=== PATIENT | male | born 1960 | race Caucasian/White ===

== ENCOUNTER 2017-10-01 12:05 | Day surgery (SDC) | payer OTHER, SELFPAY ==
--- NOTE | 2017-10-01 | HEM_PTH ---
PATIENT: SALBADOR [place]AR[place]WORTH [place] [facility] [id number] AGE/SX: 56/M ROOM: RE10/01/[address]: Dr. Bruno Parra MD : 1960 BED: DIS: 10/01/2017 SPEC #: [id number] RECD: 10/01/17 11:13 STATUS: KITTY ZULMA #: [id number] [place]: 10/01/17 00:[address]: Bruno Parra DEPT: SURGICAL PATHOLOGY RECD BY: Jose العلي ENTERED: 10/07/17 11:13 SP TYPE: HEMORRHOID OTHR DR: Dr. Kenroy Larry MD Tissues: HEMORRHOIDS Procedures: Surgery Specimen Level III HEADER OPERATION: EUA, hemorrhoidectomy PRE-OP DIAGNOSIS: Left lateral anorectal pain, rectal bleeding TISSUE SUBMITTED: Left posterior hemorrhoid MICROSCOPIC DIAGNOSIS Left posterior hemorrhoid, hemorrhoidectomy: Submucosal vascular ectasia and thrombosis consistent with hemorrhoid. AM:isiah 10/09/17 MICROSCOPIC DESCRIPTION Slides are reviewed. GROSS DESCRIPTION Received in fixative is one container labeled with the patient's name and designated hemorrhoid. The specimen consists of a piece of vazquez mucosal tissue measuring 3 x 2 x 1.5 cm. Sections reveal congested and hemorrhagic cut surfaces. Pipe And Test Supervisor sections are submitted in one cassette. / SJ:isiah 10/04/17 TC:5 CPT: 01324
[2017-10-01 12:42] VITALS: BP 135/70; PULSE 66; RESP 16; TEMP 36.7; O2SAT 99; BMI 21.9
[2017-10-01] MEDS: Dibucaine 30 GM Tube 1 APPLIC (16:44)
[2017-10-01] MEDS: Bupivacaine Mpf 0.5% 30 ML VIAL (17:35)
[2017-10-01 17:50] VITALS: BP 135/70; BP 152/80; PULSE 70; RESP 16; TEMP 36.8; O2SAT 94
--- NOTE | 2017-10-01 17:59 | PCM.OPRPT ---
Report of Operation Date of Procedure: 10/01/17 Pre-Operative Diagnosis: anal pain, rectal bleeding Post-Operative Diagnosis: left posterior mixed hemorrhoid Surgery/Procedure Performed:: examination under anesthesia, left posterior hemorrhoidectomy research hydrologist: None Type of Anesthesia:: General Anesthesiologist: Matheus Granados - ASA2 Specimen's removed: left post hemorrhoid Estimated Blood Loss (mL): 100 Fluids Replaced: 1000 Description of Procedure: The patient was brought to the operating suite. Sign in was performed verifying patient, site, procedure, position, and DVT prophylaxis with SCDs. Patient received 2.0gm of Cefotetan for antibiotic prophylaxis. Following induction of general anesthetic. The patient was transferred to supine position to the prone jackknife position with care being taken to avoid pressure points. The patients perineal area was then prepped and draped in the usual fashion. Timeout was performed verifying patient site procedure position. External examination demonstrated prolapsing hemorrhoidal tissue with an ulcerated hemorrhoidal complex is likely drained a thrombosed hemorrhoid in the left posterior position. Bi-digital exam demonstrated significant hemorrhoid with prolapsing mucosa in this left posterior quadrant and no other palpable abnormalities - specifically, no other hemorrhoidal thromboses, no inflammation or masses consistent with an undrained abscess Local anesthetic was injected around the planned excision site. The limit of the resection was marked on the lateral anoderm with a hemostat, the hemorrhoidal main complex was grasped with a Ibarra clamp and the apex grasped with a small hemostat. A scalpel was used to start the dissection on the lateral anoderm and dissection carried to the dentate line. At this point, the sphincter complex was dissected off the hemorrhoid to avoid sphincter injury bluntly. Electrocautery was then used to dissect the hemorrhoid proximal to the dentate line. A 2-0 chromic aascso-sk-uhokm suture was placed above the apex of the proximal resection. The hemorrhoidal complex transected. . The defect was then closed with a running locking suture. The dentate line transition to a simple suture. With good hemostasis, half percent Marcaine was injected in the perianal skin and dibucaine impregnated Gelfoam was placed in the anal canal. A dressing was applied and mesh pants were used to hold the dressing in place. The patient was returned to the supine position and extubated and brought to recovery room in stable condition.
[2017-10-01 18:00] VITALS: BP 135/70; BP 135/73; PULSE 70; RESP 16; O2SAT 93
--- NOTE | 2017-10-01 18:03 | DCINST_ITS ---
Discharge Diet: No Restrictions Discharge Activity: Return to Normal Activity, May Not Drive - while taking narcotic pain medications. Additional Activity Instructions:: Do not drive or work with heavy equipment or sign legal documents for 24 hours. Be aware that pain medications may cause nausea. You should typically eat light foods as you take your pain medications. Pain medications may also cause constipation, if you have difficulty with this please discuss with your doctor. Additional Dressing/Incision Instructions:: Leave the operative bandage on for 2 days. If a local anesthetic plug was placed in the anal area, try not to expel for 24-[address] dibucaine ointment on the perianal area as needed. Sitz baths twice daily and after bowel movements. Allergies/Adverse Reactions: Allergies No Known Allergies Allergy (Verified 10/01/17 08:41) Medications to take at Discharge Atorvastatin Calcium [Lipitor] 20 mg PO QHS 09/17/15 Nifedipine [Nifedipine ER] 30 mg PO DAILY 09/17/15 Hydrocodone Bitart/Apap 5-325 [[place] 5/325] 1 - 2 tab PO Q6H PRN PRN 7 Days #20 tab 10/01/17 Lorazepam [Ativan] 1 mg PO QHS 10/01/17 Omeprazole 10 mg PO PRN PRN 10/01/17 The following prescriptions were given: Hydrocodone Bitart/Apap 5-325 [[place] 5/325] 1 - 2 tab PO Q6H PRN PRN 7 Days #20 tab PRN Reason: Mild-Moderate Pain (1-5/10) Primary Care Physician: Kenroy Larry MD [Primary Care Provider] - Please Follow Up With: Bruno Parra MD - [phone] When: Plan to have a follow up approximately 7 days after surgery.
[2017-10-01 18:15] VITALS: BP 135/70; BP 177/87; PULSE 69; RESP 16; O2SAT 99
[2017-10-01 18:31] VITALS: BP 135/70; BP 165/86; PULSE 75; RESP 16; TEMP 36.7; O2SAT 96
[2017-10-01] MEDS: HYDROcodone Bitartrate/Apap 5/325 Tablet PO (18:31)
[2017-10-01] MEDS: Ketorolac 30 MG/ML Syringe IV (19:03)
[2017-10-01 19:54] VITALS: BP 135/70; BP 142/72; PULSE 73; RESP 16; TEMP 37.2; O2SAT 94
== END 2017-10-01 20:04 | disposition home or self-care (01) ==
LOC: SDC 12:06 → AC 12:07
PROVIDERS: Family Provider Family Medicine; PCP Family Medicine; Visit Provider Surgery
PROC: (CPT 46250; principal; 2017-10-01 15:15)
DX: K64.8 Other hemorrhoids (principal); E78.00 Pure hypercholesterolemia, unspecified; Z79.899 Other long term (current) drug therapy; K21.9 Gastro-esophageal reflux disease without esophagitis; G43.909 Migraine, unspecified, not intractable, without status migrainosus; L40.9 Psoriasis, unspecified; F17.210 Nicotine dependence, cigarettes, uncomplicated
CPT/HCPCS: 00902; 46250; 88304; J7120; J2405

== ENCOUNTER → 2019-02-20 10:37 | Outpatient (CLI) | payer OTHER, SELFPAY ==
--- NOTE | 2019-02-20 10:40 | RAD_ITS ---
STUDY: X-RAY - LUMBAR SPINE REASON FOR EXAM: Male, 58 years old. Low back pain TECHNIQUE: 2 view(s) of the lumbar spine were obtained. COMPARISON: None FINDINGS: Normal lumbar lordosis. There is no substantial scoliosis. There is a normal alignment of the vertebrae. Normal vertebral bodies and endplates. Mild to moderate narrowing of the disc at L5-S1 otherwise normal disc space heights. There is no demonstrated fracture. The soft tissue structures are unremarkable. RAD/Lumbar Spine 2 or 3 Views IMPRESSION: Limited 2 view study of the lumbar spine shows no acute abnormalities. Mild to moderate narrowing of the disc at L5-S1. Electronically Signed: Leroy Mcgill MD at 22:55 EDT , Service support ,
== END ==
LOC: RAD 10:39
PROVIDERS: Family Provider Family Medicine; PCP Family Medicine; Referring Provider Anesthesiology Pain Medicine; Visit Provider Anesthesiology Pain Medicine
DX: M54.9 Dorsalgia, unspecified (principal)
CPT/HCPCS: 72100

== ENCOUNTER 2019-11-22 16:30 | Outpatient (RCR) | payer OTHER, SELFPAY ==
--- NOTE | 2019-11-08 12:55 | HP.PTEVAL_ITS ---
Patient's Visit Information SALBADOR FARNSWORTH is a 58 year old M referred to Physical Therapy by ARCELIA MCKEON with a diagnosis of vertigo with migranines. Date of Evaluation: 11/08/19 Physical Therapist: LALY Finnegan - Visit Plan Frequency: 2x /Week Duration: 3 Weeks Plan: 2X/ week for 2-3 weeks for c-spine MT to mid trap, levator and subocip, trial of c-spine traction with possible US with HEPwith postural exercises. See if the MT helps with the decrease in eleanor of dizzy spells and migranes - Subjective Pt has been getting migranine PASTOR that he has had for years but now getting dizzy spells. His vision started messing with him and he started to get blury vision and in a sweat. He went to get out of the car and he was moving all over the place. He has been getting PASTOR between his eyes. Everytime afer the dizzy spells he gets a migrane and he gets tired after.... He can be walking down the hallways and he feels like he is spinning. He has been getting mild cases almost everyday. They last a couple of minutes but he gets anxious about. He is not on migrane meds.... He has seen a neurologist and they put him on the meds for one day and he got a rash from it and he is to stay off of it for 1 week and then they will put him on something else. Dr Larry thinks this is coming from the migraines. He will go on a different med in about a week from now. He is still itching from the rash. On the way here he was driving he could feel something from between his eyes and feel like his neck was tightening up. He is wondering if he is starting to have an anxiety issue. R sided neck pain from time to time and up into the occiput... not sure if it is stress or what. - Pain PASTOR Pain Intensity (Out of 10): 2 - Objective R handed: R 95# and L 75#. Smooth pursuit horizontal... increase head pressure after 30 sec.. possible slight fatigue at the end. Smooth pursuit vertical... goood tracking.... he could feel a pressure at the top of his head after 30 seconds. Vor X 1 horizontal: no dizziness. VOR X1 vertical: No dizziness. Neck AROM: flex 100%, Ext 25%, SB B 50%, Rot R 100% and Rot L 75%. UE AROM: Full B shoulder AROM. UE MMT: Shld flx, abd, ER and IR 4/5 B. Palpation: Tender over the R occiput.... Very tight mid trap and levator B. FGA 28/30. CATSIB 120/120 - Balance Scores Functional Gait Assessment Score: 28 % Disability: 6.6700 CATSIB Score (Max score 120 seconds): 120 - Goals Goal 1:: I HEP Goal Time Frame: 4-6 Weeks Goal 2:: Increase c-spine AROM by 25% where avaiaable (at time of eval: Neck AROM: flex 100%, Ext 25%, SB B 50%, Rot R 100% and Rot L 75%) Goal Time Frame: 4-6 Weeks Goal 3:: Decrease freq of dizziness spells from daily to 2 X/ week Goal Time Frame: 4-6 Weeks Goal 4:: Decrease neck tightess thomas the R by 50% per subjective Goal Time Frame: 4-6 Weeks - Rehabilitation Potential Rehabilitation Potential: Good - Anticipated Interventions Patient/Client Instruction: Educate patient on: Condition, Plan of Care For the Purpose of:: To decrease pain, To increase ROM, To improve nutrient delivery to tissue, To improve muscle performance and motor function, To improve ability to perform ADL's, To increase tolerance to activity/condition/position, To decrease soft tissue restriction, To increase flexibility/ROM Therapeutic Exercise to Include: Strength training, Postural training, Flexibilty training, Passive ROM, Active ROM, Scapular Strength/Stabilization For the Purpose of:: To decrease pain, To increase ROM, To improve nutrient delivery to tissue, To improve muscle performance and motor function, To improve ability to perform ADL's, To increase tolerance to activity/condition/position, To improve performance and independence with ADL's, To improve health of tissue, To increase flexibility/ROM Manual Therapy Techniques to Include: Passive ROM, Soft tissue mobilization For the Purpose of:: To decrease pain, To decrease swelling/inflammation, To increase ROM, To improve nutrient delivery to tissue, To decrease soft tissue restriction, To increase flexibility/ROM Ultrasound (thermal/non thermal): Yes Intermittent cervical traction: Yes For the Purpose of:: To decrease pain, To decrease swelling/inflammation, To increase ROM, To improve nutrient delivery to tissue, To improve health of tissue, To increase flexibility/ROM Thank you for the opportunity to evaluate your patient. For Medicare and Medicare HMO plans, please review the plan of care and approve it. It will need to be FAXED BACK to us at [phone] for Medicare purposes. For Medicare only, by signing this I certify the plan of care. Please let me know if there are questions or concerns regarding this plan of care. Physician Signature: _Date:
--- NOTE | 2020-01-31 11:41 | HP.PT.NRP ---
SALBADOR FARNSWORTH was seen in my office for initial evaluation on 11/08/19. The following Plan of Care was established for this patient: Initial Frequency: 2x /Week Initial Duration: 3 Weeks Patient/Client Instruction: Educate patient on: Condition, Plan of Care For the Purpose of:: To decrease pain, To increase ROM, To improve nutrient delivery to tissue, To improve muscle performance and motor function, To improve ability to perform ADL's, To increase tolerance to activity/condition/position, To decrease soft tissue restriction, To increase flexibility/ROM Therapeutic Exercise to Include: Strength training, Postural training, Flexibilty training, Passive ROM, Active ROM, Scapular Strength/Stabilization For the Purpose of:: To decrease pain, To increase ROM, To improve nutrient delivery to tissue, To improve muscle performance and motor function, To improve ability to perform ADL's, To increase tolerance to activity/condition/position, To improve performance and independence with ADL's, To improve health of tissue, To increase flexibility/ROM Manual Therapy Techniques to Include: Passive ROM, Soft tissue mobilization For the Purpose of:: To decrease pain, To decrease swelling/inflammation, To increase ROM, To improve nutrient delivery to tissue, To decrease soft tissue restriction, To increase flexibility/ROM Ultrasound (thermal/non thermal): Yes Intermittent cervical traction: Yes For the Purpose of:: To decrease pain, To decrease swelling/inflammation, To increase ROM, To improve nutrient delivery to tissue, To improve health of tissue, To increase flexibility/ROM This patient was last seen in our office 11/22/19. Pertinent comments regarding their Physical therapy will appear below: DC PT... Pt no showed for his last appointment At this point I will be discontinuing this patient from physical therapy. I would be happy to see this patient again in the future if found appropriate by the physician. Thank you! Radha Jiménez, MPT
== END 2019-11-22 19:00 | disposition home or self-care (01) ==
LOC: PT 16:30
PROVIDERS: PCP Family Medicine
DX: G43.719 Chronic migraine without aura, intractable, without status migrainosus (principal); R42 Dizziness and giddiness
CPT/HCPCS: 97035; 97140; 97161

== ENCOUNTER 2020-07-09 23:20 | Outpatient (RCR) | payer OTHER, SELFPAY ==
[2020-07-09] MEDS: COVID-19 VACC, MRNA(PFIZER)/PF 30 MCG/0.3 ML SYRINGE IM (18:57)
[2020-07-30] MEDS: COVID-19 VACC, MRNA(PFIZER)/PF 30 MCG/0.3 ML SYRINGE IM (18:31)
== END 2020-10-08 23:59 ==
LOC: IMMUN 23:20
PROVIDERS: PCP Family Medicine; Visit Provider Family Medicine
DX: Z23 Encounter for immunization (principal)
CPT/HCPCS: 0001A; 0002A; 91300

== ENCOUNTER 2020-09-20 15:42 | Emergency (ER) | payer OTHER, SELFPAY ==
[2020-09-20 15:43] VITALS: BP 124/73; PULSE 88; RESP 16; TEMP 37.2; O2SAT 98; BMI 22.6
--- NOTE | 2020-09-20 16:04 | CT_ITS ---
STUDY: CT ABDOMEN AND PELVIS WITH CONTRAST REASON FOR EXAM: Male, 59 years old. Abdominal pain -- IV PO Contrast RADIATION DOSAGE (If Supplied By Facility): CTDIvol = ( 12.14 ) mGy, DLP = ( 738.26 ) mGycm TECHNIQUE: Transaxial images were obtained from the dome of the diaphragm to the symphysis pubis with oral contrast. Oral and amp; IV Gastrografin and amp; 100mL Isovue-300 was administered. Sagittal and coronal images were reconstructed. Individualized dose optimization techniques were used for this CT. COMPARISON: None. FINDINGS: The visualized lung bases are unremarkable. The visualized portions of the heart are within normal limits. Normal liver. Normal gallbladder and extrahepatic biliary system. Normal spleen. Normal pancreas. Normal bilateral adrenal glands. Normal right kidney. Normal left kidney with incidental 1.2 cm mid renal cyst. Normal visualized stomach. Normal small intestine. There is acute diverticulitis of the sigmoid colon with perisigmoid stranding and possibly tiny microperforations. No gross abscess. There is probable secondary inflammation of the horizontal portion of the duodenum which is adjacent to the sigmoid diverticulitis. The appendix is visualized and appears normal. Normal abdominal aorta. Normal inferior vena cava. Normal retroperitoneum. Normal urinary bladder. There is enlargement of the prostate gland. Normal abdominal wall. Normal osseous structures. CT/Abdomen/Pelvis WITH Contrast IMPRESSION: Acute mid sigmoid diverticulitis possibly with localized perforations. No evidence for abscess. Electronically Signed: Leroy Mcgill MD at 18:07 EDT , Service support ,
--- NOTE | 2020-09-20 16:05 | EDS_ITS ---
HPI History of Present Illness Chief Complaint: Abd Pain Informant: patient Onset/Context/Timing Onset: Yesterday Context: Gradual Onset Current Severity: Mild Maximum Severity: Moderate Narrative Narrative: Patient presents to urgent care secondary to lower abdominal pain. Pain started yesterday. He states his urine stream is weaker than normal. He also has some chronic back pain but is unable to relate if the pain wraps around into his abdomen. Patient did have a urinalysis done at urgent care that did not show any blood in the urine. He was sent here for further evaluation and possible CT scan. [facility] Medical History Arthritis GERD (gastroesophageal reflux disease) Heart murmur Hypertension Polycythemia Psoriasis Home Medications atorvastatin 20 mg PO QHS 09/17/15 [History Last Taken Unknown] nifedipine 30 mg PO DAILY 09/17/15 [History Last Taken Unknown] lorazepam 1 mg PO QHS 10/01/17 [History Last Taken Unknown] omeprazole 10 mg PO PRN PRN 10/01/17 [History Last Taken Unknown] aspirin 81 mg PO DAILY 09/20/20 [History Last Taken Unknown] diltiazem HCl 120 mg PO DAILY 09/20/20 [History Last Taken Unknown] fluoxetine 20 mg PO DAILY 09/20/20 [History Last Taken Unknown] hydroxyzine HCl 25 mg PO QHS 09/20/20 [History Last Taken Unknown] ixekizumab [Taltz Autoinjector] 80 mg SUBCUT QMONTH 09/20/20 [History Last Taken Unknown] meloxicam 15 mg PO DAILY 09/20/20 [History Last Taken Unknown] metronidazole [Flagyl] 500 mg PO Q12H #20 tab 09/20/20 [Rx Last Taken Unknown] oxycodone-acetaminophen [Percocet] 1 tab PO Q6H PRN 3 Days #10 tab 09/20/20 [Rx Last Taken Unknown] rizatriptan 10 mg PO PRN PRN 09/20/20 [History Last Taken Unknown] sulfamethoxazole-trimethoprim [Bactrim DS] 1 tab PO BID #20 tab 09/20/20 [Rx Last Taken Unknown] Allergy/AdvReac Type Severity Reaction Status Date / Time No Known Allergies Allergy Verified 10/01/17 08:41 Social History Smoking Status: Current every day smoker ROS ROS ED Constitutional Constitutional ED: Denies chills or fever(s) Eyes Eyes: Denies change in vision ENT ENT ED: Denies sore throat Cardiovascular Cardiovascular: Denies chest pain Respiratory/Chest Respiratory/Chest: Denies cough or dyspnea Gastrointestinal Gastrointestinal: Reports abdominal pain; Denies diarrhea, nausea or vomiting Genitourinary Genitourinary ED: Denies dysuria Musculoskeletal Musculoskeletal: Reports back pain Integumentary Denies rash Neurologic Neurologic: Denies headache(s) or weakness Psychiatric Psychiatric: Denies anxiety or depression Endocrine Endocrinology: Denies polydipsia or polyuria Allergic/Immunologic Allergic/Immunologic ED: Denies urticaria EXAM Physical Exam Const Vital Signs: 09/20/20 15:43 Temperature 99 F Temperature Source Temporal Pulse Rate 88 Respiratory Rate 16 Blood Pressure 124/73 H Blood Pressure Mean 90 Pulse Ox 98 Oxygen Delivery Method Room Air Positive well nourished and well developed General Appearance ED: well developed HEENT Reports normocephalic and head/scalp atraumatic Eyes PERRL and EOMs intact bilaterally Neck supple Chest Wall inspection of chest normal and palpation of chest normal Resp normal respiratory effort and clear to auscultation bilaterally Cardio regular rate and regular rhythm GI normal to inspection, nondistended, normoactive bowel sounds Palpation: soft and tender LLQ Back/Spine no CVA tenderness Extremity normal to inspection Neuro oriented x3 and no sensory deficits noted Sensorium / Orientation: alert Motor Exam: strength 5/5 throughout Psych mental status grossly normal Skin no rashes or lesions noted MDM MDM MDM Narrative Medical decision making narrative: Patient was given morphine and Zofran for pain and nausea. Blood work is obtained. White count is mildly elevated. CT scan with contrast reveals sigmoid diverticulitis with possibly small microperforations. Lab Data Attestation: I reviewed the patient's lab results. Labs: Laboratory Results - last 24 hr 09/20/20 09/20/20 16:15 16:15 WBC 11.5 H RBC 6.36 H Hgb 15.3 Hct 51.3 MCV 80.7 MCH 24.1 L MCHC 29.8 L RDW Std Deviation 56.9 H RDW Coeff of Eze 21.2 H Plt Count 317 MPV 9.3 Immature Gran % (Auto) 0.500 Neut % (Auto) 84.6 H Lymph % (Auto) 8.6 L Dupage % (Auto) 5.1 Eos % (Auto) 0.6 Baso % (Auto) 0.6 Absolute Neuts (auto) 9.7 H Absolute Lymphs (auto) 0.99 Nucleated RBC % 0 Differential Comment SCANNED Sodium 137 Potassium 3.8 Chloride 105 Carbon Dioxide 28.0 Anion Gap 4 L BUN 14 Creatinine 1.10 Estim Creat Clear Calc 82.65 Est GFR (MDRD) Af Amer 88 Est GFR (MDRD) Non-Af 73 BUN/Creatinine Ratio 12.7 Glucose 99 Calcium 8.9 Radiography Diagnostic Testing: Radiology Impression Abdomen/Pelvis CT 09/20/20 16:04 IMPRESSION: Acute mid sigmoid diverticulitis possibly with localized perforations. No evidence for abscess. Electronically Signed: Leroy Mcgill MD at 18:07 EDT , Service support , Treatment and Re-Evaluation Comments:: Test results are discussed with Dr. Sanford. She reviewed the CT images. She states that if the patient's pain is controllable he could be treated at home after dose of IV Levaquin. He will be treated with Bactrim and Flagyl at home and given strict instructions to follow clear liquid diet. She will see him in the office at 830 on Wednesday morning. If his pain is poorly controlled or if he has any complications over the weekend he is to return for admission. Patient is in agreement with this plan. Discharge Plan Triage Chief Complaint: Abd Pain ED Provider: Ambreen Xavier Dx/Rx/DC Orders Clinical Impression: Diverticulitis Instructions: ED Diverticulitis Prescriptions: New sulfamethoxazole-trimethoprim [Bactrim DS] 800-160 mg tablet 1 tab PO BID Qty: 20 RF: 0 metronidazole [Flagyl] 500 mg tablet 500 mg PO Q12H Qty: 20 RF: 0 oxycodone-acetaminophen [Percocet] 5-325 mg tablet 1 tab PO Q6H PRN (Reason: pain) 3 Days Qty: 10 RF: 0 Discontinued hydrocodone-acetaminophen 1 TABLET tablet 1 - 2 tab PO Q6H PRN PRN (Reason: Mild-Moderate Pain (1-5/10)) 7 Days Qty: 20 RF: 0 No Action atorvastatin 20 MG tablet 20 mg PO QHS RF: 0 nifedipine 30 MG tablet extended release 30 mg PO DAILY RF: 0 omeprazole 10 MG capsule,delayed release(DR/EC) 10 mg PO PRN PRN (Reason: gerd) RF: 0 lorazepam 1 MG tablet 1 mg PO QHS RF: 0 meloxicam 15 mg tablet 15 mg PO DAILY RF: 0 aspirin 81 mg tablet,delayed release (DR/EC) 81 mg PO DAILY RF: 0 diltiazem HCl 120 mg capsule,extended release 24hr 120 mg PO DAILY RF: 0 hydroxyzine HCl 25 mg tablet 25 mg PO QHS RF: 0 Taltz Autoinjector 80 mg/mL auto-injector 80 mg SUBCUT QMONTH RF: 0 rizatriptan 10 mg tablet,disintegrating 10 mg PO PRN PRN (Reason: Migraine Headache) RF: 0 fluoxetine 20 mg capsule 20 mg PO DAILY RF: 0 Primary Care Provider: Kenroy Larry Referrals: Bhargavi Sanford MD [STAFF PHYSICIAN] - 09/23/20 8:30 am Kenroy Larry MD [Primary Care Provider] - Disposition Disposition: Home, self care
[2020-09-20] MEDS: Ondansetron 4 MG/2 ML Vial IV (16:14)
[2020-09-20] MEDS: 0.9% Normal Saline 1,000 ML 150 ML IV (16:14)
[2020-09-20] MEDS: Morphine 4 MG/ML Syringe IV ×2 (16:14→20:40)
[2020-09-20 16:25] LABS: Absolute Lymphocyte Count 0.99 X10^3/uL (0.83-4.51); Absolute Neutrophil Count 9.7 X10^3/uL (2.0-7.7); Basophil# 0.07 X10^3/uL; Basophil% 0.6 % (0-1); Eosinophil# 0.07 X10^3/uL; Eosinophils% 0.6 % (0-5); Hematocrit 51.3 % (40-54); Hemoglobin 15.3 g/dL (13.0-16.5); Lymphocyte # 0.99 X10^3/ul (0.83-4.51); Lymphocyte % 8.6 % (19-41); Mean Corp Hgb Conc 29.8 g/dL (32-36); Mean Corpuscular Hgb 24.1 pg (27.0-32.0); Mean Corpuscular Volume 80.7 fL (80-94); Mean Platelet Vol. 9.3 fl (6.2-12.0); Monocyte# 0.59 X10^3/uL; Monocyte% 5.1 % (0-10); NRBC Flagged by Analyzer 0 % (0-5); Neutrophil % 84.6 % (47-70); POSITIVE MORPHOLOGY YES; Platelet Count 317 K/mm3 (150-450); RBC Distribution Width CV 21.2 % (11.6-14.6); RBC Distribution Width SD 56.9 fl (35.1-43.9); Red Blood Count 6.36 M/mm3 (4.6-6.2); White Blood Count 11.5 K/mm3 (4.4-11.0)
[2020-09-20 16:26] LABS: Differential Indicated SCAN CRITERIA MET
[2020-09-20 16:37] LABS: BUN 14 mg/dL (7-18); Glucose 99 mg/dL (74-106)
[2020-09-20 16:38] LABS: Anion Gap 4 (5-15); BUN/Creat Ratio 12.7 RATIO (10-20); Calcium,Total 8.9 mg/dL (8.5-10.1); Chloride 105 mmol/L (98-107); EST Glomerular Filtration Rate 73 mL/min (>60); Est Glom Filt Rate - Afr Amer 88 mL/min (>60); Estimated Creatinine Clearance 82.65 ml/min; Potassium 3.8 mmol/L (3.5-5.1); Sodium Level 137 mmol/L (136-145)
[2020-09-20 16:45] LABS: Differential Comment SCANNED
[2020-09-20 17:43] VITALS: RESP 16
[2020-09-20] MEDS: oxyCODONE 5 MG Tablet PO (18:45)
[2020-09-20] MEDS: levoFLOXacin IV 750 MG/150 ML BAG 100 MG IV (18:45)
[2020-09-20 19:20] VITALS: BP 136/68; PULSE 78; RESP 16; O2SAT 95
[2020-09-20 20:45] VITALS: PULSE 74; RESP 16; TEMP 37.4; O2SAT 98
== END 2020-09-20 21:11 | disposition home or self-care (01) ==
PROVIDERS: Emergency Provider Emergency Medicine; PCP Family Medicine
DX: K57.32 Diverticulitis of large intestine without perforation or abscess without bleeding (principal); I10 Essential (primary) hypertension; L40.9 Psoriasis, unspecified; K21.9 Gastro-esophageal reflux disease without esophagitis; M19.90 Unspecified osteoarthritis, unspecified site; G89.29 Other chronic pain; Z86.2 Personal history of diseases of the blood and blood-forming organs and certain disorders involving the immune mechanism; Z79.82 Long term (current) use of aspirin; Z79.899 Other long term (current) drug therapy; F17.200 Nicotine dependence, unspecified, uncomplicated
CPT/HCPCS: 74177; 80048; 85025; 96361; 96365; 96366; 96374; 96375; 96376; 99284; J7030; Q9967; A4216; J2405

== ENCOUNTER 2020-11-11 09:59 | Emergency (ER) | payer MEDICAID, SELFPAY ==
[2020-11-11 09:59] VITALS: BP 164/78; PULSE 65; RESP 18; TEMP 36.3; O2SAT 98; BMI 22.1
--- NOTE | 2020-11-11 10:23 | ED.VIS.BACK ---
HPI History of Present Illness Chief Complaint: Back Informant: patient Onset/Context/Timing Onset: Days Timing: Continuous Quality: Sharp and Aching Current Severity: Moderate Maximum Severity: Moderate Associated Symptoms Associated Symptoms: Radiation to Right Leg; Negative for Numbness, Tingling, Radiation to Left Leg, Fever, Abdominal Pain, Dysuria, Unable to Ambulate, Unable to Transfer and Urinary Retention Narrative Narrative: 51-year-old male no severe past medical history. Patient states the last 2 weeks has had low back pain now radiating to his right leg. He was seen by a PA at the [facility] up with him on Flexeril as a muscle relaxant and prednisone. He said he had no relief. In the past he has seen pain management. He denies any prior back surgery. He denies any significant trauma. No weakness. No bowel or bladder incontinence. No fever. Prior similar symptoms: No Recent Illness/Hospitalization: No [facility] Medical History Arthritis GERD (gastroesophageal reflux disease) Heart murmur Hypertension Polycythemia Psoriasis Home Medications atorvastatin 20 mg PO QHS 09/17/15 [History Last Taken Unknown] nifedipine 30 mg PO DAILY 09/17/15 [History Last Taken Unknown] lorazepam 1 mg PO QHS 10/01/17 [History Last Taken Unknown] omeprazole 10 mg PO PRN PRN 10/01/17 [History Last Taken Unknown] aspirin 81 mg PO DAILY 09/20/20 [History Last Taken Unknown] diltiazem HCl 120 mg PO DAILY 09/20/20 [History Last Taken Unknown] fluoxetine 20 mg PO DAILY 09/20/20 [History Last Taken Unknown] hydroxyzine HCl 25 mg PO QHS 09/20/20 [History Last Taken Unknown] ixekizumab [Taltz Autoinjector] 80 mg SUBCUT QMONTH 09/20/20 [History Last Taken Unknown] meloxicam 15 mg PO DAILY 09/20/20 [History Last Taken Unknown] metronidazole [Flagyl] 500 mg PO Q12H #20 tab 09/20/20 [Rx Last Taken Unknown] oxycodone-acetaminophen [Percocet] 1 tab PO Q6H PRN 3 Days #10 tab 09/20/20 [Rx Last Taken Unknown] rizatriptan 10 mg PO PRN PRN 09/20/20 [History Last Taken Unknown] sulfamethoxazole-trimethoprim [Bactrim DS] 1 tab PO BID #20 tab 09/20/20 [Rx Last Taken Unknown] hydrocodone-acetaminophen 1 tab PO Q4H PRN 5 Days #14 tab 11/11/20 [Rx Last Taken Unknown] Allergy/AdvReac Type Severity Reaction Status Date / Time verapamil Allergy Rash Verified 11/11/20 10:02 Social History Smoking Status: Current every day smoker tobacco type: cigarettes ROS ROS ED ROS Narrative Denies. Review of Systems ROS Unobtainable: Denies due to encephalopathy Constitutional Constitutional ED: Denies chills or fever(s) Eyes Eyes: Denies change in vision ENT ENT ED: Denies ear pain or sore throat Cardiovascular Cardiovascular: Denies chest pain or palpitations Respiratory/Chest Respiratory/Chest: Denies dyspnea or sputum Gastrointestinal Gastrointestinal: Denies abdominal pain, constipation, diarrhea, nausea or vomiting Genitourinary Genitourinary ED: Denies dysuria or hematuria Musculoskeletal Musculoskeletal: Reports back pain; Denies arthralgias or myalgias Integumentary Denies abscess or rash Neurologic Neurologic: Denies headache(s) Psychiatric Psychiatric: Denies depression Endocrine Endocrinology: Denies polyuria Hematologic/Lymphatic Hematologic/Lymphatic: Denies easy bruising Allergic/Immunologic Allergic/Immunologic ED: Denies urticaria EXAM Physical Exam Narrative Exam Narrative: Middle-age male complaining of right lower back and right lateral leg pain. Vital signs stable afebrile. Back exam there is no spine tenderness. There is minimal if any right SI joint tenderness. Left is unremarkable. He has worsening pain when he lifts his right leg. He is got normal motor strength to both lower extremities. Full range of motion of both hips knees and ankles. 5 out of 5 dorsi plantar flexion. No cauda equina. Normal medial thigh and lower leg sensation. The pain radiates to the lateral side of his right leg not down his hamstring. There are no signs of muscle spasm. Rest of exam is normal. Abdomen soft and nontender. Const Vital Signs: 11/11/20 09:59 Temperature 97.4 F L Temperature Source Temporal Pulse Rate 65 Respiratory Rate 18 Blood Pressure 164/78 H Blood Pressure Mean 106 Pulse Ox 98 Oxygen Delivery Method Room Air Positive well nourished and well developed General Appearance ED: well developed HEENT Reports moist mucous membranes Negative for trauma or tenderness Eyes PERRL and EOMs intact bilaterally Neck no lymphadenopathy, supple and no JVD General: Negative for tenderness Resp normal respiratory effort and clear to auscultation bilaterally Effort and Inspection: Negative for pain with movement Cardio regular rate, regular rhythm and no murmurs Cardio Narrative: 4-6 systolic murmur. GI normal to inspection, nondistended, normoactive bowel sounds, soft to palpation, non-tender, non-distended and no masses Inspection: Negative for abdominal distention Auscultation: Negative for hyperactive bowel sounds Palpation: Negative for tender, guarding or rebound tenderness present Back/Spine normal to inspection and no thoracic nor lumbar tenderness General Back: Negative for CVA tenderness or scar(s) Cervical Spine: Negative for cervical spine tenderness and Negative for paracervical muscle tenderness Thoracic Spine / Upper Back: Negative for paraspinal muscle tenderness Lumbar Spine / Lower Back: Negative for straight leg raise negative bilaterally Extremity normal to inspection; Negative for no clubbing, cyanosis or edema General Extremety ED: Negative for edema or tenderness General Extremity: Negative for edema Neuro oriented x3 and no sensory deficits noted Sensorium / Orientation: alert; Negative for confused, lethargic or stuporous Motor Exam: strength 5/5 throughout; Negative for strength abnormal Psych mental status grossly normal Skin no rashes or lesions noted and no wounds MDM MDM MDM Narrative Medical decision making narrative: Patient has right lateral back and leg pain. This i will be given an IM injection of Dilaudid and Toradol. Discharged with limited Lenorah and follow-up with pain management. S not specific for sciatica. He has no reproducible soft tissue tenderness this does not appear to be muscle spasms. I do not think imaging is necessary at this time he has had no trauma. Discharge Plan Triage Chief Complaint: Back ED Provider: Cody Hayden Dx/Rx/DC Orders Instructions: ED Back Pain (Acute or Chronic) Prescriptions: New hydrocodone-acetaminophen 5-325 mg tablet 1 tab PO Q4H PRN (Reason: pain) 5 Days Qty: 14 RF: 0 No Action atorvastatin 20 MG tablet 20 mg PO QHS RF: 0 nifedipine 30 MG tablet extended release 30 mg PO DAILY RF: 0 omeprazole 10 MG capsule,delayed release(DR/EC) 10 mg PO PRN PRN (Reason: gerd) RF: 0 lorazepam 1 MG tablet 1 mg PO QHS RF: 0 meloxicam 15 mg tablet 15 mg PO DAILY RF: 0 aspirin 81 mg tablet,delayed release (DR/EC) 81 mg PO DAILY RF: 0 diltiazem HCl 120 mg capsule,extended release 24hr 120 mg PO DAILY RF: 0 hydroxyzine HCl 25 mg tablet 25 mg PO QHS RF: 0 Taltz Autoinjector 80 mg/mL auto-injector 80 mg SUBCUT QMONTH RF: 0 rizatriptan 10 mg tablet,disintegrating 10 mg PO PRN PRN (Reason: Migraine Headache) RF: 0 fluoxetine 20 mg capsule 20 mg PO DAILY RF: 0 sulfamethoxazole-trimethoprim [Bactrim DS] 800-160 mg tablet 1 tab PO BID Qty: 20 RF: 0 metronidazole [Flagyl] 500 mg tablet 500 mg PO Q12H Qty: 20 RF: 0 oxycodone-acetaminophen [Percocet] 5-325 mg tablet 1 tab PO Q6H PRN (Reason: pain) 3 Days Qty: 10 RF: 0 Primary Care Provider: Kenroy Larry Referrals: Malinda Calvert MD [STAFF PHYSICIAN] - As soon as possible Kenroy Larry MD [Primary Care Provider] - 1 Week if not improving Activity Restrictions/Additional Instructions: Follow-up with Dr. Calvert for pain management. You can stop using the mop muscle relaxant will not help you. You can continue using the prednisone or stop it and use Motrin or Advil. I wrote you a limited prescription of Lenorah. You can use those for more severe pain. If that is not improving you need further evaluation. Imaging and lab work today are not necessary. Disposition Disposition: Home, Self Care
[2020-11-11] MEDS: HYDROmorphone 1 MG/ML Syringe IM (10:43)
[2020-11-11] MEDS: Ketorolac 60 MG/2 ML Vial IM (10:43)
== END 2020-11-11 10:52 | disposition home or self-care (01) ==
LOC: ED 10:42
PROVIDERS: Emergency Provider Emergency Medicine; PCP Family Medicine
DX: M54.5 Low back pain (principal); M79.604 Pain in right leg; I10 Essential (primary) hypertension; K21.9 Gastro-esophageal reflux disease without esophagitis; M19.90 Unspecified osteoarthritis, unspecified site; Z79.82 Long term (current) use of aspirin; Z79.899 Other long term (current) drug therapy; F17.210 Nicotine dependence, cigarettes, uncomplicated
CPT/HCPCS: 96372; 99282

== ENCOUNTER → 2020-12-02 16:06 | Outpatient (CLI) | payer MEDICAID, SELFPAY ==
[2020-11-11 09:59] VITALS: BMI 22.1
--- NOTE | 2020-12-02 16:10 | RAD_ITS ---
EXAM: XR LUMBOSACRAL SPINE, 2 OR 3 VIEWS : 1960 CLINICAL INDICATION: BACK PAIN TECHNIQUE: Frontal and lateral views of the lumbar spine and sacrum. This report was created using [employer] report [employer] technology. COMPARISON: None. FINDINGS: VERTEBRAE: Unremarkable. Preserved vertebral body height. No fracture. No spondylolisthesis. Preservation of the normal lumbar lordosis. No significant facet arthropathy. DISC SPACES: No acute findings. Disc spaces are maintained. GASTROINTESTINAL TRACT: Unremarkable as visualized. Included bowel gas pattern is non-obstructive. RAD/Lumbar Spine 2 or 3 Views IMPRESSION: No evidence of lumbar spinal fracture or spondylolisthesis. at 1808 Reported and signed by: Manfred Vance MD Electronically Signed: Manfred Vance MD at 18:07 EDT Tel , Service support ,
== END ==
PROVIDERS: PCP Family Medicine; Referring Provider Anesthesiology Pain Medicine; Visit Provider Anesthesiology Pain Medicine
DX: M54.5 Low back pain (principal)
CPT/HCPCS: 72100

== ENCOUNTER → 2021-01-27 13:35 | Outpatient (CLI) | payer MEDICAID, SELFPAY ==
--- NOTE | 2021-01-27 13:37 | RAD_ITS ---
STUDY: X-RAY - RIGHT KNEE REASON FOR EXAM: Right knee pain. TECHNIQUE: 4 view(s) of the knee. COMPARISON: None. FINDINGS: Normal visualized distal femur. Normal visualized proximal tibia and fibula. Normal proximal tibiofibular articulation. There is mild joint space narrowing of the medial femorotibial compartment. There is mild joint space narrowing of the lateral femorotibial compartment. Normal patellofemoral articulation. There is an enthesophyte at the superior pole of the patella. RAD/Knee 4 or More Views IMPRESSION: Mild arthrosis of the medial and lateral femorotibial compartments. Electronically Signed: Aníbal Anderson MD at 14:30 EDT Tel , Service support ,
== END ==
PROVIDERS: PCP Family Medicine; Referring Provider Anesthesiology Pain Medicine; Visit Provider Anesthesiology Pain Medicine
DX: M25.561 Pain in right knee (principal)
CPT/HCPCS: 73564

== ENCOUNTER → 2021-02-19 06:33 | Outpatient (CLI) | payer MEDICAID, SELFPAY ==
--- NOTE | 2021-02-19 06:42 | MRI_ITS ---
STUDY: MRI LUMBAR SPINE WITHOUT CONTRAST REASON FOR EXAM: Male, 60 years old. BACK PAIN, LEG PAIN R and gt;L TECHNIQUE: Standardized fat and water weighted pulse sequences were obtained in the sagittal and axial planes. COMPARISON: X-ray 12/02/2020 FINDINGS: T12-L1: Normal endplates. Normal disc height, hydration and morphology. Normal bilateral facet joints. Normal central canal and bilateral lateral recesses. Normal bilateral intervertebral neural foramina. Normal lumbar lordosis. There is no substantial scoliosis. Normal conus medullaris that terminates at the L1. L1-2: Normal endplates. Normal disc height, hydration and morphology. Normal bilateral facet joints. Normal central canal and bilateral lateral recesses. Normal bilateral intervertebral neural foramina. L2-3: Normal endplates. Normal disc height, hydration and morphology. Normal bilateral facet joints. Normal central canal and bilateral lateral recesses. Normal bilateral intervertebral neural foramina. L3-4: Normal endplates. Normal disc height, hydration and morphology. Normal bilateral facet joints. Normal central canal and bilateral lateral recesses. Normal bilateral intervertebral neural foramina. L4-5: Mild bilateral facet hypertrophy with fluid in the facet joints consistent with instability and moderate ligament hypertrophy. 2 mm retrolisthesis of L4 on L5 with a mild broad disc protrusion produces moderate spinal stenosis with moderate lateral recess stenosis with abutment of the L5 nerve roots bilaterally and moderate bilateral neural foraminal stenosis. L5-S1: Mild broad disc protrusion produces mild spinal stenosis with mild bilateral lateral recess stenosis and moderate bilateral neural foraminal stenosis with abutment of the exiting L5 nerve roots laterally. Normal visualized sacral ala. Normal visualized paraspinous soft tissue structures. MRI/Spine Lumbar (Routine) IMPRESSION: Multilevel degenerative changes, as described above. Electronically Signed: Bruno Salcedo MD at 9:54 EDT Tel , Service support ,
== END ==
PROVIDERS: PCP Family Medicine; Referring Provider Anesthesiology Pain Medicine; Visit Provider Anesthesiology Pain Medicine
DX: M54.9 Dorsalgia, unspecified (principal); M79.606 Pain in leg, unspecified
CPT/HCPCS: 72148

== ENCOUNTER 2021-03-09 12:07 | Emergency (ER) | payer MEDICAID, SELFPAY ==
[2021-03-09 12:08] VITALS: BP 132/80; PULSE 96; RESP 16; TEMP 36.6; O2SAT 98; BMI 21.8
--- NOTE | 2021-03-09 12:40 | CT_ITS ---
STUDY: CT ABDOMEN AND PELVIS WITH CONTRAST REASON FOR EXAM: Male, 60 years old. Abdominal pain diverticulitis evaluation RADIATION DOSAGE (If Supplied By Facility): CTDIvol = ( 13.43 ) mGy, DLP = ( 722.10 ) mGycm TECHNIQUE: CT images were obtained from the dome of the diaphragm to the symphysis pubis without oral contrast. IV 100mL Isovue-[id number] was administered. Sagittal and coronal images were reconstructed. Individualized dose optimization techniques were used for this CT. COMPARISON: 20 Sep 2020 FINDINGS: There are ill-defined groundglass opacities in the lower bases, incompletely evaluate, possibly infectious versus atelectasis. Normal liver. Normal gallbladder and extrahepatic biliary system. Normal spleen. Normal pancreas. Normal bilateral adrenal glands. Normal right kidney. Normal left kidney. There is no intestinal obstruction. There is moderately extensive diverticulitis of the sigmoid without abscess. Appendix is normal. Normal abdominal aorta. Normal inferior vena cava. Normal retroperitoneum. Normal urinary bladder. Normal abdominal wall. Normal osseous structures. CT/Abdomen/Pelvis W IV Cont ONLY IMPRESSION: Moderately extensive sigmoid diverticulitis, no abscess. Ill-defined lung opacities, probably atelectasis/scarring. Consider virological testing. Electronically Signed: Murphy Prince MD at 15:28 EST Tel , Service support ,
--- NOTE | 2021-03-09 12:42 | EX.ED.DYSGE1 ---
HPI History of Present Illness Chief Complaint: Abd Pain Informant: patient Narrative Narrative: 60-year-old male presents emergency department with left lower quadrant abdominal pain. He noted some mild discomfort yesterday but states this morning it was significantly more worse. Notes history of diverticulitis and believes this feels similar. He denies any blood in the stool. No urinary symptoms. No fevers. [facility] Medical History Arthritis GERD (gastroesophageal reflux disease) Heart murmur Hypertension Polycythemia Psoriasis Home Medications atorvastatin 20 mg PO QHS 09/17/15 [History Last Taken Unknown] nifedipine 30 mg PO DAILY 09/17/15 [History Last Taken Unknown] lorazepam 1 mg PO QHS 10/01/17 [History Last Taken Unknown] omeprazole 10 mg PO PRN PRN 10/01/17 [History Last Taken Unknown] aspirin 81 mg PO DAILY 09/20/20 [History Last Taken Unknown] diltiazem HCl 120 mg PO DAILY 09/20/20 [History Last Taken Unknown] fluoxetine 20 mg PO DAILY 09/20/20 [History Last Taken Unknown] hydroxyzine HCl 25 mg PO QHS 09/20/20 [History Last Taken Unknown] ixekizumab [Taltz Autoinjector] 80 mg SUBCUT QMONTH 09/20/20 [History Last Taken Unknown] meloxicam 15 mg PO DAILY 09/20/20 [History Last Taken Unknown] metronidazole [Flagyl] 500 mg PO Q12H #20 tab 09/20/20 [Rx Last Taken Unknown] oxycodone-acetaminophen [Percocet] 1 tab PO Q6H PRN 3 Days #10 tab 09/20/20 [Rx Last Taken Unknown] rizatriptan 10 mg PO PRN PRN 09/20/20 [History Last Taken Unknown] sulfamethoxazole-trimethoprim [Bactrim DS] 1 tab PO BID #20 tab 09/20/20 [Rx Last Taken Unknown] hydrocodone-acetaminophen 1 tab PO Q4H PRN 5 Days #14 tab 11/11/20 [Rx Last Taken Unknown] ciprofloxacin HCl 500 mg PO BID #20 tablet 03/09/21 [Rx Last Taken Unknown] hydrocodone-acetaminophen 1 tab PO Q6H PRN PRN 3 Days #12 tablet 03/09/21 [Rx Last Taken Unknown] metronidazole 500 mg PO Q8H #30 tab 03/09/21 [Rx Last Taken Unknown] ondansetron 4 mg PO Q8H PRN PRN #10 tab 03/09/21 [Rx Last Taken Unknown] Allergy/AdvReac Type Severity Reaction Status Date / Time verapamil Allergy Rash Verified 03/09/21 12:10 Social History (Updated 03/09/21 @ 12:[address] Nba Norris, DO) Smoking Status: Current every day smoker tobacco type: cigarettes substance use type: does not use ROS ROS ED Constitutional Constitutional ED: Denies chills, fever(s) or weight loss Eyes Eyes: Denies change in vision or diplopia ENT ENT ED: Denies ear pain, rhinorrhea or sore throat Cardiovascular Cardiovascular: Denies chest pain, orthopnea, palpitations or racing heartbeat Respiratory/Chest Respiratory/Chest: Denies cough, dyspnea or orthopnea Gastrointestinal Gastrointestinal: Reports abdominal pain and nausea; Denies diarrhea or vomiting Genitourinary Genitourinary ED: Denies dysuria, hematuria or urinary frequency Musculoskeletal Musculoskeletal: Denies arthralgias or myalgias Integumentary Denies abscess or rash Neurologic Neurologic: Denies headache(s) or weakness Psychiatric Psychiatric: Denies anxiety, depression, suicidal ideation or suicidal thoughts Endocrine Endocrinology: Denies polydipsia, polyphagia or polyuria Allergic/Immunologic Allergic/Immunologic ED: Denies mouth swelling, tongue swelling or urticaria EXAM Physical Exam Const Vital Signs: 03/09/21 12:08 Temperature 97.9 F Temperature Source Temporal Pulse Rate 96 Respiratory Rate 16 Blood Pressure 132/80 H Blood Pressure Mean 97 Pulse Ox 98 Oxygen Delivery Method Room Air Positive well nourished and well developed General Appearance ED: well developed HEENT Reports normocephalic, head/scalp atraumatic, TM's clear and moist mucous membranes Negative for trauma Tympanic Membrane ED: Yes TM's clear Eyes PERRL and EOMs intact bilaterally Neck no lymphadenopathy, supple and no JVD Resp normal respiratory effort and clear to auscultation bilaterally Cardio regular rate, regular rhythm and no murmurs GI Auscultation: normoactive bowel sounds Palpation: soft and tender LLQ Back/Spine no CVA tenderness and normal ROM Extremity normal to inspection General Extremety ED: Negative for edema General Extremity: Negative for edema Neuro oriented x3 and CN's II-XII intact bilaterally Sensorium / Orientation: alert Motor Exam: strength 5/5 throughout Psych mental status grossly normal Mood & Affect: Negative for depressed or tearful Skin no rashes or lesions noted and no wounds MDM MDM MDM Narrative Medical decision making narrative: Patient's white count returns elevated and his CT is consistent with sigmoid diverticulitis. Pain is improved we will be treating with Cipro and Flagyl as Percocet for pain return if worsening or concerns Lab Data Attestation: I reviewed the patient's lab results. Radiography Diagnostic Testing: Clinical Impression(s) from Imaging Studies Abdomen/Pelvis CT 03/09/21 12:40 IMPRESSION: Moderately extensive sigmoid diverticulitis, no abscess. Ill-defined lung opacities, probably atelectasis/scarring. Consider virological testing. Electronically Signed: Murphy Prince MD at 15:28 EST Tel , Service support , Discharge Plan Triage Chief Complaint: Abd Pain ED Provider: Nba Norris Dx/Rx/DC Orders Clinical Impression: Diverticulitis, Abdominal pain, acute Instructions: ED Diverticulitis Prescriptions: New hydrocodone-acetaminophen [hydrocodone-acetaminophen] 1 TABLET tablet 1 tab PO Q6H PRN PRN (Reason: Pain) 3 Days Qty: 12 RF: 0 ciprofloxacin HCl [ciprofloxacin HCl] 500 MG tablet 500 mg PO BID Qty: 20 RF: 0 metronidazole [metronidazole] 500 MG tablet 500 mg PO Q8H Qty: 30 RF: 0 ondansetron [ondansetron] 4 MG tablet 4 mg PO Q8H PRN PRN (Reason: Nausea) Qty: 10 RF: 0 No Action atorvastatin 20 MG tablet 20 mg PO QHS RF: 0 nifedipine 30 MG tablet extended release 30 mg PO DAILY RF: 0 omeprazole 10 MG capsule,delayed release(DR/EC) 10 mg PO PRN PRN (Reason: gerd) RF: 0 lorazepam 1 MG tablet 1 mg PO QHS RF: 0 meloxicam 15 mg tablet 15 mg PO DAILY RF: 0 aspirin 81 mg tablet,delayed release (DR/EC) 81 mg PO DAILY RF: 0 diltiazem HCl 120 mg capsule,extended release 24hr 120 mg PO DAILY RF: 0 hydroxyzine HCl 25 mg tablet 25 mg PO QHS RF: 0 Taltz Autoinjector 80 mg/mL auto-injector 80 mg SUBCUT QMONTH RF: 0 rizatriptan 10 mg tablet,disintegrating 10 mg PO PRN PRN (Reason: Migraine Headache) RF: 0 fluoxetine 20 mg capsule 20 mg PO DAILY RF: 0 sulfamethoxazole-trimethoprim [Bactrim DS] 800-160 mg tablet 1 tab PO BID Qty: 20 RF: 0 metronidazole [Flagyl] 500 mg tablet 500 mg PO Q12H Qty: 20 RF: 0 oxycodone-acetaminophen [Percocet] 5-325 mg tablet 1 tab PO Q6H PRN (Reason: pain) 3 Days Qty: 10 RF: 0 hydrocodone-acetaminophen 5-325 mg tablet 1 tab PO Q4H PRN (Reason: pain) 5 Days Qty: 14 RF: 0 Primary Care Provider: Kenroy Larry Referrals: Kenroy Larry MD [Primary Care Provider] - 1 Week Disposition Disposition: Home, Self Care Discharge Date/Time: 03/09/21 15:37
[2021-03-09] MEDS: Morphine 4 MG/ML Syringe IV (12:47)
[2021-03-09] MEDS: Ondansetron 4 MG/2 ML Vial IV (12:47)
[2021-03-09] MEDS: 0.9% Normal Saline 1,000 ML 1000 ML IV (12:47)
[2021-03-09 13:03] LABS: Red Blood Cells-Urine 0 SEEN /hpf (0-5)
[2021-03-09 13:08] LABS: Absolute Lymphocyte Count 2.67 X10^3/uL (0.83-4.51); Absolute Neutrophil Count 16.3 X10^3/uL (2.0-7.7); Basophil% 0.5 % (0-1); Eosinophil# 0.06 X10^3/uL; Eosinophils% 0.3 % (0-5); Hematocrit 51.4 % (40-54); Hemoglobin 16.3 g/dL (13.0-16.5); Lymphocyte # 2.67 X10^3/ul (0.83-4.51); Lymphocyte % 13.2 % (19-41); Mean Corp Hgb Conc 31.7 g/dL (32-36); Mean Corpuscular Hgb 26.7 pg (27.0-32.0); Mean Corpuscular Volume 84.1 fL (80-94); Mean Platelet Vol. 9.5 fl (6.2-12.0); Monocyte# 0.93 X10^3/uL; Monocyte% 4.6 % (0-10); NRBC Flagged by Analyzer 0 % (0-5); Neutrophil # 16.34 X10^3/uL (2.7-7.7); Neutrophil % 81.1 % (47-70); Platelet Count 389 K/mm3 (150-450); RBC Distribution Width CV 17.4 % (11.6-14.6); RBC Distribution Width SD 49.6 fl (35.1-43.9); Red Blood Count 6.11 M/mm3 (4.6-6.2); White Blood Count 20.2 K/mm3 (4.4-11.0)
[2021-03-09 13:17] LABS: Color, Urine Yellow (Yellow); Glucose, Dipstick Normal (Normal); Ketone-Dipstick 5 mg/dl (Negative); Leukocyte Esterase-Dipstick 25 /ul (Negative); Nitrite-Dipstick Negative (Negative); Occult Blood-Urine 10 /ul (Negative); Protein-Dipstick 15 mg/dl (Negative); Urine Bilirubin Dipstick 1 mg/dL (Negative); Urine Clarity Sl. Cloudy (Clear); Urine Urobilinogen 1 mg/dl (Normal)
[2021-03-09 13:24] LABS: Bacteria RARE /hpf (None Seen); Mucous, Urine 1+ /hpf (<or=2+); Squamous Epithelial Cells - UA 0-5 SEEN /hpf (0-5); White Blood Cells 0-5 SEEN /hpf (0-5)
[2021-03-09 13:57] LABS: ALB/GLOB Ratio 0.8 RATIO (0.9-2.4); AST(SGOT) 12 U/L (15-37); Alanine Aminotransfer ALT/SGPT 23 U/L (16-61); Albumin, Serum 3.3 g/dL (3.2-5.0); Alkaline Phosphatase 108 U/L (45-117); Anion Gap 2 (5-15); BUN 10 mg/dL (7-18); BUN/Creat Ratio 12.9 RATIO (10-20); Calcium,Total 8.4 mg/dL (8.5-10.1); Chloride 109 mmol/L (98-107); Creatinine, Serum 0.78 mg/dL (0.70-1.30); EST Glomerular Filtration Rate 109 mL/min (>60); Est Glom Filt Rate - Afr Amer 131 mL/min (>60); Estimated Creatinine Clearance 111.35 ml/min; Glucose 102 mg/dL (74-106); Potassium 4.8 mmol/L (3.5-5.1); Protein, Total 7.3 g/dL (6.4-8.2); Sodium Level 138 mmol/L (136-145)
[2021-03-09 14:17] VITALS: RESP 16
[2021-03-09 15:37] VITALS: BP 125/82; PULSE 71; RESP 18; O2SAT 98
== END 2021-03-09 15:37 | disposition home or self-care (01) ==
PROVIDERS: Emergency Provider Emergency Medicine; PCP Family Medicine
DX: K57.92 Diverticulitis of intestine, part unspecified, without perforation or abscess without bleeding (principal); I10 Essential (primary) hypertension; L40.9 Psoriasis, unspecified; K21.9 Gastro-esophageal reflux disease without esophagitis; M19.90 Unspecified osteoarthritis, unspecified site; Z87.19 Personal history of other diseases of the digestive system; Z79.82 Long term (current) use of aspirin; Z79.899 Other long term (current) drug therapy; F17.210 Nicotine dependence, cigarettes, uncomplicated
CPT/HCPCS: 74177; 80053; 81001; 85025; 96361; 96374; 96375; 99284; J7030; Q9967; A4216; J2405

== ENCOUNTER 2021-04-04 14:10 | Emergency (ER) | payer MEDICAID, SELFPAY ==
[2021-04-04 14:11] VITALS: BP 132/73; PULSE 77; RESP 18; TEMP 35.8; O2SAT 99; BMI 21.8
--- NOTE | 2021-04-04 15:55 | EDS_ITS ---
HPI History of Present Illness HPI Narrative: Patient presents with his because of injury to his right forearm. He states that he was taking the dog down the stairs last evening, when they saw someone, and the dog ran behind the patient, then ran down the stairs, causing him to fall and scraped his right forearm against the ballisters. He denies hitting his head or loss of consciousness or other injury. He tried to place Neosporin on his skin tear on his right forearm and adherent dressing, and now was unable to pull it off without pain. He is unsure of his last tetanus immunization, it may have been greater than 5 years. He denies other injury but has pain in his right forearm. He presents for evaluation of his wound. Chief Complaint: Wound PFSH [facility] Medical History Arthritis GERD (gastroesophageal reflux disease) Heart murmur Hypertension Polycythemia Psoriasis Home Medications atorvastatin 20 mg PO QHS 09/17/15 [History Last Taken Unknown] nifedipine 30 mg PO DAILY 09/17/15 [History Last Taken Unknown] omeprazole 10 mg PO PRN PRN 10/01/17 [History Last Taken Unknown] aspirin 81 mg PO DAILY 09/20/20 [History Last Taken Unknown] fluoxetine 20 mg PO DAILY 09/20/20 [History Last Taken Unknown] ixekizumab [Taltz Autoinjector] 80 mg SUBCUT QMONTH 09/20/20 [History Last Taken Unknown] rizatriptan 10 mg PO PRN PRN 09/20/20 [History Last Taken Unknown] naproxen [Naprosyn] 500 mg PO BID PRN #20 tab 04/04/21 [Rx Last Taken Unknown] Allergy/AdvReac Type Severity Reaction Status Date / Time verapamil Allergy Rash Verified 04/04/21 15:10 Social History Smoking Status: Current every day smoker tobacco type: cigarettes substance use type: does not use ROS ROS ED ROS Narrative Constitutional: No fever, no chills. HEENT: No sore throat. No neck pain. No loss of vision. No rhinorrhea. Cardiovascular: No chest pain. No palpitations. No pedal edema. Respiratory: No cough, no shortness of breath. Abdominal: No abdominal pain. No nausea. No vomiting. Genitourinary: No dysuria. No hematuria. Musculoskeletal: No myalgias. No arthralgias. Mild right forearm pain. Neurologic: No headaches. No dizziness. No lightheadedness. Skin: No rash. No change in color. Large skin tear right forearm. Psychiatric: No depression. No anxiety. EXAM Physical Exam Narrative Exam Narrative: Afebrile. Vital signs noted. HEENT: Normocephalic. Atraumatic. PERRL, EOMI. Neck soft and supple. No point tenderness or step off. Cardiovascular: Regular rate and rhythm. No murmurs, rubs, or gallops appreciated. Respiratory: No tachypnea. Lungs clear to auscultation bilaterally. Gastrointestinal: Abdomen soft, nontender, with normoactive bowel sounds. No rebound or guarding. Neurological: Awake. Alert. Nonfocal, nonlateralizing. Skin: No rash. Normal color. No pallor. Musculoskeletal: No pedal edema. Full range of motion extremities. Large skin tear with gauze stuck to right forearm. Neurovascular intact distally. Mild midshaft radius pain, no crepitance. No active bleeding. Palpable radial pulse. Const Vital Signs: 04/04/21 14:11 Temperature 96.5 F L Temperature Source Temporal Pulse Rate 77 Respiratory Rate 18 Blood Pressure 132/73 H Blood Pressure Mean 92 Pulse Ox 99 Oxygen Delivery Method Room Air MDM MDM MDM Narrative Medical decision making narrative: RN will soak the bandage and remove the gauze. His tetanus immunization was updated. X-rays were obtained of the right forearm. There was a delay and technical error with the reading of his x-rays. However, they have returned negative. In order to remove the bandage, he required 1 dose of Vicodin. His wound was cleansed and dressed by the RN with nonadherent dressing, and wrapped. He was told that with a skin avulsion of this type and size that it will take weeks for it to heal well. He is to have a wound recheck by his primary care physician in the next 3 to 4 days. I feel he can be discharged safely home with follow-up. I do not feel narcotic pain medication is indicated for his forearm skin tear and contusion. He was given a prescription for naproxen. Disposition is discharged home in stable condition. Discharge Plan Triage Chief Complaint: Wound ED Provider: Herbie Coleman Dx/Rx/DC Orders Clinical Impression: Skin tear of forearm without complication Instructions: ED Skin Avulsion Prescriptions: New naproxen [Naprosyn] 500 mg tablet 500 mg PO BID PRN (Reason: pain) Qty: 20 RF: 0 No Action atorvastatin 20 MG tablet 20 mg PO QHS RF: 0 nifedipine 30 MG tablet extended release 30 mg PO DAILY RF: 0 omeprazole 10 MG capsule,delayed release(DR/EC) 10 mg PO PRN PRN (Reason: gerd) RF: 0 aspirin 81 mg tablet,delayed release (DR/EC) 81 mg PO DAILY RF: 0 Taltz Autoinjector 80 mg/mL auto-injector 80 mg SUBCUT QMONTH RF: 0 rizatriptan 10 mg tablet,disintegrating 10 mg PO PRN PRN (Reason: Migraine Headache) RF: 0 fluoxetine 20 mg capsule 20 mg PO DAILY RF: 0 Primary Care Provider: Kenroy Larry Referrals: Kenroy Larry MD [Primary Care Provider] - 04/07/21
[2021-04-04] MEDS: Diphth,Pertuss(Acell),Tet Vac 0.5 ML Vial IM (16:34)
[2021-04-04] MEDS: HYDROcodone Bitartrate/Apap 5/325 Tablet PO (16:34)
--- NOTE | 2021-04-04 16:43 | RAD_ITS ---
STUDY: X-RAY - RIGHT RADIUS AND ULNA REASON FOR EXAM: Male, 60 years old. states dog tore open skin on right posterior forearm, right forearm pain TECHNIQUE: 2 view(s) of the forearm. COMPARISON: None. FINDINGS: Mild soft tissue swelling is present over the dorsum of the forearm. Soft tissue irregularity and lucency of the forearm is likely due to the reported laceration injury and a tiny amount of subcutaneous air. Normal visualized radius. Normal visualized ulna. There is no demonstrated acute fracture. RAD/Forearm 2 Views IMPRESSION: 1. Mild soft tissue swelling is present over the dorsum of the forearm. Soft tissue irregularity and lucency of the forearm is likely due to the reported laceration injury and a tiny amount of subcutaneous air Electronically Signed: Lee Gordon MD at 21:49 EST , Service support ,
[2021-04-04 18:57] VITALS: PULSE 66; O2SAT 98
[2021-04-04 19:47] VITALS: RESP 18
== END 2021-04-04 20:01 | disposition home or self-care (01) ==
PROVIDERS: Emergency Provider Emergency Medicine; PCP Family Medicine
DX: S51.811A Laceration without foreign body of right forearm, initial encounter (principal); W10.9XXA Fall (on) (from) unspecified stairs and steps, initial encounter; Y93.9 Activity, unspecified; Y92.9 Unspecified place or not applicable; I10 Essential (primary) hypertension; D75.1 Secondary polycythemia; L40.9 Psoriasis, unspecified; K21.9 Gastro-esophageal reflux disease without esophagitis; M19.90 Unspecified osteoarthritis, unspecified site; Z79.82 Long term (current) use of aspirin; Z79.899 Other long term (current) drug therapy; F17.210 Nicotine dependence, cigarettes, uncomplicated
CPT/HCPCS: 73090; 90471; 90715; 99283

== ENCOUNTER 2021-04-18 08:30 | Outpatient (RCR) | payer MEDICAID, SELFPAY ==
--- NOTE | 2020-11-28 15:40 | HP.PTEVAL_ITS ---
Patient's Visit Information SALBADOR FARNSWORTH is a 59 year old M referred to Physical Therapy by Dr. Malinda Calvert MD with a diagnosis of LB radiculopathy. Date of Evaluation: 11/28/20 Physical Therapist: Emile López, DPT, OCS, CSCS - Visit Plan Frequency: 3x /Week Duration: 4-6 Weeks Plan: 3x/week for 2-4 weeks for aquatic based therapy for LB ROM focussing extension, quad and HS stretching and core strength. back to doctor in a couple weeks if no improvement for MRI. - Subjective Radha present. My back is killing me, R LB and into R leg down to ankle. It is constant ache and sharp pain with leg tightness. Is a [facility] patient and had nerve block 9 days ago. This has been going on for 3.5 weeks and started insidiously. Slipped on rock in [place] but did not notice pain right away. These are worse than his normal just LBP. Had injections in the past but this is new. MRI ordered. Avoids sitting on L cheek b/c R hurts. Sleep is very interrupted. Can't get ocmfortable. Not employed currently. Spends day playing [employer]. Basic ADLs including dress, shower, bath are I. Worse at end of day, Worse in one position. Denies numbness or tingling but maybe weak in ankle on steps. Using cane due to poor ocnfidence in R LE. - Pain R LBP Pain Intensity (Out of 10): 0 Pain Intensity Range: 4, 9 Comment: into R leg - Objective Walks with cane in R ue slow and labored and hunched FW. Sits on L cheek I in sitting. Trasnitions slow and painful but I. Has TENS unit at home for that he can use but has not tried yet. LB AROM ext max limited and pain R. B SB mod imited and slow. flexion min limited without pain. slight + SLR and slump, max + femoral nerve test. reflexes 2/3 patella and achilles. Sensation WNL to gross light touch in LE. strength is 4-/5 B fearful of sudden pain but no myotomal deficits. PA pressure painful in mid Lumbar spine. - Balance/Special Test Scores Oswestry Low Back Score: 29 - Goals Goal 1:: stand up tall and walk confidently without cane Goal Time Frame: 4-6 Weeks Goal 2:: funcitonal L/s ROM without pain Goal Time Frame: 4-6 Weeks Goal 3:: I approp posture, strength and ROM ex to limit future problems. Goal Time Frame: 4-6 Weeks Goal 4:: Pt feel 90% back to normal activitiy including sleep Goal Time Frame: 4-6 Weeks Goal 5:: <9 score on oswestry Goal Time Frame: 4-6 Weeks - Rehabilitation Potential Physical Therapy Diagnosis: LBradic likely discal in nature. Rehabilitation Potential: Questionable - Anticipated Interventions Patient/Client Instruction: Educate patient on: Condition, Plan of Care For the Purpose of:: To decrease pain, To increase ROM, To improve muscle performance and motor function Therapeutic Exercise to Include: Strength training, Postural training, Flexibilty training, Gait and locomotor training, In an aquatic setting, Passive ROM, Active ROM, Dynamic Lumbar Stabilization For the Purpose of:: To decrease pain, To increase ROM, To improve muscle performance and motor function, To improve ability of physical actions for home/community/work/leisure, To improve gait and locomotor functions Thank you for the opportunity to evaluate your patient. For Medicare and Medicare HMO plans, please review the plan of care and approve it. It will need to be FAXED BACK to us at [phone] for Medicare purposes. For Medicare only, by signing this I certify the plan of care. Please let me know if there are questions or concerns regarding this plan of care. Physician Signature: Date:
--- NOTE | 2021-02-11 15:56 | HP.PTREVAL ---
Dr. Malinda Calvert MD, It has been my pleasure to treat SALBADOR FARNSWORTH over the last 11 visits for LB radiculopathy. Please see the progress note below for an update on the physical therapy plan of care! Subjective: Pool treating OK. Helps somewhat. Nighttime it still tenses up back big time adn less frequently during the day. Trying to sleep on side but waking up 2x/night with pain. Saw [facility] and renewded gabapentin and tramdol. Also ordered MRI for 02/19/21. Sitting still causes pain down R leg. Feels better when up and moving. Objective/Function: L/S AROM ext max limited, SB and flexion are OK, just hesitant. Walks slow but steady. Overall much better Ext ROM after PPU and ext mobs. Plan Plan: 2x/week for 3 weeks for .. 1. PA ext mobs L/S. ppu with op. core strength and postureal strength. TENS with ice if needed. Balance/Gait/Functional tests - Balance/Special Test Scores Oswestry Low Back Score: 25 Goals Goal 1:: stand up tall and walk confidently without cane Goal Time Frame: 4-6 Weeks Goal Progress: still hunched, approp Goal 2:: funcitonal L/s ROM without pain Goal Time Frame: 4-6 Weeks Goal Progress: Goal Met Goal 3:: I approp posture, strength and ROM ex to limit future problems. Goal Time Frame: 4-6 Weeks Goal Progress: Progressing Goal 4:: Pt feel 90% back to normal activitiy including sleep Goal Time Frame: 4-6 Weeks Goal Progress: 30% Goal 5:: <9 score on oswestry Goal Time Frame: 4-6 Weeks Anticipated Interventions Patient/Client Instruction: Educate patient on: Condition, Plan of Care For the Purpose of:: To decrease pain, To increase ROM, To improve muscle performance and motor function Therapeutic Exercise to Include: Strength training, Postural training, Flexibilty training, Gait and locomotor training, In an aquatic setting, Passive ROM, Active ROM, Dynamic Lumbar Stabilization For the Purpose of:: To decrease pain, To increase ROM, To improve muscle performance and motor function, To improve ability of physical actions for home/community/work/leisure, To improve gait and locomotor functions Please do not hesitate to contact me at [phone] by phone or if you have questions or concerns regarding this new plan of care! Sincerely, Emile López, DPT, OCS, CSCS
--- NOTE | 2021-03-06 14:00 | HP.PTREVAL_ITS ---
Dr. Malinda Calvert MD, It has been my pleasure to treat SALBADOR FARNSWORTH over the last 14 visits for LB radiculopathy. Please see the progress note below for an update on the physical therapy plan of care! Subjective: Saw doctor regarding 3 pinched nerves. Can try another injection or contact surgeon. Pt would rather have injections than surgery and is waiting on approval. tried to mow yard yesterday and got pain in R leg above knee. Pain yesterday in LB and knee to 5/10 with yard work and intermittent. Sleep is still interrupted a little bit to alot. Doing HEP of stretches but not sure that they are helping. Mostly ROM at home. Therapy 3exercises feel good to do but sore afterward. Objective/Function: Slow trasnfers but not painful just hesitant. Walks up tall I but turns slowly. L/S ext min imited and some central pain, SB full but sloiw and painfree. Flexion full and painfree. 4/5 LE strength without myotom al abnormalities. Reflexes 2/3 patella and achilles. Overall moving much better but still hesitant and gets painful intermittently. Appropriate to cotninue PT to progress to strenghtening per POC after injection if approved. Fair prognosis for new goal. Plan Plan: 2x/week for 2-4 weeks for... 1. mat bassed core strength to HEP. 2. gym based general strength to I. Balance/Gait/Functional tests - Balance/Special Test Scores Oswestry Low Back Score: 18 Goals Goal 1:: stand up tall and walk confidently without cane Goal Time Frame: 4-6 Weeks Goal Progress: Goal Met, but slow Goal 2:: funcitonal L/s ROM without pain Goal Time Frame: 4-6 Weeks Goal Progress: Goal Met Goal 3:: I approp posture, strength and ROM ex to limit future problems. Goal Time Frame: 4-6 Weeks Goal Progress: Progressing, needs streng Goal 4:: Pt feel 90% back to normal activitiy including sleep Goal Time Frame: 4-6 Weeks Goal Progress: 65%, approp Goal 5:: <9 score on oswestry Goal Time Frame: 4-6 Weeks Goal Progress: 18 is improving Goal 6:: I gym core strength ex to limit future problems Goal Time Frame: 2-4 Weeks Goal Progress: NEW GOAL Anticipated Interventions Patient/Client Instruction: Educate patient on: Condition, Plan of Care For the Purpose of:: To decrease pain, To increase ROM, To improve muscle performance and motor function Therapeutic Exercise to Include: Strength training, Postural training, Flexibilty training, Gait and locomotor training, In an aquatic setting, Passive ROM, Active ROM, Dynamic Lumbar Stabilization For the Purpose of:: To decrease pain, To increase ROM, To improve muscle performance and motor function, To improve ability of physical actions for home/community/work/leisure, To improve gait and locomotor functions Please do not hesitate to contact me at [phone] by phone or if you have questions or concerns regarding this new plan of care! Sincerely, Emile López, NALLELYT, OCS, CSCS
--- NOTE | 2021-04-18 08:56 | HP.PTDCSUM ---
It has been my pleasure to treat SALBADOR FARNSWORTH referred by Dr. Malinda Calvert MD, with the diagnosis of LB radiculopathy for a total of 20 visit(s). Discharge Date: 04/18/21 Please see the following information for a summary of their discharge status. Subjective: Been doing pretty good lately. Injections were a while ago. Slowly getting better. Still tenses up at night at times. Tosses and tunrs and keeps up minimally. Getting 5 hours sleep out of 6 normal. Activities are normal at home for this time of year. HEP going well. R LBP Pain Intensity (Out of 10): 2 RLE Pain Intensity (Out of 10): 0 % Improvement: 80 Objective/Function: Stands up form chair and ambulates up tall really well today from waiting room and I. Lumbar ROM is full and painfree today. Steps are normal and reciprocal without rail or pain. Overall much better and ready to continue HEP. Goal 1:: stand up tall and walk confidently without cane Goal Progress: Goal Met Goal 2:: funcitonal L/s ROM without pain Goal Progress: Goal Met Goal 3:: I approp posture, strength and ROM ex to limit future problems. Goal Progress: Goal Met Goal 4:: Pt feel 90% back to normal activitiy including sleep Goal Progress: 80% Goal 5:: <9 score on oswestry Goal Progress: Goal Met Goal 6:: I gym core strength ex to limit future problems Goal Progress: Goal Met Plan: d/c Discharge Comments: Pt to f/u with Basali as needed adn continue home adn gym ex I. If there are questions or concerns regarding this patient's physical therapy, please feel free to call me at [phone]. Thank you for the referral of this patient. Sincerely, Emile López, DPT, OCS, CSCS Balance/Gait/Functional tests - Balance/Special Test Scores Oswestry Low Back Score: 5
== END 2021-04-18 19:00 | disposition home or self-care (01) ==
LOC: PT 08:30
PROVIDERS: PCP Family Medicine; Referring Provider Anesthesiology Pain Medicine; Visit Provider Anesthesiology Pain Medicine
DX: M54.16 Radiculopathy, lumbar region (principal); M54.50 Low back pain, unspecified
CPT/HCPCS: 97110; 97113; 97162; 97164; 97530

== ENCOUNTER 2021-09-16 13:37 | Emergency (ER) | payer MEDICAID, SELFPAY ==
[2021-09-16 13:37] VITALS: BP 147/90; PULSE 77; RESP 18; TEMP 36.4; O2SAT 97; BMI 22.9
--- NOTE | 2021-09-16 15:19 | EDS_ITS ---
HPI History of Present Illness Chief Complaint: Dizziness Informant: patient Onset/Context/Timing Onset: Today Context: Sudden Onset Timing: Continuous Quality: Off balance, lightheaded Location: Generalized Worsened by: Wearing glasses and drinking coffee Relieved by: Nothing Narrative Narrative: Patient presents with dizziness that began today. Patient states she was walking outside to go smoke a cigarette when he started feeling dizzy. Patient describes it as being off balance and lightheaded. Patient states it gets worse when he tries to wear his glasses for when he drinks hot coffee. Patient denies any nausea or vomiting. Patient does admit to some palpitations. Patient also admits to having some chills when this happened today. Patient denies any fevers. Patient denies any tinnitus or hearing changes. Patient states he has a history of vertigo and this feels somewhat similar to that but not exactly the same. [facility] Medical History (Updated 09/16/21 @ 19:[address] Emile Reed DO) Arthritis GERD (gastroesophageal reflux disease) Heart murmur Hypertension Polycythemia Psoriasis Vertigo Home Medications atorvastatin 20 mg PO QHS 09/17/15 [History Last Taken Unknown] nifedipine 30 mg PO DAILY 09/17/15 [History Last Taken Unknown] omeprazole 10 mg PO PRN PRN 10/01/17 [History Last Taken Unknown] aspirin 81 mg PO DAILY 09/20/20 [History Last Taken Unknown] fluoxetine 20 mg PO DAILY 09/20/20 [History Last Taken Unknown] ixekizumab [Taltz Autoinjector] 80 mg SUBCUT QMONTH 09/20/20 [History Last Taken Unknown] rizatriptan 10 mg PO PRN PRN 09/20/20 [History Last Taken Unknown] naproxen [Naprosyn] 500 mg PO BID PRN #20 tab 04/04/21 [Rx Last Taken Unknown] diazepam [Valium] 2 mg PO TID PRN #20 tab 09/16/21 [Rx Last Taken Unknown] Allergy/AdvReac Type Severity Reaction Status Date / Time verapamil Allergy Rash Verified 09/16/21 13:39 Surgical History (Updated 09/16/21 @ 15:[address] Emile Reed DO) Hx of cardiac catheterization Social History Smoking Status: Current every day smoker tobacco type: cigarettes substance use type: does not use ROS ROS ED Constitutional Constitutional ED: Reports chills; Denies fever(s) Eyes Eyes: Denies blurry vision or change in vision ENT ENT ED: Denies rhinorrhea or sore throat Cardiovascular Cardiovascular: Reports palpitations; Denies chest pain Respiratory/Chest Respiratory/Chest: Reports dyspnea; Denies cough Gastrointestinal Gastrointestinal: Denies nausea or vomiting Genitourinary Genitourinary ED: Denies dysuria or hematuria Musculoskeletal Musculoskeletal: Reports back pain and neck pain Integumentary Reports rash; Denies abscess Neurologic Neurologic: Reports weakness; Denies headache(s) Allergic/Immunologic Allergic/Immunologic ED: Denies mouth swelling or urticaria EXAM Physical Exam Const Vital Signs: 09/16/21 13:37 09/16/21 15:00 09/16/21 15:52 Temperature 97.5 F L Temperature Source Temporal Pulse Rate 77 Pulse Rate [Lying] 61 Pulse Rate [Sitting (for 1 minute prior to obtaining)] 66 Pulse Rate [Standing (for 1 minute prior to obtaining)] 76 Respiratory Rate 18 Respiratory Effort Normal Non-Labored Respiratory Pattern Normal Blood Pressure 147/90 H Blood Pressure [Lying] 156/71 H Blood Pressure [Sitting (for 1 minute prior to obtaining)] 158/74 H Blood Pressure [Standing (for 1 minute prior to obtaining)] 139/79 H Blood Pressure Mean 109 Blood Pressure Mean [Lying] 99 Blood Pressure Mean [Sitting (for 1 minute prior to obtaining)] 102 Blood Pressure Mean [Standing (for 1 minute prior to obtaining)] 99 Pulse Ox 97 Oxygen Delivery Method Room Air 09/16/21 17:32 09/16/21 19:12 Temperature Temperature Source Pulse Rate 62 61 Pulse Rate [Lying] Pulse Rate [Sitting (for 1 minute prior to obtaining)] Pulse Rate [Standing (for 1 minute prior to obtaining)] Respiratory Rate 17 16 Respiratory Effort Respiratory Pattern Blood Pressure 157/79 H 140/75 H Blood Pressure [Lying] Blood Pressure [Sitting (for 1 minute prior to obtaining)] Blood Pressure [Standing (for 1 minute prior to obtaining)] Blood Pressure Mean 105 96 Blood Pressure Mean [Lying] Blood Pressure Mean [Sitting (for 1 minute prior to obtaining)] Blood Pressure Mean [Standing (for 1 minute prior to obtaining)] Pulse Ox 98 97 Oxygen Delivery Method Room Air Room Air Positive well nourished and well developed General Appearance ED: well developed HEENT Reports moist mucous membranes Eyes PERRL and EOMs intact bilaterally Eyes Narrative: There is some nystagmus with left lateral gaze. Neck supple and no JVD Resp normal respiratory effort and clear to auscultation bilaterally Cardio regular rate and regular rhythm Rate: other Other Details: There is a grade 2/6 systolic murmur at the left upper sternal border. GI normal to inspection, nondistended, normoactive bowel sounds and non-tender Palpation: soft Extremity normal to inspection General Extremety ED: Negative for edema or tenderness General Extremity: Negative for edema Neuro oriented x3, CN's II-XII intact bilaterally and no sensory deficits noted Sensorium / Orientation: alert Motor Exam: strength 5/5 throughout Psych mental status grossly normal Skin no rashes or lesions noted MDM MDM MDM Narrative Medical decision making narrative: Patient was given IV fluids and a dose of meclizine. CBC was within normal limits. Comprehensive metabolic profile was within normal limits. High-sensitivity troponin was less than 3. Urinalysis does not show any evidence of urinary tract infection. CT scan of the brain was obtained. There is no acute intracranial abnormality. This was interpreted by the radiologist and reviewed by myself. On reevaluation, patient was still feeling dizzy. Patient was given a dose of Valium. Patient was feeling better after this. Patient was given a prescription for Valium. Patient was instructed to follow-up with his primary care physician in 3 to 5 days. Patient understood and was agreeable with the plan. All questions were answered. Lab Data Labs: Laboratory Results - last 24 hr 09/16/21 09/16/21 09/16/21 15:30 15:30 16:28 WBC 10.6 RBC 6.92 H Hgb 16.0 Hct 53.3 MCV 77.0 L MCH 23.1 L MCHC 30.0 L RDW Std Deviation 55.3 H RDW Coeff of Eze 21.7 H Plt Count 352 MPV 9.5 Immature Gran % (Auto) 0.400 Neut % (Auto) 67.2 Lymph % (Auto) 25.2 Mineral % (Auto) 5.5 Eos % (Auto) 1.0 Baso % (Auto) 0.7 Absolute Neuts (auto) 7.2 Absolute Lymphs (auto) 2.68 Nucleated RBC % 0 Differential Comment SCANNED Sodium 135 L Potassium 4.4 Chloride 102 Carbon Dioxide 27.0 Anion Gap 6 BUN 12 Creatinine 0.84 Estim Creat Clear Calc 105.70 Est GFR (MDRD) Af Amer 120 Est GFR (MDRD) Non-Af 99 BUN/Creatinine Ratio 14.2 Glucose 103 Calcium 9.2 Total Bilirubin 0.60 AST 22 ALT 30 Alkaline Phosphatase 102 Troponin I High Sens < 3 L Total Protein 8.2 Albumin 3.8 Globulin 4.4 H Albumin/Globulin Ratio 0.9 Urine Color Yellow Urine Clarity Clear Urine pH 6.5 Ur Specific [place] 1.010 Urine Protein Negative Urine Glucose (UA) Normal Urine Ketones Negative Urine Occult Blood Negative Urine Nitrite Negative Urine Bilirubin Negative Urine Urobilinogen Normal Ur Leukocyte Esterase Negative Urine RBC 0 SEEN Urine WBC 0 SEEN Ur Squamous Epith Cells 0 SEEN Urine Bacteria RARE Urine Mucus 0 SEEN Radiography Diagnostic Testing: Clinical Impression(s) from Imaging Studies Brain CT 09/16/21 15:43 IMPRESSION: Normal unenhanced CT scan of the brain. Electronically Signed: Bruno Salcedo MD at 16:06 EDT , Discharge Plan Triage Chief Complaint: Dizziness ED Provider: Emile Reed Dx/Rx/DC Orders Clinical Impression: Vertigo Instructions: ED Vertigo, Unspecified Prescriptions: New diazepam [Valium] 2 mg tablet 2 mg PO TID PRN (Reason: vertigo) Qty: 20 RF: 0 No Action atorvastatin 20 MG tablet 20 mg PO QHS RF: 0 nifedipine 30 MG tablet extended release 30 mg PO DAILY RF: 0 omeprazole 10 MG capsule,delayed release(DR/EC) 10 mg PO PRN PRN (Reason: gerd) RF: 0 aspirin 81 mg tablet,delayed release (DR/EC) 81 mg PO DAILY RF: 0 Taltz Autoinjector 80 mg/mL auto-injector 80 mg SUBCUT QMONTH RF: 0 rizatriptan 10 mg tablet,disintegrating 10 mg PO PRN PRN (Reason: Migraine Headache) RF: 0 fluoxetine 20 mg capsule 20 mg PO DAILY RF: 0 naproxen [Naprosyn] 500 mg tablet 500 mg PO BID PRN (Reason: pain) Qty: 20 RF: 0 Primary Care Provider: Kenroy Larry Referrals: Kenroy Larry MD [Primary Care Provider] - 3-5 Days Disposition Disposition: Home, Self Care
[2021-09-16 15:43] LABS: Absolute Lymphocyte Count 2.68 X10^3/uL (0.83-4.51); Absolute Neutrophil Count 7.2 X10^3/uL (2.0-7.7); Basophil# 0.07 X10^3/uL; Basophil% 0.7 % (0-1); Eosinophil# 0.11 X10^3/uL; Hematocrit 53.3 % (40-54); Lymphocyte # 2.68 X10^3/ul (0.83-4.51); Lymphocyte % 25.2 % (19-41); Mean Corpuscular Hgb 23.1 pg (27.0-32.0); Mean Platelet Vol. 9.5 fl (6.2-12.0); Monocyte# 0.59 X10^3/uL; Monocyte% 5.5 % (0-10); NRBC Flagged by Analyzer 0 % (0-5); Neutrophil # 7.15 X10^3/uL (2.7-7.7); Neutrophil % 67.2 % (47-70); POSITIVE MORPHOLOGY YES; Platelet Count 352 K/mm3 (150-450); RBC Distribution Width CV 21.7 % (11.6-14.6); RBC Distribution Width SD 55.3 fl (35.1-43.9); Red Blood Count 6.92 M/mm3 (4.6-6.2); White Blood Count 10.6 K/mm3 (4.4-11.0)
--- NOTE | 2021-09-16 15:43 | CT_ITS ---
STUDY: CT BRAIN WITHOUT CONTRAST REASON FOR EXAM: Male, 60 years old. Dizziness RADIATION DOSAGE (If Supplied By Facility): CTDIvol = ( 44.99 ) mGy, DLP = ( 829.85 ) mGycm TECHNIQUE: Transaxial CT imaging of the brain was performed without administration of intravenous contrast material. Individualized dose optimization techniques were used for this CT. COMPARISON: No relevant priors. FINDINGS: Normal soft tissue structures. Normal calvarium. Normal size ventricles and extra-axial spaces for the patient''s age. Normal white matter tracts of the cerebral hemispheres. Normal basal ganglia and thalami. Normal brainstem. Normal cerebellum. There is no intracranial hemorrhage. There are no findings of an acute ischemic infarction. Normal visualized paranasal sinuses. CT/Brain/Head without Contrast IMPRESSION: Normal unenhanced CT scan of the brain. Electronically Signed: Bruno Salcedo MD at 16:06 EDT ,
[2021-09-16] MEDS: Meclizine HCl 25 MG Tablet PO (15:51)
[2021-09-16 15:52] VITALS: BP 139/79; BP 156/71; BP 158/74; PULSE 61; PULSE 66; PULSE 76
[2021-09-16 16:06] LABS: ALB/GLOB Ratio 0.9 RATIO (0.9-2.4); AST(SGOT) 22 U/L (15-37); Alanine Aminotransfer ALT/SGPT 30 U/L (16-61); Albumin, Serum 3.8 g/dL (3.2-5.0); Alkaline Phosphatase 102 U/L (45-117); Anion Gap 6 (5-15); BUN 12 mg/dL (7-18); BUN/Creat Ratio 14.2 RATIO (10-20); Calcium,Total 9.2 mg/dL (8.5-10.1); Chloride 102 mmol/L (98-107); Creatinine, Serum 0.84 mg/dL (0.70-1.30); EST Glomerular Filtration Rate 99 mL/min (>60); Est Glom Filt Rate - Afr Amer 120 mL/min (>60); Globulin 4.4 g/dL (2.2-4.2); Glucose 103 mg/dL (74-106); Potassium 4.4 mmol/L (3.5-5.1); Protein, Total 8.2 g/dL (6.4-8.2); Sodium Level 135 mmol/L (136-145); Troponin-I HS < 3 pg/mL (3.0-78.0)
[2021-09-16] MEDS: 0.9% Normal Saline 1,000 ML 1000 ML IV (16:26)
[2021-09-16 16:37] LABS: Mucous, Urine 0 SEEN /hpf (<or=2+); Red Blood Cells-Urine 0 SEEN /hpf (0-5); Squamous Epithelial Cells - UA 0 SEEN /hpf (0-5); White Blood Cells 0 SEEN /hpf (0-5)
[2021-09-16 16:57] LABS: Color, Urine Yellow (Yellow); Glucose, Dipstick Normal (Normal); Ketone-Dipstick Negative (Negative); Leukocyte Esterase-Dipstick Negative /ul (Negative); Nitrite-Dipstick Negative (Negative); Occult Blood-Urine Negative /ul (Negative); Protein-Dipstick Negative (Negative); Urine Bilirubin Dipstick Negative (Negative); Urine Clarity Clear (Clear); Urine Urobilinogen Normal (Normal); Urine pH 6.5 (5.0 - 8.0)
[2021-09-16 17:15] LABS: Bacteria RARE /hpf (None Seen)
[2021-09-16 17:32] VITALS: BP 157/79; PULSE 62; RESP 17; O2SAT 98
[2021-09-16 17:39] LABS: Differential Comment SCANNED
[2021-09-16 17:40] LABS: Differential Indicated SCAN CRITERIA MET
[2021-09-16] MEDS: diazePAM 5 MG Tablet 2.5 MG PO (18:22)
[2021-09-16 19:12] VITALS: BP 140/75; PULSE 61; RESP 16; O2SAT 97
== END 2021-09-16 19:49 | disposition home or self-care (01) ==
PROVIDERS: Emergency Provider Emergency Medicine; PCP Family Medicine; Visit Provider Emergency Medicine
DX: R42 Dizziness and giddiness (principal); F17.210 Nicotine dependence, cigarettes, uncomplicated; I10 Essential (primary) hypertension; L40.9 Psoriasis, unspecified; K21.9 Gastro-esophageal reflux disease without esophagitis; D75.1 Secondary polycythemia; M19.90 Unspecified osteoarthritis, unspecified site; Z79.82 Long term (current) use of aspirin; Z79.899 Other long term (current) drug therapy; R01.1 Cardiac murmur, unspecified
CPT/HCPCS: 70450; 80053; 81001; 84484; 85025; 96360; 99285; J7030; A4216

== ENCOUNTER → 2021-11-13 | Outpatient (CLI) | payer MEDICAID, SELFPAY ==
--- NOTE | 2021-11-13 13:31 | RAD_ITS ---
STUDY: X-RAY - CERVICAL SPINE REASON FOR EXAM: Male, 60 years old. NECK PAIN TECHNIQUE: 3 view(s) of the cervical spine were obtained. COMPARISON: None FINDINGS: Vertebral bodies are normal in height. No definite fracture demonstrated. No subluxation. Disc space narrowing with osteophytes C5-C7. Facet arthropathy at multiple levels. Prevertebral soft tissues are unremarkable. RAD/Cerv Spine 2 or 3 Views IMPRESSION: Degenerative changes. No evidence of fracture or subluxation. Electronically Signed: Jennifer Cisneros MD at 7:56 EDT ,
== END | disposition home or self-care (01) ==
LOC: RAD 13:29
PROVIDERS: PCP Family Medicine; Referring Provider Anesthesiology Pain Medicine; Visit Provider Anesthesiology Pain Medicine
DX: M50.30 Other cervical disc degeneration, unspecified cervical region (principal)
CPT/HCPCS: 72040

== ENCOUNTER → 2021-12-04 | Outpatient (CLI) | payer MEDICAID, SELFPAY ==
[2021-12-04 16:01] LABS: Hepatitis B Surface Antibody Non-Reactive; Hepatitis B Surface Antigen Non-Reactive (Nonreactive); Hepatitis C Antibody Non-Reactive (Nonreactive)
[2021-12-06 21:07] LABS: QNTFERON TB Mitogen Value > 10.00 IU/mL (.); QNTFERON TB Nil Value 0 IU/mL (.); QNTFERON TB1+ Ag Value 0.02 IU/mL (.); QNTFERON TB2+ Ag Value 0.02 IU/mL (.)
[2021-12-07 09:13] LABS: Hepatitis B Core Ab Total Negative (Negative); QNTIFERON TB Positive Criteria Negative (Negative)
== END | disposition home or self-care (01) ==
LOC: MTLAB 11:22
PROVIDERS: PCP Family Medicine; Referring Provider Physician Assistant; Visit Provider Physician Assistant
DX: L40.0 Psoriasis vulgaris (principal); Z79.899 Other long term (current) drug therapy
CPT/HCPCS: 36415; 86480; 86704; 86706; 86803; 87340

== ENCOUNTER 2022-01-17 19:56 | Emergency (ER) | payer MEDICAID, SELFPAY ==
[2022-01-17 19:57] VITALS: BP 160/75; PULSE 80; RESP 19; TEMP 36.4; O2SAT 80; BMI 22.8
--- NOTE | 2022-01-17 20:19 | CT_ITS ---
STUDY: CT Abdomen And Pelvis W/ Contrast Injection 01/17/2022 9:44 PM REASON FOR EXAM: Male, 61 years old. ABDOMINAL PAIN LLQ and suprapubic pain TECHNIQUE: Transaxial images were obtained without oral contrast, and with IV 100mL Isovue-370 intravenous contrast. Individualized dose optimization techniques were used for this CT. COMPARISON: 09.20.20Mar 09 2021 2:39pm FINDINGS: The visualized lung bases are unremarkable. The visualized portions of the heart are within normal limits. Stable hypodensities of the liver. Unremarkable gallbladder and extrahepatic biliary system. Unremarkable spleen. Unremarkable pancreas.There is hepatomegaly with diffuse hepatic enlargement. Unremarkable bilateral adrenal glands. No acute findings of the right kidney. No acute findings of the left kidney. Unremarkable visualized stomach. Unremarkable small intestine. There is diverticulosis, with thickening of the colon wall, and pericolonic inflammation changes consistent with acute diverticulitis. There is non-visualization of the appendix. There are calcifications of the abdominal aorta. This is consistent for atherosclerotic disease. There is no abdominal aortic aneurysm. Unremarkable inferior vena cava. Subcentimeter mesenteric lymph nodes. Unremarkable urinary bladder. Trace free fluid in the pelvis. There is an umbilical hernia containing fat. There are diffuse degenerative changes of the visualized lumbar spine. Vacuum disc phenomenon. CT/Abdomen/Pelvis W IV Cont ONLY IMPRESSION: (NOT LISTED IN ORDER OF SIGNIFICANCE) There is sigmoid diverticulitis. There is no evidence to suggest abscess formation. Enlarged liver. Other findings as above. Electronically Signed: Giovani Fung MD at 21:48 EDT ,
--- NOTE | 2022-01-17 20:20 | EDS_ITS ---
HPI HPI - GI History of Present Illness Chief Complaint: Abd Pain Informant: patient Narrative Narrative: Patient presents with 2 or 3 days of suprapubic and left lower quadrant pain. It started slowly and slightly increased. He started drinking a lot of clear liquids because he has had diverticulitis before. He was originally treated for an episode of diverticulitis a year or so ago. He was given antibiotics. It got better and he did not finish the antibiotics. Next time he had symptoms he started some antibiotics until it got better. He took 2 of the antibiotics today also. This 1 course of antibiotics have crossed 3 episodes. He is not sure what they were. He has had no nausea vomiting and is able to eat and drink. But he has some diarrhea without blood now. No urinary symptoms. No fevers or chills. Is just slowly worsening. He wanted to come in to make sure it was diverticulitis and not something else. [facility] Medical History Arthritis Diverticulitis GERD (gastroesophageal reflux disease) Heart murmur Hypertension Polycythemia Psoriasis Vertigo Home Medications atorvastatin 20 mg tablet 20 mg PO QHS 09/17/15 [History Last Taken Unknown] nifedipine 30 mg tablet,extended release 30 mg PO DAILY raynauds syndrome [History Last Taken Unknown] omeprazole 10 mg capsule,delayed release 10 mg PO PRN PRN gerd 10/01/17 [History Last Taken Unknown] aspirin 81 mg tablet,delayed release 81 mg PO DAILY 09/20/20 [History Last Taken Unknown] fluoxetine 20 mg capsule 20 mg PO DAILY 09/20/20 [History Last Taken Unknown] ixekizumab 80 mg/mL subcutaneous auto-injector (Taltz Autoinjector) 80 mg subcut QMONTH 09/20/20 [History Last Taken Unknown] rizatriptan 10 mg disintegrating tablet 10 mg PO PRN PRN Migraine Headache 09/20/20 [History Last Taken Unknown] amitriptyline 50 mg tablet mg 01/17/22 [History Last Taken Unknown] amoxicillin 875 mg-potassium clavulanate 125 mg tablet 1 tab PO BID #20 tabs 01/17/22 [Rx Last Taken Unknown] losartan 25 mg tablet mg 01/17/22 [History Last Taken Unknown] ondansetron 4 mg disintegrating tablet 4 mg PO Q8H PRN nausea and vomiting #10 tabs 01/17/22 [Rx Last Taken Unknown] oxycodone-acetaminophen 5 mg-325 mg tablet (Percocet) 1 tab PO Q6H PRN pain 3 days #10 tabs 01/17/22 [Rx Last Taken Unknown] Allergy/AdvReac Type Severity Reaction Status Date / Time verapamil Allergy Rash Verified 01/17/22 19:59 Surgical History Hx of cardiac catheterization Social History Smoking Status: Current every day smoker tobacco type: cigarettes substance use type: does not use ROS ROS ED Constitutional Constitutional ED: Denies chills or fever(s) ENT ENT ED: Denies rhinorrhea Cardiovascular Cardiovascular: Denies palpitations Respiratory/Chest Respiratory/Chest: Denies cough or dyspnea Gastrointestinal Gastrointestinal: Reports abdominal pain and diarrhea; Denies constipation, melena, nausea or vomiting Genitourinary Genitourinary ED: Denies dysuria, hematuria or urinary frequency Musculoskeletal Musculoskeletal: Reports back pain and other Details: Patient has chronic back pain but no different. He has had injections in the past. He has no radicular symptoms Integumentary Denies rash Neurologic Neurologic: Denies paresthesias or weakness Endocrine Endocrinology: Denies polydipsia or polyuria Hematologic/Lymphatic Hematologic/Lymphatic: Denies easy bleeding or easy bruising Allergic/Immunologic Allergic/Immunologic ED: Denies urticaria EXAM Physical Exam Const Vital Signs: 01/17/22 19:57 Temperature 97.6 F L Temperature Source Temporal Pulse Rate 80 Respiratory Rate 19 H Blood Pressure 160/75 H Blood Pressure Mean 103 Pulse Ox 80 Oxygen Delivery Method Room Air Positive well nourished and well developed General Appearance ED: well developed and NAD; Negative for pallor HEENT Reports moist mucous membranes Eyes General Eye ED: Negative for scleral icterus Resp normal respiratory effort and clear to auscultation bilaterally Auscultation: Negative for rales Cardio regular rate and regular rhythm GI GI Narrative: Patient does have some mild tenderness left lower quadrant and suprapubic area. No rebound guarding or mass. No bruit. No CVA tenderness. Back/Spine no CVA tenderness Extremity General Extremety ED: Negative for edema or tenderness General Extremity: Negative for edema Neuro Sensorium / Orientation: alert Psych mental status grossly normal Skin no wounds General Skin Exam: Negative for jaundice or pallor Lesions: no lesions MDM MDM MDM Narrative Medical decision making narrative: Blood work does show an elevated white count. Hemoglobin platelets are normal. Electrolytes are overall normal. Urine is. CT scan does show diverticulitis but no sign of perforation. I will treat him with single antibiotic therapy Augmentin. We will give him meds for pain and nausea. He is encouraged to also do a bland/liquid diet as this is very beneficial. We discussed reasons to return. Lab Data Attestation: I reviewed the patient's lab results. Labs: Laboratory Results - last 24 hr 01/17/22 01/17/22 01/17/22 20:18 20:18 20:18 WBC 14.0 H RBC 6.11 Hgb 15.7 Hct 51.5 MCV 84.3 MCH 25.7 L MCHC 30.5 L RDW Std Deviation 66.1 H RDW Coeff of Eze 22.6 H Plt Count 296 MPV 8.9 Immature Gran % (Auto) 0.300 Neut % (Auto) 75.0 H Lymph % (Auto) 18.8 L [place] % (Auto) 4.5 Eos % (Auto) 1.0 Baso % (Auto) 0.4 Absolute Neuts (auto) 10.5 H Absolute Lymphs (auto) 2.63 Nucleated RBC % 0 Differential Comment SCANNED Anisocytosis 1+ Sodium 141 Potassium 3.7 Chloride 106 Carbon Dioxide 27.0 Anion Gap 8 BUN 10 Creatinine 0.83 Estim Creat Clear Calc 105.05 Est GFR (MDRD) Af Amer 122 Est GFR (MDRD) Non-Af 101 BUN/Creatinine Ratio 12.1 Glucose 96 Calcium 8.7 Urine Color Yellow Urine Clarity Clear Urine pH 6.0 Ur Specific [place] 1.015 Urine Protein Negative Urine Glucose (UA) Normal Urine Ketones Negative Urine Occult Blood 10 H Urine Nitrite Negative Urine Bilirubin Negative Urine Urobilinogen Normal Ur Leukocyte Esterase 25 H Urine RBC 0 SEEN Urine WBC 0-5 SEEN Ur Squamous Epith Cells 0 SEEN Urine Bacteria 0 SEEN Urine Mucus 0 SEEN Radiography Diagnostic Testing: Clinical Impression(s) from Imaging Studies Abdomen/Pelvis CT 01/17/22 20:19 IMPRESSION: (NOT LISTED IN ORDER OF SIGNIFICANCE) There is sigmoid diverticulitis. There is no evidence to suggest abscess formation. Enlarged liver. Other findings as above. Electronically Signed: Giovani Fung MD at 21:48 EDT , Discharge Plan Triage Chief Complaint: Abd Pain ED Provider: David Bustamante Dx/Rx/DC Orders Clinical Impression: Diverticulitis Instructions: ED Diverticulitis Prescriptions: New oxycodone-acetaminophen [Percocet] 5-325 mg tablet 1 tab PO Q6H PRN (Reason: pain) 3 Days Qty: 10 0RF ondansetron 4 mg tablet,disintegrating 4 mg PO Q8H PRN (Reason: nausea and vomiting) Qty: 10 0RF amoxicillin-pot clavulanate 875-125 mg tablet 1 tab PO BID Qty: 20 0RF No Action atorvastatin 20 MG tablet 20 mg PO QHS nifedipine 30 MG tablet extended release 30 mg PO DAILY omeprazole 10 MG capsule,delayed release(DR/EC) 10 mg PO PRN PRN (Reason: gerd) aspirin 81 mg tablet,delayed release (DR/EC) 81 mg PO DAILY Label Comments: TAKE 1 TABLET BY MOUTH EVERY DAY Taltz Autoinjector 80 mg/mL auto-injector 80 mg SUBCUT QMONTH rizatriptan 10 mg tablet,disintegrating 10 mg PO PRN PRN (Reason: Migraine Headache) Label Comments: TAKE 1 TABLET BY MOUTH NEEDED for migraine, may repeat in 2 (TWO) hours if needed fluoxetine 20 mg capsule 20 mg PO DAILY Label Comments: TAKE 1 CAPSULE BY MOUTH EVERY DAY amitriptyline 50 mg tablet Label Comments: TAKE 1 TABLET BY MOUTH DAILY AT BEDTIME losartan 25 mg tablet Label Comments: TAKE 1 TABLET BY MOUTH ONCE DAILY Primary Care Provider: Kenroy Larry Referrals: Kenroy Larry MD [Primary Care Provider] - 3-5 Days if not improving Disposition Disposition: Home, Self Care
[2022-01-17 20:27] LABS: Bacteria 0 SEEN /hpf (None Seen); Mucous, Urine 0 SEEN /hpf (<or=2+); Red Blood Cells-Urine 0 SEEN /hpf (0-5); Squamous Epithelial Cells - UA 0 SEEN /hpf (0-5)
[2022-01-17 20:28] LABS: Absolute Lymphocyte Count 2.63 X10^3/uL (0.83-4.51); Absolute Neutrophil Count 10.5 X10^3/uL (2.0-7.7); Basophil# 0.06 X10^3/uL; Basophil% 0.4 % (0-1); Eosinophil# 0.14 X10^3/uL; Hematocrit 51.5 % (40-54); Hemoglobin 15.7 g/dL (13.0-16.5); Lymphocyte # 2.63 X10^3/ul (0.83-4.51); Lymphocyte % 18.8 % (19-41); Mean Corp Hgb Conc 30.5 g/dL (32-36); Mean Corpuscular Hgb 25.7 pg (27.0-32.0); Mean Corpuscular Volume 84.3 fL (80-94); Mean Platelet Vol. 8.9 fl (6.2-12.0); Monocyte# 0.63 X10^3/uL; Monocyte% 4.5 % (0-10); NRBC Flagged by Analyzer 0 % (0-5); Neutrophil # 10.49 X10^3/uL (2.7-7.7); POSITIVE MORPHOLOGY YES; Platelet Count 296 K/mm3 (150-450); RBC Distribution Width CV 22.6 % (11.6-14.6); RBC Distribution Width SD 66.1 fl (35.1-43.9); Red Blood Count 6.11 M/mm3 (4.6-6.2)
[2022-01-17 20:38] LABS: Color, Urine Yellow (Yellow); Glucose, Dipstick Normal (Normal); Ketone-Dipstick Negative (Negative); Leukocyte Esterase-Dipstick 25 /ul (Negative); Nitrite-Dipstick Negative (Negative); Occult Blood-Urine 10 /ul (Negative); Protein-Dipstick Negative (Negative); Specific Gravity, Urine 1.015 (1.002-1.030); Urine Bilirubin Dipstick Negative (Negative); Urine Clarity Clear (Clear); Urine Urobilinogen Normal (Normal)
[2022-01-17 20:40] LABS: Differential Indicated SCAN CRITERIA MET
[2022-01-17 20:51] LABS: White Blood Cells 0-5 SEEN /hpf (0-5)
[2022-01-17 21:00] LABS: Anisocytosis 1+; Differential Comment SCANNED
[2022-01-17 21:08] LABS: Anion Gap 8 (5-15); BUN 10 mg/dL (7-18); BUN/Creat Ratio 12.1 RATIO (10-20); Calcium,Total 8.7 mg/dL (8.5-10.1); Chloride 106 mmol/L (98-107); Creatinine, Serum 0.83 mg/dL (0.70-1.30); EST Glomerular Filtration Rate 101 mL/min (>60); Est Glom Filt Rate - Afr Amer 122 mL/min (>60); Estimated Creatinine Clearance 105.05 ml/min; Glucose 96 mg/dL (74-106); Potassium 3.7 mmol/L (3.5-5.1); Sodium Level 141 mmol/L (136-145)
[2022-01-17 22:00] VITALS: BP 160/80; PULSE 75; RESP 16; O2SAT 97
[2022-01-17] MEDS: Amox/Clavulanate 875 MG Tablet PO (22:17)
[2022-01-17] MEDS: Morphine 2 MG/ML Syringe IV (22:18)
[2022-01-17] MEDS: Ondansetron 4 MG/2 ML Vial IV (22:18)
[2022-01-17 22:32] VITALS: BP 160/80; PULSE 64; RESP 16; O2SAT 98
== END 2022-01-17 22:37 | disposition home or self-care (01) ==
PROVIDERS: Emergency Provider Emergency Medicine; PCP Family Medicine; Visit Provider Emergency Medicine
DX: K57.32 Diverticulitis of large intestine without perforation or abscess without bleeding (principal); I10 Essential (primary) hypertension; F17.210 Nicotine dependence, cigarettes, uncomplicated; K21.9 Gastro-esophageal reflux disease without esophagitis; Z87.19 Personal history of other diseases of the digestive system; L40.9 Psoriasis, unspecified; Z79.82 Long term (current) use of aspirin; Z79.899 Other long term (current) drug therapy
CPT/HCPCS: 74177; 80048; 81001; 85025; 96361; 96374; 96375; 99283; J7040; Q9967; A4216; J2405

== ENCOUNTER → 2022-03-12 | Outpatient (CLI) | payer MEDICAID, SELFPAY ==
--- NOTE | 2022-03-12 09:54 | RAD_ITS ---
STUDY: X-RAY - LEFT KNEE REASON FOR EXAM: Male, 61 years old. Left knee pain. TECHNIQUE: 2 view(s) of the knee. COMPARISON: None. FINDINGS: Osteopenia. Superior patellar spur. Mild arthrosis of the medial femorotibial compartment. Mild arthrosis of the lateral femorotibial compartment. Mild arthrosis of the patellofemoral compartment. Small suprapatellar joint effusion. RAD/Knee 1 or 2 Views IMPRESSION: Osteopenia, superior patellar spur, mild tricompartmental arthrosis and small joint effusion. No acute abnormality, chondrocalcinosis or erosive changes. Electronically Signed: Fernando Haji, at 10:32 EST ,
== END | disposition home or self-care (01) ==
LOC: RAD 09:49
PROVIDERS: PCP Family Medicine; Visit Provider Anesthesiology Pain Medicine
DX: M25.562 Pain in left knee (principal)
CPT/HCPCS: 73560

== ENCOUNTER 2022-08-17 13:00 | Outpatient (RCR) | payer MEDICAID, SELFPAY ==
--- NOTE | 2022-07-22 08:51 | HP.OTEVAL ---
Patient's Visit Information SALBADOR FARNSWORTH is a 61 year old M, referred to Occupational Therapy by MALATHI DENNIS, with a diagnosis of Right Dupuytren's contracture. Date of Evaluation: 07/20/22 Occupational Therapist: Karolyn Woods, OTR/Adeline, CHT - Subjective This 61 year old male was seen for OT eval with dx of right Dupuytren's contracture. Pt state he struggles with the contracture for some time- even had xiaflex injection with fair success for awhile. Pt states contracture did return and involved his MF, RF and LF. Pt states he is feeling better since sx but still has opened wound, a few stitches left and feeling of stiffness and limited ROM. DOS :Sx was on 06/25/22 order for therapy was received on 07/09/22. pt arrives in our facility at 3 weeks and 4 days s/p open Dupuytren's release. pt arrives states his dog ate his splint. States he only had it about two weeks. pt currently unemployed - Pain right hand 5 Pain Intensity Range: 4, 5 - Objective open wound 1 1/4 x 1/4 - ROM MP: right IF -30/80 MF -35/75 RF -10/ 75 LF -10/80 PIP: right IF 0/90 MF -15/75 RF -30/85 LF -35/ 95 DIP: right IF 0/55 MF +15/60 RF +20/45 LF +20/60 ROM Comments: pt demo with limited ROM - Strength Regional Environmental Manager: right NT left 85* Lateral Pinch: right NT left 16# Tripod Pinch: right NT left 20# Strength Comments: will test later date - Sensation Sensation Comments: denies tingling/. inching - Quick DASH-Disab of Arm,Shoulder& Hand Quick DASH Score: 45.4525 - Goals Goal:Daily scar massage when approriate: Yes Goal:ROM equal to unaffected hand: Yes Goal:Regional Environmental Manager/Pinch strength at least 75% of unaffected hand: Yes Goal:No pain with affected hand use: Yes Goal:Full use of affected hand in daily activities including: Yes Goal:Decrease scar hypersensitivity: Yes - Rehabilitation General Assessment: pt arrives 3 weeks and 4 days s/p from open release of right MF, RF and SM. Pt demo with open wound and stitches still present in MF and RF. pt unable to use right hand with ADLs and IADLs at this time due to healing structures. Pt demo need for skilled OT services 1-2 x week for 6 weeks to return pt to PLOF, francisco javier. new custom orthosis and ed. pt on scar mtg, and returning to use of right hand with ADLs. Pt demo understanding and agrees to POC. Rehabilitation Potential: Good - Anticipated Interventions A/AAROM/PROM, Strengthening, Scar Care, Triggerpoint Release, Modalities, Orthoses, Ergonomic Education, Fine Motor Coord/Blaze, ADL Training, Education re assistive Equipment, Education re Diagnosis, Home Program - Visit Plan TEXT: Thank you for the opportunity to evaluate your patient. For Medicare and Medicare HMO plans, please review the plan of care and approve it. It will need to be FAXED BACK to us at [phone] for Medicare purposes. Please let me know if there are questions or concerns regarding this plan of care. Physician Signature: Date:
--- NOTE | 2022-12-04 10:07 | HP.OT.NRP ---
Patient Information Patient Information: SALBADOR FARNSWORTH was seen in my office for initial evaluation on 07/20/22. The following Plan of Care was established for this patient: Anticipated Interventions Anticipated Interventions: A/AAROM/PROM, Strengthening, Scar Care, Triggerpoint Release, Modalities, Orthoses, Ergonomic Education, Fine Motor Coord/Blaze, ADL Training, Education re assistive Equipment, Education re Diagnosis and Home Program Last Seen Last Seen: This patient was last seen in our office 08/17/22. Pertinent comments regarding their Occupational therapy will appear below: pt was seen 3 OT session. At this time no further apts have been scheduled and due to time lapse in services pt d/c. At this point I will be discontinuing this patient from occupational therapy. I would be happy to see this patient again in the future if found appropriate by the physician. Thank you! Karolyn Woods, OTR/L, CHT
== END 2022-08-17 19:00 | disposition home or self-care (01) ==
LOC: OT 13:00
PROVIDERS: PCP Family Medicine
DX: M72.0 Palmar fascial fibromatosis [Dupuytren] (principal)
CPT/HCPCS: 97166; 97530

== ENCOUNTER → 2023-03-10 | Outpatient (CLI) | payer MEDICAID, SELFPAY ==
[2023-03-12 17:07] LABS: Hepatitis B Core Ab Total Negative (Negative); QNTFERON TB Mitogen Value > 10.00 IU/mL (.); QNTFERON TB Nil Value 0 IU/mL (.); QNTFERON TB1+ Ag Value 0 IU/mL (.); QNTFERON TB2+ Ag Value 0 IU/mL (.); QNTIFERON TB Positive Criteria Negative (Negative)
== END | disposition home or self-care (01) ==
LOC: MTLAB 13:57
PROVIDERS: PCP Family Medicine; Referring Provider Physician Assistant Medical; Visit Provider Physician Assistant Medical
DX: L40.0 Psoriasis vulgaris (principal); Z79.899 Other long term (current) drug therapy; F17.200 Nicotine dependence, unspecified, uncomplicated
CPT/HCPCS: 36415; 86480; 86704

== ENCOUNTER → 2023-03-18 | Outpatient (CLI) | payer MEDICAID, SELFPAY ==
[2023-03-18 16:18] LABS: Amphetamine Urine VISTA NEGATIVE (<1000 ng/mL); Barbiturate Urine VISTA NEGATIVE (< 200 ng/mL); Benzodiazepine Urine VISTA NEGATIVE (< 200 ng/mL); Cocaine Urine VISTA NEGATIVE (< 300 ng/mL); Ecstacy Urine VISTA NEGATIVE (< 500 ng/mL); Methadone Urine VISTA NEGATIVE (< 300 ng/mL); PCP Urine VISTA NEGATIVE (< 25 ng/mL); THC Urine VISTA NEGATIVE (< 50 ng/mL); Vista UDS pH Range 6
== END | disposition home or self-care (01) ==
LOC: LAB 15:48
PROVIDERS: PCP Family Medicine; Visit Provider Anesthesiology Pain Medicine
DX: F11.20 Opioid dependence, uncomplicated (principal)
CPT/HCPCS: 80307

== ENCOUNTER 2023-06-07 13:26 | Inpatient (IN) | payer MEDICAID, SELFPAY ==
[2023-06-07] VITALS (13 sets, daily range): BP systolic 107–156; BP diastolic 56–88; PULSE 72–98; RESP 16–24; TEMP 35.9–37.1; O2SAT 87–100; BMI 26.4; BMI 25.9
[2023-06-07 14:09] LABS: Absolute Neutrophil Count 9.5 X10^3/uL (2.0-7.7); Basophil# 0.08 X10^3/uL; Basophil% 0.6 % (0-1); Eosinophils% 1.6 % (0-5); Lymphocyte % 18.2 % (19-41); Mean Corpuscular Volume 86.5 fL (80-94); Mean Platelet Vol. 8.7 fl (6.2-12.0); Monocyte# 0.53 X10^3/uL; Monocyte% 4.2 % (0-10); NRBC Flagged by Analyzer 0.2 % (0-5); Neutrophil # 9.45 X10^3/uL (2.7-7.7); Neutrophil % 74.8 % (47-70); POSITIVE COUNT YES; Platelet Count 588 K/mm3 (150-450); RBC Distribution Width CV 15.3 % (11.6-14.6); RBC Distribution Width SD 48.1 fl (35.1-43.9); Red Blood Count 2.08 M/mm3 (4.6-6.2); White Blood Count 12.6 K/mm3 (4.4-11.0)
[2023-06-07 14:12] LABS: Hemoglobin 5.4 g/dL (13.0-16.5)
[2023-06-07 14:26] LABS: Anion Gap 10 (5-15); BUN 15 mg/dL (7-18); BUN/Creat Ratio 13.9 RATIO (10-20); Calcium,Total 9.1 mg/dL (8.5-10.1); Chloride 107 mmol/L (98-107); Creatinine, Serum 1.08 mg/dL (0.70-1.30); EST Glomerular Filtration Rate 74 mL/min (>60); Est Glom Filt Rate - Afr Amer 89 mL/min (>60); Glucose 114 mg/dL (74-106); Potassium 3.9 mmol/L (3.5-5.1); Sodium Level 139 mmol/L (136-145); Troponin-I HS 7 pg/mL (3.0-78.0)
--- NOTE | 2023-06-07 14:33 | CT_ITS ---
STUDY: CT ABDOMEN AND PELVIS WITH CONTRAST REASON FOR EXAM: Male, 62 years old. Abdominal pain RADIATION DOSAGE (If Supplied By Facility): CTDIvol = ( 13.42 ) mGy, DLP = ( 869.52 ) mGycm TECHNIQUE: IV 100mL Isovue-370 was administered. Transaxial images were obtained from the dome of the diaphragm to the symphysis pubis. Multiplanar coronal and sagittal images were reformatted. Individualized Dose Optimization Techniques Were Used For This CT. COMPARISON: Prior study dated: 01/17/2022 FINDINGS: The visualized lung bases demonstrate mild atelectasis or scarring in the lingula. The visualized portions of the heart are within normal limits. Hepatic steatosis. Normal gallbladder and extrahepatic biliary system. Normal spleen. Normal pancreas. Normal bilateral adrenal glands. Normal visualized stomach. Lumen caliber small bowel loops. Left-sided colostomy. The appendix is visualized and appears normal. Normal abdominal aorta. No retroperitoneal adenopathy. Normal right kidney. 1 cm hypodense lesion in the left kidney likely representing cyst. No evidence of hydronephrosis. Normal urinary bladder. Diastases of the anterior rectus muscles and tiny umbilical hernia containing fat. Degenerative changes of the lower lumbar spine. CT/Abdomen/Pelvis W IV Cont ONLY IMPRESSION: 1. No focal acute inflammatory process. 2. Left sided colostomy. 3. Hepatic steatosis. Electronically Signed: Triston العلي MD at 15:45 EST ,
[2023-06-07] MEDS: fentaNYL 100 MCG/2 ML Ampul 50 MCG IV (14:41)
[2023-06-07] MEDS: Pantoprazole Sodium 80 MG in 0.9% Normal Saline (50mL Bag) 15 ML 420 MG IV BOLUS (15:02)
[2023-06-07] MEDS: 0.9% Normal Saline (1000mL) 1,000 ML 1000 ML IV (15:02)
[2023-06-07 15:17] LABS: AST(SGOT) 10 U/L (15-37); Alanine Aminotransfer ALT/SGPT 23 U/L (16-61); Albumin, Serum 3.4 g/dL (3.2-5.0); Alkaline Phosphatase 91 U/L (45-117); Globulin 4.4 g/dL (2.2-4.2); Lipase 30 U/L (13-75); Protein, Total 7.8 g/dL (6.4-8.2)
--- NOTE | 2023-06-07 15:25 | RAD_ITS ---
INDICATION: chest pain EXAMINATION/TECHNIQUE: X-RAY - XR Chest 1 View COMPARISON: No relevant prior comparison study available FINDINGS: LINES/DEVICES: None. LUNGS: No consolidation, edema or effusion. No pneumothorax. MEDIASTINUM AND CARDIOVASCULAR STRUCTURES: Cardiac silhouette not enlarged. Central airways and mediastinal contour are unremarkable. BONES AND SOFT TISSUES: Unremarkable. RAD/Chest 1 View (Portable) IMPRESSION: No radiographic evidence of acute cardiopulmonary disease. Electronically Signed: Triston العلي MD at 15:38 EST ,
--- NOTE | 2023-06-07 16:07 | NURSING ---
DR ORO FOR DR OLIVA
[2023-06-07] MEDS: Pantoprazole Sodium 80 MG in 0.9% Normal Saline (100mL Bag) 80 ML 10 MG CONT INF (16:22)
--- NOTE | 2023-06-07 16:23 | NURSING ---
MED SURG GI BLEED ORO
--- NOTE | 2023-06-07 16:27 | PCM.HP.STD ---
HPI - General General Date of Admission: 06/07/23 Date of Service: 06/07/23 Chief Complaint: Dizziness and weakness HPI Narrative SALBADOR FARNSWORTH, is a 62-year-old male history of arthritis, hypertension, GERD, psoriasis, Raynaud's, anxiety, migraines presented to [facility] ED 06/07/2023 due to presyncope in the shower, weakness, and black stool in colostomy bag. Last August patient went to [place] and had perfect diverticulitis and had to have colostomy, has not been able to have it reversed with Dr. Parra yet as patient was still smoking though now he has been tobacco free. Also went to [place] about a month and a half ago and had a blue leg and required a femoral bypass emergently and is on Xarelto. Has been having jet black stool in his colostomy for about a month and has begun to develop some generalized weakness and lightheadedness. In the ED he was found to have a hemoglobin of 5.4 and FOBT positive. GI contacted who recommended admission and that he would be seen in consult. Patient given 2 units packed red blood cells in ED and started on Protonix drip, hospitalist contacted for admission. Patient evaluated at bedside with present, they report history as above and that he had his emergent bypass in October in [place] and then had some sort of revision/repair May 14 that is not in our system. He is continue to have some problems with swelling and pain in that leg and reports that sometimes he will get spasms there and spasms in his abdomen but they occur at random and does not have any other abdominal pain, has been having intermittent black stools for about a month and they will be black and then somewhat clear up and then will be black again, over the past 2 to 3 days he has been short of breath, lightheaded, weak and had an episode of presyncope earlier today prompting him to come to the ED. Denies any cough or chest pain. [facility] Medical History (Updated 06/07/23 @ 16:[address] Amber Gonzalez MD) Arthritis Diverticulitis GERD (gastroesophageal reflux disease) Heart murmur Hypertension Polycythemia Psoriasis Vertigo Home Medications atorvastatin 20 mg tablet 20 mg PO QHS 09/17/15 [History Last Taken Unknown] nifedipine 30 mg tablet,extended release 30 mg PO DAILY raynauds syndrome 09/17/15 [History Last Taken Unknown] omeprazole 10 mg capsule,delayed release 10 mg PO PRN PRN gerd 10/01/17 [History Last Taken Unknown] aspirin 81 mg tablet,delayed release 81 mg PO DAILY 09/20/20 [History Last Taken Unknown] fluoxetine 20 mg capsule 20 mg PO DAILY 09/20/20 [History Last Taken Unknown] ixekizumab 80 mg/mL subcutaneous auto-injector (Taltz Autoinjector) 80 mg subcut QMONTH 09/20/20 [History Last Taken Unknown] rizatriptan 10 mg disintegrating tablet 10 mg PO PRN PRN Migraine Headache 09/20/20 [History Last Taken Unknown] amitriptyline 50 mg tablet 50 mg PO QHS 01/17/22 [History Last Taken Unknown] losartan 25 mg tablet 25 mg PO DAILY 01/17/22 [History Last Taken Unknown] ondansetron 4 mg disintegrating tablet 4 mg PO Q8H PRN nausea and vomiting #10 tabs 01/17/22 [Rx Last Taken Unknown] oxycodone-acetaminophen 5 mg-325 mg tablet (Percocet) 1 tab PO Q6H PRN pain 3 days #10 tabs 01/17/22 [Rx Last Taken Unknown] Allergy/AdvReac Type Severity Reaction Status Date / Time verapamil Allergy Rash Verified 01/17/22 19:59 Surgical History Hx of cardiac catheterization Social History Smoking Status: Former smoker substance use type: does not use ROS ROS Narrative General: very cold today HENT: Denies headache, denies stuffy nose, denies sore throat EYES: Denies changes in vision Resp: Denies cough, has been short of breath over the past couple of days Cardiac: Denies chest pain GI: Every now and then gets abdominal spasms that do not seem to be associated with anything else, intermittent black stools in ostomy over the past 1 month, denies nausea/vomiting : Denies changes in urination Extremity: Still gets some swelling and pain in his right lower extremity MSK: Generalized weakness Neuro: Denies any numbness/tingling, presyncopal episode earlier Heme: Denies any bleeding or bruising Skin: Denies rashes Psychiatric: No complaints voiced Vital Signs Vital Signs Vital Signs: 06/07/23 13:27 06/07/23 14:32 06/07/23 14:35 Temperature 97.1 F L Temperature Source Temporal Pulse Rate 98 Respiratory Rate 22 H Respiratory Effort Short of Breath Respiratory Pattern Tachypnea Blood Pressure 125/63 H Blood Pressure Mean 83 Pulse Ox 87 Oxygen Delivery Method Room Air Room Air 06/07/23 15:26 06/07/23 15:59 06/07/23 16:14 Temperature 98.0 F 96.7 F L Temperature Source Oral Temporal Pulse Rate 86 77 85 Respiratory Rate 24 H 24 H 24 H Respiratory Effort Respiratory Pattern Blood Pressure 131/62 H 123/59 H 132/56 H Blood Pressure Mean 85 80 81 Pulse Ox 96 100 98 Oxygen Delivery Method Room Air Room Air Room Air Weight Weight: 90.7 kg Body Mass Index (BMI) 26.4 Physical Exam Narrative General: Alert, oriented HEENT: Atraumatic, normocephalic Eyes: Anicteric, normal conjunctiva, extraocular movements grossly intact Neck: Supple Respiratory: Clear to auscultation bilaterally, normal respiratory effort Cardiovascular: Regular rate and rhythm GI: Soft, nontender, nondistended, black stool present in ostomy Extremities: Right lower extremity warm, slightly swollen compared to left, has healing incision present on inside of right calf/knee Musculoskeletal: Moving all extremities Neuro: No overt focal neurological deficits Skin: No rashes appreciated Psych: Cooperative Results Lab / Micro Data 06/07/23 13:53 06/07/23 13:55 Labs: Laboratory Results - last 24 hr 06/07/23 13:53: WBC 12.6 H, RBC 2.08 L, Hgb 5.4 L*, Hct 18.0 L, MCV 86.5, MCH 26.0 L, MCHC 30.0 L, RDW Std Deviation 48.1 H, RDW Coeff of Eze 15.3 H, Plt Count 588 H, MPV 8.7, Immature Gran % (Auto) 0.600, Neut % (Auto) 74.8 H, Lymph % (Auto) 18.2 L, Story % (Auto) 4.2, Eos % (Auto) 1.6, Baso % (Auto) 0.6, Absolute Neuts (auto) 9.5 H, Absolute Lymphs (auto) 2.30, Nucleated RBC % 0.2, Diff Path Review August, Blood Type O POSITIVE, Antibody Screen NEGATIVE, Crossmatch See Detail 06/07/23 13:55: Sodium 139, Potassium 3.9, Chloride 107, Carbon Dioxide 22.0, Anion Gap 10, BUN 15, Creatinine 1.08, Est GFR (MDRD) Af Amer 89, Est GFR (MDRD) Non-Af 74, BUN/Creatinine Ratio 13.9, Glucose 114 H, Calcium 9.1, Total Bilirubin 0.40, Direct Bilirubin 0.10, AST 10 L, ALT 23, Alkaline Phosphatase 91, Troponin I High Sens 7, Total Protein 7.8, Albumin 3.4, Globulin 4.4 H, Lipase 30 Micro: Microbiology 06/07/23 14:30 Stool Stool Occult Blood (VENKATA) - Final Occult Blood Positive Imaging Radiology Impression Abdomen/Pelvis CT 06/07/23 14:33 IMPRESSION: 1. No focal acute inflammatory process. 2. Left sided colostomy. 3. Hepatic steatosis. Electronically Signed: Triston لاعلي MD at 15:45 EST Reading Location ID and State: [address] [place] [address] Tel , Service support , Chest X-Ray 06/07/23 15:25 IMPRESSION: No radiographic evidence of acute cardiopulmonary disease. Electronically Signed: Triston العلي MD at 15:38 EST Reading Location ID and State: [facility] / [place] Tel , Service support , Assessment & Plan Assessment/Plan (1) GI bleed: (2) Popliteal artery injury: (3) Psoriasis: (4) Raynaud disease: PLAN: Plan #GI bleed and near syncope -Hemoglobin 5.4 in ED, last value here was in 2021 and was 15.7 and appears hemoglobin prior to that actually runs high -Fecal occult positive -Type and cross with plan to transfuse 2 units -Trend H&H -PPI IV -GI consult -NPO at midnight -AC as below #Recent vascular surgery on R leg -Vascular surgery in October in [place] with a revision/repair May 14 at outlying facility -Unclear exactly what patient had done -Discussed with vascular surgeon, will hold Xarelto in favor of a low-dose fixed rate heparin drip that can be turned off if further drops in hemoglobin after transfusions -It was advised to continue aspirin at this time -Will request records -Also advised to get a CT abdomen with aorta runoff bilaterally -Will place vascular surgery consult, appreciate recommendations #Thrombocytosis -Possibly secondary to inflammation versus iron deficiency -Trend #GERD -PPI #Hx psoriasis -Uses ixekizumab on outpt basis # Raynaud's's -Supportive care, hold nifedipine d/t presyncopal episode #Anxiety -Continue prozac Time spent in the patient's overall evaluation,decision-making process, review of diagnostic data, adjustment of management, discussion with other providers, nursing nursing and ancillary staff involved in patient's care documentation, 61 minutes Charges/Coding Visit Charges Inpatient E&M: 33284 Init Hosp L2
--- NOTE | 2023-06-07 16:41 | ED.VIS.GI ---
HPI HPI - GI History of Present Illness Chief Complaint: Weakness Narrative Narrative: 62-year-old male presenting with lightheadedness, weakness, black stools colostomy bag. Patient states that in August last year he was on a trip to [place] when he had emergency surgery for diverticulitis and is up to have the colostomy bag. He states he follows with Dr. Parra here in the area and was going to be scheduled for colostomy reversal however Dr. Parra was waiting for the patient to quit smoking which she has done for now greater than 40 days. Patient states recently in the last month and a half went to [place] where he ended up having a cold right lower extremity and had to get emergency femoropopliteal surgery and is on Xarelto at this point. He notes that prior to the surgery he did have some black stool in his colostomy which had resolved. He also notes that after his femoropopliteal surgery he had to get a unit of blood transfusion which was presumably due to blood loss to the femoropopliteal surgery. [facility] Medical History Arthritis Diverticulitis GERD (gastroesophageal reflux disease) Heart murmur Hypertension Polycythemia Psoriasis Vertigo Home Medications atorvastatin 20 mg tablet 20 mg PO QHS 09/17/15 [History Last Taken Unknown] nifedipine 30 mg tablet,extended release 30 mg PO DAILY raynauds syndrome 09/17/15 [History Last Taken Unknown] omeprazole 10 mg capsule,delayed release 10 mg PO PRN PRN gerd 10/01/17 [History Last Taken Unknown] aspirin 81 mg tablet,delayed release 81 mg PO DAILY 09/20/20 [History Last Taken Unknown] fluoxetine 20 mg capsule 20 mg PO DAILY 09/20/20 [History Last Taken Unknown] ixekizumab 80 mg/mL subcutaneous auto-injector (Taltz Autoinjector) 80 mg subcut QMONTH 09/20/20 [History Last Taken Unknown] rizatriptan 10 mg disintegrating tablet 10 mg PO PRN PRN Migraine Headache 09/20/20 [History Last Taken Unknown] amitriptyline 50 mg tablet 50 mg PO QHS 01/17/22 [History Last Taken Unknown] losartan 25 mg tablet 25 mg PO DAILY 01/17/22 [History Last Taken Unknown] ondansetron 4 mg disintegrating tablet 4 mg PO Q8H PRN nausea and vomiting #10 tabs 01/17/22 [Rx Last Taken Unknown] oxycodone-acetaminophen 5 mg-325 mg tablet (Percocet) 1 tab PO Q6H PRN pain 3 days #10 tabs 01/17/22 [Rx Last Taken Unknown] Allergy/AdvReac Type Severity Reaction Status Date / Time verapamil Allergy Rash Verified 01/17/22 19:59 Surgical History Hx of cardiac catheterization Social History Smoking Status: Former smoker substance use type: does not use ROS ROS ED Constitutional Constitutional ED: Denies chills, fever(s) or sweats Eyes Eyes: Denies blurry vision or change in vision ENT ENT ED: Denies ear pain or sore throat Cardiovascular Cardiovascular: Denies chest pain, palpitations or racing heartbeat Respiratory/Chest Respiratory/Chest: Denies cough, dyspnea or sputum Gastrointestinal Gastrointestinal: Reports abdominal pain and melena; Denies constipation, diarrhea, nausea or vomiting Genitourinary Genitourinary ED: Denies dysuria, hematuria or urinary frequency Musculoskeletal Musculoskeletal: Denies arthralgias, myalgias or neck pain Integumentary Denies abscess, Abrasions or rash Neurologic Neurologic: Denies headache(s), paresthesias or weakness Psychiatric Psychiatric: Denies anxiety, depression, suicidal ideation or suicidal thoughts Endocrine Endocrinology: Denies polydipsia or polyuria EXAM Physical Exam Const Vital Signs: 06/07/23 13:27 06/07/23 14:32 06/07/23 14:35 Temperature 97.1 F L Temperature Source Temporal Pulse Rate 98 Respiratory Rate 22 H Respiratory Effort Short of Breath Respiratory Pattern Tachypnea Blood Pressure 125/63 H Blood Pressure Mean 83 Pulse Ox 87 Oxygen Delivery Method Room Air Room Air 06/07/23 15:26 06/07/23 15:59 06/07/23 16:14 Temperature 98.0 F 96.7 F L Temperature Source Oral Temporal Pulse Rate 86 77 85 Respiratory Rate 24 H 24 H 24 H Respiratory Effort Respiratory Pattern Blood Pressure 131/62 H 123/59 H 132/56 H Blood Pressure Mean 85 80 81 Pulse Ox 96 100 98 Oxygen Delivery Method Room Air Room Air Room Air 06/07/23 16:29 Temperature 96.7 F L Temperature Source Pulse Rate 78 Respiratory Rate 22 H Respiratory Effort Respiratory Pattern Blood Pressure 132/56 H Blood Pressure Mean 81 Pulse Ox 99 Oxygen Delivery Method Positive well nourished General Appearance ED: NAD; Negative for pallor HEENT Reports moist mucous membranes normocephalic Eyes PERRL General Eye ED: Negative for pale conjunctiva or scleral icterus Resp normal respiratory effort and clear to auscultation bilaterally Auscultation: Negative for rales or rhonchi Cardio regular rate and regular rhythm GI GI Narrative: Generalized abdominal tenderness. Colostomy bag with black stool. Neuro CN's II-XII intact bilaterally Sensorium / Orientation: alert Motor Exam: strength 5/5 throughout Psych mental status grossly normal Skin General Skin Exam: Negative for jaundice or pallor MDM MDM MDM Narrative Medical decision making narrative: Patient presenting with weakness, lightheadedness, concern for black stool in his colostomy bag. It does sound like he has had chronically a GI bleed that slow with some black stools prior to his surgery and requiring blood transfusion at that time in [place]. His conjunctiva are not pale and his skin is pink and warm. I suspect this is chronic and not acute although he has become symptomatic with a hemoglobin of 5.4. Patient given IV fluids. Is given a Protonix drip. Patient medicated with fentanyl as his initial blood pressure was a little soft. CBC was obtained and shows leukocytosis 12.6. Hemoglobin 5.4. Platelets 588 therefore elevated. Renal function and electrolytes within normal limits. Liver enzymes are normal. High-sensitivity troponin 7. Patient was typed and screened for 2 units and states he had blood transfusions in the past and understood the risk and benefits. CT of the abdomen pelvis with IV contrast was obtained and is negative for acute findings. The case was discussed with Dr. Reyes as the patient is a GIB on Xarelto. We will hold this for now. Patient will likely need endoscopy. Dr. Herrera did come see the patient in the emergency room. Discussed with the hospitalist for admission. Impression: 1. Upper GI bleed 2. Blood loss anemia Lab Data Labs: Laboratory Results - last 24 hr 06/07/23 06/07/23 13:53 13:55 WBC 12.6 H RBC 2.08 L Hgb 5.4 L* Hct 18.0 L MCV 86.5 MCH 26.0 L MCHC 30.0 L RDW Std Deviation 48.1 H RDW Coeff of Eze 15.3 H Plt Count 588 H MPV 8.7 Immature Gran % (Auto) 0.600 Neut % (Auto) 74.8 H Lymph % (Auto) 18.2 L O'Brien % (Auto) 4.2 Eos % (Auto) 1.6 Baso % (Auto) 0.6 Absolute Neuts (auto) 9.5 H Absolute Lymphs (auto) 2.30 Nucleated RBC % 0.2 Diff Path Review August foll Sodium 139 Potassium 3.9 Chloride 107 Carbon Dioxide 22.0 Anion Gap 10 BUN 15 Creatinine 1.08 Est GFR (MDRD) Af Amer 89 Est GFR (MDRD) Non-Af 74 BUN/Creatinine Ratio 13.9 Glucose 114 H Calcium 9.1 Total Bilirubin 0.40 Direct Bilirubin 0.10 AST 10 L ALT 23 Alkaline Phosphatase 91 Troponin I High Sens 7 Total Protein 7.8 Albumin 3.4 Globulin 4.4 H Lipase 30 Blood Type O POSITIVE Antibody Screen NEGATIVE Crossmatch See Detail Radiography Diagnostic Testing: Clinical Impression(s) from Imaging Studies Abdomen/Pelvis CT 06/07/23 14:33 IMPRESSION: 1. No focal acute inflammatory process. 2. Left sided colostomy. 3. Hepatic steatosis. Electronically Signed: Triston العلي MD at 15:45 EST Reading Location ID and State: [address] [place] [address] Tel , Service support , Chest X-Ray 06/07/23 15:25 IMPRESSION: No radiographic evidence of acute cardiopulmonary disease. Electronically Signed: Triston العلي MD at 15:38 EST , Discharge Plan Triage Chief Complaint: Weakness ED Provider: Reid Ponce Dx/Rx/DC Orders Prescriptions: No Action atorvastatin 20 MG tablet 20 mg PO QHS nifedipine 30 MG tablet extended release 30 mg PO DAILY omeprazole 10 MG capsule,delayed release(DR/EC) 10 mg PO PRN PRN (Reason: gerd) aspirin 81 mg tablet,delayed release (DR/EC) 81 mg PO DAILY Patient Comments: TAKE 1 TABLET BY MOUTH EVERY DAY Taltz Autoinjector 80 mg/mL auto-injector 80 mg SUBCUT QMONTH rizatriptan 10 mg tablet,disintegrating 10 mg PO PRN PRN (Reason: Migraine Headache) Patient Comments: TAKE 1 TABLET BY MOUTH NEEDED for migraine, may repeat in 2 (TWO) hours if needed fluoxetine 20 mg capsule 20 mg PO DAILY Patient Comments: TAKE 1 CAPSULE BY MOUTH EVERY DAY amitriptyline 50 mg tablet 50 mg PO QHS Patient Comments: TAKE 1 TABLET BY MOUTH DAILY AT BEDTIME losartan 25 mg tablet 25 mg PO DAILY Patient Comments: TAKE 1 TABLET BY MOUTH ONCE DAILY oxycodone-acetaminophen [Percocet] 5-325 mg tablet 1 tab PO Q6H PRN (Reason: pain) 3 Days Qty: 10 0RF ondansetron 4 mg tablet,disintegrating 4 mg PO Q8H PRN (Reason: nausea and vomiting) Qty: 10 0RF Primary Care Provider: Kenroy Larry Referrals: Kenroy Larry MD [Primary Care Provider] -
[2023-06-07] MEDS: fentaNYL 100 MCG/2 ML Ampul 25 MCG IV (16:46)
--- NOTE | 2023-06-07 16:49 | CT_ITS ---
STUDY: CTA OF THE ABDOMINAL AORTA AND BILATERAL LOWER EXTREMITIES REASON FOR EXAM: Male, 62 years old. CTA abd aorta runoff bilat -- recent RLE vascular intervention RADIATION DOSAGE (If Supplied By Facility): CTDIvol = ( 7.38 ) mGy, DLP = ( 1214.10 ) mGycm TECHNIQUE: Axial CT angiography multi-detector data acquisition was obtained from the to the following intravenous administration of IV 100mL Isovue-370. Axial images and MIP images were reconstructed from the axial data set. Post-processing of the angiographic images was performed, with multiplanar reformation and 3D reconstruction. Individualized dose optimization techniques were used for this CT. TECHNICAL QUALITY: Good COMPARISON: None. Descriptors of Narrowing: None (0%) Mild (< 50%) Moderate (50-70%) Severe (70-90%) Subtotal/Total Occlusion (90-100%) Non-Evaluable (technically non-diagnostic FINDINGS: Abdominal aorta: Descending thoracic aorta measures 3.0 x 2.6 cm. It is mildly tortuous. At the level of the celiac and measures 2.1 x 2.2 cm. At the level of the bifurcation is minimally calcified measuring 1.3 x 1.4 cm. Celiac and superior mesenteric arteries: No demonstrated narrowing. Inferior mesenteric artery: There is a suggestion of mild to moderate narrowing of the inferior mesenteric artery at its take off allowing for the small caliber of the vessel. Right renal artery(arteries): No demonstrated narrowing. Left renal artery(arteries): No demonstrated narrowing. Right common iliac artery: There is mild diffuse narrowing. Right external iliac artery: No demonstrated narrowing. Right internal iliac artery: No demonstrated narrowing. Left common iliac artery: There is proximal mild narrowing with plaque formation.. Left external iliac artery: No demonstrated narrowing. Left internal iliac artery: There is mild diffuse narrowing. RIGHT LOWER EXTREMITY Right common femoral artery: Mild narrowing minimal plaque formation. Right superficial femoral artery: There is mild diffuse narrowing to the distal right superficial femoral artery where there is a visualized occluded appearance with the distal occluded graft. Proximal to the occlusion, Within the distal vessel there is a visualized bypass from the level of the distal right femoral to extend to the popliteal. There is a visualized abandoned or occluded graft at the level of the distal superficial femoral to the popliteal. Right profundus femoris: No demonstrated narrowing. Right popliteal artery: There is a reconstituted appearance of the right-sided popliteal by a bypass from the femoral to the popliteal. The anastomosis is narrowed but there is good contrast enhancement. Right tibioperoneal trunk: There is mild diffuse narrowing. Right anterior tibial artery: There is moderate diffuse narrowing, with visualization of the vessel to the distal calf. Right posterior tibial artery: There is mild diffuse narrowing, with visualization of the vessel to the distal calf. Right peroneal artery: No demonstrated narrowing. Adjacent to the location of the femoral bypass there is a visualized focal fluid collection at the level of the postoperative site adjacent to the medial aspect of the femur that measures approximately 11 x 2 x 2 cm tracking along the medial border of the bypass. This remains fairly subcutaneous with Hounsfield units in the range of mildly complex. This visualized right lower extremity edema. The toes are incompletely visualized on this study. LEFT LOWER EXTREMITY Left common femoral artery: The left common femoral artery there is visualized focal plaque and minimal thrombus formation with 50% narrowing which opens up at the level of the trifurcation. Left profundus femoris: No demonstrated narrowing. Left superficial femoral: There is visualized mild narrowing in the visualized focus of what appears to be peripheral plaque formation or soft thrombus. This is seen image #144 series 2. The vessel findings a and is patent throughout. Left popliteal artery: No demonstrated narrowing. Left tibioperoneal trunk: No demonstrated narrowing. Left anterior tibial artery: No demonstrated narrowing. Left posterior tibial artery: No demonstrated narrowing. Left peroneal artery: No demonstrated narrowing. There is minimal scarring in the visualized lingula. There is borderline cardiac enlargement. The visualized liver gallbladder spleen pancreas adrenal glands appear normal. Both kidneys enhance appropriately. There is a minimal hiatal hernia. There is a subcentimeter lymph node adjacent to the hiatus. There is mild to moderate stool within the colon. There has been a partial colectomy. The visualized sigmoid stump. There is a left lower colostomy which appears to be patent. There is no visualized significant retroperitoneal or mesenteric lymphadenopathy. The bladder is partially distended with contrast. The prostate is mildly enlarged. There is mild degenerative change in the SI joints. There is visualized degenerative change in the lumbar spine. The bone windows are limited on this study. CT/CTA Abd w/Runoff W/WO Contrast IMPRESSION: Patent bypass. Adjacent to the patent femoral to popliteal bypass is a focal superficial soft tissue adjacent fluid collection measuring 11 x 2 x 2 cm with mildly complex Hounsfield units which may represent evolving hematoma or potentially a small seroma potentially infection. There is no visualized associated gas formation. In the soft tissues there is an occluded graft and a occluded appearance of the distal superficial femoral artery which is bypassed. The popliteal is narrowed by patent. Findings are as detailed above. There is no visualized large soft tissue hematoma or active appearing extravasation. Consider follow-up right lower extremity ultrasound at the level of the fluid collection and the femoral popliteal bypass. Focal 50% narrowing of the left common femoral artery. Mild narrowing of the left-sided superficial femoral artery without occlusion. Electronically Signed: Afshan Mercado MD at 2:29 EST Reading Location ID and State: [facility] / [place] Tel , Service support ,
--- NOTE | 2023-06-07 16:52 | CON.PCM.GI_ITS ---
HPI Consult Data Date of Consult: 06/07/23 HPI Narrative Reason for Consultation: Gi Bleed HPI Narrative: SALBADOR FARNSWORTH, is a 62 M who presents with abdominal pain, weakness and multiple episodes of black stools in his colostomy bag. He has a past medical history of arthritis, hypertension, GERD, psoriasis, Raynaud's, anxiety, migraines presented to [facility] ED 06/07/2023 due to presyncope in the shower, weakness, and black stool in colostomy bag. Last August patient went to [place] and had perfect diverticulitis and had to have colostomy, has not been able to have it reversed with Dr. Parra yet as patient was still smoking though now he has been tobacco free. Also went to [place] about a month and a half ago and had a blue leg and required a femoral bypass emergently and is on Xarelto. He has been having jet black stool in his colostomy for about a month and has begun to develop some generalized weakness and lightheadedness. In the ED he was found to have a hemoglobin of 5.4 and FOBT positive. His previous hemoglobin was 15. He was given 2 units packed red blood cells in ED and started on Protonix drip, hospitalist contacted for admission. Patient evaluated at bedside with present, they report history as above and that he had his emergent bypass in October in [place] and then had some sort of revision/repair May 14 that is not in our system. He is continue to have some problems with swelling and pain in that leg and reports that sometimes he will get spasms there and spasms in his abdomen but they occur at random and does not have any other abdominal pain, has been having intermittent black stools for about a month and they will be black and then somewhat clear up and then will be black again, over the past 2 to 3 days he has been short of breath, lightheaded, weak and had an episode of presyncope earlier today prompting him to come to the ED. Denies any cough or chest pain. He had a CT scan abdomen pelvis in the ED did not show any acute abnormality. [facility] Medical History Arthritis Diverticulitis GERD (gastroesophageal reflux disease) Heart murmur Hypertension Polycythemia Psoriasis Vertigo Home Medications atorvastatin 20 mg tablet 20 mg PO QHS 09/17/15 [History Last Taken Unknown] nifedipine 30 mg tablet,extended release 30 mg PO DAILY raynauds syndrome 09/17/15 [History Last Taken Unknown] omeprazole 10 mg capsule,delayed release 10 mg PO PRN PRN gerd 10/01/17 [History Last Taken Unknown] aspirin 81 mg tablet,delayed release 81 mg PO DAILY 09/20/20 [History Last Taken Unknown] fluoxetine 20 mg capsule 20 mg PO DAILY 09/20/20 [History Last Taken Unknown] ixekizumab 80 mg/mL subcutaneous auto-injector (Taltz Autoinjector) 80 mg subcut QMONTH 09/20/20 [History Last Taken Unknown] rizatriptan 10 mg disintegrating tablet 10 mg PO PRN PRN Migraine Headache 09/20/20 [History Last Taken Unknown] amitriptyline 50 mg tablet 50 mg PO QHS 01/17/22 [History Last Taken Unknown] losartan 25 mg tablet 25 mg PO DAILY 01/17/22 [History Last Taken Unknown] ondansetron 4 mg disintegrating tablet 4 mg PO Q8H PRN nausea and vomiting #10 tabs 01/17/22 [Rx Last Taken Unknown] hydrocodone-acetaminophen 5-325mg 5mg-325mg 1 tab PO Q6H PRN pain 06/07/23 [History Last Taken Unknown] Allergy/AdvReac Type Severity Reaction Status Date / Time verapamil Allergy Rash Verified 01/17/22 19:59 Surgical History Hx of cardiac catheterization Social History Smoking Status: Former smoker substance use type: does not use ROS ROS Narrative General: very cold today HENT: Denies headache, denies stuffy nose, denies sore throat EYES: Denies changes in vision Resp: Denies cough, has been short of breath over the past couple of days Cardiac: Denies chest pain GI: Every now and then gets abdominal spasms that do not seem to be associated with anything else, intermittent black stools in ostomy over the past 1 month, denies nausea/vomiting : Denies changes in urination Extremity: Still gets some swelling and pain in his right lower extremity MSK: Generalized weakness Neuro: Denies any numbness/tingling, presyncopal episode earlier Heme: Denies any bleeding or bruising Skin: Denies rashes Psychiatric: No complaints voiced Physical Exam Narrative General: Alert, oriented HEENT: Atraumatic, normocephalic Eyes: Anicteric, normal conjunctiva, extraocular movements grossly intact Neck: Supple Respiratory: Clear to auscultation bilaterally, normal respiratory effort Cardiovascular: Regular rate and rhythm GI: Soft, nontender, nondistended, black stool present in ostomy Extremities: Right lower extremity warm, slightly swollen compared to left, has healing incision present on inside of right calf/knee Musculoskeletal: Moving all extremities Neuro: No overt focal neurological deficits Skin: No rashes appreciated Psych: Cooperative Lab / Micro Data 06/07/23 13:53 06/07/23 13:55 Labs: Laboratory Results - last 24 hr 06/07/23 13:53: WBC 12.6 H, RBC 2.08 L, Hgb 5.4 L*, Hct 18.0 L, MCV 86.5, MCH 26.0 L, MCHC 30.0 L, RDW Std Deviation 48.1 H, RDW Coeff of Eze 15.3 H, Plt Count 588 H, MPV 8.7, Immature Gran % (Auto) 0.600, Neut % (Auto) 74.8 H, Lymph % (Auto) 18.2 L, [place] % (Auto) 4.2, Eos % (Auto) 1.6, Baso % (Auto) 0.6, Absolute Neuts (auto) 9.5 H, Absolute Lymphs (auto) 2.30, Nucleated RBC % 0.2, Diff Path Review August, Blood Type O POSITIVE, Antibody Screen NEGATIVE, Crossmatch See Detail 06/07/23 13:55: Sodium 139, Potassium 3.9, Chloride 107, Carbon Dioxide 22.0, Anion Gap 10, BUN 15, Creatinine 1.08, Est GFR (MDRD) Af Amer 89, Est GFR (MDRD) Non-Af 74, BUN/Creatinine Ratio 13.9, Glucose 114 H, Calcium 9.1, Total Bilirubin 0.40, Direct Bilirubin 0.10, AST 10 L, ALT 23, Alkaline Phosphatase 91, Troponin I High Sens 7, Total Protein 7.8, Albumin 3.4, Globulin 4.4 H, Lipase 30 Micro: Microbiology 06/07/23 14:30 Stool Stool Occult Blood (VENKATA) - Final Occult Blood Positive Imaging Radiology Impression Abdomen/Pelvis CT 06/07/23 14:33 IMPRESSION: 1. No focal acute inflammatory process. 2. Left sided colostomy. 3. Hepatic steatosis. Electronically Signed: Triston العلي MD at 15:45 EST Reading Location ID and State: [facility] / [place] Tel , Service support , Chest X-Ray 06/07/23 15:25 IMPRESSION: No radiographic evidence of acute cardiopulmonary disease. Electronically Signed: Triston العلي MD at 15:38 EST , Assessment & Plan Assessment/Plan (1) GI bleed: (2) Popliteal artery injury: (3) Psoriasis: (4) Raynaud disease: PLAN: Plan 62 old gentleman with past medical history negative addiction, possible COPD, acute perforated diverticulitis status post colostomy placement with Malone's procedure GI bleed and near syncope on aspirin and Xarelto and Taltz -Hemoglobin 5.4 in ED, last value here was in 2021 and was 15.7 and appears hemoglobin prior to that actually runs high at 15 -Fecal occult positive -Type and cross with plan to transfuse 2 units -Trend H&H -PPI IV -EGD in a.m. Charges/Coding Visit Charges Inpatient E&M: 01224 Init Hosp L3
[2023-06-07] MEDS: HEPARIN/D5w 25,000 UNITS 25,000 UNITS/250 ML IV.SOLN. 5 UNITS IV (17:35)
--- NOTE | 2023-06-07 17:38 | ED.RN ---
prior to initiating heparin, this nurse called lab and lab has a blue top, order entered for PT INR, then sent to lab, heparin infusing at this time.
[2023-06-07 17:45] LABS: International Normalized Ratio 1.3; Prothrombin Time (Protime)PT. 16.2 SECONDS (11.7-14.9)
[2023-06-07 17:46] LABS: Partial Thromboplast Time 42.6 Seconds (24.1-36.2)
[2023-06-07] MEDS: oxyCODONE 5 MG Tablet PO (21:03)
[2023-06-07] MEDS: Gabapentin 300 MG Capsule PO (22:25)
[2023-06-07] MEDS: Atorvastatin Calcium 20 MG Tablet PO (22:25)
[2023-06-07 23:38] LABS: Partial Thromboplast Time 43.1 Seconds (24.1-36.2)
[2023-06-07] MEDS: 0.9% Saline Lock 10 ML Syringe IV (23:41)
[2023-06-08] VITALS (15 sets, daily range): BP systolic 98–150; BP diastolic 54–90; PULSE 65–76; RESP 12–18; TEMP 36.2–36.7; O2SAT 95–100; BMI 25.9
[2023-06-08] MEDS: Acetaminophen 325 MG Tablet 650 MG PO ×2 (01:09→16:03)
[2023-06-08] MEDS: Pantoprazole Sodium 80 MG in 0.9% Normal Saline (100mL Bag) 80 ML 10 MG CONT INF ×3 (01:10→22:55)
[2023-06-08] MEDS: oxyCODONE 5 MG Tablet PO ×3 (01:10→16:03)
[2023-06-08] MEDS: 0.9% Normal Saline (1000mL) 1,000 ML 75 ML IV (01:16)
[2023-06-08 02:28] LABS: Hematocrit 20.7 % (40-54); Hemoglobin 6.7 g/dL (13.0-16.5); Mean Corp Hgb Conc 32.4 g/dL (32-36); Mean Corpuscular Hgb 27.6 pg (27.0-32.0); Mean Corpuscular Volume 85.2 fL (80-94); Mean Platelet Vol. 8.6 fl (6.2-12.0); Platelet Count 477 K/mm3 (150-450); RBC Distribution Width CV 14.6 % (11.6-14.6); RBC Distribution Width SD 45.3 fl (35.1-43.9); Red Blood Count 2.43 M/mm3 (4.6-6.2)
[2023-06-08] MEDS: Morphine 2 MG/ML Syringe IV ×2 (05:48→16:02)
[2023-06-08 06:56] LABS: Absolute Lymphocyte Count 3.08 X10^3/uL (0.83-4.51); Absolute Neutrophil Count 6.3 X10^3/uL (2.0-7.7); Basophil# 0.09 X10^3/uL; Basophil% 0.9 % (0-1); Eosinophil# 0.28 X10^3/uL; Eosinophils% 2.7 % (0-5); Hematocrit 20.9 % (40-54); Hemoglobin 6.5 g/dL (13.0-16.5); Lymphocyte # 3.08 X10^3/ul (0.83-4.51); Lymphocyte % 29.7 % (19-41); Mean Corp Hgb Conc 31.1 g/dL (32-36); Mean Corpuscular Hgb 26.9 pg (27.0-32.0); Mean Corpuscular Volume 86.4 fL (80-94); Mean Platelet Vol. 9.2 fl (6.2-12.0); Monocyte# 0.63 X10^3/uL; Monocyte% 6.1 % (0-10); NRBC Flagged by Analyzer 0 % (0-5); Neutrophil # 6.25 X10^3/uL (2.7-7.7); Neutrophil % 60.2 % (47-70); Platelet Count 538 K/mm3 (150-450); RBC Distribution Width CV 14.8 % (11.6-14.6); RBC Distribution Width SD 46.9 fl (35.1-43.9); Red Blood Count 2.42 M/mm3 (4.6-6.2); White Blood Count 10.4 K/mm3 (4.4-11.0)
--- NOTE | 2023-06-08 07:40 | ADUL_ITS ---
Reason For Study: R fem-pop bypass Right Velocities Right mid-dist SFA inflow 206.6 cm/s. Right prox anast 305.9 cm/s. Right prox graft 389.6 cm/s. Right mid graft 384.4 cm/s. Right distal graft 140.8 cm/s. Right dist anast 262.5 cm/s. Right outflow 180.1 cm/s. Previous failed graft is noted in the distal thigh and popliteal space. VL/US Art Duplex Unilat Lower Ext Interpretation Summary Right SFA-PT bypass patent with elevated velocities throughout. No velocity ramonita ft to suggest focal stenosis Ordering Physician: Azalia Freedman Performed By: Seb Mejias RVT
--- NOTE | 2023-06-08 07:40 | ART_ITS ---
Reason For Study: S/P Right fem-pop bypass Procedure A bilateral lower extremity continuous wave Doppler with analog waveform analysis and ankle brachial indexes. Left Segmental Pressures Left brachial= 136mmHg. Left posterior tibial artery = 167mmHg. Left dorsalis pedis artery = 140mmHg. The left dorsalis pedis waveforms are triphasic. The left posterior tibial artery waveforms are triphasic. Right Segmental Pressures Right posterior tibial artery = 132mmHg. Right dorsalis pedis artery = 137mmHg. The right dorsalis pedis waveforms are monophasic. The right posterior tibial artery waveforms are biphasic. Indices The right ankle brachial index by the dorsalis pedis is 1.01. The right ankle brachial index by the posterior tibial artery is 0.97. The left ankle brachial index by the dorsalis pedis is 1.03. The left ankle brachial index by the posterior tibial artery is 1.23. VL/Ankle Brachial Index Interpretation Summary Right SAVANNA 1.01, normal. Doppler/PVR waveforms of the right ankle mildly diminis hed at rest. Left SAVANNA 1.23, normal. Doppler/PVR waveforms of the left leg normal at rest. Ordering Physician: Azalia Freedman Referring Physician: Kenroy Larry Performed By: Isabel Levine RVT
[2023-06-08 07:55] LABS: Anion Gap 8 (5-15); BUN 18 mg/dL (7-18); BUN/Creat Ratio 16.1 RATIO (10-20); Calcium,Total 8.5 mg/dL (8.5-10.1); Chloride 112 mmol/L (98-107); Creatinine, Serum 1.12 mg/dL (0.70-1.30); EST Glomerular Filtration Rate 71 mL/min (>60); Est Glom Filt Rate - Afr Amer 86 mL/min (>60); Estimated Creatinine Clearance 76.02 ml/min; Glucose 106 mg/dL (74-106); Potassium 3.6 mmol/L (3.5-5.1); Sodium Level 140 mmol/L (136-145); Thyroid Stim Hormone (TSH) 6.58 uIU/mL (0.358-3.74)
[2023-06-08 08:08] LABS: Partial Thromboplast Time 36.8 Seconds (24.1-36.2)
[2023-06-08 08:17] LABS: International Normalized Ratio 1.2; Prothrombin Time (Protime)PT. 15.2 SECONDS (11.7-14.9)
[2023-06-08] MEDS: Gabapentin 300 MG Capsule PO ×3 (08:22→17:46)
--- NOTE | 2023-06-08 09:55 | CASEMGMT ---
SHIRLEY UMANA Assessment Face to Face with patient for initial transition planning/care coordination assessment. SHIRLEY UMANA introduced self and role at [facility], pt voices understanding. Pt is A&Ox4 and is resting comfortably in bed and is calm. Care providers, pharmacy, and demographics verified. Admitting dx: GI Bleed LACE Strata: 1 PCP: [facility] Specialists: Celeste (Vascular), Tee (Cardio [facility]), Katia (Hematology [facility]), Dr. Marcy Gonzalez (Ortho) Preferred Pharmacy: [facility] Insurance: [employer]/ [employer] Prescription Benefit: Yes LNOK: Radha Maldonado (W) Living Arrangements: Pt lives with his in a 3 story home with a basement with handrails and 4 steps to enter with handrails. ADLs/IADLs: I with ADLs. Pt assists with IADLs. manages pt medications Transportation: Pr denies driving now. Pt drives DME: Pt uses a cane at home. Has a walker but does not use. Walk in shower has a seat with no grab bars. Pt states his has home O2 and that she uses [facility]. Pt states if he needs O2 at home he would prefer going through [facility]. HHC/SNF: Denies history. Pt states a history at [facility] for outpt PT. Smoking history: Pt states that he recently quit smoking 44 days ago. Pt?s goal: DC home with his Plan: Pt 6-Click is 21. No PT/OT ordered at this time. Pt states that he currently has a prescription at home for outpt therapy if he feels the need for it. Pt denies HHC or SNF at this time. Pt denies needing an Rx for outpt therapy at this time. Will follow for further needs. Marcy Santana RN, CM
--- NOTE | 2023-06-08 10:41 | PCM.PN.HOSP ---
Reason for Visit Reason for Visit: Diagnoses Raynaud's syndrome without gangrene (06/07/23) Gastrointestinal hemorrhage, unspecified (06/07/23) Psoriasis, unspecified (06/07/23) Unspecified injury of popliteal artery, unspecified leg, initial encounter (06/07/23) Subjective Subjective Patient is a 62-year-old gentleman with recent vascular surgery on systemic anticoagulation with Xarelto who presented with near syncope while taking a shower and dark stools in his colostomy bag. Presented to the emergency department hemoglobin was found to be 5.4. Admitted to monitored bed for subsequent evaluation Objective Data Objective Data Vital Signs: Vital Signs Temp Pulse Resp BP Pulse Ox O2 Del Method O2 Flow Rate 97.5 F L 75 16 133/67 H 95 Room Air 2 06/08/23 10:21 06/08/23 10:21 06/08/23 10:21 06/08/23 10:21 06/08/23 10:21 06/08/23 10:21 06/07/23 22:19 Oxygen Flow Rate (L/min) 2 Oxygen Delivery Method Room Air Weight: 86.771 kg Body Mass Index (BMI) 25.9 Intake & Output: Intake and Output for Last 24 Hours 06/06/23 06/07/23 06/08/23 23:59 23:59 23:59 Intake Total 1066.58 / 1366.58 1068.83 / 1068.83 Output Total 550 / 550 Balance 1066.58 / 1116.58 518.83 / 518.83 Lab / Micro Data 06/08/23 12:35 06/08/23 05:23 Labs: Laboratory Results - last 24 hr 06/07/23 13:53: WBC 12.6 H, RBC 2.08 L, Hgb 5.4 L*, Hct 18.0 L, MCV 86.5, MCH 26.0 L, MCHC 30.0 L, RDW Std Deviation 48.1 H, RDW Coeff of Eze 15.3 H, Plt Count 588 H, MPV 8.7, Immature Gran % (Auto) 0.600, Neut % (Auto) 74.8 H, Lymph % (Auto) 18.2 L, [place] % (Auto) 4.2, Eos % (Auto) 1.6, Baso % (Auto) 0.6, Absolute Neuts (auto) 9.5 H, Absolute Lymphs (auto) 2.30, Nucleated RBC % 0.2, Diff Path Review August, Blood Type O POSITIVE, Antibody Screen NEGATIVE, Crossmatch See Detail 06/07/23 13:55: Sodium 139, Potassium 3.9, Chloride 107, Carbon Dioxide 22.0, Anion Gap 10, BUN 15, Creatinine 1.08, Est GFR (MDRD) Af Amer 89, Est GFR (MDRD) Non-Af 74, BUN/Creatinine Ratio 13.9, Glucose 114 H, Calcium 9.1, Total Bilirubin 0.40, Direct Bilirubin 0.10, AST 10 L, ALT 23, Alkaline Phosphatase 91, Troponin I High Sens 7, Total Protein 7.8, Albumin 3.4, Globulin 4.4 H, Lipase 30 06/07/23 13:59: PT 16.2 H, INR 1.3, APTT 42.6 H 06/07/23 23:16: APTT 43.1 H 06/08/23 02:19: WBC 11.0, RBC 2.43 L, Hgb 6.7 L, Hct 20.7 L, MCV 85.2, MCH 27.6, MCHC 32.4 D, RDW Std Deviation 45.3 H, RDW Coeff of Eze 14.6, Plt Count 477 H, MPV 8.6 06/08/23 05:23: WBC 10.4, RBC 2.42 L, Hgb 6.5 L, Hct 20.9 L, MCV 86.4, MCH 26.9 L, MCHC 31.1 L, RDW Std Deviation 46.9 H, RDW Coeff of Eze 14.8 H, Plt Count 538 H, MPV 9.2, Immature Gran % (Auto) 0.400, Neut % (Auto) 60.2, Lymph % (Auto) 29.7, [place] % (Auto) 6.1, Eos % (Auto) 2.7, Baso % (Auto) 0.9, Absolute Neuts (auto) 6.3, Absolute Lymphs (auto) 3.08, Nucleated RBC % 0, PT 15.2 H, INR 1.2, APTT 36.8 H, Sodium 140, Potassium 3.6, Chloride 112 H, Carbon Dioxide 20.0 L, Anion Gap 8, BUN 18, Creatinine 1.12, Estim Creat Clear Calc 76.02, Est GFR (MDRD) Af Amer 86, Est GFR (MDRD) Non-Af 71, BUN/Creatinine Ratio 16.1, Glucose 106, Calcium 8.5, TSH 6.58 H 06/08/23 05:55: Crossmatch See Detail Micro: Microbiology 06/07/23 14:30 Stool Stool Occult Blood (VENKATA) - Final Occult Blood Positive Radiography Diagnostic Testing: Radiology Impression Abdomen/Pelvis CT 06/07/23 14:33 IMPRESSION: 1. No focal acute inflammatory process. 2. Left sided colostomy. 3. Hepatic steatosis. Electronically Signed: Triston العلي MD at 15:45 EST , Chest X-Ray 06/07/23 15:25 IMPRESSION: No radiographic evidence of acute cardiopulmonary disease. Electronically Signed: Triston العلي MD at 15:38 EST , Abdomen/Pelvis CTA 06/07/23 16:49 IMPRESSION: Patent bypass. Adjacent to the patent femoral to popliteal bypass is a focal superficial soft tissue adjacent fluid collection measuring 11 x 2 x 2 cm with mildly complex Hounsfield units which may represent evolving hematoma or potentially a small seroma potentially infection. There is no visualized associated gas formation. In the soft tissues there is an occluded graft and a occluded appearance of the distal superficial femoral artery which is bypassed. The popliteal is narrowed by patent. Findings are as detailed above. There is no visualized large soft tissue hematoma or active appearing extravasation. Consider follow-up right lower extremity ultrasound at the level of the fluid collection and the femoral popliteal bypass. Focal 50% narrowing of the left common femoral artery. Mild narrowing of the left-sided superficial femoral artery without occlusion. Electronically Signed: Afshan Mercado MD at 2:29 EST , Physical Exam Narrative GENERAL: cooperative HEENT: Atraumatic; normocephalic EYES; Anicteric, Normal Conjunctiva NECK; supple, normal thyroid, RESPIRATORY: Diminished to auscultation CARDIOVASCULAR: Regular S1 S2, GI: Soft, nontender, nondistended, black stool present in ostomy : No Renal angle tenderness; EXTREMITIES: Right lower extremity has healing incision present on inside of right calf/knee MUSCULOSKELETAL: no muscle wasting NEURO: Awake; no lateralizing signs. SKIN: No Rash PSYCH; Flat affect Assessment & Plan Assessment/Plan (1) GI bleed: PLAN: Plan Patient is a 62-year-old gentleman with recent vascular surgery on systemic anticoagulation with Xarelto who presented with near syncope while taking a shower and dark stools in his colostomy bag. Presented to the emergency department hemoglobin was found to be 5.4. Admitted to monitored bed for subsequent evaluation 1. Acute GI bleed ? Suspected to secondary to upper GI bleed, hemoglobin on admission was 5.4. Patient was typed and crossmatched transfused with 2 unit PRBC started on Protonix drip admitted to monitored bed with consultation placed to GI. Patient is on antiplatelet therapy with aspirin as well as systemic anticoagulation with Xarelto but held 2. Anemia -secondary to acute blood loss anemia from GI bleed management as discussed above 3. Peripheral arterial disease ? Patient underwent redo of right above-knee popliteal to posterior tibial bypass with reversed right saphenous vein and ligation of prior femoropopliteal trunk bypass on 05/14/2023 at [facility]. Patient discharged on antiplatelet therapy as well as systemic anticoagulation with Xarelto both of which are currently being held given patient presentation 4. Thrombocytosis ? Reactive following patient severe anemia 5. GERD ? On PPI 6. Psoriasis -Uses ixekizumab on outpt basis 7. Raynaud's's -Supportive care, hold nifedipine d/t presyncopal episode 8. Depression with anxiety ? Patient is on Prozac 9. DVT prophylaxis ? Systemic anticoagulation contraindicated given patient presentation Time spent in the patient's overall evaluation,decision-making process, review of diagnostic data, adjustment of management, discussion with other providers, nursing nursing and ancillary staff involved in patient's care documentation, 50 minutes Charges/Coding Visit Charges Inpatient E&M: 91945 Subs Hosp L3
[2023-06-08 12:50] LABS: Hematocrit 23.4 % (40-54); Hemoglobin 7.3 g/dL (13.0-16.5); Mean Corp Hgb Conc 31.2 g/dL (32-36); Mean Corpuscular Hgb 27.5 pg (27.0-32.0); Mean Corpuscular Volume 88.3 fL (80-94); Mean Platelet Vol. 8.9 fl (6.2-12.0); Platelet Count 504 K/mm3 (150-450); RBC Distribution Width CV 15.2 % (11.6-14.6); RBC Distribution Width SD 48.2 fl (35.1-43.9); Red Blood Count 2.65 M/mm3 (4.6-6.2); White Blood Count 9.5 K/mm3 (4.4-11.0)
[2023-06-08 12:55] LABS: Pathologist Review Reviewed
--- NOTE | 2023-06-08 12:58 | EX.PCM.CON.S ---
Assessment & Plan Assessment/Plan (1) Peripheral vascular disease: (2) S/P femoral-popliteal bypass surgery: PLAN: Plan Imaging confirms patent bypass with no evidence of occlusion/stenosis. Okay to discontinue anticoagulation with heparin/Xarelto as needed to manage GI bleed/anemia. Would continue antiplatelet with Aspirin 81mg daily. Will continue to follow. HPI Consult Data Date of Consult: 06/08/23 HPI Narrative HPI Narrative: SALBADOR FARNSWORTH, is a 62 M who presented to the [facility] ER on 06/07/22 with presyncope, weakness, and black stools noted in his colostomy bag. In October 2022, he had a femoral bypass with PTFE graft which subsequently failed and in May he had fem-pop bypass with [place] vein at [facility]. He reports he has been following with Dr. Alonso as an outpatient for this. He has intermittent cramps in his leg which are unrelated to activity. Otherwise, no rest pain/claudication. He does not some increased edema in the right leg, but this has been slowly improving. The incisions are overall well-healing, with a small area of superficial dehiscence on the calf. He has been on Xarelto and ASA as an outpatient. Since admission, Xarelto has been held and he has been on low-dose heparin drip. CTA revealed patent bypass. Arterial duplex confirmed patency with high velocities throughout but no evidence of stenosis/occlusion. He is to have EGD today to assess for source of GI bleeding. [facility] Medical History Arthritis Diverticulitis GERD (gastroesophageal reflux disease) Heart murmur Hypertension Polycythemia Psoriasis Vertigo Home Medications atorvastatin 20 mg tablet 20 mg PO QHS 09/17/15 [History Last Taken Unknown] nifedipine 30 mg tablet,extended release 30 mg PO DAILY raynauds syndrome 09/17/15 [History Last Taken Unknown] omeprazole 10 mg capsule,delayed release 10 mg PO PRN PRN gerd 10/01/17 [History Last Taken Unknown] aspirin 81 mg tablet,delayed release 81 mg PO DAILY 09/20/20 [History Last Taken Unknown] fluoxetine 20 mg capsule 20 mg PO DAILY 09/20/20 [History Last Taken Unknown] ixekizumab 80 mg/mL subcutaneous auto-injector (Taltz Autoinjector) 80 mg subcut QMONTH 09/20/20 [History Last Taken Unknown] rizatriptan 10 mg disintegrating tablet 10 mg PO PRN PRN Migraine Headache 09/20/20 [History Last Taken Unknown] amitriptyline 50 mg tablet 50 mg PO QHS 01/17/22 [History Last Taken Unknown] losartan 25 mg tablet 25 mg PO DAILY 01/17/22 [History Last Taken Unknown] ondansetron 4 mg disintegrating tablet 4 mg PO Q8H PRN nausea and vomiting #10 tabs 01/17/22 [Rx Last Taken Unknown] cephalexin 500 mg capsule 500 mg PO DAILY antibiotic needs 06/07/23 [History Last Taken Unknown] cyclobenzaprine 10 mg tablet 10 mg PO TID PRN muscle spasms 06/07/23 [History Last Taken Unknown] gabapentin 100 mg capsule 100 mg PO DAILY PRN nerve pain 06/07/23 [History Last Taken Unknown] gabapentin 300 mg capsule 300 mg PO Q12H neuropathy/nerve pain 06/07/23 [History Last Taken Unknown] hydrocodone-acetaminophen 5-325mg 5mg-325mg 1 tab PO Q6H PRN pain 06/07/23 [History Last Taken Unknown] oxycodone 5 mg tablet 5 mg PO Q6H PRN pain (scale score 4-6) 06/07/23 [History Last Taken Unknown] pantoprazole 40 mg tablet,delayed release 40 mg PO DAILY heart burn 06/07/23 [History Last Taken Unknown] rivaroxaban 20 mg tablet (Xarelto) 20 mg PO QPM blood thinner 06/07/23 [History Last Taken Unknown] Allergy/AdvReac Type Severity Reaction Status Date / Time verapamil Allergy Rash Verified 01/17/22 19:59 Surgical History Hx of cardiac catheterization Social History Smoking Status: Former smoker substance use type: does not use Lab / Micro Data 06/08/23 12:35 06/08/23 05:23 Labs: Laboratory Results - last 24 hr 06/07/23 13:53: WBC 12.6 H, RBC 2.08 L, Hgb 5.4 L*, Hct 18.0 L, MCV 86.5, MCH 26.0 L, MCHC 30.0 L, RDW Std Deviation 48.1 H, RDW Coeff of Eze 15.3 H, Plt Count 588 H, MPV 8.7, Immature Gran % (Auto) 0.600, Neut % (Auto) 74.8 H, Lymph % (Auto) 18.2 L, [place] % (Auto) 4.2, Eos % (Auto) 1.6, Baso % (Auto) 0.6, Absolute Neuts (auto) 9.5 H, Absolute Lymphs (auto) 2.30, Nucleated RBC % 0.2, Diff Path Review Reviewed, Blood Type O POSITIVE, Antibody Screen NEGATIVE, Crossmatch See Detail 06/07/23 13:55: Sodium 139, Potassium 3.9, Chloride 107, Carbon Dioxide 22.0, Anion Gap 10, BUN 15, Creatinine 1.08, Est GFR (MDRD) Af Amer 89, Est GFR (MDRD) Non-Af 74, BUN/Creatinine Ratio 13.9, Glucose 114 H, Calcium 9.1, Total Bilirubin 0.40, Direct Bilirubin 0.10, AST 10 L, ALT 23, Alkaline Phosphatase 91, Troponin I High Sens 7, Total Protein 7.8, Albumin 3.4, Globulin 4.4 H, Lipase 30 06/07/23 13:59: PT 16.2 H, INR 1.3, APTT 42.6 H 06/07/23 23:16: APTT 43.1 H 06/08/23 02:19: WBC 11.0, RBC 2.43 L, Hgb 6.7 L, Hct 20.7 L, MCV 85.2, MCH 27.6, MCHC 32.4 D, RDW Std Deviation 45.3 H, RDW Coeff of Eze 14.6, Plt Count 477 H, MPV 8.6 06/08/23 05:23: WBC 10.4, RBC 2.42 L, Hgb 6.5 L, Hct 20.9 L, MCV 86.4, MCH 26.9 L, MCHC 31.1 L, RDW Std Deviation 46.9 H, RDW Coeff of Eze 14.8 H, Plt Count 538 H, MPV 9.2, Immature Gran % (Auto) 0.400, Neut % (Auto) 60.2, Lymph % (Auto) 29.7, [place] % (Auto) 6.1, Eos % (Auto) 2.7, Baso % (Auto) 0.9, Absolute Neuts (auto) 6.3, Absolute Lymphs (auto) 3.08, Nucleated RBC % 0, PT 15.2 H, INR 1.2, APTT 36.8 H, Sodium 140, Potassium 3.6, Chloride 112 H, Carbon Dioxide 20.0 L, Anion Gap 8, BUN 18, Creatinine 1.12, Estim Creat Clear Calc 76.02, Est GFR (MDRD) Af Amer 86, Est GFR (MDRD) Non-Af 71, BUN/Creatinine Ratio 16.1, Glucose 106, Calcium 8.5, TSH 6.58 H 06/08/23 05:55: Crossmatch See Detail 06/08/23 12:35: WBC 9.5, RBC 2.65 L, Hgb 7.3 L, Hct 23.4 L, MCV 88.3, MCH 27.5, MCHC 31.2 L, RDW Std Deviation 48.2 H, RDW Coeff of Eze 15.2 H, Plt Count 504 H, MPV 8.9 Micro: Microbiology 06/07/23 14:30 Stool Stool Occult Blood (VENKATA) - Final Occult Blood Positive Imaging Radiology Impression Abdomen/Pelvis CT 06/07/23 14:33 IMPRESSION: 1. No focal acute inflammatory process. 2. Left sided colostomy. 3. Hepatic steatosis. Electronically Signed: Triston العلي MD at 15:45 EST Reading Location ID and State: [facility] / [place] Tel , Service support , Chest X-Ray 06/07/23 15:25 IMPRESSION: No radiographic evidence of acute cardiopulmonary disease. Electronically Signed: Triston العلي MD at 15:38 EST , Abdomen/Pelvis CTA 06/07/23 16:49 IMPRESSION: Patent bypass. Adjacent to the patent femoral to popliteal bypass is a focal superficial soft tissue adjacent fluid collection measuring 11 x 2 x 2 cm with mildly complex Hounsfield units which may represent evolving hematoma or potentially a small seroma potentially infection. There is no visualized associated gas formation. In the soft tissues there is an occluded graft and a occluded appearance of the distal superficial femoral artery which is bypassed. The popliteal is narrowed by patent. Findings are as detailed above. There is no visualized large soft tissue hematoma or active appearing extravasation. Consider follow-up right lower extremity ultrasound at the level of the fluid collection and the femoral popliteal bypass. Focal 50% narrowing of the left common femoral artery. Mild narrowing of the left-sided superficial femoral artery without occlusion. Electronically Signed: Afshan Mercado MD at 2:29 EST ,
[2023-06-08] MEDS: Lactated Ringers 1,000 ML 15 ML IV (13:40)
--- NOTE | 2023-06-08 14:49 | OP.CCLET_ITS ---
06/08/2023 Kenroy Larry Re : Upper GI endoscopy procedure for Choco Maldonado Dear Laron This procedure was performed on Thursday, June 08, 2023. My impressions and recommendations are as follows: Impressions : - Normal esophagus. - Small hiatal hernia. - No gross lesions in the third portion of the duodenum. - No specimens collected. Recommendations : - [facility]. - Clear liquid diet. - Continue present medications. My findings are described in the full procedure note, which is enclosed. If I can be of further assistance, please feel free to contact me at . Sincerely, John Reyes, 06/08/2023 2:48:47 PM This report has been signed electronically.
--- NOTE | 2023-06-08 14:49 | OP.EGD_ITS ---
Patient Name: Choco Maldonado Procedure Date: 06/08/2023 2:30 PM Date of : 1960 Age: 62 Procedure: Upper GI endoscopy Indications: Iron deficiency anemia, Hematochezia, Melena Providers: John Reyes DO Medicines: Monitored Anesthesia Care Patient Profile: This is a 62 year old male. Refer to note in patient chart for documentation of history and physical. Patient has symptoms. He is status post subtotal colectomy within the past six months. Complications: No immediate complications. Procedure: Pre-Anesthesia Assessment: - Prior to the procedure, a History and Physical was performed, and patient medications and allergies were reviewed. The patient is competent. The risks and benefits of the procedure and the sedation options and risks were discussed with the patient. All questions were answered and informed consent was obtained. Patient identification and proposed procedure were verified by the physician in the pre-procedure area. Mental Status Examination: normal. Airway Examination: normal oropharyngeal airway and neck mobility. Respiratory Examination: clear to auscultation. CV Examination: normal. Prophylactic Antibiotics: The patient does not require prophylactic antibiotics. Prior Anticoagulants: The patient has taken no anticoagulant or antiplatelet agents. After reviewing the risks and benefits, the patient was deemed in satisfactory condition to undergo the procedure. The anesthesia plan was to use monitored anesthesia care (MAC). Immediately prior to administration of medications, the patient was re-assessed for adequacy to receive sedatives. The heart rate, respiratory rate, oxygen saturations, blood pressure, adequacy of pulmonary ventilation, and response to care were monitored throughout the procedure. The physical status of the patient was re-assessed after the procedure. After obtaining informed consent, the endoscope was passed under direct vision. Throughout the procedure, the patient's blood pressure, pulse, and oxygen saturations were monitored continuously. The Endoscope was introduced through the mouth, and advanced to the second part of duodenum. The upper GI endoscopy was accomplished without difficulty. The patient tolerated the procedure well. Scope In: 2:41:55 PM Scope Out: 2:43:46 PM Total Procedure Duration Time 0 hours 1 minute 51 seconds Findings: The examined esophagus was normal. A small hiatal hernia was present. No other significant abnormalities were identified in a careful examination of the stomach. No gross lesions were noted in the third portion of the duodenum. Impression: - Normal esophagus. - Small hiatal hernia. - No gross lesions in the third portion of the duodenum. - No specimens collected. Recommendation: - [facility]. - Clear liquid diet. - Continue present medications. Procedure Code(s): --- Professional --- 51534, Esophagogastroduodenoscopy, flexible, transoral; diagnostic, including collection of specimen(s) by brushing or washing, when performed (separate procedure) CPT copyright 2021 [employer]. All rights reserved. The codes documented in this report are preliminary and upon director of business development review may be revised to meet current compliance requirements. John Reyes DO 06/08/2023 2:48:47 PM This report has been signed electronically. Number of Addenda: 0 Note Initiated On: 06/08/2023 2:30 PM
--- NOTE | 2023-06-08 14:49 | EX.PCM.PN.GI ---
Subjective Subjective Patient underwent upper endoscopy today. Indication was acute GI blood loss. There was no signs of GI bleeding in his upper GI tract to the third portion of the duodenum. Objective Data Objective Data Vital Signs: Vital Signs Temp Pulse Resp BP Pulse Ox O2 Del Method O2 Flow Rate 97.7 F L 72 12 142/76 H 97 Room Air 2 06/08/23 11:15 06/08/23 11:15 06/08/23 11:15 06/08/23 11:15 06/08/23 11:15 06/08/23 11:15 06/07/23 22:19 Oxygen Flow Rate (L/min) 2 Oxygen Delivery Method Room Air Weight: 191 lb 4.757 oz Body Mass Index (BMI) 25.9 Intake & Output: Intake and Output for Last 24 Hours 06/06/23 06/07/23 06/08/23 23:59 23:59 23:59 Intake Total 1066.58 / 1366.58 1168.83 / 1168.83 Output Total 550 / 550 Balance 1066.58 / 1116.58 618.83 / 618.83 Lab / Micro Data 06/08/23 12:35 06/08/23 05:23 Labs: Laboratory Results - last 24 hr 06/07/23 13:53: Diff Path Review Reviewed, Blood Type O POSITIVE, Antibody Screen NEGATIVE, Crossmatch See Detail 06/07/23 13:55: Total Bilirubin 0.40, Direct Bilirubin 0.10, AST 10 L, ALT 23, Alkaline Phosphatase 91, Total Protein 7.8, Albumin 3.4, Globulin 4.4 H, Lipase 30 06/07/23 13:59: PT 16.2 H, INR 1.3, APTT 42.6 H 06/07/23 23:16: APTT 43.1 H 06/08/23 02:19: WBC 11.0, RBC 2.43 L, Hgb 6.7 L, Hct 20.7 L, MCV 85.2, MCH 27.6, MCHC 32.4 D, RDW Std Deviation 45.3 H, RDW Coeff of Eze 14.6, Plt Count 477 H, MPV 8.6 06/08/23 05:23: WBC 10.4, RBC 2.42 L, Hgb 6.5 L, Hct 20.9 L, MCV 86.4, MCH 26.9 L, MCHC 31.1 L, RDW Std Deviation 46.9 H, RDW Coeff of Eze 14.8 H, Plt Count 538 H, MPV 9.2, Immature Gran % (Auto) 0.400, Neut % (Auto) 60.2, Lymph % (Auto) 29.7, [place] % (Auto) 6.1, Eos % (Auto) 2.7, Baso % (Auto) 0.9, Absolute Neuts (auto) 6.3, Absolute Lymphs (auto) 3.08, Nucleated RBC % 0, PT 15.2 H, INR 1.2, APTT 36.8 H, Sodium 140, Potassium 3.6, Chloride 112 H, Carbon Dioxide 20.0 L, Anion Gap 8, BUN 18, Creatinine 1.12, Estim Creat Clear Calc 76.02, Est GFR (MDRD) Af Amer 86, Est GFR (MDRD) Non-Af 71, BUN/Creatinine Ratio 16.1, Glucose 106, Calcium 8.5, TSH 6.58 H 06/08/23 05:55: Crossmatch See Detail 06/08/23 12:35: WBC 9.5, RBC 2.65 L, Hgb 7.3 L, Hct 23.4 L, MCV 88.3, MCH 27.5, MCHC 31.2 L, RDW Std Deviation 48.2 H, RDW Coeff of Eze 15.2 H, Plt Count 504 H, MPV 8.9 Micro: Microbiology 06/07/23 14:30 Stool Stool Occult Blood (VENKATA) - Final Occult Blood Positive Radiography Diagnostic Testing: Radiology Impression Abdomen/Pelvis CT 06/07/23 14:33 IMPRESSION: 1. No focal acute inflammatory process. 2. Left sided colostomy. 3. Hepatic steatosis. Electronically Signed: Triston العلي MD at 15:45 EST , Chest X-Ray 06/07/23 15:25 IMPRESSION: No radiographic evidence of acute cardiopulmonary disease. Electronically Signed: Triston العلي MD at 15:38 EST , Abdomen/Pelvis CTA 06/07/23 16:49 IMPRESSION: Patent bypass. Adjacent to the patent femoral to popliteal bypass is a focal superficial soft tissue adjacent fluid collection measuring 11 x 2 x 2 cm with mildly complex Hounsfield units which may represent evolving hematoma or potentially a small seroma potentially infection. There is no visualized associated gas formation. In the soft tissues there is an occluded graft and a occluded appearance of the distal superficial femoral artery which is bypassed. The popliteal is narrowed by patent. Findings are as detailed above. There is no visualized large soft tissue hematoma or active appearing extravasation. Consider follow-up right lower extremity ultrasound at the level of the fluid collection and the femoral popliteal bypass. Focal 50% narrowing of the left common femoral artery. Mild narrowing of the left-sided superficial femoral artery without occlusion. Electronically Signed: Afshan Mercado MD at 2:29 EST , Physical Exam Narrative GENERAL: cooperative HEENT: Atraumatic; normocephalic EYES; Anicteric, Normal Conjunctiva NECK; supple, normal thyroid, RESPIRATORY: Diminished to auscultation CARDIOVASCULAR: Regular S1 S2, GI: Soft, nontender, nondistended, black stool present in ostomy : No Renal angle tenderness; EXTREMITIES: Right lower extremity has healing incision present on inside of right calf/knee MUSCULOSKELETAL: no muscle wasting NEURO: Awake; no lateralizing signs. SKIN: No Rash PSYCH; Flat affect Assessment & Plan Assessment/Plan (1) GI bleed: PLAN: Plan is for colonoscopy tomorrow. He can be restarted on his heparin drip at previous dose and to stop heparin at 6 AM. Charges/Coding Visit Charges Inpatient E&M: 22531 Subs Hosp L2
[2023-06-08] MEDS: Bisacodyl 5 MG Tablet 20 MG PO (16:02)
[2023-06-08] MEDS: Polyethylene Glycol 3350 BOWEL PREP PO (17:46)
[2023-06-08] MEDS: Atorvastatin Calcium 20 MG Tablet PO (21:51)
[2023-06-09] VITALS (13 sets, daily range): BP systolic 113–159; BP diastolic 60–82; PULSE 63–72; RESP 16–18; TEMP 36.3–36.9; O2SAT 95–100
[2023-06-09] MEDS: Morphine 2 MG/ML Syringe IV ×2 (05:45→14:44)
[2023-06-09 07:27] LABS: Absolute Lymphocyte Count 2.01 X10^3/uL (0.83-4.51); Basophil# 0.09 X10^3/uL; Eosinophil# 0.49 X10^3/uL; Eosinophils% 5.4 % (0-5); Hematocrit 23.3 % (40-54); Hemoglobin 7.3 g/dL (13.0-16.5); Lymphocyte # 2.01 X10^3/ul (0.83-4.51); Lymphocyte % 22.2 % (19-41); Mean Corp Hgb Conc 31.3 g/dL (32-36); Mean Corpuscular Hgb 27.4 pg (27.0-32.0); Mean Corpuscular Volume 87.6 fL (80-94); Mean Platelet Vol. 8.6 fl (6.2-12.0); Monocyte# 0.48 X10^3/uL; Monocyte% 5.3 % (0-10); NRBC Flagged by Analyzer 0 % (0-5); Neutrophil # 5.96 X10^3/uL (2.7-7.7); Neutrophil % 65.8 % (47-70); Platelet Count 490 K/mm3 (150-450); RBC Distribution Width CV 15.3 % (11.6-14.6); Red Blood Count 2.66 M/mm3 (4.6-6.2); White Blood Count 9.1 K/mm3 (4.4-11.0)
[2023-06-09 08:11] LABS: Anion Gap 3 (5-15); BUN 12 mg/dL (7-18); BUN/Creat Ratio 11.7 RATIO (10-20); Calcium,Total 8.6 mg/dL (8.5-10.1); Chloride 108 mmol/L (98-107); Creatinine, Serum 1.03 mg/dL (0.70-1.30); EST Glomerular Filtration Rate 78 mL/min (>60); Est Glom Filt Rate - Afr Amer 94 mL/min (>60); Estimated Creatinine Clearance 82.66 ml/min; Glucose 95 mg/dL (74-106); Potassium 3.5 mmol/L (3.5-5.1); Sodium Level 136 mmol/L (136-145)
[2023-06-09 08:14] LABS: International Normalized Ratio 1.1; Prothrombin Time (Protime)PT. 14.4 SECONDS (11.7-14.9)
[2023-06-09 08:15] LABS: Partial Thromboplast Time 39.2 Seconds (24.1-36.2)
[2023-06-09] MEDS: Gabapentin 300 MG Capsule PO ×2 (08:40→17:51)
[2023-06-09] MEDS: FLUoxetine 20 MG Capsule PO (08:40)
[2023-06-09] MEDS: Pantoprazole Sodium 80 MG in 0.9% Normal Saline (100mL Bag) 80 ML 10 MG CONT INF ×2 (08:44→17:50)
[2023-06-09] MEDS: Acetaminophen 325 MG Tablet 650 MG PO ×2 (10:00→19:41)
[2023-06-09] MEDS: oxyCODONE 5 MG Tablet PO ×2 (10:01→19:40)
--- NOTE | 2023-06-09 10:23 | PCM.PN.HOSP ---
Reason for Visit Reason for Visit: Diagnoses Raynaud's syndrome without gangrene (06/07/23) Gastrointestinal hemorrhage, unspecified (06/07/23) Psoriasis, unspecified (06/07/23) Unspecified injury of popliteal artery, unspecified leg, initial encounter (06/07/23) Subjective Subjective Patient underwent EGD on 06/08/2023 findings as below - Normal esophagus. - Small hiatal hernia. - No gross lesions in the third portion of the duodenum. - No specimens collected. Plan is for patient to repeat endoscopic evaluation with colonoscopy Objective Data Objective Data Vital Signs: Vital Signs Temp Pulse Resp BP Pulse Ox O2 Del Method O2 Flow Rate 97.7 F L 71 18 139/78 H 98 Room Air 2 06/09/23 07:35 06/09/23 07:35 06/09/23 07:35 06/09/23 07:35 06/09/23 07:35 06/09/23 09:06 06/07/23 22:19 Oxygen Flow Rate (L/min) 2 Oxygen Delivery Method Room Air Weight: 86.771 kg Body Mass Index (BMI) 25.9 Intake & Output: Intake and Output for Last 24 Hours 06/07/23 06/08/23 06/09/23 23:59 23:59 23:59 Intake Total 1066.58 / 1366.58 1312.08 / 1312.08 98.17 / 98.17 Output Total 550 / 550 300 / 300 Balance 1066.58 / 1116.58 762.08 / 762.08 -201.83 / -201.83 Lab / Micro Data 06/09/23 07:05 06/09/23 07:05 Labs: Laboratory Results - last 24 hr 06/07/23 13:53: Diff Path Review Reviewed 06/08/23 05:55: Crossmatch See Detail 06/08/23 12:35: WBC 9.5, RBC 2.65 L, Hgb 7.3 L, Hct 23.4 L, MCV 88.3, MCH 27.5, MCHC 31.2 L, RDW Std Deviation 48.2 H, RDW Coeff of Eze 15.2 H, Plt Count 504 H, MPV 8.9 06/09/23 07:05: WBC 9.1, RBC 2.66 L, Hgb 7.3 L, Hct 23.3 L, MCV 87.6, MCH 27.4, MCHC 31.3 L, RDW Std Deviation 49.0 H, RDW Coeff of Eze 15.3 H, Plt Count 490 H, MPV 8.6, Immature Gran % (Auto) 0.300, Neut % (Auto) 65.8, Lymph % (Auto) 22.2, [place] % (Auto) 5.3, Eos % (Auto) 5.4 H, Baso % (Auto) 1.0, Absolute Neuts (auto) 6.0, Absolute Lymphs (auto) 2.01, Nucleated RBC % 0, PT 14.4, INR 1.1, APTT 39.2 H, Sodium 136, Potassium 3.5, Chloride 108 H, Carbon Dioxide 25.0, Anion Gap 3 L, BUN 12, Creatinine 1.03, Estim Creat Clear Calc 82.66, Est GFR (MDRD) Af Amer 94, Est GFR (MDRD) Non-Af 78, BUN/Creatinine Ratio 11.7, Glucose 95, Calcium 8.6 Micro: Microbiology 06/07/23 14:30 Stool Stool Occult Blood (VENKATA) - Final Occult Blood Positive Physical Exam Narrative GENERAL: cooperative HEENT: Atraumatic; normocephalic EYES; Anicteric, Normal Conjunctiva NECK; supple, normal thyroid, RESPIRATORY: Diminished to auscultation CARDIOVASCULAR: Regular S1 S2, GI: Soft, nontender, nondistended, black stool present in ostomy : No Renal angle tenderness; EXTREMITIES: Right lower extremity has healing incision present on inside of right calf/knee MUSCULOSKELETAL: no muscle wasting NEURO: Awake; no lateralizing signs. SKIN: No Rash PSYCH; Flat affect Assessment & Plan Assessment/Plan (1) GI bleed: PLAN: Plan Patient is a 62-year-old gentleman with recent vascular surgery on systemic anticoagulation with Xarelto who presented with near syncope while taking a shower and dark stools in his colostomy bag. Presented to the emergency department hemoglobin was found to be 5.4. Admitted to monitored bed for subsequent evaluation 1. Acute GI bleed ? Suspected to secondary to upper GI bleed, hemoglobin on admission was 5.4. Patient was typed and crossmatched transfused with 2 unit PRBC started on Protonix drip admitted to monitored bed with consultation placed to GI. Patient is on antiplatelet therapy with aspirin as well as systemic anticoagulation with Xarelto but held -06/09/2023: Patient underwent EGD on 06/08/2023 findings as below - Normal esophagus. - Small hiatal hernia. - No gross lesions in the third portion of the duodenum. - No specimens collected. Plan is for patient to repeat endoscopic evaluation with colonoscopy 2. Anemia -secondary to acute blood loss anemia from GI bleed management as discussed above 3. Peripheral arterial disease ? Patient underwent redo of right above-knee popliteal to posterior tibial bypass with reversed right saphenous vein and ligation of prior femoropopliteal trunk bypass on 05/14/2023 at [facility]. Patient discharged on antiplatelet therapy as well as systemic anticoagulation with Xarelto both of which are currently being held given patient presentation 4. Thrombocytosis ? Reactive following patient severe anemia 5. GERD ? On PPI 6. Psoriasis -Uses ixekizumab on outpt basis 7. Raynaud's's -Supportive care, hold nifedipine d/t presyncopal episode 8. Depression with anxiety ? Patient is on Prozac 9. DVT prophylaxis ? Systemic anticoagulation contraindicated given patient presentation Time spent in the patient's overall evaluation,decision-making process, review of diagnostic data, adjustment of management, discussion with other providers, nursing nursing and ancillary staff involved in patient's care documentation, 50 minutes Charges/Coding Visit Charges Inpatient E&M: 233[address] [facility] L3
[2023-06-09] MEDS: Lactated Ringers 1,000 ML 15 ML IV (11:15)
--- NOTE | 2023-06-09 12:39 | OP.COLON_ITS ---
Patient Name: Choco Maldonado Procedure Date: 06/09/2023 12:10 PM Date of : 1960 Age: 62 Procedure: Colonoscopy Indications: Ileostomy bleed Providers: John Reyes DO Medicines: Monitored Anesthesia Care Patient Profile: This is a 62 year old male. Refer to note in patient chart for documentation of history and physical. Last Colonoscopy: date unknown. Unable to locate last colonoscopy report. Complications: No immediate complications. Procedure: Pre-Anesthesia Assessment: - Prior to the procedure, a History and Physical was performed, and patient medications and allergies were reviewed. The patient is competent. The risks and benefits of the procedure and the sedation options and risks were discussed with the patient. All questions were answered and informed consent was obtained. Patient identification and proposed procedure were verified by the physician in the pre-procedure area. Mental Status Examination: alert and oriented. Airway Examination: normal oropharyngeal airway and neck mobility. Respiratory Examination: clear to auscultation. CV Examination: normal. Prophylactic Antibiotics: The patient does not require prophylactic antibiotics. Prior Anticoagulants: The patient has taken no anticoagulant or antiplatelet agents. ASA Grade Assessment: II - A patient with mild systemic disease. After reviewing the risks and benefits, the patient was deemed in satisfactory condition to undergo the procedure. The anesthesia plan was to use monitored anesthesia care (MAC). Immediately prior to administration of medications, the patient was re-assessed for adequacy to receive sedatives. The heart rate, respiratory rate, oxygen saturations, blood pressure, adequacy of pulmonary ventilation, and response to care were monitored throughout the procedure. The physical status of the patient was re-assessed after the procedure. After I obtained informed consent, the scope was passed under direct vision. Throughout the procedure, the patient's blood pressure, pulse, and oxygen saturations were monitored continuously. The Colonoscope was introduced through the anus and advanced to the terminal ileum. The colonoscopy was performed without difficulty. The patient tolerated the procedure well. The quality of the bowel preparation was poor. The terminal ileum, ileocecal valve, appendiceal orifice, and rectum were photographed. Scope In: 12:22:35 PM Scope Withdrawal Time 0 hours 5 minutes 49 seconds Scope Out: 12:31:24 PM Total Procedure Duration Time 0 hours 8 minutes 49 seconds Findings: There was evidence of a patent end colostomy in the sigmoid colon. This was characterized by healthy appearing mucosa. Stool was found in the descending colon, at the splenic flexure, in the transverse colon, in the ascending colon and in the cecum. Lavage of the area was performed, resulting in incomplete clearance with fair visualization. An 8 mm polyp was found in the ascending colon. The polyp was sessile. Impression: - Preparation of the colon was poor. - Patent end colostomy with healthy appearing mucosa in the sigmoid colon. - Stool in the descending colon, at the splenic flexure, in the transverse colon, in the ascending colon and in the cecum. - No specimens collected. Recommendation: - Discharge patient to home. - Resume previous diet. - Continue present medications. - Repeat colonoscopy because the bowel preparation was suboptimal. Procedure Code(s): --- Professional --- 61310, Colonoscopy, flexible; diagnostic, including collection of specimen(s) by brushing or washing, when performed (separate procedure) CPT copyright 2021 [employer]. All rights reserved. The codes documented in this report are preliminary and upon environmental aid review may be revised to meet current compliance requirements. John Reyes DO 06/09/2023 12:38:25 PM This report has been signed electronically. Number of Addenda: 0 Note Initiated On: 06/09/2023 12:10 PM
--- NOTE | 2023-06-09 12:39 | OP.CCLET_ITS ---
06/09/2023 Kenroy Larry Re : Colonoscopy procedure for hCoco Maldonado Dear Laron This procedure was performed on Friday, June 09, 2023. My impressions and recommendations are as follows: Impressions : - Preparation of the colon was poor. - Patent end colostomy with healthy appearing mucosa in the sigmoid colon. - Stool in the descending colon, at the splenic flexure, in the transverse colon, in the ascending colon and in the cecum. - No specimens collected. Recommendations : - Discharge patient to home. - Resume previous diet. - Continue present medications. - Repeat colonoscopy because the bowel preparation was suboptimal. My findings are described in the full procedure note, which is enclosed. If I can be of further assistance, please feel free to contact me at . Sincerely, John Reyes, 06/09/2023 12:38:25 PM This report has been signed electronically.
--- NOTE | 2023-06-09 13:01 | SUR.PHASEI ---
patient awaiting transport to [facility]
--- NOTE | 2023-06-09 17:29 | PN.SURG_ITS ---
Subjective Subjective Patient is seen resting comfortably in bed today. He had his colonoscopy earlier today, there was noted to be poor prep and there are plans to repeat. He does report that during his prep for the colonoscopy he noted a lot of blood in his ostomy bag. His Hgb is 7.3 today which is stable from yesterday afternoon. He reports continued swelling in his RLE but no pain. Objective Data Objective Data Vital Signs: Vital Signs Temp Pulse Resp BP Pulse Ox O2 Del Method O2 Flow Rate 97.8 F 69 16 116/62 97 Room Air 2 06/09/23 12:50 06/09/23 12:50 06/09/23 12:50 06/09/23 12:50 06/09/23 12:50 06/09/23 12:50 06/07/23 22:19 Oxygen Flow Rate (L/min) 2 Oxygen Delivery Method Room Air Weight: 191 lb 4.757 oz Body Mass Index (BMI) 25.9 Intake & Output: Intake and Output for Last 24 Hours 06/07/23 06/08/23 06/09/23 23:59 23:59 23:59 Intake Total 1066.58 / 1366.58 1312.08 / 1312.08 98.17 / 98.17 Output Total 550 / 550 300 / 300 Balance 1066.58 / 1116.58 762.08 / 762.08 -201.83 / -201.83 Lab / Micro Data 06/09/23 07:05 06/09/23 07:05 Labs: Laboratory Results - last 24 hr 06/09/23 07:05: WBC 9.1, RBC 2.66 L, Hgb 7.3 L, Hct 23.3 L, MCV 87.6, MCH 27.4, MCHC 31.3 L, RDW Std Deviation 49.0 H, RDW Coeff of Eze 15.3 H, Plt Count 490 H, MPV 8.6, Immature Gran % (Auto) 0.300, Neut % (Auto) 65.8, Lymph % (Auto) 22.2, [place] % (Auto) 5.3, Eos % (Auto) 5.4 H, Baso % (Auto) 1.0, Absolute Neuts (auto) 6.0, Absolute Lymphs (auto) 2.01, Nucleated RBC % 0, PT 14.4, INR 1.1, APTT 39.2 H, Sodium 136, Potassium 3.5, Chloride 108 H, Carbon Dioxide 25.0, Anion Gap 3 L , BUN 12, Creatinine 1.03, Estim Creat Clear Calc 82.66, Est GFR (MDRD) Af Amer 94, Est GFR (MDRD) Non-Af 78, BUN/Creatinine Ratio 11.7, Glucose 95, Calcium 8.6 Micro: Microbiology 06/07/23 14:30 Stool Stool Occult Blood (VENKATA) - Final Occult Blood Positive Radiography Diagnostic Testing: Radiology Impression Ankle Brachial Index 06/08/23 07:40 Interpretation Summary Right SAVANNA 1.01, normal. Doppler/PVR waveforms of the right ankle mildly diminished at rest. Left SAVANNA 1.23, normal. Doppler/PVR waveforms of the left leg normal at rest. Ordering Physician: Azalia Freedman Referring Physician: Kenroy Larry Performed By: Isabel Levine, RVT Duplex Scan Lower Extremity Artery 06/08/23 07:40 Interpretation Summary Right SFA-PT bypass patent with elevated velocities throughout. No velocity shift to suggest focal stenosis Ordering Physician: Azalia Freedman Performed By: Seb Mejias, RVT Physical Exam Const alert, oriented x3 and no apparent distress General Appearance: cooperative and comfortable HEENT normocephalic, hearing grossly normal bilaterally, external ears normal and external nose normal Eyes EOMs intact bilaterally General Eye: normal appearance of both eyes Neck General: normal visual inspection and trachea midline Resp normal respiratory effort and no use of accessory muscles Effort and Inspection: able to speak in complete sentences; Negative for labored, grunting, stridor or audible wheezes Cardio regular rate and regular rhythm Extremity Extremity Narrative: Mild RLE edema Neuro oriented x3, CN's II-XII intact bilaterally, moves all extremities and no focal motor deficits Speech: speech normal Psych mental status grossly normal Appearance: grossly normal Attitude: calm and engaged Activity / Motor Behavior: appropriate eye contact Speech: normal speech Mood & Affect: euthymic mood Judgement: judgement good Assessment & Plan Assessment/Plan (1) Peripheral vascular disease: (2) S/P femoral-popliteal bypass surgery: PLAN: Plan Okay to continue to hold anticoagulation with Xarelto/heparin with continued anemia. Continue ASA 81mg daily. He has established outpatient care with [facility] where his bypass surgery was performed. Will ensure vascular imaging from this admission is sent to their office for continuity of care. He is encouraged to reschedule and keep any follow-up with them. Charges/Coding Visit Charges Inpatient E&M: 74661 Subs Hosp L2
[2023-06-09] MEDS: Atorvastatin Calcium 20 MG Tablet PO (19:40)
[2023-06-09] MEDS: MELATONIN 3 MG TABLET PO (23:28)
[2023-06-10 00:22] VITALS: PULSE 75
[2023-06-10] MEDS: oxyCODONE 5 MG Tablet PO ×2 (02:42→10:24)
[2023-06-10] MEDS: Acetaminophen 325 MG Tablet 650 MG PO (02:42)
[2023-06-10 02:48] VITALS: BP 146/67; PULSE 81; RESP 16; TEMP 36.4; O2SAT 98
[2023-06-10 04:14] VITALS: PULSE 82
[2023-06-10] MEDS: Pantoprazole Sodium 80 MG in 0.9% Normal Saline (100mL Bag) 80 ML 10 MG CONT INF (04:19)
[2023-06-10] MEDS: 0.9% Saline Lock 10 ML Syringe IV (04:22)
[2023-06-10] MEDS: Morphine 2 MG/ML Syringe IV (04:22)
--- NOTE | 2023-06-10 07:00 | PN.GI_ITS ---
Subjective Subjective The patient is doing well. He underwent colonoscopy through his stoma pouch. There was not any signs of active GI bleeding seen. There was a lot of stool during his colonoscopy therefore very small lesions cannot be seen. There was no gross lesions seen. Objective Data Objective Data Vital Signs: Vital Signs Temp Pulse Resp BP Pulse Ox O2 Del Method O2 Flow Rate 97.5 F L 65 16 146/78 H 98 Room Air 2 06/10/23 12:10 06/10/23 12:10 06/10/23 12:10 06/10/23 12:10 06/10/23 12:10 06/10/23 12:10 06/07/23 22:19 Oxygen Flow Rate (L/min) 2 Oxygen Delivery Method Room Air Weight: 191 lb 4.757 oz Body Mass Index (BMI) 25.9 Intake & Output: Intake and Output for Last 24 Hours 06/08/23 06/09/23 06/10/23 23:59 23:59 23:59 Intake Total 1312.08 / 1312.08 1099.17 / 1099.17 763.08 / 763.08 Output Total 550 / 550 300 / 300 Balance 762.08 / 762.08 799.17 / 799.17 763.08 / 763.08 Lab / Micro Data 06/09/23 07:05 06/09/23 07:05 Labs: Laboratory Results - last 24 hr 06/08/23 05:55: Crossmatch See Detail Micro: Microbiology 06/07/23 14:30 Stool Stool Occult Blood (VENKATA) - Final Occult Blood Positive Radiography Diagnostic Testing: Radiology Impression Ankle Brachial Index 06/08/23 07:40 Interpretation Summary Right SAVANNA 1.01, normal. Doppler/PVR waveforms of the right ankle mildly diminished at rest. Left SAVANNA 1.23, normal. Doppler/PVR waveforms of the left leg normal at rest. Ordering Physician: Azalia Freedman Referring Physician: Kenroy Larry Performed By: Isabel Levine RVT Duplex Scan Lower Extremity Artery 06/08/23 07:40 Interpretation Summary Right SFA-PT bypass patent with elevated velocities throughout. No velocity shift to suggest focal stenosis Ordering Physician: Azalia Freedman Performed By: Seb Mejias RVT Physical Exam Narrative GENERAL: cooperative HEENT: Atraumatic; normocephalic EYES; Anicteric, Normal Conjunctiva NECK; supple, normal thyroid, RESPIRATORY: Diminished to auscultation CARDIOVASCULAR: Regular S1 S2, GI: Soft, nontender, nondistended, black stool present in ostomy : No Renal angle tenderness; EXTREMITIES: Right lower extremity has healing incision present on inside of r ight calf/knee MUSCULOSKELETAL: no muscle wasting NEURO: Awake; no lateralizing signs. SKIN: No Rash PSYCH; Flat affect Assessment & Plan Assessment/Plan (1) GI bleed: PLAN: Plan Patient is a 62-year-old gentleman with recent vascular surgery on systemic anticoagulation with Xarelto who presented with near syncope while taking a shower and dark stools in his colostomy bag. Presented to the emergency department hemoglobin was found to be 5.4. Admitted to monitored bed for subsequent evaluation Acute GI bleed ? Suspected to secondary to upper GI bleed, hemoglobin on admission was 5.4. Patient was typed and crossmatched transfused with 2 unit PRBC started on Protonix drip admitted to monitored bed with consultation placed to GI. Patient is on antiplatelet therapy with aspirin as well as systemic anticoagulation with Xarelto but held -06/09/2023: Patient underwent EGD on 06/08/2023 findings as below - Normal esophagus. - Small hiatal hernia. - No gross lesions in the third portion of the duodenum. - No specimens collected. Plan is for patient to repeat endoscopic evaluation with colonoscopy ?06/10/2023;Patient seen currently reports no more bleeding. Underwent colonoscopy 06/10/2023 findings and recommendations as below Preparation of the colon was poor. - Patent end colostomy with healthy appearing mucosa in the sigmoid colon. - Stool in the descending colon, at the splenic flexure, in the transverse colon, in the ascending colon and in the cecum. - No specimens collected. Recommendations : - Discharge patient to home. - Resume previous diet. - Continue present medications. - Repeat colonoscopy because the bowel preparation was suboptimal. Recommend outpatient capsule endoscopy to complete his workup Charges/Coding Visit Charges Inpatient E&M: 22436 [facility] Hosp L3
--- NOTE | 2023-06-10 07:57 | PCM.PN.HOSP ---
Reason for Visit Reason for Visit: Diagnoses Raynaud's syndrome without gangrene (06/07/23) Peripheral vascular disease, unspecified (06/07/23) Gastrointestinal hemorrhage, unspecified (06/07/23) Psoriasis, unspecified (06/07/23) Unspecified injury of popliteal artery, unspecified leg, initial encounter (06/07/23) Presence of other vascular implants and grafts (06/07/23) Subjective Subjective Patient seen currently reports no more bleeding. Underwent colonoscopy 06/10/2023 findings and recommendations as below Preparation of the colon was poor. - Patent end colostomy with healthy appearing mucosa in the sigmoid colon. - Stool in the descending colon, at the splenic flexure, in the transverse colon, in the ascending colon and in the cecum. - No specimens collected. Recommendations : - Discharge patient to home. - Resume previous diet. - Continue present medications. - Repeat colonoscopy because the bowel preparation was suboptimal. Objective Data Objective Data Vital Signs: Vital Signs Temp Pulse Resp BP Pulse Ox O2 Del Method O2 Flow Rate 97.6 F L 82 16 146/67 H 98 Room Air 2 06/10/23 02:48 06/10/23 04:14 06/10/23 02:48 06/10/23 02:48 06/10/23 02:48 06/10/23 02:48 06/07/23 22:19 Oxygen Flow Rate (L/min) 2 Oxygen Delivery Method Room Air Weight: 86.771 kg Body Mass Index (BMI) 25.9 Intake & Output: Intake and Output for Last 24 Hours 06/08/23 06/09/23 06/10/23 23:59 23:59 23:59 Intake Total 1312.08 / 1312.08 1099.17 / 1099.17 684.75 / 684.75 Output Total 550 / 550 300 / 300 Balance 762.08 / 762.08 799.17 / 799.17 684.75 / 684.75 Lab / Micro Data 06/09/23 07:05 06/09/23 07:05 Labs: Laboratory Results - last 24 hr 06/09/23 07:05: PT 14.4, INR 1.1, APTT 39.2 H, Sodium 136, Potassium 3.5, Chloride 108 H, Carbon Dioxide 25.0, Anion Gap 3 L, BUN 12, Creatinine 1.03, Estim Creat Clear Calc 82.66, Est GFR (MDRD) Af Amer 94, Est GFR (MDRD) Non-Af 78, BUN/Creatinine Ratio 11.7, Glucose 95, Calcium 8.6 Micro: Microbiology 06/07/23 14:30 Stool Stool Occult Blood (VENKATA) - Final Occult Blood Positive Radiography Diagnostic Testing: Radiology Impression Ankle Brachial Index 06/08/23 07:40 Interpretation Summary Right SAVANNA 1.01, normal. Doppler/PVR waveforms of the right ankle mildly diminished at rest. Left SAVANNA 1.23, normal. Doppler/PVR waveforms of the left leg normal at rest. Ordering Physician: Azalia Freedman Referring Physician: Kenroy Larry Performed By: Isabel Levine RVT Duplex Scan Lower Extremity Artery 06/08/23 07:40 Interpretation Summary Right SFA-PT bypass patent with elevated velocities throughout. No velocity shift to suggest focal stenosis Ordering Physician: Azalia Freedman Performed By: Seb Mejias RVT Physical Exam Narrative GENERAL: cooperative HEENT: Atraumatic; normocephalic EYES; Anicteric, Normal Conjunctiva NECK; supple, normal thyroid, RESPIRATORY: Diminished to auscultation CARDIOVASCULAR: Regular S1 S2, GI: Soft, nontender, nondistended, black stool present in ostomy : No Renal angle tenderness; EXTREMITIES: Right lower extremity has healing incision present on inside of right calf/knee MUSCULOSKELETAL: no muscle wasting NEURO: Awake; no lateralizing signs. SKIN: No Rash PSYCH; Flat affect Assessment & Plan Assessment/Plan (1) GI bleed: PLAN: Plan Patient is a 62-year-old gentleman with recent vascular surgery on systemic anticoagulation with Xarelto who presented with near syncope while taking a shower and dark stools in his colostomy bag. Presented to the emergency department hemoglobin was found to be 5.4. Admitted to monitored bed for subsequent evaluation 1. Acute GI bleed ? Suspected to secondary to upper GI bleed, hemoglobin on admission was 5.4. Patient was typed and crossmatched transfused with 2 unit PRBC started on Protonix drip admitted to monitored bed with consultation placed to GI. Patient is on antiplatelet therapy with aspirin as well as systemic anticoagulation with Xarelto but held -06/09/2023: Patient underwent EGD on 06/08/2023 findings as below - Normal esophagus. - Small hiatal hernia. - No gross lesions in the third portion of the duodenum. - No specimens collected. Plan is for patient to repeat endoscopic evaluation with colonoscopy ?06/10/2023;Patient seen currently reports no more bleeding. Underwent colonoscopy 06/10/2023 findings and recommendations as below Preparation of the colon was poor. - Patent end colostomy with healthy appearing mucosa in the sigmoid colon. - Stool in the descending colon, at the splenic flexure, in the transverse colon, in the ascending colon and in the cecum. - No specimens collected. Recommendations : - Discharge patient to home. - Resume previous diet. - Continue present medications. - Repeat colonoscopy because the bowel preparation was suboptimal. Case subsequently discussed with Dr. Reyes with GI plans for patient to be discharged home to follow-up with Dr. Reyes for outpatient capsule endoscopy to complete his workup 2. Anemia -secondary to acute blood loss anemia from GI bleed management as discussed above 3. Peripheral arterial disease ? Patient underwent redo of right above-knee popliteal to posterior tibial bypass with reversed right saphenous vein and ligation of prior femoropopliteal trunk bypass on 05/14/2023 at [facility]. Patient discharged on antiplatelet therapy as well as systemic anticoagulation with Xarelto both of which are currently being held given patient presentation 4. Thrombocytosis ? Reactive following patient severe anemia 5. GERD ? On PPI 6. Psoriasis -Uses ixekizumab on outpt basis 7. Raynaud's's -Supportive care, hold nifedipine d/t presyncopal episode 8. Depression with anxiety ? Patient is on Prozac 9. DVT prophylaxis ? Systemic anticoagulation contraindicated given patient presentation Time spent in the patient's overall evaluation,decision-making process, review of diagnostic data, adjustment of management, discussion with other providers, nursing nursing and ancillary staff involved in patient's care documentation, 35 minutes
[2023-06-10 08:00] VITALS: BP 146/78; PULSE 65; RESP 16; TEMP 36.4; O2SAT 98
[2023-06-10] MEDS: FLUoxetine 20 MG Capsule PO (08:10)
[2023-06-10] MEDS: Aspirin E.C. 81 MG Tablet PO (08:10)
[2023-06-10] MEDS: Gabapentin 300 MG Capsule PO ×2 (08:10→11:47)
--- NOTE | 2023-06-10 11:32 | DS.PCM_ITS ---
Providers Date of Admission: 06/07/23 Date of Discharge: 06/10/23 Primary Care Physician: Dr. Kenroy Larry MD Consultations 06/07/23 18:49 Consult: Gastroenterology Routine Consulting Provider: [facility] Reason for Consult: GIB EMERGENT Consult: No Notified: Yes Date Notified: 06/07/23 Time Notified: 16:44 Method of Notification: ED Physician Initiated Consult: Vascular Surgery Routine Consulting Provider: Emile Hernandez Reason for Consult: Recent R leg vascular intervention on xeralto and asa EMERGENT Consult: No Notified: Yes Date Notified: 06/07/23 Time Notified: 16:45 Method of Notification: Verbal Reason For Visit: GI BLEED Diagnosis Discharge Diagnosis (1) GI bleed: Status: Acute Code(s): K92.2 - Gastrointestinal hemorrhage, unspecified Plan Patient is a 62-year-old gentleman with recent vascular surgery on systemic anticoagulation with Xarelto who presented with near syncope while taking a shower and dark stools in his colostomy bag. Presented to the emergency department hemoglobin was found to be 5.4. Admitted to monitored bed for subsequent evaluation 1. Acute GI bleed ? Suspected to secondary to upper GI bleed, hemoglobin on admission was 5.4. Patient was typed and crossmatched transfused with 2 unit PRBC started on Protonix drip admitted to monitored bed with consultation placed to GI. Patient is on antiplatelet therapy with aspirin as well as systemic anticoagulation with Xarelto but held -06/09/2023: Patient underwent EGD on 06/08/2023 findings as below - Normal esophagus. - Small hiatal hernia. - No gross lesions in the third portion of the duodenum. - No specimens collected. Plan is for patient to repeat endoscopic evaluation with colonoscopy ?06/10/2023;Patient seen currently reports no more bleeding. Underwent colonoscopy 06/10/2023 findings and recommendations as below Preparation of the colon was poor. - Patent end colostomy with healthy appearing mucosa in the sigmoid colon. - Stool in the descending colon, at the splenic flexure, in the transverse colon, in the ascending colon and in the cecum. - No specimens collected. Recommendations : - Discharge patient to home. - Resume previous diet. - Continue present medications. - Repeat colonoscopy because the bowel preparation was suboptimal. Case subsequently discussed with Dr. Reyes with GI plans for patient to be disc harged home to follow-up with Dr. Reyes for outpatient capsule endoscopy to complete his workup 2. Anemia -secondary to acute blood loss anemia from GI bleed management as discussed above 3. Peripheral arterial disease ? Patient underwent redo of right above-knee popliteal to posterior tibial bypass with reversed right saphenous vein and ligation of prior femoropopliteal trunk bypass on 05/14/2023 at [facility]. Patient discharged on antiplatelet therapy as well as systemic anticoagulation with Xarelto both of which are currently being held given patient presentation ? Patient Xarelto was held on discharge instructed to follow-up with GI as well as his vascular surgeon during prior to resumption 4. Thrombocytosis ? Reactive following patient severe anemia 5. GERD ? On PPI 6. Psoriasis -Uses ixekizumab on outpt basis 7. Raynaud's's -Supportive care, hold nifedipine d/t presyncopal episode 8. Depression with anxiety ? Patient is on Prozac 9. DVT prophylaxis ? Systemic anticoagulation contraindicated given patient presentation Time spent in the patient's overall evaluation,decision-making process, review of diagnostic data, adjustment of management, discussion with other providers, nursing nursing and ancillary staff involved in patient's care documentation, 35 minutes Medications at Discharge Home Medications atorvastatin 20 mg tablet 20 mg PO QHS 09/17/15 nifedipine 30 mg tablet,extended release 30 mg PO DAILY raynauds syndrome 09/17/15 aspirin 81 mg tablet,delayed release 81 mg PO DAILY 09/20/20 fluoxetine 20 mg capsule 20 mg PO DAILY 09/20/20 ixekizumab 80 mg/mL subcutaneous auto-injector (Taltz Autoinjector) 80 mg subcut QMONTH 09/20/20 rizatriptan 10 mg disintegrating tablet 10 mg PO PRN PRN Migraine Headache 09/20/20 amitriptyline 50 mg tablet 50 mg PO QHS 01/17/22 losartan 25 mg tablet 25 mg PO DAILY 01/17/22 ondansetron 4 mg disintegrating tablet 4 mg PO Q8H PRN nausea and vomiting #10 tabs 01/17/22 cyclobenzaprine 10 mg tablet 10 mg PO TID PRN muscle spasms 06/07/23 gabapentin 100 mg capsule 100 mg PO DAILY PRN nerve pain 06/07/23 gabapentin 300 mg capsule 300 mg PO Q12H neuropathy/nerve pain 06/07/23 oxycodone 5 mg tablet 5 mg PO Q6H PRN pain (scale score 4-6) 06/07/23 pantoprazole 40 mg tablet,delayed release 40 mg PO DAILY heart burn 06/07/23 rivaroxaban 20 mg tablet (Xarelto) 20 mg PO QPM blood thinner 06/07/23 iron 150 mg-vit C 60 mg-folate 1 [id number] tablet (Niferex (Sumalate-Quatrefolic)) 1 tab PO DAILY #60 tabs 06/10/23 Hospital Course Summary of Care Provided Minutes Spent on Discharge: 35 Physical Exam Narrative GENERAL: cooperative HEENT: Atraumatic; normocephalic EYES; Anicteric, Normal Conjunctiva NECK; supple, normal thyroid, RESPIRATORY: Diminished to auscultation CARDIOVASCULAR: Regular S1 S2, GI: Soft, nontender, nondistended, black stool present in ostomy : No Renal angle tenderness; EXTREMITIES: Right lower extremity has healing incision present on inside of right calf/knee MUSCULOSKELETAL: no muscle wasting NEURO: Awake; no lateralizing signs. SKIN: No Rash PSYCH; Flat affect Weight / BMI Weight Weight: 86.771 kg Body Mass Index (BMI) 25.9 ABG / Lab / Microbiology Data 06/09/23 07:05 06/09/23 07:05 Microbiology: Microbiology 06/07/23 14:30 Stool Stool Occult Blood (VENKATA) - Final Occult Blood Positive Radiography Diagnostic Testing: Radiology Impression Ankle Brachial Index 06/08/23 07:40 Interpretation Summary Right SAVANNA 1.01, normal. Doppler/PVR waveforms of the right ankle mildly diminished at rest. Left SAVANNA 1.23, normal. Doppler/PVR waveforms of the left leg normal at rest. Ordering Physician: Azalia Freedman Referring Physician: Kenroy Larry Performed By: Isabel Levine RVT Duplex Scan Lower Extremity Artery 06/08/23 07:40 Interpretation Summary Right SFA-PT bypass patent with elevated velocities throughout. No velocity shift to suggest focal stenosis Ordering Physician: Azalia Freedman Performed By: Seb Mejias RVT D/C Instructions Discharge Diet: No restrictions Discharge Activity: Return to Normal Activity Call your doctor if you observe: Fever of 101 or Higher, Shortness of breath, Fainting spells and Chest pain Meaningful Use Info Meaningful Use Diagnoses (Choose all that apply): None applicable Discharge Plan Admission Admit Date/Time: 06/07/23 16:34 Attending Provider: Ermias Ramirez Primary Care Provider: Kenroy Larry Consulting Providers: Emile Hernandez; Amber Gonzalez Discharge Orders/Prescriptions Prescriptions: New Niferex (Sumalate-Quatrefolic) 150 mg iron- 60 mg-1 mg tablet 1 tab PO DAILY Qty: 60 0RF Continued atorvastatin 20 MG tablet 20 mg PO QHS nifedipine 30 MG tablet extended release 30 mg PO DAILY aspirin 81 mg tablet,delayed release (DR/EC) 81 mg PO DAILY Patient Comments: TAKE 1 TABLET BY MOUTH EVERY DAY Taltz Autoinjector 80 mg/mL auto-injector 80 mg SUBCUT QMONTH rizatriptan 10 mg tablet,disintegrating 10 mg PO PRN PRN (Reason: Migraine Headache) Patient Comments: TAKE 1 TABLET BY MOUTH NEEDED for migraine, may repeat in 2 (TWO) hours if needed fluoxetine 20 mg capsule 20 mg PO DAILY Patient Comments: TAKE 1 CAPSULE BY MOUTH EVERY DAY amitriptyline 50 mg tablet 50 mg PO QHS Patient Comments: TAKE 1 TABLET BY MOUTH DAILY AT BEDTIME losartan 25 mg tablet 25 mg PO DAILY Patient Comments: TAKE 1 TABLET BY MOUTH ONCE DAILY ondansetron 4 mg tablet,disintegrating 4 mg PO Q8H PRN (Reason: nausea and vomiting) Qty: 10 0RF cyclobenzaprine 10 mg tablet 10 mg PO TID PRN Patient Comments: Take 1 tablet by mouth three times a day as needed for muscle spasm for up to 7 days. oxycodone 5 mg tablet 5 mg PO Q6H PRN (Reason: pain (scale score 4-6)) Patient Comments: Take 1 tablet by mouth every 6 hours as needed for pain for up to 7 days. gabapentin 300 mg capsule 300 mg PO Q12H Patient Comments: Take 1 capsule oral Twice a day for 28 Days gabapentin 100 mg capsule 100 mg PO DAILY PRN pantoprazole 40 mg tablet,delayed release (DR/EC) 40 mg PO DAILY Patient Comments: TAKE 1 TABLET BY MOUTH DAILY before BREAKFAST. take on empty stomach 30 MINUTES before meal Held Xarelto 20 mg tablet 20 mg PO QPM Hold Instructions: Resume on 07/09/23. Discontinued omeprazole 10 MG capsule,delayed release(DR/EC) 10 mg PO PRN PRN (Reason: gerd) hydrocodone-acetaminophen 5-325 mg tablet 1 tab PO Q6H PRN (Reason: pain) Patient Comments: TAKE 1 TABLET BY MOUTH TWICE DAILY for 28 days. cephalexin 500 mg capsule 500 mg PO DAILY Patient Comments: Take 1 capsule by mouth four times daily for 7 days. Referrals / Follow Up: John Reyes DO [Med Staff - Active Staff] - Within 2 Weeks (For capsule endoscopy) Kenroy Larry MD [Primary Care Provider] - Within 2 Weeks Disposition Disposition (needs filled in before D/C Order can be placed): Home, Self Care Charges/Coding Visit Charges Inpatient E&M: 92586 Disch Hosp >30min
[2023-06-10 12:10] VITALS: BP 146/78; PULSE 65; RESP 16; TEMP 36.4; O2SAT 98
--- NOTE | 2023-06-10 12:34 | CASEMGMT ---
SHIRLEY UMANA F/U: This RN CM met with pt face to face in pt's room. Pt sitting up in chair, alert and appropriate. Pt denies any discharge needs at this time and states his and son will be able to assist him as needed. Pt states he has many f/u appointments planned with [facility] specialists including vascular. Pt states he does plan to attend outpt tx once he takes care of his other appointments. Rashard Cosby RN [facility]
== END 2023-06-10 13:04 | disposition home or self-care (01) | DRG 253 ==
LOC: ED 14:07 → PCU 17:06
PROVIDERS: Anesthesiology; Internal Medicine Gastroenterology; Admitting Provider Internal Medicine; Emergency Provider Student in an Organized Health Care Education/Training Program; PCP Family Medicine; Visit Provider Internal Medicine
PROC: 0DJ08ZZ Inspection of Upper Intestinal Tract, Via Natural or Artificial Opening Endoscopic (ICD-10-PCS; CPT 43235; principal; 2023-06-08 14:10)
PROC: 0DJD8ZZ Inspection of Lower Intestinal Tract, Via Natural or Artificial Opening Endoscopic (ICD-10-PCS; CPT 45378; principal; 2023-06-09 09:10)
DX: K92.2 Gastrointestinal hemorrhage, unspecified (principal); D75.839 Thrombocytosis, unspecified; I10 Essential (primary) hypertension; Z93.3 Colostomy status; L40.9 Psoriasis, unspecified; I73.00 Raynaud's syndrome without gangrene; K21.9 Gastro-esophageal reflux disease without esophagitis; K44.9 Diaphragmatic hernia without obstruction or gangrene; D62 Acute posthemorrhagic anemia; F41.8 Other specified anxiety disorders; G43.909 Migraine, unspecified, not intractable, without status migrainosus; K63.5 Polyp of colon; Z87.891 Personal history of nicotine dependence; Z79.02 Long term (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 of antithrombotics/antiplatelets; Z79.01 Long term (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 of anticoagulants; Z79.82 Long term (current) use of aspirin; Z79.899 Other long term (current) drug therapy
CPT/HCPCS: 36415; 71045; 74177; 75635; 80048; 80076; 82274; 83690; 84443; 84484; 85025; 85027; 85610; 85730; 86644; 86850; 86900; 86901; 86920; 86921; 86922; 93005; 93922; 93926; 99285; 99406; J7030; J7040; J7120; P9016; Q9967; A4216; J2405; J3490

== ENCOUNTER 2023-06-19 11:58 | Inpatient (IN) | payer MEDICAID, SELFPAY ==
[2023-06-19] VITALS (11 sets, daily range): BP systolic 115–156; BP diastolic 48–82; PULSE 73–87; RESP 16–20; TEMP 35.7–37.2; O2SAT 96–100; BMI 26.5; BMI 26.2
--- NOTE | 2023-06-19 12:20 | EKG12_ITS ---
Test Reason : Blood Pressure : / mmHG Vent. Rate : 074 BPM Atrial Rate : 074 BPM P-R Int : 158 ms QRS Dur : 088 ms QT Int : 400 ms P-R-T Axes : 017 023 052 degrees QTc Int : 444 ms Normal sinus rhythm Normal ECG Confirmed by MARY ALICE CARMONA, EKATERINA ([id number]), scientific publications editor KERVIN OLIVAS ([id number]) on 06/21/2023 10:07:26 AM Referred By: Confirmed By:EKATERINA WHEAT MD
--- NOTE | 2023-06-19 12:29 | EDS_ITS ---
HPI HPI - GI History of Present Illness Chief Complaint: GI Bleed Detail of Chief Complaint: Low hemoglobin and black stool from ostomy Informant: patient and spouse/S.O. Abdominal Pain/Flank Pain Onset: Yesterday Context: Gradual Onset Timing: Intermittent Quality: Burning Location: Epigastric Current Severity: Moderate Maximum Severity: Moderate Worsened by: Nothing Relieved by: Nothing Nausea/Vomiting/Emesis GI Symptom: Positive for Nausea; Negative for Vomiting Diarrhea/Melena/Hematochezia GI Symptom: Positive for Melena Associated Symptoms Associated Symptoms: Negative for Dysuria, Frequency, Hematuria or Urgency Narrative Narrative: Patient is a 62-year-old male with history of GI bleed. He was admitted earlier this month. He had an upper and lower GI which were unremarkable. He was seen by Dr. Reyes. states hemoglobin yesterday was 7.3. He now has black stool. He has symptomatic anemia with dyspnea and dyspnea on exertion. He denies chest discomfort with exertion or activity. He is on Eliquis because he had a recent vascularization of his right lower extremity at [facility]. Patient denies headache, visual, ocular auditory symptoms. Patient denies fever, chills or night sweats. He denies weight gain or weight loss. Patient denies dysuria, frequency, urgency or hematuria. Patient does endorse bruising easily. Prior similar symptoms: Yes Recent Illness/Hospitalization: Yes [facility] Medical History Arthritis Diverticulitis GERD (gastroesophageal reflux disease) Heart murmur Hypertension Polycythemia Psoriasis Vertigo Home Medications atorvastatin 20 mg tablet 20 mg PO QHS 09/17/15 [History Last Taken 06/18/23] nifedipine 30 mg tablet,extended release 30 mg PO DAILY PRN raynauds syndrome 09/17/15 [History Last Taken Unknown] aspirin 81 mg tablet,delayed release 81 mg PO DAILY 09/20/20 [History Last Taken 06/18/23] fluoxetine 20 mg capsule 20 mg PO DAILY 09/20/20 [History Last Taken 06/18/23] ixekizumab 80 mg/mL subcutaneous auto-injector (Taltz Autoinjector) 80 mg subcut QMONTH 09/20/20 [History Last Taken 05/24/23] rizatriptan 10 mg disintegrating tablet 10 mg PO PRN PRN Migraine Headache 09/20/20 [History Last Taken Unknown] amitriptyline 50 mg tablet 50 mg PO QHS 01/17/22 [History Last Taken 06/18/23] losartan 25 mg tablet 25 mg PO DAILY 01/17/22 [History Last Taken 06/18/23] ondansetron 4 mg disintegrating tablet 4 mg PO Q8H PRN nausea and vomiting #10 tabs 01/17/22 [Rx Last Taken Unknown] cyclobenzaprine 10 mg tablet 10 mg PO TID PRN muscle spasms 06/07/23 [History Last Taken Unknown] gabapentin 300 mg capsule 300 mg PO Q12H neuropathy/nerve pain 06/07/23 [History Last Taken 06/18/23] oxycodone 5 mg tablet 5 mg PO Q6H PRN pain (scale score 4-6) 06/07/23 [History Last Taken Unknown] pantoprazole 40 mg tablet,delayed release 40 mg PO DAILY heart burn 06/07/23 [History Last Taken 06/18/23] rivaroxaban 20 mg tablet (Xarelto) 20 mg PO QPM blood thinner 06/07/23 [History Last Taken Unknown] iron 150 mg-vit C 60 mg-folate 1 [id number]-[id number] tablet (Niferex (Sumalate-Quatrefolic)) 1 tab PO DAILY #60 tabs 06/10/23 [Rx Last Taken 06/18/23] oxycodone-acetaminophen 5 mg-325 mg tablet 1 tab PO BID PRN pain 06/19/23 [History Last Taken 06/19/23] Allergy/AdvReac Type Severity Reaction Status Date / Time verapamil Allergy Rash Verified 06/19/23 11:58 Surgical History Hx of cardiac catheterization Social History Smoking Status: Former smoker substance use type: does not use ROS ROS ED Constitutional Constitutional ED: Denies chills, fever(s), subjective, sweats or weight loss ENT ENT ED: Denies ear pain, rhinorrhea or sore throat Cardiovascular Cardiovascular: Denies chest pain, orthopnea, palpitations, paroxysmal nocturnal dyspnea or racing heartbeat Respiratory/Chest Respiratory/Chest: Reports dyspnea and dyspnea on exertion; Denies cough, orthopnea or paroxysmal nocturnal dyspnea Gastrointestinal Gastrointestinal: Reports abdominal pain, melena and nausea; Denies constipation, diarrhea or vomiting Genitourinary Genitourinary ED: Denies dysuria, hematuria or urinary frequency Musculoskeletal Musculoskeletal: Denies arthralgias, back pain, myalgias or neck pain Integumentary Denies abscess, Abrasions or rash Neurologic Neurologic: Reports weakness; Denies headache(s) or paresthesias Endocrine Endocrinology: Denies polydipsia, polyphagia or polyuria Hematologic/Lymphatic Hematologic/Lymphatic: Denies easy bleeding, easy bruising or lymphadenopathy Allergic/Immunologic Allergic/Immunologic ED: Denies mouth swelling, tongue swelling or urticaria EXAM Physical Exam Const Vital Signs: 06/19/23 11:59 Temperature 96.3 F L Temperature Source Temporal Pulse Rate 87 Respiratory Rate 16 Blood Pressure 132/61 H Blood Pressure Mean 84 Pulse Ox 98 Oxygen Delivery Method Room Air Positive well nourished and well developed Constitutional Narrative: Patient appears ill and pale. General Appearance ED: well developed and pallor HEENT Reports TM's clear and moist mucous membranes normocephalic and atraumatic Tympanic Membrane ED: Yes TM's clear Eyes PERRL and EOMs intact bilaterally General Eye ED: Yes pale conjunctiva; Negative for scleral icterus Neck no lymphadenopathy, supple and no JVD Resp normal respiratory effort and clear to auscultation bilaterally Cardio regular rate, regular rhythm, S1 normal heart sound, S2 normal heart sound and no murmurs GI non-distended and no masses; Negative for non-tender GI Narrative: Patient has black tarry stool from ostomy. Auscultation: hyperactive bowel sounds Palpation: soft and tender epigastric Back/Spine no CVA tenderness Thoracic Spine / Upper Back: Negative for thoracic spinal tenderness Lumbar Spine / Lower Back: Negative for lumbar spinal tenderness Extremity full ROM Extremity Narrative: Recent revascularization of right lower extremity General Extremety ED: Yes edema General Extremity: edema Neuro CN's II-XII intact bilaterally, moves all extremities and no sensory deficits noted Sensorium / Orientation: alert Psych Mood & Affect: depressed Skin Skin Narrative: There is erythema in the creases of the palm. General Skin Exam: pallor; Negative for jaundice MDM MDM MDM Narrative Medical decision making narrative: Patient GI bleed with signs and symptoms of anemia. Patient was typed and crossed 2 units of blood and 1 unit will be administered in the emergency department. Appropriate blood work was obtained. Coags were not obtained since he is on Eliquis and value is of no meaning. Dr. Reyes was contacted. He is aware of patient he will see him in consultation. History & Record Review Additional record(s) reviewed:: Prior outpatient record (Recent admission for GI bleed. Discharge summary and Dr. Reyes's note were reviewed.), Prior ED visit and Prior labs Lab Data Attestation: I reviewed the patient's lab results. Lab results narrative: BUN is 21 with a creatinine of 0.92 with a BUN to creatinine ratio 23:1. Lactate is normal. Hemoglobin is 5.7 which is approximately 1.5 to 2 g drop from prior. Patient was typed and crossed for 2 units of blood. Received 1 unit in the emergency department. Labs: Laboratory Results - last 24 hr 06/19/23 12:35 WBC 9.6 RBC 2.24 L Hgb 5.7 L* Hct 19.8 L MCV 88.4 MCH 25.4 L MCHC 28.8 L RDW Std Deviation 52.2 H RDW Coeff of Eze 16.3 H Plt Count 566 H MPV 9.1 Immature Gran % (Auto) 0.700 Neut % (Auto) 61.4 Lymph % (Auto) 28.7 Kings % (Auto) 4.6 Eos % (Auto) 3.8 Baso % (Auto) 0.8 Absolute Neuts (auto) 5.9 Absolute Lymphs (auto) 2.74 Nucleated RBC % 0 Diff Path Review May foll Sodium 137 Potassium 3.7 Chloride 107 Carbon Dioxide 25.0 Anion Gap 5 BUN 21 H Creatinine 0.92 Estim Creat Clear Calc 95.29 Est GFR (MDRD) Af Amer 107 Est GFR (MDRD) Non-Af 88 BUN/Creatinine Ratio 22.7 H Glucose 111 H Lactic Acid 1.1 Calcium 8.3 L Blood Type O POSITIVE Antibody Screen NEGATIVE Crossmatch See Detail Management Discussion w/another healthcare provider: Hospitalist (Hospitalist was paged for admission.) and Credit Counselor (Dr. Reyes regarding GI bleed) Discharge Plan Dx/Rx/DC Orders Clinical Impression: Acute gastrointestinal bleeding, Raynaud disease, S/P femoral-popliteal bypass surgery, Symptomatic anemia, Signs and symptoms of anemia, Transfusion of blood during current hospitalization, Anticoagulant long-term use Disposition Disposition: Acute Care Hospital [facility]
[2023-06-19 12:49] LABS: Absolute Lymphocyte Count 2.74 X10^3/uL (0.83-4.51); Absolute Neutrophil Count 5.9 X10^3/uL (2.0-7.7); Basophil# 0.08 X10^3/uL; Basophil% 0.8 % (0-1); Eosinophil# 0.36 X10^3/uL; Eosinophils% 3.8 % (0-5); Hematocrit 19.8 % (40-54); Lymphocyte # 2.74 X10^3/ul (0.83-4.51); Lymphocyte % 28.7 % (19-41); Mean Corp Hgb Conc 28.8 g/dL (32-36); Mean Corpuscular Hgb 25.4 pg (27.0-32.0); Mean Corpuscular Volume 88.4 fL (80-94); Mean Platelet Vol. 9.1 fl (6.2-12.0); Monocyte# 0.44 X10^3/uL; Monocyte% 4.6 % (0-10); NRBC Flagged by Analyzer 0 % (0-5); Neutrophil # 5.86 X10^3/uL (2.7-7.7); Neutrophil % 61.4 % (47-70); POSITIVE COUNT YES; Platelet Count 566 K/mm3 (150-450); RBC Distribution Width CV 16.3 % (11.6-14.6); RBC Distribution Width SD 52.2 fl (35.1-43.9); Red Blood Count 2.24 M/mm3 (4.6-6.2); White Blood Count 9.6 K/mm3 (4.4-11.0)
[2023-06-19 12:56] LABS: Hemoglobin 5.7 g/dL (13.0-16.5)
[2023-06-19 13:01] LABS: Anion Gap 5 (5-15); BUN 21 mg/dL (7-18); BUN/Creat Ratio 22.7 RATIO (10-20); Calcium,Total 8.3 mg/dL (8.5-10.1); Chloride 107 mmol/L (98-107); Creatinine, Serum 0.92 mg/dL (0.70-1.30); EST Glomerular Filtration Rate 88 mL/min (>60); Est Glom Filt Rate - Afr Amer 107 mL/min (>60); Estimated Creatinine Clearance 95.29 ml/min; Glucose 111 mg/dL (74-106); Potassium 3.7 mmol/L (3.5-5.1); Sodium Level 137 mmol/L (136-145)
[2023-06-19 13:08] LABS: Lactic Acid 1.1 mmol/L (0.4-1.9)
[2023-06-19] MEDS: Morphine 4 MG/ML Syringe IV (13:39)
--- NOTE | 2023-06-19 13:42 | PCM.HP.STD ---
HPI - General General Date of Admission: 06/19/23 Date of Service: 06/19/23 Chief Complaint: Acute on chronic anemia secondary to blood loss HPI Narrative SALBADOR FARNSWORTH, is a 62 M with history of severe diverticulitis complicated by perforation s/p sigmoidectomy and colostomy in place, Raynaud's syndrome without gangrene, peripheral vascular disease, psoriasis, redo of right above-knee popliteal to posterior tibial bypass with reversed right saphenous vein and ligation of prior femoropopliteal trunk bypass on 05/14/2023 at [facility] on xarelto and aspirin. He was recently admitted for concerns regarding acute on chronic anemia and GI bleed. He underwent Upper endoscopy on 06/08/2023 showed normal esophagus, small hiatal hernia no gross lesions in the third portion of duodenum. There was a end colostomy, there was stool in the descending colon at the splenic flexure in the transverse and descending and ascending. No blood was noted. Plan was to repeat bowel prep and colonoscopy. Today, Presents with dark black stools in her colostomy bag with progressive worsening of his leg pain and fatigue. There is some associated dizziness and lightheadedness. No falls. On evaluation in the ED he was found to have hemoglobin of 5.8 gm/dL. [facility] Medical History Arthritis Diverticulitis GERD (gastroesophageal reflux disease) Heart murmur Hypertension Polycythemia Psoriasis Vertigo Home Medications atorvastatin 20 mg tablet 20 mg PO QHS 09/17/15 [History Last Taken 06/18/23] nifedipine 30 mg tablet,extended release 30 mg PO DAILY PRN raynauds syndrome 09/17/15 [History Last Taken Unknown] aspirin 81 mg tablet,delayed release 81 mg PO DAILY 09/20/20 [History Last Taken 06/18/23] fluoxetine 20 mg capsule 20 mg PO DAILY 09/20/20 [History Last Taken 06/18/23] ixekizumab 80 mg/mL subcutaneous auto-injector (Taltz Autoinjector) 80 mg subcut QMONTH 09/20/20 [History Last Taken 05/24/23] rizatriptan 10 mg disintegrating tablet 10 mg PO PRN PRN Migraine Headache 09/20/20 [History Last Taken Unknown] amitriptyline 50 mg tablet 50 mg PO QHS 01/17/22 [History Last Taken 06/18/23] losartan 25 mg tablet 25 mg PO DAILY 01/17/22 [History Last Taken 06/18/23] ondansetron 4 mg disintegrating tablet 4 mg PO Q8H PRN nausea and vomiting #10 tabs 01/17/22 [Rx Last Taken Unknown] cyclobenzaprine 10 mg tablet 10 mg PO TID PRN muscle spasms 06/07/23 [History Last Taken Unknown] gabapentin 300 mg capsule 300 mg PO Q12H neuropathy/nerve pain 06/07/23 [History Last Taken 06/18/23] oxycodone 5 mg tablet 5 mg PO Q6H PRN pain (scale score 4-6) 06/07/23 [History Last Taken Unknown] pantoprazole 40 mg tablet,delayed release 40 mg PO DAILY heart burn 06/07/23 [History Last Taken 06/18/23] rivaroxaban 20 mg tablet (Xarelto) 20 mg PO QPM blood thinner 06/07/23 [History Last Taken Unknown] iron 150 mg-vit C 60 mg-folate 1 [id number] tablet (Niferex (Sumalate-Quatrefolic)) 1 tab PO DAILY #60 tabs 06/10/23 [Rx Last Taken 06/18/23] oxycodone-acetaminophen 5 mg-325 mg tablet 1 tab PO BID PRN pain 06/19/23 [History Last Taken 06/19/23] Allergy/AdvReac Type Severity Reaction Status Date / Time verapamil Allergy Rash Verified 06/19/23 11:58 Surgical History Hx of cardiac catheterization Social History Smoking Status: Former smoker substance use type: does not use ROS Review of Systems ROS Unobtainable: Denies due to encephalopathy, due to endotracheal tube, due to mental condition, due to mental status or other Constitutional Constitutional: Reports fatigue, malaise and weakness Eyes Eyes: Denies blurry vision, change in eye color, change in vision, discharge from eye(s), double vision, erythema, eye pain, loss of vision or other ENT HEENT: Denies abnormal hearing, dysphagia, ear pain, epistaxis, headache(s), hearing loss, nasal congestion, nasal discharge, post nasal drip, sinus pressure, sore throat or other Cardiovascular Cardiovascular: Reports claudication and edema Respiratory/Chest Respiratory/Chest: Denies cough, dyspnea, excessive phlegm production, hemoptysis, productive cough, shortness of breath at rest, shortness of breath with exertion, wheezing or other Gastrointestinal Gastrointestinal: Reports melena Musculoskeletal Musculoskeletal: Reports arthralgias and back pain Vital Signs Vital Signs Vital Signs: 06/19/23 11:59 Temperature 96.3 F L Temperature Source Temporal Pulse Rate 87 Respiratory Rate 16 Blood Pressure 132/61 H Blood Pressure Mean 84 Pulse Ox 98 Oxygen Delivery Method Room Air Weight Weight: 201 lb Body Mass Index (BMI) 26.5 Physical Exam Const alert and oriented x3 HEENT normocephalic Eyes PERRL Neck supple Cardio no gallops and no clicks Cardio Narrative: Systolic ejection murmur GI soft to palpation GI Narrative: Melena present in the colostomy bag Extremity Extremity Narrative: Tenderness, edema over the right lower extremity, surgical scars are healing well Neuro Sensorium / Orientation: awake and alert Results Medical Records Data Attestation: I reviewed the patient's medical records Lab / Micro Data Attestation: I reviewed the patient's lab results. Lab results narrative: Hemoglobin of 5.7, MCV 88.4 lactic acid 1.1 creatinine 0.9 platelet count 566. 06/19/23 12:35 06/19/23 12:35 Labs: Laboratory Results - last 24 hr 06/19/23 12:35: WBC 9.6, RBC 2.24 L, Hgb 5.7 L*, Hct 19.8 L, MCV 88.4, MCH 25.4 L, MCHC 28.8 L, RDW Std Deviation 52.2 H, RDW Coeff of Eze 16.3 H, Plt Count 566 H, MPV 9.1, Immature Gran % (Auto) 0.700, Neut % (Auto) 61.4, Lymph % (Auto) 28.7, [place] % (Auto) 4.6, Eos % (Auto) 3.8, Baso % (Auto) 0.8, Absolute Neuts (auto) 5.9, Absolute Lymphs (auto) 2.74, Nucleated RBC % 0, Diff Path Review May , Sodium 137, Potassium 3.7, Chloride 107, Carbon Dioxide 25.0, Anion Gap 5, BUN 21 H, Creatinine 0.92, Estim Creat Clear Calc 95.29, Est GFR (MDRD) Af Amer 107, Est GFR (MDRD) Non-Af 88, BUN/Creatinine Ratio 22.7 H, Glucose 111 H, Lactic Acid 1.1, Calcium 8.3 L, Blood Type O POSITIVE, Antibody Screen NEGATIVE, Crossmatch See Detail Micro: Microbiology 06/19/23 12:42 Stool Stool Occult Blood (VENKATA) - Final Occult Blood Positive Assessment & Plan Assessment/Plan (1) Symptomatic anemia: PLAN: Plan Mr Farnsworth, 62-year-old male presents to the ED with concerns regarding worsening fatigue and black tarry bowel movements. He is on chronic anticoagulation for peripheral vascular disease with recent bypass done at [facility] and was also recently discharged from [facility] for similar episodes of concern bleeding. 1. Suspected GI bleeding: The likely source of bleeding remains to be upper given the melena, could be a small bowel bleeding also. His last upper endoscopy was normal. The differentials for his bleeding includes arteriovenous malformation related bleeding as there is a slow but steady ooze with anticoagulation, ulcer related bleeding, neoplasm. Gastroenterology consult was placed and Dr. Reyes was updated through the ED regarding the admission. Appreciate his input -2 large-bore IV cannulas -IV Protonix 40 mg twice daily -CBC twice daily monitoring -Gastroenterology consult placed -Hold Eliquis for now given the recent bleeding -Blood transfusion to maintain hemoglobin greater than 7 -Believe the plan for video capsule endoscopy for further evaluation if the repeat evaluation is negative per gastroenterology -Continue iron supplementation 2. Severe peripheral vascular disease: -He underwent redo of right above-knee popliteal to posterior tibial bypass with reversed right saphenous vein and ligation of prior femoropopliteal trunk bypass on 05/14/2023 - Will repeat arterial Doppler given the worsening pain at this time, likely reason for the pain is the anemia and anticipate improvement with blood transfusion 3. Chronic pain: Chronic back pain and PVD related plain. Follows up with pain clinic here at [facility]. Will continue outpatient opioid regimen 4. Hypertension: Continue losartan, nifedipine 5. GERD: Continue Protonix IV twice daily 6. Psoriasis: Uses ixekizumab on outpt basis 7. Depression with anxiety: Continue Prozac 8. DVT prophylaxis: Systemic anticoagulation contraindicated due to suspected acute GI bleeding. Charges/Coding Visit Charges Inpatient E&M: 57021 Init Hosp L2
--- NOTE | 2023-06-19 13:43 | NURSING ---
PCU [facility] ACUTE GI BLEED, SYMPTOMATIC ANEMIA
[2023-06-19] MEDS: Losartan Potassium 25 MG Tablet PO (17:26)
[2023-06-19] MEDS: FLUoxetine 20 MG Capsule PO (17:26)
[2023-06-19] MEDS: cycloBENZAPRine HCl 10 MG Tablet PO ×2 (17:26→22:16)
[2023-06-19] MEDS: Gabapentin 300 MG Capsule PO (19:39)
[2023-06-19] MEDS: Amitriptyline 25 MG Tablet 50 MG PO (19:40)
[2023-06-19] MEDS: Atorvastatin Calcium 20 MG Tablet PO (19:40)
[2023-06-19] MEDS: 0.9% Normal Saline (250mL Bag) 250 ML 15 ML IV (20:01)
[2023-06-19] MEDS: Pantoprazole Sodium 40 MG in 0.9% Normal Saline (100mL MB+) 100 ML 330 MG IV (20:01)
[2023-06-19] MEDS: 0.9% Saline Lock 10 ML Syringe IV (20:01)
[2023-06-19] MEDS: Oxycodone/Apap 5/325 Tablet PO (21:10)
[2023-06-20] VITALS: BP 134/62; PULSE 80; RESP 18; TEMP 36.7; O2SAT 97
[2023-06-20] MEDS: oxyCODONE 5 MG Tablet PO (00:19)
[2023-06-20] MEDS: 0.9% Saline Lock 10 ML Syringe IV ×2 (00:19→20:37)
[2023-06-20 01:30] LABS: Absolute Lymphocyte Count 2.97 X10^3/uL (0.83-4.51); Absolute Neutrophil Count 8.9 X10^3/uL (2.0-7.7); Basophil# 0.14 X10^3/uL; Basophil% 1.1 % (0-1); Eosinophil# 0.38 X10^3/uL; Eosinophils% 2.9 % (0-5); Hematocrit 24.6 % (40-54); Hemoglobin 7.5 g/dL (13.0-16.5); Lymphocyte # 2.97 X10^3/ul (0.83-4.51); Lymphocyte % 22.6 % (19-41); Mean Corp Hgb Conc 30.5 g/dL (32-36); Mean Corpuscular Hgb 26.6 pg (27.0-32.0); Mean Corpuscular Volume 87.2 fL (80-94); Monocyte# 0.71 X10^3/uL; Monocyte% 5.4 % (0-10); NRBC Flagged by Analyzer 0 % (0-5); Neutrophil % 67.5 % (47-70); Platelet Count 514 K/mm3 (150-450); RBC Distribution Width CV 15.9 % (11.6-14.6); RBC Distribution Width SD 50.5 fl (35.1-43.9); Red Blood Count 2.82 M/mm3 (4.6-6.2); White Blood Count 13.2 K/mm3 (4.4-11.0)
[2023-06-20] MEDS: cycloBENZAPRine HCl 10 MG Tablet PO ×2 (03:11→20:35)
[2023-06-20 04:30] VITALS: BP 130/63; PULSE 82; RESP 18; TEMP 36.6; O2SAT 95
[2023-06-20] MEDS: Oxycodone/Apap 5/325 Tablet PO ×3 (05:56→23:00)
[2023-06-20 06:35] LABS: International Normalized Ratio 1.1; Prothrombin Time (Protime)PT. 13.8 SECONDS (11.7-14.9)
[2023-06-20 06:42] LABS: AST(SGOT) 21 U/L (15-37); Alanine Aminotransfer ALT/SGPT 19 U/L (16-61); Albumin, Serum 3.5 g/dL (3.2-5.0); Alkaline Phosphatase 93 U/L (45-117); Anion Gap 5 (5-15); BUN 17 mg/dL (7-18); Bilirubin, Direct 0.17 mg/dL (0.00-0.30); Calcium,Total 8.7 mg/dL (8.5-10.1); Chloride 109 mmol/L (98-107); Creatinine, Serum 0.94 mg/dL (0.70-1.30); EST Glomerular Filtration Rate 86 mL/min (>60); Est Glom Filt Rate - Afr Amer 104 mL/min (>60); Estimated Creatinine Clearance 93.26 ml/min; Globulin 3.6 g/dL (2.2-4.2); Glucose 103 mg/dL (74-106); Magnesium 2.2 mg/dL (1.6-2.6); Phosphorus 4.5 mg/dL (2.5-4.9); Potassium 3.7 mmol/L (3.5-5.1); Protein, Total 7.1 g/dL (6.4-8.2); Sodium Level 138 mmol/L (136-145)
[2023-06-20] MEDS: Aspirin E.C. 81 MG Tablet PO (07:52)
[2023-06-20 09:16] VITALS: BP 150/66; PULSE 74; RESP 18; TEMP 36.6; O2SAT 97
[2023-06-20] MEDS: Losartan Potassium 25 MG Tablet PO (09:28)
[2023-06-20] MEDS: Gabapentin 300 MG Capsule PO ×2 (09:28→20:35)
[2023-06-20] MEDS: FLUoxetine 20 MG Capsule PO (09:28)
[2023-06-20] MEDS: Iron Polysaccharide Complex 150 MG CAPSULE PO (09:28)
[2023-06-20] MEDS: Pantoprazole Sodium 40 MG in 0.9% Normal Saline (100mL MB+) 100 ML 330 MG IV ×2 (09:29→20:38)
--- NOTE | 2023-06-20 10:06 | VDLE_ITS ---
Reason For Study: swelling RIGHT LEFT GSV is normal. CFV is compressible, spontaneous, phasic, CFV is compressible, spontaneous, phasic, competent, and demonstrates normal competent and demonstrates normal augmentation. augmentation. FV is compressible, spontaneous, phasic, competent and demonstrates normal augmentation. POP V is compressible, spontaneous, phasic, competent and demonstrates normal augmentation. T/P Trunk is compressible. PTV is compressible. RT PerV is compressible. GSV is partially harvested. Procedure This is a venous duplex using B-mode, color flow and spectral Doppler. Exam performed portable in patient room. The exam was diagnostic. A preliminary report was called and/or faxed to Dr. Bergeron. VL/Venous Duplex US, Unilateral Interpretation Summary Deep veins of the right lower extremity are patent and compressible segmentally . There is no evidence of right lower extremity deep vein thrombosis. The right great sapheno us vein appears patent and compressible segmentally. Ordering Physician: Milton Bergeron Performed By: Seb Mejias RVT
[2023-06-20 10:12] LABS: Absolute Lymphocyte Count 2.34 X10^3/uL (0.83-4.51); Absolute Neutrophil Count 7.1 X10^3/uL (2.0-7.7); Basophil# 0.11 X10^3/uL; Basophil% 1.1 % (0-1); Eosinophil# 0.36 X10^3/uL; Eosinophils% 3.4 % (0-5); Hematocrit 24.9 % (40-54); Hemoglobin 7.6 g/dL (13.0-16.5); Lymphocyte # 2.34 X10^3/ul (0.83-4.51); Lymphocyte % 22.4 % (19-41); Mean Corp Hgb Conc 30.5 g/dL (32-36); Mean Corpuscular Hgb 26.9 pg (27.0-32.0); Mean Platelet Vol. 8.9 fl (6.2-12.0); Monocyte% 4.8 % (0-10); NRBC Flagged by Analyzer 0 % (0-5); Neutrophil # 7.08 X10^3/uL (2.7-7.7); Neutrophil % 67.8 % (47-70); Platelet Count 535 K/mm3 (150-450); RBC Distribution Width CV 16.1 % (11.6-14.6); RBC Distribution Width SD 51.5 fl (35.1-43.9); Red Blood Count 2.83 M/mm3 (4.6-6.2); White Blood Count 10.4 K/mm3 (4.4-11.0)
[2023-06-20 15:00] VITALS: BP 134/78; PULSE 69; RESP 16; TEMP 36.4; O2SAT 99
--- NOTE | 2023-06-20 16:10 | PCM.PN.HOSP ---
Reason for Visit Reason for Visit: Diagnoses Anemia, unspecified (06/19/23) Subjective Subjective Patient was seen and examined today, he was admitted yesterday due to a low hemoglobin and possible upper GI bleed. Patient has significant edema in his right leg, he has had arterial vascular surgery in the recent past twice, I ordered a duplex of his right leg today which was negative for VTE. Patient's hemoglobin today was 7.6. He has been given 2 units of packed red blood cells, hemoglobin on admission was 5.7. Objective Data Objective Data Vital Signs: Vital Signs Temp Pulse Resp BP Pulse Ox O2 Del Method 97.6 F L 69 16 134/78 H 99 Room Air 06/20/23 15:00 06/20/23 15:00 06/20/23 15:00 06/20/23 15:00 06/20/23 15:00 06/20/23 15:00 Oxygen Delivery Method Room Air Weight: 90.1 kg Body Mass Index (BMI) 26.2 Intake & Output: Intake and Output for Last 24 Hours 06/18/23 06/19/23 06/20/23 23:59 23:59 23:59 Intake Total 100.75 / 101.75 111 / 111 Balance 100.75 / 101.75 111 / 111 Lab / Micro Data 06/20/23 10:06 06/20/23 05:19 Labs: Laboratory Results - last 24 hr 06/19/23 12:35: Blood Type O POSITIVE, Antibody Screen NEGATIVE, Crossmatch See Detail 06/20/23 01:10: WBC 13.2 H, RBC 2.82 L, Hgb 7.5 L, Hct 24.6 L, MCV 87.2, MCH 26.6 L, MCHC 30.5 L D, RDW Std Deviation 50.5 H, RDW Coeff of Eze 15.9 H, Plt Count 514 H, MPV 9.0, Immature Gran % (Auto) 0.500, Neut % (Auto) 67.5, Lymph % (Auto) 22.6, [place] % (Auto) 5.4, Eos % (Auto) 2.9, Baso % (Auto) 1.1 H, Absolute Neuts (auto) 8.9 H, Absolute Lymphs (auto) 2.97, Nucleated RBC % 0 06/20/23 05:19: PT 13.8, INR 1.1, Sodium 138, Potassium 3.7, Chloride 109 H, Carbon Dioxide 24.0, Anion Gap 5, BUN 17, Creatinine 0.94, Estim Creat Clear Calc 93.26, Est GFR (MDRD) Af Amer 104, Est GFR (MDRD) Non-Af 86, BUN/Creatinine Ratio 18.0, Glucose 103, Calcium 8.7, Phosphorus 4.5, Magnesium 2.2, Total Bilirubin 0.60, Direct Bilirubin 0.17, AST 21, ALT 19, Alkaline Phosphatase 93, Total Protein 7.1, Albumin 3.5, Globulin 3.6, Albumin/Globulin Ratio 1.0 06/20/23 10:06: WBC 10.4, RBC 2.83 L, Hgb 7.6 L, Hct 24.9 L, MCV 88.0, MCH 26.9 L, MCHC 30.5 L, RDW Std Deviation 51.5 H, RDW Coeff of Eze 16.1 H, Plt Count 535 H, MPV 8.9, Immature Gran % (Auto) 0.500, Neut % (Auto) 67.8, Lymph % (Auto) 22.4, [place] % (Auto) 4.8, Eos % (Auto) 3.4, Baso % (Auto) 1.1 H, Absolute Neuts (auto) 7.1, Absolute Lymphs (auto) 2.34, Nucleated RBC % 0 Micro: Microbiology 06/19/23 12:42 Stool Stool Occult Blood (VENKATA) - Final Occult Blood Positive Physical Exam Const alert, oriented x3, no apparent distress and average body habitus General Appearance: cooperative, well kempt and well developed Orientation / Consciousness: awake, oriented to person, oriented to place and oriented to time HEENT normocephalic, head/scalp atraumatic and moist oral mucous membranes Eyes PERRL, EOMs intact bilaterally and conjunctivae normal Neck supple, no JVD, thyroid normal and no carotid bruits General: trachea midline Resp normal respiratory effort, no retractions, no use of accessory muscles and clear to auscultation bilaterally Auscultation: Negative for rales, rhonchi or wheezes Cardio regular rate, regular rhythm, S1 normal heart sound, S2 normal heart sound, no murmurs, no rub and no gallops GI normal to inspection, nondistended, normoactive bowel sounds, soft to palpation, non-tender and non-distended GI Narrative: Patient has a colostomy over the left mid/lateral quadrant Extremity Extremity Narrative: Patient has marked edema in the right leg including edema of the right dorsum of the foot, there is a long surgical scar extending down the inner aspect of the leg from the upper thigh area down below the knee. There is an open area over the left lateral calf area that is covered with a bandage at this time. Skin no rashes or lesions noted General Skin Exam: no breakdown Neuro oriented x3, CN's II-XII intact bilaterally, no focal motor deficits and no sensory deficits noted Sensorium / Orientation: awake and alert Speech: speech normal Psych affect normal Assessment & Plan Assessment/Plan (1) Acute gastrointestinal bleeding: PLAN: Plan 1. Acute gastrointestinal bleeding-etiology unclear at this point, patient will remain on Protonix, he will undergo endoscopy tomorrow. #2 acute blood loss anemia requiring blood transfusion-patient's hemoglobin will be monitored #3 status post femoral-popliteal bypass x 2 #4 chronic right leg edema-no evidence of VTE at this time #5 chronic depression-patient remains on Prozac #6 hyperlipidemia-patient is on atorvastatin #7 essential hypertension-patient will remain on his losartan, patient takes. Nifedipine for Raynaud's syndrome Total clinical time spent by myself addressing the patient's medical issues, reviewing all of his data, and collaborating with the patient's care team: 35 minutes Charges/Coding Visit Charges Inpatient E&M: 22032 Subs Hosp L2
[2023-06-20 17:25] LABS: Hemoglobin 7.8 g/dL (13.0-16.5)
[2023-06-20 20:20] VITALS: BP 125/63; PULSE 67; RESP 18; TEMP 36.3; O2SAT 98
[2023-06-20] MEDS: Atorvastatin Calcium 20 MG Tablet PO (20:36)
[2023-06-20] MEDS: Amitriptyline 25 MG Tablet 50 MG PO (20:36)
[2023-06-20 20:41] VITALS: BMI 26.2
[2023-06-20 23:02] VITALS: BP 123/65; PULSE 78; RESP 18; TEMP 36.2; O2SAT 97
[2023-06-21] MEDS: cycloBENZAPRine HCl 10 MG Tablet PO ×2 (04:39→22:53)
[2023-06-21 04:42] VITALS: BP 140/73; PULSE 81; RESP 18; TEMP 36.2; O2SAT 96
[2023-06-21 05:57] LABS: Absolute Lymphocyte Count 2.58 X10^3/uL (0.83-4.51); Absolute Neutrophil Count 6.9 X10^3/uL (2.0-7.7); Basophil% 0.9 % (0-1); Eosinophil# 0.38 X10^3/uL; Eosinophils% 3.6 % (0-5); Hemoglobin 7.5 g/dL (13.0-16.5); Lymphocyte # 2.58 X10^3/ul (0.83-4.51); Lymphocyte % 24.3 % (19-41); Mean Corpuscular Hgb 26.5 pg (27.0-32.0); Mean Corpuscular Volume 88.3 fL (80-94); Mean Platelet Vol. 9.3 fl (6.2-12.0); Monocyte# 0.61 X10^3/uL; Monocyte% 5.8 % (0-10); NRBC Flagged by Analyzer 0 % (0-5); Neutrophil # 6.89 X10^3/uL (2.7-7.7); Platelet Count 557 K/mm3 (150-450); RBC Distribution Width CV 16.3 % (11.6-14.6); RBC Distribution Width SD 52.1 fl (35.1-43.9); Red Blood Count 2.83 M/mm3 (4.6-6.2); White Blood Count 10.6 K/mm3 (4.4-11.0)
[2023-06-21 06:21] LABS: Partial Thromboplast Time 40.1 Seconds (24.1-36.2)
[2023-06-21 06:28] LABS: Anion Gap 5 (5-15); BUN 13 mg/dL (7-18); BUN/Creat Ratio 12.9 RATIO (10-20); Calcium,Total 8.7 mg/dL (8.5-10.1); Chloride 109 mmol/L (98-107); Creatinine, Serum 1.01 mg/dL (0.70-1.30); EST Glomerular Filtration Rate 80 mL/min (>60); Est Glom Filt Rate - Afr Amer 96 mL/min (>60); Glucose 91 mg/dL (74-106); Potassium 3.6 mmol/L (3.5-5.1); Sodium Level 139 mmol/L (136-145)
[2023-06-21 09:02] VITALS: BP 114/53; PULSE 79; RESP 16; TEMP 36.6; O2SAT 97
[2023-06-21] MEDS: FLUoxetine 20 MG Capsule PO (09:08)
[2023-06-21] MEDS: Losartan Potassium 25 MG Tablet PO (09:08)
[2023-06-21] MEDS: Aspirin E.C. 81 MG Tablet PO (09:08)
[2023-06-21] MEDS: Iron Polysaccharide Complex 150 MG CAPSULE PO (09:09)
[2023-06-21] MEDS: Oxycodone/Apap 5/325 Tablet PO ×3 (09:16→22:54)
[2023-06-21] MEDS: Gabapentin 300 MG Capsule PO ×2 (09:16→21:05)
[2023-06-21] MEDS: Pantoprazole Sodium 40 MG in 0.9% Normal Saline (100mL MB+) 100 ML 330 MG IV ×2 (09:31→21:05)
[2023-06-21 09:45] VITALS: BMI 26.2
--- NOTE | 2023-06-21 12:50 | CON.PCM.GI_ITS ---
HPI Consult Data Date of Consult: 06/21/23 HPI Narrative Reason for Consultation: GI bleed HPI Narrative: SALBADOR FARNSWORTH, is a 62 M with history of severe diverticulitis complicated by perforation s/p sigmoidectomy and colostomy in place, Raynaud's syndrome without gangrene, peripheral vascular disease, psoriasis, redo of right above-knee popliteal to posterior tibial bypass with reversed right saphenous vein and ligation of prior femoropopliteal trunk bypass on 05/14/2023 at [facility] on xarelto and aspirin. He was recently admitted for concerns regarding acute on chronic anemia and GI bleed. He underwent Upper endoscopy on 06/08/2023 showed normal esophagus, small hiatal hernia no gross lesions in the third portion of duodenum. There was a end colostomy, there was stool in the descending colon at the splenic flexure in the transverse and descending and ascending. No blood was noted. He presented with dark black stools in her colostomy bag with progressive worsening of his leg pain and fatigue. There is some associated dizziness and lightheadedness. No falls. On evaluation in the ED he was found to have hem oglobin of 5.8 gm/dL. [facility] Medical History Arthritis Diverticulitis GERD (gastroesophageal reflux disease) Heart murmur Hypertension Polycythemia Psoriasis Vertigo Home Medications atorvastatin 20 mg tablet 20 mg PO QHS 09/17/15 [History Last Taken 06/18/23] nifedipine 30 mg tablet,extended release 30 mg PO DAILY PRN raynauds syndrome 09/17/15 [History Last Taken Unknown] aspirin 81 mg tablet,delayed release 81 mg PO DAILY 09/20/20 [History Last Taken 06/18/23] fluoxetine 20 mg capsule 20 mg PO DAILY 09/20/20 [History Last Taken 06/18/23] ixekizumab 80 mg/mL subcutaneous auto-injector (Taltz Autoinjector) 80 mg subcut QMONTH 09/20/20 [History Last Taken 05/24/23] rizatriptan 10 mg disintegrating tablet 10 mg PO PRN PRN Migraine Headache 09/20/20 [History Last Taken Unknown] amitriptyline 50 mg tablet 50 mg PO QHS 01/17/22 [History Last Taken 06/18/23] losartan 25 mg tablet 25 mg PO DAILY 01/17/22 [History Last Taken 06/18/23] ondansetron 4 mg disintegrating tablet 4 mg PO Q8H PRN nausea and vomiting #10 tabs 01/17/22 [Rx Last Taken Unknown] cyclobenzaprine 10 mg tablet 10 mg PO TID PRN muscle spasms 06/07/23 [History Last Taken Unknown] gabapentin 300 mg capsule 300 mg PO Q12H neuropathy/nerve pain 06/07/23 [History Last Taken 06/18/23] oxycodone 5 mg tablet 5 mg PO Q6H PRN pain (scale score 4-6) 06/07/23 [History Last Taken 06/19/23 07:30] pantoprazole 40 mg tablet,delayed release 40 mg PO DAILY heart burn 06/07/23 [History Last Taken 06/18/23] rivaroxaban 20 mg tablet (Xarelto) 20 mg PO QPM blood thinner 06/07/23 [History Last Taken 06/18/23 22:00] iron 150 mg-vit C 60 mg-folate 1 [id number] tablet (Niferex (Sumalate-Quatrefolic)) 1 tab PO DAILY #60 tabs 06/10/23 [Rx Last Taken 06/18/23] oxycodone-acetaminophen 5 mg-325 mg tablet 1 tab PO BID PRN pain 06/19/23 [History Last Taken 06/19/23] Allergy/AdvReac Type Severity Reaction Status Date / Time verapamil Allergy Rash Verified 06/19/23 11:58 Surgical History Hx of cardiac catheterization Social History Smoking Status: Former smoker substance use type: does not use ROS Review of Systems ROS Unobtainable: Denies due to encephalopathy, due to endotracheal tube, due to mental condition, due to mental status or other Constitutional Constitutional: Reports fatigue, malaise and weakness Eyes Eyes: Denies blurry vision, change in eye color, change in vision, discharge from eye(s), double vision, erythema, eye pain, loss of vision or other ENT HEENT: Denies abnormal hearing, dysphagia, ear pain, epistaxis, headache(s), hearing loss, nasal congestion, nasal discharge, post nasal drip, sinus pressure, sore throat or other Cardiovascular Cardiovascular: Reports claudication and edema Respiratory/Chest Respiratory/Chest: Denies cough, dyspnea, excessive phlegm production, hemoptysis, productive cough, shortness of breath at rest, shortness of breath with exertion, wheezing or other Gastrointestinal Gastrointestinal: Reports melena Musculoskeletal Musculoskeletal: Reports arthralgias and back pain Physical Exam Const alert, oriented x3, no apparent distress and average body habitus General Appearance: cooperative, well kempt and well developed Orientation / Consciousness: awake, oriented to person, oriented to place and oriented to time HEENT normocephalic, head/scalp atraumatic and moist oral mucous membranes Eyes PERRL, EOMs intact bilaterally and conjunctivae normal Neck no lymphadenopathy, supple, no JVD, thyroid normal and no carotid bruits General: trachea midline Lymph Lymphatic: no lymphadenopathy noted and no lymphedema noted Resp normal respiratory effort, normal air movement, no retractions, no use of accessory muscles and clear to auscultation bilaterally Auscultation: Negative for rales, rhonchi or wheezes Cardio regular rate, regular rhythm, S1 normal heart sound, S2 normal heart sound, no murmurs, no rub, no gallops and no clicks Cardio Narrative: Systolic ejection murmur GI normal to inspection, nondistended, normoactive bowel sounds, soft to palpation, non-tender and non-distended GI Narrative: Has colostomy bag which contains dark stools. Extremity Extremity Narrative: Has 2+ edema of the right foot. Has a well-healed incision on the inner aspect of the right thigh which is from peripheral bypass. Has mild purulent discharge from incision site Skin no rashes or lesions noted Skin Narrative: As under extremities. General Skin Exam: no breakdown Neuro oriented x3, CN's II-XII intact bilaterally, no focal motor deficits, no sensory deficits noted and deep tendon reflexes 2+ bilaterally Sensorium / Orientation: awake and alert Speech: speech normal Motor Exam: strength 5/5 throughout and general weakness Psych thought process normal, cooperative and affect normal Appearance: appropriate Lab / Micro Data 06/22/23 06:25 06/22/23 06:25 Labs: Laboratory Results - last 24 hr 06/19/23 12:35: Diff Path Review Reviewed 06/22/23 06:25: WBC 11.0, RBC 2.82 L, Hgb 7.8 L, Hct 25.0 L, MCV 88.7, MCH 27.7, MCHC 31.2 L, RDW Std Deviation 53.1 H, RDW Coeff of Eze 16.4 H, Plt Count 583 H, MPV 9.1, Immature Gran % (Auto) 0.400, Neut % (Auto) 72.4 H, Lymph % (Auto) 17.5 L, [place] % (Auto) 5.8, Eos % (Auto) 3.2, Baso % (Auto) 0.7, Absolute Neuts (auto) 7.9 H, Absolute Lymphs (auto) 1.92, Nucleated RBC % 0, PT 14.8, INR 1.2, APTT 44.1 H, Sodium 140, Potassium 3.7, Chloride 109 H, Carbon Dioxide 25.0, Anion Gap 6, BUN 10, Creatinine 0.98, Estim Creat Clear Calc 89.46, Est GFR (MDRD) Af Amer 100, Est GFR (MDRD) Non-Af 83, BUN/Creatinine Ratio 10.2, Glucose 111 H, Calcium 8.9 Assessment & Plan Assessment/Plan (1) Acute gastrointestinal bleeding: PLAN: Plan 1. Acute gastrointestinal bleeding-etiology unclear at this point, patient will remain on Protonix, he will undergo endoscopy. #2 acute blood loss anemia requiring blood transfusion-patient's hemoglobin will be monitored #3 status post femoral-popliteal bypass x 2 #4 chronic right leg edema-no evidence of VTE at this time #5 chronic depression-patient remains on Prozac #6 hyperlipidemia-patient is on atorvastatin #7 essential hypertension-patient will remain on his losartan, patient takes. Nifedipine for Raynaud's syndrome Total clinical time spent by myself addressing the patient's medical issues, reviewing all of his data, and collaborating with the patient's care team: 35 minutes
--- NOTE | 2023-06-21 13:46 | PN_ITS ---
Subjective Subjective Patient seen and examined. He complained of pain and swelling in his right lower extremity. He did have a duplex of the right lower extremity yesterday which was negative for any evidence of DVT. He is still having melena stools and is awaiting EGD. Hemoglobin today 7.5. Objective Data Objective Data Vital Signs: Vital Signs Temp Pulse Resp BP Pulse Ox O2 Del Method 97.9 F 79 16 114/53 L 97 Room Air 06/21/23 09:02 06/21/23 09:02 06/21/23 09:02 06/21/23 09:02 06/21/23 09:02 06/21/23 09:49 Oxygen Delivery Method Room Air Weight: 198 lb 10.184 oz Body Mass Index (BMI) 26.2 Intake & Output: Intake and Output for Last 24 Hours 06/19/23 06/20/23 06/21/23 23:59 23:59 23:59 Intake Total 100.75 / 101.75 221 / 221 110 / 110 Balance 100.75 / 101.75 221 / 221 110 / 110 Lab / Micro Data 06/21/23 05:00 06/21/23 05:00 Labs: Laboratory Results - last 24 hr 06/20/23 17:18: Hgb 7.8 L, Hct 26.0 L 06/21/23 05:00: WBC 10.6, RBC 2.83 L, Hgb 7.5 L, Hct 25.0 L, MCV 88.3, MCH 26.5 L, MCHC 30.0 L, RDW Std Deviation 52.1 H, RDW Coeff of Eze 16.3 H, Plt Count 557 H, MPV 9.3, Immature Gran % (Auto) 0.400, Neut % (Auto) 65.0, Lymph % (Auto) 24.3, [place] % (Auto) 5.8, Eos % (Auto) 3.6, Baso % (Auto) 0.9, Absolute Neuts (auto) 6.9, Absolute Lymphs (auto) 2.58, Nucleated RBC % 0, APTT 40.1 H, Sodium 139, Potassium 3.6, Chloride 109 H, Carbon Dioxide 25.0, Anion Gap 5, BUN 13, Creatinine 1.01, Estim Creat Clear Calc 86.80, Est GFR (MDRD) Af Amer 96, Est GF R (MDRD) Non-Af 80, BUN/Creatinine Ratio 12.9, Glucose 91, Calcium 8.7 Micro: Microbiology 06/19/23 12:42 Stool Stool Occult Blood (VENKATA) - Final Occult Blood Positive Radiography Diagnostic Testing: Radiology Impression Venous Doppler Study 06/20/23 10:06 Interpretation Summary Deep veins of the right lower extremity are patent and compressible segmentally. There is no evidence of right lower extremity deep vein thrombosis. The right great saphenous vein appears patent and compressible segmentally. Ordering Physician: Milton Bergeron Performed By: Seb Mejias RVT Physical Exam Const alert, oriented x3 and no apparent distress General Appearance: cooperative and well developed HEENT normocephalic, head/scalp atraumatic and moist oral mucous membranes Eyes PERRL and EOMs intact bilaterally Neck no lymphadenopathy and supple Lymph Lymphatic: no lymphadenopathy noted and no lymphedema noted Resp normal respiratory effort, normal air movement and clear to auscultation bilaterally Cardio regular rate, regular rhythm, S1 normal heart sound, S2 normal heart sound and no murmurs GI normal to inspection, nondistended, normoactive bowel sounds, soft to palpation and non-tender GI Narrative: Has colostomy bag which contains dark stools. Extremity Extremity Narrative: Has 2+ edema of the right foot. Has a well-healed incision on the inner aspect of the right thigh which is from peripheral bypass. Has mild purulent discharge from incision site Skin Skin Narrative: As under extremities. Neuro CN's II-XII intact bilaterally, no focal motor deficits, no sensory deficits no helene and deep tendon reflexes 2+ bilaterally Motor Exam: strength 5/5 throughout and general weakness Psych thought process normal and cooperative Appearance: appropriate Assessment & Plan Assessment/Plan (1) Symptomatic anemia: PLAN: Plan #Acute on hronic anemia due to acute GI bleed * Still having melena stools. Hemoglobin today is 7.5. * On IV pantoprazole. For EGD tomorrow. * Gastroenterology on board. * Of note he is also on iron which could be giving him the black in stools. * #Peripheral artery disease s/p femoropopliteal bypass in the right lower extremity x 2 * Patient complaining of erythema and mild purulent discharge over the incision sites. Right foot has 1+ pedal edema. * Apply Bactroban cream. Duplex of the lower extremity was negative for any evidence of DVT. * on aspirin * #Depression: On Prozac #Hyperlipidemia: On statin #Benign essential hypertension: On losartan. #Raynaud's disease: Monitored DVT prophylaxis: SCDs. Charges/Coding Visit Charges Inpatient E&M: 00414 Subs Hosp L2
--- NOTE | 2023-06-21 15:10 | CASEMGMT ---
SHIRLEY UMANA chart review: Patient was admitted 06/07-06/10/23 for GI bleed. See assessment from 06/08/23. Patient was discharged to home with and follow-up plans in place. Patient returned to [facility] ED 06/19/23 for GI Bleed. SHIRLEY UMANA in to discuss needs at discharge and readmission. Patient states he attended follow-up appt with PCP. Patient has GI follow-up in October. Patient states he was taking all his medications as prescribed. Patient denies needs or help at discharge. Plans to follow-up as appropriate. Patient to discharge home with family support and follow-up plans in place.
[2023-06-21 15:53] VITALS: BP 139/60; PULSE 70; RESP 16; TEMP 36.7; O2SAT 99
--- NOTE | 2023-06-21 17:15 | CHAPLAIN ---
Type of Pastoral Visit _x__ Initial Visit ___ Follow-up Visit ___ On-call Visit ___ General Patient Visit ___ Spiritual Assessment ___ Family Conference ___ Bereavement ___ Rapid Response ___ Code Blue ___ Other (describe below) Pastoral Care Referral From _x__ Patient ___ Family ___ Nurse ___ Physician ___ Assistant Service Manager ___ Unemployment Insurance Hearing Officer ___ Other (describe below) Sacrament/Intervention _x__ Active listening ___ Anointing ___ Rastafari ___ Bereavement ___ Communion ___ [place] exploration ___ ___ Life review _x__ Prayer ___ Reconciliation ___ Sacrament of Sick ___ Supportive presence ___ Wedding ___ Other (describe below) Pastoral Comments patient describes his situation, some frustration over length of time for answers and improvement, and how he just pushes through it all; pt denied any specific needs but was welcoming of a prayer for healing;
[2023-06-21 21:00] VITALS: BP 128/63; PULSE 72; RESP 16; TEMP 36.6; O2SAT 98
[2023-06-21] MEDS: 0.9% Saline Lock 10 ML Syringe IV (21:05)
[2023-06-21] MEDS: Mupirocin Ointment 22gm Tube 1 APPLIC TOPICAL (21:06)
[2023-06-21] MEDS: Atorvastatin Calcium 20 MG Tablet PO (21:07)
[2023-06-21] MEDS: Amitriptyline 25 MG Tablet 50 MG PO (21:07)
[2023-06-21 22:45] VITALS: BP 143/80; PULSE 83; RESP 18; TEMP 36.4; O2SAT 100
[2023-06-22] VITALS (11 sets, daily range): BP systolic 97–153; BP diastolic 62–73; PULSE 70–88; RESP 14–18; TEMP 36.1–36.6; O2SAT 94–99
[2023-06-22] MEDS: diazePAM 2 MG Tablet PO (01:12)
--- NOTE | 2023-06-22 05:55 | EKG12_ITS ---
Test Reason : AM EKG Blood Pressure : / mmHG Vent. Rate : 083 BPM Atrial Rate : 083 BPM P-R Int : 160 ms QRS Dur : 086 ms QT Int : 390 ms P-R-T Axes : 039 033 053 degrees QTc Int : 458 ms Normal sinus rhythm Normal ECG When compared with ECG of 19-JUN-2023 12:26, No significant change was found Confirmed by MARY ALICE CARMONA, EKATERINA ([id number]), news editor KERVIN OLIVAS ([id number]) on 06/22/2023 9:46:56 AM Referred By: LAZARO Confirmed By:EKATERINA WHEAT MD
[2023-06-22] MEDS: cycloBENZAPRine HCl 10 MG Tablet PO ×2 (06:50→13:06)
[2023-06-22] MEDS: Oxycodone/Apap 5/325 Tablet PO ×3 (06:51→21:57)
[2023-06-22 07:13] LABS: Absolute Lymphocyte Count 1.92 X10^3/uL (0.83-4.51); Absolute Neutrophil Count 7.9 X10^3/uL (2.0-7.7); Basophil# 0.08 X10^3/uL; Basophil% 0.7 % (0-1); Eosinophil# 0.35 X10^3/uL; Eosinophils% 3.2 % (0-5); Hemoglobin 7.8 g/dL (13.0-16.5); Lymphocyte # 1.92 X10^3/ul (0.83-4.51); Lymphocyte % 17.5 % (19-41); Mean Corp Hgb Conc 31.2 g/dL (32-36); Mean Corpuscular Hgb 27.7 pg (27.0-32.0); Mean Corpuscular Volume 88.7 fL (80-94); Mean Platelet Vol. 9.1 fl (6.2-12.0); Monocyte# 0.64 X10^3/uL; Monocyte% 5.8 % (0-10); NRBC Flagged by Analyzer 0 % (0-5); Neutrophil # 7.94 X10^3/uL (2.7-7.7); Neutrophil % 72.4 % (47-70); Platelet Count 583 K/mm3 (150-450); RBC Distribution Width CV 16.4 % (11.6-14.6); RBC Distribution Width SD 53.1 fl (35.1-43.9); Red Blood Count 2.82 M/mm3 (4.6-6.2)
[2023-06-22 07:17] LABS: International Normalized Ratio 1.2; Prothrombin Time (Protime)PT. 14.8 SECONDS (11.7-14.9)
[2023-06-22 07:18] LABS: Partial Thromboplast Time 44.1 Seconds (24.1-36.2)
[2023-06-22 07:29] LABS: Anion Gap 6 (5-15); BUN 10 mg/dL (7-18); BUN/Creat Ratio 10.2 RATIO (10-20); Calcium,Total 8.9 mg/dL (8.5-10.1); Chloride 109 mmol/L (98-107); Creatinine, Serum 0.98 mg/dL (0.70-1.30); EST Glomerular Filtration Rate 83 mL/min (>60); Est Glom Filt Rate - Afr Amer 100 mL/min (>60); Estimated Creatinine Clearance 89.46 ml/min; Glucose 111 mg/dL (74-106); Potassium 3.7 mmol/L (3.5-5.1); Sodium Level 140 mmol/L (136-145)
[2023-06-22] MEDS: 0.9% Saline Lock 10 ML Syringe IV (09:38)
[2023-06-22] MEDS: Pantoprazole Sodium 40 MG in 0.9% Normal Saline (100mL MB+) 100 ML 330 MG IV ×2 (09:38→22:00)
--- NOTE | 2023-06-22 10:03 | PCM.PROGNOTE ---
Subjective Subjective Patient seen and examined. He had no active complaints today. He is due for EGD today. Review of systems is otherwise negative. Objective Data Objective Data Vital Signs: Vital Signs Temp Pulse Resp BP Pulse Ox O2 Del Method 97.9 F 77 14 142/72 H 97 Room Air 06/22/23 09:36 06/22/23 09:36 06/22/23 09:36 06/22/23 09:36 06/22/23 09:36 06/22/23 09:36 Oxygen Delivery Method Room Air Weight: 198 lb 10.184 oz Body Mass Index (BMI) 26.2 Intake & Output: Intake and Output for Last 24 Hours 06/20/23 06/21/23 06/22/23 23:59 23:59 23:59 Intake Total 221 / 221 1660 / 1660 0 / 0 Balance 221 / 221 1660 / 1660 0 / 0 Lab / Micro Data 06/22/23 06:25 06/22/23 06:25 Labs: Laboratory Results - last 24 hr 06/22/23 06:25: WBC 11.0, RBC 2.82 L, Hgb 7.8 L, Hct 25.0 L, MCV 88.7, MCH 27.7, MCHC 31.2 L, RDW Std Deviation 53.1 H, RDW Coeff of Eze 16.4 H, Plt Count 583 H, MPV 9.1, Immature Gran % (Auto) 0.400, Neut % (Auto) 72.4 H, Lymph % (Auto) 17.5 L, [place] % (Auto) 5.8, Eos % (Auto) 3.2, Baso % (Auto) 0.7, Absolute Neuts (auto) 7.9 H, Absolute Lymphs (auto) 1.92, Nucleated RBC % 0, PT 14.8, INR 1.2, APTT 44.1 H, Sodium 140, Potassium 3.7, Chloride 109 H, Carbon Dioxide 25.0, Anion Gap 6, BUN 10, Creatinine 0.98, Estim Creat Clear Calc 89.46, Est GFR (MDRD) Af Amer 100, Est GFR (MDRD) Non-Af 83, BUN/Creatinine Ratio 10.2, Glucose 111 H, Calcium 8.9 Micro: Microbiology 06/19/23 12:42 Stool Stool Occult Blood (VENKATA) - Final Occult Blood Positive Radiography Diagnostic Testing: Radiology Impression Venous Doppler Study 06/20/23 10:06 Interpretation Summary Deep veins of the right lower extremity are patent and compressible segmentally. There is no evidence of right lower extremity deep vein thrombosis. The right great saphenous vein appears patent and compressible segmentally. Ordering Physician: Milton Bergeron Performed By: Seb Mejias RVT Physical Exam Const alert, oriented x3, no apparent distress and average body habitus General Appearance: cooperative, well kempt and well developed Orientation / Consciousness: awake, oriented to person, oriented to place and oriented to time HEENT normocephalic, head/scalp atraumatic and moist oral mucous membranes Eyes PERRL, EOMs intact bilaterally and conjunctivae normal Neck no lymphadenopathy, supple, no JVD, thyroid normal and no carotid bruits General: trachea midline Lymph Lymphatic: no lymphadenopathy noted and no lymphedema noted Resp normal respiratory effort, normal air movement, no retractions, no use of accessory muscles and clear to auscultation bilaterally Auscultation: Negative for rales, rhonchi or wheezes Cardio regular rate, regular rhythm, S1 normal heart sound, S2 normal heart sound, no murmurs, no rub, no gallops and no clicks Cardio Narrative: Systolic ejection murmur GI normal to inspection, nondistended, normoactive bowel sounds, soft to palpation, non-tender and non-distended GI Narrative: Has colostomy bag which contains dark stools. Extremity Extremity Narrative: Has 2+ edema of the right foot. Has a well-healed incision on the inner aspect of the right thigh which is from peripheral bypass. Has mild purulent discharge from incision site Skin no rashes or lesions noted Skin Narrative: As under extremities. General Skin Exam: no breakdown Neuro oriented x3, CN's II-XII intact bilaterally, no focal motor deficits, no sensory deficits noted and deep tendon reflexes 2+ bilaterally Sensorium / Orientation: awake and alert Speech: speech normal Motor Exam: strength 5/5 throughout and general weakness Psych thought process normal, cooperative and affect normal Appearance: appropriate Assessment & Plan Assessment/Plan (1) Symptomatic anemia: PLAN: Plan #Acute on hronic anemia due to acute GI bleed Still having melena stools. Hemoglobin today is 7.8. On IV pantoprazole. For EGD today. Gastroenterology on board. Of note he is also on iron which could be giving him the blackened stools. #Peripheral artery disease s/p femoropopliteal bypass in the right lower extremity x 2 Patient complaining of erythema and mild purulent discharge over the incision sites. Right foot has 1+ pedal edema. Apply Bactroban cream. Duplex of the lower extremity was negative for any evidence of DVT. on aspirin #Depression: On Prozac #Hyperlipidemia: On statin #Benign essential hypertension: On losartan. #Raynaud's disease: Monitored DVT prophylaxis: SCDs. Charges/Coding Visit Charges Inpatient E&M: 65254 Subs Hosp L2
[2023-06-22 10:22] LABS: Pathologist Review Reviewed
[2023-06-22] MEDS: 0.9% Normal Saline (1000mL) 1,000 ML 15 ML IV (10:32)
--- NOTE | 2023-06-22 11:56 | OP.CCLET_ITS ---
06/22/2023 Kenroy Larry Re : Upper GI endoscopy procedure for Choco Maldonado Dear Laron This procedure was performed on Thursday, June 22, 2023. My impressions and recommendations are as follows: Impressions : - Normal esophagus. - Normal stomach. - Normal second portion of the duodenum. - No specimens collected. Recommendations : - [facility]. - Advance diet as tolerated. - Continue present medications. My findings are described in the full procedure note, which is enclosed. If I can be of further assistance, please feel free to contact me at . Sincerely, John Reyes, 06/22/2023 11:56:18 AM This report has been signed electronically.
--- NOTE | 2023-06-22 11:56 | OP.EGD_ITS ---
Patient Name: Choco Maldonado Procedure Date: 06/22/2023 11:30 AM Date of : 1960 Age: 62 Procedure: Upper GI endoscopy Indications: Hematochezia Providers: John Reyes DO Medicines: Monitored Anesthesia Care Patient Profile: This is a 62 year old male. Refer to note in patient chart for documentation of history and physical. Patient has symptoms of acute dyspepsia. Complications: No immediate complications. Estimated blood loss: None. Procedure: Pre-Anesthesia Assessment: - Prior to the procedure, a History and Physical was performed, and patient medications and allergies were reviewed. The patient is competent. The risks and benefits of the procedure and the sedation options and risks were discussed with the patient. All questions were answered and informed consent was obtained. Patient identification and proposed procedure were verified by the physician in the pre-procedure area. Mental Status Examination: alert and oriented. Airway Examination: normal oropharyngeal airway and neck mobility. Respiratory Examination: clear to auscultation. CV Examination: normal. Prophylactic Antibiotics: The patient does not require prophylactic antibiotics. Prior Anticoagulants: The patient has taken no anticoagulant or antiplatelet agents. ASA Grade Assessment: III - A patient with severe systemic disease. After reviewing the risks and benefits, the patient was deemed in satisfactory condition to undergo the procedure. The anesthesia plan was to use monitored anesthesia care (MAC). Immediately prior to administration of medications, the patient was re-assessed for adequacy to receive sedatives. The heart rate, respiratory rate, oxygen saturations, blood pressure, adequacy of pulmonary ventilation, and response to care were monitored throughout the procedure. The physical status of the patient was re-assessed after the procedure. After obtaining informed consent, the endoscope was passed under direct vision. Throughout the procedure, the patient's blood pressure, pulse, and oxygen saturations were monitored continuously. The Endoscope was introduced through the mouth, and advanced to the second part of duodenum. The upper GI endoscopy was accomplished without difficulty. The patient tolerated the procedure well. Scope In: 11:44:55 AM Scope Out: 11:46:18 AM Total Procedure Duration Time 0 hours 1 minute 23 seconds Findings: The examined esophagus was normal. The entire examined stomach was normal. The second portion of the duodenum was normal. Impression: - Normal esophagus. - Normal stomach. - Normal second portion of the duodenum. - No specimens collected. Recommendation: - [facility]. - Advance diet as tolerated. - Continue present medications. Procedure Code(s): --- Professional --- 92194, Esophagogastroduodenoscopy, flexible, transoral; diagnostic, including collection of specimen(s) by brushing or washing, when performed (separate procedure) CPT copyright 2021 [employer]. All rights reserved. The codes documented in this report are preliminary and upon restaurant kitchen and service manager review may be revised to meet current compliance requirements. John Reyes DO 06/22/2023 11:56:18 AM This report has been signed electronically. Number of Addenda: 0 Note Initiated On: 06/22/2023 11:30 AM
[2023-06-22] MEDS: Gabapentin 300 MG Capsule PO ×2 (13:06→21:57)
[2023-06-22] MEDS: Amitriptyline 25 MG Tablet 50 MG PO (21:59)
[2023-06-22] MEDS: Mupirocin Ointment 22gm Tube 1 APPLIC TOPICAL (21:59)
[2023-06-22] MEDS: Atorvastatin Calcium 20 MG Tablet PO (21:59)
[2023-06-23] VITALS (8 sets, daily range): BP systolic 115–148; BP diastolic 60–79; PULSE 68–84; RESP 14–18; TEMP 36.2–36.5; O2SAT 94–100
[2023-06-23] MEDS: cycloBENZAPRine HCl 10 MG Tablet PO ×3 (02:28→20:41)
[2023-06-23 06:45] LABS: Absolute Lymphocyte Count 1.94 X10^3/uL (0.83-4.51); Absolute Neutrophil Count 6.6 X10^3/uL (2.0-7.7); Basophil# 0.09 X10^3/uL; Basophil% 0.9 % (0-1); Eosinophil# 0.36 X10^3/uL; Eosinophils% 3.8 % (0-5); Hematocrit 25.6 % (40-54); Hemoglobin 7.7 g/dL (13.0-16.5); Lymphocyte # 1.94 X10^3/ul (0.83-4.51); Lymphocyte % 20.3 % (19-41); Mean Corp Hgb Conc 30.1 g/dL (32-36); Mean Corpuscular Hgb 26.8 pg (27.0-32.0); Mean Corpuscular Volume 89.2 fL (80-94); Monocyte# 0.56 X10^3/uL; Monocyte% 5.8 % (0-10); NRBC Flagged by Analyzer 0 % (0-5); Neutrophil # 6.59 X10^3/uL (2.7-7.7); Neutrophil % 68.8 % (47-70); Platelet Count 596 K/mm3 (150-450); RBC Distribution Width CV 16.2 % (11.6-14.6); RBC Distribution Width SD 52.9 fl (35.1-43.9); Red Blood Count 2.87 M/mm3 (4.6-6.2); White Blood Count 9.6 K/mm3 (4.4-11.0)
[2023-06-23 07:03] LABS: Anion Gap 5 (5-15); BUN 10 mg/dL (7-18); BUN/Creat Ratio 9.4 RATIO (10-20); Chloride 106 mmol/L (98-107); Creatinine, Serum 1.06 mg/dL (0.70-1.30); EST Glomerular Filtration Rate 75 mL/min (>60); Est Glom Filt Rate - Afr Amer 91 mL/min (>60); Estimated Creatinine Clearance 82.71 ml/min; Glucose 122 mg/dL (74-106); Potassium 3.9 mmol/L (3.5-5.1); Sodium Level 138 mmol/L (136-145)
[2023-06-23] MEDS: Pantoprazole Sodium 40 MG in 0.9% Normal Saline (100mL MB+) 100 ML 330 MG IV ×2 (09:41→20:42)
[2023-06-23] MEDS: Gabapentin 300 MG Capsule PO ×2 (09:41→20:41)
[2023-06-23] MEDS: Losartan Potassium 25 MG Tablet PO (09:42)
[2023-06-23] MEDS: Iron Polysaccharide Complex 150 MG CAPSULE PO (09:42)
[2023-06-23] MEDS: Aspirin E.C. 81 MG Tablet PO (09:42)
[2023-06-23] MEDS: FLUoxetine 20 MG Capsule PO (09:42)
--- NOTE | 2023-06-23 11:10 | NURSING ---
of patient came to the nurses station stating that he had fallen back on the bed in a seated position and his eyes rolled into the back of his head and he appeared asleep. When I arrived to the room the patient's eyes were closed, but opened to the sound of my voice, was able to answer orientation questions appropriately. Vitals temp. 97.2, HR 81, SPO2 97%, BP 128/63, Resp. 18, finger stick bs 97. Physician notified of events.
[2023-06-23 11:55] LABS: Bedside Glucose 97 mg/dL (74-106)
[2023-06-23] MEDS: Doxycycline 100 MG CAPSULE PO ×2 (12:57→20:42)
--- NOTE | 2023-06-23 12:57 | PN_ITS ---
Subjective Subjective Patient jono and examined. HE complained of swelling in his right foot which is chronic. He denied any dizziness, lightheadedness, nausea, vomiting or any other symptoms. Review of systems is otherwise negative. Objective Data Objective Data Vital Signs: Vital Signs Temp Pulse Resp BP Pulse Ox O2 Del Method 97.2 F L 81 18 127/66 H 97 Room Air 06/23/23 09:00 06/23/23 11:53 06/23/23 09:00 06/23/23 11:53 06/23/23 09:00 06/23/23 09:00 Oxygen Delivery Method Room Air Weight: 198 lb 10.184 oz Body Mass Index (BMI) 26.2 Intake & Output: Intake and Output for Last 24 Hours 06/21/23 06/22/23 06/23/23 23:59 23:59 23:59 Intake Total 1660 / 1660 374.5 / 374.5 110 / 110 Balance 1660 / 1660 374.5 / 374.5 110 / 110 Lab / Micro Data 06/23/23 06:20 06/23/23 06:20 Labs: Laboratory Results - last 24 hr 06/23/23 06:20: WBC 9.6, RBC 2.87 L, Hgb 7.7 L, Hct 25.6 L, MCV 89.2, MCH 26.8 L , MCHC 30.1 L, RDW Std Deviation 52.9 H, RDW Coeff of Eze 16.2 H, Plt Count 596 H, MPV 9.0, Immature Gran % (Auto) 0.400, Neut % (Auto) 68.8, Lymph % (Auto) 20.3, [place] % (Auto) 5.8, Eos % (Auto) 3.8, Baso % (Auto) 0.9, Absolute Neuts (auto) 6.6, Absolute Lymphs (auto) 1.94, Nucleated RBC % 0, Sodium 138, Potassium 3.9, Chloride 106, Carbon Dioxide 27.0, Anion Gap 5, BUN 10, Creatinine 1.06, Estim Creat Clear Calc 82.71, Est GFR (MDRD) Af Amer 91, Est GFR (MDRD) Non-Af 75, BUN/Creatinine Ratio 9.4 L, Glucose 122 H, Calcium 9.0 06/23/23 11:15: POC Glucose 97 Micro: Microbiology 06/19/23 12:42 Stool Stool Occult Blood (VENKATA) - Final Occult Blood Positive Physical Exam Const alert, oriented x3, no apparent distress and average body habitus General Appearance: cooperative, well kempt and well developed Orientation / Consciousness: awake, oriented to person, oriented to place and oriented to time HEENT normocephalic, head/scalp atraumatic and moist oral mucous membranes Eyes PERRL, EOMs intact bilaterally and conjunctivae normal Neck no lymphadenopathy, supple, no JVD, thyroid normal and no carotid bruits General: trachea midline Lymph Lymphatic: no lymphadenopathy noted and no lymphedema noted Resp normal respiratory effort, normal air movement, no retractions, no use of accessory muscles and clear to auscultation bilaterally Auscultation: Negative for rales, rhonchi or wheezes Cardio regular rate, regular rhythm, S1 normal heart sound, S2 normal heart sound, no murmurs, no rub, no gallops and no clicks Cardio Narrative: Systolic ejection murmur GI normal to inspection, nondistended, normoactive bowel sounds, soft to palpation, non-tender and non-distended GI Narrative: Has colostomy bag which contains dark stools. Extremity Extremity Narrative: Has 2+ edema of the right foot. Has a well-healed incision on the inner aspect of the right thigh which is from peripheral bypass. Has mild purulent discharge from incision site Skin no rashes or lesions noted Skin Narrative: As under extremities. General Skin Exam: no breakdown Neuro oriented x3, CN's II-XII intact bilaterally, no focal motor deficits, no sensory deficits noted and deep tendon reflexes 2+ bilaterally Sensorium / Orientation: awake and alert Speech: speech normal Motor Exam: strength 5/5 throughout and general weakness Psych thought process normal, cooperative and affect normal Appearance: appropriate Assessment & Plan Assessment/Plan (1) Symptomatic anemia: PLAN: Plan #Acute on hronic anemia due to acute GI bleed * Still having melena stools. Hemoglobin today is 7.7. * On IV pantoprazole. Had EGD yesterday which was negative for any acute patholgy. * Gastroenterology on board. * Of note he is also on iron which could be giving him the blackened stools. * #Peripheral artery disease s/p femoropopliteal bypass in the right lower extremity x 2 * Patient complaining of erythema and mild purulent discharge over the incision sites. Right foot has 1+ pedal edema. * Apply Bactroban cream. Duplex of the lower extremity was negative for any evidence of DVT. * on aspirin * start on PO doxycycline 100mg bid x 5 days. * #orthostatic hypotension * plan was for discharge today, but he felt dizzy and lightheaded, so orthostatics were checked which were positive * plan is to hydrate with IVF and recheck * #Depression: On Prozac #Hyperlipidemia: On statin #Benign essential hypertension: On losartan. #Raynaud's disease: stable DVT prophylaxis: SCDs. Disposition: for likely dc tomorrow. Charges/Coding Visit Charges Inpatient E&M: 27966 Subs Hosp L2
[2023-06-23] MEDS: Oxycodone/Apap 5/325 Tablet PO (12:59)
[2023-06-23] MEDS: 0.9% Normal Saline (1000mL) 1,000 ML 125 ML IV (13:18)
[2023-06-23] MEDS: Mupirocin Ointment 22gm Tube 1 APPLIC TOPICAL ×2 (13:18→20:40)
--- NOTE | 2023-06-23 16:59 | EX.PCM.PN.GI ---
Subjective Subjective Patient is doing well. He underwent an upper endoscopy yesterday. There were no signs or symptoms of acute or chronic GI bleeding seen in his esophagus stomach or proximal small bowel. Objective Data Objective Data Vital Signs: Vital Signs Temp Pulse Resp BP Pulse Ox O2 Del Method 97.2 F L 81 16 127/66 H 97 Room Air 06/23/23 11:45 06/23/23 11:53 06/23/23 11:45 06/23/23 11:53 06/23/23 11:45 06/23/23 15:02 Oxygen Delivery Method Room Air Weight: 198 lb 10.184 oz Body Mass Index (BMI) 26.2 Intake & Output: Intake and Output for Last 24 Hours 06/21/23 06/22/23 06/23/23 23:59 23:59 23:59 Intake Total 1660 / 1660 374.5 / 374.5 230 / 230 Balance 1660 / 1660 374.5 / 374.5 230 / 230 Lab / Micro Data 06/23/23 06:20 06/23/23 06:20 Labs: Laboratory Results - last 24 hr 06/23/23 06:20: WBC 9.6, RBC 2.87 L, Hgb 7.7 L, Hct 25.6 L, MCV 89.2, MCH 26.8 L, MCHC 30.1 L, RDW Std Deviation 52.9 H, RDW Coeff of Eze 16.2 H, Plt Count 596 H, MPV 9.0, Immature Gran % (Auto) 0.400, Neut % (Auto) 68.8, Lymph % (Auto) 20.3, Scott % (Auto) 5.8, Eos % (Auto) 3.8, Baso % (Auto) 0.9, Absolute Neuts (auto) 6.6, Absolute Lymphs (auto) 1.94, Nucleated RBC % 0, Sodium 138, Potassium 3.9, Chloride 106, Carbon Dioxide 27.0, Anion Gap 5, BUN 10, Creatinine 1.06, Estim Creat Clear Calc 82.71, Est GFR (MDRD) Af Amer 91, Est GFR (MDRD) Non-Af 75, BUN/Creatinine Ratio 9.4 L, Glucose 122 H, Calcium 9.0 06/23/23 11:15: POC Glucose 97 Micro: Microbiology 06/19/23 12:42 Stool Stool Occult Blood (VENKATA) - Final Occult Blood Positive Physical Exam Const alert, oriented x3, no apparent distress and average body habitus General Appearance: cooperative, well kempt and well developed Orientation / Consciousness: awake, oriented to person, oriented to place and oriented to time HEENT normocephalic, head/scalp atraumatic and moist oral mucous membranes Eyes PERRL, EOMs intact bilaterally and conjunctivae normal Neck no lymphadenopathy, supple, no JVD, thyroid normal and no carotid bruits General: trachea midline Lymph Lymphatic: no lymphadenopathy noted and no lymphedema noted Resp normal respiratory effort, normal air movement, no retractions, no use of accessory muscles and clear to auscultation bilaterally Auscultation: Negative for rales, rhonchi or wheezes Cardio regular rate, regular rhythm, S1 normal heart sound, S2 normal heart sound, no murmurs, no rub, no gallops and no clicks Cardio Narrative: Systolic ejection murmur GI normal to inspection, nondistended, normoactive bowel sounds, soft to palpation, non-tender and non-distended GI Narrative: Has colostomy bag which contains dark stools. Extremity Extremity Narrative: Has 2+ edema of the right foot. Has a well-healed incision on the inner aspect of the right thigh which is from peripheral bypass. Has mild purulent discharge from incision site Skin no rashes or lesions noted Skin Narrative: As under extremities. General Skin Exam: no breakdown Neuro oriented x3, CN's II-XII intact bilaterally, no focal motor deficits, no sensory deficits noted and deep tendon reflexes 2+ bilaterally Sensorium / Orientation: awake and alert Speech: speech normal Motor Exam: strength 5/5 throughout and general weakness Psych thought process normal, cooperative and affect normal Appearance: appropriate Assessment & Plan Assessment/Plan (1) GI bleed: PLAN: Plan Patient is a 62-year-old gentleman with recent vascular surgery on systemic anticoagulation with Xarelto who presented with near syncope while taking a shower and dark stools in his colostomy bag. Presented to the emergency department hemoglobin was found to be 5.4. Admitted to monitored bed for subsequent evaluation Acute GI bleed ? Suspected to secondary to upper GI bleed, hemoglobin on admission was 5.8 and currently it is 7.7. Patient was typed and crossmatched transfused with 2 unit PRBC started on Protonix drip admitted to monitored bed with consultation placed to GI. Patient is on antiplatelet therapy with aspirin as well as systemic anticoagulation with Xarelto but held - Patient underwent EGD on 06/08/2023 findings as below - Normal esophagus. - Small hiatal hernia. - No gross lesions in the third portion of the duodenum. - No specimens collected. Plan is for patient to repeat endoscopic evaluation with colonoscopy. His colonoscopy previously done had a very poor prep. Hemoglobin seems to be stable. ?06/10/2023 Underwent colonoscopy 06/10/2023 findings and recommendations as below Preparation of the colon was poor. - Patent end colostomy with healthy appearing mucosa in the sigmoid colon. - Stool in the descending colon, at the splenic flexure, in the transverse colon, in the ascending colon and in the cecum. - No specimens collected. Recommendations : - Discharge patient to home. - Resume previous diet. - Continue present medications. - Repeat colonoscopy because the bowel preparation was suboptimal. Recommend outpatient capsule endoscopy to complete his workup Charges/Coding Visit Charges Inpatient E&M: 70996 Subs Hosp L3
[2023-06-23] MEDS: Amitriptyline 25 MG Tablet 50 MG PO (20:41)
[2023-06-23] MEDS: Atorvastatin Calcium 20 MG Tablet PO (20:42)
[2023-06-24] VITALS (13 sets, daily range): BP systolic 105–147; BP diastolic 56–84; PULSE 77–87; RESP 12–18; TEMP 36.1–36.9; O2SAT 92–100
[2023-06-24] MEDS: Oxycodone/Apap 5/325 Tablet PO ×2 (03:20→10:24)
[2023-06-24 07:40] LABS: Absolute Lymphocyte Count 2.22 X10^3/uL (0.83-4.51); Absolute Neutrophil Count 6.8 X10^3/uL (2.0-7.7); Basophil# 0.09 X10^3/uL; Basophil% 0.9 % (0-1); Eosinophil# 0.38 X10^3/uL; Eosinophils% 3.7 % (0-5); Hematocrit 23.8 % (40-54); Lymphocyte # 2.22 X10^3/ul (0.83-4.51); Lymphocyte % 21.9 % (19-41); Mean Corp Hgb Conc 29.4 g/dL (32-36); Mean Corpuscular Hgb 26.3 pg (27.0-32.0); Mean Corpuscular Volume 89.5 fL (80-94); Mean Platelet Vol. 9.2 fl (6.2-12.0); Monocyte# 0.62 X10^3/uL; Monocyte% 6.1 % (0-10); NRBC Flagged by Analyzer 0 % (0-5); Platelet Count 564 K/mm3 (150-450); RBC Distribution Width CV 15.9 % (11.6-14.6); RBC Distribution Width SD 52.9 fl (35.1-43.9); Red Blood Count 2.66 M/mm3 (4.6-6.2); White Blood Count 10.2 K/mm3 (4.4-11.0)
--- NOTE | 2023-06-24 08:00 | NURSING ---
Pt presents to the nurses station in plain clothes asking about leaving hospital. Asked pt to go back to room in order for this RN to come and speak privately about the matter and present documents to sign self out. Upon entering the room, pt was on the phone with his , Radha, asking her to pick him up which she was very concerned and angry about, verbalizing that he has been becoming increasingly confused over the past several days. Upon further conversation w/ the pt, it was apparent that he was demonstrating hallucinations, unable to state the correct month or year initially and stated that [facility]. Pt is able to recognize that he is confused at times. Pt reoriented to time, situation, hospital events and current treatment plan. Dr. Soto also present towards end of assessment as well as the pt's . Pt is to undergo colonoscopy prep this morning in hopes of having colonoscopy this afternoon/evening w/ Dr. Reyes. Pt still remains reluctant to proceed with the plan, stating he wants to go home and get rest in his own bed. Pt is back in hospital gown with monitor on and ambulating around the room. Pt's remains present.
[2023-06-24 08:02] LABS: Anion Gap 2 (5-15); BUN 10 mg/dL (7-18); BUN/Creat Ratio 10.3 RATIO (10-20); Calcium,Total 8.7 mg/dL (8.5-10.1); Chloride 111 mmol/L (98-107); Creatinine, Serum 0.97 mg/dL (0.70-1.30); EST Glomerular Filtration Rate 84 mL/min (>60); Est Glom Filt Rate - Afr Amer 101 mL/min (>60); Estimated Creatinine Clearance 90.38 ml/min; Glucose 100 mg/dL (74-106); Potassium 3.7 mmol/L (3.5-5.1); Sodium Level 140 mmol/L (136-145)
[2023-06-24] MEDS: Electrolyte Solution/Peg's 4000 ML PO (08:57)
[2023-06-24 09:18] LABS: Hematocrit 26.1 % (40-54); Hemoglobin 7.7 g/dL (13.0-16.5)
[2023-06-24] MEDS: Pantoprazole Sodium 40 MG in 0.9% Normal Saline (100mL MB+) 100 ML 330 MG IV ×2 (10:16→20:44)
[2023-06-24] MEDS: 0.9% Normal Saline (1000mL) 1,000 ML 15 ML IV ×2 (10:16→15:06)
[2023-06-24] MEDS: Mupirocin Ointment 22gm Tube 1 APPLIC TOPICAL ×2 (10:17→20:39)
--- NOTE | 2023-06-24 12:22 | PN_ITS ---
Subjective Subjective Paient seen and examiend. was by his bedside. He complained of the swelling in his right leg. He is sill having dark stools. His hb this morning was 7; repeat H&H was however 7.7. Per GI, to be given colonoscopy prep for colonoscopy later today. Objective Data Objective Data Vital Signs: Vital Signs Temp Pulse Resp BP Pulse Ox O2 Del Method 96.9 F L 79 16 144/61 H 97 Room Air 06/24/23 08:30 06/24/23 08:30 06/24/23 08:30 06/24/23 08:30 06/24/23 08:30 06/24/23 08:30 Oxygen Delivery Method Room Air Weight: 198 lb 10.184 oz Body Mass Index (BMI) 26.2 Intake & Output: Intake and Output for Last 24 Hours 06/22/23 06/23/23 06/24/23 23:59 23:59 23:59 Intake Total 374.5 / 374.5 1460 / 1460 110 / 110 Balance 374.5 / 374.5 1460 / 1460 110 / 110 Lab / Micro Data 06/24/23 08:56 06/24/23 07:00 Labs: Laboratory Results - last 24 hr 06/24/23 07:00: WBC 10.2, RBC 2.66 L, Hgb 7.0 L, Hct 23.8 L, MCV 89.5, MCH 26.3 L, MCHC 29.4 L, RDW Std Deviation 52.9 H, RDW Coeff of Eze 15.9 H, Plt Count 564 H, MPV 9.2, Immature Gran % (Auto) 0.400, Neut % (Auto) 67.0, Lymph % (Auto) 21.9, [place] % (Auto) 6.1, Eos % (Auto) 3.7, Baso % (Auto) 0.9, Absolute Neuts (auto) 6.8, Absolute Lymphs (auto) 2.22, Nucleated RBC % 0, Sodium 140, Potassium 3.7, Chloride 111 H, Carbon Dioxide 27.0, Anion Gap 2 L, BUN 10, Creatinine 0.97, Estim Creat Clear Calc 90.38, Est GFR (MDRD) Af Amer 101, Est GFR (MDRD) Non-Af 84, BUN/Creatinine Ratio 10.3, Glucose 100, Calcium 8.7 06/24/23 08:56: Hgb 7.7 L, Hct 26.1 L Micro: Microbiology 06/19/23 12:42 Stool Stool Occult Blood (VENKATA) - Final Occult Blood Positive Physical Exam Const alert, oriented x3, no apparent distress and average body habitus General Appearance: cooperative, well kempt and well developed Orientation / Consciousness: awake, oriented to person, oriented to place and oriented to time HEENT normocephalic, head/scalp atraumatic and moist oral mucous membranes Eyes PERRL, EOMs intact bilaterally and conjunctivae normal Neck no lymphadenopathy, supple, no JVD, thyroid normal and no carotid bruits General: trachea midline Lymph Lymphatic: no lymphadenopathy noted and no lymphedema noted Resp normal respiratory effort, normal air movement, no retractions, no use of accessory muscles and clear to auscultation bilaterally Auscultation: Negative for rales, rhonchi or wheezes Cardio regular rate, regular rhythm, S1 normal heart sound, S2 normal heart sound, no murmurs, no rub, no gallops and no clicks GI normal to inspection, nondistended, normoactive bowel sounds, soft to palpation, non-tender and non-distended GI Narrative: Has colostomy bag which contains dark stools. Extremity Extremity Narrative: Has 2+ edema of the right foot. Has a well-healed incision on the inner aspect of the right thigh which is from peripheral bypass. mild discharge has resolved. Skin no rashes or lesions noted Skin Narrative: As under extremities. General Skin Exam: no breakdown Neuro oriented x3, CN's II-XII intact bilaterally, no focal motor deficits, no sensory deficits noted and deep tendon reflexes 2+ bilaterally Sensorium / Orientation: awake and alert Speech: speech normal Motor Exam: strength 5/5 throughout and general weakness Psych thought process normal, cooperative and affect normal Appearance: appropriate Assessment & Plan Assessment/Plan (1) Symptomatic anemia: PLAN: Plan #Acute on hronic anemia due to acute GI bleed * Still having melena stools. Hemoglobin today was initially 7, on repeat was 7.7 * On IV pantoprazole. Had EGD which was negative for any acute pathology. * Gastroenterology on board. * Of note he is also on iron which could be giving him the blackened stools. * for colonoscopy today * #Peripheral artery disease s/p femoropopliteal bypass in the right lower extremity x 2 * P. Right foot has 1+ pedal edema. * Apply Bactroban cream. Duplex of the lower extremity was negative for any evidence of DVT. * on aspirin * on PO doxycycline 100mg bid x 5 days * #orthostatic hypotension * resolved with hydration. * * #Depression: On Prozac #Hyperlipidemia: On statin #Benign essential hypertension: On losartan. #Raynaud's disease: stable DVT prophylaxis: SCDs. Disposition: for likely dc over the next 24-48 hours depending on the results of the colonoscopy Charges/Coding Visit Charges Inpatient E&M: 85837 Subs Hosp L2
[2023-06-24] MEDS: LORazepam 1 MG Tablet 2 MG PO (13:17)
--- NOTE | 2023-06-24 14:30 | COLBX_PTH ---
PATIENT: SALBADOR FARNSWORTH LOC: [facility] U#:[id number] AGE/SX: 62/M ROOM: [facility] RE06/19/[address]: Dr. Pascale Soto MD : 1960 BED: 1 DIS: 06/25/2023 SPEC #: [id number] RECD: 06/25/23 10:10 STATUS: KITTY FUENTESOrtiz #: [id number] [place]: 06/24/23 14:[address]: John Reyes DEPT: SURGICAL PATHOLOGY RECD BY: Marnie Pro ENTERED: 06/25/23 10:10 SP TYPE: COLON BX OTHR DR: MD Dr. Milton Jones DO Dr. Nana Yaa Koram, MD Dr. William Lago, MD Tissues: Ascending colon Procedures: Surgery Specimen Level IV Comments: @ Ordering doctor for SUIV edited from to @ by KIMBERLY at 06/25/23 1415 @ Submitting doctor edited from to @ by RGOOD at 06/25/23 1415 HEADER OPERATION: Colonoscopy through colostomy, polypectomy PRE-OP DIAGNOSIS: GI bleed TISSUE SUBMITTED: Ascending colon polyp MICROSCOPIC DIAGNOSIS Ascending colon polyp, biopsy: Tubular adenoma. AM:isiah 06/28/2023 MICROSCOPIC DESCRIPTION Slides are reviewed. GROSS DESCRIPTION Received in fixative is one container labeled with the patient's name and designated ascending colon polyp. The specimen consists of one irregular fragment of light vazquez soft tissue that measures 0.3 x 0.2 x 0.1 cm. The specimen is totally submitted in one cassette. / SJ:isiah 06/25/2023 TC:5 [facility]: [id number]
--- NOTE | 2023-06-24 14:44 | NURSING ---
to endoscopy per bed
--- NOTE | 2023-06-24 16:19 | OP.CCLET_ITS ---
06/24/2023 Kenroy Larry Re : Colonoscopy procedure for Choco Maldonado Dear Laron This procedure was performed on June. My impressions and recommendations are as follows: Impressions : - Widely patent end colostomy with healthy appearing mucosa in the sigmoid colon. - One 8 mm polyp in the ascending colon, removed with a hot snare. Resected and retrieved. - The examined portion of the ileum was normal. Recommendations : - [facility]. - Resume regular diet. - Continue present medications. - Await pathology results. - Repeat colonoscopy in 5 years for surveillance based on pathology results. My findings are described in the full procedure note, which is enclosed. If I can be of further assistance, please feel free to contact me at . Sincerely, John Reyes, 06/24/2023 4:19:18 PM This report has been signed electronically.
--- NOTE | 2023-06-24 16:19 | OP.COLON_ITS ---
Patient Name: Choco Maldonado Procedure Date: 06/24/2023 3:05 PM Date of : 1960 Age: 62 Procedure: Colonoscopy Indications: Iron deficiency anemia Providers: John Reyes DO Medicines: Monitored Anesthesia Care Patient Profile: This is a 62 year old male. Refer to note in patient chart for documentation of history and physical. Last Colonoscopy: within the past 3 months. Complications: No immediate complications. Procedure: Pre-Anesthesia Assessment: - Prior to the procedure, a History and Physical was performed, and patient medications and allergies were reviewed. The patient is competent. The risks and benefits of the procedure and the sedation options and risks were discussed with the patient. All questions were answered and informed consent was obtained. Patient identification and proposed procedure were verified by the physician in the pre-procedure area. Mental Status Examination: alert and oriented. Airway Examination: normal oropharyngeal airway and neck mobility. Respiratory Examination: clear to auscultation. CV Examination: normal. Prophylactic Antibiotics: The patient does not require prophylactic antibiotics. Prior Anticoagulants: The patient has taken no anticoagulant or antiplatelet agents. ASA Grade Assessment: II - A patient with mild systemic disease. After reviewing the risks and benefits, the patient was deemed in satisfactory condition to undergo the procedure. The anesthesia plan was to use monitored anesthesia care (MAC). Immediately prior to administration of medications, the patient was re-assessed for adequacy to receive sedatives. The heart rate, respiratory rate, oxygen saturations, blood pressure, adequacy of pulmonary ventilation, and response to care were monitored throughout the procedure. The physical status of the patient was re-assessed after the procedure. After I obtained informed consent, the scope was passed under direct vision. Throughout the procedure, the patient's blood pressure, pulse, and oxygen saturations were monitored continuously. The Colonoscope was introduced through the anus and advanced to 10 cm into the ileum. The colonoscopy was performed without difficulty. The patient tolerated the procedure well. The quality of the bowel preparation was adequate. The terminal ileum, ileocecal valve, appendiceal orifice, and rectum were photographed. Scope In: 3:27:01 PM Scope Withdrawal Time 0 hours 13 minutes 23 seconds Scope Out: 3:43:19 PM Total Procedure Duration Time 0 hours 16 minutes 18 seconds Findings: There was evidence of a widely patent end colostomy in the sigmoid colon. This was characterized by healthy appearing mucosa. An 8 mm polyp was found in the ascending colon. The polyp was sessile. The polyp was removed with a hot snare. Resection and retrieval were complete. Verification of patient identification for the specimen was done. Estimated blood loss was minimal. The terminal ileum appeared normal. Impression: - Widely patent end colostomy with healthy appearing mucosa in the sigmoid colon. - One 8 mm polyp in the ascending colon, removed with a hot snare. Resected and retrieved. - The examined portion of the ileum was normal. Recommendation: - [facility]. - Resume regular diet. - Continue present medications. - Await pathology results. - Repeat colonoscopy in 5 years for surveillance based on pathology results. Procedure Code(s): --- Professional --- 81914, Colonoscopy, flexible; with removal of tumor(s), polyp(s), or other lesion(s) by snare technique CPT copyright 2021 [employer]. All rights reserved. The codes documented in this report are preliminary and upon timber harvester operator review may be revised to meet current compliance requirements. John Reyes DO 06/24/2023 4:19:18 PM This report has been signed electronically. Number of Addenda: 0 Note Initiated On: 06/24/2023 3:05 PM
[2023-06-24] MEDS: Amitriptyline 25 MG Tablet 50 MG PO (20:40)
[2023-06-24] MEDS: Atorvastatin Calcium 20 MG Tablet PO (20:40)
[2023-06-24] MEDS: Doxycycline 100 MG CAPSULE PO (20:40)
[2023-06-24] MEDS: Gabapentin 300 MG Capsule PO (20:43)
[2023-06-25] MEDS: cycloBENZAPRine HCl 10 MG Tablet PO ×2 (01:29→09:45)
[2023-06-25] MEDS: Oxycodone/Apap 5/325 Tablet PO (01:29)
[2023-06-25 05:05] VITALS: BP 130/60; PULSE 88; RESP 18; TEMP 36.4; O2SAT 94
[2023-06-25 05:48] LABS: Absolute Lymphocyte Count 2.25 X10^3/uL (0.83-4.51); Absolute Neutrophil Count 4.2 X10^3/uL (2.0-7.7); Basophil# 0.09 X10^3/uL; Basophil% 1.2 % (0-1); Eosinophil# 0.31 X10^3/uL; Eosinophils% 4.2 % (0-5); Hematocrit 25.2 % (40-54); Hemoglobin 7.5 g/dL (13.0-16.5); Lymphocyte # 2.25 X10^3/ul (0.83-4.51); Lymphocyte % 30.8 % (19-41); Mean Corp Hgb Conc 29.8 g/dL (32-36); Mean Corpuscular Hgb 27.2 pg (27.0-32.0); Mean Corpuscular Volume 91.3 fL (80-94); Mean Platelet Vol. 9.1 fl (6.2-12.0); Monocyte# 0.42 X10^3/uL; Monocyte% 5.8 % (0-10); NRBC Flagged by Analyzer 0 % (0-5); Neutrophil # 4.21 X10^3/uL (2.7-7.7); Neutrophil % 57.7 % (47-70); Platelet Count 570 K/mm3 (150-450); RBC Distribution Width CV 16.2 % (11.6-14.6); RBC Distribution Width SD 54.7 fl (35.1-43.9); Red Blood Count 2.76 M/mm3 (4.6-6.2); White Blood Count 7.3 K/mm3 (4.4-11.0)
[2023-06-25 06:16] LABS: Anion Gap 5 (5-15); BUN 7 mg/dL (7-18); BUN/Creat Ratio 6.9 RATIO (10-20); Calcium,Total 8.5 mg/dL (8.5-10.1); Chloride 109 mmol/L (98-107); Creatinine, Serum 1.02 mg/dL (0.70-1.30); EST Glomerular Filtration Rate 79 mL/min (>60); Est Glom Filt Rate - Afr Amer 95 mL/min (>60); Estimated Creatinine Clearance 85.95 ml/min; Glucose 122 mg/dL (74-106); Potassium 3.7 mmol/L (3.5-5.1); Sodium Level 141 mmol/L (136-145)
[2023-06-25 09:45] VITALS: BP 129/72; PULSE 77; RESP 18; TEMP 36.6; O2SAT 95
[2023-06-25] MEDS: Pantoprazole Sodium 40 MG in 0.9% Normal Saline (100mL MB+) 100 ML 330 MG IV (09:45)
[2023-06-25] MEDS: Gabapentin 300 MG Capsule PO (09:45)
[2023-06-25] MEDS: Mupirocin Ointment 22gm Tube 1 APPLIC TOPICAL (09:47)
[2023-06-25] MEDS: FLUoxetine 20 MG Capsule PO (09:48)
[2023-06-25] MEDS: Losartan Potassium 25 MG Tablet PO (09:48)
[2023-06-25] MEDS: Aspirin E.C. 81 MG Tablet PO (09:48)
[2023-06-25] MEDS: Doxycycline 100 MG CAPSULE PO (09:48)
[2023-06-25] MEDS: Iron Polysaccharide Complex 150 MG CAPSULE PO (09:48)
--- NOTE | 2023-06-25 11:36 | CASEMGMT ---
Social Work As per initial shanker out, pt does not have LW/POA and declined additional information. JENNY Fischer
--- NOTE | 2023-06-25 12:15 | EX.PCM.PN.GI ---
Subjective Subjective Patient underwent a colonoscopy through his ostomy yesterday. He has not seen any signs of bleeding since the procedure. He is tolerating a normal diet. He denies any abdominal pain, cramping, nausea or dyspeptic symptoms. His hemoglobin is 7.5 today. Objective Data Objective Data Vital Signs: Vital Signs Temp Pulse Resp BP Pulse Ox O2 Del Method 97.9 F 77 18 129/72 H 95 Room Air 06/25/23 09:45 06/25/23 09:45 06/25/23 09:45 06/25/23 09:45 06/25/23 09:45 06/25/23 09:45 Oxygen Delivery Method Room Air Weight: 198 lb 10.184 oz Body Mass Index (BMI) 26.2 Intake & Output: Intake and Output for Last 24 Hours 06/23/23 06/24/23 06/25/23 23:59 23:59 23:59 Intake Total 1460 / 1460 1558.75 / 1558.75 470 / 470 Output Total 250 / 250 Balance 1460 / 1460 1308.75 / 1308.75 470 / 470 Lab / Micro Data 06/25/23 05:10 06/25/23 05:10 Labs: Laboratory Results - last 24 hr 06/25/23 05:10: WBC 7.3, RBC 2.76 L, Hgb 7.5 L, Hct 25.2 L, MCV 91.3, MCH 27.2, MCHC 29.8 L, RDW Std Deviation 54.7 H, RDW Coeff of Eze 16.2 H, Plt Count 570 H, MPV 9.1, Immature Gran % (Auto) 0.300, Neut % (Auto) 57.7, Lymph % (Auto) 30.8, [place] % (Auto) 5.8, Eos % (Auto) 4.2, Baso % (Auto) 1.2 H, Absolute Neuts (auto) 4.2, Absolute Lymphs (auto) 2.25, Nucleated RBC % 0, Sodium 141, Potassium 3.7, Chloride 109 H, Carbon Dioxide 27.0, Anion Gap 5, BUN 7, Creatinine 1.02, Estim Creat Clear Calc 85.95, Est GFR (MDRD) Af Amer 95, Est GFR (MDRD) Non-Af 79, BUN/Creatinine Ratio 6.9 L, Glucose 122 H, Calcium 8.5 Micro: Microbiology 06/19/23 12:42 Stool Stool Occult Blood (VENKATA) - Final Occult Blood Positive Physical Exam Const alert, oriented x3, no apparent distress and average body habitus General Appearance: cooperative, well kempt and well developed Orientation / Consciousness: awake, oriented to person, oriented to place and oriented to time HEENT normocephalic, head/scalp atraumatic and moist oral mucous membranes Eyes PERRL, EOMs intact bilaterally and conjunctivae normal Neck no lymphadenopathy, supple, no JVD, thyroid normal and no carotid bruits General: trachea midline Lymph Lymphatic: no lymphadenopathy noted and no lymphedema noted Resp normal respiratory effort, normal air movement, no retractions, no use of accessory muscles and clear to auscultation bilaterally Auscultation: Negative for rales, rhonchi or wheezes Cardio regular rate, regular rhythm, S1 normal heart sound, S2 normal heart sound, no murmurs, no rub, no gallops and no clicks GI normal to inspection, nondistended, normoactive bowel sounds, soft to palpation, non-tender and non-distended GI Narrative: Has colostomy bag which contains dark stools. Extremity Extremity Narrative: Has 2+ edema of the right foot. Has a well-healed incision on the inner aspect of the right thigh which is from peripheral bypass. mild discharge has resolved. Skin no rashes or lesions noted Skin Narrative: As under extremities. General Skin Exam: no breakdown Neuro oriented x3, CN's II-XII intact bilaterally, no focal motor deficits, no sensory deficits noted and deep tendon reflexes 2+ bilaterally Sensorium / Orientation: awake and alert Speech: speech normal Motor Exam: strength 5/5 throughout and general weakness Psych thought process normal, cooperative and affect normal Appearance: appropriate Assessment & Plan Assessment/Plan (1) GI bleed: PLAN: Plan Patient is a 62-year-old gentleman with recent vascular surgery on systemic anticoagulation with Xarelto who presented with near syncope while taking a shower and dark stools in his colostomy bag. Presented to the emergency department hemoglobin was found to be 5.4. Admitted to monitored bed for subsequent evaluation Acute GI bleed ? Suspected to secondary to upper GI bleed, hemoglobin on admission was 5.8 and currently it is 7.7. Patient was typed and crossmatched transfused with 2 unit PRBC started on Protonix drip admitted to monitored bed with consultation placed to GI. Patient is on antiplatelet therapy with aspirin as well as systemic anticoagulation with Xarelto but held - Patient underwent EGD on 06/08/2023 findings as below - Normal esophagus. - Small hiatal hernia. - No gross lesions in the third portion of the duodenum. - No specimens collected. Plan is for patient to repeat endoscopic evaluation with colonoscopy. His colonoscopy previously done had a very poor prep. Hemoglobin seems to be stable. ?06/10/2023 Underwent colonoscopy 06/10/2023 findings and recommendations as below Preparation of the colon was poor. - Patent end colostomy with healthy appearing mucosa in the sigmoid colon. - Stool in the descending colon, at the splenic flexure, in the transverse colon, in the ascending colon and in the cecum. - No specimens collected. Recommendations : - Discharge patient to home. - Resume previous diet. - Continue present medications. - Repeat colonoscopy because the bowel preparation was suboptimal. -06/25/23-patient is not having any melanotic stools at this time. He underwent colonoscopy yesterday through the ostomy. Findings: There was evidence of a widely patent end colostomy in the sigmoid colon. This was characterized by healthy appearing mucosa. An 8 mm polyp was found in the ascending colon. The polyp was sessile. The polyp was removed with a hot snare. Resection and retrieval were complete. Verification of patient identification for the specimen was done. Estimated blood loss was minimal. The terminal ileum appeared normal. Impression: - Widely patent end colostomy with healthy appearing mucosa in the sigmoid colon. - One 8 mm polyp in the ascending colon, removed with a hot snare. Resected and retrieved. - The examined portion of the ileum was normal. Recommendation: - [facility]. - Resume regular diet. - Continue present medications. - Await pathology results. - Repeat colonoscopy in 5 years for surveillance based on pathology results I will check iron studies and give him an iron transfusion. Charges/Coding Visit Charges Inpatient E&M: 07046 [facility] L3
[2023-06-25 12:37] LABS: Platelet Count 592 K/mm3 (150-450)
[2023-06-25] MEDS: 0.9% Saline Lock 10 ML Syringe IV (12:44)
[2023-06-25] MEDS: Sodium Ferric Gluconat/Sucrose 250 MG in 0.9% Normal Saline (250mL Bag) 250 ML 135 MG IV (12:44)
--- NOTE | 2023-06-25 12:50 | DCINST_ITS ---
Discharge Instructions Diet Discharge Diet: Low fat / Low cholesterol Activity Discharge Activity: Return to Normal Activity Weight Bearing Status: Weight bearing as tolerated Dressing / Incision Call your doctor if you observe: Fever of 101 or Higher, Shortness of breath, Dizziness, Swelling in the ankles, Chest pain and - (persistent dark stools) Follow Up Care Test Results: Test results from this visit will be discussed in further detail at your follow- up appointment, if applicable. Discharge Plan Admission Admit Date/Time: 06/19/23 14:21 Primary Reason for Your Visit: acute on chronic anemia Attending Provider: Pascale Soto Primary Care Provider: Kenroy Larry Consulting Providers: Devon Cutler; Milton Bergeron Instructions Patient Instructions: Anemia Discharge Orders/Prescriptions Prescriptions: Continued atorvastatin 20 MG tablet 20 mg PO QHS nifedipine 30 MG tablet extended release 30 mg PO DAILY PRN (Reason: raynauds syndrome) Rasheed Autoinjector 80 mg/mL auto-injector 80 mg SUBCUT QMONTH rizatriptan 10 mg tablet,disintegrating 10 mg PO PRN PRN (Reason: Migraine Headache) Patient Comments: TAKE 1 TABLET BY MOUTH NEEDED for migraine, may repeat in 2 (TWO) hours if needed fluoxetine 20 mg capsule 20 mg PO DAILY amitriptyline 50 mg tablet 50 mg PO QHS losartan 25 mg tablet 25 mg PO DAILY ondansetron 4 mg tablet,disintegrating 4 mg PO Q8H PRN (Reason: nausea and vomiting) Qty: 10 0RF cyclobenzaprine 10 mg tablet 10 mg PO TID PRN Patient Comments: Take 1 tablet by mouth three times a day as needed for muscle spasm for up to 7 days. oxycodone 5 mg tablet 5 mg PO Q6H PRN (Reason: pain (scale score 4-6)) Patient Comments: Take 1 tablet by mouth every 6 hours as needed for pain for up to 7 days. Xarelto 20 mg tablet 20 mg PO QPM Hold Instructions: Resume on 07/09/23. gabapentin 300 mg capsule 300 mg PO Q12H pantoprazole 40 mg tablet,delayed release (DR/EC) 40 mg PO DAILY Patient Comments: TAKE 1 TABLET BY MOUTH DAILY before BREAKFAST. take on empty stomach 30 MINUTES before meal Niferex (Sumalate-Quatrefolic) 150 mg iron- 60 mg-1 mg tablet 1 tab PO DAILY Qty: 60 0RF oxycodone-acetaminophen 5-325 mg tablet 1 tab PO BID PRN (Reason: pain) Discontinued aspirin 81 mg tablet,delayed release (DR/EC) 81 mg PO DAILY Referrals / Follow Up: John Reyes DO [Med Staff - Active Staff] - Within 2 Weeks Kenroy Larry MD [Primary Care Provider] - 06/30/23 10:10 am (Appointment is with Susana Walton N.P.) Disposition Disposition (needs filled in before D/C Order can be placed): Home, Self Care
--- NOTE | 2023-06-25 12:53 | DS.PCM_ITS ---
Providers Date of Admission: 06/19/23 Date of Discharge: 06/25/23 Primary Care Physician: Dr. Kenroy Larry MD Consultations 06/19/23 19:30 Consult: Gastroenterology Routine Consulting Provider: [facility] Reason for Consult: GI bleeding EMERGENT Consult: No MD Notified: Yes Date Notified: 06/19/23 Time Notified: 19:30 Method of Notification: ED Physician Initiated Reason For Visit: GI BLEEDING Diagnosis Discharge Diagnosis (1) GI bleed: Status: Resolved Code(s): K92.2 - Gastrointestinal hemorrhage, unspecified Plan #Acute on hronic anemia due to acute GI bleed * Still having melena stools. Hemoglobin today was initially 7, on repeat was 7.7 * On IV pantoprazole. Had EGD which was negative for any acute pathology. * Gastroenterology on board. * Of note he is also on iron which could be giving him the blackened stools. * for colonoscopy today * #Peripheral artery disease s/p femoropopliteal bypass in the right lower extrem ity x 2 * P. Right foot has 1+ pedal edema. * Apply Bactroban cream. Duplex of the lower extremity was negative for any evidence of DVT. * on aspirin * on PO doxycycline 100mg bid x 5 days * #orthostatic hypotension * resolved with hydration. * * #Depression: On Prozac #Hyperlipidemia: On statin #Benign essential hypertension: On losartan. #Raynaud's disease: stable DVT prophylaxis: SCDs. Disposition: for likely dc over the next 24-48 hours depending on the results of the colonoscopy Medications at Discharge Home Medications atorvastatin 20 mg tablet 20 mg PO QHS cholesterol 09/17/15 nifedipine 30 mg tablet,extended release 30 mg PO DAILY PRN raynauds syndrome 09/17/15 fluoxetine 20 mg capsule 20 mg PO DAILY mental health 09/20/20 ixekizumab 80 mg/mL subcutaneous auto-injector (Taltz Autoinjector) 80 mg subcut QMONTH skin health 09/20/20 rizatriptan 10 mg disintegrating tablet 10 mg PO PRN PRN Migraine Headache 0 09/20/20 amitriptyline 50 mg tablet 50 mg PO QHS mental health 01/17/22 losartan 25 mg tablet 25 mg PO DAILY blood pressure 01/17/22 ondansetron 4 mg disintegrating tablet 4 mg PO Q8H PRN nausea and vomiting #10 tabs 01/17/22 cyclobenzaprine 10 mg tablet 10 mg PO TID PRN muscle spasms 06/07/23 gabapentin 300 mg capsule 300 mg PO Q12H neuropathy/nerve pain 06/07/23 oxycodone 5 mg tablet 5 mg PO Q6H PRN pain (scale score 4-6) 06/07/23 pantoprazole 40 mg tablet,delayed release 40 mg PO DAILY heart burn 06/07/23 rivaroxaban 20 mg tablet (Xarelto) 20 mg PO QPM blood thinner 06/07/23 iron 150 mg-vit C 60 mg-folate 1 [id number] tablet (Niferex (Sumalate-Quatrefolic)) 1 tab PO DAILY supplement #60 tabs 06/10/23 oxycodone-acetaminophen 5 mg-325 mg tablet 1 tab PO BID PRN pain 06/19/23 Hospital Course Operations None Procedures Colonoscopy and EGD Summary of Care Provided Minutes Spent on Discharge: 55 Hospital Course: Patient is a 62 y/o male with a PMH of severe diverticulitis complicated by perforation s/p sigmoidectomy and 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 He was admitted through the ED on 06/19/2023 with a complaint of acute on chronic anemia. Patient had noted that he was having dark stools in his colostomy bag. He had recently been admitted for similar complaints and there was concern for GI bleed. He had an upper endoscopy on 06/08/2023 which showed normal esophagus with small hiatal hernia. He also had a colonoscopy which showed poor prep so poor visualization. Plan was for him to have repeat colonoscopy. He was then discharged home. However his symptoms worsened with a persistent dark stool so he came into the ED. He had associated dizziness and lightheadedness. On admission hemoglobin was 5.8. He was transfused with 2 units of packed red blood cells and admitted to be managed for acute on chronic anemia due to acute blood loss. Gastroenterology was consulted. He had EGD which showed no evidence of bleeding. He subsequently had colonoscopy which showed widely pa tent and colostomy with healthy appearing mucosa in the sigmoid colon and one 8 mm polyp in the ascending colon which was removed with a hot snare. Patient remained stable and plan was for him to have capsule endoscopy on outpatient basis by gastroenterology. Of note, patient had had recent vascular surgery in May 2023 at [facility] and had been on Xarelto and aspirin. The incision site had mild purulent discharge on admission so he was placed on p.o. doxycycline. Discharge subsequently stopped. Patient remained stable and was discharged home on 06/25/2023. Per gastroenterology, aspirin was stopped and was continued on the Xarelto. He is to follow-up with his primary care doctor within 1 to 2 weeks. He is also to follow-up with gastroenterology Within 1 to 2 weeks. Patient seen and examined prior to discharge. He had no complaints and had an uneventful night. Review of systems otherwise negative. Labs and vitals reviewed. Home medication reviewed and reconciled. Patient's was by his bedside and agreed to discharge also. Physical Exam Const alert, oriented x3, no apparent distress and average body habitus General Appearance: cooperative, comfortable, well kempt and well developed Orientation / Consciousness: awake, oriented to person, oriented to place and oriented to time HEENT normocephalic, head/scalp atraumatic, hearing grossly normal bilaterally and moist oral mucous membranes Mouth: oral and palatal mucosa normal Eyes PERRL, EOMs intact bilaterally and conjunctivae normal Neck no lymphadenopathy, supple, no JVD, thyroid normal and no carotid bruits General: trachea midline Lymph Lymphatic: no lymphadenopathy noted and no lymphedema noted Resp normal respiratory effort, normal air movement, no retractions, no use of accessory muscles and clear to auscultation bilaterally Auscultation: Negative for rales, rhonchi or wheezes Cardio regular rate, regular rhythm, S1 normal heart sound, S2 normal heart sound, no rub, no gallops and no clicks Cardio Narrative: Systolic ejection murmur GI normal to inspection, nondistended, normoactive bowel sounds, soft to palpation, non-tender and non-distended GI Narrative: Has colostomy bag which contains dark stools. Extremity Extremity Narrative: Has 2+ edema of the right foot. Has a well-healed incision on the inner aspect of the right thigh which is from peripheral bypass. mild discharge has resolved. Skin no rashes or lesions noted Skin Narrative: As under extremities. General Skin Exam: no breakdown Neuro oriented x3, CN's II-XII intact bilaterally, moves all extremities, no focal motor deficits, no sensory deficits noted and deep tendon reflexes 2+ bilaterally Sensorium / Orientation: awake and alert Speech: speech normal Motor Exam: strength 5/5 throughout and general weakness Psych thought process normal, cooperative and affect normal Appearance: appropriate Weight / BMI Weight Weight: 198 lb 10.184 oz Body Mass Index (BMI) 26.2 ABG / Lab / Microbiology Data 06/25/23 05:10 06/25/23 05:10 Laboratory: Laboratory Results - last 24 hr 06/25/23 05:10: WBC 7.3, RBC 2.76 L, Hgb 7.5 L, Hct 25.2 L, MCV 91.3, MCH 27.2, MCHC 29.8 L, RDW Std Deviation 54.7 H, RDW Coeff of Eze 16.2 H, Plt Count 570 H, MPV 9.1, Immature Gran % (Auto) 0.300, Neut % (Auto) 57.7, Lymph % (Auto) 30.8, [place] % (Auto) 5.8, Eos % (Auto) 4.2, Baso % (Auto) 1.2 H, Absolute Neuts (auto) 4.2, Absolute Lymphs (auto) 2.25, Nucleated RBC % 0, Retic Count 2.99 H, Immature Retic Fraction 21.90 H, Retic Hgb Equivalent 20.8 L, Sodium 141, Potassium 3.7, Chloride 109 H, Carbon Dioxide 27.0, Anion Gap 5, BUN 7, Creatinine 1.02, Estim Creat Clear Calc 85.95, Est GFR (MDRD) Af Amer 95, Est GFR (MDRD) Non-Af 79, BUN/Creatinine Ratio 6.9 L, Glucose 122 H, Calcium 8.5 Microbiology: Microbiology 06/19/23 12:42 Stool Stool Occult Blood (VENKATA) - Final Occult Blood Positive D/C Instructions Discharge Diet: Low fat / Low cholesterol Discharge Activity: Return to Normal Activity Weight Bearing Status: Weight bearing as tolerated Call your doctor if you observe: Fever of 101 or Higher, Shortness of breath, Dizziness, Swelling in the ankles, Chest pain and - (persistent dark stools) Meaningful Use Info Meaningful Use Diagnoses (Choose all that apply): None applicable Discharge Plan Admission Admit Date/Time: 06/19/23 14:21 Primary Reason for Your Visit: acute on chronic anemia Attending Provider: Pascale Soto Primary Care Provider: Kenroy Larry Consulting Providers: CutlerJennifer Mark Instructions Patient Instructions: Anemia Discharge Orders/Prescriptions Prescriptions: Continued atorvastatin 20 MG tablet 20 mg PO QHS nifedipine 30 MG tablet extended release 30 mg PO DAILY PRN (Reason: raynauds syndrome) Rasheed Autoinjector 80 mg/mL auto-injector 80 mg SUBCUT QMONTH rizatriptan 10 mg tablet,disintegrating 10 mg PO PRN PRN (Reason: Migraine Headache) Patient Comments: TAKE 1 TABLET BY MOUTH NEEDED for migraine, may repeat in 2 (TWO) hours if needed fluoxetine 20 mg capsule 20 mg PO DAILY amitriptyline 50 mg tablet 50 mg PO QHS losartan 25 mg tablet 25 mg PO DAILY ondansetron 4 mg tablet,disintegrating 4 mg PO Q8H PRN (Reason: nausea and vomiting) Qty: 10 0RF cyclobenzaprine 10 mg tablet 10 mg PO TID PRN Patient Comments: Take 1 tablet by mouth three times a day as needed for muscle spasm for up to 7 days. oxycodone 5 mg tablet 5 mg PO Q6H PRN (Reason: pain (scale score 4-6)) Patient Comments: Take 1 tablet by mouth every 6 hours as needed for pain for up to 7 days. Xarelto 20 mg tablet 20 mg PO QPM Hold Instructions: Resume on 07/09/23. gabapentin 300 mg capsule 300 mg PO Q12H pantoprazole 40 mg tablet,delayed release (DR/EC) 40 mg PO DAILY Patient Comments: TAKE 1 TABLET BY MOUTH DAILY before BREAKFAST. take on empty stomach 30 MINUTES before meal Niferex (Sumalate-Quatrefolic) 150 mg iron- 60 mg-1 mg tablet 1 tab PO DAILY Qty: 60 0RF oxycodone-acetaminophen 5-325 mg tablet 1 tab PO BID PRN (Reason: pain) Discontinued aspirin 81 mg tablet,delayed release (DR/EC) 81 mg PO DAILY Referrals / Follow Up: John Reyes DO [Med Staff - Active Staff] - Within 2 Weeks Kenroy Larry MD [Primary Care Provider] - 06/30/23 10:10 am (Appointment is with Susana Walton N.P.) Disposition Disposition (needs filled in before D/C Order can be placed): Home, Self Care Charges/Coding Visit Charges Inpatient E&M: 39365 Disch Hosp >30min
[2023-06-25 12:54] LABS: Ferritin 23 ng/mL (26-388); Iron 14 ug/dL (65-175); Iron Binding Capacity,Total 350 ug/dL (250-450)
[2023-06-25 13:04] LABS: RET-HE 21.9 pg (30-35); Reticulocyte Count 4.79 % (0.5-1.5)
--- NOTE | 2023-06-25 13:08 | PHA.DC.MR.R ---
Pharmacy [place] Med Reconciliation Pharmacy Service has performed discharge medication reconciliation for this patient. The patient's discharge medication list was reviewed for discrepancies and discrepancies were resolved. Medications at Discharge Home Medications atorvastatin 20 mg tablet 20 mg PO QHS cholesterol 09/17/15 nifedipine 30 mg tablet,extended release 30 mg PO DAILY PRN raynauds syndrome 09/17/15 fluoxetine 20 mg capsule 20 mg PO DAILY mental health 09/20/20 ixekizumab 80 mg/mL subcutaneous auto-injector (Taltz Autoinjector) 80 mg subcut QMONTH skin health 09/20/20 rizatriptan 10 mg disintegrating tablet 10 mg PO PRN PRN Migraine Headache 09/20/20 amitriptyline 50 mg tablet 50 mg PO QHS mental health 01/17/22 losartan 25 mg tablet 25 mg PO DAILY blood pressure 01/17/22 ondansetron 4 mg disintegrating tablet 4 mg PO Q8H PRN nausea and vomiting #10 tabs 01/17/22 cyclobenzaprine 10 mg tablet 10 mg PO TID PRN muscle spasms 06/07/23 gabapentin 300 mg capsule 300 mg PO Q12H neuropathy/nerve pain 06/07/23 oxycodone 5 mg tablet 5 mg PO Q6H PRN pain (scale score 4-6) 06/07/23 pantoprazole 40 mg tablet,delayed release 40 mg PO DAILY heart burn 06/07/23 rivaroxaban 20 mg tablet (Xarelto) 20 mg PO QPM blood thinner 06/07/23 iron 150 mg-vit C 60 mg-folate 1 [id number] tablet (Niferex (Sumalate-Quatrefolic)) 1 tab PO DAILY supplement #60 tabs 06/10/23 oxycodone-acetaminophen 5 mg-325 mg tablet 1 tab PO BID PRN pain 06/19/23
--- NOTE | 2023-06-25 13:29 | CASEMGMT ---
Patient has order for discharge. RN CM in to discuss needs at discharge. Patient denies needs or help at discharge. Patient had no further questions or concerns at this time.
[2023-06-25 14:37] VITALS: BP 136/69; PULSE 72; RESP 18; TEMP 36.6; O2SAT 96
== END 2023-06-25 15:08 | disposition home or self-care (01) | DRG 253 ==
LOC: ED 12:44 → PCU 16:33
PROVIDERS: Anesthesiology; Internal Medicine; Internal Medicine Gastroenterology; Admitting Provider Internal Medicine; Emergency Provider Emergency Medicine; PCP Family Medicine; Visit Provider Student in an Organized Health Care Education/Training Program
PROC: 0DJ08ZZ Inspection of Upper Intestinal Tract, Via Natural or Artificial Opening Endoscopic (ICD-10-PCS; CPT 43235; principal; 2023-06-22 11:25)
PROC: 0DJD8ZZ Inspection of Lower Intestinal Tract, Via Natural or Artificial Opening Endoscopic (ICD-10-PCS; CPT 45378; principal; 2023-06-24 14:25)
DX: K92.2 Gastrointestinal hemorrhage, unspecified (principal); S85.00 Unspecified injury of popliteal artery; I73.9 Peripheral vascular disease, unspecified; Z93.3 Colostomy status; I10 Essential (primary) hypertension; E78.5 Hyperlipidemia, unspecified; K21.9 Gastro-esophageal reflux disease without esophagitis; F41.8 Other specified anxiety disorders; D62 Acute posthemorrhagic anemia; I95.1 Orthostatic hypotension; K63.5 Polyp of colon; L40.9 Psoriasis, unspecified; I73.00 Raynaud's syndrome without gangrene; K44.9 Diaphragmatic hernia without obstruction or gangrene; G43.909 Migraine, unspecified, not intractable, without status migrainosus; D75.839 Thrombocytosis, unspecified; Z79.01 Long term (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 of anticoagulants; Z87.891 Personal history of nicotine dependence; Z79.82 Long term (current) use of aspirin; Z95.828 Presence of other vascular implants and grafts; Z79.899 Other long term (current) drug therapy; R60.0 Localized edema; Z79.02 Long term (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 of antithrombotics/antiplatelets
CPT/HCPCS: 36415; 71045; 74177; 75635; 80048; 80053; 80076; 82274; 82728; 82962; 83540; 83550; 83605; 83690; 83735; 84100; 84443; 84484; 85014; 85018; 85025; 85027; 85045; 85610; 85730; 86644; 86850; 86900; 86901; 86920; 86921; 86922; 88305; 93005; 93922; 93926; 93971; 97802; 99285; 99406; J7030; J7040; J7050; J7120; P9016; Q9967; A4216; J2405; J2916; J3490

== ENCOUNTER 2023-08-17 15:31 | Inpatient (IN) | payer MEDICAID, SELFPAY ==
[2023-08-17] VITALS (21 sets, daily range): BP systolic 109–152; BP diastolic 57–98; PULSE 64–87; RESP 14–26; TEMP 36.1–37.2; O2SAT 98–100; BMI 26.5
[2023-08-17] MEDS: 0.9% Normal Saline (1000mL) 1,000 ML 1000 ML IV (15:59)
[2023-08-17 16:01] LABS: Absolute Lymphocyte Count 1.74 X10^3/uL (0.83-4.51); Absolute Neutrophil Count 5.9 X10^3/uL (2.0-7.7); Basophil# 0.05 X10^3/uL; Basophil% 0.6 % (0-1); Eosinophil# 0.11 X10^3/uL; Eosinophils% 1.4 % (0-5); Hematocrit 16.6 % (40-54); Lymphocyte # 1.74 X10^3/ul (0.83-4.51); Lymphocyte % 21.5 % (19-41); Mean Corp Hgb Conc 28.3 g/dL (32-36); Mean Corpuscular Hgb 23.2 pg (27.0-32.0); Mean Corpuscular Volume 81.8 fL (80-94); Mean Platelet Vol. 8.7 fl (6.2-12.0); Monocyte# 0.32 X10^3/uL; Monocyte% 3.9 % (0-10); NRBC Flagged by Analyzer 0.4 % (0-5); Neutrophil # 5.85 X10^3/uL (2.7-7.7); Neutrophil % 72.1 % (47-70); POSITIVE COUNT YES; Platelet Count 430 K/mm3 (150-450); RBC Distribution Width SD 50.7 fl (35.1-43.9); Red Blood Count 2.03 M/mm3 (4.6-6.2); White Blood Count 8.1 K/mm3 (4.4-11.0)
[2023-08-17 16:05] LABS: Differential Indicated SCAN CRITERIA MET; Hemoglobin 4.7 g/dL (13.0-16.5)
--- NOTE | 2023-08-17 16:07 | ED.RN ---
HEMOGLOBIN 4.7. DR OLIVA [place]
[2023-08-17 16:18] LABS: AST(SGOT) 14 U/L (15-37); Alanine Aminotransfer ALT/SGPT 19 U/L (16-61); Albumin, Serum 3.6 g/dL (3.2-5.0); Alkaline Phosphatase 79 U/L (45-117); Anion Gap 7 (5-15); BUN 19 mg/dL (7-18); BUN/Creat Ratio 17.3 RATIO (10-20); Bilirubin, Direct 0.11 mg/dL (0.00-0.30); Calcium,Total 8.5 mg/dL (8.5-10.1); Chloride 106 mmol/L (98-107); EST Glomerular Filtration Rate 72 mL/min (>60); Est Glom Filt Rate - Afr Amer 87 mL/min (>60); Globulin 3.5 g/dL (2.2-4.2); Glucose 127 mg/dL (74-106); Potassium 3.8 mmol/L (3.5-5.1); Protein, Total 7.1 g/dL (6.4-8.2); Sodium Level 139 mmol/L (136-145)
--- NOTE | 2023-08-17 16:24 | EDS_ITS ---
HPI History of Present Illness Chief Complaint: Abn Labs Narrative Narrative: 62-year-old male presenting with anemia. He has a history of this. The patient is on Xarelto currently. Has been back on it for about a month. The patient states that he was seen by Dr. Reyes previously. Had upper and lower endoscopy and a pill study which were all negative for bleeding. He had a CTA which showed a possible hematoma developing around his previous femoropopliteal bypass and there was concern that this could be the source of his anemia. He was sent to [facility] for evaluation of this. He states that they did not determine that this was a source of bleeding. 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 He states that he still has the previous bypass in his leg but also they used a [place] vessel to bypass the leg and he still has some edema and pain in the right leg which has not worsened or improved. Patient states he has some numbness after the surgery which has not changed either. He is on gabapentin for this. Patient's hemoglobin came back at 5 today. He has dark stools in his colostomy bag. He does not admit to any abdominal pain. He is not had any fevers. He is not vomiting blood or had any coffee-ground emesis. He feels generally a little bit weak and short of breath and lightheaded with ambulation secondary to his anemia. [facility] Medical History Acute gastrointestinal bleeding Anticoagulant long-term use Arthritis Diverticulitis GERD (gastroesophageal reflux disease) Heart murmur Hypertension Polycythemia Psoriasis Signs and symptoms of anemia Symptomatic anemia Transfusion of blood during current hospitalization Vertigo Home Medications atorvastatin 20 mg tablet 20 mg PO QHS cholesterol 09/17/15 [History Last Taken 06/18/23] nifedipine 30 mg tablet,extended release 30 mg PO DAILY PRN raynauds syndrome 09/17/15 [History Last Taken Unknown] fluoxetine 20 mg capsule 20 mg PO DAILY mental health 09/20/20 [History Last Taken 06/18/23] ixekizumab 80 mg/mL subcutaneous auto-injector (Taltz Autoinjector) 80 mg subcut QMONTH skin health 09/20/20 [History Last Taken 05/24/23] rizatriptan 10 mg disintegrating tablet 10 mg PO PRN PRN Migraine Headache 09/20/20 [History Last Taken Unknown] amitriptyline 50 mg tablet 50 mg PO QHS mental health 01/17/22 [History Last Taken 06/18/23] losartan 25 mg tablet 25 mg PO DAILY blood pressure 01/17/22 [History Last Taken 06/18/23] ondansetron 4 mg disintegrating tablet 4 mg PO Q8H PRN nausea and vomiting #10 tabs 01/17/22 [Rx Last Taken Unknown] cyclobenzaprine 10 mg tablet 10 mg PO TID PRN muscle spasms 06/07/23 [History Last Taken Unknown] gabapentin 300 mg capsule 300 mg PO Q12H neuropathy/nerve pain 06/07/23 [History Last Taken 06/18/23] oxycodone 5 mg tablet 5 mg PO Q6H PRN pain (scale score 4-6) 06/07/23 [History Last Taken 06/19/23 07:30] pantoprazole 40 mg tablet,delayed release 40 mg PO DAILY heart burn 06/07/23 [History Last Taken 06/18/23] rivaroxaban 20 mg tablet (Xarelto) 20 mg PO QPM blood thinner 06/07/23 [History Last Taken 06/18/23 22:00] iron 150 mg-vit C 60 mg-folate 1 [id number] tablet (Niferex (Sumalate-Quatrefolic)) 1 tab PO DAILY supplement #60 tabs 06/10/23 [Rx Last Taken 06/18/23] oxycodone-acetaminophen 5 mg-325 mg tablet 1 tab PO BID PRN pain 06/19/23 [History Last Taken 06/19/23] Allergy/AdvReac Type Severity Reaction Status Date / Time verapamil Allergy Rash Verified 08/17/23 15:32 Surgical History Hx of cardiac catheterization Social History Smoking Status: Former smoker substance use type: does not use ROS ROS ED Constitutional Constitutional ED: Denies chills, fever(s) or sweats Eyes Eyes: Denies blurry vision or change in vision ENT ENT ED: Denies ear pain or sore throat Cardiovascular Cardiovascular: Denies chest pain, palpitations or racing heartbeat Respiratory/Chest Respiratory/Chest: Denies cough, dyspnea or sputum Gastrointestinal Gastrointestinal: Denies abdominal pain, constipation, diarrhea, nausea or vomiting Genitourinary Genitourinary ED: Denies dysuria, hematuria or urinary frequency Musculoskeletal Musculoskeletal: Denies arthralgias, myalgias or neck pain Integumentary Denies abscess, Abrasions or rash Neurologic Neurologic: Denies headache(s), paresthesias or weakness Psychiatric Psychiatric: Denies anxiety, depression, suicidal ideation or suicidal thoughts Endocrine Endocrinology: Denies polydipsia or polyuria EXAM Physical Exam Const Vital Signs: 08/17/23 15:32 08/17/23 15:38 08/17/23 15:38 Temperature 96.9 F L Temperature Source Temporal Pulse Rate 85 77 Respiratory Rate 18 19 H Respiratory Effort Normal Non-Labored Respiratory Depth Respiratory Pattern Normal Blood Pressure 130/58 H 124/64 H Blood Pressure Mean 82 84 Blood Pressure Source Blood Pressure Position Blood Pressure Location Pulse Ox 100 100 Oxygen Delivery Method Room Air Room Air 08/17/23 15:38 08/17/23 16:05 08/17/23 16:30 Temperature Temperature Source Pulse Rate 87 84 Respiratory Rate 25 H 17 Respiratory Effort Normal Non-Labored Respiratory Depth Normal Respiratory Pattern Normal Blood Pressure 140/58 H Blood Pressure Mean 82 Blood Pressure Source Blood Pressure Position Blood Pressure Location Pulse Ox 100 Oxygen Delivery Method Room Air 08/17/23 17:00 08/17/23 17:17 08/17/23 17:32 Temperature 97.7 F L 98.9 F Temperature Source Oral Oral Pulse Rate 82 73 81 Respiratory Rate 15 19 H 17 Respiratory Effort Respiratory Depth Respiratory Pattern Blood Pressure 139/65 H 109/84 H 132/68 H Blood Pressure Mean 85 92 89 Blood Pressure Source Monitor Monitor Blood Pressure Position Supine Sitting Blood Pressure Location Left Forearm Pulse Ox 100 98 100 Oxygen Delivery Method Room Air Room Air 08/17/23 17:30 08/17/23 18:00 08/17/23 18:15 Temperature Temperature Source Pulse Rate 81 86 Respiratory Rate 19 H 18 Respiratory Effort Respiratory Depth Respiratory Pattern Blood Pressure 132/68 H 128/63 H 152/98 H Blood Pressure Mean 84 85 109 Blood Pressure Source Blood Pressure Position Blood Pressure Location Pulse Ox 100 Oxygen Delivery Method 08/17/23 18:17 08/17/23 18:30 08/17/23 19:00 Temperature Temperature Source Pulse Rate 76 82 79 Respiratory Rate 26 H 24 H 24 H Respiratory Effort Respiratory Depth Respiratory Pattern Blood Pressure 129/57 H 123/63 H Blood Pressure Mean 79 78 Blood Pressure Source Blood Pressure Position Blood Pressure Location Pulse Ox 100 99 100 Oxygen Delivery Method 08/17/23 18:32 08/17/23 19:30 08/17/23 19:20 Temperature 98.7 F 97.9 F Temperature Source Temporal Oral Pulse Rate 78 68 71 Respiratory Rate 15 20 H 18 Respiratory Effort Respiratory Depth Respiratory Pattern Blood Pressure 117/68 117/66 138/70 H Blood Pressure Mean 84 83 92 Blood Pressure Source Monitor Monitor Blood Pressure Position Semi-Fowlers Sitting Blood Pressure Location Right Arm Right Arm Pulse Ox 100 100 100 Oxygen Delivery Method Room Air Room Air Room Air 08/17/23 19:55 08/17/23 20:10 08/17/23 21:00 Temperature 98.1 F 97.8 F 97.8 F Temperature Source Oral Oral Oral Pulse Rate 71 64 64 Respiratory Rate 18 16 18 Respiratory Effort Respiratory Depth Respiratory Pattern Blood Pressure 131/72 H 130/65 H 130/65 H Blood Pressure Mean 91 86 86 Blood Pressure Source Monitor Monitor Blood Pressure Position Sitting Semi-Fowlers Blood Pressure Location Right Arm Right Arm Pulse Ox 98 100 100 Oxygen Delivery Method Room Air Room Air Room Air 08/17/23 22:07 08/17/23 22:08 Temperature 98.1 F Temperature Source Oral Pulse Rate 74 72 Respiratory Rate 14 16 Respiratory Effort Respiratory Depth Respiratory Pattern Blood Pressure 140/62 H 130/65 H Blood Pressure Mean 88 86 Blood Pressure Source Monitor Blood Pressure Position Semi-Fowlers Blood Pressure Location Right Arm Pulse Ox 100 100 Oxygen Delivery Method Room Air Room Air Positive well nourished General Appearance ED: NAD HEENT Reports moist mucous membranes Eyes PERRL and EOMs intact bilaterally General Eye ED: Yes pale conjunctiva Chest Wall inspection of chest normal Resp normal respiratory effort Cardio regular rate and regular rhythm GI normal to inspection, nondistended, normoactive bowel sounds GI Narrative: Colostomy bag with black stool. Extremity Extremity Narrative: Surgical site on right lower extremity appears clean, dry, intact. Well-healing surgical scar on the medial aspect of the left leg. Neuro oriented x3 Sensorium / Orientation: alert Motor Exam: strength 5/5 throughout Psych mental status grossly normal MDM MDM MDM Narrative Medical decision making narrative: 62-year-old male presenting with anemia. His vital signs are stable he is afebrile. CBC today showed a white blood cell count 8.1. Hemoglobin 417. Patient was typed, screened, crossmatch for 2 units. Renal function and electrolytes appear to be normal. LFTs are unremarkable. Patient was given IV fluids and treated with fentanyl for his pain. He states he does not have his gabapentin nor does he have his oxycodone which he normally takes. At this point him and keeping him a oh. I spoke with Dr. Aceves regarding the patient as his Hemoccult came back positive from his colostomy bag. He recommended a CTA which was negative. After I spoke with Dr. Reyes again about this he stated that he was concerned that is there is something in the small bowel which she could not get to the recommended transfer. It looks like he was at [facility] which is a [facility] facility. I spoke with the hospitalist at [facility] regarding the patient and she was unsure whether they would have anything to further evaluate his GI bleed. The transfer line was going to get the GI doctor on the phone to talk to me however it has been a few hours now and have not heard back. I will reinitiate the transfer and talk to them again. Patient is received a couple doses of fentanyl here for pain. He been hemodynamically stable and his blood's been started. Patient has been accepted to [facility] although it is unclear when the bed assignment will be mad e. Patient will be monitored until transfer can be obtained. Impression: 1. GI bleed 2. Acute blood loss anemia Lab Data Attestation: I reviewed the patient's lab results. Labs: Laboratory Results - last 24 hr 08/17/23 15:55 WBC 8.1 RBC 2.03 L Hgb 4.7 L* Hct 16.6 L MCV 81.8 MCH 23.2 L MCHC 28.3 L RDW Std Deviation 50.7 H RDW Coeff of Eze 17.0 H Plt Count 430 MPV 8.7 Immature Gran % (Auto) 0.500 Neut % (Auto) 72.1 H Lymph % (Auto) 21.5 [place] % (Auto) 3.9 Eos % (Auto) 1.4 Baso % (Auto) 0.6 Absolute Neuts (auto) 5.9 Absolute Lymphs (auto) 1.74 Nucleated RBC % 0.4 Differential Comment SCANNED Diff Path Review May foll Polychromasia 1+ Hypochromasia 2+ Anisocytosis 1+ Target Cells RARE Sodium 139 Potassium 3.8 Chloride 106 Carbon Dioxide 26.0 Anion Gap 7 BUN 19 H Creatinine 1.10 Estim Creat Clear Calc 79.70 Est GFR (MDRD) Af Amer 87 Est GFR (MDRD) Non-Af 72 BUN/Creatinine Ratio 17.3 Glucose 127 H Calcium 8.5 Total Bilirubin 0.40 Direct Bilirubin 0.11 AST 14 L ALT 19 Alkaline Phosphatase 79 Total Protein 7.1 Albumin 3.6 Globulin 3.5 Albumin/Globulin Ratio 1.0 Blood Type O POSITIVE Antibody Screen NEGATIVE Crossmatch See Detail Radiography Diagnostic Testing: Clinical Impression(s) from Imaging Studies Chest/Abdomen/Pelvis CTA 08/17/23 17:07 IMPRESSION: Minor bibasilar interstitial thickening or subsegmental atelectasis. No acute cardiopulmonary pathology Atherosclerotic changes of the thoracic and abdominal aorta without evidence for aneurysm periaortic leak or dissection Postop change status post resection of the rectosigmoid with diverting colostomy in the left lower quadrant . No evidence for small bowel obstruction or other acute abnormality. There is no contrast extravasation within the bowel to suggest site of acute GI hemorrhage at this time However radionuclide tagged red blood cells study would be helpful for further evaluation in this regard if indicated Electronically Signed: Choco Gordon MD at 18:44 EDT , Discharge Plan Triage Chief Complaint: Abn Labs Other Complaint: Shortness of Breath ED Provider: Reid Ponce Dx/Rx/DC Orders Prescriptions: No Action atorvastatin 20 MG tablet 20 mg PO QHS nifedipine 30 MG tablet extended release 30 mg PO DAILY PRN (Reason: raynauds syndrome) Taltz Autoinjector 80 mg/mL auto-injector 80 mg SUBCUT QMONTH rizatriptan 10 mg tablet,disintegrating 10 mg PO PRN PRN (Reason: Migraine Headache) Patient Comments: TAKE 1 TABLET BY MOUTH NEEDED for migraine, may repeat in 2 (TWO) hours if needed fluoxetine 20 mg capsule 20 mg PO DAILY amitriptyline 50 mg tablet 50 mg PO QHS losartan 25 mg tablet 25 mg PO DAILY ondansetron 4 mg tablet,disintegrating 4 mg PO Q8H PRN (Reason: nausea and vomiting) Qty: 10 0RF cyclobenzaprine 10 mg tablet 10 mg PO TID PRN Patient Comments: Take 1 tablet by mouth three times a day as needed for muscle spasm for up to 7 days. oxycodone 5 mg tablet 5 mg PO Q6H PRN (Reason: pain (scale score 4-6)) Patient Comments: Take 1 tablet by mouth every 6 hours as needed for pain for up to 7 days. Xarelto 20 mg tablet 20 mg PO QPM Hold Instructions: Resume on 07/09/23. gabapentin 300 mg capsule 300 mg PO Q12H pantoprazole 40 mg tablet,delayed release (DR/EC) 40 mg PO DAILY Patient Comments: TAKE 1 TABLET BY MOUTH DAILY before BREAKFAST. take on empty stomach 30 MINUTES before meal Niferex (Sumalate-Quatrefolic) 150 mg iron- 60 mg-1 mg tablet 1 tab PO DAILY Qty: 60 0RF oxycodone-acetaminophen 5-325 mg tablet 1 tab PO BID PRN (Reason: pain) Primary Care Provider: Kenroy Larry Referrals: Kenroy Larry MD [Primary Care Provider] -
[2023-08-17 16:27] LABS: Differential Comment SCANNED; Hypochromasia 2+; Polychromasia 1+
[2023-08-17 16:28] LABS: Anisocytosis 1+; Target Cells RARE
--- NOTE | 2023-08-17 17:07 | CT_ITS ---
INDICATION: gi bleed EXAMINATION: CTA CHEST, ABDOMEN AND PELVIS WITH CONTRAST - TECHNIQUE: A CTA of the chest, abdomen, and pelvis is obtained with sagittal and coronal reconstructed MIP views. Three-dimensional surface rendered sequence of the thoracic and abdominal aorta was obtained. A radiation dose optimization technique was used for this scan. mL of Isovue-370. Oral contrast: None. COMPARISON: June 07, 2023 FINDINGS: CT CHEST: THORACIC AORTA: Atherosclerotic changes of the aorta without evidence for aneurysm periaortic leak or dissection. ABDOMINAL AORTA: No aneurysm or dissection. No significant atheromatous disease. The iliac arteries are unremarkable. LUNGS: Minimal subsegmental atelectasis or scarring at the lung bases.. No effusions or pneumothorax. MEDIASTINUM: The thyroid gland is normal. No mediastinal or hilar adenopathy. HEART: Heart is normal size. No pericardial effusion. No CAD. CT ABDOMEN AND PELVIS: LIVER: Nonspecific fatty infiltrated liver. No masses identified. Bile ducts are nondilated GALLBLADDER: The CBD is normal. Normal gallbladder. SPLEEN: Normal. PANCREAS: No masses or inflammation. ADRENAL GLANDS: Normal. KIDNEYS AND URETERS: The kidneys both enhance appropriately. There are normal size and shape. No hydronephrosis or nephrolithiasis. No renal masses or cysts. STOMACH: Normal. SMALL BOWEL: No abnormal distention of the small bowel. MESENTERY: No mesenteric inflammation. No ascites. COLON: No significant diverticulosis, masses or inflammation. Postsurgical changes status post resection of the sigmoid colon with diverting colostomy in the left lower quadrant. APPENDIX: No evidence for acute appendicitis. IVC: Normal. RETROPERITONEUM: No retroperitoneal lymphadenopathy. PELVIC STRUCTURES: Normal bladder. Mild nonspecific prostate enlargement SOFT TISSUE CHEST: The extrathoracic soft tissues are normal. BONES: There are mild degenerative changes of the thoracic and lumbar spines.. CT/CTA Chst, Abd, Pel W and/or WO IMPRESSION: Minor bibasilar interstitial thickening or subsegmental atelectasis. No acute cardiopulmonary pathology Atherosclerotic changes of the thoracic and abdominal aorta without evidence for aneurysm periaortic leak or dissection Postop change status post resection of the rectosigmoid with diverting colostomy in the left lower quadrant . No evidence for small bowel obstruction or other acute abnormality. There is no contrast extravasation within the bowel to suggest site of acute GI hemorrhage at this time However radionuclide tagged red blood cells study would be helpful for further evaluation in this regard if indicated Electronically Signed: Choco Gordon MD at 18:44 EDT ,
[2023-08-17] MEDS: fentaNYL 100 MCG/2 ML Ampul 25 MCG IV ×3 (18:01→22:39)
[2023-08-18] VITALS (21 sets, daily range): BP systolic 89–166; BP diastolic 58–99; PULSE 58–78; RESP 13–20; TEMP 36.4–36.6; O2SAT 95–100; BMI 26.4
[2023-08-18] MEDS: Morphine 4 MG/ML Syringe IV (02:09)
[2023-08-18 05:11] LABS: Absolute Lymphocyte Count 2.19 X10^3/uL (0.83-4.51); Absolute Neutrophil Count 5.9 X10^3/uL (2.0-7.7); Basophil# 0.06 X10^3/uL; Basophil% 0.7 % (0-1); Eosinophil# 0.12 X10^3/uL; Eosinophils% 1.4 % (0-5); Hematocrit 19.8 % (40-54); Hemoglobin 6.2 g/dL (13.0-16.5); Lymphocyte # 2.19 X10^3/ul (0.83-4.51); Lymphocyte % 25.1 % (19-41); Mean Corp Hgb Conc 31.3 g/dL (32-36); Mean Corpuscular Hgb 25.7 pg (27.0-32.0); Mean Corpuscular Volume 82.2 fL (80-94); Mean Platelet Vol. 8.9 fl (6.2-12.0); Monocyte# 0.45 X10^3/uL; Monocyte% 5.1 % (0-10); NRBC Flagged by Analyzer 0.2 % (0-5); Neutrophil # 5.89 X10^3/uL (2.7-7.7); Neutrophil % 67.4 % (47-70); Platelet Count 420 K/mm3 (150-450); RBC Distribution Width CV 16.4 % (11.6-14.6); RBC Distribution Width SD 48.7 fl (35.1-43.9); Red Blood Count 2.41 M/mm3 (4.6-6.2); White Blood Count 8.7 K/mm3 (4.4-11.0)
[2023-08-18 05:38] LABS: Anion Gap 5 (5-15); BUN 18 mg/dL (7-18); BUN/Creat Ratio 19.2 RATIO (10-20); Calcium,Total 8.5 mg/dL (8.5-10.1); Chloride 109 mmol/L (98-107); Creatinine, Serum 0.94 mg/dL (0.70-1.30); EST Glomerular Filtration Rate 87 mL/min (>60); Est Glom Filt Rate - Afr Amer 105 mL/min (>60); Estimated Creatinine Clearance 93.26 ml/min; Glucose 102 mg/dL (74-106); Potassium 3.8 mmol/L (3.5-5.1); Sodium Level 140 mmol/L (136-145)
--- NOTE | 2023-08-18 07:07 | ED.RN ---
CALLED [facility] TRANSFER LINE FOR AN UPDATE REGARDING PT BED STATUS. THE TRANSFER NURSE STATED THERE ARE ONLY A FEW E.R. HOLD AT [place] RIGHT NOW, SO SHE EXPECTS THE PT TO GET A BED LATER IN THE DAY.
[2023-08-18] MEDS: Gabapentin 300 MG Capsule PO ×3 (08:16→23:25)
[2023-08-18] MEDS: HYDROcodone Bitartrate/Apap 5/325 Tablet PO (08:44)
--- NOTE | 2023-08-18 10:17 | ED.RN ---
called in talking to supervisor testing bisi about pt still that cant eat or drink anything. hanane rock aware and working with on updates
[2023-08-18 10:37] LABS: Pathologist Review Reviewed
[2023-08-18 11:07] LABS: Hematocrit 19.6 % (40-54); Hemoglobin 6.1 g/dL (13.0-16.5)
[2023-08-18] MEDS: tiZANidine HCl 2 MG Tablet 4 MG PO (12:06)
--- NOTE | 2023-08-18 12:16 | ED.RN ---
This RN in room to administer medications. asking about when hospital advocate would be stopping in. This RN informed that advocate was in a meeting but would be stopping in as soon as possible. asked if advocate could call her instead. (Radha Maldonado) would like a phone call at [phone].
--- NOTE | 2023-08-18 13:52 | HP.PCM.HOS_ITS ---
HPI - General General Date of Admission: 08/18/23 Date of Service: 08/18/23 Chief Complaint: Dyspnea, fatigue, dark output from ostomy. HPI Narrative The patient is a 62 y/o M w/ PMHx: EtOH abuse, Former tobacco use, Chronic neuropathy, Anxiety and Depression, HTN, HLD, Chronic migraines, GERD, PAD s/p femoral-popliteal bypass with limb ischemia w/ right above-knee popliteal to posterior tibial bypass with reversed right saphenous vein and ligation of prior femoropopliteal trunk bypass on 05/14/2023 at [facility] ith still intact previous bypass in the leg with chronic swelling associated as well as chronic numbness/paresthesias which is unchanged, Psoriasis, Hx perforated diverticulitis requiring colostomy, Hx GI bleed w/ upper and lower as well as capsule endoscopies unremarkable per Dr. Reyes with reportedly being back on his NOAC for approximately 1 month with onset of dark black stools in his colostomy bag with no specific abdominal pain, no coffee-ground emesis or hematemesis nor any fevers or chills with weakness, mild dyspnea and lightheadedness with activity attempts prompting ED evaluation. Workup in the ED included initial presentation 08/17/2023 with T96.9, heart rate 85, BP 130/58, respiratory rate 18, 100% on room air with most recent repeat vital signs heart rate 73, BP 139/99, respiratory rate 16, 99% on room air, initial presentation ED CBC with WBC 8.1, hemoglobin 4.7, MCV 81.8, platelet 430 without marked shift, BMP with glucose 127, hepatic profile unremarkable administered 2 unit PRBC administration with follow-up 08/18/2019 4 repeat labs notable for WBC 8.7, hemoglobin 6.2 with confirmation 6.1, MCV 82.2, platelet 420 without marked shift, BMP with chloride 109 otherwise unremarkable, CTA chest, abdomen and pelvis with minor basilar interstitial thickening or subsegmental atelectasis, no acute cardiopulmonary findings, atherosclerotic changes of the thoracic and abdominal aorta without evidence of aneurysmal periaortic leak or dissection, postop changes status postresection rectosigmoid with diverting colostomy in the left lower quadrant, no evidence of bowel obstruction, no contrast extravasation within the bowel in the ED patient administered tizanidine 4 mg p.o. x 1, morph ine 4 mg IV x 1, [place] 2 tab p.o., fentanyl 25 mcg IV x 3 doses, 1 L normal saline as well as continued patient home 300 mg p.o. 3 times daily gabapentin. ED discussed case with gastroenterology who recommended transfer given his recent evaluation and inability to see anything with potential need for more aggressive evaluation of the small bowel. Patient was accepted at [facility] but is still awaiting a bed. COUNT INCLUDES [facility] Medical History (Updated 08/18/23 @ 14:[address] Staci Harris MD) Alcohol abuse Anticoagulant long-term use Arthritis Chronic anemia Diverticulitis of colon with perforation Former tobacco use GERD (gastroesophageal reflux disease) Heart murmur History of GI bleed HLD (hyperlipidemia) Hypertension PAD (peripheral artery disease) Polycythemia Psoriasis Vertigo Home Medications atorvastatin 20 mg tablet 40 mg PO QHS cholesterol 09/17/15 [History Last Taken 06/18/23] nifedipine 30 mg tablet,extended release 30 mg PO DAILY PRN raynauds syndrome 09/17/15 [History Last Taken Unknown] fluoxetine 20 mg capsule 20 mg PO DAILY mental health 09/20/20 [History Last Taken 06/18/23] ixekizumab 80 mg/mL subcutaneous auto-injector (Taltz Autoinjector) 80 mg subcut QMONTH skin health 09/20/20 [History Last Taken 05/24/23] rizatriptan 10 mg disintegrating tablet 10 mg PO PRN PRN Migraine Headache 09/20/20 [History Last Taken Unknown] amitriptyline 50 mg tablet 25 mg PO BID mental health 01/17/22 [History Last Taken 06/18/23] losartan 25 mg tablet 25 mg PO DAILY blood pressure 01/17/22 [History Last Taken 06/18/23] ondansetron 4 mg disintegrating tablet 4 mg PO Q8H PRN nausea and vomiting #10 tabs 01/17/22 [Rx Last Taken Unknown] cyclobenzaprine 10 mg tablet 10 mg PO TID PRN muscle spasms 06/07/23 [History Last Taken Unknown] gabapentin 300 mg capsule 300 mg PO Q8H neuropathy/nerve pain 06/07/23 [History Last Taken 06/18/23] pantoprazole 40 mg tablet,delayed release 40 mg PO DAILY heart burn 06/07/23 [History Last Taken 06/18/23] rivaroxaban 20 mg tablet (Xarelto) 20 mg PO QPM blood thinner 06/07/23 [History Last Taken 06/18/23 22:00] iron 150 mg-vit C 60 mg-folate 1 [id number] tablet (Niferex (Sumalate-Quatrefolic)) 1 tab PO DAILY supplement #60 tabs 06/10/23 [Rx Last Taken 06/18/23] oxycodone-acetaminophen 5 mg-325 mg tablet 1 tab PO BID PRN pain 06/19/23 [History Last Taken 06/19/23] aspirin 81 mg chewable tablet 1 tab PO QPM 08/18/23 [History Last Taken Unknown] hydrocodone-acetaminophen 5-325mg 5mg-325mg 1 tab PO BID 08/18/23 [History Last Taken Unknown] Allergy/AdvReac Type Severity Reaction Status Date / Time verapamil Allergy Rash Verified 08/17/23 15:32 Family History (Updated 08/18/23 @ 14:[address] Staci Harris MD) Mother Heart disease Hypertension Father Diabetes Surgical History (Updated 08/18/23 @ 14:[address] Staci Harris MD) History of creation of ostomy History of vascular surgery Hx of cardiac catheterization S/P partial colectomy Social History (Updated 08/18/23 @ 14:[address] Staci Harris MD) household members: spouse Smoking Status: Former smoker how long ago did patient quit smoking: Quit 04/2023. alcohol intake: current alcohol intake frequency: 3 or more drinks per day Alcohol type: beer and hard liquor details: At least 3 beers (12 oz)/night, occasionally also Paul/Coke. substance use type: does not use ROS ROS Narrative Admission Review of Systems: CONSTITUTIONAL: No weight loss, fever, chills, + weakness or fatigue. HEENT: + Lightheadedness, dizziness. Eyes: No visual loss, blurred vision, double vision or yellow sclerae. Ears, Nose, Throat: No hearing loss, sneezing, congestion, runny nose or sore throat. SKIN: No rash or itching, lesions, wounds except + staged ecchymoses, occasional abrasion, venous stasis skin changes. CARDIOVASCULAR: + Chronic edema. No chest pain, chest pressure or chest discomfort, palpitations, orthopnea, syncopal events. RESPIRATORY: + Dyspnea, worse with exertion. No cough or sputum, wheezing, hemoptysis. GASTROINTESTINAL: + Black stool from ostomy. No anorexia, nausea, vomiting, BRBPR. GENITOURINARY: No dysuria, frequency, urgency or retention. NEUROLOGICAL: + Chronic migraine headaches, Recent lightheadedness/dizziness.No syncope, paralysis, ataxia, numbness or tingling in the extremities, focal weakness, change in bowel or bladder control, seizure. MUSCULOSKELETAL: + muscle, back pain, joint pain or stiffness. HEMATOLOGIC: + Acute on chronic anemia, active bleeding is noted. Easy bruising. LYMPHATICS: No enlarged nodes. No history of splenectomy. PSYCHIATRIC: + History of anxiety and depression. ENDOCRINOLOGIC: No reports of sweating, cold or heat intolerance. No polyuria or polydipsia. ALLERGIES: No history of asthma, hives, eczema or rhinitis. Vital Signs Vital Signs Vital Signs: 08/17/23 15:32 08/17/23 15:38 08/17/23 15:38 Temperature 96.9 F L Temperature Source Temporal Pulse Rate 85 77 Respiratory Rate 18 19 H Respiratory Effort Normal Non-Labored Respiratory Depth Respiratory Pattern Normal Blood Pressure 130/58 H 124/64 H Blood Pressure Mean 82 84 Blood Pressure Source Blood Pressure Position Blood Pressure Location Pulse Ox 100 100 Oxygen Delivery Method Room Air Room Air 08/17/23 15:38 08/17/23 16:05 08/17/23 16:30 Temperature Temperature Source Pulse Rate 87 84 Respiratory Rate 25 H 17 Respiratory Effort Normal Non-Labored Respiratory Depth Normal Respiratory Pattern Normal Blood Pressure 140/58 H Blood Pressure Mean 82 Blood Pressure Source Blood Pressure Position Blood Pressure Location Pulse Ox 100 Oxygen Delivery Method Room Air 08/17/23 17:00 08/17/23 17:17 08/17/23 17:32 Temperature 97.7 F L 98.9 F Temperature Source Oral Oral Pulse Rate 82 73 81 Respiratory Rate 15 19 H 17 Respiratory Effort Respiratory Depth Respiratory Pattern Blood Pressure 139/65 H 109/84 H 132/68 H Blood Pressure Mean 85 92 89 Blood Pressure Source Monitor Monitor Blood Pressure Position Supine Sitting Blood Pressure Location Left Forearm Pulse Ox 100 98 100 Oxygen Delivery Method Room Air Room Air 08/17/23 17:30 08/17/23 18:00 08/17/23 18:15 Temperature Temperature Source Pulse Rate 81 86 Respiratory Rate 19 H 18 Respiratory Effort Respiratory Depth Respiratory Pattern Blood Pressure 132/68 H 128/63 H 152/98 H Blood Pressure Mean 84 85 109 Blood Pressure Source Blood Pressure Position Blood Pressure Location Pulse Ox 100 Oxygen Delivery Method 08/17/23 18:17 08/17/23 18:30 08/17/23 19:00 Temperature Temperature Source Pulse Rate 76 82 79 Respiratory Rate 26 H 24 H 24 H Respiratory Effort Respiratory Depth Respiratory Pattern Blood Pressure 129/57 H 123/63 H Blood Pressure Mean 79 78 Blood Pressure Source Blood Pressure Position Blood Pressure Location Pulse Ox 100 99 100 Oxygen Delivery Method 08/17/23 18:32 08/17/23 19:30 08/17/23 19:20 Temperature 98.7 F 97.9 F Temperature Source Temporal Oral Pulse Rate 78 68 71 Respiratory Rate 15 20 H 18 Respiratory Effort Respiratory Depth Respiratory Pattern Blood Pressure 117/68 117/66 138/70 H Blood Pressure Mean 84 83 92 Blood Pressure Source Monitor Monitor Blood Pressure Position Semi-Fowlers Sitting Blood Pressure Location Right Arm Right Arm Pulse Ox 100 100 100 Oxygen Delivery Method Room Air Room Air Room Air 08/17/23 19:55 08/17/23 20:10 08/17/23 21:00 Temperature 98.1 F 97.8 F 97.8 F Temperature Source Oral Oral Oral Pulse Rate 71 64 64 Respiratory Rate 18 16 18 Respiratory Effort Respiratory Depth Respiratory Pattern Blood Pressure 131/72 H 130/65 H 130/65 H Blood Pressure Mean 91 86 86 Blood Pressure Source Monitor Monitor Blood Pressure Position Sitting Semi-Fowlers Blood Pressure Location Right Arm Right Arm Pulse Ox 98 100 100 Oxygen Delivery Method Room Air Room Air Room Air 08/17/23 22:07 08/17/23 22:08 08/18/23 00:00 Temperature 98.1 F 97.7 F L Temperature Source Oral Temporal Pulse Rate 74 72 66 Respiratory Rate 14 16 19 H Respiratory Effort Respiratory Depth Respiratory Pattern Blood Pressure 140/62 H 130/65 H 137/72 H Blood Pressure Mean 88 86 93 Blood Pressure Source Monitor Blood Pressure Position Semi-Fowlers Blood Pressure Location Right Arm Pulse Ox 100 100 100 Oxygen Delivery Method Room Air Room Air Room Air 08/18/23 01:00 08/18/23 02:00 08/18/23 03:00 Temperature Temperature Source Pulse Rate 68 78 74 Respiratory Rate 15 16 13 Respiratory Effort Respiratory Depth Respiratory Pattern Blood Pressure 133/60 H 128/69 H 166/71 H Blood Pressure Mean 84 88 102 Blood Pressure Source Blood Pressure Position Blood Pressure Location Pulse Ox 100 100 98 Oxygen Delivery Method Room Air Room Air Room Air 08/18/23 04:00 08/18/23 05:00 08/18/23 05:52 Temperature Temperature Source Pulse Rate 73 66 73 Respiratory Rate 17 16 20 H Respiratory Effort Respiratory Depth Respiratory Pattern Blood Pressure 134/70 H 146/70 H 146/70 H Blood Pressure Mean 91 95 95 Blood Pressure Source Blood Pressure Position Blood Pressure Location Pulse Ox 96 95 97 Oxygen Delivery Method Room Air Room Air Room Air 08/18/23 06:59 08/18/23 08:18 08/18/23 10:00 Temperature Temperature Source Pulse Rate 69 72 78 Respiratory Rate 19 H 16 17 Respiratory Effort Respiratory Depth Respiratory Pattern Blood Pressure 140/69 H 132/65 H 140/79 H Blood Pressure Mean 92 87 99 Blood Pressure Source Blood Pressure Position Blood Pressure Location Pulse Ox 97 96 95 Oxygen Delivery Method Room Air Room Air Room Air 08/18/23 11:00 08/18/23 12:00 08/18/23 13:25 Temperature Temperature Source Pulse Rate 78 73 71 Respiratory Rate 17 16 16 Respiratory Effort Respiratory Depth Respiratory Pattern Blood Pressure 146/68 H 139/99 H 98/58 L Blood Pressure Mean 94 112 71 Blood Pressure Source Blood Pressure Position Blood Pressure Location Pulse Ox 97 99 98 Oxygen Delivery Method Room Air Room Air Weight Weight: 201 lb Body Mass Index (BMI) 26.5 Physical Exam Narrative Physical Examination: General: Awake, alert, oriented x 3 and cooperative, seated upright in the ED bed, fatigued. Skin: Mildly pale color, normal turgor, no icterus, no cyanosis with noted bilateral lower extremity venous stasis skin changes, occasional staged ecchymo ses, abrasion HEENT: AT/NC, EOMI, PERRLA, moderately dry MM, no carotid bruits or JVD noted. Lungs: Mildly diminished, greater bases, proper effort, no rales, ronchi or wheezing. Heart: Regular rate and rhythm; no gallop, rub audible. Abdomen: Soft, NTTP, ostomy intact with no output in the bag but he notes he just changed it and described it as black in appearance and toothpaste texture stool, no marked distention discerned, mildly hyperactive BS, no appreciated HSM. Extremities: No cyanosis, no clubbing, chronic lower extremity pedal to knee edema, stasis skin changes noted, status post right lower extremity revision femoropopliteal history as noted. Neurological: Patient awake, alert, oriented as noted, cognitive function intact; pupils equally reactive to light and accommodation, cranial nerves grossly normal, moving all 4 extremities, strength moderately to severely global decrease secondary to acute presentation. Psychiatric: Affect appears mildly flat, fatigued, no acute evidence of depressive or anxiety feelings but does have underlying history. Results Lab / Micro Data 08/18/23 10:55 08/18/23 05:00 Labs: Laboratory Results - last 24 hr 08/17/23 15:55: WBC 8.1, RBC 2.03 L, Hgb 4.7 L*, Hct 16.6 L, MCV 81.8, MCH 23.2 L, MCHC 28.3 L, RDW Std Deviation 50.7 H, RDW Coeff of Eze 17.0 H, Plt Count 430, MPV 8.7, Immature Gran % (Auto) 0.500, Neut % (Auto) 72.1 H, Lymph % (Auto) 21.5, [place] % (Auto) 3.9, Eos % (Auto) 1.4, Baso % (Auto) 0.6, Absolute Neuts (auto) 5.9, Absolute Lymphs (auto) 1.74, Nucleated RBC % 0.4, Differential Comment SCANNED, Diff Path Review Reviewed, Polychromasia 1+, Hypochromasia 2+, Anisocytosis 1+, Target Cells RARE, Sodium 139, Potassium 3.8, Chloride 106, Carbon Dioxide 26.0, Anion Gap 7, BUN 19 H, Creatinine 1.10, Estim Creat Clear Calc 79.70, Est GFR (MDRD) Af Amer 87, Est GFR (MDRD) Non-Af 72, BUN/Creatinine Ratio 17.3, Glucose 127 H, Calcium 8.5, Total Bilirubin 0.40, Direct Bilirubin 0.11, AST 14 L, ALT 19, Alkaline Phosphatase 79, Total Protein 7.1, Albumin 3.6, Globulin 3.5, Albumin/Globulin Ratio 1.0, Blood Type O POSITIVE, Antibody Screen NEGATIVE, Crossmatch See Detail 08/18/23 05:00: WBC 8.7, RBC 2.41 L, Hgb 6.2 L, Hct 19.8 L, MCV 82.2, MCH 25.7 L , MCHC 31.3 L D, RDW Std Deviation 48.7 H, RDW Coeff of Eze 16.4 H, Plt Count 420, MPV 8.9, Immature Gran % (Auto) 0.300, Neut % (Auto) 67.4, Lymph % (Auto) 25.1, [place] % (Auto) 5.1, Eos % (Auto) 1.4, Baso % (Auto) 0.7, Absolute Neuts (auto) 5.9, Absolute Lymphs (auto) 2.19, Nucleated RBC % 0.2, Sodium 140, Potassium 3.8, Chloride 109 H, Carbon Dioxide 26.0, Anion Gap 5, BUN 18, Creatinine 0.94, Estim Creat Clear Calc 93.26, Est GFR (MDRD) Af Amer 105, Est GFR (MDRD) Non-Af 87, BUN/Creatinine Ratio 19.2, Glucose 102, Calcium 8.5 08/18/23 10:55: Hgb 6.1 L, Hct 19.6 L Micro: Microbiology 08/17/23 16:05 Stool Stool Occult Blood (VENKATA) - Final Occult Blood Positive Imaging Radiology Impression Chest/Abdomen/Pelvis CTA 08/17/23 17:07 IMPRESSION: Minor bibasilar interstitial thickening or subsegmental atelectasis. No acute cardiopulmonary pathology Atherosclerotic changes of the thoracic and abdominal aorta without evidence for aneurysm periaortic leak or dissection Postop change status post resection of the rectosigmoid with diverting colostomy in the left lower quadrant . No evidence for small bowel obstruction or other acute abnormality. There is no contrast extravasation within the bowel to suggest site of acute GI hemorrhage at this time However radionuclide tagged red blood cells study would be helpful for further evaluation in this regard if indicated Electronically Signed: Choco Gordon MD at 18:44 EDT , Assessment & Plan Assessment/Plan (1) GI bleed: PLAN: Plan The patient is a 62 y/o M w/ PMHx: EtOH abuse, Former tobacco use, Chronic neuropathy, Anxiety and Depression, HTN, HLD, Chronic migraines, GERD, PAD s/p femoral-popliteal bypass with limb ischemia w/ right above-knee popliteal to posterior tibial bypass with reversed right saphenous vein and ligation of prior femoropopliteal trunk bypass on 05/14/2023 at [facility] ith still intact previous bypass in the leg with chronic swelling associated as well as chronic numbness/paresthesias which is unchanged, Psoriasis, Hx perforated diverticulitis requiring colostomy, Hx GI bleed w/ upper and lower as well as capsule endoscopies unremarkable per Dr. Reyes with reportedly being back on his NOAC for approximately 1 month with onset of dark black stools in his colostomy bag with no specific abdominal pain, no coffee-ground emesis or hematemesis nor any fevers or chills with weakness, mild dyspnea and lightheadedness with activity attempts prompting ED evaluation. #1. Acute GI Bleed w/ resultant Acute Blood Loss Anemia: Initial ED hemoglobin 4.7 with PRBC administration with repeat 6.2 and confirmation 6.1, and additiona l 2 unit PRBC ordered per ED physician, given still awaiting tertiary bed for more aggressive evaluation of the small bowel per gastroenterology recommendation will in the interim temporarily admit to medical surgical floor given stable vital signs, will maintain on judicious fluids pending additional PRBC administration, will continue to obtain serial H&H's, will allow clears with n.p.o. status at midnight per patient and family strong preference, will maintain on IV PPI, given EtOH abuse to be cautious will maintain on IV rocephin although no marked cirrhotic appearance on imaging prior but continue pending GI evaluation. Will request GI consultation while at [facility] un til transfer has been completed. #2. PAD: PAD s/p femoral-popliteal bypass with limb ischemia w/ right above- knee popliteal to posterior tibial bypass with reversed right saphenous vein and ligation of prior femoropopliteal trunk bypass on 05/14/2023 at [facility] ith still intact previous bypass in the leg with chronic swelling associated as well as chronic numbness/paresthesias which is unchanged, had as noted recently restarted Xarelto over the last month, given recent intervention and revision we will continue to hold Xarelto but will continue ASA 81 mg daily which was discussed with Dr. Hernandez. Additionally, will request RLE arterial duplex and RLE SAVANNA studies. #3. Hypertension: Given presentation with normal range BPs with significant acute blood loss anemia we will hold patient hypertensive regimen and resume once clinically appropriate. #4. Hyperlipidemia: Will continue statin therapy. #5. Anxiety and depression: We will continue patient home amitriptyline and f luoxetine home regimen. #6. Psoriasis: Patient with monthly ixekizuman injections, encourage continued outpatient follow-up as previously arranged. #7. Chronic migraines: Outpatient patient uses rizatriptan regimen as needed, will hold unless necessary. #8. Former tobacco use: Encourage continued tobacco cessation. #9. Chronic neuropathy: Will continue patient home gabapentin regimen. #10. GERD: As noted will maintain on IV PPI. #11. EtOH Abuse: Patient notes routine consumption of at least 3, 12 ounce beers and occasionally Paul and Coke per day. Discussed alcoholism and strongly encouraged decreased alcohol intake/sobriety especially given GI bleed history. Will maintain on CIWA protocol, MVI, thiamine and folic acid. Case management consulted. #12. DVT prophylaxis: Holding patient home Xarelto per discussion with Dr. Hernandez. Will maintain on asa only cautiously. #13. CODE status: Patient HCPOA and LW are no in place but patient notes his would be his decision maker if necessary. Discussed CODE status at length including difference between FULL code, DNR-CCA and DNR-CC status. Following discussions about the differences in these status, requested Full Code status. Advanced Care Planning Face to Face Time: 16 minutes. Charges/Coding Visit Charges Inpatient E&M: 90561 Init Hosp L3 Procedures Hospitalists Procedures: 90664 Advncd Care Plan 30 Min
--- NOTE | 2023-08-18 16:10 | ART_ITS ---
Reason For Study: S/P Rt Fem-Pop Bypass Procedure A bilateral lower extremity continuous wave Doppler with analog waveform analysis and ankle brachial indexes. Left Segmental Pressures Left posterior tibial artery = 161mmHg. Left dorsalis pedis artery = 132mmHg. The left posterior tibial artery waveforms are biphasic. The left dorsalis pedis waveforms are biphasic. Right Segmental Pressures Right brachial= 141mmHg. Right posterior tibial artery = 141mmHg. Right dorsalis pedis artery = 136mmHg. The right posterior tibial artery waveforms are biphasic. The right dorsalis pedis waveforms are biphasic. Indices The right ankle brachial index by the posterior tibial artery is 1.00. The right ankle brachial index by the dorsalis pedis is 0.96. The left ankle brachial index by the posterior tibial artery is 1.14. The left ankle brachial index by the dorsalis pedis is 0.94. VL/Ankle Brachial Index Interpretation Summary Right SAVANNA 1.0, normal. Doppler/PVR waveforms of the right ankle mildly diminish ed at rest. Left SAVANNA 1.14, normal. Doppler/PVR waveforms of the left ankle mildly diminishe d at rest. Ordering Physician: Staci Harris Referring Physician: Kenroy Larry Performed By: Velasquez Chamberlain RVT
--- NOTE | 2023-08-18 16:10 | ADUL_ITS ---
Reason For Study: S/P Rt Fem-Pop Bypass Right Velocities Ext. Iliac Artery, dist = 146.7 cm./sec. Common Femoral Artery, mid = 164.5 cm./sec. Supf Femoral Artery, prox = 222.7 cm./sec. Profunda Femoral Artery = 233.9 cm./sec. SFA mid, Prox to bypass, 187.2 cm/sec. Prox anastomosis, 510 cm/sec. Prox bypass, 173.3 cm/sec. Prox bypass, 412.9 cm/sec. Mid bypass, 124.2 cm/sec. Distal bypass, 128.6 cm/sec. Distal anastomosis, 144 cm/sec. CYCLE LIAISON prox, Dist to bypass, 135.2 cm/sec. Post. Tibial Artery, mid = 130.8 cm./sec. Post. Tibial Artery, dist = 155 cm./sec. Peroneal artery, No flow throughout. Ant. Tibial Artery, prox = 34.6 cm./sec. Ant. Tibial Artery, mid = 23.5 cm./sec. Ant. Tibial Artery, dist = 12.9 cm./sec. /US Art Duplex Unilat Lower Ext Interpretation Summary Patent right SFA-PT bypass with stenosis of proximal anastomosis, preserved fredo ocities throughout graft. Ordering Physician: Staci Harris Referring Physician: logan Larry Performed By: Isabel Levine RVT
[2023-08-18] MEDS: Ceftriaxone 1 GM/50 ML BAG IV (17:30)
[2023-08-18] MEDS: Aspirin 81 MG TAB.CHEW PO (17:54)
[2023-08-18] MEDS: Morphine 2 MG/ML Syringe IV (17:54)
[2023-08-18] MEDS: Pantoprazole Sodium 80 MG in 0.9% Normal Saline (50mL Bag) 15 ML 420 MG IV BOLUS (18:05)
[2023-08-18] MEDS: Pantoprazole Sodium 80 MG in 0.9% Normal Saline (100mL Bag) 80 ML 10 MG CONT INF (18:42)
[2023-08-18] MEDS: oxyCODONE 5 MG Tablet PO (18:43)
[2023-08-18] MEDS: Acetaminophen 325 MG Tablet 650 MG PO (18:43)
[2023-08-18] MEDS: Atorvastatin Calcium 40 MG Tablet PO (23:08)
[2023-08-18] MEDS: Amitriptyline 25 MG Tablet PO (23:08)
[2023-08-19] VITALS (9 sets, daily range): BP systolic 110–158; BP diastolic 59–72; PULSE 54–68; RESP 14–20; TEMP 35.9–36.6; O2SAT 94–100; BMI 26.4
[2023-08-19] MEDS: Acetaminophen 325 MG Tablet 650 MG PO ×2 (00:53→21:23)
[2023-08-19] MEDS: oxyCODONE 5 MG Tablet PO ×2 (00:53→21:22)
[2023-08-19] MEDS: 0.9% Normal Saline (1000mL) 1,000 ML 75 ML IV ×2 (01:32→14:07)
[2023-08-19 03:05] LABS: Hematocrit 25.1 % (40-54); Hemoglobin 7.8 g/dL (13.0-16.5)
[2023-08-19] MEDS: Pantoprazole Sodium 80 MG in 0.9% Normal Saline (100mL Bag) 80 ML 10 MG CONT INF ×2 (05:02→16:06)
[2023-08-19] MEDS: Gabapentin 300 MG Capsule PO ×3 (06:45→21:23)
--- NOTE | 2023-08-19 07:58 | PN.HOSP_ITS ---
Reason for Visit Reason for Visit: Diagnoses Gastrointestinal hemorrhage, unspecified (08/18/23) Subjective Subjective Feeling well. No blood in stools or dark tarry stools at this time. Objective Data Objective Data Vital Signs: Vital Signs Temp Pulse Resp BP Pulse Ox O2 Del Method 36.3 C L 62 20 H 158/68 H 97 Room Air 08/19/23 06:42 08/19/23 06:42 08/19/23 06:42 08/19/23 06:42 08/19/23 06:42 08/19/23 06:42 Oxygen Delivery Method Room Air Weight: 90.7 kg Body Mass Index (BMI) 26.4 Intake & Output: Intake and Output for Last 24 Hours 08/17/23 08/18/23 08/19/23 23:59 23:59 23:59 Intake Total 1001 / 1001 85 / 85 101 / 101 Output Total 1075 / 1075 Balance 1001 / 1001 85 / -315 -974 / -974 Lab / Micro Data 08/19/23 14:16 08/19/23 06:55 Labs: Laboratory Results - last 24 hr 08/17/23 15:55: Diff Path Review Reviewed, Crossmatch See Detail 08/18/23 10:55: Hgb 6.1 L, Hct 19.6 L 08/19/23 02:50: Hgb 7.8 L, Hct 25.1 L Micro: Microbiology 08/17/23 16:05 Stool Stool Occult Blood (VENKATA) - Final Occult Blood Positive Physical Exam Const alert and no apparent distress HEENT head/scalp atraumatic and moist oral mucous membranes Resp normal respiratory effort, no retractions, no use of accessory muscles and clear to auscultation bilaterally Cardio regular rate, regular rhythm, S1 normal heart sound and S2 normal heart sound GI normal to inspection, nondistended, normoactive bowel sounds GI Narrative: Colostomy left lower quadrant without any stool. Neuro Sensorium / Orientation: awake and alert Assessment & Plan Assessment/Plan (1) GI bleed: PLAN: Plan Acute GI Bleed * blood in colostomy * concern for area in small bowel by GI * GI recommending TF to tertiary facility. * Pt accepted by [facility]. * on pantoprazole gtt ABLA * 2/2 GIB * admission hg 4.7, improved after 3 units. * Monitor Chronic conditions: * PAD: PAD s/p femoral-popliteal bypass with limb ischemia w/ right above-knee popliteal to posterior tibial bypass with reversed right saphenous vein and li gation of prior femoropopliteal trunk bypass on 05/14/2023 at [facility] ith still intact previous bypass in the leg with chronic swelling associated as well as chronic numbness/paresthesias which is unchanged, had as noted recently restarted Xarelto over the last month, given recent intervention and revision we will continue to hold Xarelto but will continue ASA 81 mg daily which was discussed with Dr. Hernandez. Additionally, will request RLE arterial duplex and RLE SAVANNA studies. * Hypertension: Given presentation with normal range BPs with significant acute blood loss anemia we will hold patient hypertensive regimen and resume once clinically appropriate. * Hyperlipidemia: Will continue statin therapy. * Anxiety and depression: We will continue patient home amitriptyline and fluoxetine home regimen. * Psoriasis: Patient with monthly ixekizuman injections, encourage continued outpatient follow-up as previously arranged. * Chronic migraines: Outpatient patient uses rizatriptan regimen as needed, will hold unless necessary. * Former tobacco use: Encourage continued tobacco cessation. * Chronic neuropathy: Will continue patient home gabapentin regimen. * GERD: As noted will maintain on IV PPI. * EtOH Abuse: Patient notes routine consumption of at least 3, 12 ounce beers and occasionally Paul and Coke per day. Discussed alcoholism and strongly encouraged decreased alcohol intake/sobriety especially given GI bleed history. Will maintain on CIWA protocol, MVI, thiamine and folic acid. Case management consulted. DVT prophylaxis: Holding patient home Xarelto per discussion with Dr. Hernandez. Will maintain on asa only cautiously. CODE status: Full Charges/Coding Visit Charges Inpatient E&M: 96834 Subs Hosp L2
[2023-08-19 08:22] LABS: Absolute Lymphocyte Count 2.09 X10^3/uL (0.83-4.51); Absolute Neutrophil Count 4.8 X10^3/uL (2.0-7.7); Basophil# 0.06 X10^3/uL; Basophil% 0.8 % (0-1); Eosinophil# 0.22 X10^3/uL; Eosinophils% 2.9 % (0-5); Hematocrit 22.3 % (40-54); Lymphocyte # 2.09 X10^3/ul (0.83-4.51); Lymphocyte % 27.7 % (19-41); Mean Corp Hgb Conc 31.4 g/dL (32-36); Mean Corpuscular Hgb 26.2 pg (27.0-32.0); Mean Corpuscular Volume 83.5 fL (80-94); Mean Platelet Vol. 9.2 fl (6.2-12.0); Monocyte# 0.38 X10^3/uL; NRBC Flagged by Analyzer 0 % (0-5); Neutrophil # 4.76 X10^3/uL (2.7-7.7); Neutrophil % 63.2 % (47-70); Platelet Count 392 K/mm3 (150-450); RBC Distribution Width CV 16.6 % (11.6-14.6); RBC Distribution Width SD 50.9 fl (35.1-43.9); Red Blood Count 2.67 M/mm3 (4.6-6.2); White Blood Count 7.5 K/mm3 (4.4-11.0)
--- NOTE | 2023-08-19 08:27 | NURSING ---
I spoke wit [facility] transfer line and they stated pt is on the wait list for [facility] however they do not have a bed at this time they are hoping to have one this afternoon.
[2023-08-19] MEDS: Folic Acid 1 MG Tablet PO (08:45)
[2023-08-19] MEDS: Thiamine Hydrochloride 100 MG Tablet PO (08:45)
[2023-08-19] MEDS: Amitriptyline 25 MG Tablet PO ×2 (08:45→21:23)
[2023-08-19] MEDS: Multivitamins,Ther W-Minerals Tablet 1 TABLET PO (08:45)
[2023-08-19] MEDS: FLUoxetine 20 MG Capsule PO (08:45)
[2023-08-19] MEDS: Ceftriaxone 1 GM/50 ML BAG IV (08:49)
[2023-08-19 09:41] LABS: AST(SGOT) 20 U/L (15-37); Alanine Aminotransfer ALT/SGPT 21 U/L (16-61); Albumin, Serum 3.1 g/dL (3.2-5.0); Alkaline Phosphatase 71 U/L (45-117); Anion Gap 6 (5-15); BUN 15 mg/dL (7-18); BUN/Creat Ratio 15.8 RATIO (10-20); Calcium,Total 8.5 mg/dL (8.5-10.1); Chloride 110 mmol/L (98-107); Creatinine, Serum 0.95 mg/dL (0.70-1.30); EST Glomerular Filtration Rate 86 mL/min (>60); Est Glom Filt Rate - Afr Amer 104 mL/min (>60); Estimated Creatinine Clearance 92.28 ml/min; Globulin 3.2 g/dL (2.2-4.2); Glucose 92 mg/dL (74-106); Potassium 3.6 mmol/L (3.5-5.1); Protein, Total 6.3 g/dL (6.4-8.2); Sodium Level 139 mmol/L (136-145)
[2023-08-19 10:33] LABS: Hematocrit 23.7 % (40-54); Hemoglobin 7.6 g/dL (13.0-16.5)
[2023-08-19] MEDS: 0.9% Saline Lock 10 ML Syringe IV (11:14)
[2023-08-19] MEDS: Morphine 2 MG/ML Syringe IV (11:14)
[2023-08-19 14:24] LABS: Hemoglobin 7.7 g/dL (13.0-16.5)
[2023-08-19] MEDS: Aspirin 81 MG TAB.CHEW PO (16:07)
--- NOTE | 2023-08-19 16:47 | CON.PCM.SX_ITS ---
Assessment & Plan Assessment/Plan (1) GI bleed: (2) S/P femoral-popliteal bypass surgery: (3) Peripheral vascular disease: PLAN: Plan The arterial duplex did show proximal stenosis in the bypass; however, [place] are adequate through the rest of the bypass and he has normal flow through the rest of the leg with normal SAVANNA. This stenosis may need addressed at some point in the future, but continued anemia is of greater risk to the bypass than holding anticoagulation at this time. Okay to continue to hold Xarelto. Would recommend continuing ASA 81mg if possible. Plan is for transfer to [facility] once a bed is available. Will continue to follow while he is here. HPI Consult Data Date of Consult: 08/19/23 HPI Narrative HPI Narrative: SALBADOR FARNSWORTH, is a 62 M who presented to the [facility] ER on 08/18/23 with dark stools in his colostomy bag and was found to have a Hgb of 4. This has improved to 7.7 today after [address] Reyes had seen the patient in prior admissions and as an outpatient and recommend transfer to a tertiary care [facility]. He has been accepted by [facility] but is still waiting on a bed. In October 2022, he had a R fem-pop bypass with PTFE in [place] which subsequently failed prompting R above-knee popliteal to PT bypass with [place] vein at [facility] by Dr. Damian Gunn in May. He did have a similar episode of GI bleeding in June during which his anticoagulants were held but he did end up restarting this recently. He reports that 3 weeks ago he had an angiogram with bypass angioplasty. He has been on Xarelto 20mg daily and ASA 81mg daily as an outpatient. We are consulted regarding the anticoagulant regimen in the setting of his GI bleed. He had arterial studies today which showed a patent right SFA-PT bypass with stenosis of the proximal anastomosis but preserved velocities throughout. R SAVANNA 1.0 and L SAVANNA 1.14. [facility] Medical History (Updated 08/18/23 @ 14:[address] Staci Harris MD) Alcohol abuse Anticoagulant long-term use Arthritis Chronic anemia Diverticulitis of colon with perforation Former tobacco use GERD (gastroesophageal reflux disease) Heart murmur History of GI bleed HLD (hyperlipidemia) Hypertension PAD (peripheral artery disease) Polycythemia Psoriasis Vertigo Home Medications atorvastatin 20 mg tablet 40 mg PO QHS cholesterol 09/17/15 [History Last Taken 06/18/23] nifedipine 30 mg tablet,extended release 30 mg PO DAILY PRN raynauds syndrome 09/17/15 [History Last Taken Unknown] fluoxetine 20 mg capsule 20 mg PO DAILY mental health 09/20/20 [History Last Taken 06/18/23] ixekizumab 80 mg/mL subcutaneous auto-injector (Taltz Autoinjector) 80 mg subcut QMONTH skin health 09/20/20 [History Last Taken 05/24/23] rizatriptan 10 mg disintegrating tablet 10 mg PO PRN PRN Migraine Headache 09/20/20 [History Last Taken Unknown] amitriptyline 50 mg tablet 25 mg PO QHS headache 01/17/22 [History Last Taken 06/18/23] ondansetron 4 mg disintegrating tablet 4 mg PO Q8H PRN nausea and vomiting #10 tabs 01/17/22 [Rx Last Taken Unknown] gabapentin 300 mg capsule 300 mg PO Q8H neuropathy/nerve pain 06/07/23 [History Last Taken 06/18/23] pantoprazole 40 mg tablet,delayed release 40 mg PO DAILY heart burn 06/07/23 [History Last Taken 06/18/23] rivaroxaban 20 mg tablet (Xarelto) 20 mg PO QPM blood thinner 06/07/23 [History Last Taken 06/18/23 22:00] iron 150 mg-vit C 60 mg-folate 1 [id number] tablet (Niferex (Sumalate-Quatrefolic)) 1 tab PO DAILY supplement #60 tabs 06/10/23 [Rx Last Taken 06/18/23] oxycodone-acetaminophen 5 mg-325 mg tablet 1 tab PO BID PRN pain 06/19/23 [History Last Taken 06/19/23] aspirin 81 mg chewable tablet 1 tab PO QPM 08/18/23 [History Last Taken Unknown] fremanezumab-vfrm 225 mg/1.5 mL subcutaneous auto-injector (Ajovy) mg subcut headaches 08/18/23 [History Last Taken Unknown] hydrocodone-acetaminophen 5-325mg 5mg-325mg 1 tab PO BID 08/18/23 [History Last Taken Unknown] polysaccharide iron complex 150 mg iron capsule 150 mg PO DAILY anemia 08/18/23 [History Last Taken Unknown] tizanidine 4 mg tablet 4 mg PO QHS PRN muscle spasm 08/18/23 [History Last Taken Unknown] Allergy/AdvReac Type Severity Reaction Status Date / Time verapamil Allergy Rash Verified 08/17/23 15:32 Family History (Updated 08/18/23 @ 14:[address] Staci Harris MD) Mother Heart disease Hypertension Father Diabetes Surgical History (Updated 08/18/23 @ 14:[address] Staci Harris MD) History of creation of ostomy History of vascular surgery Hx of cardiac catheterization S/P partial colectomy Social History (Updated 08/18/23 @ 14:[address] Staci Harris MD) household members: spouse Smoking Status: Former smoker how long ago did patient quit smoking: Quit 04/2023. alcohol intake: current alcohol intake frequency: 3 or more drinks per day Alcohol type: beer and hard liquor details: At least 3 beers (12 oz)/night, occasionally also Paul/Coke. substance use type: does not use Lab / Micro Data 08/19/23 14:16 08/19/23 06:55 Labs: Laboratory Results - last 24 hr 08/17/23 15:55: Crossmatch See Detail 08/19/23 02:50: Hgb 7.8 L, Hct 25.1 L 08/19/23 06:55: WBC 7.5, RBC 2.67 L, Hgb 7.0 L, Hct 22.3 L, MCV 83.5, MCH 26.2 L , MCHC 31.4 L, RDW Std Deviation 50.9 H, RDW Coeff of Eze 16.6 H, Plt Count 392, MPV 9.2, Immature Gran % (Auto) 0.400, Neut % (Auto) 63.2, Lymph % (Auto) 27.7, [place] % (Auto) 5.0, Eos % (Auto) 2.9, Baso % (Auto) 0.8, Absolute Neuts (auto) 4.8, Absolute Lymphs (auto) 2.09, Nucleated RBC % 0, Sodium 139, Potassium 3.6, Chloride 110 H, Carbon Dioxide 23.0, Anion Gap 6, BUN 15, Creatinine 0.95, Estim Creat Clear Calc 92.28, Est GFR (MDRD) Af Amer 104, Est GFR (MDRD) Non-Af 86, BUN/Creatinine Ratio 15.8, Glucose 92, Calcium 8.5, Total Bilirubin 0.70, AST 20, ALT 21, Alkaline Phosphatase 71, Total Protein 6.3 L, Albumin 3.1 L, Globulin 3.2, Albumin/Globulin Ratio 1.0 08/19/23 10:20: Hgb 7.6 L, Hct 23.7 L 08/19/23 14:16: Hgb 7.7 L, Hct 25.0 L
[2023-08-19] MEDS: Atorvastatin Calcium 40 MG Tablet PO (21:23)
[2023-08-20] MEDS: cycloBENZAPRine HCl 10 MG Tablet PO ×2 (01:28→10:10)
[2023-08-20] MEDS: Morphine 2 MG/ML Syringe IV ×3 (01:29→17:25)
[2023-08-20 02:44] VITALS: BP 151/76; PULSE 59; RESP 16; TEMP 36.6; O2SAT 97
[2023-08-20 04:36] VITALS: BMI 26.2
[2023-08-20] MEDS: oxyCODONE 5 MG Tablet PO ×2 (05:48→14:17)
[2023-08-20] MEDS: Acetaminophen 325 MG Tablet 650 MG PO ×2 (05:49→14:17)
[2023-08-20] MEDS: Gabapentin 300 MG Capsule PO ×3 (05:51→21:26)
[2023-08-20 06:39] LABS: Absolute Lymphocyte Count 2.02 X10^3/uL (0.83-4.51); Absolute Neutrophil Count 4.2 X10^3/uL (2.0-7.7); Basophil# 0.07 X10^3/uL; Eosinophil# 0.23 X10^3/uL; Eosinophils% 3.4 % (0-5); Hematocrit 24.4 % (40-54); Hemoglobin 7.6 g/dL (13.0-16.5); Lymphocyte # 2.02 X10^3/ul (0.83-4.51); Lymphocyte % 29.5 % (19-41); Mean Corp Hgb Conc 31.1 g/dL (32-36); Mean Corpuscular Hgb 26.2 pg (27.0-32.0); Mean Corpuscular Volume 84.1 fL (80-94); Monocyte# 0.34 X10^3/uL; NRBC Flagged by Analyzer 0 % (0-5); Neutrophil # 4.18 X10^3/uL (2.7-7.7); Platelet Count 425 K/mm3 (150-450); RBC Distribution Width CV 16.9 % (11.6-14.6); RBC Distribution Width SD 52.1 fl (35.1-43.9); White Blood Count 6.9 K/mm3 (4.4-11.0)
[2023-08-20 07:01] LABS: Anion Gap 8 (5-15); BUN 11 mg/dL (7-18); BUN/Creat Ratio 11.1 RATIO (10-20); Calcium,Total 8.5 mg/dL (8.5-10.1); Chloride 108 mmol/L (98-107); Creatinine, Serum 0.99 mg/dL (0.70-1.30); EST Glomerular Filtration Rate 81 mL/min (>60); Est Glom Filt Rate - Afr Amer 99 mL/min (>60); Estimated Creatinine Clearance 88.55 ml/min; Glucose 101 mg/dL (74-106); Potassium 3.7 mmol/L (3.5-5.1); Sodium Level 141 mmol/L (136-145)
[2023-08-20 07:45] VITALS: O2SAT 96
--- NOTE | 2023-08-20 08:05 | PN.HOSP_ITS ---
Reason for Visit Reason for Visit: Diagnoses Peripheral vascular disease, unspecified (08/18/23) Gastrointestinal hemorrhage, unspecified (08/18/23) Presence of other vascular implants and grafts (08/18/23) Subjective Subjective Having cramps and increased swelling in the right lower extremity. No further bleeding Objective Data Objective Data Vital Signs: Vital Signs Temp Pulse Resp BP Pulse Ox O2 Del Method 36.6 C 59 L 16 151/76 H 97 Room Air 08/20/23 02:44 08/20/23 02:44 08/20/23 02:44 08/20/23 02:44 08/20/23 02:44 08/20/23 02:44 Oxygen Delivery Method Room Air Weight: 90.4 kg Body Mass Index (BMI) 26.2 Intake & Output: Intake and Output for Last 24 Hours 08/18/23 08/19/23 08/20/23 23:59 23:59 23:59 Intake Total 85 / 85 1834.75 / 1834.75 1300 / 1300 Output Total 1885 / 2660 1575 / 1575 Balance 85 / -315 -50.25 / -825.25 -275 / -275 Lab / Micro Data 08/20/23 06:17 08/20/23 06:17 Labs: Laboratory Results - last 24 hr 08/19/23 06:55: WBC 7.5, RBC 2.67 L, Hgb 7.0 L, Hct 22.3 L, MCV 83.5, MCH 26.2 L , MCHC 31.4 L, RDW Std Deviation 50.9 H, RDW Coeff of Eze 16.6 H, Plt Count 392, MPV 9.2, Immature Gran % (Auto) 0.400, Neut % (Auto) 63.2, Lymph % (Auto) 27.7, [place] % (Auto) 5.0, Eos % (Auto) 2.9, Baso % (Auto) 0.8, Absolute Neuts (auto) 4.8, Absolute Lymphs (auto) 2.09, Nucleated RBC % 0, Sodium 139, Potassium 3.6, Chloride 110 H, Carbon Dioxide 23.0, Anion Gap 6, BUN 15, Creatinine 0.95, Estim Creat Clear Calc 92.28, Est GFR (MDRD) Af Amer 104, Est GFR (MDRD) Non-Af 86, BUN/Creatinine Ratio 15.8, Glucose 92, Calcium 8.5, Total Bilirubin 0.70, AST 20, ALT 21, Alkaline Phosphatase 71, Total Protein 6.3 L, Albumin 3.1 L, Globulin 3.2, Albumin/Globulin Ratio 1.0 08/19/23 10:20: Hgb 7.6 L, Hct 23.7 L 08/19/23 14:16: Hgb 7.7 L, Hct 25.0 L 08/20/23 06:17: WBC 6.9, RBC 2.90 L, Hgb 7.6 L, Hct 24.4 L, MCV 84.1, MCH 26.2 L , MCHC 31.1 L, RDW Std Deviation 52.1 H, RDW Coeff of Eze 16.9 H, Plt Count 425, MPV 9.0, Immature Gran % (Auto) 0.100, Neut % (Auto) 61.0, Lymph % (Auto) 29.5, [place] % (Auto) 5.0, Eos % (Auto) 3.4, Baso % (Auto) 1.0, Absolute Neuts (auto) 4.2, Absolute Lymphs (auto) 2.02, Nucleated RBC % 0, Sodium 141, Potassium 3.7, Chloride 108 H, Carbon Dioxide 25.0, Anion Gap 8, BUN 11, Creatinine 0.99, Estim Creat Clear Calc 88.55, Est GFR (MDRD) Af Amer 99, Est GFR (MDRD) Non-Af 81, BUN/Creatinine Ratio 11.1, Glucose 101, Calcium 8.5 Micro: Microbiology 08/17/23 16:05 Stool Stool Occult Blood (VENKATA) - Final Occult Blood Positive Radiography Diagnostic Testing: Radiology Impression Ankle Brachial Index 08/18/23 16:10 Interpretation Summary Right SAVANNA 1.0, normal. Doppler/PVR waveforms of the right ankle mildly diminished at rest. Left SAVANNA 1.14, normal. Doppler/PVR waveforms of the left ankle mildly diminished at rest. Ordering Physician: Staci Harris Referring Physician: Logan Larry Performed By: Velasquez Chamberlain, RVT Duplex Scan Lower Extremity Artery 08/18/23 16:10 Interpretation Summary Patent right SFA-PT bypass with stenosis of proximal anastomosis, preserved velocities throughout graft. Ordering Physician: Staci Harris Referring Physician: logan Larry Performed By: Isabel Levine RVT Physical Exam Const alert and no apparent distress HEENT head/scalp atraumatic and moist oral mucous membranes Resp normal respiratory effort, no retractions, no use of accessory muscles and clear to auscultation bilaterally Cardio regular rate, regular rhythm, S1 normal heart sound and S2 normal heart sound GI normal to inspection, nondistended, normoactive bowel sounds Extremity Extremity Narrative: Increased edema right lower extremity. Neuro Sensorium / Orientation: awake and alert Assessment & Plan Assessment/Plan (1) GI bleed: PLAN: Plan Acute GI Bleed * Noted melena in colostomy. None since admission. * concern for area in small bowel by GI * GI recommending TF to tertiary facility given his previous negative GI workup but also the fact that he needs to continue to be on anticoagulation due to his history of PAD. * Pt accepted by [facility]. * on pantoprazole gtt ABLA * 2/2 GIB * admission hg 4.7, improved after 3 units. * Monitor Right lower extremity edema * ABIs performed on were negative * Venous duplex ordered. Chronic conditions: * PAD: PAD s/p femoral-popliteal bypass with limb ischemia w/ right above-knee popliteal to posterior tibial bypass with reversed right saphenous vein and ligation of prior femoropopliteal trunk bypass on 05/14/2023 at [facility] ith still intact previous bypass in the leg with chronic swelling associated as well as chronic numbness/paresthesias which is unchanged, had as noted recently restarted Xarelto over the last month, given recent intervention and revision we will continue to hold Xarelto but will continue ASA 81 mg daily which was discussed with Dr. Hernandez. Additionally, will request RLE arterial duplex and RLE SAVANNA studies. * Hypertension: Given presentation with normal range BPs with significant acute blood loss anemia we will hold patient hypertensive regimen and resume once clinically appropriate. * Hyperlipidemia: Will continue statin therapy. * Anxiety and depression: We will continue patient home amitriptyline and fluoxetine home regimen. * Psoriasis: Patient with monthly ixekizuman injections, encourage continued outpatient follow-up as previously arranged. * Chronic migraines: Outpatient patient uses rizatriptan regimen as needed, will hold unless necessary. * Former tobacco use: Encourage continued tobacco cessation. * Chronic neuropathy: Will continue patient home gabapentin regimen. * GERD: As noted will maintain on IV PPI. * EtOH Abuse: Patient notes routine consumption of at least 3, 12 ounce beers and occasionally Paul and Coke per day. Discussed alcoholism and strongly encouraged decreased alcohol intake/sobriety especially given GI bleed history. Will maintain on CIWA protocol, MVI, thiamine and folic acid. Case management consulted. DVT prophylaxis: Holding patient home Xarelto per discussion with Dr. Hernandez. Will maintain on asa only cautiously. CODE status: Full Charges/Coding Visit Charges Inpatient E&M: 71626 Subs Hosp L2
[2023-08-20 09:32] VITALS: BP 153/82; PULSE 69; RESP 16; TEMP 36.4; O2SAT 98
[2023-08-20] MEDS: FLUoxetine 20 MG Capsule PO (09:38)
[2023-08-20] MEDS: Thiamine Hydrochloride 100 MG Tablet PO (09:38)
[2023-08-20] MEDS: Multivitamins,Ther W-Minerals Tablet 1 TABLET PO (09:38)
[2023-08-20] MEDS: Folic Acid 1 MG Tablet PO (09:38)
[2023-08-20] MEDS: Amitriptyline 25 MG Tablet PO ×2 (09:38→21:21)
[2023-08-20] MEDS: Pantoprazole Sodium 80 MG in 0.9% Normal Saline (100mL Bag) 80 ML 10 MG CONT INF (09:54)
[2023-08-20] MEDS: Ceftriaxone 1 GM/50 ML BAG IV (10:00)
--- NOTE | 2023-08-20 10:39 | VDLE_ITS ---
Reason For Study: RLE Swelling RIGHT GSV is normal. CFV is compressible, spontaneous, phasic, competent and demonstrates normal augmentation. FV is compressible, spontaneous, phasic, competent and demonstrates normal augmentation. POP V is compressible, spontaneous, phasic, competent and demonstrates normal augmentation. T/P Trunk is compressible. PTV is compressible. RT PerV is compressible. Procedure This is a venous duplex using B-mode, color flow and spectral Doppler. Exam performed portable in patient room. The exam was diagnostic. A preliminary report was called and/or faxed to Tata HAYWARD RN. VL/Venous Duplex US, Unilateral Interpretation Summary Deep veins of the right lower extremity are patent and compressible segmentally . There is no evidence of right lower extremity deep vein thrombosis. The right [place] vein appears patent and compressible segmentally. Ordering Physician: Emile Dumont Referring Physician: Kenroy Larry Performed By: Velasquez Chamberlain RVT
[2023-08-20 14:10] VITALS: BP 126/73; PULSE 64; RESP 16; TEMP 36.6; O2SAT 95
[2023-08-20 17:05] VITALS: BP 134/68; PULSE 72; RESP 16; TEMP 36.7; O2SAT 97
[2023-08-20] MEDS: Aspirin 81 MG TAB.CHEW PO (17:08)
[2023-08-20] MEDS: Lidocaine 5% Patch 1 PATCH TOPICAL (17:25)
[2023-08-20] MEDS: Atorvastatin Calcium 40 MG Tablet PO (21:21)
[2023-08-20] MEDS: Pantoprazole Sodium 40 MG in 0.9% Normal Saline (100mL MB+) 100 ML 330 MG IV (21:26)
[2023-08-20 21:27] VITALS: BP 150/71; PULSE 63; RESP 18; TEMP 36.5; O2SAT 100
[2023-08-21 03:21] VITALS: BP 145/71; PULSE 75; RESP 18; TEMP 36.2; O2SAT 92
[2023-08-21 03:25] VITALS: BMI 26.9
[2023-08-21] MEDS: Gabapentin 300 MG Capsule PO ×3 (06:28→21:03)
[2023-08-21 07:52] VITALS: BP 134/62; PULSE 72; RESP 16; TEMP 36.4; O2SAT 97
[2023-08-21] MEDS: Thiamine Hydrochloride 100 MG Tablet PO (07:56)
[2023-08-21] MEDS: Folic Acid 1 MG Tablet PO (07:56)
[2023-08-21] MEDS: Multivitamins,Ther W-Minerals Tablet 1 TABLET PO (07:56)
[2023-08-21] MEDS: FLUoxetine 20 MG Capsule PO (07:57)
[2023-08-21] MEDS: Amitriptyline 25 MG Tablet PO ×2 (07:57→21:03)
[2023-08-21] MEDS: Lidocaine 5% Patch 1 PATCH TOPICAL (07:57)
[2023-08-21 08:29] LABS: Absolute Lymphocyte Count 1.76 X10^3/uL (0.83-4.51); Absolute Neutrophil Count 5.4 X10^3/uL (2.0-7.7); Basophil# 0.04 X10^3/uL; Basophil% 0.5 % (0-1); Eosinophils% 2.6 % (0-5); Hematocrit 25.1 % (40-54); Hemoglobin 7.8 g/dL (13.0-16.5); Lymphocyte # 1.76 X10^3/ul (0.83-4.51); Lymphocyte % 22.6 % (19-41); Mean Corp Hgb Conc 31.1 g/dL (32-36); Mean Corpuscular Hgb 26.1 pg (27.0-32.0); Mean Corpuscular Volume 83.9 fL (80-94); Monocyte# 0.37 X10^3/uL; Monocyte% 4.8 % (0-10); NRBC Flagged by Analyzer 0 % (0-5); Neutrophil # 5.39 X10^3/uL (2.7-7.7); Neutrophil % 69.2 % (47-70); Platelet Count 428 K/mm3 (150-450); RBC Distribution Width CV 17.2 % (11.6-14.6); RBC Distribution Width SD 52.8 fl (35.1-43.9); Red Blood Count 2.99 M/mm3 (4.6-6.2); White Blood Count 7.8 K/mm3 (4.4-11.0)
[2023-08-21 08:47] LABS: AST(SGOT) 16 U/L (15-37); Alanine Aminotransfer ALT/SGPT 22 U/L (16-61); Albumin, Serum 3.4 g/dL (3.2-5.0); Alkaline Phosphatase 83 U/L (45-117); Anion Gap 7 (5-15); BUN 9 mg/dL (7-18); BUN/Creat Ratio 8.3 RATIO (10-20); Calcium,Total 8.6 mg/dL (8.5-10.1); Chloride 108 mmol/L (98-107); Creatinine, Serum 1.09 mg/dL (0.70-1.30); EST Glomerular Filtration Rate 73 mL/min (>60); Est Glom Filt Rate - Afr Amer 88 mL/min (>60); Estimated Creatinine Clearance 80.43 ml/min; Globulin 3.5 g/dL (2.2-4.2); Glucose 122 mg/dL (74-106); Potassium 3.7 mmol/L (3.5-5.1); Protein, Total 6.9 g/dL (6.4-8.2); Sodium Level 138 mmol/L (136-145)
[2023-08-21] MEDS: 0.9% Saline Lock 10 ML Syringe IV (09:47)
[2023-08-21] MEDS: Pantoprazole Sodium 40 MG in 0.9% Normal Saline (100mL MB+) 100 ML 330 MG IV ×2 (09:48→21:10)
[2023-08-21] MEDS: Ceftriaxone 1 GM/50 ML BAG IV (09:48)
[2023-08-21 09:50] VITALS: BP 132/78; PULSE 60; RESP 18; TEMP 36.4; O2SAT 95
[2023-08-21] MEDS: Acetaminophen 325 MG Tablet 650 MG PO ×3 (12:59→21:03)
[2023-08-21] MEDS: oxyCODONE 5 MG Tablet PO ×3 (13:00→21:03)
[2023-08-21 15:49] VITALS: BP 136/67; PULSE 61; RESP 18; TEMP 36.4; O2SAT 96
[2023-08-21] MEDS: cycloBENZAPRine HCl 10 MG Tablet PO ×2 (15:52→21:02)
[2023-08-21] MEDS: Aspirin 81 MG TAB.CHEW PO (16:55)
--- NOTE | 2023-08-21 18:00 | PCM.PN.HOSP ---
Reason for Visit Reason for Visit: Diagnoses Peripheral vascular disease, unspecified (08/18/23) Gastrointestinal hemorrhage, unspecified (08/18/23) Presence of other vascular implants and grafts (08/18/23) Subjective Subjective Patient was seen and examined today, I took him off telemetry-I do not feel there is a need for this at the present time. Patient's hemoglobin this morning was 7.8, we are still awaiting transfer to [facility]. Objective Data Objective Data Vital Signs: Vital Signs Temp Pulse Resp BP Pulse Ox O2 Del Method 97.6 F L 61 18 136/67 H 96 Room Air 08/21/23 15:49 08/21/23 15:49 08/21/23 15:49 08/21/23 15:49 08/21/23 15:49 08/21/23 15:49 Oxygen Delivery Method Room Air Weight: 92.5 kg Body Mass Index (BMI) 26.9 Intake & Output: Intake and Output for Last 24 Hours 08/19/23 08/20/23 08/21/23 23:59 23:59 23:59 Intake Total 1834.75 / 1834.75 2986 / 3486 1430 / 1430 Output Total 1885 / 2660 2575 / 2575 500 / 500 Balance -50.25 / -825.25 411 / 911 930 / 930 Lab / Micro Data 08/21/23 08:01 08/21/23 08:01 Labs: Laboratory Results - last 24 hr 08/21/23 08:01: WBC 7.8, RBC 2.99 L, Hgb 7.8 L, Hct 25.1 L, MCV 83.9, MCH 26.1 L, MCHC 31.1 L, RDW Std Deviation 52.8 H, RDW Coeff of Eze 17.2 H, Plt Count 428, MPV 9.0, Immature Gran % (Auto) 0.300, Neut % (Auto) 69.2, Lymph % (Auto) 22.6, [place] % (Auto) 4.8, Eos % (Auto) 2.6, Baso % (Auto) 0.5, Absolute Neuts (auto) 5.4, Absolute Lymphs (auto) 1.76, Nucleated RBC % 0, Sodium 138, Potassium 3.7, Chloride 108 H, Carbon Dioxide 23.0, Anion Gap 7, BUN 9, Creatinine 1.09, Estim Creat Clear Calc 80.43, Est GFR (MDRD) Af Amer 88, Est GFR (MDRD) Non-Af 73, BUN/Creatinine Ratio 8.3 L, Glucose 122 H, Calcium 8.6, Total Bilirubin 0.50, AST 16, ALT 22, Alkaline Phosphatase 83, Total Protein 6.9, Albumin 3.4, Globulin 3.5, Albumin/Globulin Ratio 1.0 Micro: Microbiology 08/17/23 16:05 Stool Stool Occult Blood (VENKATA) - Final Occult Blood Positive Physical Exam Const alert, oriented x3, no apparent distress, average body habitus and healthy appearing General Appearance: cooperative, well kempt and well developed Orientation / Consciousness: awake, oriented to person, oriented to place and oriented to time HEENT normocephalic, head/scalp atraumatic and moist oral mucous membranes Eyes PERRL, EOMs intact bilaterally and conjunctivae normal Neck supple, no JVD, thyroid normal and no carotid bruits General: trachea midline Resp normal respiratory effort and clear to auscultation bilaterally Auscultation: Negative for rales, rhonchi or wheezes Cardio regular rate, regular rhythm, S1 normal heart sound, S2 normal heart sound, no murmurs, no rub and no gallops GI normal to inspection, nondistended, normoactive bowel sounds, soft to palpation, non-tender and non-distended GI Narrative: Patient has a colostomy Extremity no clubbing, cyanosis or edema Skin no rashes or lesions noted General Skin Exam: no breakdown Neuro oriented x3, CN's II-XII intact bilaterally, moves all extremities, no focal motor deficits and no sensory deficits noted Sensorium / Orientation: awake and alert Speech: speech normal Psych affect normal Assessment & Plan Assessment/Plan (1) GI bleed: PLAN: Plan 1. Acute GI bleed-etiology unclear, hemoglobin remained stable at this time, again gastroenterology is recommending transfer to a tertiary facility, we are awaiting word from [facility], patient remains on a Protonix drip #2 acute blood loss anemia from GI tract requiring transfusion-hemoglobin remained stable at this time, H&H will be repeated tomorrow #3 hyperlipidemia-patient is on a statin #4 peripheral arterial disease-complicates care, management, recovery, and prognosis Total clinical time spent by myself addressing the patient's medical issues, reviewing his data, and collaborating with patient's care team: 25 minutes Charges/Coding Visit Charges Inpatient E&M: 59200 Subs Hosp L1
[2023-08-21 21:00] VITALS: BP 144/62; PULSE 67; RESP 18; TEMP 36.3; O2SAT 100
[2023-08-21] MEDS: MELATONIN 3 MG TABLET PO (21:02)
[2023-08-21] MEDS: Atorvastatin Calcium 40 MG Tablet PO (21:03)
[2023-08-21 22:00] VITALS: O2SAT 100
[2023-08-21] MEDS: Morphine 2 MG/ML Syringe IV (22:57)
[2023-08-22] MEDS: oxyCODONE 5 MG Tablet PO (02:24)
[2023-08-22 02:30] VITALS: BP 161/66; PULSE 66; RESP 18; TEMP 36.6; O2SAT 96
--- NOTE | 2023-08-22 03:15 | NURSING ---
pt out of unit w/ physician transport.
--- NOTE | 2023-08-22 08:52 | PCM.DC.SUM ---
Providers Date of Admission: 08/18/23 Date of Discharge: 08/22/23 Primary Care Physician: Dr. Kenroy Larry MD Consultations 08/18/23 16:10 Consult: Gastroenterology Routine Consulting Provider: [facility] Reason for Consult: GI bleed, ABLA, awaiting transfer bed EMERGENT Consult: No Notified: Yes Date Notified: 08/18/23 Time Notified: 13:54 Method of Notification: Text Consult: Vascular Surgery Routine Consulting Provider: Emile Hernandez Reason for Consult: recent fem-pop, PAD EMERGENT Consult: No Notified: Yes Date Notified: 08/18/23 Time Notified: 13:53 Method of Notification: Verbal Reason For Visit: GI BLEED, ABLA Diagnosis Discharge Diagnosis (1) GI bleed: Status: Acute Code(s): K92.2 - Gastrointestinal hemorrhage, unspecified Plan 1. Acute GI bleed-etiology unclear, hemoglobin remained stable at this time, again gastroenterology is recommending transfer to a tertiary facility, we are awaiting word from [facility], patient remains on a Protonix drip #2 acute blood loss anemia from GI tract requiring transfusion-hemoglobin remained stable at this time, H&H will be repeated tomorrow #3 hyperlipidemia-patient is on a statin #4 peripheral arterial disease-complicates care, management, recovery, and prognosis Total clinical time spent by myself addressing the patient's medical issues, reviewing his data, and collaborating with patient's care team: 25 minutes Medications at Discharge Home Medications atorvastatin 20 mg tablet 40 mg PO QHS cholesterol 09/17/15 nifedipine 30 mg tablet,extended release 30 mg PO DAILY PRN raynauds syndrome 09/17/15 fluoxetine 20 mg capsule 20 mg PO DAILY mental health 09/20/20 ixekizumab 80 mg/mL subcutaneous auto-injector (Taltz Autoinjector) 80 mg subcut QMONTH skin health 09/20/20 rizatriptan 10 mg disintegrating tablet 10 mg PO PRN PRN Migraine Headache 09/20/20 amitriptyline 50 mg tablet 25 mg PO QHS headache 01/17/22 ondansetron 4 mg disintegrating tablet 4 mg PO Q8H PRN nausea and vomiting #10 tabs 01/17/22 gabapentin 300 mg capsule 300 mg PO Q8H neuropathy/nerve pain 06/07/23 pantoprazole 40 mg tablet,delayed release 40 mg PO DAILY heart burn 06/07/23 rivaroxaban 20 mg tablet (Xarelto) 20 mg PO QPM blood thinner 06/07/23 iron 150 mg-vit C 60 mg-folate 1 [id number] tablet (Niferex (Sumalate-Quatrefolic)) 1 tab PO DAILY supplement #60 tabs 06/10/23 oxycodone-acetaminophen 5 mg-325 mg tablet 1 tab PO BID PRN pain 06/19/23 aspirin 81 mg chewable tablet 1 tab PO QPM 08/18/23 fremanezumab-vfrm 225 mg/1.5 mL subcutaneous auto-injector (Ajovy) mg subcut headaches 08/18/23 hydrocodone-acetaminophen 5-325mg 5mg-325mg 1 tab PO BID 08/18/23 polysaccharide iron complex 150 mg iron capsule 150 mg PO DAILY anemia 08/18/23 tizanidine 4 mg tablet 4 mg PO QHS PRN muscle spasm 08/18/23 Hospital Course Operations None Procedures Blood transfusion Summary of Care Provided Minutes Spent on Discharge: 30 Hospital Course: This 62-year-old white female was seen in the emergency room at [facility] after you sent for evaluation of abnormal outpatient labs indicating anemia. Patient is taking Xarelto chronically, he had seen gastroenterology here in the past (Dr. Reyes), patient had a workup for gastrointestinal bleeding which included an upper and lower endoscopy and a pill study all of which were negative for etiology of bleeding. Patient had been sent to [facility] recently and he had a CTA which showed a possible hematoma developing around his previous femoral-popliteal bypass, there was a concern that this could be the source of his anemia. Workup at [facility] was completed and they did not feel this was the source of his anemia. Labs obtained in the emergency room showed his hemoglobin to be 4.7, chest/abdominal/pelvic CTA was performed, there was no evidence for small bowel obstruction or acute abnormality, there was no contrast extravasation within the bowel to suggest a site of acute GI hemorrhage. [facility] was contacted after gastroenterology here advised transferring the patient to another hospital for further workup, patient waited in the emergency room several hours and then patient was admitted to PCU for further care pending his transfer, he was given several units of blood, after his transfusion, his hemoglobin remained stable. On 08/22/2023, patient was transferred to [facility] in stable condition, he was not seen on that day by myself for examination. Weight / BMI Weight Weight: 92.5 kg Body Mass Index (BMI) 26.9 ABG / Lab / Microbiology Data 08/21/23 08:01 08/21/23 08:01 Microbiology: Microbiology 08/17/23 16:05 Stool Stool Occult Blood (VENKATA) - Final Occult Blood Positive Meaningful Use Info Meaningful Use Meaningful Use Diagnoses (Choose all that apply): None applicable Ischemic Stroke Statin Dosing Therapy Reference: STATIN DOSE THERAPY REFERENCE: * Patients > 75 years receive moderate or high dose statin therapy. * Patients 75 years or YOUNGER should receive HIGH intensity statin dose unless contraindicated. You will be required to document reason for non-treatment if statin daily dose does not meet guidelines. HIGH DOSE STATIN THERAPY DAILY Atorvastatin > than or = to 40 mg Rosuvastatin > than or = to 20 mg Amlodipine + Atorvastatin > than or = to 2.5/40 mg Ezetimibe + Simvastatin 10/80 mg Simvastatin 80mg Discharge Plan Admission Admit Date/Time: 08/18/23 13:53 Attending Provider: Milton Bergeron Primary Care Provider: Kenroy Larry Consulting Providers: Emile Hernandez; Milton Bergeron; Emile Dumont Discharge Orders/Prescriptions Prescriptions: No Action atorvastatin 20 MG tablet 40 mg PO QHS nifedipine 30 MG tablet extended release 30 mg PO DAILY PRN (Reason: raynauds syndrome) Taltz Autoinjector 80 mg/mL auto-injector 80 mg SUBCUT QMONTH Hold Instructions: changed to diff med rizatriptan 10 mg tablet,disintegrating 10 mg PO PRN PRN (Reason: Migraine Headache) Patient Comments: TAKE 1 TABLET BY MOUTH NEEDED for migraine, may repeat in 2 (TWO) hours if needed fluoxetine 20 mg capsule 20 mg PO DAILY amitriptyline 50 mg tablet 25 mg PO QHS Patient Comments: 25mg ondansetron 4 mg tablet,disintegrating 4 mg PO Q8H PRN (Reason: nausea and vomiting) Qty: 10 0RF Xarelto 20 mg tablet 20 mg PO QPM Hold Instructions: Resume on 07/09/23. gabapentin 300 mg capsule 300 mg PO Q8H pantoprazole 40 mg tablet,delayed release (DR/EC) 40 mg PO DAILY Patient Comments: TAKE 1 TABLET BY MOUTH DAILY before BREAKFAST. take on empty stomach 30 MINUTES before meal Niferex (Sumalate-Quatrefolic) 150 mg iron- 60 mg-1 mg tablet 1 tab PO DAILY Qty: 60 0RF oxycodone-acetaminophen 5-325 mg tablet 1 tab PO BID PRN (Reason: pain) aspirin 81 mg tablet,chewable 1 tab PO QPM hydrocodone-acetaminophen 5-325 mg tablet 1 tab PO BID Ajovy Autoinjector 225 mg/1.5 mL auto-injector subcut polysaccharide iron complex 150 mg iron capsule 150 mg PO DAILY tizanidine 4 mg tablet 4 mg PO QHS PRN (Reason: muscle spasm) Referrals / Follow Up: Kenroy Larry MD [Primary Care Provider] - Disposition Disposition (needs filled in before D/C Order can be placed): [facility]
== END 2023-08-22 03:10 | disposition short-term general hospital (02) | DRG 253 ==
LOC: ED 16:11 → PCU 08-18 15:14
PROVIDERS: Emergency Medicine; Admitting Provider Family Medicine; Emergency Provider Student in an Organized Health Care Education/Training Program; PCP Family Medicine; Visit Provider Internal Medicine
DX: K92.2 Gastrointestinal hemorrhage, unspecified (principal); E78.5 Hyperlipidemia, unspecified; Z93.3 Colostomy status; I10 Essential (primary) hypertension; F10.10 Alcohol abuse, uncomplicated; F32.A Depression, unspecified; I73.9 Peripheral vascular disease, unspecified; K21.9 Gastro-esophageal reflux disease without esophagitis; G43.709 Chronic migraine without aura, not intractable, without status migrainosus; L40.9 Psoriasis, unspecified; D62 Acute posthemorrhagic anemia; F41.9 Anxiety disorder, unspecified; G62.9 Polyneuropathy, unspecified; Z95.828 Presence of other vascular implants and grafts; Z87.891 Personal history of nicotine dependence; Z79.01 Long term (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 of anticoagulants; Z79.82 Long term (current) use of aspirin; Z79.899 Other long term (current) drug therapy
CPT/HCPCS: 36415; 71275; 74174; 80048; 80053; 80076; 82248; 82274; 85014; 85018; 85025; 86850; 86900; 86901; 86920; 86922; 93922; 93926; 93971; 94668; 99284; J7030; J7040; P9016; Q9967; A4216; J3490

== ENCOUNTER → 2024-01-21 | Outpatient (CLI) | payer MEDICARE, SELFPAY ==
[2024-01-25 17:08] LABS: Hepatitis B Core Ab Total Negative (Negative); QNTFERON TB Mitogen Value > 10.00 IU/mL (.); QNTFERON TB Nil Value 0 IU/mL (.); QNTFERON TB1+ Ag Value 0 IU/mL (.); QNTFERON TB2+ Ag Value 0 IU/mL (.); QNTIFERON TB Positive Criteria Negative (Negative)
== END | disposition home or self-care (01) ==
LOC: MTLAB 16:45
PROVIDERS: PCP Family Medicine; Referring Provider Physician Assistant; Visit Provider Physician Assistant
DX: L40.0 Psoriasis vulgaris (principal); Z79.899 Other long term (current) drug therapy; F17.200 Nicotine dependence, unspecified, uncomplicated
CPT/HCPCS: 36415; 86480; 86704

== ENCOUNTER → 2024-02-22 | Outpatient (CLI) | payer MEDICARE, SELFPAY ==
[2024-02-22 18:26] LABS: Amphetamine Urine VISTA NEGATIVE (<1000 ng/mL); Barbiturate Urine VISTA NEGATIVE (< 200 ng/mL); Benzodiazepine Urine VISTA NEGATIVE (< 200 ng/mL); Cocaine Urine VISTA NEGATIVE (< 300 ng/mL); Ecstacy Urine VISTA NEGATIVE (< 500 ng/mL); Methadone Urine VISTA NEGATIVE (< 300 ng/mL); PCP Urine VISTA NEGATIVE (< 25 ng/mL); THC Urine VISTA NEGATIVE (< 50 ng/mL); Vista UDS pH Range 4
== END | disposition home or self-care (01) ==
LOC: LAB 15:52
PROVIDERS: PCP Family Medicine; Referring Provider Anesthesiology Pain Medicine; Visit Provider Anesthesiology Pain Medicine
DX: F11.20 Opioid dependence, uncomplicated (principal)
CPT/HCPCS: 80307

== ENCOUNTER → 2024-09-06 | Outpatient (CLI) | payer MEDICARE, SELFPAY ==
[2024-09-06 19:25] LABS: Amphetamine Urine NEGATIVE (<1000 ng/mL); Barbiturate Urine NEGATIVE (< 200 ng/mL); Benzodiazepine Urine NEGATIVE (< 200 ng/mL); Buprenorphine Urine NEGATIVE (< 200 ng/mL); Cocaine Urine NEGATIVE (< 300 ng/mL); Fentanyl, Urine NEGATIVE; Methadone Urine NEGATIVE (< 300 ng/mL); Opiates Urine NEGATIVE (< 300 ng/mL); Oxycodone, Urine PRESUMPTIVE POSITIVE (< 100 ng/mL); PCP Urine NEGATIVE (< 25 ng/mL); THC Urine NEGATIVE (< 50 ng/mL)
== END | disposition home or self-care (01) ==
LOC: LAB 15:50
PROVIDERS: PCP Family Medicine; Referring Provider Anesthesiology Pain Medicine; Visit Provider Anesthesiology Pain Medicine
DX: F11.20 Opioid dependence, uncomplicated (principal)
CPT/HCPCS: 80307

== ENCOUNTER 2024-10-13 06:15 | Emergency (ER) | payer MEDICARE, SELFPAY ==
[2024-10-13 06:16] VITALS: BP 199/73; PULSE 57; RESP 16; TEMP 36.6; O2SAT 97; BMI 26.6
--- NOTE | 2024-10-13 07:06 | EX.ED.DYSGE1 ---
HPI History of Present Illness Chief Complaint: Ear Problem Detail of Chief Complaint: Traumatic injury to right external auditory canal with bleeding Informant: patient Onset/Context/Timing Onset: Today and Hours Context: Sudden Onset Timing: Continuous Quality: Bleeding from right external auditory canal after blunt trauma Location: Right external auditory canal Current Severity: Mild Maximum Severity: Moderate Worsened by: Patient is on Plavix Relieved by: Nothing Associated Symptoms Associated Symptoms: None Narrative Narrative: Patient is a 63-year-old male. He has history of peripheral vascular disease and reason he is on Plavix. Status post [place] popliteal bypass surgery. He has history of Raynaud's disease and history of diverticulitis. He presents after sticking his finger in his ear and using a Q-tip because of bleeding. He states he bled all night. He does bruise easily. Prior similar symptoms: No Recent Illness/Hospitalization: No [facility] Medical History Alcohol abuse Former tobacco use Diverticulitis of colon with perforation HLD (hyperlipidemia) PAD (peripheral artery disease) Chronic anemia History of GI bleed Anticoagulant long-term use Vertigo Polycythemia Arthritis GERD (gastroesophageal reflux disease) Hypertension Heart murmur Psoriasis Home Medications ?Medication ?Instructions ?Recorded ?Last Taken ?Type atorvastatin 20 mg tablet 40 mg PO QHS cholesterol 09/17/15 06/18/23 History nifedipine 30 mg tablet,extended 30 mg PO DAILY PRN raynauds 09/17/15 Unknown History release syndrome fluoxetine 20 mg capsule 20 mg PO DAILY mental health 09/20/20 06/18/23 History rizatriptan 10 mg disintegrating 10 mg PO PRN PRN Migraine Headache 09/20/20 Unknown History tablet amitriptyline 50 mg tablet 25 mg PO QHS headache 01/17/22 06/18/23 History ondansetron 4 mg disintegrating 4 mg PO Q8H PRN nausea and 01/17/22 Unknown Rx tablet vomiting #10 tabs gabapentin 300 mg capsule 300 mg PO Q8H neuropathy/nerve pain 06/07/23 06/18/23 History pantoprazole 40 mg tablet,delayed 40 mg PO DAILY heart burn 06/07/23 06/18/23 History release rivaroxaban 20 mg tablet (Xarelto) 20 mg PO QPM blood thinner 06/07/23 06/18/23 22:00 History iron 150 mg-vit C 60 mg-folate 1 1 tab PO DAILY supplement #60 tabs 06/10/23 06/18/23 Rx [id number] tablet (Niferex (Sumalate-Quatrefolic)) oxycodone-acetaminophen 5 mg-325 1 tab PO BID PRN pain 06/19/23 06/19/23 History mg tablet aspirin 81 mg chewable tablet 1 tab PO QPM 08/18/23 Unknown History hydrocodone-acetaminophen 5-325mg 1 tab PO BID 08/18/23 Unknown History 5mg-325mg polysaccharide iron complex 150 mg 150 mg PO DAILY anemia 08/18/23 Unknown History iron capsule tizanidine 4 mg tablet 4 mg PO QHS PRN muscle spasm 08/18/23 Unknown History Allergy/AdvReac Type Severity Reaction Status Date / Time verapamil Allergy Rash Verified 10/13/24 06:20 Family History Mother Heart disease Hypertension Father Diabetes Surgical History History of creation of ostomy S/P partial colectomy History of vascular surgery Hx of cardiac catheterization Social History household members: spouse Smoking Status: Former smoker how long ago did patient quit smoking: Quit 04/2023. alcohol intake: current alcohol intake frequency: 3 or more drinks per day Alcohol type: beer and hard liquor details: At least 3 beers (12 oz)/night, occasionally also Paul/Coke. substance use type: does not use ROS ROS ED Constitutional Constitutional ED: Denies chills, fever(s) or subjective Eyes Eyes: Denies blurry vision, change in vision or diplopia ENT ENT ED: Reports other Details: Bleeding from right external auditory canal ; Denies ear pain, rhinorrhea or sore throat Neurologic Neurologic: Denies headache(s) Hematologic/Lymphatic Hematologic/Lymphatic: Reports easy bruising; Denies easy bleeding EXAM Physical Exam Const Vital Signs: 10/13/24 06:16 10/13/24 07:18 Temperature 97.9 F Temperature Source Oral Pulse Rate 57 L 61 Respiratory Rate 16 16 Blood Pressure 199/73 H 174/74 H Blood Pressure Mean 115 107 Pulse Ox 97 99 Oxygen Delivery Method Room Air Positive well nourished and well developed Constitutional Narrative: Blood pressure is elevated 199/73. Heart rate is 57. General Appearance ED: well developed and NAD HEENT Reports moist mucous membranes HEENT Narrative: Ear on the right side has blood noted. There is blood that essentially fills up the external auditory canal on the right. I am able to see approximately 25 to 33% of the right TM. Using a Q-tip blood was removed gently. Able to see more of the TM. Unable to determine if he may have perforated his TM when he used a Q-tip. Will have nurse gently irrigate. Will reexamine. The left ear, external auditory canal and TM are all normal. Eyes PERRL and EOMs intact bilaterally General Eye ED: Negative for pale conjunctiva or scleral icterus Neck no lymphadenopathy and supple Resp normal respiratory effort Cardio regular rate and regular rhythm Skin no rashes or lesions noted and No no wounds MDM MDM MDM Narrative Medical decision making narrative: Will have nurse irrigate ear and then reexamine. The bleeding is either due to a ruptured tympanic membrane or due to blunt trauma to the external auditory canal. Treatment and Re-Evaluation :: Patient was reassessed. Nurse states after first irrigation there was blood. After the 2nd and 3rd irrigation there is no bleeding noted. I am in see the TM. There is no obvious perforation. There is a clot formed on the floor of the right external auditory canal. Patient was told he should not use Q-tips. His blood pressure did improve. Suspect this is due to the fact that he is been up all night and anxious. Discharge Plan Triage Chief Complaint: Ear Problem ED Provider: Murray Sanchez Dx/Rx/DC Orders Clinical Impression: Bleeding from right ear, Peripheral vascular disease, S/P femoral-popliteal bypass surgery, Antiplatelet or antithrombotic long-term use Instructions: ED Abrasion Prescriptions: No Action atorvastatin 20 MG tablet 40 mg PO QHS nifedipine 30 MG tablet extended release 30 mg PO DAILY PRN (Reason: raynauds syndrome) rizatriptan 10 mg tablet,disintegrating 10 mg PO PRN PRN (Reason: Migraine Headache) Patient Comments: TAKE 1 TABLET BY MOUTH NEEDED for migraine, may repeat in 2 (TWO) hours if needed fluoxetine 20 mg capsule 20 mg PO DAILY amitriptyline 50 mg tablet 25 mg PO QHS Patient Comments: 25mg ondansetron 4 mg tablet,disintegrating 4 mg PO Q8H PRN (Reason: nausea and vomiting) Qty: 10 0RF Xarelto 20 mg tablet 20 mg PO QPM gabapentin 300 mg capsule 300 mg PO Q8H pantoprazole 40 mg tablet,delayed release (DR/EC) 40 mg PO DAILY Patient Comments: TAKE 1 TABLET BY MOUTH DAILY before BREAKFAST. take on empty stomach 30 MINUTES before meal Niferex (Sumalate-Quatrefolic) 150 mg iron- 60 mg-1 mg tablet 1 tab PO DAILY Qty: 60 0RF oxycodone-acetaminophen 5-325 mg tablet 1 tab PO BID PRN (Reason: pain) aspirin 81 mg tablet,chewable 1 tab PO QPM hydrocodone-acetaminophen 5-325 mg tablet 1 tab PO BID polysaccharide iron complex 150 mg iron capsule 150 mg PO DAILY tizanidine 4 mg tablet 4 mg PO QHS PRN (Reason: muscle spasm) Primary Care Provider: Kenroy Larry Referrals: Kenroy Larry MD [Primary Care Provider] - As Needed Activity Restrictions/Additional Instructions: You should not use Q-tips. Print Language: [place] Timorese Disposition Disposition: Home, Self Care
[2024-10-13 07:18] VITALS: BP 174/74; PULSE 61; RESP 16; O2SAT 99
--- OUTSIDE RECORDS SUMMARY | 2024-10-13 07:26 | XMS RPT_ITS | CCD ---
Author Organization [facility] Care Team Providers Care Podiatry Doctor Name Role Phone Linda Parish MD Primary Care Provider LINDA PARISH MD Primary Care Physician [phone] Linda Parish MD Primary Care Provider Linda Parish MD Primary Care Provider RANDALL SHAH Attending Unavailable RANDALL SHAH Admitting Unavailable LINDA PARISH Primary Care Unavailable Radha Ruiz MD Unavailable Radha Ruiz MD Unavailable Radha Ruiz MD Unavailable Meir Montalvo MD Unavailable Dr. Linda Pairsh Primary Care Provider Dr. Reid Ponce Emergency Provider [phone] Dr. Amber Gonzalez Attending Provider Amy, Dr. Lopez Attending Provider Dr. Emile Hernandez Attending Provider Dr. Amber Gonzalez Admit Provider Dr. Amber Gonzalez Other Provider Dr. Emile Hernandez Other Provider Dr. Ermias Ramirez Attending Provider Unavailable Dr. Ermias Ramirez Other Provider Unavailable PHUC Freedman Attending Provider Dr. Ermias Ramirez Referring Provider Unavailable PHUC Freedman Referring Provider Dr. Fish Mantilla Attending Provider Dr. Fish Mantilla Referring Provider Dr. Murray Sanchez Emergency Provider Dr. Devon Cutler Admit Provider Unavailable Dr. Devon Cutler Attending Provider Unavailab Dr. Devon Wisdom Other Provider Unavailable Dr. Milton Bergeron Attending Provider Dr. Milton Bergeron Other Provider Koram, Dr. Pascale Cross Other Provider Koram, Dr. Pascale Cross Attending Provider Dr. Adalberto Mari Attending Provider Dr. Devon Cutler Referring Provider Unavailab Dr. Linda Zimmer Primary Care Provider Dr. Reid Ponce Emergency Provider Dr. Amber Gonzalez Attending Provider Amy, Dr. Lopez Attending Provider Dr. Ermias Ramirez Referring Provider Unavailable Dr. Emile Hernandez Attending Provider PHUC Freedman Referring Provider Dr. Amber Gonzalez Admit Provider Dr. Amber Gonzalez Other Provider Dr. Emile Hernandez Other Provider Dr. Ermias Ramirez Attending Provider Unavailable Dr. Ermias Ramirez Other Provider Unavailable PHUC Freedman Attending Provider Dr. Fish Mantilla Attending Provider [phone] Dr. Fish Mantilla Referring Provider [phone] Dr. Murray Sanchez Emergency Provider Dr. Devon Cutler Admit Provider Unavailable Dr. Devon Cutler Attending Provider Unavailab Dr. Devon Wisdom Other Provider Unavailable Dr. Milton Bergeron Referring Provider TerDr. Milton king Attending Provider Dr. Milton Bergeron Other Provider Koram, Dr. Pascale Cross Referring Provider Koram, Dr. Pascale America Other Provider Brittany, Dr. Pascale Cross Attending Provider Dr. Adalberto Mari Attending Provider Dr. Devon Cutler Referring Provider Unavailab hany Parish, Dr. Jasmine Referring Provider Dr. Staci Harris Attending Provider Dr. Staci Harris Admit Provider Dr. Staci Harris Other Provider Dr. Emile Dumont Attending Provider Dr. Emile Dumont Other Provider Linda Parish MD Primary Care Provider Nakita [facility] [place] Unavailable [phone] Ju Edwards DO Unavailable Christiana Arrington MD Unavailable LINDA PARISH Primary Care Unavailable JU EDWARDS Attending Unavailab le МАРИНА, LINDA Maynard Primary Care Unavailable ILIA POLLOCK Attending Unavailable Lawrence Maria MD Unavailable [phone] MAX BATEMAN Referring Unavailable МАРИНА, LINDA Maynard Primary Care Unavailable FAIZAN DERAS Attending Unavailable JEN DIAMOND Referring Unavailable МАРИНА, LINDA Maynard Primary Care Unavailable NURY, CHRISTIANA Admitting Unavailable MILARABELLA, CHRISTIANA Attending Unavailable WALE MCCARTHY Referring Unavailable МАРИНА, LINDA Maynard Primary Care Unavailable MILER, CHRISTIANA Admitting Unavailable MILER, CHRISTIANA Attending Unavailable MAX BATEMAN Referring Unavailable МАРИНА, LINDA Maynard Primary Care Unavailable MILER, CHRISTIANA Admitting Unavailable MILER, CHRISTIANA Attending Unavailable МАРИНА, LINDA Maynard Primary Care Unavailable MILER, CHRISTIANA Admitting Unavailable MILARABELLA, CHRISTIANA Attending Unavailable МАРИНА, LINDA Maynard Primary Care Unavailable МАРИНА, LINDA Maynard Primary Care Unavailable MARIA INES RAMSAY Admitting Unavailable RICHARD WALLS Attending Unavailabl e CHRISTIANA ARRINGTON Consulting Unavailable Rajiagen APARTMENT MAINTENANCE WORKER.SIGNAL SUPERVISOR, Susana Unavailable Suppan APARTMENT MAINTENANCE WORKER.SIGNAL SUPERVISOR, Camille A Unavailable Suppan APARTMENT MAINTENANCE WORKER.SIGNAL SUPERVISOR, Camille A Unavailable МАРИНА, LINDA J Primary Care Unavailable MILER, CHRISTIANA Referring Unavailable МАРИНА, LINDA J Primary Care Unavailable MILER, CHRISTIANA Referring Unavailable LAWRENCE MARIA Attending Unavailabl e PAULETTE OTT Referring Unavailable МАРИНА, LINDA J Primary Care Unavailable PAULETTE OTT Attending Unavailable МАРИНА, LINDA J Primary Care Unavailable PAULETTE OTT Attending Unavailable МАРИНА, LINDA J Referring Unavailable МАРИНА, LINDA J Primary Care Unavailable CHOCO STEVENS Attending Unavailable МАРИНА, LINDA J Primary Care Unavailable Graceton , Dr. Jasmine Primary Care Provider [phone] Enrike CARMONA, Dr. Petty Attending Provider Enrike CARMONA, Dr. Petty Referring Provider [phone] Audrey Clark Attending Unavailable Audrey Clark Referring Unavailable Марина, Linda Primary Care Unavailable Malinda Calvert Attending Unavailable Malinda Calvert Referring Unavailable Graceton, Linda Primary Care Unavailable BasalMalinda field Attending Unavailable BasalMalinda field Referring Unavailable Марина, Linda Primary Care Unavailable MILER, CHRISTIANA Referring Unavailable МАРИНА, LINDA J Primary Care Unavailable МАРИНА, LINDA J Primary Care Unavailable MILER, CHRISTIANA Referring Unavailable МАРИНА, LINDA J Primary Care Unavailable SELF Referring Unavailable VALER, CHRISTIANA Attending Unavailable МАРИНА, LINDA J Primary Care Unavailable MILER, CHRISTIANA Referring Unavailable МАРИНА, LINDA J Primary Care Unavailable MILER, CHRISTIANA Referring Unavailable МАРИНА, LINDA J Primary Care Unavailable МАРИНА, LINDA J Attending Unavailable МАРИНА, LINDA J Primary Care Unavailable MEIR MONTALVO Referring Unavailable МАРИНА, LINDA J Primary Care Unavailable MILER, CHRISTIANA Referring Unavailable МАРИНА, LINDA J Primary Care Unavailable MEIR MONTALVO Referring Unavailable МАРИНА, LINDA J Primary Care Unavailable MILER, CHRISTIANA Referring Unavailable МАРИНА, LINDA J Primary Care Unavailable МАРИНА, LINDA J Attending Unavailable МАРИНА, LINDA J Primary Care Unavailable МАРИНА, LINDA J Primary Care Unavailable MILER, CHRISTIANA Referring Unavailable МАРИНА, LINDA J Primary Care Unavailable SELF Referring Unavailable HUYEN GREEN Attending Unavailable МАРИНА, LINDA J Primary Care Unavailable AMBREEN MAN Attending Unavailable МАРИНА, LINDA J Primary Care Unavailable LINDA PARISH Referring Unavailable LINDA PARISH Primary Care Unavailable CHIOMA BASSETT Referring Unavailable LINDA PARISH Primary Care Unavailable LESLIE IBRAHIM Referring Unavailable LINDA PARISH Primary Care Unavailable CHRISTIANA ARRINGTON Attending Unavailable LINDA PARISH Primary Care Unavailable CHIOMA BASSETT Referring Unavailable МАРИНА, LINDA Maynard Primary Care Unavailable MEIR MONTALVO Referring Unavailable МАРИНА, LINDA Maynard Primary Care Unavailable CHIOMA BASSETT Referring Unavailable МАРИНА, LINDA Maynard Primary Care Unavailable CHRISTIANA ARRINGTON Attending Unavailable МАРИНА, LINDA Maynard Primary Care Unavailable FREDI NUNN Attending Unavailable МАРИНА, LINDA Maynard Primary Care Unavailable LESLIE IBRAHIM Referring Unavailable LESLIE IBRAHIM Attending Unavailable МАРИНА, LINDA Maynard Primary Care Unavailable MEIR MONTALVO Referring Unavailable МАРИНА, LINDA Maynard Primary Care Unavailable MEIR MONTALVO Referring Unavailable МАРИНА, LINDA Maynard Primary Care Unavailable LINDA PARISH Attending Unavailable LINDA PARISH Primary Care Unavailable LINDA PARISH Referring Unavailable LINDA PARISH Primary Care Unavailable CHRISTIANA ARRINGTON Referring Unavailable МАРИНА, LINDA Maynard Primary Care Unavailable CHRISTIANA ARRINGTON Referring Unavailable CHRISITANA ARRINGTON Attending Unavailable Allergies Allergy Classification Reported Allergen(s) Allergy Type Date of Onset Reaction(s) Facility Calcium Channel Blockers (1 source) Verapamil Drug Allergy 11-07-2019 [facility] (20 sources) Verapamil; Translations: [VERAPAMIL] Drug Allergy 11-07-2019 [facility] Work Phone: (1 source) Verapamil Drug Allergy 08-17-2023 [facility] Repository Medications Current Medications Medication Drug Class(es) Dates Sig (Normalized) Sig (Original) acetaminophen 325 mg oral tablet (20 sources) take 2 tablets by mouth every six hours as needed acetaminophen (TYLENOL) 325 mg tablet Indications: Migraine with aura and without status migrainosus, not intractable Take 650 mg by mouth every 6 hours as needed. Active Comment on above: Take 650 mg by mouth every 6 hours as needed. acetaminophen 325 mg / HYDROcodone bitartrate 5 mg oral tablet (20 sources) Opioid Agonist Start: 08-18-2023 End: 01-05-2024 Hydrocodone-Acetami nophen 5-325 mg tablet Active 1 {tbl} PO TWICE A DAY August 18, 2023 12:00am Start: 08-18-2023 take 1 tablet by trina th twice daily Hydrocodone-Acetaminophen Active 1 TABLE T PO TWICE A DAY August 18, 2023 12:00am Start: 06-07-2023 End: 06-10-2023 Hydrocodone-Acetaminophen 5- 325 mg tablet Discontinued 1 {tbl} PO EVERY 6 HOURS as needed for pain June 07, 2023 1:00am June 10, 2023 12:29pm Start: 06-07-2023 End: 06-10-2023 take 1 tablet by mouth every six hours Hydrocodone-Acetaminophen Discontinued 1 TABLET PO EVERY 6 HOURS June 07, 2023 1:00am June 10, 2023 12:29pm Start: 01-27-2023 End: 02-03-2023 take 1-2 tablets by mouth every six hours as needed for pain HYDROcodone-acetaminophen (NORCO) 5-325 mg per tablet Indications: Peripheral arterial disease (HCC) , Acute post-operative pain Take 1-2 tablets by mouth every 6 hours as needed for pain for up to 7 days. 56 tablet 0 01/27/2023 02/03/2023 Active Start: 01-13-2023 End: 01-20-2023 take 1-2 tablets by mouth every eight hours as needed for pain HYDROcodone-acetaminophen (NORCO) 5-325 mg per tablet Indications: Peripheral arterial disease (HCC) , Acute post-operative pain Take 1-2 tablets by mouth every 8 hours as needed for pain for up to 7 days. 42 tablet 0 01/13/2023 01/20/2023 Active Start: 03-09-2021 End: 09-24-2021 take 1 tablet by mouth every six hours as needed HYDROcodone-acetaminophen (NORCO) 5-325 mg per tablet Take 1 tablet by mouth every 6 hours as needed. 03/09/2021 09/24/2021 Discontinued Start: 10-01-2017 End: 09-20-2020 Hydrocodone-Acetaminophen 1 TABLET tablet Discontinued 1 - 2 {tbl} PO EVERY 6 HOURS NEEDED as needed for Mild-Moderate Pain (1-5/10) 19 11October 01, 2017 12:00am September 20, 2020 6:36pm Start: 10-01-2017 End: 09-20-2020 take 1 tablet by mouth every six hours as needed Hydrocodone-Acetaminophen Discontinued 1 - 2 TABLET PO EVERY 6 HOURS NEEDED 20 October 01, 2017 12:00am September 20, 2020 6:36pm Comment on above: Take 1 tablet by trina th every 6 hours as needed. Take 1-2 tablets by mouth every 8 hours as needed for pain for up to 7 days. Take 1-2 tablets by mouth every 6 hours as needed for pain for up to 7 days. acetaminophen 300 mg / oxyCODONE hydrochloride 2.5 mg oral tablet (20 sources) Opioid Agonist Start: 01-04-2024 take 2 tablets by mouth once daily NALOCET 2.5-300 mg per tablet Take 2 tablets by mouth once daily. 01/04/2024 Active Start: 06-19-2023 Oxycodone-Acet aminophen 5-325 mg tablet Active 1 {tbl} PO TWICE A DAY as needed for pain June 19, 2023 1:00am Start: 06-19-2023 take 1 tablet by trina th twice daily Oxycodone-Acetaminophen Active 1 TABLET PO TWICE A DAY June 19, 2023 1:00am Start: 01-17-2022 End: 06-07-2023 Oxycodone-Acetaminophen (Per cocet) 5-325 mg tablet Discontinued 1 {tbl} PO EVERY 6 HOURS as needed for pain 10 January 17, 2022 June 07, 2023 5:52pm oxyCODONE-acetam inophen (PERCOCET) 5-325 mg tablet Take by mouth every 8 hours as needed for pain. Active amitriptyline hydrochloride 25 mg oral tablet (20 sources) Tricyclic Antidepressant Start: 09-07-2023 End: 03-05-2024 take 1 tablet by mouth once daily at bedtime amitriptyline (ELAVIL) 25 mg tablet Indications: Migraine without aura, intractable, without status migrainosus Take 1 tablet by mouth daily at bedtime. 30 tablet 5 09/07/2023 Active Start: 07-01-2023 End: 12-28-2023 take 2 tablets by mouth once daily at bedtime amitriptyline (ELAVIL) 25 mg tablet Indications: Migraine without aura, intractable, without status migrainosus Take 2 tablets by mouth daily at bedtime. 60 tablet 5 07/01/2023 09/07/2023 Discontinued Start: 01-17-2022 End: 06-08-2022 Amitriptyline 50 mg tablet A ctive 25 mg PO AT BEDTIME January 17, 2022 12:00am Start: 01-17-2022 take 25 mg by mouth at bedtime Amitriptyline Active 25 MG PO AT BEDTIME January 17, 2022 12:00am Start: 01-17-2022 take 50 mg by mouth at bedtime Amitriptyline Active 50 MG PO AT BEDTIME January 16, 2022 11:00pm Start: 01-17-2022 Amitriptyline Active MG January 16, 2022 11:00pm Start: 10-28-2021 End: 06-08-2022 amitriptyline (ELAVIL) 10 mg tablet Take 10 mg by mouth daily at bedtime. For 2 weeks then to 25mg per neuro 0 10/28/2021 06/08/2022 Discontinued (Other) End: 07-01-2023 take 1 tablet by mouth once daily at bedtime amitriptyline (ELAVIL) 25 mg tablet Take 1 tablet by mouth daily at bedtime. 07/01/2023 Discontinued Comment on above: Take 10 mg by mouth daily at bedtime. For 2 weeks then to 25mg per neuro q 24 HR. Take 1 tablet by trina th daily at bedtime. 25 mg q 24 HR. Take 2 tablets by mo ut daily at bedtime. amoxicillin 875 mg / clavulanate 125 mg oral tablet (14 sources) Penicillin-class Antibacterial Start: 01-17-2022 End: 06-07-2023 take 1 tablet by mouth twice daily amoxicillin-cla vulanic acid (AUGMENTIN) 875-125 mg per tablet Take 1 tablet by mouth twice daily for 10 days. 20 tablet 0 07/24/2022 08/03/2022 Active Start: 01-17-2022 End: 06-07-2023 take 1 tablet by mouth twice daily Amoxicillin-Pot Clavulanate Discontinued 1 TABLET PO TWICE A DAY January 17, 2022 12:00am June 07, 2023 5:36pm Comment on above: Take 1 tablet by trina th twice daily for 10 days. aspirin 81 mg chewable tablet (20 sources) Platelet Aggregation Inhibitor, Nonsteroidal Anti-inflammatory Drug Start: 08-18-2023 Aspirin 81 mg tablet,chewable Active 1 {tbl} PO EVERY EVENING August 18, 2023 12:00am Start: 07-01-2023 End: 06-30-2024 take 1 tablet by mouth once daily aspirin 81 mg chewable tablet Indications: Peripheral artery disease Take 1 tablet by mouth once daily. 30 tablet 11 07/01/2023 Active Start: 06-10-2020 End: 06-25-2023 take 1 tablet by mouth once daily Aspirin 81 mg tablet,delayed release (DR/EC) Discontinued 81 mg PO DAILY September 20, 2020 12:00am June 25, 2023 1:48pm Comment on above: Take 1 tablet by trina th once daily. Take 81 mg by mouth once daily. atorvastatin 80 mg oral tablet (20 sources) HMG-CoA Reductase Inhibitor Start: End: take 1 tablet by mouth once daily at bedtime atorvastatin (LIPITOR) 80 mg tablet Indications: Mixed hyperlipidemia Take 1 tablet by mouth daily at bedtime. 90 tablet 3 03/16/2024 03/16/2025 Active Start: 12-29-2022 End: 03-16-2024 take 1 tablet by mouth once daily at bedtime atorvastatin (LIPITOR) 40 mg tablet Take 1 tablet by mouth daily at bedtime. 90 tablet 1 09/14/2023 03/16/2024 Discontinued Start: 09-17-2015 take 2 tablets by mo uth at bedtime Atorvastatin 20 MG tablet Active 40 mg PO AT BEDTIME September 17, 2015 12:00am Start: 09-17-2015 take 40 mg by mouth at bedtime Atorvastatin Active 40 MG PO AT BEDTIME September 17, 2015 12:00am Start: 09-17-2015 take 20 mg by mouth at bedtime Atorvastatin Active 20 MG PO AT BEDTIME September 16, 2015 11:00pm Comment on above: Take 40 mg by mouth daily at bedtime. Take 1 tablet by trina th daily at bedtime. cefdinir 300 mg oral capsule (2 sources) Cephalosporin Antibacterial Start: 01-29-20 End: 02-05-20 take 1 capsule by mouth twice daily cefdinir (OMNICEF) 300 mg capsule Indications: Diverticulitis Take 1 capsule by mouth twice daily for 7 days. 14 capsule 0 01/28/2022 02/04/2022 Active Comment on above: Take 1 capsule by mo [facility] twice daily for 7 days. clopidogrel 75 mg oral tablet (20 sources) [id number] Platelet Inhibitor Start: 09-07-19 End: 02-22-20 take 1 tablet by mouth once daily clopidogrel (PLAVIX) 75 mg tablet Take 1 tablet by mouth once daily. 90 tablet 3 02/22/2024 Active Start: 08-25-2023 take 1 tablet by trina once daily clopidogrel (PLAVIX) 75 mg tablet Take 1 tablet by mouth once daily. 90 tablet 2 08/25/2023 Suspended Start: 01-11-2023 End: 02-10-2023 take 1 tablet by mouth once daily clopidogrel (PLAVIX) 75 mg tablet Take 1 tablet by mouth once daily. Until xarelto is started. 30 tablet 0 01/11/2023 01/13/2023 Discontinued (Changing Therapy/Dosage Form) Comment on above: Take 1 tablet by trina once daily. Until xarelto is started. Take 75 mg by mouth once daily. diazePAM 2 mg oral tablet (2 sources) Benzodiazepine Start: 09-17-19 take 1 tablet by mouth three times daily Diazepam (Valium) 2 mg tablet Active 2 MG PO THREE TIMES A DAY September 16, 2021 12:00am dicyclomine hydrochloride 20 mg oral tablet (20 sources) Anticholinergic Start: 01-07-20 take 1 tablet by mouth twice daily as needed for pain dicyclomine (BENTYL) 20 mg tablet Indications: LLQ abdominal pain Take 1 tablet by mouth two times a day as needed (abdominal pain). 60 tablet 1 01/07/2024 Active 24 hr dilTIAZem hydrochloride 120 mg extended release oral capsule (20 sources) Calcium Channel Jasmina Start: 10-28-19 take 1 capsule by mouth once daily dilTIAZem CR (TIAZAC, TAZTIA XT) 120 mg 24 hr capsule Take 1 capsule by mouth once daily. 30 capsule 11 10/28/2023 Active doxycycline hyclate 100 mg oral capsule (3 sources) Tetracycline-class Drug Start: 06-29-19 End: 07-09-19 take 1 capsule by mouth twice daily doxycycline hyclate (VIBRAMYCIN) 100 mg capsule Take 1 capsule by mouth two times a day for 10 days. 20 capsule 0 06/29/2023 07/09/2023 Active Comment on above: Take 1 capsule by mo [facility] two times a day for 10 days. FLUoxetine 40 mg oral capsule (20 sources) Serotonin Reuptake Inhibitor Start: 09-23-19 End: 09-23-19 take 1 capsule by mouth once daily FLUoxetine (PROZAC) 40 mg capsule Indications: Raynaud's phenomenon without gangrene , Anxiety with depression Take 1 capsule by mouth once daily. 90 capsule 3 09/22/2024 09/22/2025 Active Start: 08-31-2023 End: 08-30-2024 take 1 capsule by mouth once daily FLUoxetine (PROZAC) 40 mg capsule Indications: Raynaud's phenomenon without gangrene , Anxiety with depression Take 1 capsule by mouth once daily. 30 capsule 11 08/31/2023 Active Start: 11-05-2021 End: 05-04-2022 take 1 capsule by mouth once daily FLUoxetine (PROZAC) 40 mg capsule Indications: Raynaud's phenomenon without gangrene Take 1 capsule by mouth once daily. 30 capsule 5 11/05/2021 Active Start: 09-20-2020 End: 02-24-2024 take 1 capsule by mouth once daily Fluoxetine 20 mg capsule Active 20 mg PO DAILY September 20, 2020 12:00am Comment on above: Take 1 capsule by [facility] once daily. 1.5 ml fremanezumab-vfrm 150 mg/ml auto-injector (20 sources) Start: 08-18-2023 Fremanezumab-Vfrm (Fremanezumab-Vfrm 225 Mg/1.5 Ml Subcutaneous Auto-Injector) 225 mg/1.5 mL auto-injector Active mg SC August 18, 2023 12:00am Start: 08-18-2023 Fremanezumab-V frm (Fremanezumab-Vfrm 225 Mg/1.5 Ml Subcutaneous Auto-Injector) 225 mg/1.5 mL auto-injector Active MG SC August 18, 2023 12:00am End: 08-09-2024 inject 1.5 mL by subcutaneous injection every month fremanezumab-vfrm (AJOVY AUTOINJECTOR) 225 mg/1.5 mL auto-injector Ajovy 225 mg/1.5 mL subcutaneous auto-injector Inject 1.5 mL subcutaneously once a month 08/09/2024 Discontinued Comment on above: Ajovy 225 mg/1.5 mL subcutaneous auto-injector Inject 1.5 mL subcutaneously once a month gabapentin 300 mg oral capsule (20 sources) Anti-epileptic Agent Start: take 1 capsule by mouth every eight hours Gabapentin 300 mg capsule Active 300 mg PO Q8H June 07, 2023 1:00am Start: 06-07-2023 End: 06-19-2023 take 1 capsule by mouth once daily as needed Gabapentin 100 mg capsule Discontinued 100 mg PO DAILY NEEDED June 07, 2023 1:00am June 19, 2023 2:34pm Start: 02-18-2023 take 1 capsule by mo ut every twelve hours gabapentin (NEURONTIN) 300 mg capsule Take 1 capsule by mouth every 12 hours. 02/18/2023 Active take 1 capsule by mo uth three times daily gabapentin (NEURONTIN) 100 mg capsule TAKE 1 CAPSULE BY MOUTH THREE TIMES DAILY FOR 28 DAYS 0 Active Comment on above: TAKE 1 CAPSULE BY MO UT THREE TIMES DAILY FOR 28 DAYS Take 1 capsule by mo [facility] every 12 hours. 1 ml guselkumab 100 mg/ml auto-injector (20 sources) Interleukin-23 Antagonist Start: 08-31-2022 TREMFYA 100 mg/mL AutoInjector Inject 100 mg subcutaneously every 8 weeks. 08/31/2022 Active Start: 08-31-2022 TREMFYA 100 mg /mL AutoInjector every 3 months. 0 08/31/2022 Suspended Comment on above: every 3 months. Iron Ag,[id number] Sa-Sto (Niferex (Sumalate-Quatrefol ic)) 150 mg iron- 60 mg-1 mg tablet (6 sources) Start: 06-10-2023 take 1 tablet by mouth once daily Iron Ag,[id number] a-Sto (Niferex (Sumalate-Quatrefoli c)) 150 mg iron- 60 mg-1 mg tablet Active 1 {tbl} PO DAILY 60 June 10, 2023 1:00am Start: 06-10-2023 take 1 tablet by trina once daily Iron Ag,[id number] (Niferex (Sumalate-Quatrefolic)) 150 mg iron- 60 mg-1 mg tablet Active 1 TABLET PO DAILY June 10, 2023 1:00am Start: 06-10-2023 take 1 tablet by trina th once daily Iron Ag,[id number] (Niferex (Sumalate-Quatrefolic)) 150 mg iron- 60 mg-1 mg tablet Active 1 TABLET PO DAILY June 10, 2023 12:00am iv contrast (will be provided with radiology test) (2 sources) Start: 09-05-2024 End: 09-06-2024 inject 1 dose intravenously once iv contrast (will be provided with radiology test) CTA ABD/PEL LE - No IV access, insert saline lock prior to the sedation, infusion, injection for imaging exam. Discontinue saline lock post exam. If Pt. has a central line or IVAD, may access for administration according to line specific nursing protocol. Once exam is complete flush line and de-access according to line specific nursing protocol in the CT contrast administration guidelines link. 1 each 09/05/2024 09/06/2024 Active Start: 10-27-2022 End: 10-28-2022 iv contrast (will be provide d with radiology test) CT ABD/PEL -Inject, intravenously, once for 1 dose.No IV access, insert saline lock prior to the beginning of sedation, infusion, injection of imaging exam. Discontinue saline lock post exam. If Pt. has a central line or IVAD, may access for administration according to line specific nursing protocol. Once exam is complete flush line and de-access according to line specific nursing protocol in the CT contrast administration guidelines link. 1 Each 0 10/27/2022 10/28/2022 Comment on above: CT ABD/PEL -Inject, intravenously, once for 1 dose.No IV access, insert saline lock prior to the beginning of sedation, infusion, injection of imaging exam. Discontinue saline lock post exam. If Pt. has a central line or IVAD, may access for administration according to line specific nursing protocol. Once exam is complete flush line and de-access according to line specific nursing protocol in the CT contrast administration guidelines link. 1 ml ixekizumab 80 mg/ml auto-injector (20 sources) Interleukin-17A Antagonist Start: 09-20-2020 Ixekizumab (Taltz Autoinjector) 80 mg/mL auto-injector Active 80 mg SC EVERY MONTH September 20, 2020 12:00am On Hold: changed to diff med End: 09-01-2022 inject 80 mg by subcutaneous injection every month ixekizumab (TALTZ) 80 mg/mL syringe Inject 80 mg subcutaneously once every month. 09/01/2022 Discontinued Comment on above: Inject 80 mg subcuta neously once every month. naproxen 500 mg oral tablet (2 sources) Nonsteroidal Anti-inflammatory Drug Start: 021 take 1 tablet by mouth twice daily Naproxen (Naprosyn) 500 mg tablet Active 500 MG PO TWICE A DAY April 04, 2021 1:00am 24 hr NIFEdipine 30 mg extended release oral tablet (14 sources) Dihydropyridine Calcium Channel Jasmina Start: 016 take 1 tablet by mouth once daily as needed Nifedipine 30 MG tablet extended release Active 30 mg PO DAILY as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 ng/mL Ql (U) Negative < 200 ng/mL [facility] No Panel InformationOrdered By: Malinda Calvert on 09-06-2024 Urine Buprenorphine Qualitative Negative < 200 ng/mL [facility] Urine Oxycodone Screen Positive < 100 ng/mL [facility] Comment on above: If confirmation test ing is needed, a separate order will be required to send out testing to the reference laboratory. Quantitative urine opiates m easurementOrdered By: Malinda Calvert on 09-06-2024 Opiates Ql (U) Negative < 300 ng/mL [facility] Screening urine fentanyl elian surementOrdered By: Malinda Calvert on 09-06-2024 fentaNYL Screen Ql (U) Negative [facility] Urine Drug Screen (VISTA)on 09-06-2024 AMPHETAMINES Negative Normal <1000 ng/mL [facility] Comment on above: Order Comment: UNK Performed By: #### L 505.5000, L3410.9992 #### [facility] [address] [place], [place], [id number] BARBITIURATES Negative Normal < 200 ng/mL [facility] Comment on above: Order Comment: UNK Performed By: #### L 505.5000, L3410.9992 #### [facility] [address] [place], [place], [address] BENZODIAZIPINE Negative Normal < 200 ng/mL [facility] Comment on above: Order Comment: UNK Performed By: #### L 505.5000, L3410.9992 #### [facility] [address] [place], [address] BUP Ur Drug Scr Negative Normal < 200 ng/mL [facility] Comment on above: Order Comment: UNK Performed By: #### L 505.5000, L3410.9992 #### [facility] [address] [place], [address] COCAINE Negative Normal < 300 ng/mL [facility] Comment on above: Order Comment: UNK Performed By: #### L 505.5000, L3410.9992 #### [facility] [address] [place], [address] Fentanyl Negative Normal [facility] Comment on above: Order Comment: UNK Performed By: #### L 505.5000, L3410.9992 #### [facility] [address] [place], [address] METHADONE Negative Normal < 300 ng/mL [facility] Comment on above: Order Comment: UNK Performed By: #### L 505.5000, L3410.9992 #### [facility] [address] [place], [address] OPIATES Negative Normal < 300 ng/mL [facility] Comment on above: Order Comment: UNK Performed By: #### L 505.5000, L3410.9992 #### [facility] [address] [place], [address] OXYCODONE Positive Normal < 100 ng/mL [facility] Comment on above: Order Comment: UNK Result Comment: If c onfirmation testing is needed, a separate order will be required to send out testing to the reference laboratory. Performed By: #### L 505.5000, L3410.9992 #### [facility] [address] [place], [address] PCP Negative Normal < 25 ng/mL [facility] Comment on above: Order Comment: UNK Performed By: #### L 505.5000, L3410.9992 #### [facility] [address] [place], [place], [id number] THC Negative Normal < 50 ng/mL [facility] Comment on above: Order Comment: UNK Performed By: #### L 505.5000, L3410.9992 #### [facility] [address] [place], [place], [id number] Urine benzodiazepine levelOr dered By: Malinda Calvert on 09-06-2024 Benzodiazepines Ql (U) Negative < 200 ng/mL [facility] Urine cocaine levelOrdered B y: Malinda Basali on 09-06-2024 Cocaine Ql (U) Negative < 300 ng/mL [facility] Urine lbzxp-2-hqqmtbytjxymkk abinol (THC) measurementOrdered By: Malinda Calvert on 09-06-2024 Cannabinoids Screen Ql (U) Negative < 50 ng/mL [facility] Urine phencyclidine (PCP) de tectionOrdered By: Malinda Calvert on 09-06-2024 Phencyclidine Ql (U) Negative < 25 ng/mL [facility] CNOVon 09-05-2024 CNOV Office Visit (ZAYNABSAV ) CHOCO MALDONADO ([id number]) 1960 M Date Time Provider Department 09/05/24 9:30 AM CHRISTIANA ARRINGTON During your visit today, we recorded the following information about you: Blood pressure Weight Height 162/70 93 kg 1.88 m Christiana Arrington MD 09/05/2024 9:17 AM Signed [facility] [place] DEPARTMENT OF VASCULAR SURGERY OUTPATIENT VISIT DATE September 05, 2024 OUTPATIENT VISIT TYPE ESTABLISHED SERVICE DATE: 09/05/2024 SERVICE TIME: 9:04 AM PRIMARY CARE PHYSICIAN: Linda Parish MD HISTORY OF PRESENT ILLNESS: Mr. Maldonado is a 63 year old male who presents today for a vascular surgery follow-up visit Surgery/Procedure Date: 02/14/2024 Surgeon(s)/Proceduralist(s) and Mash Filter Cloth Changer(s): * Christiana Arrington MD - Primary INTERVENTIONAL PROCEDURE: Ultrasound-guided left common femoral access right lower extremity angiogram Balloon angioplasty of proximal anastamosis and mid bypass stenosis with 4mm drug-coated balloon. Surgery/Procedure Date: 07/29/2023 Surgeon(s)/Proceduralist(s) and Mash Filter Cloth Changer(s): * Christiana Arrington MD - Primary INTERVENTIONAL PROCEDURE: Ultrasound-guided left common femoral access right lower extremity angiogram Balloon angioplasty of proximal anastamosis with 4mm drug-coated balloon. Surgery/Procedure Date: 05/14/2023 Surgeon(s)/Proceduralist(s) and Mash Filter Cloth Changer(s): * Christiana Arrington MD - Primary Procedure(s): Redo right above knee popliteal to posterior tibial bypass with reversed right saphenous vein Ligation of prior fem-tp trunk bypass right saphenous vein harvest Completion angiogram Surgery/Procedure Date: 04/29/2023 Surgeon(s)/Proceduralist(s) and Mash Filter Cloth Changer(s): * Cecille Sarabia MD - Primary Procedure Performed: 1) Diagnostic angiogram of the RIGHT lower extremity 2) Penumbra suction thrombectomy with CAT 7 3) 4mm DCB of the distal PTFE-TP trunk anastomosis 4) 3mm POBA of the distal TPT into the PT 4) Completion angiogram 5) Placement of a Proglide percutaneous closure device in the LEFT groin. Prior bypass w tapered 4-7mm ptfe fem-bk pop, occluded within months of insertion prompting lysis, now s/p fem-pt bypass w vein Stopped ac due to gi bleed, hosptilaized 06/19/23-06/25/23, 08/[address] Aranda, then went to [facility] and seen by Dr Grey. PAST MEDICAL HISTORY Diagnosis Date Acute diverticulitis Aortic insufficiency Arthritis Ascending aorta dilatation 10/28/2023 Bursitis of elbow left Coronary artery disease mild nonobstructive Diverticulitis History of transfusion Hypertension Migraines PAD (peripheral artery disease) Palpitations Pinched nerve 11/04/2020 low back Psoriasis Raynaud disease SVT (supraventricular tachycardia) (HCC) Tobacco abuse PAST SURGICAL HISTORY Procedure Laterality Date COLON SURGERY HX COLONOSCOPY FLX DX W/COLLJ SPEC WHEN PFRMD 05/23/2014 Colonoscopy COLONOSCOPY FLX DX W/COLLJ SPEC WHEN PFRMD 09/24/2017 Colonoscopy COLONOSCOPY FLX DX W/COLLJ SPEC WHEN PFRMD 04/16/2021 ESOPHAGOGASTRODUODENOSCOPY TRANSORAL DIAGNOSTIC 05/23/2014 EGD ESOPHAGOGASTRODUODENOSCOPY TRANSORAL DIAGNOSTIC 08/15/2014 EGD HEMORRHOIDECTOMY INT AND XTRNL 2/> COLUMN/FAHEEM 10/01/2017 left posterior PAST SURGICAL HISTORY OF 2008 Pain injections lumbar PAST SURGICAL HISTORY OF 08/03/2022 colostomy PAST SURGICAL HISTORY OF Right 12/2022 right popliteal to tibioperoneal trunk bypass - REVISION 05/14/2023 RT/LT [facility]S 08/09/2020 [facility] SOCIAL HISTORY Social History Tobacco Use Smoking status: Former Current packs/day: 0.00 Average packs/day: 1 pack/day for 40.0 years (40.0 ttl pk-yrs) Types: Cigarettes Start date: 1983 Quit date: 04/24/2023 Years since quittin.3 Passive exposure: Past Smokeless tobacco: Never Vaping Use Vaping status: Never Used Substance Use Topics Alcohol use: Yes Alcohol/week: 3.0 standard drinks of alcohol Types: 3 Cans of beer per week Comment: 3-4 drinks per day 5 days per week; Drug use: No MEDICATIONS: risankizumab-rzaa (SKYRIZI) 150 mg/mL injection Inject 150 mg subcutaneously once every month. atorvastatin (LIPITOR) 80 mg tablet Take 1 tablet by mouth daily at bedtime. clopidogrel (PLAVIX) 75 mg tablet Take 1 tablet by mouth once daily. oxyCODONE-acetaminophen (PERCOCET) 5-325 mg tablet Take by mouth every 8 hours as needed for pain. dicyclomine (BENTYL) 20 mg tablet Take 1 tablet by mouth two times a day as needed (abdominal pain). dilTIAZem CR (TIAZAC, TAZTIA XT) 120 mg 24 hr capsule Take 1 capsule by mouth once daily. amitriptyline (ELAVIL) 25 mg tablet Take 1 tablet by mouth daily at bedtime. iron polysaccharide complex (FERREX-150) 150 mg iron capsule Take 150 mg by mouth once daily. ondansetron orally disintegrating (ZOFRAN ODT) 4 mg disintegrating tablet tiZANidine (ZANAFLEX) 4 mg tablet Take (more content not included)... Normal [facility] Creatinine + eGFR Pnl SerPlB ldon 09-05-2024 Creatinine and Glomerular filtration rate.predicted panel (S/P/Bld) 93 mL/min/1.73m??? Normal >=60 [facility] Comment on above: Order Comment: Speci michael Type: BLOOD SPECIMENOrdering Facility: [facility] Address: [address] [place] [address] Result Comment: Chirag mated Glomerular Filtration Rate (eGFR) is calculated using the 2020 CKD-EPI creatinine equation. This equation utilizes serum creatinine, sex, and age as parameters. The creatinine assay has traceable calibration to isotope dilution-mass spectrometry. Refer to KDIGO guidelines for clinical interpretation. In patients with unstable renal function, e.g. those with acute kidney injury, the eGFR may not accurately reflect actual GFR. Performed By: #### 4 5066-8 ####[facility] [id number] [place] [address] [place] Creatinine and Glomerular fi ltration rate.predicted panel (S/P/Bld)on 09-05-2024 Creatinine [Mass/Vol] 0.93 mg/dL Normal 0.73-1.22 [facility] Comment on above: Order Comment: Ariana rodriguez Type: BLOOD SPECIMENOrdering Facility: [facility] Address: [address] [place] [address] Performed By: #### 4 5066-8 ####[facility] [id number] [place] [address] [place] PVR ANK PRESS KATIE VAS LABon 09-05-2024 PVR ANK PRESS KATIE VAS LAB Non-Invasive Vascular Laboratory Formerly [facility] Lower Extremity Arterial Physiology Study Bilateral/Complete Date of service/time: 09/05/2024 8:05:18 AM Name: MR. CHOCO MALDONADO Date of : 1960 Age: 63 years Gender: M Clinical Indication Follow up:. Post operative repair surveillance 05/14/2023 -- Redo right above knee popliteal to posterior tibial bypass with reversed right saphenous vein; Ligation of prior fem-tp trunk bypass 07/29/2023 -- Balloon angioplasty of proximal anastamosis with 4mm drug-coated balloon. 02/14/2024 -- Balloon angioplasty of proximal anastamosis and mid bypass stenosis with 4mm drug-coated balloon. TECHNIQUE -------- An arterial physiological examination was performed, including measurement of blood pressures using continuous wave Doppler and recording of plethysmographic with or without Doppler waveforms at the below-mentioned limb segments. FINDINGS -------- RIGHT SIDE AT REST Right Doppler Waveforms Dorsalis pedis: Monophasic. Post tibial: Monophasic. Right Pressures Brachial: 177 mmHg Ankle dorsalis pedis: 125 mmHg SAVANNA: 0.71 Ankle posterior tibial: 127 mmHg SAVANNA: 0.72 Right PVR Waveforms Ankle: Mildly dampened. LEFT SIDE AT REST Left Doppler Waveforms Dorsalis pedis: Multiphasic. Post tibial: Multiphasic. Left Pressures Brachial: 168 mmHg Ankle dorsalis pedis: 190 mmHg SAVANNA: 1.07 Ankle posterior tibial: 200 mmHg SAVANNA: 1.13 Left PVR Waveforms Ankle: Normal. IMPRESSION Compared to prior study of 05/30/2024, (done at [facility]) decrease in resting right ankle brachial index from 1.04 to 0.72 on today's exam. No significant change in left. RIGHT SIDE Resting right ankle brachial index: 0.72 Abnormal ankle brachial index at rest diagnostic of peripheral artery disease. Right ankle: Mild disease at rest. LEFT SIDE Resting left ankle brachial index: 1.13 Normal ankle brachial index at rest in the left leg. Left ankle: Normal at rest. Technologist: Terrie Mantilla RVT Ordering physician: CHRISTIANA ARRINGTON Interpreting physician: ELIZA Chairez MD Final CC [facility] : [id number] icsSISUID See Link below for Image Normal [facility] LEG ARTERIAL PERIPH UNL V LABon 09-05-2024 LEG ARTERIAL PERIPH UNL VAS LAB Non-Invasive Vascular Laboratory Formerly [facility] Lower Extremity Arterial Duplex Unilateral - Right Date of service/time: 09/05/2024 8:10:22 AM Name: MR. CHOCO MALDONADO Date of : 1960 Age: 63 years Gender: M Clinical Indication Follow up:. Post operative repair surveillance 05/14/2023 -- Redo right above knee popliteal to posterior tibial bypass with reversed right saphenous vein; Ligation of prior fem-tp trunk bypass 07/29/2023 -- Balloon angioplasty of proximal anastamosis with 4mm drug-coated balloon. 02/14/2024 -- Balloon angioplasty of proximal anastamosis and mid bypass stenosis with 4mm drug-coated balloon. TECHNIQUE -------- An arterial duplex ultrasound examination was performed, including grayscale imaging and color Doppler and spectral Doppler examination of the below mentioned arteries. FINDINGS -------- RIGHT ARTERIES External iliac distal: PSV: 144 cm/s. EDV: 0 cm/s. Multiphasic waveform. Common femoral mid: PSV: 112 cm/s. EDV: 0 cm/s. Multiphasic waveform. Profunda femoral proximal: PSV: 160 cm/s. EDV: 0 cm/s. Multiphasic waveform. Superficial femoral origin: PSV: 119 cm/s. EDV: 5 cm/s. Multiphasic waveform. Superficial femoral proximal: PSV: 92 cm/s. EDV: 5 cm/s. Multiphasic waveform. VESSEL/GRAFT Superficial femoral artery proximal: PSV: 70 cm/s. EDV: 0 cm/s. Multiphasic waveform. Superficial femoral artery proximal: PSV: 146 cm/s. EDV: 13 cm/s. Multiphasic waveform. Superficial femoral artery mid: PSV: 93 cm/s. EDV: 9 cm/s. Monophasic, high resistive waveform. Superficial femoral artery mid: PSV: 120 cm/s. EDV: 10 cm/s. Monophasic, high resistive waveform. Femoral-posterior tibial graft proximal anastomosis: PSV: 645 cm/s. EDV: 96 cm/s. Monophasic, intermediate resistive waveform. Femoral-posterior tibial graft proximal: PSV: 380 cm/s. EDV: 54 cm/s. Abnormal flow. Femoral-posterior tibial graft distal thigh: PSV: 95 cm/s. EDV: 17 cm/s. Monophasic, intermediate resistive waveform. Femoral-posterior tibial graft knee crease: PSV: 53 cm/s. EDV: 12 cm/s. Monophasic, low resistive waveform. Femoral-posterior tibial graft proximal calf: PSV: 38 cm/s. EDV: 8 cm/s. Monophasic, intermediate resistive waveform. Femoral-posterior tibial graft distal: PSV: 36 cm/s. EDV: 9 cm/s. Monophasic, intermediate resistive waveform. Femoral-posterior tibial graft distal anastomosis: PSV: 36 cm/s. EDV: 8 cm/s. Monophasic, intermediate resistive waveform. Posterior tibial artery proximal: PSV: 57 cm/s. EDV: 15 cm/s. Monophasic, intermediate resistive waveform. Posterior tibial artery mid: PSV: 66 cm/s. EDV: 16 cm/s. Monophasic, intermediate resistive waveform. Posterior tibial artery distal: PSV: 53 cm/s. EDV: 10 cm/s. Monophasic, intermediate resistive waveform. IMPRESSION Compared to prior study of 05/30/2024, (done at [facility]) new finding of 50-99% stenosis at proximal right superficial femoral artery, otherwise no other change. RIGHT SIDE External iliac artery distal: plaque noted without evidence of hemodynamically significant stenosis . Common femoral artery : plaque noted without evidence of hemodynamically significant stenosis . Profunda femoral artery proximal: patent . Superficial femoral artery proximal: 50-99% stenosis . Femoral-posterior tibial graft proximal anastomosis: 50-99% stenosis . Posterior tibial artery throughout: patent . Technologist: Terrie Mantilla T Ordering physician: CHRISTIANA ARRINGTON Interpreting physician: Christiana Arrington MD, ELIZA Final CC [facility] : [id number] See Link below for Image Normal [facility] CBC W Auto Differential pane l (Bld)on 08-26-2024 Basophils (Bld) [#/Vol] 0.09 10*3/uL Normal <0.11 [facility] Comment on above: Order Comment: Speci men Type: BLOOD SPECIMENOrdering Facility: [facility] Address: [address] [place] [address] Performed By: #### 5 7021-8 ####[facility] LABCLIA [id number] [place] [address] [place] Basophils/100 WBC (Bld) 1.2 % Normal [facility] Comment on above: Order Comment: Speci men Type: BLOOD SPECIMENOrdering Facility: [facility] Address: [address] [place] [address] Performed By: #### 5 7021-8 ####[facility] LABCLIA [id number] [place] [address] [place] Differential cell count method Nom (Bld) Auto Normal [facility] Comment on above: Order Comment: Speci men Type: BLOOD SPECIMENOrdering Facility: [facility] Address: [address] [place] [address] Performed By: #### 5 7021-8 ####[facility] LABCLIA [id number] [place] [address] [place] Eosinophils (Bld) [#/Vol] 0.18 10*3/uL Normal <0.46 [facility] Comment on above: Order Comment: Speci men Type: BLOOD SPECIMENOrdering Facility: [facility] Address: [address] [place] [address] Performed By: #### 5 7021-8 ####[facility] LABCLIA [id number] [address], [place] [address] [place] Eosinophils/100 WBC (Bld) 2.4 % Normal [facility] Comment on above: Order Comment: Speci men Type: BLOOD SPECIMENOrdering Facility: [facility] Address: [address] [place] [address] Performed By: #### 5 7021-8 ####[facility] LABCLIA [id number] [address], [place] [address] [place] Erythrocyte distribution width (RBC) [Ratio] 15.7 % High 11.5-15.0 [facility] Comment on above: Order Comment: Speci men Type: BLOOD SPECIMENOrdering Facility: [facility] Address: [address] [place] [address] Performed By: #### 5 7021-8 ####[facility] LABIA [id number] [address], [place] [address] [place] Hematocrit (Bld) [Volume fraction] 42.7 % Normal 39.0-51.0 [facility] Comment on above: Order Comment: Speci men Type: BLOOD SPECIMENOrdering Facility: [facility] Address: [address] [place] [address] Performed By: #### 5 7021-8 ####[facility] LABCLIA [id number] [address], [facility] [place] Hemoglobin (Bld) [Mass/Vol] 12.8 g/dL Low 13.0-17.0 [facility] Comment on above: Order Comment: Speci men Type: BLOOD SPECIMENOrdering Facility: [facility] Address: [address] [place] [address] Performed By: #### 5 7021-8 ####[facility] LABCLIA [id number] [address], [facility] [place] Immature granulocytes (Bld) [#/Vol] 10*3/uL Normal <0.10 [facility] Comment on above: Order Comment: Speci men Type: BLOOD SPECIMENOrdering Facility: [facility] Address: [address] [place] [address] Performed By: #### 5 7021-8 ####[facility] LABCLIA [id number] [place] [address] [place] Immature granulocytes/100 WBC (Bld) 0.3 % Normal [facility] Comment on above: Order Comment: Speci men Type: BLOOD SPECIMENOrdering Facility: [facility] Address: [address] [place] [address] Performed By: #### 5 7021-8 ####[facility] LABCLIA [id number] [place] [address] [place] Lymphocytes (Bld) [#/Vol] 2.10 10*3/uL Normal 1.00-4.00 [facility] Comment on above: Order Comment: Speci men Type: BLOOD SPECIMENOrdering Facility: [facility] Address: [address] [place] [address] Performed By: #### 5 7021-8 ####[facility] LABCLIA [id number] [place] [address] [place] Lymphocytes/100 WBC (Bld) 28.2 % Normal [facility] Comment on above: Order Comment: Speci men Type: BLOOD SPECIMENOrdering Facility: [facility] Address: [address] [place] [address] Performed By: #### 5 7021-8 ####[facility] LABCLIA [id number] [place] [address] [place] MCH (RBC) [Entitic mass] 25.3 pg Low 26.0-34.0 [facility] Comment on above: Order Comment: Speci men Type: BLOOD SPECIMENOrdering Facility: [facility] Address: [address] [place] [address] Performed By: #### 5 7021-8 ####[facility] LABIA [id number] [place] [address] [place] MCHC (RBC) [Mass/Vol] 30.0 g/dL Low 30.5-36.0 [facility] Comment on above: Order Comment: Speci men Type: BLOOD SPECIMENOrdering Facility: [facility] Address: [address] [place] [address] Performed By: #### 5 7021-8 ####[facility] LABIA [id number] [place] [address] [place] MCV (RBC) [Entitic vol] 84.4 fL Normal 80.0-100.0 [facility] Comment on above: Order Comment: Speci men Type: BLOOD SPECIMENOrdering Facility: [facility] Address: [address] [place] [address] Performed By: #### 5 7021-8 ####[facility] LABIA [id number] [place] [address] [place] Monocytes (Bld) [#/Vol] 0.48 10*3/uL Normal <0.87 [facility] Comment on above: Order Comment: Speci men Type: BLOOD SPECIMENOrdering Facility: [facility] Address: [address] [place] [address] Performed By: #### 5 7021-8 ####[facility] LABCLIA [id number] [place] [address] [place] Monocytes/100 WBC (Bld) 6.4 % Normal [facility] Comment on above: Order Comment: Speci men Type: BLOOD SPECIMENOrdering Facility: [facility] Address: [address] [place] [address] Performed By: #### 5 7021-8 ####[facility] LABIA [id number] [place] [address] [place] Neutrophils (Bld) [#/Vol] 4.58 10*3/uL Normal 1.45-7.50 [facility] Comment on above: Order Comment: Speci men Type: BLOOD SPECIMENOrdering Facility: [facility] Address: [address] [place] [address] Performed By: #### 5 7021-8 ####[facility] LABCLIA [id number] [place] [address] [place] Neutrophils/100 WBC (Bld) 61.5 % Normal [facility] Comment on above: Order Comment: Speci men Type: BLOOD SPECIMENOrdering Facility: [facility] Address: [address] [place] [address] Performed By: #### 5 7021-8 ####[facility] LABCLIA [id number] [place] [address] [place] Nucleated RBC (Bld) [#/Vol] 10*3/uL Normal <0.01 [facility] Comment on above: Order Comment: Speci men Type: BLOOD SPECIMENOrdering Facility: [facility] Address: [address] [place] [address] Performed By: #### 5 7021-8 ####[facility] LABCLIA [id number] [place] [address] [place] Nucleated RBC/100 WBC (Bld) [Ratio] 0.0 /[address] [facility] Comment on above: Order Comment: Speci men Type: BLOOD SPECIMENOrdering Facility: [facility] Address: [address] [place] [address] Performed By: #### 5 7021-8 ####[facility] LABCLIA [id number] [place] [address] [place] Platelet mean volume (Bld) [Entitic vol] 9.6 fL Normal 9.0-12.7 [facility] Comment on above: Order Comment: Speci men Type: BLOOD SPECIMENOrdering Facility: [facility] Address: [address] [place] [address] Performed By: #### 5 7021-8 ####[facility] LABIA [id number] [place] [address] [place] Platelets (Bld) [#/Vol] 416 10*3/uL High 150-400 [facility] Comment on above: Order Comment: Speci men Type: BLOOD SPECIMENOrdering Facility: [facility] Address: [address] [place] [address] Performed By: #### 5 7021-8 ####[facility] [id number] [place] [address] [place] RBC (Bld) [#/Vol] 5.06 10*6/uL Normal 4.20-6.00 [facility] Comment on above: Order Comment: Speci men Type: BLOOD SPECIMENOrdering Facility: [facility] Address: [address] [place] [address] Performed By: #### 5 7021-8 ####[facility] [id number] [place] [address] [place] WBC (Bld) [#/Vol] 7.45 10*3/uL Normal 3.70-11.00 [facility] Comment on above: Order Comment: Speci men Type: BLOOD SPECIMENOrdering Facility: [facility] Address: [address] [place] [address] Performed By: #### 5 7021-8 ####[facility] [id number] [address] [place] 08-25-2024 CORI Telephone (VIMALQ) CHOCO MALDONADO ([id number]) 1960 M Date Time Provider Department 08/25/24 RENETTA RIOS During your visit today, we recorded the following information about you: Renetta Rios, Research Coordinator 08/25/2024 9:25 AM Signed Called patient regarding mychart message- let patient know he is up to date on colonoscopy procedure and he does not need another one at this time, just had one in 2023 after positive cologuard Allergies As of Date: 08/25/2024 Noted Allergy Reaction VERAPAMIL 11/07/2019 2 - Rash Date Reviewed: 08/09/2024 Reviewed by: Eli Tyson MA - Fully Assessed Prescriptions as of 08/25/2024 - risankizumab-rzaa (SKYRIZI) 150 mg/mL injection Inject 150 mg subcutaneously once every month. - atorvastatin (LIPITOR) 80 mg tablet Take 1 tablet by mouth daily at bedtime. - clopidogrel (PLAVIX) 75 mg tablet Take 1 tablet by mouth once daily. - oxyCODONE-acetaminophen (PERCOCET) 5-325 mg tablet Take by mouth every 8 hours as needed for pain. - dicyclomine (BENTYL) 20 mg tablet Take 1 tablet by mouth two times a day as needed (abdominal pain). - dilTIAZem CR (TIAZAC, TAZTIA XT) 120 mg 24 hr capsule Take 1 capsule by mouth once daily. - amitriptyline (ELAVIL) 25 mg tablet Take 1 tablet by mouth daily at bedtime. - iron polysaccharide complex (FERREX-150) 150 mg iron capsule Take 150 mg by mouth once daily. - ondansetron orally disintegrating (ZOFRAN ODT) 4 mg disintegrating tablet - tiZANidine (ZANAFLEX) 4 mg tablet Take 4 mg by mouth daily at bedtime. - FLUoxetine (PROZAC) 40 mg capsule Take 1 capsule by mouth once daily. - pantoprazole DR (PROTONIX) 40 mg tablet Take 1 tablet by mouth daily before breakfast. Take on empty stomach, 1/2 hr before meal. - therapeutic multivitamin-minerals (THERA-M PLUS) 9 mg iron-400 mcg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 [S23.429A] 04/17/2008 08/17/2023 Sprain of neck [S13.9XXA] 04/21/2008 02/24/2023 Polycythemia, secondary [D75.1] 10/26/2012 Raynaud phenomenon [I73.00] 04/12/2014 Aortic valve regurgitation [I35.1] 04/19/2014 Hemorrhage of gastrointestinal tract, unspecifi*05/23/2014 05/23/2014 Abdominal pain, unspecified site [R10.9] 05/23/2014 05/23/2014 Thrombosed hemorrhoids [K64.5] 08/01/2014 01/28/2022 Psoriasis [L40.9] 08/07/2014 Tobacco use [Z72.0] 08/07/2014 01/05/2024 GERD (gastroesophageal reflux disease) [K21.9] 08/07/2014 Esophageal reflux [K21.9] 08/15/2014 08/15/2014 Palpitations [R00.2] 05/02/2015 Mixed hyperlipidemia [E78.2] 11/06/2015 Hyperviscosity [D75.9] 02/16/2018 Angina pectoris (HCC) [I20.9] 08/05/2020 01/05/2024 SVT (supraventricular tachycardia) (HCC) [I47.1*09/02/2020 Bilateral carotid artery stenosis [I65.23] 03/31/2021 08/17/2023 Benign paroxysmal positional vertigo of right e*10/07/2021 Migraine with aura, not intractable, without st*12/03/2021 Dizziness [R42] 10/28/2021 Hypnic jerks [F51.8] 01/28/2022 Primary hypertension [I10] 05/27/2022 Dupuytren's disease of palm of right hand [M72.*06/30/2022 Pain of right hand [M79.641] 06/30/2022 05/22/2023 Alcohol dependence, daily use (HCC) [F10.20] 07/24/2022 PVD (peripheral vascular disease) (HCC) [I73.9] 01/11/2023 Peripheral arterial disease (HCC) [I73.9] 10 (more content not included)... Normal [facility] CBC W Auto Differential pane l (Bld)on 06-14-2024 Basophils (Bld) [#/Vol] 0.04 10*3/uL Normal <0.11 [facility] Comment on above: Order Comment: Speci men Type: BLOOD SPECIMENOrdering Facility: [facility] Address: [address] [place] [address] Performed By: #### 5 7021-8 ####[facility] CENTERLIA [id number] [place] [address] [place] Basophils/100 WBC (Bld) 0.3 % Normal [facility] Comment on above: Order Comment: Speci men Type: BLOOD SPECIMENOrdering Facility: [facility] Address: [address] [place] [address] Performed By: #### 5 7021-8 ####[facility] [id number] [place] [address] [place] Differential cell count method Nom (Bld) Auto Normal [facility] Comment on above: Order Comment: Speci men Type: BLOOD SPECIMENOrdering Facility: [facility] Address: [address] [place] [address] Performed By: #### 5 7021-8 ####[facility]ITAL[facility] [id number] [place] [address] [place] Eosinophils (Bld) [#/Vol] 0.10 10*3/uL Normal <0.46 [facility] Comment on above: Order Comment: Speci men Type: BLOOD SPECIMENOrdering Facility: [facility] Address: [address] [place] [address] Performed By: #### 5 7021-8 ####[facility] [id number] [place] [address] [place] Eosinophils/100 WBC (Bld) 0.7 % Normal [facility] Comment on above: Order Comment: Speci men Type: BLOOD SPECIMENOrdering Facility: [facility] Address: [address] [place] [address] Performed By: #### 5 7021-8 ####[facility]ENTERNCLIA [id number] [place] [address] [place] Erythrocyte distribution width (RBC) [Ratio] 15.4 % High 11.5-15.0 [facility] Comment on above: Order Comment: Speci men Type: BLOOD SPECIMENOrdering Facility: [facility] Address: [address] [place] [address] Performed By: #### 5 7021-8 ####[facility] [id number] [place] [address] [place] Hematocrit (Bld) [Volume fraction] 41.3 % Normal 39.0-51.0 [facility] Comment on above: Order Comment: Speci men Type: BLOOD SPECIMENOrdering Facility: [facility] Address: [address] [place] [address] Performed By: #### 5 7021-8 ####[facility]ENTERLI [id number] [place] [address] [place] Hemoglobin (Bld) [Mass/Vol] 13.3 g/dL Normal 13.0-17.0 [facility] Comment on above: Order Comment: Speci men Type: BLOOD SPECIMENOrdering Facility: [facility] Address: [address] [place] [address] Performed By: #### 5 7021-8 ####[facility]ENTERLI [id number] [place] [address] [place] Immature granulocytes (Bld) [#/Vol] 0.07 10*3/uL Normal <0.10 [facility] Comment on above: Order Comment: Speci men Type: BLOOD SPECIMENOrdering Facility: [facility] Address: [address] [place] [address] Performed By: #### 5 7021-8 ####[facility] [id number] [place] [address] [place] Immature granulocytes/100 WBC (Bld) 0.5 % Normal [facility] Comment on above: Order Comment: Speci men Type: BLOOD SPECIMENOrdering Facility: [facility] Address: [address] [place] [address] Performed By: #### 5 7021-8 ####[facility] [id number] [place] [address] [place] Lymphocytes (Bld) [#/Vol] 2.37 10*3/uL Normal 1.00-4.00 [facility] Comment on above: Order Comment: Speci men Type: BLOOD SPECIMENOrdering Facility: [facility] Address: [address] [place] [address] Performed By: #### 5 7021-8 ####[facility]ENTERNC[facility] [id number] [place] [address] [place] Lymphocytes/100 WBC (Bld) 16.5 % Normal [facility] Comment on above: Order Comment: Speci men Type: BLOOD SPECIMENOrdering Facility: [facility] Address: [address] [place] [address] Performed By: #### 5 7021-8 ####[facility]ENTERNCLI [id number] [place] [address] [place] MCH (RBC) [Entitic mass] 27.1 pg Normal 26.0-34.0 [facility] Comment on above: Order Comment: Speci men Type: BLOOD SPECIMENOrdering Facility: [facility] Address: [address] [place] [address] Performed By: #### 5 7021-8 ####[facility]ENTERNCLI [id number] [place] [address] [place] MCHC (RBC) [Mass/Vol] 32.2 g/dL Normal 30.5-36.0 [facility] Comment on above: Order Comment: Speci men Type: BLOOD SPECIMENOrdering Facility: [facility] Address: [address] [place] [address] Performed By: #### 5 7021-8 ####[facility] PAULINOWNCLIA [id number] [place] [address] [place] MCV (RBC) [Entitic vol] 84.3 fL Normal 80.0-100.0 [facility] Comment on above: Order Comment: Speci men Type: BLOOD SPECIMENOrdering Facility: [facility] Address: [address] [place] [address] Performed By: #### 5 7021-8 ####[facility]ENTERNCLIA [id number] [place] [address] [place] Monocytes (Bld) [#/Vol] 0.58 10*3/uL Normal <0.87 [facility] Comment on above: Order Comment: Speci men Type: BLOOD SPECIMENOrdering Facility: [facility] Address: [address] [place] [address] Performed By: #### 5 7021-8 ####[facility]ENTERNCLIA [id number] [place] [address] [place] Monocytes/100 WBC (Bld) 4.0 % Normal [facility] Comment on above: Order Comment: Speci men Type: BLOOD SPECIMENOrdering Facility: [facility] Address: [address] [place] [address] Performed By: #### 5 7021-8 ####[facility]ENTERNCLIA [id number] [place] [address] [place] Neutrophils (Bld) [#/Vol] 11.23 10*3/uL High 1.45-7.50 [facility] Comment on above: Order Comment: Speci men Type: BLOOD SPECIMENOrdering Facility: [facility] Address: [address] [place] [address] Performed By: #### 5 7021-8 ####[facility] PAULINOWNCLIA [id number] [place] [address] [place] Neutrophils/100 WBC (Bld) 78.0 % Normal [facility] Comment on above: Order Comment: Speci men Type: BLOOD SPECIMENOrdering Facility: [facility] Address: [address] [place] [address] Performed By: #### 5 7021-8 ####[facility] CENTERLIA [id number] [place] [address] [place] Nucleated RBC (Bld) [#/Vol] 10*3/uL Normal <0.01 [facility] Comment on above: Order Comment: Speci men Type: BLOOD SPECIMENOrdering Facility: [facility] Address: [address] [place] [address] Performed By: #### 5 7021-8 ####[facility] CENTERLIA [id number] [place] [address] [place] Nucleated RBC/100 WBC (Bld) [Ratio] 0.0 /[address] [facility] Comment on above: Order Comment: Speci men Type: BLOOD SPECIMENOrdering Facility: [facility] Address: [address] [place] [address] Performed By: #### 5 7021-8 ####[facility] CENTERLIA [id number] [place] [address] [place] Platelet mean volume (Bld) [Entitic vol] 9.4 fL Normal 9.0-12.7 [facility] Comment on above: Order Comment: Speci men Type: BLOOD SPECIMENOrdering Facility: [facility] Address: [address] [place] [address] Performed By: #### 5 7021-8 ####[facility]ENTERLIA [id number] [place] [address] [place] Platelets (Bld) [#/Vol] 384 10*3/uL Normal 150-400 [facility] Comment on above: Order Comment: Speci men Type: BLOOD SPECIMENOrdering Facility: [facility] Address: [address] [place] [address] Performed By: #### 5 7021-8 ####[facility]ENTERARCENIOA [id number] [place] [address] [place] RBC (Bld) [#/Vol] 4.90 10*6/uL Normal 4.20-6.00 [facility] Comment on above: Order Comment: Speci men Type: BLOOD SPECIMENOrdering Facility: [facility] Address: [address] [place] [address] Performed By: #### 5 7021-8 ####[facility]OSPITALSaud [id number] [place] [address] [place] WBC (Bld) [#/Vol] 14.39 10*3/uL High 3.70-11.00 [facility] Comment on above: Order Comment: Speci men Type: BLOOD SPECIMENOrdering Facility: [facility] Address: [address] [place] [address] Performed By: #### 5 7021-8 ####[facility] CENTERRAEA [id number] [place] [address] [place] Ferritin SerPl-mCncon 2024 Ferritin [Mass/Vol] 43.7 ng/mL Normal 30.3-565.7 [facility] Comment on above: Order Comment: Speci men Type: BLOOD SPECIMENOrdering Facility: [facility] Address: [address] [place] [address] Performed By: #### 2 132-9, 89856-3, 2276-4 ####[facility] LABCLIA [id number] [place] [address] [place] Iron and Iron binding capaci ty panelon 06-14-2024 Iron [Mass/Vol] 57 ug/dL Normal 41-186 [facility] Comment on above: Order Comment: Speci men Type: BLOOD SPECIMENOrdering Facility: [facility] Address: [address] [place] [address] Performed By: #### 2 132-9, 10880-8, 2276-4 ####[facility] LABCLIA [id number] [place] [address] [place] Iron binding capacity [Mass/Vol] 410 ug/dL High 232-386 [facility] Comment on above: Order Comment: Speci men Type: BLOOD SPECIMENOrdering Facility: [facility] Address: [address] [place] [address] Performed By: #### 2 132-9, 73666-4, 6-4 ####[facility] LABCLIA [id number] [place] [address] [place] Iron/TIBC [Molar ratio] 13.9 % Low 15.0-57.0 [facility] Comment on above: Order Comment: Speci men Type: BLOOD SPECIMENOrdering Facility: [facility] Address: [address] [place] [address] Performed By: #### 2 132-9, 37624-3, 6-4 ####[facility] LABCLIA [id number] [place] [address] [place] Vit B12 SerPl-mCncon 025 Cobalamin (Vitamin B12) [Mass/Vol] 392 pg/mL Normal 232-1245 [facility] Comment on above: Order Comment: Speci men Type: BLOOD SPECIMENOrdering Facility: [facility] Address: [address] [place] [address] Performed By: #### 2 132-9, 90207-6, 2276-4 ####[facility] LABCLIA [id number] [place] [address], [place] [address] [place] CBC W Auto Differential pane l (Bld)on 06-09-2024 Basophils (Bld) [#/Vol] 10*3/uL Normal <0.11 [facility] Comment on above: Order Comment: Speci men Type: BLOOD SPECIMENOrdering Facility: [facility] Address: [address] [place] [address] Performed By: #### 5 7021-8 ####[facility] CENTERLIA [id number] [place] [address] [place] Basophils/100 WBC (Bld) 0.1 % Normal [facility] Comment on above: Order Comment: Speci men Type: BLOOD SPECIMENOrdering Facility: [facility] Address: [address] [place] [address] Performed By: #### 5 7021-8 ####[facility] [id number] [place] [address] [place] Differential cell count method Nom (Bld) Auto Normal [facility] Comment on above: Order Comment: Speci men Type: BLOOD SPECIMENOrdering Facility: [facility] Address: [address] [place] [address] Performed By: #### 5 7021-8 ####[facility] [id number] [place] [address] [place] Eosinophils (Bld) [#/Vol] 10*3/uL Normal <0.46 [facility] Comment on above: Order Comment: Speci men Type: BLOOD SPECIMENOrdering Facility: [facility] Address: [address] [place] [address] Performed By: #### 5 7021-8 ####[facility] CENTERLIA [id number] [place] [address] [place] Eosinophils/100 WBC (Bld) 0.1 % Normal [facility] Comment on above: Order Comment: Speci men Type: BLOOD SPECIMENOrdering Facility: [facility] Address: [address] [place] [address] Performed By: #### 5 7021-8 ####[facility] [id number] [place] [address] [place] Erythrocyte distribution width (RBC) [Ratio] 15.8 % High 11.5-15.0 [facility] Comment on above: Order Comment: Speci men Type: BLOOD SPECIMENOrdering Facility: [facility] Address: [address] [place] [address] Performed By: #### 5 7021-8 ####[facility] PAULINOWILMINGTONKEVYN [id number] [place] [address] [place] Hematocrit (Bld) [Volume fraction] 40.6 % Normal 39.0-51.0 [facility] Comment on above: Order Comment: Speci men Type: BLOOD SPECIMENOrdering Facility: [facility] Address: [address] [place] [address] Performed By: #### 5 7021-8 ####[facility] PAULINOWILMINGTONNCRAEA [id number] [place] [address] [place] Hemoglobin (Bld) [Mass/Vol] 12.7 g/dL Low 13.0-17.0 [facility] Comment on above: Order Comment: Speci men Type: BLOOD SPECIMENOrdering Facility: [facility] Address: [address] [place] [address] Performed By: #### 5 7021-8 ####[facility]ENTERNCLIA [id number] [place] [address] [place] Immature granulocytes (Bld) [#/Vol] 0.08 10*3/uL Normal <0.10 [facility] Comment on above: Order Comment: Speci men Type: BLOOD SPECIMENOrdering Facility: [facility] Address: [address] [place] [address] Performed By: #### 5 7021-8 ####[facility] MILLWNCLIA [id number] [place] [address] [place] Immature granulocytes/100 WBC (Bld) 0.6 % Normal [facility] Comment on above: Order Comment: Speci men Type: BLOOD SPECIMENOrdering Facility: [facility] Address: [address] [place] [address] Performed By: #### 5 7021-8 ####[facility]ENTERNCLIA [id number] [place] [address] [place] Lymphocytes (Bld) [#/Vol] 2.02 10*3/uL Normal 1.00-4.00 [facility] Comment on above: Order Comment: Speci men Type: BLOOD SPECIMENOrdering Facility: [facility] Address: [address] [place] [address] Performed By: #### 5 7021-8 ####[facility]ENTERNCLIA [id number] [place] [address] [place] Lymphocytes/100 WBC (Bld) 14.6 % Normal [facility] Comment on above: Order Comment: Speci men Type: BLOOD SPECIMENOrdering Facility: [facility] Address: [address] [place] [address] Performed By: #### 5 7021-8 ####[facility] CENTERDERICKLIA [id number] [place] [address] [place] MCH (RBC) [Entitic mass] 26.7 pg Normal 26.0-34.0 [facility] Comment on above: Order Comment: Speci men Type: BLOOD SPECIMENOrdering Facility: [facility] Address: [address] [place] [address] Performed By: #### 5 7021-8 ####[facility] CENTERNCLIA [id number] [place] [address] [place] MCHC (RBC) [Mass/Vol] 31.3 g/dL Normal 30.5-36.0 [facility] Comment on above: Order Comment: Speci men Type: BLOOD SPECIMENOrdering Facility: [facility] Address: [address] [place] [address] Performed By: #### 5 7021-8 ####[facility] [id number] [place] [address] [place] MCV (RBC) [Entitic vol] 85.5 fL Normal 80.0-100.0 [facility] Comment on above: Order Comment: Speci men Type: BLOOD SPECIMENOrdering Facility: [facility] Address: [address] [place] [address] Performed By: #### 5 7021-8 ####[facility] [id number] [place] [address] [place] Monocytes (Bld) [#/Vol] 0.50 10*3/uL Normal <0.87 [facility] Comment on above: Order Comment: Speci men Type: BLOOD SPECIMENOrdering Facility: [facility] Address: [address] [place] [address] Performed By: #### 5 7021-8 ####[facility] [id number] [place] [address] [place] Monocytes/100 WBC (Bld) 3.6 % Normal [facility] Comment on above: Order Comment: Speci men Type: BLOOD SPECIMENOrdering Facility: [facility] Address: [address] [place] [address] Performed By: #### 5 7021-8 ####[facility] [id number] [place] [address] [place] Neutrophils (Bld) [#/Vol] 11.24 10*3/uL High 1.45-7.50 [facility] Comment on above: Order Comment: Speci men Type: BLOOD SPECIMENOrdering Facility: [facility] Address: [address] [place] [address] Performed By: #### 5 7021-8 ####[facility] PAULINOWILMINGTONKEVYN [id number] [place] [address] [place] Neutrophils/100 WBC (Bld) 81.0 % Normal [facility] Comment on above: Order Comment: Speci men Type: BLOOD SPECIMENOrdering Facility: [facility] Address: [address] [place] [address] Performed By: #### 5 7021-8 ####[facility] [id number] [place] [address] [place] Nucleated RBC (Bld) [#/Vol] 10*3/uL Normal <0.01 [facility] Comment on above: Order Comment: Speci men Type: BLOOD SPECIMENOrdering Facility: [facility] Address: [address] [place] [address] Performed By: #### 5 7021-8 ####[facility] [id number] [place] [address] [place] Nucleated RBC/100 WBC (Bld) [Ratio] 0.0 /[address] [facility] Comment on above: Order Comment: Speci men Type: BLOOD SPECIMENOrdering Facility: [facility] Address: [address] [place] [address] Performed By: #### 5 7021-8 ####[facility] [id number] [place] [address] [place] Platelet mean volume (Bld) [Entitic vol] 10.0 fL Normal 9.0-12.7 [facility] Comment on above: Order Comment: Speci men Type: BLOOD SPECIMENOrdering Facility: [facility] Address: [address] [place] [address] Performed By: #### 5 7021-8 ####[facility] [id number] [place] [address] [place] Platelets (Bld) [#/Vol] 423 10*3/uL High 150-400 [facility] Comment on above: Order Comment: Speci men Type: BLOOD SPECIMENOrdering Facility: [facility] Address: [address] [place] [address] Performed By: #### 5 7021-8 ####[facility] [id number] [place] [address] [place] RBC (Bld) [#/Vol] 4.75 10*6/uL Normal 4.20-6.00 [facility] Comment on above: Order Comment: Speci men Type: BLOOD SPECIMENOrdering Facility: [facility] Address: [address] [place] [address] Performed By: #### 5 7021-8 ####[facility] [id number] [place] [address] [place] WBC (Bld) [#/Vol] 13.87 10*3/uL High 3.70-11.00 [facility] Comment on above: Order Comment: Speci men Type: BLOOD SPECIMENOrdering Facility: [facility] Address: [address] [place] [address] Performed By: #### 5 7021-8 ####[facility] [id number] [place] [address] [place] CNOVon 05-30-2024 CNOV Office Visit (JENNIFER ) CHOCO MALDONADO ([id number]) 1960 M Date Time Provider Department 05/30/24 9:30 AM CHRISTIANA ARRINGTON During your visit today, we recorded the following information about you: Blood pressure Weight Height 172/88 94.3 kg 1.88 m Christiana Arrington MD 05/30/2024 9:45 AM [facility] Heart , Vascular and Thoracic [place] DEPARTMENT OF VASCULAR SURGERY OUTPATIENT VISIT DATE May 30, 2024 OUTPATIENT VISIT TYPE ESTABLISHED SERVICE DATE: 05/30/2024 SERVICE TIME: 9:35 AM PRIMARY CARE PHYSICIAN: Linda Parish MD HISTORY OF PRESENT ILLNESS: Mr. Maldonado is a 63 year old male who presents today for a vascular surgery follow-up visit Surgery/Procedure Date: 02/14/2024 Surgeon(s)/Proceduralist(s) and Mash Filter Cloth Changer(s): * Christiana Arrington MD - Primary INTERVENTIONAL PROCEDURE: Ultrasound-guided left common femoral access right lower extremity angiogram Balloon angioplasty of proximal anastamosis and mid bypass stenosis with 4mm drug-coated balloon. Surgery/Procedure Date: 07/29/2023 Surgeon(s)/Proceduralist(s) and Mash Filter Cloth Changer(s): * Christiana Arrington MD - Primary INTERVENTIONAL PROCEDURE: Ultrasound-guided left common femoral access right lower extremity angiogram Balloon angioplasty of proximal anastamosis with 4mm drug-coated balloon. Surgery/Procedure Date: 05/14/2023 Surgeon(s)/Proceduralist(s) and Mash Filter Cloth Changer(s): * Christiana Arrington MD - Primary Procedure(s): Redo right above knee popliteal to posterior tibial bypass with reversed right saphenous vein Ligation of prior fem-tp trunk bypass right saphenous vein harvest Completion angiogram Surgery/Procedure Date: 04/29/2023 Surgeon(s)/Proceduralist(s) and Mash Filter Cloth Changer(s): * Cecille Sarabia MD - Primary Procedure Performed: 1) Diagnostic angiogram of the RIGHT lower extremity 2) Penumbra suction thrombectomy with CAT 7 3) 4mm DCB of the distal PTFE-TP trunk anastomosis 4) 3mm POBA of the distal TPT into the PT 4) Completion angiogram 5) Placement of a Proglide percutaneous closure device in the LEFT groin. Prior bypass w tapered 4-7mm ptfe fem-bk pop, occluded within months of insertion prompting lysis, now s/p fem-pt bypass w vein Stopped ac due to gi bleed, hosptilaized 06/19/23-06/25/23, 08/[address] Aranda, then went to [facility] and seen by Dr Grey PAST MEDICAL HISTORY Diagnosis Date Acute diverticulitis Aortic insufficiency Arthritis Ascending aorta dilatation (HCC) 10/28/2023 Bursitis of elbow left Coronary artery disease mild nonobstructive Diverticulitis History of transfusion Hypertension Migraines PAD (peripheral artery disease) ([facility]) Palpitations Pinched nerve 11/04/2020 low back Psoriasis Raynaud disease SVT (supraventricular tachycardia) ([facility]) Tobacco abuse PAST SURGICAL HISTORY Procedure Laterality Date COLON SURGERY HX COLONOSCOPY FLX DX W/COLLJ SPEC WHEN PFRMD 05/23/2014 Colonoscopy COLONOSCOPY FLX DX W/COLLJ SPEC WHEN PFRMD 09/24/2017 Colonoscopy COLONOSCOPY FLX DX W/COLLJ SPEC WHEN PFRMD 04/16/2021 ESOPHAGOGASTRODUODENOSCOPY TRANSORAL DIAGNOSTIC 05/23/2014 EGD ESOPHAGOGASTRODUODENOSCOPY TRANSORAL DIAGNOSTIC 08/15/2014 EGD HEMORRHOIDECTOMY INT AND XTRNL 2/> COLUMN/FAHEEM 10/01/2017 left posterior PAST SURGICAL HISTORY OF 2008 Pain injections lumbar PAST SURGICAL HISTORY OF 08/03/2022 colostomy PAST SURGICAL HISTORY OF Right 12/2022 right popliteal to tibioperoneal trunk bypass - REVISION 05/14/2023 RT/LT HEART [facility]HETERS 08/09/2020 [facility] SOCIAL HISTORY Social History Tobacco Use Smoking status: Former Current packs/day: 0.00 Average packs/day: 1 pack/day for 40.0 years (40.0 ttl pk-yrs) Types: Cigarettes Start date: 1983 Quit date: 04/24/2023 Years since quittin.1 Passive exposure: Past Smokeless tobacco: Never Vaping Use Vaping status: Never Used Substance Use Topics Alcohol use: Yes Alcohol/week: 3.0 standard drinks of alcohol Types: 3 Cans of beer per week Comment: 3-4 drinks per day 5 days per week; Drug use: No MEDICATIONS: risankizumab-rzaa (SKYRIZI) 150 mg/mL injection Inject 150 mg subcutaneously once every month. atorvastatin (LIPITOR) 80 mg tablet Take 1 tablet by mouth daily at bedtime. clopidogrel (PLAVIX) 75 mg tablet Take 1 tablet by mouth once daily. oxyCODONE-acetaminophen (PERCOCET) 5-325 mg tablet Take by mouth every 8 hours as needed for pain. dicyclomine (BENTYL) 20 mg tablet Take 1 tablet by mouth two times a day as needed (abdominal pain). dilTIAZem CR (TIAZAC, TAZTIA XT) 120 mg 24 hr capsule Take 1 capsule by mouth once daily. iron polysaccharide complex (FERREX-150) 150 mg iron capsule Take 150 mg by mouth once daily. ondansetron orally disintegrating (ZOFRAN ODT) 4 mg disintegrating tablet tiZANidine (ZANAFLEX) 4 mg tablet Take 4 mg by mouth daily at bedtime. FLUoxetine (PROZAC) 40 m (more content not included)... Normal [facility] PVR ANK PRESS KATIE VAS LABon 05-30-2024 PVR ANK PRESS KATIE VAS LAB Non-Invasive Vascular Laboratory [facility] Lower Extremity Arterial Physiology Study Bilateral/Complete Date of service/time: 05/30/2024 7:21:54 AM Name: MR. COHCO MALDONADO Date of : 1960 Age: 63 years Gender: M Clinical Indication S/p right ballon angioplasty bypass graft 02/14/24. TECHNIQUE -------- An arterial physiological examination was performed, including measurement of blood pressures using continuous wave Doppler and recording of plethysmographic with or without Doppler waveforms at the below-mentioned limb segments. FINDINGS -------- RIGHT SIDE AT REST Right Pressures Brachial: 166 mmHg Ankle dorsalis pedis: 152 mmHg SAVANNA: 0.92 Ankle posterior tibial: 172 mmHg SAVANNA: 1.04 Right PVR Waveforms Ankle: Normal. Transmetatarsal: Normal. Digit: Normal. LEFT SIDE AT REST Left Pressures Ankle dorsalis pedis: 178 mmHg SAVANNA: 1.07 Ankle posterior tibial: 184 mmHg SAVANNA: 1.11 Left PVR Waveforms Ankle: Normal. Transmetatarsal: Normal. Digit: Normal. IMPRESSION Compared to prior study of 01/19/2024, right savanna increased from 0.54 to 1.0 on todays exam. No change left leg. RIGHT SIDE Resting right ankle brachial index: 1.04 Normal ankle brachial index at rest in the right leg. Right ankle: Normal at rest. LEFT SIDE Resting left ankle brachial index: 1.11 Normal ankle brachial index at rest in the left leg. Left ankle: Normal at rest. Technologist: Kwesi Chi [facility] Ordering physician: CHRISTIANA ARRINGTON Referring physician: CHRISTIANA ARRINGTON MD Interpreting physician: Christiana Arrington MD, ELIZA Final CC [employer] Image : [id number] [id number] See Link below for Image Normal [facility] LEG ARTERIAL PERIPH UNL V LABon 05-30-2024 LEG ARTERIAL PERIPH UNL VAS LAB Non-Invasive Vascular Laboratory [facility] Lower Extremity Arterial Duplex Unilateral - Right Date of service/time: 05/30/2024 7:21:04 AM Name: MR. CHOCO MALDONADO Date of : 1960 Age: 63 years Gender: M Clinical Indication Post-procedure evaluation of balloon angioplasty and/or stent. TECHNIQUE -------- An arterial duplex ultrasound examination was performed, including grayscale imaging and color Doppler and spectral Doppler examination of the below mentioned arteries. FINDINGS -------- RIGHT ARTERIES External iliac distal: PSV: 226 cm/s. EDV: 0 cm/s. Monophasic, high resistive waveform. Common femoral proximal: PSV: 155 cm/s. EDV: 0 cm/s. Monophasic, high resistive waveform. Common femoral mid: PSV: 123 cm/s. EDV: 0 cm/s. Monophasic, high resistive waveform. Common femoral distal: PSV: 101 cm/s. EDV: 0 cm/s. Monophasic, high resistive waveform. Profunda femoral proximal: PSV: 179 cm/s. EDV: 0 cm/s. Monophasic, high resistive waveform. Superficial femoral origin: PSV: 135 cm/s. EDV: 0 cm/s. Monophasic, high resistive waveform. Superficial femoral proximal: PSV: 142 cm/s. EDV: 0 cm/s. Monophasic, high resistive waveform. Superficial femoral mid: PSV: 100 cm/s. EDV: 0 cm/s. Monophasic, high resistive waveform. Posterior tibial mid: PSV: 83 cm/s. EDV: 0 cm/s. Monophasic, high resistive waveform. Posterior tibial distal: PSV: 68 cm/s. EDV: 0 cm/s. Monophasic, high resistive waveform. VESSEL/GRAFT Femoral-posterior tibial graft proximal anastomosis: PSV: 494 cm/s. EDV: 0 cm/s. Monophasic, high resistive waveform. Femoral-posterior tibial graft mid thigh: PSV: 194 cm/s. EDV: 0 cm/s. Monophasic, high resistive waveform. Popliteal-posterior tibial graft distal thigh: PSV: 117 cm/s. EDV: 0 cm/s. Monophasic, high resistive waveform. Femoral-posterior tibial graft knee crease: PSV: 106 cm/s. EDV: 0 cm/s. Monophasic, high resistive waveform. Femoral-posterior tibial graft proximal calf: PSV: 61 cm/s. EDV: 0 cm/s. Monophasic, high resistive waveform. Femoral-posterior tibial graft distal: PSV: 80 cm/s. EDV: 0 cm/s. Monophasic, high resistive waveform. Femoral-posterior tibial graft distal anastomosis: PSV: 63 cm/s. EDV: 0 cm/s. Monophasic, high resistive waveform. IMPRESSION Compared to prior study of 01/19/2024, right proximal anastomosis decresed from 604 cm/s to 494 cm/s following angioplasty on 02-14-24. RIGHT SIDE External iliac artery, Common femoral artery and Profunda femoral artery : patent . Superficial femoral artery proximal thigh: patent . Superficial femoral artery mid thigh: patent . Femoral-posterior tibial graft proximal anastomosis: 50-99% stenosis . No significant plaque noted. Femoral-posterior tibial graft throughout: patent . Technologist: Kwesi Chi [facility] Ordering physician: CHRISTIANA ARRINGTON Referring physician: CHRISTIANA ARRINGTON MD Interpreting physician: Christiana Arrington MD, ELIZA Final CC [employer] Image : [id number] See Link below for Image Normal [facility] US Lower extremity arteryon 05-30-2024 Non-Invasive Vascular Laboratory [facility] Lower Extremity Arterial Duplex Unilateral - Right Date of service/time: 05/30/2024 7:21:04 AM Name: MR. CHOCO MALDONADO Date of : 1960 Age: 63 years Gender: M Clinical Indication Post-procedure evaluation of balloon angioplasty and/or stent. TECHNIQUE -------- An arterial duplex ultrasound examination was performed, including grayscale imaging and color Doppler and spectral Doppler examination of the below mentioned arteries. FINDINGS -------- RIGHT ARTERIES External iliac distal: PSV: 226 cm/s. EDV: 0 cm/s. Monophasic, high resistive waveform. Common femoral proximal: PSV: 155 cm/s. EDV: 0 cm/s. Monophasic, high resistive waveform. Common femoral mid: PSV: 123 cm/s. EDV: 0 cm/s. Monophasic, high resistive waveform. Common femoral distal: PSV: 101 cm/s. EDV: 0 cm/s. Monophasic, high resistive waveform. Profunda femoral proximal: PSV: 179 cm/s. EDV: 0 cm/s. Monophasic, high resistive waveform. Superficial femoral origin: PSV: 135 cm/s. EDV: 0 cm/s. Monophasic, high resistive waveform. Superficial femoral proximal: PSV: 142 cm/s. EDV: 0 cm/s. Monophasic, high resistive waveform. Superficial femoral mid: PSV: 100 cm/s. EDV: 0 cm/s. Monophasic, high resistive waveform. Posterior tibial mid: PSV: 83 cm/s. EDV: 0 cm/s. Monophasic, high resistive waveform. Posterior tibial distal: PSV: 68 cm/s. EDV: 0 cm/s. Monophasic, high resistive waveform. VESSEL/GRAFT Femoral-posterior tibial graft proximal anastomosis: PSV: 494 cm/s. EDV: 0 cm/s. Monophasic, high resistive waveform. Femoral-posterior tibial graft mid thigh: PSV: 194 cm/s. EDV: 0 cm/s. Monophasic, high resistive waveform. Popliteal-posterior tibial graft distal thigh: PSV: 117 cm/s. EDV: 0 cm/s. Monophasic, high resistive waveform. Femoral-posterior tibial graft knee crease: PSV: 106 cm/s. EDV: 0 cm/s. Monophasic, high resistive waveform. Femoral-posterior tibial graft proximal calf: PSV: 61 cm/s. EDV: 0 cm/s. Monophasic, high resistive waveform. Femoral-posterior tibial graft distal: PSV: 80 cm/s. EDV: 0 cm/s. Monophasic, high resistive waveform. Femoral-posterior tibial graft distal anastomosis: PSV: 63 cm/s. EDV: 0 cm/s. Monophasic, high resistive waveform. IMPRESSION Compared to prior study of 01/19/2024, right proximal anastomosis decresed from 604 cm/s to 494 cm/s following angioplasty on 02-14-24. RIGHT SIDE External iliac artery, Common femoral artery and Profunda femoral artery : patent . Superficial femoral artery proximal thigh: patent . Superficial femoral artery mid thigh: patent . Femoral-posterior tibial graft proximal anastomosis: 50-99% stenosis . No significant plaque noted. Femoral-posterior tibial graft throughout: patent . Technologist: Kwesi JARA Ordering physician: CHRISTIANA ARRINGTON Referring physician: CHRISTIANA ARRINGTON MD Interpreting physician: ELIZA Chairez MD Final See Link below for Image [facility].doppler Extremity arterie s - bilateral for physiologic artery studyon 05-30-2024 Non-Invasive Vascular Laboratory [facility] Lower Extremity Arterial Physiology Study Bilateral/Complete Date of service/time: 05/30/2024 7:21:54 AM Name: MR. CHOCO MALDONADO Date of : 1960 Age: 63 years Gender: M Clinical Indication S/p right ballon angioplasty bypass graft 02/14/24. TECHNIQUE -------- An arterial physiological examination was performed, including measurement of blood pressures using continuous wave Doppler and recording of plethysmographic with or without Doppler waveforms at the below-mentioned limb segments. FINDINGS -------- RIGHT SIDE AT REST Right Pressures Brachial: 166 mmHg Ankle dorsalis pedis: 152 mmHg SAVANNA: 0.92 Ankle posterior tibial: 172 mmHg SAVANNA: 1.04 Right PVR Waveforms Ankle: Normal. Transmetatarsal: Normal. Digit: Normal. LEFT SIDE AT REST Left Pressures Ankle dorsalis pedis: 178 mmHg SAVANNA: 1.07 Ankle posterior tibial: 184 mmHg SAVANNA: 1.11 Left PVR Waveforms Ankle: Normal. Transmetatarsal: Normal. Digit: Normal. IMPRESSION Compared to prior study of 01/19/2024, right savanna increased from 0.54 to 1.0 on todays exam. No change left leg. RIGHT SIDE Resting right ankle brachial index: 1.04 Normal ankle brachial index at rest in the right leg. Right ankle: Normal at rest. LEFT SIDE Resting left ankle brachial index: 1.11 Normal ankle brachial index at rest in the left leg. Left ankle: Normal at rest. Technologist: Kwesi Chi Samuel Ordering physician: CHRISTIANA ARRINGTON Referring physician: CHRISTIANA ARRINGTON MD Interpreting physician: Christiana Arrington MD, RPJESSICA Final See Link below for Image [facility] CNCOon 05-26-2024 CNCO Letter Text Letter Text Normal [facility] CNOVon 05-09-2024 CNOV Office Visit (FAMPWS ) CHOCO MALDONADO ([id number]) 1960 M Date Time Provider Department 05/09/24 2:20 PM LINDA PARISH During your visit today, we recorded the following information about you: Pulse Blood pressure Weight Height 67/minute 130/58 94.3 kg 1.88 m Linda Parish MD 05/09/2024 2:36 PM Signed Patient presents with: Follow Up HPI: Patient presents today for office visit for follow up. Following with Pulmonary, Gastro, vascular, cardiology, Hem/Onc and Neurology. Still sees pain mgt. Dr. Calvert. Saw Pulm on 04/17/24 CT shows previously seen new nodule has decreased in size and there are no new nodules. Repeat one year. HLD: No myalgias Raynaud's is stable. Emotionally is doing well. Seeing Vascular next month. Still with pains in both his legs. Is about the same. No ulcers or sores on his legs. Saw Derm [facility] in April. Recently had COVID. Doing well now. Has resolved. Latest Ref Rng 05/01/2024 WBC 3.70 - 11.00 k/uL 8.70 RBC 4.20 - 6.00 m/uL 4.65 Hemoglobin 13.0 - 17.0 g/dL 12.7 (L) Hematocrit 39.0 - 51.0 % 40.7 MCV 80.0 - 100.0 fL 87.5 MCH 26.0 - 34.0 pg 27.3 MCHC 30.5 - 36.0 g/dL 31.2 RDW-CV 11.5 - 15.0 % 17.5 (H) Platelet Count 150 - 400 k/uL 483 (H) MPV 9.0 - 12.7 fL 9.6 Absolute nRBC <0.01 k/uL <0.01 Cholesterol, Total <200 mg/dL 177 Triglyceride <150 mg/dL 385 (H) HDL Cholesterol >39 mg/dL 34 (L) Non HDL Cholesterol <130 mg/dL 143 (H) Fasting Time hrs 13 VLDL Cholesterol <30 mg/dL 77 (H) TC:HDL Ratio <5.10 5.21 (H) LDL Cholesterol <100 mg/dL 66 LDL:HDL Ratio <2.54 1.94 Albumin 3.9 - 4.9 g/dL 4.3 Bilirubin, Total 0.2 - 1.3 mg/dL 0.4 Bilirubin, Direct <0.2 mg/dL <0.2 Alkaline Phosphatase 38 - 113 U/L 118 (H) AST 14 - 40 U/L 22 ALT 10 - 54 U/L 22 Protein, Total 6.3 - 8.0 g/dL 7.9 MEDICATIONS: Current Outpatient Medications Medication Sig risankizumab-rzaa (SKYRIZI) 150 mg/mL injection Inject 150 mg subcutaneously once every month. atorvastatin (LIPITOR) 80 mg tablet Take 1 tablet by mouth daily at bedtime. clopidogrel (PLAVIX) 75 mg tablet Take 1 tablet by mouth once daily. oxyCODONE-acetaminophen (PERCOCET) 5-325 mg tablet Take by mouth every 8 hours as needed for pain. dicyclomine (BENTYL) 20 mg tablet Take 1 tablet by mouth two times a day as needed (abdominal pain). dilTIAZem CR (TIAZAC, TAZTIA XT) 120 mg 24 hr capsule Take 1 capsule by mouth once daily. amitriptyline (ELAVIL) 25 mg tablet Take 1 tablet by mouth daily at bedtime. iron polysaccharide complex (FERREX-150) 150 mg iron capsule Take 150 mg by mouth once daily. ondansetron orally disintegrating (ZOFRAN ODT) 4 mg disintegrating tablet tiZANidine (ZANAFLEX) 4 mg tablet Take 4 mg by mouth daily at bedtime. FLUoxetine (PROZAC) 40 mg capsule Take 1 capsule by mouth once daily. pantoprazole DR (PROTONIX) 40 mg tablet Take 1 tablet by mouth daily before breakfast. Take on empty stomach, 1/2 hr before meal. therapeutic multivitamin-minerals (THERA-M PLUS) 9 mg iron-400 mcg tablet Take 1 tablet by mouth once daily. thiamine (VITAMIN B1) 100 mg tablet Take 1 tablet by mouth once daily. aspirin 81 mg chewable tablet Take 1 tablet by mouth once daily. gabapentin (NEURONTIN) 300 mg capsule Take 1 capsule by mouth every 12 hours. TREMFYA 100 mg/mL AutoInjector Inject 100 mg subcutaneously every 8 weeks. rimegepant (NURTEC ODT) 75 mg disintegrating tablet Nurtec ODT 75 mg disintegrating tablet Take 1 tab under tongue at onset of migraine. Max 1 in 24 hours. acetaminophen (TYLENOL) 325 mg tablet Take 650 mg by mouth every 6 hours as needed. fremanezumab-vfrm (AJOVY AUTOINJECTOR) 225 mg/1.5 mL auto-injector Ajovy 225 mg/1.5 mL subcutaneous auto-injector Inject 1.5 mL subcutaneously once a month (Patient not taking: Reported on 05/09/2024) No current facility-administered medications for this visit. ALLERGIES: ALLERGIES Allergen Reactions Verapamil Rash PAST MEDICAL HISTORY Diagnosis Date Acute diverticulitis Aortic insufficiency Arthritis Ascending aorta dilatation (HCC) 10/28/2023 Bursitis of elbow left Coronary artery disease mild nonobstructive Diverticulitis History of transfusion Hypertension Migraines PAD (peripheral artery disease) ([facility]) Palpitations Pinched nerve 11/04/2020 low back Psoriasis Raynaud disease SVT (supraventricular tachycardia) ([facility]) Tobacco abuse PAST SURGICAL HISTORY Procedure Laterality Date COLON SURGERY HX COLONOSCOPY FLX DX W/COLLJ SPEC WHEN PFRMD 05/23/2014 Colonoscopy COLONOSCOPY FLX DX W/COLLJ SPEC WHEN PFRMD 09/24/2017 Colonoscopy COLONOSCOPY FLX DX W/COLLJ SPEC WHEN PFRMD 04/16/2021 ESOPHAGOGASTRODUODENOSCOPY TRANSORAL DIAGNOSTIC 05/23/2014 EGD ESOPHAGOGASTRODUODENOSCOPY TRANSORAL DIAGNOSTIC 08/15/2014 EGD HEMORRHOIDECTOMY INT AND XTRNL 2/> COLUMN/FAHEEM 0 (more content not included)... Normal [facility] CBC panel Auto (Bld)on 05-01 Erythrocyte distribution width (RBC) [Ratio] 17.5 % High 11.5-15.0 [facility] Comment on above: Order Comment: Speci men Type: BLOOD SPECIMENOrdering Facility: [facility] Address: [address] [place] [address] Performed By: #### 5 8410-2 ####[facility] LABCLIA [id number] [place] [address] [place] Hematocrit (Bld) [Volume fraction] 40.7 % Normal 39.0-51.0 [facility] Comment on above: Order Comment: Speci men Type: BLOOD SPECIMENOrdering Facility: [facility] Address: [address] [place] [address] Performed By: #### 5 8410-2 ####[facility] LABIA [id number] [place] [address] [place] Hemoglobin (Bld) [Mass/Vol] 12.7 g/dL Low 13.0-17.0 [facility] Comment on above: Order Comment: Speci men Type: BLOOD SPECIMENOrdering Facility: [facility] Address: [address] [place] [address] Performed By: #### 5 8410-2 ####[facility] LABIA [id number] [place] [address] [place] MCH (RBC) [Entitic mass] 27.3 pg Normal 26.0-34.0 [facility] Comment on above: Order Comment: Speci men Type: BLOOD SPECIMENOrdering Facility: [facility] Address: [address] [place] [address] Performed By: #### 5 8410-2 ####[facility] LABIA [id number] [place] [address] [place] MCHC (RBC) [Mass/Vol] 31.2 g/dL Normal 30.5-36.0 [facility] Comment on above: Order Comment: Speci men Type: BLOOD SPECIMENOrdering Facility: [facility] Address: [address] [place] [address] Performed By: #### 5 8410-2 ####[facility] LABIA [id number] [place] [address] [place] MCV (RBC) [Entitic vol] 87.5 fL Normal 80.0-100.0 [facility] Comment on above: Order Comment: Speci men Type: BLOOD SPECIMENOrdering Facility: [facility] Address: [address] [place] [address] Performed By: #### 5 8410-2 ####[facility] LABCLIA [id number] [place] [address] [place] Nucleated RBC (Bld) [#/Vol] 10*3/uL Normal <0.01 [facility] Comment on above: Order Comment: Speci men Type: BLOOD SPECIMENOrdering Facility: [facility] Address: [address] [place] [address] Performed By: #### 5 8410-2 ####[facility] LABIA [id number] [place] [address] [place] Platelet mean volume (Bld) [Entitic vol] 9.6 fL Normal 9.0-12.7 [facility] Comment on above: Order Comment: Speci men Type: BLOOD SPECIMENOrdering Facility: [facility] Address: [address] [place] [address] Performed By: #### 5 8410-2 ####[facility] LABCLIA [id number] [place] [address] [place] Platelets (Bld) [#/Vol] 483 10*3/uL High 150-400 [facility] Comment on above: Order Comment: Speci men Type: BLOOD SPECIMENOrdering Facility: [facility] Address: [address] [place] [address] Performed By: #### 5 8410-2 ####[facility] LABCLIA [id number] [place] [address] [place] RBC (Bld) [#/Vol] 4.65 10*6/uL Normal 4.20-6.00 [facility] Comment on above: Order Comment: Speci men Type: BLOOD SPECIMENOrdering Facility: [facility] Address: [address] [place] [address] Performed By: #### 5 8410-2 ####[facility] LABCLIA [id number] [place] [address] [place] WBC (Bld) [#/Vol] 8.70 10*3/uL Normal 3.70-11.00 [facility] Comment on above: Order Comment: Speci men Type: BLOOD SPECIMENOrdering Facility: [facility] Address: [address] [place] [address] Performed By: #### 5 8410-2 ####[facility] LABCLIA [id number] [place] [address] [place] Hepatic function 2000 panelo n 05-01-2024 Albumin [Mass/Vol] 4.3 g/dL Normal 3.9-4.9 [facility] Comment on above: Order Comment: Speci men Type: BLOOD SPECIMENOrdering Facility: [facility] Address: [address] [place] [address] Performed By: #### 2 4325-3, 24160-6 ####[facility] LABCLIA [id number] [place] [address] [place] ALP [Catalytic activity/Vol] 118 U/L High 38-113 [facility] Comment on above: Order Comment: Speci men Type: BLOOD SPECIMENOrdering Facility: [facility] Address: [address] [place] [address] Performed By: #### 2 4325-3, 08545-9 ####[facility] LABCLIA [id number] [place] [address] [place] ALT [Catalytic activity/Vol] 22 U/L Normal 10-54 [facility] Comment on above: Order Comment: Speci men Type: BLOOD SPECIMENOrdering Facility: [facility] Address: [address] [place] [address] Performed By: #### 2 4325-3, 88562-4 ####[facility] LABCLIA [id number] [place] [address] [place] AST [Catalytic activity/Vol] 22 U/L Normal 14-40 [facility] Comment on above: Order Comment: Speci men Type: BLOOD SPECIMENOrdering Facility: [facility] Address: [address] [place] [address] Performed By: #### 2 4325-3, 84959-8 ####[facility] LABCLIA [id number] [place] [address] [place] Bilirubin [Mass/Vol] 0.4 mg/dL Normal 0.2-1.3 [facility] Comment on above: Order Comment: Speci men Type: BLOOD SPECIMENOrdering Facility: [facility] Address: [address] [place] [address] Performed By: #### 2 4325-3, 07887-0 ####[facility] LABCLIA [id number] [place] [address] [place] Bilirubin.conjugated [Mass/Vol] mg/dL Normal <0.2 [facility] Comment on above: Order Comment: Speci men Type: BLOOD SPECIMENOrdering Facility: [facility] Address: [address] [place] [address] Performed By: #### 2 4325-3, 26774-1 ####[facility] LABCLIA [id number] [place] [address] [place] Protein [Mass/Vol] 7.9 g/dL Normal 6.3-8.0 [facility] Comment on above: Order Comment: Speci men Type: BLOOD SPECIMENOrdering Facility: [facility] Address: [address] [place] [address] Performed By: #### 2 4325-3, 28326-2 ####[facility] LABCLIA [id number] [place] [address] [place] Lipid 1996 panelon 4 Cholesterol [Mass/Vol] 177 mg/dL Normal <200 [facility] Comment on above: Order Comment: Speci men Type: BLOOD SPECIMENOrdering Facility: [facility] Address: [address] [place] [address] Result Comment: <200 mg/dL, Desirable 200-239 mg/dL, Borderline high >239 mg/dL, High Performed By: #### 2 4325-3, 00229-1 ####[facility] LABCLIA [id number] [place] [address] [place] Cholesterol in HDL [Mass/Vol] 34 mg/dL Low >39 [facility] Comment on above: Order Comment: Speci men Type: BLOOD SPECIMENOrdering Facility: [facility] Address: [address] [place] [address] Result Comment: 40-5 9 mg/dL, Acceptable >59 mg/dL, High: Negative risk factor for coronary heart disease <40 mg/dL, Low: Positive risk factor for coronary heart disease Performed By: #### 2 4325-3, 98088-5 ####[facility] LABCLIA [id number] [place] [address] [place] Cholesterol in LDL [Mass/Vol] 66 mg/dL Normal <100 [facility] Comment on above: Order Comment: Speci men Type: BLOOD SPECIMENOrdering Facility: [facility] Address: [address] [place] [address] Result Comment: <100 mg/dL, Optimal 100-129 mg/dL, Near optimal/above optimal 130-159 mg/dL, Borderline high 160-189 mg/dL, High >189 mg/dL, Very high Secondary prevention optimal LDL Cholesterol levels are recommended to be < 70 mg/dL Performed By: #### 2 4325-3, 36982-6 ####[facility] LABCLIA [id number] [place] [address] [place] Cholesterol in LDL/Cholesterol in HDL [Mass ratio] 1.94 {ratio} Normal <2.54 [facility] Comment on above: Order Comment: Speci men Type: BLOOD SPECIMENOrdering Facility: [facility] Address: [address] [place] [address] Result Comment: Refe rence: 1. National Cholesterol Education Program ATP III Guideline At-A-Glance Quick Desk Reference: National Heart, Lung, and Blood [place]. National Institutes of Health. 2001: NIH Publication No. 01-3305. 2. An International Atherosclerosis Society position paper: global recommendations for the management of dyslipidemia: executive summary, Atherosclerosis. 2014: 232(2):410-413. Performed By: #### 2 4325-3, 40101-8 ####[facility] LABCLIA [id number] [place] [address] [place] Cholesterol in VLDL [Mass/Vol] 77 mg/dL High <30 [facility] Comment on above: Order Comment: Speci men Type: BLOOD SPECIMENOrdering Facility: [facility] Address: [address] [place] [address] Performed By: #### 2 4325-3, 27979-5 ####[facility] LABCLIA [id number] [place] [address] [place] Cholesterol non HDL [Mass/Vol] 143 mg/dL High <130 [facility] Comment on above: Order Comment: Bebai men Type: BLOOD SPECIMENOrdering Facility: [facility] Address: [address] [place] [address] Result Comment: <130 mg/dL, Optimal 130-159 mg/dL, Near optimal/above optimal 160-189 mg/dL, Borderline high 190-219 mg/dL, High >219 mg/dL, Very high Secondary prevention optimal non HDL Cholesterol levels are recommended to be <100 mg/dL Performed By: #### 2 4325-3, 23203-2 ####[facility] LABIA [id number] [place] [address] [place] Cholesterol.total/Ch olesterol in HDL [Mass ratio] 5.21 {ratio} High <5.10 [facility] Comment on above: Order Comment: Speci men Type: BLOOD SPECIMENOrdering Facility: [facility] Address: [address] [place] [address] Performed By: #### 2 4325-3, 11408-1 ####[facility] LABCLIA [id number] [place] [address] [place] FASTING TIME [address] [facility] Comment on above: Order Comment: Speci men Type: BLOOD SPECIMENOrdering Facility: [facility] Address: [address] [place] [address] Performed By: #### 2 4325-3, 90573-5 ####[facility] LABCLIA [id number] [place] [address] [place] Triglyceride [Mass/Vol] 385 mg/dL High <150 [facility] Comment on above: Order Comment: Speci men Type: BLOOD SPECIMENOrdering Facility: [facility] Address: [address] [place] [address] Result Comment: <150 mg/dL, Normal 150-199 mg/dL, Borderline high 200-499 mg/dL, High >499 mg/dL, Very high Performed By: #### 2 4325-3, 97773-9 ####[facility] LABCLIA [id number] [place] [address] [place] CNOVon 04-17-2024 CNOV Office Visit (PULMST ) CHOCO MALDONADO ([id number]) 1960 M Date Time Provider Department 04/17/24 10:30 AM LESLIE IBRAHIM PULMST During your visit today, we recorded the following information about you: Pulse Blood pressure Weight 56/minute 142/80 94.4 kg Leslie Ibrahim, APARTMENT MAINTENANCE WORKER.SIGNAL SUPERVISOR 04/17/2024 1:00 PM Signed Lung Cancer Screening Pulmonary Nodule Follow-Up Current or Ex-smoker? [Ex] Exam Type: follow-up LDCT Number of Pack Years: 40 Current smoker (=0) or Number of Years since Quit: 1 The patient's smoking history is similar to prior year shared decision visit. Chief Complaint: Lung nodule History of Present Illness: Choco Maldonado is a 63 year old male who is presenting today for a 6 month follow-up from LDCT scan dated 10/11/23 for LUNG RADS Category 4B finding of a RUL 13mm part solid lung nodule. This nodule was reported as new, though had been present on prior scan but showed increase in density compared to a scan in August 2023 Respiratory symptoms include: SOB: Yes with multiple flight of stairs Chest tightness: No Coughing: No Hemoptysis: No Wheezing: No Night Sweats: No Recent Respiratory Infection: No Unintentional weight loss: No Current respiratory medication: none Activity: Any limitations to patient's activity are due to chronic leg pain from his PVD and back pain. ECOG PERFORMANCE STATUS: 1- Restricted in physically strenuous activity. Carries out light duty. Modified Medical Research [place] Dyspnea Scale (MMRC) I only get breathless with strenous exercise 0 Past Medical History: PAST MEDICAL HISTORY Diagnosis Date Acute diverticulitis Aortic insufficiency Arthritis Ascending aorta dilatation (HCC) 10/28/2023 Bursitis of elbow left Coronary artery disease mild nonobstructive Diverticulitis History of transfusion Hypertension Migraines PAD (peripheral artery disease) ([facility]) Palpitations Pinched nerve 11/04/2020 low back Psoriasis Raynaud disease SVT (supraventricular tachycardia) ([facility]) Tobacco abuse Surgical Hx: PAST SURGICAL HISTORY Procedure Laterality Date COLON SURGERY HX COLONOSCOPY FLX DX W/COLLJ SPEC WHEN PFRMD 05/23/2014 Colonoscopy COLONOSCOPY FLX DX W/COLLJ SPEC WHEN PFRMD 09/24/2017 Colonoscopy COLONOSCOPY FLX DX W/COLLJ SPEC WHEN PFRMD 04/16/2021 ESOPHAGOGASTRODUODENOSCOPY TRANSORAL DIAGNOSTIC 05/23/2014 EGD ESOPHAGOGASTRODUODENOSCOPY TRANSORAL DIAGNOSTIC 08/15/2014 EGD HEMORRHOIDECTOMY INT AND XTRNL 2/> COLUMN/FAHEEM 10/01/2017 left posterior PAST SURGICAL HISTORY OF 2008 Pain injections lumbar PAST SURGICAL HISTORY OF 08/03/2022 colostomy PAST SURGICAL HISTORY OF Right 12/2022 right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 site [S23.429A] 04/17/2008 08/17/2023 Sprain of neck [S13.9XXA] 04/21/2008 02/24/2023 Polycythemia, secondary [D75.1] 10/26/2012 Raynaud phenomenon [I73.00] 04/12/2014 Aortic valve regurgitation [I35.1] 04/19/2014 Hemorrhage of gastrointestinal tract, unspecifi*05/23/2014 05/23/2014 Abdominal pain, unspecified site [R10.9] 05/23/2014 05/23/2014 Thrombosed hemorrhoids [K64.5] 08/01/2014 01/28/2022 Psoriasis [L40.9] 08/07/2014 Tobacco use [Z72.0] 08/07/2014 01/05/2024 GERD (gastroesophageal reflux disease) [K21.9] 08/07/2014 Esophageal reflux [K21.9] 08/15/2014 08/15/2014 Palpitations [R00.2] 05/02/2015 Mixed hyperlipidemia [E78.2] 11/06/2015 Hyperviscosity [D75.9] 02/16/2018 Angina pectoris (HCC) [I20.9] 08/05/2020 01/05/2024 SVT (supraventricular tachycardia) ([facility]) [I47.1*09/02/2020 Bilateral carotid artery stenosis [I65.23] 03/31/2021 08/17/2023 Benign paroxysmal positional vertigo of right e*10/07/2021 Migraine with aura, not intractable, without st*12/03/2021 Dizziness [R42] 10/28/2021 Hypnic jerks [F51.8] 01/28/2022 Primary hypertension [I10] 05/27/2022 Dupuytren's disease of palm of right hand [M72.*06/30/2022 Pain of right hand [M79.641] 06/30/2022 05/22/2023 Alcohol dependence, daily use (HCC) [F10.20] 07/24/2022 PVD (peripheral vascular disease) (HCC) [I73.9] 01/11/2023 Peripheral arterial disease (HCC) [I73.9] 02/24/2023 05/22/2023 Critical limb ischemia of right lower extremity*04/28/2023 04/30/2023 Nicotine use disorder, F17.2 [F17.200] 04/29/2023 01/05/2024 PAD (peripheral artery disease) ([facility]) (more content not included)... Normal [facility] CBC W Auto Differential pane l (Bld)on 03-31-2024 Basophils (Bld) [#/Vol] 0.07 10*3/uL Normal <0.11 [facility] Comment on above: Order Comment: Speci men Type: BLOOD SPECIMENOrdering Facility: [facility] Address: [address] [place] [address] Performed By: #### 5 7021-8 ####[facility] LABCLIA [id number] [place] [address] [place] Basophils/100 WBC (Bld) 0.8 % Normal [facility] Comment on above: Order Comment: Speci men Type: BLOOD SPECIMENOrdering Facility: [facility] Address: [address] [place] [address] Performed By: #### 5 7021-8 ####[facility] LABCLIA [id number] [place] [address] [place] Differential cell count method Nom (Bld) Auto Normal [facility] Comment on above: Order Comment: Speci men Type: BLOOD SPECIMENOrdering Facility: [facility] Address: [address] [place] [address] Performed By: #### 5 7021-8 ####[facility] LABCLIA [id number] [place] [address] [place] Eosinophils (Bld) [#/Vol] 0.14 10*3/uL Normal <0.46 [facility] Comment on above: Order Comment: Speci men Type: BLOOD SPECIMENOrdering Facility: [facility] Address: [address] [place] [address] Performed By: #### 5 7021-8 ####[facility] LABCLIA [id number] [place] [address] [place] Eosinophils/100 WBC (Bld) 1.6 % Normal [facility] Comment on above: Order Comment: Speci men Type: BLOOD SPECIMENOrdering Facility: [facility] Address: [address] [place] [address] Performed By: #### 5 7021-8 ####[facility] LABCLIA [id number] [place] [address] [place] Erythrocyte distribution width (RBC) [Ratio] 17.3 % High 11.5-15.0 [facility] Comment on above: Order Comment: Speci men Type: BLOOD SPECIMENOrdering Facility: [facility] Address: [address] [place] [address] Performed By: #### 5 7021-8 ####[facility] LABIA [id number] [place] [address] [place] Hematocrit (Bld) [Volume fraction] 41.1 % Normal 39.0-51.0 [facility] Comment on above: Order Comment: Speci men Type: BLOOD SPECIMENOrdering Facility: [facility] Address: [address] [place] [address] Performed By: #### 5 7021-8 ####[facility] LABIA [id number] [place] [address] [place] Hemoglobin (Bld) [Mass/Vol] 12.7 g/dL Low 13.0-17.0 [facility] Comment on above: Order Comment: Speci men Type: BLOOD SPECIMENOrdering Facility: [facility] Address: [address] [place] [address] Performed By: #### 5 7021-8 ####[facility] LABIA [id number] [place] [address] [place] Immature granulocytes (Bld) [#/Vol] 0.04 10*3/uL Normal <0.10 [facility] Comment on above: Order Comment: Speci men Type: BLOOD SPECIMENOrdering Facility: [facility] Address: [address] [place] [address] Performed By: #### 5 7021-8 ####[facility] LABCLIA [id number] [place] [address] [place] Immature granulocytes/100 WBC (Bld) 0.4 % Normal [facility] Comment on above: Order Comment: Speci men Type: BLOOD SPECIMENOrdering Facility: [facility] Address: [address] [place] [address] Performed By: #### 5 7021-8 ####[facility] LABCLIA [id number] [place] [address] [place] Lymphocytes (Bld) [#/Vol] 2.62 10*3/uL Normal 1.00-4.00 [facility] Comment on above: Order Comment: Speci men Type: BLOOD SPECIMENOrdering Facility: [facility] Address: [address] [place] [address] Performed By: #### 5 7021-8 ####[facility] LABCLIA [id number] [place] [address] [place] Lymphocytes/100 WBC (Bld) 29.3 % Normal [facility] Comment on above: Order Comment: Speci men Type: BLOOD SPECIMENOrdering Facility: [facility] Address: [address] [place] [address] Performed By: #### 5 7021-8 ####[facility] LABCLIA [id number] [place] [address] [place] MCH (RBC) [Entitic mass] 26.3 pg Normal 26.0-34.0 [facility] Comment on above: Order Comment: Speci men Type: BLOOD SPECIMENOrdering Facility: [facility] Address: [address] [place] [address] Performed By: #### 5 7021-8 ####[facility] LABIA [id number] [place] [address] [place] MCHC (RBC) [Mass/Vol] 30.9 g/dL Normal 30.5-36.0 [facility] Comment on above: Order Comment: Speci men Type: BLOOD SPECIMENOrdering Facility: [facility] Address: [address] [place] [address] Performed By: #### 5 7021-8 ####[facility] LABCLIA [id number] [place] [address] [place] MCV (RBC) [Entitic vol] 85.1 fL Normal 80.0-100.0 [facility] Comment on above: Order Comment: Speci men Type: BLOOD SPECIMENOrdering Facility: [facility] Address: [address] [place] [address] Performed By: #### 5 7021-8 ####[facility] LABCLIA [id number] [place] [address] [place] Monocytes (Bld) [#/Vol] 0.40 10*3/uL Normal <0.87 [facility] Comment on above: Order Comment: Speci men Type: BLOOD SPECIMENOrdering Facility: [facility] Address: [address] [place] [address] Performed By: #### 5 7021-8 ####[facility] LABCLIA [id number] [place] [address] [place] Monocytes/100 WBC (Bld) 4.5 % Normal [facility] Comment on above: Order Comment: Speci men Type: BLOOD SPECIMENOrdering Facility: [facility] Address: [address] [place] [address] Performed By: #### 5 7021-8 ####[facility] LABIA [id number] [place] [address] [place] Neutrophils (Bld) [#/Vol] 5.67 10*3/uL Normal 1.45-7.50 [facility] Comment on above: Order Comment: Speci men Type: BLOOD SPECIMENOrdering Facility: [facility] Address: [address] [place] [address] Performed By: #### 5 7021-8 ####[facility] LABCLIA [id number] [place] [address] [place] Neutrophils/100 WBC (Bld) 63.4 % Normal [facility] Comment on above: Order Comment: Speci men Type: BLOOD SPECIMENOrdering Facility: [facility] Address: [address] [place] [address] Performed By: #### 5 7021-8 ####[facility] LABCLIA [id number] [place] [address] [place] Nucleated RBC (Bld) [#/Vol] 10*3/uL Normal <0.01 [facility] Comment on above: Order Comment: Speci men Type: BLOOD SPECIMENOrdering Facility: [facility] Address: [address] [place] [address] Performed By: #### 5 7021-8 ####[facility] LABIA [id number] [place] [address] [place] Nucleated RBC/100 WBC (Bld) [Ratio] 0.0 /[address] [facility] Comment on above: Order Comment: Speci men Type: BLOOD SPECIMENOrdering Facility: [facility] Address: [address] [place] [address] Performed By: #### 5 7021-8 ####[facility] LABIA [id number] [place] [address] [place] Platelet mean volume (Bld) [Entitic vol] 9.5 fL Normal 9.0-12.7 [facility] Comment on above: Order Comment: Speci men Type: BLOOD SPECIMENOrdering Facility: [facility] Address: [address] [place] [address] Performed By: #### 5 7021-8 ####[facility] LABIA [id number] [place] [address] [place] Platelets (Bld) [#/Vol] 383 10*3/uL Normal 150-400 [facility] Comment on above: Order Comment: Speci men Type: BLOOD SPECIMENOrdering Facility: [facility] Address: [address] [place] [address] Performed By: #### 5 7021-8 ####[facility] [facility] LABCLIA [id number] [place] [id number] [place] RBC (Bld) [#/Vol] 4.83 10*6/uL Normal 4.20-6.00 [facility] Comment on above: Order Comment: Speci men Type: BLOOD SPECIMENOrdering Facility: [facility] Address: [address] [place] [address] Performed By: #### 5 7021-8 ####[facility] LABIA [id number] [place] [address] [place] WBC (Bld) [#/Vol] 8.94 10*3/uL Normal 3.70-11.00 [facility] Comment on above: Order Comment: Speci men Type: BLOOD SPECIMENOrdering Facility: [facility] Address: [address] [place] [address] Performed By: #### 5 7021-8 ####[facility] [id number] [place] [address] [place] Ferritin SerPl-mCncon 2023 Ferritin [Mass/Vol] 65.4 ng/mL Normal 30.3-565.7 [facility] Comment on above: Order Comment: Speci men Type: BLOOD SPECIMENOrdering Facility: [facility] Address: [address] [place] [address] Performed By: #### 2 4325-3, 87459-5, 49936-7, 2276-4 ####[facility] LABIA [id number] [place] [address] [place] Hepatic function 2000 panelo n 03-31-2024 Albumin [Mass/Vol] 4.3 g/dL Normal 3.9-4.9 [facility] Comment on above: Order Comment: Speci men Type: BLOOD SPECIMENOrdering Facility: [facility] Address: [address] [place] [address] Performed By: #### 2 4325-3, 46174-9, 63787-8, 6-4 ####[facility] LABIA [id number] [place] [address] [place] ALP [Catalytic activity/Vol] 130 U/L High 38-113 [facility] Comment on above: Order Comment: Speci men Type: BLOOD SPECIMENOrdering Facility: [facility] Address: [address] [place] [address] Performed By: #### 2 4325-3, 65590-0, 79173-4, 6-4 ####[facility] LABIA [id number] [place] [address] [place] ALT [Catalytic activity/Vol] 17 U/L Normal 10-54 [facility] Comment on above: Order Comment: Speci men Type: BLOOD SPECIMENOrdering Facility: [facility] Address: [address] [place] [address] Performed By: #### 2 4325-3, 58403-5, 17758-5, 6-4 ####[facility] LABIA [id number] [place] [address] [place] AST [Catalytic activity/Vol] 17 U/L Normal 14-40 [facility] Comment on above: Order Comment: Speci men Type: BLOOD SPECIMENOrdering Facility: [facility] Address: [address] [place] [address] Performed By: #### 2 4325-3, 38068-7, 34916-3, 2275-4 ####[facility] LABIA [id number] [place] [address] [place] Bilirubin [Mass/Vol] 0.5 mg/dL Normal 0.2-1.3 [facility] Comment on above: Order Comment: Speci men Type: BLOOD SPECIMENOrdering Facility: [facility] Address: [address] [place] [address] Performed By: #### 2 4325-3, 99648-1, 37959-8, 6-4 ####[facility] LABCLIA [id number] [place] [id number] [place] Bilirubin.conjugated [Mass/Vol] mg/dL Normal <0.2 [facility] Comment on above: Order Comment: Speci men Type: BLOOD SPECIMENOrdering Facility: [facility] Address: [address] [place] [address] Performed By: #### 2 4325-3, 12808-8, 87567-2, 6-4 ####[facility] LABIA [id number] [place] [address] [place] Protein [Mass/Vol] 7.8 g/dL Normal 6.3-8.0 [facility] Comment on above: Order Comment: Speci men Type: BLOOD SPECIMENOrdering Facility: [facility] Address: [address] [place] [address] Performed By: #### 2 4325-3, 54615-0, 11645-9, 6-4 ####[facility] LABIA [id number] [place] [address] [place] Iron and Iron binding capaci ty panelon 03-31-2024 Iron [Mass/Vol] 67 ug/dL Normal 41-186 [facility] Comment on above: Order Comment: Speci men Type: BLOOD SPECIMENOrdering Facility: [facility] Address: [address] [place] [address] Performed By: #### 2 4325-3, 01721-8, 50227-5, 6-4 ####[facility] LABIA [id number] [place] [address] [place] Iron binding capacity [Mass/Vol] 357 ug/dL Normal 232-386 [facility] Comment on above: Order Comment: Speci men Type: BLOOD SPECIMENOrdering Facility: [facility] Address: [address] [place], [place] [address] Performed By: #### 2 4325-3, 64049-5, 79031-7, 2275-4 ####[facility] LABCLIA [id number] [place] [address] [place] Iron/TIBC [Molar ratio] 18.8 % Normal 15.0-57.0 [facility] Comment on above: Order Comment: Speci men Type: BLOOD SPECIMENOrdering Facility: [facility] Address: [address] [place] [address] Performed By: #### 2 4325-3, 77639-1, 79935-2, 2275- ####[facility] LABCLIA [id number] [place] [address] [place] Lipid 1996 panelon 4 Cholesterol [Mass/Vol] 214 mg/dL High <200 [facility] Comment on above: Order Comment: Speci men Type: BLOOD SPECIMENOrdering Facility: [facility] Address: [address] [place] [address] Result Comment: <200 mg/dL, Desirable 200-239 mg/dL, Borderline high >239 mg/dL, High Performed By: #### 2 4325-3, 70493-0, 61178-5, 2275-08 ####[facility] LABCLIA [id number] [place] [address] [place] Cholesterol in HDL [Mass/Vol] 39 mg/dL Low >39 [facility] Comment on above: Order Comment: Speci men Type: BLOOD SPECIMENOrdering Facility: [facility] Address: [address] [place] [address] Result Comment: 40-5 9 mg/dL, Acceptable >59 mg/dL, High: Negative risk factor for coronary heart disease <40 mg/dL, Low: Positive risk factor for coronary heart disease Performed By: #### 2 4325-3, 93685-0, 60223-5, 2275-4 ####[facility] LABCLIA [id number] [place] [address] [place] Cholesterol in LDL [Mass/Vol] 117 mg/dL High <100 [facility] Comment on above: Order Comment: Bebai men Type: BLOOD SPECIMENOrdering Facility: [facility] Address: [address] [place] [address] Result Comment: <100 mg/dL, Optimal 100-129 mg/dL, Near optimal/above optimal 130-159 mg/dL, Borderline high 160-189 mg/dL, High >189 mg/dL, Very high Secondary prevention optimal LDL Cholesterol levels are recommended to be < 70 mg/dL Performed By: #### 2 4325-3, 89778-6, 06253-7, 2275-4 ####[facility] LABCLIA [id number] [place] [address] [place] Cholesterol in LDL/Cholesterol in HDL [Mass ratio] 3.00 {ratio} High <2.54 [facility] Comment on above: Order Comment: Ariana men Type: BLOOD SPECIMENOrdering Facility: [facility] Address: [address] [place] [address] Result Comment: Refe rence: 1. National Cholesterol Education Program ATP III Guideline At-A-Glance Quick Desk Reference: National Heart, Lung, and Blood [place]. National Institutes of Health. 2001: NIH Publication No. 01-3305. 2. An International Atherosclerosis Society position paper: global recommendations for the management of dyslipidemia: executive summary, Atherosclerosis. 2014: 232(2):410-413. Performed By: #### 2 4325-3, 10237-1, 21748-2, 2275-4 ####[facility] LABCLIA [id number] [place] [address] [place] Cholesterol in VLDL [Mass/Vol] 58 mg/dL High <30 [facility] Comment on above: Order Comment: Ariana men Type: BLOOD SPECIMENOrdering Facility: [facility] Address: [address] [place] [address] Performed By: #### 2 4325-3, 60499-6, 94890-3, 2276-4 ####[facility] LABCLIA [id number] [address] [address] [place] Cholesterol non HDL [Mass/Vol] 175 mg/dL High <130 [facility] Comment on above: Order Comment: Speci men Type: BLOOD SPECIMENOrdering Facility: [facility] Address: [address] [place] [address] Result Comment: <130 mg/dL, Optimal 130-159 mg/dL, Near optimal/above optimal 160-189 mg/dL, Borderline high 190-219 mg/dL, High >219 mg/dL, Very high Secondary prevention optimal non HDL Cholesterol levels are recommended to be <100 mg/dL Performed By: #### 2 4325-3, 53578-9, 18315-0, 2275-08 ####[facility] LABCLIA [id number] [place] [address] [place] Cholesterol.total/Ch olesterol in HDL [Mass ratio] 5.49 {ratio} High <5.10 [facility] Comment on above: Order Comment: Speci men Type: BLOOD SPECIMENOrdering Facility: [facility] Address: [address] [place] [address] Performed By: #### 2 4325-3, 22088-4, 34996-9, 2275-08 ####[facility] LABCLIA [id number] [place] [address] [place] FASTING TIME [address] [facility] Comment on above: Order Comment: Speci men Type: BLOOD SPECIMENOrdering Facility: [facility] Address: [address] [place] [address] Performed By: #### 2 4325-3, 18507-0, 76480-6, 2275-08 ####[facility] LABCLIA [id number] [place] [address] [place] Triglyceride [Mass/Vol] 292 mg/dL High <150 [facility] Comment on above: Order Comment: Speci men Type: BLOOD SPECIMENOrdering Facility: [facility] Address: [address] [place] [address] Result Comment: <150 mg/dL, Normal 150-199 mg/dL, Borderline high 200-499 mg/dL, High >499 mg/dL, Very high Performed By: #### 2 4325-3, 46719-2, 99790-9, 2276-4 ####[facility] LABCLIA [id number] [id number] [id number] [facility] CNOVon 03-22-2024 CNOV Office Visit (AGGAST ACC) CHOCO MALDONADO ([id number]) 1960 M Date Time Provider Department 03/22/24 11:15 AM CHOCO STEVENS AGGASTACC During your visit today, we recorded the following information about you: Pulse Blood pressure Weight Height 70/minute 167/74 93.7 kg 1.88 m Choco Stevens MD 03/22/2024 11:42 AM Signed HPI: Choco W Joel is a 63 year old male who presents for follow up of Consult. Pt is on Iron once per day. Still had black stool but on Iron vs some ds it's brown. Iron sat still lw but better, ferritin 61, and Hgb now 13.5. In January , had PCI and balloon angioplasty for PVD in RLE on DAPT. Current Outpatient Medications Medication Sig atorvastatin (LIPITOR) 80 mg tablet Take 1 tablet by mouth daily at bedtime. clopidogrel (PLAVIX) 75 mg tablet Take 1 tablet by mouth once daily. oxyCODONE-acetaminophen (PERCOCET) 5-325 mg tablet Take by mouth every 8 hours as needed for pain. dicyclomine (BENTYL) 20 mg tablet Take 1 tablet by mouth two times a day as needed (abdominal pain). dilTIAZem CR (TIAZAC, TAZTIA XT) 120 mg 24 hr capsule Take 1 capsule by mouth once daily. iron polysaccharide complex (FERREX-150) 150 mg iron capsule Take 150 mg by mouth once daily. ondansetron orally disintegrating (ZOFRAN ODT) 4 mg disintegrating tablet tiZANidine (ZANAFLEX) 4 mg tablet Take 4 mg by mouth daily at bedtime. FLUoxetine (PROZAC) 40 mg capsule Take 1 capsule by mouth once daily. pantoprazole DR (PROTONIX) 40 mg tablet Take 1 tablet by mouth daily before breakfast. Take on empty stomach, 1/2 hr before meal. therapeutic multivitamin-minerals (THERA-M PLUS) 9 mg iron-400 mcg tablet Take 1 tablet by mouth once daily. thiamine (VITAMIN B1) 100 mg tablet Take 1 tablet by mouth once daily. aspirin 81 mg chewable tablet Take 1 tablet by mouth once daily. gabapentin (NEURONTIN) 300 mg capsule Take 1 capsule by mouth every 12 hours. TREMFYA 100 mg/mL AutoInjector Inject 100 mg subcutaneously every 8 weeks. fremanezumab-vfrm (AJOVY AUTOINJECTOR) 225 mg/1.5 mL auto-injector Ajovy 225 mg/1.5 mL subcutaneous auto-injector Inject 1.5 mL subcutaneously once a month rimegepant (NURTEC ODT) 75 mg disintegrating tablet Nurtec ODT 75 mg disintegrating tablet Take 1 tab under tongue at onset of migraine. Max 1 in 24 hours. acetaminophen (TYLENOL) 325 mg tablet Take 650 mg by mouth every 6 hours as needed. amitriptyline (ELAVIL) 25 mg tablet Take 1 tablet by mouth daily at bedtime. No current facility-administered medications for this visit. ALLERGIES Allergen Reactions Verapamil Rash REVIEW OF SYSTEMS: GENERAL: No weight loss, malaise or fevers. HEENT: Negative for frequent or significant headaches, No changes in hearing or vision, no nose bleeds or other nasal problems. NECK: Negative for lumps, goiter, pain and significant neck swelling. RESPIRATORY: Negative for cough, hemoptysis, wheezing or shortness of breath CARDIOVASCULAR: Negative for chest pain, leg swelling or palpitations GI: See HPI : No history of dysuria, frequency or incontinence MUSCULOSKELETAL: Negative for joint pain or swelling, back pain or muscle pain. SKIN: Negative for lesions, rash, and itching PSYCH: Negative for sleep disturbance, mood disorder and recent psychosocial stressors NEURO: No history of headaches, syncope, paralysis, seizures or tremors PHYSICAL EXAMINATION: BP 167/74 Pulse 70 Ht 6' 2 (1.88m) Wt 206 lb 8 oz (93.7kg) BMI 26.50 kg/(m2). GENERAL APPEARANCE: Well appearing, alert, in no acute distress, well-hydrated, well nourished. EYES: No icterus ABDOMEN: Normal, soft, non-tender, no masses or organomegaly. ASSESSMENT AND PLAN: ASSESSMENT/PLAN: 1. History of creation of ostomy (HCC) - ICD9: V44.9, ICD10: Z93.9 (primary diagnosis) - hx of diverticulitis w perf and Indu's procedure - Brandstetter following 2. Iron deficiency anemia due to chronic blood loss - ICD9: 280.0, ICD10: D50.0 - stable at this point, Hgb 13.5 last week - If rebleeds may need DB or SB antegrade enteroscopy at Choco Stevens MD Allergies As of Date: 03/22/2024 Noted Allergy Reaction VERAPAMIL 11/07/2019 2 - Rash Date Reviewed: 03/22/2024 Reviewed by: Marti Day MA - Fully Assessed Reason for Visit: Consult [502] Primary Visit Diagnosis:History of creation of ostomy (HCC) [Z93.9] Other Visit Diagnosis:Iron deficiency anemia due to chronic blood loss [D50.0] Prescriptions as of 03/22/2024 - atorvastatin (LIPITOR) 80 mg tablet Take 1 tablet by mouth daily at bedtime. - clopidogrel (PLAVIX) 75 mg tablet Take 1 tablet by mouth once daily. - oxyCODONE-acetaminophen (PERCOCET) 5-325 mg tablet Take by mouth every 8 hours as needed for pain. - dicyclomine (BENTYL) 20 mg tablet Take 1 tablet by mouth two times a day as needed (abdominal pain). - dilTIAZem (more content not included)... Normal [facility] [place] 03-16-2024 CORI Telephone (AGGASTACC ) JOLECHOCO ([id number]) 1960 M Date Time Provider Department 03/16/24 CHIOMA BASSETT During your visit today, we recorded the following information about you: Chioma Bassett PA-C 03/16/2024 4:29 PM Signed Please let pt know blood work is getting better. Would like to have it repeated in 2 weeks. It is ordered. NANNETTE Valadez Briley, MA 03/17/2024 12:04 PM Signed Called and informed patient of his bloodwork results and to repeat labs in 2 weeks. Patient voiced understanding. No further questions. March 17, 2024 12:04 PM Marti Day MA Allergies As of Date: 03/16/2024 Noted Allergy Reaction VERAPAMIL 11/07/2019 2 - Rash Date Reviewed: 02/14/2024 Reviewed by: Isabel Patel RN - Fully Assessed Reason for Visit: Orders [681] Primary Visit Diagnosis:Gastrointestinal hemorrhage, unspecified gastrointestinal hemorrhage type [K92.2] Other Visit Diagnosis:Iron deficiency anemia, unspecified iron deficiency anemia type [D50.9] Order(s):FERRITIN [SQFERR] Order #: [id number] FUTURE IRON AND TIBC [SQIRON] Order #: [id number] FUTURE COMPLETE BLOOD COUNT [SQCBC] Order #: [id number] FUTURE Prescriptions as of 03/17/2024 - atorvastatin (LIPITOR) 80 mg tablet Take 1 tablet by mouth daily at bedtime. - clopidogrel (PLAVIX) 75 mg tablet Take 1 tablet by mouth once daily. - oxyCODONE-acetaminophen (PERCOCET) 5-325 mg tablet Take by mouth every 8 hours as needed for pain. - dicyclomine (BENTYL) 20 mg tablet Take 1 tablet by mouth two times a day as needed (abdominal pain). - dilTIAZem CR (TIAZAC, TAZTIA XT) 120 mg 24 hr capsule Take 1 capsule by mouth once daily. - amitriptyline (ELAVIL) 25 mg tablet Take 1 tablet by mouth daily at bedtime. - iron polysaccharide complex (FERREX-150) 150 mg iron capsule Take 150 mg by mouth once daily. - ondansetron orally disintegrating (ZOFRAN ODT) 4 mg disintegrating tablet - tiZANidine (ZANAFLEX) 4 mg tablet Take 4 mg by mouth daily at bedtime. - FLUoxetine (PROZAC) 40 mg capsule Take 1 capsule by mouth once daily. - pantoprazole DR (PROTONIX) 40 mg tablet Take 1 tablet by mouth daily before breakfast. Take on empty stomach, 1/2 hr before meal. - therapeutic multivitamin-minerals (THERA-M PLUS) 9 mg iron-400 mcg tablet Take 1 tablet by mouth once daily. - thiamine (VITAMIN B1) 100 mg tablet Take 1 tablet by mouth once daily. - aspirin 81 mg chewable tablet Take 1 tablet by mouth once daily. - gabapentin (NEURONTIN) 300 mg capsule Take 1 capsule by mouth every 12 hours. - TREMFYA 100 mg/mL AutoInjector Inject 100 mg subcutaneously every 8 weeks. - fremanezumab-vfrm (AJOVY AUTOINJECTOR) 225 mg/1.5 mL auto-injector Ajovy 225 mg/1.5 mL subcutaneous auto-injector Inject 1.5 mL subcutaneously once a month - rimegepant (NURTEC ODT) 75 mg disintegrating tablet Nurtec ODT 75 mg disintegrating tablet Take 1 tab under tongue at onset of migraine. Max 1 in 24 hours. - acetaminophen (TYLENOL) 325 mg tablet Take 650 mg by mouth every 6 hours as needed. Meds Comments as of 08/26/2023: 08/26/23 The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 MALDONADO Date of : 1960 Age: 63 years Gender: M Clinical Indication Pain at rest in leg and S/P angioplasty of the right superficial femoral to posterior tibial artery bypass graft done on 07/29/2023. TECHNIQUE -------- An arterial physiological examination was performed, including measurement of blood pressures using continuous wave Doppler and recording of plethysmographic with or without Doppler waveforms at the below-mentioned limb segments. FINDINGS -------- RIGHT SIDE AT REST Right Doppler Waveforms Dorsalis pedis: Monophasic. Post tibial: Monophasic. Right Pressures Brachial: 157 mmHg Calf: 89 mmHg Ankle dorsalis pedis: 84 mmHg SAVANNA: 0.54 Right PVR Waveforms Ankle: Moderately dampened. LEFT SIDE AT REST Left Doppler Waveforms Dorsalis pedis: Multiphasic. Post tibial: Multiphasic. Left Pressures Brachial: 150 mmHg Ankle dorsalis pedis: 165 mmHg SAVANNA: 1.05 Ankle posterior tibial: 177 mmHg SAVANNA: 1.13 Left PVR Waveforms Ankle: Normal. IMPRESSION Compared to prior study of 08/31/2023, right ankle brachial index decreased from 0.91 and essentially no change to the left side. RIGHT SIDE Resting right ankle brachial index: 0.54 Abnormal ankle brachial index at rest diagnostic of peripheral artery disease. Right ankle: Moderate disease at rest. LEFT SIDE Resting left ankle brachial index: 1.13 Normal ankle brachial index at rest in the left leg. Left ankle: Normal at rest. Technologist: Caitlin Leblanc RVT Ordering physician: CHRISTIANA ARRINGTON Interpreting physician: Narciso Robles MD, RPJESSICA Final CC [employer] [facility] Image : [id number] [employer] See Link below for Image Normal [facility] LEG ARTERIAL PERIPH UNL V LABon 01-19-2024 LEG ARTERIAL PERIPH UNL VAS LAB Non-Invasive Vascular Laboratory [facility] Lower Extremity Arterial Duplex Unilateral - Right Date of service/time: 01/19/2024 12:59:23 PM Name: MR. CHOCO MALDONADO Date of : 1960 Age: 63 years Gender: M Clinical Indication Pain at rest in leg and S/P angioplasty of the right superficial femoral to posterior tibial artery bypass graft done on 07/29/2023. TECHNIQUE -------- An arterial duplex ultrasound examination was performed, including grayscale imaging and color Doppler and spectral Doppler examination of the below mentioned arteries. FINDINGS -------- RIGHT ARTERIES External iliac distal: PSV: 144 cm/s. EDV: 0 cm/s. Multiphasic waveform. Common femoral mid: Plaque present. PSV: 143 cm/s. EDV: 0 cm/s. Multiphasic waveform. Profunda femoral proximal: Plaque present. PSV: 193 cm/s. EDV: 0 cm/s. Multiphasic waveform. Superficial femoral origin: Plaque present. PSV: 120 cm/s. EDV: 0 cm/s. Multiphasic waveform. Superficial femoral proximal: Plaque present. PSV: 80 cm/s. EDV: 0 cm/s. Multiphasic waveform. Superficial femoral mid: Plaque present. PSV: 88 cm/s. EDV: 0 cm/s. Monophasic, high resistive waveform. Superficial femoral distal: Plaque present. PSV: 118 cm/s. EDV: 9 cm/s. Monophasic, intermediate resistive waveform. VESSEL/GRAFT Superficial femoral to posterior tibial bypass graft proximal anastomosis: Plaque present. PSV: 604 cm/s. EDV: 107 cm/s. Monophasic, high resistive waveform. post stenosis: PSV: 201 cm/s. EDV: 33 cm/s. Monophasic, intermediate resistive waveform. proximal: PSV: 37 cm/s. EDV: 8 cm/s. Monophasic, low resistive waveform. pre stenotic area: PSV: 20 cm/s. EDV: 5 cm/s. Monophasic, low resistive waveform. distal thigh: Plaque present. PSV: 56 cm/s. EDV: 10 cm/s. Monophasic, intermediate resistive waveform. post stenosis: PSV: 34 cm/s. EDV: 7 cm/s. Monophasic, low resistive waveform. distal anastomosis: PSV: 11 cm/s. EDV: 4 cm/s. Monophasic, low resistive waveform. Posterior tibial artery proximal: PSV: 39 cm/s. EDV: 11 cm/s. Monophasic, low resistive waveform. IMPRESSION Dr. Arrington was notified with results at 2:00pm. Compared to prior study of 08/31/2023, essentially no change. RIGHT SIDE External iliac artery distal: plaque noted without evidence of hemodynamically significant stenosis . Common femoral artery, Profunda femoral artery and Superficial femoral artery throughout: plaque noted without evidence of hemodynamically significant stenosis . Superficial femoral to posterior tibial artery bypass graft proximal anastomosis: 50-99% stenosis . Hyperplasia noted. distal thigh: 50-99% stenosis . Hyperplasia noted. Velocities distal to stenosis are low throughout the remainder of the graft indicative of graft failure. Velocity shift noted in the posterior tibial artery distal to graft appears overestimated due to vessel diameter mismatch. Technologist: Caitlin Leblanc RVT Ordering physician: CHRISTIANA ARRINGTON Interpreting physician: Narciso Robles MD, [facility] Final CC [employer] [facility] Image : [id number] [employer] See Link below for Image Normal [facility] CNOVon 01-05-2024 CNOV Office Visit (FAMPWS ) CHOCO MALDONADO ([id number]) 1960 M Date Time Provider Department 01/05/24 2:40 PM LINDA PARISH FAMPWS During your visit today, we recorded the following information about you: Pulse Blood pressure Weight Height 67/minute 138/68 93.9 kg 1.829 m Linda Parish MD 01/05/2024 3:10 PM Signed Patient presents with: Follow Up HPI: Patient presents today for office visit for follow up. Having PVR/US done with vascular on 01/19/24 Follow up not until March. Still with tingling and numbness in right leg. Occasional swelling to inside of right calf. No redness. Incisions are all healed. Scheduled with Gastro this Wednesday01/07/24. Following with Pain mgt. Dr. Calvert. Switched from [place] to Nalocet. Has seen pulmonary, hematology and cardiology. Anemia is improving. No bloody stools. Ostomy is working well. They are hoping to close it at some point. No chest pain. No new shortness of breath. Emotionally is doing well. No issues with meds. Raynaud's is stable. Not smoking since Apr!!! Needs to follow with derm. Latest Ref Rng 01/04/2024 WBC 3.70 - 11.00 k/uL 7.80 RBC 4.20 - 6.00 m/uL 4.93 Hemoglobin 13.0 - 17.0 g/dL 12.5 (L) Hematocrit 39.0 - 51.0 % 39.7 MCV 80.0 - 100.0 fL 80.5 MCH 26.0 - 34.0 pg 25.4 (L) MCHC 30.5 - 36.0 g/dL 31.5 RDW-CV 11.5 - 15.0 % 19.7 (H) Platelet Count 150 - 400 k/uL 381 MPV 9.0 - 12.7 fL 9.3 Neut% % 66.3 Abs Neut (ANC) 1.45 - 7.50 k/uL 5.17 Lymph% % 26.0 Abs Lymph 1.00 - 4.00 k/uL 2.03 Lenoir% % 4.6 Abs Lenoir <0.87 k/uL 0.36 Eosin% % 1.8 Abs Eosin <0.46 k/uL 0.14 Baso% % 0.9 Abs Baso <0.11 k/uL 0.07 Immature Gran % % 0.4 IMMATURE GRANS (ABS) <0.10 k/uL 0.03 NRBC /100 WBC 0.0 Absolute nRBC <0.01 k/uL <0.01 DTYPE Auto Protein, Total 6.3 - 8.0 g/dL 7.7 Albumin 3.9 - 4.9 g/dL 4.5 Calcium 8.5 - 10.2 mg/dL 9.5 Bilirubin, Total 0.2 - 1.3 mg/dL 0.3 Alkaline Phosphatase 38 - 113 U/L 117 (H) AST 14 - 40 U/L 26 ALT 10 - 54 U/L 31 Glucose 74 - 99 mg/dL 98 BUN 9 - 24 mg/dL 16 Creatinine 0.73 - 1.22 mg/dL 1.02 Sodium 136 - 144 mmol/L 139 Potassium 3.7 - 5.1 mmol/L 3.9 Chloride 98 - 107 mmol/L 103 CO2 22 - 30 mmol/L 23 Anion Gap 8 - 15 mmol/L 13 eGFR >=60 mL/min/1.73m? 83 Ferritin 30.3 - 565.7 ng/mL 25.3 (L) Legend: (L) Low (H) High MEDICATIONS: Current Outpatient Medications Medication Sig NALOCET 2.5-300 mg per tablet Take 2 tablets by mouth once daily. dilTIAZem CR (TIAZAC, TAZTIA XT) 120 mg 24 hr capsule Take 1 capsule by mouth once daily. atorvastatin (LIPITOR) 40 mg tablet Take 1 tablet by mouth daily at bedtime. amitriptyline (ELAVIL) 25 mg tablet Take 1 tablet by mouth daily at bedtime. clopidogrel (PLAVIX) 75 mg tablet Take 1 tablet by mouth once daily. iron polysaccharide complex (FERREX-150) 150 mg iron capsule Take 150 mg by mouth once daily. ondansetron orally disintegrating (ZOFRAN ODT) 4 mg disintegrating tablet tiZANidine (ZANAFLEX) 4 mg tablet Take 4 mg by mouth daily at bedtime. FLUoxetine (PROZAC) 40 mg capsule Take 1 capsule by mouth once daily. pantoprazole DR (PROTONIX) 40 mg tablet Take 1 tablet by mouth daily before breakfast. Take on empty stomach, 1/2 hr before meal. therapeutic multivitamin-minerals (THERA-M PLUS) 9 mg iron-400 mcg tablet Take 1 tablet by mouth once daily. thiamine (VITAMIN B1) 100 mg tablet Take 1 tablet by mouth once daily. aspirin 81 mg chewable tablet Take 1 tablet by mouth once daily. gabapentin (NEURONTIN) 300 mg capsule Take 1 capsule by mouth every 12 hours. TREMFYA 100 mg/mL AutoInjector Inject 100 mg subcutaneously every 8 weeks. fremanezumab-vfrm (AJOVY AUTOINJECTOR) 225 mg/1.5 mL auto-injector Ajovy 225 mg/1.5 mL subcutaneous auto-injector Inject 1.5 mL subcutaneously once a month rimegepant (NURTEC ODT) 75 mg disintegrating tablet Nurtec ODT 75 mg disintegrating tablet Take 1 tab under tongue at onset of migraine. Max 1 in 24 hours. acetaminophen (TYLENOL) 325 mg tablet Take 650 mg by mouth every 6 hours as needed. No current facility-administered medications for this visit. ALLERGIES: ALLERGIES Allergen Reactions Verapamil Rash PAST MEDICAL HISTORY No date: Acute diverticulitis No date: Aortic insufficiency 10/28/2023: Ascending aorta dilatation ([facility]) No date: Bursitis of elbow Comment: left No date: Coronary artery disease Comment: mild nonobstructive No date: Diverticulitis No date: Migraines No date: PAD (peripheral artery disease) ([facility]) No date: Palpitations 11/04/2020: Pinched nerve Comment: low back No date: Psoriasis No date: Raynaud disease No date: SVT (supraventricular tachycardia) ([facility]) No date: Tobacco abuse PAST SURGICAL HISTORY No date: COLON SURGERY HX 05/23/2014: COLONOSCOPY FLX DX W/COLLJ SPEC WHEN PFRMD Comment: Colonoscopy 09/24/2017: COLONOSCOPY FLX DX W/COLLJ SPE (more content not included)... Normal [facility] CBC W Auto Differential pane l (Bld)on 01-04-2024 Basophils (Bld) [#/Vol] 0.07 10*3/uL Normal <0.11 [facility] Comment on above: Order Comment: Speci men Type: BLOOD SPECIMENOrdering Facility: [facility] Address: [address] [place] [address] Performed By: #### 5 7021-8 ####[facility] LABCLIA [id number] [place] [address] [place] Basophils/100 WBC (Bld) 0.9 % Normal [facility] Comment on above: Order Comment: Speci men Type: BLOOD SPECIMENOrdering Facility: [facility] Address: [address] [place] [address] Performed By: #### 5 7021-8 ####[facility] LABCLIA [id number] [place] [address] [place] Differential cell count method Nom (Bld) Auto Normal [facility] Comment on above: Order Comment: Speci men Type: BLOOD SPECIMENOrdering Facility: [facility] Address: [address] [place] [address] Performed By: #### 5 7021-8 ####[facility] LABIA [id number] [place] [address] [place] Eosinophils (Bld) [#/Vol] 0.14 10*3/uL Normal <0.46 [facility] Comment on above: Order Comment: Speci men Type: BLOOD SPECIMENOrdering Facility: [facility] Address: [address] [place] [address] Performed By: #### 5 7021-8 ####[facility] LABIA [id number] [place] [address] [place] Eosinophils/100 WBC (Bld) 1.8 % Normal [facility] Comment on above: Order Comment: Speci men Type: BLOOD SPECIMENOrdering Facility: [facility] Address: [address] [place] [address] Performed By: #### 5 7021-8 ####[facility] LABIA [id number] [place] [address] [place] Erythrocyte distribution width (RBC) [Ratio] 19.7 % High 11.5-15.0 [facility] Comment on above: Order Comment: Speci men Type: BLOOD SPECIMENOrdering Facility: [facility] Address: [address] [place] [address] Performed By: #### 5 7021-8 ####[facility] LABIA [id number] [place] [address] [place] Hematocrit (Bld) [Volume fraction] 39.7 % Normal 39.0-51.0 [facility] Comment on above: Order Comment: Speci men Type: BLOOD SPECIMENOrdering Facility: [facility] Address: [address] [place] [address] Performed By: #### 5 7021-8 ####[facility] LABCLIA [id number] [place] [address] [place] Hemoglobin (Bld) [Mass/Vol] 12.5 g/dL Low 13.0-17.0 [facility] Comment on above: Order Comment: Speci men Type: BLOOD SPECIMENOrdering Facility: [facility] Address: [address] [place] [address] Performed By: #### 5 7021-8 ####[facility] LABCLIA [id number] [place] [address] [place] Immature granulocytes (Bld) [#/Vol] 0.03 10*3/uL Normal <0.10 [facility] Comment on above: Order Comment: Speci men Type: BLOOD SPECIMENOrdering Facility: [facility] Address: [address] [place] [address] Performed By: #### 5 7021-8 ####[facility] LABIA [id number] [place] [address] [place] Immature granulocytes/100 WBC (Bld) 0.4 % Normal [facility] Comment on above: Order Comment: Speci men Type: BLOOD SPECIMENOrdering Facility: [facility] Address: [address] [place] [address] Performed By: #### 5 7021-8 ####[facility] LABIA [id number] [place] [address] [place] Lymphocytes (Bld) [#/Vol] 2.03 10*3/uL Normal 1.00-4.00 [facility] Comment on above: Order Comment: Speci men Type: BLOOD SPECIMENOrdering Facility: [facility] Address: [address] [place] [address] Performed By: #### 5 7021-8 ####[facility] LABIA [id number] [id number] [address] [place] Lymphocytes/100 WBC (Bld) 26.0 % Normal [facility] Comment on above: Order Comment: Speci men Type: BLOOD SPECIMENOrdering Facility: [facility] Address: [address] [place] [address] Performed By: #### 5 7021-8 ####[facility] LABIA [id number] [place] [address] [place] MCH (RBC) [Entitic mass] 25.4 pg Low 26.0-34.0 [facility] Comment on above: Order Comment: Speci men Type: BLOOD SPECIMENOrdering Facility: [facility] Address: [address] [place] [address] Performed By: #### 5 7021-8 ####[facility] [id number] [place] [address] [place] MCHC (RBC) [Mass/Vol] 31.5 g/dL Normal 30.5-36.0 [facility] Comment on above: Order Comment: Speci men Type: BLOOD SPECIMENOrdering Facility: [facility] Address: [address] [place] [address] Performed By: #### 5 7021-8 ####[facility] LABIA [id number] [place] [address] [place] MCV (RBC) [Entitic vol] 80.5 fL Normal 80.0-100.0 [facility] Comment on above: Order Comment: Speci men Type: BLOOD SPECIMENOrdering Facility: [facility] Address: [address] [place] [address] Performed By: #### 5 7021-8 ####[facility] LABIA [id number] [place] [address] [place] Monocytes (Bld) [#/Vol] 0.36 10*3/uL Normal <0.87 [facility] Comment on above: Order Comment: Speci men Type: BLOOD SPECIMENOrdering Facility: [facility] Address: [address] [place] [address] Performed By: #### 5 7021-8 ####[facility] LABCLIA [id number] [place] [address] [place] Monocytes/100 WBC (Bld) 4.6 % Normal [facility] Comment on above: Order Comment: Speci men Type: BLOOD SPECIMENOrdering Facility: [facility] Address: [address] [place] [address] Performed By: #### 5 7021-8 ####[facility] LABCLIA [id number] [place] [address] [place] Neutrophils (Bld) [#/Vol] 5.17 10*3/uL Normal 1.45-7.50 [facility] Comment on above: Order Comment: Speci men Type: BLOOD SPECIMENOrdering Facility: [facility] Address: [address] [place] [address] Performed By: #### 5 7021-8 ####[facility] LABCLIA [id number] [place] [address] [place] Neutrophils/100 WBC (Bld) 66.3 % Normal [facility] Comment on above: Order Comment: Speci men Type: BLOOD SPECIMENOrdering Facility: [facility] Address: [address] [place] [address] Performed By: #### 5 7021-8 ####[facility] LABCLIA [id number] [place] [address] [place] Nucleated RBC (Bld) [#/Vol] 10*3/uL Normal <0.01 [facility] Comment on above: Order Comment: Speci men Type: BLOOD SPECIMENOrdering Facility: [facility] Address: [address] [place] [address] Performed By: #### 5 7021-8 ####[facility] LABCLIA [id number] [place] [address] [place] Nucleated RBC/100 WBC (Bld) [Ratio] 0.0 /[address] [facility] Comment on above: Order Comment: Speci men Type: BLOOD SPECIMENOrdering Facility: [facility] Address: [address] [place] [address] Performed By: #### 5 7021-8 ####[facility] LABCLIA [id number] [place] [address] [place] Platelet mean volume (Bld) [Entitic vol] 9.3 fL Normal 9.0-12.7 [facility] Comment on above: Order Comment: Speci men Type: BLOOD SPECIMENOrdering Facility: [facility] Address: [address] [place] [address] Performed By: #### 5 7021-8 ####[facility] LABCLIA [id number] [place] [address] [place] Platelets (Bld) [#/Vol] 381 10*3/uL Normal 150-400 [facility] Comment on above: Order Comment: Speci men Type: BLOOD SPECIMENOrdering Facility: [facility] Address: [address] [place] [address] Performed By: #### 5 7021-8 ####[facility] LABCLIA [id number] [place] [address] [place] RBC (Bld) [#/Vol] 4.93 10*6/uL Normal 4.20-6.00 [facility] Comment on above: Order Comment: Speci men Type: BLOOD SPECIMENOrdering Facility: [facility] Address: [address] [place] [address] Performed By: #### 5 7021-8 ####[facility] LABCLIA [id number] [place] [address] [place] WBC (Bld) [#/Vol] 7.80 10*3/uL Normal 3.70-11.00 [facility] Comment on above: Order Comment: Speci men Type: BLOOD SPECIMENOrdering Facility: [facility] Address: [address] [place] [address] Performed By: #### 5 7021-8 ####[facility] LABCLIA [id number] [place] [address] [place] Comprehensive metabolic 2000 panelon 01-04-2024 Albumin [Mass/Vol] 4.5 g/dL Normal 3.9-4.9 [facility] Comment on above: Order Comment: Speci men Type: BLOOD SPECIMENOrdering Facility: [facility] Address: [address] [place] [address] Performed By: #### 2 4323-8 ####[facility] LABCLIA [id number] [place] [address] [place] ALP [Catalytic activity/Vol] 117 U/L High 38-113 [facility] Comment on above: Order Comment: Speci men Type: BLOOD SPECIMENOrdering Facility: [facility] Address: [address] [place] [address] Performed By: #### 2 4323-8 ####[facility] LABCLIA [id number] [place] [address] [place] ALT [Catalytic activity/Vol] 31 U/L Normal 10-54 [facility] Comment on above: Order Comment: Speci men Type: BLOOD SPECIMENOrdering Facility: [facility] Address: [address] [place] [address] Performed By: #### 2 4323-8 ####[facility] LABCLIA [id number] [place] [id number] [place] Anion gap [Moles/Vol] 13 mmol/L Normal 8-15 [facility] Comment on above: Order Comment: Speci men Type: BLOOD SPECIMENOrdering Facility: [facility] Address: [address] [place] [address] Performed By: #### 2 4323-8 ####[facility] LABCLIA [id number] [place] [address] [place] AST [Catalytic activity/Vol] 26 U/L Normal 14-40 [facility] Comment on above: Order Comment: Speci men Type: BLOOD SPECIMENOrdering Facility: [facility] Address: [address] [place] [address] Performed By: #### 2 4323-8 ####[facility] LABCLIA [id number] [place] [address] [place] Bilirubin [Mass/Vol] 0.3 mg/dL Normal 0.2-1.3 [facility] Comment on above: Order Comment: Speci men Type: BLOOD SPECIMENOrdering Facility: [facility] Address: [address] [place] [address] Performed By: #### 2 4323-8 ####[facility] LABCLIA [id number] [place] [address] [place] Calcium [Mass/Vol] 9.5 mg/dL Normal 8.5-10.2 [facility] Comment on above: Order Comment: Speci men Type: BLOOD SPECIMENOrdering Facility: [facility] Address: [address] [place] [address] Performed By: #### 2 4323-8 ####[facility] LABCLIA [id number] [place] [address] [place] Chloride [Moles/Vol] 103 mmol/L Normal 98-107 [facility] Comment on above: Order Comment: Speci men Type: BLOOD SPECIMENOrdering Facility: [facility] Address: [address] [place] [address] Performed By: #### 2 4323-8 ####[facility] LABCLIA [id number] [place] [address] [place] CO2 [Moles/Vol] 23 mmol/L Normal 22-30 [facility] Comment on above: Order Comment: Speci men Type: BLOOD SPECIMENOrdering Facility: [facility] Address: [address] [place] [address] Performed By: #### 2 4323-8 ####[facility] LABIA [id number] [address] [place] Creatinine [Mass/Vol] 1.02 mg/dL Normal 0.73-1.22 [facility] Comment on above: Order Comment: Speci men Type: BLOOD SPECIMENOrdering Facility: [facility] Address: [address] [place] [address] Performed By: #### 2 4323-8 ####[facility] LABIA [id number] [place] [address] [place] Creatinine and Glomerular filtration rate.predicted panel (S/P/Bld) 83 mL/min/1.73m??? Normal >=60 [facility] Comment on above: Order Comment: Bebai men Type: BLOOD SPECIMENOrdering Facility: [facility] Address: [address] [place] [address] Result Comment: Chirag mated Glomerular Filtration Rate (eGFR) is calculated using the 2020 CKD-EPI creatinine equation. This equation utilizes serum creatinine, sex, and age as parameters. The creatinine assay has traceable calibration to isotope dilution-mass spectrometry. Refer to KDIGO guidelines for clinical interpretation. In patients with unstable renal function, e.g. those with acute kidney injury, the eGFR may not accurately reflect actual GFR. Performed By: #### 2 4323-8 ####[facility] LABIA [id number] [place] [address] [place] Glucose [Mass/Vol] 98 mg/dL Normal 74-99 [facility] Comment on above: Order Comment: Speci men Type: BLOOD SPECIMENOrdering Facility: [facility] Address: [address] [place] [address] Result Comment: The [place] [employer] Association (ADA) provides guidance for cutoff values for fasting glucose and random glucose. The ADA defines fasting as no caloric intake for at least 8 hours. Fasting plasma glucose results between 100 to 125 mg/dL indicate increased risk for diabetes (prediabetes). Fasting plasma glucose results greater than or equal to 126 mg/dL meet the criteria for diagnosis of diabetes. In the absence of unequivocal hyperglycemia, results should be confirmed by repeat testing. In a patient with classic symptoms of hyperglycemia or hyperglycemic crisis, random plasma glucose results greater than or equal to 200 mg/dL meet the criteria for diagnosis of diabetes. Reference: Standards of Medical Care in Diabetes 2016, [place] [employer]. Diabetes Care. 2016.39(Suppl 1). Performed By: #### 2 4323-8 ####[facility] LABCLIA [id number] [place] [address] [place] Potassium [Moles/Vol] 3.9 mmol/L Normal 3.7-5.1 [facility] Comment on above: Order Comment: Ariana rodriguez Type: BLOOD SPECIMENOrdering Facility: [facility] Address: [address] [place] [address] Performed By: #### 2 4323-8 ####[facility] LABIA [id number] [place] [address] [place] Protein [Mass/Vol] 7.7 g/dL Normal 6.3-8.0 [facility] Comment on above: Order Comment: Ariana rodriguez Type: BLOOD SPECIMENOrdering Facility: [facility] Address: [address] [place] [address] Performed By: #### 2 4323-8 ####[facility] LABCLIA [id number] [place] [address] [place] Sodium [Moles/Vol] 139 mmol/L Normal 136-144 [facility] Comment on above: Order Comment: Bebai men Type: BLOOD SPECIMENOrdering Facility: [facility] Address: [address] [place] [address] Performed By: #### 2 4323-8 ####[facility] LABCLIA [id number] [place] [address] [place] Urea nitrogen [Mass/Vol] 16 mg/dL Normal 9-24 [facility] Comment on above: Order Comment: Speci men Type: BLOOD SPECIMENOrdering Facility: [facility] Address: [address] [place] [address] Performed By: #### 2 4323-8 ####[facility] LABCLIA [id number] [place] [address] [place] Ferritin SerPl-mCncon 2023 Ferritin [Mass/Vol] 25.3 ng/mL Low 30.3-565.7 [facility] Comment on above: Order Comment: Speci men Type: BLOOD SPECIMENOrdering Facility: [facility] Address: [address] [place] [address] Performed By: #### 2 276-4 ####[facility] LABCLIA [id number] [place] [address] [place] CBC W Auto Differential pane l (Bld)on 12-13-2023 Basophils (Bld) [#/Vol] 0.06 10*3/uL Normal <0.11 [facility] Comment on above: Order Comment: Speci men Type: BLOOD SPECIMENOrdering Facility: [facility] Address: [address] [place] [address] Performed By: #### 5 7021-8 ####[facility] [id number] [place] [address] [place] Basophils/100 WBC (Bld) 0.8 % Normal [facility] Comment on above: Order Comment: Speci men Type: BLOOD SPECIMENOrdering Facility: [facility] Address: [address] [place] [address] Performed By: #### 5 7021-8 ####[facility]ENTERLIA [id number] [place] [address] [place] Differential cell count method Nom (Bld) Auto Normal [facility] Comment on above: Order Comment: Speci men Type: BLOOD SPECIMENOrdering Facility: [facility] Address: [address] [place] [address] Performed By: #### 5 7021-8 ####[facility] [id number] [place] [address] [place] Eosinophils (Bld) [#/Vol] 0.19 10*3/uL Normal <0.46 [facility] Comment on above: Order Comment: Speci men Type: BLOOD SPECIMENOrdering Facility: [facility] Address: [address] [place] [address] Performed By: #### 5 7021-8 ####[facility] [id number] [place] [address] [place] Eosinophils/100 WBC (Bld) 2.4 %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 Lung Disease: Asymptomatic (no signs or symptoms of lung disease) * Number of Pack Years: 39 * Current smoker (=0) or Number of Years since Quit: 0 * Ordering provider and NPI: BRIANA BOB [id number] * Interpreting radiologist and NPI: Vladislav [id number] Exam acquisition parameters: * Exam Date: 10/11/2023 11:24 AM * Site: [facility] * * CT System Physicist Astrophysics: LeanKit * CT System Model: [employer] * Tube Current-Time (mA-sec): 32.5 * Peak Voltage (kV): 120V * Scan Time (sec): 5.29 * Scan Volume (z-length, cm): 32.40 * Pitch: 0.984 * Slice Thickness (mm): 1.25 * CT Dose-Length Product: 114 mGy*cm * CT Dose Index: 2.88mGy * CT Dose Reduction Method: Iterative recon and mAs-kVp adjusted using patient size-age COMPARISON: Prior lung screen dated 03/09/2023 RESULT: Are nodules present? Yes, 1-5 nodules Lung nodule comments: 3 mm right upper lobe nodule (84) unchanged. 13 mm part solid nodular opacity posterior right upper lobe (102) new from prior. Other findings: Aortic root calcifications. Mild coronary calcifications. Mild degenerative changes of the thoracic spine. Bronchial thickening and mild upper lobe predominant emphysema. Right middle lobe and lingular peribronchial opacity likely atelectasis. DIVISION OF RADIOLOGY Provider, [facility] - 10/11/2023 * * *Final Report* * * DATE OF EXAM: Oct 11 2023 11:24AM [facility]62 - CT LUNG SCREEN WO IVCON / PROCEDURE REASON: multiple diagnoses * * * * Physician Interpretation * * * * EXAMINATION: CHEST CT WITHOUT CONTRAST (LOW-DOSE CT LUNG CANCER SCREENING PROTOCOL) CLINICAL HISTORY: Lung cancer LDCT screening ? absence of signs or symptoms of lung cancer. Nicotine dependence (cigarettes). Subsequent (annual) Technique: Spiral CT acquisition of the chest from the thoracic inlet to the upper abdomen without contrast. MQ: CTLCS_6 Patient characteristics: * Icxm-qk-Eeqty: 1960; Age at exam: 62 years * Gender: Male * Lung Disease: Asymptomatic (no signs or symptoms of lung disease) * Number of Pack Years: 39 * Current smoker (=0) or Number of Years since Quit: 0 * Ordering provider and NPI: BRIANA BOB [id number] * Interpreting radiologist and NPI: Vladislav [id number] Exam acquisition parameters: * Exam Date: 10/11/2023 11:24 AM * Site: [facility] * * CT System Physicist Astrophysics: LeanKit * CT System Model: [employer]oo * Tube Current-Time (mA-sec): 32.5 * Peak Voltage (kV): 120V * Scan Time (sec): 5.29 * Scan Volume (z-length, cm): 32.40 * Pitch: 0.984 * Slice Thickness (mm): 1.25 * CT Dose-Length Product: 114 mGy*cm * CT Dose Index: 2.88mGy * CT Dose Reduction Method: Iterative recon and mAs-kVp adjusted using patient size-age COMPARISON: Prior lung screen dated 03/09/2023 RESULT: Are nodules present? Yes, 1-5 nodules Lung nodule comments: 3 mm right upper lobe nodule (84) unchanged. 13 mm part solid nodular opacity posterior right upper lobe (102) new from prior. Other findings: Aortic root calcifications. Mild coronary calcifications. Mild degenerative changes of the thoracic spine. Bronchial thickening and mild upper lobe predominant emphysema. Right middle lobe and lingular peribronchial opacity likely atelectasis. IMPRESSION IMPRESSION: LungRADS category: 4B LungRADS modifier: None LungRADS 0 reason: n/a Recommendations: Chest CT with or without contrast, PET/CT and/or tissue sampling depending on the probability of malignancy and comorbidities. PET/CT may be used when there is a >= 8 mm solid component. Reference: [place] [employer]. Lung CT Screening Reporting and Data System (Lung-RADS). Available at: http://www.acr.org/Quality- Safety/Resources/LungRADS Bartacker: ANNALISE Transcribe Date/Time: Oct 11 2023 2:58P Dictated by : HÉCTOR DUGGAN MD This examination was interpreted and the report reviewed and electronically signed by: HÉCTOR DUGGAN MD on Oct 11 2023 3:05PM EST [facility] Radiology Study observation (narrative) [facility] CT Chest for screening WO co ntrastOrdered By: Ccf Provider on 10-11-2023 [facility] Basic metabolic 2000 panelOr dered By: Gila Sesay on 08-31-2023 Anion gap [Moles/Vol] 7 mmol/L Low 9 - 18 mmol/L [facility] Calcium [Mass/Vol] 9.4 mg/dL 8.5 - 10. 2 mg/dL [facility] Chloride [Moles/Vol] 101 mmol/L 97 - 10 5 mmol/L [facility] CO2 [Moles/Vol] 26 mmol/L 22 - 30 mmol/L [facility] Creatinine [Mass/Vol] 0.89 mg/dL 0.73 - 1.22 mg/dL [facility] GFR/1.73 sq M.predicted among non-blacks MDRD (S/P/Bld) [Vol rate/Area] 97 mL/min/{1.73_m2} - PINF [facility] Comment on above: Estimated Glomerular Filtration Rate (eGFR) is calculated using the 2020 CKD-EPI creatinine equation. This equation utilizes serum creatinine, sex, and age as parameters. The creatinine assay has traceable calibration to isotope dilution-mass spectrometry. Refer to KDIGO guidelines for clinical interpretation. In patients with unstable renal function, e.g. those with acute kidney injury, the eGFR may not accurately reflect actual GFR. Glucose [Mass/Vol] 113 mg/dL High 74 - 99 mg/dL [facility] Comment on above: The [place] [employer] (ADA) provides guidance for cutoff values for fasting glucose and random glucose. The ADA defines fasting as no caloric intake for at least 8 hours. Fasting plasma glucose results between 100 to 125 mg/dL indicate increased risk for diabetes (prediabetes). Fasting plasma glucose results greater than or equal to 126 mg/dL meet the criteria for diagnosis of diabetes. In the absence of unequivocal hyperglycemia, results should be confirmed by repeat testing. In a patient with classic symptoms of hyperglycemia or hyperglycemic crisis, random plasma glucose results greater than or equal to 200 mg/dL meet the criteria for diagnosis of diabetes. Reference: Standards of Medical Care in Diabetes 2016, [place] [employer]. Diabetes Care. 2016.39(Suppl 1). Interpretation and review of laboratory results Abnormal [facility] Potassium [Moles/Vol] 4.3 mmol/L 3.7 - 5.1 mmol/L [facility] Sodium [Moles/Vol] 134 mmol/L Low 136 - 144 mmol/L [facility] Urea nitrogen [Mass/Vol] 23 mg/dL 9 - 24 mg/dL [facility] CBC W Auto Differential pane l (Bld)on 08-31-2023 Basophils (Bld) [#/Vol] 0.12 10*3/uL High [facility] Basophils/100 WBC (Bld) 1.3 % [facility] Differential cell count method Nom (Bld) Auto [facility] Eosinophils (Bld) [#/Vol] 0.22 10*3/uL [facility] Eosinophils/100 WBC (Bld) 2.3 % [facility] Erythrocyte distribution width (RBC) [Ratio] 18.0 % High 11.5 - 15.0 % [facility] Hematocrit (Bld) [Volume fraction] 23.2 % Low 39.0 - 51.0 % [facility] Hemoglobin (Bld) [Mass/Vol] 7.0 g/dL Low 13.0 - 17.0 g/dL [facility] Immature granulocytes (Bld) [#/Vol] 0.05 10*3/uL [facility] Immature granulocytes/100 WBC (Bld) 0.5 % [facility] Interpretation and review of laboratory results Abnormal [facility] Lymphocytes (Bld) [#/Vol] 2.69 10*3/uL [facility] Lymphocytes/100 WBC (Bld) 28.4 % [facility] MCH (RBC) [Entitic mass] 25.2 pg Low 26.0 - 34.0 pg [facility] MCHC (RBC) [Mass/Vol] 30.2 g/dL Low 30.5 - 36.0 g/dL [facility] MCV (RBC) [Entitic vol] 83.5 fL 80.0 - 100.0 fL [facility] Monocytes (Bld) [#/Vol] 0.48 10*3/uL [facility] Monocytes/100 WBC (Bld) 5.1 % [facility] Neutrophils (Bld) [#/Vol] 5.92 10*3/uL [facility] Neutrophils/100 WBC (Bld) 62.4 % [facility] Nucleated RBC (Bld) [#/Vol] [facility] Nucleated RBC/100 WBC (Bld) [Ratio] 0.0 % /100 WBC [facility] Platelet mean volume (Bld) [Entitic vol] 9.0 fL 9.0 - 12.7 fL [facility] Platelets (Bld) [#/Vol] 551 10*3/uL High [facility] RBC (Bld) [#/Vol] 2.78 10*6/uL Low 4.20 - 6.0 0 m/uL [facility] WBC (Bld) [#/Vol] 9.48 10*3/uL [facility] CBC panel Auto (Bld)on 08-24 Erythrocyte distribution width (RBC) [Ratio] 17.7 % High 11.5-15.0 [facility] Comment on above: Order Comment: Speci men Type: BLOOD SPECIMENOrdering Facility: [facility] Address: [address] [place] [address] Performed By: #### 5 8410-2 ####[facility] LABORATORYCLIA [id number] [address] Hematocrit (Bld) [Volume fraction] 25.2 % Low 39.0-51.0 [facility] Comment on above: Order Comment: Speci men Type: BLOOD SPECIMENOrdering Facility: [facility] Address: [address] [place] [address] Performed By: #### 5 8410-2 ####[facility] LABORATORYCLIA [id number] [address] [place] Hemoglobin (Bld) [Mass/Vol] 7.7 g/dL Low 13.0-17.0 [facility] Comment on above: Order Comment: Speci men Type: BLOOD SPECIMENOrdering Facility: [facility] Address: [address] [place] [address] Performed By: #### 5 8410-2 ####[facility] LABORATORYCLIA [id number] [address] [place] MCH (RBC) [Entitic mass] 25.8 pg Low 26.0-34.0 [facility] Comment on above: Order Comment: Speci men Type: BLOOD SPECIMENOrdering Facility: [facility] Address: [address] [place] [address] Performed By: #### 5 8410-2 ####[facility] LABORATORYCLIA [id number] [place] [address] [place] MCHC (RBC) [Mass/Vol] 30.6 g/dL Normal 30.5-36.0 [facility] Comment on above: Order Comment: Speci men Type: BLOOD SPECIMENOrdering Facility: [facility] Address: [address] [place] [address] Performed By: #### 5 8410-2 ####[facility] LABORATORYCLIA [id number] [place] [address] [place] MCV (RBC) [Entitic vol] 84.6 fL Normal 80.0-100.0 [facility] Comment on above: Order Comment: Speci men Type: BLOOD SPECIMENOrdering Facility: [facility] Address: [address] [place] [address] Performed By: #### 5 8410-2 ####[facility] LABORATORYCLIA [id number] [place] [address] [place] Nucleated RBC (Bld) [#/Vol] 10*3/uL Normal <0.01 [facility] Comment on above: Order Comment: Speci men Type: BLOOD SPECIMENOrdering Facility: [facility] Address: [address] [place] [address] Performed By: #### 5 8410-2 ####[facility] LABORATORYCLIA [id number] [place] [address] [place] Platelet mean volume (Bld) [Entitic vol] 9.5 fL Normal 9.0-12.7 [facility] Comment on above: Order Comment: Speci men Type: BLOOD SPECIMENOrdering Facility: [facility] Address: [address] [place] [address] Performed By: #### 5 8410-2 ####[facility] LABORATORYCLIA [id number] [place] [id number] [place] Platelets (Bld) [#/Vol] 480 10*3/uL High 150-400 [facility] Comment on above: Order Comment: Speci men Type: BLOOD SPECIMENOrdering Facility: [facility] Address: [address] [place] [address] Performed By: #### 5 8410-2 ####[facility] LABORATORYCLIA [id number] [place] [id number] [place] RBC (Bld) [#/Vol] 2.98 10*6/uL Low 4.20-6.00 [facility] Comment on above: Order Comment: Speci men Type: BLOOD SPECIMENOrdering Facility: [facility] Address: [address] [place] [address] Performed By: #### 5 8410-2 ####[facility] LABORATORYCLIA [id number] [place] [id number] [place] WBC (Bld) [#/Vol] 7.26 10*3/uL Normal 3.70-11.00 [facility] Comment on above: Order Comment: Speci men Type: BLOOD SPECIMENOrdering Facility: [facility] Address: [address] [place] [address] Performed By: #### 5 8410-2 ####LAPINE LABORATORYCLIA [id number] [place] [id number] [place] CNDSon 08-25-2023 CNDS Normal [facility] Comprehensive metabolic 2000 panelon 08-25-2023 Albumin [Mass/Vol] 4.0 g/dL Normal 3.9-4.9 [facility] Comment on above: Order Comment: Speci men Type: BLOOD SPECIMENOrdering Facility: [facility] Address: [address] [place] [address] Performed By: #### 2 4323-8 ####LAPINE LABORATORYCLIA [id number] [place] [id number] [place] ALP [Catalytic activity/Vol] 91 U/L Normal 38-113 [facility] Comment on above: Order Comment: Speci men Type: BLOOD SPECIMENOrdering Facility: [facility] Address: [address] [place] [address] Performed By: #### 2 4323-8 ####LAPINE LABORATORYCLIA [id number] [place] [id number] [place] ALT [Catalytic activity/Vol] 11 U/L Normal 10-54 [facility] Comment on above: Order Comment: Speci men Type: BLOOD SPECIMENOrdering Facility: [facility] Address: [address] [place] [address] Performed By: #### 2 4323-8 ####[facility] LABORATORYCLIA [id number] [place] [id number] [place] Anion gap [Moles/Vol] 13 mmol/L Normal 9-18 [facility] Comment on above: Order Comment: Speci men Type: BLOOD SPECIMENOrdering Facility: [facility] Address: [address] [place] [address] Performed By: #### 2 4323-8 ####[facility] LABORATORYCLIA [id number] [place] [id number] [place] AST [Catalytic activity/Vol] 22 U/L Normal 14-40 [facility] Comment on above: Order Comment: Speci men Type: BLOOD SPECIMENOrdering Facility: [facility] Address: [address] [place] [address] Performed By: #### 2 4323-8 ####[facility] LABORATORYCLIA [id number] [place] [address] [place] Bilirubin [Mass/Vol] 0.2 mg/dL Normal 0.2-1.3 [facility] Comment on above: Order Comment: Speci men Type: BLOOD SPECIMENOrdering Facility: [facility] Address: [address] [place] [address] Performed By: #### 2 4323-8 ####[facility] LABORATORYCLIA [id number] [place] [id number] [place] Calcium [Mass/Vol] 9.1 mg/dL Normal 8.5-10.2 [facility] Comment on above: Order Comment: Speci men Type: BLOOD SPECIMENOrdering Facility: [facility] Address: [address] [place] [address] Performed By: #### 2 4323-8 ####[facility] LABORATORYCLIA [id number] [place] [id number] [place] Chloride [Moles/Vol] 106 mmol/L High 97-105 [facility] Comment on above: Order Comment: Speci men Type: BLOOD SPECIMENOrdering Facility: [facility] Address: [address] [place] [address] Performed By: #### 2 4323-8 ####LAPINE LABORATORYCLIA [id number] [place] [id number] [place] CO2 [Moles/Vol] 22 mmol/L Normal 22-30 [facility] Comment on above: Order Comment: Speci men Type: BLOOD SPECIMENOrdering Facility: [facility] Address: [address] [place] [address] Performed By: #### 2 4323-8 ####LAPINE LABORATORYCLIA [id number] [place] [id number] [place] Creatinine [Mass/Vol] 1.03 mg/dL Normal 0.73-1.22 [facility] Comment on above: Order Comment: Speci men Type: BLOOD SPECIMENOrdering Facility: [facility] Address: [address] [place] [address] Performed By: #### 2 4323-8 ####LAPINE LABORATORYCLIA [id number] [place] [address] [place] Creatinine and Glomerular filtration rate.predicted panel (S/P/Bld) 83 mL/min/1.73m??? Normal >=60 [facility] Comment on above: Order Comment: Speci men Type: BLOOD SPECIMENOrdering Facility: [facility] Address: [address] [place] [address] Result Comment: Chirag mated Glomerular Filtration Rate (eGFR) is calculated using the 2020 CKD-EPI creatinine equation. This equation utilizes serum creatinine, sex, and age as parameters. The creatinine assay has traceable calibration to isotope dilution-mass spectrometry. Refer to KDIGO guidelines for clinical interpretation. In patients with unstable renal function, e.g. those with acute kidney injury, the eGFR may not accurately reflect actual GFR. Performed By: #### 2 4323-8 ####LAPINE LABORATORYCLIA [id number] [place] [id number] [place] Glucose [Mass/Vol] 93 mg/dL Normal 74-99 [facility] Comment on above: Order Comment: Speci men Type: BLOOD SPECIMENOrdering Facility: [facility] Address: [address] [place] [address] Result Comment: The [place] [employer] (ADA) provides guidance for cutoff values for fasting glucose and random glucose. The ADA defines fasting as no caloric intake for at least 8 hours. Fasting plasma glucose results between 100 to 125 mg/dL indicate increased risk for diabetes (prediabetes).Fasting plasma glucose results greater than or equal to 126 mg/dL meet the criteria for diagnosis of diabetes. In the absence of unequivocal hyperglycemia, results should be confirmed by repeat testing. In a patient with classic symptoms of hyperglycemia or hyperglycemic crisis, random plasma glucose results greater than or equal to 200 mg/dL meet the criteria for diagnosis of diabetes.Reference: Standards of Medical Care in Diabetes 2016, [place] [employer]. Diabetes Care. 2016.39(Suppl 1). Performed By: #### 2 4323-8 ####[facility] LABORATORYCLIA [id number] [place] [address] [place] Potassium [Moles/Vol] 4.3 mmol/L Normal 3.7-5.1 [facility] Comment on above: Order Comment: Speci men Type: BLOOD SPECIMENOrdering Facility: [facility] Address: [address] [place] [address] Performed By: #### 2 4323-8 ####LAPINE LABORATORYCLIA [id number] [place] [id number] [place] Protein [Mass/Vol] 6.8 g/dL Normal 6.3-8.0 [facility] Comment on above: Order Comment: Speci men Type: BLOOD SPECIMENOrdering Facility: [facility] Address: [address] [place] [address] Performed By: #### 2 4323-8 ####LAPINE LABORATORYCLIA [id number] [place] [id number] [place] Sodium [Moles/Vol] 141 mmol/L Normal 136-144 [facility] Comment on above: Order Comment: Speci men Type: BLOOD SPECIMENOrdering Facility: [facility] Address: [address] [place] [address] Performed By: #### 2 4323-8 ####LAPINE LABORATORYCLIA [id number] [place] [address] [place] Urea nitrogen [Mass/Vol] 12 mg/dL Normal 01-24 [facility] Comment on above: Order Comment: Speci men Type: BLOOD SPECIMENOrdering Facility: [facility] Address: [address] [place] [address] Performed By: #### 2 4323-8 ####JAKE LABORATORYCLIA [id number] [place] [address] [place] PVR ANK PRESS KATIE VAS LABon 08-25-2023 PVR ANK PRESS KATIE VAS LAB Normal [facility] US LEG ARTERIAL PERIPH UNL V LABon 08-25-2023 US LEG ARTERIAL PERIPH UNL VAS LAB Normal [facility] CASE MANAGEMon 08-24-2023 CASE MANAGEM Normal [facility] CBC W Auto Differential pane l (Bld)on 08-24-2023 Basophils (Bld) [#/Vol] 0.06 10*3/uL Normal <0.11 [facility] Comment on above: Order Comment: Speci men Type: BLOOD SPECIMENOrdering Facility: [facility] Address: [address] [place] [address] Performed By: #### 5 7021-8 ####JAKE LABORATORYCLIA [id number] [place] [address] [place] Basophils/100 WBC (Bld) 0.9 % Normal [facility] Comment on above: Order Comment: Speci men Type: BLOOD SPECIMENOrdering Facility: [facility] Address: [address] [place] [address] Performed By: #### 5 7021-8 ####JAKE LABORATORYCLIA [id number] [place] [address] [place] Differential cell count method Nom (Bld) Auto Normal [facility] Comment on above: Order Comment: Speci men Type: BLOOD SPECIMENOrdering Facility: [facility] Address: [address] [place] [address] Performed By: #### 5 7021-8 ####JAKE LABORATORYCLIA [id number] [place] [address] [place] Eosinophils (Bld) [#/Vol] 0.25 10*3/uL Normal <0.46 [facility] Comment on above: Order Comment: Speci men Type: BLOOD SPECIMENOrdering Facility: [facility] Address: [address] [place] [address] Performed By: #### 5 7021-8 ####JAKE LABORATORYCLIA [id number] [place] [id number] [facility] Eosinophils/100 WBC (Bld) 3.6 % Normal [facility] Comment on above: Order Comment: Speci men Type: BLOOD SPECIMENOrdering Facility: [facility] Address: [address] [place] [address] Performed By: #### 5 7021-8 ####[facility] LABORATORYCLIA [id number] [address] [place] Erythrocyte distribution width (RBC) [Ratio] 17.5 % High 11.5-15.0 [facility] Comment on above: Order Comment: Speci men Type: BLOOD SPECIMENOrdering Facility: [facility] Address: [address] [place] [address] Performed By: #### 5 7021-8 ####JAKE LABORATORYCLIA [id number] [address] [place] Hematocrit (Bld) [Volume fraction] 26.5 % Low 39.0-51.0 [facility] Comment on above: Order Comment: Speci men Type: BLOOD SPECIMENOrdering Facility: [facility] Address: [address] [place] [address] Performed By: #### 5 7021-8 ####[facility] LABORATORYCLIA [id number] [place] [id number] [place] Hemoglobin (Bld) [Mass/Vol] 8.1 g/dL Low 13.0-17.0 [facility] Comment on above: Order Comment: Speci men Type: BLOOD SPECIMENOrdering Facility: [facility] Address: [address] [place] [address] Performed By: #### 5 7021-8 ####JAKE LABORATORYCLIA [id number] [place] [address] [place] Immature granulocytes (Bld) [#/Vol] 0.03 10*3/uL Normal <0.10 [facility] Comment on above: Order Comment: Speci men Type: BLOOD SPECIMENOrdering Facility: [facility] Address: [address] [place] [address] Performed By: #### 5 7021-8 ####[facility] LABORATORYCLIA [id number] [place] [address] [place] Immature granulocytes/100 WBC (Bld) 0.4 % Normal [facility] Comment on above: Order Comment: Speci men Type: BLOOD SPECIMENOrdering Facility: [facility] Address: [address] [place] [address] Performed By: #### 5 7021-8 ####[facility] LABORATORYCLIA [id number] [place] [address] [place] Lymphocytes (Bld) [#/Vol] 2.19 10*3/uL Normal 1.00-4.00 [facility] Comment on above: Order Comment: Speci men Type: BLOOD SPECIMENOrdering Facility: [facility] Address: [address] [place] [address] Performed By: #### 5 7021-8 ####[facility] LABORATORYCLIA [id number] [address] Lymphocytes/100 WBC (Bld) 31.5 % Normal [facility] Comment on above: Order Comment: Speci men Type: BLOOD SPECIMENOrdering Facility: [facility] Address: [address] [place] [address] Performed By: #### 5 7021-8 ####[facility] LABORATORYCLIA [id number] [place] [id number] [place] MCH (RBC) [Entitic mass] 25.9 pg Low 26.0-34.0 [facility] Comment on above: Order Comment: Speci men Type: BLOOD SPECIMENOrdering Facility: [facility] Address: [address] [place] [address] Performed By: #### 5 7021-8 ####[facility] LABORATORYCLIA [id number] [place] [id number] [place] MCHC (RBC) [Mass/Vol] 30.6 g/dL Normal 30.5-36.0 [facility] Comment on above: Order Comment: Speci men Type: BLOOD SPECIMENOrdering Facility: [facility] Address: [address] [place] [address] Performed By: #### 5 7021-8 ####[facility] LABORATORYCLIA [id number] [place] [id number] [place] MCV (RBC) [Entitic vol] 84.7 fL Normal 80.0-100.0 [facility] Comment on above: Order Comment: Speci men Type: BLOOD SPECIMENOrdering Facility: [facility] Address: [address] [place] [address] Performed By: #### 5 7021-8 ####[facility] LABORATORYCLIA [id number] [place] [address] [place] Monocytes (Bld) [#/Vol] 0.39 10*3/uL Normal <0.87 [facility] Comment on above: Order Comment: Speci men Type: BLOOD SPECIMENOrdering Facility: [facility] Address: [address] [place] [address] Performed By: #### 5 7021-8 ####[facility] LABORATORYCLIA [id number] [place] [id number] [place] Monocytes/100 WBC (Bld) 5.6 % Normal [facility] Comment on above: Order Comment: Speci men Type: BLOOD SPECIMENOrdering Facility: [facility] Address: [address] [place] [address] Performed By: #### 5 7021-8 ####[facility] LABORATORYCLIA [id number] [place] [address] [place] Neutrophils (Bld) [#/Vol] 4.03 10*3/uL Normal 1.45-7.50 [facility] Comment on above: Order Comment: Speci men Type: BLOOD SPECIMENOrdering Facility: [facility] Address: [address] [place] [address] Performed By: #### 5 7021-8 ####[facility] LABORATORYCLIA [id number] [place] [id number] [place] Neutrophils/100 WBC (Bld) 58.0 % Normal [facility] Comment on above: Order Comment: Speci men Type: BLOOD SPECIMENOrdering Facility: [facility] Address: [address] [place] [address] Performed By: #### 5 7021-8 ####[facility] LABORATORYCLIA [id number] [place] [address] [place] Nucleated RBC (Bld) [#/Vol] 10*3/uL Normal <0.01 [facility] Comment on above: Order Comment: Speci men Type: BLOOD SPECIMENOrdering Facility: [facility] Address: [address] [place] [address] Performed By: #### 5 7021-8 ####[facility] LABORATORYCLIA [id number] [place] [address] [place] Nucleated RBC/100 WBC (Bld) [Ratio] 0.0 /100 WBC Normal [facility] Comment on above: Order Comment: Speci men Type: BLOOD SPECIMENOrdering Facility: [facility] Address: [address] [place] [address] Performed By: #### 5 7021-8 ####[facility] LABORATORYCLIA [id number] [place] [id number] [place] Platelet mean volume (Bld) [Entitic vol] 9.1 fL Normal 9.0-12.7 [facility] Comment on above: Order Comment: Speci men Type: BLOOD SPECIMENOrdering Facility: [facility] Address: [address] [place] [address] Performed By: #### 5 7021-8 ####[facility] LABORATORYCLIA [id number] [place] [id number] [place] Platelets (Bld) [#/Vol] 440 10*3/uL High 150-400 [facility] Comment on above: Order Comment: Speci men Type: BLOOD SPECIMENOrdering Facility: [facility] Address: [address] [place] [address] Performed By: #### 5 7021-8 ####JAKE LABORATORYCLIA [id number] [place] [id number] [place] [facility] RBC (Bld) [#/Vol] 3.13 10*6/uL Low 4.20-6.00 [facility] Comment on above: Order Comment: Speci men Type: BLOOD SPECIMENOrdering Facility: [facility] Address: [address] [place] [address] Performed By: #### 5 7021-8 ####JAKE LABORATORYCLIA [id number] [place] [id number] [place] WBC (Bld) [#/Vol] 6.95 10*3/uL Normal 3.70-11.00 [facility] Comment on above: Order Comment: Speci men Type: BLOOD SPECIMENOrdering Facility: [facility] Address: [address] [place] [address] Performed By: #### 5 7021-8 ####JAKE LABORATORYCLIA [id number] [address] [place] CBC panel Auto (Bld)on 08-23 Erythrocyte distribution width (RBC) [Ratio] 17.5 % High 11.5-15.0 [facility] Comment on above: Order Comment: Speci men Type: BLOOD SPECIMENOrdering Facility: [facility] Address: [address] [place] [address] Performed By: #### 5 8410-2 ####JAKE LABORATORYCLIA [id number] [place] [id number] [facility] Hematocrit (Bld) [Volume fraction] 26.0 % Low 39.0-51.0 [facility] Comment on above: Order Comment: Speci men Type: BLOOD SPECIMENOrdering Facility: [facility] Address: [address] [place] [address] Performed By: #### 5 8410-2 ####JAKE LABORATORYCLIA [id number] [address] [place] Hemoglobin (Bld) [Mass/Vol] 7.8 g/dL Low 13.0-17.0 [facility] Comment on above: Order Comment: Speci men Type: BLOOD SPECIMENOrdering Facility: [facility] Address: [address] [place] [address] Performed By: #### 5 8410-2 ####[facility] LABORATORYCLIA [id number] [place] [address] [place] MCH (RBC) [Entitic mass] 25.4 pg Low 26.0-34.0 [facility] Comment on above: Order Comment: Speci men Type: BLOOD SPECIMENOrdering Facility: [facility] Address: [address] [place] [address] Performed By: #### 5 8410-2 ####[facility] LABORATORYCLIA [id number] [address] [place] MCHC (RBC) [Mass/Vol] 30.0 g/dL Low 30.5-36.0 [facility] Comment on above: Order Comment: Speci men Type: BLOOD SPECIMENOrdering Facility: [facility] Address: [address] [place] [address] Performed By: #### 5 8410-2 ####[facility] LABORATORYCLIA [id number] [address] [place] MCV (RBC) [Entitic vol] 84.7 fL Normal 80.0-100.0 [facility] Comment on above: Order Comment: Speci men Type: BLOOD SPECIMENOrdering Facility: [facility] Address: [address] [place] [address] Performed By: #### 5 8410-2 ####[facility] LABORATORYCLIA [id number] [address] [place] Nucleated RBC (Bld) [#/Vol] 10*3/uL Normal <0.01 [facility] Comment on above: Order Comment: Speci men Type: BLOOD SPECIMENOrdering Facility: [facility] Address: [address] [place] [address] Performed By: #### 5 8410-2 ####LAPINE LABORATORYCLIA [id number] [place] [id number] [place] Platelet mean volume (Bld) [Entitic vol] 9.4 fL Normal 9.0-12.7 [facility] Comment on above: Order Comment: Speci men Type: BLOOD SPECIMENOrdering Facility: [facility] Address: [address] [place] [address] Performed By: #### 5 8410-2 ####LAPINE LABORATORYCLIA [id number] [place] [id number] [place] Platelets (Bld) [#/Vol] 465 10*3/uL High 150-400 [facility] Comment on above: Order Comment: Speci men Type: BLOOD SPECIMENOrdering Facility: [facility] Address: [address] [place] [address] Performed By: #### 5 8410-2 ####LAPINE LABORATORYCLIA [id number] [place] [id number] [place] RBC (Bld) [#/Vol] 3.07 10*6/uL Low 4.20-6.00 [facility] Comment on above: Order Comment: Speci men Type: BLOOD SPECIMENOrdering Facility: [facility] Address: [address] [place] [address] Performed By: #### 5 8410-2 ####LAPINE LABORATORYCLIA [id number] [place] [id number] [place] WBC (Bld) [#/Vol] 7.24 10*3/uL Normal 3.70-11.00 [facility] Comment on above: Order Comment: Speci men Type: BLOOD SPECIMENOrdering Facility: [facility] Address: [address] [place] [address] Performed By: #### 5 8410-2 ####LAPINE LABORATORYCLIA [id number] [place] [id number] [facility] [place] CONSULT PROGon 08-24-2023 CONSULT PROG Normal [facility] CONSULT PROG Normal [facility] Comprehensive metabolic 2000 panelon 08-24-2023 Albumin [Mass/Vol] 4.1 g/dL Normal 3.9-4.9 [facility] Comment on above: Order Comment: Speci men Type: BLOOD SPECIMENOrdering Facility: [facility] Address: [address] [place] [address] Performed By: #### 2 4323-8 ####LAPINE LABORATORYCLIA [id number] [place] [id number] [place] ALP [Catalytic activity/Vol] 98 U/L Normal 38-113 [facility] Comment on above: Order Comment: Speci men Type: BLOOD SPECIMENOrdering Facility: [facility] Address: [address] [place] [address] Performed By: #### 2 4323-8 ####LAPINE LABORATORYCLIA [id number] [place] [address] [place] ALT [Catalytic activity/Vol] 12 U/L Normal 10-54 [facility] Comment on above: Order Comment: Speci men Type: BLOOD SPECIMENOrdering Facility: [facility] Address: [address] [place] [address] Performed By: #### 2 4323-8 ####LAPINE LABORATORYCLIA [id number] [place] [address] [place] Anion gap [Moles/Vol] 11 mmol/L Normal 9-18 [facility] Comment on above: Order Comment: Speci men Type: BLOOD SPECIMENOrdering Facility: [facility] Address: [address] [place] [address] Performed By: #### 2 4323-8 ####LAPINE LABORATORYCLIA [id number] [place] [id number] [place] AST [Catalytic activity/Vol] 14 U/L Normal 14-40 [facility] Comment on above: Order Comment: Speci men Type: BLOOD SPECIMENOrdering Facility: [facility] Address: [address] [place] [address] Performed By: #### 2 4323-8 ####LAPINE LABORATORYCLIA [id number] [place] [id number] [place] Bilirubin [Mass/Vol] 0.4 mg/dL Normal 0.2-1.3 [facility] Comment on above: Order Comment: Speci men Type: BLOOD SPECIMENOrdering Facility: [facility] Address: [address] [place] [address] Performed By: #### 2 4323-8 ####LAPINE LABORATORYCLIA [id number] [place] [id number] [place] Calcium [Mass/Vol] 9.0 mg/dL Normal 8.5-10.2 [facility] Comment on above: Order Comment: Speci men Type: BLOOD SPECIMENOrdering Facility: [facility] Address: [address] [place] [address] Performed By: #### 2 4323-8 ####LAPINE LABORATORYCLIA [id number] [place] [address] [place] Chloride [Moles/Vol] 102 mmol/L Normal 97-105 [facility] Comment on above: Order Comment: Speci men Type: BLOOD SPECIMENOrdering Facility: [facility] Address: [address] [place] [address] Performed By: #### 2 4323-8 ####LAP[facility] LABORATORYCLIA [id number] [place] [address] [place] CO2 [Moles/Vol] 24 mmol/L Normal 22-30 [facility] Comment on above: Order Comment: Speci men Type: BLOOD SPECIMENOrdering Facility: [facility] Address: [address] [place] [address] Performed By: #### 2 4323-8 ####LAPINE LABORATORYCLIA [id number] [place] [id number] [place] Creatinine [Mass/Vol] 1.01 mg/dL Normal 0.73-1.22 [facility] Comment on above: Order Comment: Speci men Type: BLOOD SPECIMENOrdering Facility: [facility] Address: [address] [place] [address] Performed By: #### 2 4323-8 ####LAP[facility] LABORATORYCLIA [id number] [place] [id number] [place] Creatinine and Glomerular filtration rate.predicted panel (S/P/Bld) 85 mL/min/1.73m??? Normal >=60 [facility] Comment on above: Order Comment: Ariana rodriguez Type: BLOOD SPECIMENOrdering Facility: [facility] Address: [address] [place] [address] Result Comment: Chirag mated Glomerular Filtration Rate (eGFR) is calculated using the 2020 CKD-EPI creatinine equation. This equation utilizes serum creatinine, sex, and age as parameters. The creatinine assay has traceable calibration to isotope dilution-mass spectrometry. Refer to KDIGO guidelines for clinical interpretation. In patients with unstable renal function, e.g. those with acute kidney injury, the eGFR may not accurately reflect actual GFR. Performed By: #### 2 4323-8 ####[facility] LABORATORYCLIA [id number] [place] [address] [place] Glucose [Mass/Vol] 141 mg/dL High 74-99 [facility] Comment on above: Order Comment: Ariana rodriguez Type: BLOOD SPECIMENOrdering Facility: [facility] Address: [address] [place] [address] Result Comment: The [place] [employer] (ADA) provides guidance for cutoff values for fasting glucose and random glucose. The ADA defines fasting as no caloric intake for at least 8 hours. Fasting plasma glucose results between 100 to 125 mg/dL indicate increased risk for diabetes (prediabetes).Fasting plasma glucose results greater than or equal to 126 mg/dL meet the criteria for diagnosis of diabetes. In the absence of unequivocal hyperglycemia, results should be confirmed by repeat testing. In a patient with classic symptoms of hyperglycemia or hyperglycemic crisis, random plasma glucose results greater than or equal to 200 mg/dL meet the criteria for diagnosis of diabetes.Reference: Standards of Medical Care in Diabetes 2016, [place] [employer]. Diabetes Care. 2016.39(Suppl 1). Performed By: #### 2 4323-8 ####[facility] LABORATORYCLIA [id number] [place] [id number] [place] Potassium [Moles/Vol] 4.0 mmol/L Normal 3.7-5.1 [facility] Comment on above: Order Comment: Ariana rodriguez Type: BLOOD SPECIMENOrdering Facility: [facility] Address: [address] [place] [address] Performed By: #### 2 4323-8 ####[facility] LABORATORYCLIA [id number] [place] [id number] [place] Protein [Mass/Vol] 6.9 g/dL Normal 6.3-8.0 [facility] Comment on above: Order Comment: Speci men Type: BLOOD SPECIMENOrdering Facility: [facility] Address: [address] [place] [address] Performed By: #### 2 4323-8 ####[facility] LABORATORYCLIA [id number] [place] [id number] [place] Sodium [Moles/Vol] 137 mmol/L Normal 136-144 [facility] Comment on above: Order Comment: Speci men Type: BLOOD SPECIMENOrdering Facility: [facility] Address: [address] [place] [address] Performed By: #### 2 4323-8 ####[facility] LABORATORYCLIA [id number] [place] [id number] [place] Urea nitrogen [Mass/Vol] 12 mg/dL Normal 9-24 [facility] Comment on above: Order Comment: Speci men Type: BLOOD SPECIMENOrdering Facility: [facility] Address: [address] [place] [address] Performed By: #### 2 4323-8 ####[facility] LABORATORYCLIA [id number] [place] [id number] [place] OCCULT BLD EXAM-DIAGon 08-23 OCCULT BLD EXAM-DIAG Positive Abnormal [facility] Comment on above: Performed By: #### O BDX ####[facility] LABORATORYCLIA [id number] [place] [id number] [place] ANES POSTPROC EVALon 024 ANES POSTPROC EVAL Normal [facility] ANES PRE-OPon 08-23-2023 ANES PRE-OP Normal [facility] CASE MGT INIT ASSESon 2023 CASE MGT INIT ASSES Normal [facility] CBC W Ordered Manual Differe ntial panel (Bld)on 08-23-2023 Basophils (Bld) [#/Vol] 0.05 10*3/uL Normal <0.11 [facility] Comment on above: Order Comment: Speci men Type: BLOOD SPECIMENOrdering Facility: [facility] Address: [address] [place] [address] Performed By: #### 5 7782-5 ####L[facility] LABORATORYCLIA [id number] [place] [address] [place]#### STFREV ####[facility] LABCLIA [id number] [place] [address] [place] Basophils/100 WBC (Bld) 0.6 % Normal [facility] Comment on above: Order Comment: Speci men Type: BLOOD SPECIMENOrdering Facility: [facility] Address: [address] [place] [address] Performed By: #### 5 7782-5 ####[facility] LABORATORYCLIA [id number] [place] [address] [place]#### STFREV ####[facility] LABCLIA [id number] [place] [address] [place] Differential cell count method Nom (Bld) Auto Normal [facility] Comment on above: Order Comment: Speci men Type: BLOOD SPECIMENOrdering Facility: [facility] Address: [address] [place] [address] Performed By: #### 5 7782-5 ####[facility] LABORATORYCLIA [id number] [place] [address] [place]#### STFREV ####[facility] LABCLIA [id number] [place] [address] [place] Eosinophils (Bld) [#/Vol] 0.18 10*3/uL Normal <0.46 [facility] Comment on above: Order Comment: Speci men Type: BLOOD SPECIMENOrdering Facility: [facility] Address: [address] [place] [address] Performed By: #### 5 7782-5 ####[facility] LABORATORYCLIA [id number] [place] [address] [place]#### STFREV ####[facility] LABCLIA [id number] [place] [address] [place] Eosinophils/100 WBC (Bld) 2.2 % Normal [facility] Comment on above: Order Comment: Speci men Type: BLOOD SPECIMENOrdering Facility: [facility] Address: [address] [place] [address] Performed By: #### 5 7782-5 ####L[facility] LABORATORYCLIA [id number] [place] [address] [place]#### STFREV ####[facility] LABCLIA [id number] [place] [address] [place] Erythrocyte distribution width (RBC) [Ratio] 17.4 % High 11.5-15.0 [facility] Comment on above: Order Comment: Speci men Type: BLOOD SPECIMENOrdering Facility: [facility] Address: [address] [place] [address] Performed By: #### 5 7782-5 ####[facility] LABORATORYCLIA [id number] [place] [address] [place]#### STFREV ####[facility] LABCLIA [id number] [place] [address] [place] Hematocrit (Bld) [Volume fraction] 28.4 % Low 39.0-51.0 [facility] Comment on above: Order Comment: Speci men Type: BLOOD SPECIMENOrdering Facility: [facility] Address: [address] [place] [address] Performed By: #### 5 7782-5 ####[facility] LABORATORYCLIA [id number] [place] [address] [place]#### STFREV ####[facility] LABCLIA [id number] [place] [address] [place] Hemoglobin (Bld) [Mass/Vol] 8.7 g/dL Low 13.0-17.0 [facility] Comment on above: Order Comment: Speci men Type: BLOOD SPECIMENOrdering Facility: [facility] Address: [address] [place] [address] Performed By: #### 5 7782-5 ####[facility] LABORATORYCLIA [id number] [place] [address] [place]#### STFREV ####[facility] LABCLIA [id number] [place] [address] [place] Immature granulocytes (Bld) [#/Vol] 0.03 10*3/uL Normal <0.10 [facility] Comment on above: Order Comment: Speci men Type: BLOOD SPECIMENOrdering Facility: [facility] Address: [address] [place] [address] Performed By: #### 5 7782-5 ####[facility] LABORATORYCLIA [id number] [place] [address] [place]#### STFREV ####[facility] LABCLIA [id number] [address] [place] Immature granulocytes/100 WBC (Bld) 0.4 % Normal [facility] Comment on above: Order Comment: Speci men Type: BLOOD SPECIMENOrdering Facility: [facility] Address: [address] [place] [address] Performed By: #### 5 7782-5 ####[facility] LABORATORYCLIA [id number] [place] [address] [place]#### STFREV ####[facility] LABCLIA [id number] [place] [address] [place] Lymphocytes (Bld) [#/Vol] 2.19 10*3/uL Normal 1.00-4.00 [facility] Comment on above: Order Comment: Speci men Type: BLOOD SPECIMENOrdering Facility: [facility] Address: [address] [place] [address] Performed By: #### 5 7782-5 ####[facility] LABORATORYCLIA [id number] [place] [address] [place]#### STFREV ####[facility] LABCLIA [id number] [address] [place] Lymphocytes/100 WBC (Bld) 26.4 % Normal [facility] Comment on above: Order Comment: Speci men Type: BLOOD SPECIMENOrdering Facility: [facility] Address: [address] [place] [address] Performed By: #### 5 7782-5 ####[facility] LABORATORYCLIA [id number] [place] [address] [place]#### STFREV ####[facility] LABCLIA [id number] [address] [place] MCH (RBC) [Entitic mass] 26.0 pg Normal 26.0-34.0 [facility] Comment on above: Order Comment: Speci men Type: BLOOD SPECIMENOrdering Facility: [facility] Address: [address] [place] [address] Performed By: #### 5 7782-5 ####[facility] LABORATORYCLIA [id number] [address] [place]#### STFREV ####[facility] LABCLIA [id number] [address] [place] MCHC (RBC) [Mass/Vol] 30.6 g/dL Normal 30.5-36.0 [facility] Comment on above: Order Comment: Speci men Type: BLOOD SPECIMENOrdering Facility: [facility] Address: [address] [place] [address] Performed By: #### 5 7782-5 ####[facility] LABORATORYCLIA [id number] [place] [address] [place]#### STFREV ####[facility] LABCLIA [id number] [place] [address] [place] MCV (RBC) [Entitic vol] 85.0 fL Normal 80.0-100.0 [facility] Comment on above: Order Comment: Speci men Type: BLOOD SPECIMENOrdering Facility: [facility] Address: [address] [place] [address] Performed By: #### 5 7782-5 ####[facility] LABORATORYCLIA [id number] [place] [address] [place]#### STFREV ####[facility] LABCLIA [id number] [place] [address] [place] Monocytes (Bld) [#/Vol] 0.47 10*3/uL Normal <0.87 [facility] Comment on above: Order Comment: Speci men Type: BLOOD SPECIMENOrdering Facility: [facility] Address: [address] [place] [address] Performed By: #### 5 7782-5 ####[facility] LABORATORYCLIA [id number] [place] [address] [place]#### STFREV ####[facility] LABCLIA [id number] [place] [address] [place] Monocytes/100 WBC (Bld) 5.7 % Normal [facility] Comment on above: Order Comment: Speci men Type: BLOOD SPECIMENOrdering Facility: [facility] Address: [facility] [place] [address] Performed By: #### 5 7782-5 ####[facility] LABORATORYCLIA [id number] [place] [address] [place]#### STFREV ####[facility] LABCLIA [id number] [place] [address] [place] Neutrophils (Bld) [#/Vol] 5.38 10*3/uL Normal 1.45-7.50 [facility] Comment on above: Order Comment: Speci men Type: BLOOD SPECIMENOrdering Facility: [facility] Address: [address] [place] [address] Performed By: #### 5 7782-5 ####[facility] LABORATORYCLIA [id number] [place] [address] [place]#### STFREV ####[facility] LABCLIA [id number] [place] [address] [place] Neutrophils/100 WBC (Bld) 64.7 % Normal [facility] Comment on above: Order Comment: Speci men Type: BLOOD SPECIMENOrdering Facility: [facility] Address: [address] [place] [address] Result Comment: Diff erential confirmed by visual scan of peripheral blood smear slide. Performed By: #### 5 7782-5 ####[facility] LABORATORYCLIA [id number] [place] [address] [place]#### STFREV ####[facility] LABCLIA [id number] [place] [address] [place] Nucleated RBC (Bld) [#/Vol] 10*3/uL Normal <0.01 [facility] Comment on above: Order Comment: Speci men Type: BLOOD SPECIMENOrdering Facility: [facility] Address: [address] [place] [address] Performed By: #### 5 7782-5 ####[facility] LABORATORYCLIA [id number] [place] [address] [place]#### STFREV ####[facility] LABCLIA [id number] [place] [address] [place] Nucleated RBC/100 WBC (Bld) [Ratio] 0.0 /100 WBC Normal [facility] Comment on above: Order Comment: Speci men Type: BLOOD SPECIMENOrdering Facility: [facility] Address: [address] [place] [address] Performed By: #### 5 7782-5 ####[facility] LABORATORYCLIA [id number] [place] [address] [place]#### STFREV ####[facility] LABCLIA [id number] [place] [address] [place] Platelet mean volume (Bld) [Entitic vol] 9.1 fL Normal 9.0-12.7 [facility] Comment on above: Order Comment: Speci men Type: BLOOD SPECIMENOrdering Facility: [facility] Address: [address] [place] [address] Performed By: #### 5 7782-5 ####[facility] LABORATORYCLIA [id number] [place] [address] [place]#### STFREV ####[facility] LABCLIA [id number] [place] [address] [place] Platelets (Bld) [#/Vol] 481 10*3/uL High 150-400 [facility] Comment on above: Order Comment: Speci men Type: BLOOD SPECIMENOrdering Facility: [facility] Address: [address] [place] [address] Performed By: #### 5 7782-5 ####[facility] LABORATORYCLIA [id number] [place] [address] [place]#### STFREV ####[facility] LABCLIA [id number] [place] [id number] [place] RBC (Bld) [#/Vol] 3.34 10*6/uL Low 4.20-6.00 [facility] Comment on above: Order Comment: Speci men Type: BLOOD SPECIMENOrdering Facility: [facility] Address: [address] [place] [address] Performed By: #### 5 7782-5 ####[facility] LABORATORYCLIA [id number] [place] [address] [place]#### STFREV ####[facility] LABCLIA [id number] [place] [address] [place] WBC (Bld) [#/Vol] 8.30 10*3/uL Normal 3.70-11.00 [facility] Comment on above: Order Comment: Speci men Type: BLOOD SPECIMENOrdering Facility: [facility] Address: [address] [place] [address] Performed By: #### 5 7782-5 ####[facility] LABORATORYCLIA [id number] [address] [place]#### STFREV ####[facility] LABCLIA [id number] [address] [place] CBC panel Auto (Bld)on 08-22 Erythrocyte distribution width (RBC) [Ratio] 17.3 % High 11.5-15.0 [facility] Comment on above: Order Comment: Speci men Type: BLOOD SPECIMENOrdering Facility: [facility] Address: [address] [place] [address] Performed By: #### 5 8410-2 ####[facility] LABORATORYCLIA [id number] [address] [place] Hematocrit (Bld) [Volume fraction] 25.1 % Low 39.0-51.0 [facility] Comment on above: Order Comment: Speci men Type: BLOOD SPECIMENOrdering Facility: [facility] Address: [address] [place] [address] Performed By: #### 5 8410-2 ####[facility] LABORATORYCLIA [id number] [address] [place] Hemoglobin (Bld) [Mass/Vol] 7.8 g/dL Low 13.0-17.0 [facility] Comment on above: Order Comment: Speci men Type: BLOOD SPECIMENOrdering Facility: [facility] Address: [address] [place] [address] Performed By: #### 5 8410-2 ####[facility] LABORATORYCLIA [id number] [address] STATES [facility] MCH (RBC) [Entitic mass] 26.5 pg Normal 26.0-34.0 [facility] Comment on above: Order Comment: Speci men Type: BLOOD SPECIMENOrdering Facility: [facility] Address: [address] [place] [address] Performed By: #### 5 8410-2 ####[facility] LABORATORYCLIA [id number] [address] [place] MCHC (RBC) [Mass/Vol] 31.1 g/dL Normal 30.5-36.0 [facility] Comment on above: Order Comment: Speci men Type: BLOOD SPECIMENOrdering Facility: [facility] Address: [address] [place] [address] Performed By: #### 5 8410-2 ####[facility] LABORATORYCLIA [id number] [address] [place] MCV (RBC) [Entitic vol] 85.4 fL Normal 80.0-100.0 [facility] Comment on above: Order Comment: Speci men Type: BLOOD SPECIMENOrdering Facility: [facility] Address: [address] [place] [address] Performed By: #### 5 8410-2 ####[facility] LABORATORYCLIA [id number] [address] [place] Nucleated RBC (Bld) [#/Vol] 10*3/uL Normal <0.01 [facility] Comment on above: Order Comment: Speci men Type: BLOOD SPECIMENOrdering Facility: [facility] Address: [address] [place] [address] Performed By: #### 5 8410-2 ####[facility] LABORATORYCLIA [id number] [address] [place] Platelet mean volume (Bld) [Entitic vol] 9.3 fL Normal 9.0-12.7 [facility] Comment on above: Order Comment: Speci men Type: BLOOD SPECIMENOrdering Facility: [facility] Address: [address] [place] [address] Performed By: #### 5 8410-2 ####[facility] LABORATORYCLIA [id number] [place] [id number] [place] Platelets (Bld) [#/Vol] 430 10*3/uL High 150-400 [facility] Comment on above: Order Comment: Speci men Type: BLOOD SPECIMENOrdering Facility: [facility] Address: [address] [place] [address] Performed By: #### 5 8410-2 ####[facility] LABORATORYCLIA [id number] [place] [address] [place] RBC (Bld) [#/Vol] 2.94 10*6/uL Low 4.20-6.00 [facility] Comment on above: Order Comment: Speci men Type: BLOOD SPECIMENOrdering Facility: [facility] Address: [address] [place] [address] Performed By: #### 5 8410-2 ####[facility] LABORATORYCLIA [id number] [place] [id number] [place] WBC (Bld) [#/Vol] 6.99 10*3/uL Normal 3.70-11.00 [facility] Comment on above: Order Comment: Speci men Type: BLOOD SPECIMENOrdering Facility: [facility] Address: [address] [place] [address] Performed By: #### 5 8410-2 ####[facility] LABORATORYCLIA [id number] [place] [id number] [place] CNPNon 08-23-2023 CNPN Normal [facility] CONSULTon 08-23-2023 CONSULT Normal [facility] CONSULT PROGon 08-23-2023 CONSULT PROG [facility] CONSULT PROG Normal [facility] COPPER BLOODon 08-23-2023 Copper [Mass/Vol] 111 ug/dL Normal 70-140 [facility] Comment on above: Order Comment: Speci men Type: BLOOD SPECIMENOrdering Facility: [facility] Address: [address] [place] [address] Result Comment: This test was developed and its performance characteristics determined by [facility]'s Damon [facility] [place] ([facility]). It has not been cleared or approved by the FDA. [facility] is regulated under CLIA as qualified to perform high-complexity testing. This test is used for clinical purposes. It should not be regarded as investigational or for research. Performed By: #### C OPPER ####[facility] LABCLIA [id number] [place] [address] [place] Comprehensive metabolic 2000 panelon 08-23-2023 Albumin [Mass/Vol] 3.9 g/dL Normal 3.9-4.9 [facility] Comment on above: Order Comment: Speci men Type: BLOOD SPECIMENOrdering Facility: [facility] Address: [address] [place] [address] Performed By: #### 2 4323-8, 39949-2, 2275-4 ####[facility] LABORATORYCLIA [id number] [place] [id number] [place] ALP [Catalytic activity/Vol] 92 U/L Normal 38-113 [facility] Comment on above: Order Comment: Speci men Type: BLOOD SPECIMENOrdering Facility: [facility] Address: [address] [place] [address] Performed By: #### 2 4323-8, 06979-5, 2275-4 ####[facility] LABORATORYCLIA [id number] [place] [id number] [place] ALT [Catalytic activity/Vol] 13 U/L Normal 10-54 [facility] Comment on above: Order Comment: Speci men Type: BLOOD SPECIMENOrdering Facility: [facility] Address: [address] [place] [address] Performed By: #### 2 4323-8, 25043-7, 2275-4 ####[facility] LABORATORYCLIA [id number] [place] [id number] [place] Anion gap [Moles/Vol] 14 mmol/L Normal 9-18 [facility] Comment on above: Order Comment: Speci men Type: BLOOD SPECIMENOrdering Facility: [facility] Address: [address] [place] [id number] Performed By: #### 2 4323-8, 20288-5, 2275-4 ####[facility] LABORATORYCLIA [id number] [place] [address] [place] AST [Catalytic activity/Vol] 16 U/L Normal 14-40 [facility] Comment on above: Order Comment: Speci men Type: BLOOD SPECIMENOrdering Facility: [facility] Address: [address] [place] [address] Performed By: #### 2 4323-8, 70744-2, 2275-08 ####[facility] LABORATORYCLIA [id number] [place] [address] [place] Bilirubin [Mass/Vol] 0.3 mg/dL Normal 0.2-1.3 [facility] Comment on above: Order Comment: Speci men Type: BLOOD SPECIMENOrdering Facility: [facility] Address: [address] [place] [id number] Performed By: #### 2 4323-8, 08022-2, 2275- ####[facility] LABORATORYCLIA [id number] [place] [id number] [place] Calcium [Mass/Vol] 9.1 mg/dL Normal 8.5-10.2 [facility] Comment on above: Order Comment: Speci men Type: BLOOD SPECIMENOrdering Facility: [facility] Address: [address] [place] [id number] Performed By: #### 2 4323-8, 13953-5, 2275-4 ####[facility] LABORATORYCLIA [id number] [place] [id number] [place] Chloride [Moles/Vol] 103 mmol/L Normal 97-105 [facility] Comment on above: Order Comment: Speci men Type: BLOOD SPECIMENOrdering Facility: [facility] Address: [address] [place] [address] Performed By: #### 2 4323-8, 52924-4, 6-4 ####[facility]ORATORYCLIA [id number] [place] [address] [place] CO2 [Moles/Vol] 24 mmol/L Normal 22-30 [facility] Comment on above: Order Comment: Speci men Type: BLOOD SPECIMENOrdering Facility: [facility] Address: [address] [place] [address] Performed By: #### 2 4323-8, 85864-7, 2275-4 ####[facility] LABORATORYCLIA [id number] [place] [id number] [place] Creatinine [Mass/Vol] 1.24 mg/dL High 0.73-1.22 [facility] Comment on above: Order Comment: Speci men Type: BLOOD SPECIMENOrdering Facility: [facility] Address: [address] [place] [address] Performed By: #### 2 4323-8, 19067-8, 2275-4 ####[facility] LABORATORYCLIA [id number] [address] STATES OF [facility] Creatinine and Glomerular filtration rate.predicted panel (S/P/Bld) 66 mL/min/1.73m??? Normal >=60 [facility] Comment on above: Order Comment: Speci men Type: BLOOD SPECIMENOrdering Facility: [facility] Address: [address] [place] [address] Result Comment: Chirag mated Glomerular Filtration Rate (eGFR) is calculated using the 2020 CKD-EPI creatinine equation. This equation utilizes serum creatinine, sex, and age as parameters. The creatinine assay has traceable calibration to isotope dilution-mass spectrometry. Refer to KDIGO guidelines for clinical interpretation. In patients with unstable renal function, e.g. those with acute kidney injury, the eGFR may not accurately reflect actual GFR. Performed By: #### 2 4323-8, 51002-0, 2275-4 ####LAP[facility] LABORATORYCLIA [id number] [place] [address] [place] Glucose [Mass/Vol] 92 mg/dL Normal 74-99 [facility] Comment on above: Order Comment: Speci men Type: BLOOD SPECIMENOrdering Facility: [facility] Address: [address] [place], [place] [address] Result Comment: The [place] Diabetes Association (ADA) provides guidance for cutoff values for fasting glucose and random glucose. The ADA defines fasting as no caloric intake for at least 8 hours. Fasting plasma glucose results between 100 to 125 mg/dL indicate increased risk for diabetes (prediabetes).Fasting plasma glucose results greater than or equal to 126 mg/dL meet the criteria for diagnosis of diabetes. In the absence of unequivocal hyperglycemia, results should be confirmed by repeat testing. In a patient with classic symptoms of hyperglycemia or hyperglycemic crisis, random plasma glucose results greater than or equal to 200 mg/dL meet the criteria for diagnosis of diabetes.Reference: Standards of Medical Care in Diabetes 2016, [place] [employer]. Diabetes Care. 2016.39(Suppl 1). Performed By: #### 2 4323-8, 48812-0, 2275-4 ####[facility] LABORATORYCLIA [id number] [place] [address] [place] Potassium [Moles/Vol] 4.3 mmol/L Normal 3.7-5.1 [facility] Comment on above: Order Comment: Speci men Type: BLOOD SPECIMENOrdering Facility: [facility] Address: [address] [place] [address] Performed By: #### 2 4323-8, 51029-3, 2275-4 ####LAPINE LABORATORYCLIA [id number] [place] [id number] [place] Protein [Mass/Vol] 6.7 g/dL Normal 6.3-8.0 [facility] Comment on above: Order Comment: Speci men Type: BLOOD SPECIMENOrdering Facility: [facility] Address: [address] [place] [address] Performed By: #### 2 4323-8, 96386-9, 4 ####LAPINE LABORATORYCLIA [id number] [place] [id number] [place] Sodium [Moles/Vol] 141 mmol/L Normal 136-144 [facility] Comment on above: Order Comment: Speci men Type: BLOOD SPECIMENOrdering Facility: [facility] Address: [address] [place] [address] Performed By: #### 2 4323-8, 41892-3, 2276-4 ####[facility] LABORATORYCLIA [id number] [place] [id number] [place] Urea nitrogen [Mass/Vol] 14 mg/dL Normal 9-24 [facility] Comment on above: Order Comment: Speci men Type: BLOOD SPECIMENOrdering Facility: [facility] Address: [address] [place] [address] Performed By: #### 2 4323-8, 42008-9, 6-4 ####[facility] LABORATORYCLIA [id number] [place] [id number] [place] Ferritin SerPl-mCncon 2023 Ferritin [Mass/Vol] 21.7 ng/mL Low 30.3-565.7 [facility] Comment on above: Order Comment: Speci men Type: BLOOD SPECIMENOrdering Facility: [facility] Address: [address] [place] [address] Performed By: #### 2 4323-8, 78750-7, 6-4 ####LAPINE LABORATORYCLIA [id number] [place] [id number] [place] Folate SerPl-mCncon 08-23-19 24 Folate [Mass/Vol] ng/mL Normal >4.7 [facility] Comment on above: Order Comment: Speci men Type: BLOOD SPECIMENOrdering Facility: [facility] Address: [address] [place] [address] Result Comment: A re sult of > 20 ng/mL is not necessarily indicative of a pathologic or treatable condition: it reflects a limitation of the test methodology.Assay reference range: 4.8 to 24.2 ng/mL. Suitable for detection of folate deficiency.Reference:Folate III (Folate III) [package insert V 1.0 Sin[place]a]. [facility], [place], [place]: March 2015. Performed By: #### 2 132-9, 2284-8 ####JAKE LABORATORYCLIA [id number] [place] [address] [place] HISTORY PHYSICALon HISTORY PHYSICAL Normal [facility] Haptoglob SerPl-mCncon 08-22 Haptoglobin [Mass/Vol] 220 mg/dL Normal 31-238 [facility] Comment on above: Order Comment: Speci men Type: BLOOD SPECIMENOrdering Facility: [facility] Address: [address] [place] [address] Performed By: #### 4 542-7 ####[facility] LABCLIA [id number] [place] [address] [place] Hepatic function 2000 panelo n 08-23-2023 Albumin [Mass/Vol] 4.4 g/dL Normal 3.9-4.9 [facility] Comment on above: Order Comment: Speci men Type: BLOOD SPECIMENOrdering Facility: [facility] Address: [address] [place] [address] Performed By: #### 2 4325-3 ####L[facility] LABORATORYCLIA [id number] [place] [id number] [place] ALP [Catalytic activity/Vol] 112 U/L Normal 38-113 [facility] Comment on above: Order Comment: Speci men Type: BLOOD SPECIMENOrdering Facility: [facility] Address: [address] [place] [address] Performed By: #### 2 4325-3 ####L[facility] LABORATORYCLIA [id number] [place] [id number] [place] ALT [Catalytic activity/Vol] 16 U/L Normal 10-54 [facility] Comment on above: Order Comment: Speci men Type: BLOOD SPECIMENOrdering Facility: [facility] Address: [address] [place] [address] Performed By: #### 2 4325-3 ####L[facility] LABORATORYCLIA [id number] [place] [id number] [place] AST [Catalytic activity/Vol] 18 U/L Normal 14-40 [facility] Comment on above: Order Comment: Speci men Type: BLOOD SPECIMENOrdering Facility: [facility] Address: [address] [place] [address] Performed By: #### 2 4325-3 ####[facility] LABORATORYCLIA [id number] [place] [id number] [place] Bilirubin [Mass/Vol] 0.4 mg/dL Normal 0.2-1.3 [facility] Comment on above: Order Comment: Speci men Type: BLOOD SPECIMENOrdering Facility: [facility] Address: [address] [place] [address] Performed By: #### 2 4325-3 ####[facility] LABORATORYCLIA [id number] [place] [address] [place] Bilirubin.conjugated [Mass/Vol] mg/dL Normal <0.2 [facility] Comment on above: Order Comment: Speci men Type: BLOOD SPECIMENOrdering Facility: [facility] Address: [address] [place] [address] Performed By: #### 2 4325-3 ####[facility] LABORATORYCLIA [id number] [place] [address] [place] Protein [Mass/Vol] 7.2 g/dL Normal 6.3-8.0 [facility] Comment on above: Order Comment: Speci men Type: BLOOD SPECIMENOrdering Facility: [facility] Address: [address] [place] [address] Performed By: #### 2 4325-3 ####[facility] LABORATORYCLIA [id number] [place] [id number] [place] Iron and Iron binding capaci ty panelon 08-23-2023 Iron [Mass/Vol] 13 ug/dL Low 41-186 [facility] Comment on above: Order Comment: Speci men Type: BLOOD SPECIMENOrdering Facility: [facility] Address: [address] [place] [address] Performed By: #### 2 4323-8, 65417-5, 2276-4 ####[facility] LABORATORYCLIA [id number] [place] [id number] [place] Iron binding capacity [Mass/Vol] 370 ug/dL Normal 232-386 [facility] Comment on above: Order Comment: Speci men Type: BLOOD SPECIMENOrdering Facility: [facility] Address: [address] [place] [address] Performed By: #### 2 4323-8, 38477-7, 2276-4 ####L[facility] LABORATORYCLIA [id number] [place] [id number] [place] Iron/TIBC [Molar ratio] 3.5 % Low 20.0-55.0 [facility] Comment on above: Order Comment: Speci men Type: BLOOD SPECIMENOrdering Facility: [facility] Address: [address] [place] [address] Performed By: #### 2 4323-8, 27806-7, 2276-4 ####LAP[facility] LABORATORYCLIA [id number] [place] [address] [place] LDH SerPl-cCncon 08-23-2023 LDH [Catalytic activity/Vol] 141 U/L Normal 100-220 [facility] Comment on above: Order Comment: Speci men Type: BLOOD SPECIMENOrdering Facility: [facility] Address: [address] [place] [address] Performed By: #### 2 532-0 ####L[facility] LABORATORYCLIA [id number] [place] [address] [place] NURSING PROGon 08-23-2023 NURSING PROG Normal [facility] NURSING PROG Normal [facility] PATHOLOGIST INTERPRETATION C BC/DIFFon 08-23-2023 Plate Glass Grinder review Oliver (Unsp spec) [Interp] No review performed. Normal [facility] Comment on above: Order Comment: Speci men Type: BLOOD SPECIMENOrdering Facility: [facility] Address: [address] [place] [address] Performed By: #### 5 7782-5 ####L[facility] LABORATORYCLIA [id number] [place] [address] [place]#### STFREV ####[facility] LABCLIA [id number] [place] [address] [place] STAFF REVIEW, CBCDIF Normal [facility] Comment on above: Order Comment: Speci men Type: BLOOD SPECIMENOrdering Facility: [facility] Address: [address] [place] [address] Result Comment: The Pathologist Interpretation on this sample was cancelled because the hematology analyzer did not flag any parameters as requiring manual review. If there is a specific clinical concern for which you would like a pathologist to review the blood smear, please call Lab Client Services within 28 days.Account Credited Performed By: #### 5 7782-5 ####L[facility] LABORATORYCLIA [id number] [place] [address] [place]#### STFREV ####[facility] LABCLIA [id number] [place] [address] [place] RBC MORPHOLOGYon 08-23-2023 Dacrocytes LM Ql (Bld) Few [facility] Comment on above: Order Comment: Speci men Type: BLOOD SPECIMENOrdering Facility: [facility] Address: [address] [place] [address] Performed By: #### 1 4196-0, [id number] ####[facility] LABCLIA [id number] [place] [address] [place] Ovalocytes LM Ql (Bld) Few [facility] Comment on above: Order Comment: Speci men Type: BLOOD SPECIMENOrdering Facility: [facility] Address: [address] [place] [address] Performed By: #### 1 4196-0, [id number] ####[facility] LABCLIA [id number] [place] [id number] [place] Platelets Estimate (Bld) [#/Vol] Adequate Normal [facility] Comment on above: Order Comment: Speci men Type: BLOOD SPECIMENOrdering Facility: [facility] Address: [address] [place] [address] Performed By: #### 1 4196-0, [id number] ####[facility] LABCLIA [id number] [place] [address] [place] Polychromasia LM Ql (Bld) Slight Normal [facility] Comment on above: Order Comment: Speci men Type: BLOOD SPECIMENOrdering Facility: [facility] Address: [address] [place] [address] Performed By: #### 1 4196-0, [id number] ####[facility] LABCLIA [id number] [place] [address] [place] RBC FRAGMENTS Few Abnormal None Seen [facility] Comment on above: Order Comment: Speci men Type: BLOOD SPECIMENOrdering Facility: [facility] Address: [address] [place] [address] Performed By: #### 1 4196-0, [id number] ####[facility] LABCLIA [id number] [address] [place] RBC morphology finding Nom (Bld) Reviewed: see results of individual morphologies Normal [facility] Comment on above: Order Comment: Speci men Type: BLOOD SPECIMENOrdering Facility: [facility] Address: [address] [place] [address] Performed By: #### 1 4196-0, [id number] ####[facility] LABCLIA [id number] [place] [address] [place] Retics #on 08-23-2023 Reticulocytes (Bld) [#/Vol] 0.89540 10*3/uL Normal 0.018-0.100 [facility] Comment on above: Order Comment: Speci men Type: BLOOD SPECIMENOrdering Facility: [facility] Address: [address] [place] [address] Result Comment: Resu lts verified by dilution Performed By: #### 1 4196-0, [id number] ####[facility] LABCLIA [id number] [place] [address] [place] Reticulocytes (Bld) [#/Vol]o n 08-23-2023 Hemoglobin Auto (Reticulocytes) [Entitic mass] 18.5 pg Low 28.0-36.0 [facility] Comment on above: Order Comment: Speci men Type: BLOOD SPECIMENOrdering Facility: [facility] Address: [address] [place] [address] Result Comment: No c lot detected. Performed By: #### 1 4196-0, [id number] ####[facility] LABCLIA [id number] [place] [address] [place] Immature reticulocytes/Total reticulocytes (Bld) 21.1 % High 2.0-13.5 [facility] Comment on above: Order Comment: Speci men Type: BLOOD SPECIMENOrdering Facility: [facility] Address: [address] [place] [address] Performed By: #### 1 4196-0, [id number] ####[facility] LABCLIA [id number] [place] [address] [place] Reticulocytes/100 RBC (Bld) 2.8 % High 0.4-2.0 [facility] Comment on above: Order Comment: Speci men Type: BLOOD SPECIMENOrdering Facility: [facility] Address: [address] [place] [address] Result Comment: Resu lts verified by dilution Performed By: #### 1 4196-0, [id number] ####[facility] LABCLIA [id number] [place] [address] [place] Small bowel enteroscopyon Small bowel enteroscopy Normal [facility] VITAMIN B1 PLASMAon 08-23-19 24 VITAMIN B1, PLASMA 49 nmol/L High 4-15 [facility] Comment on above: Order Comment: Speci men Type: BLOOD SPECIMENOrdering Facility: [facility] Address: [address] [place] [address] Result Comment: INTE RPRETIVE DATA: Vitamin B1, PlasmaThiamine (vitamin B1) is reported. However, thiamine diphosphate(TDP), the biologically active form of thiamine, is not found inmeasurable concentrations in plasma, and is best determined inwhole blood specimens. Plasma thiamine concentration reflectsrecent intake rather than body stores.This test was developed and its performance characteristicsdetermined by [facility]. It has not been cleared orapproved by the [place] Food and Drug Administration. This test wasperformed in a CLIA certified laboratory and is intended forclinical purposes.Performed By: RUST [address] [place] [address]Godxzowiop Director: Kendall Vanegas MD, PhDCLIA Number: [id number] Performed By: #### P VITB1 ####[facility]OSPITALIA [id number] [place] [address] VITAMIN B6/PYRIDOXINon 08-22 VITAMIN B6 91.8 nmol/L Normal 20.0-125.0 [facility] Comment on above: Order Comment: Speci men Type: BLOOD SPECIMENOrdering Facility: [facility] Address: [address] [place] [address] Result Comment: INTE RPRETIVE INFORMATION: Vitamin B6 (Pyridoxal 5-Phosphate)Pyridoxal 5'-phosphate measured in a specimen collected followingan 8-hour or overnight fast accurately indicates vitamin P7vltwzryustp status. Non-fasting specimen concentration reflectsrecent vitamin intake.This test was developed and its performance characteristicsdetermined by [facility]. It has not been cleared orapproved by the [place] Food and Drug Administration. This test wasperformed in a CLIA certified laboratory and is intended forclinical purposes.Performed By: RUST [address] [place] [address]Hyjfxpzcpf Director: Kendall Vanegas MD, PhDCLIA Number: [id number] Performed By: #### V ITB6 ####[facility]PITALIA [id number] [place] [address] Vit B12 SerPl-mCncon 024 Cobalamin (Vitamin B12) [Mass/Vol] 859 pg/mL Normal 232-1245 [facility] Comment on above: Order Comment: Speci men Type: BLOOD SPECIMENOrdering Facility: [facility] Address: [address] [place] [address] Performed By: #### 2 132-9, 2284-8 ####[facility] [id number] [place] [address] [place] ZINC, WHOLE BLOODon 08-23-19 24 ZINC, WHOLE BLOOD 496.9 ug/dL Normal 440.0-860.0 [facility] Comment on above: Order Comment: Speci men Type: BLOOD SPECIMENOrdering Facility: [facility] Address: [address] [place] [address] Result Comment: INTE RPRETIVE DATA: Zinc Quantitative, Whole BloodElevated results may be due to skin or collection-relatedcontamination, including the use of a noncertified metal-freecollection/transport tube. If contamination concerns exist due toelevated levels of blood zinc, confirmation with a second specimencollected in a certified metal-free tube is recommended.Zinc concentration in blood has not been shown to changesignificantly in deficiency or with supplementation.This test was developed and its performance characteristicsdetermined by [facility]. It has not been cleared orapproved by the [place] Food and Drug Administration. This test wasperformed in a CLIA certified laboratory and is intended forclinical purposes.Performed By: [facility] [place], [place] [address]Luvvrowxrb Director: Kendall Vanegas MD, PhDCLIA Number: [id number] Performed By: #### Z INCWB ####[facility]PITALIA [id number] [place] [address] CBC panel Auto (Bld)on 08-21 Erythrocyte distribution width (RBC) [Ratio] 17.1 % High 11.5-15.0 [facility] Comment on above: Order Comment: Speci men Type: BLOOD SPECIMENOrdering Facility: [facility] Address: [address] [place] [address] Performed By: #### 5 8410-2 ####[facility] LABORATORYCLIA [id number] [place] [id number] [place] Hematocrit (Bld) [Volume fraction] 25.2 % Low 39.0-51.0 [facility] Comment on above: Order Comment: Speci men Type: BLOOD SPECIMENOrdering Facility: [facility] Address: [address] [place] [address] Performed By: #### 5 8410-2 ####L[facility] LABORATORYCLIA [id number] [place] [id number] [place] [facility] Hemoglobin (Bld) [Mass/Vol] 7.7 g/dL Low 13.0-17.0 [facility] Comment on above: Order Comment: Speci men Type: BLOOD SPECIMENOrdering Facility: [facility] Address: [address] [place] [address] Performed By: #### 5 8410-2 ####[facility] LABORATORYCLIA [id number] [address] [place] [facility] MCH (RBC) [Entitic mass] 25.8 pg Low 26.0-34.0 [facility] Comment on above: Order Comment: Speci men Type: BLOOD SPECIMENOrdering Facility: [facility] Address: [address] [place] [address] Performed By: #### 5 8410-2 ####[facility] LABORATORYCLIA [id number] [address] MCHC (RBC) [Mass/Vol] 30.6 g/dL Normal 30.5-36.0 [facility] Comment on above: Order Comment: Speci men Type: BLOOD SPECIMENOrdering Facility: [facility] Address: [address] [place] [address] Performed By: #### 5 8410-2 ####[facility] LABORATORYCLIA [id number] [address] [place] MCV (RBC) [Entitic vol] 84.6 fL Normal 80.0-100.0 [facility] Comment on above: Order Comment: Speci men Type: BLOOD SPECIMENOrdering Facility: [facility] Address: [address] [place] [address] Performed By: #### 5 8410-2 ####[facility] LABORATORYCLIA [id number] [address] Nucleated RBC (Bld) [#/Vol] 10*3/uL Normal <0.01 [facility] Comment on above: Order Comment: Speci men Type: BLOOD SPECIMENOrdering Facility: [facility] Address: [address] [place] [address] Performed By: #### 5 8410-2 ####[facility] LABORATORYCLIA [id number] [place] [id number] [place] Platelet mean volume (Bld) [Entitic vol] 9.1 fL Normal 9.0-12.7 [facility] Comment on above: Order Comment: Speci men Type: BLOOD SPECIMENOrdering Facility: [facility] Address: [address] [place] [address] Performed By: #### 5 8410-2 ####[facility] LABORATORYCLIA [id number] [place] [id number] [place] Platelets (Bld) [#/Vol] 438 10*3/uL High 150-400 [facility] Comment on above: Order Comment: Speci men Type: BLOOD SPECIMENOrdering Facility: [facility] Address: [address] [place] [address] Performed By: #### 5 8410-2 ####[facility] LABORATORYCLIA [id number] [place] [id number] [place] RBC (Bld) [#/Vol] 2.98 10*6/uL Low 4.20-6.00 [facility] Comment on above: Order Comment: Speci men Type: BLOOD SPECIMENOrdering Facility: [facility] Address: [address] [place] [address] Performed By: #### 5 8410-2 ####[facility] LABORATORYCLIA [id number] [place] [id number] [place] WBC (Bld) [#/Vol] 5.82 10*3/uL Normal 3.70-11.00 [facility] Comment on above: Order Comment: Speci men Type: BLOOD SPECIMENOrdering Facility: [facility] Address: [address] [place] [address] Performed By: #### 5 8410-2 ####[facility] LABORATORYCLIA [id number] [place] [id number] [place] Erythrocyte distribution width (RBC) [Ratio] 17.2 % High 11.5-15.0 [facility] Comment on above: Order Comment: Speci men Type: BLOOD SPECIMENOrdering Facility: [facility] Address: [address] [place] [address] Performed By: #### 5 8410-2 ####[facility] LABORATORYCLIA [id number] [address] [place] Hematocrit (Bld) [Volume fraction] 24.3 % Low 39.0-51.0 [facility] Comment on above: Order Comment: Speci men Type: BLOOD SPECIMENOrdering Facility: [facility] Address: [address] [place] [address] Performed By: #### 5 8410-2 ####[facility] LABORATORYCLIA [id number] [address] [place] Hemoglobin (Bld) [Mass/Vol] 7.4 g/dL Low 13.0-17.0 [facility] Comment on above: Order Comment: Speci men Type: BLOOD SPECIMENOrdering Facility: [facility] Address: [address] [place] [address] Performed By: #### 5 8410-2 ####[facility] LABORATORYCLIA [id number] [address] [place] [facility] MCH (RBC) [Entitic mass] 26.1 pg Normal 26.0-34.0 [facility] Comment on above: Order Comment: Speci men Type: BLOOD SPECIMENOrdering Facility: [facility] Address: [address] [place] [address] Performed By: #### 5 8410-2 ####JAKE LABORATORYCLIA [id number] [place] [id number] [place] MCHC (RBC) [Mass/Vol] 30.5 g/dL Normal 30.5-36.0 [facility] Comment on above: Order Comment: Speci men Type: BLOOD SPECIMENOrdering Facility: [facility] Address: [address] [place] [address] Performed By: #### 5 8410-2 ####JAKE LABORATORYCLIA [id number] [place] [id number] [place] MCV (RBC) [Entitic vol] 85.6 fL Normal 80.0-100.0 [facility] Comment on above: Order Comment: Speci men Type: BLOOD SPECIMENOrdering Facility: [facility] Address: [address] [place] [address] Performed By: #### 5 8410-2 ####LAPINE LABORATORYCLIA [id number] [place] [address] [place] Nucleated RBC (Bld) [#/Vol] 10*3/uL Normal <0.01 [facility] Comment on above: Order Comment: Speci men Type: BLOOD SPECIMENOrdering Facility: [facility] Address: [address] [place] [address] Performed By: #### 5 8410-2 ####LAPINE LABORATORYCLIA [id number] [address] [place] Platelet mean volume (Bld) [Entitic vol] 9.2 fL Normal 9.0-12.7 [facility] Comment on above: Order Comment: Speci men Type: BLOOD SPECIMENOrdering Facility: [facility] Address: [address] [place] [address] Performed By: #### 5 8410-2 ####LAPINE LABORATORYCLIA [id number] [address] [place] Platelets (Bld) [#/Vol] 432 10*3/uL High 150-400 [facility] Comment on above: Order Comment: Speci men Type: BLOOD SPECIMENOrdering Facility: [facility] Address: [address] [place] [address] Performed By: #### 5 8410-2 ####LAPINE LABORATORYCLIA [id number] [place] [address] [place] RBC (Bld) [#/Vol] 2.84 10*6/uL Low 4.20-6.00 [facility] Comment on above: Order Comment: Speci men Type: BLOOD SPECIMENOrdering Facility: [facility] Address: [address] [place] [address] Performed By: #### 5 8410-2 ####LAPINE LABORATORYCLIA [id number] [place] [id number] [place] WBC (Bld) [#/Vol] 6.88 10*3/uL Normal 3.70-11.00 [facility] Comment on above: Order Comment: Speci men Type: BLOOD SPECIMENOrdering Facility: [facility] Address: [address] [place] [address] Performed By: #### 5 8410-2 ####LAPINE LABORATORYCLIA [id number] [place] [id number] [place] CONSULTon 08-22-2023 CONSULT Normal [facility] CONSULT Normal [facility] Comprehensive metabolic 2000 panelon 08-22-2023 Albumin [Mass/Vol] 3.9 g/dL Normal 3.9-4.9 [facility] Comment on above: Order Comment: Speci men Type: BLOOD SPECIMENOrdering Facility: [facility] Address: [address] [place] [address] Performed By: #### 2 4323-8 ####LAPINE LABORATORYCLIA [id number] [place] [id number] [place] ALP [Catalytic activity/Vol] 87 U/L Normal 38-113 [facility] Comment on above: Order Comment: Speci men Type: BLOOD SPECIMENOrdering Facility: [facility] Address: [address] [place] [address] Performed By: #### 2 4323-8 ####LAPINE LABORATORYCLIA [id number] [place] [id number] [place] ALT [Catalytic activity/Vol] 13 U/L Normal 10-54 [facility] Comment on above: Order Comment: Speci men Type: BLOOD SPECIMENOrdering Facility: [facility] Address: [address] [place] [address] Performed By: #### 2 4323-8 ####LAPINE LABORATORYCLIA [id number] [place] [id number] [place] Anion gap [Moles/Vol] 9 mmol/L Normal 9-18 [facility] Comment on above: Order Comment: Speci men Type: BLOOD SPECIMENOrdering Facility: [facility] Address: [address] [place] [address] Performed By: #### 2 4323-8 ####LAPINE LABORATORYCLIA [id number] [place] [id number] [place] AST [Catalytic activity/Vol] 15 U/L Normal 14-40 [facility] Comment on above: Order Comment: Speci men Type: BLOOD SPECIMENOrdering Facility: [facility] Address: [address] [place] [address] Performed By: #### 2 4323-8 ####LAPINE LABORATORYCLIA [id number] [place] [address] [place] Bilirubin [Mass/Vol] 0.2 mg/dL Normal 0.2-1.3 [facility] Comment on above: Order Comment: Speci men Type: BLOOD SPECIMENOrdering Facility: [facility] Address: [address] [place] [address] Performed By: #### 2 4323-8 ####LAPINE LABORATORYCLIA [id number] [place] [address] [place] Calcium [Mass/Vol] 9.0 mg/dL Normal 8.5-10.2 [facility] Comment on above: Order Comment: Speci men Type: BLOOD SPECIMENOrdering Facility: [facility] Address: [address] [place] [address] Performed By: #### 2 4323-8 ####LAPINE LABORATORYCLIA [id number] [place] [address] [place] Chloride [Moles/Vol] 106 mmol/L High 97-105 [facility] Comment on above: Order Comment: Speci men Type: BLOOD SPECIMENOrdering Facility: [facility] Address: [address] [place] [address] Performed By: #### 2 4323-8 ####LAPINE LABORATORYCLIA [id number] [place] [address] [place] CO2 [Moles/Vol] 26 mmol/L Normal 22-30 [facility] Comment on above: Order Comment: Speci men Type: BLOOD SPECIMENOrdering Facility: [facility] Address: [address] [place] [address] Performed By: #### 2 4323-8 ####LAPINE LABORATORYCLIA [id number] [place] [id number] [place] Creatinine [Mass/Vol] 1.08 mg/dL Normal 0.73-1.22 [facility] Comment on above: Order Comment: Speci men Type: BLOOD SPECIMENOrdering Facility: [facility] Address: [address] [place] [address] Performed By: #### 2 4323-8 ####LAPINE LABORATORYCLIA [id number] [address] Creatinine and Glomerular filtration rate.predicted panel (S/P/Bld) 78 mL/min/1.73m??? Normal >=60 [facility] Comment on above: Order Comment: Speci men Type: BLOOD SPECIMENOrdering Facility: [facility] Address: [address] [place] [address] Result Comment: Chirag mated Glomerular Filtration Rate (eGFR) is calculated using the 2020 CKD-EPI creatinine equation. This equation utilizes serum creatinine, sex, and age as parameters. The creatinine assay has traceable calibration to isotope dilution-mass spectrometry. Refer to KDIGO guidelines for clinical interpretation. In patients with unstable renal function, e.g. those with acute kidney injury, the eGFR may not accurately reflect actual GFR. Performed By: #### 2 4323-8 ####LAPINE LABORATORYCLIA [id number] [place] [id number] [place] Glucose [Mass/Vol] 108 mg/dL High 74-99 [facility] Comment on above: Order Comment: Ariana rodriguez Type: BLOOD SPECIMENOrdering Facility: [facility] Address: [address] [place] [address] Result Comment: The [place] [employer] (ADA) provides guidance for cutoff values for fasting glucose and random glucose. The ADA defines fasting as no caloric intake for at least 8 hours. Fasting plasma glucose results between 100 to 125 mg/dL indicate increased risk for diabetes (prediabetes).Fasting plasma glucose results greater than or equal to 126 mg/dL meet the criteria for diagnosis of diabetes. In the absence of unequivocal hyperglycemia, results should be confirmed by repeat testing. In a patient with classic symptoms of hyperglycemia or hyperglycemic crisis, random plasma glucose results greater than or equal to 200 mg/dL meet the criteria for diagnosis of diabetes.Reference: Standards of Medical Care in Diabetes 2016, [place] [employer]. Diabetes Care. 2016.39(Suppl 1). Performed By: #### 2 4323-8 ####LAPINE LABORATORYCLIA [id number] [place] [address] [place] Potassium [Moles/Vol] 4.5 mmol/L Normal 3.7-5.1 [facility] Comment on above: Order Comment: Ariana rodriguez Type: BLOOD SPECIMENOrdering Facility: [facility] Address: [address] [place] [address] Performed By: #### 2 4323-8 ####LAPINE LABORATORYCLIA [id number] [place] [id number] [place] Protein [Mass/Vol] 6.6 g/dL Normal 6.3-8.0 [facility] Comment on above: Order Comment: Bebai men Type: BLOOD SPECIMENOrdering Facility: [facility] Address: [address] [place] [address] Performed By: #### 2 4323-8 ####LAPINE LABORATORYCLIA [id number] [place] [id number] [place] Sodium [Moles/Vol] 141 mmol/L Normal 136-144 [facility] Comment on above: Order Comment: Speci men Type: BLOOD SPECIMENOrdering Facility: [facility] Address: [address] [place] [address] Performed By: #### 2 4323-8 ####LAPINE LABORATORYCLIA [id number] [place] [id number] [place] Urea nitrogen [Mass/Vol] 7 mg/dL Low 9-24 [facility] Comment on above: Order Comment: Speci men Type: BLOOD SPECIMENOrdering Facility: [facility] Address: [address] [place] [address] Performed By: #### 2 4323-8 ####LAPINE LABORATORYCLIA [id number] [place] [address] [place] Ethanol SerPl-mCncon 024 Ethanol [Mass/Vol] mg/dL Normal <11 [facility] Comment on above: Order Comment: Speci men Type: BLOOD SPECIMENOrdering Facility: [facility] Address: [facility] [place] [address] Performed By: #### 5 643-2 ####LAPINE LABORATORYCLIA [id number] [place] [address] [place] HISTORY PHYSICALon HISTORY PHYSICAL Normal [facility] Absolute lymphocyte countOrd ered By: Staci White on 08-21-2023 Lymphocytes Auto (Unsp spec) [#/Vol] 1.76 10*3/uL 0.83-4.51 [facility] Automated lymphocyte count a s percentage of total leukocytesOrdered By: Staci White on 08-21-2023 Lymphocytes/100 WBC Auto (Unsp spec) 22.6 % 19-41 [facility] Basophil percentageOrdered B y: White on 08-21-2023 Basophils/100 WBC (Bld) 0.5 % 0-1 [facility] Bilirubin [Mass/Vol] 0.50 mg/dL 0.20-1.00 [facility] Comment on above: For patients on eltr ombopag therapy, use of [place] TBIL is not recommended. Chloride [Moles/Vol] 108 mmol/L 98-107 [facility] Eosinophils/100 WBC (Bld) 2.6 % 0-5 [facility] Glucose [Mass/Vol] 122 mg/dL 74-106 [facility] Comment on above: Fasting Glucose resu lt from 100 to 125 mg/dL suggests IMPAIRED HOMEOSTASIS per A.D.A. criteria. Hemoglobin (Bld) [Mass/Vol] 7.8 g/dL 13.0-16.5 [facility] Monocytes/100 WBC (Bld) 4.8 % 0-10 [facility] Neutrophils (Bld) [#/Vol] 5.4 10*3/uL 2.0-7.7 [facility] Neutrophils/100 WBC (Bld) 69.2 % 47-70 [facility] Potassium [Moles/Vol] 3.7 mmol/L 3.5-5.1 [facility] Protein [Mass/Vol] 6.9 g/dL 6.4-8.2 [facility] Sodium [Moles/Vol] 138 mmol/L 136-145 [facility] WBC (Bld) [#/Vol] 7.8 10*3/uL 4.4-11.0 [facility] Determination of erythrocyte mean corpuscular volume (MCV)Ordered By: [facility] Kimberly on 08-21-2023 MCV (RBC) [Entitic vol] 83.9 fL 80-94 [facility] Erythrocyte distribution wid th ratioOrdered By: [facility] Kimberly on 08-21-2023 Erythrocyte distribution width (RBC) [Ratio] 17.2 % 11.6-14.6 [facility] Erythrocyte distribution wid th standard deviationOrdered By: [facility] on 08-21-2023 Erythrocyte distribution width (RBC) [Entitic vol] 52.8 fL 35.1-43.9 [facility] Hematocrit Auto (Bld) [Volum e fraction]Ordered By: [facility] Kimberly on 08-21-2023 Hematocrit (Bld) [Volume fraction] 25.1 % 40-54 [facility] Immature granulocytes/100 WB C Auto (Bld)Ordered By: [facility] Kimberly on 08-21-2023 Immature granulocytes/100 WBC (Bld) 0.300 % 0.0-0.9 [facility] Comment on above: IG% - Immature Granu locytes (promyelocytes, myelocytes and metamyelocytes) > 1% indicates that a LEFT SHIFT is Present. Laboratory - Chemistry and C hemistry - challengeOrdered By: [facility] on 08-21-2023 Albumin/Globulin [Mass ratio] 1.0 {ratio} 0.9-2.4 [facility] ALP [Catalytic activity/Vol] 83 U/L 45-117 [facility] ALT [Catalytic activity/Vol] 22 U/L 16-61 [facility] CO2 [Moles/Vol] 23.0 mmol/L 21.0-32.0 [facility] Globulin (S) [Mass/Vol] 3.5 g/dL 2.2-4.2 [facility] Urea nitrogen/Creatinine [Mass ratio] 8.3 mg/mg 10-20 [facility] Laboratory - Hematology and Cell countsOrdered By: Staci Harris on 08-21-2023 MCH (RBC) [Entitic mass] 26.1 pg 27.0-32.0 [facility] MCHC (RBC) [Mass/Vol] 31.1 g/dL 32-36 [facility] Nucleated RBC/100 WBC (Bld) [Ratio] 0 % 0-5 [facility] Platelet mean volume (Bld) [Entitic vol] 9.0 fL 6.2-12.0 [facility] Platelets (Bld) [#/Vol] 428 10*3/uL 150-450 [facility] No Panel InformationOrdered By: Staci Harris on 08-21-2023 Estimated Creatinine Clearance Calc 80.43 ml/min [facility] Estimated GFR (MDRD) Amer 88 mL/min >60 [facility] Comment on above: GFR Calc Estimated GFR (MDRD) Non-Af Amer 73 mL/min >60 [facility] Comment on above: Non- GFR Calc RBC Auto (Bld) [#/Vol]Ordere d By: Staci Harris on 08-21-2023 RBC (Bld) [#/Vol] 2.99 10*6/uL 4.6-6.2 [facility] Serum or plasma calcium stella urement (mass/volume)Ordered By: Staci Harris on 08-21-2023 Calcium [Mass/Vol] 8.6 mg/dL 8.5-10.1 [facility] Serum or plasma creatinine m easurement (mass/volume)Ordered By: Staci Harris on 08-21-2023 Creatinine [Mass/Vol] 1.09 mg/dL 0.70-1.30 [facility] Comment on above: The validity of the calculated GFR & GFRAA in patients over 70 years has not been determined. Clinical correlation is essential. Serum or plasma urea nitroge n measurement (mass/volume)Ordered By: Staci Harris on 08-21-2023 Urea nitrogen [Mass/Vol] 9 mg/dL 7-18 [facility] Thin prep Papanicolaou smear with manual screeningOrdered By: Staci Harris on 08-21-2023 Thin prep Papanicolaou smear with manual screening 3.4 g/dL 3.2-5.0 [facility] Thin prep Papanicolaou smear with manual screening 16 U/L 15-37 [facility] Thin prep Papanicolaou smear with manual screening 7 5-15 [facility] Absolute lymphocyte countOrd ered By: Reid Ponce on 08-18-2023 Lymphocytes Auto (Unsp spec) [#/Vol] 2.19 10*3/uL 0.83-4.51 [facility] Automated lymphocyte count a s percentage of total leukocytesOrdered By: Reid Ponce on 08-18-2023 Lymphocytes/100 WBC Auto (Unsp spec) 25.1 % 19-41 [facility] Basophil percentageOrdered B y: Herbie Coleman on 08-18-2023 Hemoglobin (Bld) [Mass/Vol] 6.1 g/dL 13.0-16.5 [facility] Basophil percentageOrdered B y: Reid Ponce on 08-18-2023 Basophils/100 WBC (Bld) 0.7 % 0-1 [facility] Chloride [Moles/Vol] 109 mmol/L 98-107 [facility] Eosinophils/100 WBC (Bld) 1.4 % 0-5 [facility] Glucose [Mass/Vol] 102 mg/dL 74-106 [facility] Comment on above: Fasting Glucose resu lt from 100 to 125 mg/dL suggests IMPAIRED HOMEOSTASIS per A.D.A. criteria. Monocytes/100 WBC (Bld) 5.1 % 0-10 [facility] Neutrophils (Bld) [#/Vol] 5.9 10*3/uL 2.0-7.7 [facility] Neutrophils/100 WBC (Bld) 67.4 % 47-70 [facility] Potassium [Moles/Vol] 3.8 mmol/L 3.5-5.1 [facility] Sodium [Moles/Vol] 140 mmol/L 136-145 [facility] WBC (Bld) [#/Vol] 8.7 10*3/uL 4.4-11.0 [facility] Determination of erythrocyte mean corpuscular volume (MCV)Ordered By: Reid Ponce on 08-18-2023 MCV (RBC) [Entitic vol] 82.2 fL 80-94 [facility] Erythrocyte distribution wid th ratioOrdered By: Reid Ponce on 08-18-2023 Erythrocyte distribution width (RBC) [Ratio] 16.4 % 11.6-14.6 [facility] Erythrocyte distribution wid th standard deviationOrdered By: Reid Ponce on 08-18-2023 Erythrocyte distribution width (RBC) [Entitic vol] 48.7 fL 35.1-43.9 [facility] Hematocrit Auto (Bld) [Volum e fraction]Ordered By: Herbie Coleman on 08-18-2023 Hematocrit (Bld) [Volume fraction] 19.6 % 40-54 [facility] Immature granulocytes/100 WB C Auto (Bld)Ordered By: Reid Ponce on 08-18-2023 Immature granulocytes/100 WBC (Bld) 0.300 % 0.0-0.9 [facility] Comment on above: IG% - Immature Granu locytes (promyelocytes, myelocytes and metamyelocytes) > 1% indicates that a LEFT SHIFT is Present. Laboratory - Chemistry and C hemistry - challengeOrdered By: Reid Ponce on 08-18-2023 CO2 [Moles/Vol] 26.0 mmol/L 21.0-32.0 [facility] Urea nitrogen/Creatinine [Mass ratio] 19.2 mg/mg 10-20 [facility] Laboratory - Hematology and Cell countsOrdered By: Reid Ponce on 08-18-2023 MCH (RBC) [Entitic mass] 25.7 pg 27.0-32.0 [facility] MCHC (RBC) [Mass/Vol] 31.3 g/dL 32-36 [facility] Comment on above: Delta: 28.3 on 08/16-1555 Nucleated RBC/100 WBC (Bld) [Ratio] 0.2 % 0-5 [facility] Platelet mean volume (Bld) [Entitic vol] 8.9 fL 6.2-12.0 [facility] Platelets (Bld) [#/Vol] 420 10*3/uL 150-450 [facility] No Panel InformationOrdered By: Reid Ponce on 08-18-2023 Estimated Creatinine Clearance Calc 93.26 ml/min [facility] Estimated GFR (MDRD) Amer 105 mL/min >60 [facility] Comment on above: GFR Calc Estimated GFR (MDRD) Non-Af Amer 87 mL/min >60 [facility] Comment on above: Non- GFR Calc RBC Auto (Bld) [#/Vol]Ordere d By: Reid Ponce on 08-18-2023 RBC (Bld) [#/Vol] 2.41 10*6/uL 4.6-6.2 [facility] Serum or plasma calcium stella urement (mass/volume)Ordered By: Reid Ponce on 08-18-2023 Calcium [Mass/Vol] 8.5 mg/dL 8.5-10.1 [facility] Serum or plasma creatinine m easurement (mass/volume)Ordered By: Reid Ponce on 08-18-2023 Creatinine [Mass/Vol] 0.94 mg/dL 0.70-1.30 [facility] Comment on above: The validity of the calculated GFR & GFRAA in patients over 70 years has not been determined. Clinical correlation is essential. Serum or plasma urea nitroge n measurement (mass/volume)Ordered By: Reid Ponce on 08-18-2023 Urea nitrogen [Mass/Vol] 18 mg/dL 7-18 [facility] Thin prep Papanicolaou smear with manual screeningOrdered By: Reid Ponce on 08-18-2023 Thin prep Papanicolaou smear with manual screening 5 5-15 [facility] Basophil percentageOrdered B y: Reid Ponce on 08-17-2023 Bilirubin [Mass/Vol] 0.40 mg/dL 0.20-1.00 [facility] Comment on above: For patients on eltr ombopag therapy, use of [place] TBIL is not recommended. Protein [Mass/Vol] 7.1 g/dL 6.4-8.2 [facility] Blood manual differential co mment interpretation (narrative result)Ordered By: Reid Ponce on 08-17-2023 Manual differential comment Oliver (Bld) [Interp] SCANNED [facility] Comment on above: ANEMIA NOTED Blood polychromasia detectio n by light microscopyOrdered By: Reid Ponce on 08-17-2023 Polychromasia LM Ql (Bld) 1+ [facility] CBC W Auto Differential pane l (Bld)on 08-17-2023 Basophils (Bld) [#/Vol] 0.05 10*3/uL <0.11 k/uL [facility] Basophils/100 WBC (Bld) 0.6 % [facility] Differential cell count method Nom (Bld) Auto [facility] Eosinophils (Bld) [#/Vol] 0.15 10*3/uL <0.46 k/uL [facility] Eosinophils/100 WBC (Bld) 1.7 % [facility] Erythrocyte distribution width (RBC) [Ratio] 17.0 % High 11.5 - 15.0 % [facility] Hematocrit (Bld) [Volume fraction] 17.1 % Low 39.0 - 51.0 % [facility] Hemoglobin (Bld) [Mass/Vol] 5.0 g/dL Critically low 13.0 - 17.0 g/dL [facility] Immature granulocytes (Bld) [#/Vol] 0.04 10*3/uL <0.10 k/uL [facility] Immature granulocytes/100 WBC (Bld) 0.4 % [facility] Lymphocytes (Bld) [#/Vol] 2.34 10*3/uL 1.00 - 4.00 k/uL [facility] Lymphocytes/100 WBC (Bld) 25.9 % [facility] MCH (RBC) [Entitic mass] 23.6 pg Low 26.0 - 34.0 pg [facility] MCHC (RBC) [Mass/Vol] 29.2 g/dL Low 30.5 - 36.0 g/dL [facility] MCV (RBC) [Entitic vol] 80.7 fL 80.0 - 100.0 fL [facility] Monocytes (Bld) [#/Vol] 0.50 10*3/uL <0.87 k/uL [facility] Monocytes/100 WBC (Bld) 5.5 % [facility] Neutrophils (Bld) [#/Vol] 5.97 10*3/uL 1.45 - 7.50 k/uL [facility] Neutrophils/100 WBC (Bld) 65.9 % [facility] Nucleated RBC (Bld) [#/Vol] 0.03 10*3/uL High <0.01 k/uL [facility] Nucleated RBC/100 WBC (Bld) [Ratio] 0.3 /100 WBC [facility] Platelet mean volume (Bld) [Entitic vol] 9.3 fL 9.0 - 12.7 fL [facility] Platelets (Bld) [#/Vol] 479 10*3/uL High 150 - 400 k/uL [facility] RBC (Bld) [#/Vol] 2.12 10*6/uL Low 4.20 - 6.0 0 m/uL [facility] WBC (Bld) [#/Vol] 9.05 10*3/uL 3.70 - 11. 00 k/uL [facility] CNPNon 08-17-2023 CNPN Normal [facility] Comprehensive metabolic 2000 panelon 08-17-2023 Albumin [Mass/Vol] 4.4 g/dL 3.9 - 4.9 g/dL [facility] ALP [Catalytic activity/Vol] 90 U/L 38 - 113 U/L [facility] ALT [Catalytic activity/Vol] 13 U/L 10 - 54 U/L [facility] Anion gap [Moles/Vol] 8 mmol/L Low 9 - 18 mmol/L [facility] AST [Catalytic activity/Vol] 14 U/L 14 - 40 U/L [facility] Bilirubin [Mass/Vol] 0.2 mg/dL 0.2 - 1 .3 mg/dL [facility] Calcium [Mass/Vol] 9.5 mg/dL 8.5 - 10. 2 mg/dL [facility] Chloride [Moles/Vol] 101 mmol/L 97 - 10 5 mmol/L [facility] CO2 [Moles/Vol] 25 mmol/L 22 - 30 mmol/L [facility] Creatinine [Mass/Vol] 0.83 mg/dL 0.73 - 1.22 mg/dL [facility] Estimated Glomerular Filtration Rate 100 mL/min/1.73m >=60 mL/min/1.73m [facility] Glucose [Mass/Vol] 122 mg/dL High 74 - 99 mg/dL [facility] Potassium [Moles/Vol] 4.7 mmol/L 3.7 - 5.1 mmol/L [facility] Protein [Mass/Vol] 7.2 g/dL 6.3 - 8.0 g/dL [facility] Sodium [Moles/Vol] 134 mmol/L Low 136 - 144 mmol/L [facility] Urea nitrogen [Mass/Vol] 20 mg/dL 9 - 24 mg/dL [facility] Direct bilirubinOrdered By: Reid Ponce on 08-17-2023 Bilirubin.direct [Mass/Vol] 0.11 mg/dL 0.00-0.30 [facility] Hypochromatic red blood cell detectionOrdered By: Reid Ponce on 08-17-2023 Hypochromia Ql (Bld) 2+ [facility] Laboratory - Chemistry and C hemistry - challengeOrdered By: Reid Ponce on 08-17-2023 Albumin/Globulin [Mass ratio] 1.0 {ratio} 0.9-2.4 [facility] ALP [Catalytic activity/Vol] 79 U/L 45-117 [facility] ALT [Catalytic activity/Vol] 19 U/L 16-61 [facility] Globulin (S) [Mass/Vol] 3.5 g/dL 2.2-4.2 [facility] Laboratory - Hematology and Cell countsOrdered By: Reid Ponce on 08-17-2023 Anisocytosis Ql (Bld) 1+ [facility] Lower GI hemoglobin IA Ql (S tl)Ordered By: Reid Ponce on 08-17-2023 Stool Occult Blood (VENKATA) Positive [facility] NT PRO BNPon 08-17-2023 Natriuretic peptide.B prohormone N-Terminal [Mass/Vol] 176 pg/mL High <125 pg/mL [facility] Review by pathologistOrdered By: Reid Ponce on 08-17-2023 Pathologist review Oliver (Unsp spec) [Interp] Reviewed [facility] Comment on above: Previous reported re sult: Micaela limon Edited by: CORAL on 08/18/23:[id number] Normocytic anemia.Clinical correlation necessary.Dani Call M.D. 08/18/23 AMENDED REPORT 08/18/23 1037 PATH REV previously reported as: Micaela limon THYROID STIMULATING HORMONEo n 08-17-2023 TSH Qn 3.220 m[IU]/L 0.270 - 4.200 mIU/L [facility] Target cell detectionOrdered By: Reid Ponce on 08-17-2023 Target cells LM Ql (Bld) RARE [facility] Thin prep Papanicolaou smear with manual screeningOrdered By: Reid Ponce on 04-16-2024 Thin prep Papanicolaou smear with manual screening 3.6 g/dL 3.2-5.0 [facility] Thin prep Papanicolaou smear with manual screening 14 U/L 15-37 [facility] Urinalysis complete panel (U )on 08-17-2023 Bacteria LM.HPF (Urine sed) [#/Area] Negative Negative /HPF [facility] Bilirubin Ql (U) Negative Negative [facility] Clarity (Unsp spec) Clear Clear [facility] Color (U) Yellow Yellow [facility] Epithelial cells LM.HPF (Urine sed) [#/Area] None Seen [facility] Glucose Test strip (U) [Mass/Vol] Negative Negative [facility] Hemoglobin Ql (U) Negative Negative [facility] Hyaline casts (Urine sed) [#/Area] 0 /[LPF] 0 /LPF [facility] Ketones Ql (U) Negative Negative [facility] Leukocyte esterase Test strip Ql (U) Trace Abnormal Negative [facility] Nitrite Ql (U) Negative Negative [facility] pH (U) 7.0 [pH] <8.5 [facility] Protein (U) [Mass/Vol] Negative Negative [facility] RBC LM.HPF (Urine sed) [#/Area] 0-2 /HPF 0-2 /HPF [facility] Specific gravity (U) [Rel density] 1.021 1.005 - 1.030 [facility] Urobilinogen Ql (U) 0.2 EU/dL 0.2-1.0 EU/dL [facility] WBC LM.HPF (Urine sed) [#/Area] 0-5 /HPF 0-5 /HPF [facility] XR Chest PA and Lateralon IMPRESSION: No acute radiographic abnormality. Bartacker[facility] Transcribe Date/Time: Aug 17 2023 3:01P Dictated by : MICHELL REEDER MD This examination was interpreted and the report reviewed and electronically signed by: MICHELL REEDER MD on Aug 17 2023 3:01PM [facility] DIVISION OF RADIOLOGY * * *Final Report* * * DATE OF EXAM: Aug 17 2023 2:10PM WOX 5291 - XR CHEST 2V FRONTAL/LAT / PROCEDURE REASON: SOB (shortness of breath) * * * * Physician Interpretation * * * * EXAMINATION: CHEST RADIOGRAPH (2 VIEW FRONTAL & LATERAL) CLINICAL HISTORY: SOB (shortness of breath) MQ: XC2_6 EXAM DATE/TIME: 08/17/2023 2:10 PM COMPARISON: Chest x-ray dated July 22, 2021 RESULT: Lines, tubes, and devices: None. Lungs and pleura: No consolidation. No lung mass. No pleural effusion. No pneumothorax. Cardiomediastinal silhouette: Normal cardiomediastinal silhouette. Bones and soft tissues: Minimal degenerative changes. DIVISION OF RADIOLOGY Provider, [facility] - 08/17/2023 * * *Final Report* * * DATE OF EXAM: Aug 17 2023 2:10PM WOX 5291 - XR CHEST 2V FRONTAL/LAT / PROCEDURE REASON: SOB (shortness of breath) * * * * Physician Interpretation * * * * EXAMINATION: CHEST RADIOGRAPH (2 VIEW FRONTAL & LATERAL) CLINICAL HISTORY: SOB (shortness of breath) MQ: XC2_6 EXAM DATE/TIME: 08/17/2023 2:10 PM COMPARISON: Chest x-ray dated July 22, 2021 RESULT: Lines, tubes, and devices: None. Lungs and pleura: No consolidation. No lung mass. No pleural effusion. No pneumothorax. Cardiomediastinal silhouette: Normal cardiomediastinal silhouette. Bones and soft tissues: Minimal degenerative changes. IMPRESSION IMPRESSION: No acute radiographic abnormality. Bartacker: ANNALISE Transcribe Date/Time: Aug 17 2023 3:01P Dictated by : MICHELL REEDER MD This examination was interpreted and the report reviewed and electronically signed by: MICHELL REEDER MD on Aug 17 2023 3:01PM EST [facility] Radiology Study observation (narrative) [facility] XR Chest PA and LateralOrder ed By: [facility] Provider on 08-17-2023 [facility] [id number] 07-29-2023 [id number] Normal [facility] CBC W Auto Differential pane l (Bld)on 07-29-2023 Basophils (Bld) [#/Vol] 0.09 10*3/uL Normal <0.11 [facility] Comment on above: Order Comment: Speci men Type: BLOOD SPECIMENOrdering Facility: [facility] Address: [address] [place] [address] Performed By: #### 5 7021-8 ####[facility] LABORATORYCLIA [id number] [place] [address] [place] Basophils/100 WBC (Bld) 1.0 % Normal [facility] Comment on above: Order Comment: Speci men Type: BLOOD SPECIMENOrdering Facility: [facility] Address: [address] [place] [address] Performed By: #### 5 7021-8 ####[facility] LABORATORYCLIA [id number] [place] [address] [place] Differential cell count method Nom (Bld) Auto Normal [facility] Comment on above: Order Comment: Speci men Type: BLOOD SPECIMENOrdering Facility: [facility] Address: [address] [place] [address] Performed By: #### 5 7021-8 ####[facility] LABORATORYCLIA [id number] [place] [address] [place] Eosinophils (Bld) [#/Vol] 0.22 10*3/uL Normal <0.46 [facility] Comment on above: Order Comment: Speci men Type: BLOOD SPECIMENOrdering Facility: [facility] Address: [address] [place] [address] Performed By: #### 5 7021-8 ####[facility] LABORATORYCLIA [id number] [address] [place] Eosinophils/100 WBC (Bld) 2.4 % Normal [facility] Comment on above: Order Comment: Speci men Type: BLOOD SPECIMENOrdering Facility: [facility] Address: [address] [place] [address] Performed By: #### 5 7021-8 ####[facility] LABORATORYCLIA [id number] [place] [address] [place] Erythrocyte distribution width (RBC) [Ratio] 16.6 % High 11.5-15.0 [facility] Comment on above: Order Comment: Speci men Type: BLOOD SPECIMENOrdering Facility: [facility] Address: [address] [place] [address] Performed By: #### 5 7021-8 ####[facility] LABORATORYCLIA [id number] [place] [id number] [place] Hematocrit (Bld) [Volume fraction] 35.8 % Low 39.0-51.0 [facility] Comment on above: Order Comment: Speci men Type: BLOOD SPECIMENOrdering Facility: [facility] Address: [address] [place] [address] Performed By: #### 5 7021-8 ####[facility] LABORATORYCLIA [id number] [place] [address] [place] Hemoglobin (Bld) [Mass/Vol] 10.8 g/dL Low 13.0-17.0 [facility] Comment on above: Order Comment: Speci men Type: BLOOD SPECIMENOrdering Facility: [facility] Address: [address] [place] [address] Performed By: #### 5 7021-8 ####[facility] LABORATORYCLIA [id number] [place] [address] [place] Immature granulocytes (Bld) [#/Vol] 0.04 10*3/uL Normal <0.10 [facility] Comment on above: Order Comment: Speci men Type: BLOOD SPECIMENOrdering Facility: [facility] Address: [address] [place] [address] Performed By: #### 5 7021-8 ####[facility] LABORATORYCLIA [id number] [place] [id number] [place] Immature granulocytes/100 WBC (Bld) 0.4 % Normal [facility] Comment on above: Order Comment: Speci men Type: BLOOD SPECIMENOrdering Facility: [facility] Address: [address] [place] [address] Performed By: #### 5 7021-8 ####[facility] LABORATORYCLIA [id number] [place] [id number] [place] Lymphocytes (Bld) [#/Vol] 2.40 10*3/uL Normal 1.00-4.00 [facility] Comment on above: Order Comment: Speci men Type: BLOOD SPECIMENOrdering Facility: [facility] Address: [address] [place] [address] Performed By: #### 5 7021-8 ####[facility] LABORATORYCLIA [id number] [address] [place] Lymphocytes/100 WBC (Bld) 26.5 % Normal [facility] Comment on above: Order Comment: Speci men Type: BLOOD SPECIMENOrdering Facility: [facility] Address: [address] [place] [address] Performed By: #### 5 7021-8 ####[facility] LABORATORYCLIA [id number] [address] MCH (RBC) [Entitic mass] 25.9 pg Low 26.0-34.0 [facility] Comment on above: Order Comment: Speci men Type: BLOOD SPECIMENOrdering Facility: [facility] Address: [address] [place] [address] Performed By: #### 5 7021-8 ####[facility] LABORATORYCLIA [id number] [address] [place] MCHC (RBC) [Mass/Vol] 30.2 g/dL Low 30.5-36.0 [facility] Comment on above: Order Comment: Speci men Type: BLOOD SPECIMENOrdering Facility: [facility] Address: [address] [place] [address] Performed By: #### 5 7021-8 ####[facility] LABORATORYCLIA [id number] [address] [place] [facility] MCV (RBC) [Entitic vol] 85.9 fL Normal 80.0-100.0 [facility] Comment on above: Order Comment: Speci men Type: BLOOD SPECIMENOrdering Facility: [facility] Address: [address] [place] [address] Performed By: #### 5 7021-8 ####[facility] LABORATORYCLIA [id number] [address] [place] Monocytes (Bld) [#/Vol] 0.53 10*3/uL Normal <0.87 [facility] Comment on above: Order Comment: Speci men Type: BLOOD SPECIMENOrdering Facility: [facility] Address: [address] [place] [address] Performed By: #### 5 7021-8 ####[facility] LABORATORYCLIA [id number] [place] [id number] [place] Monocytes/100 WBC (Bld) 5.9 % Normal [facility] Comment on above: Order Comment: Speci men Type: BLOOD SPECIMENOrdering Facility: [facility] Address: [address] [place] [address] Performed By: #### 5 7021-8 ####[facility] LABORATORYCLIA [id number] [place] [id number] [place] Neutrophils (Bld) [#/Vol] 5.77 10*3/uL Normal 1.45-7.50 [facility] Comment on above: Order Comment: Speci men Type: BLOOD SPECIMENOrdering Facility: [facility] Address: [address] [place] [address] Performed By: #### 5 7021-8 ####[facility] LABORATORYCLIA [id number] [place] [id number] [place] Neutrophils/100 WBC (Bld) 63.8 % Normal [facility] Comment on above: Order Comment: Speci men Type: BLOOD SPECIMENOrdering Facility: [facility] Address: [address] [place] [address] Performed By: #### 5 7021-8 ####[facility] LABORATORYCLIA [id number] [place] [id number] [place] Nucleated RBC (Bld) [#/Vol] 10*3/uL Normal <0.01 [facility] Comment on above: Order Comment: Speci men Type: BLOOD SPECIMENOrdering Facility: [facility] Address: [address] [place] [address] Performed By: #### 5 7021-8 ####[facility] LABORATORYCLIA [id number] [place] [id number] [place] Nucleated RBC/100 WBC (Bld) [Ratio] 0.0 /100 WBC Normal [facility] Comment on above: Order Comment: Speci men Type: BLOOD SPECIMENOrdering Facility: [facility] Address: [address] [place] [address] Performed By: #### 5 7021-8 ####[facility] LABORATORYCLIA [id number] [place] [id number] [place] Platelet mean volume (Bld) [Entitic vol] 9.0 fL Normal 9.0-12.7 [facility] Comment on above: Order Comment: Speci men Type: BLOOD SPECIMENOrdering Facility: [facility] Address: [address] [place] [address] Performed By: #### 5 7021-8 ####[facility] LABORATORYCLIA [id number] [place] [address] [place] Platelets (Bld) [#/Vol] 471 10*3/uL High 150-400 [facility] Comment on above: Order Comment: Speci men Type: BLOOD SPECIMENOrdering Facility: [facility] Address: [address] [place] [address] Performed By: #### 5 7021-8 ####[facility] LABORATORYCLIA [id number] [place] [address] [place] RBC (Bld) [#/Vol] 4.17 10*6/uL Low 4.20-6.00 [facility] Comment on above: Order Comment: Speci men Type: BLOOD SPECIMENOrdering Facility: [facility] Address: [address] [place] [address] Performed By: #### 5 7021-8 ####[facility] LABORATORYCLIA [id number] [place] [id number] [place] WBC (Bld) [#/Vol] 9.05 10*3/uL Normal 3.70-11.00 [facility] Comment on above: Order Comment: Speci men Type: BLOOD SPECIMENOrdering Facility: [facility] Address: [address] [place] [address] Performed By: #### 5 7021-8 ####[facility] LABORATORYCLIA [id number] [place] [id number] [place] ECG COMPLETEon 07-29-2023 ECG COMPLETE Normal [facility] HISTORY PHYSICALon HISTORY PHYSICAL Normal [facility] NURSING PROGon 07-29-2023 NURSING PROG Normal [facility] NURSING PROG Normal [facility] OPERATIVE NOon 07-29-2023 OPERATIVE NO Normal [facility] PT panel Coag (PPP)on 2023 INR Coag (PPP) [Relative time] 0.9 {INR} Normal 0.9-1.3 [facility] Comment on above: Order Comment: Speci men Type: BLOOD SPECIMENOrdering Facility: [facility] Address: [address] [place] [address] Result Comment: Isa min K Antagonist (VKA) Therapeutic Range: INR 2 to 3 (Target INR of 2.5)Note: For patients treated with VKA drugs, such as warfarin, the [place] [employer] 2012 Guideline recommends a therapeutic INR range of 2 to 3 (target INR of 2.5). This recommendation includes high-risk patients with antiphospholipid syndrome with previous arterial or venous thromboembolism, current-generation mechanical or bioprosthetic aortic heart valve replacement.Note: Patients with mechanical aortic valve replacement and additional risk factors for thromboembolic events (atrial fibrillation, previous thromboembolism, LV dysfunction, hypercoagulable conditions) or an older generation mechanical AVR (i.e., ball in-Cage) or any mechanical MVR should have a INR therapeutic range of 2.5 to 3.5 (target INR of 3).Saskia GH, et al. Chest 2012, 141:7S-47SNishimura RA, et al. [facility] 2017, 70: 252-289 Performed By: #### 3 4528-0, 43997-7 ####[facility] LABORATORYCLIA [id number] [place] [id number] [place] PT Coag (PPP) [Time] 10.5 s Normal 9.7-13.0 [facility] Comment on above: Order Comment: Speci men Type: BLOOD SPECIMENOrdering Facility: [facility] Address: [address] [place] [address] Performed By: #### 3 4528-0, 99806-8 ####[facility] LABORATORYCLIA [id number] [place] [id number] [place] [facility] aPTT PPPon 07-29-2023 aPTT Coag (PPP) [Time] 33.4 s High 23.0-32.4 [facility] Comment on above: Order Comment: Speci men Type: BLOOD SPECIMENOrdering Facility: [facility] Address: [facility] [place] [address] Performed By: #### 3 4528-0, 33776-0 ####[facility] LABORATORYCLIA [id number] [place] [id number] [place] [facility] CBC W Auto Differential pane l (Bld)on 07-16-2023 Basophils (Bld) [#/Vol] 0.10 10*3/uL <0.11 k/uL [facility] Basophils/100 WBC (Bld) 0.9 % [facility] Differential cell count method Nom (Bld) Auto [facility] Eosinophils (Bld) [#/Vol] 0.28 10*3/uL <0.46 k/uL [facility] Eosinophils/100 WBC (Bld) 2.5 % [facility] Erythrocyte distribution width (RBC) [Ratio] 16.2 % High 11.5 - 15.0 % [facility] Hematocrit (Bld) [Volume fraction] 33.0 % Low 39.0 - 51.0 % [facility] Hemoglobin (Bld) [Mass/Vol] 10.1 g/dL Low 13.0 - 17.0 [facility] Immature granulocytes (Bld) [#/Vol] 0.09 10*3/uL <0.10 k/uL [facility] Immature granulocytes/100 WBC (Bld) 0.8 % [facility] Lymphocytes (Bld) [#/Vol] 3.20 10*3/uL 1.00 - 4.00 k/uL [facility] Lymphocytes/100 WBC (Bld) 29.0 % [facility] MCH (RBC) [Entitic mass] 25.9 pg Low 26.0 - 34.0 pg [facility] MCHC (RBC) [Mass/Vol] 30.6 g/dL 30.5 - 36.0 g/dL [facility] MCV (RBC) [Entitic vol] 84.6 fL 80.0 - 100.0 fL [facility] Monocytes (Bld) [#/Vol] 0.48 10*3/uL <0.87 k/uL [facility] Monocytes/100 WBC (Bld) 4.4 % [facility] Neutrophils (Bld) [#/Vol] 6.87 10*3/uL 1.45 - 7.50 k/uL [facility] Neutrophils/100 WBC (Bld) 62.4 % [facility] Nucleated RBC (Bld) [#/Vol] <0.01 k/uL [facility] Nucleated RBC/100 WBC (Bld) [Ratio] 0.0 /100 WBC [facility] Platelet mean volume (Bld) [Entitic vol] 8.9 fL Low 9.0 - 12.7 fL [facility] Platelets (Bld) [#/Vol] 466 10*3/uL High 150 - 400 k/uL [facility] RBC (Bld) [#/Vol] 3.90 10*6/uL Low 4.20 - 6.0 0 m/uL [facility] WBC (Bld) [#/Vol] 11.02 10*3/uL High 3.70 - 11 .00 k/uL [facility] FERRITIN BLDon 07-16-2023 Ferritin [Mass/Vol] 37.2 ng/mL 30.3 - 5 65.7 ng/mL [facility] Iron and Iron binding capaci ty panelon 07-16-2023 Iron [Mass/Vol] 32 ug/dL Low 41 - 186 ug/dL [facility] Iron binding capacity [Mass/Vol] 401 ug/dL High 232 - 386 ug/dL [facility] Iron/TIBC [Molar ratio] 8.0 % Low 15.0 - 57.0 % [facility] Comprehensive metabolic 2000 panelon 07-01-2023 Albumin [Mass/Vol] 4.4 g/dL 3.9 - 4.9 g/dL [facility] ALP [Catalytic activity/Vol] 113 U/L 38 - 113 U/L [facility] ALT [Catalytic activity/Vol] 11 U/L 10 - 54 U/L [facility] Anion gap [Moles/Vol] 13 mmol/L 9 - 18 mmol/L [facility] AST [Catalytic activity/Vol] 16 U/L 14 - 40 U/L [facility] Bilirubin [Mass/Vol] 0.2 mg/dL 0.2 - 1 .3 mg/dL [facility] Calcium [Mass/Vol] 9.8 mg/dL 8.5 - 10. 2 mg/dL [facility] Chloride [Moles/Vol] 101 mmol/L 97 - 10 5 mmol/L [facility] CO2 [Moles/Vol] 24 mmol/L 22 - 30 mmol/L [facility] Creatinine [Mass/Vol] 0.94 mg/dL 0.73 - 1.22 mg/dL [facility] Estimated Glomerular Filtration Rate 92 mL/min/1.73m >=60 mL/min/1.73m [facility] Glucose [Mass/Vol] 96 mg/dL 74 - 99 mg/dL [facility] Potassium [Moles/Vol] 4.3 mmol/L 3.7 - 5.1 mmol/L [facility] Protein [Mass/Vol] 7.9 g/dL 6.3 - 8.0 g/dL [facility] Sodium [Moles/Vol] 138 mmol/L 136 - 144 mmol/L [facility] Urea nitrogen [Mass/Vol] 14 mg/dL 9 - 24 mg/dL [facility] FERRITIN BLDon 07-01-2023 Ferritin [Mass/Vol] 105.0 ng/mL 30.3 - 5 65.7 ng/mL [facility] Iron and Iron binding capaci ty panelon 07-01-2023 Iron [Mass/Vol] 28 ug/dL Low 41 - 186 ug/dL [facility] Iron binding capacity [Mass/Vol] 400 ug/dL High 232 - 386 ug/dL [facility] Iron/TIBC [Molar ratio] 7.0 % Low 15.0 - 57.0 % [facility] MAGNESIUM BLDon 07-01-2023 Magnesium [Mass/Vol] 2.4 mg/dL High 1.7 - 2 .3 mg/dL [facility] VITAMIN B12 BLOODon 07-01-19 Cobalamin (Vitamin B12) [Mass/Vol] 542 pg/mL 232 - 1,245 pg/mL [facility] Absolute lymphocyte countOrd ered By: Pascale Soto on 06-25-2023 Lymphocytes Auto (Unsp spec) [#/Vol] 2.25 10*3/uL 0.83-4.51 [facility] Automated lymphocyte count a s percentage of total leukocytesOrdered By: Pascale Montalvonae on 06-25-2023 Lymphocytes/100 WBC Auto (Unsp spec) 30.8 % 19-41 [facility] Basophil percentageOrdered B y: Pascale Montalvonae on 06-25-2023 Basophils/100 WBC (Bld) 1.2 % 0-1 [facility] Chloride [Moles/Vol] 109 mmol/L 98-107 [facility] Eosinophils/100 WBC (Bld) 4.2 % 0-5 [facility] Glucose [Mass/Vol] 122 mg/dL 74-106 [facility] Comment on above: Fasting Glucose resu lt from 100 to 125 mg/dL suggests IMPAIRED HOMEOSTASIS per A.D.A. criteria. Hemoglobin (Bld) [Mass/Vol] 7.5 g/dL 13.0-16.5 [facility] Monocytes/100 WBC (Bld) 5.8 % 0-10 [facility] Neutrophils (Bld) [#/Vol] 4.2 10*3/uL 2.0-7.7 [facility] Neutrophils/100 WBC (Bld) 57.7 % 47-70 [facility] Potassium [Moles/Vol] 3.7 mmol/L 3.5-5.1 [facility] Sodium [Moles/Vol] 141 mmol/L 136-145 [facility] WBC (Bld) [#/Vol] 7.3 10*3/uL 4.4-11.0 [facility] Determination of erythrocyte mean corpuscular volume (MCV)Ordered By: Pascale Soto on 06-25-2023 MCV (RBC) [Entitic vol] 91.3 fL 80-94 [facility] Erythrocyte distribution wid th ratioOrdered By: [facility] on 06-25-2023 Erythrocyte distribution width (RBC) [Ratio] 16.2 % 11.6-14.6 [facility] Erythrocyte distribution wid th standard deviationOrdered By: Pascalesaud Soto on 06-25-2023 Erythrocyte distribution width (RBC) [Entitic vol] 54.7 fL 35.1-43.9 [facility] Hematocrit Auto (Bld) [Volum e fraction]Ordered By: Pascale Soto on 06-25-2023 Hematocrit (Bld) [Volume fraction] 25.2 % 40-54 [facility] Hemoglobin in reticulocytes (mass per reticulocyte)Ordered By: John Reyes on 06-25-2023 Hemoglobin (Reticulocytes) [Entitic mass] 21.9 pg 30-35 [facility] Comment on above: Previous reported re sult: 20.8 pgEdited by: TPHDISHA on 06/25/23:1304 AMENDED REPORT 06/25/23 1304 RET-HE previously reported as: 20.8 L pg Immature granulocytes/100 WB C Auto (Bld)Ordered By: Pascale Soto on 06-25-2023 Immature granulocytes/100 WBC (Bld) 0.300 % 0.0-0.9 [facility] Comment on above: IG% - Immature Granu locytes (promyelocytes, myelocytes and metamyelocytes) > 1% indicates that a LEFT SHIFT is Present. Iron measurement (mass/mass) Ordered By: John Reyes on 06-25-2023 Iron (Unsp spec) [Mass/Mass] 14 ug/dL 65-175 [facility] Laboratory - Chemistry and C hemistry - challengeOrdered By: Pascale Soto on 06-25-2023 CO2 [Moles/Vol] 27.0 mmol/L 21.0-32.0 [facility] Urea nitrogen/Creatinine [Mass ratio] 6.9 mg/mg 10-20 [facility] Laboratory - Chemistry and C hemistry - challengeOrdered By: John Reyes on 06-25-2023 Ferritin [Mass/Vol] 23 ng/mL 26-388 [facility] - Hematology and Cell countsOrdered By: Pascale Soto on 06-25-2023 MCH (RBC) [Entitic mass] 27.2 pg 27.0-32.0 [facility] MCHC (RBC) [Mass/Vol] 29.8 g/dL 32-36 [facility] Nucleated RBC/100 WBC (Bld) [Ratio] 0 % 0-5 [facility] Platelet mean volume (Bld) [Entitic vol] 9.1 fL 6.2-12.0 [facility] Platelets (Bld) [#/Vol] 570 10*3/uL 150-450 [facility] No Panel InformationOrdered By: Pascale Soto on 06-25-2023 Estimated Creatinine Clearance Calc 85.95 ml/min [facility] Estimated GFR (MDRD) Amer 95 mL/min >60 [facility] Comment on above: GFR Calc Estimated GFR (MDRD) Non-Af Amer 79 mL/min >60 [facility] Comment on above: Non- GFR Calc No Panel InformationOrdered By: John Reyes on 06-25-2023 Immature Reticulocyte Fraction 10.50 % 3.00-15.90 [facility] Comment on above: Previous reported re sult: 21.90 %Edited by: Vital MetrixDISHA on 06/25/23:1304 AMENDED REPORT 06/25/23 1304 IM RET FRACTION previously reported as: 21.90 H % Total Iron Binding Capacity 350 ug/dL 250-450 [facility] RBC Auto (Bld) [#/Vol]Ordere d By: Pascale Soto on 06-25-2023 RBC (Bld) [#/Vol] 2.76 10*6/uL 4.6-6.2 [facility] Reticulocytes Auto (Bld) [#/ Vol]Ordered By: John Reyes on 06-25-2023 Reticulocytes/100 RBC (Bld) 4.79 % 0.5-1.5 [facility] Comment on above: Previous reported re sult: 2.99 %Edited by: Vital MetrixDISHA on 06/25/23:1304 AMENDED REPORT 06/25/23 1304 RETIC previously reported as: 2.99 H % Serum or plasma calcium stella urement (mass/volume)Ordered By: Pascale Soto on 06-25-2023 Calcium [Mass/Vol] 8.5 mg/dL 8.5-10.1 [facility] Serum or plasma creatinine m easurement (mass/volume)Ordered By: Pascale Soto on 06-25-2023 Creatinine [Mass/Vol] 1.02 mg/dL 0.70-1.30 [facility] Comment on above: The validity of the calculated GFR & GFRAA in patients over 70 years has not been determined. Clinical correlation is essential. Serum or plasma iron saturat ion measurement (mass fraction)Ordered By: John Reyes on 06-25-2023 Iron saturation [Mass fraction] 4.0 % 15.0-55.0 [facility] Serum or plasma urea nitroge n measurement (mass/volume)Ordered By: Pascale Soto on 06-25-2023 Urea nitrogen [Mass/Vol] 7 mg/dL 7-18 [facility] Thin prep Papanicolaou smear with manual screeningOrdered By: Pascale Soto on 06-25-2023 Thin prep Papanicolaou smear with manual screening 5 5-15 [facility] Thin prep Papanicolaou smear with manual screeningOrdered By: Pascale Soto on 06-23-2023 Thin prep Papanicolaou smear with manual screening 97 mg/dL 74-106 [facility] Comment on above: MANAGEMENT OF PATIEN T CARE PER NURSING PROTOCOL Activated partial thrombopla stin time (aPTT) in platelet poor plasma by coagulation aOrdered By: John Reyes on 06-22-2023 aPTT Coag (PPP) [Time] 44.1 s 24.1-36.2 [facility] Laboratory - CoagulationOrde red By: John Reyes on 06-22-2023 INR Coag (Bld) [Relative time] 1.2 {INR} [facility] PT Coag (PPP) [Time] 14.8 s 11.7-14.9 [facility] Basophil percentageOrdered B y: Devon Cutler on 06-20-2023 Basophil percentage 4.5 mg/dL 2.5-4.9 [facility] Bilirubin [Mass/Vol] 0.60 mg/dL 0.20-1.00 [facility] Comment on above: For patients on eltr ombopag therapy, use of Dimension [place] TBIL is not recommended. Protein [Mass/Vol] 7.1 g/dL 6.4-8.2 [facility] Direct bilirubinOrdered By: Devon Cutler on 06-20-2023 Bilirubin.direct [Mass/Vol] 0.17 mg/dL 0.00-0.30 [facility] Laboratory - Chemistry and C hemistry - challengeOrdered By: Devon Cutler on 06-20-2023 Albumin/Globulin [Mass ratio] 1.0 {ratio} 0.9-2.4 [facility] ALP [Catalytic activity/Vol] 93 U/L 45-117 [facility] ALT [Catalytic activity/Vol] 19 U/L 16-61 [facility] Globulin (S) [Mass/Vol] 3.6 g/dL 2.2-4.2 [facility] Magnesium [Mass/Vol] 2.2 mg/dL 1.6-2.6 [facility] Thin prep Papanicolaou smear with manual screeningOrdered By: Devon Cutler on 06-20-2023 Thin prep Papanicolaou smear with manual screening 3.5 g/dL 3.2-5.0 [facility] Thin prep Papanicolaou smear with manual screening 21 U/L 15-37 [facility] Absolute lymphocyte countOrd ered By: Murrayferoz Sanchez on 06-19-2023 Lymphocytes Auto (Unsp spec) [#/Vol] 2.74 10*3/uL 0.83-4.51 [facility] Automated lymphocyte count a s percentage of total leukocytesOrdered By: Murray Sanchez on 06-19-2023 Lymphocytes/100 WBC Auto (Unsp spec) 28.7 % 19-41 [facility] Basophil percentageOrdered B y: Murray Sanchez on 06-19-2023 Basophils/100 WBC (Bld) 0.8 % 0-1 [facility] Chloride [Moles/Vol] 107 mmol/L 98-107 [facility] Eosinophils/100 WBC (Bld) 3.8 % 0-5 [facility] Glucose [Mass/Vol] 111 mg/dL 74-106 [facility] Comment on above: Fasting Glucose resu lt from 100 to 125 mg/dL suggests IMPAIRED HOMEOSTASIS per A.D.A. criteria. Hemoglobin (Bld) [Mass/Vol] 5.7 g/dL 13.0-16.5 [facility] Comment on above: CRITICAL VALUE VERIF IED. CALLED TO Ne Schmitt06/19/23 1254 [facility].RESULTS READ BACK BY SAME. Lactate [Moles/Vol] 1.1 mmol/L 0.4-2.0 [facility] Monocytes/100 WBC (Bld) 4.6 % 0-10 [facility] Neutrophils (Bld) [#/Vol] 5.9 10*3/uL 2.0-7.7 [facility] Neutrophils/100 WBC (Bld) 61.4 % 47-70 [facility] Potassium [Moles/Vol] 3.7 mmol/L 3.5-5.1 [facility] Sodium [Moles/Vol] 137 mmol/L 136-145 [facility] WBC (Bld) [#/Vol] 9.6 10*3/uL 4.4-11.0 [facility] Determination of erythrocyte mean corpuscular volume (MCV)Ordered By: Murray Sanchez on 06-19-2023 MCV (RBC) [Entitic vol] 88.4 fL 80-94 [facility] Erythrocyte distribution wid th ratioOrdered By: Murrayferoz Sanchez on 06-19-2023 Erythrocyte distribution width (RBC) [Ratio] 16.3 % 11.6-14.6 [facility] Erythrocyte distribution wid th standard deviationOrdered By: Murrayferoz Sanchez on 06-19-2023 Erythrocyte distribution width (RBC) [Entitic vol] 52.2 fL 35.1-43.9 [facility] Hematocrit Auto (Bld) [Volum e fraction]Ordered By: Murrayferoz Sanchez on 06-19-2023 Hematocrit (Bld) [Volume fraction] 19.8 % 40-54 [facility] Immature granulocytes/100 WB C Auto (Bld)Ordered By: Murrayferoz Sanchez on 06-19-2023 Immature granulocytes/100 WBC (Bld) 0.700 % 0.0-0.9 [facility] Comment on above: IG% - Immature Granu locytes (promyelocytes, myelocytes and metamyelocytes) > 1% indicates that a LEFT SHIFT is Present. Laboratory - Chemistry and C hemistry - challengeOrdered By: Murrayferoz Sanchez on 06-19-2023 CO2 [Moles/Vol] 25.0 mmol/L 21.0-32.0 [facility] Urea nitrogen/Creatinine [Mass ratio] 22.7 mg/mg 10-20 [facility] Laboratory - Hematology and Cell countsOrdered By: Murrayferoz Sanchez on 06-19-2023 MCH (RBC) [Entitic mass] 25.4 pg 27.0-32.0 [facility] MCHC (RBC) [Mass/Vol] 28.8 g/dL 32-36 [facility] Nucleated RBC/100 WBC (Bld) [Ratio] 0 % 0-5 [facility] Platelet mean volume (Bld) [Entitic vol] 9.1 fL 6.2-12.0 [facility] Platelets (Bld) [#/Vol] 566 10*3/uL 150-450 [facility] Lower GI hemoglobin IA Ql (S tl)Ordered By: Murray Sanchez on 06-19-2023 Stool Occult Blood (VENKATA) Positive [facility] Stool Occult Blood (VENKATA) Positive [facility] No Panel InformationOrdered By: Murray Sanchez on 06-19-2023 Estimated Creatinine Clearance Calc 95.29 ml/min [facility] Estimated GFR (MDRD) Amer 107 mL/min >60 [facility] Comment on above: GFR Calc Estimated GFR (MDRD) Non-Af Amer 88 mL/min >60 [facility] Comment on above: Non- GFR Calc RBC Auto (Bld) [#/Vol]Ordere d By: Murray Sanchez on 06-19-2023 RBC (Bld) [#/Vol] 2.24 10*6/uL 4.6-6.2 [facility] Review by pathologistOrdered By: Murray Sanchez on 06-19-2023 Pathologist review Oliver (Unsp spec) [Interp] Micaela limon [facility] Pathologist review Oliver (Unsp spec) [Interp] Reviewed [facility] Comment on above: Previous reported re sult: Micaela limon Edited by: RGOOD on 06/22/23:1021Severe Normocytic anemia.Thrombocytosis.Clinical correlation necessary.Dani Call M.D. 06/22/23 AMENDED REPORT 06/22/23 1021 PATH REV previously reported as: Micaela limon Serum or plasma calcium stella urement (mass/volume)Ordered By: Murray Sanchez on 06-19-2023 Calcium [Mass/Vol] 8.3 mg/dL 8.5-10.1 [facility] Serum or plasma creatinine m easurement (mass/volume)Ordered By: Murray Sanchez on 06-19-2023 Creatinine [Mass/Vol] 0.92 mg/dL 0.70-1.30 [facility] Comment on above: The validity of the calculated GFR & GFRAA in patients over 70 years has not been determined. Clinical correlation is essential. Serum or plasma urea nitroge n measurement (mass/volume)Ordered By: Murray Sanchez on 06-19-2023 Urea nitrogen [Mass/Vol] 21 mg/dL 7-18 [facility] Thin prep Papanicolaou smear with manual screeningOrdered By: Murray Sanchez on 06-19-2023 Thin prep Papanicolaou smear with manual screening 5 5-15 [facility] Absolute lymphocyte countOrd ered By: Matheus Granados on 06-09-2023 Lymphocytes Auto (Unsp spec) [#/Vol] 2.01 10*3/uL 0.83-4.51 [facility] Activated partial thrombopla stin time (aPTT) in platelet poor plasma by coagulation aOrdered By: Matheus Granados on 06-09-2023 aPTT Coag (PPP) [Time] 39.2 s 24.1-36.2 [facility] Automated lymphocyte count a s percentage of total leukocytesOrdered By: Matheus Granados on 06-09-2023 Lymphocytes/100 WBC Auto (Unsp spec) 22.2 % 19-41 [facility] Basophil percentageOrdered B y: Matheus Granados on 06-09-2023 Basophils/100 WBC (Bld) 1.0 % 0-1 [facility] Chloride [Moles/Vol] 108 mmol/L 98-107 [facility] Eosinophils/100 WBC (Bld) 5.4 % 0-5 [facility] Glucose [Mass/Vol] 95 mg/dL 74-106 [facility] Hemoglobin (Bld) [Mass/Vol] 7.3 g/dL 13.0-16.5 [facility] Monocytes/100 WBC (Bld) 5.3 % 0-10 [facility] Neutrophils (Bld) [#/Vol] 6.0 10*3/uL 2.0-7.7 [facility] Neutrophils/100 WBC (Bld) 65.8 % 47-70 [facility] Potassium [Moles/Vol] 3.5 mmol/L 3.5-5.1 [facility] Sodium [Moles/Vol] 136 mmol/L 136-145 [facility] WBC (Bld) [#/Vol] 9.1 10*3/uL 4.4-11.0 [facility] Determination of erythrocyte mean corpuscular volume (MCV)Ordered By: Matheus Granados on 06-09-2023 MCV (RBC) [Entitic vol] 87.6 fL 80-94 [facility] Erythrocyte distribution wid th ratioOrdered By: Matheus Granados on 06-09-2023 Erythrocyte distribution width (RBC) [Ratio] 15.3 % 11.6-14.6 [facility] Erythrocyte distribution wid th standard deviationOrdered By: Matheus Granados on 06-09-2023 Erythrocyte distribution width (RBC) [Entitic vol] 49.0 fL 35.1-43.9 [facility] Hematocrit Auto (Bld) [Volum e fraction]Ordered By: Matheus Granados on 06-09-2023 Hematocrit (Bld) [Volume fraction] 23.3 % 40-54 [facility] Immature granulocytes/100 WB C Auto (Bld)Ordered By: Matheus Granados on 06-09-2023 Immature granulocytes/100 WBC (Bld) 0.300 % 0.0-0.9 [facility] Comment on above: IG% - Immature Granu locytes (promyelocytes, myelocytes and metamyelocytes) > 1% indicates that a LEFT SHIFT is Present. Laboratory - Chemistry and C hemistry - challengeOrdered By: Matheus Granados on 06-09-2023 CO2 [Moles/Vol] 25.0 mmol/L 21.0-32.0 [facility] Urea nitrogen/Creatinine [Mass ratio] 11.7 mg/mg 10-20 [facility] Laboratory - CoagulationOrde red By: Matheus Granados on 06-09-2023 INR Coag (Bld) [Relative time] 1.1 {INR} [facility] PT Coag (PPP) [Time] 14.4 s 11.7-14.9 [facility] Laboratory - Hematology and Cell countsOrdered By: Matheus Granados on 06-09-2023 MCH (RBC) [Entitic mass] 27.4 pg 27.0-32.0 [facility] MCHC (RBC) [Mass/Vol] 31.3 g/dL 32-36 [facility] Nucleated RBC/100 WBC (Bld) [Ratio] 0 % 0-5 [facility] Platelet mean volume (Bld) [Entitic vol] 8.6 fL 6.2-12.0 [facility] Platelets (Bld) [#/Vol] 490 10*3/uL 150-450 [facility] No Panel InformationOrdered By: Matheus Granados on 06-09-2023 Estimated Creatinine Clearance Calc 82.66 ml/min [facility] Estimated GFR (MDRD) Amer 94 mL/min >60 [facility] Comment on above: GFR Calc Estimated GFR (MDRD) Non-Af Amer 78 mL/min >60 [facility] Comment on above: Non- GFR Calc RBC Auto (Bld) [#/Vol]Ordere d By: Matheus Granados on 06-09-2023 RBC (Bld) [#/Vol] 2.66 10*6/uL 4.6-6.2 [facility] Serum or plasma calcium stella urement (mass/volume)Ordered By: Matheus Granados on 06-09-2023 Calcium [Mass/Vol] 8.6 mg/dL 8.5-10.1 [facility] Serum or plasma creatinine m easurement (mass/volume)Ordered By: Matheus Granados on 06-09-2023 Creatinine [Mass/Vol] 1.03 mg/dL 0.70-1.30 [facility] Comment on above: The validity of the calculated GFR & GFRAA in patients over 70 years has not been determined. Clinical correlation is essential. Serum or plasma urea nitroge n measurement (mass/volume)Ordered By: Matheus Granados on 06-09-2023 Urea nitrogen [Mass/Vol] 12 mg/dL 7-18 [facility] Thin prep Papanicolaou smear with manual screeningOrdered By: Matheus Granados on 06-09-2023 Thin prep Papanicolaou smear with manual screening 3 5-15 [facility] Serum or plasma thyroid stim ulating hormone (TSH) measurement (units/volume)Ordered By: Amber Gonzalez on 06-08-2023 TSH Qn 6.58 uIU/mL 0.358-3.74 [facility] Absolute lymphocyte countOrd ered By: Reid Kris on 06-07-2023 Lymphocytes Auto (Unsp spec) [#/Vol] 2.30 10*3/uL 0.83-4.51 [facility] Activated partial thrombopla stin time (aPTT) in platelet poor plasma by coagulation aOrdered By: Reid Ponce on 06-07-2023 aPTT Coag (PPP) [Time] 42.6 s 24.1-36.2 [facility] Automated lymphocyte count a s percentage of total leukocytesOrdered By: Reid Ponce on 06-07-2023 Lymphocytes/100 WBC Auto (Unsp spec) 18.2 % 19-41 [facility] Basophil percentageOrdered B y: Reid Ponce on 06-07-2023 Bilirubin [Mass/Vol] 0.40 mg/dL 0.20-1.00 [facility] Comment on above: For patients on eltr ombopag therapy, use of Dimension [place] TBIL is not recommended. Chloride [Moles/Vol] 107 mmol/L 98-107 [facility] Glucose [Mass/Vol] 114 mg/dL 74-106 [facility] Comment on above: Fasting Glucose resu lt from 100 to 125 mg/dL suggests IMPAIRED HOMEOSTASIS per A.D.A. criteria. Potassium [Moles/Vol] 3.9 mmol/L 3.5-5.1 [facility] Protein [Mass/Vol] 7.8 g/dL 6.4-8.2 [facility] Sodium [Moles/Vol] 139 mmol/L 136-145 [facility] Basophils/100 WBC (Bld) 0.6 % 0-1 [facility] Eosinophils/100 WBC (Bld) 1.6 % 0-5 [facility] Hemoglobin (Bld) [Mass/Vol] 5.4 g/dL 13.0-16.5 [facility] Comment on above: CRITICAL VALUE VERIF IED. CALLED TO ALONSO BLANCO06/07/23 1410 Niya Torres.RESULTS READ BACK BY SAME . Monocytes/100 WBC (Bld) 4.2 % 0-10 [facility] Neutrophils (Bld) [#/Vol] 9.5 10*3/uL 2.0-7.7 [facility] Neutrophils/100 WBC (Bld) 74.8 % 47-70 [facility] WBC (Bld) [#/Vol] 12.6 10*3/uL 4.4-11.0 [facility] Determination of erythrocyte mean corpuscular volume (MCV)Ordered By: Reid Ponce on 06-07-2023 MCV (RBC) [Entitic vol] 86.5 fL 80-94 [facility] Direct bilirubinOrdered By: Reid Ponce on 06-07-2023 Bilirubin.direct [Mass/Vol] 0.10 mg/dL 0.00-0.30 [facility] Erythrocyte distribution wid th ratioOrdered By: Reid Ponce on 06-07-2023 Erythrocyte distribution width (RBC) [Ratio] 15.3 % 11.6-14.6 [facility] Erythrocyte distribution wid th standard deviationOrdered By: Reid Ponce on 06-07-2023 Erythrocyte distribution width (RBC) [Entitic vol] 48.1 fL 35.1-43.9 [facility] Hematocrit Auto (Bld) [Volum e fraction]Ordered By: Reid Ponce on 06-07-2023 Hematocrit (Bld) [Volume fraction] 18.0 % 40-54 [facility] Immature granulocytes/100 WB C Auto (Bld)Ordered By: Reid Ponce on 06-07-2023 Immature granulocytes/100 WBC (Bld) 0.600 % 0.0-0.9 [facility] Comment on above: IG% - Immature Granu locytes (promyelocytes, myelocytes and metamyelocytes) > 1% indicates that a LEFT SHIFT is Present. International normalized rat io (INR) calculationOrdered By: Reid Ponce on 06-07-2023 INR Coag (PPP) [Relative time] 1.3 {INR} [facility] Laboratory - Chemistry and C hemistry - challengeOrdered By: Reid Ponce on 06-07-2023 ALP [Catalytic activity/Vol] 91 U/L 45-117 [facility] ALT [Catalytic activity/Vol] 23 U/L 16-61 [facility] CO2 [Moles/Vol] 22.0 mmol/L 21.0-32.0 [facility] Globulin (S) [Mass/Vol] 4.4 g/dL 2.2-4.2 [facility] Lipase [Catalytic activity/Vol] 30 U/L 13-75 [facility] Comment on above: Please note:LIPASE r evised reference range effective 22. New Lipase methodology. Expected to produce lower values than the previous assay method. NEW Reference Range: 13 - 75 U/L Urea nitrogen/Creatinine [Mass ratio] 13.9 mg/mg 10-20 [facility] Laboratory - CoagulationOrde red By: Reid Ponce on 06-07-2023 PT Coag (PPP) [Time] 16.2 s 11.7-14.9 [facility] Laboratory - Hematology and Cell countsOrdered By: Reid Ponce on 06-07-2023 MCH (RBC) [Entitic mass] 26.0 pg 27.0-32.0 [facility] MCHC (RBC) [Mass/Vol] 30.0 g/dL 32-36 [facility] Nucleated RBC/100 WBC (Bld) [Ratio] 0.2 % 0-5 [facility] Platelets (Bld) [#/Vol] 588 10*3/uL 150-450 [facility] Lower GI hemoglobin IA Ql (S tl)Ordered By: Reid Ponce on 06-07-2023 Stool Occult Blood (VENKATA) Positive [facility] Stool Occult Blood (VENKATA) Positive [facility] No Panel InformationOrdered By: Reid Ponce on 06-07-2023 Estimated GFR (MDRD) Amer 89 mL/min >60 [facility] Comment on above: GFR Calc Estimated GFR (MDRD) Non-Af Amer 74 mL/min >60 [facility] Comment on above: Non- GFR Calc Troponin I High Sensitivity 7 pg/mL 3.0-78.0 [facility] Comment on above: Please Note: New Vicki t Units and Gender Specific Reference Ranges. For more information see Policy Stat Procedure [place] High Sensitivity Troponin (TNIH) and attachments. Platelet mean volume Santosh-Ec ker (Bld) [Entitic vol]Ordered By: Reid Ponce on 06-07-2023 Platelet mean volume (Bld) [Entitic vol] 8.7 fL 6.2-12.0 [facility] RBC Auto (Bld) [#/Vol]Ordere d By: Reid Ponce on 06-07-2023 RBC (Bld) [#/Vol] 2.08 10*6/uL 4.6-6.2 [facility] Review by pathologistOrdered By: Reid Ponce on 06-07-2023 Pathologist review Oliver (Unsp spec) [Interp] August braxton [facility] Pathologist review Oliver (Unsp spec) [Interp] Reviewed [facility] Comment on above: Previous reported re sult: August braxton Edited by: RGOSUKUMAR on 06/08/23:1255Neutrophilic leukocytosis.Severe Normocytic anemia.Clinical correlation necessary.Dani Call M.D. 06/08/23 AMENDED REPORT 06/08/23 1255 PATH REV previously reported as: August braxton Serum or plasma calcium stella urement (mass/volume)Ordered By: Reid Ponce on 06-07-2023 Calcium [Mass/Vol] 9.1 mg/dL 8.5-10.1 [facility] Serum or plasma creatinine m easurement (mass/volume)Ordered By: Reid Ponce on 06-07-2023 Creatinine [Mass/Vol] 1.08 mg/dL 0.70-1.30 [facility] Comment on above: The validity of the calculated GFR & GFRAA in patients over 70 years has not been determined. Clinical correlation is essential. Serum or plasma urea nitroge n measurement (mass/volume)Ordered By: Reid Ponce on 06-07-2023 Urea nitrogen [Mass/Vol] 15 mg/dL 7-18 [facility] Thin prep Papanicolaou smear with manual screeningOrdered By: Reid Ponce on 06-07-2023 Thin prep Papanicolaou smear with manual screening 3.4 g/dL 3.2-5.0 [facility] Thin prep Papanicolaou smear with manual screening 10 U/L 15-37 [facility] Thin prep Papanicolaou smear with manual screening 10 5-15 [facility] Bacteria identified Anaer cx Nom (Unsp spec)on 06-02-2023 Microorganism identified Cx Nom (Unsp spec) Few Mixed anaerobic rex Abnormal [facility] ABSCESS AND WOUND CULTURE WI TH GRAM STAINon 05-30-2023 Bacteria identified Cx Nom (Wound) Many Staphylococcus aureus Abnormal [facility] Bacteria identified Cx Nom ( Wound)on 05-30-2023 Microscopic observation Smear Nom (Unsp spec) Positive Abnormal [facility] Microscopic observation Smear Nom (Unsp spec) Rare Polymorphonuclear leukocytes Abnormal [facility] ABSCESS AND WOUND CULTURE WI TH GRAM STAINon 05-27-2023 Bacteria identified Cx Nom (Wound) Invalid Interpretation Code [facility] CASE MANAGEMon 05-19-2023 CASE MANAGEM Normal [facility] CBC panel Auto (Bld)on 05-19 Erythrocyte distribution width (RBC) [Ratio] 13.9 % Normal 11.5-15.0 [facility] Comment on above: Order Comment: Speci men Type: BLOOD SPECIMENOrdering Facility: [facility] Address: [address] [place] [address] Performed By: #### 5 8410-2 ####[facility] LABORATORYCLIA [id number] [place] [address] [place] Hematocrit (Bld) [Volume fraction] 23.6 % Low 39.0-51.0 [facility] Comment on above: Order Comment: Speci men Type: BLOOD SPECIMENOrdering Facility: [facility] Address: [address] [place] [address] Performed By: #### 5 8410-2 ####[facility] LABORATORYCLIA [id number] [place] [address] [place] Hemoglobin (Bld) [Mass/Vol] 7.7 g/dL Low 13.0-17.0 [facility] Comment on above: Order Comment: Speci men Type: BLOOD SPECIMENOrdering Facility: [facility] Address: [address] [place] [address] Performed By: #### 5 8410-2 ####[facility] LABORATORYCLIA [id number] [place] [id number] [place] MCH (RBC) [Entitic mass] 30.1 pg Normal 26.0-34.0 [facility] Comment on above: Order Comment: Speci men Type: BLOOD SPECIMENOrdering Facility: [facility] Address: [address] [place] [address] Performed By: #### 5 8410-2 ####[facility] LABORATORYCLIA [id number] [place] [address] [place] MCHC (RBC) [Mass/Vol] 32.6 g/dL Normal 30.5-36.0 [facility] Comment on above: Order Comment: Speci men Type: BLOOD SPECIMENOrdering Facility: [facility] Address: [address] [place] [address] Performed By: #### 5 8410-2 ####[facility] LABORATORYCLIA [id number] [place] [id number] [place] MCV (RBC) [Entitic vol] 92.2 fL Normal 80.0-100.0 [facility] Comment on above: Order Comment: Speci men Type: BLOOD SPECIMENOrdering Facility: [facility] Address: [address] [place] [address] Performed By: #### 5 8410-2 ####[facility] LABORATORYCLIA [id number] [place] [address] [place] Nucleated RBC (Bld) [#/Vol] 10*3/uL Normal <0.01 [facility] Comment on above: Order Comment: Speci men Type: BLOOD SPECIMENOrdering Facility: [facility] Address: [address] [place] [address] Performed By: #### 5 8410-2 ####[facility] LABORATORYCLIA [id number] [place] [address] [place] Platelet mean volume (Bld) [Entitic vol] 9.6 fL Normal 9.0-12.7 [facility] Comment on above: Order Comment: Speci men Type: BLOOD SPECIMENOrdering Facility: [facility] Address: [address] [place] [address] Performed By: #### 5 8410-2 ####[facility]ORATORYCLIA [id number] [place] [id number] [place] Platelets (Bld) [#/Vol] 398 10*3/uL Normal 150-400 [facility] Comment on above: Order Comment: Speci men Type: BLOOD SPECIMENOrdering Facility: [facility] Address: [address] [place] [address] Performed By: #### 5 8410-2 ####[facility] LABORATORYCLIA [id number] [place] [id number] [place] RBC (Bld) [#/Vol] 2.56 10*6/uL Low 4.20-6.00 [facility] Comment on above: Order Comment: Speci men Type: BLOOD SPECIMENOrdering Facility: [facility] Address: [address] [place] [address] Performed By: #### 5 8410-2 ####[facility] LABORATORYCLIA [id number] [place] [id number] [facility] [place] WBC (Bld) [#/Vol] 10.43 10*3/uL Normal 3.70-11.00 [facility] Comment on above: Order Comment: Speci men Type: BLOOD SPECIMENOrdering Facility: [facility] Address: [address] [place] [address] Performed By: #### 5 8410-2 ####[facility] LABORATORYCLIA [id number] [place] [id number] [place] CNDSon 05-19-2023 CNDS Normal [facility] PT EDon 05-19-2023 PT ED Normal [facility] PTT, ANTICOAGULANT THERAPYon 05-19-2023 aPTT Coag (PPP) [Time] 66.9 s High 23.0-32.4 [facility] Comment on above: Order Comment: Speci men Type: BLOOD SPECIMENOrdering Facility: [facility] Address: [address] [place] [address] Performed By: #### P TTAC ####LAPINE LABORATORYCLIA [id number] [place] [id number] [facility] [place] THERAPY NTon 05-19-2023 THERAPY NT Normal [facility] THERAPY NT Normal [facility] CBC panel Auto (Bld)on 05-18 Erythrocyte distribution width (RBC) [Ratio] 14.0 % Normal 11.5-15.0 [facility] Comment on above: Order Comment: Speci men Type: BLOOD SPECIMENOrdering Facility: [facility] Address: [address] [place] [address] Performed By: #### 5 8410-2 ####JAKE LABORATORYCLIA [id number] [address] [place] Hematocrit (Bld) [Volume fraction] 24.1 % Low 39.0-51.0 [facility] Comment on above: Order Comment: Speci men Type: BLOOD SPECIMENOrdering Facility: [facility] Address: [address] [place] [address] Performed By: #### 5 8410-2 ####[facility] LABORATORYCLIA [id number] [place] [address] [place] Hemoglobin (Bld) [Mass/Vol] 7.7 g/dL Low 13.0-17.0 [facility] Comment on above: Order Comment: Speci men Type: BLOOD SPECIMENOrdering Facility: [facility] Address: [address] [place] [address] Performed By: #### 5 8410-2 ####JAKE LABORATORYCLIA [id number] [address] [place] [facility] MCH (RBC) [Entitic mass] 29.7 pg Normal 26.0-34.0 [facility] Comment on above: Order Comment: Speci men Type: BLOOD SPECIMENOrdering Facility: [facility] Address: [address] [place] [address] Performed By: #### 5 8410-2 ####JAKE LABORATORYCLIA [id number] [address] [place] MCHC (RBC) [Mass/Vol] 32.0 g/dL Normal 30.5-36.0 [facility] Comment on above: Order Comment: Speci men Type: BLOOD SPECIMENOrdering Facility: [facility] Address: [address] [place] [address] Performed By: #### 5 8410-2 ####[facility] LABORATORYCLIA [id number] [address] MCV (RBC) [Entitic vol] 93.1 fL Normal 80.0-100.0 [facility] Comment on above: Order Comment: Speci men Type: BLOOD SPECIMENOrdering Facility: [facility] Address: [address] [place] [address] Performed By: #### 5 8410-2 ####LAPINE LABORATORYCLIA [id number] [place] [id number] [place] Nucleated RBC (Bld) [#/Vol] 10*3/uL Normal <0.01 [facility] Comment on above: Order Comment: Speci men Type: BLOOD SPECIMENOrdering Facility: [facility] Address: [address] [place] [address] Performed By: #### 5 8410-2 ####LAPINE LABORATORYCLIA [id number] [place] [id number] [place] Platelet mean volume (Bld) [Entitic vol] 10.0 fL Normal 9.0-12.7 [facility] Comment on above: Order Comment: Speci men Type: BLOOD SPECIMENOrdering Facility: [facility] Address: [address] [place] [address] Performed By: #### 5 8410-2 ####LAPINE LABORATORYCLIA [id number] [place] [address] [place] Platelets (Bld) [#/Vol] 417 10*3/uL High 150-400 [facility] Comment on above: Order Comment: Speci men Type: BLOOD SPECIMENOrdering Facility: [facility] Address: [address] [place] [address] Performed By: #### 5 8410-2 ####LAPINE LABORATORYCLIA [id number] [place] [id number] [place] RBC (Bld) [#/Vol] 2.59 10*6/uL Low 4.20-6.00 [facility] Comment on above: Order Comment: Speci men Type: BLOOD SPECIMENOrdering Facility: [facility] Address: [address] [place] [address] Performed By: #### 5 8410-2 ####LAPINE LABORATORYCLIA [id number] [place] [id number] [place] WBC (Bld) [#/Vol] 10.72 10*3/uL Normal 3.70-11.00 [facility] Comment on above: Order Comment: Speci men Type: BLOOD SPECIMENOrdering Facility: [facility] Address: [address] [place] [address] Performed By: #### 5 8410-2 ####LAPINE LABORATORYCLIA [id number] [address] [place] [facility] Erythrocyte distribution width (RBC) [Ratio] 13.8 % Normal 11.5-15.0 [facility] Comment on above: Order Comment: Speci men Type: BLOOD SPECIMENOrdering Facility: [facility] Address: [address] [place] [address] Performed By: #### 5 8410-2 ####LAPINE LABORATORYCLIA [id number] [address] Hematocrit (Bld) [Volume fraction] 23.2 % Low 39.0-51.0 [facility] Comment on above: Order Comment: Speci men Type: BLOOD SPECIMENOrdering Facility: [facility] Address: [address] [place] [address] Performed By: #### 5 8410-2 ####LAPINE LABORATORYCLIA [id number] [address] [place] Hemoglobin (Bld) [Mass/Vol] 7.4 g/dL Low 13.0-17.0 [facility] Comment on above: Order Comment: Speci men Type: BLOOD SPECIMENOrdering Facility: [facility] Address: [address] [place] [address] Performed By: #### 5 8410-2 ####LAPINE LABORATORYCLIA [id number] [address] [place] MCH (RBC) [Entitic mass] 29.6 pg Normal 26.0-34.0 [facility] Comment on above: Order Comment: Speci men Type: BLOOD SPECIMENOrdering Facility: [facility] Address: [address] [place] [address] Performed By: #### 5 8410-2 ####LAPINE LABORATORYCLIA [id number] [address] [place] MCHC (RBC) [Mass/Vol] 31.9 g/dL Normal 30.5-36.0 [facility] Comment on above: Order Comment: Speci men Type: BLOOD SPECIMENOrdering Facility: [facility] Address: [address] [place] [address] Performed By: #### 5 8410-2 ####[facility] LABORATORYCLIA [id number] [place] [address] [place] MCV (RBC) [Entitic vol] 92.8 fL Normal 80.0-100.0 [facility] Comment on above: Order Comment: Speci men Type: BLOOD SPECIMENOrdering Facility: [facility] Address: [address] [place] [address] Performed By: #### 5 8410-2 ####[facility] LABORATORYCLIA [id number] [address] [place] Nucleated RBC (Bld) [#/Vol] 10*3/uL Normal <0.01 [facility] Comment on above: Order Comment: Speci men Type: BLOOD SPECIMENOrdering Facility: [facility] Address: [address] [place] [address] Performed By: #### 5 8410-2 ####[facility] LABORATORYCLIA [id number] [place] [address] [place] Platelet mean volume (Bld) [Entitic vol] 10.1 fL Normal 9.0-12.7 [facility] Comment on above: Order Comment: Speci men Type: BLOOD SPECIMENOrdering Facility: [facility] Address: [address] [place] [address] Performed By: #### 5 8410-2 ####[facility] LABORATORYCLIA [id number] [place] [address] [place] Platelets (Bld) [#/Vol] 359 10*3/uL Normal 150-400 [facility] Comment on above: Order Comment: Speci men Type: BLOOD SPECIMENOrdering Facility: [facility] Address: [address] [place] [address] Performed By: #### 5 8410-2 ####LAPINE LABORATORYCLIA [id number] [place] [id number] [place] RBC (Bld) [#/Vol] 2.50 10*6/uL Low 4.20-6.00 [facility] Comment on above: Order Comment: Ariana rodriguez Type: BLOOD SPECIMENOrdering Facility: [facility] Address: [address] [place] [address] Performed By: #### 5 8410-2 ####LAPINE LABORATORYCLIA [id number] [place] [id number] [place] WBC (Bld) [#/Vol] 10.55 10*3/uL Normal 3.70-11.00 [facility] Comment on above: Order Comment: Ariana rodriguez Type: BLOOD SPECIMENOrdering Facility: [facility] Address: [address] [place] [address] Performed By: #### 5 8410-2 ####LAPINE LABORATORYCLIA [id number] [place] [id number] [facility] PT panel Coag (PPP)on 2023 INR Coag (PPP) [Relative time] {INR} Low 0.9-1.3 [facility] Comment on above: Order Comment: Ariana rodriguez Type: BLOOD SPECIMENOrdering Facility: [facility] Address: [address] [place] [address] Result Comment: Isa min K Antagonist (VKA) Therapeutic Range: INR 2 to 3 (Target INR of 2.5)Note: For patients treated with VKA drugs, such as warfarin, the [place] [employer] 2012 Guideline recommends a therapeutic INR range of 2 to 3 (target INR of 2.5). This recommendation includes high-risk patients with antiphospholipid syndrome with previous arterial or venous thromboembolism, current-generation mechanical or bioprosthetic aortic heart valve replacement.Note: Patients with mechanical aortic valve replacement and additional risk factors for thromboembolic events (atrial fibrillation, previous thromboembolism, LV dysfunction, hypercoagulable conditions) or an older generation mechanical AVR (i.e., ball in-Cage) or any mechanical MVR should have a INR therapeutic range of 2.5 to 3.5 (target INR of 3).[place] PARKER, et al. Chest 2012, 141:7S-47SNishimanselmo RA, et al. [facility] 2017, 70: 252-289 Performed By: #### P TTAC, 42613-5 ####JAKE LABORATORYCLIA [id number] [place] [id number] [place] [facility] PT Coag (PPP) [Time] 10.4 s Normal 9.7-13.0 [facility] Comment on above: Order Comment: Speci men Type: BLOOD SPECIMENOrdering Facility: [facility] Address: [address] [place] [address] Performed By: #### P TTAC, 12387-7 ####JAKE LABORATORYCLIA [id number] [place] [id number] [facility] [place] PTT, ANTICOAGULANT THERAPYon 05-18-2023 aPTT Coag (PPP) [Time] 57.9 s High 23.0-32.4 [facility] Comment on above: Order Comment: Speci men Type: BLOOD SPECIMENOrdering Facility: [facility] Address: [address] [place] [address] Performed By: #### P TTAC ####JAKE LABORATORYCLIA [id number] [address] aPTT Coag (PPP) [Time] 31.9 s Normal 23.0-32.4 [facility] Comment on above: Order Comment: Speci men Type: BLOOD SPECIMENOrdering Facility: [facility] Address: [address] [place] [address] Performed By: #### P TTAC ####JAKE LABORATORYCLIA [id number] [address] aPTT Coag (PPP) [Time] 33.7 s High 23.0-32.4 [facility] Comment on above: Order Comment: Speci men Type: BLOOD SPECIMENOrdering Facility: [facility] Address: [address] [place] [address] Performed By: #### P TTAC, 98051-9 ####ELIAS[facility] LABORATORYCLIA [id number] [place] [id number] [facility] Basic metabolic 2000 panelon 05-17-2023 Anion gap [Moles/Vol] 13 mmol/L Normal 9-18 [facility] Comment on above: Order Comment: Speci men Type: BLOOD SPECIMENOrdering Facility: [facility] Address: [address] [place] [address] Performed By: #### 2 2, ####JAKE LABORATORYCLIA [id number] [place] [address] [place] Calcium [Mass/Vol] 8.7 mg/dL Normal 8.5-10.2 [facility] Comment on above: Order Comment: Speci men Type: BLOOD SPECIMENOrdering Facility: [facility] Address: [address] [place] [address] Performed By: #### 2 2, ####JAKE LABORATORYCLIA [id number] [place] [id number] [place] Chloride [Moles/Vol] 102 mmol/L Normal 97-105 [facility] Comment on above: Order Comment: Speci men Type: BLOOD SPECIMENOrdering Facility: [facility] Address: [address] [place] [address] Performed By: #### 2 4320-06, ####JAKE LABORATORYCLIA [id number] [place] [id number] [place] CO2 [Moles/Vol] 25 mmol/L Normal 22-30 [facility] Comment on above: Order Comment: Speci men Type: BLOOD SPECIMENOrdering Facility: [facility] Address: [address] [place] [address] Performed By: #### 2 2, ####JAKE LABORATORYCLIA [id number] [place] [id number] [place] Creatinine [Mass/Vol] 0.97 mg/dL Normal 0.73-1.22 [facility] Comment on above: Order Comment: Speci men Type: BLOOD SPECIMENOrdering Facility: [facility] Address: [address] [place] [address] Performed By: #### 2 2, ####JAKE LABORATORYCLIA [id number] [place] [id number] [place] Creatinine and Glomerular filtration rate.predicted panel (S/P/Bld) 89 mL/min/1.73m??? Normal >=60 [facility] Comment on above: Order Comment: Ariana rodriguez Type: BLOOD SPECIMENOrdering Facility: [facility] Address: [address] [place] [address] Result Comment: Chirag mated Glomerular Filtration Rate (eGFR) is calculated using the 2020 CKD-EPI creatinine equation. This equation utilizes serum creatinine, sex, and age as parameters. The creatinine assay has traceable calibration to isotope dilution-mass spectrometry. Refer to KDIGO guidelines for clinical interpretation. In patients with unstable renal function, e.g. those with acute kidney injury, the eGFR may not accurately reflect actual GFR. Performed By: #### 2 4321-2, ####LAPINE LABORATORYCLIA [id number] [place] [id number] [place] Glucose [Mass/Vol] 103 mg/dL High 74-99 [facility] Comment on above: Order Comment: Ariana rodriguez Type: BLOOD SPECIMENOrdering Facility: [facility] Address: [address] [place] [address] Result Comment: The [place] [employer] (ADA) provides guidance for cutoff values for fasting glucose and random glucose. The ADA defines fasting as no caloric intake for at least 8 hours. Fasting plasma glucose results between 100 to 125 mg/dL indicate increased risk for diabetes (prediabetes).Fasting plasma glucose results greater than or equal to 126 mg/dL meet the criteria for diagnosis of diabetes. In the absence of unequivocal hyperglycemia, results should be confirmed by repeat testing. In a patient with classic symptoms of hyperglycemia or hyperglycemic crisis, random plasma glucose results greater than or equal to 200 mg/dL meet the criteria for diagnosis of diabetes.Reference: Standards of Medical Care in Diabetes 2016, [place] [employer]. Diabetes Care. 2016.39(Suppl 1). Performed By: #### 2 4321-2, ####LAPINE LABORATORYCLIA [id number] [place] [id number] [place] Potassium [Moles/Vol] 3.9 mmol/L Normal 3.7-5.1 [facility] Comment on above: Order Comment: Speci men Type: BLOOD SPECIMENOrdering Facility: [facility] Address: [address] [place] [address] Performed By: #### 2 4321-2, ####[facility] LABORATORYCLIA [id number] [place] [id number] [place] Sodium [Moles/Vol] 140 mmol/L Normal 136-144 [facility] Comment on above: Order Comment: Speci men Type: BLOOD SPECIMENOrdering Facility: [facility] Address: [address] [place] [address] Performed By: #### 2 4321-2, ####[facility] LABORATORYCLIA [id number] [place] [address] [place] Urea nitrogen [Mass/Vol] 12 mg/dL Normal 9-24 [facility] Comment on above: Order Comment: Speci men Type: BLOOD SPECIMENOrdering Facility: [facility] Address: [address] [place] [address] Performed By: #### 2 432-2, ####[facility] LABORATORYCLIA [id number] [place] [id number] [place] CASE MGT INIT ASSESon 2023 CASE MGT INIT ASSES Normal [facility] CBC W Auto Differential pane l (Bld)on 05-17-2023 Basophils (Bld) [#/Vol] 0.08 10*3/uL Normal <0.11 [facility] Comment on above: Order Comment: Speci men Type: BLOOD SPECIMENOrdering Facility: [facility] Address: [address] [place] [address] Performed By: #### 5 7021-8 ####[facility] LABORATORYCLIA [id number] [place] [id number] [place] Basophils/100 WBC (Bld) 0.8 % Normal [facility] Comment on above: Order Comment: Speci men Type: BLOOD SPECIMENOrdering Facility: [facility] Address: [address] [place] [address] Performed By: #### 5 7021-8 ####[facility] LABORATORYCLIA [id number] [place] [id number] [place] Differential cell count method Nom (Bld) Auto Normal [facility] Comment on above: Order Comment: Speci men Type: BLOOD SPECIMENOrdering Facility: [facility] Address: [address] [place] [address] Performed By: #### 5 7021-8 ####[facility] LABORATORYCLIA [id number] [place] [address] [place] Eosinophils (Bld) [#/Vol] 0.24 10*3/uL Normal <0.46 [facility] Comment on above: Order Comment: Speci men Type: BLOOD SPECIMENOrdering Facility: [facility] Address: [address] [place] [address] Performed By: #### 5 7021-8 ####JAKE LABORATORYCLIA [id number] [place] [address] [place] Eosinophils/100 WBC (Bld) 2.3 % Normal [facility] Comment on above: Order Comment: Speci men Type: BLOOD SPECIMENOrdering Facility: [facility] Address: [address] [place] [address] Performed By: #### 5 7021-8 ####JAKE LABORATORYCLIA [id number] [address] [place] Erythrocyte distribution width (RBC) [Ratio] 14.0 % Normal 11.5-15.0 [facility] Comment on above: Order Comment: Speci men Type: BLOOD SPECIMENOrdering Facility: [facility] Address: [address] [place] [address] Performed By: #### 5 7021-8 ####[facility] LABORATORYCLIA [id number] [address] [place] Hematocrit (Bld) [Volume fraction] 23.2 % Low 39.0-51.0 [facility] Comment on above: Order Comment: Speci men Type: BLOOD SPECIMENOrdering Facility: [facility] Address: [address] [place] [address] Performed By: #### 5 7021-8 ####[facility] LABORATORYCLIA [id number] [place] [id number] [place] Hemoglobin (Bld) [Mass/Vol] 7.4 g/dL Low 13.0-17.0 [facility] Comment on above: Order Comment: Speci men Type: BLOOD SPECIMENOrdering Facility: [facility] Address: [address] [place] [address] Performed By: #### 5 7021-8 ####[facility] LABORATORYCLIA [id number] [place] [address] [place] Immature granulocytes (Bld) [#/Vol] 0.04 10*3/uL Normal <0.10 [facility] Comment on above: Order Comment: Speci men Type: BLOOD SPECIMENOrdering Facility: [facility] Address: [address] [place] [address] Performed By: #### 5 7021-8 ####[facility] LABORATORYCLIA [id number] [place] [address] [place] Immature granulocytes/100 WBC (Bld) 0.4 % Normal [facility] Comment on above: Order Comment: Speci men Type: BLOOD SPECIMENOrdering Facility: [facility] Address: [address] [place] [address] Performed By: #### 5 7021-8 ####[facility] LABORATORYCLIA [id number] [place] [address] [place] Lymphocytes (Bld) [#/Vol] 3.43 10*3/uL Normal 1.00-4.00 [facility] Comment on above: Order Comment: Speci men Type: BLOOD SPECIMENOrdering Facility: [facility] Address: [address] [place] [address] Performed By: #### 5 7021-8 ####[facility] LABORATORYCLIA [id number] [place] [address] [place] Lymphocytes/100 WBC (Bld) 32.6 % Normal [facility] Comment on above: Order Comment: Speci men Type: BLOOD SPECIMENOrdering Facility: [facility] Address: [address] [place] [address] Performed By: #### 5 7021-8 ####LAPINE LABORATORYCLIA [id number] [address] [place] [facility] MCH (RBC) [Entitic mass] 29.4 pg Normal 26.0-34.0 [facility] Comment on above: Order Comment: Speci men Type: BLOOD SPECIMENOrdering Facility: [facility] Address: [address] [place] [address] Performed By: #### 5 7021-8 ####[facility] LABORATORYCLIA [id number] [place] [address] [place] MCHC (RBC) [Mass/Vol] 31.9 g/dL Normal 30.5-36.0 [facility] Comment on above: Order Comment: Speci men Type: BLOOD SPECIMENOrdering Facility: [facility] Address: [address] [place] [address] Performed By: #### 5 7021-8 ####[facility] LABORATORYCLIA [id number] [address] [place] MCV (RBC) [Entitic vol] 92.1 fL Normal 80.0-100.0 [facility] Comment on above: Order Comment: Speci men Type: BLOOD SPECIMENOrdering Facility: [facility] Address: [address] [place] [address] Performed By: #### 5 7021-8 ####[facility] LABORATORYCLIA [id number] [address] [place] Monocytes (Bld) [#/Vol] 0.57 10*3/uL Normal <0.87 [facility] Comment on above: Order Comment: Speci men Type: BLOOD SPECIMENOrdering Facility: [facility] Address: [address] [place] [address] Performed By: #### 5 7021-8 ####[facility] LABORATORYCLIA [id number] [address] [place] Monocytes/100 WBC (Bld) 5.4 % Normal [facility] Comment on above: Order Comment: Speci men Type: BLOOD SPECIMENOrdering Facility: [facility] Address: [address] [place] [address] Performed By: #### 5 7021-8 ####JAKE LABORATORYCLIA [id number] [place] [address] [place] Neutrophils (Bld) [#/Vol] 6.16 10*3/uL Normal 1.45-7.50 [facility] Comment on above: Order Comment: Speci men Type: BLOOD SPECIMENOrdering Facility: [facility] Address: [address] [place] [address] Performed By: #### 5 7021-8 ####JAKE LABORATORYCLIA [id number] [place] [address] [place] Neutrophils/100 WBC (Bld) 58.5 % Normal [facility] Comment on above: Order Comment: Speci men Type: BLOOD SPECIMENOrdering Facility: [facility] Address: [address] [place] [address] Performed By: #### 5 7021-8 ####JAKE LABORATORYCLIA [id number] [place] [address] [place] Nucleated RBC (Bld) [#/Vol] 10*3/uL Normal <0.01 [facility] Comment on above: Order Comment: Speci men Type: BLOOD SPECIMENOrdering Facility: [facility] Address: [address] [place] [address] Performed By: #### 5 7021-8 ####JAKE LABORATORYCLIA [id number] [place] [address] [place] Nucleated RBC/100 WBC (Bld) [Ratio] 0.0 /100 WBC Normal [facility] Comment on above: Order Comment: Speci men Type: BLOOD SPECIMENOrdering Facility: [facility] Address: [address] [place] [address] Performed By: #### 5 7021-8 ####[facility] LABORATORYCLIA [id number] [place] [address] [place] Platelet mean volume (Bld) [Entitic vol] 9.9 fL Normal 9.0-12.7 [facility] Comment on above: Order Comment: Speci men Type: BLOOD SPECIMENOrdering Facility: [facility] Address: [address] [place] [address] Performed By: #### 5 7021-8 ####[facility] LABORATORYCLIA [id number] [place] [id number] [place] Platelets (Bld) [#/Vol] 331 10*3/uL Normal 150-400 [facility] Comment on above: Order Comment: Speci men Type: BLOOD SPECIMENOrdering Facility: [facility] Address: [address] [place] [address] Performed By: #### 5 7021-8 ####[facility] LABORATORYCLIA [id number] [place] [id number] [place] RBC (Bld) [#/Vol] 2.52 10*6/uL Low 4.20-6.00 [facility] Comment on above: Order Comment: Speci men Type: BLOOD SPECIMENOrdering Facility: [facility] Address: [address] [place] [address] Performed By: #### 5 7021-8 ####[facility] LABORATORYCLIA [id number] [place] [id number] [place] WBC (Bld) [#/Vol] 10.52 10*3/uL Normal 3.70-11.00 [facility] Comment on above: Order Comment: Speci men Type: BLOOD SPECIMENOrdering Facility: [facility] Address: [address] [place] [address] Performed By: #### 5 7021-8 ####[facility] LABORATORYCLIA [id number] [place] [id number] [place] Magnesium SerPl-mCncon 05-17 Magnesium [Mass/Vol] 2.0 mg/dL Normal 1.7-2.3 [facility] Comment on above: Order Comment: Speci men Type: BLOOD SPECIMENOrdering Facility: [facility] Address: [address] [place] [address] Performed By: #### 2 4321-2, 92492-1 ####[facility] LABORATORYCLIA [id number] [place] [id number] [place] NURSING PROGon 05-17-2023 NURSING PROG Normal [facility] PTT, ANTICOAGULANT THERAPYon 05-17-2023 aPTT Coag (PPP) [Time] 30.4 s Normal 23.0-32.4 [facility] Comment on above: Order Comment: Speci men Type: BLOOD SPECIMENOrdering Facility: [facility] Address: [address] [place] [address] Performed By: #### P TTAC ####LAPINE LABORATORYCLIA [id number] [place] [id number] [facility] [place] THERAPY NTon 05-17-2023 THERAPY NT Normal [facility] ANES POSTPROC EVALon 024 ANES POSTPROC EVAL Normal [facility] Basic metabolic 2000 panelon 05-16-2023 Anion gap [Moles/Vol] 10 mmol/L Normal 9-18 [facility] Comment on above: Order Comment: Speci men Type: BLOOD SPECIMENOrdering Facility: [facility] Address: [address] [place] [address] Performed By: #### 2 4322, ####[facility] LABORATORYCLIA [id number] [place] [id number] [place] Calcium [Mass/Vol] 8.6 mg/dL Normal 8.5-10.2 [facility] Comment on above: Order Comment: Speci men Type: BLOOD SPECIMENOrdering Facility: [facility] Address: [address] [place] [address] Performed By: #### 2 432-2, ####[facility] LABORATORYCLIA [id number] [place] [id number] [place] Chloride [Moles/Vol] 104 mmol/L Normal 97-105 [facility] Comment on above: Order Comment: Speci men Type: BLOOD SPECIMENOrdering Facility: [facility] Address: [address] [place] [address] Performed By: #### 2 432-2, ####JAKE LABORATORYCLIA [id number] [place] [address] [place] CO2 [Moles/Vol] 27 mmol/L Normal 22-30 [facility] Comment on above: Order Comment: Speci men Type: BLOOD SPECIMENOrdering Facility: [facility] Address: [address] [place] [address] Performed By: #### 2 4321-2, ####LAPINE LABORATORYCLIA [id number] [place] [id number] [place] Creatinine [Mass/Vol] 1.01 mg/dL Normal 0.73-1.22 [facility] Comment on above: Order Comment: Speci men Type: BLOOD SPECIMENOrdering Facility: [facility] Address: [address] [place] [address] Performed By: #### 2 432-2, ####LAPINE LABORATORYCLIA [id number] [address] STATES OF [facility] Creatinine and Glomerular filtration rate.predicted panel (S/P/Bld) 85 mL/min/1.73m??? Normal >=60 [facility] Comment on above: Order Comment: Speci men Type: BLOOD SPECIMENOrdering Facility: [facility] Address: [address] [place] [address] Result Comment: Chirag mated Glomerular Filtration Rate (eGFR) is calculated using the 2020 CKD-EPI creatinine equation. This equation utilizes serum creatinine, sex, and age as parameters. The creatinine assay has traceable calibration to isotope dilution-mass spectrometry. Refer to KDIGO guidelines for clinical interpretation. In patients with unstable renal function, e.g. those with acute kidney injury, the eGFR may not accurately reflect actual GFR. Performed By: #### 2 4321-2, ####LAPINE LABORATORYCLIA [id number] [place] [id number] [place] Glucose [Mass/Vol] 99 mg/dL Normal 74-99 [facility] Comment on above: Order Comment: Speci men Type: BLOOD SPECIMENOrdering Facility: [facility] Address: [address] [place] [address] Result Comment: The [place] [employer] (ADA) provides guidance for cutoff values for fasting glucose and random glucose. The ADA defines fasting as no caloric intake for at least 8 hours. Fasting plasma glucose results between 100 to 125 mg/dL indicate increased risk for diabetes (prediabetes).Fasting plasma glucose results greater than or equal to 126 mg/dL meet the criteria for diagnosis of diabetes. In the absence of unequivocal hyperglycemia, results should be confirmed by repeat testing. In a patient with classic symptoms of hyperglycemia or hyperglycemic crisis, random plasma glucose results greater than or equal to 200 mg/dL meet the criteria for diagnosis of diabetes.Reference: Standards of Medical Care in Diabetes 2016, [place] [employer]. Diabetes Care. 2016.39(Suppl 1). Performed By: #### 2 4320-06, ####LAPINE LABORATORYCLIA [id number] [place] [address] [place] Potassium [Moles/Vol] 4.1 mmol/L Normal 3.7-5.1 [facility] Comment on above: Order Comment: Speci michael Type: BLOOD SPECIMENOrdering Facility: [facility] Address: [address] [place] [address] Performed By: #### 2 4320-06, ####LAPINE LABORATORYCLIA [id number] [place] [address] [place] Sodium [Moles/Vol] 141 mmol/L Normal 136-144 [facility] Comment on above: Order Comment: Ariana rodriguez Type: BLOOD SPECIMENOrdering Facility: [facility] Address: [address] [place] [address] Performed By: #### 2 4320-06, ####LAPINE LABORATORYCLIA [id number] [place] [id number] [place] Urea nitrogen [Mass/Vol] 14 mg/dL Normal 9-24 [facility] Comment on above: Order Comment: Bebai men Type: BLOOD SPECIMENOrdering Facility: [facility] Address: [address] [place] [address] Performed By: #### 2 4320-06, ####LAPINE LABORATORYCLIA [id number] [place] [id number] [place] CBC W Auto Differential pane l (Bld)on 05-16-2023 Basophils (Bld) [#/Vol] 0.09 10*3/uL Normal <0.11 [facility] Comment on above: Order Comment: Speci men Type: BLOOD SPECIMENOrdering Facility: [facility] Address: [address] [place] [address] Performed By: #### 5 7021-8 ####JAKE LABORATORYCLIA [id number] [place] [id number] [place] Basophils/100 WBC (Bld) 0.8 % Normal [facility] Comment on above: Order Comment: Speci men Type: BLOOD SPECIMENOrdering Facility: [facility] Address: [address] [place] [address] Performed By: #### 5 7021-8 ####JAKE LABORATORYCLIA [id number] [place] [address] [place] Differential cell count method Nom (Bld) Auto Normal [facility] Comment on above: Order Comment: Speci men Type: BLOOD SPECIMENOrdering Facility: [facility] Address: [address] [place] [address] Performed By: #### 5 7021-8 ####JAKE LABORATORYCLIA [id number] [place] [address] [place] Eosinophils (Bld) [#/Vol] 0.21 10*3/uL Normal <0.46 [facility] Comment on above: Order Comment: Speci men Type: BLOOD SPECIMENOrdering Facility: [facility] Address: [address] [place] [address] Performed By: #### 5 7021-8 ####[facility] LABORATORYCLIA [id number] [place] [id number] [place] Eosinophils/100 WBC (Bld) 1.8 % Normal [facility] Comment on above: Order Comment: Speci men Type: BLOOD SPECIMENOrdering Facility: [facility] Address: [address] [place] [address] Performed By: #### 5 7021-8 ####JAKE LABORATORYCLIA [id number] [address] [place] Erythrocyte distribution width (RBC) [Ratio] 14.0 % Normal 11.5-15.0 [facility] Comment on above: Order Comment: Speci men Type: BLOOD SPECIMENOrdering Facility: [facility] Address: [address] [place] [address] Performed By: #### 5 7021-8 ####JAKE LABORATORYCLIA [id number] [place] [id number] [place] Hematocrit (Bld) [Volume fraction] 23.6 % Low 39.0-51.0 [facility] Comment on above: Order Comment: Speci men Type: BLOOD SPECIMENOrdering Facility: [facility] Address: [address] [place] [address] Performed By: #### 5 7021-8 ####JAKE LABORATORYCLIA [id number] [place] [address] [place] Hemoglobin (Bld) [Mass/Vol] 7.6 g/dL Low 13.0-17.0 [facility] Comment on above: Order Comment: Speci men Type: BLOOD SPECIMENOrdering Facility: [facility] Address: [address] [place] [address] Performed By: #### 5 7021-8 ####JAKE LABORATORYCLIA [id number] [place] [address] [place] Immature granulocytes (Bld) [#/Vol] 0.05 10*3/uL Normal <0.10 [facility] Comment on above: Order Comment: Speci men Type: BLOOD SPECIMENOrdering Facility: [facility] Address: [address] [place] [address] Performed By: #### 5 7021-8 ####JAKE LABORATORYCLIA [id number] [address] [place] Immature granulocytes/100 WBC (Bld) 0.4 % Normal [facility] Comment on above: Order Comment: Speci men Type: BLOOD SPECIMENOrdering Facility: [facility] Address: [address] [place] [address] Performed By: #### 5 7021-8 ####JAKE LABORATORYCLIA [id number] [place] [address] [place] Lymphocytes (Bld) [#/Vol] 3.47 10*3/uL Normal 1.00-4.00 [facility] Comment on above: Order Comment: Speci men Type: BLOOD SPECIMENOrdering Facility: [facility] Address: [address] [place] [address] Performed By: #### 5 7021-8 ####JAKE LABORATORYCLIA [id number] [address] STATES [facility] Lymphocytes/100 WBC (Bld) 29.9 % Normal [facility] Comment on above: Order Comment: Speci men Type: BLOOD SPECIMENOrdering Facility: [facility] Address: [address] [place] [address] Performed By: #### 5 7021-8 ####JAKE LABORATORYCLIA [id number] [place] [address] [place] MCH (RBC) [Entitic mass] 29.9 pg Normal 26.0-34.0 [facility] Comment on above: Order Comment: Speci men Type: BLOOD SPECIMENOrdering Facility: [facility] Address: [address] [place] [address] Performed By: #### 5 7021-8 ####JAKE LABORATORYCLIA [id number] [place] [address] [place] MCHC (RBC) [Mass/Vol] 32.2 g/dL Normal 30.5-36.0 [facility] Comment on above: Order Comment: Speci men Type: BLOOD SPECIMENOrdering Facility: [facility] Address: [address] [place] [address] Performed By: #### 5 7021-8 ####[facility] LABORATORYCLIA [id number] [address] [place] MCV (RBC) [Entitic vol] 92.9 fL Normal 80.0-100.0 [facility] Comment on above: Order Comment: Speci men Type: BLOOD SPECIMENOrdering Facility: [facility] Address: [address] [place] [address] Performed By: #### 5 7021-8 ####JAKE LABORATORYCLIA [id number] [place] [id number] [place] Monocytes (Bld) [#/Vol] 0.63 10*3/uL Normal <0.87 [facility] Comment on above: Order Comment: Speci men Type: BLOOD SPECIMENOrdering Facility: [facility] Address: [address] [place] [address] Performed By: #### 5 7021-8 ####JAKE LABORATORYCLIA [id number] [place] [id number] [place] Monocytes/100 WBC (Bld) 5.4 % Normal [facility] Comment on above: Order Comment: Speci men Type: BLOOD SPECIMENOrdering Facility: [facility] Address: [address] [place] [address] Performed By: #### 5 7021-8 ####JAKE LABORATORYCLIA [id number] [place] [id number] [place] Neutrophils (Bld) [#/Vol] 7.15 10*3/uL Normal 1.45-7.50 [facility] Comment on above: Order Comment: Speci men Type: BLOOD SPECIMENOrdering Facility: [facility] Address: [address] [place] [address] Performed By: #### 5 7021-8 ####JAKE LABORATORYCLIA [id number] [place] [id number] [place] Neutrophils/100 WBC (Bld) 61.7 % Normal [facility] Comment on above: Order Comment: Speci men Type: BLOOD SPECIMENOrdering Facility: [facility] Address: [address] [place] [address] Performed By: #### 5 7021-8 ####JAKE LABORATORYCLIA [id number] [place] [id number] [place] Nucleated RBC (Bld) [#/Vol] 10*3/uL Normal <0.01 [facility] Comment on above: Order Comment: Speci men Type: BLOOD SPECIMENOrdering Facility: [facility] Address: [address] [place] [address] Performed By: #### 5 7021-8 ####LAPINE LABORATORYCLIA [id number] [place] [id number] [place] Nucleated RBC/100 WBC (Bld) [Ratio] 0.0 /100 WBC Normal [facility] Comment on above: Order Comment: Speci men Type: BLOOD SPECIMENOrdering Facility: [facility] Address: [address] [place] [address] Performed By: #### 5 7021-8 ####LAPINE LABORATORYCLIA [id number] [place] [id number] [place] Platelet mean volume (Bld) [Entitic vol] 10.3 fL Normal 9.0-12.7 [facility] Comment on above: Order Comment: Speci men Type: BLOOD SPECIMENOrdering Facility: [facility] Address: [address] [place] [address] Performed By: #### 5 7021-8 ####LAPINE LABORATORYCLIA [id number] [place] [address] [place] Platelets (Bld) [#/Vol] 351 10*3/uL Normal 150-400 [facility] Comment on above: Order Comment: Speci men Type: BLOOD SPECIMENOrdering Facility: [facility] Address: [address] [place] [address] Performed By: #### 5 7021-8 ####LAPINE LABORATORYCLIA [id number] [place] [id number] [place] RBC (Bld) [#/Vol] 2.54 10*6/uL Low 4.20-6.00 [facility] Comment on above: Order Comment: Speci men Type: BLOOD SPECIMENOrdering Facility: [facility] Address: [address] [place] [address] Performed By: #### 5 7021-8 ####LAPINE LABORATORYCLIA [id number] [place] [id number] [place] WBC (Bld) [#/Vol] 11.60 10*3/uL High 3.70-11.00 [facility] Comment on above: Order Comment: Speci men Type: BLOOD SPECIMENOrdering Facility: [facility] Address: [address] [place] [address] Performed By: #### 5 7021-8 ####JAKE LABORATORYCLIA [id number] [address] CBC panel Auto (Bld)on 05-16 Erythrocyte distribution width (RBC) [Ratio] 14.0 % Normal 11.5-15.0 [facility] Comment on above: Order Comment: Speci men Type: BLOOD SPECIMENOrdering Facility: [facility] Address: [address] [place] [address] Performed By: #### 5 8410-2 ####JAKE LABORATORYCLIA [id number] [address] Hematocrit (Bld) [Volume fraction] 23.3 % Low 39.0-51.0 [facility] Comment on above: Order Comment: Speci men Type: BLOOD SPECIMENOrdering Facility: [facility] Address: [address] [place] [address] Performed By: #### 5 8410-2 ####JAKE LABORATORYCLIA [id number] [address] Hemoglobin (Bld) [Mass/Vol] 7.7 g/dL Low 13.0-17.0 [facility] Comment on above: Order Comment: Speci men Type: BLOOD SPECIMENOrdering Facility: [facility] Address: [address] [place] [address] Performed By: #### 5 8410-2 ####JAKE LABORATORYCLIA [id number] [address] MCH (RBC) [Entitic mass] 30.6 pg Normal 26.0-34.0 [facility] Comment on above: Order Comment: Speci men Type: BLOOD SPECIMENOrdering Facility: [facility] Address: [address] [place] [address] Performed By: #### 5 8410-2 ####JAKE LABORATORYCLIA [id number] [place] [address] [place] MCHC (RBC) [Mass/Vol] 33.0 g/dL Normal 30.5-36.0 [facility] Comment on above: Order Comment: Speci men Type: BLOOD SPECIMENOrdering Facility: [facility] Address: [address] [place] [address] Performed By: #### 5 8410-2 ####JAKE LABORATORYCLIA [id number] [place] [id number] [place] MCV (RBC) [Entitic vol] 92.5 fL Normal 80.0-100.0 [facility] Comment on above: Order Comment: Speci men Type: BLOOD SPECIMENOrdering Facility: [facility] Address: [address] [place] [address] Performed By: #### 5 8410-2 ####[facility] LABORATORYCLIA [id number] [place] [address] [place] Nucleated RBC (Bld) [#/Vol] 10*3/uL Normal <0.01 [facility] Comment on above: Order Comment: Speci men Type: BLOOD SPECIMENOrdering Facility: [facility] Address: [address] [place] [address] Performed By: #### 5 8410-2 ####[facility] LABORATORYCLIA [id number] [place] [address] [place] Platelet mean volume (Bld) [Entitic vol] 9.4 fL Normal 9.0-12.7 [facility] Comment on above: Order Comment: Speci men Type: BLOOD SPECIMENOrdering Facility: [facility] Address: [address] [place] [address] Performed By: #### 5 8410-2 ####[facility] LABORATORYCLIA [id number] [place] [id number] [place] Platelets (Bld) [#/Vol] 310 10*3/uL Normal 150-400 [facility] Comment on above: Order Comment: Speci men Type: BLOOD SPECIMENOrdering Facility: [facility] Address: [address] [place] [address] Performed By: #### 5 8410-2 ####[facility] LABORATORYCLIA [id number] [place] [address] [place] RBC (Bld) [#/Vol] 2.52 10*6/uL Low 4.20-6.00 [facility] Comment on above: Order Comment: Speci men Type: BLOOD SPECIMENOrdering Facility: [facility] Address: [address] [place] [address] Performed By: #### 5 8410-2 ####LAPINE LABORATORYCLIA [id number] [place] [id number] [place] WBC (Bld) [#/Vol] 10.81 10*3/uL Normal 3.70-11.00 [facility] Comment on above: Order Comment: Speci men Type: BLOOD SPECIMENOrdering Facility: [facility] Address: [address] [place] [address] Performed By: #### 5 8410-2 ####LAPINE LABORATORYCLIA [id number] [place] [id number] [place] Magnesium SerPl-mCncon 05-16 Magnesium [Mass/Vol] 2.1 mg/dL Normal 1.7-2.3 [facility] Comment on above: Order Comment: Speci men Type: BLOOD SPECIMENOrdering Facility: [facility] Address: [address] [place] [address] Performed By: #### 2 4321-2, ####LAPINE LABORATORYCLIA [id number] [place] [id number] [facility] [place] THERAPY NTon 05-16-2023 THERAPY NT Normal [facility] Basic metabolic 2000 panelon 05-15-2023 Anion gap [Moles/Vol] 14 mmol/L Normal 9-18 [facility] Comment on above: Order Comment: Speci men Type: BLOOD SPECIMENOrdering Facility: [facility] Address: [address] [place] [address] Performed By: #### 2 4321-2, ####LAPINE LABORATORYCLIA [id number] [place] [id number] [place] Calcium [Mass/Vol] 8.5 mg/dL Normal 8.5-10.2 [facility] Comment on above: Order Comment: Speci men Type: BLOOD SPECIMENOrdering Facility: [facility] Address: [address] [place] [address] Performed By: #### 2 4321-2, ####[facility] LABORATORYCLIA [id number] [place] [address] [place] Chloride [Moles/Vol] 102 mmol/L Normal 97-105 [facility] Comment on above: Order Comment: Speci men Type: BLOOD SPECIMENOrdering Facility: [facility] Address: [address] [place] [address] Performed By: #### 2 4321-2, ####LAPINE LABORATORYCLIA [id number] [place] [id number] [place] CO2 [Moles/Vol] 22 mmol/L Normal 22-30 [facility] Comment on above: Order Comment: Speci men Type: BLOOD SPECIMENOrdering Facility: [facility] Address: [address] [place] [address] Performed By: #### 2 4321-2, ####LAPINE LABORATORYCLIA [id number] [place] [id number] [place] Creatinine [Mass/Vol] 0.91 mg/dL Normal 0.73-1.22 [facility] Comment on above: Order Comment: Speci men Type: BLOOD SPECIMENOrdering Facility: [facility] Address: [address] [place] [address] Performed By: #### 2 432-2, ####[facility] LABORATORYCLIA [id number] [place] [address] [place] Creatinine and Glomerular filtration rate.predicted panel (S/P/Bld) 96 mL/min/1.73m??? Normal >=60 [facility] Comment on above: Order Comment: Speci men Type: BLOOD SPECIMENOrdering Facility: [facility] Address: [address] [place] [address] Result Comment: Chirag mated Glomerular Filtration Rate (eGFR) is calculated using the 2020 CKD-EPI creatinine equation. This equation utilizes serum creatinine, sex, and age as parameters. The creatinine assay has traceable calibration to isotope dilution-mass spectrometry. Refer to KDIGO guidelines for clinical interpretation. In patients with unstable renal function, e.g. those with acute kidney injury, the eGFR may not accurately reflect actual GFR. Performed By: #### 2 432-, ####JAKE LABORATORYCLIA [id number] [place] [id number] [place] Glucose [Mass/Vol] 130 mg/dL High 74-99 [facility] Comment on above: Order Comment: Speci men Type: BLOOD SPECIMENOrdering Facility: [facility] Address: [address] [place] [address] Result Comment: The [place] [employer] (ADA) provides guidance for cutoff values for fasting glucose and random glucose. The ADA defines fasting as no caloric intake for at least 8 hours. Fasting plasma glucose results between 100 to 125 mg/dL indicate increased risk for diabetes (prediabetes).Fasting plasma glucose results greater than or equal to 126 mg/dL meet the criteria for diagnosis of diabetes. In the absence of unequivocal hyperglycemia, results should be confirmed by repeat testing. In a patient with classic symptoms of hyperglycemia or hyperglycemic crisis, random plasma glucose results greater than or equal to 200 mg/dL meet the criteria for diagnosis of diabetes.Reference: Standards of Medical Care in Diabetes 2016, [place] [employer]. Diabetes Care. 2016.39(Suppl 1). Performed By: #### 2 4320-06, ####JAKE LABORATORYCLIA [id number] [place] [id number] [place] Potassium [Moles/Vol] 4.7 mmol/L Normal 3.7-5.1 [facility] Comment on above: Order Comment: Speci men Type: BLOOD SPECIMENOrdering Facility: [facility] Address: [address] [place] [id number] Performed By: #### 2 4320-06, ####[facility] LABORATORYCLIA [id number] [place] [address] [place] Sodium [Moles/Vol] 138 mmol/L Normal 136-144 [facility] Comment on above: Order Comment: Speci men Type: BLOOD SPECIMENOrdering Facility: [facility] Address: [address] [place] [address] Performed By: #### 2 4321-2, ####JAKE LABORATORYCLIA [id number] [place] [id number] [place] Urea nitrogen [Mass/Vol] 17 mg/dL Normal 9-24 [facility] Comment on above: Order Comment: Speci men Type: BLOOD SPECIMENOrdering Facility: [facility] Address: [address] [place] [address] Performed By: #### 2 4321-2, ####JAKE LABORATORYCLIA [id number] [place] [id number] [place] CBC W Auto Differential pane l (Bld)on 05-15-2023 Basophils (Bld) [#/Vol] 0.05 10*3/uL Normal <0.11 [facility] Comment on above: Order Comment: Speci men Type: BLOOD SPECIMENOrdering Facility: [facility] Address: [address] [place] [address] Performed By: #### 5 7021-8 ####JAKE LABORATORYCLIA [id number] [place] [address] [place] Basophils/100 WBC (Bld) 0.3 % Normal [facility] Comment on above: Order Comment: Speci men Type: BLOOD SPECIMENOrdering Facility: [facility] Address: [address] [place] [address] Performed By: #### 5 7021-8 ####JAKE LABORATORYCLIA [id number] [place] [address] [place] Differential cell count method Nom (Bld) Auto Normal [facility] Comment on above: Order Comment: Speci men Type: BLOOD SPECIMENOrdering Facility: [facility] Address: [address] [place] [address] Performed By: #### 5 7021-8 ####JAKE LABORATORYCLIA [id number] [place] [address] [place] Eosinophils (Bld) [#/Vol] 10*3/uL Normal <0.46 [facility] Comment on above: Order Comment: Speci men Type: BLOOD SPECIMENOrdering Facility: [facility] Address: [address] [place] [address] Performed By: #### 5 7021-8 ####JAKE LABORATORYCLIA [id number] [place] [address] [place] Eosinophils/100 WBC (Bld) 0.0 % Normal [facility] Comment on above: Order Comment: Speci men Type: BLOOD SPECIMENOrdering Facility: [facility] Address: [address] [place] [address] Performed By: #### 5 7021-8 ####JAKE LABORATORYCLIA [id number] [address] [place] Erythrocyte distribution width (RBC) [Ratio] 13.9 % Normal 11.5-15.0 [facility] Comment on above: Order Comment: Speci men Type: BLOOD SPECIMENOrdering Facility: [facility] Address: [address] [place] [address] Performed By: #### 5 7021-8 ####[facility] LABORATORYCLIA [id number] [place] [address] [place] Hematocrit (Bld) [Volume fraction] 27.3 % Low 39.0-51.0 [facility] Comment on above: Order Comment: Speci men Type: BLOOD SPECIMENOrdering Facility: [facility] Address: [address] [place] [address] Performed By: #### 5 7021-8 ####[facility] LABORATORYCLIA [id number] [place] [address] [place] Hemoglobin (Bld) [Mass/Vol] 8.9 g/dL Low 13.0-17.0 [facility] Comment on above: Order Comment: Speci men Type: BLOOD SPECIMENOrdering Facility: [facility] Address: [address] [place] [address] Performed By: #### 5 7021-8 ####[facility] LABORATORYCLIA [id number] [place] [address] [place] Immature granulocytes (Bld) [#/Vol] 0.11 10*3/uL High <0.10 [facility] Comment on above: Order Comment: Speci men Type: BLOOD SPECIMENOrdering Facility: [facility] Address: [address] [place] [address] Performed By: #### 5 7021-8 ####[facility] LABORATORYCLIA [id number] [place] [id number] [place] Immature granulocytes/100 WBC (Bld) 0.6 % Normal [facility] Comment on above: Order Comment: Speci men Type: BLOOD SPECIMENOrdering Facility: [facility] Address: [address] [place] [address] Performed By: #### 5 7021-8 ####[facility] LABORATORYCLIA [id number] [address] [place] [facility] Lymphocytes (Bld) [#/Vol] 1.91 10*3/uL Normal 1.00-4.00 [facility] Comment on above: Order Comment: Speci men Type: BLOOD SPECIMENOrdering Facility: [facility] Address: [address] [place] [address] Performed By: #### 5 7021-8 ####[facility] LABORATORYCLIA [id number] [address] Lymphocytes/100 WBC (Bld) 10.2 % Normal [facility] Comment on above: Order Comment: Speci men Type: BLOOD SPECIMENOrdering Facility: [facility] Address: [address] [place] [address] Performed By: #### 5 7021-8 ####[facility] LABORATORYCLIA [id number] [place] [address] [place] MCH (RBC) [Entitic mass] 29.8 pg Normal 26.0-34.0 [facility] Comment on above: Order Comment: Speci men Type: BLOOD SPECIMENOrdering Facility: [facility] Address: [address] [place] [address] Performed By: #### 5 7021-8 ####[facility] LABORATORYCLIA [id number] [place] [address] [place] MCHC (RBC) [Mass/Vol] 32.6 g/dL Normal 30.5-36.0 [facility] Comment on above: Order Comment: Speci men Type: BLOOD SPECIMENOrdering Facility: [facility] Address: [address] [place] [address] Performed By: #### 5 7021-8 ####JA[facility] LABORATORYCLIA [id number] [place] [id number] [place] MCV (RBC) [Entitic vol] 91.3 fL Normal 80.0-100.0 [facility] Comment on above: Order Comment: Speci men Type: BLOOD SPECIMENOrdering Facility: [facility] Address: [address] [place] [address] Performed By: #### 5 7021-8 ####JA[facility] LABORATORYCLIA [id number] [place] [address] [place] Monocytes (Bld) [#/Vol] 0.66 10*3/uL Normal <0.87 [facility] Comment on above: Order Comment: Speci men Type: BLOOD SPECIMENOrdering Facility: [facility] Address: [address] [place] [address] Performed By: #### 5 7021-8 ####[facility] LABORATORYCLIA [id number] [address] [place] Monocytes/100 WBC (Bld) 3.5 % Normal [facility] Comment on above: Order Comment: Speci men Type: BLOOD SPECIMENOrdering Facility: [facility] Address: [address] [place] [address] Performed By: #### 5 7021-8 ####[facility] LABORATORYCLIA [id number] [place] [id number] [place] Neutrophils (Bld) [#/Vol] 15.91 10*3/uL High 1.45-7.50 [facility] Comment on above: Order Comment: Speci men Type: BLOOD SPECIMENOrdering Facility: [facility] Address: [address] [place] [address] Performed By: #### 5 7021-8 ####[facility] LABORATORYCLIA [id number] [place] [id number] [place] Neutrophils/100 WBC (Bld) 85.4 % Normal [facility] Comment on above: Order Comment: Speci men Type: BLOOD SPECIMENOrdering Facility: [facility] Address: [address] [place] [address] Performed By: #### 5 7021-8 ####[facility] LABORATORYCLIA [id number] [place] [id number] [place] Nucleated RBC (Bld) [#/Vol] 10*3/uL Normal <0.01 [facility] Comment on above: Order Comment: Speci men Type: BLOOD SPECIMENOrdering Facility: [facility] Address: [address] [place] [address] Performed By: #### 5 7021-8 ####[facility] LABORATORYCLIA [id number] [place] [address] [place] Nucleated RBC/100 WBC (Bld) [Ratio] 0.0 /100 WBC Normal [facility] Comment on above: Order Comment: Speci men Type: BLOOD SPECIMENOrdering Facility: [facility] Address: [address] [place] [address] Performed By: #### 5 7021-8 ####[facility] LABORATORYCLIA [id number] [place] [id number] [place] Platelet mean volume (Bld) [Entitic vol] 9.5 fL Normal 9.0-12.7 [facility] Comment on above: Order Comment: Speci men Type: BLOOD SPECIMENOrdering Facility: [facility] Address: [address] [place] [address] Performed By: #### 5 7021-8 ####[facility] LABORATORYCLIA [id number] [place] [id number] [place] Platelets (Bld) [#/Vol] 358 10*3/uL Normal 150-400 [facility] Comment on above: Order Comment: Speci men Type: BLOOD SPECIMENOrdering Facility: [facility] Address: [address] [place] [address] Performed By: #### 5 7021-8 ####[facility] LABORATORYCLIA [id number] [place] [id number] [place] RBC (Bld) [#/Vol] 2.99 10*6/uL Low 4.20-6.00 [facility] Comment on above: Order Comment: Speci men Type: BLOOD SPECIMENOrdering Facility: [facility] Address: [address] [place] [address] Performed By: #### 5 7021-8 ####[facility] LABORATORYCLIA [id number] [place] [address] [place] WBC (Bld) [#/Vol] 18.64 10*3/uL High 3.70-11.00 [facility] Comment on above: Order Comment: Speci men Type: BLOOD SPECIMENOrdering Facility: [facility] Address: [address] [place] [address] Performed By: #### 5 7021-8 ####[facility] LABORATORYCLIA [id number] [address] CBC panel Auto (Bld)on 05-15 Erythrocyte distribution width (RBC) [Ratio] 13.7 % Normal 11.5-15.0 [facility] Comment on above: Order Comment: Speci men Type: BLOOD SPECIMENOrdering Facility: [facility] Address: [address] [place] [address] Performed By: #### 5 8410-2 ####[facility] LABORATORYCLIA [id number] [address] [place] Hematocrit (Bld) [Volume fraction] 28.8 % Low 39.0-51.0 [facility] Comment on above: Order Comment: Speci men Type: BLOOD SPECIMENOrdering Facility: [facility] Address: [address] [place] [address] Performed By: #### 5 8410-2 ####[facility] LABORATORYCLIA [id number] [address] [place] Hemoglobin (Bld) [Mass/Vol] 9.5 g/dL Low 13.0-17.0 [facility] Comment on above: Order Comment: Speci men Type: BLOOD SPECIMENOrdering Facility: [facility] Address: [address] [place] [address] Performed By: #### 5 8410-2 ####[facility] LABORATORYCLIA [id number] [address] MCH (RBC) [Entitic mass] 29.8 pg Normal 26.0-34.0 [facility] Comment on above: Order Comment: Speci men Type: BLOOD SPECIMENOrdering Facility: [facility] Address: [address] [place] [address] Performed By: #### 5 8410-2 ####[facility] LABORATORYCLIA [id number] [address] MCHC (RBC) [Mass/Vol] 33.0 g/dL Normal 30.5-36.0 [facility] Comment on above: Order Comment: Speci men Type: BLOOD SPECIMENOrdering Facility: [facility] Address: [address] [place] [address] Performed By: #### 5 8410-2 ####[facility] LABORATORYCLIA [id number] [address] [place] [facility] MCV (RBC) [Entitic vol] 90.3 fL Normal 80.0-100.0 [facility] Comment on above: Order Comment: Speci men Type: BLOOD SPECIMENOrdering Facility: [facility] Address: [address] [place] [address] Performed By: #### 5 8410-2 ####[facility] LABORATORYCLIA [id number] [address] Nucleated RBC (Bld) [#/Vol] 10*3/uL Normal <0.01 [facility] Comment on above: Order Comment: Speci men Type: BLOOD SPECIMENOrdering Facility: [facility] Address: [address] [place] [address] Performed By: #### 5 8410-2 ####[facility] LABORATORYCLIA [id number] [address] [place] Platelet mean volume (Bld) [Entitic vol] 9.2 fL Normal 9.0-12.7 [facility] Comment on above: Order Comment: Speci men Type: BLOOD SPECIMENOrdering Facility: [facility] Address: [address] [place] [address] Performed By: #### 5 8410-2 ####[facility] LABORATORYCLIA [id number] [place] [id number] [place] Platelets (Bld) [#/Vol] 379 10*3/uL Normal 150-400 [facility] Comment on above: Order Comment: Speci men Type: BLOOD SPECIMENOrdering Facility: [facility] Address: [address] [place] [address] Performed By: #### 5 8410-2 ####[facility] LABORATORYCLIA [id number] [place] [id number] [place] RBC (Bld) [#/Vol] 3.19 10*6/uL Low 4.20-6.00 [facility] Comment on above: Order Comment: Speci men Type: BLOOD SPECIMENOrdering Facility: [facility] Address: [address] [place] [address] Performed By: #### 5 8410-2 ####[facility] LABORATORYCLIA [id number] [place] [id number] [place] WBC (Bld) [#/Vol] 22.87 10*3/uL High 3.70-11.00 [facility] Comment on above: Order Comment: Speci men Type: BLOOD SPECIMENOrdering Facility: [facility] Address: [address] [place] [address] Performed By: #### 5 8410-2 ####[facility] LABORATORYCLIA [id number] [place] [id number] [place] Lactate (Bld) [Moles/Vol]on 05-15-2023 Lactate [Moles/Vol] 3.7 mmol/L High 0.5-2.2 [facility] Comment on above: Order Comment: Speci men Type: BLOOD SPECIMENOrdering Facility: [facility] Address: [address] [place] [address] Performed By: #### 3 2693-4 ####[facility] LABORATORYCLIA [id number] [place] [address] [place] Lactate [Moles/Vol] 2.9 mmol/L High 0.5-2.2 [facility] Comment on above: Order Comment: Speci men Type: BLOOD SPECIMENOrdering Facility: [facility] Address: [address] [place] [address] Performed By: #### 3 2693-4 ####[facility] LABORATORYCLIA [id number] [place] [id number] [place] Magnesium SerPl-mCncon 05-15 Magnesium [Mass/Vol] 2.2 mg/dL Normal 1.7-2.3 [facility] Comment on above: Order Comment: Speci men Type: BLOOD SPECIMENOrdering Facility: [facility] Address: [address] [place] [id number] Performed By: #### 2 432-2, ####[facility] LABORATORYCLIA [id number] [place] [id number] [place] ANES PRE-OPon 05-14-2023 ANES PRE-OP Normal [facility] BRIEF OP NOTon 05-14-2023 BRIEF OP NOT Normal [facility] Basic metabolic 2000 panelon 05-14-2023 Anion gap [Moles/Vol] 12 mmol/L Normal 9-18 [facility] Comment on above: Order Comment: Speci men Type: BLOOD SPECIMENOrdering Facility: [facility] Address: [address] [place] [address] Performed By: #### 2 4321-2, ####[facility] LABORATORYCLIA [id number] [place] [address] [place] Calcium [Mass/Vol] 8.2 mg/dL Low 8.5-10.2 [facility] Comment on above: Order Comment: Speci men Type: BLOOD SPECIMENOrdering Facility: [facility] Address: [address] [place] [address] Performed By: #### 2 4321-2, ####[facility] LABORATORYCLIA [id number] [place] [id number] [place] Chloride [Moles/Vol] 102 mmol/L Normal 97-105 [facility] Comment on above: Order Comment: Speci men Type: BLOOD SPECIMENOrdering Facility: [facility] Address: [address] [place] [address] Performed By: #### 2 4321-2, ####JA[facility] LABORATORYCLIA [id number] [place] [id number] [place] CO2 [Moles/Vol] 21 mmol/L Low 22-30 [facility] Comment on above: Order Comment: Speci men Type: BLOOD SPECIMENOrdering Facility: [facility] Address: [address] [place] [address] Performed By: #### 2 4321-2, ####[facility] LABORATORYCLIA [id number] [place] [id number] [place] Creatinine [Mass/Vol] 0.89 mg/dL Normal 0.73-1.22 [facility] Comment on above: Order Comment: Speci men Type: BLOOD SPECIMENOrdering Facility: [facility] Address: [address] [place] [address] Performed By: #### 2 4321-2, ####[facility] LABORATORYCLIA [id number] [address] Creatinine and Glomerular filtration rate.predicted panel (S/P/Bld) 97 mL/min/1.73m??? Normal >=60 [facility] Comment on above: Order Comment: Speci men Type: BLOOD SPECIMENOrdering Facility: [facility] Address: [address] [place] [address] Result Comment: Chirag mated Glomerular Filtration Rate (eGFR) is calculated using the 2020 CKD-EPI creatinine equation. This equation utilizes serum creatinine, sex, and age as parameters. The creatinine assay has traceable calibration to isotope dilution-mass spectrometry. Refer to KDIGO guidelines for clinical interpretation. In patients with unstable renal function, e.g. those with acute kidney injury, the eGFR may not accurately reflect actual GFR. Performed By: #### 2 4320-06, ####[facility] LABORATORYCLIA [id number] [place] [address] [place] Glucose [Mass/Vol] 139 mg/dL High 74-99 [facility] Comment on above: Order Comment: Speci men Type: BLOOD SPECIMENOrdering Facility: [facility] Address: [address] [place] [address] Result Comment: The [place] [employer] (ADA) provides guidance for cutoff values for fasting glucose and random glucose. The ADA defines fasting as no caloric intake for at least 8 hours. Fasting plasma glucose results between 100 to 125 mg/dL indicate increased risk for diabetes (prediabetes).Fasting plasma glucose results greater than or equal to 126 mg/dL meet the criteria for diagnosis of diabetes. In the absence of unequivocal hyperglycemia, results should be confirmed by repeat testing. In a patient with classic symptoms of hyperglycemia or hyperglycemic crisis, random plasma glucose results greater than or equal to 200 mg/dL meet the criteria for diagnosis of diabetes.Reference: Standards of Medical Care in Diabetes 2016, [place] [employer]. Diabetes Care. 2016.39(Suppl 1). Performed By: #### 2 4320-06, ####[facility] LABORATORYCLIA [id number] [place] [id number] [place] Potassium [Moles/Vol] 4.7 mmol/L Normal 3.7-5.1 [facility] Comment on above: Order Comment: Speci men Type: BLOOD SPECIMENOrdering Facility: [facility] Address: [address] [place] [address] Performed By: #### 2 4320-06, ####[facility] LABORATORYCLIA [id number] [place] [id number] [place] Sodium [Moles/Vol] 135 mmol/L Low 136-144 [facility] Comment on above: Order Comment: Speci men Type: BLOOD SPECIMENOrdering Facility: [facility] Address: [address] [place] [address] Performed By: #### 2 4320-06, ####[facility] LABORATORYCLIA [id number] [place] [id number] [place] Urea nitrogen [Mass/Vol] 18 mg/dL Normal 9-24 [facility] Comment on above: Order Comment: Speci men Type: BLOOD SPECIMENOrdering Facility: [facility] Address: [address] [place] [address] Performed By: #### 2 4321-2, 09698-1 ####JA[facility] LABORATORYCLIA [id number] [place] [address] [place] CBC W Auto Differential pane l (Bld)on 05-14-2023 Basophils (Bld) [#/Vol] 0.10 10*3/uL Normal <0.11 [facility] Comment on above: Order Comment: Speci men Type: BLOOD SPECIMENOrdering Facility: [facility] Address: [address] [place] [address] Performed By: #### 5 7021-8 ####JA[facility] LABORATORYCLIA [id number] [place] [address] [place] Basophils/100 WBC (Bld) 0.5 % Normal [facility] Comment on above: Order Comment: Speci men Type: BLOOD SPECIMENOrdering Facility: [facility] Address: [address] [place] [address] Performed By: #### 5 7021-8 ####[facility] LABORATORYCLIA [id number] [place] [address] [place] Differential cell count method Nom (Bld) Auto Normal [facility] Comment on above: Order Comment: Speci men Type: BLOOD SPECIMENOrdering Facility: [facility] Address: [address] [place] [address] Performed By: #### 5 7021-8 ####JA[facility] LABORATORYCLIA [id number] [place] [id number] [place] Eosinophils (Bld) [#/Vol] 10*3/uL Normal <0.46 [facility] Comment on above: Order Comment: Speci men Type: BLOOD SPECIMENOrdering Facility: [facility] Address: [address] [place] [address] Performed By: #### 5 7021-8 ####JA[facility] LABORATORYCLIA [id number] [place] [address] [place] Eosinophils/100 WBC (Bld) 0.0 % Normal [facility] Comment on above: Order Comment: Speci men Type: BLOOD SPECIMENOrdering Facility: [facility] Address: [address] [place] [address] Performed By: #### 5 7021-8 ####JA[facility] LABORATORYCLIA [id number] [place] [address] [place] Erythrocyte distribution width (RBC) [Ratio] 13.8 % Normal 11.5-15.0 [facility] Comment on above: Order Comment: Speci men Type: BLOOD SPECIMENOrdering Facility: [facility] Address: [address] [place] [address] Performed By: #### 5 7021-8 ####JA[facility] LABORATORYCLIA [id number] [place] [address] [place] Hematocrit (Bld) [Volume fraction] 25.8 % Low 39.0-51.0 [facility] Comment on above: Order Comment: Speci men Type: BLOOD SPECIMENOrdering Facility: [facility] Address: [address] [place] [address] Performed By: #### 5 7021-8 ####JA[facility] LABORATORYCLIA [id number] [place] [address] [place] Hemoglobin (Bld) [Mass/Vol] 8.3 g/dL Low 13.0-17.0 [facility] Comment on above: Order Comment: Speci men Type: BLOOD SPECIMENOrdering Facility: [facility] Address: [address] [place] [address] Performed By: #### 5 7021-8 ####[facility] LABORATORYCLIA [id number] [place] [address] [place] Immature granulocytes (Bld) [#/Vol] 0.17 10*3/uL High <0.10 [facility] Comment on above: Order Comment: Speci men Type: BLOOD SPECIMENOrdering Facility: [facility] Address: [address] [place] [address] Performed By: #### 5 7021-8 ####[facility] LABORATORYCLIA [id number] [place] [id number] [place] Immature granulocytes/100 WBC (Bld) 0.8 % Normal [facility] Comment on above: Order Comment: Speci men Type: BLOOD SPECIMENOrdering Facility: [facility] Address: [address] [place] [address] Performed By: #### 5 7021-8 ####[facility] LABORATORYCLIA [id number] [place] [address] [place] Lymphocytes (Bld) [#/Vol] 2.10 10*3/uL Normal 1.00-4.00 [facility] Comment on above: Order Comment: Speci men Type: BLOOD SPECIMENOrdering Facility: [facility] Address: [address] [place] [address] Performed By: #### 5 7021-8 ####[facility] LABORATORYCLIA [id number] [place] [address] [place] Lymphocytes/100 WBC (Bld) 10.2 % Normal [facility] Comment on above: Order Comment: Speci men Type: BLOOD SPECIMENOrdering Facility: [facility] Address: [address] [place] [address] Performed By: #### 5 7021-8 ####[facility] LABORATORYCLIA [id number] [place] [address] [place] MCH (RBC) [Entitic mass] 29.2 pg Normal 26.0-34.0 [facility] Comment on above: Order Comment: Speci men Type: BLOOD SPECIMENOrdering Facility: [facility] Address: [address] [place] [address] Performed By: #### 5 7021-8 ####[facility] LABORATORYCLIA [id number] [address] [place] MCHC (RBC) [Mass/Vol] 32.2 g/dL Normal 30.5-36.0 [facility] Comment on above: Order Comment: Speci men Type: BLOOD SPECIMENOrdering Facility: [facility] Address: [address] [place] [address] Performed By: #### 5 7021-8 ####[facility] LABORATORYCLIA [id number] [place] [id number] [place] MCV (RBC) [Entitic vol] 90.8 fL Normal 80.0-100.0 [facility] Comment on above: Order Comment: Speci men Type: BLOOD SPECIMENOrdering Facility: [facility] Address: [address] [place] [address] Performed By: #### 5 7021-8 ####[facility] LABORATORYCLIA [id number] [place] [id number] [place] Monocytes (Bld) [#/Vol] 0.47 10*3/uL Normal <0.87 [facility] Comment on above: Order Comment: Speci men Type: BLOOD SPECIMENOrdering Facility: [facility] Address: [address] [place] [address] Performed By: #### 5 7021-8 ####[facility] LABORATORYCLIA [id number] [place] [address] [place] Monocytes/100 WBC (Bld) 2.3 % Normal [facility] Comment on above: Order Comment: Speci men Type: BLOOD SPECIMENOrdering Facility: [facility] Address: [address] [place] [address] Performed By: #### 5 7021-8 ####[facility] LABORATORYCLIA [id number] [place] [id number] [place] Neutrophils (Bld) [#/Vol] 17.83 10*3/uL High 1.45-7.50 [facility] Comment on above: Order Comment: Speci men Type: BLOOD SPECIMENOrdering Facility: [facility] Address: [address] [place] [address] Performed By: #### 5 7021-8 ####[facility] LABORATORYCLIA [id number] [address] [place] Neutrophils/100 WBC (Bld) 86.2 % Normal [facility] Comment on above: Order Comment: Speci men Type: BLOOD SPECIMENOrdering Facility: [facility] Address: [address] [place] [address] Performed By: #### 5 7021-8 ####[facility] LABORATORYCLIA [id number] [place] [id number] [place] Nucleated RBC (Bld) [#/Vol] 10*3/uL Normal <0.01 [facility] Comment on above: Order Comment: Speci men Type: BLOOD SPECIMENOrdering Facility: [facility] Address: [address] [place] [address] Performed By: #### 5 7021-8 ####[facility] LABORATORYCLIA [id number] [place] [address] [place] Nucleated RBC/100 WBC (Bld) [Ratio] 0.0 /100 WBC Normal [facility] Comment on above: Order Comment: Speci men Type: BLOOD SPECIMENOrdering Facility: [facility] Address: [address] [place] [address] Performed By: #### 5 7021-8 ####LAPINE LABORATORYCLIA [id number] [place] [address] [place] Platelet mean volume (Bld) [Entitic vol] 9.5 fL Normal 9.0-12.7 [facility] Comment on above: Order Comment: Speci men Type: BLOOD SPECIMENOrdering Facility: [facility] Address: [address] [place] [address] Performed By: #### 5 7021-8 ####LAPINE LABORATORYCLIA [id number] [place] [id number] [place] Platelets (Bld) [#/Vol] 386 10*3/uL Normal 150-400 [facility] Comment on above: Order Comment: Speci men Type: BLOOD SPECIMENOrdering Facility: [facility] Address: [address] [place] [address] Performed By: #### 5 7021-8 ####LAPINE LABORATORYCLIA [id number] [place] [id number] [place] RBC (Bld) [#/Vol] 2.84 10*6/uL Low 4.20-6.00 [facility] Comment on above: Order Comment: Speci men Type: BLOOD SPECIMENOrdering Facility: [facility] Address: [address] [place] [address] Performed By: #### 5 7021-8 ####JAKE LABORATORYCLIA [id number] [place] [id number] [facility] WBC (Bld) [#/Vol] 20.67 10*3/uL High 3.70-11.00 [facility] Comment on above: Order Comment: Speci men Type: BLOOD SPECIMENOrdering Facility: [facility] Address: [address] [place] [address] Performed By: #### 5 7021-8 ####JAKE LABORATORYCLIA [id number] [place] [id number] [facility] CBC panel Auto (Bld)on 05-14 Erythrocyte distribution width (RBC) [Ratio] 13.8 % Normal 11.5-15.0 [facility] Comment on above: Order Comment: Speci men Type: BLOOD SPECIMENOrdering Facility: [facility] Address: [address] [place] [address] Performed By: #### 5 8410-2 ####LAPINE LABORATORYCLIA [id number] [address] Hematocrit (Bld) [Volume fraction] 30.5 % Low 39.0-51.0 [facility] Comment on above: Order Comment: Speci men Type: BLOOD SPECIMENOrdering Facility: [facility] Address: [address] [place] [address] Performed By: #### 5 8410-2 ####[facility] LABORATORYCLIA [id number] [address] Hemoglobin (Bld) [Mass/Vol] 9.8 g/dL Low 13.0-17.0 [facility] Comment on above: Order Comment: Speci men Type: BLOOD SPECIMENOrdering Facility: [facility] Address: [address] [place] [address] Performed By: #### 5 8410-2 ####[facility] LABORATORYCLIA [id number] [address] MCH (RBC) [Entitic mass] 29.3 pg Normal 26.0-34.0 [facility] Comment on above: Order Comment: Speci men Type: BLOOD SPECIMENOrdering Facility: [facility] Address: [address] [place] [address] Performed By: #### 5 8410-2 ####JAKE LABORATORYCLIA [id number] [address] [place] [facility] MCHC (RBC) [Mass/Vol] 32.1 g/dL Normal 30.5-36.0 [facility] Comment on above: Order Comment: Speci men Type: BLOOD SPECIMENOrdering Facility: [facility] Address: [address] [place] [address] Performed By: #### 5 8410-2 ####[facility] LABORATORYCLIA [id number] [address] [place] [facility] MCV (RBC) [Entitic vol] 91.3 fL Normal 80.0-100.0 [facility] Comment on above: Order Comment: Speci men Type: BLOOD SPECIMENOrdering Facility: [facility] Address: [address] [place] [address] Performed By: #### 5 8410-2 ####JAKE LABORATORYCLIA [id number] [address] Nucleated RBC (Bld) [#/Vol] 10*3/uL Normal <0.01 [facility] Comment on above: Order Comment: Speci men Type: BLOOD SPECIMENOrdering Facility: [facility] Address: [address] [place] [address] Performed By: #### 5 8410-2 ####[facility] LABORATORYCLIA [id number] [address] [place] Platelet mean volume (Bld) [Entitic vol] 9.5 fL Normal 9.0-12.7 [facility] Comment on above: Order Comment: Speci men Type: BLOOD SPECIMENOrdering Facility: [facility] Address: [address] [place] [address] Performed By: #### 5 8410-2 ####LAPINE LABORATORYCLIA [id number] [place] [id number] [place] Platelets (Bld) [#/Vol] 451 10*3/uL High 150-400 [facility] Comment on above: Order Comment: Speci men Type: BLOOD SPECIMENOrdering Facility: [facility] Address: [address] [place] [address] Performed By: #### 5 8410-2 ####LAPINE LABORATORYCLIA [id number] [place] [id number] [place] RBC (Bld) [#/Vol] 3.34 10*6/uL Low 4.20-6.00 [facility] Comment on above: Order Comment: Speci men Type: BLOOD SPECIMENOrdering Facility: [facility] Address: [address] [place] [address] Performed By: #### 5 8410-2 ####LAPINE LABORATORYCLIA [id number] [place] [id number] [place] WBC (Bld) [#/Vol] 18.73 10*3/uL High 3.70-11.00 [facility] Comment on above: Order Comment: Speci men Type: BLOOD SPECIMENOrdering Facility: [facility] Address: [address] [place] [address] Performed By: #### 5 8410-2 ####LAPINE LABORATORYCLIA [id number] [place] [id number] [facility] [place] ECG COMPLETEon 05-14-2023 ECG COMPLETE Normal [facility] Fibrinogen PPP-mCncon 2023 Fibrinogen Coag (PPP) [Mass/Vol] 177 mg/dL Low 200-400 [facility] Comment on above: Order Comment: Speci men Type: BLOOD SPECIMENOrdering Facility: [facility] Address: [address] [place] [address] Performed By: #### 3 255-7, 04026-3, 98549-7 ####LAPINE LABORATORYCLIA [id number] [place] [id number] [place] Lactate (Bld) [Moles/Vol]on 05-14-2023 Lactate [Moles/Vol] 3.4 mmol/L High 0.5-2.2 [facility] Comment on above: Order Comment: Ariana rodriguez Type: BLOOD SPECIMENOrdering Facility: [facility] Address: [address] [place] [address] Performed By: #### 3 2693-4 ####LAPINE LABORATORYCLIA [id number] [place] [id number] [place] Magnesium SerPl-mCncon 05-14 Magnesium [Mass/Vol] 1.7 mg/dL Normal 1.7-2.3 [facility] Comment on above: Order Comment: Ariana rodriguez Type: BLOOD SPECIMENOrdering Facility: [facility] Address: [address] [place] [address] Performed By: #### 2 4321-2, 18853-7 ####LAPINE LABORATORYCLIA [id number] [place] [id number] [place] NURSING PROGon 05-14-2023 NURSING PROG Normal [facility] OPERATIVE NOon 05-14-2023 OPERATIVE NO Normal [facility] PT panel Coag (PPP)on 2023 INR Coag (PPP) [Relative time] 1.0 {INR} Normal 0.9-1.3 [facility] Comment on above: Order Comment: Ariana rodriguez Type: BLOOD SPECIMENOrdering Facility: [facility] Address: [address] [place] [address] Result Comment: Isa min K Antagonist (VKA) Therapeutic Range: INR 2 to 3 (Target INR of 2.5)Note: For patients treated with VKA drugs, such as warfarin, the [place] [employer] 2012 Guideline recommends a therapeutic INR range of 2 to 3 (target INR of 2.5). This recommendation includes high-risk patients with antiphospholipid syndrome with previous arterial or venous thromboembolism, current-generation mechanical or bioprosthetic aortic heart valve replacement.Note: Patients with mechanical aortic valve replacement and additional risk factors for thromboembolic events (atrial fibrillation, previous thromboembolism, LV dysfunction, hypercoagulable conditions) or an older generation mechanical AVR (i.e., ball in-Cage) or any mechanical MVR should have a INR therapeutic range of 2.5 to 3.5 (target INR of 3).[place] PARKER, et al. Chest 2012, 141:7S-47SNishimanselmo RA, et al. JAC 2017, 70: 252-289 Performed By: #### 3 255-7, 05034-7, 22533-8 ####LAPINE LABORATORYCLIA [id number] [place] [id number] [place] PT Coag (PPP) [Time] 11.6 s Normal 9.7-13.0 [facility] Comment on above: Order Comment: Speci men Type: BLOOD SPECIMENOrdering Facility: [facility] Address: [address] [place] [address] Performed By: #### 3 255-7, 45287-0, 67112-3 ####LAPINE LABORATORYCLIA [id number] [place] [id number] [facility] TYPE + SCREENon 05-14-2023 ABO O Normal [facility] Comment on above: Order Comment: Speci men Type: BLOOD SPECIMENOrdering Facility: [facility] Address: [address] [place] [address] Performed By: #### T SCR ####LAPINE BLOOD BANKCLIA [id number] [address] HISTORICAL AB SCR STATUS Negative [facility] Comment on above: Order Comment: Speci men Type: BLOOD SPECIMENOrdering Facility: [facility] Address: [address] [place] [address] Performed By: #### T SCR ####LAPINE BLOOD BANKCLIA [id number] [place] [id number] [facility] [place] Rh Nom (Bld) Positive Normal [facility] Comment on above: Order Comment: Speci men Type: BLOOD SPECIMENOrdering Facility: [facility] Address: [address] [place] [address] Performed By: #### T SCR ####LAPINE BLOOD BANKCLIA [id number] [address] OF [facility] TYPE AND SCREEN EXPIRATION 05/17/2023 23:59 Normal [facility] Comment on above: Order Comment: Speci men Type: BLOOD SPECIMENOrdering Facility: [facility] Address: [place] [address] Performed By: #### T SCR ####LAPINE BLOOD BANKCLIA [id number] [place] [id number] [place] aPTT PPPon 05-14-2023 aPTT Coag (PPP) [Time] 26.8 s Normal 23.0-32.4 [facility] Comment on above: Order Comment: Speci men Type: BLOOD SPECIMENOrdering Facility: [facility] Address: [place] [address] Performed By: #### 3 255-7, 06242-0, 72729-5 ####LAPINE LABORATORYCLIA [id number] [place] [address] [place] NURSING PROGon 05-06-2023 NURSING PROG Normal [facility] ALLIED HEALTHon 04-30-2023 ALLIED HEALTH Normal [facility] Basic metabolic 2000 panelon 04-30-2023 Anion gap [Moles/Vol] 14 mmol/L Normal 9-18 [facility] Comment on above: Order Comment: Speci men Type: BLOOD SPECIMENOrdering Facility: [facility] Address: [place] [address] Performed By: #### 2 4321-2, , 2776-05 ####LAPINE LABORATORYCLIA [id number] [place] [id number] [place] Calcium [Mass/Vol] 9.0 mg/dL Normal 8.5-10.2 [facility] Comment on above: Order Comment: Speci men Type: BLOOD SPECIMENOrdering Facility: [facility] Address: [place] [address] Performed By: #### 2 4321-2, , 2776-05 ####LAPINE LABORATORYCLIA [id number] [place] [id number] [place] Chloride [Moles/Vol] 100 mmol/L Normal 97-105 [facility] Comment on above: Order Comment: Speci men Type: BLOOD SPECIMENOrdering Facility: [facility] Address: [place] [address] Performed By: #### 2 4321-2, , 2776-05 ####JAKE LABORATORYCLIA [id number] [place] [id number] [place] CO2 [Moles/Vol] 23 mmol/L Normal 22-30 [facility] Comment on above: Order Comment: Speci men Type: BLOOD SPECIMENOrdering Facility: [facility] Address: [address] [place] [address] Performed By: #### 2 432-2, , 2776-05 ####[facility] LABORATORYCLIA [id number] [place] [id number] [place] Creatinine [Mass/Vol] 1.02 mg/dL Normal 0.73-1.22 [facility] Comment on above: Order Comment: Speci men Type: BLOOD SPECIMENOrdering Facility: [facility] Address: [address] [place] [address] Performed By: #### 2 432-2, , 2776-05 ####JAKE LABORATORYCLIA [id number] [place] [id number] [place] Creatinine and Glomerular filtration rate.predicted panel (S/P/Bld) 84 mL/min/1.73m??? Normal >=60 [facility] Comment on above: Order Comment: Speci men Type: BLOOD SPECIMENOrdering Facility: [facility] Address: [address] [place] [address] Result Comment: Chirag mated Glomerular Filtration Rate (eGFR) is calculated using the 2020 CKD-EPI creatinine equation. This equation utilizes serum creatinine, sex, and age as parameters. The creatinine assay has traceable calibration to isotope dilution-mass spectrometry. Refer to KDIGO guidelines for clinical interpretation. In patients with unstable renal function, e.g. those with acute kidney injury, the eGFR may not accurately reflect actual GFR. Performed By: #### 2 4321-2, , 2776-05 ####JAKE LABORATORYCLIA [id number] [place] [id number] [place] Glucose [Mass/Vol] 75 mg/dL Normal 74-99 [facility] Comment on above: Order Comment: Speci men Type: BLOOD SPECIMENOrdering Facility: [facility] Address: [place] [address] Result Comment: The [place] [employer] (ADA) provides guidance for cutoff values for fasting glucose and random glucose. The ADA defines fasting as no caloric intake for at least 8 hours. Fasting plasma glucose results between 100 to 125 mg/dL indicate increased risk for diabetes (prediabetes).Fasting plasma glucose results greater than or equal to 126 mg/dL meet the criteria for diagnosis of diabetes. In the absence of unequivocal hyperglycemia, results should be confirmed by repeat testing. In a patient with classic symptoms of hyperglycemia or hyperglycemic crisis, random plasma glucose results greater than or equal to 200 mg/dL meet the criteria for diagnosis of diabetes.Reference: Standards of Medical Care in Diabetes 2016, [place] [employer]. Diabetes Care. 2016.39(Suppl 1). Performed By: #### 2 4321-2, , 2776-05 ####LAPINE LABORATORYCLIA [id number] [place] [address] [place] Potassium [Moles/Vol] 4.1 mmol/L Normal 3.7-5.1 [facility] Comment on above: Order Comment: Ariana michael Type: BLOOD SPECIMENOrdering Facility: [facility] Address: [place] [address] Performed By: #### 2 4321-2, , 2776-05 ####LAPINE LABORATORYCLIA [id number] [place] [id number] [place] Sodium [Moles/Vol] 137 mmol/L Normal 136-144 [facility] Comment on above: Order Comment: Bebai men Type: BLOOD SPECIMENOrdering Facility: [facility] Address: [place] [address] Performed By: #### 2 4321-2, , 2776-05 ####LAPINE LABORATORYCLIA [id number] [place] [id number] [place] Urea nitrogen [Mass/Vol] 10 mg/dL Normal 9-24 [facility] Comment on above: Order Comment: Speci men Type: BLOOD SPECIMENOrdering Facility: [facility] Address: [address] [place] [address] Performed By: #### 2 4321-2, 95317-5, 2777-1 ####[facility] LABORATORYCLIA [id number] [place] [id number] [place] CASE MANAGEMon 04-30-2023 CASE MANAGEM Normal [facility] CBC panel Auto (Bld)on 04-30 Erythrocyte distribution width (RBC) [Ratio] 14.6 % Normal 11.5-15.0 [facility] Comment on above: Order Comment: Speci men Type: BLOOD SPECIMENOrdering Facility: [facility] Address: [address] [place] [address] Performed By: #### 5 8410-2 ####JAKE LABORATORYCLIA [id number] [address] [place] Hematocrit (Bld) [Volume fraction] 37.3 % Low 39.0-51.0 [facility] Comment on above: Order Comment: Speci men Type: BLOOD SPECIMENOrdering Facility: [facility] Address: [address] [place] [address] Performed By: #### 5 8410-2 ####JAKE LABORATORYCLIA [id number] [place] [address] [place] Hemoglobin (Bld) [Mass/Vol] 11.9 g/dL Low 13.0-17.0 [facility] Comment on above: Order Comment: Speci men Type: BLOOD SPECIMENOrdering Facility: [facility] Address: [address] [place] [address] Performed By: #### 5 8410-2 ####JAKE LABORATORYCLIA [id number] [place] [address] [place] MCH (RBC) [Entitic mass] 29.9 pg Normal 26.0-34.0 [facility] Comment on above: Order Comment: Speci men Type: BLOOD SPECIMENOrdering Facility: [facility] Address: [address] [place] [address] Performed By: #### 5 8410-2 ####JAKE LABORATORYCLIA [id number] [address] [place] MCHC (RBC) [Mass/Vol] 31.9 g/dL Normal 30.5-36.0 [facility] Comment on above: Order Comment: Speci men Type: BLOOD SPECIMENOrdering Facility: [facility] Address: [address] [place] [address] Performed By: #### 5 8410-2 ####JAKE LABORATORYCLIA [id number] [address] [place] MCV (RBC) [Entitic vol] 93.7 fL Normal 80.0-100.0 [facility] Comment on above: Order Comment: Speci men Type: BLOOD SPECIMENOrdering Facility: [facility] Address: [address] [place] [address] Performed By: #### 5 8410-2 ####JAKE LABORATORYCLIA [id number] [address] [place] Nucleated RBC (Bld) [#/Vol] 10*3/uL Normal <0.01 [facility] Comment on above: Order Comment: Speci men Type: BLOOD SPECIMENOrdering Facility: [facility] Address: [address] [place] [address] Performed By: #### 5 8410-2 ####JAKE LABORATORYCLIA [id number] [place] [address] [place] Platelet mean volume (Bld) [Entitic vol] 9.6 fL Normal 9.0-12.7 [facility] Comment on above: Order Comment: Speci men Type: BLOOD SPECIMENOrdering Facility: [facility] Address: [address] [place] [address] Performed By: #### 5 8410-2 ####[facility] LABORATORYCLIA [id number] [place] [address] [place] Platelets (Bld) [#/Vol] 290 10*3/uL Normal 150-400 [facility] Comment on above: Order Comment: Speci men Type: BLOOD SPECIMENOrdering Facility: [facility] Address: [address] [place] [address] Performed By: #### 5 8410-2 ####LAPINE LABORATORYCLIA [id number] [place] [address] [place] RBC (Bld) [#/Vol] 3.98 10*6/uL Low 4.20-6.00 [facility] Comment on above: Order Comment: Speci men Type: BLOOD SPECIMENOrdering Facility: [facility] Address: [address] [place] [address] Performed By: #### 5 8410-2 ####LAPINE LABORATORYCLIA [id number] [place] [id number] [place] WBC (Bld) [#/Vol] 13.30 10*3/uL High 3.70-11.00 [facility] Comment on above: Order Comment: Speci men Type: BLOOD SPECIMENOrdering Facility: [facility] Address: [address] [place] [address] Performed By: #### 5 8410-2 ####LAPINE LABORATORYCLIA [id number] [place] [id number] [place] CNDSon 04-30-2023 CNDS Normal [facility] ECHO LIMITEDon 04-30-2023 ECHO LIMITED Normal [facility] Magnesium SerPl-mCncon 04-30 Magnesium [Mass/Vol] 2.2 mg/dL Normal 1.7-2.3 [facility] Comment on above: Order Comment: Speci men Type: BLOOD SPECIMENOrdering Facility: [facility] Address: [address] [place] [address] Performed By: #### 2 4321-2, 37407-8, 2777-1 ####LAPINE LABORATORYCLIA [id number] [place] [id number] [place] PTT, ANTICOAGULANT THERAPYon 04-30-2023 aPTT Coag (PPP) [Time] 72.7 s High 23.0-32.4 [facility] Comment on above: Order Comment: Speci men Type: BLOOD SPECIMENOrdering Facility: [facility] Address: [address] [place] [address] Performed By: #### P TTAC ####LAPINE LABORATORYCLIA [id number] [place] [id number] [place] Phosphate SerPl-mCncon 04-30 Phosphate [Mass/Vol] 4.1 mg/dL Normal 2.7-4.8 [facility] Comment on above: Order Comment: Speci men Type: BLOOD SPECIMENOrdering Facility: [facility] Address: [place] [address] Performed By: #### 2 4321-2, 89304-5, 2777-1 ####LAPINE LABORATORYCLIA [id number] [place] [address] [place] US LEG VEIN MAP KATIE VAS LABo n 04-30-2023 US LEG VEIN MAP KATIE VAS LAB Normal [facility] aPTT PPPon 04-30-2023 aPTT Coag (PPP) [Time] 39.7 s High 23.0-32.4 [facility] Comment on above: Order Comment: Speci men Type: BLOOD SPECIMENOrdering Facility: [facility] Address: [place] [address] Performed By: #### 1 4979-9 ####LAPINE LABORATORYCLIA [id number] [address] [place] aPTT Coag (PPP) [Time] 79.4 s High 23.0-32.4 [facility] Comment on above: Order Comment: Speci men Type: BLOOD SPECIMENOrdering Facility: [facility] Address: [place] [address] Performed By: #### 1 4979-9 ####LAPINE LABORATORYCLIA [id number] [place] [id number] [place] BRIEF OP NOTon 04-29-2023 BRIEF OP NOT Normal [facility] Basic metabolic 2000 panelon 04-29-2023 Anion gap [Moles/Vol] 10 mmol/L Normal -18 [facility] Comment on above: Order Comment: Speci men Type: BLOOD SPECIMENOrdering Facility: [facility] Address: [place] [address] Performed By: #### 2 4321-2, , 2776-05 ####LAPINE LABORATORYCLIA [id number] [place] [address] [place] Calcium [Mass/Vol] 8.5 mg/dL Normal 8.5-10.2 [facility] Comment on above: Order Comment: Speci men Type: BLOOD SPECIMENOrdering Facility: [facility] Address: [address] [place] [address] Performed By: #### 2 4321-2, , 2776-05 ####LAPINE LABORATORYCLIA [id number] [place] [id number] [place] Chloride [Moles/Vol] 103 mmol/L Normal 97-105 [facility] Comment on above: Order Comment: Speci men Type: BLOOD SPECIMENOrdering Facility: [facility] Address: [address] [place] [address] Performed By: #### 2 4321-2, , 2776-05 ####LAPINE LABORATORYCLIA [id number] [place] [id number] [place] CO2 [Moles/Vol] 25 mmol/L Normal 22-30 [facility] Comment on above: Order Comment: Speci men Type: BLOOD SPECIMENOrdering Facility: [facility] Address: [address] [place] [address] Performed By: #### 2 4321-2, , 2776-05 ####LAPINE LABORATORYCLIA [id number] [place] [id number] [place] Creatinine [Mass/Vol] 0.87 mg/dL Normal 0.73-1.22 [facility] Comment on above: Order Comment: Speci men Type: BLOOD SPECIMENOrdering Facility: [facility] Address: [address] [place] [address] Performed By: #### 2 4321-2, , 2776-05 ####LAPINE LABORATORYCLIA [id number] [place] [address] [place] Creatinine and Glomerular filtration rate.predicted panel (S/P/Bld) 98 mL/min/1.73m??? Normal >=60 [facility] Comment on above: Order Comment: Ariana rodriguez Type: BLOOD SPECIMENOrdering Facility: [facility] Address: [address] [place] [address] Result Comment: Chirag mated Glomerular Filtration Rate (eGFR) is calculated using the 2020 CKD-EPI creatinine equation. This equation utilizes serum creatinine, sex, and age as parameters. The creatinine assay has traceable calibration to isotope dilution-mass spectrometry. Refer to KDIGO guidelines for clinical interpretation. In patients with unstable renal function, e.g. those with acute kidney injury, the eGFR may not accurately reflect actual GFR. Performed By: #### 2 4321-2, , 2776-05 ####LAPINE LABORATORYCLIA [id number] [place] [id number] [place] Glucose [Mass/Vol] 100 mg/dL High 74-99 [facility] Comment on above: Order Comment: Ariana rodriguez Type: BLOOD SPECIMENOrdering Facility: [facility] Address: [address] [place] [address] Result Comment: The [place] [employer] (ADA) provides guidance for cutoff values for fasting glucose and random glucose. The ADA defines fasting as no caloric intake for at least 8 hours. Fasting plasma glucose results between 100 to 125 mg/dL indicate increased risk for diabetes (prediabetes).Fasting plasma glucose results greater than or equal to 126 mg/dL meet the criteria for diagnosis of diabetes. In the absence of unequivocal hyperglycemia, results should be confirmed by repeat testing. In a patient with classic symptoms of hyperglycemia or hyperglycemic crisis, random plasma glucose results greater than or equal to 200 mg/dL meet the criteria for diagnosis of diabetes.Reference: Standards of Medical Care in Diabetes 2016, [place] [employer]. Diabetes Care. 2016.39(Suppl 1). Performed By: #### 2 4321-2, , 2776-05 ####LAPINE LABORATORYCLIA [id number] [place] [id number] [place] Potassium [Moles/Vol] 3.9 mmol/L Normal 3.7-5.1 [facility] Comment on above: Order Comment: Ariana rodriguez Type: BLOOD SPECIMENOrdering Facility: [facility] Address: [address] [place] [address] Performed By: #### 2 4321-2, , 2776-05 ####LAPINE LABORATORYCLIA [id number] [place] [id number] [place] Sodium [Moles/Vol] 138 mmol/L Normal 136-144 [facility] Comment on above: Order Comment: Speci men Type: BLOOD SPECIMENOrdering Facility: [facility] Address: [address] [place] [address] Performed By: #### 2 4321-2, , 2776-05 ####LAPINE LABORATORYCLIA [id number] [place] [id number] [place] Urea nitrogen [Mass/Vol] 9 mg/dL Normal 9-24 [facility] Comment on above: Order Comment: Speci men Type: BLOOD SPECIMENOrdering Facility: [facility] Address: [address] [place] [address] Performed By: #### 2 4321-2, , 2776-05 ####LAPINE LABORATORYCLIA [id number] [place] [id number] [place] CASE MGT INIT ASSESon 2022 CASE MGT INIT ASSES Normal [facility] CBC panel Auto (Bld)on 04-29 Erythrocyte distribution width (RBC) [Ratio] 14.6 % Normal 11.5-15.0 [facility] Comment on above: Order Comment: Speci men Type: BLOOD SPECIMENOrdering Facility: [facility] Address: [address] [place] [address] Performed By: #### 5 8410-2 ####LAPINE LABORATORYCLIA [id number] [place] [id number] [place] Hematocrit (Bld) [Volume fraction] 34.9 % Low 39.0-51.0 [facility] Comment on above: Order Comment: Speci men Type: BLOOD SPECIMENOrdering Facility: [facility] Address: [address] [place] [address] Performed By: #### 5 8410-2 ####LAPINE LABORATORYCLIA [id number] [address] STATES OF [facility] Hemoglobin (Bld) [Mass/Vol] 11.3 g/dL Low 13.0-17.0 [facility] Comment on above: Order Comment: Speci men Type: BLOOD SPECIMENOrdering Facility: [facility] Address: [address] [place] [address] Performed By: #### 5 8410-2 ####[facility] LABORATORYCLIA [id number] [address] STATES [facility] MCH (RBC) [Entitic mass] 29.7 pg Normal 26.0-34.0 [facility] Comment on above: Order Comment: Speci men Type: BLOOD SPECIMENOrdering Facility: [facility] Address: [address] [place] [address] Performed By: #### 5 8410-2 ####[facility] LABORATORYCLIA [id number] [address] MCHC (RBC) [Mass/Vol] 32.4 g/dL Normal 30.5-36.0 [facility] Comment on above: Order Comment: Speci men Type: BLOOD SPECIMENOrdering Facility: [facility] Address: [address] [place] [address] Performed By: #### 5 8410-2 ####[facility] LABORATORYCLIA [id number] [address] MCV (RBC) [Entitic vol] 91.8 fL Normal 80.0-100.0 [facility] Comment on above: Order Comment: Speci men Type: BLOOD SPECIMENOrdering Facility: [facility] Address: [address] [place] [address] Performed By: #### 5 8410-2 ####LAPINE LABORATORYCLIA [id number] [address] Nucleated RBC (Bld) [#/Vol] 10*3/uL Normal <0.01 [facility] Comment on above: Order Comment: Speci men Type: BLOOD SPECIMENOrdering Facility: [facility] Address: [address] [place] [address] Performed By: #### 5 8410-2 ####LAPINE LABORATORYCLIA [id number] [place] [id number] [place] Platelet mean volume (Bld) [Entitic vol] 9.4 fL Normal 9.0-12.7 [facility] Comment on above: Order Comment: Speci men Type: BLOOD SPECIMENOrdering Facility: [facility] Address: [address] [place] [address] Performed By: #### 5 8410-2 ####LAPINE LABORATORYCLIA [id number] [place] [id number] [place] Platelets (Bld) [#/Vol] 252 10*3/uL Normal 150-400 [facility] Comment on above: Order Comment: Speci men Type: BLOOD SPECIMENOrdering Facility: [facility] Address: [address] [place] [address] Performed By: #### 5 8410-2 ####LAPINE LABORATORYCLIA [id number] [place] [id number] [place] RBC (Bld) [#/Vol] 3.80 10*6/uL Low 4.20-6.00 [facility] Comment on above: Order Comment: Speci men Type: BLOOD SPECIMENOrdering Facility: [facility] Address: [address] [place] [address] Performed By: #### 5 8410-2 ####LAPINE LABORATORYCLIA [id number] [place] [id number] [place] WBC (Bld) [#/Vol] 12.19 10*3/uL High 3.70-11.00 [facility] Comment on above: Order Comment: Speci men Type: BLOOD SPECIMENOrdering Facility: [facility] Address: [address] [place] [address] Performed By: #### 5 8410-2 ####LAPINE LABORATORYCLIA [id number] [place] [id number] [place] Erythrocyte distribution width (RBC) [Ratio] 14.6 % Normal 11.5-15.0 [facility] Comment on above: Order Comment: Speci men Type: BLOOD SPECIMENOrdering Facility: [facility] Address: [address] [place] [address] Performed By: #### 5 8410-2 ####JAKE LABORATORYCLIA [id number] [address] Hematocrit (Bld) [Volume fraction] 36.1 % Low 39.0-51.0 [facility] Comment on above: Order Comment: Speci men Type: BLOOD SPECIMENOrdering Facility: [facility] Address: [address] [place] [address] Performed By: #### 5 8410-2 ####[facility] LABORATORYCLIA [id number] [address] Hemoglobin (Bld) [Mass/Vol] 11.7 g/dL Low 13.0-17.0 [facility] Comment on above: Order Comment: Speci men Type: BLOOD SPECIMENOrdering Facility: [facility] Address: [address] [place] [address] Performed By: #### 5 8410-2 ####JAKE LABORATORYCLIA [id number] [address] STATES [facility] MCH (RBC) [Entitic mass] 29.8 pg Normal 26.0-34.0 [facility] Comment on above: Order Comment: Speci men Type: BLOOD SPECIMENOrdering Facility: [facility] Address: [address] [place] [address] Performed By: #### 5 8410-2 ####JAKE LABORATORYCLIA [id number] [address] STATES [facility] MCHC (RBC) [Mass/Vol] 32.4 g/dL Normal 30.5-36.0 [facility] Comment on above: Order Comment: Speci men Type: BLOOD SPECIMENOrdering Facility: [facility] Address: [address] [place] [address] Performed By: #### 5 8410-2 ####[facility] LABORATORYCLIA [id number] [address] [place] MCV (RBC) [Entitic vol] 91.9 fL Normal 80.0-100.0 [facility] Comment on above: Order Comment: Speci men Type: BLOOD SPECIMENOrdering Facility: [facility] Address: [address] [place] [address] Performed By: #### 5 8410-2 ####[facility] LABORATORYCLIA [id number] [place] [id number] [place] Nucleated RBC (Bld) [#/Vol] 10*3/uL Normal <0.01 [facility] Comment on above: Order Comment: Speci men Type: BLOOD SPECIMENOrdering Facility: [facility] Address: [address] [place] [address] Performed By: #### 5 8410-2 ####[facility] LABORATORYCLIA [id number] [place] [address] [place] Platelet mean volume (Bld) [Entitic vol] 9.4 fL Normal 9.0-12.7 [facility] Comment on above: Order Comment: Speci men Type: BLOOD SPECIMENOrdering Facility: [facility] Address: [address] [place] [address] Performed By: #### 5 8410-2 ####LAPINE LABORATORYCLIA [id number] [place] [address] [place] Platelets (Bld) [#/Vol] 276 10*3/uL Normal 150-400 [facility] Comment on above: Order Comment: Speci men Type: BLOOD SPECIMENOrdering Facility: [facility] Address: [address] [place] [address] Performed By: #### 5 8410-2 ####LAPINE LABORATORYCLIA [id number] [place] [address] [place] RBC (Bld) [#/Vol] 3.93 10*6/uL Low 4.20-6.00 [facility] Comment on above: Order Comment: Speci men Type: BLOOD SPECIMENOrdering Facility: [facility] Address: [address] [place] [address] Performed By: #### 5 8410-2 ####[facility] LABORATORYCLIA [id number] [place] [address] [place] WBC (Bld) [#/Vol] 9.92 10*3/uL Normal 3.70-11.00 [facility] Comment on above: Order Comment: Speci men Type: BLOOD SPECIMENOrdering Facility: [facility] Address: [address] [place] [address] Performed By: #### 5 8410-2 ####[facility] LABORATORYCLIA [id number] [place] [address] [place] Erythrocyte distribution width (RBC) [Ratio] 14.6 % Normal 11.5-15.0 [facility] Comment on above: Order Comment: Speci men Type: BLOOD SPECIMENOrdering Facility: [facility] Address: [address] [place] [address] Performed By: #### 5 8410-2 ####[facility] LABORATORYCLIA [id number] [address] [place] Hematocrit (Bld) [Volume fraction] 35.4 % Low 39.0-51.0 [facility] Comment on above: Order Comment: Speci men Type: BLOOD SPECIMENOrdering Facility: [facility] Address: [address] [place] [address] Performed By: #### 5 8410-2 ####[facility] LABORATORYCLIA [id number] [place] [address] [place] Hemoglobin (Bld) [Mass/Vol] 11.3 g/dL Low 13.0-17.0 [facility] Comment on above: Order Comment: Speci men Type: BLOOD SPECIMENOrdering Facility: [facility] Address: [address] [place] [address] Performed By: #### 5 8410-2 ####[facility] LABORATORYCLIA [id number] [address] [place] MCH (RBC) [Entitic mass] 29.3 pg Normal 26.0-34.0 [facility] Comment on above: Order Comment: Speci men Type: BLOOD SPECIMENOrdering Facility: [facility] Address: [address] [place] [address] Performed By: #### 5 8410-2 ####[facility] LABORATORYCLIA [id number] [place] [id number] [place] MCHC (RBC) [Mass/Vol] 31.9 g/dL Normal 30.5-36.0 [facility] Comment on above: Order Comment: Speci men Type: BLOOD SPECIMENOrdering Facility: [facility] Address: [address] [place] [address] Performed By: #### 5 8410-2 ####[facility] LABORATORYCLIA [id number] [place] [id number] [place] MCV (RBC) [Entitic vol] 91.7 fL Normal 80.0-100.0 [facility] Comment on above: Order Comment: Speci men Type: BLOOD SPECIMENOrdering Facility: [facility] Address: [address] [place] [address] Performed By: #### 5 8410-2 ####[facility] LABORATORYCLIA [id number] [place] [address] [place] Nucleated RBC (Bld) [#/Vol] 10*3/uL Normal <0.01 [facility] Comment on above: Order Comment: Speci men Type: BLOOD SPECIMENOrdering Facility: [facility] Address: [address] [place] [address] Performed By: #### 5 8410-2 ####[facility] LABORATORYCLIA [id number] [place] [address] [place] Platelet mean volume (Bld) [Entitic vol] 9.2 fL Normal 9.0-12.7 [facility] Comment on above: Order Comment: Speci men Type: BLOOD SPECIMENOrdering Facility: [facility] Address: [address] [place] [address] Performed By: #### 5 8410-2 ####LAPINE LABORATORYCLIA [id number] [place] [address] [place] Platelets (Bld) [#/Vol] 270 10*3/uL Normal 150-400 [facility] Comment on above: Order Comment: Speci men Type: BLOOD SPECIMENOrdering Facility: [facility] Address: [address] [place] [address] Performed By: #### 5 8410-2 ####LAPINE LABORATORYCLIA [id number] [place] [id number] [place] RBC (Bld) [#/Vol] 3.86 10*6/uL Low 4.20-6.00 [facility] Comment on above: Order Comment: Speci men Type: BLOOD SPECIMENOrdering Facility: [facility] Address: [address] [place] [address] Performed By: #### 5 8410-2 ####LAPINE LABORATORYCLIA [id number] [place] [address] [place] WBC (Bld) [#/Vol] 10.68 10*3/uL Normal 3.70-11.00 [facility] Comment on above: Order Comment: Speci men Type: BLOOD SPECIMENOrdering Facility: [facility] Address: [address] [place] [address] Performed By: #### 5 8410-2 ####LAPINE LABORATORYCLIA [id number] [address] [place] Erythrocyte distribution width (RBC) [Ratio] 14.7 % Normal 11.5-15.0 [facility] Comment on above: Order Comment: Speci men Type: BLOOD SPECIMENOrdering Facility: [facility] Address: [address] [place] [address] Performed By: #### 5 8410-2 ####LAPINE LABORATORYCLIA [id number] [address] Hematocrit (Bld) [Volume fraction] 37.5 % Low 39.0-51.0 [facility] Comment on above: Order Comment: Speci men Type: BLOOD SPECIMENOrdering Facility: [facility] Address: [address] [place] [address] Performed By: #### 5 8410-2 ####LAPINE LABORATORYCLIA [id number] [place] [address] [place] Hemoglobin (Bld) [Mass/Vol] 12.1 g/dL Low 13.0-17.0 [facility] Comment on above: Order Comment: Speci men Type: BLOOD SPECIMENOrdering Facility: [facility] Address: [address] [place] [address] Performed By: #### 5 8410-2 ####[facility] LABORATORYCLIA [id number] [address] MCH (RBC) [Entitic mass] 29.6 pg Normal 26.0-34.0 [facility] Comment on above: Order Comment: Speci men Type: BLOOD SPECIMENOrdering Facility: [facility] Address: [address] [place] [address] Performed By: #### 5 8410-2 ####[facility] LABORATORYCLIA [id number] [address] MCHC (RBC) [Mass/Vol] 32.3 g/dL Normal 30.5-36.0 [facility] Comment on above: Order Comment: Speci men Type: BLOOD SPECIMENOrdering Facility: [facility] Address: [address] [place] [address] Performed By: #### 5 8410-2 ####LAPINE LABORATORYCLIA [id number] [address] [place] MCV (RBC) [Entitic vol] 91.7 fL Normal 80.0-100.0 [facility] Comment on above: Order Comment: Speci men Type: BLOOD SPECIMENOrdering Facility: [facility] Address: [address] [place] [address] Performed By: #### 5 8410-2 ####[facility] LABORATORYCLIA [id number] [address] Nucleated RBC (Bld) [#/Vol] 10*3/uL Normal <0.01 [facility] Comment on above: Order Comment: Speci men Type: BLOOD SPECIMENOrdering Facility: [facility] Address: [address] [place] [address] Performed By: #### 5 8410-2 ####[facility] LABORATORYCLIA [id number] [place] [address] [place] Platelet mean volume (Bld) [Entitic vol] 9.4 fL Normal 9.0-12.7 [facility] Comment on above: Order Comment: Speci men Type: BLOOD SPECIMENOrdering Facility: [facility] Address: [place] [address] Performed By: #### 5 8410-2 ####LAPINE LABORATORYCLIA [id number] [place] [id number] [place] Platelets (Bld) [#/Vol] 284 10*3/uL Normal 150-400 [facility] Comment on above: Order Comment: Speci men Type: BLOOD SPECIMENOrdering Facility: [facility] Address: [address] [place] [address] Performed By: #### 5 8410-2 ####LAPINE LABORATORYCLIA [id number] [place] [address] [place] RBC (Bld) [#/Vol] 4.09 10*6/uL Low 4.20-6.00 [facility] Comment on above: Order Comment: Speci men Type: BLOOD SPECIMENOrdering Facility: [facility] Address: [address] [place] [address] Performed By: #### 5 8410-2 ####LAPINE LABORATORYCLIA [id number] [place] [id number] [place] WBC (Bld) [#/Vol] 12.16 10*3/uL High 3.70-11.00 [facility] Comment on above: Order Comment: Speci men Type: BLOOD SPECIMENOrdering Facility: [facility] Address: [address] [place] [address] Performed By: #### 5 8410-2 ####LAPINE LABORATORYCLIA [id number] [place] [id number] [place] Fibrinogen PPP-mCncon 2022 Fibrinogen Coag (PPP) [Mass/Vol] 265 mg/dL Normal 200-400 [facility] Comment on above: Order Comment: Speci men Type: BLOOD SPECIMENOrdering Facility: [facility] Address: [address] [place] [address] Performed By: #### 3 255-7, 30669-2, 48882-2 ####LAPINE LABORATORYCLIA [id number] [place] [id number] [place] [facility] Fibrinogen Coag (PPP) [Mass/Vol] 248 mg/dL Normal 200-400 [facility] Comment on above: Order Comment: Speci men Type: BLOOD SPECIMENOrdering Facility: [facility] Address: [address] [place] [address] Performed By: #### 3 255-7, 59778-2 ####LAPINE LABORATORYCLIA [id number] [address] STATES [facility] Fibrinogen Coag (PPP) [Mass/Vol] 257 mg/dL Normal 200-400 [facility] Comment on above: Order Comment: Speci men Type: BLOOD SPECIMENOrdering Facility: [facility] Address: [address] [place] [address] Performed By: #### 3 255-7, 69816-8 ####LAPINE LABORATORYCLIA [id number] [place] [id number] [place] HISTORY PHYSICALon HISTORY PHYSICAL Normal [facility] Magnesium SerPl-mCncon 04-29 Magnesium [Mass/Vol] 2.1 mg/dL Normal 1.7-2.3 [facility] Comment on above: Order Comment: Speci men Type: BLOOD SPECIMENOrdering Facility: [facility] Address: [address] [place] [address] Performed By: #### 2 4321-2, 36601-5, 2777-1 ####LAPINE LABORATORYCLIA [id number] [place] [id number] [facility] [place] OPERATIVE NOon 04-29-2023 OPERATIVE NO Normal [facility] PT panel Coag (PPP)on 2022 INR Coag (PPP) [Relative time] 1.0 {INR} Normal 0.9-1.3 [facility] Comment on above: Order Comment: Speci men Type: BLOOD SPECIMENOrdering Facility: [facility] Address: [address] [place] [address] Result Comment: Isa min K Antagonist (VKA) Therapeutic Range: INR 2 to 3 (Target INR of 2.5)Note: For patients treated with VKA drugs, such as warfarin, the [place] [employer] 2012 Guideline recommends a therapeutic INR range of 2 to 3 (target INR of 2.5). This recommendation includes high-risk patients with antiphospholipid syndrome with previous arterial or venous thromboembolism, current-generation mechanical or bioprosthetic aortic heart valve replacement.Note: Patients with mechanical aortic valve replacement and additional risk factors for thromboembolic events (atrial fibrillation, previous thromboembolism, LV dysfunction, hypercoagulable conditions) or an older generation mechanical AVR (i.e., ball in-Cage) or any mechanical MVR should have a INR therapeutic range of 2.5 to 3.5 (target INR of 3).Saskia GH, et al. Chest 2012, 141:7S-47SNishimanselmo RA, et al. [facility] 2017, 70: 252-289 Performed By: #### 3 4528-0, PTTAC ####LAPINE LABORATORYCLIA [id number] [place] [address] [place] PT Coag (PPP) [Time] 11.4 s Normal 9.7-13.0 [facility] Comment on above: Order Comment: Speci men Type: BLOOD SPECIMENOrdering Facility: [facility] Address: [address] [place] [address] Performed By: #### 3 4528-0, PTTAC ####LAPINE LABORATORYCLIA [id number] [address] STATES OF [facility] INR Coag (PPP) [Relative time] 1.0 {INR} Normal 0.9-1.3 [facility] Comment on above: Order Comment: Speci men Type: BLOOD SPECIMENOrdering Facility: [facility] Address: [address] [place] [address] Result Comment: Isa min K Antagonist (VKA) Therapeutic Range: INR 2 to 3 (Target INR of 2.5)Note: For patients treated with VKA drugs, such as warfarin, the [place] [employer] 2012 Guideline recommends a therapeutic INR range of 2 to 3 (target INR of 2.5). This recommendation includes high-risk patients with antiphospholipid syndrome with previous arterial or venous thromboembolism, current-generation mechanical or bioprosthetic aortic heart valve replacement.Note: Patients with mechanical aortic valve replacement and additional risk factors for thromboembolic events (atrial fibrillation, previous thromboembolism, LV dysfunction, hypercoagulable conditions) or an older generation mechanical AVR (i.e., ball in-Cage) or any mechanical MVR should have a INR therapeutic range of 2.5 to 3.5 (target INR of 3).Saskia GH, et al. Chest 2012, 141:7S-47SAcosta RA, et al. [facility] 2017, 70: 252-289 Performed By: #### 3 255-7, 70565-1, 09793-7 ####LAPINE LABORATORYCLIA [id number] [place] [id number] [place] PT Coag (PPP) [Time] 11.5 s Normal 9.7-13.0 [facility] Comment on above: Order Comment: Specrashida rodriguez Type: BLOOD SPECIMENOrdering Facility: [facility] Address: [address] [place] [address] Performed By: #### 3 255-7, 20343-7, 03059-9 ####LAPINE LABORATORYCLIA [id number] [place] [id number] [place] INR Coag (PPP) [Relative time] 1.1 {INR} Normal 0.9-1.3 [facility] Comment on above: Order Comment: Ariana rodriguez Type: BLOOD SPECIMENOrdering Facility: [facility] Address: [address] [place] [address] Result Comment: Isa min K Antagonist (VKA) Therapeutic Range: INR 2 to 3 (Target INR of 2.5)Note: For patients treated with VKA drugs, such as warfarin, the [place] [employer] 2012 Guideline recommends a therapeutic INR range of 2 to 3 (target INR of 2.5). This recommendation includes high-risk patients with antiphospholipid syndrome with previous arterial or venous thromboembolism, current-generation mechanical or bioprosthetic aortic heart valve replacement.Note: Patients with mechanical aortic valve replacement and additional risk factors for thromboembolic events (atrial fibrillation, previous thromboembolism, LV dysfunction, hypercoagulable conditions) or an older generation mechanical AVR (i.e., ball in-Cage) or any mechanical MVR should have a INR therapeutic range of 2.5 to 3.5 (target INR of 3).Saskia PARKER, et kendrick. Chest 2012, 141:7S-47SAcosta ANGUIANO, et al. [facility] 2017, 70: 252-289 Performed By: #### 3 255-7, 91867-2 ####[facility] LABORATORYCLIA [id number] [address] PT Coag (PPP) [Time] 11.7 s Normal 9.7-13.0 [facility] Comment on above: Order Comment: Speci michael Type: BLOOD SPECIMENOrdering Facility: [facility] Address: [address] [place] [address] Performed By: #### 3 255-7, 69974-5 ####[facility] LABORATORYCLIA [id number] [address] INR Coag (PPP) [Relative time] 1.0 {INR} Normal 0.9-1.3 [facility] Comment on above: Order Comment: Speci men Type: BLOOD SPECIMENOrdering Facility: [facility] Address: [address] [place] [address] Result Comment: Isa min K Antagonist (VKA) Therapeutic Range: INR 2 to 3 (Target INR of 2.5)Note: For patients treated with VKA drugs, such as warfarin, the [place] [employer] 2012 Guideline recommends a therapeutic INR range of 2 to 3 (target INR of 2.5). This recommendation includes high-risk patients with antiphospholipid syndrome with previous arterial or venous thromboembolism, current-generation mechanical or bioprosthetic aortic heart valve replacement.Note: Patients with mechanical aortic valve replacement and additional risk factors for thromboembolic events (atrial fibrillation, previous thromboembolism, LV dysfunction, hypercoagulable conditions) or an older generation mechanical AVR (i.e., ball in-Cage) or any mechanical MVR should have a INR therapeutic range of 2.5 to 3.5 (target INR of 3).reyna Lui. Chest 2012, 141:7S-47SAcosta ANGUIANO, et al. J[facility] 2017, 70: 252-289 Performed By: #### 3 255-7, 24699-0 ####JAKE LABORATORYCLIA [id number] [place] [address] [place] PT Coag (PPP) [Time] 11.6 s Normal 9.7-13.0 [facility] Comment on above: Order Comment: Speci men Type: BLOOD SPECIMENOrdering Facility: [facility] Address: [address] [place] [address] Performed By: #### 3 255-7, 12245-4 ####[facility] LABORATORYCLIA [id number] [place] [address] [place] PTT, ANTICOAGULANT THERAPYon 04-29-2023 aPTT Coag (PPP) [Time] 38.5 s High 23.0-32.4 [facility] Comment on above: Order Comment: Speci men Type: BLOOD SPECIMENOrdering Facility: [facility] Address: [address] [place] [address] Performed By: #### 3 4528-0, PTTAC ####[facility] LABORATORYCLIA [id number] [place] [id number] [place] Phosphate SerPl-mCncon 04-29 Phosphate [Mass/Vol] 4.7 mg/dL Normal 2.7-4.8 [facility] Comment on above: Order Comment: Speci men Type: BLOOD SPECIMENOrdering Facility: [facility] Address: [address] [place] [address] Performed By: #### 2 4321-2, 35141-9, 2777-1 ####[facility] LABORATORYCLIA [id number] [place] [id number] [place] aPTT PPPon 04-29-2023 aPTT Coag (PPP) [Time] 61.3 s High 23.0-32.4 [facility] Comment on above: Order Comment: Speci men Type: BLOOD SPECIMENOrdering Facility: [facility] Address: [address] [place] [address] Performed By: #### 1 4979-9 ####JAKE LABORATORYCLIA [id number] [place] [id number] [place] aPTT Coag (PPP) [Time] 42.7 s High 23.0-32.4 [facility] Comment on above: Order Comment: Speci men Type: BLOOD SPECIMENOrdering Facility: [facility] Address: [address] [place] [address] Performed By: #### 3 255-7, 75444-3, 05031-4 ####[facility] LABORATORYCLIA [id number] [place] [id number] [place] BRIEF OP NOTon 04-28-2023 BRIEF OP NOT Normal [facility] Basic metabolic 2000 panelon 04-28-2023 Anion gap [Moles/Vol] 10 mmol/L Normal 9-18 [facility] Comment on above: Order Comment: Speci men Type: BLOOD SPECIMENOrdering Facility: [facility] Address: [address] [place] [address] Performed By: #### 1 9123-9, 2777-1, 27879-7 ####L[facility]INE LABORATORYCLIA [id number] [place] [id number] [place] Calcium [Mass/Vol] 8.6 mg/dL Normal 8.5-10.2 [facility] Comment on above: Order Comment: Speci men Type: BLOOD SPECIMENOrdering Facility: [facility] Address: [address] [place] [address] Performed By: #### 1 9123-9, 2777-1, 94003-1 ####L[facility]INE LABORATORYCLIA [id number] [place] [id number] [place] Chloride [Moles/Vol] 102 mmol/L Normal 97-105 [facility] Comment on above: Order Comment: Speci men Type: BLOOD SPECIMENOrdering Facility: [facility] Address: [address] [place] [address] Performed By: #### 1 9123-9, 2777-1, 05894-9 ####L[facility] LABORATORYCLIA [id number] [place] [id number] [place] CO2 [Moles/Vol] 23 mmol/L Normal 22-30 [facility] Comment on above: Order Comment: Speci men Type: BLOOD SPECIMENOrdering Facility: [facility] Address: [address] [place] [address] Performed By: #### 1 9123-9, 2777-1, 60708-7 ####L[facility]INE LABORATORYCLIA [id number] [place] [id number] [place] Creatinine [Mass/Vol] 0.84 mg/dL Normal 0.73-1.22 [facility] Comment on above: Order Comment: Speci men Type: BLOOD SPECIMENOrdering Facility: [facility] Address: [address] [place] [address] Performed By: #### 1 9123-9, 2777-1, 54573-0 ####L[facility] LABORATORYCLIA [id number] [place] [id number] [place] Creatinine and Glomerular filtration rate.predicted panel (S/P/Bld) 99 mL/min/1.73m??? Normal >=60 [facility] Comment on above: Order Comment: Ariana men Type: BLOOD SPECIMENOrdering Facility: [facility] Address: [address] [place] [address] Result Comment: Chirag mated Glomerular Filtration Rate (eGFR) is calculated using the 2020 CKD-EPI creatinine equation. This equation utilizes serum creatinine, sex, and age as parameters. The creatinine assay has traceable calibration to isotope dilution-mass spectrometry. Refer to KDIGO guidelines for clinical interpretation. In patients with unstable renal function, e.g. those with acute kidney injury, the eGFR may not accurately reflect actual GFR. Performed By: #### 1 9123-9, 2777-1, 83015-6 ####[facility] LABORATORYCLIA [id number] [place] [id number] [place] Glucose [Mass/Vol] 95 mg/dL Normal 74-99 [facility] Comment on above: Order Comment: Ariana men Type: BLOOD SPECIMENOrdering Facility: [facility] Address: [address] [place] [address] Result Comment: The [place] [employer] (ADA) provides guidance for cutoff values for fasting glucose and random glucose. The ADA defines fasting as no caloric intake for at least 8 hours. Fasting plasma glucose results between 100 to 125 mg/dL indicate increased risk for diabetes (prediabetes).Fasting plasma glucose results greater than or equal to 126 mg/dL meet the criteria for diagnosis of diabetes. In the absence of unequivocal hyperglycemia, results should be confirmed by repeat testing. In a patient with classic symptoms of hyperglycemia or hyperglycemic crisis, random plasma glucose results greater than or equal to 200 mg/dL meet the criteria for diagnosis of diabetes.Reference: Standards of Medical Care in Diabetes 2016, [place] [employer]. Diabetes Care. 2016.39(Suppl 1). Performed By: #### 1 9123-9, 2777-, 72373-9 ####L[facility] LABORATORYCLIA [id number] [place] [id number] [place] Potassium [Moles/Vol] 3.9 mmol/L Normal 3.7-5.1 [facility] Comment on above: Order Comment: Ariana rodriguez Type: BLOOD SPECIMENOrdering Facility: [facility] Address: [address] [place] [address] Performed By: #### 1 9123-9, 2777, 10132-7 ####L[facility] LABORATORYCLIA [id number] [place] [address] [place] Sodium [Moles/Vol] 135 mmol/L Low 136-144 [facility] Comment on above: Order Comment: Ariana rodriguez Type: BLOOD SPECIMENOrdering Facility: [facility] Address: [address] [place] [address] Performed By: #### 1 9123-9, 2777, 64777-6 ####[facility] LABORATORYCLIA [id number] [place] [id number] [place] Urea nitrogen [Mass/Vol] 12 mg/dL Normal 9-24 [facility] Comment on above: Order Comment: Ariana rodriguez Type: BLOOD SPECIMENOrdering Facility: [facility] Address: [address] [place] [address] Performed By: #### 1 9123-9, 2777, 73998-1 ####L[facility] LABORATORYCLIA [id number] [place] [id number] [place] Anion gap [Moles/Vol] 12 mmol/L Normal 9-18 [facility] Comment on above: Order Comment: Speci men Type: BLOOD SPECIMENOrdering Facility: [facility] Address: [address] [place] [address] Performed By: #### 2 4321-2, , 2776-05 ####JAKE LABORATORYCLIA [id number] [place] [address] [place] Calcium [Mass/Vol] 8.8 mg/dL Normal 8.5-10.2 [facility] Comment on above: Order Comment: Speci men Type: BLOOD SPECIMENOrdering Facility: [facility] Address: [address] [place] [id number] Performed By: #### 2 4321-2, , 2776-05 ####JAKE LABORATORYCLIA [id number] [place] [id number] [place] Chloride [Moles/Vol] 101 mmol/L Normal 97-105 [facility] Comment on above: Order Comment: Speci men Type: BLOOD SPECIMENOrdering Facility: [facility] Address: [address] [place] [id number] Performed By: #### 2 4321-2, , 2776-05 ####JAKE LABORATORYCLIA [id number] [place] [id number] [place] CO2 [Moles/Vol] 23 mmol/L Normal 22-30 [facility] Comment on above: Order Comment: Speci men Type: BLOOD SPECIMENOrdering Facility: [facility] Address: [address] [place] [address] Performed By: #### 2 4321-2, , 2776-05 ####[facility] LABORATORYCLIA [id number] [place] [address] [place] Creatinine [Mass/Vol] 0.81 mg/dL Normal 0.73-1.22 [facility] Comment on above: Order Comment: Speci men Type: BLOOD SPECIMENOrdering Facility: [facility] Address: [address] [place] [address] Performed By: #### 2 4321-2, , 2776-05 ####[facility] LABORATORYCLIA [id number] [place] [id number] [place] Creatinine and Glomerular filtration rate.predicted panel (S/P/Bld) 100 mL/min/1.73m??? Normal >=60 [facility] Comment on above: Order Comment: Ariana michael Type: BLOOD SPECIMENOrdering Facility: [facility] Address: [address] [place] [address] Result Comment: Chirag mated Glomerular Filtration Rate (eGFR) is calculated using the 2020 CKD-EPI creatinine equation. This equation utilizes serum creatinine, sex, and age as parameters. The creatinine assay has traceable calibration to isotope dilution-mass spectrometry. Refer to KDIGO guidelines for clinical interpretation. In patients with unstable renal function, e.g. those with acute kidney injury, the eGFR may not accurately reflect actual GFR. Performed By: #### 2 4321-2, , 2776-05 ####L[facility] LABORATORYCLIA [id number] [place] [id number] [place] Glucose [Mass/Vol] 86 mg/dL Normal 74-99 [facility] Comment on above: Order Comment: Ariana rodriguez Type: BLOOD SPECIMENOrdering Facility: [facility] Address: [address] [place] [address] Result Comment: The [place] [employer] (ADA) provides guidance for cutoff values for fasting glucose and random glucose. The ADA defines fasting as no caloric intake for at least 8 hours. Fasting plasma glucose results between 100 to 125 mg/dL indicate increased risk for diabetes (prediabetes).Fasting plasma glucose results greater than or equal to 126 mg/dL meet the criteria for diagnosis of diabetes. In the absence of unequivocal hyperglycemia, results should be confirmed by repeat testing. In a patient with classic symptoms of hyperglycemia or hyperglycemic crisis, random plasma glucose results greater than or equal to 200 mg/dL meet the criteria for diagnosis of diabetes.Reference: Standards of Medical Care in Diabetes 2016, [place] [employer]. Diabetes Care. 2016.39(Suppl 1). Performed By: #### 2 4321-2, 75775-4, 2776-05 ####[facility] LABORATORYCLIA [id number] [place] [id number] [place] Potassium [Moles/Vol] 4.1 mmol/L Normal 3.7-5.1 [facility] Comment on above: Order Comment: Speci men Type: BLOOD SPECIMENOrdering Facility: [facility] Address: [address] [place] [address] Performed By: #### 2 4321-2, , 2776-05 ####[facility] LABORATORYCLIA [id number] [place] [id number] [place] Sodium [Moles/Vol] 136 mmol/L Normal 136-144 [facility] Comment on above: Order Comment: Speci men Type: BLOOD SPECIMENOrdering Facility: [facility] Address: [address] [place] [address] Performed By: #### 2 4321-2, , 2776-05 ####[facility] LABORATORYCLIA [id number] [place] [address] [place] Urea nitrogen [Mass/Vol] 12 mg/dL Normal 9-24 [facility] Comment on above: Order Comment: Speci men Type: BLOOD SPECIMENOrdering Facility: [facility] Address: [address] [place] [address] Performed By: #### 2 4321-2, , 2776-05 ####[facility] LABORATORYCLIA [id number] [place] [id number] [place] CBC panel Auto (Bld)on 04-28 Erythrocyte distribution width (RBC) [Ratio] 14.7 % Normal 11.5-15.0 [facility] Comment on above: Order Comment: Speci men Type: BLOOD SPECIMENOrdering Facility: [facility] Address: [address] [place] [address] Performed By: #### 5 8410-2 ####[facility] LABORATORYCLIA [id number] [place] [id number] [place] Hematocrit (Bld) [Volume fraction] 39.6 % Normal 39.0-51.0 [facility] Comment on above: Order Comment: Speci men Type: BLOOD SPECIMENOrdering Facility: [facility] Address: [address] [place], [place] [address] Performed By: #### 5 8410-2 ####[facility] LABORATORYCLIA [id number] [place] [address] [place] Hemoglobin (Bld) [Mass/Vol] 12.6 g/dL Low 13.0-17.0 [facility] Comment on above: Order Comment: Speci men Type: BLOOD SPECIMENOrdering Facility: [facility] Address: [address] [place] [address] Performed By: #### 5 8410-2 ####[facility] LABORATORYCLIA [id number] [place] [address] [place] MCH (RBC) [Entitic mass] 29.2 pg Normal 26.0-34.0 [facility] Comment on above: Order Comment: Speci men Type: BLOOD SPECIMENOrdering Facility: [facility] Address: [address] [place] [address] Performed By: #### 5 8410-2 ####[facility] LABORATORYCLIA [id number] [place] [address] [place] MCHC (RBC) [Mass/Vol] 31.8 g/dL Normal 30.5-36.0 [facility] Comment on above: Order Comment: Speci men Type: BLOOD SPECIMENOrdering Facility: [facility] Address: [address] [place] [address] Performed By: #### 5 8410-2 ####[facility] LABORATORYCLIA [id number] [address] [place] MCV (RBC) [Entitic vol] 91.9 fL Normal 80.0-100.0 [facility] Comment on above: Order Comment: Speci men Type: BLOOD SPECIMENOrdering Facility: [facility] Address: [address] [place] [address] Performed By: #### 5 8410-2 ####[facility] LABORATORYCLIA [id number] [address] [place] Nucleated RBC (Bld) [#/Vol] 10*3/uL Normal <0.01 [facility] Comment on above: Order Comment: Speci men Type: BLOOD SPECIMENOrdering Facility: [facility] Address: [address] [place] [address] Performed By: #### 5 8410-2 ####[facility] LABORATORYCLIA [id number] [place] [id number] [place] Platelet mean volume (Bld) [Entitic vol] 9.6 fL Normal 9.0-12.7 [facility] Comment on above: Order Comment: Speci men Type: BLOOD SPECIMENOrdering Facility: [facility] Address: [address] [place] [address] Performed By: #### 5 8410-2 ####[facility] LABORATORYCLIA [id number] [place] [id number] [place] Platelets (Bld) [#/Vol] 312 10*3/uL Normal 150-400 [facility] Comment on above: Order Comment: Speci men Type: BLOOD SPECIMENOrdering Facility: [facility] Address: [address] [place] [address] Performed By: #### 5 8410-2 ####[facility] LABORATORYCLIA [id number] [place] [id number] [place] RBC (Bld) [#/Vol] 4.31 10*6/uL Normal 4.20-6.00 [facility] Comment on above: Order Comment: Speci men Type: BLOOD SPECIMENOrdering Facility: [facility] Address: [address] [place] [address] Performed By: #### 5 8410-2 ####[facility] LABORATORYCLIA [id number] [place] [id number] [place] WBC (Bld) [#/Vol] 14.04 10*3/uL High 3.70-11.00 [facility] Comment on above: Order Comment: Speci men Type: BLOOD SPECIMENOrdering Facility: [facility] Address: [address] [place] [address] Performed By: #### 5 8410-2 ####[facility] LABORATORYCLIA [id number] [place] [id number] [place] Erythrocyte distribution width (RBC) [Ratio] 14.9 % Normal 11.5-15.0 [facility] Comment on above: Order Comment: Speci men Type: BLOOD SPECIMENOrdering Facility: [facility] Address: [address] [place] [address] Performed By: #### 5 8410-2 ####JAKE LABORATORYCLIA [id number] [place] [address] [place] Hematocrit (Bld) [Volume fraction] 35.9 % Low 39.0-51.0 [facility] Comment on above: Order Comment: Speci men Type: BLOOD SPECIMENOrdering Facility: [facility] Address: [address] [place] [address] Performed By: #### 5 8410-2 ####JAKE LABORATORYCLIA [id number] [place] [address] [place] Hemoglobin (Bld) [Mass/Vol] 11.6 g/dL Low 13.0-17.0 [facility] Comment on above: Order Comment: Speci men Type: BLOOD SPECIMENOrdering Facility: [facility] Address: [address] [place] [address] Performed By: #### 5 8410-2 ####JAKE LABORATORYCLIA [id number] [place] [address] [place] MCH (RBC) [Entitic mass] 29.7 pg Normal 26.0-34.0 [facility] Comment on above: Order Comment: Speci men Type: BLOOD SPECIMENOrdering Facility: [facility] Address: [address] [place] [address] Performed By: #### 5 8410-2 ####JAKE LABORATORYCLIA [id number] [place] [address] [place] MCHC (RBC) [Mass/Vol] 32.3 g/dL Normal 30.5-36.0 [facility] Comment on above: Order Comment: Speci men Type: BLOOD SPECIMENOrdering Facility: [facility] Address: [address] [place] [address] Performed By: #### 5 8410-2 ####JAKE LABORATORYCLIA [id number] [place] [address] [place] MCV (RBC) [Entitic vol] 92.1 fL Normal 80.0-100.0 [facility] Comment on above: Order Comment: Speci men Type: BLOOD SPECIMENOrdering Facility: [facility] Address: [address] [place] [address] Performed By: #### 5 8410-2 ####L[facility] LABORATORYCLIA [id number] [place] [id number] [place] Nucleated RBC (Bld) [#/Vol] 10*3/uL Normal <0.01 [facility] Comment on above: Order Comment: Speci men Type: BLOOD SPECIMENOrdering Facility: [facility] Address: [address] [place] [address] Performed By: #### 5 8410-2 ####L[facility] LABORATORYCLIA [id number] [place] [address] [place] Platelet mean volume (Bld) [Entitic vol] 9.4 fL Normal 9.0-12.7 [facility] Comment on above: Order Comment: Speci men Type: BLOOD SPECIMENOrdering Facility: [facility] Address: [address] [place] [address] Performed By: #### 5 8410-2 ####L[facility] LABORATORYCLIA [id number] [place] [address] [place] Platelets (Bld) [#/Vol] 332 10*3/uL Normal 150-400 [facility] Comment on above: Order Comment: Speci men Type: BLOOD SPECIMENOrdering Facility: [facility] Address: [address] [place] [address] Performed By: #### 5 8410-2 ####L[facility] LABORATORYCLIA [id number] [place] [id number] [place] RBC (Bld) [#/Vol] 3.90 10*6/uL Low 4.20-6.00 [facility] Comment on above: Order Comment: Speci men Type: BLOOD SPECIMENOrdering Facility: [facility] Address: [address] [place] [address] Performed By: #### 5 8410-2 ####L[facility] LABORATORYCLIA [id number] [place] [id number] [place] WBC (Bld) [#/Vol] 10.42 10*3/uL Normal 3.70-11.00 [facility] Comment on above: Order Comment: Speci men Type: BLOOD SPECIMENOrdering Facility: [facility] Address: [address] [place] [address] Performed By: #### 5 8410-2 ####LAPINE LABORATORYCLIA [id number] [address] [place] Erythrocyte distribution width (RBC) [Ratio] 14.8 % Normal 11.5-15.0 [facility] Comment on above: Order Comment: Speci men Type: BLOOD SPECIMENOrdering Facility: [facility] Address: [address] [place] [address] Performed By: #### 5 8410-2 ####L[facility] LABORATORYCLIA [id number] [address] Hematocrit (Bld) [Volume fraction] 40.5 % Normal 39.0-51.0 [facility] Comment on above: Order Comment: Speci men Type: BLOOD SPECIMENOrdering Facility: [facility] Address: [address] [place] [address] Performed By: #### 5 8410-2 ####L[facility] LABORATORYCLIA [id number] [address] [place] Hemoglobin (Bld) [Mass/Vol] 12.7 g/dL Low 13.0-17.0 [facility] Comment on above: Order Comment: Speci men Type: BLOOD SPECIMENOrdering Facility: [facility] Address: [address] [place] [address] Performed By: #### 5 8410-2 ####L[facility] LABORATORYCLIA [id number] [address] MCH (RBC) [Entitic mass] 29.3 pg Normal 26.0-34.0 [facility] Comment on above: Order Comment: Speci men Type: BLOOD SPECIMENOrdering Facility: [facility] Address: [address] [place] [address] Performed By: #### 5 8410-2 ####[facility] LABORATORYCLIA [id number] [place] [address] [place] [facility] MCHC (RBC) [Mass/Vol] 31.4 g/dL Normal 30.5-36.0 [facility] Comment on above: Order Comment: Speci men Type: BLOOD SPECIMENOrdering Facility: [facility] Address: [address] [place] [address] Performed By: #### 5 8410-2 ####[facility] LABORATORYCLIA [id number] [address] [place] MCV (RBC) [Entitic vol] 93.3 fL Normal 80.0-100.0 [facility] Comment on above: Order Comment: Speci men Type: BLOOD SPECIMENOrdering Facility: [facility] Address: [address] [place] [address] Performed By: #### 5 8410-2 ####[facility] LABORATORYCLIA [id number] [place] [address] [place] Nucleated RBC (Bld) [#/Vol] 10*3/uL Normal <0.01 [facility] Comment on above: Order Comment: Speci men Type: BLOOD SPECIMENOrdering Facility: [facility] Address: [address] [place] [address] Performed By: #### 5 8410-2 ####[facility] LABORATORYCLIA [id number] [place] [address] [place] Platelet mean volume (Bld) [Entitic vol] 9.7 fL Normal 9.0-12.7 [facility] Comment on above: Order Comment: Speci men Type: BLOOD SPECIMENOrdering Facility: [facility] Address: [address] [place] [address] Performed By: #### 5 8410-2 ####[facility] LABORATORYCLIA [id number] [place] [address] [place] Platelets (Bld) [#/Vol] 357 10*3/uL Normal 150-400 [facility] Comment on above: Order Comment: Speci men Type: BLOOD SPECIMENOrdering Facility: [facility] Address: [address] [place] [address] Performed By: #### 5 8410-2 ####L[facility] LABORATORYCLIA [id number] [place] [id number] [place] RBC (Bld) [#/Vol] 4.34 10*6/uL Normal 4.20-6.00 [facility] Comment on above: Order Comment: Speci men Type: BLOOD SPECIMENOrdering Facility: [facility] Address: [address] [place] [address] Performed By: #### 5 8410-2 ####L[facility] LABORATORYCLIA [id number] [address] [place] WBC (Bld) [#/Vol] 11.08 10*3/uL High 3.70-11.00 [facility] Comment on above: Order Comment: Speci men Type: BLOOD SPECIMENOrdering Facility: [facility] Address: [address] [place] [address] Performed By: #### 5 8410-2 ####[facility] LABORATORYCLIA [id number] [address] [place] CNDSon 04-28-2023 CNDS [facility] ECG COMPLETEon 04-28-2023 ECG COMPLETE [facility] ED NOTEon 04-28-2023 ED NOTE HNO ID: [id number] Author: Dez Rizvi RN Service: ? Author Type: Registered Nurse Type: ED Notes Filed: 04/28/2023 12:21 AM Note Text: Report to Son RN at [facility] ED NOTE HNO ID: [id number] Author: Dez Rizvi RN Service: ? Author Type: Registered Nurse Type: ED Notes Filed: 04/28/2023 12:17 AM Note Text: Report to transfer team [facility] Fibrinogen PPP-mCncon 2022 Fibrinogen Coag (PPP) [Mass/Vol] 338 mg/dL Normal 200-400 [facility] Comment on above: Order Comment: Speci men Type: BLOOD SPECIMENOrdering Facility: [facility] Address: [address] [place] [address] Performed By: #### 3 255-7, 90649-7 ####JAKE LABORATORYCLIA [id number] [place] [id number] [place] Fibrinogen Coag (PPP) [Mass/Vol] 321 mg/dL Normal 200-400 [facility] Comment on above: Order Comment: Speci men Type: BLOOD SPECIMENOrdering Facility: [facility] Address: [address] [place] [address] Performed By: #### 3 255-7, 56891-5, 17585-4 ####JAKE LABORATORYCLIA [id number] [place] [id number] [place] HISTORY PHYSICALon HISTORY PHYSICAL Normal [facility] HISTORY PHYSICAL Normal [facility] Magnesium SerPl-mCncon 04-28 Magnesium [Mass/Vol] 2.1 mg/dL Normal 1.7-2.3 [facility] Comment on above: Order Comment: Speci men Type: BLOOD SPECIMENOrdering Facility: [facility] Address: [address] [place] [address] Performed By: #### 1 9123-9, 2777-1, 78994-6 ####JAKE LABORATORYCLIA [id number] [place] [id number] [place] [facility] Magnesium [Mass/Vol] 2.2 mg/dL Normal 1.7-2.3 [facility] Comment on above: Order Comment: Speci men Type: BLOOD SPECIMENOrdering Facility: [facility] Address: [address] [place] [address] Performed By: #### 2 4321-2, 41501-2, 2777-1 ####[facility] LABORATORYCLIA [id number] [place] [id number] [place] N[facility] PROGon 04-28-2023 NURSING PROG Normal [facility] OPERATIVE NOon 04-28-2023 OPERATIVE NO Normal [facility] PT panel Coag (PPP)on 2022 INR Coag (PPP) [Relative time] 1.0 {INR} Normal 0.9-1.3 [facility] Comment on above: Order Comment: Ariana rodriguez Type: BLOOD SPECIMENOrdering Facility: [facility] Address: [address] [place] [address] Result Comment: Isa min K Antagonist (VKA) Therapeutic Range: INR 2 to 3 (Target INR of 2.5)Note: For patients treated with VKA drugs, such as warfarin, the [place] [employer] 2012 Guideline recommends a therapeutic INR range of 2 to 3 (target INR of 2.5). This recommendation includes high-risk patients with antiphospholipid syndrome with previous arterial or venous thromboembolism, current-generation mechanical or bioprosthetic aortic heart valve replacement.Note: Patients with mechanical aortic valve replacement and additional risk factors for thromboembolic events (atrial fibrillation, previous thromboembolism, LV dysfunction, hypercoagulable conditions) or an older generation mechanical AVR (i.e., ball in-Cage) or any mechanical MVR should have a INR therapeutic range of 2.5 to 3.5 (target INR of 3).Saskia GH, et al. Chest 2012, 141:7S-47SNishimura RA, et al. [facility] 2017, 70: 252-289 Performed By: #### 3 255-7, 35576-5 ####[facility] LABORATORYCLIA [id number] [place] [address] [place] PT Coag (PPP) [Time] 11.1 s Normal 9.7-13.0 [facility] Comment on above: Order Comment: Ariana rodriguez Type: BLOOD SPECIMENOrdering Facility: [facility] Address: [address] [place] [address] Performed By: #### 3 255-7, 72372-7 ####[facility] LABORATORYCLIA [id number] [place] [id number] [place] INR Coag (PPP) [Relative time] 1.1 {INR} Normal 0.9-1.3 [facility] Comment on above: Order Comment: Ariana rodriguez Type: BLOOD SPECIMENOrdering Facility: [facility] Address: [address] [place] [address] Result Comment: Isa min K Antagonist (VKA) Therapeutic Range: INR 2 to 3 (Target INR of 2.5)Note: For patients treated with VKA drugs, such as warfarin, the [place] [employer] 2012 Guideline recommends a therapeutic INR range of 2 to 3 (target INR of 2.5). This recommendation includes high-risk patients with antiphospholipid syndrome with previous arterial or venous thromboembolism, current-generation mechanical or bioprosthetic aortic heart valve replacement.Note: Patients with mechanical aortic valve replacement and additional risk factors for thromboembolic events (atrial fibrillation, previous thromboembolism, LV dysfunction, hypercoagulable conditions) or an older generation mechanical AVR (i.e., ball in-Cage) or any mechanical MVR should have a INR therapeutic range of 2.5 to 3.5 (target INR of 3).Saskia GH, et al. Chest 2012, 141:7S-47SNishjania RA, et al. [facility] 2017, 70: 252-289 Performed By: #### 3 255-7, 51609-9, 49773-8 ####[facility] LABORATORYCLIA [id number] [place] [address] [place] PT Coag (PPP) [Time] 11.8 s Normal 9.7-13.0 [facility] Comment on above: Order Comment: Specrashida rodriguez Type: BLOOD SPECIMENOrdering Facility: [facility] Address: [address] [place] [address] Performed By: #### 3 255-7, 66025-8, 91625-7 ####[facility] LABORATORYCLIA [id number] [address] OF [facility] INR Coag (PPP) [Relative time] 1.0 {INR} Normal 0.9-1.3 [facility] Comment on above: Order Comment: Ariana rodriguez Type: BLOOD SPECIMENOrdering Facility: [facility] Address: [address] [place] [address] Result Comment: Isa min K Antagonist (VKA) Therapeutic Range: INR 2 to 3 (Target INR of 2.5)Note: For patients treated with VKA drugs, such as warfarin, the [place] [employer] 2012 Guideline recommends a therapeutic INR range of 2 to 3 (target INR of 2.5). This recommendation includes high-risk patients with antiphospholipid syndrome with previous arterial or venous thromboembolism, current-generation mechanical or bioprosthetic aortic heart valve replacement.Note: Patients with mechanical aortic valve replacement and additional risk factors for thromboembolic events (atrial fibrillation, previous thromboembolism, LV dysfunction, hypercoagulable conditions) or an older generation mechanical AVR (i.e., ball in-Cage) or any mechanical MVR should have a INR therapeutic range of 2.5 to 3.5 (target INR of 3).Saskia GH, et al. Chest 2012, 141:7S-47SNishjania RA, et al. [facility] 2017, 70: 252-289 Performed By: #### 3 4528-0, PTTAC ####[facility] LABORATORYCLIA [id number] [place] [address] [place] PT Coag (PPP) [Time] 11.3 s Normal 9.7-13.0 [facility] Comment on above: Order Comment: Ariana rodriguez Type: BLOOD SPECIMENOrdering Facility: [facility] Address: [address] [place] [address] Performed By: #### 3 4528-0, PTTAC ####[facility] LABORATORYCLIA [id number] [place] [address] [place] PTT, ANTICOAGULANT THERAPYon 04-28-2023 aPTT Coag (PPP) [Time] 127.8 s High 23.0-32.4 [facility] Comment on above: Order Comment: Ariana rodriguez Type: BLOOD SPECIMENOrdering Facility: [facility] Address: [address] [place] [address] Result Comment: Mike le checked for clot. Performed By: #### P TTAC ####[facility] LABORATORYCLIA [id number] [address] [place] aPTT Coag (PPP) [Time] 72.9 s High 23.0-32.4 [facility] Comment on above: Order Comment: Ariana rodriguez Type: BLOOD SPECIMENOrdering Facility: [facility] Address: [address] [place] [address] Performed By: #### 3 4528-0, PTTAC ####[facility] LABORATORYCLIA [id number] [address] Phosphate SerPl-mCncon 04-28 Phosphate [Mass/Vol] 3.8 mg/dL Normal 2.7-4.8 [facility] Comment on above: Order Comment: Speci men Type: BLOOD SPECIMENOrdering Facility: [facility] Address: [address] [place] [address] Performed By: #### 1 9123-9, 2777-1, 00046-1 ####[facility] LABORATORYCLIA [id number] [address] Phosphate [Mass/Vol] 3.7 mg/dL Normal 2.7-4.8 [facility] Comment on above: Order Comment: Speci men Type: BLOOD SPECIMENOrdering Facility: [facility] Address: [address] [place] [address] Performed By: #### 2 4321-2, 85585-5, 2777-1 ####[facility] LABORATORYCLIA [id number] [address] TYPE + SCREENon 04-28-2023 ABO O Normal [facility] Comment on above: Order Comment: Speci men Type: BLOOD SPECIMENOrdering Facility: [facility] Address: [address] [place] [address] Performed By: #### T SCR ####[facility] BLOOD BANKCLIA [id number] [address] OF [place] HISTORICAL AB SCR STATUS Negative Normal [facility] Comment on above: Order Comment: Speci men Type: BLOOD SPECIMENOrdering Facility: [facility] Address: [address] [place] [address] Performed By: #### T SCR ####[facility] BLOOD BANKCLIA [id number] [address] OF [place] Rh Nom (Bld) Positive Normal [facility] Comment on above: Order Comment: Speci men Type: BLOOD SPECIMENOrdering Facility: [facility] Address: [address] [place] [address] Performed By: #### T SCR ####[facility] BLOOD BANKCLIA [id number] [address] TYPE AND SCREEN EXPIRATION 05/01/2023 23:59 Normal [facility] Comment on above: Order Comment: Speci men Type: BLOOD SPECIMENOrdering Facility: [facility] Address: [place] [address] Performed By: #### T SCR ####[facility] BLOOD BANKCLIA [id number] [place] [id number] [facility] aPTT PPPon 04-28-2023 aPTT Coag (PPP) [Time] EXTREMELY ABNORMAL RESULT. No clot detected at 320 seconds. Refer to anticoagulation nomogram for further actions. Critically abnormal (none) [facility] Comment on above: Order Comment: Speci men Type: BLOOD SPECIMENOrdering Facility: [facility] Address: [place] [address] Performed By: #### 3 255-7, 63960-0, 72721-9 ####[facility] LABORATORYCLIA [id number] [address] ALLIED HEALTHon 04-27-2023 ALLIED HEALTH HNO ID: [id number] Author: Dayo Lowe, CT Service: Radiology Author Type: Technologist Type: Allied Health Filed: 04/27/2023 6:33 PM Note Text: Radiology Service Progress Note DATE OF SERVICE: April 27, 2023 TIME: 6:32 PM PATIENT IDENTITY VERIFICATION COMPLETED USING TWO (2) STANDARD IDENTIFIERS: Name and Date of confirmed by patient verbally and Name and Date of confirmed by identification band. FALL SCREENING: Has the patient had 2 falls in the last year or 1 fall with injury or currently using an Ambulatory Assistive Device (Walker, Cane, Wheelchair, Crutches, etc.)? Emergency Room Patient: Screened in ED PATIENT GENDER DATA: Male PATIENT RELEVANT IMPLANT DATA REVIEWED: Not Applicable ALLERGIES: Reviewed and unchanged CONTRAST ALLERGY: NO. EXAM: CT -CONTRAST INDUCED NEPHROPATHY RISK FACTORS: Patient age > 60 years CREATININE: Creatinine Date Value Ref Range Status 04/27/2023 0.86 0.73 - 1.22 mg/dL Final 02/25/2023 0.89 0.73 - 1.22 mg/dL Final 11/05/2022 0.91 0.73 - 1.22 mg/dL Final Estimated Glomerular Filtration Rate Date Value Ref Range Status 04/27/2023 99 >=60 mL/min/1.73m? Final Comment: Estimated Glomerular Filtration Rate (eGFR) is calculated using the 2020 CKD-EPI creatinine equation. This equation utilizes serum creatinine, sex, and age as parameters. The creatinine assay has traceable calibration to isotope dilution-mass spectrometry. Refer to KDIGO guidelines for clinical interpretation. In patients with unstable renal function, e.g. those with acute kidney injury, the eGFR may not accurately reflect actual GFR. eGFR- Date Value Ref Range Status 03/21/2021 >60 Final Comment: Note: On 06/28/2021, the eGFR calculation will be updated to the NKF-ASN Task Force recommended 2020 CKD-EPI creatinine equation which does not include a race variable. For more information or to access a 2020 CKD-EPI calculator, visit the National Kid[employer] website at kidney.org/professionals/kd oqi/gfr_calculator. P.O.C.T. RESULTS: POC done: Yes, See Lab Tab April 27, 2023 TREATMENT: N/A PERIPHERAL IV DATA: Inpatient - refer to LDA documentation RADIOLOGY DEPARTMENT: CT; Exam(s) Completed: CTA Aorta/leg runoff SIGNATURE: CATERINA Menendez PATIENT NAME: Choco Maldonado DATE: April 27, 2023 TIME: 6:32 PM Normal [facility] CBC W Auto Differential pane l (Bld)on 04-27-2023 Basophils (Bld) [#/Vol] 0.10 10*3/uL Normal <0.11 [facility] Comment on above: Order Comment: Speci men Type: BLOOD SPECIMEN [facility] Address: [address] [place] [address] Performed By: #### 5 7021-8 #### [facility] CLIA [id number] [address] [place] [address] [place] Basophils/100 WBC (Bld) 1.0 % Normal [facility] Comment on above: Order Comment: Speci men Type: BLOOD SPECIMEN [facility] Address: [address] [place] [address] Performed By: #### 5 7021-8 #### [place] [facility] CLIA [id number] [address] OF [place] Differential cell count method Nom (Bld) Auto Normal [facility] Comment on above: Order Comment: Speci men Type: BLOOD SPECIMEN [facility] Address: [address] [place] [address] Performed By: #### 5 7021-8 #### [facility] CLIA [id number] [address] [place] [address] [place] Eosinophils (Bld) [#/Vol] 0.28 10*3/uL Normal <0.46 [facility] Comment on above: Order Comment: Speci men Type: BLOOD SPECIMEN [facility] Address: [address] [place] [address] Performed By: #### 5 7021-8 #### [facility] [facility] CLIA [id number] [address] [place] Eosinophils/100 WBC (Bld) 2.7 % Normal [facility] Comment on above: Order Comment: Speci men Type: BLOOD SPECIMEN [facility] Address: [address] [place] [address] Performed By: #### 5 7021-8 #### [place] [facility] CLIA [id number] [address] STATES [place] Erythrocyte distribution width (RBC) [Ratio] 14.7 % Normal 11.5-15.0 [facility] Comment on above: Order Comment: Speci men Type: BLOOD SPECIMEN [facility] Address: [address] [place] [address] Performed By: #### 5 7021-8 #### [facility] [facility] CLIA [id number] [address] OF [place] Hematocrit (Bld) [Volume fraction] 39.4 % Normal 39.0-51.0 [facility] Comment on above: Order Comment: Speci men Type: BLOOD SPECIMEN [facility] Address: [address] [place] [address] Performed By: #### 5 7021-8 #### [facility] [facility] CLIA [id number] [address] Immature granulocytes (Bld) [#/Vol] 0.05 10*3/uL Normal <0.10 [facility] Comment on above: Order Comment: Speci men Type: BLOOD SPECIMEN [facility] Address: [address] [place] [address] Performed By: #### 5 7021-8 #### [facility] [facility] CLIA [id number] [address] Immature granulocytes/100 WBC (Bld) 0.5 % Normal [facility] Comment on above: Order Comment: Speci men Type: BLOOD SPECIMEN [facility] Address: [address] [place] [address] Performed By: #### 5 7021-8 #### [facility] [facility] CLIA [id number] [address] Lymphocytes (Bld) [#/Vol] 2.93 10*3/uL Normal 1.00-4.00 [facility] Comment on above: Order Comment: Speci men Type: BLOOD SPECIMEN [facility] Address: [address] [place] [address] Performed By: #### 5 7021-8 #### [facility] [facility] CLIA [id number] [address] Lymphocytes/100 WBC (Bld) 28.5 % Normal [facility] Comment on above: Order Comment: Speci men Type: BLOOD SPECIMEN [facility] Address: [address] [place] [address] Performed By: #### 5 7021-8 #### [facility] [facility] CLIA [id number] [address] MCH (RBC) [Entitic mass] 30.1 pg Normal 26.0-34.0 [facility] Comment on above: Order Comment: Speci men Type: BLOOD SPECIMEN [facility] Address: [address] [place] [address] Performed By: #### 5 7021-8 #### [facility] [facility] CLIA [id number] [address] [place] [address] [place] MCHC (RBC) [Mass/Vol] 33.0 g/dL Normal 30.5-36.0 [facility] Comment on above: Order Comment: Speci men Type: BLOOD SPECIMEN [facility] Address: [address] [place] [address] Performed By: #### 5 7021-8 #### [facility] CLIA [id number] [address] [place] MCV (RBC) [Entitic vol] 91.2 fL Normal 80.0-100.0 [facility] Comment on above: Order Comment: Speci men Type: BLOOD SPECIMEN [facility] Address: [address] [place] [address] Performed By: #### 5 7021-8 #### [facility] CLIA [id number] [address] [place] Monocytes (Bld) [#/Vol] 0.57 10*3/uL Normal <0.87 [facility] Comment on above: Order Comment: Speci men Type: BLOOD SPECIMEN [facility] Address: [address] [place] [address] Performed By: #### 5 7021-8 #### [facility] CLIA [id number] [address] Monocytes/100 WBC (Bld) 5.5 % Normal [facility] Comment on above: Order Comment: Speci men Type: BLOOD SPECIMEN [facility] Address: [address] [place] [address] Performed By: #### 5 7021-8 #### [facility] [facility] CLIA [id number] [address] [place] [address] [place] Neutrophils (Bld) [#/Vol] 6.35 10*3/uL Normal 1.45-7.50 [facility] Comment on above: Order Comment: Speci men Type: BLOOD SPECIMEN [facility] Address: [address] [place] [address] Performed By: #### 5 7021-8 #### [facility] [facility] CLIA [id number] [address] [place] [address] [facility] [place] Neutrophils/100 WBC (Bld) 61.8 % Normal [facility] Comment on above: Order Comment: Speci men Type: BLOOD SPECIMEN [facility] Address: [address] [place] [address] Performed By: #### 5 7021-8 #### [facility] [facility] CLIA [id number] [address] OF [place] Nucleated RBC (Bld) [#/Vol] 10*3/uL Normal <0.01 [facility] Comment on above: Order Comment: Speci men Type: BLOOD SPECIMEN [facility] Address: [address] [place] [address] Performed By: #### 5 7021-8 #### [facility] CLIA [id number] [address] Nucleated RBC/100 WBC (Bld) [Ratio] 0.0 /100 WBC Normal [facility] Comment on above: Order Comment: Speci men Type: BLOOD SPECIMEN [facility] Address: [address] [place] [address] Performed By: #### 5 7021-8 #### [facility] CLIA [id number] [address] OF [place] Platelet mean volume (Bld) [Entitic vol] 9.3 fL Normal 9.0-12.7 [facility] Comment on above: Order Comment: Speci men Type: BLOOD SPECIMEN [facility] Address: [address] [place] [address] Performed By: #### 5 7021-8 #### [facility] CLIA [id number] [address] [place] [address] [place] Platelets (Bld) [#/Vol] 391 10*3/uL Normal 150-400 [facility] Comment on above: Order Comment: Speci men Type: BLOOD SPECIMEN [facility] Address: [address] [place] [address] Performed By: #### 5 7021-8 #### [facility] CLIA [id number] [address] [place] [address] [place] RBC (Bld) [#/Vol] 4.32 10*6/uL Normal 4.20-6.00 [facility] Comment on above: Order Comment: Speci men Type: BLOOD SPECIMEN [facility] Address: [address] [place] [address] Performed By: #### 5 7021-8 #### [facility] CLIA [id number] [address] STATES OF [facility] WBC (Bld) [#/Vol] 10.28 10*3/uL Normal 3.70-11.00 [facility] Comment on above: Order Comment: Speci men Type: BLOOD SPECIMEN [facility] Address: [address] [place] [address] Performed By: #### 5 7021-8 #### [facility] CLIA [id number] [address] [place] CK SerPl-cCncon 04-27-2023 CK [Catalytic activity/Vol] 49 U/L Low 51-298 [facility] Comment on above: Order Comment: Speci men Type: BLOOD SPECIMEN [facility] Address: [address] [place] [address] Performed By: #### 2 157-6, 79888-0 #### [facility] CLIA [id number] [address] CTA ABD/PEL/LOWER EXT W IVCO Non 04-27-2023 CTA ABD/PEL/LOWER EXT W IVCON * * *Final Report* * * DATE OF EXAM: Apr 27 2023 6:45PM [facility] [place] ABD/PEL/LOWER EXT W IVCON / PROCEDURE REASON: Arterial embolism, lower extremity * * * * Physician Interpretation * * * * CT ANGIOGRAM OF THE ABDOMEN, PELVIS, AND BILATERAL LOWER EXTREMITIES HISTORY: 62 year old?male?h/o right femoral popliteal bypass in [place] for acute limb ischemia, in ED with Right lower leg and foot purple color and cooler than left concerning for arterial ischemia. ? TECHNIQUE: High-resolution contrast-enhanced helical CT of the abdomen, pelvis and both lower extremities was performed, timed to the arterial phase. 3-D processing was performed by the physician on an independent work station, with MIP and volume-rendering techniques. Total of 100 ml of Omnipaque 350 was injected IV during the examination. The study was performed without oral contrast. The patient tolerated the injection without complications. Dose-Length Product (DLP): 677 mGy*cm. CT Dose Reduction Employed: Automated exposure control(AEC) and iterative recon RESULT: COMPARISON: CT abdomen and pelvis with contrast 11/06/2022; CT lung cancer screening 03/09/2023. LIMITATIONS: None ABDOMEN: Firefighter (topogram) images: No additional findings. Images of the aorta demonstrate atherosclerotic change without significant focal stenosis or aneurysm. Celiac artery demonstrates no significant focal stenosis. Superior mesenteric artery demonstrates no significant focal stenosis. Inferior mesenteric artery, suspect ostial stenosis but then widely patent with no significant focal stenosis. There is a single right renal artery. Right renal artery demonstrates no significant focal stenosis. There is a single renal vein which is patent. There is a single left renal artery. Left renal artery demonstrates no significant focal stenosis. There is a single renal vein which is patent. RIGHT LEG: Right common iliac artery demonstrates mild atherosclerotic change without significant focal stenosis. Right external iliac artery is patent with no significant stenosis. Right internal iliac artery demonstrates atherosclerotic change and patent. Right common femoral artery is patent with no significant stenosis. Right profunda femoris artery is patent with no significant stenosis. Right superficial femoral artery is patent with no significant stenosis to the level of adductor canal. Right popliteal artery and the distal SFA to popliteal bypass graft both are occluded. Right anterior tibial artery is questionably is reconstituted in the proximal calf. Right tibioperoneal trunk is reconstituted with faint opacification. Right posterior tibial artery is patent with no significant stenosis. Posterior tibial artery is opacified and seen to the foot. Right peroneal artery is patent into distal calf. LEFT LEG: Left common iliac artery demonstrates mild atherosclerotic change without significant focal stenosis. Left external iliac artery is patent with no significant stenosis. Left internal iliac artery demonstrates atherosclerotic change and patent. Left common femoral artery is patent with no significant stenosis. Left profunda femoris artery is patent with no significant stenosis. Left superficial femoral artery is patent with no significant stenosis. Left popliteal artery is patent with no significant stenosis. Left anterior tibial artery is patent with no significant stenosis. Dorsalis pedis is patent. Left tibioperoneal trunk is patent with no significant stenosis. Left posterior tibial artery is patent with no significant stenosis. Posterior tibial artery is patent into foot. Left peroneal artery is patent with no significant stenosis. NONVASCULAR FINDINGS: Lower thorax: A nodular opacity in the lingula is unchanged and is likely related to atelectasis/scarring. Liver: No mass. Biliary: No bile duct dilation. Gallbladder is partially contracted. Spleen: - No splenomegaly. Pancreas: No mass or duct dilation. Adrenals: No mass. Kidneys: Symmetric enhancement without hydronephrosis and no enhancing mass within the limitations of cortical medullary phase. Retroperitoneum: Unremarkable GI tract: Surgical changes of partial left colon resection with Indu pouch formation and left lower quadrant end colostomy. The unopacified bowel loops demonstrate unremarkable appearance. Lymph nodes: No abdominal or pelvic lymphadenopathy per CT criteria. Mesentery/Peritoneum: No ascites or mass. Pelvis: No mass, ascites or fluid collection. Bones/Soft Tissues: Degenerative changes in both hip joints in the lower lumbar spine. IMPRESSION: RIGHT LOWER EXTREMITY: No significant inflow lesion. Occluded popliteal artery and distal SFA popliteal artery bypass graft. 2 vessels leg runoff via reconstituted peroneal tibial trunk. Anterior tibial artery probably reconstituted/patent in the proximal calf. (more content not included)... Invalid Interpretation Code [facility] Comprehensive metabolic 2000 panelon 04-27-2023 Albumin [Mass/Vol] 4.3 g/dL Normal 3.9-4.9 [facility] Comment on above: Order Comment: Specrashida men Type: BLOOD SPECIMEN [facility] [facility] Address: [address] [place] [address] Performed By: #### 2 157-6, 94366-8 #### [facility] CLIA [id number] [address] STATES OF [facility] ALP [Catalytic activity/Vol] 120 U/L High 38-113 [facility] Comment on above: Order Comment: Speci [facility] Type: BLOOD SPECIMEN Ordering Facility: [facility] Address: [address] [place] [address] Performed By: #### 2 157-6, 08285-2 #### [facility] CLIA [id number] [address] [place] ALT [Catalytic activity/Vol] 17 U/L Normal 10-54 [facility] Comment on above: Order Comment: Speci men Type: BLOOD SPECIMEN Ordering Facility: [facility] Address: [place] [address] Performed By: #### 2 157-6, 35303-6 #### [facility] CLIA [id number] [address] [place] Anion gap [Moles/Vol] 8 mmol/L Low 9-18 [facility] Comment on above: Order Comment: Speci men Type: BLOOD SPECIMEN Ordering Facility: [facility] Address: [address] [place] [address] Performed By: #### 2 157-6, 40257-5 #### [facility] CLIA [id number] [address] [place] AST [Catalytic activity/Vol] 18 U/L Normal 14-40 [facility] Comment on above: Order Comment: Speci men Type: BLOOD SPECIMEN Ordering Facility: [facility] Address: [address] [place] [address] Performed By: #### 2 157-6, 13106-8 #### [facility] CLIA [id number] [address] [place] [address] [place] Bilirubin [Mass/Vol] 0.2 mg/dL Normal 0.2-1.3 [facility] Comment on above: Order Comment: Speci men Type: BLOOD SPECIMEN Ordering Facility: [facility] Address: [address] [place] [address] Performed By: #### 2 157-6, 75053-3 #### [facility] CLIA [id number] [address] STATES OF [facility] Calcium [Mass/Vol] 9.4 mg/dL Normal 8.5-10.2 [facility] Comment on above: Order Comment: Speci men Type: BLOOD SPECIMEN Ordering Facility: [facility] Address: [address] [place] [address] Performed By: #### 2 157-6, 62158-5 #### [facility] CLIA [id number] [address] [place] Chloride [Moles/Vol] 101 mmol/L Normal 97-105 [facility] Comment on above: Order Comment: Speci men Type: BLOOD SPECIMEN Ordering Facility: [facility] Address: [address] [place] [address] Performed By: #### 2 157-6, 00176-2 #### [facility] CLIA [id number] [address] [place] CO2 [Moles/Vol] 27 mmol/L Normal 22-30 [facility] Comment on above: Order Comment: Speci men Type: BLOOD SPECIMEN Ordering Facility: [facility] Address: [address] [place] [address] Performed By: #### 2 157-6, 67121-2 #### [facility] CLIA [id number] [address] STATES OF [facility] Creatinine [Mass/Vol] 0.86 mg/dL Normal 0.73-1.22 [facility] Comment on above: Order Comment: Speci men Type: BLOOD SPECIMEN Ordering Facility: [facility] Address: [address] [place] [address] Performed By: #### 2 157-6, 17263-6 #### [facility] CLIA [id number] [address] Creatinine and Glomerular filtration rate.predicted panel (S/P/Bld) 99 mL/min/1.73m??? Normal >=60 [facility] Comment on above: Order Comment: Speci men Type: BLOOD SPECIMEN Ordering Facility: [facility] Address: [address] [place] [address] Result Comment: Chirag mated Glomerular Filtration Rate (eGFR) is calculated using the 2020 CKD-EPI creatinine equation. This equation utilizes serum creatinine, sex, and age as parameters. The creatinine assay has traceable calibration to isotope dilution-mass spectrometry. Refer to KDIGO guidelines for clinical interpretation. In patients with unstable renal function, e.g. those with acute kidney injury, the eGFR may not accurately reflect actual GFR. Performed By: #### 2 157-6, 88694-0 #### [facility] CLIA [id number] [address] [place] Glucose [Mass/Vol] 95 mg/dL Normal 74-99 [facility] Comment on above: Order Comment: Speci men Type: BLOOD SPECIMEN Ordering Facility: [facility] Address: [address] [place] [address] Result Comment: The [place] [employer] (ADA) provides guidance for cutoff values for fasting glucose and random glucose. The ADA defines fasting as no caloric intake for at least 8 hours. Fasting plasma glucose results between 100 to 125 mg/dL indicate increased risk for diabetes (prediabetes). Fasting plasma glucose results greater than or equal to 126 mg/dL meet the criteria for diagnosis of diabetes. In the absence of unequivocal hyperglycemia, results should be confirmed by repeat testing. In a patient with classic symptoms of hyperglycemia or hyperglycemic crisis, random plasma glucose results greater than or equal to 200 mg/dL meet the criteria for diagnosis of diabetes. Reference: Standards of Medical Care in Diabetes 2016, [place] [employer]. Diabetes Care. 2016.39(Suppl 1). Performed By: #### 2 157-6, 48272-2 #### [facility] CLIA [id number] [address] [place] [address] [place] Potassium [Moles/Vol] 4.4 mmol/L Normal 3.7-5.1 [facility] Comment on above: Order Comment: Ariana rodriguez Type: BLOOD SPECIMEN Ordering Facility: [facility] Address: [address] [place] [address] Performed By: #### 2 157-6, #### [facility] CLIA [id number] [address] [place] [address] [place] Protein [Mass/Vol] 7.7 g/dL Normal 6.3-8.0 [facility] Comment on above: Order Comment: Ariana rodriguez Type: BLOOD SPECIMEN Ordering Facility: [facility] Address: [address] [place] [address] Performed By: #### 2 157-6, 40049-4 #### [facility] CLIA [id number] [address] [place] [address] [place] Sodium [Moles/Vol] 136 mmol/L Normal 136-144 [facility] Comment on above: Order Comment: Ariana rodriguez Type: BLOOD SPECIMEN Ordering Facility: [facility] Address: [address] [place] [address] Performed By: #### 2 157-6, 67752-0 #### [facility] CLIA [id number] [address] [place], [place] [id number] [place] [address] Urea nitrogen [Mass/Vol] 14 mg/dL Normal 01-24 [facility] Comment on above: Order Comment: Speci men Type: BLOOD SPECIMEN Ordering Facility: [facility] Address: [place] [address] Performed By: #### 2 157-6, 84873-3 #### [facility] CLIA [id number] [address] [place] [id number] [facility] ED NOTEon 04-27-2023 ED NOTE HNO ID: [id number] Author: Dez Rizvi, SHIRLEY Service: ? Author Type: Registered Nurse Type: ED Notes Filed: 04/27/2023 10:03 PM Note Text: Pt will be transferred to [address] [phone] for report Normal [facility] ED NOTE HNO ID: [id number] Author: Dez Rizvi, SHIRLEY Service: ? Author Type: Registered Nurse Type: ED Notes Filed: 04/27/2023 9:45 PM Note Text: Pt right foot light purple in color. Delayed cap refill. Sensation intact but decreased. Pt c/o pain in knee. [facility] ED NOTE HNO ID: [id number] Author: Yolis King RN Service: Nursing Author Type: Registered Nurse Type: ED Notes Filed: 04/27/2023 5:21 PM Note Text: Right lower leg and foot purple color and cooler than left. December he had artery worked on. This pain and numbness feels similar before the procedure. Cap refill in right foot/toes 6 seconds. He has noticed this worsening since Wednesday [facility] ED PROV NOTEon 04-27-2023 ED PROV NOTE HNO ID: [id number] Author: Wale Mccarthy PA-C Service: Emergency Medicine Author Type: Physician M[employer] Cl[employer] Changer Type: ED Provider Notes Filed: 04/27/2023 8:45 PM Note Text: Attestation signed by Rosa, Ilia Monson MD at 04/28/2023 9:07 AM Y ED Provider Note Patient Name: Choco Maldonado : 1960 SERVICE DATE: 04/27/23 History Patient presents with: Numbness: A little numb in my right leg and foot Patient is a 62 male with history of PAD, he was traveling in [place] and develop limb ischemia with leg pain. He went to ER and CT demonstrated right distal SFA and popliteal occlusion. He underwent right popliteal to tibioperoneal trunk bypass 4x7mm ringed Goretex on 12/28/22. He was started on xarelto 2.5mg recently upon returning to [place]. Who presents to the emergency department for 3 days of right lower extremity pain, pallor, coolness, and paresthesias. Patient states it feels very similar to when he had acute limb ischemia previously in [place]. He talked to his vascular surgeon Dr. Alonso who recommended patient come to the emergency department for evaluation. Patient has been taking his Xarelto daily has not missed a dose. Patient states he still been able to ambulate and has good range of motion of his lower extremities, paresthesias and pain are intermittent. He denies any chest pain, palpitation, shortness of breath, fevers, rashes. Denies injury to the area. PAST MEDICAL HISTORY Diagnosis Date - Acute diverticulitis - Aortic insufficiency - Bursitis of elbow left - Coronary artery disease mild nonobstructive - Diverticulitis - Migraines - PAD (peripheral artery disease) ([facility]) - Palpitations - Pinched nerve 11/04/2020 low back - Psoriasis - Raynaud disease - SVT (supraventricular tachycardia) - Tobacco abuse PAST SURGICAL HISTORY Procedure Laterality Date - COLONOSCOPY FLX DX W/COLLJ SPEC WHEN PFRMD 05/23/2014 Colonoscopy - COLONOSCOPY FLX DX W/COLLJ SPEC WHEN PFRMD 09/24/2017 Colonoscopy - COLONOSCOPY FLX DX W/COLLJ SPEC WHEN PFRMD 04/16/2021 - ESOPHAGOGASTRODUODENOSCOPY TRANSORAL DIAGNOSTIC 05/23/2014 EGD - ESOPHAGOGASTRODUODENOSCOPY TRANSORAL DIAGNOSTIC 08/15/2014 EGD - HEMORRHOIDECTOMY INT AND XTRNL 2/> COLUMN/FAHEEM 10/01/2017 left posterior - PAST SURGICAL HISTORY OF 2008 Pain injections lumbar - PAST SURGICAL HISTORY OF 08/03/2022 colostomy - PAST SURGICAL HISTORY OF Right 12/2022 right popliteal to tibioperoneal trunk bypass - RT/LT [facility] 08/09/2020 [facility] FAMILY HISTORY Problem Relation Age of Onset - Breast Cancer Mother - Diabetes Father - Heart Father - other (Raynauds) Daughter - other (Raynauds) Son - Diabetes Maternal Grandfather Social History Tobacco Use - Smoking status: Every Day Packs/day: 1.00 Years: 39.00 Additional pack years: 0.00 Total pack years: 39.00 Types: Cigarettes Start date: 02/11/1981 - Smokeless tobacco: Never Vaping Use - Vaping Use: Never used Substance and Sexual Activity - Alcohol use: Yes Comment: 3-4 drinks per day 5 days per week - Drug use: No - Sexual activity: Not on file ALLERGIES Allergen Reactions - Verapamil Rash Review of Systems Constitutional: Negative for activity change, appetite change, fatigue and fever. Respiratory: Negative for cough and shortness of breath. Cardiovascular: Negative for chest pain and palpitations. Gastrointestinal: Negative for abdominal pain, blood in stool, diarrhea, nausea and vomiting. Musculoskeletal: Right leg pain Skin: Positive for color change. Neurological: Negative for dizziness, speech difficulty, weakness, light-headedness, numbness and headaches. Paresthesias of right lower extremity All other systems reviewed and are negative. Physical Exam Vitals [04/27/23 1718] BP Pulse Temp Temp src Resp SpO2 Weight Height 140/77 70 36.4 ?C (97.5 ?F) Temporal 16 97 % 81.6 kg (180 lb) -- Physical Exam Vitals and nursing note reviewed. Constitutional: General: He is not in acute distress. Appearance: Normal appearance. He is normal weight. He is not ill-appearing or toxic-appearing. Cardiovascular: Rate and Rhythm: Normal rate and regular rhythm. Heart sounds: Normal heart sounds. No murmur heard. No friction rub. No gallop. Pulmonary: Effort: Pulmonary effort is normal. Breath sounds: Normal breath sounds. Abdominal: General: Abdomen is flat. Bowel sounds are normal. Palpations: Abdomen is soft. Musculoskeletal: Comments: Right foot discoloration, purple in color especially in the big toe with 5+ cap refill, sensation intact of the right foot, plantar, dorsi flexion intact, able to straight leg raise and bend at knee without significant difficulty/weakness, posterior (more content not included)... Normal [facility] Gas + CO Pnl BldVon 04-27-20 Hemoglobin (Bld) [Mass/Vol] 13.0 g/dL Normal 13.0-17.0 [facility] Comment on above: Order Comment: Ariana rodriguez Type: VENOUS BLOOD SPECIMEN Ordering Facility: [facility] Address: [address] [place] [address] Performed By: #### 2 4344-4 #### [facility] CLIA [id number] [facility] [address] [place] [address] Order Comment: Ariana rodriguez Type: BLOOD SPECIMEN Ordering Facility: [facility] Address: [address] [place] [address] Performed By: #### 5 7021-8 #### [facility] CLIA [id number] [address] OF [facility] Gas and Carbon monoxide pane l (BldV)on 04-27-2023 Base excess Calc (BldV) [Moles/Vol] 1 mmol/L Normal 0-2 [facility] Comment on above: Order Comment: Ariana rodriguez Type: VENOUS BLOOD SPECIMEN Ordering Facility: [facility] Address: [address] [place] [address] Performed By: #### 2 4344-4 #### [facility] CLIA [id number] [facility] [address] [place] [address] Carboxyhemoglobin (BldV) [Mass fraction] 5.1 % High 0.0-2.0 [facility] Comment on above: Order Comment: Speci men Type: VENOUS BLOOD SPECIMEN Ordering Facility: [facility] Address: [address] [place] [address] Result Comment: Carb oxyhemoglobin Reference Range for Smokers: 2.0-8.0% Performed By: #### 2 4344-4 #### [facility] CLIA [id number] [facility] [address] [address] CO2 (BldV) [Partial pressure] 49 mm[Hg] Normal 42-55 [facility] Comment on above: Order Comment: Speci men Type: VENOUS BLOOD SPECIMEN Ordering Facility: [facility] Address: [address] [place] [address] Performed By: #### 2 4344-4 #### [facility] CLIA [id number] [facility] [address] [address] CO2 adjusted to patient's actual temperature (BldV) [Partial pressure] Normal [facility] Comment on above: Order Comment: Speci men Type: VENOUS BLOOD SPECIMEN Ordering Facility: [facility] Address: [address] [place] [address] Performed By: #### 2 4344-4 #### [facility] CLIA [id number] [facility] [address] [address] HCO3 (Bld) [Moles/Vol] 27 mmol/L Normal 24-28 [facility] Comment on above: Order Comment: Speci men Type: VENOUS BLOOD SPECIMEN Ordering Facility[facility] Address: [address] [place] [address] Performed By: #### 2 4344-4 #### [facility] CLIA [id number] [facility] [address] [address] Lactate [Moles/Vol] 1.5 mmol/L Normal 0.5-2.2 [facility] Comment on above: Order Comment: Speci men Type: VENOUS BLOOD SPECIMEN Ordering Facility[facility] Address: [address] [place] [address] Performed By: #### 2 4344-4 #### [facility] CLIA [id number] [facility] [address] [address] Methemoglobin (Bld) [Mass fraction] % Normal 0.0-1.5 [facility] Comment on above: Order Comment: Speci men Type: VENOUS BLOOD SPECIMEN Ordering Facility: [facility] Address: [address] [place] [address] Performed By: #### 2 4344-4 #### [facility] CLIA [id number] [facility] [address] [address] O2 THERAPY RA=Room Air Normal [facility] Comment on above: Order Comment: Speci men Type: VENOUS BLOOD SPECIMEN Ordering Facility[facility] Address: [address] [place] [address] Performed By: #### 2 4344-4 #### [facility] CLIA [id number] [facility] [address] [address] Oxygen (BldV) [Partial pressure] mm[Hg] Low 35-45 [facility] Comment on above: Order Comment: Speci men Type: VENOUS BLOOD SPECIMEN Ordering Facility: [facility] Address: [address] [place] [address] Performed By: #### 2 4344-4 #### [facility] CLIA [id number] [facility] [address] [address] Oxygen adjusted to patient's actual temperature (BldV) [Partial pressure] Normal [facility] Comment on above: Order Comment: Speci men Type: VENOUS BLOOD SPECIMEN Ordering Facility[facility] Address: [address] [place] [address] Performed By: #### 2 4344-4 #### [facility] CLIA [id number] [facility] [address] [address] Oxyhemoglobin (BldV) [Mass fraction] 34 % Low 60-85 [facility] Comment on above: Order Comment: Speci men Type: VENOUS BLOOD SPECIMEN Ordering Facility[facility] Address: [address] [place] [address] Performed By: #### 2 4344-4 #### [facility] CLIA [id number] [facility] [address] [address] pH (BldV) 7.35 [pH] Normal 7.32-7.42 [facility] Comment on above: Order Comment: Speci men Type: VENOUS BLOOD SPECIMEN Ordering Facility[facility] Address: [address] [place] [address] Performed By: #### 2 4344-4 #### [facility] CLIA [id number] [facility] [address] [address] pH adjusted to patient's actual temperature (BldV) Normal [facility] Comment on above: Order Comment: Ariana rodriguez Type: VENOUS BLOOD SPECIMEN Ordering Facility: [facility] Address: [address] [place] [address] Performed By: #### 2 4344-4 #### [facility] CLIA [id number] [facility] [address] [address] Potassium [Moles/Vol] 4.0 mmol/L Normal 3.5-5.0 [facility] Comment on above: Order Comment: Speci men Type: VENOUS BLOOD SPECIMEN Ordering Facility[facility] Address: [address] [place] [address] Performed By: #### 2 4344-4 #### [facility] CLIA [id number] [facility] [address] [address] PT panel Coag (PPP)on 2022 INR Coag (PPP) [Relative time] 1.0 {INR} Normal 0.9-1.3 [facility] Comment on above: Order Comment: Speci men Type: BLOOD SPECIMEN Ordering [facility] Address: [address] [place] [address] Result Comment: Isa min K Antagonist (VKA) Therapeutic Range: INR 2 to 3 (Target INR of 2.5) Note: For patients treated with VKA drugs, such as warfarin, the [place] [employer] 2012 Guideline recommends a therapeutic INR range of 2 to 3 (target INR of 2.5). This recommendation includes high-risk patients with antiphospholipid syndrome with previous arterial or venous thromboembolism, current-generation mechanical or bioprosthetic aortic heart valve replacement. Note: Patients with mechanical aortic valve replacement and additional risk factors for thromboembolic events (atrial fibrillation, previous thromboembolism, LV dysfunction, hypercoagulable conditions) or an older generation mechanical AVR (i.e., ball in-Cage) or any mechanical MVR should have a INR therapeutic range of 2.5 to 3.5 (target INR of 3). Saskia PARKER, et al. Chest 2012, 141:7S-47S Acosta RA, et al. [facility] 2017, 70: 252-289 Performed By: #### 1 4979-9, 46650-5 #### [facility] CLIA [id number] [address] [place] [address] [place] PT Coag (PPP) [Time] 10.9 s Normal 9.7-13.0 [facility] Comment on above: Order Comment: Ariana rodriguez Type: BLOOD SPECIMEN Ordering [facility] Address: [address] [place] [address] Performed By: #### 1 4979-9, 91634-3 #### [facility] CLIA [id number] [address] [place] aPTT PPPon 04-27-2023 aPTT Coag (PPP) [Time] 39.9 s High 23.0-32.4 [facility] Comment on above: Order Comment: Ariana rodriguez Type: BLOOD SPECIMEN Ordering Facility[facility] Address: [address] [place] [address] Performed By: #### 1 4979-9, 81177-7 #### [facility] CLIA [id number] [address] Laboratory - Drug toxicology Ordered By: Malinda Calvert on 03-18-2023 Amphetamines Ql (U) Negative <1000 ng/mL [facility] Benzodiazepines Ql (U) Negative < 200 ng/mL [facility] Cannabinoids Screen Ql (U) Negative < 50 ng/mL [facility] Cocaine Ql (U) Negative < 300 ng/mL [facility] Opiates Ql (U) Negative < 300 ng/mL [facility] No Panel InformationOrdered By: Malinda Silvarashida on 03-18-2023 MDMA (Ecstasy) Screen Negative < 500 ng/mL [facility] Miscellaneous Test See comment [facility] Comment on above: [id number] 6+OXYCODONE-B UND (ng/mL) DRUG RESULT SCREEN CUTOFF____ Amphetamines,Urine Negative ng/mL 1000 Amphetamine test includes Amphetamine and Methamphetamine.Barbiturates Negative ng/mL 200Benzodiazepines Negative ng/mL 200Cannabinoid Negative ng/mL 20Cocaine (Metab) Negative ng/mL 300Opiates Negative ng/mL 300 Opiates test includes Codeine, Morphine, Hydromorphone, Hydrocodone. Oxycodone/Oxymorphone,Urine Negative ng/mL 300 Test includes Oxycodone and Oxymorphone. ____ TESTING PERFORMED AT [facility]. ORIGINAL REPORT ON FILE IN LAB CONTAINS ADDITIONAL TEST SITE INFORMATION. ____ Urine Barbiturates Screen Negative < 200 ng/mL [facility] Urine Drug Screen Comment [facility] Comment on above: CONFIRMATORY TESTING FOR ALL POSITIVE URINE DRUG SCREENRESULTS WILL ONLY BE SENT OUT UPON PHYSICIAN ORDER. VISTA Urine Drug Screen methods provide only preliminaryanalytical test results. A more specific alternate chemicalmethod must be used in order to obtain a confirmedanalytical result. Gas chromatography/mass spectrometery(GC/MS) is the preferred confirmatory method. Clinicalconsideration and professional judgement should be appliedto any drug of abuse test result, particularly whenpreliminary positive results are used. URINE TCA TESTING MUST BE ORDERED SEPARATELY. USE TESTMNEMONIC: [facility] Urine Methadone Screen Negative < 300 ng/mL [facility] Urine phencyclidine (PCP) de tectionOrdered By: Malinda Calvert on 03-18-2023 Phencyclidine Ql (U) Negative < 25 ng/mL [facility] Qualitative QuantiFERON-TB g old in tube testOrdered By: Berry Mejía on 03-10-2023 M. tuberculosis tuberculin stim IFN-g Ql (Bld) 0 IU/mL . [facility] Serum hepatitis B virus core antibody detectionOrdered By: Berry Mejía on 03-10-2023 HBV core Ab Ql (S) Negative Negative [facility] Comment on above: Performed at: [place] [id number] Director: Lopez John PhD, Phone: [phone] Thin prep Papanicolaou smear with manual screeningOrdered By: Berry Mejía on 03-10-2023 Thin prep Papanicolaou smear with manual screening Comment . [facility] Comment on above: QuantiFERON-TB Gold Plus is a qualitative indirect test forM tuberculosis infection (including disease) and isintended for use in conjunction with risk assessment,radiography, and other medical and diagnostic evaluations.The QuantiFERON-TB Gold Plus result is determined bysubtracting the Nil value from either TB antigen (Ag)value. The Mitogen tube serves as a control for the test. Thin prep Papanicolaou smear with manual screening 0 IU/mL . [facility] Thin prep Papanicolaou smear with manual screening > 10.00 IU/mL . [facility] Thin prep Papanicolaou smear with manual screening Negative Negative [facility] Comment on above: No response to M tub erculosis antigens detected.Infection with M tuberculosis is unlikely, but high riskindividuals should be considered for additional testing(ATS/IDSA/CDC Clinical Practice Guidelines, 2017). Thereference range is an Antigen minus Nil result of <0.35IU/mL.The specimen received for QuantiFERON testing was incubatedby the ordering institution. Specific procedures outlinedin our Directory of Services and in the package insert forthe QuantiFERON Gold (In Tube) test must be followed toenable for proper stimulation of cells for the productionof interferon gamma. Chemiluminescence immunoassaymethodology CBC W Auto Differential pane l (Bld)on 01-11-2023 Basophils (Bld) [#/Vol] 0.10 10*3/uL <0.11 k/uL [facility] Basophils/100 WBC (Bld) 0.7 % [facility] Differential cell count method Nom (Bld) Auto [facility] Eosinophils (Bld) [#/Vol] 0.19 10*3/uL <0.46 k/uL [facility] Eosinophils/100 WBC (Bld) 1.3 % [facility] Erythrocyte distribution width (RBC) [Ratio] 16.0 % High 11.5 - 15.0 % [facility] Hematocrit (Bld) [Volume fraction] 44.2 % 39.0 - 51.0 % [facility] Hemoglobin (Bld) [Mass/Vol] 14.4 g/dL 13.0 - 17.0 g/dL [facility] Immature granulocytes (Bld) [#/Vol] 0.05 10*3/uL <0.10 k/uL [facility] Immature granulocytes/100 WBC (Bld) 0.3 % [facility] Lymphocytes (Bld) [#/Vol] 2.95 10*3/uL 1.00 - 4.00 k/uL [facility] Lymphocytes/100 WBC (Bld) 20.0 % [facility] MCH (RBC) [Entitic mass] 28.6 pg 26.0 - 34.0 pg [facility] MCHC (RBC) [Mass/Vol] 32.6 g/dL 30.5 - 36.0 g/dL [facility] MCV (RBC) [Entitic vol] 87.7 fL 80.0 - 100.0 fL [facility] Monocytes (Bld) [#/Vol] 0.47 10*3/uL <0.87 k/uL [facility] Monocytes/100 WBC (Bld) 3.2 % [facility] Neutrophils (Bld) [#/Vol] 11.00 10*3/uL High 1.45 - 7.50 k/uL [facility] Neutrophils/100 WBC (Bld) 74.5 % [facility] Nucleated RBC (Bld) [#/Vol] <0.01 k/uL [facility] Nucleated RBC/100 WBC (Bld) [Ratio] 0.0 /100 WBC [facility] Platelet mean volume (Bld) [Entitic vol] 9.9 fL 9.0 - 12.7 fL [facility] Platelets (Bld) [#/Vol] 453 10*3/uL High 150 - 400 k/uL [facility] RBC (Bld) [#/Vol] 5.04 10*6/uL 4.20 - 6.0 0 m/uL [facility] WBC (Bld) [#/Vol] 14.76 10*3/uL High 3.70 - 11 .00 k/uL [facility] CREATININE BLDon 11-05-2022 Creatinine [Mass/Vol] 0.91 mg/dL 0.73 - 1.22 mg/dL [facility] Estimated Glomerular Filtration Rate 96 mL/min/1.73m >=60 mL/min/1.73m [facility] CT Chest for screening WO co ntraston 09-08-2022 IMPRESSION: LungRADS category: 3 LungRADS modifier: None LungRADS 0 reason: n/a Recommendations: Followup LDCT in 6 months Reference: [employer]. Lung CT Screening Reporting and Data System (Lung-RADS). Available at: http://www.acr.org/Quality- Safety/Resources/LungRADS Bartacker: ANNALISE Transcribe Date/Time: Sep 08 2022 1:40P Dictated by : HÉCTOR DUGGAN MD This examination was interpreted and the report reviewed and electronically signed by: HÉCTOR DUGGAN MD on Sep 08 2022 1:50PM [facility] DIVISION OF RADIOLOGY * * *Final Report* * * DATE OF EXAM: Sep 07 2022 3:13PM [facility] 0562 - CT LUNG SCREEN WO IVCON / PROCEDURE REASON: Tobacco use * * * * Physician Interpretation * * * * EXAMINATION: CHEST CT WITHOUT CONTRAST (LOW-DOSE CT LUNG CANCER SCREENING PROTOCOL) CLINICAL HISTORY: Lung cancer LDCT screening ? absence of signs or symptoms of lung cancer. Nicotine dependence (cigarettes). Subsequent (annual) Technique: Spiral CT acquisition of the chest from the thoracic inlet to the upper abdomen without contrast. MQ: CTLCS_6 Patient characteristics: * Stol-mn-Namoy: 1960; Age at exam: 61 years * Gender: Male * Lung Disease: Asymptomatic (no signs or symptoms of lung disease) * Number of Pack Years: 39 * Current smoker (=0) or Number of Years since Quit: 0 * Ordering provider and NPI: NANCI INGRAM [id number] * Interpreting radiologist and NPI: Vladislav [id number] Exam acquisition parameters: * Exam Date: 09/07/2022 3:13 PM * Site: [facility] * * CT System Physicist Astrophysics: LeanKit * CT System Model: ZapMe * Tube Current-Time (mA-sec): 32.5 * Peak Voltage (kV): 120V * Scan Time (sec): 4.69 * Scan Volume (z-length, cm): 30.20 * Pitch: 0.984 * Slice Thickness (mm): 1.25 * CT Dose-Length Product: 123.11 mGy*cm * CT Dose Index: 2.88mGy * CT Dose Reduction Method: Iterative recon and mAs-kVp adjusted using patient size-age COMPARISON: Prior lung screen dated 06/24/2021 RESULT: Are nodules present? Yes, 1-5 nodules Lung nodule comments: 13 mm semisolid right upper lobe nodule with solid component approximately 4 mm (110) new from prior, probably focus of atelectasis or inflammation. 3 mm right upper lobe nodule (102) unchanged. 3 mm right upper lobe nodule (145) unchanged. Other findings: Mild coronary calcifications. Aortic root calcifications. Mild degenerative changes of the thoracic spine. Bronchial thickening and mild upper lobe predominant paraseptal and centrilobular emphysema. DIVISION OF RADIOLOGY Provider, [facility] - 09/08/2022 * * *Final Report* * * DATE OF EXAM: Sep 07 2022 3:13PM [facility] 0562 - CT LUNG SCREEN WO IVCON / PROCEDURE REASON: Tobacco use * * * * Physician Interpretation * * * * EXAMINATION: CHEST CT WITHOUT CONTRAST (LOW-DOSE CT LUNG CANCER SCREENING PROTOCOL) CLINICAL HISTORY: Lung cancer LDCT screening ? absence of signs or symptoms of lung cancer. Nicotine dependence (cigarettes). Subsequent (annual) Technique: Spiral CT acquisition of the chest from the thoracic inlet to the upper abdomen without contrast. MQ: CTLCS_6 Patient characteristics: * Htpj-nn-Nhunh: 1960; Age at exam: 61 years * Gender: Male * Lung Disease: Asymptomatic (no signs or symptoms of lung disease) * Number of Pack Years: 39 * Current smoker (=0) or Number of Years since Quit: 0 * Ordering provider and NPI: NANCI INGRAM [id number] * Interpreting radiologist and NPI: Vladislav [id number] Exam acquisition parameters: * Exam Date: 09/07/2022 3:13 PM * Site: [facility] * * CT System Physicist Astrophysics: LeanKit * CT System Model: ZapMe * Tube Current-Time (mA-sec): 32.5 * Peak Voltage (kV): 120V * Scan Time (sec): 4.69 * Scan Volume (z-length, cm): 30.20 * Pitch: 0.984 * Slice Thickness (mm): 1.25 * CT Dose-Length Product: 123.11 mGy*cm * CT Dose Index: 2.88mGy * CT Dose Reduction Method: Iterative recon and mAs-kVp adjusted using patient size-age COMPARISON: Prior lung screen dated 06/24/2021 RESULT: Are nodules present? Yes, 1-5 nodules Lung nodule comments: 13 mm semisolid right upper lobe nodule with solid component approximately 4 mm (110) new from prior, probably focus of atelectasis or inflammation. 3 mm right upper lobe nodule (102) unchanged. 3 mm right upper lobe nodule (145) unchanged. Other findings: Mild coronary calcifications. Aortic root calcifications. Mild degenerative changes of the thoracic spine. Bronchial thickening and mild upper lobe predominant paraseptal and centrilobular emphysema. IMPRESSION IMPRESSION: LungRADS category: 3 LungRADS modifier: None LungRADS 0 reason: n/a Recommendations: Followup LDCT in 6 months Reference: [employer]. Lung CT Screening Reporting and Data System (Lung-RADS). Available at: http://www.acr.org/Quality- Safety/Resources/LungRADS Bartacker: ANNALISE Transcribe Date/Time: Sep 08 2022 1:40P Dictated by : HÉCTOR DUGGAN MD This examination was interpreted and the report reviewed and electronically signed by: HÉCTOR DUGGAN MD on Sep 08 2022 1:50PM EST [facility] CT Chest for screening WO co ntrastOrdered By: [facility] Provider on 09-08-[address] [facility] [address] Chest for screening WO co ntraston 09-07-2022 Radiology Study observation (narrative) [facility] CBC W Auto Differential pane l (Bld)on 09-02-2022 Basophils (Bld) [#/Vol] 0.07 10*3/uL <0.11 k/uL [facility] Basophils/100 WBC (Bld) 0.7 % [facility] Differential cell count method Nom (Bld) Auto [facility] Eosinophils (Bld) [#/Vol] 0.31 10*3/uL <0.46 k/uL [facility] Eosinophils/100 WBC (Bld) 3.0 % [facility] Erythrocyte distribution width (RBC) [Ratio] 19.9 % High 11.5 - 15.0 % [facility] Hematocrit (Bld) [Volume fraction] 48.1 % 39.0 - 51.0 % [facility] Hemoglobin (Bld) [Mass/Vol] 15.2 g/dL 13.0 - 17.0 g/dL [facility] Immature granulocytes (Bld) [#/Vol] 0.03 10*3/uL <0.10 k/uL [facility] Immature granulocytes/100 WBC (Bld) 0.3 % [facility] Lymphocytes (Bld) [#/Vol] 3.66 10*3/uL 1.00 - 4.00 k/uL [facility] Lymphocytes/100 WBC (Bld) 35.6 % [facility] MCH (RBC) [Entitic mass] 26.0 pg 26.0 - 34.0 pg [facility] MCHC (RBC) [Mass/Vol] 31.6 g/dL 30.5 - 36.0 g/dL [facility] MCV (RBC) [Entitic vol] 82.4 fL 80.0 - 100.0 fL [facility] Monocytes (Bld) [#/Vol] 0.67 10*3/uL <0.87 k/uL [facility] Monocytes/100 WBC (Bld) 6.5 % [facility] Neutrophils (Bld) [#/Vol] 5.53 10*3/uL 1.45 - 7.50 k/uL [facility] Neutrophils/100 WBC (Bld) 53.9 % [facility] Nucleated RBC (Bld) [#/Vol] <0.01 k/uL [facility] Nucleated RBC/100 WBC (Bld) [Ratio] 0.0 /100 WBC [facility] Platelet mean volume (Bld) [Entitic vol] 9.9 fL 9.0 - 12.7 fL [facility] Platelets (Bld) [#/Vol] 350 10*3/uL 150 - 400 k/uL [facility] RBC (Bld) [#/Vol] 5.84 10*6/uL 4.20 - 6.0 0 m/uL [facility] WBC (Bld) [#/Vol] 10.27 10*3/uL 3.70 - 11 .00 k/uL [facility] ESR Westergren method (Bld) [Velocity]on 09-02-2022 ESR (Bld) [Velocity] 8 mm/h 0 - 15 mm/hr [facility] ANES POSTPROC EVALon 023 ANES POSTPROC EVAL HNO ID: [id number] Author: Coby Hamilton MD Service: Anesthesiology Author Type: Anesthesiologist Type: Anesthesia Postprocedure Evaluation Filed: 06/25/2022 1:05 PM Note Text: POST ANESTHESIA EVALUATION NOTE : 1960 Procedure Summary Date: 06/25/22 Room / Location: OR / OR Anesthesia Start: 1048 Anesthesia Stop: 1242 Procedure: FASCIECTOMY, PALM ONLY, W/ OR W/O Z-PLASTY, OTHER LOCAL TISSUE REARRANGEMENT, OR SKIN GRAFTING (Right: Hand) Diagnosis: Dupuytren's disease of palm (Dupuytren's disease of palm [M72.0]) Surgeons: Randall Shah MD, PhD Responsible Provider: Coby Hamilton MD Anesthesia Type: MAC ASA Status: 3 Anesthesia Type: MAC Last Vitals Vitals Value Taken Time BP 140/81 06/25/22 1300 Temp 36.1 ?C (97 ?F) 06/25/22 1242 HR SpO2 67 06/25/22 1242 Resp 16 06/25/22 1300 SpO2 97 % 06/25/22 1302 Vitals shown include unvalidated device data. Post Anesthesia Patient Status Patient Evaluation: PACU. PACU/ICU Patient Condition: stable. Anticipated Disposition: phase 2 then home. Neurological Status: aware and responsive. Pulmonary Status: breathing comfortably on room air Airway Control: returned to baseline unsupported. Cardiovascular Status: stable. Pain Management: clinically adequate Postoperative Hydration: acceptable. Intraoperative Events: no significant anesthesia events Post Operative Nausea/Vomiting Status: no significant post operative nausea or vomiting Recommendation: continue current plan of care. Anesthesia Observations No Documentation SIGNATURE: Coby Hamilton MD PATIENT NAME: Choco Maldonado DATE: June 25, 2022 TIME: 1:05 PM CSN: [id number] [facility] ANES PRE-OPon 06-25-2022 ANES PRE-OP HNO ID: [id number] Author: Coby Hamilton MD Service: Anesthesiology Author Type: Anesthesiologist Type: Anesthesia Preprocedure Evaluation Filed: 06/25/2022 9:28 AM Note Text: ANESTHESIOLOGY DAY OF SURGERY NOTE : 1960 Procedure Information Date/Time: 06/25/22 1006 Procedure: FASCIECTOMY, PALM ONLY, W/ OR W/O Z-PLASTY, OTHER LOCAL TISSUE REARRANGEMENT, OR SKIN GRAFTING (Right: Hand) - RIGHT Hand Dupuytren's contracture release specifically of the long, ring, and small fingers Location: OJ OR06 / OJ OR Surgeons: Randall Shah MD, PhD Estimated body mass index is 22.73 kg/m? as calculated from the following: Height as of 06/08/22: 188 cm (6' 2). Weight as of 06/08/22: 80.3 kg (177 lb). Most recent hematocrit and potassium results: Hematocrit 53.3 05/01/2022 Potassium 5.1 05/13/2022 Relevant Problems CARDIO (+) Angina pectoris (HCC) (+) Aortic valve regurgitation (+) Bilateral carotid artery stenosis (+) Migraine with aura, not intractable, without status migrainosus (+) Primary hypertension (+) SVT (supraventricular tachycardia) (HCC) GI (+) GERD (gastroesophageal reflux disease) NEURO-PSYCH (+) Migraine with aura, not intractable, without status migrainosus I - PHYSICAL EVALUATION AIRWAY Patient intubated: No. Tracheostomy tube not present Mallampati: III. TM distance: >3 FB. Neck ROM: full ROM without neurological symptoms. Mouth opening: adequate. Short neck: no. Thick neck: no Durand present: no DENTAL Dental findings: missing tooth/teeth. II - ANESTHESIA PLAN ASA Score: 3 Anesthetic Plan: MAC NPO Status: adequate Beta Jasmina Monitoring Plan Monitoring plan: standard ASA. Post Procedure Analgesic Plan Postoperative analgesic plan: parenteral or oral opioids, multimodal analgesia and peripheral nerve block. Informed Consent Anesthetic risks, benefits, alternatives, personnel and consent discussed: yes. Patient / Responsible Democrat agrees to proceed: yes Patient / Surrogate agrees to blood products: blood products not planned Significant changes in the patient condition since the History and Physical, not otherwise documented in primary service progress note: no. Vitals Value Taken Time BP 154/71 06/25/22 08 Pulse 76 06/25/22825 Resp 18 06/25/22825 Temp 36.7 ?C (98.1 ?F) 06/25/22 08 SpO2 96 % 06/25/22 08 Facility-Administered Medications as of 06/25/2022 Medication Dose Route Frequency - lidocaine (PF) 10 mg/mL (1 %) 1-2 mg injection (XYLOCAINE) 0.1-0.2 mL INTRADERMAL PRN - lactated ringers iv infusion 5-30 mL/hr INTRAVENOUS CONTINUOUS - NaCl 0.9% iv flush bag 20 mL INTRAVENOUS PRN - ceFAZolin iv piggyback 2 g in D5W (iso-osmotic) 100 mL (ANCEF) 2 g INTRAVENOUS Pre-Op Once Outpatient Medications as of 06/25/2022 Medication Sig - fremanezumab-vfrm (AJOVY AUTOINJECTOR) 225 mg/1.5 mL auto-injector Ajovy 225 mg/1.5 mL subcutaneous auto-injector Inject 1.5 mL subcutaneously once a month - rimegepant (NURTEC ODT) 75 mg disintegrating tablet Nurtec ODT 75 mg disintegrating tablet Take 1 tab under tongue at onset of migraine. Max 1 in 24 hours. - FLUoxetine (PROZAC) 40 mg capsule Take 1 capsule by mouth once daily. - ixekizumab (TALTZ) 80 mg/mL syringe Inject 80 mg subcutaneously once every month. - acetaminophen (TYLENOL) 325 mg tablet Take 650 mg by mouth every 6 hours as needed. - tiZANidine (ZANAFLEX) 4 mg tablet Take 4 mg by mouth at bedtime as needed. (Patient not taking: Reported on 06/25/2022) - topiramate (TOPAMAX) 50 mg tablet Take 50 mg by mouth as needed. (Patient not taking: Reported on 06/25/2022) - SUMAtriptan (IMITREX) 50 mg tablet (Patient not taking: Reported on 06/25/2022) - omeprazole (PRILOSEC) 20 mg capsule Take 1 capsule by mouth twice daily before meals. 1/2 hr before meal. (Patient not taking: Reported on 06/25/2022) - aspirin, enteric coated (ASPIRIN, ENTERIC COATED) 81 mg EC tablet Take 1 tablet by mouth once daily. (Patient not taking: Reported on 06/25/2022) I have interviewed and examined the patient. I have reviewed the medical record and/or the pre-anesthesia evaluation, pertinent labs, and test results. This contains updated information obtained within 48 hours of Surgery/Procedure. SIGNATURE: Coby Hamilton MD PATIENT NAME: Choco Maldonado DATE: June 25, 2022 TIME: 9:27 AM CSN: [id number] [facility] HISTORY PHYSICALon 3 HISTORY PHYSICAL HNO ID: [id number] Author: Randall Shah MD, PhD Service: Orthopaedic Surgery Author Type: Physician Type: HANDP Filed: 06/25/2022 9:26 AM Note Text: UPDATED HISTORY AND PHYSICAL EXAMINATION SERVICE DATE: 06/25/2022 SERVICE TIME: 8:14 AM PHYSICAL EXAM MUST BE COMPLETED ON ADMISSION The History and Physical (completed in the past 30 days) has been reviewed and the patient has been examined. The contents accurately reflect the patient's condition with the following additions or revisions since the HANDP was completed. Examination indicates no changes. This HANDP can be found in the Electronic Medical Record dated 06/08/2022. Heart: Audible S1 and S2 no gross murmurs Lungs: Equal breathing sounds bilaterally SIGNATURE: Melanie Elias MD PATIENT NAME: Choco Maldonado DATE: June 25, 2022 TIME: 8:14 AM ATTENDING NOTE: I personally performed a history and physical examination on Choco Maldonado to verify the one performed by Melanie Elias MD. I reviewed their findings, plan and note, and have made changes above as needed so that I agree with the documentation. I discussed the plan with the patient. Robert Shah MD, PhD Hand AND Upper Extremity Orthopaedic Staff Surgeon [facility] NURSING PROGon 06-25-2022 NURSING PROG HNO ID: [id number] Author: Shanon Lorenzo RN Service: ? Author Type: Registered Nurse Type: Nursing Progress Note Filed: 06/25/2022 12:42 PM Note Text: Discharge Status: Patient is Drowsy, and is no airway issues. Skin condition was WNL. Transported to recovery room via cart with siderails up. Accompanied by electrical maintenance worker and NANNETTE/. Body temperature maintained by maintaining OR room temperature between 68-72 degrees F, providing patient with warm bath blankets, limiting areas of exposure, and providing warm irrigation fluid. [facility] NURSING PROG HNO ID: [id number] Author: Shanon Lorenzo RN Service: ? Author Type: Registered Nurse Type: Nursing Progress Note Filed: 06/25/2022 10:52 AM Note Text: Patient transported to the OR via cart, accompanied by Luis Armando Subramanian/ Luis Armando Lorenzo. Level of consciousness: Alert and Oriented x 3 Emotional Status:Calm Sensory Impairments: Yes, upper extremity block Language Barrier: No Mobility Impairments: Yes, upper extremity block Addressed any patient concerns regarding consents, OR environment, and anesthetics. Body temperature maintained by maintaining OR room temperature between 68-72 degrees F, providing patient with warm bath blankets, limiting areas of exposure, and providing warm irrigation fluid. [facility] OPERATIVE NOon 06-25-2022 OPERATIVE NO HNO ID: [id number] Author: Randall Shah MD, PhD Service: Orthopaedic Surgery Author Type: Physician Type: Operative Report Filed: 07/13/2022 8:08 AM Note Text: ORTHOPAEDIC SURGERY OPERATIVE REPORT Patient Name: Choco Maldonado Log ID: [id number] Surgery Date: 06/25/2022 Start Time: 11:11 AM Stop Time: 12:21 PM Pre-Op Diagnosis: RIGHT hand Dupuytren's contracture of the Long finger RIGHT hand Dupuytren's contracture of the Ring finger RIGHT hand Dupuytren's contracture of the Small finger RIGHT Carpal tunnel syndrome Post-Op Diagnosis: RIGHT hand Dupuytren's contracture of the Long finger RIGHT hand Dupuytren's contracture of the Ring finger RIGHT hand Dupuytren's contracture of the Small finger RIGHT Carpal tunnel syndrome Operation: RIGHT hand partial palmar fasciectomy of a Dupuytren's contracture of the Long finger RIGHT hand partial palmar fasciectomy of a Dupuytren's contracture of the Ring finger RIGHT hand partial palmar fasciectomy of a Dupuytren's contracture of the Small finger RIGHT Carpal tunnel release Anesthesia: Monitored Anesthesia Care Surgeon: Randall Shah MD PhD Assistants: Rebecca Santana PA-C Estimated Blood Loss: 10 mL Tourniquet Time: 38 minutes Fluids: See anesthesia records UOP: Not monitored Implants: None Drain: None Specimen: 1) RIGHT hand palmar cord 2) RIGHT Ring finger cord 3) RIGHT Long finger cord Final Pathology: 1. Soft tissue, right palm, excision: - Superficial/palmar fibromatosis. 2. Soft tissue, right ring finger, excision: - Superficial/palmar fibromatosis. 3. Soft tissue, right long finger, excision: - Superficial/palmar fibromatosis Operative Indications: The patient is an 61 year old male with a history of Dupuytren's contractures affecting his right long, ring, and small fingers as well as numbness in his hand consistent with carpal tunnel syndrome. After the risks, benefits, and alternatives were discussed, he opted for surgical release of his Dupuytren's contracture and carpal tunnel. Risks, Benefits, and Alternatives The patient was counseled extensively regarding the options for treatment including operative and non-operative forms of treatment and after thorough counseling has elected to proceed with surgical treatment. The patient was counseled that with surgical treatment there is the possibility that their condition might not improve or may even worsen. No guarantees or warranties were provided regarding the outcome. Specific surgical risks discussed include recurrence, infection, bleeding, post-operative pain, damage to nerves and blood vessels, wound dehiscence and wound healing problems, incomplete relief of pain, the need for physical/occupational therapy, inability to return to their desired level of function, complex regional pain syndrome, as well as medical complications such as anesthetic complications, cardiopulmonary complications and . The patient expressed understanding of all the issues described above and has elected to proceed with the aforementioned procedure. Operative Procedure: In the preoperative holding area, the appropriate surgical site was marked with the patient cognizant. An axillary block was performed by the anesthesiologist in the preop holding area. The patient was identified by the surgical team and a sign-in was performed with all of the pertinent surgical staff including myself, anesthesia and nursing. The patient was then brought to the operating room by the anesthesia team. The patient subsequently was transferred from their bed to the operating table and underwent MAC anesthesia. The patient was then positioned in the supine position and the arm table was attached to the operating room table. All bony prominences were well padded. The operative arm was appropriately identified and prepped. Once the hibiclens prep was completed, the operative extremity was draped in sterile fashion. A surgical time-out was performed. Preoperative antibiotics were verified to have been given within one hour of incision time, prior to incision. The arm was exsanguinated using an Esmarch and the tourniquet was then inflated to 250mmHg. A 5cm transverse incision was made in the skin in the distal palmar crease. The skin was elevated to expose cords going to the long, ring and small fingers. These pretendinous cords were excised while protecting the tendons and neurovascular bundles deep. These were sent to pathology for evaluation. We then performed a Evelyn incision on the ring finger. The spiral cord was carefully dissected while taking care to ensure both the radial and ulnar digital neurovascular bundles were protected. The cord was successfully excised and sent to pathology. The finger was gently manipulated and was able to achieve a neutral position. Next we did a Evelyn incision on the long finger. (more content not included)... [facility] SURGICAL PATHOLOGYon 023 CASE REPORT [facility] Comment on above: Order Comment: Speci men Type: TISSUE SPECIMEN Ordering Facility: [facility] Address: [address] [place] [address] Result Comment: Surg ical Pathology Report Case: [id number] Authorizing Provider: Randall Shah MD, PhD Collected: 06/25/2022 11:20 AM Ordering Location: [facility] Received: 06/25/2022 01:39 PM Operating Room Pathologist: Kenan Turcios Specimens: A) - SOFT TISSUE MASS RESECTION, Right palm mass B) - SOFT TISSUE MASS RESECTION, Right ring finger cord C) - SOFT TISSUE MASS RESECTION, right long finger cord Performed By: #### S #### [facility] [facility] CLIA [id number] [address] [place] [address] CLINICAL HISTORY Normal [facility] Comment on above: Order Comment: Speci men Type: TISSUE SPECIMEN Ordering Facility: [facility] Address: [address] [place] [address] Result Comment: Pre- op diagnosis: Dupuytren's disease of palm [M72.0] Performed By: #### S #### [facility] CLIA [id number] [address] [place] [address] FINAL DIAGNOSIS [facility] Comment on above: Order Comment: Speci men Type: TISSUE SPECIMEN Ordering Facility: [facility] Address: [address] [place] [address] Result Comment: A. S oft tissue, right palm, excision: - Superficial/palmar fibromatosis. B. Soft tissue, right ring finger, excision: - Superficial/palmar fibromatosis. C. Soft tissue, right long finger, excision: - Superficial/palmar fibromatosis. Performed By: #### S #### [facility] CLIA [id number] [address] FINAL PERFORMING LAB [facility] Comment on above: Order Comment: Speci men Type: TISSUE SPECIMEN Ordering Facility: [facility] Address: [address] [id number] Result Comment: Diag nostic interpretation performed at [facility], [address] [place] [address] CLIA# [id number] Rn Document Improvement Specialist: Gaurav Hall M.D. Performed By: #### S #### [facility] CLIA [id number] [address] [place] [address] [place] GROSS DESCRIPTION Normal [facility] Comment on above: Order Comment: Speci men Type: TISSUE SPECIMEN Ordering Facility: [facility] Address: [address] [address] Result Comment: A. S OFT TISSUE MASS RESECTION Received in formalin labeled with soft tissue mass resection, right palm mass is a single fragment of vazquez-pink, rubbery fibrous tissue measuring 2.3 x 1.2 x 0.6 cm. The specimen is sectioned to reveal diffusely fibrous, unremarkable cut surfaces. There are no areas of induration or nodularity present. The specimen is trisected and totally submitted in cassette A1. B. SOFT TISSUE MASS RESECTION Received in formalin labeled with soft tissue mass resection, right ring finger cord is a single fragment of vazquez-yellow rubbery soft tissue measuring 1.6 x 1.3 x 0.8 cm. Serial sectioning reveals solid, fibrous cut surfaces with no areas of induration or nodularity present. The specimen is totally submitted in cassette B1. C. SOFT TISSUE MASS RESECTION Received in formalin labeled with soft tissue mass resection, right long finger cord is a single fragment of vazquez-yellow rubbery soft tissue measuring 1.6 x 0.8 x 0.4 cm. The specimen is bisected to reveal solid, fibrous cut surfaces with no areas of induration or nodularity present. The specimen is totally submitted in cassette C1. TLA June 25, 2022 5:39 PM Gross examination performed at [facility], [address] [place] [address] Performed By: #### S #### [facility] CLIA [id number] [address] [place] [address] [place] URINE CULTUREon 05-02-2022 Bacteria identified Cx Nom (U) No growth (<1,000 CFU/ml) [facility] CBC W Auto Differential pane l (Bld)on 05-01-2022 Basophils (Bld) [#/Vol] 0.08 10*3/uL <0.11 k/uL [facility] Basophils/100 WBC (Bld) 0.7 % [facility] Differential cell count method Nom (Bld) Auto [facility] Eosinophils (Bld) [#/Vol] 0.18 10*3/uL <0.46 k/uL [facility] Eosinophils/100 WBC (Bld) 1.6 % [facility] Erythrocyte distribution width (RBC) [Ratio] 19.4 % High 11.5 - 15.0 % [facility] Hematocrit (Bld) [Volume fraction] 53.3 % High 39.0 - 51.0 % [facility] Hemoglobin (Bld) [Mass/Vol] 16.5 g/dL 13.0 - 17.0 g/dL [facility] Immature granulocytes (Bld) [#/Vol] 0.03 10*3/uL <0.10 k/uL [facility] Immature granulocytes/100 WBC (Bld) 0.3 % [facility] Lymphocytes (Bld) [#/Vol] 3.00 10*3/uL 1.00 - 4.00 k/uL [facility] Lymphocytes/100 WBC (Bld) 26.3 % [facility] MCH (RBC) [Entitic mass] 27.7 pg 26.0 - 34.0 pg [facility] MCHC (RBC) [Mass/Vol] 31.0 g/dL 30.5 - 36.0 g/dL [facility] MCV (RBC) [Entitic vol] 89.4 fL 80.0 - 100.0 fL [facility] Monocytes (Bld) [#/Vol] 0.51 10*3/uL <0.87 k/uL [facility] Monocytes/100 WBC (Bld) 4.5 % [facility] Neutrophils (Bld) [#/Vol] 7.62 10*3/uL High 1.45 - 7.50 k/uL [facility] Neutrophils/100 WBC (Bld) 66.6 % [facility] Nucleated RBC (Bld) [#/Vol] <0.01 k/uL [facility] Nucleated RBC/100 WBC (Bld) [Ratio] 0.0 /100 WBC [facility] Platelet mean volume (Bld) [Entitic vol] 9.5 fL 9.0 - 12.7 fL [facility] Platelets (Bld) [#/Vol] 349 10*3/uL 150 - 400 k/uL [facility] RBC (Bld) [#/Vol] 5.96 10*6/uL 4.20 - 6.0 0 m/uL [facility] WBC (Bld) [#/Vol] 11.42 10*3/uL High 3.70 - 11 .00 k/uL [facility] Urinalysis complete panel (U )on 05-01-2022 Bilirubin Ql (U) Negative Negative [facility] Clarity (Unsp spec) Clear Clear [facility] Color (U) Yellow Yellow [facility] Glucose Test strip (U) [Mass/Vol] Negative Trace, Negative [facility] Hemoglobin Ql (U) Negative Negative, Trace [facility] Ketones Ql (U) Negative Trace, Negative [facility] Leukocyte esterase Test strip Ql (U) Negative Negative, 25 Kedar/mL [facility] Nitrite Ql (U) Negative Negative [facility] pH (U) 6.0 [pH] 5.0 - 8.0 [facility] Protein (U) [Mass/Vol] 1+ Abnormal Trace, Negative [facility] RBC LM.HPF (Urine sed) [#/Area] 0-3 /HPF 0-3 /HPF [facility] Specific gravity (U) [Rel density] 1.033 High 1.005 - 1.030 [facility] Urobilinogen Ql (U) 1+ Abnormal Negative [facility] WBC LM.HPF (Urine sed) [#/Area] 0-5 /HPF 0-5 /HPF [facility] Absolute lymphocyte counton 01-17-2022 Lymphocytes Auto (Unsp spec) [#/Vol] 2.63 10*3/uL 0.83-4.51 [facility] Work Phone: Basophil percentageon 2021 Basophil percentage 0-5 SEEN /hpf 0-5 [facility] Work Phone: Basophils/100 WBC (Bld) 0.4 % 0-1 [facility] Work Phone: Chloride [Moles/Vol] 106 mmol/L 98-107 [facility] Work Phone: Eosinophils/100 WBC (Bld) 1.0 % 0-5 [facility] Work Phone: Glucose [Mass/Vol] 96 mg/dL 74-106 [facility] Work Phone: Neutrophils (Bld) [#/Vol] 10.5 10*3/uL 2.0-7.7 [facility] Work Phone: Neutrophils/100 WBC (Bld) 75.0 % 47-70 [facility] Work Phone: Potassium [Moles/Vol] 3.7 mmol/L 3.5-5.1 [facility] Work Phone: Sodium [Moles/Vol] 141 mmol/L 136-145 [facility] Work Phone: WBC (Bld) [#/Vol] 14.0 10*3/uL 4.4-11.0 [facility] Work Phone: Bilirubin Test strip Ql (U)o n 01-17-2022 Bilirubin Ql (U) Negative Negative [facility] Work Phone: Blood erythrocytes count (nu mber/volume)on 01-17-2022 RBC (Bld) [#/Vol] 6.11 10*6/uL 4.6-6.2 [facility] Work Phone: Blood hemoglobin measurement (mass/volume)on 01-17-2022 Hemoglobin (Bld) [Mass/Vol] 15.7 g/dL 13.0-16.5 [facility] Work Phone: [phone] Blood lymphocytes/100 leukoc yteson 01-17-2022 Lymphocytes/100 WBC (Bld) 18.8 % 19-41 [facility] Work Phone: Blood manual differential co mment interpretation (narrative result)on 01-17-2022 Manual differential comment Oliver (Bld) [Interp] SCANNED [facility] Work Phone: Blood monocytes/100 leukocyt eson 01-17-2022 Monocytes/100 WBC (Bld) 4.5 % 0-10 [facility] Work Phone: Blood platelet mean volumeon 01-17-2022 Platelet mean volume (Bld) [Entitic vol] 8.9 fL 6.2-12.0 [facility] Work Phone: Determination of erythrocyte mean corpuscular volume (MCV)on 01-17-2022 MCV (RBC) [Entitic vol] 84.3 fL 80-94 [facility] Work Phone: Hematocrit Auto (Bld) [Volum e fraction]on 01-17-2022 Hematocrit (Bld) [Volume fraction] 51.5 % 40-54 [facility] Work Phone: Ketones Test strip Ql (U)on 01-17-2022 Ketones Ql (U) Negative Negative [facility] Work Phone: Laboratory - Chemistry and C hemistry - challengeon 01-17-2022 CO2 [Moles/Vol] 27.0 mmol/L 21.0-32.0 [facility] Work Phone: Urea nitrogen/Creatinine [Mass ratio] 12.1 mg/mg 10-20 [facility] Work Phone: Laboratory - Hematology and Cell countson 01-17-2022 Anisocytosis Ql (Bld) 1+ [facility] Work Phone: Erythrocyte distribution width (RBC) [Entitic vol] 66.1 fL 35.1-43.9 [facility] Work Phone: Erythrocyte distribution width (RBC) [Ratio] 22.6 % 11.6-14.6 [facility] Work Phone: Immature granulocytes/100 WBC (Bld) 0.300 % 0.0-0.9 [facility] Work Phone: Comment on above: IG% - Immature Granu locytes (promyelocytes, myelocytes and metamyelocytes) > 1% indicates that a LEFT SHIFT is Present. MCH (RBC) [Entitic mass] 25.7 pg 27.0-32.0 [facility] Work Phone: Nucleated RBC/100 WBC (Bld) [Ratio] 0 % 0-5 [facility] Work Phone: MCHC Auto (RBC) [Mass/Vol]on 01-17-2022 MCHC (RBC) [Mass/Vol] 30.5 g/dL 32-36 [facility] Work Phone: Mucus LM Ql (Urine sed)on Mucus Ql (Urine sed) 0 SEEN /hpf [facility] Work Phone: Nitrite Test strip Ql (U)on 01-17-2022 Nitrite Ql (U) Negative Negative [facility] Work Phone: No Panel Informationon 01-17 Estimated Creatinine Clearance Calc 105.05 ml/min [facility] Work Phone: Estimated GFR (MDRD) Amer 122 mL/min >60 [facility] Work Phone: Comment on above: GFR Calc Estimated GFR (MDRD) Non-Af Amer 101 mL/min >60 [facility] Work Phone: Comment on above: Non- GFR Calc Platelets bldon 01-17-2022 Platelets (Bld) [#/Vol] 296 10*3/uL 150-450 [facility] Work Phone: Protein Test strip Ql (U)on 01-17-2022 Protein Ql (U) Negative Negative [facility] Work Phone: Serum or plasma calcium stella urement (mass/volume)on 01-17-2022 Calcium [Mass/Vol] 8.7 mg/dL 8.5-10.1 [facility] Work Phone: Serum or plasma creatinine m easurement (mass/volume)on 01-17-2022 Creatinine [Mass/Vol] 0.83 mg/dL 0.70-1.30 [facility] Work Phone: Comment on above: The validity of the calculated GFR & GFRAA in patients over 70 years has not been determined. Clinical correlation is essential. Serum or plasma urea nitroge n measurement (mass/volume)on 01-17-2022 Urea nitrogen [Mass/Vol] 10 mg/dL 7-18 [facility] Work Phone: Squamous epithelial cells de tection in urine sediment by light microscopyon 01-17-2022 Epithelial cells.squamous LM Ql (Urine sed) 0 SEEN /hpf 0-5 [facility] Work Phone: Thin prep Papanicolaou smear with manual screeningon 01-17-2022 Thin prep Papanicolaou smear with manual screening 8 5-15 [facility] Work Phone: Urine blood detectionon 01-01 RBC Ql (U) 10 /ul Negative [facility] Work Phone: RBC Ql (U) 0 SEEN /hpf 0-5 [facility] Work Phone: Urine clarityon 01-17-2022 Clarity (U) Clear Clear [facility] Work Phone: Urine color determinationon 01-17-2022 Color (U) Yellow Yellow [facility] Work Phone: Urine glucose detectionon Glucose Ql (U) Normal mg/dl Normal [facility] Work Phone: Urine leukocyte esterase det ection by dipstickon 01-17-2022 Leukocyte esterase Test strip Ql (U) 25 /ul Negative [facility] Work Phone: Urine pHon 01-17-2022 pH (U) 6.0 [pH] 5.0 - 8.0 [facility] Work Phone: Urine sediment bacteria coun t by microscopy (number/high power field)on 01-17-2022 Bacteria LM.HPF (Urine sed) [#/Area] 0 /[HPF] None Seen [facility] Work Phone: Urine specific gravity measu rementon 01-17-2022 Specific gravity (U) [Rel density] 1.015 1.002-1.030 [facility] Work Phone: Urobilinogen Auto test strip Ql (U)on 01-17-2022 Urobilinogen Ql (U) Normal mg/dl Normal [facility] Work Phone: No Panel Informationon 12-04 Hepatitis B Surface Antigen Non-Reactive Nonreactive [facility] Work Phone: Hepatitis C Antibody Non-Reactive Nonreactive [facility] Work Phone: Comment on above: Non Reactive: < 0.8 Equivocal: >/= 0.8 to < 1.0 Reactive: >/= 1.0The [facility] recommends that a reactive/equivocal HCV antibody result be followed up by the HCV Nucleic Acid Amplificationtest (513549) Qualitative QuantiFERON-TB g old in tube teston 12-04-2021 M. tuberculosis tuberculin stim IFN-g Ql (Bld) 0.02 IU/mL . [facility] Work Phone: Serum hepatitis B virus core antibody detectionon 12-04-2021 HBV core Ab Ql (S) Negative Negative [facility] Work Phone: Comment on above: Performed at: [place] [id number] Director: Lopez John PhD, Phone: [phone] Serum hepatitis B virus surf manuel antibody IgG detectionon 12-04-2021 HBV surface IgG Ql (S) Non-Reactive [facility] Work Phone: Comment on above: Non Reactive: Incons istent with immunity less than <10 mIU/mL Reactive: Consistent with immunity greater than or equal to 10 mIU/mL Thin prep Papanicolaou smear with manual screeningon 12-04-2021 Thin prep Papanicolaou smear with manual screening Comment . [facility] Work Phone: Comment on above: QuantiFERON-TB Gold Plus is a qualitative indirect test forM tuberculosis infection (including disease) and isintended for use in conjunction with risk assessment,radiography, and other medical and diagnostic evaluations.The QuantiFERON-TB Gold Plus result is determined bysubtracting the Nil value from either TB antigen (Ag)value. The Mitogen tube serves as a control for the test. Thin prep Papanicolaou smear with manual screening 0.02 IU/mL . [facility] Work Phone: Thin prep Papanicolaou smear with manual screening 0 IU/mL . [facility] Work Phone: Thin prep Papanicolaou smear with manual screening > 10.00 IU/mL . [facility] Work Phone: Thin prep Papanicolaou smear with manual screening Negative Negative [facility] Work Phone: Comment on above: No response to M tub erculosis antigens detected.Infection with M tuberculosis is unlikely, but high riskindividuals should be considered for additional testing(ATS/IDSA/CDC Clinical Practice Guidelines, 2017). Thereference range is an Antigen minus Nil result of <0.35IU/mL.The specimen received for QuantiFERON testing was incubatedby the ordering institution. Specific procedures outlinedin our Directory of Services and in the package insert forthe QuantiFERON Gold (In Tube) test must be followed toenable for proper stimulation of cells for the productionof interferon gamma. Chemiluminescence immunoassaymethodology MRI BRAIN W/ + W/O CONTRASTo n 11-07-2021 MRI BRAIN W/ + W/O CONTRAST ORIGINAL EXAMINATION: MRI OF THE BRAIN WITHOUT AND WITH CONTRAST 11/06/2021 3:32 pm TECHNIQUE: Multiplanar multisequence MRI of the head/brain was performed without and with the administration of intravenous contrast. COMPARISON: None. HISTORY: ORDERING SYSTEM PROVIDED HISTORY: Reason for Exam: DIZZINES FINDINGS: INTRACRANIAL STRUCTURES/VENTRICLES: There is no acute infarct. No mass effect or midline shift. No evidence of an acute intracranial hemorrhage. The ventricles and sulci are normal in size and configuration. The sellar/suprasellar regions appear unremarkable. The normal signal voids within the major intracranial vessels appear maintained. No abnormal focus of enhancement is seen within the brain. There is a focus of susceptibility artifact in the high right frontal lobe with a minimal rim of T1 hyperintensity and probable minimal rim of T2 hypointensity inferiorly suggestive of a cavernous malformation ORBITS: The visualized portion of the orbits demonstrate no acute abnormality. SINUSES: The visualized paranasal sinuses and mastoid air cells demonstrate no acute abnormality. BONES/SOFT TISSUES: The bone marrow signal intensity appears normal. The soft tissues demonstrate no acute abnormality. 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 Interpreted by: Inez Queen MD Preliminary Report By: Inez Queen MD Electronically signed By Inez Queen MD Dictated Date: 11/07/2021 8:59:12 AM Prelim Date: 11/07/2021 9:10:00 AM Sign Date: 11/07/2021 9:10:00 AM Ordering Provider: GERRY OLSON [facility] (MD) Absolute lymphocyte counton 09-16-2021 Lymphocytes Auto (Unsp spec) [#/Vol] 2.68 10*3/uL 0.83-4.51 [facility] Work Phone: Basophil percentageon 2021 Basophil percentage 0 SEEN /hpf 0-5 [facility] Work Phone: Basophils/100 WBC (Bld) 0.7 % 0-1 [facility] Work Phone: [phone] Bilirubin [Mass/Vol] 0.60 mg/dL 0.20-1.00 [facility] Work Phone: Comment on above: For patients on eltr ombopag therapy, use of Dimension [place] TBIL is not recommended. Chloride [Moles/Vol] 102 mmol/L 98-107 [facility] Work Phone: Eosinophils/100 WBC (Bld) 1.0 % 0-5 [facility] Work Phone: Glucose [Mass/Vol] 103 mg/dL 74-106 [facility] Work Phone: Comment on above: Fasting Glucose resu lt from 100 to 125 mg/dL suggests IMPAIRED HOMEOSTASIS per A.D.A. criteria. Neutrophils (Bld) [#/Vol] 7.2 10*3/uL 2.0-7.7 [facility] Work Phone: Neutrophils/100 WBC (Bld) 67.2 % 47-70 [facility] Work Phone: Potassium [Moles/Vol] 4.4 mmol/L 3.5-5.1 [facility] Work Phone: Comment on above: Slight Hemolysis, Re sult may be falsely increased. Protein [Mass/Vol] 8.2 g/dL 6.4-8.2 [facility] Work Phone: Sodium [Moles/Vol] 135 mmol/L 136-145 [facility] Work Phone: WBC (Bld) [#/Vol] 10.6 10*3/uL 4.4-11.0 [facility] Work Phone: Bilirubin Test strip Ql (U)o n 09-16-2021 Bilirubin Ql (U) Negative Negative [facility] Work Phone: Blood erythrocytes count (nu mber/volume)on 09-16-2021 RBC (Bld) [#/Vol] 6.92 10*6/uL 4.6-6.2 [facility] Work Phone: Blood hemoglobin measurement (mass/volume)on 09-16-2021 Hemoglobin (Bld) [Mass/Vol] 16.0 g/dL 13.0-16.5 [facility] Work Phone: Blood lymphocytes/100 leukoc yteson 09-16-2021 Lymphocytes/100 WBC (Bld) 25.2 % 19-41 [facility] Work Phone: Blood manual differential co mment interpretation (narrative result)on 09-16-2021 Manual differential comment Oliver (Bld) [Interp] SCANNED [facility] Work Phone: Blood monocytes/100 leukocyt eson 09-16-2021 Monocytes/100 WBC (Bld) 5.5 % 0-10 [facility] Work Phone: Blood platelet mean volumeon 09-16-2021 Platelet mean volume (Bld) [Entitic vol] 9.5 fL 6.2-12.0 [facility] Work Phone: Determination of erythrocyte mean corpuscular volume (MCV)on 09-16-2021 MCV (RBC) [Entitic vol] 77.0 fL 80-94 [facility] Work Phone: Hematocrit Auto (Bld) [Volum e fraction]on 09-16-2021 Hematocrit (Bld) [Volume fraction] 53.3 % 40-54 [facility] Work Phone: Ketones Test strip Ql (U)on 09-16-2021 Ketones Ql (U) Negative Negative [facility] Work Phone: Laboratory - Chemistry and C hemistry - challengeon 09-16-2021 ALP [Catalytic activity/Vol] 102 U/L 45-117 [facility] Work Phone: ALT [Catalytic activity/Vol] 30 U/L 16-61 [facility] Work Phone: CO2 [Moles/Vol] 27.0 mmol/L 21.0-32.0 [facility] Work Phone: Globulin (S) [Mass/Vol] 4.4 g/dL 2.2-4.2 [facility] Work Phone: Urea nitrogen/Creatinine [Mass ratio] 14.2 mg/mg 10-20 [facility] Work Phone: Laboratory - Hematology and Cell countson 09-16-2021 Erythrocyte distribution width (RBC) [Entitic vol] 55.3 fL 35.1-43.9 [facility] Work Phone: Erythrocyte distribution width (RBC) [Ratio] 21.7 % 11.6-14.6 [facility] Work Phone: Immature granulocytes/100 WBC (Bld) 0.400 % 0.0-0.9 [facility] Work Phone: Comment on above: IG% - Immature Granu locytes (promyelocytes, myelocytes and metamyelocytes) > 1% indicates that a LEFT SHIFT is Present. MCH (RBC) [Entitic mass] 23.1 pg 27.0-32.0 [facility] Work Phone: [phone] Nucleated RBC/100 WBC (Bld) [Ratio] 0 % 0-5 [facility] Work Phone: MCHC Auto (RBC) [Mass/Vol]on 09-16-2021 MCHC (RBC) [Mass/Vol] 30.0 g/dL 32-36 [facility] Work Phone: Mucus LM Ql (Urine sed)on Mucus Ql (Urine sed) 0 SEEN /hpf [facility] Work Phone: Nitrite Test strip Ql (U)on 09-16-2021 Nitrite Ql (U) Negative Negative [facility] Work Phone: No Panel Informationon 09-16 Estimated Creatinine Clearance Calc 105.70 ml/min [facility] Work Phone: Estimated GFR (MDRD) Amer 120 mL/min >60 [facility] Work Phone: Comment on above: GFR Calc Estimated GFR (MDRD) Non-Af Amer 99 mL/min >60 [facility] Work Phone: Comment on above: Non- GFR Calc Troponin I High Sensitivity < 3 pg/mL 3.0-78.0 [facility] Work Phone: Comment on above: Please Note: New Vicki t Units and Gender Specific Reference Ranges. For more information see Policy Stat Procedure [place] High Sensitivity Troponin (TNIH) and attachments. Platelets bldon 09-16-2021 Platelets (Bld) [#/Vol] 352 10*3/uL 150-450 [facility] Work Phone: Protein Test strip Ql (U)on 09-16-2021 Protein Ql (U) Negative Negative [facility] Work Phone: Serum or plasma albumin stella urement (mass/volume)on 09-16-2021 Albumin [Mass/Vol] 3.8 g/dL 3.2-5.0 [facility] Work Phone: Serum or plasma albumin/glob ulin mass ratioon 09-16-2021 Albumin/Globulin [Mass ratio] 0.9 {ratio} 0.9-2.4 [facility] Work Phone: Serum or plasma calcium stella urement (mass/volume)on 09-16-2021 Calcium [Mass/Vol] 9.2 mg/dL 8.5-10.1 [facility] Work Phone: Serum or plasma creatinine m easurement (mass/volume)on 09-16-2021 Creatinine [Mass/Vol] 0.84 mg/dL 0.70-1.30 [facility] Work Phone: Comment on above: The validity of the calculated GFR & GFRAA in patients over 70 years has not been determined. Clinical correlation is essential. Serum or plasma urea nitroge n measurement (mass/volume)on 09-16-2021 Urea nitrogen [Mass/Vol] 12 mg/dL 7-18 [facility] Work Phone: Squamous epithelial cells de tection in urine sediment by light microscopyon 09-16-2021 Epithelial cells.squamous LM Ql (Urine sed) 0 SEEN /hpf 0-5 [facility] Work Phone: Thin prep Papanicolaou smear with manual screeningon 09-16-2021 Thin prep Papanicolaou smear with manual screening 22 U/L 15-37 [facility] Work Phone: Comment on above: Slight Hemolysis, Re sult may be falsely increased. Thin prep Papanicolaou smear with manual screening 6 5-15 [facility] Work Phone: Urine blood detectionon 08-31 RBC Ql (U) Negative Negative [facility] Work Phone: RBC Ql (U) 0 SEEN /hpf 0-5 [facility] Work Phone: Urine clarityon 09-16-2021 Clarity (U) Clear Clear [facility] Work Phone: Urine color determinationon 09-16-2021 Color (U) Yellow Yellow [facility] Work Phone: Urine glucose detectionon Glucose Ql (U) Normal mg/dl Normal [facility] Work Phone: Urine leukocyte esterase det ection by dipstickon 09-16-2021 Leukocyte esterase Test strip Ql (U) Negative Negative [facility] Work Phone: Urine pHon 09-16-2021 pH (U) 6.5 [pH] 5.0 - 8.0 [facility] Work Phone: Urine sediment bacteria coun t by microscopy (number/high power field)on 09-16-2021 Bacteria LM.HPF (Urine sed) [#/Area] RARE /hpf None Seen [facility] Work Phone: Urine specific gravity measu rementon 09-16-2021 Specific gravity (U) [Rel density] 1.010 1.002-1.030 [facility] Work Phone: Urobilinogen Auto test strip Ql (U)on 09-16-2021 Urobilinogen Ql (U) Normal mg/dl Normal [facility] Work Phone: XR Ribs - left Views and Maric[address] st PAon 07-22-2021 IMPRESSION: No radiographic evidence of left displaced rib fracture. Bartacker: ANNALISE Transcribe Date/Time: Jul 22 2021 2:30P Dictated by : MICHELL REEDER MD This examination was interpreted and the report reviewed and electronically signed by: MICHELL REEDER MD on Jul 22 2021 2:31PM [facility] DIVISION OF RADIOLOGY * * *Final Report* * * DATE OF EXAM: Jul 22 2021 2:10PM WOX 5243 - XR RIB/CHST 3V AP RIB/OBL/CHST L / PROCEDURE REASON: Rib pain on left side * * * * Physician Interpretation * * * * CLINICAL INDICATION: Left rib pain TECHNIQUE: 3 view left-sided radiographic rib series with inclusion of a single frontal view of the chest for purposes of comparison/symmetry. COMPARISON: Correlation made to chest x-ray dated February 15, 2018 FINDINGS: No acute displaced left rib fracture identified. Stable cardiomediastinal silhouette. No focal consolidation. No discernible pleural effusion or pneumothorax. DIVISION OF RADIOLOGY Provider, [facility] - 07/22/2021 * * *Final Report* * * DATE OF EXAM: Jul 22 2021 2:10PM WOX 5243 - XR RIB/CHST 3V AP RIB/OBL/CHST L / PROCEDURE REASON: Rib pain on left side * * * * Physician Interpretation * * * * CLINICAL INDICATION: Left rib pain TECHNIQUE: 3 view left-sided radiographic rib series with inclusion of a single frontal view of the chest for purposes of comparison/symmetry. COMPARISON: Correlation made to chest x-ray dated February 15, 2018 FINDINGS: No acute displaced left rib fracture identified. Stable cardiomediastinal silhouette. No focal consolidation. No discernible pleural effusion or pneumothorax. IMPRESSION IMPRESSION: No radiographic evidence of left displaced rib fracture. Bartacker: ANNALISE Transcribe Date/Time: Jul 22 2021 2:30P Dictated by : MICHELL REEDER MD This examination was interpreted and the report reviewed and electronically signed by: MICHELL REEDER MD on Jul 22 2021 2:31PM EST [facility] Radiology Study observation (narrative) [facility] XR Ribs - left Views and Maricruz st PAOrdered By: Ccf Provider on 07-22-[address] [facility] [address] Chest for screening WO co ntraston 06-24-2021 IMPRESSION: LungRADS category: 2 LungRADS modifier: None LungRADS 0 reason: n/a Recommendations: Continue annual screening with LDCT in 12 months. Other actionable findings: None Reference: [employer]. Lung CT Screening Reporting and Data System (Lung-RADS). Available at: http://www.acr.org/Quality- Safety/Resources/LungRADS Bartacker: ANNALISE Transcribe Date/Time: Jun 24 2021 1:17P Dictated by : ANA REYES MD This examination was interpreted and the report reviewed and electronically signed by: ANA REYES MD on Jun 24 2021 1:41PM [facility] DIVISION OF RADIOLOGY * * *Final Report* * * DATE OF EXAM: Jun 24 2021 11:33AM [facility] 0562 - CT LUNG SCREEN WO IVCON / PROCEDURE REASON: Tobacco use * * * * Physician Interpretation * * * * EXAMINATION: CHEST CT WITHOUT CONTRAST (LOW-DOSE CT LUNG CANCER SCREENING PROTOCOL) CLINICAL HISTORY: Lung cancer LDCT screening ? absence of signs or symptoms of lung cancer. Nicotine dependence (cigarettes). Subsequent (annual) Technique: Spiral CT acquisition of the chest from the thoracic inlet to the upper abdomen without contrast. MQ: CTLCS_6 Patient characteristics: * Lkyg-pa-Zuinn: 1960; Age at exam: 60 years * Gender: Male * Lung Disease: Asymptomatic (no signs or symptoms of lung disease) * Number of Pack Years: 39 * Current smoker (=0) or Number of Years since Quit: 0 * Ordering provider and NPI: NANCI RED [id number] * Interpreting radiologist and NPI: Rene [id number] Exam acquisition parameters: * Exam Date: 06/24/2021 11:33 AM * Site: [facility] * * CT System Physicist Astrophysics: LeanKit * CT System Model: ZapMe * Tube Current-Time (mA-sec): 32.5 * Peak Voltage (kV): 120V * Scan Time (sec): 4.62 * Scan Volume (z-length, cm): 31.70 * Pitch: 0.984 * Slice Thickness (mm): 1.25 * CT Dose-Length Product: 101.44 mGy*cm * CT Dose Index: 2.88mGy * CT Dose Reduction Method: Iterative recon and mAs-kVp adjusted using patient size-age COMPARISON: CT lung screen dated 04/24/2020 RESULT: Are nodules present? Yes, 1-5 nodules If No, go to IMPRESSION. If yes, proceed with characterization of the FIVE largest nodules. Nodule 1: This Solid nodule is located in the Right Upper Lobe on slice number 87 with an average diameter of 2.6 mm. Stable compared to the exam dated 04/24/2020 Nodule 2: This Solid nodule is located in the Right Upper Lobe on slice number 135 with an average diameter of 2.4 mm. Stable compared to the exam dated 04/24/2020 Nodule 3: This Solid nodule is located in the Right Upper Lobe on slice number 85 with an average diameter of 2.1 mm. Stable compared to the exam dated 04/24/2020 If this is an ANNUAL LDCT for LCS, please ensure nodule number is the same as in the prior evaluation. Other lung nodule comments: None Other findings: The trachea and central airways appear patent and devoid of endobronchial lesion. There are mild, upper lobe predominant paraseptal emphysematous changes. No dominant bulla is identified. There is associated mild bilateral bronchial wall thickening, consistent with chronic airways inflammation. The lungs are clear of focal consolidation. No pleural effusion or pneumothorax is identified. Mild heterogeneous attenuation of both thyroid lobes is again noted. No supraclavicular lymphadenopathy is identified. No region of kilo intrathoracic lymphadenopathy has developed. Borderline enlarged and subcentimeter lymph nodes remain scattered in the mediastinum including the bilateral paratracheal and subcarinal regions and the AP window, stable since prior exam. The esophagus appears non-dilated. There is ectasia of the ascending thoracic aorta which measures 41 x 40 mm in maximum transverse diameter. There are atherosclerotic calcifications of the thoracic aorta. There is a common origin of the brachiocephalic and left common carotid arteries, a normal anatomic variant. The main and central pulmonary arteries are at the upper limits of normal in diameter. The main pulmonary measures 29 mm in maximum transverse diameter. The overall heart size is within normal limits. There is no pericardial effusion. Visualized portions of the upper abdomen disclose no acute process. The vertebral body heights appear symmetric and well-maintained. No lytic or destructive osseous lesion is identified. The soft tissues of the chest wall appear unremarkable. Emphysema: Mild (5-25%), Paraseptal, Upper lobe Coronary Artery Calcifications: Circumflex None; Left Anterior Descending Minimum; Right Coronary None Firefighter (topogram) images: No additional findings. DIVISION OF RADIOLOGY Provider, [facility] - 06/24/2021 * * *Final Report* * * DATE OF EXAM: Jun 24 2021 11:33AM [facility] 0562 - CT LUNG SCREEN WO IVCON / PROCEDURE REASON: Tobacco use * * * * Physician Interpretation * * * * EXAMINATION: CHEST CT WITHOUT CONTRAST (LOW-DOSE CT LUNG CANCER SCREENING PROTOCOL) CLINICAL HISTORY: Lung cancer LDCT screening ? absence of signs or symptoms of lung cancer. Nicotine dependence (cigarettes). Subsequent (annual) Technique: Spiral CT acquisition of the chest from the thoracic inlet to the upper abdomen without contrast. MQ: CTLCS_6 Patient characteristics: * Xhmh-bq-Bnily: 1960; Age at exam: 60 years * Gender: Male * Lung Disease: Asymptomatic (no signs or symptoms of lung disease) * Number of Pack Years: 39 * Current smoker (=0) or Number of Years since Quit: 0 * Ordering provider and NPI: NANCI RED [id number] * Interpreting radiologist and NPI: Rene [id number] Exam acquisition parameters: * Exam Date: 06/24/2021 11:33 AM * Site: [facility] * * CT System Physicist Astrophysics: LeanKit * CT System Model: ZapMe * Tube Current-Time (mA-sec): 32.5 * Peak Voltage (kV): 120V * Scan Time (sec): 4.62 * Scan Volume (z-length, cm): 31.70 * Pitch: 0.984 * Slice Thickness (mm): 1.25 * CT Dose-Length Product: 101.44 mGy*cm * CT Dose Index: 2.88mGy * CT Dose Reduction Method: Iterative recon and mAs-kVp adjusted using patient size-age COMPARISON: CT lung screen dated 04/24/2020 RESULT: Are nodules present? Yes, 1-5 nodules If No, go to IMPRESSION. If yes, proceed with characterization of the FIVE largest nodules. Nodule 1: This Solid nodule is located in the Right Upper Lobe on slice number 87 with an average diameter of 2.6 mm. Stable compared to the exam dated 04/24/2020 Nodule 2: This Solid nodule is located in the Right Upper Lobe on slice number 135 with an average diameter of 2.4 mm. Stable compared to the exam dated 04/24/2020 Nodule 3: This Solid nodule is located in the Right Upper Lobe on slice number 85 with an average diameter of 2.1 mm. Stable compared to the exam dated 04/24/2020 If this is an ANNUAL LDCT for LCS, please ensure nodule number is the same as in the prior evaluation. Other lung nodule comments: None Other findings: The trachea and central airways appear patent and devoid of endobronchial lesion. There are mild, upper lobe predominant paraseptal emphysematous changes. No dominant bulla is identified. There is associated mild bilateral bronchial wall thickening, consistent with chronic airways inflammation. The lungs are clear of focal consolidation. No pleural effusion or pneumothorax is identified. Mild heterogeneous attenuation of both thyroid lobes is again noted. No supraclavicular lymphadenopathy is identified. No region of kilo intrathoracic lymphadenopathy has developed. Borderline enlarged and subcentimeter lymph nodes remain scattered in the mediastinum including the bilateral paratracheal and subcarinal regions and the AP window, stable since prior exam. The esophagus appears non-dilated. There is ectasia of the ascending thoracic aorta which measures 41 x 40 mm in maximum transverse diameter. There are atherosclerotic calcifications of the thoracic aorta. There is a common origin of the brachiocephalic and left common carotid arteries, a normal anatomic variant. The main and central pulmonary arteries are at the upper limits of normal in diameter. The main pulmonary measures 29 mm in maximum transverse diameter. The overall heart size is within normal limits. There is no pericardial effusion. Visualized portions of the upper abdomen disclose no acute process. The vertebral body heights appear symmetric and well-maintained. No lytic or destructive osseous lesion is identified. The soft tissues of the chest wall appear unremarkable. Emphysema: Mild (5-25%), Paraseptal, Upper lobe Coronary Artery Calcifications: Circumflex None; Left Anterior Descending Minimum; Right Coronary None Firefighter (topogram) images: No additional findings. IMPRESSION IMPRESSION: LungRADS category: 2 LungRADS modifier: None LungRADS 0 reason: n/a Recommendations: Continue annual screening with LDCT in 12 months. Other actionable findings: None Reference: [employer]. Lung CT Screening Reporting and Data System (Lung-RADS). Available at: http://www.acr.org/Quality- Safety/Resources/LungRADS Bartacker: ANNALISE Transcribe Date/Time: Jun 24 2021 1:17P Dictated by : ANA REYES MD This examination was interpreted and the report reviewed and electronically signed by: ANA REYES MD on Jun 24 2021 1:41PM EST [facility] Radiology Study observation (narrative) [facility] CT Chest for screening WO co ntrastOrdered By: Ccf Provider on 06-24-2021 [facility] TB by QuantiFERONon 02-09-20 19 Interpretation TBNEG Normal [facility] Reference Lab Comment on above: Performed By: #### I NFTBP #### [facility] Immunology [address] [id number] Mitogen minus Nil 7.82 Normal [facility] Reference Lab Comment on above: Performed By: #### I NFTBP #### [facility] [address] [id number] TB NIL 0.05 IU/mL Normal [facility] Reference Lab Comment on above: Performed By: #### I NFTBP #### [facility] Immun[facility] [address] [id number] TB Result NEGAT Normal Negative [facility] Reference Lab Comment on above: Performed By: #### I NFTBP #### [facility] Immunology [address] [phone] TB1 Ag minus Nil 0.00 IU/mL Normal <0.35 [facility] Reference Lab Comment on above: Performed By: #### I NFTBP #### [facility] Immunology [address] [phone] TB2 Ag minus Nil 0.00 IU/mL Normal <0.35 [facility] Reference Lab Comment on above: Performed By: #### I NFTBP #### [facility] Immunology [address] [phone] Basic Metabolic Panlon 02-02 Anion gap [Moles/Vol] 16 mmol/L Normal 9-18 [facility] Reference Lab Comment on above: Performed By: #### C BCDIF, BMP, HFP, LDLDCT, LIPB, AHBCOT, HBSAG, AHBSAG, AHCV #### [facility] Routine Lab [address] [address] Calcium [Mass/Vol] 9.1 mg/dL Normal 8.5-10.2 [facility] Reference Lab Comment on above: Performed By: #### C BCDIF, BMP, HFP, LDLDCT, LIPB, AHBCOT, HBSAG, AHBSAG, AHCV #### [facility] Routine Lab [address] [place] [address] Chloride [Moles/Vol] 103 mmol/L Normal 97-105 [facility] Reference Lab Comment on above: Performed By: #### C BCDIF, BMP, HFP, LDLDCT, LIPB, AHBCOT, HBSAG, AHBSAG, AHCV #### [facility] Routine Lab [address] [place] [address] CO2 [Moles/Vol] 23 mmol/L Normal 22-30 [facility] Reference Lab Comment on above: Performed By: #### C BCDIF, BMP, HFP, LDLDCT, LIPB, AHBCOT, HBSAG, AHBSAG, AHCV #### [facility] Routine Lab [address] [place] [address] Creatinine [Mass/Vol] 0.92 mg/dL Normal 0.73-1.22 [facility] Reference Lab Comment on above: Performed By: #### C BCDIF, BMP, HFP, LDLDCT, LIPB, AHBCOT, HBSAG, AHBSAG, AHCV #### [facility] Routine Lab [address] [address] eGFR- Amer. >60 Normal [facility] Reference Lab Comment on above: Performed By: #### C BCDIF, BMP, HFP, LDLDCT, LIPB, AHBCOT, HBSAG, AHBSAG, AHCV #### [facility] Routine Lab [address] [place] [address] GFR/1.73 sq M predicted among non-blacks MDRD (S/P/Bld) [Vol rate/Area] mL/min/{1.73_m2} Normal [facility] Reference Lab Comment on above: Performed By: #### C BCDIF, BMP, HFP, LDLDCT, LIPB, AHBCOT, HBSAG, AHBSAG, AHCV #### [facility] Routine Lab [address] [place], [place] [address] Glucose [Mass/Vol] 89 mg/dL Normal 74-99 [facility] Reference Lab Comment on above: Performed By: #### C BCDIF, BMP, HFP, LDLDCT, LIPB, AHBCOT, HBSAG, AHBSAG, AHCV #### [facility] Routine Lab [address] [address] Potassium [Moles/Vol] 4.3 mmol/L Normal 3.7-5.1 [facility] Reference Lab Comment on above: Performed By: #### C BCDIF, BMP, HFP, LDLDCT, LIPB, AHBCOT, HBSAG, AHBSAG, AHCV #### [facility] Routine Lab [address] [address] Sodium [Moles/Vol] 142 mmol/L Normal 136-144 [facility] Reference Lab Comment on above: Performed By: #### C BCDIF, BMP, HFP, LDLDCT, LIPB, AHBCOT, HBSAG, AHBSAG, AHCV #### [facility] Routine Lab [address] [place] [address] Urea nitrogen [Mass/Vol] 10 mg/dL Normal 9-24 [facility] Reference Lab Comment on above: Performed By: #### C BCDIF, BMP, HFP, LDLDCT, LIPB, AHBCOT, HBSAG, AHBSAG, AHCV #### [facility] Routine Lab [address] [id number] CBC and Differentialon 02-02 Abs Baso 0.08 k/uL Normal <0.11 [facility] Reference Lab Comment on above: Performed By: #### C BCDIF, BMP, HFP, LDLDCT, LIPB, AHBCOT, HBSAG, AHBSAG, AHCV #### [facility] Routine Lab [address] [phone] Abs Lenoir 0.64 k/uL Normal <0.87 [facility] Reference Lab Comment on above: Performed By: #### C BCDIF, BMP, HFP, LDLDCT, LIPB, AHBCOT, HBSAG, AHBSAG, AHCV #### [facility] Routine Lab [address] [place] [phone] Abs Neut 7.96 k/uL High 1.45-7.50 [facility] Reference Lab Comment on above: Performed By: #### C BCDIF, BMP, HFP, LDLDCT, LIPB, AHBCOT, HBSAG, AHBSAG, AHCV #### [facility] Routine Lab [address] [place] [phone] Absolute nRBC <0.01 Normal <0.01 [facility] Reference Lab Comment on above: Performed By: #### C BCDIF, BMP, HFP, LDLDCT, LIPB, AHBCOT, HBSAG, AHBSAG, AHCV #### [facility] Routine Lab [address] [place] [phone] Basophils/100 WBC (Bld) 0.7 % Normal [facility] Reference Lab Comment on above: Performed By: #### C BCDIF, BMP, HFP, LDLDCT, LIPB, AHBCOT, HBSAG, AHBSAG, AHCV #### [facility] Routine Lab [address] [place] [phone] DTYPE ADIFF Normal [facility] Reference Lab Comment on above: Performed By: #### C BCDIF, BMP, HFP, LDLDCT, LIPB, AHBCOT, HBSAG, AHBSAG, AHCV #### [facility] Routine Lab [address] [place] [phone] Eosinophils (Bld) [#/Vol] 0.21 10*3/uL Normal <0.46 [facility] Reference Lab Comment on above: Performed By: #### C BCDIF, BMP, HFP, LDLDCT, LIPB, AHBCOT, HBSAG, AHBSAG, AHCV #### [facility] Routine Lab [address] [phone] Eosinophils/100 WBC (Bld) 1.7 % Normal [facility] Reference Lab Comment on above: Performed By: #### C BCDIF, BMP, HFP, LDLDCT, LIPB, AHBCOT, HBSAG, AHBSAG, AHCV #### [facility] Routine Lab [address] [place] [phone] Erythrocyte distribution width (RBC) [Ratio] 17.0 % High 11.5-15.0 [facility] Reference Lab Comment on above: Performed By: #### C BCDIF, BMP, HFP, LDLDCT, LIPB, AHBCOT, HBSAG, AHBSAG, AHCV #### [facility] Routine Lab [address] [place] [phone] Hematocrit (Bld) [Volume fraction] 53.0 % High 39.0-51.0 [facility] Reference Lab Comment on above: Performed By: #### C BCDIF, BMP, HFP, LDLDCT, LIPB, AHBCOT, HBSAG, AHBSAG, AHCV #### [facility] Routine Lab [address] [place] [phone] Hemoglobin (Bld) [Mass/Vol] 16.9 g/dL Normal 13.0-17.0 [facility] Reference Lab Comment on above: Performed By: #### C BCDIF, BMP, HFP, LDLDCT, LIPB, AHBCOT, HBSAG, AHBSAG, AHCV #### [facility] Routine Lab [address] [place] [phone] Lymphocytes (Bld) [#/Vol] 3.13 10*3/uL Normal 1.00-4.00 [facility] Reference Lab Comment on above: Performed By: #### C BCDIF, BMP, HFP, LDLDCT, LIPB, AHBCOT, HBSAG, AHBSAG, AHCV #### [facility] Routine Lab [address] [address] Lymphocytes/100 WBC (Bld) 26.0 % Normal [facility] Reference Lab Comment on above: Performed By: #### C BCDIF, BMP, HFP, LDLDCT, LIPB, AHBCOT, HBSAG, AHBSAG, AHCV #### [facility] Routine Lab [address] [address] MCH (RBC) [Entitic mass] 28.2 pG Normal 26.0-34.0 [facility] Reference Lab Comment on above: Performed By: #### C BCDIF, BMP, HFP, LDLDCT, LIPB, AHBCOT, HBSAG, AHBSAG, AHCV #### [facility] Routine Lab [address] [place] [address] MCHC (RBC) [Mass/Vol] 31.9 g/dL Normal 30.5-36.0 [facility] Reference Lab Comment on above: Performed By: #### C BCDIF, BMP, HFP, LDLDCT, LIPB, AHBCOT, HBSAG, AHBSAG, AHCV #### [facility] Routine Lab [address] [place] [address] MCV (RBC) [Entitic vol] 88.5 fL Normal 80.0-100.0 [facility] Reference Lab Comment on above: Performed By: #### C BCDIF, BMP, HFP, LDLDCT, LIPB, AHBCOT, HBSAG, AHBSAG, AHCV #### [facility] Routine Lab [address] [place] [address] Monocytes/100 WBC (Bld) 5.3 % Normal [facility] Reference Lab Comment on above: Performed By: #### C BCDIF, BMP, HFP, LDLDCT, LIPB, AHBCOT, HBSAG, AHBSAG, AHCV #### [facility] Routine Lab [address] [address] Neutrophils/100 WBC (Bld) 66.3 % Normal [facility] Reference Lab Comment on above: Performed By: #### C BCDIF, BMP, HFP, LDLDCT, LIPB, AHBCOT, HBSAG, AHBSAG, AHCV #### [facility] Routine Lab [address] [place] [place], [place] [address] NRBCs 0.0 /100 WBC Normal 0 [facility] Reference Lab Comment on above: Performed By: #### C BCDIF, BMP, HFP, LDLDCT, LIPB, AHBCOT, HBSAG, AHBSAG, AHCV #### [facility] Routine Lab [address] [address] Platelet mean volume (Bld) [Entitic vol] 10.4 fL Normal 9.0-12.7 [facility] Reference Lab Comment on above: Performed By: #### C BCDIF, BMP, HFP, LDLDCT, LIPB, AHBCOT, HBSAG, AHBSAG, AHCV #### [facility] Routine Lab [address] [address] Platelets (Bld) [#/Vol] 385 10*3/uL Normal 150-400 [facility] Reference Lab Comment on above: Performed By: #### C BCDIF, BMP, HFP, LDLDCT, LIPB, AHBCOT, HBSAG, AHBSAG, AHCV #### [facility] Routine Lab [address] [address] RBC (Bld) [#/Vol] 5.99 10*6/uL Normal 4.20-6.[address] [facility] Reference Lab Comment on above: Performed By: #### C BCDIF, BMP, HFP, LDLDCT, LIPB, AHBCOT, HBSAG, AHBSAG, AHCV #### [facility] Routine Lab [address] [place], [place] [address] WBC (Bld) [#/Vol] 12.02 10*3/uL High 3.70-11.00 [facility] Reference Lab Comment on above: Performed By: #### C BCDIF, BMP, HFP, LDLDCT, LIPB, AHBCOT, HBSAG, AHBSAG, AHCV #### [facility] Routine Lab [address] [place], [place] [address] Hep B Core Ab,Totalon 2018 Hep B Core Ab,Total NEGAT Normal Negative [facility] Reference Lab Comment on above: Performed By: #### C BCDIF, BMP, HFP, LDLDCT, LIPB, AHBCOT, HBSAG, AHBSAG, AHCV #### [facility] Routine Lab [address] [place] [address] HepB Surface Ab,Qualon 02-02 HepB Surface Ab,Qual Negative Normal Negative [facility] Reference Lab Comment on above: Performed By: #### C BCDIF, BMP, HFP, LDLDCT, LIPB, AHBCOT, HBSAG, AHBSAG, AHCV #### [facility] Routine Lab [address] [place] [address] Hepatic Functn Panelon 02-02 Albumin [Mass/Vol] 4.5 g/dL Normal 3.9-4.9 [facility] Reference Lab Comment on above: Performed By: #### C BCDIF, BMP, HFP, LDLDCT, LIPB, AHBCOT, HBSAG, AHBSAG, AHCV #### [facility] Routine Lab [address] [place] [address] ALP [Catalytic activity/Vol] 96 U/L Normal 38-113 [facility] Reference Lab Comment on above: Performed By: #### C BCDIF, BMP, HFP, LDLDCT, LIPB, AHBCOT, HBSAG, AHBSAG, AHCV #### [facility] Routine Lab [address] [place], [place] [address] ALT [Catalytic activity/Vol] 11 U/L Normal 10-54 [facility] Reference Lab Comment on above: Performed By: #### C BCDIF, BMP, HFP, LDLDCT, LIPB, AHBCOT, HBSAG, AHBSAG, AHCV #### [facility] Routine Lab [address] [place] [address] AST [Catalytic activity/Vol] 17 U/L Normal 14-40 [facility] Reference Lab Comment on above: Performed By: #### C BCDIF, BMP, HFP, LDLDCT, LIPB, AHBCOT, HBSAG, AHBSAG, AHCV #### [facility] Routine Lab [address] [place] [address] Bilirubin Ql (U) 0.6 mg/dL Normal 0.2-1.3 [facility] Reference Lab Comment on above: Performed By: #### C BCDIF, BMP, HFP, LDLDCT, LIPB, AHBCOT, HBSAG, AHBSAG, AHCV #### [facility] Routine Lab [address] [place] [address] Bilirubin,Conjugated <0.2 Normal <0.2 [facility] Reference Lab Comment on above: Performed By: #### C BCDIF, BMP, HFP, LDLDCT, LIPB, AHBCOT, HBSAG, AHBSAG, AHCV #### [facility] Routine Lab [address] [place] [address] Protein [Mass/Vol] 7.7 g/dL Normal 6.3-8.0 [facility] Reference Lab Comment on above: Performed By: #### C BCDIF, BMP, HFP, LDLDCT, LIPB, AHBCOT, HBSAG, AHBSAG, AHCV #### [facility] Routine Lab [address] [place] [address] Hepatitis B Surf. Agon 02-02 Hepatitis B Surf. Ag NEGAT Normal Negative [facility] Reference Lab Comment on above: Performed By: #### C BCDIF, BMP, HFP, LDLDCT, LIPB, AHBCOT, HBSAG, AHBSAG, AHCV #### [facility] Routine Lab [address], [place] [address] Hepatitis C Ab IAon 02-03-20 19 Hepatitis C Ab IA NEGAT Normal Negative [facility] Reference Lab Comment on above: Performed By: #### C BCDIF, BMP, HFP, LDLDCT, LIPB, AHBCOT, HBSAG, AHBSAG, AHCV #### [facility] Routine Lab [address], [place] [address] LDL-Chol, Directon 9 LDL-Chol, Direct 155 mg/dL High <100 [facility] Reference Lab Comment on above: Performed By: #### C BCDIF, BMP, HFP, LDLDCT, LIPB, AHBCOT, HBSAG, AHBSAG, AHCV #### [facility] Routine Lab [address], [place] [address] VLDL Cholesterol NOTI Normal <30 [facility] Reference Lab Comment on above: Performed By: #### C BCDIF, BMP, HFP, LDLDCT, LIPB, AHBCOT, HBSAG, AHBSAG, AHCV #### [facility] Routine Lab [address] [place] [id number] Lipid Panel, [place] 019 Cholesterol [Mass/Vol] 213 mg/dL High <200 [facility] Reference [facility] Comment on above: Performed By: #### C BCDIF, BMP, HFP, LDLDCT, LIPB, AHBCOT, HBSAG, AHBSAG, AHCV #### [facility] Routine Lab [address], [place] [address] Cholesterol in HDL [Mass/Vol] 32 mg/dL Low >39 [facility] Reference [facility] Comment on above: Performed By: #### C BCDIF, BMP, HFP, LDLDCT, LIPB, AHBCOT, HBSAG, AHBSAG, AHCV #### [facility] Routine Lab [address], [place] [address] Cholesterol in LDL [Mass/Vol] 145 mg/dL High <100 [facility] Reference [facility] Comment on above: Performed By: #### C BCDIF, BMP, HFP, LDLDCT, LIPB, AHBCOT, HBSAG, AHBSAG, AHCV #### [facility] Routine Lab [address] [id number] Cholesterol in VLDL [Mass/Vol] 36 mg/dL High <30 [facility] Reference Lab Comment on above: Performed By: #### C BCDIF, BMP, HFP, LDLDCT, LIPB, AHBCOT, HBSAG, AHBSAG, AHCV #### [facility] Routine Lab [address] [address] Cholesterol non HDL [Mass/Vol] 181 mg/dL High <130 [facility] Reference Lab Comment on above: Performed By: #### C BCDIF, BMP, HFP, LDLDCT, LIPB, AHBCOT, HBSAG, AHBSAG, AHCV #### [facility] Routine Lab [address] [address] Fasting Time UN Normal [facility] Reference Lab Comment on above: Performed By: #### C BCDIF, BMP, HFP, LDLDCT, LIPB, AHBCOT, HBSAG, AHBSAG, AHCV #### [facility] Routine Lab [address] [address] LDL:HDL Ratio 4.53 High <2.54 [facility] Reference Lab Comment on above: Performed By: #### C BCDIF, BMP, HFP, LDLDCT, LIPB, AHBCOT, HBSAG, AHBSAG, AHCV #### [facility] Routine Lab [address] [address] TC:HDL Ratio 6.66 High <5.10 [facility] Reference Lab Comment on above: Performed By: #### C BCDIF, BMP, HFP, LDLDCT, LIPB, AHBCOT, HBSAG, AHBSAG, AHCV #### [facility] Routine Lab [address] [address] Triglyceride [Mass/Vol] 182 mg/dL High <150 [facility] Reference Lab Comment on above: Performed By: #### C BCDIF, BMP, HFP, LDLDCT, LIPB, AHBCOT, HBSAG, AHBSAG, AHCV #### [facility] Routine Lab [address] [place], [place] [id number] ECG B/O W INTERP (MED OFFICE ) [facility] Vital Signs Date Time Vital Sign Value Performing Clinician Jeremiahi finn 09-05-2024 09:06-0400 Body height 188 cm Christiana Arrington MD Work Phone: [facility] 09-05-2024 09:06-0400 Body mass index (BMI) [Ratio] 26.32 kg/m2 Christiana Arrington MD Work Phone: [facility] 09-05-2024 09:06-0400 Body weight 92.99 kg Christiana Arrington MD Work Phone: [facility] 09-05-2024 09:06-0400 Diastolic blood pressure 70 mm[Hg] Christiana Arrington MD Work Phone: [facility] 09-05-2024 09:06-0400 Systolic blood pressure 162 mm[Hg] Christiana Arrington MD Work Phone: [facility] 08-09-2024 14:31-0400 Diastolic blood pressure 60 mm[Hg] Linda Parish MD Work Phone: [facility] 08-09-2024 14:31-0400 Systolic blood pressure 132 mm[Hg] Linda Parish MD Work Phone: [facility] 08-09-2024 14:12-0400 Body height 188 cm Linda Parish MD Work Phone: [facility] 08-09-2024 14:12-0400 Body mass index (BMI) [Ratio] 26.32 kg/m2 Linda Parish MD Work Phone: [facility] 08-09-2024 14:12-0400 Body weight 92.99 kg Linda Parish MD Work Phone: [facility] 08-09-2024 14:12-0400 Heart rate 64 /min Linda Parish MD Work Phone: [facility] 08-09-2024 14:12-0400 SaO2% (BldA) [Mass fraction] 98 % Linda Parish MD Work Phone: [facility] 05-30-2024 09:29-0500 Body height 188 cm Christiana Arrington MD Work Phone: [facility] 05-30-2024 09:29-0500 Body mass index (BMI) [Ratio] 26.71 kg/m2 Christiana Arrington MD Work Phone: [facility] 05-30-2024 09:29-0500 Body weight 94.35 kg Crhistiana Arrington MD Work Phone: [facility] 05-30-2024 09:29-0500 Diastolic blood pressure 88 mm[Hg] Christiana Arrington MD Work Phone: [facility] 05-30-2024 09:29-0500 Systolic blood pressure 172 mm[Hg] Christiana Arrington MD Work Phone: [facility] 05-09-2024 14:10-0500 Body height 188 cm Linda Parish MD Work Phone: [facility] 05-09-2024 14:10-0500 Body mass index (BMI) [Ratio] 26.71 kg/m2 Linda Parish MD Work Phone: [facility] 05-09-2024 14:10-0500 Body weight 94.35 kg Linda Parish MD Work Phone: [facility] 05-09-2024 14:10-0500 Diastolic blood pressure 58 mm[Hg] Linda Parish MD Work Phone: [facility] 05-09-2024 14:10-0500 Heart rate 67 /min Linda Parish MD Work Phone: [facility] 05-09-2024 14:10-0500 SaO2% (BldA) [Mass fraction] 98 % Linda Parish MD Work Phone: [facility] 05-09-2024 14:10-0500 Systolic blood pressure 130 mm[Hg] Linda Parish MD Work Phone: [facility] 04-17-2024 10:27-0500 Diastolic blood pressure 80 mm[Hg] Leslie Ibrahim APARTMENT MAINTENANCE WORKER.SIGNAL SUPERVISOR Work Phone: [facility] Comment on above: Repeat BP 04-17-2024 10:27-0500 Heart rate 56 /min Leslie Ibrahim APARTMENT MAINTENANCE WORKER.SIGNAL SUPERVISOR Work Phone: [facility] 04-17-2024 10:27-0500 Systolic blood pressure 142 mm[Hg] Leslie Ibrahim APARTMENT MAINTENANCE WORKER.SIGNAL SUPERVISOR Work Phone: [facility] Comment on above: Repeat BP 04-17-2024 10:22-0500 Body mass index (BMI) [Ratio] 26.72 kg/m2 Leslie Ibrahim APARTMENT MAINTENANCE WORKER.SIGNAL SUPERVISOR Work Phone: [facility] 04-17-2024 10:22-0500 Body weight 94.4 kg Leslie Ibrahim APARTMENT MAINTENANCE WORKER.SIGNAL SUPERVISOR Work Phone: [facility] 04-17-2024 10:22-0500 SaO2% (BldA) [Mass fraction] 99 % Leslie Ibrahim APARTMENT MAINTENANCE WORKER.SIGNAL SUPERVISOR Work Phone: [facility] 03-22-2024 11:14-0500 Body height 188 cm Choco Stevens MD Work Phone: [facility] 03-22-2024 11:14-0500 Body mass index (BMI) [Ratio] 26.51 kg/m2 Choco Stevens MD Work Phone: [facility] 03-22-2024 11:14-0500 Body weight 93.67 kg Choco Stevens MD Work Phone: [facility] 03-22-2024 11:14-0500 Diastolic blood pressure 74 mm[Hg] Choco Stevens MD Work Phone: [facility] 03-22-2024 11:14-0500 Heart rate 70 /min Choco Stevens MD Work Phone: [facility] 03-22-2024 11:14-0500 Systolic blood pressure 167 mm[Hg] Choco Stevens MD Work Phone: [facility] 01-28-2024 15:25-0400 Body height 188 cm Ambreen Man APRN.SIGNAL SUPERVISOR Work Phone: [facility] 01-28-2024 15:25-0400 Body mass index (BMI) [Ratio] 26.69 kg/m2 Ambreen Man APRN.SIGNAL SUPERVISOR Work Phone: [facility] 01-28-2024 15:25-0400 Body weight 94.3 kg Ambreen Man APRN.SIGNAL SUPERVISOR Work Phone: [facility] 01-28-2024 15:25-0400 Diastolic blood pressure 64 mm[Hg] Ambreen Man APRN.SIGNAL SUPERVISOR Work Phone: [facility] 01-28-2024 15:25-0400 Heart rate 62 /min Ambreen Man APRN.SIGNAL SUPERVISOR Work Phone: [facility] 01-28-2024 15:25-0400 SaO2% (BldA) [Mass fraction] 96 % Ambreen Man APRN.SIGNAL SUPERVISOR Work Phone: [facility] 01-28-2024 15:25-0400 Systolic blood pressure 144 mm[Hg] Ambreen Man APRN.SIGNAL SUPERVISOR Work Phone: [facility] 01-26-2024 14:25-0400 Body height 188 cm Lawrence Maria MD Work Phone: [facility] 01-26-2024 14:25-0400 Body mass index (BMI) [Ratio] 26.71 kg/m2 Lawrence Maria MD Work Phone: [facility] 01-26-2024 14:25-0400 Body weight 94.35 kg Lawrence Maria MD Work Phone: [facility] 01-26-2024 14:25-0400 Diastolic blood pressure 71 mm[Hg] Lawrence Maria MD Work Phone: [facility] 01-26-2024 14:25-0400 Heart rate 60 /min Lawrence Maria MD Work Phone: [facility] 01-26-2024 14:25-0400 Systolic blood pressure 143 mm[Hg] Lawrence Maria MD Work Phone: [facility] 01-05-2024 15:04-0400 Diastolic blood pressure 68 mm[Hg] Linda Parish MD Work Phone: [facility] 01-05-2024 15:04-0400 Systolic blood pressure 138 mm[Hg] Linda Parish MD Work Phone: [facility] 01-05-2024 14:45-0400 Body height 182.9 cm Linda Parish MD Work Phone: [facility] 01-05-2024 14:45-0400 Body mass index (BMI) [Ratio] 28.07 kg/m2 Linda Parish MD Work Phone: [facility] 01-05-2024 14:45-0400 Body weight 93.89 kg Linda Parish MD Work Phone: [facility] 01-05-2024 14:45-0400 Heart rate 67 /min Linda Parish MD Work Phone: [facility] 01-05-2024 14:45-0400 SaO2% (BldA) [Mass fraction] 97 % Linda Parish MD Work Phone: [facility] 10-28-2023 13:50-0400 Body height 182.9 cm Ju Edwards DO Work Phone: [facility] 10-28-2023 13:50-0400 Body mass index (BMI) [Ratio] 27.78 kg/m2 Ju Edwards DO Work Phone: [facility] 10-28-2023 13:50-0400 Body weight 92.9 kg Ju Edwards DO Work Phone: [facility] 10-28-2023 13:50-0400 Diastolic blood pressure 74 mm[Hg] Ju Edwards DO Work Phone: [facility] 10-28-2023 13:50-0400 Heart rate 74 /min Ju Edwards DO Work Phone: [facility] 10-28-2023 13:50-0400 SaO2% (BldA) [Mass fraction] 96 % Ju Edwards DO Work Phone: [facility] 10-28-2023 13:50-0400 Systolic blood pressure 144 mm[Hg] Ju Edwards DO Work Phone: [facility] 10-15-2023 10:51-0400 Body mass index (BMI) [Ratio] 27.67 kg/m2 Fredi Nunn APARTMENT MAINTENANCE WORKER.SIGNAL SUPERVISOR Work Phone: [facility] 10-15-2023 10:51-0400 Body temperature 97.5 [degF] Fredi Nunn APARTMENT MAINTENANCE WORKER.SIGNAL SUPERVISOR Work Phone: [facility] 10-15-2023 10:51-0400 Body weight 92.53 kg Fredi Nunn APARTMENT MAINTENANCE WORKER.SIGNAL SUPERVISOR Work Phone: [facility] 10-15-2023 10:51-0400 Diastolic blood pressure 77 mm[Hg] Fredi Nunn APARTMENT MAINTENANCE WORKER.SIGNAL SUPERVISOR Work Phone: [facility] 10-15-2023 10:51-0400 Heart rate 67 /min Fredi Nunn APARTMENT MAINTENANCE WORKER.SIGNAL SUPERVISOR Work Phone: [facility] 10-15-2023 10:51-0400 SaO2% (BldA) [Mass fraction] 97 % Fredi Nunn APARTMENT MAINTENANCE WORKER.SIGNAL SUPERVISOR Work Phone: [facility] 10-15-2023 10:51-0400 Systolic blood pressure 155 mm[Hg] Fredi Nunn APARTMENT MAINTENANCE WORKER.SIGNAL SUPERVISOR Work Phone: [facility] 10-11-2023 11:49-0400 Diastolic blood pressure 61 mm[Hg] Leslie Ibrahim APARTMENT MAINTENANCE WORKER.SIGNAL SUPERVISOR Work Phone: [facility] 10-11-2023 11:49-0400 Heart rate 53 /min Leslie Ibrahim APRN.SIGNAL SUPERVISOR Work Phone: [facility] 10-11-2023 11:49-0400 SaO2% (BldA) [Mass fraction] 99 % eLslie Ibrahim APRN.SIGNAL SUPERVISOR Work Phone: [facility] 10-11-2023 11:49-0400 Systolic blood pressure 146 mm[Hg] Leslie Ibrahim APRN.SIGNAL SUPERVISOR Work Phone: [facility] 10-11-2023 11:48-0400 Body mass index (BMI) [Ratio] 27.8 kg/m2 Leslie Ibrahim APRN.SIGNAL SUPERVISOR Work Phone: [facility] 10-11-2023 11:48-0400 Body weight 92.99 kg Leslie Ibrahim APRN.SIGNAL SUPERVISOR Work Phone: [facility] 10-06-2023 12:54-0400 Body height 182.9 cm Christiana Arrington MD Work Phone: [facility] 10-06-2023 12:54-0400 Body mass index (BMI) [Ratio] 27.12 kg/m2 Christiana Arrington MD Work Phone: [facility] 10-06-2023 12:54-0400 Body weight 90.72 kg Christiana Arrington MD Work Phone: [facility] 10-05-2023 14:10-0400 Body height 185.4 cm Linda Parish MD Work Phone: [facility] 10-05-2023 14:10-0400 Body mass index (BMI) [Ratio] 26.53 kg/m2 Linda Parish MD Work Phone: [facility] 10-05-2023 14:10-0400 Body weight 91.17 kg Linda Parish MD Work Phone: [facility] 10-05-2023 14:10-0400 Diastolic blood pressure 60 mm[Hg] Linda Parish MD Work Phone: [facility] 10-05-2023 14:10-0400 Heart rate 70 /min Linda Parish MD Work Phone: [facility] 10-05-2023 14:10-0400 SaO2% (BldA) [Mass fraction] 96 % Linda Parish MD Work Phone: [facility] 10-05-2023 14:10-0400 Systolic blood pressure 130 mm[Hg] Linda Parish MD Work Phone: [facility] 09-24-2023 14:20-0400 Body temperature 97.59 [degF] Treatment Wstr Work Phone: [facility] 09-24-2023 14:20-0400 Diastolic blood pressure 69 mm[Hg] Treatment Wstr Work Phone: [facility] 09-24-2023 14:20-0400 Heart rate 72 /min Treatment Wstr Work Phone: [facility] 09-24-2023 14:20-0400 Respiratory rate 16 /min Treatment Wstr Work Phone: [facility] 09-24-2023 14:20-0400 SaO2% (BldA) [Mass fraction] 99 % Treatment Wstr Work Phone: [facility] 09-24-2023 14:20-0400 Systolic blood pressure 143 mm[Hg] Treatment Wstr Work Phone: [facility] 08-31-2023 08:57-0400 Body height 185.4 cm Linda Parish MD Work Phone: [facility] 08-31-2023 08:57-0400 Body mass index (BMI) [Ratio] 26.12 kg/m2 Linda Parish MD Work Phone: [facility] 08-31-2023 08:57-0400 Body weight 89.81 kg Linda Parish MD Work Phone: [facility] 08-31-2023 08:57-0400 Diastolic blood pressure 62 mm[Hg] Linda Parish MD Work Phone: [facility] 08-31-2023 08:57-0400 Heart rate 70 /min Linda Parish MD Work Phone: [facility] 08-31-2023 08:57-0400 SaO2% (BldA) [Mass fraction] 99 % Linda Parish MD Work Phone: [facility] 08-31-2023 08:57-0400 Systolic blood pressure 130 mm[Hg] Linda Parish MD Work Phone: [facility] 08-27-2023 11:27-0400 Body mass index (BMI) [Ratio] 26.52 kg/m2 Meir Montalvo MD Work Phone: [facility] 08-27-2023 11:27-0400 Body temperature 97.59 [degF] Meir Montalvo MD Work Phone: [facility] 08-27-2023 11:27-0400 Body weight 91.17 kg Meir Montalvo MD Work Phone: [facility] 08-27-2023 11:27-0400 Diastolic blood pressure 71 mm[Hg] Meir Montalvo MD Work Phone: [facility] 08-27-2023 11:27-0400 Heart rate 68 /min Meir Montalvo MD Work Phone: [facility] 08-27-2023 11:27-0400 SaO2% (BldA) [Mass fraction] 98 % Meir Montalvo MD Work Phone: [facility] 08-27-2023 11:27-0400 Systolic blood pressure 139 mm[Hg] Meir Montalvo MD Work Phone: [facility] 08-22-2023 02:30-0400 Body temperature 97.8 [degF] Dr. Linda Parish Work Phone: [facility] 08-22-2023 02:30-0400 Diastolic blood pressure 66 mm[Hg] Dr. Linda Parish Work Phone: [facility] 08-22-2023 02:30-0400 Heart rate 66 /min Dr. Linda Parish Work Phone: 2(622)006-382476 [place] [address] 08-22-2023 02:30-0400 Respiratory rate 18 /min Dr. Linda Parish Work Phone: 0(785)368-994883 [place] [address] 08-22-2023 02:30-0400 SaO2% (BldA) [Mass fraction] 96 % Dr. Linda Parish Work Phone: 6(969)006-851183 [place] [address] 08-22-2023 02:30-0400 Systolic blood pressure 161 mm[Hg] Dr. Linda Parish Work Phone: 4(671)981-333983 [place] [address] 08-21-2023 03:25-0400 Body mass index (BMI) [Ratio] 26.9 kg/m2 Dr. Linda Parish Work Phone: 0(461)441-293283 [place] [address] 08-21-2023 03:25-0400 Body weight 92.[address] Linda Parish Work Phone: 9(866)731-560283 [place] [address] 08-20-2023 13:39-0400 Body height 185.[address] Linda Parish Work Phone: 3(429)415-506283 [place] [address] 08-18-2023 16:10-0400 Body height 185.[address] Linda Parish Work Phone: 6(286)957-122883 [place] [address] 08-18-2023 16:10-0400 Body mass index (BMI) [Ratio] 26.4 kg/m2 Dr. Linda Parish Work Phone: 2(294)087-282583 [place] [address] 08-18-2023 16:10-0400 Body weight 90.[address] Linda Parish Work Phone: 0(399)783-963283 [place] [address] 08-18-2023 15:00-0400 Body temperature 97.7 [degF] Dr. Linda Parish Work Phone: 1(874)096-900483 [place] [address] 08-18-2023 15:00-0400 Diastolic blood pressure 85 mm[Hg] Dr. Lnida Parish Work Phone: 0(979)783-373783 [place] [address] 08-18-2023 15:00-0400 Heart rate 69 /min Dr. Linda Parish Work Phone: 0(225)469-992583 [place] [address] 08-18-2023 15:00-0400 Respiratory rate 17 /min Dr. Linda Parish Work Phone: [facility] 08-18-2023 15:00-0400 SaO2% (BldA) [Mass fraction] 97 % Dr. Linda Parish Work Phone: [facility] 08-18-2023 15:00-0400 Systolic blood pressure 107 mm[Hg] Dr. Linda Parish Work Phone: [facility] 08-17-2023 12:50-0400 Body height 188 cm Linda Parish MD Work Phone: [facility] 08-17-2023 12:50-0400 Body weight 91.17 kg Linda Parish MD Work Phone: [facility] 08-17-2023 12:50-0400 Diastolic blood pressure 50 mm[Hg] Linda Parish MD Work Phone: [facility] 08-17-2023 12:50-0400 Heart rate 72 /min Linda Parish MD Work Phone: [facility] 08-17-2023 12:50-0400 SaO2% (BldA) [Mass fraction] 99 % Linda Parish MD Work Phone: [facility] 08-17-2023 12:50-0400 Systolic blood pressure 118 mm[Hg] Linda Parish MD Work Phone: [facility] 07-16-2023 09:34-0400 Body temperature 97.2 [degF] Max Bateman Work Phone: [facility] 07-16-2023 09:34-0400 Body weight 88.45 kg Max Bateman Work Phone: [facility] 07-16-2023 09:34-0400 Diastolic blood pressure 78 mm[Hg] Max Bateman Work Phone: [facility] 07-16-2023 09:34-0400 Heart rate 73 /min Max Bateman Work Phone: [facility] 07-16-2023 09:34-0400 SaO2% (BldA) [Mass fraction] 98 % Max Bateman Work Phone: [facility] 07-16-2023 09:34-0400 Systolic blood pressure 151 mm[Hg] Max Bateman Work Phone: [facility] 07-14-2023 09:54-0400 Body height 180.3 cm Christiana Arrington MD Work Phone: [facility] 07-14-2023 09:54-0400 Body weight 88 kg Christiana Arrington MD Work Phone: [facility] 07-01-2023 09:36-0500 Body weight 88 kg Camille Suppan APARTMENT MAINTENANCE WORKER.HEALTH SERVICE COORDINATOR Work Phone: [facility] 07-01-2023 09:36-0500 Diastolic blood pressure 64 mm[Hg] Camille Suppan APARTMENT MAINTENANCE WORKER.HEALTH SERVICE COORDINATOR Work Phone: [facility] 07-01-2023 09:36-0500 Heart rate 74 /min Camille Suppan APARTMENT MAINTENANCE WORKER.HEALTH SERVICE COORDINATOR Work Phone: [facility] 07-01-2023 09:36-0500 Respiratory rate 18 /min Camille Suppan APARTMENT MAINTENANCE WORKER.HEALTH SERVICE COORDINATOR Work Phone: [facility] 07-01-2023 09:36-0500 SaO2% (BldA) [Mass fraction] 95 % Camille Suppan APARTMENT MAINTENANCE WORKER.HEALTH SERVICE COORDINATOR Work Phone: [facility] 07-01-2023 09:36-0500 Systolic blood pressure 126 mm[Hg] Camille Suppan APARTMENT MAINTENANCE WORKER.HEALTH SERVICE COORDINATOR Work Phone: [facility] 06-29-2023 13:10-0500 Diastolic blood pressure 72 mm[Hg] Rosi Alonso DO Work Phone: [facility] 06-29-2023 13:10-0500 Heart rate 95 /min Rois Alonso DO Work Phone: [facility] 06-29-2023 13:10-0500 SaO2% (BldA) [Mass fraction] 99 % Rosi Alonso DO Work Phone: [facility] 06-29-2023 13:10-0500 Systolic blood pressure 123 mm[Hg] Rosi Alonso DO Work Phone: [facility] 06-25-2023 14:37-0500 Body temperature 97.9 [degF] Dr. Linda Parish Work Phone: [facility] 06-25-2023 14:37-0500 Diastolic blood pressure 69 mm[Hg] Dr. Linda Parish Work Phone: 4(934)510-947876 [place] [address] 06-25-2023 14:37-0500 Heart rate 72 /min Dr. Linda Parish Work Phone: 4(836)590-425776 [place] [address] 06-25-2023 14:37-0500 Respiratory rate 18 /min Dr. Linda Parish Work Phone: [facility] 06-25-2023 14:37-0500 SaO2% (BldA) [Mass fraction] 96 % Dr. Linda Parish Work Phone: 8(307)932-926676 [place] [address] 06-25-2023 14:37-0500 Systolic blood pressure 136 mm[Hg] Dr. Linda Parish Work Phone: 0(336)925-424383 [place] [address] 06-22-2023 12:58-0500 Body height 185.[address] Linda Parish Work Phone: 3(070)218-505583 [place] [address] 06-22-2023 12:58-0500 Body weight 90.[address] Linda Parish Work Phone: 6(341)553-725676 [place] [address] 06-21-2023 09:45-0500 Body mass index (BMI) [Ratio] 26.2 kg/m2 Dr. Linda Parish Work Phone: 7(474)918-742476 [place] [address] 06-19-2023 16:23-0500 Body temperature 97.9 [degF] Dr. Linda Parish Work Phone: 9(469)401-261676 [place] [address] 06-19-2023 16:23-0500 Diastolic blood pressure 71 mm[Hg] Dr. Linda Parish Work Phone: [facility] 06-19-2023 16:23-0500 Heart rate 81 /min Dr. Linda Parish Work Phone: [facility] 06-19-2023 16:23-0500 Respiratory rate 17 /min Dr. Linda Parish Work Phone: [facility] 06-19-2023 16:23-0500 SaO2% (BldA) [Mass fraction] 99 % Dr. Linda Parish Work Phone: [facility] 06-19-2023 16:23-0500 Systolic blood pressure 146 mm[Hg] Dr. Linda Parish Work Phone: [facility] 06-19-2023 11:59-0500 Body height 185.[address] Linda Parish Work Phone: [facility] 06-19-2023 11:59-0500 Body mass index (BMI) [Ratio] 26.5 kg/m2 Dr. Linda Parish Work Phone: [facility] 06-19-2023 11:59-0500 Body weight 91.[address] Linda Parish Work Phone: [facility] 06-19-2023 10:55-0500 Diastolic blood pressure 61 mm[Hg] Linda Parish MD Work Phone: [facility] 06-19-2023 10:55-0500 Systolic blood pressure 142 mm[Hg] Linda Parish MD Work Phone: [facility] 06-19-2023 10:52-0500 Body weight 90.72 kg Linda Parish MD Work Phone: [facility] 06-19-2023 10:52-0500 Heart rate 101 /min Linda Parish MD Work Phone: [facility] 06-19-2023 10:52-0500 Respiratory rate 18 /min Linda Parish MD Work Phone: [facility] 06-19-2023 10:52-0500 SaO2% (BldA) [Mass fraction] 97 % Linda Parish MD Work Phone: [facility] 06-17-2023 08:53-0500 Body temperature 97.5 [degF] Max Bateman Work Phone: [facility] 06-17-2023 08:53-0500 Body weight 89.36 kg Max Bateman Work Phone: [facility] 06-17-2023 08:53-0500 Diastolic blood pressure 66 mm[Hg] Max Bateman Work Phone: [facility] 06-17-2023 08:53-0500 Heart rate 86 /min Max Bateman Work Phone: [facility] 06-17-2023 08:53-0500 SaO2% (BldA) [Mass fraction] 99 % Max Bateman Work Phone: [facility] 06-17-2023 08:53-0500 Systolic blood pressure 139 mm[Hg] Max Bateman Work Phone: [facility] 06-10-2023 12:10-0500 Body temperature 97.5 [degF] Dr. Linda Parish Work Phone: [facility] 06-10-2023 12:10-0500 Diastolic blood pressure 78 mm[Hg] Dr. Linda Parish Work Phone: [facility] 06-10-2023 12:10-0500 Heart rate 65 /min Dr. Linda Parish Work Phone: [facility] 06-10-2023 12:10-0500 Respiratory rate 16 /min Dr. Linda Parish Work Phone: [facility] 06-10-2023 12:10-0500 SaO2% (BldA) [Mass fraction] 98 % Dr. Linda Parish Work Phone: [facility] 06-10-2023 12:10-0500 Systolic blood pressure 146 mm[Hg] Dr. Linda Parish Work Phone: [facility] 06-08-2023 16:06-0500 Body height 182.[address] Linda Parish Work Phone: 6(972)262-754083 [place] [address] 06-08-2023 16:06-0500 Body weight 86.[address] Linda Parish Work Phone: 7(668)825-111083 [place] [address] 06-08-2023 12:06-0500 Body mass index (BMI) [Ratio] 25.9 kg/m2 Dr. Linda Parish Work Phone: 9(441)265-851583 [place] [address] 06-07-2023 22:19-0500 Inhaled oxygen flow rate 2 L/min Dr. Linda Parish Work Phone: 0(072)488-729783 [place] [address] 06-07-2023 18:14-0500 Body temperature 97.8 [degF] Dr. Linda Parish Work Phone: 7(084)068-517383 [place] [address] 06-07-2023 18:14-0500 Diastolic blood pressure 57 mm[Hg] Dr. Linda Parish Work Phone: 1(901)018-341083 [place] [address] 06-07-2023 18:14-0500 Heart rate 81 /min Dr. Linda Parish Work Phone: 9(240)789-300283 [place] [address] 06-07-2023 18:14-0500 Respiratory rate 24 /min Dr. Linda Parish Work Phone: 6(968)887-421383 [place] [address] 06-07-2023 18:14-0500 SaO2% (BldA) [Mass fraction] 100 % Dr. Linda Parish Work Phone: 2(336)731-069983 [place] [address] 06-07-2023 18:14-0500 Systolic blood pressure 121 mm[Hg] Dr. Linda Parish Work Phone: 0(175)258-708883 [place] [address] 06-07-2023 14:34-0500 Body mass index (BMI) [Ratio] 26.4 kg/m2 Dr. Linda Parish Work Phone: 7(232)637-640983 [place] [address] 06-07-2023 14:34-0500 Body weight 90.[address] Linda Parish Work Phone: 0(913)511-124583 [place] [address] 06-07-2023 13:27-0500 Body height 185.[address] Linda Parish Work Phone: [facility] 05-27-2023 14:09-0500 Diastolic blood pressure 64 mm[Hg] Rosi Alonso DO Work Phone: [facility] 05-27-2023 14:09-0500 Heart rate 85 /min Rosi Alonso DO Work Phone: [facility] 05-27-2023 14:09-0500 SaO2% (BldA) [Mass fraction] 98 % Rosi Alonso DO Work Phone: [facility] 05-27-2023 14:09-0500 Systolic blood pressure 119 mm[Hg] Rosi Alonso DO Work Phone: [facility] 03-16-2023 12:25-0500 Diastolic blood pressure 71 mm[Hg] Rosi Alonso DO Work Phone: [facility] 03-16-2023 12:25-0500 Heart rate 67 /min Rosi Alonso DO Work Phone: [facility] 03-16-2023 12:25-0500 SaO2% (BldA) [Mass fraction] 100 % Rosi Alonso DO Work Phone: [facility] 03-16-2023 12:25-0500 Systolic blood pressure 143 mm[Hg] Rosi Alonso DO Work Phone: [facility] 02-24-2023 14:03-0400 Body weight 81.65 kg Linda Parish MD Work Phone: [facility] 02-24-2023 14:03-0400 Diastolic blood pressure 68 mm[Hg] Linda Parish MD Work Phone: [facility] 02-24-2023 14:03-0400 Heart rate 73 /min Linda Parish MD Work Phone: [facility] 02-24-2023 14:03-0400 SaO2% (BldA) [Mass fraction] 98 % Linda Parish MD Work Phone: [facility] 02-24-2023 14:03-0400 Systolic blood pressure 128 mm[Hg] Linda Parish MD Work Phone: [facility] 02-11-2023 14:50-0400 Body height 188 cm Bruno Parra MD Work Phone: [facility] 02-11-2023 14:50-0400 Body temperature 97.39 [degF] Bruno Parra MD Work Phone: [facility] 02-11-2023 14:50-0400 Body weight 82.74 kg Bruno Parra MD Work Phone: [facility] 02-11-2023 14:50-0400 Diastolic blood pressure 68 mm[Hg] Bruno Parra MD Work Phone: [facility] 02-11-2023 14:50-0400 Heart rate 76 /min Bruno Parra MD Work Phone: [facility] 02-11-2023 14:50-0400 SaO2% (BldA) [Mass fraction] 99 % Bruno Parra MD Work Phone: [facility] 02-11-2023 14:50-0400 Systolic blood pressure 130 mm[Hg] Bruno Parra MD Work Phone: [facility] 02-10-2023 12:29-0400 Diastolic blood pressure 71 mm[Hg] Rosi Alonso DO Work Phone: [facility] 02-10-2023 12:29-0400 Heart rate 66 /min Rosi Alonso DO Work Phone: [facility] 02-10-2023 12:29-0400 SaO2% (BldA) [Mass fraction] 99 % Rosi Alonso DO Work Phone: [facility] 02-10-2023 12:29-0400 Systolic blood pressure 129 mm[Hg] Rosi Alonso DO Work Phone: [facility] 01-13-2023 09:38-0400 Diastolic blood pressure 71 mm[Hg] Rosimars Alonso DO Work Phone: [facility] 01-13-2023 09:38-0400 Heart rate 74 /min Rosi Alonso DO Work Phone: [facility] 01-13-2023 09:38-0400 SaO2% (BldA) [Mass fraction] 98 % Rosi Alonso DO Work Phone: [facility] 01-13-2023 09:38-0400 Systolic blood pressure 136 mm[Hg] Rosi Alonso DO Work Phone: [facility] 01-11-2023 13:50-0400 Body temperature 99 [degF] Linda Parish MD Work Phone: [facility] 01-11-2023 13:50-0400 Body weight 79.38 kg Linda Parish MD Work Phone: [facility] 01-11-2023 13:50-0400 Diastolic blood pressure 62 mm[Hg] Linda Parish MD Work Phone: [facility] 01-11-2023 13:50-0400 Heart rate 80 /min Linda Parish MD Work Phone: [facility] 01-11-2023 13:50-0400 SaO2% (BldA) [Mass fraction] 100 % Linda Parish MD Work Phone: [facility] 01-11-2023 13:50-0400 Systolic blood pressure 116 mm[Hg] Linda Parish MD Work Phone: [facility] 10-27-2022 15:11-0400 Body temperature 97.59 [degF] Bruno Parra MD Work Phone: [facility] 10-27-2022 15:11-0400 Body weight 82.19 kg Bruno Parra MD Work Phone: [facility] 10-27-2022 15:11-0400 Diastolic blood pressure 82 mm[Hg] Bruno Parra MD Work Phone: [facility] 10-27-2022 15:11-0400 Heart rate 87 /min Bruno Parra MD Work Phone: [facility] 10-27-2022 15:11-0400 SaO2% (BldA) [Mass fraction] 99 % Bruno Parra MD Work Phone: [facility] 10-27-2022 15:11-0400 Systolic blood pressure 136 mm[Hg] Bruno Parra MD Work Phone: [facility] 09-10-2022 14:04-0400 Body temperature 97.59 [degF] Bruno Parra MD Work Phone: [facility] 09-10-2022 14:04-0400 Body weight 77.11 kg Bruno Parra MD Work Phone: [facility] 09-10-2022 14:04-0400 Diastolic blood pressure 60 mm[Hg] Bruno Parra MD Work Phone: [facility] 09-10-2022 14:04-0400 Heart rate 101 /min Bruno Parra MD Work Phone: [facility] 09-10-2022 14:04-0400 SaO2% (BldA) [Mass fraction] 96 % Bruno Parra MD Work Phone: [facility] 09-10-2022 14:04-0400 Systolic blood pressure 118 mm[Hg] Bruno Parra MD Work Phone: [facility] 09-07-2022 14:00-0400 Body height 188 cm Nanci Red-Uriah APARTMENT MAINTENANCE WORKER.SIGNAL SUPERVISOR Work Phone: [facility] 09-07-2022 14:00-0400 Body weight 78.02 kg Nanci Red-Uriah APARTMENT MAINTENANCE WORKER.SIGNAL SUPERVISOR Work Phone: [facility] 09-07-2022 14:00-0400 Heart rate 86 /min Nanci Red-Uriah APARTMENT MAINTENANCE WORKER.SIGNAL SUPERVISOR Work Phone: [facility] 09-07-2022 14:00-0400 SaO2% (BldA) [Mass fraction] 99 % Nanci Ingram APRN.SIGNAL SUPERVISOR Work Phone: [facility] 09-01-2022 15:07-0400 Body height 188 cm Linda Parish MD Work Phone: [facility] 09-01-2022 15:07-0400 Body weight 78.02 kg Linda Parish MD Work Phone: [facility] 09-01-2022 15:07-0400 Diastolic blood pressure 60 mm[Hg] Linda Parish MD Work Phone: [facility] 09-01-2022 15:07-0400 Heart rate 79 /min Linda Parish MD Work Phone: [facility] 09-01-2022 15:07-0400 SaO2% (BldA) [Mass fraction] 95 % Linda Parish MD Work Phone: [facility] 09-01-2022 15:07-0400 Systolic blood pressure 116 mm[Hg] Linda Parish MD Work Phone: [facility] 06-08-2022 13:39-0500 Body height 188 cm [facility] 06-08-2022 13:39-0500 Body weight 80.29 kg [facility] 05-27-2022 13:11-0500 Body height 188 cm Smiley Oliveira MD Work Phone: [facility] 05-27-2022 13:11-0500 Body weight 79.38 kg Smiley Oliveira MD Work Phone: [facility] 05-27-2022 13:11-0500 Diastolic blood pressure 72 mm[Hg] Smiley Oliveira MD Work Phone: [facility] 05-27-2022 13:11-0500 Heart rate 80 /min Simley Oliveira MD Work Phone: [facility] 05-27-2022 13:11-0500 SaO2% (BldA) [Mass fraction] 96 % Smiley Oliveira MD Work Phone: [facility] 05-27-2022 13:11-0500 Systolic blood pressure 149 mm[Hg] Smiley Oliveira MD Work Phone: [facility] 05-01-2022 13:35-0500 Body weight 79.83 kg Linda Parish MD Work Phone: [facility] 05-01-2022 13:35-0500 Diastolic blood pressure 72 mm[Hg] Linda Parish MD Work Phone: [facility] 05-01-2022 13:35-0500 Heart rate 77 /min Linda Parish MD Work Phone: [facility] 05-01-2022 13:35-0500 Respiratory rate 18 /min Linda Parish MD Work Phone: [facility] 05-01-2022 13:35-0500 SaO2% (BldA) [Mass fraction] 99 % Linda Parish MD Work Phone: [facility] 05-01-2022 13:35-0500 Systolic blood pressure 126 mm[Hg] Linda Parish MD Work Phone: [facility] 02-05-2022 13:40-0400 Body weight 76.66 kg Linda Parish MD Work Phone: [facility] 02-05-2022 13:40-0400 Diastolic blood pressure 58 mm[Hg] Linda Parish MD Work Phone: [facility] 02-05-2022 13:40-0400 Heart rate 71 /min Linda Parish MD Work Phone: [facility] 02-05-2022 13:40-0400 Respiratory rate 16 /min Linda Parish MD Work Phone: [facility] 02-05-2022 13:40-0400 SaO2% (BldA) [Mass fraction] 98 % Linda Parish MD Work Phone: [facility] 02-05-2022 13:40-0400 Systolic blood pressure 110 mm[Hg] Linda Parish MD Work Phone: [facility] 01-30-2022 16:37-0400 Body weight 77.11 kg Linda Parish MD Work Phone: [facility] 01-30-2022 16:37-0400 Diastolic blood pressure 68 mm[Hg] Linda Parish MD Work Phone: [facility] 01-30-2022 16:37-0400 Heart rate 76 /min Linda Parish MD Work Phone: [facility] 01-30-2022 16:37-0400 Systolic blood pressure 112 mm[Hg] Linda Parish MD Work Phone: [facility] 01-28-2022 15:00-0400 Body height 185.4 cm Linda Parish MD Work Phone: [facility] 01-28-2022 15:00-0400 Body temperature 98.49 [degF] Linda Parish MD Work Phone: [facility] 01-28-2022 15:00-0400 Body weight 77.56 kg Linda Parish MD Work Phone: [facility] 01-28-2022 15:00-0400 Diastolic blood pressure 72 mm[Hg] Linda Parish MD Work Phone: [facility] 01-28-2022 15:00-0400 Heart rate 85 /min Linda Parish MD Work Phone: [facility] 01-28-2022 15:00-0400 SaO2% (BldA) [Mass fraction] 99 % Linda Parish MD Work Phone: [facility] 01-28-2022 15:00-0400 Systolic blood pressure 130 mm[Hg] Linda Parish MD Work Phone: [facility] 01-17-2022 22:32-0400 Diastolic blood pressure 80 mm[Hg] [facility] Work Phone: 01-17-2022 22:32-0400 Heart rate 64 /min [facility] Work Phone: 01-17-2022 22:32-0400 Respiratory rate 16 /min [facility] Work Phone: 01-17-2022 22:32-0400 SaO2% (BldA) [Mass fraction] 98 % [facility] Work Phone: 01-17-2022 22:32-0400 Systolic blood pressure 160 mm[Hg] [facility] Work Phone: 01-17-2022 19:57-0400 Body height 185.[address] [facility] Work Phone: 01-17-2022 19:57-0400 Body mass index (BMI) [Ratio] 22.8 kg/m2 [facility] Work Phone: 01-17-2022 19:57-0400 Body temperature 97.6 [degF] [facility] Work Phone: 01-17-2022 19:57-0400 Body weight 78.[address] [facility] Work Phone: 12-03-2021 15:23-0400 Body weight 78.47 kg Linda Parish MD Work Phone: [facility] 12-03-2021 15:23-0400 Diastolic blood pressure 78 mm[Hg] Linda Parish MD Work Phone: [facility] 12-03-2021 15:23-0400 Heart rate 66 /min Linda Parish MD Work Phone: [facility] 12-03-2021 15:23-0400 Respiratory rate 16 /min Linda Parish MD Work Phone: [facility] 12-03-2021 15:23-0400 Systolic blood pressure 140 mm[Hg] Linda Parish MD Work Phone: [facility] 11-05-2021 11:08-0400 Body weight 78.93 kg Linda Parish MD Work Phone: [facility] 11-05-2021 11:08-0400 Diastolic blood pressure 68 mm[Hg] Linda Parish MD Work Phone: [facility] 11-05-2021 11:08-0400 Heart rate 72 /min Linda Parish MD Work Phone: [facility] 11-05-2021 11:08-0400 Systolic blood pressure 140 mm[Hg] Linda Parish MD Work Phone: [facility] 10-07-2021 10:00-0400 Diastolic blood pressure 66 mm[Hg] Alfredo Golias PT Work Phone: [facility] 10-07-2021 10:00-0400 Heart rate 66 /min Alfredo Golias PT Work Phone: [facility] 10-07-2021 10:00-0400 SaO2% (BldA) [Mass fraction] 98 % Alfredo Golias PT Work Phone: [facility] 10-07-2021 10:00-0400 Systolic blood pressure 134 mm[Hg] Alfredo Golias PT Work Phone: [facility] 09-16-2021 19:12-0400 Diastolic blood pressure 75 mm[Hg] [facility] Work Phone: 09-16-2021 19:12-0400 Heart rate 61 /min [facility] Work Phone: 09-16-2021 19:12-0400 Respiratory rate 16 /min [facility] Work Phone: 09-16-2021 19:12-0400 SaO2% (BldA) [Mass fraction] 97 % [facility] Work Phone: 09-16-2021 19:12-0400 Systolic blood pressure 140 mm[Hg] [facility] Work Phone: 09-16-2021 13:37-0400 Body mass index (BMI) [Ratio] 22.9 kg/m2 [facility] Work Phone: 09-16-2021 13:37-0400 Body temperature 97.5 [degF] [facility] Work Phone: 09-16-2021 13:37-0400 Body weight 78.[address] [facility] Work Phone: Encounters Encounter Date Encounter Type Care Provider Facility Start: 10-10-2024 End: 10-11-2024 Telephone encounter Nurse Warren [facility] Work Phone: Vascular Surgery Comment on above: Procedure (RLE bypas s revision) Start: 10-10-2024 End: 10-10-2024 ambulatory [facility] Facility:[facility] Start: 10-10-2024 End: 10-10-2024 Patient encounter procedure Christiana Arrington MD Work Phone: Vascular Surgery Comment on above: PAD (peripheral love ry disease) (Primary Dx) PVD (peripheral vasc ular disease) (Primary Dx) Start: 10-09-2024 ambulatory CHRISTIANA ARRINGTON Facility:1 [id number] Start: 10-09-2024 End: 10-09-2024 Subsequent hospital visit by physician Caterina [facility] Work Phone: Radiology CT Scan Comment on above: Peripheral vascular disease [I73.9] Start: 10-03-2024 End: 10-03-2024 ambulatory [facility] Facility:[facility] Start: 09-27-2024 End: 09-27-2024 ambulatory Linda Parish MD Work Phone: Pharm [facility] Comment on above: Allied Health Visit (Medication Adherence Outreach ) Start: 09-06-2024 End: 09-06-[address] Linda Parish MD Work Phone: [facility] Work Phone: Start: 09-06-2024 End: 09-06-[address] Malinda Calvert MD -Laboratory Work Phone: Start: 09-05-2024 End: 09-05-2024 Patient encounter procedure Christiana Arrington MD Work Phone: Vascular Surgery Comment on above: PAD (peripheral love ry disease) (Primary Dx) Peripheral vascular disease (Primary Dx) Start: 09-05-2024 End: 09-06-2024 ambulatory Malinda Calvert Facility:[facility] Start: 08-26-2024 End: 08-26-2024 ambulatory LINDA PARISH Facility:[facility] Start: 08-14-2024 End: 08-16-2024 Telephone encounter Choco Stevens MD Work Phone: [facility] Comment on above: Appointment Start: 08-09-2024 End: 08-09-2024 Subsequent hospital visit by physician Priya [facility] Work Phone: Radiology Comment on above: Rib pain [R07.81] Start: 08-09-2024 End: 08-09-2024 ambulatory [facility] Facility:[facility] Start: 08-09-2024 End: 08-09-2024 Patient encounter procedure Linda Parish MD Work Phone: [facility] [place] Comment on above: Rib pain (Primary Dx ) Start: 07-24-2024 End: 07-26-2024 Telephone encounter Linda Parish MD Work Phone: [facility] Comment on above: requesting note does not want to do jury duty Start: 06-14-2024 End: 06-14-2024 [facility] Facility:[facility] Start: 06-09-2024 End: 06-09-2024 [facility] Facility:[facility] Start: 05-30-2024 End: 05-30-2024 [facility] Facility:[facility] Start: 05-30-2024 End: 05-30-2024 Patient encounter procedure Christiana Arrington MD Work Phone: Vascular Surgery Comment on above: PAD (peripheral love ry disease) (HCC) (Primary Dx) Start: 05-30-2024 ambulatory [facility] Facility :[facility] Start: 05-30-2024 End: 05-30-2024 Subsequent hospital visit by physician Warren [facility] Comment on above: PAD (peripheral love ry disease) (HCC) [I73.9] PAD (peripheral love ry disease) (HCC) (Primary Dx) Start: 05-10-2024 End: 05-10-2024 Orders Only Christiana Arrington MD Work Phone: Vascular Surgery Comment on above: PAD (peripheral love ry disease) (HCC) (Primary Dx) Start: 05-09-2024 End: 05-09-2024 Patient encounter procedure Linda Parish MD Work Phone: [facility] [place] Comment on above: Mixed hyperlipidemia (Primary Dx); SVT (supraventricular tachycardia) (HCC); PVD (peripheral vascular disease) (HCC); PAD (peripheral artery disease) (HCC); Bypass graft stenosis, subsequent encounter; Ascending aorta dilatation (HCC); Gastroesophageal reflux disease, unspecified whether esophagitis present; History of GI bleed; Iron deficiency anemia, unspecified iron deficiency anemia type; Psoriasis; Depression with anxiety; Hyperviscosity Start: 05-09-2024 End: 05-09-2024 ambulatory [facility] Facility:[facility] Start: 05-01-2024 End: 05-01-2024 ambulatory [facility] Facility:[facility] Start: 04-24-2024 End: 04-24-2024 ambulatory Linda Parish MD Work Phone: [facility] [place] Comment on above: Feeling crust last 3 days Start: 04-17-2024 End: 04-17-2024 Office outpatient visit 25 minutes Leslie Ibrahim APRN.CNP Work Phone: Pulmonary Medicine Comment on above: Lung nodules (Primar y Dx) Start: 04-17-2024 End: 04-17-2024 ambulatory [facility] Facility:[facility] Start: 04-17-2024 End: 04-17-2024 Subsequent hospital visit by physician Caterina [facility] ([facility]) Work Phone: Radiology Comment on above: Lung nodules [R91.8] Start: 04-03-2024 End: 04-03-2024 Telephone encounter Chioma Bassett PA-C Work Phone: [facility] Comment on above: Orders Results Erroneous encounter- disregard Start: 03-31-2024 End: 03-31-2024 [facility] Facility:[facility] Start: 03-22-2024 End: 03-22-2024 Patient encounter procedure Choco Stevens MD Work Phone: [facility] Comment on above: History of creation of ostomy (HCC) (Primary Dx); Iron deficiency anemia due to chronic blood loss Start: 03-22-2024 End: 03-22-2024 ambulatory CHOCO GALLEGOS Facility:[facility] Start: 03-16-2024 End: 03-16-2024 Telephone encounter Linda Parish MD Work Phone: [facility] Comment on above: Results Orders Start: 03-15-2024 End: 03-15-2024 ambulatory LINDA PARISH Facility:[facility] Start: 03-15-2024 Physical examination LINDA PARISH [facility] Start: 03-08-2024 End: 03-08-2024 Telephone encounter Chioma Bassett PA-C Work Phone: [facility] Comment on above: Orders Start: 02-22-2024 End: 02-22-2024 Telephone encounter Linda Parish MD Work Phone: [facility] Comment on above: Medication Request Start: 02-22-2024 End: 02-22-2024 ambulatory Malinda [facility] Facility:[facility] Start: 02-14-2024 End: 02-14-2024 ambulatory CHRISTIANA ARRINGTON Facility:[facility] Start: 02-11-2024 End: 02-11-2024 Physical examination Christiana Arrington MD Work Phone: [facility] Start: 02-11-2024 End: 02-11-2024 Telephone encounter Christiana Arrington MD Work Phone: Vascular Surgery Comment on above: Procedure (RLE angio ) Preprocedural genera l physical examination (Primary Dx) Start: 01-28-2024 End: 01-28-2024 ambulatory LINDA PARISH Facility:[facility] Start: 01-28-2024 End: 01-28-2024 Patient encounter procedure Ambreen Man APRN.CNP Work Phone: Cardiology Comment on above: Nonrheumatic aortic valve insufficiency (Primary Dx); Mixed hyperlipidemia; SVT (supraventricular tachycardia) (HCC); Primary hypertension; Ascending aorta dilatation (HCC) Start: 01-26-2024 End: 01-26-2024 Patient encounter procedure Lawrence Maria MD Work Phone: [facility] Comment on above: Perforation of colon (HCC) (Primary Dx) Start: 01-26-2024 End: 01-26-2024 ambulatory LAWRENCE MARIA Facility:[facility] Start: 01-25-2024 End: 01-25-2024 Admission to same day surgery center Christiana Arrington MD Work Phone: Vascular Surgery Comment on above: PAD (peripheral love ry disease) (HCC) (Primary Dx) Start: 01-25-2024 End: 01-25-2024 Telemedicine consultation with patient Christiana Arrington MD Work Phone: Vascular Surgery Start: 01-25-2024 End: 01-25-2024 ambulatory LINDA PARISH Facility:[facility] Start: 01-21-2024 End: 01-21-2024 Orders Only Christiana Arrington MD Work Phone: Vascular Surgery Comment on above: PVD (peripheral vasc ular disease) (HCC) (Primary Dx) Schedule Surgery Start: 01-21-2024 End: 01-21-2024 ambulatory Audrey FRIEND Facility:[facility] Start: 01-19-2024 End: 01-19-2024 Office outpatient visit 25 minutes Huyen Green APRN.CNP Work Phone: Vascular Surgery Comment on above: Limb ischemia (Prima ry Dx); PAD (peripheral artery disease) (HCC) Start: 01-19-2024 End: 01-20-2024 Admission to same day surgery center Christiana Arrington MD Work Phone: Vascular Surgery Comment on above: Office visit Start: 01-19-2024 End: 01-20-2024 ambulatory Christiana Arrington MD Work Phone: Vascular Surgery Start: 01-07-2024 End: 01-07-2024 Patient encounter procedure Paulette Ott PA-C Work Phone: [facility] Comment on above: LLQ abdominal pain ( Primary Dx); Gastrointestinal hemorrhage, unspecified gastrointestinal hemorrhage type; History of creation of ostomy (HCC) Start: 01-07-2024 End: 01-07-2024 Telemedicine consultation with patient Paulette Ott PA-C Work Phone: [facility] Start: 01-07-2024 End: 01-07-2024 ambulatory PAULETTE OTT Facility:[facility] Start: 01-05-2024 End: 01-05-2024 Patient encounter procedure Linda Parish MD Work Phone: [facility] Comment on above: Migraine with aura, not intractable, without status migrainosus (Primary Dx); Raynaud's phenomenon without gangrene; Mixed hyperlipidemia; SVT (supraventricular tachycardia) (HCC); PVD (peripheral vascular disease) (HCC); Ascending aorta dilatation (HCC); Gastroesophageal reflux disease, unspecified whether esophagitis present; History of GI bleed; Iron deficiency anemia, unspecified iron deficiency anemia type; Polycythemia, secondary; Dizziness; Screening for prostate cancer Start: 01-05-2024 End: 01-05-2024 ambulatory LINDA PARISH Facility:[facility] Start: 01-04-2024 End: 01-04-2024 ambulatory LINDA Maynard МАРИНА [facility] [facility] Start: 12-13-2023 Telephone encounter Paulette anderson PA-C Work Phone: [facility] Start: 12-13-2023 End: 12-13-2023 ambulatory LINDA Maynard МАРИНА Facility:[facility] Start: 11-19-2023 Telephone encounter Lawrence crook MD Work Phone: [facility]PART[facility] Comment on above: Appointment Needs Re scheduled Start: 11-12-2023 Telephone encounter Paulette anderson PA-C Work Phone: [facility] Comment on above: Appointment Start: 11-12-2023 End: 11-12-2023 Patient encounter procedure Paulette Ott PA-C Work Phone: [facility] Comment on above: Gastrointestinal hem orrhage, unspecified gastrointestinal hemorrhage type (Primary Dx); History of creation of ostomy (HCC) Start: 11-12-2023 End: 11-12-2023 Telemedicine consultation with patient Paulette Ott PA-C Work Phone: [facility] Start: 11-12-2023 End: 11-12-2023 ambulatory PAULETTE TRU Facility:[facility] Start: 10-28-2023 End: 10-28-2023 Patient encounter procedure Ju Edwards DO Work Phone: Cardiology Comment on above: Coronary artery dise ase involving tanana coronary artery of tanana heart without angina pectoris (Primary Dx); SVT (supraventricular tachycardia) (HCC); Palpitations; Primary hypertension; Mixed hyperlipidemia; Nonrheumatic aortic valve insufficiency; Ascending aorta dilatation (HCC); PAD (peripheral artery disease) (HCC) Start: 10-28-2023 End: 10-28-2023 ambulatory LINDA [facility] Facility:[facility] Start: 10-15-2023 End: 10-15-2023 Patient encounter procedure Fredi Nunn APRN.CNP Work Phone: Hematology/Oncology Start: 10-15-2023 End: 10-15-2023 ambulatory Fredi Nunn APRN.CNP Work Phone: Hematology/Oncology Comment on above: Other iron deficienc y anemia (Primary Dx) Start: 10-13-2023 Telephone encounter Leslie Ibrahim APRN.CNP Work Phone: Pulmonology Comment on above: Results (LDCT ) Start: 10-11-2023 End: 10-11-2023 Office outpatient visit 25 minutes Leslie Ibrahim APRN.CNP Work Phone: Pulmonary Medicine Comment on above: Lung nodules (Primar y Dx); Encounter for screening for lung cancer; Former smoker Start: 10-11-2023 End: 10-11-2023 Subsequent hospital visit by physician Caterina [facility] (I-Stat) Work Phone: Radiology Comment on above: Encounter for screen ing for malignant neoplasm of lung in current smoker with 30 pack year history or greater [Z12.2, F17.200] Start: 10-06-2023 End: 10-06-2023 Patient encounter procedure Christiana Arrington MD Work Phone: Vascular Surgery Comment on above: PAD (peripheral love ry disease) (HCC); Bypass graft stenosis, subsequent encounter PAD (peripheral love ry disease) (HCC) (Primary Dx) Start: 10-05-2023 End: 10-05-2023 Patient encounter procedure Linda Parish MD Work Phone: Family [facility] [place] Comment on above: Gastrointestinal hem orrhage, unspecified gastrointestinal hemorrhage type (Primary Dx); PAD (peripheral artery disease) (HCC); Bypass graft stenosis, subsequent encounter; Anemia, unspecified type; Polycythemia, secondary; Hyperglycemia Start: 09-24-2023 End: 09-24-2023 ambulatory Treatment Rm 7 Sunny [facility] Work Phone: Hematology/Oncology Comment on above: Polycythemia, second janeth (Primary Dx); Hyperviscosity; Other iron deficiency anemia Start: 09-23-2023 ambulatory Linda Parish MD Work Phone: [facility] [place] Comment on above: Black stool Start: 09-20-2023 Orders Only Ilia Henson Work Phone: Hematology/Oncology Comment on above: Iron deficiency anem ia, unspecified iron deficiency anemia type (Primary Dx) Start: 09-14-2023 Get Medical Advice Linda Parish MD Work Phone: [facility] [place] Comment on above: Lipitor prescription refills Social Work Services Start: 09-10-2023 Telephone encounter Meir azar MD Work Phone: Hematology/Oncology Comment on above: Appointment Start: 09-09-2023 Telephone encounter Diana Oviedo RN He matology/Oncology Comment on above: Land Use Planner - O ther (Hospital Discharge ) Start: 09-03-2023 End: 09-03-2023 ambulatory Heather Mtz MD Work Phone: Gastroenterology Comment on above: Results Start: 09-03-2023 End: 09-03-2023 Patient encounter procedure Heather Mtz MD Work Phone: Gastroenterology Start: 09-02-2023 ambulatory Galina Smith RN Gastroe nterology Start: 09-02-2023 Patient encounter procedure Galina Smith RNfelt dyeing machine tender Start: 09-01-2023 Telephone encounter Financial Navigator Sunny Work Phone: Financial Services Comment on above: Benefits Investigati on Preparations For Pro cedures Start: 08-31-2023 Telephone encounter Linda Parish MD Work Phone: [facility] [place] Comment on above: Results; Need to go to ER (For low hgb) Start: 08-31-2023 End: 08-31-2023 Patient encounter procedure Linda Parish MD Work Phone: [facility] [place] Comment on above: Gastrointestinal hem orrhage, unspecified gastrointestinal hemorrhage type (Primary Dx); PAD (peripheral artery disease) (HCC); Bypass graft stenosis, subsequent encounter; Primary hypertension; Anemia, unspecified type; Anxiety; Raynaud's phenomenon without gangrene; Anxiety with depression Start: 08-30-2023 Telephone encounter Stephani art RN Work Phone: Hematology/Oncology Comment on above: Future Appointment Start: 08-27-2023 Telephone encounter Dominic Raymond [facility] Comment on above: PostOp Follow-up Follow Up Phone Call (In-Basket Call Back- All Clear, patient calling his Doctor now) Patient Update Start: 08-27-2023 End: 08-27-2023 ambulatory Meir Montalvo MD Work Phone: Hematology/Oncology Comment on above: Anemia, unspecified type (Primary Dx) Start: 08-27-2023 End: 08-27-2023 Patient encounter procedure Meir Montalvo MD Work Phone: Hematology/Oncology Start: 08-26-2023 Refill Linda Parish MD Work Phone: Pharmacy Comment on above: Refill Request Transition Of Care ( TCM Pharmacy-Hospital discharge 08/25/23) Appointment Medication Start: 08-23-2023 Telephone encounter Jaymie Robins cas, APRN.KEVIN Work Phone: [facility] Provider Adult Start: 08-23-2023 End: 08-23-2023 Evaluation and management of inpatient FAIZAN DERAS Facility:[facility] Start: 08-22-2023 End: 08-25-2023 Evaluation and management of inpatient LINDA PARISH Facility:[facility] Start: 08-21-2023 Non-patient / Non-visit Dr. Link Parish Work Phone: [facility] Work Phone: Start: 08-20-2023 Non-patient / Non-visit Dr. Link Parish Work Phone: [facility] Work Phone: Start: 08-19-2023 Non-patient / Non-visit Dr. Link Parish Work Phone: [facility] Start: 08-18-2023 End: 08-22-2023 Evaluation and management of inpatient Dr. Linda Parish Work Phone: [facility] Work Phone: Start: 08-18-2023 Non-patient / Non-visit Dr. Link Parish Work Phone: [facility] Work Phone: Start: 08-17-2023 End: 08-17-2023 Subsequent hospital visit by physician Xr [facility] Work Phone: Radiology Comment on above: SOB (shortness of br eat) [R06.02] Start: 08-17-2023 End: 08-17-2023 ambulatory Nurse Intm/Famp Triage [facility] Work Phone: Nurse Phone Triage Comment on above: Breathing Problem; F atigue Back in er Start: 08-17-2023 Telephone encounter Linda Parish MD Work Phone: [facility] Comment on above: Results (Needs to go to ER) Hospital [facility] Hospital Start: 08-17-2023 End: 08-17-2023 Patient encounter procedure Linda Parish MD Work Phone: [facility] Comment on above: Malaise (Primary Dx) ; Aortic valve insufficiency, etiology of cardiac valve disease unspecified; PVD (peripheral vascular disease) ([facility]); Primary hypertension; Gastroesophageal reflux disease, unspecified whether esophagitis present; Dizziness; Migraine with aura, not intractable, without status migrainosus; SVT (supraventricular tachycardia) ([facility]); Polycythemia, secondary; History of GI bleed; Fatigue, unspecified type; SOB (shortness of breath) Start: 07-29-2023 End: 07-29-2023 ambulatory MAXHO BATEMAN Facility:[facility] Start: 07-29-2023 Encounter for other preprocedural examination [facility] Start: 07-16-2023 End: 07-16-2023 ambulatory Max Bateman Work Phone: Hematology/Oncology Comment on above: Anemia, unspecified type (Primary Dx); Iron deficiency anemia, unspecified iron deficiency anemia type; PAD (peripheral artery disease) ([facility]) Start: 07-16-2023 End: 07-16-2023 Patient encounter procedure Maxho Bateman Work Phone[facility] Start: 07-14-2023 End: 07-14-2023 Patient encounter procedure Christiana Arrington MD Work Phone: Vascular Surgery Comment on above: PAD (peripheral love ry disease) ([facility]) (Primary Dx) Start: 07-13-2023 End: 07-13-[address] Linda Parish Work Phone: [facility] Gastroenterology Work Phone: Start: 07-13-2023 ambulatory Rosi Brower Work Phone: Vascular Surgery Comment on above: Intestinal camera Start: 07-02-2023 End: 07-02-[address] Linda Parish Work Phone: [facility] Gastroenterology Work Phone: Start: 07-01-2023 Telephone encounter Camille Conrad APRN.HEALTH SERVICE COORDINATOR Work Phone: [facility] Start: 07-01-2023 End: 07-01-2023 Office outpatient visit 25 minutes Camille Conrad APRN.HEALTH SERVICE COORDINATOR Work Phone: [facility] Comment on above: Peripheral artery di sease (HCC) (Primary Dx); Iron deficiency anemia due to chronic blood loss; Migraine without aura, intractable, without status migrainosus Start: 06-29-2023 End: 06-29-2023 Patient encounter procedure Rosi Alonso DO Work Phone: Vascular Surgery Comment on above: Peripheral arterial disease (HCC) (Primary Dx); S/P vascular surgery; Disruption or dehiscence of closure of skin, initial encounter; Neuropathic pain Start: 06-25-2023 Non-patient / Non-visit Dr. Link Parish Work Phone: [facility] Work Phone: Start: 06-24-2023 Non-patient / Non-visit Dr. Link Parish Work Phone: [facility] Start: 06-24-2023 Non-patient / Non-visit Dr. Link Parish Work Phone: [facility] Work Phone: Start: 06-23-2023 Non-patient / Non-visit Dr. Link Parish Work Phone: [facility] Start: 06-23-2023 Non-patient / Non-visit Dr. Link Parish Work Phone: [facility] Work Phone: Start: 06-22-2023 Non-patient / Non-visit Dr. Link Parish Work Phone: [facility] Start: 06-22-2023 Non-patient / Non-visit Dr. Link Parish Work Phone: [facility] Work Phone: Start: 06-22-2023 End: 06-22-2023 Non-patient / Non-visit Dr. Linda Parish Work Phone: [facility] Work Phone: Start: 06-21-2023 Telephone encounter Linda Parish MD Work Phone: [facility] Comment on above: Results Anemia, unspecified type (Primary Dx) Start: 06-21-2023 Non-patient / Non-visit Dr. Link Parish Work Phone: [facility] Work Phone: Start: 06-20-2023 Non-patient / Non-visit Dr. Link Parish Work Phone: [facility] Work Phone: Start: 06-20-2023 Non-patient / Non-visit Dr. Link Parish Work Phone: [facility] Start: 06-19-2023 End: 06-25-2023 Evaluation and management of inpatient [facility]. [facility] Work [facility]: Start: 06-19-2023 Non-patient / Non-visit Dr. Link Parish Work Phone: [facility] Work Phone: Start: 06-19-2023 End: 06-19-2023 Patient encounter procedure Linda Parish MD Work Phone: [facility] Comment on above: Melena (Primary Dx); Migraine with aura, not intractable, without status migrainosus; Raynaud's phenomenon without gangrene; PVD (peripheral vascular disease) (HCC); Primary hypertension; Bilateral carotid artery stenosis; Edema, unspecified type; Gastrointestinal hemorrhage, unspecified gastrointestinal hemorrhage type Start: 06-17-2023 End: 06-17-2023 ambulatory Max Bateman Work Phone: Hematology/Oncology Comment on above: Anemia, unspecified type (Primary Dx) Start: 06-17-2023 End: 06-17-2023 Patient encounter procedure Max Bateman Work Phone: [facility] Start: 06-10-2023 Telephone encounter Rosi Alonso DO Work Phone: Vascular Surgery Comment on above: Patient Update Start: 06-10-2023 Non-patient / Non-visit Dr. Link Parish Work Phone: [facility] Work Phone: Start: 06-09-2023 Non-patient / Non-visit Dr. Link Parish Work Phone: [facility] Start: 06-09-2023 Non-patient / Non-visit Dr. Link Parish Work Phone: [facility] Start: 06-09-2023 Non-patient / Non-visit Dr. Link Parish Work Phone: [facility] Work Phone: Start: 06-09-2023 End: 06-09-2023 Non-patient / Non-visit Dr. Linda Parish Work Phone: [facility] Work Phone: Start: 06-08-2023 Non-patient / Non-visit Dr. Link Parish Work Phone: [facility] Start: 06-08-2023 Non-patient / Non-visit Dr. Link Parish Work Phone: [facility] Start: 06-08-2023 Non-patient / Non-visit Dr. Link Parish Work Phone: [facility] Work Phone: Start: 06-08-2023 Non-patient / Non-visit Dr. Link Parish Work Phone: [facility] Start: 06-07-2023 End: 06-10-2023 Evaluation and management of inpatient Dr. Linda Parish Work Phone: [facility] Work Phone: Start: 06-07-2023 Non-patient / Non-visit Dr. Link Parish Work Phone: [facility] Start: 05-28-2023 Telephone encounter Meir azar MD Work Phone: Hematology/Oncology Comment on above: AVS 05/28/23 Start: 05-27-2023 End: 05-27-2023 Patient encounter procedure Rosi Alonso DO Work Phone: Vascular Surgery Comment on above: Disruption or dehisc ence of closure of skin, initial encounter (Primary Dx); S/P vascular surgery Start: 05-26-2023 ambulatory Rosi Brower Work Phone: Vascular Surgery Comment on above: Right leg swelling a nd drainage Start: 05-14-2023 End: 05-19-2023 [facility] Start: 04-28-2023 Evaluation and management of [facility] Start: 04-27-2023 End: 04-28-2023 Emergency department patient visit LINDA PARISH Facility:[facility] Start: 03-18-2023 End: 03-18-2023 ambulatory [facility] Work Phone: Start: 03-18-2023 End: 03-18-2023 Patient encounter procedure [facility] Work Phone: Start: 03-16-2023 End: 03-16-2023 ambulatory Giovani Triplett PT [facility] Physical Therapy Comment on above: Peripheral arterial disease (HCC) (Primary Dx) Start: 03-16-2023 End: 03-16-2023 Patient encounter procedure Rosi Alonso DO Work Phone: Vascular Surgery Comment on above: Peripheral arterial disease (HCC) (Primary Dx) Start: 03-10-2023 End: 03-10-2023 ambulatory [facility] Work Phone: Start: 03-10-2023 End: 03-10-2023 Patient encounter procedure [facility] [place] Work Phone: Start: 02-24-2023 End: 02-24-2023 Patient encounter procedure Linda Parish MD Work Phone: [facility] Comment on above: PVD (peripheral vasc ular disease) (HCC) (Primary Dx); Encounter for immunization; Migraine with aura, not intractable, without status migrainosus; Hypnic jerks; Primary hypertension; Mixed hyperlipidemia; Raynaud's phenomenon without gangrene; Palpitations; SVT (supraventricular tachycardia); Angina pectoris (HCC); Polycythemia, secondary; Alcohol dependence, daily use (HCC); Colostomy in place (HCC); Anxiety with depression; Tobacco use Start: 02-23-2023 End: 02-23-2023 ambulatory Giovani Triplett [facility] Physical [facility] Comment on above: Peripheral arterial disease (HCC) (Primary Dx) Start: 02-11-2023 End: 02-11-2023 Patient encounter procedure Bruno Parra MD Work Phone: General Surgery Comment on above: Perforation of intes jeremy (HCC) (Primary Dx); Diverticulitis; PVD (peripheral vascular disease) (HCC) Start: 02-10-2023 End: 02-10-2023 Patient encounter procedure Rosi Alonso DO Work Phone: Vascular Surgery Comment on above: Peripheral arterial disease (HCC) (Primary Dx) Start: 02-09-2023 Refill Linda Parish MD Work Phone: [facility] Comment on above: Refill Request Start: 02-01-2023 Telephone encounter Meir azar MD Work Phone: Hematology/Oncology Comment on above: Appointment Start: 01-29-2023 Orders Only Ilia Villavicencio Sanjeev Henson Work Phone: Hematology/Oncology Comment on above: Polycythemia, second janeth (Primary Dx) Start: 01-13-2023 End: 01-13-2023 Patient encounter procedure Rosi Alonso DO Work Phone: Vascular Surgery Comment on above: Peripheral arterial disease (HCC) (Primary Dx); Acute post-operative pain Start: 01-11-2023 End: 01-11-2023 Patient encounter procedure Linda Parish MD Work Phone: [facility] [place] Comment on above: Acute occlusion of s uperficial femoral artery due to thrombosis (HCC) (Primary Dx); PVD (peripheral vascular disease) (HCC); Aortic valve insufficiency, etiology of cardiac valve disease unspecified; Mixed hyperlipidemia; Primary hypertension; Polycythemia, secondary; Dark stools Start: 01-01-2023 Telephone encounter Damon Guzman DO Work Phone: Cardiology Comment on above: Appointment (New pt) Start: 12-29-2022 Admission to [facility] Bruno Parra MD Work Phone: General Surgery Comment on above: Vascular surgery Start: 12-29-2022 ambulatory Bruno pearson MD Work Phone: [facility] Start: 12-25-2022 Telephone encounter Linda Parish MD Work Phone: Family Medicine [place] Comment on above: Erroneous encounter- disregard Start: 11-06-2022 End: 11-06-2022 Subsequent hospital visit by physician Ct Prep [facility] Cat Scan Comment on above: Left lower quadrant pain [R10.32] Start: 11-05-2022 Telephone encounter Bruno Prara MD Work Phone: General Surgery Comment on above: Lab Orders Start: 10-27-2022 End: 10-27-2022 Patient encounter procedure Bruno Parra MD Work Phone: General Surgery Comment on above: Left lower quadrant abdominal pain (Primary Dx); Perforation of colon (HCC); Colostomy in place (HCC) Start: 10-07-2022 Admission to [facility] Linda Parish MD Work Phone: Family Medicine [place] Comment on above: Diverticulitis surge ry Start: 10-07-2022 ambulatory Linda Parish MD Work Phone: [facility] Start: 09-10-2022 End: 09-10-2022 Patient encounter procedure Bruno Parra MD Work Phone: General Surgery Comment on above: Perforation of colon (HCC) (Primary Dx); Colostomy in place (HCC); Diverticulitis Start: 09-09-2022 Telephone encounter Nanci Ingram APRN.SIGNAL SUPERVISOR Work Phone: Pulmonary Medicine Comment on above: Results (LDCT) Results Start: 09-07-2022 End: 09-07-2022 Patient encounter procedure Nanci Ingram APRN.SIGNAL SUPERVISOR Work Phone: Pulmonary Medicine Comment on above: Encounter for screen ing for lung cancer (Primary Dx); Cigarette smoker; Lung nodules Start: 09-07-2022 End: 09-07-2022 Subsequent hospital visit by physician Caterina [facility] ([facility]-Stat) Work Phone: Radiology Comment on above: Tobacco use [Z72.0] Start: 09-02-2022 End: 09-02-2022 Patient encounter procedure Rebecca Santana PA-C Work Phone: Orthopaedics Comment on above: Dupuytren's disease of palm (Primary Dx) Start: 09-01-2022 End: 09-01-2022 Patient encounter procedure Linda Parish MD Work Phone: [facility] [place] Comment on above: Pruritus (Primary Dx ); Psoriasis; Colostomy in place (HCC); Diverticulitis Start: 08-19-2022 Telephone encounter Linda Parish MD Work Phone: [facility] [place] Comment on above: Ostomy supply order Start: 08-17-2022 End: 08-17-2022 ambulatory Treatment Rm 12 Sunny [facility] Work Phone: Hematology/Oncology Comment on above: Polycythemia, second janeth (Primary Dx); Hyperviscosity Start: 08-17-2022 End: 08-17-2022 [facility] Work Phone: Start: 08-14-2022 Telephone encounter Linda Parish MD Work Phone: [facility] Comment on above: Forms Start: 08-11-2022 End: 08-11-2022 Patient encounter procedure Bruno Parra MD Work Phone: General Surgery Comment on above: Perforation of colon (HCC); Colostomy in place (HCC); Diverticulitis Start: 07-28-2022 Telephone encounter Joy RAMIREZC Work Phone: [facility] Comment on above: Patient Update Start: 07-27-2022 Refill Rebecca RAMIREZC Work Phone: [facility] Comment on above: Refill Request Start: 07-23-2022 ambulatory Linda Parish MD Work Phone: [facility] Comment on above: Diverticulitis Start: 07-18-2022 Refill Rebecca FRIEND-C Work Phone: [facility] Comment on above: Refill Request Start: 07-10-2022 Refill Rebecca FRIEND-C Work Phone: [facility] Comment on above: Refill Request Start: 07-08-2022 End: 07-08-2022 Patient encounter procedure Rebecca FRIEND-C Work Phone: Orthopaedics Comment on above: Dupuytren's disease of palm (Primary Dx) Start: 07-08-2022 End: 07-08-2022 ambulatory Geraldine Weston OT/L Work Phone: [facility] Occupational Therapy Comment on above: Pain of right hand ( Primary Dx); Dupuytren's disease of palm of right hand Start: 07-03-2022 Refill Rebecca Santana PA-C Work Phone: [facility] Comment on above: Refill Request Start: 06-30-2022 End: 06-30-2022 ambulatory Geraldine Weston OT/L Work Phone: [facility] Occupational Therapy Comment on above: Dupuytren's disease of palm; Dupuytren's disease of palm of right hand; Pain of right hand Start: 06-29-2022 Refill Rebecca Santana PA-C Work Phone: [facility] Comment on above: Refill Request Start: 06-25-2022 End: 06-25-2022 ambulatory [facility] Facility:[facility] Start: 06-08-2022 End: 06-08-2022 ambulatory Mis Johnson APRN.CNP Work Phone: Pre Anesthesia Comment on above: PACC Pre-op evaluation (P rimary Dx); Primary hypertension; SVT (supraventricular tachycardia) (HCC); Mixed hyperlipidemia; Gastroesophageal reflux disease, unspecified whether esophagitis present; Polycythemia, secondary; Aortic valve insufficiency, etiology of cardiac valve disease unspecified; Tobacco use Start: 06-08-2022 E-mail encounter fro m caregiver Mis Johnson APRN.CNP Work Phone: [facility] Start: 06-08-2022 End: 06-08-2022 Admission to [address] [facility] Start: 06-08-2022 End: 06-08-2022 Preprocedural examination done Pac 2 Pre Anesthesia Start: 05-27-2022 End: 05-27-2022 Patient encounter procedure Smiley Oliveira MD Work Phone: [facility] Comment on above: SVT (supraventricula r tachycardia) (HCC) (Primary Dx); Primary hypertension; Angina pectoris (HCC); Raynaud's phenomenon without gangrene Start: 05-18-2022 ambulatory Inocencio Gonzalez MD Work Phone: Orthopaedics Comment on above: Left knee pain Start: 05-11-2022 ambulatory Linda Parish MD Work Phone: [facility] Comment on above: Question regarding U RINALYSIS WITH MICROSCOPIC Start: 05-07-2022 ambulatory Randall Shah MD, PhD Work Phone: Orthopaedics Start: 05-01-2022 End: 05-01-2022 Patient encounter procedure Linda Parish MD Work Phone: [facility] Comment on above: Abdominal pain, unsp ecified abdominal location (Primary Dx) Start: 03-16-2022 End: 03-16-2022 Patient encounter procedure Randall Shah MD, PhD Work Phone: Orthopaedics Comment on above: Dupuytren's disease of palm (Primary Dx) Start: 03-12-2022 End: 03-12-2022 ambulatory [facility] Work Phone: Start: 03-12-2022 End: 03-12-2022 Patient encounter procedure [facility]-Radiology, [facility] Start: 02-26-2022 End: 02-26-2022 Patient encounter procedure Inocencio Gonzalez MD Work Phone: Orthopaedics Comment on above: Dupuytren's disease of palm (Primary Dx) Start: 02-05-2022 End: 02-05-2022 Patient encounter procedure Linda Parish MD Work Phone: [facility] Comment on above: Diverticulitis (Prim janeth Dx); Need for influenza vaccination; Encounter for immunization Start: 01-30-2022 End: 01-30-2022 Patient encounter procedure Linda Parish MD Work Phone: [facility] Comment on above: Diverticulitis (Prim janeth Dx); Leukocytosis, unspecified type Start: 01-28-2022 End: 01-28-2022 Patient encounter procedure Linda Parish MD Work Phone: [facility] Comment on above: Diverticulitis (Prim janeth Dx) Start: 01-17-2022 End: 01-17-2022 Emergency department patient visit [facility]-Emergency Department Start: 12-04-2021 End: 12-04-2021 Patient encounter procedure [facility] [place] Start: 12-03-2021 End: 12-03-2021 Patient encounter procedure Linda Parish MD Work Phone: [facility] Comment on above: Primary hypertension (Primary Dx); Polycythemia, secondary; Raynaud's phenomenon without gangrene; Gastroesophageal reflux disease, unspecified whether esophagitis present; Benign paroxysmal positional vertigo of right ear; Migraine with aura, not intractable, without status migrainosus Start: 11-13-2021 End: 11-13-2021 Patient encounter procedure [facility]-Radiology, [facility] Start: 11-06-2021 End: 11-06-2021 Patient encounter procedure GERRY OLSON MD [facility] Start: 11-05-2021 End: 11-05-2021 Patient encounter procedure Linda Parish MD Work Phone: [facility] Comment on above: Nonrheumatic aortic valve insufficiency (Primary Dx); Raynaud's phenomenon without gangrene; Mixed hyperlipidemia; SVT (supraventricular tachycardia) (HCC); Polycythemia, secondary; Hyperviscosity; Bilateral carotid artery stenosis Start: 10-07-2021 End: 10-07-2021 ambulatory Alfredo Golias PT Work Phone: [facility] Comment on above: Benign paroxysmal po sitional vertigo, unspecified laterality; Benign paroxysmal positional vertigo of right ear Start: 09-16-2021 End: 09-16-2021 Emergency department patient visit [facility]-Emergency Department Start: 09-05-2021 End: 09-05-2021 ambulatory Treatment Rm 3 [facility] Work Phone: Hematology/Oncology Comment on above: Polycythemia, second janeth (Primary Dx) Start: 07-22-2021 End: 07-22-2021 Subsequent hospital visit by physician X[facility] Work Phone: Radiology Comment on above: Rib pain on left ruiz e [R07.81] Start: 06-24-2021 End: 06-24-2021 Subsequent hospital visit by physician Ct [facility] (I-Stat) Work Phone: Radiology Comment on above: Tobacco use [Z72.0] Procedures Date Procedure Procedure Detail Performing Clinician Start: 09-06-2024 Methadone measurement, urine Dr. Linda Parish MD Work Phone: Start: 09-06-[address] Linda Parish MD Work Phone: Comment on above: Test Ordered: [id number] A68-Ymtgnn+S L8Avecpmsobpip Screen, Urine Negative ng/mL UI Reference Range: Wioyyp=937Xaxshwryzhi test includes Amphetamine and Methamphetamine.Barbiturates Negative ng/mL UI Reference Range: Kwzhts=081Rwcvpaglccommtu Negative ng/mL UI Reference Range: Liqgen=730Tpqulcj (Metab.), Urine Negative ng/mL UI Reference Range: Onglad=604Cebnpnh Note: ng/mL UI See Final Results Reference Range: Metkfd=697Jsrxgi test includes Codeine, Morphine, Hydromorphone, Hydrocodone.Opiates Negative UI Reference Range: Ufbqjh=793Dvfxrr test includes Codeine, Morphine, Hydromorphone, Hydrocodone.6-Acetylmorphine, Urine Negative ng/mL UI Reference Range: Cutoff=10Oxycodone/Oxymorphone, Urine Note: ng/mL UI See Final Results Reference Range: Tbeeha=320Neqt includes Oxycodone and OxymorphoneOxycodone/Oxymorph Positive [A ] UI Reference Range: Nzeato=915Tziy includes Oxycodone and OxymorphoneOxycodone Positive [A ] UI Reference Range: .Oxycodone Conf, MS, UR 937 ng/mL UI Reference Range: Tmyogg=359Tllsnfrpocc Positive [A ] UI Reference Range: .Oxymorphone Conf, MS, UR 220 ng/mL UI Reference Range: Pwdjis=698SFA, Urine Negative ng/mL UI Reference Range: Cutoff=25Methadone Screen, Urine Negative ng/mL UI Reference Range: Zhoysr=456Fkdclufmpspr, Urine Negative ng/mL UI Reference Range: Hbkbpi=872Plnmpvin, Urine Negative ng/mL UI Reference Range: Cutoff=2.0Test includes Fentanyl and NorfentanylThis test was developed and its performance characteristicsdetermined by [facility]. It has not been cleared orapproved by the Food and Drug Administration.Tramadol Negative ng/mL UI Reference Range: Wilrpx=842Vwtvhltertvpk, Urine Negative ng/mL UI Reference Range: Cutoff=10Creatinine, Urine 136.4 mg/dL UI Reference Range: 20.0-300.0pH, Urine 5.8 UI Reference Range: 4.5-8.9Performed at: - [facility] [id number] [place], [place] [id number] Director: Carolyne Boswell PhD, Phone: [phone] at: [address] [id number] Director: Lopez John PhD, Phone: [phone] Start: 05-30-2024 End: 05-30-2024 Non-invas physiologic std extremity art 2 level Christiana Arrington MD Work Phone: Start: 05-01-2024 Lipid 1996 panel - Serum or Plasma Ruben Parish MD Work Phone: Start: 04-17-2024 Ct thorax w/o contrast material Leslie Ibrahim 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 Linda Parish Work Phone: Start: 08-17-2023 Radiologic exam chest 2 views Linda Parish MD Work Phone: Start: 08-17-2023 Measurement of occult blood in stool specimen using immunoassay Dr. Linda Parish Work Phone: Start: 08-17-2023 Ecg routine ecg w/least 12 lds i&r only Linda Parish MD Work Phone: Start: 06-24-2023 End: 06-24-[address] Linda Parish Work Phone: Start: 06-22-[address] Linda prescott Work Phone: Start: 06-19-2023 Measurement of occult blood in stool specimen using immunoassay Dr. Linda Parish Work Phone: Start: 06-10-2023 Colonoscopy Linda Parish MD Work Phone: Start: 06-09-[address] Linda Parish Work Phone: Start: 06-08-[address] Linda prescott Work Phone: Start: 06-07-2023 CT of abdominal aorta with contrast Dr. Linda Parish Work Phone: Start: 06-07-2023 Plain chest X-ray Dr. Linda Parish Work Phone: Start: 06-07-2023 Computed tomography of abdomen and pelvis with intravenous contrast Dr. Linda Parish Work Phone: Start: 06-07-2023 Measurement of occult blood in stool specimen using immunoassay Dr. Linda Parish Work Phone: Start: 05-27-2023 Culture bacterial any source anaerobic iso&id Rosi Alonso DO Work Phone: Start: 05-14-2023 Antibody screen [facility] Comment on above: Order Comment: Specimen Type: BLOOD SPEC IMENOrdering Facility: [facility] Address: [address] [place] [address] Performed By: #### T HIRAL ####JAKE BLOOD BANKCLIA [id number] [address] [place] Start: 04-28-2023 Antibody screen [facility] Comment on above: Order Comment: Specimen Type: BLOOD SPEC IMENOrdering Facility: [facility] Address: [address] [place] [address] Performed By: #### T [facility] ####[facility]LOOD [facility]BR[facility] [id number] [place] [address] [place] Start: 02-24-2023 INFLUENZA VACCINE, AGE 6 MO - 64 YR, QUADRIVALENT (AFLURIA, FLULAVAL, FLUZONE) Linda Parish MD Work Phone: Start: 02-22-2023 Lipid 1996 panel - Serum or Plasma Giovani Triplett PT Start: 09-07-2022 CT LUNG SCREEN WO RYAN Ingram APARTMENT MAINTENANCE WORKER.SIGNAL SUPERVISOR Work Phone: Start: 05-27-2022 Ecg routine ecg w/least 12 lds w/i&r Smiley Oliveira MD Work Phone: Start: 03-12-2022 Radiologic examination of knee Start: 02-05-2022 [employer] COVID-19 BIVALENT BOOSTER VACCINE, AGE 12+ YR Linda Parish MD Work Phone: Start: 02-05-2022 INFLUENZA VACCINE QUADRIVALENT 6 MO - 64 YRS IM Linda Parish MD Work Phone: Start: 01-17-2022 Computed tomography of abdomen and pelvis with intravenous contrast Start: 11-13-2021 X-ray of cervical spine Start: 09-16-2021 CT of head without contrast Start: 09-03-2021 Adult depression screening assessment Treatment Wstr Work Phone: Start: 07-22-2021 Radex ribs uni w/posteroant ch minimum 3 views Shantelle Campbell APARTMENT MAINTENANCE WORKER.SIGNAL SUPERVISOR Work Phone: Start: 06-24-2021 CT LUNG SCREEN WO RYAN Ingram APARTMENT MAINTENANCE WORKER.SIGNAL SUPERVISOR Work Phone: Start: 04-16-2021 Colonoscopy Treatment Wstr Work Phone: Start: 04-09-2021 Lipid 1996 panel - Serum or Plasma Malorie Alonso DO Work Phone: H/O: surgery History of creation of ostomy (HCC) Paulette Ott PA-C Work Phone: H/O: surgery History of creation of ostomy (HCC) Paulette Ott PA-C Work Phone: H/O: surgery History of creation of ostomy (HCC) Choco Stevens MD Work Phone: Plan of Treatment Date Care Activity Detail Author Start: 2036 RSV Vaccine (1 - 1-dose 75+ series) RSV Vaccine (1 - 1-dose 75+ series) [facility] Start: 04-04-2031 Urine microalbumin profile [facility] Start: 05-01-2029 Lipid panel Lipid Screening [facility] Start: 03-31-2029 Lipid panel Lipid Screening [facility] Start: 03-15-2029 Lipid panel Lipid Screening [facility] Start: 03-15-2029 Prostate specific antigen measurement Prostate Cancer Screening Discussion [facility] Start: 06-24-2028 Screening for malignant neoplasm of colon [facility] Start: 06-10-2028 Screening for malignant neoplasm of colon [facility] Start: 02-23-2028 Lipid 1996 panel - Serum or Plasma Lipid Screening [facility] Start: 02-23-2028 Lipid panel Lipid Screening [facility] Start: 03-15-2027 Diabetes Screening Diabetes Screening [facility] Start: 02-13-2027 Diabetes Screening Diabetes Screening [facility] Start: 01-03-2027 Diabetes Screening Diabetes Screening [facility] Start: 2026 PNEUMOCOCCAL (3 - PPSV23 if available, else PCV20) PNEUMOCOCCAL (3 - PPSV23 if available, else PCV20) [facility] Start: 2026 PNEUMOCOCCAL (3 - PPSV23 or PCV20) PNEUMOCOCCAL (3 - PPSV23 or PCV20) [facility] Start: 2026 Pneumococcal vaccination Pneumococcal Vaccine (3 - PPSV23 or PCV20) [facility] Start: 12-12-2026 Diabetes Screening Diabetes Screening [facility] Start: 09-23-2026 Diabetes Screening Diabetes Screening [facility] Start: 09-03-2026 Diabetes Screening Diabetes Screening [facility] Start: 08-31-2026 Diabetes Screening Diabetes Screening [facility] Start: 08-30-2026 Diabetes Screening Diabetes Screening [facility] Start: 08-26-2026 Diabetes Screening Diabetes Screening [facility] Start: 08-24-2026 Diabetes Screening Diabetes Screening [facility] Start: 08-16-2026 Diabetes Screening Diabetes Screening [facility] Start: 06-30-2026 Diabetes Screening Diabetes Screening [facility] Start: 05-28-2026 Diabetes Screening Diabetes Screening [facility] Start: 04-16-2026 Colonoscopy COLONOSCOPY [facility] Start: 04-16-2026 COLORECTAL CANCER SCREENING COLORECTAL CANCER SCREENING [facility] Start: 04-16-2026 Screening for malignant neoplasm of colon [facility] Start: 04-09-2026 Lipid 1996 panel - Serum or Plasma Lipid Screening [facility] Start: 04-09-2026 LIPID SCREEN LIPID SCREEN [facility] Start: 02-25-2026 Diabetes Screening Diabetes Screening [facility] Start: 09-25-2025 PROSTATE CANCER SCREENING DISCUSSION PROSTATE CANCER SCREENING DISCUSSION [facility] Start: 09-25-2025 Prostate specific antigen measurement Prostate Cancer Screening Discussion [facility] Start: 09-01-2025 DIABETES SCREEN DIABETES SCREEN [facility] Start: 09-01-2025 Diabetes Screening Diabetes Screening [facility] Start: 08-10-2025 DIABETES SCREEN DIABETES SCREEN [facility] Start: 08-09-2025 Annual PCP Team Chronic Disease Visit Annual PCP Team Chronic Disease Visit [facility] Start: 07-24-2025 DIABETES SCREEN DIABETES SCREEN [facility] Start: 05-13-2025 DIABETES SCREEN DIABETES SCREEN [facility] Start: 05-09-2025 Annual PCP Team Chronic Disease Visit Annual PCP Team Chronic Disease Visit [facility] Start: 05-09-2025 RSV Vaccine (1 - Risk 60-74 years 1-dose series) RSV Vaccine (1 - Risk 60-74 years 1-dose series) [facility] Comment on above: Postponed from 2021 (Declined at t his time) Start: 05-09-2025 Shingrix Vaccine (1 of 2) Shingrix Vaccine (1 of 2) [facility] Comment on above: Postponed from 12/17/2011 (Declined at t his time) Start: 04-23-2025 End: 04-23-2025 Patient encounter procedure Radiology Comment on above: Lung nodules [R91.8] Start: 04-17-2025 Screening for malignant neoplasm of lung Lung Cancer Screening [facility] Start: 10-28-2025 Pneumococcal Vaccine: 50+ (3 of 3 - PCV20 or PCV21) Pneumococcal Vaccine: 50+ (3 of 3 - PCV20 or PCV21) [facility] Start: 01-28-2025 DIABETES SCREEN DIABETES SCREEN [facility] Start: 01-04-2025 Annual PCP Team Chronic Disease Visit Annual PCP Team Chronic Disease Visit [facility] Start: 01-04-2025 Covid-19 Vaccine ( season) Covid-19 Vaccine ( season) [facility] Comment on above: Postponed from 01/02/2024 (Declined at t his time) Start: 01-04-2025 Covid-19 Vaccine ( season) Covid-19 Vaccine ( season) [facility] Comment on above: Postponed from 01/02/2024 (Declined at t his time) Start: 01-01-2025 Influenza vaccination Influenza Vaccine (Season Ended) [facility] Start: 11-13-2024 End: 11-13-2024 Patient encounter procedure 11/13/2024 2:20 PM EDT Office Visit Family Medicine [facility] [address] [place] [address] Linda Parish MD [address] [place] [address] Medicare Wellness [facility] [place] Comment on above: Medicare Wellness Start: 11-09-2024 End: 11-09-2024 Admission to same day surgery center 11/09/2024 7:30 AM EDT - 11/09/2024 3:50 PM EDT Surgery [facility] Operating Room [address] [place] [address] [place] [address] [place] [address] REVISION BYPASS GRAFT FEMORAL POPLITEAL [facility] Operating Room Comment on above: REVISION BYPASS GRAFT FEMORAL POPLITEAL Start: 11-09-2024 End: 11-09-2024 Revj lxtr artl byp opn vein patch angiop REVISION BYPASS GRAFT FEMORAL POPLITEAL PVD (peripheral vascular disease) 11/09/2024 7:30 AM EDT [facility] OR Start: 11-09-2024 Subsequent hospital visit by physician 11/09/2024 7:30 AM EDT Hospital Encounter [facility] Operating Room [address] [place] [address] [place] [address] [place], [place] [id number] PVD (peripheral vascular disease) [I73.9] [facility] Operating [facility] Comment on above: PVD (peripheral vascular disease) [I73.9 ] Start: 11-05-2024 DIABETES SCREEN DIABETES SCREEN [facility] Start: 10-30-2024 Influenza vaccination Influenza Vaccine (#1) [facility] Comment on above: Postponed from 01/02/2024 (Declined at t his time) Start: 10-18-2024 End: 10-18-2024 Anesthesia consultation 10/18/2024 3:20 PM EDT PAT Pre Anesthesia [address] [place] [address] 1, Pacc [place] [address] [place] [address] [facility] 11/09/2024 Pre Anesthesia Comment on above: [facility] 11/09/2024 Start: 10-16-2024 End: 10-16-2024 Patient encounter procedure Radiology Comment on above: Lung nodules [R91.8] Start: 10-10-2024 Screening for malignant neoplasm of lung Lung Cancer Screening [facility] Start: 10-10-2024 End: 10-10-2024 Patient encounter procedure 10/10/2024 10:45 AM EDT Office Visit Vascular Surgery [address] [place] [address] [place] [address] [place], [place] [id number] follow up Vascular Surgery Comment on above: follow up Start: 10-09-2024 End: 10-09-2024 Patient encounter procedure 10/09/2024 4:15 PM EDT Appointment Radiology CT Scan [address] [place] [address] CTA ABD/PEL WITH RUNOFF Radiology CT Scan Comment on above: CTA ABD/PEL WITH RUNOFF Start: 10-04-2024 Annual PCP Team Chronic Disease Visit Annual PCP Team Chronic Disease Visit [facility] Start: 10-03-2024 End: 10-03-2024 Patient encounter procedure Vascular Surgery Comment on above: Peripheral vascular disease [I73.9] Start: 09-15-2024 End: 09-15-2024 Patient encounter procedure 09/15/2024 11:15 AM EDT Office Visit [facility] [address] [place] [address] Choco Stevens MD [address] [place] [address] 6 mth [facility] Comment on above: 6 mth Start: 09-06-2024 End: 09-06-2024 Patient encounter procedure 09/06/2024 11:15 AM EDT [facility] [address] [place] [address] Choco Stevens MD [address] [place] [address] 6 mth [facility] Comment on above: 6 mth Start: 09-05-2024 End: 09-05-2024 ambulatory 09/05/2024 3:30 PM EDT Results Only [facility] COUNTS INCLUDE [address] BEDS AT THE [facility] Draw Station [address] [facility] [place] [address] [facility] Station Start: 09-05-2024 End: 12-05-2024 Creatinine and Glomerular filtration rate.predicted panel - Serum, Plasma or Blood CREATININE BLD Lab Routine Peripheral vascular disease Expected: 09/05/2024, Expires: 12/05/2024 [facility] Comment on above: Expected: 09/05/2024, Expires: Start: 09-05-2024 DIABETES SCREEN DIABETES SCREEN [facility] Start: 09-05-2024 End: 09-05-2024 Patient encounter procedure Vascular Lab Comment on above: 3 month follow up Start: 08-30-2024 Annual PCP Team Chronic Disease Visit Annual PCP Team Chronic Disease Visit [facility] Start: 08-16-2024 Annual PCP Team Chronic Disease Visit Annual PCP Team Chronic Disease Visit [facility] Start: 08-16-2024 BP Controlled (<130/80) BP Controlled (<130/80) [facility] Start: 08-07-2024 End: 08-07-2024 Patient encounter procedure 08/07/2024 3:00 PM EDT Office Visit Cardiology [address] [address] Ju Edwards DO [address] [place] [address] 6 month follow up Cardiology Comment on above: 6 month follow up Start: 06-30-2024 BP Controlled (<130/80) BP Controlled (<130/80) [facility] Start: 06-29-2024 BP Controlled (<130/80) BP Controlled (<130/80) [facility] Start: 06-19-2024 Annual PCP Team Chronic Disease Visit Annual PCP Team Chronic Disease Visit [facility] Start: 06-09-2024 End: 06-09-2024 ambulatory 06/09/2024 9:00 AM EST Results Only [facility] Lepe COUNTS INCLUDE 234 BEDS AT THE [facility] Laboratory [address] [place] [address] CBC/IRON STUDIES Dontak[facility]igh [place]olewn COUNTS INCLUDE 234 BEDS AT THE [facility] Laboratory Comment on above: CBC/IRON STUDIES Start: 05-30-2024 End: 05-30-2024 Patient encounter procedure 05/30/2024 9:30 AM EST Office Visit Vascular Surgery [address] [facility] [place] [address] [place] [address] [place], [place] [id number] PVD FOLLOW UP Vascular Surgery Comment on above: PVD FOLLOW UP Start: 05-30-2024 End: 05-30-2024 Patient encounter procedure Vascular Testing Comment on above: PVD FOLLOW UP Start: 05-22-2024 Annual PCP Team Chronic Disease Visit Annual PCP Team Chronic Disease Visit [facility] Start: 05-09-2024 End: 05-09-2024 Patient encounter procedure 05/09/2024 2:20 PM EST Office Visit Family Medicine [facility] [address] [place] [address] Linda Parish MD [address] [place] [address] 4 month follow up Family [facility] Comment on above: 4 month follow up Start: 05-04-2024 End: 08-03-2024 Hepatic function 2000 panel - Serum or Plasma HEPATIC FUNCTION PNL Lab Routine Mixed hyperlipidemia Expected: 05/04/2024, Expires: 08/03/2024 [facility] Work Phone: Comment on above: Expected: 05/04/2024, Expires: Start: 05-04-2024 End: 08-03-2024 Lipid 1996 panel - Serum or Plasma LIPID PANEL BASIC Lab Routine Mixed hyperlipidemia Expected: 05/04/2024, Expires: 08/03/2024 [facility] Comment on above: Expected: 05/04/2024, Expires: Start: 05-03-2024 Medicare Advantage Annual Wellness Visit Medicare Advantage Annual Wellness Visit [facility] Start: 04-29-2024 End: 04-29-2024 ambulatory 04/29/2024 10:30 AM EST Results Only [place] COUNTS INCLUDE 234 BEDS AT THE [facility] Draw Station [address] [place] [address] [address] [place] COUNTS INCLUDE 234 BEDS AT THE [facility] Draw Station Start: 04-27-2024 End: 07-27-2024 Hepatic function 2000 panel - Serum or Plasma HEPATIC FUNCTION PNL Lab Routine Mixed hyperlipidemia Expected: 04/27/2024, Expires: 07/27/2024 [facility] Work Phone: Comment on above: Expected: 04/27/2024, Expires: Start: 04-27-2024 End: 07-27-2024 Lipid 1996 panel - Serum or Plasma LIPID PANEL BASIC Lab Routine Mixed hyperlipidemia Expected: 04/27/2024, Expires: 07/27/2024 [facility] Comment on above: Expected: 04/27/2024, Expires: Start: 04-27-2024 End: 04-27-2024 ambulatory 04/27/2024 9:30 AM EST Results Only [facility] Draw Station [address] [facility] [place] [address] [facility] Start: 04-24-2024 End: 07-24-2024 CBC panel - Blood by Automated count COMPLETE BLOOD COUNT Lab Routine Iron deficiency anemia due to chronic blood loss Expected: 04/24/2024, Expires: 07/24/2024 [facility] Work Phone: Comment on above: Expected: 04/24/2024, Expires: Start: 04-17-2024 End: 04-17-2024 Patient encounter procedure Radiology Comment on above: CT [facility] Start: 04-06-2024 End: 04-06-2024 ambulatory 04/06/2024 10:15 AM EST OT/PT/Speech Visit [facility] [address] [place] [address] Chioma Vanegas, PT Right leg numbness [facility] Comment on above: Right leg numbness Start: 03-31-2024 End: 03-31-2024 ambulatory 03/31/2024 10:00 AM EST Results Only [facility] Draw Station [address] [facility] [place] [address] [place] COUNTS INCLUDE 234 BEDS AT THE [facility] Draw Station Start: 03-30-2024 End: 06-29-2024 CBC panel - Blood by Automated count COMPLETE BLOOD COUNT Lab Routine Gastrointestinal hemorrhage, unspecified gastrointestinal hemorrhage type Iron deficiency anemia, unspecified iron deficiency anemia type Expected: 03/30/2024, Expires: 06/29/2024 [facility] Comment on above: Expected: 03/30/2024, Expires: Start: 03-30-2024 End: 06-29-2024 Ferritin [Mass/volume] in Serum or Plasma FERRITIN Lab Routine Gastrointestinal hemorrhage, unspecified gastrointestinal hemorrhage type Iron deficiency anemia, unspecified iron deficiency anemia type Expected: 03/30/2024, Expires: 06/29/2024 [facility] Work Phone: Comment on above: Expected: 03/30/2024, Expires: Start: 03-30-2024 End: 06-29-2024 Iron and Iron binding capacity panel - Serum or Plasma IRON AND TIBC Lab Routine Gastrointestinal hemorrhage, unspecified gastrointestinal hemorrhage type Iron deficiency anemia, unspecified iron deficiency anemia type Expected: 03/30/2024, Expires: 06/29/2024 [facility] Comment on above: Expected: 03/30/2024, Expires: Start: 03-22-2024 End: 03-22-2024 Patient encounter procedure 03/22/2024 11:15 AM EST Office Visit [facility]O [facility]PART[facility] 1 [place] [address] Choco Stevens MD [address] [phone] EST PT [facility] Comment on above: EST PT Start: 03-09-2024 Influenza vaccination Lung Cancer Screening [facility] Start: 03-09-2024 Screening for malignant neoplasm of lung Lung Cancer Screening [facility] Start: 03-08-2024 End: 06-07-2024 CBC panel - Blood by Automated count COMPLETE BLOOD COUNT Lab Routine Gastrointestinal hemorrhage, unspecified gastrointestinal hemorrhage type Iron deficiency anemia, unspecified iron deficiency anemia type Expected: 03/08/2024, Expires: 06/07/2024 [facility] Work Phone: Comment on above: Expected: 03/08/2024, Expires: Start: 03-08-2024 End: 06-07-2024 Ferritin [Mass/volume] in Serum or Plasma FERRITIN Lab Routine Gastrointestinal hemorrhage, unspecified gastrointestinal hemorrhage type Iron deficiency anemia, unspecified iron deficiency anemia type Expected: 03/08/2024, Expires: 06/07/2024 [facility] Comment on above: Expected: 03/08/2024, Expires: Start: 03-08-2024 End: 06-07-2024 Iron and Iron binding capacity panel - Serum or Plasma IRON AND TIBC Lab Routine Gastrointestinal hemorrhage, unspecified gastrointestinal hemorrhage type Iron deficiency anemia, unspecified iron deficiency anemia type Expected: 03/08/2024, Expires: 06/07/2024 [facility] Comment on above: Expected: 03/08/2024, Expires: Start: 02-25-2024 Annual PCP Team Chronic Disease Visit Annual PCP Team Chronic Disease Visit [facility] Start: 02-25-2024 BP Controlled (<130/80) BP Controlled (<130/80) [facility] Start: 02-25-2024 Covid-19 Vaccine ( season) Covid-19 Vaccine ( season) [facility] Comment on above: Postponed from 01/01/2023 (Declined at t his time) Start: 02-25-2024 RSV Vaccine (1 - 1-dose 60+ series) RSV Vaccine (1 - 1-dose 60+ series) [facility] Comment on above: Postponed from 2021 (Declined at t his time) Start: 02-25-2024 RSV Vaccine (1 - Risk 60-74 years 1-dose series) RSV Vaccine (1 - Risk 60-74 years 1-dose series) [facility] Comment on above: Postponed from 2021 (Declined at t his time) Start: 02-25-2024 Shingrix Vaccine (1 of 2) Shingrix Vaccine (1 of 2) [facility] Comment on above: Postponed from 12/17/2011 (Declined at t his time) Start: 02-14-2024 End: 02-14-2024 Admission to same day surgery center 02/14/2024 10:45 AM EDT - 02/14/2024 12:44 PM EDT Surgery [facility] [address] [place] [address] [place] [address] [place], [place] [id number] ANGIOGRAM EXTREMITY UNILATERAL RADIOLOGICAL [facility] Comment on above: ANGIOGRAM EXTREMITY UNILATERAL RADIOLOGI IAN Start: 02-14-2024 End: 02-14-2024 Angiography extremity unilateral rs&i ANGIOGRAM EXTREMITY UNILATERAL RADIOLOGICAL PVD (peripheral vascular disease) (HCC) 02/14/2024 10:45 AM EDT [facility] CATH Start: 02-14-2024 Subsequent hospital visit by physician 02/14/2024 10:45 AM EDT Hospital Encounter [facility] [address] [place] [address] [place] [address] [place], [place] [id number] PVD (peripheral vascular disease) (HCC) [I73.9] [facility] Comment on above: PVD (peripheral vascular disease) (HCC) [I73.9] Start: 02-14-2024 End: 02-14-2024 Admission to same day surgery center 02/14/2024 9:30 AM EDT - 02/14/2024 11:29 AM EDT Surgery [facility] [id number] [place] [address] [place] [address] [place], [place] [id number] ANGIOGRAM EXTREMITY UNILATERAL RADIOLOGICAL [facility] Comment on above: ANGIOGRAM EXTREMITY UNILATERAL RADIOLOGI IAN Start: 02-14-2024 End: 02-14-2024 Angiography extremity unilateral rs&i ANGIOGRAM EXTREMITY UNILATERAL RADIOLOGICAL PVD (peripheral vascular disease) (HCC) 02/14/2024 9:30 AM EDT [facility] CATH Start: 02-14-2024 Subsequent hospital visit by physician 02/14/2024 9:30 AM EDT Hospital Encounter [facility] [address] [place] [address] [place] [address] [place], [place] [phone] PVD (peripheral vascular disease) (HCC) [I73.9] [facility] Comment on above: PVD (peripheral vascular disease) (HCC) [I73.9] Start: 02-11-2024 End: 05-12-2024 aPTT in Platelet poor plasma by Coagulation assay ACTIVATED PARTIAL THROMBOPLASTIN TIME Lab Routine Preprocedural general physical examination Expected: 02/11/2024, Expires: 05/12/2024 [facility] Comment on above: Expected: 02/11/2024, Expires: Start: 02-11-2024 End: 05-12-2024 Basic metabolic 2000 panel - Serum or Plasma BASIC METABOLIC PANEL Lab Routine Preprocedural general physical examination Expected: 02/11/2024, Expires: 05/12/2024 [facility] Comment on above: Expected: 02/11/2024, Expires: Start: 02-11-2024 BP Controlled (<130/80) BP Controlled (<130/80) [facility] Start: 02-11-2024 End: 05-12-2024 CBC W Auto Differential panel - Blood COMPLETE BLOOD COUNT AND DIFFERENTIAL Lab Routine Preprocedural general physical examination Expected: 02/11/2024, Expires: 05/12/2024 [facility] Comment on above: Expected: 02/11/2024, Expires: Start: 02-11-2024 End: 05-12-2024 PT panel - Platelet poor plasma by Coagulation assay PROTHROMBIN TIME Lab Routine Preprocedural general physical examination Expected: 02/11/2024, Expires: 05/12/2024 [facility] Work Phone: Comment on above: Expected: 02/11/2024, Expires: Start: 01-28-2024 End: 01-28-2024 Patient encounter procedure 01/28/2024 3:30 PM EDT Office Visit Cardiology [address] [place] [address] Ambreen Man APRN.[address] [phone] 3 month follow up Cardiology Comment on above: 3 month follow up Start: 01-28-2024 BP Controlled (<130/80) BP Controlled (<130/80) [facility] Start: 01-26-2024 End: 01-26-2024 Patient encounter procedure 01/26/2024 2:00 PM EDT Office Visit [facility] GENERAL SURGERY DEPARTMENT 1 [facility] [address] [place] [address] Lawrence Maria MD 1 [facility] [address] [place], [place] [phone] Discuss surgery [facility] Comment on above: Discuss surgery Start: 01-25-2024 End: 01-25-2024 Admission to same day surgery center 01/25/2024 2:15 PM EDT [facility] [address] [facility] [place] [address] [place] [address] [place], [place] [phone] Discuss RLE angio Vascular Surgery Comment on above: Discuss RLE angio Start: 01-19-2024 End: 01-19-2024 Patient encounter procedure Vascular Surgery Comment on above: 3 MONTH FOLLOW UP Start: 01-19-2024 End: 01-19-2024 Patient encounter procedure Vascular Lab Comment on above: 3 MONTH FOLLOW UP Start: 01-13-2024 End: 11-11-2024 CT Lung parenchyma WO contrast CT LUNG FOLLOWUP WO IVCON Radiology Routine Lung nodules Expected: 01/13/2024, Expires: 11/11/2024 [facility] Work Phone: Comment on above: Expected: 01/13/2024, Expires: Start: 01-13-2024 Fecal Occult Blood Fecal Occult Blood [facility] Start: 01-13-2024 Screening for malignant neoplasm of colon Fecal Occult Blood [facility] Start: 01-12-2024 ANNUAL PCP TEAM CHRONIC DISEASE VISIT ANNUAL PCP TEAM CHRONIC DISEASE VISIT [facility] Start: 01-12-2024 BP CONTROLLED (<130/80) BP CONTROLLED (<130/80) [facility] Start: 01-12-2024 End: 01-12-2024 Patient encounter procedure 01/12/2024 1:30 PM EDT Office Visit [facility] GENERAL SURGERY DEPARTMENT [address] [address]rd [address] [place], [place] [phone] Lawrence Maria MD [address] [place] [address] Discuss surgery [facility] SUR[facility] Comment on above: Discuss surgery Start: 01-07-2024 End: 01-07-2024 Follow-up encounter 01/07/2024 2:00 PM EDT [facility] GENERAL GASTRO DEPARTMENT 1 [place] [address] Paulette Ott PA-C [address] [facility] [address] [place] [address] follow up [facility] Comment on above: follow up Start: 01-05-2024 End: 01-05-2024 Patient encounter procedure 01/05/2024 2:40 PM EDT Office Visit [facility] [place] [address] [place], [place] [phone] Linda Parish MD [address] [place], [place] [phone] 3 month follow up [facility] Comment on above: 3 month follow up Start: 01-05-2024 End: 04-05-2024 Lipid 1996 panel - Serum or Plasma LIPID PANEL BASIC Lab Routine Mixed hyperlipidemia Expected: 01/05/2024, Expires: 04/05/2024 [facility] Work Phone: Comment on above: Expected: 01/05/2024, Expires: 4 Start: 01-05-2024 End: 04-05-2024 PSA/PROSTATE SPECIFIC ANTIGEN SCREENING PSA/PROSTATE SPECIFIC ANTIGEN SCREENING Lab Routine Screening for prostate cancer Expected: 01/05/2024, Expires: 04/05/2024 [facility] Comment on above: Expected: 01/05/2024, Expires: 4 Start: 01-02-2024 Influenza [facility] Start: 11-29-2023 End: 11-29-2023 Patient encounter procedure 11/29/2023 3:30 PM EDT Office Visit [facility] GENER[facility] GASTRO DEPARTMENT [address] [facility] [address] [place] [address] Doc Cutler MD [address] [place], [place] [phone] Gastrointestinal hemorrhage, unspecified gastrointestinal hemorrhage type [K92.2] [facility] Comment on above: Gastrointestinal hemorrhage, unspecified gastrointestinal hemorrhage type [K92.2] Start: 11-02-2023 End: 11-02-2023 Patient encounter procedure 11/02/2023 7:30 AM EDT [facility] GA[facility]O DEPART[facility] [address] [facility] [address] [place] [address] Paulette Ott PA-C [address] [facility] [address] [place] [address] Gastrointestinal hemorrhage, unspecified gastrointestinal hemorrhage type [K92.2] [facility] Comment on above: Gastrointestinal hemorrhage, unspecified gastrointestinal hemorrhage type [K92.2] Start: 10-28-2023 End: 10-28-2023 Patient encounter procedure 10/28/2023 1:40 PM EDT Office Visit Cardiology [address] [place] [address] Ju Edwards, [address] [place] [address] [place]a[facility] [R53.81] Cardiology Comment on above: Malaise [R53.81] Start: 10-15-2023 End: 10-15-2023 ambulatory [facility] Laboratory Comment on above: CBC/ IRON STUIDES 3 MO OV/ LABS * Start: 10-11-2023 End: 10-11-2023 Patient encounter procedure Radiology Comment on above: ct follow up Start: 10-06-2023 End: 10-06-2023 Patient encounter procedure 10/06/2023 3:00 PM EDT Office Visit Vascular Surgery [address] [place] [id number] [place] [address] [place] [address] follow up per SANFORD Dobbs (peripheral artery disease) (HCC) [I73.9] Vascular Surgery Comment on above: follow up per SANFORD Dobbs (peripheral a rtery disease) (HCC) [I73.9] Start: 10-05-2023 End: 10-05-2023 Patient encounter procedure 10/05/2023 2:20 PM EDT Office Visit [facility] [place] [address] [place] [address] Linda Parish MD [address] [facility], [place] [id number] 3 month f/u [facility] [place] Comment on above: 3 month f/u Start: 09-24-2023 End: 09-24-2023 ambulatory Hematology/Oncology Comment on above: QWK IRON SUCROSE 300/#4/4/AUTH EXP * QWK IRON SUCROSE 300 /#2/4/AUTH EXP 11/25/23* Coming in at 2pm, ok per nurseQWK IRON SUCROSE 300/#2/4/AUTH EXP 11/25/23* Start: 09-21-2023 End: 12-21-2023 CBC W Auto Differential panel - Blood COMPLETE BLOOD COUNT AND DIFFERENTIAL Lab STAT Iron deficiency anemia, unspecified iron deficiency anemia type Expected: 09/21/2023, Expires: 12/21/2023 [facility] Work Phone: Comment on above: Expected: 09/21/2023, Expires: Start: 09-21-2023 End: 09-21-2023 ambulatory Hematology/Oncology Comment on above: HOSP DC CBC(?TX)* Start: 09-17-2023 End: 09-17-2023 ambulatory 09/17/2023 3:30 PM EDT Infusion Center Hematology/Oncology [address] [place] [address] QWK IRON SUCROSE 300/#3/4/AUTH EXP 11/25/23* Hematology/Oncology Comment on above: QWK IRON SUCROSE 300/#3/4/AUTH EXP * Start: 09-11-2023 BP CONTROLLED (<130/80) BP CONTROLLED (<130/80) [facility] Start: 09-10-2023 End: 09-10-2023 ambulatory 09/10/2023 3:00 PM EDT Infusion Center Hematology/Oncology [address] [place] [address] QWK IRON SUCROSE 300/#2/4/AUTH EXP 11/25/23* Hematology/Oncology Comment on above: QWK IRON SUCROSE 300/#2/4/AUTH EXP * Start: 09-09-2023 End: 09-09-2023 Patient encounter procedure 09/09/2023 11:30 AM EDT Appointment Gastroenterology [address] [place] [address] Iron deficiency anemia, unspecified iron deficiency anemia type [D50.9]; Gastrointestinal hemorrhage, unspecified gastrointestinal hemorrhage type [K92.2] Gastroenterology Comment on above: Iron deficiency anemia, unspecified iron deficiency anemia type [D50.9]; Gastrointestinal hemorrhage, unspecified gastrointestinal hemorrhage type [K92.2] Start: 09-08-2023 Influenza vaccination LUNG CANCER SCREENING [facility] Start: 09-06-2023 End: 08-22-2024 CAPSULE ENDOSCOPY SMALL BOWEL CAPSULE ENDOSCOPY SMALL BOWEL Endoscopy Routine Iron deficiency anemia, unspecified iron deficiency anemia type Gastrointestinal hemorrhage, unspecified gastrointestinal hemorrhage type Expected: 09/06/2023, Expires: 08/22/2024 [facility] Work Phone: Comment on above: Expected: 09/06/2023, Expires: Start: 09-03-2023 End: 09-03-2023 ambulatory Hematology/Oncology Comment on above: START IRON SUCROSE 300/AUTH EXP ?* START QWK IRON SUCRO SE 300/#1/4/AUTH EXP 11/25/23* Results Start: 09-02-2023 ANNUAL PCP TEAM CHRONIC DISEASE VISIT ANNUAL PCP TEAM CHRONIC DISEASE VISIT [facility] Start: 09-02-2023 BP CONTROLLED (<130/80) BP CONTROLLED (<130/80) [facility] Start: 09-01-2023 End: 09-01-2023 Patient encounter procedure 09/01/2023 12:15 PM EDT Office Visit Vascular Surgery [address] [place] [address] [place] [id number] [place] [address] 1 MONTH S/P RUE ANGIOGRAM Vascular Surgery Comment on above: 1 MONTH S/P RUE ANGIOGRAM Start: 08-31-2023 End: 08-31-2023 Patient encounter procedure [facility] [place] Comment on above: Hospital, [facility] and [facility] d/c 08/25/23 1 MONTH S/P RUE MARCY OGRAM Start: 08-27-2023 End: 08-27-2023 Follow-up encounter 08/27/2023 11:30 AM EDT Visit (SP) Office Hematology/Oncology [address] [place] [address] [place] [address] [place] [address] CBC/Iron Studies/OV/HOSPITAL FOLLOW UP* Hematology/Oncology Comment on above: CBC/Iron Studies/OV/HOSPITAL FOLLOW UP* Start: 08-27-2023 End: 08-27-2023 ambulatory 08/27/2023 11:00 AM EDT Results Only [place] [facility]wn COUNTS INCLUDE 234 BEDS AT THE [facility] Laboratory [address] [place] [address] CBC/Iron Studies* [facility] Laboratory Comment on above: CBC/Iron Studies* Start: 08-23-2023 [facility] Start: 08-22-2023 [facility] Start: 08-22-2023 Patient discharge [facility] Start: 08-21-2023 Care planning and problem solving actions [facility] Start: 08-20-2023 [facility] Start: 08-19-2023 Application of intermittent pneumatic compression device [facility] Start: 08-19-2023 End: 08-20-2023 [facility] Start: 08-18-2023 Administration of blood product [facility] Start: 08-18-2023 End: 08-18-2023 [facility] Start: 08-18-2023 Following clinical pathway protocol [facility] Start: 08-18-2023 Assessment of risk of venous thromboembolism [facility] Start: 08-18-2023 Fall prevention [facility] Start: 08-18-2023 Incentive spirometry [facility] Start: 08-18-2023 Inhalation therapy procedure [facility] Start: 08-18-2023 Insertion of catheter into peripheral vein [facility] Start: 08-18-2023 Introduction of urinary catheter [facility] Start: 08-18-2023 Measuring intake and output [facility] Start: 08-18-2023 Oxygen therapy [facility] Start: 08-18-2023 Providing care according to standard [facility] Start: 08-18-2023 Provision of activity privileges [facility] Start: 08-18-2023 Referral to gastroenterology service [facility] Start: 08-18-2023 Referral to service [facility] Start: 08-18-2023 Referral to vascular surgeon [facility] Start: 08-18-2023 Tobacco use cessation education [facility] Start: 08-18-2023 Verification routine [facility] Start: 08-18-2023 Admission procedure [facility] Start: 08-18-2023 End: 08-18-2023 Administration of blood product [facility] Start: 08-18-2023 Leukocyte reduced red blood cells [facility] Start: 08-17-2023 Administration of blood product [facility] Start: 08-17-2023 End: 11-16-2023 Bacteria identified in Urine by Culture [facility] Work Phone: Comment on above: Expected: 08/17/2023, Expires: 4 Start: 08-11-2023 ANNUAL PCP TEAM CHRONIC DISEASE VISIT ANNUAL PCP TEAM CHRONIC DISEASE VISIT [facility] Start: 07-25-2023 ANNUAL PCP TEAM CHRONIC DISEASE VISIT ANNUAL PCP TEAM CHRONIC DISEASE VISIT [facility] Start: 07-16-2023 End: 10-15-2023 Coagulation factor VIII activity actual/normal in Platelet poor plasma by Coagulation assay [facility] Work Phone: Comment on above: Expected: 07/16/2023, Expires: 4 Start: 06-25-2023 Patient discharge [facility] Start: 06-24-2023 [facility] Start: 06-22-2023 End: 09-21-2023 CBC W Auto Differential panel - Blood CBC + DIFF Lab STAT Anemia, unspecified type Expected: 06/22/2023, Expires: 09/21/2023 [facility] Work Phone: Comment on above: Expected: 06/22/2023, Expires: Start: 06-21-2023 Application of elastic bandage [facility] Start: 06-19-2023 Administration of blood product [facility] Start: 06-19-2023 Referral to gastroenterology service [facility] Start: 06-19-2023 Following clinical pathway protocol [facility] Start: 06-19-2023 Ambulation without limitation [facility] Start: 06-19-2023 Assessment of risk of venous thromboembolism [facility] Start: 06-19-2023 Documentation procedure [facility] Start: 06-19-2023 Insertion of catheter into peripheral vein [facility] Start: 06-19-2023 Measuring intake and output [facility] Start: 06-19-2023 Providing care according to standard [facility] Start: 06-19-2023 [facility] Start: 06-19-2023 Verification routine [facility] Start: 06-19-2023 End: 06-19-2023 Admission procedure [facility] Start: 06-19-2023 Leukocyte reduced red blood cells [facility] Start: 06-19-2023 [facility] Start: 06-19-2023 End: 06-19-2023 Administration of blood product [facility] Start: 06-19-2023 Patient referral to dietitian [facility] Start: 06-17-2023 End: 09-16-2023 CBC W Auto Differential panel - Blood CBC + DIFF Lab STAT Anemia, unspecified type Expected: 06/17/2023, Expires: 09/16/2023 [facility] Work Phone: Comment on above: Expected: 06/17/2023, Expires: Start: 06-17-2023 End: 09-16-2023 COPPER BLOOD COPPER BLOOD Lab Routine Anemia, unspecified type Expected: 06/17/2023, Expires: 09/16/2023 [facility] Work Phone: Comment on above: Expected: 06/17/2023, Expires: Start: 06-17-2023 End: 09-16-2023 Ferritin [Mass/volume] in Serum or Plasma FERRITIN BLD Lab Routine Anemia, unspecified type Expected: 06/17/2023, Expires: 09/16/2023 [facility] Work Phone: Comment on above: Expected: 06/17/2023, Expires: Start: 06-17-2023 End: 09-16-2023 Folate [Mass/volume] in Serum or Plasma FOLATE SERUM Lab Routine Anemia, unspecified type Expected: 06/17/2023, Expires: 09/16/2023 [facility] Work Phone: Comment on above: Expected: 06/17/2023, Expires: Start: 06-17-2023 End: 09-16-2023 Iron and Iron binding capacity panel - Serum or Plasma IRON + TIBC Lab Routine Anemia, unspecified type Expected: 06/17/2023, Expires: 09/16/2023 [facility] Work Phone: Comment on above: Expected: 06/17/2023, Expires: Start: 06-17-2023 End: 09-16-2023 Zinc [Mass/volume] in Serum or Plasma ZINC BLD Lab Routine Anemia, unspecified type Expected: 06/17/2023, Expires: 09/16/2023 [facility] Work Phone: Comment on above: Expected: 06/17/2023, Expires: Start: 06-10-2023 Patient discharge [facility] Start: 06-10-2023 [facility] Start: 06-08-2023 End: 06-08-2023 [facility] Start: 06-08-2023 Administration of blood product [facility] Start: 06-08-2023 End: 06-09-2023 [facility] Start: 06-08-2023 [facility] Start: 06-08-2023 Leukocyte reduced red blood cells [facility] Start: 06-08-2023 Administration of blood product [facility] Start: 06-08-2023 Complete blood count [facility] Start: 06-07-2023 Following clinical pathway protocol [facility] Start: 06-07-2023 Assessment of risk of venous thromboembolism [facility] Start: 06-07-2023 Chart related administrative procedure [facility] Start: 06-07-2023 Inhalation therapy procedure [facility] Start: 06-07-2023 Insertion of catheter into peripheral vein [facility] Start: 06-07-2023 Measuring intake and output [facility] Start: 06-07-2023 Providing care according to standard [facility] Start: 06-07-2023 Provision of activity privileges [facility] Start: 06-07-2023 Referral to gastroenterology service [facility] Start: 06-07-2023 Referral to vascular surgeon [facility] Start: 06-07-2023 [facility] Start: 06-07-2023 [facility] Start: 06-07-2023 CT of abdominal aorta with contrast CTA Abd w/Runoff W/WO Contrast [facility] Start: 06-07-2023 Verification routine [facility] Start: 06-07-2023 Admission procedure [facility] Start: 06-07-2023 Hospital admission, emergency, from emergency room, medical nature [facility] Start: 06-07-2023 Administration of blood product [facility] Start: 06-07-2023 Leukocyte reduced red blood cells [facility] Start: 06-07-2023 End: 06-08-2023 [facility] Start: 06-07-2023 Complete blood count [facility] Start: 05-03-2023 Behavioral Health Screening Behavioral Health Screening [facility] Start: 05-03-2023 Depression Assessment Depression Assessment [facility] Start: 05-01-2023 ANNUAL PCP TEAM CHRONIC DISEASE VISIT ANNUAL PCP TEAM CHRONIC DISEASE VISIT [facility] Start: 02-22-2023 End: 04-24-2023 Hepatic function 2000 panel - Serum or Plasma HEPATIC FUNCTION PNL Lab Routine Mixed hyperlipidemia Expected: 02/22/2023, Expires: 04/24/2023 [facility] Work Phone: Comment on above: Expected: 02/22/2023, Expires: 3 Start: 02-22-2023 End: 04-24-2023 Lipid 1996 panel - Serum or Plasma LIPID PANEL BASIC Lab Routine Mixed hyperlipidemia Expected: 02/22/2023, Expires: 04/24/2023 [facility] Work Phone: Comment on above: Expected: 02/22/2023, Expires: 3 Start: 02-01-2023 End: 04-03-2023 CBC W Auto Differential panel - Blood CBC + DIFF Lab STAT Polycythemia, secondary Expected: 02/01/2023, Expires: 04/03/2023 [facility] Work Phone: Comment on above: Expected: 02/01/2023, Expires: 3 Start: 01-13-2023 End: 03-15-2023 CBC W Auto Differential panel - Blood CBC + DIFF Lab Routine Black stool Blood in stool Expected: 01/13/2023, Expires: 03/15/2023 [facility] Work Phone: Comment on above: Expected: 01/13/2023, Expires: 3 Start: 01-01-2023 Covid-19 Vaccine ( season) Covid-19 Vaccine () [facility] Start: 01-01-2023 Influenza vaccination [facility] Start: 09-03-2022 Adult depression screening assessment DEPRESSION SCREENING [facility] Start: 09-01-2022 End: 11-01-2022 Comprehensive metabolic 2000 panel - Serum or Plasma [facility] Work Phone: Comment on above: Expected: 09/01/2022, Expires: 3 Start: 07-29-2022 End: 09-28-2022 CBC W Auto Differential panel - Blood CBC + DIFF Lab Routine LLQ abdominal pain Hx of diverticulitis of colon Expected: 07/29/2022, Expires: 09/28/2022 [facility] Work Phone: Comment on above: Expected: 07/29/2022, Expires: 3 Start: 06-24-2022 Influenza vaccination LUNG CANCER SCREENING [facility] Start: 05-03-2022 DEPRESSION ASSESSMENT DEPRESSION ASSESSMENT [facility] Start: 01-30-2022 End: 04-01-2022 CBC W Auto Differential panel - Blood CBC + DIFF Lab Routine Diverticulitis Leukocytosis, unspecified type Expected: 01/30/2022, Expires: 04/01/2022 [facility] Work Phone: Comment on above: Expected: 01/30/2022, Expires: 2 Start: 01-28-2022 End: 03-30-2022 Basic metabolic 2000 panel - Serum or Plasma [facility] Work Phone: Comment on above: Expected: 01/28/2022, Expires: 2 Start: 01-28-2022 End: 03-30-2022 CBC W Auto Differential panel - Blood [facility] Work Phone: Comment on above: Expected: 01/28/2022, Expires: 2 Start: 01-28-2022 End: 03-30-2022 Erythrocyte sedimentation rate [facility] Work Phone: Comment on above: Expected: 01/28/2022, Expires: 2 Start: 01-01-2022 Influenza vaccination INFLUENZA (#1) [facility] Start: 2021 RSV Vaccine (1 - Risk 60-74 years 1-dose series) RSV Vaccine (1 - Risk 60-74 years 1-dose series) [facility] Start: 12-04-2021 COVID-19 VACCINE (5 - Booster for Pfizer series) COVID-19 VACCINE (5 - Booster for Pfizer series) [facility] Start: 11-05-2021 End: 01-05-2022 Basic metabolic 2000 panel - Serum or Plasma [facility] Work Phone: Comment on above: Expected: 11/05/2021, Expires: 2 Start: 11-05-2021 End: 01-05-2022 CBC W Auto Differential panel - Blood [facility] Work Phone: Comment on above: Expected: 11/05/2021, Expires: 2 Start: 06-30-2021 COVID-19 VACCINE (4 - Booster for Pfizer series) COVID-19 VACCINE (4 - Booster for Pfizer series) [facility] Start: 05-03-2021 DEPRESSION ASSESSMENT DEPRESSION ASSESSMENT [facility] Start: 07-19-2019 TWO PNEUMOVAX 5 YEARS APART PRIOR TO AGE 65 (#2) TWO PNEUMOVAX 5 YEARS APART PRIOR TO AGE 65 (#2) [facility] Start: 04-13-2018 Urine microalbumin profile DTAP,TDAP,TD (2 - Td or Tdap) [facility] Start: 12-17-2011 SHINGRIX VACCINE (1 of 2) SHINGRIX VACCINE (1 of 2) [facility] Start: 2006 COLOGUARD (FIT-DNA) COLOGUARD (FIT-DNA) [facility] Start: [address] COLONOGRAPHY [facility] Start: 2006 FECAL OCCULT BLOOD FECAL OCCULT BLOOD [facility] Start: 2006 Screening for malignant neoplasm of colon [facility] Start: 2006 SIGMOIDOSCOPY SIGMOIDOSCOPY [facility] Start: 12-17-1979 BP CONTROLLED (<130/80) BP CONTROLLED (<130/80) [facility] Start: 12-17-1979 zzBP Controlled (<130/80) (Retired) zzBP Controlled (<130/80) (Retired) [facility] Alanine aminotransfe rase [Enzymatic activity/volume] in Serum or Plasma [facility] Alanine aminotransfe rase [Enzymatic activity/volume] in Serum or Plasma [facility] Albumin [Mass/volume ] in Serum or Plasma [facility] Albumin [Mass/volume ] in Serum or Plasma [facility] Alkaline phosphatase [Enzymatic activity/volume] in Serum or Plasma [facility] Alkaline phosphatase [Enzymatic activity/volume] in Serum or Plasma [facility] Anion gap measurement [facility] Anion gap measurement [facility] Aspartate aminotransferase [Enzymatic activity/volume] in Serum or Plasma [facility] Aspartate aminotransferase [Enzymatic activity/volume] in Serum or Plasma [facility] Bilirubin, total measurement [facility] Bilirubin, total measurement [facility] BUN/Creatinine ratio [facility] BUN/Creatinine ratio [facility] Calcium [Mass/volume ] in Serum or Plasma [facility] Calcium [Mass/volume ] in Serum or Plasma [facility] Carbon dioxide, tota l [Moles/volume] in Serum or Plasma [facility] Carbon dioxide, tota l [Moles/volume] in Serum or Plasma [facility] CBC W Auto Different ial panel - Blood CBC + DIFF Lab Routine Peripheral artery disease (HCC) Iron deficiency anemia due to chronic blood loss 07/01/2023 10:18 AM EST [facility] Work Phone: End: 08-26-2024 CBC W Auto Differential panel - Blood COMPLETE BLOOD COUNT AND DIFFERENTIAL Lab Routine Anemia, unspecified type Once per week for 6 Occurrences starting 08/27/2023 until 08/26/2024 [facility] Work Phone: Comment on above: Once per week for 6 Occurrences starting 08/27/2023 until 08/26/2024 End: 11-11-2024 CBC W Auto Differential panel - Blood COMPLETE BLOOD COUNT AND DIFFERENTIAL Lab Routine Gastrointestinal hemorrhage, unspecified gastrointestinal hemorrhage type Once per week for 1 Occurrences starting 11/12/2023 until 11/11/2024 [facility] Comment on above: Once per week for 1 Occurrences starting 11/12/2023 until 11/11/2024 Chloride [Moles/volu me] in Serum or Plasma [facility] Chloride [Moles/volu me] in Serum or Plasma [facility] Creatinine [Moles/volume] in Serum or Plasma [facility] Creatinine [Moles/volume] in Serum or Plasma [facility] End: 11-26-2023 Ct abdomen & pelvis w/contrast material CT ABD/PEL W IVCON Radiology Routine Left lower quadrant abdominal pain 1 Occurrences starting 10/27/2022 until 11/26/2023 [facility] Work Phone: Comment on above: 1 Occurrences starting 10/27/2022 until 11/26/2023 CT Chest for screeni ng WO contrast CT LUNG SCREEN WO IVCON Radiology Routine Lung nodules Encounter for screening for lung cancer Former smoker 1 Occurrences starting 10/11/2023 [facility] Work Phone: Comment on above: 1 Occurrences starting 10/11/2023 CT Chest for screeni ng WO contrast CT LUNG SCREEN WO IVCON Radiology Routine Lung nodules 1 Occurrences starting 04/17/2024 [facility] Work Phone: Comment on above: 1 Occurrences starting 04/17/2024 End: 10-07-2023 CT LUNG SCREEN WO IVCON CT LUNG SCREEN WO IVCON Radiology Routine Encounter for screening for lung cancer Cigarette smoker Lung nodules 1 Occurrences starting 09/07/2022 until 10/07/2023 [facility] Work Phone: Comment on above: 1 Occurrences starting 09/07/2022 until 10/07/2023 End: 10-09-2023 Ct thorax w/o contrast material CT LUNG FOLLOWUP WO IVCON Radiology Routine Lung nodules 1 Occurrences starting 09/09/2022 until 10/09/2023 [facility] Work Phone: Comment on above: 1 Occurrences starting 09/09/2022 until 10/09/2023 End: 10-05-2025 CTA Abdominal, Pelvis and Lower extremity vessels W contrast IV CTA ABD/PEL LOWER EXTREM WO/W IVCON Radiology Routine Peripheral vascular disease 1 Occurrences starting 09/05/2024 until 10/05/2025 [facility] Work Phone: Comment on above: 1 Occurrences starting 09/05/2024 until 10/05/2025 CTA Abdominal, Pelvi s and Lower extremity vessels W contrast IV CTA ABD/PEL LOWER EXTREM WO/W IVCON Radiology Routine Peripheral vascular disease 10/09/2024 4:24 PM EDT [facility] Work Phone: ECG COMPLETE ECG COMPLETE ECG Routine SOB (shortness of breath) 08/17/2023 12:27 PM EDT [facility] Work Phone: End: 11-05-2022 Echocardiography ECHO Cardiology Routine Nonrheumatic aortic valve insufficiency 1 Occurrences starting 11/05/2021 until 11/05/2022 [facility] Work Phone: Comment on above: 1 Occurrences starting 11/05/2021 until 11/05/2022 Erythrocyte mean corpuscular volume determination [facility] Erythrocyte mean corpuscular volume determination [facility] Erythrocyte mean corpuscular volume determination [facility] End: 11-11-2024 Ferritin [Mass/volume] in Serum or Plasma FERRITIN Lab Routine Gastrointestinal hemorrhage, unspecified gastrointestinal hemorrhage type Once per week for 1 Occurrences starting 11/12/2023 until 11/11/2024 [facility] Comment on above: Once per week for 1 Occurrences starting 11/12/2023 until 11/11/2024 Glucose [Mass/volume ] in Serum or Plasma [facility] Glucose [Mass/volume ] in Serum or Plasma [facility] Hematocrit [Volume Fraction] of Blood [facility] Hematocrit [Volume Fraction] of Blood [facility] Hematocrit [Volume Fraction] of Blood [facility] Hematocrit [Volume Fraction] of Blood [facility] Hemoglobin [Mass/vol ume] in Blood [facility] Hemoglobin [Mass/vol ume] in Blood [facility] Hemoglobin [Mass/vol ume] in Blood [facility] Hemoglobin [Mass/vol ume] in Blood [facility] Hemoglobin.gastroint chirag nal.lower [Presence] in Stool by Immunoassay FECAL OCCULT BLOOD TEST Lab Routine Dark stools Ordered: 01/11/2023 [facility] Work Phone: Comment on above: Ordered: 01/11/2023 End: 11-11-2024 Iron and Iron binding capacity panel - Serum or Plasma IRON AND TIBC Lab Routine Gastrointestinal hemorrhage, unspecified gastrointestinal hemorrhage type 1 Occurrences starting 11/12/2023 until 11/11/2024 [facility] Work Phone: Comment on above: 1 Occurrences starting 11/12/2023 until 11/11/2024 Leukocytes [#/volume ] in Blood [facility] Leukocytes [#/volume ] in Blood [facility] Leukocytes [#/volume ] in Blood [facility] Mean corpuscular hemoglobin concentration determination [facility] Mean corpuscular hemoglobin concentration determination [facility] Mean corpuscular hemoglobin concentration determination [facility] Mean corpuscular hemoglobin determination [facility] Mean corpuscular hemoglobin determination [facility] Mean corpuscular hemoglobin determination [facility] Measurement of renal function [facility] Measurement of renal function [facility] Neutrophil count [facility] Neutrophil count [facility] Neutrophil percent differential count [facility] Neutrophil percent differential count [facility] OT PLAN OF CARE CERTIFICATION OT PLAN OF CARE CERTIFICATION Procedures Routine Dupuytren's disease of palm Dupuytren's disease of palm of right hand Pain of right hand Ordered: 06/30/2022 [facility] Work Phone: Comment on above: Ordered: 06/30/2022 Patient Education [facility] Work Phone: Patient referral [facility] Work Phone: Platelets [#/volume] in Blood [facility] Platelets [#/volume] in Blood [facility] Platelets [#/volume] in Blood [facility] Potassium [Moles/vol ume] in Serum or Plasma [facility] Potassium [Moles/vol ume] in Serum or Plasma [facility] End: 01-14-2024 PVR ANK PRESS [facility] PVR ANK PRESS [facility] Vascular Lab Routine Peripheral arterial disease (HCC) 1 Occurrences starting 01/13/2023 until 01/14/2024 [facility] Work Phone: Comment on above: 1 Occurrences starting 01/13/2023 until 01/14/2024 End: 03-16-2024 PVR ANK PRESS [facility] PVR ANK PRESS [facility] Vascular Lab Routine Peripheral arterial disease (HCC) 1 Occurrences starting 03/16/2023 until 03/16/2024 [facility] Work Phone: Comment on above: 1 Occurrences starting 03/16/2023 until 03/16/2024 Red blood cell count [facility] Red blood cell count [facility] Red blood cell count [facility] Red cell distributio n width determination [facility] Red cell distributio n width determination [facility] Red cell distributio n width determination [facility] Revj lxtr artl byp o pn vein patch angiop REVISION BYPASS GRAFT FEMORAL POPLITEAL PVD (peripheral vascular disease) [facility] Sodium [Moles/volume ] in Serum or Plasma [facility] Sodium [Moles/volume ] in Serum or Plasma [facility] Total protein measurement [facility] Total protein measurement [facility] Urea nitrogen [Mass/volume] in Serum or Plasma [facility] Urea nitrogen [Mass/volume] in Serum or Plasma [facility] End: 01-14-2024 US LEG ARTERIAL PERIPH [facility]L [facility] US LEG ARTERIAL PERIPH [facility]L [facility] Vascular Lab Routine Peripheral arterial disease (HCC) 1 Occurrences starting 01/13/2023 until 01/14/2024 [facility] Work Phone: Comment on above: 1 Occurrences starting 01/13/2023 until 01/14/2024 End: 03-16-2024 US LEG ARTERIAL PERIPH UNL [facility] US LEG ARTERIAL PERIPH UNL [facility] Vascular Lab Routine Peripheral arterial disease (HCC) 1 Occurrences starting 03/16/2023 until 03/16/2024 [facility] Work Phone: Comment on above: 1 Occurrences starting 03/16/2023 until 03/16/2024 End: 09-05-2025 US LEG VEIN MAP [facility] US LEG VEIN MAP [facility] Vascular Lab Routine Peripheral vascular disease 1 Occurrences starting 09/05/2024 until 09/05/2025 [facility] Comment on above: 1 Occurrences starting 09/05/2024 until 09/05/2025 End: 10-05-2024 US Lower extremity artery US LEG ARTERIAL PERIPH [facility]L [facility] Vascular Lab Routine PAD (peripheral artery disease) (HCC) 1 Occurrences starting 10/06/2023 until 10/05/2024 [facility] Work Phone: Comment on above: 1 Occurrences starting 10/06/2023 until 10/05/2024 End: 05-10-2025 US Lower extremity artery US LEG ARTERIAL PERIPH UNL [facility] Vascular Lab Routine PAD (peripheral artery disease) (HCC) 1 Occurrences starting 05/10/2024 until 05/10/2025 [facility] Work Phone: Comment on above: 1 Occurrences starting 05/10/2024 until 05/10/2025 End: 05-30-2025 US Lower extremity artery US LEG ARTERIAL PERIPH [facility]L [facility] Vascular Lab Routine PAD (peripheral artery disease) (HCC) 1 Occurrences starting 05/30/2024 until 05/30/2025 [facility] Work Phone: Comment on above: 1 Occurrences starting 05/30/2024 until 05/30/2025 End: 10-05-2024 US.doppler Extremity arteries - bilateral for physiologic artery study PVR ANK PRESS [facility] Vascular Lab Routine PAD (peripheral artery disease) (HCC) 1 Occurrences starting 10/06/2023 until 10/05/2024 [facility] Comment on above: 1 Occurrences starting 10/06/2023 until 10/05/2024 End: 05-10-2025 US.doppler Extremity arteries - bilateral for physiologic artery study PVR ANK PRESS [facility] Vascular Lab Routine PAD (peripheral artery disease) ([facility]) 1 Occurrences starting 05/10/2024 until 05/10/2025 [facility] Comment on above: 1 Occurrences starting 05/10/2024 until 05/10/2025 End: 05-30-2025 US.doppler Extremity arteries - bilateral for physiologic artery study PVR ANK PRESS [facility] Vascular Lab Routine PAD (peripheral artery disease) ([facility]) 1 Occurrences starting 05/30/2024 until 05/30/2025 [facility] Comment on above: 1 Occurrences starting 05/30/2024 until 05/30/2025 End: 09-05-2025 US.doppler Upper extremity vein - bilateral US ARM VEIN MAP [facility] Vascular Lab Routine Peripheral vascular disease 1 Occurrences starting 09/05/2024 until 09/05/2025 [facility] Comment on above: 1 Occurrences starting 09/05/2024 until 09/05/2025 End: 09-08-2025 XR Ribs - right Views and Chest PA XR RIBS/CHEST 3V AP RIB/OBLS/CXR RIGHT Radiology Routine Rib pain 1 Occurrences starting 08/09/2024 until 09/08/2025 [facility] Work Phone: Comment on above: 1 Occurrences starting 08/09/2024 until 09/08/2025 XR Ribs - right View s and Chest PA XR RIBS/CHEST 3V AP RIB/OBLS/CXR RIGHT Radiology Routine Rib pain 08/09/2024 2:47 PM EDT [facility] c [facility] Immunizations Immunization Date Immunization Notes Care Provider [facility] 02-24-2023 influenza, injectabl e, quadrivalent, contains preservative Linda Parish MD Work Phone: [facility] 02-24-2023 influenza virus vacc ine, unspecified formulation Paulette Ott PA-C Work Phone: [facility] 02-05-2022 COVID-19 booster vaccine, age 12+ yr, bivalent ([employer]) Linda Parish MD Work Phone: [facility] 02-05-2022 influenza, injectabl e, quadrivalent, contains preservative Linda Parish MD Work Phone: [facility] 02-05-2022 influenza virus vacc ine, unspecified formulation Rosi Alonso DO Work Phone: [facility] 04-04-2021 tetanus toxoid, redu weston diphtheria toxoid, and acellular pertussis vaccine, adsorbed [facility] 03-31-2021 influenza, injectabl e, quadrivalent, contains preservative [facility] Work Phone: [facility] 07-30-2020 COVID-19 vaccine, ag e 12+ yr (PFIZER-BIONTECH - PURPLE TOP) [facility] Work Phone: [facility] Work Phone: 07-09-2020 COVID-19 vaccine, ag e 12+ yr (PFIZER-BIONTECH - PURPLE TOP) [facility] Work Phone: [facility] Work Phone: 02-28-2020 pneumococcal conjuga te vaccine, 13 valent [facility] Work Phone: [facility] 02-23-2020 influenza, injectabl e, quadrivalent, preservative free [facility] Work Phone: [facility] 02-13-2019 influenza, injectabl e, quadrivalent, contains preservative [facility] Work Phone: [facility] 02-15-2018 influenza, injectabl e, quadrivalent, contains preservative [facility] Work Phone: [facility] Work Phone: 07-18-2014 pneumococcal polysaccharide vaccine, 23 valent [facility] Work Phone: [facility] 04-13-2008 tetanus toxoid, redu weston diphtheria toxoid, and acellular pertussis vaccine, adsorbed [facility] Work Phone: [facility] Work Phone: Payers Date Payer Category Payer Medicare (Managed Care) [employer] [place] [employer] [id number] 2024 Medicare [id number] 2024 Self-pay [id number] 2023 Private Health Insurance [id number] 2023 Medicare [id number] 2022 Unknown [id number] 2022 Unknown [id number] 2020 Medicaid [employer] [facility] [place] [place] MEDICAID [id number] 2020-Present [phone] [address] [place] [address] Medicaid [id number] 2009 Medicaid [id number] 1999 Unknown [id number] Unknown [id number] Unknown [id number] Social History Date Type Detail Facility Start: 02-11-1981 End: 09-05-2021 Tobacco smoking status NHIS Smokes tobacco daily [facility] Start: 02-11-1981 End: 04-24-2023 History of tobacco use Cigarette Smoker [facility] Start: 09-05-2021 End: 08-09-2024 Alcohol intake Current drinker of alcohol (finding) [facility] Start: 09-05-2021 End: 09-02-2022 Alcohol intake [facility] Start: 02-23-2020 History SDOH Alcohol Frequency 5 [facility] Start: 02-23-2020 End: 04-28-2022 History SDOH Alcohol Std Drinks 2 [facility] Start: 02-23-2020 End: 04-28-2022 History SDOH Alcohol Binge 4 [facility] Start: 10-28-2020 History SDOH Alcohol Comment couple drinks per day [facility] Start: 02-13-2020 End: 04-28-2022 History SDOH Social Connections Hinduism 1 [facility] Start: 02-13-2020 End: 04-28-2022 History SDOH Social Connections Living 3 [facility] Start: 02-13-2020 History SDOH Physica l Activity DPW 0 [facility] Start: 02-13-2020 Education 15 [facility] Start: 09-05-2021 End: 01-30-2022 Tobacco Comment Pt has cut back to 1/2 pack daily. [facility] Start: 1960 Sex Assigned At Not on file [facility] Start: 05-24-2021 End: 03-16-2022 Exposure to SARS-CoV-2 (event) Not sure [facility] Tobacco smoking status No Smokin g Status Entered [facility] Start: 1960 Sex Assigned At Male A [facility] Start: 10-14-2021 End: 08-19-2023 Tobacco smoking status INIS Unknown if ever smoked [facility] Start: 10-14-2021 Cigarettes [facility] Start: 09-05-2021 End: 04-17-2024 Tobacco use and exposure Smokeless tobacco non-user [facility] Start: 04-28-2022 History SDOH Social Connections Get Together 98 [facility] Start: 06-08-2022 Alcohol intake Ex-drinker (finding) [facility] Start: 06-08-2022 Alcohol Comment 2-3 drinks per day 5 days per week [facility] Start: 07-24-2022 Alcohol Comment 3-4 drinks per day 5 days per week [facility] Start: 04-27-2022 End: 09-02-2022 Social connection and isolation panel [facility] How often do you get together with friends or relatives? Patient refused [facility] Do you belong to any clubs or organizations such as buddhist groups, unions, fraternal or athletic groups, or school groups? Yes [facility] Are you now , , , , never or living with a partner? [facility] How often to you hav e a drink containing alcohol? 2-3 time sa week [facility] How many standard dr inks containing alcohol do you have on a typical day? 3 or 4 [facility] How often do you hav e 6 or more drinks on 1 occasion? Weekly [facility] How hard is it for y ou to pay for the very basics like food, housing, medical care, and heating Not very hard [facility] Do you feel stress - tense, restless, nervous, or anxious, or unable to sleep at night because your mind is troubled all the time - these days [OSQ] To some extent [facility] (I/We) worried [place] (my/our) food would run out before (I/we) got money to buy more. Never true [facility] [facility] In the past 12 month s, was there a time when you were not able to pay the mortgage or rent on time? No [facility] Start: 05-22-2023 End: 04-17-2024 Tobacco smoking status NHIS Ex-smoker [facility] Work Phone: Start: 02-11-1981 End: 04-24-2023 History of tobacco use Current smoker [facility] Work Phone: How many standard dr inks containing alcohol do you have on a typical day? 1 or 2 [facility] How often do you hav e 6 or more drinks on 1 occasion? Monthly [facility] Do you feel stress - tense, restless, nervous, or anxious, or unable to sleep at night because your mind is troubled all the time - these days [OSQ] Only a little [facility] Start: 09-01-2023 Alcohol Comment 3-4 drinks per day 5 days per week; 2 drinks in August [facility] History of tobacco use Passive smoker [facility] Start: 01-26-2024 Alcohol Comment 3-4 drinks per day 5 days per week; [facility] How often to you hav e a drink containing alcohol? 4 or more times a week [facility] Goals Date Patient Goal Desired Activity /State Personal health goal Functional Status Date Assessment Result Facility 09-07-2023 Are you deaf, or do you have serious difficulty hearing No [facility] 09-07-2023 Are you blind, or do you have serious difficulty seeing, even when wearing glasses No [facility] 09-07-2023 Do you have serious difficulty walking or climbing stairs No [facility] 09-07-2023 Do you have difficul ty dressing or bathing No [facility] 09-07-2023 Because of a physica l, mental, or emotional condition, do you have difficulty doing errands alone such as visiting a physician's office or shopping No [facility] 08-22-2023 Functional status Ambulates [facility] Work Phone: 06-25-2023 Functional status Ambulates [facility] Work Phone: 06-10-2023 Functional status Up ad jeffery;Chair [facility] Work Phone: Mental Status Date Assessment Result Facility 09-07-2023 Because of a physica l, mental, or emotional condition, do you have serious difficulty concentrating, remembering, or making decisions No [facility] 08-21-2023 Cognitive function Voice/Name [facility] Work Phone: 08-17-2023 Cognitive function Level Of Cons ciousness Awake;Alert;Appropriate;Fol lows Commands [facility] Work Phone: 06-25-2023 Cognitive function Voice/Name [facility] Work Phone: 06-10-2023 Cognitive function Voice/Name [facility] Work Phone: 06-07-2023 Cognitive function Level Of Cons ciousness Awake;Alert;Appropriate;Fol lows Commands [facility] Work Phone: 09-16-2021 Cognitive function Voice/Name [facility] Work Phone: Clinical Notes 08-15-2014 to 10-11-2024 Telephone Encounter - Manda Craft 10/11/2024 9:54 AM EDTTelephone Encounter - Manda Craft - 10/11/2024 9:54 AM Christiana Kiser MD - 10/10/2024 11:00 AM EDTPatient Instructions Note Date & Type Note Facility 10-11-2024 Telephone encounter Note Scheduled 11/09/2024 [facility] Work Phone: 10-11-2024 Miscellaneous Notes Scheduled 11/09/2024 Being scheduled for RLE revision Dr. Arrington Not on AC Continue ASA Hold plavix 7 days prior CASE request sent Hybrid OR is Dr. Arrington preference Otherwise any open room with c arm Barbara Pandey RN documented in this encounter [facility] 10-10-2024 Telephone encounter Note Being scheduled for RLE revision Dr. Arrington Not on AC Continue ASA Hold plavix 7 days prior CASE request sent Hybrid OR is Dr. Arrington preference Otherwise any open room with c arm Barbara Pandey RN [facility] 10-10-2024 Note HNO ID: [id number] Author: CHRISTIANA ARRINGTON MD Service: ? Author Type: Physician Type: Progress Notes Filed: 10/10/2024 11:11 Note Text: [facility] [place] DEPARTMENT OF VASCULAR SURGERY OUTPATIENT VISIT DATE October 10, 2024 OUTPATIENT VISIT TYPE ESTABLISHED SERVICE DATE: 10/10/2024 SERVICE TIME: 11:00 AM PRIMARY CARE PHYSICIAN: Linda Parish MD HISTORY OF PRESENT ILLNESS: Mr. Mladonado is a 63 year old male who presents today for a vascular surgery follow-up visit Surgery/Procedure Date: 02/14/2024 Surgeon(s)/Proceduralist(s) and Mash Filter Cloth Changer(s): * Christiana Arrington MD - Primary INTERVENTIONAL PROCEDURE: Ultrasound-guided left common femoral access right lower extremity angiogram Balloon angioplasty of proximal anastamosis and mid bypass stenosis with 4mm drug-coated balloon. Surgery/Procedure Date: 07/29/2023 Surgeon(s)/Proceduralist(s) and Mash Filter Cloth Changer(s): * Christiana Arrington MD - Primary INTERVENTIONAL PROCEDURE: Ultrasound-guided left common femoral access right lower extremity angiogram Balloon angioplasty of proximal anastamosis with 4mm drug-coated balloon. Surgery/Procedure Date: 05/14/2023 Surgeon(s)/Proceduralist(s) and Mash Filter Cloth Changer(s): * Christiana Arrington MD - Primary Procedure(s): Redo right above knee popliteal to posterior tibial bypass with reversed right saphenous vein Ligation of prior fem-tp trunk bypass right saphenous vein harvest Completion angiogram Surgery/Procedure Date: 04/29/2023 Surgeon(s)/Proceduralist(s) and Mash Filter Cloth Changer(s): * Cecille Sarabia MD - Primary Procedure Performed: 1) Diagnostic angiogram of the RIGHT lower extremity 2) Penumbra suction thrombectomy with CAT 7 3) 4mm DCB of the distal PTFE-TP trunk anastomosis 4) 3mm POBA of the distal TPT into the PT 4) Completion angiogram 5) Placement of a Proglide percutaneous closure device in the LEFT groin. Prior bypass w tapered 4-7mm ptfe fem-bk pop, occluded within months of insertion prompting lysis, now s/p fem-pt bypass w vein Stopped ac due to gi bleed, hosptilaized 06/19/23-06/25/23, 08/[address] Aranda, then went to [facility] and seen by Dr Grey.. PAST MEDICAL HISTORY Diagnosis Date Acute diverticulitis Aortic insufficiency Arthritis Ascending aorta dilatation 10/28/2023 Bursitis of elbow left Coronary artery disease mild nonobstructive Diverticulitis History of transfusion Hypertension Migraines PAD (peripheral artery disease) Palpitations Pinched nerve 11/04/2020 low back Psoriasis Raynaud disease SVT (supraventricular tachycardia) (HCC) Tobacco abuse PAST SURGICAL HISTORY Procedure Laterality Date COLON SURGERY HX COLONOSCOPY FLX DX W/COLLJ SPEC WHEN PFRMD 05/23/2014 Colonoscopy COLONOSCOPY FLX DX W/COLLJ SPEC WHEN PFRMD 09/24/2017 Colonoscopy COLONOSCOPY FLX DX W/COLLJ SPEC WHEN PFRMD 04/16/2021 ESOPHAGOGASTRODUODENOSCOPY TRANSORAL DIAGNOSTIC 05/23/2014 EGD ESOPHAGOGASTRODUODENOSCOPY TRANSORAL DIAGNOSTIC 08/15/2014 EGD HEMORRHOIDECTOMY INT AND XTRNL 2/> COLUMN/FAHEEM 10/01/2017 left posterior PAST SURGICAL HISTORY OF 2008 Pain injections lumbar PAST SURGICAL HISTORY OF 08/03/2022 colostomy PAST SURGICAL HISTORY OF Right 12/2022 right popliteal to tibioperoneal trunk bypass - REVISION 05/14/2023 RT/LT HEART CATHETERS 08/09/2020 [facility] SOCIAL HISTORY Social History Tobacco Use Smoking status: Former Current packs/day: 0.00 Average packs/day: 1 pack/day for 40.0 years (40.0 ttl pk-yrs) Types: Cigarettes Start date: 1983 Quit date: 04/24/2023 Years since quittin.4 Passive exposure: Past Smokeless tobacco: Never Vaping Use Vaping status: Never Used Substance Use Topics Alcohol use: Yes Alcohol/week: 3.0 standard drinks of alcohol Types: 3 Cans of beer per week Comment: 3-4 drinks per day 5 days per week; Drug use: No MEDICATIONS: FLUoxetine (PROZAC) 40 mg capsule Take 1 capsule by mouth once daily. pantoprazole DR (PROTONIX) 40 mg tablet Take 1 tablet by mouth daily before breakfast. Take on empty stomach, 1/2 hr before meal. risankizumab-rzaa (SKYRIZI) 150 mg/mL injection Inject 150 mg subcutaneously once every month. atorvastatin (LIPITOR) 80 mg tablet Take 1 tablet by mouth daily at bedtime. clopidogrel (PLAVIX) 75 mg tablet Take 1 tablet by mouth once daily. oxyCODONE-acetaminophen (PERCOCET) 5-325 mg tablet Take by mouth every 8 hours as needed for pain. dicyclomine (BENTYL) 20 mg tablet Take 1 tablet by mouth two times a day as needed (abdominal pain). dilTIAZem CR (TIAZAC, TAZTIA XT) 120 mg 24 hr capsule Take 1 capsule by mouth once daily. amitriptyline (ELAVIL) 25 mg tablet Take 1 tablet by mouth daily at bedtime. iron polysaccharide complex (FERREX-150) 150 mg iron capsule Take 150 mg by mouth once daily. ondansetron orally disintegrating (ZOFRAN ODT) 4 mg disintegrating tablet tiZANidine (ZANAFLEX) 4 mg tablet Take 4 mg by mouth daily at bedtim (more content not included)... [facility] 10-10-2024 History of Present illness Narrative Images from the original note were not included. [facility] [place] DEPARTMENT OF VASCULAR SURGERY OUTPATIENT VISIT DATE October 10, 2024 OUTPATIENT VISIT TYPE ESTABLISHED SERVICE DATE: 10/10/2024 SERVICE TIME: 11:00 AM PRIMARY CARE PHYSICIAN: Linda Parish MD HISTORY OF PRESENT ILLNESS: Mr. Maldonado is a 63 year old male who presents today for a vascular surgery follow-up visit Surgery/Procedure Date: 02/14/2024 Surgeon(s)/Proceduralist(s) and Mash Filter Cloth Changer(s): * Christiana Arrington MD - Primary INTERVENTIONAL PROCEDURE: Ultrasound-guided left common femoral access right lower extremity angiogram Balloon angioplasty of proximal anastamosis and mid bypass stenosis with 4mm drug-coated balloon. Surgery/Procedure Date: 07/29/2023 Surgeon(s)/Proceduralist(s) and Mash Filter Cloth Changer(s): * Christiana Arrington MD - Primary INTERVENTIONAL PROCEDURE: Ultrasound-guided left common femoral access right lower extremity angiogram Balloon angioplasty of proximal anastamosis with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 disease) Palpitations Pinched nerve 11/04/2020 low back Psoriasis Raynaud disease SVT (supraventricular tachycardia) (HCC) Tobacco abuse PAST SURGICAL HISTORY Procedure Laterality Date COLON SURGERY HX COLONOSCOPY FLX DX W/COLLJ SPEC WHEN PFRMD 05/23/2014 Colonoscopy COLONOSCOPY FLX DX W/COLLJ SPEC WHEN PFRMD 09/24/2017 Colonoscopy COLONOSCOPY FLX DX W/COLLJ SPEC WHEN PFRMD 04/16/2021 ESOPHAGOGASTRODUODENOSCOPY TRANSORAL DIAGNOSTIC 05/23/2014 EGD ESOPHAGOGASTRODUODENOSCOPY TRANSORAL DIAGNOSTIC 08/15/2014 EGD HEMORRHOIDECTOMY INT & XTRNL 2/> COLUMN/FAHEEM 10/01/2017 left posterior PAST SURGICAL HISTORY OF 2008 Pain injections lumbar PAST SURGICAL HISTORY OF 08/03/2022 colostomy PAST SURGICAL HISTORY OF Right 12/2022 right popliteal to tibioperoneal trunk bypass - REVISION 05/14/2023 RT/LT HEART CATHETERS 08/09/2020 [facility] SOCIAL HISTORY Social History Tobacco Use Smoking status: Former Current packs/day: 0.00 Average packs/day: 1 pack/day for 40.0 years (40.0 ttl pk-yrs) Types: Cigarettes Start date: 1983 Quit date: 04/24/2023 Years since quittin.3 Passive exposure: Past Smokeless tobacco: Never Vaping Use Vaping status: Never Used Substance Use Topics Alcohol use: Yes Alcohol/week: 3.0 standard drinks of alcohol Types: 3 Cans of beer per week Comment: 3-4 drinks per day 5 days per week; Drug use: No MEDICATIONS: risankizumab-rzaa (SKYRIZI) 150 mg/mL injection Inject 150 mg subcutaneously once every month. atorvastatin (LIPITOR) 80 mg tablet Take 1 tablet by mouth daily at bedtime. clopidogrel (PLAVIX) 75 mg tablet Take 1 tablet by mouth once daily. oxyCODONE-acetaminophen (PERCOCET) 5-325 mg tablet Take by mouth every 8 hours as needed for pain. dicyclomine (BENTYL) 20 mg tablet Take 1 tablet by mouth two times a day as needed (abdominal pain). dilTIAZem CR (TIAZAC, TAZTIA XT) 120 mg 24 hr capsule Take 1 capsule by mouth once daily. amitriptyline (ELAVIL) 25 mg tablet Take 1 tablet by mouth daily at bedtime. iron polysaccharide complex (FERREX-150) 150 mg iron capsule Take 150 mg by mouth once daily. ondansetron orally disintegrating (ZOFRAN ODT) 4 mg disintegrating tablet tiZANidine (ZANAFLEX) 4 mg tablet Take 4 mg by mouth daily at bedtime. FLUoxetine (PROZAC) 40 mg capsule Take 1 capsule by mouth once daily. pantoprazole DR (PROTONIX) 40 mg tablet Take 1 tablet by mouth daily before breakfast. Take on empty stomach, 1/2 hr before meal. therapeutic multivitamin-minerals (THERA-M PLUS) 9 mg iron-400 mcg tablet Take 1 tablet by mouth once daily. thiamine (VITAMIN B1) 100 mg tablet Take 1 tablet by mouth once daily. aspirin 81 mg chewable tablet Take 1 tablet by mouth once daily. gabapentin (NEURONTIN) 300 mg capsule Take 1 capsule by mouth every 12 hours. TREMFYA 100 mg/mL AutoInjector Inject 100 mg subcutaneously every 8 weeks. rimegepant (NURTEC ODT) 75 mg disintegrating tablet Nurtec ODT 75 mg disintegrating tablet Take 1 tab under tongue at onset of migraine. Max 1 in 24 hours. acetaminophen (TYLENOL) 325 mg tablet Take 650 mg by mouth every 6 hours as needed. ALLERGIES: ALLERGIES Allergen Reactions Verapamil Rash PHYSICAL EXAM: There were no vitals taken for this visit. General: Alert and oriented Extremities: No deformity, no edema or tenderness, no joint swelling or clubbing. Vascular: palpable bypass in R medial knee Diagnostic tests reviewed for today's visit: Most recent labs Most recent imaging 09/05/24 duplex: RLE SFA 50-99%, proximal naastamosis 50-99%, psv 645, velocity <40 within graft 09/05/24 RABI 0.72, LABI 1.13 05/30/24 RABI 1.04, LABI 1.11 05/30/24 duplex: proximal anastamosis stenosis 50-99% 08/21/23 duplex: prox anastamosis 50-995, distal anastamosis 50-99% 08/21/23 RABI 0.91, LABI 1.26 07/07/23 RABI 0.46, LABI 1.12 07/07/23 duplex: proximal anastamosis 5-99% stenosis, but remains patent 06/09/23 osh study report: RABI 1.10, LABI 1.23, read by Emile Hernandez 06/09/23 osh study report: no stenosis in bypass, elevated velocities IMPRESSION: Mr. Maldonado is a 63 year old male s/p RLE fem-pt bypass w stenosis, but presrved SAVANNA. Will cont monitor for now PLAN and RECOMMENDATIONS: This bypass is failing. I anticipate he will need surgical revision and interposition We discussed doing that now vs yet another angiogram to buy more time. He prefers revision Will get cta abd/pel/LE runoff and arm/leg vein mapping Risks, benefits, alternatives and personnel discussed with patient who consents to proceed. SIGNATURE: Christiana Arrington MD PATIENT NAME: Choco Maldonado DATE: September 05, 2024 TIME: 9:04 AM documented in this encounter [facility] 08-16-2024 Telephone encounter Note The office got the patient reschedule for 09/15/2024 in Irais Phillip [place] August 16, 2024 9:47 AM [facility] 08-16-2024 Miscellaneous Notes The office got the patient reschedule for 09/15/2024 in Irais Phillip [place] August 16, 2024 9:47 AM Our office called the patient and lvm for them to call our office back to reschedule office appt on 09/06/24 w/ Dr. Stevens. Due to a schedule change the patient appt must be moved to 09/13/24 in [place]. Lenin Phillip MA August 14, 2024 9:55 AM documented in this encounter [facility] 08-14-2024 Telephone encounter Note Our office called the patient and lvm for them to call our office back to reschedule office appt on 09/06/24 w/ Dr. Stevens. Due to a schedule change the patient appt must be moved to 09/13/24 in [place]. Lenin Phillip MA August 14, 2024 9:55 AM [facility] 08-09-2024 History of Present illness Narrative Radiology Service Progress Note PATIENT NAME: Choco Maldonado DATE OF SERVICE: August 09, 2024 TIME: 2:39 PM PATIENT IDENTITY VERIFICATION COMPLETED USING TWO (2) IDENTIFIERS: Name and Date of confirmed by patient verbally. FALL SCREENING: Has the patient had 2 falls in the last year or 1 fall with injury or currently using an Ambulatory Assistive Device (Walker, Cane, Wheelchair, Crutches, etc.)? No PATIENT GENDER DATA: Assigned male at PATIENT RELEVANT IMPLANT DATA REVIEWED: Not Applicable PATIENT PRESENTS WITH AN IMPLANTABLE OR ATTACHED SPOT WASHER: No RADIOLOGY DEPARTMENT: General X-ray: Exam(s) Completed: Rib X-Ray: Right PERIPHERAL IV DATA: Not applicable SIGNED BY: RT Anayeli(Dian) August 09, 2024 2:39 PM documented in this encounter [facility] 08-09-2024 Note HNO ID: [id number] Author: DAYO GONZALES RT(R) Service: Radiology Author Type: Technologist Type: Progress Notes Filed: 08/09/2024 14:48 Note Text: Radiology Service Progress Note PATIENT NAME: Choco Maldonado DATE OF SERVICE: August 09, 2024 TIME: 2:39 PM PATIENT IDENTITY VERIFICATION COMPLETED USING TWO (2) IDENTIFIERS: Name and Date of confirmed by patient verbally. FALL SCREENING: Has the patient had 2 falls in the last year or 1 fall with injury or currently using an Ambulatory Assistive Device (Walker, Cane, Wheelchair, Crutches, etc.)? No PATIENT GENDER DATA: Assigned male at PATIENT RELEVANT IMPLANT DATA REVIEWED: Not Applicable PATIENT PRESENTS WITH AN IMPLANTABLE OR ATTACHED SPOT WASHER: No RADIOLOGY DEPARTMENT: General X-ray: Exam(s) Completed: Rib X-Ray: Right PERIPHERAL IV DATA: Not applicable SIGNED BY: RT Anayeli(Dian) August 09, 2024 2:[address] [facility] 08-09-2024 Note HNO ID: [id number] Author: LINDA PARISH MD Service: ? Author Type: Physician Type: Progress Notes Filed: 08/09/2024 14:33 Note Text: Patient presents with: Fall Back Pain HPI: Patient presents today for office visit for back pain after fall. Slipped and fell on his stairs at home Wednesday08/07/24. Was mechanical landed on his side walking up the steps Having pain in his upper right side/back. More over his ribs. Did not his head or LOC. No shortness of breath or cough. No urinary issues. Not bad when sitting still. More painful with movement. Cannot lay on his right side. No radicular symptoms. Did not go to ER. Does have some percocet at home he is using. Sees Dr Calvert MEDICATIONS: Current Outpatient Medications Medication Sig risankizumab-rzaa (SKYRIZI) 150 mg/mL injection Inject 150 mg subcutaneously once every month. atorvastatin (LIPITOR) 80 mg tablet Take 1 tablet by mouth daily at bedtime. clopidogrel (PLAVIX) 75 mg tablet Take 1 tablet by mouth once daily. oxyCODONE-acetaminophen (PERCOCET) 5-325 mg tablet Take by mouth every 8 hours as needed for pain. dicyclomine (BENTYL) 20 mg tablet Take 1 tablet by mouth two times a day as needed (abdominal pain). dilTIAZem CR (TIAZAC, TAZTIA XT) 120 mg 24 hr capsule Take 1 capsule by mouth once daily. amitriptyline (ELAVIL) 25 mg tablet Take 1 tablet by mouth daily at bedtime. iron polysaccharide complex (FERREX-150) 150 mg iron capsule Take 150 mg by mouth once daily. ondansetron orally disintegrating (ZOFRAN ODT) 4 mg disintegrating tablet tiZANidine (ZANAFLEX) 4 mg tablet Take 4 mg by mouth daily at bedtime. FLUoxetine (PROZAC) 40 mg capsule Take 1 capsule by mouth once daily. pantoprazole DR (PROTONIX) 40 mg tablet Take 1 tablet by mouth daily before breakfast. Take on empty stomach, 1/2 hr before meal. therapeutic multivitamin-minerals (THERA-M PLUS) 9 mg iron-400 mcg tablet Take 1 tablet by mouth once daily. thiamine (VITAMIN B1) 100 mg tablet Take 1 tablet by mouth once daily. aspirin 81 mg chewable tablet Take 1 tablet by mouth once daily. gabapentin (NEURONTIN) 300 mg capsule Take 1 capsule by mouth every 12 hours. TREMFYA 100 mg/mL AutoInjector Inject 100 mg subcutaneously every 8 weeks. rimegepant (NURTEC ODT) 75 mg disintegrating tablet Nurtec ODT 75 mg disintegrating tablet Take 1 tab under tongue at onset of migraine. Max 1 in 24 hours. acetaminophen (TYLENOL) 325 mg tablet Take 650 mg by mouth every 6 hours as needed. fremanezumab-vfrm (AJOVY AUTOINJECTOR) 225 mg/1.5 mL auto-injector Ajovy 225 mg/1.5 mL subcutaneous auto-injector Inject 1.5 mL subcutaneously once a month (Patient not taking: Reported on 05/09/2024) No current facility-administered medications for this visit. ALLERGIES: ALLERGIES Allergen Reactions Verapamil Rash PAST MEDICAL HISTORY Diagnosis Date Acute diverticulitis Aortic insufficiency Arthritis Ascending aorta dilatation 10/28/2023 Bursitis of elbow left Coronary artery disease mild nonobstructive Diverticulitis History of transfusion Hypertension Migraines PAD (peripheral artery disease) Palpitations Pinched nerve 11/04/2020 low back Psoriasis Raynaud disease SVT (supraventricular tachycardia) ([facility]) Tobacco abuse PAST SURGICAL HISTORY Procedure Laterality Date COLON SURGERY HX COLONOSCOPY FLX DX W/COLLJ SPEC WHEN PFRMD 05/23/2014 Colonoscopy COLONOSCOPY FLX DX W/COLLJ SPEC WHEN PFRMD 09/24/2017 Colonoscopy COLONOSCOPY FLX DX W/COLLJ SPEC WHEN PFRMD 04/16/2021 ESOPHAGOGASTRODUODENOSCOPY TRANSORAL DIAGNOSTIC 05/23/2014 EGD ESOPHAGOGASTRODUODENOSCOPY TRANSORAL DIAGNOSTIC 08/15/2014 EGD HEMORRHOIDECTOMY INT AND XTRNL 2/> COLUMN/FAHEEM 10/01/2017 left posterior PAST SURGICAL HISTORY OF 2008 Pain injections lumbar PAST SURGICAL HISTORY OF 08/03/2022 colostomy PAST SURGICAL HISTORY OF Right 12/2022 right popliteal to tibioperoneal trunk bypass - REVISION 05/14/2023 RT/LT HEART CATHETERS 08/09/2020 [facility] FAMILY HISTORY Problem Relation Age of Onset Breast Cancer Mother Diabetes Father Heart Father other (Raynauds) Daughter other (Raynauds) Son Diabetes Maternal Grandfather Social History Tobacco Use Smoking status: Former Current packs/day: 0.00 Average packs/day: 1 pack/day for 40.0 years (40.0 ttl pk-yrs) Types: Cigarettes Start date: 1983 Quit date: 04/24/2023 Years since quittin.2 Passive exposure: Past Smokeless tobacco: Never Vaping Use Vaping status: Never Used Substance Use Topics Alcohol use: Yes Alcohol/week: 3.0 standard drinks of alcohol Types: 3 Cans of beer per week Comment: 3-4 drinks per day 5 days per week; Drug use: No Reviewed current medications, allergies, past medical history, surgical history, family history and social history today. REVIEW OF SYSTEMS All other reviewed and negative other than HPI. HEALTH MAINTENANCE: Reviewed he (more content not included)... [facility] 08-09-2024 History of Present illness Narrative Patient presents with: Fall Back Pain HPI: Patient presents today for office visit for back pain after fall. Slipped and fell on his stairs at home Wednesday08/07/24. Was mechanical landed on his side walking up the steps Having pain in his upper right side/back. More over his ribs. Did not his head or LOC. No shortness of breath or cough. No urinary issues. Not bad when sitting still. More painful with movement. Cannot lay on his right side. No radicular symptoms. Did not go to ER. Does have some percocet at home he is using. Sees Dr Calvert MEDICATIONS: Current Outpatient Medications Medication Sig risankizumab-rzaa (SKYRIZI) 150 mg/mL injection Inject 150 mg subcutaneously once every month. atorvastatin (LIPITOR) 80 mg tablet Take 1 tablet by mouth daily at bedtime. clopidogrel (PLAVIX) 75 mg tablet Take 1 tablet by mouth once daily. oxyCODONE-acetaminophen (PERCOCET) 5-325 mg tablet Take by mouth every 8 hours as needed for pain. dicyclomine (BENTYL) 20 mg tablet Take 1 tablet by mouth two times a day as needed (abdominal pain). dilTIAZem CR (TIAZAC, TAZTIA XT) 120 mg 24 hr capsule Take 1 capsule by mouth once daily. amitriptyline (ELAVIL) 25 mg tablet Take 1 tablet by mouth daily at bedtime. iron polysaccharide complex (FERREX-150) 150 mg iron capsule Take 150 mg by mouth once daily. ondansetron orally disintegrating (ZOFRAN ODT) 4 mg disintegrating tablet tiZANidine (ZANAFLEX) 4 mg tablet Take 4 mg by mouth daily at bedtime. FLUoxetine (PROZAC) 40 mg capsule Take 1 capsule by mouth once daily. pantoprazole DR (PROTONIX) 40 mg tablet Take 1 tablet by mouth daily before breakfast. Take on empty stomach, 1/2 hr before meal. therapeutic multivitamin-minerals (THERA-M PLUS) 9 mg iron-400 mcg tablet Take 1 tablet by mouth once daily. thiamine (VITAMIN B1) 100 mg tablet Take 1 tablet by mouth once daily. aspirin 81 mg chewable tablet Take 1 tablet by mouth once daily. gabapentin (NEURONTIN) 300 mg capsule Take 1 capsule by mouth every 12 hours. TREMFYA 100 mg/mL AutoInjector Inject 100 mg subcutaneously every 8 weeks. rimegepant (NURTEC ODT) 75 mg disintegrating tablet Nurtec ODT 75 mg disintegrating tablet Take 1 tab under tongue at onset of migraine. Max 1 in 24 hours. acetaminophen (TYLENOL) 325 mg tablet Take 650 mg by mouth every 6 hours as needed. fremanezumab-vfrm (AJOVY AUTOINJECTOR) 225 mg/1.5 mL auto-injector Ajovy 225 mg/1.5 mL subcutaneous auto-injector Inject 1.5 mL subcutaneously once a month (Patient not taking: Reported on 05/09/2024) No current facility-administered medications for this visit. ALLERGIES: ALLERGIES Allergen Reactions Verapamil Rash PAST MEDICAL HISTORY Diagnosis Date Acute diverticulitis Aortic insufficiency Arthritis Ascending aorta dilatation 10/28/2023 Bursitis of elbow left Coronary artery disease mild nonobstructive Diverticulitis History of transfusion Hypertension Migraines PAD (peripheral artery disease) Palpitations Pinched nerve 11/04/2020 low back Psoriasis Raynaud disease SVT (supraventricular tachycardia) (HCC) Tobacco abuse PAST SURGICAL HISTORY Procedure Laterality Date COLON SURGERY HX COLONOSCOPY FLX DX W/COLLJ SPEC WHEN PFRMD 05/23/2014 Colonoscopy COLONOSCOPY FLX DX W/COLLJ SPEC WHEN PFRMD 09/24/2017 Colonoscopy COLONOSCOPY FLX DX W/COLLJ SPEC WHEN PFRMD 04/16/2021 ESOPHAGOGASTRODUODENOSCOPY TRANSORAL DIAGNOSTIC 05/23/2014 EGD ESOPHAGOGASTRODUODENOSCOPY TRANSORAL DIAGNOSTIC 08/15/2014 EGD HEMORRHOIDECTOMY INT & XTRNL 2/> COLUMN/FAHEEM 10/01/2017 left posterior PAST SURGICAL HISTORY OF 2008 Pain injections lumbar PAST SURGICAL HISTORY OF 08/03/2022 colostomy PAST SURGICAL HISTORY OF Right 12/2022 right popliteal to tibioperoneal trunk bypass - REVISION 05/14/2023 RT/LT HEART CATHETERS 08/09/2020 [facility] FAMILY HISTORY Problem Relation Age of Onset Breast Cancer Mother Diabetes Father Heart Father other (Raynauds) Daughter other (Raynauds) Son Diabetes Maternal Grandfather Social History Tobacco Use Smoking status: Former Current packs/day: 0.00 Average packs/day: 1 pack/day for 40.0 years (40.0 ttl pk-yrs) Types: Cigarettes Start date: 1983 Quit date: 04/24/2023 Years since quittin.2 Passive exposure: Past Smokeless tobacco: Never Vaping Use Vaping status: Never Used Substance Use Topics Alcohol use: Yes Alcohol/week: 3.0 standard drinks of alcohol Types: 3 Cans of beer per week Comment: 3-4 drinks per day 5 days per week; Drug use: No Reviewed current medications, allergies, past medical history, surgical history, family history and social history today. REVIEW OF SYSTEMS All other reviewed and negative other than HPI. HEALTH MAINTENANCE: Reviewed health maintenance issues today and recommended the following in detail. BP Controlled (<130/80) Never done VITALS: BP 132/60 Pulse 64 Ht 188 cm (6' 2) Wt 93 kg (205 lb) SpO2 98% BMI 26.32 kg/m Last 4 Encounter Wt Readings: Date: Wt: 05/30/2024 94.3 kg (208 lb) 05/09/2024 94.3 kg (208 lb) 04/17/2024 94.4 kg (208 lb 1.8 oz) 03/22/2024 93.7 kg (206 lb 8 oz) PHYSICAL EXAMINATION: General appearance: Well appearing, alert, in no acute distress, well-hydrated, well nourished. Skin: Skin color, texture, turgor normal, no suspicious rashes or lesions Head: Normocephalic, no masses, lesions, tenderness or abnormalities Chest wall. Tender over right lower rib cage near the anterior axillar line. No deformity or step off. No instability. No bruising. Lungs: Lungs clear to auscultation. No wheezing, rhonchi, rales Heart: RRR without murmur, gallop, or rubs. No ectopy Abdomen: Normal abdominal exam, Abdomen soft, non-tender. Bowel sounds normal. No masses, organomegaly ASSESSMENT/PLAN: 1. Rib pain - ICD9: 786.50, ICD10: R07.81 - ice and rest. Red flags for re-assessment reviewed with patient in detail. Call if symptoms worsen at all or if not better in one to two weeks - XR RIBS/CHEST 3V AP RIB/OBLS/CXR RIGHT Linda Parish MD documented in this encounter [facility] 07-26-2024 Telephone encounter Note Patient informed letter ready for pickup. Filed with medical records. Eli Tyson MA [facility] 07-26-2024 Miscellaneous Notes Patient informed letter ready for pickup. Filed with medical records. Eli Tyson MA Will placed on provider desk to sign. printed Patient calling he received letter today that he could be doing jury duty. Patient said he can not do jury duty, he has colostomy and circulatory issues with his leg. He has 5 days to get excuse returned with the letter. Patient would like to car pick up driver note when it is ready. Please advise documented in this encounter [facility] 07-24-2024 Telephone encounter Note Will placed on provider desk to sign. [facility] 07-24-2024 Telephone encounter Note printed [facility] 07-24-2024 Telephone encounter Note Patient calling he received letter today that he could be doing jury duty. Patient said he can not do jury duty, he has colostomy and circulatory issues with his leg. He has 5 days to get excuse returned with the letter. Patient would like to car pick up driver note when it is ready. Please advise [facility] 05-30-2024 Note HNO ID: [id number] Author: CHRISTIANA ARRINGTON MD Service: ? Author Type: Physician Type: Progress Notes Filed: 05/30/2024 09:45 Note Text: [facility] [place] DEPARTMENT OF VASCULAR SURGERY OUTPATIENT VISIT DATE May 30, 2024 OUTPATIENT VISIT TYPE ESTABLISHED SERVICE DATE: 05/30/2024 SERVICE TIME: 9:35 AM PRIMARY CARE PHYSICIAN: Linda Parish MD HISTORY OF PRESENT ILLNESS: Mr. Maldonado is a 63 year old male who presents today for a vascular surgery follow-up visit Surgery/Procedure Date: 02/14/2024 Surgeon(s)/Proceduralist(s) and Mash Filter Cloth Changer(s): * Christiana Arrington MD - Primary INTERVENTIONAL PROCEDURE: Ultrasound-guided left common femoral access right lower extremity angiogram Balloon angioplasty of proximal anastamosis and mid bypass stenosis with 4mm drug-coated balloon. Surgery/Procedure Date: 07/29/2023 Surgeon(s)/Proceduralist(s) and Mash Filter Cloth Changer(s): * Christiana Arrington MD - Primary INTERVENTIONAL PROCEDURE: Ultrasound-guided left common femoral access right lower extremity angiogram Balloon angioplasty of proximal anastamosis with 4mm drug-coated balloon. Surgery/Procedure Date: 05/14/2023 Surgeon(s)/Proceduralist(s) and Mash Filter Cloth Changer(s): * Christiana Arrington MD - Primary Procedure(s): Redo right above knee popliteal to posterior tibial bypass with reversed right saphenous vein Ligation of prior fem-tp trunk bypass right saphenous vein harvest Completion angiogram Surgery/Procedure Date: 04/29/2023 Surgeon(s)/Proceduralist(s) and Mash Filter Cloth Changer(s): * Cecille Sarabia MD - Primary Procedure Performed: 1) Diagnostic angiogram of the RIGHT lower extremity 2) Penumbra suction thrombectomy with CAT 7 3) 4mm DCB of the distal PTFE-TP trunk anastomosis 4) 3mm POBA of the distal TPT into the PT 4) Completion angiogram 5) Placement of a Proglide percutaneous closure device in the LEFT groin. Prior bypass w tapered 4-7mm ptfe fem-bk pop, occluded within months of insertion prompting lysis, now s/p fem-pt bypass w vein Stopped ac due to gi bleed, hosptilaized 06/19/23-06/25/23, 08/[address] Aranda, then went to [facility] and seen by Dr Grey PAST MEDICAL HISTORY Diagnosis Date Acute diverticulitis Aortic insufficiency Arthritis Ascending aorta dilatation (HCC) 10/28/2023 Bursitis of elbow left Coronary artery disease mild nonobstructive Diverticulitis History of transfusion Hypertension Migraines PAD (peripheral artery disease) ([facility]) Palpitations Pinched nerve 11/04/2020 low back Psoriasis Raynaud disease SVT (supraventricular tachycardia) ([facility]) Tobacco abuse PAST SURGICAL HISTORY Procedure Laterality Date COLON SURGERY HX COLONOSCOPY FLX DX W/COLLJ SPEC WHEN PFRMD 05/23/2014 Colonoscopy COLONOSCOPY FLX DX W/COLLJ SPEC WHEN PFRMD 09/24/2017 Colonoscopy COLONOSCOPY FLX DX W/COLLJ SPEC WHEN PFRMD 04/16/2021 ESOPHAGOGASTRODUODENOSCOPY TRANSORAL DIAGNOSTIC 05/23/2014 EGD ESOPHAGOGASTRODUODENOSCOPY TRANSORAL DIAGNOSTIC 08/15/2014 EGD HEMORRHOIDECTOMY INT AND XTRNL 2/> COLUMN/FAHEEM 10/01/2017 left posterior PAST SURGICAL HISTORY OF 2008 Pain injections lumbar PAST SURGICAL HISTORY OF 08/03/2022 colostomy PAST SURGICAL HISTORY OF Right 12/2022 right popliteal to tibioperoneal trunk bypass - REVISION 05/14/2023 RT/LT HEART CATHETERS 08/09/2020 [facility] SOCIAL HISTORY Social History Tobacco Use Smoking status: Former Current packs/day: 0.00 Average packs/day: 1 pack/day for 40.0 years (40.0 ttl pk-yrs) Types: Cigarettes Start date: 1983 Quit date: 04/24/2023 Years since quittin.1 Passive exposure: Past Smokeless tobacco: Never Vaping Use Vaping status: Never Used Substance Use Topics Alcohol use: Yes Alcohol/week: 3.0 standard drinks of alcohol Types: 3 Cans of beer per week Comment: 3-4 drinks per day 5 days per week; Drug use: No MEDICATIONS: risankizumab-rzaa (SKYRIZI) 150 mg/mL injection Inject 150 mg subcutaneously once every month. atorvastatin (LIPITOR) 80 mg tablet Take 1 tablet by mouth daily at bedtime. clopidogrel (PLAVIX) 75 mg tablet Take 1 tablet by mouth once daily. oxyCODONE-acetaminophen (PERCOCET) 5-325 mg tablet Take by mouth every 8 hours as needed for pain. dicyclomine (BENTYL) 20 mg tablet Take 1 tablet by mouth two times a day as needed (abdominal pain). dilTIAZem CR (TIAZAC, TAZTIA XT) 120 mg 24 hr capsule Take 1 capsule by mouth once daily. iron polysaccharide complex (FERREX-150) 150 mg iron capsule Take 150 mg by mouth once daily. ondansetron orally disintegrating (ZOFRAN ODT) 4 mg disintegrating tablet tiZANidine (ZANAFLEX) 4 mg tablet Take 4 mg by mouth daily at bedtime. FLUoxetine (PROZAC) 40 mg capsule Take 1 capsule by mouth once daily. pantoprazole DR (PROTONIX) 40 mg tablet Take 1 tablet by mouth daily before breakfast. Take on empty stomach, 1/2 hr before meal. therapeutic multivitamin-minerals (THERA-M PLUS) 9 mg iron-400 (more content not included)... [facility] 05-30-2024 History of Present illness Narrative Images from the original note were not included. Heart [facility] [place] DEPARTMENT OF VASCULAR SURGERY OUTPATIENT VISIT DATE May 30, 2024 OUTPATIENT VISIT TYPE ESTABLISHED SERVICE DATE: 05/30/2024 SERVICE TIME: 9:35 AM PRIMARY CARE PHYSICIAN: Linda Parish MD HISTORY OF PRESENT ILLNESS: Mr. Maldonado is a 63 year old male who presents today for a vascular surgery follow-up visit Surgery/Procedure Date: 02/14/2024 Surgeon(s)/Proceduralist(s) and Mash Filter Cloth Changer(s): * Christiana Arrington MD - Primary INTERVENTIONAL PROCEDURE: Ultrasound-guided left common femoral access right lower extremity angiogram Balloon angioplasty of proximal anastamosis and mid bypass stenosis with 4mm drug-coated balloon. Surgery/Procedure Date: 07/29/2023 Surgeon(s)/Proceduralist(s) and Mash Filter Cloth Changer(s): * Christiana Arrington MD - Primary INTERVENTIONAL PROCEDURE: Ultrasound-guided left common femoral access right lower extremity angiogram Balloon angioplasty of proximal anastamosis with 4mm drug-coated balloon. Surgery/Procedure Date: 05/14/2023 Surgeon(s)/Proceduralist(s) and Mash Filter Cloth Changer(s): * Christiana Arrington MD - Primary Procedure(s): Redo right above knee popliteal to posterior tibial bypass with reversed right saphenous vein Ligation of prior fem-tp trunk bypass right saphenous vein harvest Completion angiogram Surgery/Procedure Date: 04/29/2023 Surgeon(s)/Proceduralist(s) and Mash Filter Cloth Changer(s): * Cecille Sarabia MD - Primary Procedure Performed: 1) Diagnostic angiogram of the RIGHT lower extremity 2) Penumbra suction thrombectomy with CAT 7 3) 4mm DCB of the distal PTFE-TP trunk anastomosis 4) 3mm POBA of the distal TPT into the PT 4) Completion angiogram 5) Placement of a Proglide percutaneous closure device in the LEFT groin. Prior bypass w tapered 4-7mm ptfe fem-bk pop, occluded within months of insertion prompting lysis, now s/p fem-pt bypass w vein Stopped ac due to gi bleed, hosptilaized 06/19/23-06/25/23, 08/[address] Aranda, then went to [facility] and seen by Dr Grey PAST MEDICAL HISTORY Diagnosis Date Acute diverticulitis Aortic insufficiency Arthritis Ascending aorta dilatation (HCC) 10/28/2023 Bursitis of elbow left Coronary artery disease mild nonobstructive Diverticulitis History of transfusion Hypertension Migraines PAD (peripheral artery disease) ([facility]) Palpitations Pinched nerve 11/04/2020 low back Psoriasis Raynaud disease SVT (supraventricular tachycardia) ([facility]) Tobacco abuse PAST SURGICAL HISTORY Procedure Laterality Date COLON SURGERY HX COLONOSCOPY FLX DX W/COLLJ SPEC WHEN PFRMD 05/23/2014 Colonoscopy COLONOSCOPY FLX DX W/COLLJ SPEC WHEN PFRMD 09/24/2017 Colonoscopy COLONOSCOPY FLX DX W/COLLJ SPEC WHEN PFRMD 04/16/2021 ESOPHAGOGASTRODUODENOSCOPY TRANSORAL DIAGNOSTIC 05/23/2014 EGD ESOPHAGOGASTRODUODENOSCOPY TRANSORAL DIAGNOSTIC 08/15/2014 EGD HEMORRHOIDECTOMY INT & XTRNL 2/> COLUMN/FAHEEM 10/01/2017 left posterior PAST SURGICAL HISTORY OF 2008 Pain injections lumbar PAST SURGICAL HISTORY OF 08/03/2022 colostomy PAST SURGICAL HISTORY OF Right 12/2022 right popliteal to tibioperoneal trunk bypass - REVISION 05/14/2023 RT/LT HEART CATHETERS 08/09/2020 [facility] SOCIAL HISTORY Social History Tobacco Use Smoking status: Former Current packs/day: 0.00 Average packs/day: 1 pack/day for 40.0 years (40.0 ttl pk-yrs) Types: Cigarettes Start date: 1983 Quit date: 04/24/2023 Years since quittin.1 Passive exposure: Past Smokeless tobacco: Never Vaping Use Vaping status: Never Used Substance Use Topics Alcohol use: Yes Alcohol/week: 3.0 standard drinks of alcohol Types: 3 Cans of beer per week Comment: 3-4 drinks per day 5 days per week; Drug use: No MEDICATIONS: risankizumab-rzaa (SKYRIZI) 150 mg/mL injection Inject 150 mg subcutaneously once every month. atorvastatin (LIPITOR) 80 mg tablet Take 1 tablet by mouth daily at bedtime. clopidogrel (PLAVIX) 75 mg tablet Take 1 tablet by mouth once daily. oxyCODONE-acetaminophen (PERCOCET) 5-325 mg tablet Take by mouth every 8 hours as needed for pain. dicyclomine (BENTYL) 20 mg tablet Take 1 tablet by mouth two times a day as needed (abdominal pain). dilTIAZem CR (TIAZAC, TAZTIA XT) 120 mg 24 hr capsule Take 1 capsule by mouth once daily. iron polysaccharide complex (FERREX-150) 150 mg iron capsule Take 150 mg by mouth once daily. ondansetron orally disintegrating (ZOFRAN ODT) 4 mg disintegrating tablet tiZANidine (ZANAFLEX) 4 mg tablet Take 4 mg by mouth daily at bedtime. FLUoxetine (PROZAC) 40 mg capsule Take 1 capsule by mouth once daily. pantoprazole DR (PROTONIX) 40 mg tablet Take 1 tablet by mouth daily before breakfast. Take on empty stomach, 1/2 hr before meal. therapeutic multivitamin-minerals (THERA-M PLUS) 9 mg iron-400 mcg tablet Take 1 tablet by mouth once daily. thiamine (VITAMIN B1) 100 mg tablet Take 1 tablet by mouth once daily. aspirin 81 mg chewable tablet Take 1 tablet by mouth once daily. gabapentin (NEURONTIN) 300 mg capsule Take 1 capsule by mouth every 12 hours. rimegepant (NURTEC ODT) 75 mg disintegrating tablet Nurtec ODT 75 mg disintegrating tablet Take 1 tab under tongue at onset of migraine. Max 1 in 24 hours. acetaminophen (TYLENOL) 325 mg tablet Take 650 mg by mouth every 6 hours as needed. amitriptyline (ELAVIL) 25 mg tablet Take 1 tablet by mouth daily at bedtime. TREMFYA 100 mg/mL AutoInjector Inject 100 mg subcutaneously every 8 weeks. fremanezumab-vfrm (AJOVY AUTOINJECTOR) 225 mg/1.5 mL auto-injector Ajovy 225 mg/1.5 mL subcutaneous auto-injector Inject 1.5 mL subcutaneously once a month (Patient not taking: Reported on 05/09/2024) ALLERGIES: ALLERGIES Allergen Reactions Verapamil Rash PHYSICAL EXAM: BP 172/88 (BP Site: Left Arm, BP Position: Sitting, BP Cuff Size: Regular Adult) Ht 188 cm (6' 2) Wt 94.3 kg (208 lb) BMI 26.71 kg/m General: Alert and oriented Extremities: No deformity, no edema or tenderness, no joint swelling or clubbing. Vascular: palpable bypass in R medial knee Diagnostic tests reviewed for today's visit: Most recent labs Most recent imaging 05/30/24 RABI 1.04, LABI 1.11 05/30/24 duplex: proximal anastamosis stenosis 50-99% 08/21/23 duplex: prox anastamosis 50-995, distal anastamosis 50-99% 08/21/23 RABI 0.91, LABI 1.26 07/07/23 RABI 0.46, LABI 1.12 07/07/23 duplex: proximal anastamosis 5-99% stenosis, but remains patent 06/09/23 osh study report: RABI 1.10, LABI 1.23, read by Emile Hernandez 06/09/23 osh study report: no stenosis in bypass, elevated velocities IMPRESSION: Mr. Maldonado is a 63 year old male s/p RLE fem-pt bypass w stenosis, but presrved SAVANNA. Will cont monitor for now PLAN and RECOMMENDATIONS: Cont optimal medical mgmt Fu 3 months SAVANNA, RLE art duplex SIGNATURE: Christiana Arrington MD PATIENT NAME: Choco Maldonado DATE: May 30, 2024 TIME: 9:35 AM documented in this encounter [facility] 05-09-2024 History of Present illness Narrative Patient presents with: Follow Up HPI: Patient presents today for office visit for follow up. Following with Pulmonary, Gastro, vascular, cardiology, Hem/Onc and Neurology. Still sees pain mgt. Dr. Calvert. Saw Pulm on 04/17/24 CT shows previously seen new nodule has decreased in size and there are no new nodules. Repeat one year. HLD: No myalgias Raynaud's is stable. Emotionally is doing well. Seeing Vascular next month. Still with pains in both his legs. Is about the same. No ulcers or sores on his legs. Saw Derm at [facility] in April. Recently had COVID. Doing well now. Has resolved. Latest Ref Rng 05/01/2024 WBC 3.70 - 11.00 k/uL 8.70 RBC 4.20 - 6.00 m/uL 4.65 Hemoglobin 13.0 - 17.0 g/dL 12.7 (L) Hematocrit 39.0 - 51.0 % 40.7 MCV 80.0 - 100.0 fL 87.5 MCH 26.0 - 34.0 pg 27.3 MCHC 30.5 - 36.0 g/dL 31.2 RDW-CV 11.5 - 15.0 % 17.5 (H) Platelet Count 150 - 400 k/uL 483 (H) MPV 9.0 - 12.7 fL 9.6 Absolute nRBC <0.01 k/uL <0.01 Cholesterol, Total <200 mg/dL 177 Triglyceride <150 mg/dL 385 (H) HDL Cholesterol >39 mg/dL 34 (L) Non HDL Cholesterol <130 mg/dL 143 (H) Fasting Time hrs 13 VLDL Cholesterol <30 mg/dL 77 (H) TC:HDL Ratio <5.10 5.21 (H) LDL Cholesterol <100 mg/dL 66 LDL:HDL Ratio <2.54 1.94 Albumin 3.9 - 4.9 g/dL 4.3 Bilirubin, Total 0.2 - 1.3 mg/dL 0.4 Bilirubin, Direct <0.2 mg/dL <0.2 Alkaline Phosphatase 38 - 113 U/L 118 (H) AST 14 - 40 U/L 22 ALT 10 - 54 U/L 22 Protein, Total 6.3 - 8.0 g/dL 7.9 MEDICATIONS: Current Outpatient Medications Medication Sig risankizumab-rzaa (SKYRIZI) 150 mg/mL injection Inject 150 mg subcutaneously once every month. atorvastatin (LIPITOR) 80 mg tablet Take 1 tablet by mouth daily at bedtime. clopidogrel (PLAVIX) 75 mg tablet Take 1 tablet by mouth once daily. oxyCODONE-acetaminophen (PERCOCET) 5-325 mg tablet Take by mouth every 8 hours as needed for pain. dicyclomine (BENTYL) 20 mg tablet Take 1 tablet by mouth two times a day as needed (abdominal pain). dilTIAZem CR (TIAZAC, TAZTIA XT) 120 mg 24 hr capsule Take 1 capsule by mouth once daily. amitriptyline (ELAVIL) 25 mg tablet Take 1 tablet by mouth daily at bedtime. iron polysaccharide complex (FERREX-150) 150 mg iron capsule Take 150 mg by mouth once daily. ondansetron orally disintegrating (ZOFRAN ODT) 4 mg disintegrating tablet tiZANidine (ZANAFLEX) 4 mg tablet Take 4 mg by mouth daily at bedtime. FLUoxetine (PROZAC) 40 mg capsule Take 1 capsule by mouth once daily. pantoprazole DR (PROTONIX) 40 mg tablet Take 1 tablet by mouth daily before breakfast. Take on empty stomach, 1/2 hr before meal. therapeutic multivitamin-minerals (THERA-M PLUS) 9 mg iron-400 mcg tablet Take 1 tablet by mouth once daily. thiamine (VITAMIN B1) 100 mg tablet Take 1 tablet by mouth once daily. aspirin 81 mg chewable tablet Take 1 tablet by mouth once daily. gabapentin (NEURONTIN) 300 mg capsule Take 1 capsule by mouth every 12 hours. TREMFYA 100 mg/mL AutoInjector Inject 100 mg subcutaneously every 8 weeks. rimegepant (NURTEC ODT) 75 mg disintegrating tablet Nurtec ODT 75 mg disintegrating tablet Take 1 tab under tongue at onset of migraine. Max 1 in 24 hours. acetaminophen (TYLENOL) 325 mg tablet Take 650 mg by mouth every 6 hours as needed. fremanezumab-vfrm (AJOVY AUTOINJECTOR) 225 mg/1.5 mL auto-injector Ajovy 225 mg/1.5 mL subcutaneous auto-injector Inject 1.5 mL subcutaneously once a month (Patient not taking: Reported on 05/09/2024) No current facility-administered medications for this visit. ALLERGIES: ALLERGIES Allergen Reactions Verapamil Rash PAST MEDICAL HISTORY Diagnosis Date Acute diverticulitis Aortic insufficiency Arthritis Ascending aorta dilatation ([facility]) 10/28/2023 Bursitis of elbow left Coronary artery disease mild nonobstructive Diverticulitis History of transfusion Hypertension Migraines PAD (peripheral artery disease) ([facility]) Palpitations Pinched nerve 11/04/2020 low back Psoriasis Raynaud disease SVT (supraventricular tachycardia) ([facility]) Tobacco abuse PAST SURGICAL HISTORY Procedure Laterality Date COLON SURGERY HX COLONOSCOPY FLX DX W/COLLJ SPEC WHEN PFRMD 05/23/2014 Colonoscopy COLONOSCOPY FLX DX W/COLLJ SPEC WHEN PFRMD 09/24/2017 Colonoscopy COLONOSCOPY FLX DX W/COLLJ SPEC WHEN PFRMD 04/16/2021 ESOPHAGOGASTRODUODENOSCOPY TRANSORAL DIAGNOSTIC 05/23/2014 EGD ESOPHAGOGASTRODUODENOSCOPY TRANSORAL DIAGNOSTIC 08/15/2014 EGD HEMORRHOIDECTOMY INT & XTRNL 2/> COLUMN/FAHEEM 10/01/2017 left posterior PAST SURGICAL HISTORY OF 2008 Pain injections lumbar PAST SURGICAL HISTORY OF 08/03/2022 colostomy PAST SURGICAL HISTORY OF Right 12/2022 right popliteal to tibioperoneal trunk bypass - REVISION 05/14/2023 RT/LT HEART CATHETERS 08/09/2020 [facility] FAMILY HISTORY Problem Relation Age of Onset Breast Cancer Mother Diabetes Father Heart Father other (Raynauds) Daughter other (Raynauds) Son Diabetes Maternal Grandfather Social History Tobacco Use Smoking status: Former Current packs/day: 0.00 Average packs/day: 1 pack/day for 40.0 years (40.0 ttl pk-yrs) Types: Cigarettes Start date: 1983 Quit date: 04/24/2023 Years since quittin.0 Passive exposure: Past Smokeless tobacco: Never Vaping Use Vaping status: Never Used Substance Use Topics Alcohol use: Yes Alcohol/week: 3.0 standard drinks of alcohol Types: 3 Cans of beer per week Comment: 3-4 drinks per day 5 days per week; Drug use: No Reviewed current medications, allergies, past medical history, surgical history, family history and social history today. REVIEW OF SYSTEMS No falls. All other reviewed and negative other than HPI. HEALTH MAINTENANCE: Reviewed health maintenance issues today and recommended the following in detail. BP Controlled (<130/80) Never done Shingrix Vaccine(1 of 2) Never done RSV Vaccine(1 - Risk 60-74 years 1-dose series) Never done VITALS: BP 130/58 Pulse 67 Ht 188 cm (6' 2) Wt 94.3 kg (208 lb) SpO2 98% BMI 26.71 kg/m Last 4 Encounter Wt Readings: Date: Wt: 04/17/2024 94.4 kg (208 lb 1.8 oz) 03/22/2024 93.7 kg (206 lb 8 oz) 01/28/2024 94.3 kg (207 lb 14.3 oz) 01/26/2024 94.3 kg (208 lb) PHYSICAL EXAMINATION: General appearance: Well appearing, alert, in no acute distress, well-hydrated, well nourished. Skin: Skin color, texture, turgor normal, no suspicious rashes or lesions Lungs: Lungs clear to auscultation. No wheezing, rhonchi, rales Heart: RRR . Murmur which has bene noted in the past previously gallop, or rubs. No ectopy Abdomen: Normal abdominal exam, Abdomen soft, non-tender. Bowel sounds normal. No masses, organomegaly Extremities: No deformities, edema, skin discoloration, clubbing or cyanosis. Good capillary refill. Musculoskeletal: No joint swelling, deformity, or tenderness ASSESSMENT/PLAN: 1. Mixed hyperlipidemia - ICD9: 272.2, ICD10: E78.2 (primary diagnosis) - Controlled - Continue current medications 2. SVT (supraventricular tachycardia) (HCC) - ICD9: 427.89, ICD10: I47.10 - stable. 3. PVD (peripheral vascular disease) (HCC) - ICD9: 443.9, ICD10: I73.9 - per vascular. 4. PAD (peripheral artery disease) ([facility]) - ICD9: 443.9, ICD10: I73.9 - stable. Following with vascular. 5. Bypass graft stenosis, subsequent encounter - ICD9: V58.89, 996.72, ICD10: T82.858D - seeing vascular soon. 6. Ascending aorta dilatation (HCC) - ICD9: 447.71, ICD10: I77.810 - follows with cardiology. 7. Gastroesophageal reflux disease, unspecified whether esophagitis present - ICD9: 530.81, ICD10: K21.9 - stable. 8. History of GI bleed - ICD9: V12.79, ICD10: Z87.19 - no evidence of recurrent bleed 9. Iron deficiency anemia, unspecified iron deficiency anemia type - ICD9: 280.9, ICD10: D50.9 - stable. 10. Psoriasis - ICD9: 696.1, ICD10: L40.9 - per derm 11. Depression with anxiety - ICD9: 300.4, ICD10: F41.8 - Continue current medications. Notify us if any difficulties are noted. 12. Hyperviscosity - ICD9: 273.3, ICD10: D75.9 - reinforced follow up with hematology. Linda Parish MD documented in this encounter [facility] 05-09-2024 Note HNO ID: [id number] Author: LINDA PARISH MD Service: ? Author Type: Physician Type: Progress Notes Filed: 05/09/2024 14:36 Note Text: Patient presents with: Follow Up HPI: Patient presents today for office visit for follow up. Following with Pulmonary, Gastro, vascular, cardiology, Hem/Onc and Neurology. Still sees pain mgt. Dr. Calvert. Saw Pulm on 04/17/24 CT shows previously seen new nodule has decreased in size and there are no new nodules. Repeat one year. HLD: No myalgias Raynaud's is stable. Emotionally is doing well. Seeing Vascular next month. Still with pains in both his legs. Is about the same. No ulcers or sores on his legs. Saw Derm at [facility] in April. Recently had COVID. Doing well now. Has resolved. Latest Ref Rng 05/01/2024 WBC 3.70 - 11.00 k/uL 8.70 RBC 4.20 - 6.00 m/uL 4.65 Hemoglobin 13.0 - 17.0 g/dL 12.7 (L) Hematocrit 39.0 - 51.0 % 40.7 MCV 80.0 - 100.0 fL 87.5 MCH 26.0 - 34.0 pg 27.3 MCHC 30.5 - 36.0 g/dL 31.2 RDW-CV 11.5 - 15.0 % 17.5 (H) Platelet Count 150 - 400 k/uL 483 (H) MPV 9.0 - 12.7 fL 9.6 Absolute nRBC <0.01 k/uL <0.01 Cholesterol, Total <200 mg/dL 177 Triglyceride <150 mg/dL 385 (H) HDL Cholesterol >39 mg/dL 34 (L) Non HDL Cholesterol <130 mg/dL 143 (H) Fasting Time hrs 13 VLDL Cholesterol <30 mg/dL 77 (H) TC:HDL Ratio <5.10 5.21 (H) LDL Cholesterol <100 mg/dL 66 LDL:HDL Ratio <2.54 1.94 Albumin 3.9 - 4.9 g/dL 4.3 Bilirubin, Total 0.2 - 1.3 mg/dL 0.4 Bilirubin, Direct <0.2 mg/dL <0.2 Alkaline Phosphatase 38 - 113 U/L 118 (H) AST 14 - 40 U/L 22 ALT 10 - 54 U/L 22 Protein, Total 6.3 - 8.0 g/dL 7.9 MEDICATIONS: Current Outpatient Medications Medication Sig risankizumab-rzaa (SKYRIZI) 150 mg/mL injection Inject 150 mg subcutaneously once every month. atorvastatin (LIPITOR) 80 mg tablet Take 1 tablet by mouth daily at bedtime. clopidogrel (PLAVIX) 75 mg tablet Take 1 tablet by mouth once daily. oxyCODONE-acetaminophen (PERCOCET) 5-325 mg tablet Take by mouth every 8 hours as needed for pain. dicyclomine (BENTYL) 20 mg tablet Take 1 tablet by mouth two times a day as needed (abdominal pain). dilTIAZem CR (TIAZAC, TAZTIA XT) 120 mg 24 hr capsule Take 1 capsule by mouth once daily. amitriptyline (ELAVIL) 25 mg tablet Take 1 tablet by mouth daily at bedtime. iron polysaccharide complex (FERREX-150) 150 mg iron capsule Take 150 mg by mouth once daily. ondansetron orally disintegrating (ZOFRAN ODT) 4 mg disintegrating tablet tiZANidine (ZANAFLEX) 4 mg tablet Take 4 mg by mouth daily at bedtime. FLUoxetine (PROZAC) 40 mg capsule Take 1 capsule by mouth once daily. pantoprazole DR (PROTONIX) 40 mg tablet Take 1 tablet by mouth daily before breakfast. Take on empty stomach, 1/2 hr before meal. therapeutic multivitamin-minerals (THERA-M PLUS) 9 mg iron-400 mcg tablet Take 1 tablet by mouth once daily. thiamine (VITAMIN B1) 100 mg tablet Take 1 tablet by mouth once daily. aspirin 81 mg chewable tablet Take 1 tablet by mouth once daily. gabapentin (NEURONTIN) 300 mg capsule Take 1 capsule by mouth every 12 hours. TREMFYA 100 mg/mL AutoInjector Inject 100 mg subcutaneously every 8 weeks. rimegepant (NURTEC ODT) 75 mg disintegrating tablet Nurtec ODT 75 mg disintegrating tablet Take 1 tab under tongue at onset of migraine. Max 1 in 24 hours. acetaminophen (TYLENOL) 325 mg tablet Take 650 mg by mouth every 6 hours as needed. fremanezumab-vfrm (AJOVY AUTOINJECTOR) 225 mg/1.5 mL auto-injector Ajovy 225 mg/1.5 mL subcutaneous auto-injector Inject 1.5 mL subcutaneously once a month (Patient not taking: Reported on 05/09/2024) No current facility-administered medications for this visit. ALLERGIES: ALLERGIES Allergen Reactions Verapamil Rash PAST MEDICAL HISTORY Diagnosis Date Acute diverticulitis Aortic insufficiency Arthritis Ascending aorta dilatation (HCC) 10/28/2023 Bursitis of elbow left Coronary artery disease mild nonobstructive Diverticulitis History of transfusion Hypertension Migraines PAD (peripheral artery disease) ([facility]) Palpitations Pinched nerve 11/04/2020 low back Psoriasis Raynaud disease SVT (supraventricular tachycardia) ([facility]) Tobacco abuse PAST SURGICAL HISTORY Procedure Laterality Date COLON SURGERY HX COLONOSCOPY FLX DX W/COLLJ SPEC WHEN PFRMD 05/23/2014 Colonoscopy COLONOSCOPY FLX DX W/COLLJ SPEC WHEN PFRMD 09/24/2017 Colonoscopy COLONOSCOPY FLX DX W/COLLJ SPEC WHEN PFRMD 04/16/2021 ESOPHAGOGASTRODUODENOSCOPY TRANSORAL DIAGNOSTIC 05/23/2014 EGD ESOPHAGOGASTRODUODENOSCOPY TRANSORAL DIAGNOSTIC 08/15/2014 EGD HEMORRHOIDECTOMY INT AND XTRNL 2/> COLUMN/FAHEEM 10/01/2017 left posterior PAST SURGICAL HISTORY OF 2008 Pain injections lumbar PAST SURGICAL HISTORY OF 08/03/2022 colostomy PAST SURGICAL HISTORY OF Right 12/2022 right popliteal to tibioperoneal trunk bypass - REVISION 05/14/2023 RT/LT HEART CATHETE (more content not included)... [facility] 04-24-2024 Telephone encounter Note Advised he would need an appointment. Kiarra Avina MA [facility] 04-24-2024 Miscellaneous Notes Advised he would need an appointment. Kiarra Avina MA documented in this encounter [facility] 04-17-2024 Instructions Leslie Ibrahim APRN.KEVIN - 04/17/2024 10:48 AM EST Lung Nodules: Previously seen new nodule have decreased in size and there are no new nodules of concern. Please return in one year for the following 2 visits on the same day: 1) Annual low-dose CT chest 2)Lung cancer screening Provider visit. This recommendation is subject to change pending the final report from radiology. I will notify you of the final radiology report recommendations when available by [employer] message, letter, or phone call. We will also notify your referring provider/PCP of the results and recommendations. If you didn t schedule this before you left the office or need to reschedule, you can call in to schedule it anytime: [facility] [place] [phone] [facility] [phone] All other [facility] locations [phone] Feel free to reach out for any questions or concerns, Leslie Ibrahim APRN.CNP Lung Cancer Screening [phone] documented in this encounter [facility] 04-17-2024 History of Present illness Narrative Images from the original note were not included. Lung Cancer Screening Pulmonary Nodule Follow-Up Current or Ex-smoker? [Ex] Exam Type: follow-up LDCT Number of Pack Years: 40 Current smoker (=0) or Number of Years since Quit: 1 The patient's smoking history is similar to prior year shared decision visit. Chief Complaint: Lung nodule History of Present Illness: Choco Maldonado is a 63 year old male who is presenting today for a 6 month follow-up from LDCT scan dated 10/11/23 for LUNG RADS Category 4B finding of a RUL 13mm part solid lung nodule. This nodule was reported as new, though had been present on prior scan but showed increase in density compared to a scan in August 2023 Respiratory symptoms include: SOB: Yes with multiple flight of stairs Chest tightness: No Coughing: No Hemoptysis: No Wheezing: No Night Sweats: No Recent Respiratory Infection: No Unintentional weight loss: No Current respiratory medication: none Activity: Any limitations to patient's activity are due to chronic leg pain from his PVD and back pain. ECOG PERFORMANCE STATUS: 1- Restricted in physically strenuous activity. Carries out light duty. Modified Medical [employer] [place] Dyspnea Scale (MMRC) I only get breathless with strenous exercise 0 Past Medical History: PAST MEDICAL HISTORY Diagnosis Date Acute diverticulitis Aortic insufficiency Arthritis Ascending aorta dilatation (HCC) 10/28/2023 Bursitis of elbow left Coronary artery disease mild nonobstructive Diverticulitis History of transfusion Hypertension Migraines PAD (peripheral artery disease) (HCC) Palpitations Pinched nerve 11/04/2020 low back Psoriasis Raynaud disease SVT (supraventricular tachycardia) (HCC) Tobacco abuse Surgical Hx: PAST SURGICAL HISTORY Procedure Laterality Date COLON SURGERY HX COLONOSCOPY FLX DX W/COLLJ SPEC WHEN PFRMD 05/23/2014 Colonoscopy COLONOSCOPY FLX DX W/COLLJ SPEC WHEN PFRMD 09/24/2017 Colonoscopy COLONOSCOPY FLX DX W/COLLJ SPEC WHEN PFRMD 04/16/2021 ESOPHAGOGASTRODUODENOSCOPY TRANSORAL DIAGNOSTIC 05/23/2014 EGD ESOPHAGOGASTRODUODENOSCOPY TRANSORAL DIAGNOSTIC 08/15/2014 EGD HEMORRHOIDECTOMY INT & XTRNL 2/> COLUMN/FAHEEM 10/01/2017 left posterior PAST SURGICAL HISTORY OF 2008 Pain injections lumbar PAST SURGICAL HISTORY OF 08/03/2022 colostomy PAST SURGICAL HISTORY OF Right 12/2022 right popliteal to tibioperoneal trunk bypass - REVISION 05/14/2023 RT/LT HEART CATHETERS 08/09/2020 [facility] Family Hx: FAMILY HISTORY Problem Relation Age of Onset Breast Cancer Mother Diabetes Father Heart Father other (Raynauds) Daughter other (Raynauds) Son Diabetes Maternal Grandfather Allergies: ALLERGIES Allergen Reactions Verapamil Rash Social History Tobacco Use: Types: Cigarettes Review Of Systems: See HPI for ROS All of the remainder systems were reviewed and negative. PHYSICAL EXAMINATION: BP 142/80[Repeat BP[ Pulse 56 Wt 208 lb 1.8 oz (94.4kg) SpO2 99% General appearance: Alert, pleasant. Well-appearing, in no visible distress. Skin: Not pallorous. Not diaphoretic. No jaundice. No cyanosis HEENT: No palpable cervical or supraclavicular lymphadenopathy. No thyromegaly. Lungs: Clear to auscultation bilaterally. No wheeze. No crackles. No rhonchi. Respiratory effort normal. Heart: Regular rate and rhythm. No murmur. Extremities: Adequate capillary refill. No digital clubbing. No peripheral edema. Neuro: Alert and oriented. Speech intact. Muscle strength grossly intact bilaterally The remainder of the physical exam is otherwise negative. Diagnostic Data RUL (98)-area of waxing/waning opacity, decreased since 04/17/24 10/11/23 03/09/23 09/07/22 I have personally reviewed and confirmed the imaging findings. CT imaging done today was reviewed independently by practitioner and awaiting radiology review. CT was compared to prior CT chest. Last CT/CTA Chest/Lungs CT LUNG SCREEN WO IVCON Exam End: 10/11/2023 11:24 AM (Final result) Narrative: * * *Final Report* * * DATE OF EXAM: Oct 11 2023 11:24AM [facility] 0562 - CT LUNG SCREEN WO IVCON / PROCEDURE REASON: multiple diagnoses * * * * Physician Interpretation * * * * EXAMINATION: CHEST CT WITHOUT CONTRAST (LOW-DOSE CT LUNG CANCER SCREENING PROTOCOL) CLINICAL HISTORY: Lung cancer LDCT screening ? absence of signs or symptoms of lung cancer. Nicotine dependence (cigarettes). Subsequent (annual) Technique: Spiral CT acquisition of the chest from the thoracic inlet to the upper abdomen without contrast. MQ: CTLCS_6 Patient characteristics: * Hyge-fw-Gbzxi: 1960; Age at exam: 62 years * Gender: Male * Lung Disease: Asymptomatic (no signs or symptoms of lung disease) * Number of Pack Years: 39 * Current smoker (=0) or Number of Years since Quit: 0 * Ordering provider and NPI: BRIANA BOB [id number] * Interpreting radiologist and NPI: Vladislav [id number] Exam acquisition parameters: * Exam Date: 10/11/2023 11:24 AM * Site: [facility] * * CT System Physicist Astrophysics: LeanKit * CT System Model: ZapMe * Tube Current-Time (mA-sec): 32.5 * Peak Voltage (kV): 120V * Scan Time (sec): 5.29 * Scan Volume (z-length, cm): 32.40 * Pitch: 0.984 * Slice Thickness (mm): 1.25 * CT Dose-Length Product: 114 mGy*cm * CT Dose Index: 2.88mGy * CT Dose Reduction Method: Iterative recon and mAs-kVp adjusted using patient size-age COMPARISON: Prior lung screen dated 03/09/2023 RESULT: Are nodules present? Yes, 1-5 nodules Lung nodule comments: 3 mm right upper lobe nodule (84) unchanged. 13 mm part solid nodular opacity posterior right upper lobe (102) new from prior. Other findings: Aortic root calcifications. Mild coronary calcifications. Mild degenerative changes of the thoracic spine. Bronchial thickening and mild upper lobe predominant emphysema. Right middle lobe and lingular peribronchial opacity likely atelectasis. Impression: IMPRESSION: LungRADS category: 4B LungRADS modifier: None LungRADS 0 reason: n/a Recommendations: Chest CT with or without contrast, PET/CT and/or tissue sampling depending on the probability of malignancy and comorbidities. PET/CT may be used when there is a >= 8 mm solid component. Reference: [employer]. Lung CT Screening Reporting and Data System (Lung-RADS). Available at: http://www.acr.org/Quality-Safety/Reso urces/LungRADS Bartacker: ANNALISE Transcribe Date/Time: Oct 11 2023 2:58P Dictated by : HÉCTOR DUGGAN MD This examination was interpreted and the report reviewed and electronically signed by: HÉCTOR DUGGAN MD on Oct 11 2023 3:05PM EST Last CT Chest - Impression Only No resulted procedures found. Last XR Chest - Impression Only XR CHEST 2V FRONTAL/LAT Exam End: 08/17/2023 2:10 PM (Final result) Impression: IMPRESSION: No acute radiographic abnormality. ... Pulmonary Function Testing: No textual results found for the specified procedure(s). No data to display No data to display No data to display No data to display No data to display Assessment and Plan: 1. Pulmonary Nodule: Patient has a RUL 13mm part solid opacity that has been waxing and waning since it was first seen in August 2022. This opacity disappeared in March 2023, and reappeared on a CTA chest in August 2023 (done at outside facility). When compared to the prior scan in October 2023, the opacity appears decreased in size and likely represents area of atelectasis. All other previously seen nodules are stable (unchanged), and no new nodules of concern were seen on the exam. Recommended follow-up in one year. This recommendation is subject to change, pending final radiology report. Leslie Ibrahim APRN.CNP April 17, 2024 8:09 AM documented in this encounter [facility] 04-17-2024 Note HNO ID: [id number] Author: LESLIE IBRAHIM APRN.CNP Service: ? Author Type: Nurse Practitioner Type: Progress Notes Filed: 04/17/2024 13:00 Note Text: Lung Cancer Screening Pulmonary Nodule Follow-Up Current or Ex-smoker? [Ex] Exam Type: follow-up LDCT Number of Pack Years: 40 Current smoker (=0) or Number of Years since Quit: 1 The patient's smoking history is similar to prior year shared decision visit. Chief Complaint: Lung nodule History of Present Illness: Choco Maldonado is a 63 year old male who is presenting today for a 6 month follow-up from LDCT scan dated 10/11/23 for LUNG RADS Category 4B finding of a RUL 13mm part solid lung nodule. This nodule was reported as new, though had been present on prior scan but showed increase in density compared to a scan in August 2023 Respiratory symptoms include: SOB: Yes with multiple flight of stairs Chest tightness: No Coughing: No Hemoptysis: No Wheezing: No Night Sweats: No Recent Respiratory Infection: No Unintentional weight loss: No Current respiratory medication: none Activity: Any limitations to patient's activity are due to chronic leg pain from his PVD and back pain. ECOG PERFORMANCE STATUS: 1- Restricted in physically strenuous activity. Carries out light duty. Modified Medical Research [place] Dyspnea Scale (MMRC) I only get breathless with strenous exercise 0 Past Medical History: PAST MEDICAL HISTORY Diagnosis Date Acute diverticulitis Aortic insufficiency Arthritis Ascending aorta dilatation (HCC) 10/28/2023 Bursitis of elbow left Coronary artery disease mild nonobstructive Diverticulitis History of transfusion Hypertension Migraines PAD (peripheral artery disease) ([facility]) Palpitations Pinched nerve 11/04/2020 low back Psoriasis Raynaud disease SVT (supraventricular tachycardia) ([facility]) Tobacco abuse Surgical Hx: PAST SURGICAL HISTORY Procedure Laterality Date COLON SURGERY HX COLONOSCOPY FLX DX W/COLLJ SPEC WHEN PFRMD 05/23/2014 Colonoscopy COLONOSCOPY FLX DX W/COLLJ SPEC WHEN PFRMD 09/24/2017 Colonoscopy COLONOSCOPY FLX DX W/COLLJ SPEC WHEN PFRMD 04/16/2021 ESOPHAGOGASTRODUODENOSCOPY TRANSORAL DIAGNOSTIC 05/23/2014 EGD ESOPHAGOGASTRODUODENOSCOPY TRANSORAL DIAGNOSTIC 08/15/2014 EGD HEMORRHOIDECTOMY INT AND XTRNL 2/> COLUMN/FAHEEM 10/01/2017 left posterior PAST SURGICAL HISTORY OF 2008 Pain injections lumbar PAST SURGICAL HISTORY OF 08/03/2022 colostomy PAST SURGICAL HISTORY OF Right 12/2022 right popliteal to tibioperoneal trunk bypass - REVISION 05/14/2023 RT/LT HEART CATHETERS 08/09/2020 [facility] Family Hx: FAMILY HISTORY Problem Relation Age of Onset Breast Cancer Mother Diabetes Father Heart Father other (Raynauds) Daughter other (Raynauds) Son Diabetes Maternal Grandfather Allergies: ALLERGIES Allergen Reactions Verapamil Rash Social History Tobacco Use: Types: Cigarettes Review Of Systems: See HPI for ROS All of the remainder systems were reviewed and negative. PHYSICAL EXAMINATION: BP 142/80[Repeat BP[ Pulse 56 Wt 208 lb 1.8 oz (94.4kg) SpO2 99% General appearance: Alert, pleasant. Well-appearing, in no visible distress. Skin: Not pallorous. Not diaphoretic. No jaundice. No cyanosis HEENT: No palpable cervical or supraclavicular lymphadenopathy. No thyromegaly. Lungs: Clear to auscultation bilaterally. No wheeze. No crackles. No rhonchi. Respiratory effort normal. Heart: Regular rate and rhythm. No murmur. Extremities: Adequate capillary refill. No digital clubbing. No peripheral edema. Neuro: Alert and oriented. Speech intact. Muscle strength grossly intact bilaterally The remainder of the physical exam is otherwise negative. Diagnostic Data RUL (98)-area of waxing/waning opacity, decreased since 04/17/24 10/11/23 03/09/23 09/07/22 I have personally reviewed and confirmed the imaging findings. CT imaging done today was reviewed independently by practitioner and awaiting radiology review. CT was compared to prior CT chest. Last CT/CTA Chest/Lungs CT LUNG SCREEN WO IVCON Exam End: 10/11/2023 11:24 AM (Final result) Narrative: * * *Final Report* * * DATE OF EXAM: Oct 11 2023 11:24AM [facility] 0562 - CT LUNG SCREEN WO IVCON / PROCEDURE REASON: multiple diagnoses * * * * Physician Interpretation * * * * EXAMINATION: CHEST CT WITHOUT CONTRAST (LOW-DOSE CT LUNG CANCER SCREENING PROTOCOL) CLINICAL HISTORY: Lung cancer LDCT screening ? absence of signs or symptoms of lung cancer. Nicotine dependence (cigarettes). Subsequent (annual) Technique: Spiral CT acquisition of the chest from the thoracic inlet to the upper abdomen without contrast. MQ: CTLCS_6 Patient characteristics: * Yijm-rq-Mkslx: 1960; Age at exam: 62 years * Gender: Male * Lung Disease: Asymptomatic (no signs or symptoms of lung disease) * Number of Pack Years: 39 * Current smoke (more content not included)... [facility] 04-17-2024 History of Present illness Narrative Radiology Service Progress Note PATIENT NAME: Choco Maldonado DATE OF SERVICE: April 17, 2024 TIME: 9:58 AM PATIENT IDENTITY VERIFICATION COMPLETED USING TWO (2) IDENTIFIERS: Name and Date of confirmed by patient verbally. FALL SCREENING: Has the patient had 2 falls in the last year or 1 fall with injury or currently using an Ambulatory Assistive Device (Walker, Cane, Wheelchair, Crutches, etc.)? No PATIENT GENDER DATA: Male PATIENT RELEVANT IMPLANT DATA REVIEWED: Yes PATIENT PRESENTS WITH AN IMPLANTABLE OR ATTACHED SPOT WASHER: No RADIOLOGY DEPARTMENT: CT; Exam(s) Completed: Lung Screening PERIPHERAL IV DATA: Not applicable SIGNED BY: ERIKA Valverde) April 17, 2024 9:58 AM documented in this encounter [facility] 04-17-2024 Note HNO ID: [id number] Author: RADHA ORTIZ RT(R) Service: ? Author Type: [employer] Coord[employer] Type: Progress Notes Filed: 04/17/2024 09:58 Note Text: Radiology Service Progress Note PATIENT NAME: Choco Maldonado DATE OF SERVICE: April 17, 2024 TIME: 9:58 AM PATIENT IDENTITY VERIFICATION COMPLETED USING TWO (2) IDENTIFIERS: Name and Date of confirmed by patient verbally. FALL SCREENING: Has the patient had 2 falls in the last year or 1 fall with injury or currently using an Ambulatory Assistive Device (Walker, Cane, Wheelchair, Crutches, etc.)? No PATIENT GENDER DATA: Male PATIENT RELEVANT IMPLANT DATA REVIEWED: Yes PATIENT PRESENTS WITH AN IMPLANTABLE OR ATTACHED SPOT WASHER: No RADIOLOGY DEPARTMENT: CT; Exam(s) Completed: Lung Screening PERIPHERAL IV DATA: Not applicable SIGNED BY: ERIKA Valverde) April 17, 2024 9:[address] [facility] 04-03-2024 Telephone encounter Note Detailed message left informing patient draw was too soon and to recheck again in one month. Advised him to return call to let office know he received message. Eli Tyson MA [facility] 04-03-2024 Miscellaneous Notes Detailed message left informing patient draw was too soon and to recheck again in one month. Advised him to return call to let office know he received message. Eli Tyson MA Cholesterol is still up however, was not to have labs drawn for another month yet. Is too early. Recheck in one month documented in this encounter [facility] 04-03-2024 Telephone encounter Note Cholesterol is still up however, was not to have labs drawn for another month yet. Is too early. Recheck in one month [facility] 04-03-2024 Telephone encounter Note Please let pt know his blood iron levels have stabilized. Will order a CBC test to be completed in 3 weeks to make sure hemoglobin is not going lower. [facility] 04-03-2024 Miscellaneous Notes Please let pt know his blood iron levels have stabilized. Will order a CBC test to be completed in 3 weeks to make sure hemoglobin is not going lower. documented in this encounter [facility] 03-22-2024 Note HNO ID: [id number] Author: CHOCO STEVENS MD Service: ? Author Type: Physician Type: Progress Notes Filed: 03/22/2024 11:42 Note Text: HPI: Choco Maldonado is a 63 year old male who presents for follow up of Consult. Pt is on Iron once per day. Still had black stool but on Iron vs some ds it's brown. Iron sat still lw but better, ferritin 61, and Hgb now 13.5. In January , had PCI and balloon angioplasty for PVD in RLE on DAPT. Current Outpatient Medications Medication Sig atorvastatin (LIPITOR) 80 mg tablet Take 1 tablet by mouth daily at bedtime. clopidogrel (PLAVIX) 75 mg tablet Take 1 tablet by mouth once daily. oxyCODONE-acetaminophen (PERCOCET) 5-325 mg tablet Take by mouth every 8 hours as needed for pain. dicyclomine (BENTYL) 20 mg tablet Take 1 tablet by mouth two times a day as needed (abdominal pain). dilTIAZem CR (TIAZAC, TAZTIA XT) 120 mg 24 hr capsule Take 1 capsule by mouth once daily. iron polysaccharide complex (FERREX-150) 150 mg iron capsule Take 150 mg by mouth once daily. ondansetron orally disintegrating (ZOFRAN ODT) 4 mg disintegrating tablet tiZANidine (ZANAFLEX) 4 mg tablet Take 4 mg by mouth daily at bedtime. FLUoxetine (PROZAC) 40 mg capsule Take 1 capsule by mouth once daily. pantoprazole DR (PROTONIX) 40 mg tablet Take 1 tablet by mouth daily before breakfast. Take on empty stomach, 1/2 hr before meal. therapeutic multivitamin-minerals (THERA-M PLUS) 9 mg iron-400 mcg tablet Take 1 tablet by mouth once daily. thiamine (VITAMIN B1) 100 mg tablet Take 1 tablet by mouth once daily. aspirin 81 mg chewable tablet Take 1 tablet by mouth once daily. gabapentin (NEURONTIN) 300 mg capsule Take 1 capsule by mouth every 12 hours. TREMFYA 100 mg/mL AutoInjector Inject 100 mg subcutaneously every 8 weeks. fremanezumab-vfrm (AJOVY AUTOINJECTOR) 225 mg/1.5 mL auto-injector Ajovy 225 mg/1.5 mL subcutaneous auto-injector Inject 1.5 mL subcutaneously once a month rimegepant (NURTEC ODT) 75 mg disintegrating tablet Nurtec ODT 75 mg disintegrating tablet Take 1 tab under tongue at onset of migraine. Max 1 in 24 hours. acetaminophen (TYLENOL) 325 mg tablet Take 650 mg by mouth every 6 hours as needed. amitriptyline (ELAVIL) 25 mg tablet Take 1 tablet by mouth daily at bedtime. No current facility-administered medications for this visit. ALLERGIES Allergen Reactions Verapamil Rash REVIEW OF SYSTEMS: GENERAL: No weight loss, malaise or fevers. HEENT: Negative for frequent or significant headaches, No changes in hearing or vision, no nose bleeds or other nasal problems. NECK: Negative for lumps, goiter, pain and significant neck swelling. RESPIRATORY: Negative for cough, hemoptysis, wheezing or shortness of breath CARDIOVASCULAR: Negative for chest pain, leg swelling or palpitations GI: See HPI : No history of dysuria, frequency or incontinence MUSCULOSKELETAL: Negative for joint pain or swelling, back pain or muscle pain. SKIN: Negative for lesions, rash, and itching PSYCH: Negative for sleep disturbance, mood disorder and recent psychosocial stressors NEURO: No history of headaches, syncope, paralysis, seizures or tremors PHYSICAL EXAMINATION: BP 167/74 Pulse 70 Ht 6' 2 (1.88m) Wt 206 lb 8 oz (93.7kg) BMI 26.50 kg/(m2). GENERAL APPEARANCE: Well appearing, alert, in no acute distress, well-hydrated, well nourished. EYES: No icterus ABDOMEN: Normal, soft, non-tender, no masses or organomegaly. ASSESSMENT AND PLAN: ASSESSMENT/PLAN: 1. History of creation of ostomy (HCC) - ICD9: V44.9, ICD10: Z93.9 (primary diagnosis) - hx of diverticulitis w perf and Indu's procedure - Brandstetter following 2. Iron deficiency anemia due to chronic blood loss - ICD9: 280.0, ICD10: D50.0 - stable at this point, Hgb 13.5 last week - If rebleeds may need DB or SB antegrade enteroscopy at Choco Stevens MD [facility] 03-22-2024 History of Present illness Narrative HPI: Choco Maldonado is a 63 year old male who presents for follow up of Consult. Pt is on Iron once per day. Still had black stool but on Iron vs some ds it's brown. Iron sat still lw but better, ferritin 61, and Hgb now 13.5. In January , had PCI and balloon angioplasty for PVD in RLE on DAPT. Current Outpatient Medications Medication Sig atorvastatin (LIPITOR) 80 mg tablet Take 1 tablet by mouth daily at bedtime. clopidogrel (PLAVIX) 75 mg tablet Take 1 tablet by mouth once daily. oxyCODONE-acetaminophen (PERCOCET) 5-325 mg tablet Take by mouth every 8 hours as needed for pain. dicyclomine (BENTYL) 20 mg tablet Take 1 tablet by mouth two times a day as needed (abdominal pain). dilTIAZem CR (TIAZAC, TAZTIA XT) 120 mg 24 hr capsule Take 1 capsule by mouth once daily. iron polysaccharide complex (FERREX-150) 150 mg iron capsule Take 150 mg by mouth once daily. ondansetron orally disintegrating (ZOFRAN ODT) 4 mg disintegrating tablet tiZANidine (ZANAFLEX) 4 mg tablet Take 4 mg by mouth daily at bedtime. FLUoxetine (PROZAC) 40 mg capsule Take 1 capsule by mouth once daily. pantoprazole DR (PROTONIX) 40 mg tablet Take 1 tablet by mouth daily before breakfast. Take on empty stomach, 1/2 hr before meal. therapeutic multivitamin-minerals (THERA-M PLUS) 9 mg iron-400 mcg tablet Take 1 tablet by mouth once daily. thiamine (VITAMIN B1) 100 mg tablet Take 1 tablet by mouth once daily. aspirin 81 mg chewable tablet Take 1 tablet by mouth once daily. gabapentin (NEURONTIN) 300 mg capsule Take 1 capsule by mouth every 12 hours. TREMFYA 100 mg/mL AutoInjector Inject 100 mg subcutaneously every 8 weeks. fremanezumab-vfrm (AJOVY AUTOINJECTOR) 225 mg/1.5 mL auto-injector Ajovy 225 mg/1.5 mL subcutaneous auto-injector Inject 1.5 mL subcutaneously once a month rimegepant (NURTEC ODT) 75 mg disintegrating tablet Nurtec ODT 75 mg disintegrating tablet Take 1 tab under tongue at onset of migraine. Max 1 in 24 hours. acetaminophen (TYLENOL) 325 mg tablet Take 650 mg by mouth every 6 hours as needed. amitriptyline (ELAVIL) 25 mg tablet Take 1 tablet by mouth daily at bedtime. No current facility-administered medications for this visit. ALLERGIES Allergen Reactions Verapamil Rash REVIEW OF SYSTEMS: GENERAL: No weight loss, malaise or fevers. HEENT: Negative for frequent or significant headaches, No changes in hearing or vision, no nose bleeds or other nasal problems. NECK: Negative for lumps, goiter, pain and significant neck swelling. RESPIRATORY: Negative for cough, hemoptysis, wheezing or shortness of breath CARDIOVASCULAR: Negative for chest pain, leg swelling or palpitations GI: See HPI : No history of dysuria, frequency or incontinence MUSCULOSKELETAL: Negative for joint pain or swelling, back pain or muscle pain. SKIN: Negative for lesions, rash, and itching PSYCH: Negative for sleep disturbance, mood disorder and recent psychosocial stressors NEURO: No history of headaches, syncope, paralysis, seizures or tremors PHYSICAL EXAMINATION: BP 167/74 Pulse 70 Ht 6' 2 (1.88m) Wt 206 lb 8 oz (93.7kg) BMI 26.50 kg/(m^2). GENERAL APPEARANCE: Well appearing, alert, in no acute distress, well-hydrated, well nourished. EYES: No icterus ABDOMEN: Normal, soft, non-tender, no masses or organomegaly. ASSESSMENT AND PLAN: ASSESSMENT/PLAN: 1. History of creation of ostomy (HCC) - ICD9: V44.9, ICD10: Z93.9 (primary diagnosis) - hx of diverticulitis w perf and Indu's procedure - Miguer following 2. Iron deficiency anemia due to chronic blood loss - ICD9: 280.0, ICD10: D50.0 - stable at this point, Hgb 13.5 last week - If rebleeds may need DB or SB antegrade enteroscopy at Choco Stevens MD documented in this encounter [facility] 03-16-2024 Telephone encounter Note Please let pt know blood work is getting better. Would like to have it repeated in 2 weeks. It is ordered. Chioma Bassett PA-C [facility] 03-16-2024 Miscellaneous Notes Please let pt know blood work is getting better. Would like to have it repeated in 2 weeks. It is ordered. Chioma Bassett PA-C documented in this encounter [facility] 03-16-2024 Note Addended by: José Manuel PARISH on: 03/16/2024 09:24 AM Modules accepted: Orders [facility] 03-16-2024 Miscellaneous Notes Addended by: LINDA PARISH on: 03/16/2024 09:24 AM Modules accepted: Orders Addended by: NOLAN STEINER on: 03/16/2024 09:22 AM Modules accepted: Orders Patient calling back asking to have the Atorvastatin 80 mg rx sent to [facility]. Reset rx to file. Please advise Spoke with pt and information listed below given. Pt verbalizes understanding. Cuca Banks LPN Ldl cholesterol is still up. Would recommend he consider increasing his lipitor to 80 mg a day to help with his arteries Recheck labs in six weeks. documented in this encounter [facility] 03-16-2024 Note Addended by: NOLAN SCHMIDT on: 03/16/2024 09:22 AM Modules accepted: Orders [facility] 03-16-2024 Telephone encounter Note Patient calling back asking to have the Atorvastatin 80 mg rx sent to [facility]. Reset rx to file. Please advise [facility] 03-16-2024 Telephone encounter Note Spoke with pt and information listed below given. Pt verbalizes understanding. Cuca Banks LPN [facility] 03-16-2024 Telephone encounter Note Ldl cholesterol is still up. Would recommend he consider increasing his lipitor to 80 mg a day to help with his arteries Recheck labs in six weeks. [facility] 03-08-2024 Telephone encounter Note Can you please let the patient that I have ordered repeat blood work for Paulette's request? Thank you so [facility] 03-08-2024 Miscellaneous Notes Can you please let the patient that I have ordered repeat blood work for Paulette's request? Thank you so documented in this encounter [facility] 02-22-2024 Telephone encounter Note Patient was notified Talia Stoner MA [facility] 02-22-2024 Miscellaneous Notes Patient was notified Talia Stoner MA Rx sent Patient requesting refill of his Plavix. Pt asking if Dr. Parish would be agreeable to refilling this? If not, what specialty should this request be forwarded to? [facility]. Thank you. Kaleigh Vasquez RN documented in this encounter [facility] 02-22-2024 Telephone encounter Note Rx sent [facility] 02-22-2024 Telephone encounter Note Patient requesting refill of his Plavix. Pt asking if Dr. Parish would be agreeable to refilling this? If not, what specialty should this request be forwarded to? [facility]. Thank you. 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 May take Blood pressure and heart medications in the morning with small sip of water. 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 May take Blood pressure and heart medications in the morning with small sip of water. documented in this encounter [facility] 01-28-2024 Instructions Ambreen Man APRN.CNP - 01/28/2024 3:43 PM EDT PLAN AND RECOMMENDATIONS: Repeat echo prior to Dr Edwards visit Follow up Dr Edwards 6 months. No change in meds. CONTACT INFORMATION: Ambreen Man APRN.CNP Cardiology Nurse Practitioner Section of [facility] Cardiology [facility] Dept of Cardiovascular Medicine [facility] [place] [address] [address] Office Office documented in this encounter [facility] 01-28-2024 Note HNO ID: [id number] Author: AMBREEN MAN APRN.CNP Service: ? Author Type: Nurse Practitioner Type: Progress Notes Filed: 01/29/2024 14:18 Note Text: [facility] [place] izaiah Burton [facility] Department of Cardiovascular Medicine SECTION OF CLINICAL CARDIOLOGY OUTPATIENT VISIT DATE January 28, 2024 OUTPATIENT VISIT TYPE ESTABLISHED PRIMARY CARE PHYSICIAN: Linda Parish [address] [place] [address] REFERRING PHYSICIAN: No referring provider defined for this encounter. CHIEF COMPLAINT: No chief complaint on file. HISTORY OF PRESENT ILLNESS: Mr. Maldonado is a 63 year old male with PMH of polycythemia, Raynaud's phenomenon, aortic valve regurgitation, GERD, palpitations, hyperlipidemia, SVT, benign paroxysmal positional vertigo, hypertension, EtOH, PVD, PAD, iron deficiency anemia, ascending aorta dilatation, who presents today for a cardiovascular medicine follow-up visit after he saw Dr. Pizarro for the first time in October 2023. He was establishing care for SVT at that time. He had been off of his medications including diltiazem and Xarelto after he had a GI bleed. When he saw Dr. Pizarro he put him back on his diltiazem for the aorta dilatation, Raynaud's, and SVT though no good documentation supporting the SVT. States he seems to be doing okay back on the diltiazem. He gets MOORE seems to be the same, not worse Had colostomy bag from surgery when he was on vacation in [place]. Had a diverticulitis attack with perforation. Talk to his surgeon about having a reversal done but that surgeon did not give him much hope that it was possible. He will be seeking a second opinion. He denies chest pain, palpitations, dizziness, lightheadedness, lower extremity edema, PND, orthopnea, presyncope, syncope, or claudication symptoms Subjective PAST MEDICAL HISTORY Diagnosis Date Acute diverticulitis Aortic insufficiency Ascending aorta dilatation (HCC) 10/28/2023 Bursitis of elbow left Coronary artery disease mild nonobstructive Diverticulitis Migraines PAD (peripheral artery disease) ([facility]) Palpitations Pinched nerve 11/04/2020 low back Psoriasis Raynaud disease SVT (supraventricular tachycardia) ([facility]) Tobacco abuse PAST SURGICAL HISTORY Procedure Laterality Date COLON SURGERY HX COLONOSCOPY FLX DX W/COLLJ SPEC WHEN PFRMD 05/23/2014 Colonoscopy COLONOSCOPY FLX DX W/COLLJ SPEC WHEN PFRMD 09/24/2017 Colonoscopy COLONOSCOPY FLX DX W/COLLJ SPEC WHEN PFRMD 04/16/2021 ESOPHAGOGASTRODUODENOSCOPY TRANSORAL DIAGNOSTIC 05/23/2014 EGD ESOPHAGOGASTRODUODENOSCOPY TRANSORAL DIAGNOSTIC 08/15/2014 EGD HEMORRHOIDECTOMY INT AND XTRNL 2/> COLUMN/FAHEEM 10/01/2017 left posterior PAST SURGICAL HISTORY OF 2008 Pain injections lumbar PAST SURGICAL HISTORY OF 08/03/2022 colostomy PAST SURGICAL HISTORY OF Right 12/2022 right popliteal to tibioperoneal trunk bypass - REVISION 05/14/2023 RT/LT [facility]TERS 08/09/2020 [facility] Social History Tobacco Use Smoking status: Former Current packs/day: 0.00 Average packs/day: 1 pack/day for 42.2 years (42.2 ttl pk-yrs) Types: Cigarettes Start date: 02/11/1981 Quit date: 04/24/2023 Years since quittin.7 Passive exposure: Past Smokeless tobacco: Never Vaping Use Vaping status: Never Used Substance Use Topics Alcohol use: Yes Alcohol/week: 3.0 standard drinks of alcohol Types: 3 Cans of beer per week Comment: 3-4 drinks per day 5 days per week; Drug use: No FAMILY HISTORY Problem Relation Age of Onset Breast Cancer Mother Diabetes Father Heart Father other (Raynauds) Daughter other (Raynauds) Son Diabetes Maternal Grandfather ALLERGIES: ALLERGIES Allergen Reactions Verapamil Rash MEDICATIONS: dicyclomine (BENTYL) 20 mg tablet Take 1 tablet by mouth two times a day as needed (abdominal pain). NALOCET 2.5-300 mg per tablet Take 2 tablets by mouth once daily. dilTIAZem CR (TIAZAC, TAZTIA XT) 120 mg 24 hr capsule Take 1 capsule by mouth once daily. atorvastatin (LIPITOR) 40 mg tablet Take 1 tablet by mouth daily at bedtime. amitriptyline (ELAVIL) 25 mg tablet Take 1 tablet by mouth daily at bedtime. clopidogrel (PLAVIX) 75 mg tablet Take 1 tablet by mouth once daily. iron polysaccharide complex (FERREX-150) 150 mg iron capsule Take 150 mg by mouth once daily. ondansetron orally disintegrating (ZOFRAN ODT) 4 mg disintegrating tablet tiZANidine (ZANAFLEX) 4 mg tablet Take 4 mg by mouth daily at bedtime. FLUoxetine (PROZAC) 40 mg capsule Take 1 capsule by mouth once daily. pantoprazole DR (PROTONIX) 40 mg tablet Take 1 tablet by mouth daily before breakfast. Take on empty stomach, 1/2 hr before meal. therapeutic multivitamin-minerals (THERA-M PLUS) 9 mg iron-400 mcg tablet Take 1 tablet by mouth once daily. thiamine (VITAMIN B1) 100 mg tablet Take 1 tablet by mouth once daily. aspirin 81 mg chewabl (more content not included)... [facility] 01-28-2024 History of Present illness Narrative Images from the original note were not included. [facility] [place] [facility] Department of Cardiovascular Medicine SECTION OF CLINICAL CARDIOLOGY OUTPATIENT VISIT DATE January 28, 2024 OUTPATIENT VISIT TYPE ESTABLISHED PRIMARY CARE PHYSICIAN: Linda Parish [address] [place] [address] REFERRING PHYSICIAN: No referring provider defined for this encounter. CHIEF COMPLAINT: No chief complaint on file. HISTORY OF PRESENT ILLNESS: Mr. Joel is a 63 year old male with PMH of polycythemia, Raynaud's phenomenon, aortic valve regurgitation, GERD, palpitations, hyperlipidemia, SVT, benign paroxysmal positional vertigo, hypertension, EtOH, PVD, PAD, iron deficiency anemia, ascending aorta dilatation, who presents today for a cardiovascular medicine follow-up visit after he saw Dr. Pizarro for the first time in October 2023. He was establishing care for SVT at that time. He had been off of his medications including diltiazem and Xarelto after he had a GI bleed. When he saw Dr. Pizarro he put him back on his diltiazem for the aorta dilatation, Raynaud's, and SVT though no good documentation supporting the SVT. States he seems to be doing okay back on the diltiazem. He gets MOORE seems to be the same, not worse Had colostomy bag from surgery when he was on vacation in [place]. Had a diverticulitis attack with perforation. Talk to his surgeon about having a reversal done but that surgeon did not give him much hope that it was possible. He will be seeking a second opinion. He denies chest pain, palpitations, dizziness, lightheadedness, lower extremity edema, PND, orthopnea, presyncope, syncope, or claudication symptoms Subjective PAST MEDICAL HISTORY Diagnosis Date Acute diverticulitis Aortic insufficiency Ascending aorta dilatation (HCC) 10/28/2023 Bursitis of elbow left Coronary artery disease mild nonobstructive Diverticulitis Migraines PAD (peripheral artery disease) (HCC) Palpitations Pinched nerve 11/04/2020 low back Psoriasis Raynaud disease SVT (supraventricular tachycardia) (HCC) Tobacco abuse PAST SURGICAL HISTORY Procedure Laterality Date COLON SURGERY HX COLONOSCOPY FLX DX W/COLLJ SPEC WHEN PFRMD 05/23/2014 Colonoscopy COLONOSCOPY FLX DX W/COLLJ SPEC WHEN PFRMD 09/24/2017 Colonoscopy COLONOSCOPY FLX DX W/COLLJ SPEC WHEN PFRMD 04/16/2021 ESOPHAGOGASTRODUODENOSCOPY TRANSORAL DIAGNOSTIC 05/23/2014 EGD ESOPHAGOGASTRODUODENOSCOPY TRANSORAL DIAGNOSTIC 08/15/2014 EGD HEMORRHOIDECTOMY INT & XTRNL 2/> COLUMN/FAHEEM 10/01/2017 left posterior PAST SURGICAL HISTORY OF 2008 Pain injections lumbar PAST SURGICAL HISTORY OF 08/03/2022 colostomy PAST SURGICAL HISTORY OF Right 12/2022 right popliteal to tibioperoneal trunk bypass - REVISION 05/14/2023 RT/LT HEART CATHETERS 08/09/2020 [facility] Social History Tobacco Use Smoking status: Former Current packs/day: 0.00 Average packs/day: 1 pack/day for 42.2 years (42.2 ttl pk-yrs) Types: Cigarettes Start date: 02/11/1981 Quit date: 04/24/2023 Years since quittin.7 Passive exposure: Past Smokeless tobacco: Never Vaping Use Vaping status: Never Used Substance Use Topics Alcohol use: Yes Alcohol/week: 3.0 standard drinks of alcohol Types: 3 Cans of beer per week Comment: 3-4 drinks per day 5 days per week; Drug use: No FAMILY HISTORY Problem Relation Age of Onset Breast Cancer Mother Diabetes Father Heart Father other (Raynauds) Daughter other (Raynauds) Son Diabetes Maternal Grandfather ALLERGIES: ALLERGIES Allergen Reactions Verapamil Rash MEDICATIONS: dicyclomine (BENTYL) 20 mg tablet Take 1 tablet by mouth two times a day as needed (abdominal pain). NALOCET 2.5-300 mg per tablet Take 2 tablets by mouth once daily. dilTIAZem CR (TIAZAC, TAZTIA XT) 120 mg 24 hr capsule Take 1 capsule by mouth once daily. atorvastatin (LIPITOR) 40 mg tablet Take 1 tablet by mouth daily at bedtime. amitriptyline (ELAVIL) 25 mg tablet Take 1 tablet by mouth daily at bedtime. clopidogrel (PLAVIX) 75 mg tablet Take 1 tablet by mouth once daily. iron polysaccharide complex (FERREX-150) 150 mg iron capsule Take 150 mg by mouth once daily. ondansetron orally disintegrating (ZOFRAN ODT) 4 mg disintegrating tablet tiZANidine (ZANAFLEX) 4 mg tablet Take 4 mg by mouth daily at bedtime. FLUoxetine (PROZAC) 40 mg capsule Take 1 capsule by mouth once daily. pantoprazole DR (PROTONIX) 40 mg tablet Take 1 tablet by mouth daily before breakfast. Take on empty stomach, 1/2 hr before meal. therapeutic multivitamin-minerals (THERA-M PLUS) 9 mg iron-400 mcg tablet Take 1 tablet by mouth once daily. thiamine (VITAMIN B1) 100 mg tablet Take 1 tablet by mouth once daily. aspirin 81 mg chewable tablet Take 1 tablet by mouth once daily. gabapentin (NEURONTIN) 300 mg capsule Take 1 capsule by mouth every 12 hours. TREMFYA 100 mg/mL AutoInjector Inject 100 mg subcutaneously every 8 weeks. fremanezumab-vfrm (AJOVY AUTOINJECTOR) 225 mg/1.5 mL auto-injector Ajovy 225 mg/1.5 mL subcutaneous auto-injector Inject 1.5 mL subcutaneously once a month rimegepant (NURTEC ODT) 75 mg disintegrating tablet Nurtec ODT 75 mg disintegrating tablet Take 1 tab under tongue at onset of migraine. Max 1 in 24 hours. acetaminophen (TYLENOL) 325 mg tablet Take 650 mg by mouth every 6 hours as needed. REVIEW OF SYSTEMS: CARD: See HPI GENERAL: Negative for: Weight loss or gain, Fever and/or Chills HEENT: Negative for: Headache, Impaired Vision, Glasses, Hearing Impairment, Ringing in Ears, Nosebleeds, Bleeding Gums NECK: Negative for: Swelling, Pain, Stiffness RESPIRATORY: Negative for: Cough, Blood in Sputum, Shortness of breath, Wheezing, Apnea GASTROINTESTINAL: Negative for: Nausea, Vomiting, Diarrhea, Blood in stool, or Dark black stools MUSCULOSKELETAL: Negative for: Muscle or joint pain, Stiffness , Joint swelling NEUROLOGIC: Negative for: focal numbness/weakness, headaches, visual changes, ataxia, speech/language loss HEMATOLOGICAL/LYMPHATIC: Negative for: Easy bruising , Easy bleeding Objective PHYSICAL EXAMINATION: There were no vitals taken for this visit. General: Well appearing, in no acute distress. Skin: No clubbing, no cyanosis. Eyes: Extra ocular movements intact Neck: No jugular venous distention, no carotid bruits, carotids have a normal upstroke. Lungs: Clear to auscultation bilaterally, no wheezing or rhonchi. Heart: Regular rhythm, S1, S2 normal, no murmur. No peripheral edema . Grade 2/4 distal pulses bilaterally. Neuro: Oriented to person, place and time, alert, cooperative, gait coordinated. CARDIOVASCULAR MEDICINE TESTING: No Cardiovascular testing perfomed today. Last ECHO Result Conclusion ECHO LIMITED Collected: 04/30/2023 1:43 PM (Final result) Impression: CONCLUSIONS: - Exam indication: Peripheral embolic event - The left ventricle is normal in size. Left ventricular systolic function is normal. EF = 62 5% (2D biplane) - The right ventricle is normal in size. Right ventricular systolic function is normal. - The visualized aorta is borderline dilated with a maximal dimension of 3.9 cm. - There is moderate (2+) aortic valve regurgitation. - Exam was compared with the prior echocardiographic exam performed on 11/11/2021. Aortic regurgitation slighty progressed. * * * Final * * * Last EKG Result Conclusion ECG COMPLETE Collected: 08/31/2023 4:26 PM (Final result) Impression: NORMAL SINUS RHYTHM NORMAL ECG Confirmed by ALBIN CARMONA, IVANIA ([id number]), acquisitions editor ANGELITO GONZALEZ ([id number]) on 09/01/2023 10:00:43 AM There were no tests performed for review. I personally interviewed, confirmed and edited the above information if obtained by others. Conclusion: (I35.1) Nonrheumatic aortic valve insufficiency (primary encounter diagnosis) Comment: Appears stable at this point Plan: Repeat echo prior to next visit with Dr. Edwards. (E78.2) Mixed hyperlipidemia Comment: Last LDL mildly elevated Plan: Continue Lipitor for now may need to add a second agent at next blood level. He is trying lifestyle meant measures at this time (I10) Primary hypertension Comment: Stable Plan: No change in meds (I77.810) Ascending aorta dilatation (HCC) Comment: Last echo was a limited echo on April 2023 with an aorta of 3.8 cm Plan: Recheck echo prior to next visit with Dr. Edwards PLAN AND RECOMMENDATIONS: Repeat echo prior to Dr Edwards visit Follow up Dr Edwards 6 months. No change in meds. CONTACT INFORMATION: Ambreen Man APRN.CNP Cardiology Nurse Practitioner Section of [facility] Dept of Cardiovascular Medicine [facility] [place] [address] [place] [address] Office Office This note was partially generated using [employer] recognition system and may contain errors related to that system including grammar, punctuation, spelling, and words that may be inappropriate documented in this encounter [facility] 01-26-2024 Note HNO ID: [id number] Author: LAWRENCE MARIA MD Service: ? Author Type: Physician Type: Progress Notes Filed: 01/26/2024 15:32 Note Text: Lawrence Maria M.D. Colon AND Rectal Surgery [address] [facility], [address] [place] [address] SUBJECTIVE Choco Maldonado is a 63 year old White male with colostomy after Malone's procedure HPI The patient was referred by Paulette Ott [facility] [address] [place] [address] for my consultation regarding attention to colostomy. My final recommendations will be communicated back to the requesting physician by way of shared Medical record or letter to requesting physician via electronic or [place] mail. The patient is a pleasant 63-year-old male who underwent Malone's procedure several years ago for perforated diverticulitis while he was on a trip in [place]. He had a slow recovery after this but has been doing reasonably well recently. Notes good stoma function, occasionally has some bleeding from the mucocutaneous junction but otherwise does not have significant issues with leakage. He has a good appetite. He had a follow-up colonoscopy which did not show any notable findings. He is currently undergoing work at revascularization of his right lower extremity and notes that there is some concern about patency in his repair. He is a former smoker but did quit this as he was going through his vascular repairs and after the surgery. Review of Systems Constitutional: Negative for chills, fever and weight loss. HENT: Negative for congestion, ear pain, hearing loss, sinus pain and sore throat. Eyes: Negative for blurred vision, double vision and pain. Respiratory: Negative for cough, shortness of breath and wheezing. Cardiovascular: Negative for chest pain, palpitations and leg swelling. Gastrointestinal: Negative for abdominal pain, blood in stool, constipation, diarrhea, heartburn, nausea and vomiting. Genitourinary: Negative for dysuria, frequency and urgency. Musculoskeletal: Positive for back pain and joint pain. Negative for neck pain. Skin: Negative for itching and rash. Neurological: Negative for dizziness, weakness and headaches. Endo/Heme/Allergies: Negative for environmental allergies. Bruises/bleeds easily. Psychiatric/Behavioral: Negative for depression and memory loss. The patient is not nervous/anxious and does not have insomnia. PAST MEDICAL HISTORY Diagnosis Date Acute diverticulitis Aortic insufficiency Ascending aorta dilatation (HCC) 10/28/2023 Bursitis of elbow left Coronary artery disease mild nonobstructive Diverticulitis Migraines PAD (peripheral artery disease) ([facility]) Palpitations Pinched nerve 11/04/2020 low back Psoriasis Raynaud disease SVT (supraventricular tachycardia) ([facility]) Tobacco abuse PAST SURGICAL HISTORY Procedure Laterality Date COLON SURGERY HX COLONOSCOPY FLX DX W/COLLJ SPEC WHEN PFRMD 05/23/2014 Colonoscopy COLONOSCOPY FLX DX W/COLLJ SPEC WHEN PFRMD 09/24/2017 Colonoscopy COLONOSCOPY FLX DX W/COLLJ SPEC WHEN PFRMD 04/16/2021 ESOPHAGOGASTRODUODENOSCOPY TRANSORAL DIAGNOSTIC 05/23/2014 EGD ESOPHAGOGASTRODUODENOSCOPY TRANSORAL DIAGNOSTIC 08/15/2014 EGD HEMORRHOIDECTOMY INT AND XTRNL 2/> COLUMN/FAHEEM 10/01/2017 left posterior PAST SURGICAL HISTORY OF 2008 Pain injections lumbar PAST SURGICAL HISTORY OF 08/03/2022 colostomy PAST SURGICAL HISTORY OF Right 12/2022 right popliteal to tibioperoneal trunk bypass - REVISION 05/14/2023 RT/LT HEART CATHETERS 08/09/2020 [facility] Social History Tobacco Use Smoking status: Former Current packs/day: 0.00 Average packs/day: 1 pack/day for 42.2 years (42.2 ttl pk-yrs) Types: Cigarettes Start date: 02/11/1981 Quit date: 04/24/2023 Years since quittin.7 Passive exposure: Past Smokeless tobacco: Never Vaping Use Vaping status: Never Used Substance Use Topics Alcohol use: Yes Alcohol/week: 3.0 standard drinks of alcohol Types: 3 Cans of beer per week Comment: 3-4 drinks per day 5 days per week; Drug use: No FAMILY HISTORY Problem Relation Age of Onset Breast Cancer Mother Diabetes Father Heart Father other (Raynauds) Daughter other (Raynauds) Son Diabetes Maternal Grandfather The ROS, medical, surgical, family, and social history were reviewed by Lawrence Maria MD ALLERGIES Allergen Reactions Verapamil Rash Current Outpatient Medications Medication Sig dicyclomine (BENTYL) 20 mg tablet Take 1 tablet by mouth two times a day as needed (abdominal pain). NALOCET 2.5-300 mg per tablet Take 2 tablets by mouth once daily. dilTIAZem CR (TIAZAC, TAZTIA XT) 120 mg 24 hr capsule Take 1 capsule by mouth once daily. atorvastatin (LIPITOR) 40 mg tablet Take 1 tablet by mouth daily at bedtime. amitriptyline (ELAVIL) 25 mg tablet Take 1 tablet by mouth daily at bedtime. clopidogrel (PLAVIX) 75 mg tablet Take 1 tablet by mouth (more content not included)... [facility] 01-26-2024 History of Present illness Narrative Images from the original note were not included. Lawrence Maria M.D. Colon & Rectal Surgery 1 [facility], [address] [place] [address] STONE Maldonado is a 63 year old White male with colostomy after Malone's procedure HPI The patient was referred by Paulette Ott [address] [place] [address] for my consultation regarding attention to colostomy. My final recommendations will be communicated back to the requesting physician by way of shared Medical record or letter to requesting physician via electronic or [place] mail. The patient is a pleasant 63-year-old male who underwent Malone's procedure several years ago for perforated diverticulitis while he was on a trip in [place]. He had a slow recovery after this but has been doing reasonably well recently. Notes good stoma function, occasionally has some bleeding from the mucocutaneous junction but otherwise does not have significant issues with leakage. He has a good appetite. He had a follow-up colonoscopy which did not show any notable findings. He is currently undergoing work at revascularization of his right lower extremity and notes that there is some concern about patency in his repair. He is a former smoker but did quit this as he was going through his vascular repairs and after the surgery. Review of Systems Constitutional: Negative for chills, fever and weight loss. HENT: Negative for congestion, ear pain, hearing loss, sinus pain and sore throat. Eyes: Negative for blurred vision, double vision and pain. Respiratory: Negative for cough, shortness of breath and wheezing. Cardiovascular: Negative for chest pain, palpitations and leg swelling. Gastrointestinal: Negative for abdominal pain, blood in stool, constipation, diarrhea, heartburn, nausea and vomiting. Genitourinary: Negative for dysuria, frequency and urgency. Musculoskeletal: Positive for back pain and joint pain. Negative for neck pain. Skin: Negative for itching and rash. Neurological: Negative for dizziness, weakness and headaches. Endo/Heme/Allergies: Negative for environmental allergies. Bruises/bleeds easily. Psychiatric/Behavioral: Negative for depression and memory loss. The patient is not nervous/anxious and does not have insomnia. PAST MEDICAL HISTORY Diagnosis Date Acute diverticulitis Aortic insufficiency Ascending aorta dilatation ([facility]) 10/28/2023 Bursitis of elbow left Coronary artery disease mild nonobstructive Diverticulitis Migraines PAD (peripheral artery disease) ([facility]) Palpitations Pinched nerve 11/04/2020 low back Psoriasis Raynaud disease SVT (supraventricular tachycardia) ([facility]) Tobacco abuse PAST SURGICAL HISTORY Procedure Laterality Date COLON SURGERY HX COLONOSCOPY FLX DX W/COLLJ SPEC WHEN PFRMD 05/23/2014 Colonoscopy COLONOSCOPY FLX DX W/COLLJ SPEC WHEN PFRMD 09/24/2017 Colonoscopy COLONOSCOPY FLX DX W/COLLJ SPEC WHEN PFRMD 04/16/2021 ESOPHAGOGASTRODUODENOSCOPY TRANSORAL DIAGNOSTIC 05/23/2014 EGD ESOPHAGOGASTRODUODENOSCOPY TRANSORAL DIAGNOSTIC 08/15/2014 EGD HEMORRHOIDECTOMY INT & XTRNL 2/> COLUMN/FAHEEM 10/01/2017 left posterior PAST SURGICAL HISTORY OF 2008 Pain injections lumbar PAST SURGICAL HISTORY OF 08/03/2022 colostomy PAST SURGICAL HISTORY OF Right 12/2022 right popliteal to tibioperoneal trunk bypass - REVISION 05/14/2023 RT/LT HEART CATHETERS 08/09/2020 [facility] Social History Tobacco Use Smoking status: Former Current packs/day: 0.00 Average packs/day: 1 pack/day for 42.2 years (42.2 ttl pk-yrs) Types: Cigarettes Start date: 02/11/1981 Quit date: 04/24/2023 Years since quittin.7 Passive exposure: Past Smokeless tobacco: Never Vaping Use Vaping status: Never Used Substance Use Topics Alcohol use: Yes Alcohol/week: 3.0 standard drinks of alcohol Types: 3 Cans of beer per week Comment: 3-4 drinks per day 5 days per week; Drug use: No FAMILY HISTORY Problem Relation Age of Onset Breast Cancer Mother Diabetes Father Heart Father other (Raynauds) Daughter other (Raynauds) Son Diabetes Maternal Grandfather The ROS, medical, surgical, family, and social history were reviewed by Lawrence Maria MD ALLERGIES Allergen Reactions Verapamil Rash Current Outpatient Medications Medication Sig dicyclomine (BENTYL) 20 mg tablet Take 1 tablet by mouth two times a day as needed (abdominal pain). NALOCET 2.5-300 mg per tablet Take 2 tablets by mouth once daily. dilTIAZem CR (TIAZAC, TAZTIA XT) 120 mg 24 hr capsule Take 1 capsule by mouth once daily. atorvastatin (LIPITOR) 40 mg tablet Take 1 tablet by mouth daily at bedtime. amitriptyline (ELAVIL) 25 mg tablet Take 1 tablet by mouth daily at bedtime. clopidogrel (PLAVIX) 75 mg tablet Take 1 tablet by mouth once daily. iron polysaccharide complex (FERREX-150) 150 mg iron capsule Take 150 mg by mouth once daily. ondansetron orally disintegrating (ZOFRAN ODT) 4 mg disintegrating tablet tiZANidine (ZANAFLEX) 4 mg tablet Take 4 mg by mouth daily at bedtime. FLUoxetine (PROZAC) 40 mg capsule Take 1 capsule by mouth once daily. pantoprazole DR (PROTONIX) 40 mg tablet Take 1 tablet by mouth daily before breakfast. Take on empty stomach, 1/2 hr before meal. therapeutic multivitamin-minerals (THERA-M PLUS) 9 mg iron-400 mcg tablet Take 1 tablet by mouth once daily. thiamine (VITAMIN B1) 100 mg tablet Take 1 tablet by mouth once daily. aspirin 81 mg chewable tablet Take 1 tablet by mouth once daily. gabapentin (NEURONTIN) 300 mg capsule Take 1 capsule by mouth every 12 hours. TREMFYA 100 mg/mL AutoInjector Inject 100 mg subcutaneously every 8 weeks. fremanezumab-vfrm (AJOVY AUTOINJECTOR) 225 mg/1.5 mL auto-injector Ajovy 225 mg/1.5 mL subcutaneous auto-injector Inject 1.5 mL subcutaneously once a month rimegepant (NURTEC ODT) 75 mg disintegrating tablet Nurtec ODT 75 mg disintegrating tablet Take 1 tab under tongue at onset of migraine. Max 1 in 24 hours. acetaminophen (TYLENOL) 325 mg tablet Take 650 mg by mouth every 6 hours as needed. No current facility-administered medications for this visit. OBJECTIVE BP 143/71 (BP Site: Left Arm, BP Position: Sitting, BP Cuff Size: Regular Adult) Pulse 60 Ht 188 cm (6' 2) Wt 94.3 kg (208 lb) BMI 26.71 kg/m BMI 26.71 kg/(m^2) Physical Exam Constitutional: General: He is not in acute distress. Appearance: Normal appearance. He is not ill-appearing. Cardiovascular: Rate and Rhythm: Normal rate and regular rhythm. Heart sounds: No murmur heard. No friction rub. No gallop. Pulmonary: Effort: Pulmonary effort is normal. No respiratory distress. Breath sounds: Normal breath sounds. No wheezing or rales. Abdominal: General: There is no distension. Palpations: Abdomen is soft. There is no hepatomegaly. Tenderness: There is no abdominal tenderness. Comments: Stoma in the left lower quadrant is pink and healthy Musculoskeletal: General: No deformity. Normal range of motion. Skin: General: Skin is warm and dry. Findings: No rash. Neurological: Mental Status: He is alert and oriented to person, place, and time. Gait: Gait normal. Psychiatric: Mood and Affect: Mood normal. Judgment: Judgment normal. Hemoglobin (g/dL) Date Value 01/04/2024 12.5 05/26/2021 15.6 Hematocrit (%) Date Value 01/04/2024 39.7 05/26/2021 51.0 WBC (k/uL) Date Value 01/04/2024 7.80 03/21/2021 12.31 Platelet Count (k/uL) Date Value 01/04/2024 381 03/21/2021 423 Creatinine Date Value Ref Range Status 01/04/2024 1.02 0.73 - 1.22 mg/dL Final AST Date Value Ref Range Status 01/04/2024 26 14 - 40 U/L Final ALT Date Value Ref Range Status 01/04/2024 31 10 - 54 U/L Final Bilirubin, Total (mg/dL) Date Value 01/04/2024 0.3 Bilirubin, Direct (mg/dL) Date Value 08/23/2023 <0.2 Antibody Screen (no units) Date Value 09/07/2023 Negative WBC (k/uL) Date Value 01/04/2024 7.80 RBC (m/uL) Date Value 01/04/2024 4.93 %DIG,%DBS Plan ASSESSMENT/PLAN: 1. Perforation of colon (HCC) - ICD9: 569.83, ICD10: K63.1 We discussed the risks and benefits of colostomy reversal and I did stress that this is still a relatively risky surgery and is certainly a major surgery. He has gone through many of the steps especially smoking cessation to optimize for this procedure, but he does still have some ongoing issues with his lower extremity that should be settled as best we can before we would undertake something of this magnitude. He is going to think about this and continue working with his vascular surgeon if he decides that he would like to proceed after this is more settled we would go that direction. INFORMED CONSENT Choco Maldonado Medical Record: [id number] Date: 01/26/2024 Procedure: Colostomy reversal, laparoscopic possibly open The risks, benefits and anticipated outcomes of the procedure, the risks and benefits of the alternatives to the procedure and the roles and tasks of the personnel to be involved were discussed with the patient and the patient consents to the procedure and agrees to proceed. I verify that I personally obtained Choco Maldonado's consent. Lawrence Maria MD Dept of [facility] GENERAL SURGERY DEPARTMENT Follow up: Return for Surgery. Lawrence Maria M.D. Please Note: This office note has been created using leaselock, a speech recognition software program, and may contain errors including punctuation, grammar, spelling, gender, and inappropriate words or phrases that pertain to the sytem. documented in this encounter [facility] 01-25-2024 Note HNO ID: [id number] Author: CHRISTIANA ARRINGTON MD Service: ? Author Type: Physician Type: Progress Notes Filed: 01/25/2024 10:40 Note Text: TELEPHONE VISIT (audio only) PROGRESS NOTE This is a telephone encounter initiated for an established patient. The patient, parent or guardian is not originating from a related Evaluation AND Management service provided within the previous 7 days nor leading to an Evaluation AND Management service or procedure within the next 24 hours or soonest available appointment. I have communicated my name and active licensure. The patient's identity and physical location were verified at the time of this visit. Either the patient or their legal access services representative has been informed of the risks and benefits of -- and alternatives to -- treatment through a remote evaluation and consents to proceed with the evaluation remotely. Choco Maldonado has consented to this telephone encounter. Persons Present: patient Chief Complaint/Reason: recurrent stenosis HPI: Recurrent stenosis within bypass, valve/intimal hyperplasia Data Reviewed: Most recent labs and imaging results. Assessment: Restenotic bypass Plan: Surger yrecommended: redo primary assisted patency, cutting balloon angioplasty, IVUS Risks, benefits, alternatives and personnel discussed with patient who consents to proceed. Total Time Spent: 5-10 minutes Christiana Arrington MD [facility] 01-25-2024 History of Present illness Narrative TELEPHONE VISIT (audio only) PROGRESS NOTE This is a telephone encounter initiated for an established patient. The patient, parent or guardian is not originating from a related Evaluation & Management service provided within the previous 7 days nor leading to an Evaluation & Management service or procedure within the next 24 hours or soonest available appointment. I have communicated my name and active licensure. The patient's identity and physical location were verified at the time of this visit. Either the patient or their legal access services representative has been informed of the risks and benefits of -- and alternatives to -- treatment through a remote evaluation and consents to proceed with the evaluation remotely. Choco Maldonado has consented to this telephone encounter. Persons Present: patient Chief Complaint/Reason: recurrent stenosis HPI: Recurrent stenosis within bypass, valve/intimal hyperplasia Data Reviewed: Most recent labs and imaging results. Assessment: Restenotic bypass Plan: Surger yrecommended: redo primary assisted patency, cutting balloon angioplasty, IVUS Risks, benefits, alternatives and personnel discussed with patient who consents to proceed. Total Time Spent: 5-10 minutes Christiana Arrington MD documented in this encounter [facility] 01-21-2024 Telephone encounter Note Images from the original note were not included. Spoke to the patient and made him aware of the following information: Chritsiana Arrington MD You; Manda Craft; Barbara Carrasco RN4 minutes ago (2:46 PM) Ok to continue plavix. RM Patient verbalized understanding and surgical letter sent via [employer]. [facility] 01-21-2024 Miscellaneous Notes Images from the original note were not included. Spoke to the patient and made him aware of the following information: Christiana Arrington MD You; Manda Craft; Barbara Carrasco RN4 minutes ago (2:46 PM) Ok to continue plavix. RM Patient verbalized understanding and surgical letter sent via [employer]. Spoke to patient and scheduled surgery on 02/14/24 at . Patient aware of surgical instructions with verbal understanding. Patient is currently on Plavix and will need BT instructions and letter sent prior to surgery. Patient aware of the plan. Please advise. documented in this encounter [facility] 01-21-2024 Telephone encounter Note Spoke to patient and scheduled surgery on 02/14/24 at . Patient aware of surgical instructions with verbal understanding. Patient is currently on Plavix and will need BT instructions and letter sent prior to surgery. Patient aware of the plan. Please advise. [facility] 01-20-2024 Telephone encounter Note Spoke with pt Made aware of phone visit next week To discuss RLE angio. With Dr. Arrington Went over if symptoms worsen or new symptoms develop Ex: foot or leg coolness, rest pain, color change He should go to ER. He verbalizes understanding All questions answered Barbara [facility] 01-20-2024 Miscellaneous Notes Spoke with pt Made aware of phone visit next week To discuss RLE angio. With Dr. Arrington Went over if symptoms worsen or new symptoms develop Ex: foot or leg coolness, rest pain, color change He should go to ER. He verbalizes understanding All questions answered Barbara Patient called, he is concerned regarding is testing and asked if Dr. Arrington has reviewed it and if anything needs to be scheduled. Please advise. Patient can be reached at [phone]. documented in this encounter [facility] 01-20-2024 Telephone encounter Note Patient called, he is concerned regarding is testing and asked if Dr. Arrington has reviewed it and if anything needs to be scheduled. Please advise. Patient can be reached at [phone]. [facility] 01-19-2024 Note HNO ID: [id number] Author: HUYEN GREEN APRN.SIGNAL SUPERVISOR Service: ? Author Type: Nurse Practitioner Type: Progress Notes Filed: 01/19/2024 14:43 Note Text: [facility] [place] DEPARTMENT OF VASCULAR SURGERY OUTPATIENT VISIT DATE January 19, 2024 OUTPATIENT VISIT TYPE ESTABLISHED SERVICE DATE: 01/19/2024 SERVICE TIME: 1:57 PM PRIMARY CARE PHYSICIAN: Linda Parish MD HISTORY OF PRESENT ILLNESS: Mr. Maldonado is a 63 year old male with Pmhx of PAD, AI, CAD, Migraine, Palpitations. Raynaud's dx and ST, current smoker who presents today for a vascular surgery follow-up visit to review non-invasive testing. He reports Right leg rest pain with significant claudication. Endorses significant limited ambulation to about 100-150 ft before onset of symptoms. Denies non-healing ulcers, CP or SOB. PAST MEDICAL HISTORY Diagnosis Date Acute diverticulitis Aortic insufficiency Ascending aorta dilatation (HCC) 10/28/2023 Bursitis of elbow left Coronary artery disease mild nonobstructive Diverticulitis Migraines PAD (peripheral artery disease) ([facility]) Palpitations Pinched nerve 11/04/2020 low back Psoriasis Raynaud disease SVT (supraventricular tachycardia) ([facility]) Tobacco abuse PAST SURGICAL HISTORY Procedure Laterality Date COLON SURGERY HX COLONOSCOPY FLX DX W/COLLJ SPEC WHEN PFRMD 05/23/2014 Colonoscopy COLONOSCOPY FLX DX W/COLLJ SPEC WHEN PFRMD 09/24/2017 Colonoscopy COLONOSCOPY FLX DX W/COLLJ SPEC WHEN PFRMD 04/16/2021 ESOPHAGOGASTRODUODENOSCOPY TRANSORAL DIAGNOSTIC 05/23/2014 EGD ESOPHAGOGASTRODUODENOSCOPY TRANSORAL DIAGNOSTIC 08/15/2014 EGD HEMORRHOIDECTOMY INT AND XTRNL 2/> COLUMN/FAHEEM 10/01/2017 left posterior PAST SURGICAL HISTORY OF 2008 Pain injections lumbar PAST SURGICAL HISTORY OF 08/03/2022 colostomy PAST SURGICAL HISTORY OF Right 12/2022 right popliteal to tibioperoneal trunk bypass - REVISION 05/14/2023 RT/LT HEART CATHETERS 08/09/2020 [facility] SOCIAL HISTORY Social History Tobacco Use Smoking status: Former Current packs/day: 0.00 Average packs/day: 1 pack/day for 42.2 years (42.2 ttl pk-yrs) Types: Cigarettes Start date: 02/11/1981 Quit date: 04/24/2023 Years since quittin.7 Smokeless tobacco: Never Vaping Use Vaping status: Never Used Substance Use Topics Alcohol use: Yes Alcohol/week: 3.0 standard drinks of alcohol Types: 3 Cans of beer per week Comment: 3-4 drinks per day 5 days per week; 2 drinks in August Drug use: No MEDICATIONS: dicyclomine (BENTYL) 20 mg tablet Take 1 tablet by mouth two times a day as needed (abdominal pain). NALOCET 2.5-300 mg per tablet Take 2 tablets by mouth once daily. dilTIAZem CR (TIAZAC, TAZTIA XT) 120 mg 24 hr capsule Take 1 capsule by mouth once daily. atorvastatin (LIPITOR) 40 mg tablet Take 1 tablet by mouth daily at bedtime. amitriptyline (ELAVIL) 25 mg tablet Take 1 tablet by mouth daily at bedtime. clopidogrel (PLAVIX) 75 mg tablet Take 1 tablet by mouth once daily. iron polysaccharide complex (FERREX-150) 150 mg iron capsule Take 150 mg by mouth once daily. ondansetron orally disintegrating (ZOFRAN ODT) 4 mg disintegrating tablet tiZANidine (ZANAFLEX) 4 mg tablet Take 4 mg by mouth daily at bedtime. FLUoxetine (PROZAC) 40 mg capsule Take 1 capsule by mouth once daily. pantoprazole DR (PROTONIX) 40 mg tablet Take 1 tablet by mouth daily before breakfast. Take on empty stomach, 1/2 hr before meal. therapeutic multivitamin-minerals (THERA-M PLUS) 9 mg iron-400 mcg tablet Take 1 tablet by mouth once daily. thiamine (VITAMIN B1) 100 mg tablet Take 1 tablet by mouth once daily. aspirin 81 mg chewable tablet Take 1 tablet by mouth once daily. gabapentin (NEURONTIN) 300 mg capsule Take 1 capsule by mouth every 12 hours. TREMFYA 100 mg/mL AutoInjector Inject 100 mg subcutaneously every 8 weeks. fremanezumab-vfrm (AJOVY AUTOINJECTOR) 225 mg/1.5 mL auto-injector Ajovy 225 mg/1.5 mL subcutaneous auto-injector Inject 1.5 mL subcutaneously once a month rimegepant (NURTEC ODT) 75 mg disintegrating tablet Nurtec ODT 75 mg disintegrating tablet Take 1 tab under tongue at onset of migraine. Max 1 in 24 hours. acetaminophen (TYLENOL) 325 mg tablet Take 650 mg by mouth every 6 hours as needed. ALLERGIES: ALLERGIES Allergen Reactions Verapamil Rash REVIEW OF SYSTEMS PAIN ASSESSMENT: CURRENTLY HAVING PAIN; see HPI GENERAL: No weight loss, malaise or fevers HEENT: Negative for frequent or significant headaches, No changes in hearing or vision, no nose bleeds or other nasal problems NECK: Negative for lumps, goiter, pain and significant neck swelling RESPIRATORY: Negative for cough, hemoptysis, wheezing, COPD, dyspnea or shortness of breath CARDIOVASCULAR: Negative for chest pain, leg swelling, hypertension, CHF or palpitations MUSCULOSKELETAL: Negative for joint pain or swelling, back pain or muscle pain PHYSICAL EXAM: (more content not included)... [facility] 01-19-2024 History of Present illness Narrative Images from the original note were not included. [facility] [place] DEPARTMENT OF VASCULAR SURGERY OUTPATIENT VISIT DATE January 19, 2024 OUTPATIENT VISIT TYPE ESTABLISHED SERVICE DATE: 01/19/2024 SERVICE TIME: 1:57 PM PRIMARY CARE PHYSICIAN: Linda Parish MD HISTORY OF PRESENT ILLNESS: Mr. Maldonado is a 63 year old male with Pmhx of PAD, AI, CAD, Migraine, Palpitations. Raynaud's dx and ST, current smoker who presents today for a vascular surgery follow-up visit to review non-invasive testing. He reports Right leg rest pain with significant claudication. Endorses significant limited ambulation to about 100-150 ft before onset of symptoms. Denies non-healing ulcers, CP or SOB. PAST MEDICAL HISTORY Diagnosis Date Acute diverticulitis Aortic insufficiency Ascending aorta dilatation (HCC) 10/28/2023 Bursitis of elbow left Coronary artery disease mild nonobstructive Diverticulitis Migraines PAD (peripheral artery disease) ([facility]) Palpitations Pinched nerve 11/04/2020 low back Psoriasis Raynaud disease SVT (supraventricular tachycardia) ([facility]) Tobacco abuse PAST SURGICAL HISTORY Procedure Laterality Date COLON SURGERY HX COLONOSCOPY FLX DX W/COLLJ SPEC WHEN PFRMD 05/23/2014 Colonoscopy COLONOSCOPY FLX DX W/COLLJ SPEC WHEN PFRMD 09/24/2017 Colonoscopy COLONOSCOPY FLX DX W/COLLJ SPEC WHEN PFRMD 04/16/2021 ESOPHAGOGASTRODUODENOSCOPY TRANSORAL DIAGNOSTIC 05/23/2014 EGD ESOPHAGOGASTRODUODENOSCOPY TRANSORAL DIAGNOSTIC 08/15/2014 EGD HEMORRHOIDECTOMY INT & XTRNL 2/> COLUMN/FAHEEM 10/01/2017 left posterior PAST SURGICAL HISTORY OF 2008 Pain injections lumbar PAST SURGICAL HISTORY OF 08/03/2022 colostomy PAST SURGICAL HISTORY OF Right 12/2022 right popliteal to tibioperoneal trunk bypass - REVISION 05/14/2023 RT/LT HEART CATHETERS 08/09/2020 [facility] SOCIAL HISTORY Social History Tobacco Use Smoking status: Former Current packs/day: 0.00 Average packs/day: 1 pack/day for 42.2 years (42.2 ttl pk-yrs) Types: Cigarettes Start date: 02/11/1981 Quit date: 04/24/2023 Years since quittin.7 Smokeless tobacco: Never Vaping Use Vaping status: Never Used Substance Use Topics Alcohol use: Yes Alcohol/week: 3.0 standard drinks of alcohol Types: 3 Cans of beer per week Comment: 3-4 drinks per day 5 days per week; 2 drinks in August Drug use: No MEDICATIONS: dicyclomine (BENTYL) 20 mg tablet Take 1 tablet by mouth two times a day as needed (abdominal pain). NALOCET 2.5-300 mg per tablet Take 2 tablets by mouth once daily. dilTIAZem CR (TIAZAC, TAZTIA XT) 120 mg 24 hr capsule Take 1 capsule by mouth once daily. atorvastatin (LIPITOR) 40 mg tablet Take 1 tablet by mouth daily at bedtime. amitriptyline (ELAVIL) 25 mg tablet Take 1 tablet by mouth daily at bedtime. clopidogrel (PLAVIX) 75 mg tablet Take 1 tablet by mouth once daily. iron polysaccharide complex (FERREX-150) 150 mg iron capsule Take 150 mg by mouth once daily. ondansetron orally disintegrating (ZOFRAN ODT) 4 mg disintegrating tablet tiZANidine (ZANAFLEX) 4 mg tablet Take 4 mg by mouth daily at bedtime. FLUoxetine (PROZAC) 40 mg capsule Take 1 capsule by mouth once daily. pantoprazole DR (PROTONIX) 40 mg tablet Take 1 tablet by mouth daily before breakfast. Take on empty stomach, 1/2 hr before meal. therapeutic multivitamin-minerals (THERA-M PLUS) 9 mg iron-400 mcg tablet Take 1 tablet by mouth once daily. thiamine (VITAMIN B1) 100 mg tablet Take 1 tablet by mouth once daily. aspirin 81 mg chewable tablet Take 1 tablet by mouth once daily. gabapentin (NEURONTIN) 300 mg capsule Take 1 capsule by mouth every 12 hours. TREMFYA 100 mg/mL AutoInjector Inject 100 mg subcutaneously every 8 weeks. fremanezumab-vfrm (AJOVY AUTOINJECTOR) 225 mg/1.5 mL auto-injector Ajovy 225 mg/1.5 mL subcutaneous auto-injector Inject 1.5 mL subcutaneously once a month rimegepant (NURTEC ODT) 75 mg disintegrating tablet Nurtec ODT 75 mg disintegrating tablet Take 1 tab under tongue at onset of migraine. Max 1 in 24 hours. acetaminophen (TYLENOL) 325 mg tablet Take 650 mg by mouth every 6 hours as needed. ALLERGIES: ALLERGIES Allergen Reactions Verapamil Rash REVIEW OF SYSTEMS PAIN ASSESSMENT: CURRENTLY HAVING PAIN; see HPI GENERAL: No weight loss, malaise or fevers HEENT: Negative for frequent or significant headaches, No changes in hearing or vision, no nose bleeds or other nasal problems NECK: Negative for lumps, goiter, pain and significant neck swelling RESPIRATORY: Negative for cough, hemoptysis, wheezing, COPD, dyspnea or shortness of breath CARDIOVASCULAR: Negative for chest pain, leg swelling, hypertension, CHF or palpitations MUSCULOSKELETAL: Negative for joint pain or swelling, back pain or muscle pain PHYSICAL EXAM: There were no vitals taken for this visit. General: Alert and oriented x3 Integumentary: Normal color, no rash, no lesions. HEENT: EOM, pupils equal, round and reactive. Cardiovascular: Normal S1 & S2, no rubs, murmurs or gallops. No JVD., Pulse regular. Lungs: Normal breath sounds, no wheezes or crackles. Abdomen: Soft, non-tender, no rigidity. Extremities: No deformity, no edema or tenderness, no joint swelling or clubbing. Neurological: Normal cognition and motor skills. Vascular: Diagnostic tests reviewed for today's visit: 01/19/2024: SAVANNA: RABI: 0.54, LABI: 1.13 01/19/2024: Dr. Arrington was notified with results at 2:00pm. Compared to prior study of 08/31/2023, essentially no change. RIGHT SIDE External iliac artery distal: plaque noted without evidence of hemodynamically significant stenosis . Common femoral artery, Profunda femoral artery and Superficial femoral artery throughout: plaque noted without evidence of hemodynamically significant stenosis Superficial femoral to posterior tibial artery bypass graft proximal anastomosis: 50-99% stenosis . Hyperplasia noted. distal thigh: 50-99% stenosis . Hyperplasia noted. Velocities distal to stenosis are low throughout the remainder of the graft indicative of graft failure. Velocity shift noted in the posterior tibial artery distal to graft appears overestimated due to vessel diameter mismatch. IMPRESSION: Mr. Maldonado is a 63 year old male worsening PAD. PLAN and RECOMMENDATIONS: - Case reviewed with Dr. Arrington over the phone. - Plan for Right lower extremity angio with possible intervention - This will be arranged by the outpatient office - Continue with current medications - Follow up after procedure completed SIGNATURE: Huyen Green APRN.SIGNAL SUPERVISOR PATIENT NAME: Choco Maldonado DATE: January 19, 2024 TIME: 1:57 PM documented in this encounter [facility] 01-07-2024 Note HNO ID: [id number] Author: PAULETTE OTT PA-C Service: ? Author Type: Physician Mash Filter Cloth Changer Type: Progress Notes Filed: 01/07/2024 16:06 Note Text: GASTROENTEROLOGY PROGRESS NOTE VIRTUAL FOLLOW UP Patient consented to this visit being virtual and understands there are limitations inherent in this type of visit. I have communicated my name and active licensure. The patient's identity and physical location were verified at the time of this visit. Either the patient or their legal access services representative has been informed of the risks and benefits of -- and alternatives to -- treatment through a remote evaluation and consents to proceed with the evaluation remotely. This is a virtual visit using [employer] Z[employer] Video Visit. It required patient-provider interaction for the medical decision making as documented below. HPI: I saw Choco Georges Joel today for a follow up GI bleed. Notes black stool lately, liquidy stool. Pt is on oral iron . Pt had an iron infusion in August. He cleans out his stoma bag 2 to 3 times a day, this is his baseline. No bright red blood in the stool. Takng pantoprazole 40 mg qam. Reports abd pain 2 to 3 times since last visit. Descirbes as an ache. Sx are after eaitng. On the left side, same side as the stoma notes some blood around the opening of his stoma. No other episodes of bleeding. No N/V. No fevers. Weight gain. PAST MEDICAL HISTORY No date: Acute diverticulitis No date: Aortic insufficiency 10/28/2023: Ascending aorta dilatation ([facility]) No date: Bursitis of elbow Comment: left No date: Coronary artery disease Comment: mild nonobstructive No date: Diverticulitis No date: Migraines No date: PAD (peripheral artery disease) ([facility]) No date: Palpitations 11/04/2020: Pinched nerve Comment: low back No date: Psoriasis No date: Raynaud disease No date: SVT (supraventricular tachycardia) ([facility]) No date: Tobacco abuse PAST SURGICAL HISTORY No date: COLON SURGERY HX 05/23/2014: COLONOSCOPY FLX DX W/COLLJ SPEC WHEN PFRMD Comment: Colonoscopy 09/24/2017: COLONOSCOPY FLX DX W/COLLJ SPEC WHEN PFRMD Comment: Colonoscopy 04/16/2021: COLONOSCOPY FLX DX W/COLLJ SPEC WHEN PFRMD 05/23/2014: ESOPHAGOGASTRODUODENOSCOPY TRANSORAL DIAGNOSTIC Comment: EGD 08/15/2014: ESOPHAGOGASTRODUODENOSCOPY TRANSORAL DIAGNOSTIC Comment: EGD 10/01/2017: HEMORRHOIDECTOMY INT AND XTRNL 2/> COLUMN/FAHEEM Comment: left posterior 2007: PAST SURGICAL HISTORY OF Comment: Pain injections lumbar 08/03/2022: PAST SURGICAL HISTORY OF Comment: colostomy 12/2022: PAST SURGICAL HISTORY OF; Right Comment: right popliteal to tibioperoneal trunk bypass - REVISION 05/14/2023 08/09/2020: RT/LT HEART CATHETERS Comment: [facility] Social History Tobacco Use Smoking status: Former Current packs/day: 0.00 Average packs/day: 1 pack/day for 42.2 years (42.2 ttl pk-yrs) Types: Cigarettes Start date: 02/11/1981 Quit date: 04/24/2023 Years since quittin.7 Smokeless tobacco: Never Vaping Use Vaping status: Never Used Substance Use Topics Alcohol use: Yes Alcohol/week: 3.0 standard drinks of alcohol Types: 3 Cans of beer per week Comment: 3-4 drinks per day 5 days per week; 2 drinks in August Drug use: No FAMILY HISTORY Problem Relation Age of Onset Breast Cancer Mother Diabetes Father Heart Father other (Raynauds) Daughter other (Raynauds) Son Diabetes Maternal Grandfather Current Outpatient Medications Medication Sig NALOCET 2.5-300 mg per tablet Take 2 tablets by mouth once daily. dilTIAZem CR (TIAZAC, TAZTIA XT) 120 mg 24 hr capsule Take 1 capsule by mouth once daily. atorvastatin (LIPITOR) 40 mg tablet Take 1 tablet by mouth daily at bedtime. amitriptyline (ELAVIL) 25 mg tablet Take 1 tablet by mouth daily at bedtime. clopidogrel (PLAVIX) 75 mg tablet Take 1 tablet by mouth once daily. iron polysaccharide complex (FERREX-150) 150 mg iron capsule Take 150 mg by mouth once daily. ondansetron orally disintegrating (ZOFRAN ODT) 4 mg disintegrating tablet tiZANidine (ZANAFLEX) 4 mg tablet Take 4 mg by mouth daily at bedtime. FLUoxetine (PROZAC) 40 mg capsule Take 1 capsule by mouth once daily. pantoprazole DR (PROTONIX) 40 mg tablet Take 1 tablet by mouth daily before breakfast. Take on empty stomach, 1/2 hr before meal. therapeutic multivitamin-minerals (THERA-M PLUS) 9 mg iron-400 mcg tablet Take 1 tablet by mouth once daily. thiamine (VITAMIN B1) 100 mg tablet Take 1 tablet by mouth once daily. aspirin 81 mg chewable tablet Take 1 tablet by mouth once daily. gabapentin (NEURONTIN) 300 mg capsule Take 1 capsule by mouth every 12 hours. TREMFYA 100 mg/mL AutoInjector Inject 100 mg subcutaneously every 8 weeks. fremanezumab-vfrm (AJOVY AUTOINJECTOR) 225 mg/1.5 mL auto-injector Ajovy 225 mg/1.5 mL subcutaneous auto-injector Inject 1.5 mL subcutaneously once a month rimegepant (NURTEC ODT) 75 mg disintegrating tablet Nurtec ODT 75 m (more content not included)... [facility] 01-07-2024 History of Present illness Narrative GASTROENTEROLOGY PROGRESS NOTE VIRTUAL FOLLOW UP Patient consented to this visit being virtual and understands there are limitations inherent in this type of visit. I have communicated my name and active licensure. The patient's identity and physical location were verified at the time of this visit. Either the patient or their legal access services representative has been informed of the risks and benefits of -- and alternatives to -- treatment through a remote evaluation and consents to proceed with the evaluation remotely. This is a virtual visit using [employer] Video Visit. It required patient-provider interaction for the medical decision making as documented below. HPI: I saw Choco Maldonado today for a follow up GI bleed. Notes black stool lately, liquidy stool. Pt is on oral iron . Pt had an iron infusion in August. He cleans out his stoma bag 2 to 3 times a day, this is his baseline. No bright red blood in the stool. Takng pantoprazole 40 mg qam. Reports abd pain 2 to 3 times since last visit. Descirbes as an ache. Sx are after eaitng. On the left side, same side as the stoma notes some blood around the opening of his stoma. No other episodes of bleeding. No N/V. No fevers. Weight gain. PAST MEDICAL HISTORY No date: Acute diverticulitis No date: Aortic insufficiency 10/28/2023: Ascending aorta dilatation ([facility]) No date: Bursitis of elbow Comment: left No date: Coronary artery disease Comment: mild nonobstructive No date: Diverticulitis No date: Migraines No date: PAD (peripheral artery disease) ([facility]) No date: Palpitations 11/04/2020: Pinched nerve Comment: low back No date: Psoriasis No date: Raynaud disease No date: SVT (supraventricular tachycardia) ([facility]) No date: Tobacco abuse PAST SURGICAL HISTORY No date: COLON SURGERY HX 05/23/2014: COLONOSCOPY FLX DX W/COLLJ SPEC WHEN PFRMD Comment: Colonoscopy 09/24/2017: COLONOSCOPY FLX DX W/COLLJ SPEC WHEN PFRMD Comment: Colonoscopy 04/16/2021: COLONOSCOPY FLX DX W/COLLJ SPEC WHEN PFRMD 05/23/2014: ESOPHAGOGASTRODUODENOSCOPY TRANSORAL DIAGNOSTIC Comment: EGD 08/15/2014: ESOPHAGOGASTRODUODENOSCOPY TRANSORAL DIAGNOSTIC Comment: EGD 10/01/2017: HEMORRHOIDECTOMY INT & XTRNL 2/> COLUMN/FAHEEM Comment: left posterior 2007: PAST SURGICAL HISTORY OF Comment: Pain injections lumbar 08/03/2022: PAST SURGICAL HISTORY OF Comment: colostomy 12/2022: PAST SURGICAL HISTORY OF; Right Comment: right popliteal to tibioperoneal trunk bypass - REVISION 05/14/2023 08/09/2020: RT/LT HEART CATHETERS Comment: [facility] Social History Tobacco Use Smoking status: Former Current packs/day: 0.00 Average packs/day: 1 pack/day for 42.2 years (42.2 ttl pk-yrs) Types: Cigarettes Start date: 02/11/1981 Quit date: 04/24/2023 Years since quittin.7 Smokeless tobacco: Never Vaping Use Vaping status: Never Used Substance Use Topics Alcohol use: Yes Alcohol/week: 3.0 standard drinks of alcohol Types: 3 Cans of beer per week Comment: 3-4 drinks per day 5 days per week; 2 drinks in August Drug use: No FAMILY HISTORY Problem Relation Age of Onset Breast Cancer Mother Diabetes Father Heart Father other (Raynauds) Daughter other (Raynauds) Son Diabetes Maternal Grandfather Current Outpatient Medications Medication Sig NALOCET 2.5-300 mg per tablet Take 2 tablets by mouth once daily. dilTIAZem CR (TIAZAC, TAZTIA XT) 120 mg 24 hr capsule Take 1 capsule by mouth once daily. atorvastatin (LIPITOR) 40 mg tablet Take 1 tablet by mouth daily at bedtime. amitriptyline (ELAVIL) 25 mg tablet Take 1 tablet by mouth daily at bedtime. clopidogrel (PLAVIX) 75 mg tablet Take 1 tablet by mouth once daily. iron polysaccharide complex (FERREX-150) 150 mg iron capsule Take 150 mg by mouth once daily. ondansetron orally disintegrating (ZOFRAN ODT) 4 mg disintegrating tablet tiZANidine (ZANAFLEX) 4 mg tablet Take 4 mg by mouth daily at bedtime. FLUoxetine (PROZAC) 40 mg capsule Take 1 capsule by mouth once daily. pantoprazole DR (PROTONIX) 40 mg tablet Take 1 tablet by mouth daily before breakfast. Take on empty stomach, 1/2 hr before meal. therapeutic multivitamin-minerals (THERA-M PLUS) 9 mg iron-400 mcg tablet Take 1 tablet by mouth once daily. thiamine (VITAMIN B1) 100 mg tablet Take 1 tablet by mouth once daily. aspirin 81 mg chewable tablet Take 1 tablet by mouth once daily. gabapentin (NEURONTIN) 300 mg capsule Take 1 capsule by mouth every 12 hours. TREMFYA 100 mg/mL AutoInjector Inject 100 mg subcutaneously every 8 weeks. fremanezumab-vfrm (AJOVY AUTOINJECTOR) 225 mg/1.5 mL auto-injector Ajovy 225 mg/1.5 mL subcutaneous auto-injector Inject 1.5 mL subcutaneously once a month rimegepant (NURTEC ODT) 75 mg disintegrating tablet Nurtec ODT 75 mg disintegrating tablet Take 1 tab under tongue at onset of migraine. Max 1 in 24 hours. acetaminophen (TYLENOL) 325 mg tablet Take 650 mg by mouth every 6 hours as needed. No current facility-administered medications for this visit. ALLERGIES Allergen Reactions Verapamil Rash PHYSICAL EXAMINATION: No physical exam was performed due to this visit being performed virtually to decrease exposure to Covid 19. Patient was awake, alert, oriented, was able to speak clearly and answer questions. Patient did not seem to be in any distress. Patient appeared comfortable and was sitting and moving around comfortably. LABS: Hemoglobin (g/dL) Date Value 01/04/2024 12.5 05/26/2021 15.6 Hematocrit (%) Date Value 01/04/2024 39.7 05/26/2021 51.0 WBC (k/uL) Date Value 01/04/2024 7.80 03/21/2021 12.31 Lab Results Component Value Date LIPASE 20 07/24/2022 TBILI 0.3 01/04/2024 CREAT 1.02 01/04/2024 INR 1.0 09/04/2023 ALB 4.5 01/04/2024 CBILI <0.2 08/23/2023 ALKPHOS 117 (H) 01/04/2024 AST 26 01/04/2024 ALT 31 01/04/2024 TPROT 7.7 01/04/2024 Colonoscopy and EGD Jun 2023- [facility] No evidence of bleeding Enteroscopy 08/23/23 Impression: - Normal esophagus. - Normal stomach. - Normal examined duodenum. - The examined portion of the jejunum was normal. Tattooed. - No specimens collected. Recommendation: - [facility]. 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 Otherwise, normal small bowel capsule endoscopy Plan ASSESSMENT AND PLAN: This is a 63 year old Choco Maldonado is a 62 year old male w/ PMHx of Diverticulitis s/p surgery now w/ ostomy, iron def anemia, and PAD s/p bypass and angioplasty who I saw as a hosp follow up. He was admitted in August for occult GIB. He was HDS. While admitted he had 2 blood transfusions and had a VCE. VCE showing small AVM in the distal jejunum. Per GI, these are difficult to reach and likely to small to be the main bleeding culprit. Prior work up also included negative EGD/colonoscopy with CTA and push enteroscopy, no evidence of bleeding on these procedures. Pt has seen heme onc who recommended he cont iron daily. The pt is on plavix and ASA. Today, he notes black liquidly stool. Pt is on oral iron. No brb in stool. He is still taking pantoprazole 40 mg daily. He notes intermittent left sided abd pain, around site of the stoma. He is doing well overall His hbg has improved from 10.8 to 12.5. Iron 37 and ferritin 25 ASSESSMENT/PLAN: 1. LLQ abdominal pain - ICD9: 789.04, ICD10: R10.32 (primary diagnosis) - DICYCLOMINE 20 MG TABLET- PRN for abd pain 2. Gastrointestinal hemorrhage, unspecified gastrointestinal hemorrhage type - ICD9: 578.9, ICD10: K92.2 - cont to follow w/ heme - per inpt GI: if re-bleeds next intervention would be anterograde single vs double balloon enteroscopy Repeat CBC, Ferritin and iron in 2 months 3. History of creation of ostomy (HCC) - ICD9: V44.9, ICD10: Z93.9 - has appt with Dr. Maria pt interested in reversal Paulette Ott PA-C I spent a total of 20 minutes on the date of the service which included preparing to see the patient, [id number] patient care, completing clinical documentation, obtaining and/or reviewing separately obtained history, performing a medically appropriate examination, counseling and educating the patient/family/caregiver, and ordering medications, tests, or procedures. documented in this encounter [facility] 01-05-2024 Note HNO ID: [id number] Author: LINDA PARISH MD Service: ? Author Type: Physician Type: Progress Notes Filed: 01/05/2024 15:10 Note Text: Patient presents with: Follow Up HPI: Patient presents today for office visit for follow up. Having PVR/US done with vascular on 01/19/24 Follow up not until March. Still with tingling and numbness in right leg. Occasional swelling to inside of right calf. No redness. Incisions are all healed. Scheduled with Gastro this Wednesday01/07/24. Following with Pain mgt. Dr. Calvert. Switched from [place] to Nalocet. Has seen pulmonary, hematology and cardiology. Anemia is improving. No bloody stools. Ostomy is working well. They are hoping to close it at some point. No chest pain. No new shortness of breath. Emotionally is doing well. No issues with meds. Raynaud's is stable. Not smoking since Apr!!! Needs to follow with derm. Latest Ref Rng 01/04/2024 WBC 3.70 - 11.00 k/uL 7.80 RBC 4.20 - 6.00 m/uL 4.93 Hemoglobin 13.0 - 17.0 g/dL 12.5 (L) Hematocrit 39.0 - 51.0 % 39.7 MCV 80.0 - 100.0 fL 80.5 MCH 26.0 - 34.0 pg 25.4 (L) MCHC 30.5 - 36.0 g/dL 31.5 RDW-CV 11.5 - 15.0 % 19.7 (H) Platelet Count 150 - 400 k/uL 381 MPV 9.0 - 12.7 fL 9.3 Neut% % 66.3 Abs Neut (ANC) 1.45 - 7.50 k/uL 5.17 Lymph% % 26.0 Abs Lymph 1.00 - 4.00 k/uL 2.03 Lenoir% % 4.6 Abs Lenoir <0.87 k/uL 0.36 Eosin% % 1.8 Abs Eosin <0.46 k/uL 0.14 Baso% % 0.9 Abs Baso <0.11 k/uL 0.07 Immature Gran % % 0.4 IMMATURE GRANS (ABS) <0.10 k/uL 0.03 NRBC /100 WBC 0.0 Absolute nRBC <0.01 k/uL <0.01 DTYPE Auto Protein, Total 6.3 - 8.0 g/dL 7.7 Albumin 3.9 - 4.9 g/dL 4.5 Calcium 8.5 - 10.2 mg/dL 9.5 Bilirubin, Total 0.2 - 1.3 mg/dL 0.3 Alkaline Phosphatase 38 - 113 U/L 117 (H) AST 14 - 40 U/L 26 ALT 10 - 54 U/L 31 Glucose 74 - 99 mg/dL 98 BUN 9 - 24 mg/dL 16 Creatinine 0.73 - 1.22 mg/dL 1.02 Sodium 136 - 144 mmol/L 139 Potassium 3.7 - 5.1 mmol/L 3.9 Chloride 98 - 107 mmol/L 103 CO2 22 - 30 mmol/L 23 Anion Gap 8 - 15 mmol/L 13 eGFR >=60 mL/min/1.73m? 83 Ferritin 30.3 - 565.7 ng/mL 25.3 (L) Legend: (L) Low (H) High MEDICATIONS: Current Outpatient Medications Medication Sig NALOCET 2.5-300 mg per tablet Take 2 tablets by mouth once daily. dilTIAZem CR (TIAZAC, TAZTIA XT) 120 mg 24 hr capsule Take 1 capsule by mouth once daily. atorvastatin (LIPITOR) 40 mg tablet Take 1 tablet by mouth daily at bedtime. amitriptyline (ELAVIL) 25 mg tablet Take 1 tablet by mouth daily at bedtime. clopidogrel (PLAVIX) 75 mg tablet Take 1 tablet by mouth once daily. iron polysaccharide complex (FERREX-150) 150 mg iron capsule Take 150 mg by mouth once daily. ondansetron orally disintegrating (ZOFRAN ODT) 4 mg disintegrating tablet tiZANidine (ZANAFLEX) 4 mg tablet Take 4 mg by mouth daily at bedtime. FLUoxetine (PROZAC) 40 mg capsule Take 1 capsule by mouth once daily. pantoprazole DR (PROTONIX) 40 mg tablet Take 1 tablet by mouth daily before breakfast. Take on empty stomach, 1/2 hr before meal. therapeutic multivitamin-minerals (THERA-M PLUS) 9 mg iron-400 mcg tablet Take 1 tablet by mouth once daily. thiamine (VITAMIN B1) 100 mg tablet Take 1 tablet by mouth once daily. aspirin 81 mg chewable tablet Take 1 tablet by mouth once daily. gabapentin (NEURONTIN) 300 mg capsule Take 1 capsule by mouth every 12 hours. TREMFYA 100 mg/mL AutoInjector Inject 100 mg subcutaneously every 8 weeks. fremanezumab-vfrm (AJOVY AUTOINJECTOR) 225 mg/1.5 mL auto-injector Ajovy 225 mg/1.5 mL subcutaneous auto-injector Inject 1.5 mL subcutaneously once a month rimegepant (NURTEC ODT) 75 mg disintegrating tablet Nurtec ODT 75 mg disintegrating tablet Take 1 tab under tongue at onset of migraine. Max 1 in 24 hours. acetaminophen (TYLENOL) 325 mg tablet Take 650 mg by mouth every 6 hours as needed. No current facility-administered medications for this visit. ALLERGIES: ALLERGIES Allergen Reactions Verapamil Rash PAST MEDICAL HISTORY No date: Acute diverticulitis No date: Aortic insufficiency 10/28/2023: Ascending aorta dilatation ([facility]) No date: Bursitis of elbow Comment: left No date: Coronary artery disease Comment: mild nonobstructive No date: Diverticulitis No date: Migraines No date: PAD (peripheral artery disease) ([facility]) No date: Palpitations 11/04/2020: Pinched nerve Comment: low back No date: Psoriasis No date: Raynaud disease No date: SVT (supraventricular tachycardia) [facility] [facility] No date: Tobacco abuse PAST SURGICAL HISTORY No date: COLON SURGERY HX 05/23/2014: COLONOSCOPY FLX DX W/COLLJ SPEC WHEN PFRMD Comment: Colonoscopy 09/24/2017: COLONOSCOPY FLX DX W/COLLJ SPEC WHEN PFRMD Comment: Colonoscopy 04/16/2021: COLONOSCOPY FLX DX W/COLLJ SPEC WHEN PFRMD 05/23/2014: ESOPHAGOGASTRODUODENOSCOPY TRANSORAL DIAGNOSTIC Comment: EGD 08/15/2014: ESOPHAGOGASTRODUODENOSCOPY TRANSORAL DIAGNOSTIC Comment: EGD 10/01/2017: HEMOR (more content not included)... [facility] 01-05-2024 History of Present illness Narrative Patient presents with: Follow Up HPI: Patient presents today for office visit for follow up. Having PVR/US done with vascular on 01/19/24 Follow up not until March. Still with tingling and numbness in right leg. Occasional swelling to inside of right calf. No redness. Incisions are all healed. Scheduled with Gastro this Wednesday01/07/24. Following with Pain mgt. Dr. Calvert. Switched from [place] to Nalocet. Has seen pulmonary, hematology and cardiology. Anemia is improving. No bloody stools. Ostomy is working well. They are hoping to close it at some point. No chest pain. No new shortness of breath. Emotionally is doing well. No issues with meds. Raynaud's is stable. Not smoking since Apr!!! Needs to follow with derm. Latest Ref Rng 01/04/2024 WBC 3.70 - 11.00 k/uL 7.80 RBC 4.20 - 6.00 m/uL 4.93 Hemoglobin 13.0 - 17.0 g/dL 12.5 (L) Hematocrit 39.0 - 51.0 % 39.7 MCV 80.0 - 100.0 fL 80.5 MCH 26.0 - 34.0 pg 25.4 (L) MCHC 30.5 - 36.0 g/dL 31.5 RDW-CV 11.5 - 15.0 % 19.7 (H) Platelet Count 150 - 400 k/uL 381 MPV 9.0 - 12.7 fL 9.3 Neut% % 66.3 Abs Neut (ANC) 1.45 - 7.50 k/uL 5.17 Lymph% % 26.0 Abs Lymph 1.00 - 4.00 k/uL 2.03 Lenoir% % 4.6 Abs Lenoir <0.87 k/uL 0.36 Eosin% % 1.8 Abs Eosin <0.46 k/uL 0.14 Baso% % 0.9 Abs Baso <0.11 k/uL 0.07 Immature Gran % % 0.4 IMMATURE GRANS (ABS) <0.10 k/uL 0.03 NRBC /100 WBC 0.0 Absolute nRBC <0.01 k/uL <0.01 DTYPE Auto Protein, Total 6.3 - 8.0 g/dL 7.7 Albumin 3.9 - 4.9 g/dL 4.5 Calcium 8.5 - 10.2 mg/dL 9.5 Bilirubin, Total 0.2 - 1.3 mg/dL 0.3 Alkaline Phosphatase 38 - 113 U/L 117 (H) AST 14 - 40 U/L 26 ALT 10 - 54 U/L 31 Glucose 74 - 99 mg/dL 98 BUN 9 - 24 mg/dL 16 Creatinine 0.73 - 1.22 mg/dL 1.02 Sodium 136 - 144 mmol/L 139 Potassium 3.7 - 5.1 mmol/L 3.9 Chloride 98 - 107 mmol/L 103 CO2 22 - 30 mmol/L 23 Anion Gap 8 - 15 mmol/L 13 eGFR >=60 mL/min/1.73m 83 Ferritin 30.3 - 565.7 ng/mL 25.3 (L) Legend: (L) Low (H) High MEDICATIONS: Current Outpatient Medications Medication Sig NALOCET 2.5-300 mg per tablet Take 2 tablets by mouth once daily. dilTIAZem CR (TIAZAC, TAZTIA XT) 120 mg 24 hr capsule Take 1 capsule by mouth once daily. atorvastatin (LIPITOR) 40 mg tablet Take 1 tablet by mouth daily at bedtime. amitriptyline (ELAVIL) 25 mg tablet Take 1 tablet by mouth daily at bedtime. clopidogrel (PLAVIX) 75 mg tablet Take 1 tablet by mouth once daily. iron polysaccharide complex (FERREX-150) 150 mg iron capsule Take 150 mg by mouth once daily. ondansetron orally disintegrating (ZOFRAN ODT) 4 mg disintegrating tablet tiZANidine (ZANAFLEX) 4 mg tablet Take 4 mg by mouth daily at bedtime. FLUoxetine (PROZAC) 40 mg capsule Take 1 capsule by mouth once daily. pantoprazole DR (PROTONIX) 40 mg tablet Take 1 tablet by mouth daily before breakfast. Take on empty stomach, 1/2 hr before meal. therapeutic multivitamin-minerals (THERA-M PLUS) 9 mg iron-400 mcg tablet Take 1 tablet by mouth once daily. thiamine (VITAMIN B1) 100 mg tablet Take 1 tablet by mouth once daily. aspirin 81 mg chewable tablet Take 1 tablet by mouth once daily. gabapentin (NEURONTIN) 300 mg capsule Take 1 capsule by mouth every 12 hours. TREMFYA 100 mg/mL AutoInjector Inject 100 mg subcutaneously every 8 weeks. fremanezumab-vfrm (AJOVY AUTOINJECTOR) 225 mg/1.5 mL auto-injector Ajovy 225 mg/1.5 mL subcutaneous auto-injector Inject 1.5 mL subcutaneously once a month rimegepant (NURTEC ODT) 75 mg disintegrating tablet Nurtec ODT 75 mg disintegrating tablet Take 1 tab under tongue at onset of migraine. Max 1 in 24 hours. acetaminophen (TYLENOL) 325 mg tablet Take 650 mg by mouth every 6 hours as needed. No current facility-administered medications for this visit. ALLERGIES: ALLERGIES Allergen Reactions Verapamil Rash PAST MEDICAL HISTORY No date: Acute diverticulitis No date: Aortic insufficiency 10/28/2023: Ascending aorta dilatation (HCC) No date: Bursitis of elbow Comment: left No date: Coronary artery disease Comment: mild nonobstructive No date: Diverticulitis No date: Migraines No date: PAD (peripheral artery disease) ([facility]) No date: Palpitations 11/04/2020: Pinched nerve Comment: low back No date: Psoriasis No date: Raynaud disease No date: SVT (supraventricular tachycardia) (HCC) No date: Tobacco abuse PAST SURGICAL HISTORY No date: COLON SURGERY HX 05/23/2014: COLONOSCOPY FLX DX W/COLLJ SPEC WHEN PFRMD Comment: Colonoscopy 09/24/2017: COLONOSCOPY FLX DX W/COLLJ SPEC WHEN PFRMD Comment: Colonoscopy 04/16/2021: COLONOSCOPY FLX DX W/COLLJ SPEC WHEN PFRMD 05/23/2014: ESOPHAGOGASTRODUODENOSCOPY TRANSORAL DIAGNOSTIC Comment: EGD 08/15/2014: ESOPHAGOGASTRODUODENOSCOPY TRANSORAL DIAGNOSTIC Comment: EGD 10/01/2017: HEMORRHOIDECTOMY INT & XTRNL 2/> COLUMN/FAHEEM Comment: left posterior 2007: PAST SURGICAL HISTORY OF Comment: Pain injections lumbar 08/03/2022: PAST SURGICAL HISTORY OF Comment: colostomy 12/2022: PAST SURGICAL HISTORY OF; Right Comment: right popliteal to tibioperoneal trunk bypass - REVISION 05/14/2023 08/09/2020: RT/LT HEART CATHETERS Comment: [facility] FAMILY HISTORY Problem Relation Age of Onset Breast Cancer Mother Diabetes Father Heart Father other (Raynauds) Daughter other (Raynauds) Son Diabetes Maternal Grandfather Social History Tobacco Use Smoking status: Former Current packs/day: 0.00 Average packs/day: 1 pack/day for 42.2 years (42.2 ttl pk-yrs) Types: Cigarettes Start date: 02/11/1981 Quit date: 04/24/2023 Years since quittin.7 Smokeless tobacco: Never Vaping Use Vaping status: Never Used Substance Use Topics Alcohol use: Yes Alcohol/week: 3.0 standard drinks of alcohol Types: 3 Cans of beer per week Comment: 3-4 drinks per day 5 days per week; 2 drinks in August Drug use: No Reviewed current medications, allergies, past medical history, surgical history, family history and social history today. REVIEW OF SYSTEMS As above. HEALTH MAINTENANCE: Reviewed health maintenance issues today and recommended the following in detail. BP Controlled (<130/80) Never done Covid-19 Vaccine(2022- season) due on 01/02/2024 Influenza Vaccine(1) due on 01/02/2024 Had discussion with patient regarding risks and benefits of prostate screening. Allowed them to decide if they wished to proceed with screening including JAVIER and PSA. VITALS: BP 138/68 Pulse 67 Ht 182.9 cm (6') Wt 93.9 kg (207 lb) SpO2 97% BMI 28.07 kg/m Last 4 Encounter Wt Readings: Date: Wt: 01/05/2024 93.9 kg (207 lb) 10/28/2023 92.9 kg (204 lb 12.9 oz) 10/15/2023 92.5 kg (204 lb) 10/11/2023 93 kg (205 lb) PHYSICAL EXAMINATION: General appearance: Well appearing, alert, in no acute distress, well-hydrated, well nourished. Skin: Skin color, texture, turgor normal, no suspicious rashes or lesions Head: Normocephalic, no masses, lesions, tenderness or abnormalities Lungs: Lungs clear to auscultation. No wheezing, rhonchi, rales Heart: RRR without murmur, gallop, or rubs. No ectopy Abdomen: Normal abdominal exam, Abdomen soft, non-tender. Bowel sounds normal. No masses, organomegaly Extremities: No deformities, edema, skin discoloration, clubbing or cyanosis. Good capillary refill. ASSESSMENT/PLAN: 1. Migraine with aura, not intractable, without status migrainosus - ICD9: 346.00, ICD10: G43.109 (primary diagnosis) - stable. Has seen neurology. 2. Raynaud's phenomenon without gangrene - ICD9: 443.0, ICD10: I73.00 - keep extremities warm and stay on meds. 3. Mixed hyperlipidemia - ICD9: 272.2, ICD10: E78.2 -check lipid. Continue meds. 4. SVT (supraventricular tachycardia) (HCC) - ICD9: 427.89, ICD10: I47.10 - per cardiology 5. PVD (peripheral vascular disease) (HCC) - ICD9: 443.9, ICD10: I73.9 - per vascualr 6. Ascending aorta dilatation (HCC) - ICD9: 447.71, ICD10: I77.810 - per vascular. 7. Gastroesophageal reflux disease, unspecified whether esophagitis present - ICD9: 530.81, ICD10: K21.9 - stable 8. History of GI bleed - ICD9: V12.79, ICD10: Z87.19 - overall doing better. 9. Iron deficiency anemia, unspecified iron deficiency anemia type - ICD9: 280.9, ICD10: D50.9 - much better. 10. Polycythemia, secondary - ICD9: 289.0, ICD10: D75.1 - improved., follow with heme onc 11. Dizziness - ICD9: 780.4, ICD10: R42 - doing well 12. Screening for prostate cancer - ICD9: V76.44, ICD10: Z12.5 - check psa. Linda Parish MD documented in this encounter [facility] 12-13-2023 Telephone encounter Note Spoke with patient reminding him to get blood work done. Patient understood and said he would try to get it done as soon as possible. December 13, 2023 10:13 AM. Marti Day MA [facility] 12-13-2023 Miscellaneous Notes Spoke with patient reminding him to get blood work done. Patient understood and said he would try to get it done as soon as possible. December 13, 2023 10:13 AM. Marti Day MA Please remind pt to get blood work to monitor iron and blood counts -Paulette Ott PA-C documented in this encounter [facility] 12-13-2023 Telephone encounter Note Please remind pt to get blood work to monitor iron and blood counts -Paulette Ott PA-C [facility] Work Phone: 11-19-2023 Telephone encounter Note Called the patient and left a voice message asking the patient to call the office back . 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 Inga Nelson [facility] 11-19-2023 Miscellaneous Notes Called the patient and left a voice message asking the patient to call the office back . 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 Inga Nelson documented in this encounter [facility] 11-12-2023 Telephone encounter Note Follow up in 6-8 wks, preferably with one of our GI doctors if possible- dx JOSE and hx of GIB Referral to MARIELOS Ott PA-C [facility] Work Phone: 11-12-2023 Miscellaneous Notes Follow up in 6-8 wks, preferably with one of our GI doctors if possible- dx JOSE and hx of GIB Referral to MARIELOS Ott PA-C documented in this encounter [facility] 11-12-2023 Note HNO ID: [id number] Author: PAULETTE OTT PA-C Service: ? 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 I have communicated my name and active licensure. The patient's identity and physical location were verified at the time of this visit. Either the patient or their legal access services representative has been informed of the risks and benefits of -- and alternatives to -- treatment through a remote evaluation and consents to proceed with the evaluation remotely. This is a virtual visit using [employer] Zoom Video Visit. It required patient-provider interaction for the medical decision making as documented below. CC: HPI: Choco Maldonado is a 62 year old male who presents for hosp follow up. He was admitted at the end of August w/ concerns for GIB. Hosp course 08/30-09/06 #Acute on Chronic Anemia #Suspected GI Bleed #Iron Deficiency Anemia Patient was recently admitted from 08/21-08/24 w/ concerns for GIB. During that admission he had push enteroscopy which did not show signs of bleeding. During this admission his DOAC was stopped and he was instead started on ASA/Plavix. At a f/u PCP appointment on 08/30 he was noted to have downtrending Hgb and symptoms of anemia, so he was advised to go to the ED where he was re-admitted. 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 Per GI, these are difficult to reach and likely to small to be the main bleeding culprit. Was challeneged w/ heparin for 48hrs w/ no further signs of bleeding or drop in Hgb. ASA/Plavix were restated on 09/05 and he had no bleeding for one day. Plan - Will go home on ASA/Plavix - Close follow-up w/ Heme/GI - Per GI, if re-bleeds next intervention would be anterograde single vs double balloon enteroscopy Updated Hx Reports lower abd pain and feels bloated. On right side reports sharp pain x 2 days which resolved on it's own. Reports some blood around stoma Reports black stool but is on iron tablets. BM have been brown or black. No bright red blood in the stool. No N/V. Still taking pantoprazole 40 mg qam. Pt also had iron infusion outpt. NSAID use: none - tylenol Unexplained weight loss: weight gain Take Blood thinners: ASA and plavix Bowel Habits: BM are 2-3 times a day. Formed and loose stool. Black stool at times. Fam Hx: negative for colon CA Current Outpatient Medications Medication Sig dilTIAZem CR (TIAZAC, TAZTIA XT) 120 mg 24 hr capsule Take 1 capsule by mouth once daily. atorvastatin (LIPITOR) 40 mg tablet Take 1 tablet by mouth daily at bedtime. amitriptyline (ELAVIL) 25 mg tablet Take 1 tablet by mouth daily at bedtime. clopidogrel (PLAVIX) 75 mg tablet Take 1 tablet by mouth once daily. HYDROcodone-acetaminophen (NORCO) 5-325 mg per tablet Take 1 tablet by mouth two times a day. iron polysaccharide complex (FERREX-150) 150 mg iron capsule Take 150 mg by mouth once daily. ondansetron orally disintegrating (ZOFRAN ODT) 4 mg disintegrating tablet tiZANidine (ZANAFLEX) 4 mg tablet Take 4 mg by mouth daily at bedtime. FLUoxetine (PROZAC) 40 mg capsule Take 1 capsule by mouth once daily. pantoprazole DR (PROTONIX) 40 mg tablet Take 1 tablet by mouth daily before breakfast. Take on empty stomach, 1/2 hr before meal. therapeutic multivitamin-minerals (THERA-M PLUS) 9 mg iron-400 mcg tablet Take 1 tablet by mouth once daily. thiamine (VITAMIN B1) 100 mg tablet Take 1 tablet by mouth once daily. aspirin 81 mg chewable tablet Take 1 tablet by mouth once daily. gabapentin (NEURONTIN) 300 mg capsule Take 1 capsule by mouth every 12 hours. TREMFYA 100 mg/mL AutoInjector Inject 100 mg subcutaneously every 8 weeks. fremanezumab-vfrm (AJOVY AUTOINJECTOR) 225 mg/1.5 mL auto-injector Ajovy 225 mg/1.5 mL subcutaneous auto-injector Inject 1.5 mL subcutaneously once a month rimegepant (NURTEC ODT) 75 mg disintegrating tablet Nurtec ODT 75 mg disintegrating tablet Take 1 tab under tongue at onset of migraine. Max 1 in 24 hours. acetaminophen (TYLENOL) 325 mg tablet Take 650 mg by mouth every 6 hours as needed. No current facility-administered medications for this visit. PAST MEDICAL HISTORY Diagnosis Date Acute diverticulitis Aortic insufficiency Ascending aorta dilatation (HCC) 10/28/2023 Bursitis of elbow left Coronary artery disease mild nonobstructive Diverticulitis Migraines PAD (peripheral artery disease) ([facility]) Palpitations Pinched nerve 11/04/2020 low back Psoriasis Raynaud disease SVT (supraventricular tachycardia) (HCC) Tobacco abuse PAST SURGICAL HISTORY Procedure Laterality Date COLON SURGERY HX COLONOSCOPY FLX DX W/COLLJ SPEC WHEN PFRMD 05/23/2014 Colonoscopy COLONOSCOPY FLX DX W/COLLJ SPEC WHEN PFRMD (more content not included)... [facility] 11-12-2023 History of Present illness Narrative GASTROENTEROLOGY NEW PATIENT VIRTUAL VISIT Patient consented to this visit being virtually and understands there are limitations inherent in this type of visit. I have communicated my name and active licensure. The patient's identity and physical location were verified at the time of this visit. Either the patient or their legal access services representative has been informed of the risks and benefits of -- and alternatives to -- treatment through a remote evaluation and consents to proceed with the evaluation remotely. This is a virtual visit using [employer] Zoom Video Visit. It required patient-provider interaction for the medical decision making as documented below. CC: HPI: Choco Maldonado is a 62 year old male who presents for hosp follow up. He was admitted at the end of August w/ concerns for GIB. Hosp course 08/30-09/06 #Acute on Chronic Anemia #Suspected GI Bleed #Iron Deficiency Anemia Patient was recently admitted from 08/21-08/24 w/ concerns for GIB. During that admission he had push enteroscopy which did not show signs of bleeding. During this admission his DOAC was stopped and he was instead started on ASA/Plavix. At a f/u PCP appointment on 08/30 he was noted to have downtrending Hgb and symptoms of anemia, so he was advised to go to the ED where he was re-admitted. 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 Per GI, these are difficult to reach and likely to small to be the main bleeding culprit. Was challeneged w/ heparin for 48hrs w/ no further signs of bleeding or drop in Hgb. ASA/Plavix were restated on 09/05 and he had no bleeding for one day. Plan - Will go home on ASA/Plavix - Close follow-up w/ Heme/GI - Per GI, if re-bleeds next intervention would be anterograde single vs double balloon enteroscopy Updated Hx Reports lower abd pain and feels bloated. On right side reports sharp pain x 2 days which resolved on it's own. Reports some blood around stoma Reports black stool but is on iron tablets. BM have been brown or black. No bright red blood in the stool. No N/V. Still taking pantoprazole 40 mg qam. Pt also had iron infusion outpt. NSAID use: none - tylenol Unexplained weight loss: weight gain Take Blood thinners: ASA and plavix Bowel Habits: BM are 2-3 times a day. Formed and loose stool. Black stool at times. Fam Hx: negative for colon CA Current Outpatient Medications Medication Sig dilTIAZem CR (TIAZAC, TAZTIA XT) 120 mg 24 hr capsule Take 1 capsule by mouth once daily. atorvastatin (LIPITOR) 40 mg tablet Take 1 tablet by mouth daily at bedtime. amitriptyline (ELAVIL) 25 mg tablet Take 1 tablet by mouth daily at bedtime. clopidogrel (PLAVIX) 75 mg tablet Take 1 tablet by mouth once daily. HYDROcodone-acetaminophen (NORCO) 5-325 mg per tablet Take 1 tablet by mouth two times a day. iron polysaccharide complex (FERREX-150) 150 mg iron capsule Take 150 mg by mouth once daily. ondansetron orally disintegrating (ZOFRAN ODT) 4 mg disintegrating tablet tiZANidine (ZANAFLEX) 4 mg tablet Take 4 mg by mouth daily at bedtime. FLUoxetine (PROZAC) 40 mg capsule Take 1 capsule by mouth once daily. pantoprazole DR (PROTONIX) 40 mg tablet Take 1 tablet by mouth daily before breakfast. Take on empty stomach, 1/2 hr before meal. therapeutic multivitamin-minerals (THERA-M PLUS) 9 mg iron-400 mcg tablet Take 1 tablet by mouth once daily. thiamine (VITAMIN B1) 100 mg tablet Take 1 tablet by mouth once daily. aspirin 81 mg chewable tablet Take 1 tablet by mouth once daily. gabapentin (NEURONTIN) 300 mg capsule Take 1 capsule by mouth every 12 hours. TREMFYA 100 mg/mL AutoInjector Inject 100 mg subcutaneously every 8 weeks. fremanezumab-vfrm (AJOVY AUTOINJECTOR) 225 mg/1.5 mL auto-injector Ajovy 225 mg/1.5 mL subcutaneous auto-injector Inject 1.5 mL subcutaneously once a month rimegepant (NURTEC ODT) 75 mg disintegrating tablet Nurtec ODT 75 mg disintegrating tablet Take 1 tab under tongue at onset of migraine. Max 1 in 24 hours. acetaminophen (TYLENOL) 325 mg tablet Take 650 mg by mouth every 6 hours as needed. No current facility-administered medications for this visit. PAST MEDICAL HISTORY Diagnosis Date Acute diverticulitis Aortic insufficiency Ascending aorta dilatation (HCC) 10/28/2023 Bursitis of elbow left Coronary artery disease mild nonobstructive Diverticulitis Migraines PAD (peripheral artery disease) ([facility]) Palpitations Pinched nerve 11/04/2020 low back Psoriasis Raynaud disease SVT (supraventricular tachycardia) ([facility]) Tobacco abuse PAST SURGICAL HISTORY Procedure Laterality Date COLON SURGERY HX COLONOSCOPY FLX DX W/COLLJ SPEC WHEN PFRMD 05/23/2014 Colonoscopy COLONOSCOPY FLX DX W/COLLJ SPEC WHEN PFRMD 09/24/2017 Colonoscopy COLONOSCOPY FLX DX W/COLLJ SPEC WHEN PFRMD 04/16/2021 ESOPHAGOGASTRODUODENOSCOPY TRANSORAL DIAGNOSTIC 05/23/2014 EGD ESOPHAGOGASTRODUODENOSCOPY TRANSORAL DIAGNOSTIC 08/15/2014 EGD HEMORRHOIDECTOMY INT & XTRNL 2/> COLUMN/FAHEEM 10/01/2017 left posterior PAST SURGICAL HISTORY OF 2008 Pain injections lumbar PAST SURGICAL HISTORY OF 08/03/2022 colostomy PAST SURGICAL HISTORY OF Right 12/2022 right popliteal to tibioperoneal trunk bypass - REVISION 05/14/2023 RT/LT HEART CATHETERS 08/09/2020 [facility] FAMILY HISTORY Problem Relation Age of Onset Breast Cancer Mother Diabetes Father Heart Father other (Raynauds) Daughter other (Raynauds) Son Diabetes Maternal Grandfather Social History Tobacco Use Smoking status: Former Packs/day: 1.00 Years: 39.00 Additional pack years: 0.00 Total pack years: 39.00 Types: Cigarettes Start date: 02/11/1981 Quit date: 04/24/2023 Years since quittin.5 Smokeless tobacco: Never Vaping Use Vaping Use: Never used Substance Use Topics Alcohol use: Yes Alcohol/week: 3.0 standard drinks of alcohol Types: 3 Cans of beer per week Comment: 3-4 drinks per day 5 days per week; 2 drinks in August Drug use: No ALLERGIES Allergen Reactions Verapamil Rash GI SPECIFIC ROS: Difficulty swallowing / foods sticking in throat: with steak or taking large bites. Heartburn: sometimes Hoarseness: No Chronic cough: No Regurgitation: No Chest pain: sometimes Filling up quickly at meals: No Loss of appetite: No Nausea: No Vomiting: No Abdominal pain: Yes Recent change in bowel movements: No Bloody or black, bowel movements: Yes Constipation: No Diarrhea: No Night sweats, fever, chills: No Vomiting blood: No Recent change in weight: weight gain PHYSICAL EXAMINATION: No physical exam was performed due to this visit being performed via virtually to decrease exposure to Covid 19. Patient was awake, alert, oriented, was able to speak clearly and answer questions. Patient did not seem to be in any distress. Patient appeared comfortable and was sitting and moving around comfortably. Colonoscopy and EGD Jun 2023- [facility] No evidence of bleeding Enteroscopy 08/23/23 Impression: - Normal esophagus. - Normal stomach. - Normal examined duodenum. - The examined portion of the jejunum was normal. Tattooed. - No specimens collected. Recommendation: - [facility]. 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 Otherwise, normal small bowel capsule endoscopy ASSESSMENT AND PLAN: Choco Maldonado is a 62 year old male w/ PMHx of Diverticulitis s/p surgery now w/ ostomy, iron def anemia, and PAD s/p bypass and angioplasty who presents as a hosp follow up. He was admitted in August for occult GIB. He was HDS. While admitted he had 2 blood transfusions and had a VCE. VCE showing small AVM in the distal jejunum. Per GI, these are difficult to reach and likely to small to be the main bleeding culprit. Prior work up also included negative EGD/colonoscopy with CTA and push enteroscopy, no evidence of bleeding on these procedures. Pt has seen heme onc who recommended he cont iron daily. The pt is on plavix and ASA. Currently the pt reports some lower abd pain. He notes black and brown stool. Reviewed recent blood counts from last month 10/15/23. Hbg is trending upward currently at 10.8 Ferritin wnl- 40.9 and iron low- 29. ASSESSMENT/PLAN: 1. Gastrointestinal hemorrhage, unspecified gastrointestinal hemorrhage type - ICD9: 578.9, ICD10: K92.2 (primary diagnosis) - standing orders. Repeat blood counts about 6-8 wks - IRON AND TIBC - COMPLETE BLOOD COUNT AND DIFFERENTIAL - FERRITIN - per inpt GI: if re-bleeds next intervention would be anterograde single vs double balloon enteroscopy 2. History of creation of ostomy (HCC) - ICD9: V44.9, ICD10: Z93.9 - CONSULT TO COLO-RECTAL SURGERY - pt interested in reversal of ostomy Paulette Ott PA-C I spent a total of 39 minutes on the date of the service which included preparing to see the patient, [id number] patient care, completing clinical documentation, obtaining and/or reviewing separately obtained history, ordering medications, tests, or procedures, communicating with other HCPs (not separately reported), and communicating results to the patient/family/caregiver. documented in this encounter [facility] 10-28-2023 Note HNO ID: [id number] Author: JU EDWARDS, DO Service: ? Author Type: Physician Type: Progress Notes Filed: 10/28/2023 17:24 Note Text: [facility] SECTION OF [facility] CARDIOLOGY [facility] OUTPATIENT VISIT DATE October 28, 2023 PRIMARY CARE PHYSICIAN: Linda Parish [address] [place] [address] HISTORY OF PRESENT ILLNESS: Mr. Maldonado is a 62 year old male. The patient presents for evaluation and to establish care due to history of mild coronary disease and previous episodes of SVT . The patient has been noted to have palpitations for quite some time. He was thought to have symptomatic SVT and was placed on diltiazem. He has stopped and started taking this from time to time due to various reasons. More recently has had problems with his lower extremity bypass and GI bleeding thereafter. Medications have been stopped and started particular his Xarelto is no longer being utilized after recent GI bleed with hemoglobin down to 6. A source has not been ascertained. He is now on aspirin and Plavix. He notes discomfort in his right lower extremity for which she is to follow-up with vascular surgery in the near future. His palpitations are dramatically improved over the last couple weeks. 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 He denies chest discomfort, dyspnea exertion, orthopnea, paroxysmal nocturnal dyspnea, palpitations, near-syncope or syncope. The patient is lives home with his spouse. He is a non-smoker having quit more recently but a moderate drinker. 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 Cardiac risk factors: Age, gender, hypertension, hyperlipidemia, known CAD, tobacco abuse previously, peripheral arterial disease Impression: 1. Mild coronary disease by cardiac catheterization 2020 2. History of SVT, asymptomatic and mild 3. History of palpitations, currently controlled 4. History of hypertension 5. History hyperlipidemia 6. History of aortic insufficiency, moderate 7. Ascending aortic dilatation 8. Peripheral arterial disease 9. Alcohol use, reduction if not cessation stressed and patient warned PLAN AND RECOMMENDATIONS: The patient overall appears stable from a cardiovascular standpoint. Given his ascending aortic dilatation history of palpitations and possible SVT which we cannot find adequate documentation of, we would recommend resumption of his previous diltiazem. We have placed him on long-acting diltiazem 120 mg daily. Heart rate and recent cholesterol profile are favorable for which we have made no other additions or changes. Dietary and lifestyle modification was emphasized to facilitate risk factor reduction. We applauded him on his tobacco cessation and once again told him to cut back or stop his alcohol intake altogether. We will look forward to reevaluate him in 2 to 3 months time. Vitals: BP 144/74 Pulse 74 Ht 182.9 cm (6') Wt 92.9 kg (204 lb 12.9 oz) SpO2 96% BMI 27.78 kg/m? Physical Exam Vitals reviewed. Constitutional: General: He is not in acute distress. Appearance: Normal appearance. He is well-developed. He is not diaphoretic. HENT: Head: Normocephalic and atraumatic. Right Ear: External ear normal. Left Ear: External ear normal. Nose: Nose normal. Eyes: General: No scleral icterus. Right eye: No discharge. Left eye: No discharge. Pupils: Pupils are equal, round, and reactive to light. Neck: Thyroid: No thyromegaly. Vascular: No carotid bruit or JVD. Cardiovascular: Rate and Rhythm: Normal rate and regular rhythm. Heart sounds: No murmur heard. No friction rub. No gallop. Pulmonary: Effort: Pulmonary effort is normal. No respiratory distress. Breath sounds: Normal breath sounds. No wheezing or rales. Abdominal: General: Bowel sounds are normal. Palpations: Abdomen is soft. Musculoskeletal: General: Normal range of motion. Cervical back: Neck supple. Skin: General: Skin is warm and dry. Capillary Refill: Capillary refill takes less than 2 seconds. Coloration: Skin is not pale. Neurological: Mental Status: He is alert and oriented to person, place, and time. Cranial Nerves: No cranial nerve deficit. Psychiatric: Mood and Affect: Mood normal. Mood is not anxious or depressed. Behavior: Behavior normal. Thought Content: Thought content normal. Judgment: Judgment normal. Review of Systems Constitutional: Positive for fatigue. Negative for activity change, appetite change and unexpected weight change. HENT: Negative for ear pain and trouble swallowing. Eyes: Negative for pain and visual disturbance. Respiratory: Positive for shortness of breath. Negative for chest tightness. Cardiovascular: Positive for palpitations and leg swelling (Right). Negative for chest pain. Gastrointestinal: P (more content not included)... [facility] 10-28-2023 History of Present illness Narrative Images from the original note were not included. [facility] SECTION OF REGIONAL CARDIOLOGY [facility] OUTPATIENT VISIT DATE October 28, 2023 PRIMARY CARE PHYSICIAN: Linda Parish [address] [place] [address] HISTORY OF PRESENT ILLNESS: Mr. Maldonado is a 62 year old male. The patient presents for evaluation and to establish care due to history of mild coronary disease and previous episodes of SVT . The patient has been noted to have palpitations for quite some time. He was thought to have symptomatic SVT and was placed on diltiazem. He has stopped and started taking this from time to time due to various reasons. More recently has had problems with his lower extremity bypass and GI bleeding thereafter. Medications have been stopped and started particular his Xarelto is no longer being utilized after recent GI bleed with hemoglobin down to 6. A source has not been ascertained. He is now on aspirin and Plavix. He notes discomfort in his right lower extremity for which she is to follow-up with vascular surgery in the near future. His palpitations are dramatically improved over the last couple weeks. 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 He denies chest discomfort, dyspnea exertion, orthopnea, paroxysmal nocturnal dyspnea, palpitations, near-syncope or syncope. The patient is lives home with his spouse. He is a non-smoker having quit more recently but a moderate drinker. 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 Cardiac risk factors: Age, gender, hypertension, hyperlipidemia, known CAD, tobacco abuse previously, peripheral arterial disease Impression: 1. Mild coronary disease by cardiac catheterization 2020 2. History of SVT, asymptomatic and mild 3. History of palpitations, currently controlled 4. History of hypertension 5. History hyperlipidemia 6. History of aortic insufficiency, moderate 7. Ascending aortic dilatation 8. Peripheral arterial disease 9. Alcohol use, reduction if not cessation stressed and patient warned PLAN AND RECOMMENDATIONS: The patient overall appears stable from a cardiovascular standpoint. Given his ascending aortic dilatation history of palpitations and possible SVT which we cannot find adequate documentation of, we would recommend resumption of his previous diltiazem. We have placed him on long-acting diltiazem 120 mg daily. Heart rate and recent cholesterol profile are favorable for which we have made no other additions or changes. Dietary and lifestyle modification was emphasized to facilitate risk factor reduction. We applauded him on his tobacco cessation and once again told him to cut back or stop his alcohol intake altogether. We will look forward to reevaluate him in 2 to 3 months time. Vitals: BP 144/74 Pulse 74 Ht 182.9 cm (6') Wt 92.9 kg (204 lb 12.9 oz) SpO2 96% BMI 27.78 kg/m Physical Exam Vitals reviewed. Constitutional: General: He is not in acute distress. Appearance: Normal appearance. He is well-developed. He is not diaphoretic. HENT: Head: Normocephalic and atraumatic. Right Ear: External ear normal. Left Ear: External ear normal. Nose: Nose normal. Eyes: General: No scleral icterus. Right eye: No discharge. Left eye: No discharge. Pupils: Pupils are equal, round, and reactive to light. Neck: Thyroid: No thyromegaly. Vascular: No carotid bruit or JVD. Cardiovascular: Rate and Rhythm: Normal rate and regular rhythm. Heart sounds: No murmur heard. No friction rub. No gallop. Pulmonary: Effort: Pulmonary effort is normal. No respiratory distress. Breath sounds: Normal breath sounds. No wheezing or rales. Abdominal: General: Bowel sounds are normal. Palpations: Abdomen is soft. Musculoskeletal: General: Normal range of motion. Cervical back: Neck supple. Skin: General: Skin is warm and dry. Capillary Refill: Capillary refill takes less than 2 seconds. Coloration: Skin is not pale. Neurological: Mental Status: He is alert and oriented to person, place, and time. Cranial Nerves: No cranial nerve deficit. Psychiatric: Mood and Affect: Mood normal. Mood is not anxious or depressed. Behavior: Behavior normal. Thought Content: Thought content normal. Judgment: Judgment normal. Review of Systems Constitutional: Positive for fatigue. Negative for activity change, appetite change and unexpected weight change. HENT: Negative for ear pain and trouble swallowing. Eyes: Negative for pain and visual disturbance. Respiratory: Positive for shortness of breath. Negative for chest tightness. Cardiovascular: Positive for palpitations and leg swelling (Right). Negative for chest pain. Gastrointestinal: Positive for blood in stool. Negative for abdominal pain. Endocrine: Negative for cold intolerance and heat intolerance. Genitourinary: Negative for dysuria, hematuria and scrotal swelling. Musculoskeletal: Positive for gait problem. Negative for arthralgias and myalgias. Skin: Negative for pallor and rash. Allergic/Immunologic: Negative for immunocompromised state. Neurological: Negative for dizziness, syncope and light-headedness. Hematological: Negative for adenopathy. Does not bruise/bleed easily. Psychiatric/Behavioral: Negative for sleep disturbance. The patient is not nervous/anxious. PAST MEDICAL HISTORY Diagnosis Date Acute diverticulitis Aortic insufficiency Bursitis of elbow left Coronary artery disease mild nonobstructive Diverticulitis Migraines PAD (peripheral artery disease) (HCC) Palpitations Pinched nerve 11/04/2020 low back Psoriasis Raynaud disease SVT (supraventricular tachycardia) (HCC) Tobacco abuse PAST SURGICAL HISTORY Procedure Laterality Date COLON SURGERY HX COLONOSCOPY FLX DX W/COLLJ SPEC WHEN PFRMD 05/23/2014 Colonoscopy COLONOSCOPY FLX DX W/COLLJ SPEC WHEN PFRMD 09/24/2017 Colonoscopy COLONOSCOPY FLX DX W/COLLJ SPEC WHEN PFRMD 04/16/2021 ESOPHAGOGASTRODUODENOSCOPY TRANSORAL DIAGNOSTIC 05/23/2014 EGD ESOPHAGOGASTRODUODENOSCOPY TRANSORAL DIAGNOSTIC 08/15/2014 EGD HEMORRHOIDECTOMY INT & XTRNL 2/> COLUMN/FAHEEM 10/01/2017 left posterior PAST SURGICAL HISTORY OF 2008 Pain injections lumbar PAST SURGICAL HISTORY OF 08/03/2022 colostomy PAST SURGICAL HISTORY OF Right 12/2022 right popliteal to tibioperoneal trunk bypass - REVISION 05/14/2023 RT/LT HEART CATHETERS 08/09/2020 [facility] Social History Tobacco Use Smoking status: Former Packs/day: 1.00 Years: 39.00 Additional pack years: 0.00 Total pack years: 39.00 Types: Cigarettes Start date: 02/11/1981 Quit date: 04/24/2023 Years since quittin.5 Smokeless tobacco: Never Vaping Use Vaping Use: Never used Substance Use Topics Alcohol use: Yes Comment: 3-4 drinks per day 5 days per week; 2 drinks in August Drug use: No FAMILY HISTORY Problem Relation Age of Onset Breast Cancer Mother Diabetes Father Heart Father other (Raynauds) Daughter other (Raynauds) Son Diabetes Maternal Grandfather ALLERGIES Allergen Reactions Verapamil Rash CURRENT MEDICATIONS: atorvastatin (LIPITOR) 40 mg tablet Take 1 tablet by mouth daily at bedtime. amitriptyline (ELAVIL) 25 mg tablet Take 1 tablet by mouth daily at bedtime. clopidogrel (PLAVIX) 75 mg tablet Take 1 tablet by mouth once daily. HYDROcodone-acetaminophen (NORCO) 5-325 mg per tablet Take 1 tablet by mouth two times a day. iron polysaccharide complex (FERREX-150) 150 mg iron capsule Take 150 mg by mouth once daily. ondansetron orally disintegrating (ZOFRAN ODT) 4 mg disintegrating tablet tiZANidine (ZANAFLEX) 4 mg tablet Take 4 mg by mouth daily at bedtime. FLUoxetine (PROZAC) 40 mg capsule Take 1 capsule by mouth once daily. pantoprazole DR (PROTONIX) 40 mg tablet Take 1 tablet by mouth daily before breakfast. Take on empty stomach, 1/2 hr before meal. therapeutic multivitamin-minerals (THERA-M PLUS) 9 mg iron-400 mcg tablet Take 1 tablet by mouth once daily. thiamine (VITAMIN B1) 100 mg tablet Take 1 tablet by mouth once daily. aspirin 81 mg chewable tablet Take 1 tablet by mouth once daily. gabapentin (NEURONTIN) 300 mg capsule Take 1 capsule by mouth every 12 hours. TREMFYA 100 mg/mL AutoInjector Inject 100 mg subcutaneously every 8 weeks. fremanezumab-vfrm (AJOVY AUTOINJECTOR) 225 mg/1.5 mL auto-injector Ajovy 225 mg/1.5 mL subcutaneous auto-injector Inject 1.5 mL subcutaneously once a month rimegepant (NURTEC ODT) 75 mg disintegrating tablet Nurtec ODT 75 mg disintegrating tablet Take 1 tab under tongue at onset of migraine. Max 1 in 24 hours. acetaminophen (TYLENOL) 325 mg tablet Take 650 mg by mouth every 6 hours as needed. Ju Edwards DO, [facility], [facility] Cardiopulmonary Supervisor, [facility] Amb[facility]iology Cardiopulmonary Supervisor, [facility] Cardiac Rehabilitation Cardiopulmonary Supervisor, [facility] Cardiac Rehabilitation Cardiopulmonary Supervisor, [facility] Cardiopulmonary Supervisor, [facility] Ambulatory Cardiology Clinical Mash Filter Cloth Changer Profressor of Medicine, [facility] Staff Lens Grinding Machine Operator, Olimpia Hugo Department of Cardiovascular Medicine/Heart and Vascular [place], [facility] Please note: This note has been produced using speech recognition software and may contain errors related to that system including oxana, punctuation, spelling, words, gender and phrases that may be inappropriate. documented in this encounter [facility] 10-15-2023 Note HNO ID: [id number] Author: FREDI NUNN APRN.SIGNAL SUPERVISOR Service: ? Author Type: Nurse Practitioner Type: Progress Notes Filed: 10/19/2023 10:08 Note Text: Chief Complaint Patient presents with: Established Patient HPI: Choco Maldonado is a 62 year old male who presents here today for follow up anemia. Per Dr. Montalvo's previous note: H/o erythrocytosis, appeared secondary. JAK2 negative Recent divertiuclitis, colectomy PVD In [place] December 2022, had arterial clot, needed a bypass graft. Came back to [place], found to have clot in graft. Now on Xarelto after recanalized Now quite anemic, apparent GI bleed as blood found in stool, but negative scopes CLINICAL IMPRESSION: Secondary erythrocytosis, anemic right now. RECOMMENDATION/PLAN: 1. plan iron weekly x 4 Pt. received ferric gluconate while hospitalized in early August. Last received iron sucrose here 09/24/23. Quit smoking 2023. Appetite:Great. Wt. up 3# since August 2023 Energy level:Poor. Denies fevers or recent illness. Resp:denies cough or sob, occ. moore with steps/long distances Cardiac:denies chest pain/palpitations GI:denies abd pain, n/v, +ostomy :denies dysuria/hematuria Extrem:denies pain Neuro:occ. tingling to RLE Skin:denies rashes Heme:occ. bleeding base of stoma The ROS is otherwise negative. Past medical history, appointments, medications, allergies reviewed. No changes. EXAM: BP 155/77 Pulse 67 Temp 36.4 ?C (97.5 ?F) (Temporal) Wt 92.5 kg (204 lb) SpO2 97% BMI 27.67 kg/m? APPEARANCE Well appearing, alert, in no acute distress, well-hydrated, well nourished. HEART RRR with normal S1 and S2, no murmurs LUNG clear to auscultation LYMPH NODES No cervical lymphadenopathy, No supraclavicular lymphadenopathy, and No axillary lymphadenopathy. ABDOMEN ostomy, bowel sounds normoactive, soft, non-tender EXTREMITIES RLE edema NEURO Awake, alert and oriented x 3, Normal gait, and No involuntary motions. SKIN Skin color, texture, turgor normal, no suspicious rashes or lesions LABS: Latest Ref Rng 09/06/2023 09/24/2023 10/15/2023 WBC 3.70 - 11.00 k/uL 13.39 (H) 7.34 7.25 RBC 4.20 - 6.00 m/uL 2.97 (L) 3.81 (L) 4.32 Hemoglobin 13.0 - 17.0 g/dL 7.8 (L) 9.5 (L) 10.8 (L) Hematocrit 39.0 - 51.0 % 26.2 (L) 31.1 (L) 35.5 (L) MCV 80.0 - 100.0 fL 88.2 81.6 82.2 MCH 26.0 - 34.0 pg 26.3 24.9 (L) 25.0 (L) MCHC 30.5 - 36.0 g/dL 29.8 (L) 30.5 30.4 (L) RDW-CV 11.5 - 15.0 % 19.0 (H) 17.7 (H) 18.6 (H) Platelet Count 150 - 400 k/uL 651 (H) 420 (H) 403 (H) MPV 9.0 - 12.7 fL 9.4 8.9 (L) 9.0 Neut% % 68.6 60.4 Abs Neut (ANC) 1.45 - 7.50 k/uL 5.03 4.37 Lymph% % 23.0 29.9 Abs Lymph 1.00 - 4.00 k/uL 1.69 2.17 Lenoir% % 4.1 5.9 Abs Lenoir <0.87 k/uL 0.30 0.43 Eosin% % 2.7 2.6 Abs Eosin <0.46 k/uL 0.20 0.19 Baso% % 1.2 1.1 Abs Baso <0.11 k/uL 0.09 0.08 Immature Gran % % 0.4 0.1 IMMATURE GRANS (ABS) <0.10 k/uL 0.03 <0.03 NRBC /100 WBC 0.0 0.0 Absolute nRBC <0.01 k/uL <0.01 <0.01 <0.01 DTYPE Auto Auto Iron studies: Pending ASSESSMENT/PLAN: 1. Other iron deficiency anemia - ICD9: 280.8, ICD10: D50.8 - Last received iron sucrose September 24, 2023. - Reviewed CBC with pt. - Iron studies pending. - Follow up with Cards/GI/Vasc/PCP as scheduled. - Follow up pending iron studies. Will call pt. on Wednesday. - Pt. aware to call office with any questions/concerns. The patient indicates understanding of these issues and agrees with the plan. All documentation from previous visit of 08/27/23-Dr. Montalvo was copied and pasted, documentation has been reviewed and edited as necessary for today's visit. Fredi Nunn APRN.[facility] 06-14-2024 History of Present illness Narrative Chief Complaint Patient presents with: Established Patient HPI: Choco Maldonado is a 62 year old male who presents here today for follow up anemia. Per Dr. Montalvo's previous note: H/o erythrocytosis, appeared secondary. JAK2 negative Recent divertiuclitis, colectomy PVD In [place] December 2022, had arterial clot, needed a bypass graft. Came back to [place], found to have clot in graft. Now on Xarelto after recanalized Now quite anemic, apparent GI bleed as blood found in stool, but negative scopes CLINICAL IMPRESSION: Secondary erythrocytosis, anemic right now. RECOMMENDATION/PLAN: 1. plan iron weekly x 4 Pt. received ferric gluconate while hospitalized in early August. Last received iron sucrose here 09/24/23. Quit smoking 2023. Appetite:Great. Wt. up 3# since August 2023 Energy level:Poor. Denies fevers or recent illness. Resp:denies cough or sob, occ. moore with steps/long distances Cardiac:denies chest pain/palpitations GI:denies abd pain, n/v, +ostomy :denies dysuria/hematuria Extrem:denies pain Neuro:occ. tingling to RLE Skin:denies rashes Heme:occ. bleeding base of stoma The ROS is otherwise negative. Past medical history, appointments, medications, allergies reviewed. No changes. EXAM: BP 155/77 Pulse 67 Temp 36.4 C (97.5 F) (Temporal) Wt 92.5 kg (204 lb) SpO2 97% BMI 27.67 kg/m APPEARANCE Well appearing, alert, in no acute distress, well-hydrated, well nourished. HEART RRR with normal S1 and S2, no murmurs LUNG clear to auscultation LYMPH NODES No cervical lymphadenopathy, No supraclavicular lymphadenopathy, and No axillary lymphadenopathy. ABDOMEN ostomy, bowel sounds normoactive, soft, non-tender EXTREMITIES RLE edema NEURO Awake, alert and oriented x 3, Normal gait, and No involuntary motions. SKIN Skin color, texture, turgor normal, no suspicious rashes or lesions LABS: Latest Ref Rng 09/06/2023 09/24/2023 10/15/2023 WBC 3.70 - 11.00 k/uL 13.39 (H) 7.34 7.25 RBC 4.20 - 6.00 m/uL 2.97 (L) 3.81 (L) 4.32 Hemoglobin 13.0 - 17.0 g/dL 7.8 (L) 9.5 (L) 10.8 (L) Hematocrit 39.0 - 51.0 % 26.2 (L) 31.1 (L) 35.5 (L) MCV 80.0 - 100.0 fL 88.2 81.6 82.2 MCH 26.0 - 34.0 pg 26.3 24.9 (L) 25.0 (L) MCHC 30.5 - 36.0 g/dL 29.8 (L) 30.5 30.4 (L) RDW-CV 11.5 - 15.0 % 19.0 (H) 17.7 (H) 18.6 (H) Platelet Count 150 - 400 k/uL 651 (H) 420 (H) 403 (H) MPV 9.0 - 12.7 fL 9.4 8.9 (L) 9.0 Neut% % 68.6 60.4 Abs Neut (ANC) 1.45 - 7.50 k/uL 5.03 4.37 Lymph% % 23.0 29.9 Abs Lymph 1.00 - 4.00 k/uL 1.69 2.17 Lenoir% % 4.1 5.9 Abs Lenoir <0.87 k/uL 0.30 0.43 Eosin% % 2.7 2.6 Abs Eosin <0.46 k/uL 0.20 0.19 Baso% % 1.2 1.1 Abs Baso <0.11 k/uL 0.09 0.08 Immature Gran % % 0.4 0.1 IMMATURE GRANS (ABS) <0.10 k/uL 0.03 <0.03 NRBC /100 WBC 0.0 0.0 Absolute nRBC <0.01 k/uL <0.01 <0.01 <0.01 DTYPE Auto Auto Iron studies: Pending ASSESSMENT/PLAN: 1. Other iron deficiency anemia - ICD9: 280.8, ICD10: D50.8 - Last received iron sucrose September 24, 2023. - Reviewed CBC with pt. - Iron studies pending. - Follow up with Cards/GI/Vasc/PCP as scheduled. - Follow up pending iron studies. Will call pt. on Wednesday. - Pt. aware to call office with any questions/concerns. The patient indicates understanding of these issues and agrees with the plan. All documentation from previous visit of 08/27/23-Dr. Montalvo was copied and pasted, documentation has been reviewed and edited as necessary for today's visit. Fredi Nunn APRN.CNP documented in this encounter [facility] 10-13-2023 Telephone encounter Note (Case reviewed with Dr Yao) Spoke with patient regarding LDCT scan results and the following was discussed: LungRADS category 4 - RUL 13mm part solid lung nodule reported as new, though has been present on prior images. This nodule is slightly more dense then prior scan. Plan: 6 month follow-up with imaging All questions answered. Patient stated understanding of the results and the plan and feels comfortable with it. Leslie Ibrahim APRN.CNP October 13, 2023 [facility] 10-13-2023 Miscellaneous Notes (Case reviewed with Dr Yao) Spoke with patient regarding LDCT scan results and the following was discussed: LungRADS category 4 - RUL 13mm part solid lung nodule reported as new, though has been present on prior images. This nodule is slightly more dense then prior scan. Plan: 6 month follow-up with imaging All questions answered. Patient stated understanding of the results and the plan and feels comfortable with it. Leslie Ibrahim APRN.CNP October 13, 2023 documented in this encounter [facility] 10-11-2023 Instructions Leslie Ibrahim APRN.CNP - 10/11/2023 11:56 AM EDT Lung Nodules: All previously seen nodule/s have not changed in size or characteristic and there are no new nodules of concern. Please return in one year for the following 2 visits on the same day: 1) Annual low-dose CT chest 2)Lung cancer screening Provider visit. This recommendation is subject to change pending the final report from radiology. I will notify you of the final radiology report recommendations when available by [employer] message, letter, or phone call. We will also notify your referring provider/PCP of the results and recommendations. If you didn t schedule this before you left the office or need to reschedule, you can call in to schedule it anytime: [facility] [phone] [facility] [phone] All other [facility] locations [phone] Feel free to reach out for any questions or concerns, Leslie Ibrahim APRN.SIGNAL SUPERVISOR Lung Cancer Screening [phone] documented in this encounter [facility] 10-11-2023 History of Present illness Narrative Images from the original note were not included. [facility] Lung Cancer Screening Annual Visit Current or Ex-smoker? [Ex] Exam Type: annual LDCT Number of Pack Years: 40 Current smoker (=0) or Number of Years since Quit: 6 months The patient's smoking history is similar to prior year shared decision visit. Impression / Recommendations Lung nodules: Previously identified nodules appear stable. Patient has a consolidative opacity in the RUL (102) along a fissure line that was initially seen in August 2022, disappeared in March 2023, and reappeared 2 months ago in August 2023. When compared to the August scan, this opacity appears slightly more dense on today's scan. Given opacity disappeared and reappeared, this could potentially represent atelectasis. Low dose CT Scan to be repeated in one year. Plan subject to change pending final radiology report and recommendations. Nature of the lung nodule(s) and the options for further evaluation discussed in detail with patient. Choco Maldonado expressed understanding and is in agreement with plan. 2. Encounter for screening for lung cancer I have determined that the patient is eligible for continued low dose CT screening based on age, absence of signs or symptoms of lung cancer, smoking history and total pack years. The patient was counseled on the importance of adherence to annual LDCT lung cancer screening, impact of comorbidities and ability or willingness to undergo diagnosis and treatment. The patient understands and feels comfortable with it: Yes. 3. Personal History of Nicotine Dependence The patient was counseled on the importance of maintaining cigarette smoking abstinence - The patient is committed to remaining abstinent from tobacco. Thank you for allowing me to participate in the care of Choco Maldonado. Please feel free to contact me with any questions or concerns. Chief Complaint: Established patient in lung cancer screening program here for annual follow-up. History of Present Illness: Choco Maldonado is a 62 year old male who is presenting today for annual lung cancer screening LDCT and nodule follow-up. Patient has nodules found on lung cancer screening LDCT. Last LDCT was performed on 03/09/23 and was LUNG RADS Category 2. Previous potentially significant incidental findings on imaging: aortic ectasia (follows with cardiology). However, patient was not due for screening until March 2024. Patient is a former smoker with a 40 pack year history. Patient quit smoking 6 months ago at age 62. Patient will continue to be eligible for lung cancer screening until age 77. Respiratory symptoms include: SOB: Yes with multiple flights of stairs Chest tightness: No Coughing: No Hemoptysis: No Wheezing: No Night Sweats: No Recent Respiratory Infection: No Unintentional weight loss: No Last 12 Encounter Wt Readings: Date: Wt: 10/06/2023 90.7 kg (200 lb) 10/05/2023 91.2 kg (201 lb) 08/31/2023 90.3 kg (199 lb) 08/31/2023 89.8 kg (198 lb) 08/27/2023 91.2 kg (201 lb) 08/17/2023 94.1 kg (207 lb 8 oz) 08/17/2023 91.2 kg (201 lb) 07/16/2023 88.5 kg (195 lb) 07/14/2023 88.4 kg (194 lb 12.8 oz) 07/14/2023 88 kg (194 lb) 07/01/2023 88 kg (194 lb) 06/19/2023 90.7 kg (200 lb) ECOG PERFORMANCE STATUS: 1- Restricted in physically strenuous activity. Carries out light duty. Family Hx: FAMILY HISTORY Problem Relation Age of Onset Breast Cancer Mother Diabetes Father Heart Father other (Raynauds) Daughter other (Raynauds) Son Diabetes Maternal Grandfather Past Medical History: PAST MEDICAL HISTORY Diagnosis Date Acute diverticulitis Aortic insufficiency Bursitis of elbow left Coronary artery disease mild nonobstructive Diverticulitis Migraines PAD (peripheral artery disease) ([facility]) Palpitations Pinched nerve 11/04/2020 low back Psoriasis Raynaud disease SVT (supraventricular tachycardia) ([facility]) Tobacco abuse Surgical Hx: PAST SURGICAL HISTORY Procedure Laterality Date COLON SURGERY HX COLONOSCOPY FLX DX W/COLLJ SPEC WHEN PFRMD 05/23/2014 Colonoscopy COLONOSCOPY FLX DX W/COLLJ SPEC WHEN PFRMD 09/24/2017 Colonoscopy COLONOSCOPY FLX DX W/COLLJ SPEC WHEN PFRMD 04/16/2021 ESOPHAGOGASTRODUODENOSCOPY TRANSORAL DIAGNOSTIC 05/23/2014 EGD ESOPHAGOGASTRODUODENOSCOPY TRANSORAL DIAGNOSTIC 08/15/2014 EGD HEMORRHOIDECTOMY INT & XTRNL 2/> COLUMN/FAHEEM 10/01/2017 left posterior PAST SURGICAL HISTORY OF 2008 Pain injections lumbar PAST SURGICAL HISTORY OF 08/03/2022 colostomy PAST SURGICAL HISTORY OF Right 12/2022 right popliteal to tibioperoneal trunk bypass RT/LT HEART CATHETERS 08/09/2020 [facility] Allergies: ALLERGIES Allergen Reactions Verapamil Rash Social History Tobacco Use: 1 packs/day, for 39 years. Quit 04/24/2023. Types: Cigarettes Review Of Systems: See HPI for ROS All of the remainder systems were reviewed and negative. PHYSICAL EXAMINATION: BP 146/61 Pulse 53 Wt 205 lb (93.0kg) SpO2 99% General appearance: Alert, pleasant. Well-appearing, in no visible distress. Skin: Not pallorous. Not diaphoretic. No jaundice. No cyanosis HEENT: No palpable cervical or supraclavicular lymphadenopathy. No thyromegaly. Lungs: Clear to auscultation bilaterally. No wheeze. No crackles. No rhonchi. Respiratory effort normal. Heart: Regular rate and rhythm. No murmur. No peripheral edema. Extremities: Adequate capillary refill. No digital clubbing. Neuro: Alert and oriented. Speech intact. Muscle strength grossly intact bilaterally The remainder of the physical exam is otherwise negative. Diagnostic Data LDCT 10/11/23: RUL (102)- increased in density, possibly atelectasis 10/11/23 08/17/23 03/09/23 09/07/22 I have personally reviewed and confirmed the imaging findings. CT imaging done today was reviewed independently by practitioner and awaiting radiology review. CT was compared to prior CT chest. Last CT/CTA Chest/Lungs CT LUNG SCREEN WO IVCON Exam End: 03/09/2023 1:22 PM (Final result) Narrative: * * *Final Report* * * DATE OF EXAM: Mar 09 2023 1:22PM [facility] 0562 [facility] PROCEDURE REASON: multiple diagnoses * * * * Physician Interpretation * * * * EXAMINATION: CHEST CT WITHOUT CONTRAST (LOW-DOSE CT LUNG CANCER SCREENING PROTOCOL) CLINICAL HISTORY: Lung cancer LDCT screening ? absence of signs or symptoms of lung cancer. Nicotine dependence (cigarettes). Subsequent (annual) Technique: Spiral CT acquisition of the chest from the thoracic inlet to the upper abdomen without contrast. MQ: [id number]_6 Patient characteristics: * Caiq-qp-Ggzyp: 1960; Age at exam: 62 years * Gender: Male * Lung Disease: Asymptomatic (no signs or symptoms of lung disease) * Number of Pack Years: 39 * Current smoker (=0) or Number of Years since Quit: 0 * Ordering provider and NPI: NANCI INGRAM [id number] * Interpreting radiologist and NPI: Karolyn [id number] Exam acquisition parameters: * Exam Date: 03/09/2023 1:22 PM * Site: [facility] * * CT System Physicist Astrophysics: Siemens * CT System Model: Sensation * Tube Current-Time (mA-sec): 24 * Peak Voltage (kV): 120V * Scan Time (sec): 12.35 * Scan Volume (z-length, cm): -33.15 * Pitch: 0.75 * Slice Thickness (mm): 1.5 * CT Dose-Length Product: 89 mGy*cm * CT Dose Index: 1.89mGy * CT Dose Reduction Method: Automated exposure control(AEC) and iterative recon COMPARISON: 09/07/2022 RESULT: Are nodules present? Yes, 1-5 nodules If No, go to IMPRESSION. If yes, proceed with characterization of the FIVE largest nodules. Nodule 1: This solid nodule is located in the RUL on slice number 82 with an average diameter of 3 mm (3 mm x 3 mm). Stable If this is an ANNUAL LDCT for LCS, please ensure nodule number is the same as in the prior evaluation. Other lung nodule comments: Previously noted semisolid nodule in the posterior right upper lobe has resolved and was likely inflammatory/infectious in nature. Additional granulomas are also noted. A nodular opacity in the lingula is unchanged and is likely related to atelectasis/scarring, image 228. Other findings: Mild biapical scarring is likely postinflammatory. Linear atelectasis/scarring is noted in the right middle lobe and lingula. Central airways are patent. No pleural effusion. The thyroid gland is unremarkable. Few subcentimeter mediastinal and hilar lymph nodes are nonspecific. The esophagus is nondistended. The aortic root is ectatic, measuring approximately 4.1 cm, although evaluation is limited on this noncontrast examination. Also noted is mild ectasia of the ascending thoracic aorta, measuring 4.2 cm in the mid segment. Central pulmonary arteries are normal in size. Cardiac chambers are normal in size. No pericardial effusion is noted. Limited images of the upper abdomen are unremarkable. Mild degenerative changes are noted in the thoracic spine. Emphysema: Mild, Centrilobular, Upper lobe Coronary Artery Calcifications: Circumflex None; Left Anterior Descending None; Right Coronary None Firefighter (topogram) images: No additional findings. - Impression: IMPRESSION: LungRADS category: 2 LungRADS modifier: None LungRADS 0 reason: n/a Recommendations: Continue annual screening with LDCT in 12 months. 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 Reference: [employer]. Lung CT Screening Reporting and Data System (Lung-RADS). Available at: http://www.acr.org/Quality-Safety/Reso urces/LungRADS Bartacker: ANNALISE Transcribe Date/Time: Mar 09 2023 3:45P Dictated by : SEEMA MALDONADO MD This examination was interpreted and the report reviewed and electronically signed by: SEEMA MALDONADO MD on Mar 09 2023 4:08PM EST Last CT Chest - Impression Only No resulted procedures found. Last XR Chest - Impression Only XR CHEST 2V FRONTAL/LAT Exam End: 08/17/2023 2:10 PM (Final result) Impression: IMPRESSION: No acute radiographic abnormality. ... Pulmonary Function Testing: No textual results found for the specified procedure(s). Assessment / Plan To optimize physician communication via the electronic health record, the Assessment & Plan section has been placed at the beginning of this note. - Leslie Ibrahim APRN.CNP Pulmonary & Critical Care Medicine [facility] [place] October 11, 2023 8:29 AM documented in this encounter [facility] 10-11-2023 History of Present illness Narrative Radiology Service Progress Note PATIENT NAME: Choco Maldonado DATE OF SERVICE: October 11, 2023 TIME: 11:28 AM PATIENT IDENTITY VERIFICATION COMPLETED USING TWO (2) IDENTIFIERS: Name and Date of confirmed by patient verbally. FALL SCREENING: Has the patient had 2 falls in the last year or 1 fall with injury or currently using an Ambulatory Assistive Device (Walker, Cane, Wheelchair, Crutches, etc.)? No PATIENT GENDER DATA: Male PATIENT RELEVANT IMPLANT DATA REVIEWED: Yes PATIENT PRESENTS WITH AN IMPLANTABLE OR ATTACHED SPOT WASHER: No RADIOLOGY DEPARTMENT: CT; Exam(s) Completed: Lung Screening PERIPHERAL IV DATA: Not applicable SIGNED BY: RT Nicolle(R) October 11, 2023 11:28 AM documented in this encounter [facility] 10-06-2023 History of Present illness Narrative Images from the original note were not included. Heart , Vascular and Thoracic [place] DEPARTMENT OF VASCULAR SURGERY OUTPATIENT VISIT DATE October 06, 2023 OUTPATIENT VISIT TYPE ESTABLISHED SERVICE DATE: 10/06/2023 SERVICE TIME: 12:20 PM PRIMARY CARE PHYSICIAN: Linda Parish MD HISTORY OF PRESENT ILLNESS: Mr. Maldonado is a 62 year old male who presents today for a vascular surgery follow-up visit Surgery/Procedure Date: 07/29/2023 Surgeon(s)/Proceduralist(s) and Mash Filter Cloth Changer(s): * Christiana Arrington MD - Primary INTERVENTIONAL PROCEDURE: Ultrasound-guided left common femoral access right lower extremity angiogram Balloon angioplasty of proximal anastamosis with 4mm drug-coated balloon. Surgery/Procedure Date: 05/14/2023 Surgeon(s)/Proceduralist(s) and Mash Filter Cloth Changer(s): * Christiana Arrington MD - Primary Procedure(s): Redo right above knee popliteal to posterior tibial bypass with reversed right saphenous vein Ligation of prior fem-tp trunk bypass right saphenous vein harvest Completion angiogram Surgery/Procedure Date: 04/29/2023 Surgeon(s)/Proceduralist(s) and Mash Filter Cloth Changer(s): * Cecille Sarabia MD - Primary Procedure Performed: 1) Diagnostic angiogram of the RIGHT lower extremity 2) Penumbra suction thrombectomy with CAT 7 3) 4mm DCB of the distal PTFE-TP trunk anastomosis 4) 3mm POBA of the distal TPT into the PT 4) Completion angiogram 5) Placement of a Proglide percutaneous closure device in the LEFT groin. Prior bypass w tapered 4-7mm ptfe fem-bk pop, occluded within months of insertion prompting lysis, now s/p fem-pt bypass w vein Stopped ac due to gi bleed, hosptilaized 06/19/23-06/25/23, 08/[address] Aranda, then went to [facility] and seen by Dr Grey PAST MEDICAL HISTORY Diagnosis Date Acute diverticulitis Aortic insufficiency Bursitis of elbow left Coronary artery disease mild nonobstructive Diverticulitis Migraines PAD (peripheral artery disease) ([facility]) Palpitations Pinched nerve 11/04/2020 low back Psoriasis Raynaud disease SVT (supraventricular tachycardia) ([facility]) Tobacco abuse PAST SURGICAL HISTORY Procedure Laterality Date COLON SURGERY HX COLONOSCOPY FLX DX W/COLLJ SPEC WHEN PFRMD 05/23/2014 Colonoscopy COLONOSCOPY FLX DX W/COLLJ SPEC WHEN PFRMD 09/24/2017 Colonoscopy COLONOSCOPY FLX DX W/COLLJ SPEC WHEN PFRMD 04/16/2021 ESOPHAGOGASTRODUODENOSCOPY TRANSORAL DIAGNOSTIC 05/23/2014 EGD ESOPHAGOGASTRODUODENOSCOPY TRANSORAL DIAGNOSTIC 08/15/2014 EGD HEMORRHOIDECTOMY INT & XTRNL 2/> COLUMN/FAHEEM 10/01/2017 left posterior PAST SURGICAL HISTORY OF 2007 Pain injections lumbar PAST SURGICAL HISTORY OF 08/03/2022 colostomy PAST SURGICAL HISTORY OF Right 12/2022 right popliteal to tibioperoneal trunk bypass RT/LT HEART CATHETERS 08/09/2020 [facility] SOCIAL HISTORY Social History Tobacco Use Smoking status: Former Packs/day: 1.00 Years: 39.00 Additional pack years: 0.00 Total pack years: 39.00 Types: Cigarettes Start date: 02/11/1981 Quit date: 04/24/2023 Years since quittin.4 Smokeless tobacco: Never Vaping Use Vaping Use: Never used Substance Use Topics Alcohol use: Yes Comment: 3-4 drinks per day 5 days per week; 2 drinks in August Drug use: No MEDICATIONS: atorvastatin (LIPITOR) 40 mg tablet Take 1 tablet by mouth daily at bedtime. amitriptyline (ELAVIL) 25 mg tablet Take 1 tablet by mouth daily at bedtime. clopidogrel (PLAVIX) 75 mg tablet Take 1 tablet by mouth once daily. HYDROcodone-acetaminophen (NORCO) 5-325 mg per tablet Take 1 tablet by mouth two times a day. iron polysaccharide complex (FERREX-150) 150 mg iron capsule Take 150 mg by mouth once daily. ondansetron orally disintegrating (ZOFRAN ODT) 4 mg disintegrating tablet tiZANidine (ZANAFLEX) 4 mg tablet Take 4 mg by mouth daily at bedtime. FLUoxetine (PROZAC) 40 mg capsule Take 1 capsule by mouth once daily. pantoprazole DR (PROTONIX) 40 mg tablet Take 1 tablet by mouth daily before breakfast. Take on empty stomach, 1/2 hr before meal. folic acid 1 mg tablet Take 1 tablet by mouth once daily. senna (SENOKOT) 8.6 mg tab Take 1 tablet by mouth two times a day as needed for constipation. therapeutic multivitamin-minerals (THERA-M PLUS) 9 mg iron-400 mcg tablet Take 1 tablet by mouth once daily. thiamine (VITAMIN B1) 100 mg tablet Take 1 tablet by mouth once daily. aspirin 81 mg chewable tablet Take 1 tablet by mouth once daily. polyethylene glycol 3350 17 gram packet Take 1 Packet by mouth once daily as needed for constipation. Dissolve dose in 4 - 8 ounces of liquid and take as directed. gabapentin (NEURONTIN) 300 mg capsule Take 1 capsule by mouth every 12 hours. TREMFYA 100 mg/mL AutoInjector Inject 100 mg subcutaneously every 8 weeks. fremanezumab-vfrm (AJOVY AUTOINJECTOR) 225 mg/1.5 mL auto-injector Ajovy 225 mg/1.5 mL subcutaneous auto-injector Inject 1.5 mL subcutaneously once a month rimegepant (NURTEC ODT) 75 mg disintegrating tablet Nurtec ODT 75 mg disintegrating tablet Take 1 tab under tongue at onset of migraine. Max 1 in 24 hours. acetaminophen (TYLENOL) 325 mg tablet Take 650 mg by mouth every 6 hours as needed. ALLERGIES: ALLERGIES Allergen Reactions Verapamil Rash PHYSICAL EXAM: There were no vitals taken for this visit. General: Alert and oriented Extremities: No deformity, no edema or tenderness, no joint swelling or clubbing. Vascular: palpable bypass in R medial knee Diagnostic tests reviewed for today's visit: Most recent labs Most recent imaging 08/21/23 duplex: prox anastamosis 50-995, distal anastamosis 50-99% 08/21/23 RABI 0.91, LABI 1.26 07/07/23 RABI 0.46, LABI 1.12 07/07/23 duplex: proximal anastamosis 5-99% stenosis, but remains patent 06/09/23 osh study report: RABI 1.10, LABI 1.23, read by Emile Hernandez 06/09/23 osh study report: no stenosis in bypass, elevated velocities IMPRESSION: Mr. Maldonado is a 62 year old male s/p RLE fem-pt bypass w stenosis, but presrved SAVANNA. Will cont monitor for now . PLAN and RECOMMENDATIONS: Cont optimalm edical mgmt Fu 3 months repeat asvanna and art duplex for aggressive surveillance SIGNATURE: Christiana Arrington MD PATIENT NAME: Choco Maldonado DATE: October 06, 2023 TIME: 12:20 PM documented in this encounter [facility] 10-05-2023 History of Present illness Narrative Patient presents with: Follow Up HPI: Patient presents today for office visit for follow up. Admitted 08/30-09/06 Xarelto d/c during last hospital stay 08/21-08/24. Readmitted into [facility] main on 08/31/23 due to down trending Hgb and symptoms of anemia. 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 Per GI, these are difficult to reach and likely too small to be the main bleeding culprit. Was challeneged w/ heparin for 48hrs w/ no further signs of bleeding or drop in Hgb. ASA/Plavix were restated on 09/05 and he had no bleeding for one day. Small bowel capsule endoscopy 09/02/23: Small AVM in distal jejunum. Otherwise, normal small bowel capsule endoscopy. Discharged on 09/07/23. No definite black stools. No pallor. Still somewhat tired. No chest pain or shortness of breath. Follow up with Heme 10/15/23. Continues with infusions. Last infusion 09/24/23. Takes Prozac for his Raynaud's. Prozac increased to 40 mg at last OV due to some anxiety concerns. Increase seems to be helping. States he's still so tired all the time. HLD: Continues on Atorvastatin 40 mg daily No myalgias No new or worsening shortness of breath Denies chest pain Has follow ups with cardiology and pulmonary ordered No follow up with gi or vascular surgery. Leg is about the same. No worsening swelling or redness. Latest Ref Rng 09/24/2023 WBC 3.70 - 11.00 k/uL 7.34 RBC 4.20 - 6.00 m/uL 3.81 (L) Hemoglobin 13.0 - 17.0 g/dL 9.5 (L) Hematocrit 39.0 - 51.0 % 31.1 (L) MCV 80.0 - 100.0 fL 81.6 MCH 26.0 - 34.0 pg 24.9 (L) MCHC 30.5 - 36.0 g/dL 30.5 RDW-CV 11.5 - 15.0 % 17.7 (H) Platelet Count 150 - 400 k/uL 420 (H) MPV 9.0 - 12.7 fL 8.9 (L) Neut% % 68.6 Abs Neut (ANC) 1.45 - 7.50 k/uL 5.03 Lymph% % 23.0 Abs Lymph 1.00 - 4.00 k/uL 1.69 Lenoir% % 4.1 Abs Lenoir <0.87 k/uL 0.30 Eosin% % 2.7 Abs Eosin <0.46 k/uL 0.20 Baso% % 1.2 Abs Baso <0.11 k/uL 0.09 Immature Gran % % 0.4 IMMATURE GRANS (ABS) <0.10 k/uL 0.03 NRBC /100 WBC 0.0 Absolute nRBC <0.01 k/uL <0.01 DTYPE Auto Protein, Total 6.3 - 8.0 g/dL 7.5 Albumin 3.9 - 4.9 g/dL 4.4 Calcium 8.5 - 10.2 mg/dL 9.6 Bilirubin, Total 0.2 - 1.3 mg/dL 0.4 Alkaline Phosphatase 38 - 113 U/L 110 AST 14 - 40 U/L 14 ALT 10 - 54 U/L 14 Glucose 74 - 99 mg/dL 99 BUN 9 - 24 mg/dL 12 Creatinine 0.73 - 1.22 mg/dL 0.84 Sodium 136 - 144 mmol/L 136 Potassium 3.7 - 5.1 mmol/L 4.0 Chloride 97 - 105 mmol/L 102 CO2 22 - 30 mmol/L 25 Anion Gap 9 - 18 mmol/L 9 eGFR >=60 mL/min/1.73m 99 Ferritin 30.3 - 565.7 ng/mL 44.0 Legend: (L) Low (H) High Has new patient appointment with Cardiology on 10/28/23 for malaise. Choco Maldonado is a 62 year old male w/ PMHx of Diverticulitis s/p surgery now w/ ostomy, iron def anemia, and PAD s/p bypass and angioplasty who is admitted for recurrent occult GIB. He was HDS. While admitted he had 2 blood transfusions and had a VCE that did not identify an obvious bleeding source. He underwent a 48hr heparin challenge and had no further signs of bleeding. Was restarted on DAPT and will have close follow-up outpatient. Individual Problems Addressed as Follows #Acute on Chronic Anemia #Suspected GI Bleed #Iron Deficiency Anemia Patient was recently admitted from 08/21-08/24 w/ concerns for GIB. During that admission he had push enteroscopy which did not show signs of bleeding. During this admission his DOAC was stopped and he was instead started on ASA/Plavix. At a f/u PCP appointment on 08/30 he was noted to have downtrending Hgb and symptoms of anemia, so he was advised to go to the ED where he was re-admitted. 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 Per GI, these are difficult to reach and likely to small to be the main bleeding culprit. Was challeneged w/ heparin for 48hrs w/ no further signs of bleeding or drop in Hgb. ASA/Plavix were restated on 09/05 and he had no bleeding for one day. Plan - Will go home on ASA/Plavix - Close follow-up w/ Heme/GI - Per GI, if re-bleeds next intervention would be anterograde single vs double balloon enteroscopy #PAD Had R popliteal-tibioperoneal trunk bypass in 12/2022 at OSH for claudication and then in 04/2023 had critical limb ischemia 2/2 distal occlusion of his bypass graft. At this time he had catheter directed thrombolysis. Was started on Xarelto. In May 2023 had redo of the bypass and underwent redo R above-knee popliteal to posterior tibial bypass w/ reversed saphenous vein, ligation of prior fem-tb trunk bypass, R saphenous vein harvest. Again on 07/28 required angioplasty of proximal anastomosis w/ 4mm balloon. Has had multiple interruptions in his anticoagulation and antiplatelet therapy because of his occult bleeding. Plan - Back on ASA/Plavix today - Continue Statin - Vascular Surgery Follow-Up OPERATIONS/PROCEDURE DURING THIS HOSPITALIZATION: * No surgery found * No other procedures VCE Gastric images are limited, no gross lesions seen. No fresh or old blood seen, no AVMs or angiodysplasias. Small AVM in distal jejunum, Rest of the small bowel mucosa appeared completely normal, no active bleeding or lesions with bleeding potential seen. Villi are normal height and morphology, no scalloping of the folds seen, no features of inflammation or ulcerations. Preparation is good. Capsule passes to cecum. CONSULTS DURING HOSPITALIZATION: Treatment Team: Attending Provider: Everardo Shelby MD Primary Service: 5, Gim Orders Placed This Encounter CONSULT TO GASTROENTEROLOGY CONSULT TO VASCULAR SURGERY CONSULT TO VASCULAR SURGERY MEDICATIONS: Current Outpatient Medications Medication Sig atorvastatin (LIPITOR) 40 mg tablet Take 1 tablet by mouth daily at bedtime. amitriptyline (ELAVIL) 25 mg tablet Take 1 tablet by mouth daily at bedtime. clopidogrel (PLAVIX) 75 mg tablet Take 1 tablet by mouth once daily. HYDROcodone-acetaminophen (NORCO) 5-325 mg per tablet Take 1 tablet by mouth two times a day. iron polysaccharide complex (FERREX-150) 150 mg iron capsule Take 150 mg by mouth once daily. ondansetron orally disintegrating (ZOFRAN ODT) 4 mg disintegrating tablet tiZANidine (ZANAFLEX) 4 mg tablet Take 4 mg by mouth daily at bedtime. FLUoxetine (PROZAC) 40 mg capsule Take 1 capsule by mouth once daily. pantoprazole DR (PROTONIX) 40 mg tablet Take 1 tablet by mouth daily before breakfast. Take on empty stomach, 1/2 hr before meal. folic acid 1 mg tablet Take 1 tablet by mouth once daily. senna (SENOKOT) 8.6 mg tab Take 1 tablet by mouth two times a day as needed for constipation. therapeutic multivitamin-minerals (THERA-M PLUS) 9 mg iron-400 mcg tablet Take 1 tablet by mouth once daily. thiamine (VITAMIN B1) 100 mg tablet Take 1 tablet by mouth once daily. aspirin 81 mg chewable tablet Take 1 tablet by mouth once daily. polyethylene glycol 3350 17 gram packet Take 1 Packet by mouth once daily as needed for constipation. Dissolve dose in 4 - 8 ounces of liquid and take as directed. gabapentin (NEURONTIN) 300 mg capsule Take 1 capsule by mouth every 12 hours. TREMFYA 100 mg/mL AutoInjector Inject 100 mg subcutaneously every 8 weeks. fremanezumab-vfrm (AJOVY AUTOINJECTOR) 225 mg/1.5 mL auto-injector Ajovy 225 mg/1.5 mL subcutaneous auto-injector Inject 1.5 mL subcutaneously once a month rimegepant (NURTEC ODT) 75 mg disintegrating tablet Nurtec ODT 75 mg disintegrating tablet Take 1 tab under tongue at onset of migraine. Max 1 in 24 hours. acetaminophen (TYLENOL) 325 mg tablet Take 650 mg by mouth every 6 hours as needed. No current facility-administered medications for this visit. ALLERGIES: ALLERGIES Allergen Reactions Verapamil Rash PAST MEDICAL HISTORY Diagnosis Date Acute diverticulitis Aortic insufficiency Bursitis of elbow left Coronary artery disease mild nonobstructive Diverticulitis Migraines PAD (peripheral artery disease) ([facility]) Palpitations Pinched nerve 11/04/2020 low back Psoriasis Raynaud disease SVT (supraventricular tachycardia) ([facility]) Tobacco abuse PAST SURGICAL HISTORY Procedure Laterality Date COLON SURGERY HX COLONOSCOPY FLX DX W/COLLJ SPEC WHEN PFRMD 05/23/2014 Colonoscopy COLONOSCOPY FLX DX W/COLLJ SPEC WHEN PFRMD 09/24/2017 Colonoscopy COLONOSCOPY FLX DX W/COLLJ SPEC WHEN PFRMD 04/16/2021 ESOPHAGOGASTRODUODENOSCOPY TRANSORAL DIAGNOSTIC 05/23/2014 EGD ESOPHAGOGASTRODUODENOSCOPY TRANSORAL DIAGNOSTIC 08/15/2014 EGD HEMORRHOIDECTOMY INT & XTRNL 2/> COLUMN/FAHEEM 10/01/2017 left posterior PAST SURGICAL HISTORY OF 2008 Pain injections lumbar PAST SURGICAL HISTORY OF 08/03/2022 colostomy PAST SURGICAL HISTORY OF Right 12/2022 right popliteal to tibioperoneal trunk bypass RT/LT HEART CATHETERS 08/09/2020 [facility] FAMILY HISTORY Problem Relation Age of Onset Breast Cancer Mother Diabetes Father Heart Father other (Raynauds) Daughter other (Raynauds) Son Diabetes Maternal Grandfather Social History Tobacco Use Smoking status: Former Packs/day: 1.00 Years: 39.00 Additional pack years: 0.00 Total pack years: 39.00 Types: Cigarettes Start date: 02/11/1981 Quit date: 04/24/2023 Years since quittin.4 Smokeless tobacco: Never Vaping Use Vaping Use: Never used Substance Use Topics Alcohol use: Yes Comment: 3-4 drinks per day 5 days per week; 2 drinks in August Drug use: No Reviewed current medications, allergies, past medical history, surgical history, family history and social history today. REVIEW OF SYSTEMS All other reviewed and negative other than HPI. HEALTH MAINTENANCE: Reviewed health maintenance issues today and recommended the following in detail. BP Controlled (<130/80) Never done VITALS: BP 130/60 Pulse 70 Ht 185.4 cm (6' 0.99) Wt 91.2 kg (201 lb) SpO2 96% BMI 26.53 kg/m Last 4 Encounter Wt Readings: Date: Wt: 08/31/2023 90.3 kg (199 lb) 08/31/2023 89.8 kg (198 lb) 08/27/2023 91.2 kg (201 lb) 08/17/2023 94.1 kg (207 lb 8 oz) PHYSICAL EXAMINATION: General appearance: Well appearing, alert, in no acute distress, well-hydrated, well nourished. Skin: much less pallor. Head: Normocephalic, no masses, lesions, tenderness or abnormalities Lungs: Lungs clear to auscultation. No wheezing, rhonchi, rales Heart: RRR without murmur, gallop, or rubs. No ectopy Abdomen: Normal abdominal exam, Abdomen soft, non-tender. Bowel sounds normal. No masses, organomegaly Extremities: less edema. No redness. ASSESSMENT/PLAN: 1. Gastrointestinal hemorrhage, unspecified gastrointestinal hemorrhage type - ICD9: 578.9, ICD10: K92.2 (primary diagnosis) - call if any issues. Hematology is following blood counts closely. Follow with gi as well. - CONSULT TO GASTROENTEROLOGY 2. PAD (peripheral artery disease) (HCC) - ICD9: 443.9, ICD10: I73.9 Follow back up with vascular. - CONSULT TO VASCULAR SURGERY 3. Bypass graft stenosis, subsequent encounter - ICD9: V58.89, 996.72, ICD10: T82.858D - CONSULT TO VASCULAR SURGERY 4. Anemia, unspecified type - ICD9: 285.9, ICD10: D64.9 - much better. 5. Polycythemia, secondary - ICD9: 289.0, ICD10: D75.1 Not an issue with current labs. 6. Hyperglycemia - ICD9: 790.29, ICD10: R73.9 - has been stable. Linda Parish MD RTO in three months. documented in this encounter [facility] 09-23-2023 Telephone encounter Note Iron causes black stools. They may be very sticky as well. You are also being worked up by GI for loss of blood. A capsule camera has been ordered. Please continue to follow with GI. Incidentally, not sure if you have been taking any Pepto-Bismol but it too causes black tarry stools. [facility] 09-23-2023 Miscellaneous Notes Iron causes black stools. They may be very sticky as well. You are also being worked up by GI for loss of blood. A capsule camera has been ordered. Please continue to follow with GI. Incidentally, not sure if you have been taking any Pepto-Bismol but it too causes black tarry stools. Hem/Oc follows for anemia. Scheduled for iron infusion tomorrow. Also had recent hospitalization for the same. documented in this encounter [facility] 09-23-2023 Telephone encounter Note Hem/Oc follows for anemia. Scheduled for iron infusion tomorrow. Also had recent hospitalization for the same. [facility] 09-14-2023 Telephone encounter Note Pt noted on [facility] 1st time treatment report. Pt has a non-oncology regimen. No social work follow up indicated. ROSIBEL Garcia-Samuel [facility] 09-14-2023 Miscellaneous Notes Pt noted on [facility] 1st time treatment report. Pt has a non-oncology regimen. No social work follow up indicated. ROSIBEL Garcia-S documented in this encounter [facility] 09-14-2023 Telephone encounter Note Spoke to patient who needs rx resent to local pharmacy Talia Stoner MA [facility] 09-14-2023 Miscellaneous Notes Spoke to patient who needs rx resent to local pharmacy Talia Stoner MA documented in this encounter [facility] 09-10-2023 Telephone encounter Note Iron infusions prior to 09/20 cancelled. Neelam Rodriguez [facility] 09-10-2023 Miscellaneous Notes Iron infusions prior to 09/20 cancelled. Neelam Rodriguez Patient was just D/C from hospital 09/07/2023. While inpatient, he had 4 doses of ferric gluconate. Per , patient's left arm was infiltrated from gluconate infusion and is discolored and sore still. Patient made aware that since he received infusions while inpatient we will hold further infusions until he has his folllow up appt. with Dr. Montalvo 09/21/2023. documented in this encounter [facility] 09-10-2023 Telephone encounter Note Patient was just D/C from hospital 09/07/2023. While inpatient, he had 4 doses of ferric gluconate. Per , patient's left arm was infiltrated from gluconate infusion and is discolored and sore still. Patient made aware that since he received infusions while inpatient we will hold further infusions until he has his folllow up appt. with Dr. Montalvo 09/21/2023. [facility] 09-09-2023 Telephone encounter Note DISCHARGE CALL BACK Today's date: September 09, 2023 Notified of Pt discharge by: Kobi Report Patient discharged on 09/07/2023 from [facility] [place] to Home Primary Cancer Diagnosis: Anemia Admitting Diagnosis: PRINCIPAL DIAGNOSIS: Blood Loss Anemia Discharge Summary/SBAR reviewed: Yes Handoff Discussed with Transitional Land Use Planner: N/A Psychosocial Risk Factors: None If patient discharged to SNF/Rehab Facility, phone call completed to reinforce discharge instructions and follow up: N/A Call Disposition: Patient is not an active oncology/chemotherapy patient. Patient is schedule for iron sucrose tomorrow and next Wednesday. OV with Dr. Montalvo on 09/21/23.. Diana Oviedo RN [facility] 09-09-2023 Miscellaneous Notes DISCHARGE CALL BACK Today's date: September 09, 2023 Notified of Pt discharge by: Kobi Report Patient discharged on 09/07/2023 from [facility] [place] to Home Primary Cancer Diagnosis: Anemia Admitting Diagnosis: PRINCIPAL DIAGNOSIS: Blood Loss Anemia Discharge Summary/SBAR reviewed: Yes Handoff Discussed with Transitional Land Use Planner: N/A Psychosocial Risk Factors: None If patient discharged to SNF/Rehab Facility, phone call completed to reinforce discharge instructions and follow up: N/A Call Disposition: Patient is not an active oncology/chemotherapy patient. Patient is schedule for iron sucrose tomorrow and next Wednesday. OV with Dr. Montalvo on 09/21/23.. Diana Oviedo RN documented in this encounter [facility] 09-02-2023 History of Present illness Narrative Images from the original note were not included. documented in this encounter [facility] 09-02-2023 History of Present illness Narrative Referring MD: Inpatient on Dx: GIB, fe def anemia Date of Small Bowel Capsule Endoscopy: 09/02/2023 Small bowel capsule endoscopy ingested at 10:40am. [id number] Lot [id number] Exp 04/21/24 Instructions completed and given to nurse, Salud, on floor. Return of Equipment: Desk G100 in am on 09/02. Brunilda Smith RN Remove all capsule endoscopy equipment at?0600 on 09-03-2023. Place equipment in provided [facility] bag. Place bag at nursing station for GI pickup. ? Suggested plan: NPO for 2 hours post ingestion/placement then advance to clear liquid diet if team agrees, (12:40pm) then advance to regular diet 4 hours post capsule endoscopy, if team agrees. Avoid po medication for 2 hours post capsule ingestion. No MRI?until capsule is noted to have been evacuated or evacuation confirmed by [facility]. ?Please include this information in [facility] discharge planning Encourage ambulation if compatible with patient s plan care No carafate, antacids or Barium for 4 hours post ingestion/placement. Call GI for symptoms of obstruction Do not place patient in the same room with another patient undergoing capsule endoscopy If patient passes a capsule in stool, it is not necessary to retrieve. Flush capsule down toilet. documented in this encounter [facility] 09-01-2023 Telephone encounter Note Telephoned patient with small bowel capsule endoscopy procedure appointment reminder/instructions. Patient states he is in the ED and is going to be admitted. Brunilda Smith RN [facility] 09-01-2023 Miscellaneous Notes Telephoned patient with small bowel capsule endoscopy procedure appointment reminder/instructions. Patient states he is in the ED and is going to be admitted. Brunilda Smith RN documented in this encounter [facility] 09-01-2023 Telephone encounter Note I reviewed the patient on the 1st-time treatment report. The patient does not have a cancer diagnosis or a chemo/radiation regimen. No further Financial Navigator intervention is needed at this time. [facility] 09-01-2023 Miscellaneous Notes I reviewed the patient on the 1st-time treatment report. The patient does not have a cancer diagnosis or a chemo/radiation regimen. No further Financial Navigator intervention is needed at this time. documented in this encounter [facility] 08-31-2023 Telephone encounter Note Pt and his returned the call. Pt has two appts this afternoon at 1215 and 115 pm. Pt wondering if he can go to the ER after that. Spoke with Rebecca who checked with Dr. Parish and pt okay to go after these appts but needs to go as soon as his appts are over. Pt at this time feels he will go to a [facility]. Pt verbalizes understanding and if he decides to go to [facility], he will return the call to us so we can fax the lab results. [facility] 08-31-2023 Miscellaneous Notes Pt and his returned the call. Pt has two appts this afternoon at 1215 and 115 pm. Pt wondering if he can go to the ER after that. Spoke with Rebecca who checked with Dr. Parish and pt okay to go after these appts but needs to go as soon as his appts are over. Pt at this time feels he will go to a [facility]. Pt verbalizes understanding and if he decides to go to [facility], he will return the call to us so we can fax the lab results. Pt notified of results and provider message. He is unsure of which hospital he will go to. He wants to talk with his first. I advised that if he went ouside of [facility], to please call back and let us know so we can fax over lab results. He is agreeable. Rebecca Salgado MA August 31, 2023 10:48 AM His hb has dropped from 8.4 to 7.0 again. Since feeling worse, back to Er of choice. Send labs to them documented in this encounter [facility] 08-31-2023 Telephone encounter Note Pt notified of results and provider message. He is unsure of which hospital he will go to. He wants to talk with his first. I advised that if he went [facility]uside of [facility], to please call back and let us know so we can fax over lab results. He is agreeable. Rebecca Salgado MA August 31, 2023 10:48 AM [facility] 08-31-2023 Telephone encounter Note His hb has dropped from 8.4 to 7.0 again. Since feeling worse, back to Er of choice. Send labs to them [facility] 08-31-2023 History of Present illness Narrative Patient presents with: Hospital F/U HPI: Patient presents today for office visit for hospital follow up/TCM HOSPITAL/ER FOLLOW UP: Reason for visit: Hemoglobin of 5.0 Which facility: [facility] from 08/16-08/21 then to [facility] from 08/21-08/24 Diagnosis: GI bleed Testing done: Labs, upper GI Treatment given: Blood transfusion and IV iron. Xarelto d/c. Plavix started with daily 81 mg asa. Oral iron supp. Current symptoms: Feeling terrible and weak No chest pain Has chronic shortness of breath. Has dark stools but is on iron. Dicussed he may need iv infusions for some time. No abd pain. They are going to repeat his capsule endoscopy. No changes in the bowels. Emotionally is wiped. Is on prozac for his raynaud's. Having trouble shutting things off. Discussed increasing it. Followed up with Hematology on 08/27/23. Hemoglobin 8.4 08/27/23 Sees vascular today. Hematology later this week. Note was copied and pasted, without alteration from hospital discharge summary for review: REASON FOR HOSPITALIZATION: Acute on chronic anemia PRINCIPAL DIAGNOSIS: Acute on chronic anemia, severe iron deficiency anemia, peripheral artery disease SECONDARY DIAGNOSIS: Principal Problem (Resolved): GI bleed (POA: Yes) Active Problems: Acute blood loss anemia (POA: Yes) Iron deficiency anemia (POA: Unknown) Bypass graft stenosis (HCC) (POA: Unknown) Severe anemia (POA: Unknown) Thrombocytosis (POA: Unknown) Resolved Problems: Acute on chronic anemia (POA: Unknown) HOSPITAL COURSE: This is a 62-year-old male, with PMHx of polycythemia, peripheral artery disease complicated by acute ischemia requiring bypass graft in December 2022 with subsequent graft requiring revision and recanalization, recurrent anemia attributed to GI bleeding with unclear source, hypertension, hyperlipidemia, perforated diverticulitis status post colectomy and diverting colostomy, alcohol use disorder, chronic neuropathy, depression, anxiety, psoriasis, chronic migraine, who presented after being transferred from an outside hospital for evaluation of acute on chronic anemia concerning for GI bleed. The patient was found to have a hemoglobin of 4.7. Patient received supportive management and blood transfusions. He underwent push enteroscopy with GI, which did not show any source of bleeding. Patient was evaluated by hematology as well, and was started on IV iron in the setting of severe iron deficiency anemia and suspected malabsorption of iron related to colectomy. The patient did not have active bleeding while Eliquis was resumed in the hospital.A duplex vascular ultrasound of the patient's right lower extremity vascular graft was done, and vascular surgery recommended that the patient will require blood thinner therapy, however, Eliquis could be discontinued and clopidogrel could be started, while continuing aspirin. The patient is planned to follow-up with gastroenterology who are planning capsule endoscopy, while on blood thinners to further look for source of GI bleeding. He will also follow-up with his car carder to to continue IV infusion therapy, and with vascular surgery. OPERATIONS/PROCEDURE DURING THIS HOSPITALIZATION: * No surgery found * Push enteroscopy CONSULTS DURING HOSPITALIZATION: Treatment Team: Attending Provider: Richard Walls Consulting: Rolando Harmon MD Consulting: Christiana Arrington MD MEDICATIONS: Current Outpatient Medications Medication Sig HYDROcodone-acetaminophen (NORCO) 5-325 mg per tablet Take 1 tablet by mouth two times a day. iron polysaccharide complex (FERREX-150) 150 mg iron capsule Take by mouth. ixekizumab (TALTZ AUTOINJECTOR) 80 mg/mL pen ondansetron orally disintegrating (ZOFRAN ODT) 4 mg disintegrating tablet tiZANidine (ZANAFLEX) 4 mg tablet Take 4 mg by mouth daily at bedtime. pantoprazole DR (PROTONIX) 40 mg tablet Take 1 tablet by mouth daily before breakfast. Take on empty stomach, 1/2 hr before meal. atorvastatin (LIPITOR) 40 mg tablet Take 1 tablet by mouth daily at bedtime. folic acid 1 mg tablet Take 1 tablet by mouth once daily. senna (SENOKOT) 8.6 mg tab Take 1 tablet by mouth two times a day as needed for constipation. therapeutic multivitamin-minerals (THERA-M PLUS) 9 mg iron-400 mcg tablet Take 1 tablet by mouth once daily. thiamine (VITAMIN B1) 100 mg tablet Take 1 tablet by mouth once daily. clopidogrel (PLAVIX) 75 mg tablet Take 1 tablet by mouth once daily. aspirin 81 mg chewable tablet Take 1 tablet by mouth once daily. amitriptyline (ELAVIL) 25 mg tablet Take 2 tablets by mouth daily at bedtime. (Patient taking differently: Take 25 mg by mouth daily at bedtime.) polyethylene glycol 3350 17 gram packet Take 1 Packet by mouth once daily as needed for constipation. Dissolve dose in 4 - 8 ounces of liquid and take as directed. gabapentin (NEURONTIN) 300 mg capsule Take 1 capsule by mouth every 12 hours. FLUoxetine (PROZAC) 20 mg capsule Take 1 capsule by mouth once daily. TREMFYA 100 mg/mL AutoInjector every 3 months. fremanezumab-vfrm (AJOVY AUTOINJECTOR) 225 mg/1.5 mL auto-injector Ajovy 225 mg/1.5 mL subcutaneous auto-injector Inject 1.5 mL subcutaneously once a month rimegepant (NURTEC ODT) 75 mg disintegrating tablet Nurtec ODT 75 mg disintegrating tablet Take 1 tab under tongue at onset of migraine. Max 1 in 24 hours. acetaminophen (TYLENOL) 325 mg tablet Take 650 mg by mouth every 6 hours as needed. No current facility-administered medications for this visit. ALLERGIES: ALLERGIES Allergen Reactions Verapamil Rash PAST MEDICAL HISTORY Diagnosis Date Acute diverticulitis Aortic insufficiency Bursitis of elbow left Coronary artery disease mild nonobstructive Diverticulitis Migraines PAD (peripheral artery disease) ([facility]) Palpitations Pinched nerve 11/04/2020 low back Psoriasis Raynaud disease SVT (supraventricular tachycardia) ([facility]) Tobacco abuse PAST SURGICAL HISTORY Procedure Laterality Date COLON SURGERY HX COLONOSCOPY FLX DX W/COLLJ SPEC WHEN PFRMD 05/23/2014 Colonoscopy COLONOSCOPY FLX DX W/COLLJ SPEC WHEN PFRMD 09/24/2017 Colonoscopy COLONOSCOPY FLX DX W/COLLJ SPEC WHEN PFRMD 04/16/2021 ESOPHAGOGASTRODUODENOSCOPY TRANSORAL DIAGNOSTIC 05/23/2014 EGD ESOPHAGOGASTRODUODENOSCOPY TRANSORAL DIAGNOSTIC 08/15/2014 EGD HEMORRHOIDECTOMY INT & XTRNL 2/> COLUMN/FAHEEM 10/01/2017 left posterior PAST SURGICAL HISTORY OF 2007 Pain injections lumbar PAST SURGICAL HISTORY OF 08/03/2022 colostomy PAST SURGICAL HISTORY OF Right 12/2022 right popliteal to tibioperoneal trunk bypass RT/LT HEART CATHETERS 08/09/2020 [facility] FAMILY HISTORY Problem Relation Age of Onset Breast Cancer Mother Diabetes Father Heart Father other (Raynauds) Daughter other (Raynauds) Son Diabetes Maternal Grandfather Social History Tobacco Use Smoking status: Former Packs/day: 1.00 Years: 39.00 Additional pack years: 0.00 Total pack years: 39.00 Types: Cigarettes Start date: 02/11/1981 Quit date: 04/24/2023 Years since quittin.3 Smokeless tobacco: Never Vaping Use Vaping Use: Never used Substance Use Topics Alcohol use: Yes Comment: 3-4 drinks per day 5 days per week Drug use: No Reviewed current medications, allergies, past medical history, surgical history, family history and social history today. REVIEW OF SYSTEMS All other reviewed and negative other than HPI. HEALTH MAINTENANCE: Reviewed health maintenance issues today and recommended the following in detail. BP Controlled (<130/80) Never done Behavioral Health Screening Never done VITALS: BP 130/62 Pulse 70 Ht 185.4 cm (6' 1) Wt 89.8 kg (198 lb) SpO2 99% BMI 26.12 kg/m Last 4 Encounter Wt Readings: Date: Wt: 08/27/2023 91.2 kg (201 lb) 08/17/2023 94.1 kg (207 lb 8 oz) 08/17/2023 91.2 kg (201 lb) 07/16/2023 88.5 kg (195 lb) PHYSICAL EXAMINATION: General appearance: Well appearing, alert, in no acute distress, well-hydrated, well nourished. Skin: is pale. Head: Normocephalic, no masses, lesions, tenderness or abnormalities Lungs: Lungs clear to auscultation. No wheezing, rhonchi, rales Heart: RRR without murmur, gallop, or rubs. No ectopy Abdomen: Normal abdominal exam, Abdomen soft, non-tender. Bowel sounds normal. No masses, organomegaly ASSESSMENT/PLAN: 1. Gastrointestinal hemorrhage, unspecified gastrointestinal hemorrhage type - ICD9: 578.9, ICD10: K92.2 (primary diagnosis) - Red flags for re-assessment reviewed with patient in detail. - follow up with gi, vascular, and hematology. Recheck labs today since feels badly. - COMPLETE BLOOD COUNT AND DIFFERENTIAL - BASIC METABOLIC PANEL 2. PAD (peripheral artery disease) (HCC) - ICD9: 443.9, ICD10: I73.9 - seeing vascular. 3. Bypass graft stenosis, subsequent encounter - ICD9: V58.89, 996.72, ICD10: T82.858D - now on asa and plavix. 4. Primary hypertension - ICD9: 401.9, ICD10: I10 - Controlled - Continue current medications 5. Anemia, unspecified type - ICD9: 285.9, ICD10: D64.9 - follow labs. - COMPLETE BLOOD COUNT AND DIFFERENTIAL - BASIC METABOLIC PANEL 6. Anxiety - ICD9: 300.00, ICD10: F41.9 - increase prozac to 40 mg a day. Recheck dose change in one month. 7. Raynaud's phenomenon without gangrene - ICD9: 443.0, ICD10: I73.00 -as above. - FLUOXETINE 40 MG CAPSULE 8. Anxiety with depression - ICD9: 300.4, ICD10: F41.8 - FLUOXETINE 40 MG CAPSULE Linda Parish MD documented in this encounter [facility] 08-30-2023 Telephone encounter Note Scheduled 08/31/23 to see PCP. [facility] 08-30-2023 Miscellaneous Notes Scheduled 08/31/23 to see PCP. Mailbox full unable to leave message. Please have patient speak with triage nurse. If significant, to ER Patient calling was told by [place] PCP to let him know he is having tingling in right foot, great toe feeling numb. He said do not think this is new may have had it before. He said has edema in his legs since last fall, leg surgery. He can move his toes, normal color. He said he tries to elevate his legs when he can. He has appt today with [employer] Glass [employer]. documented in this encounter [facility] 08-30-2023 Telephone encounter Note Patient has been scheduled out for the remainder of the appointments Mena Quinn Pss [facility] 08-30-2023 Miscellaneous Notes Patient has been scheduled out for the remainder of the appointments Mena Quinn Pss Images from the original note were not included. PER 08/26 Note Patient has been scheduled to start Iron 09/03/23, needs weekly x4 scheduled. Denisa Connolly, RN documented in this encounter [facility] 08-30-2023 Telephone encounter Note Images from the original note were not included. PER 08/26 Note Patient has been scheduled to start Iron 09/03/23, needs weekly x4 scheduled. Denisa Connolly, RN [facility] Work Phone: 08-27-2023 Telephone encounter Note Mailbox full unable to leave message. Please have patient speak with triage nurse. [facility] 08-27-2023 Telephone encounter Note Record ID: [id number] Patient name: Cody Maldonado Date: August 27, 2023: Administered by: DOMINIC Protocol: -> Great! Now we are in a secure chat environment. Protecting your health information is important to us. Ok, let's get started. Please verify your name and date of . Please click on the button with your first name. -> Cody Got it. On to the next question... Select the button with your last name. -> Joel Got it, thank you. Please enter your date of in MM/DD/YYYY format:(e.g., 05/21/1969 for May 21, 1969) -> 1960 Thank you for verifying your information. I'd like to ask you a few questions about how your recovery is going. Since leaving the hospital, do you have any new or worsening symptoms? -> Yes And how have these symptoms changed since you first noticed them? -> Worse [facility] 08-27-2023 Telephone encounter Note Record ID: [id number] Patient name: Cody Maldonado Date: August 27, 2023: Administered by: DOMINIC Protocol: -> Great! Now we are in a secure chat environment. Protecting your health information is important to us. Ok, let's get started. Please verify your name and date of . Please click on the button with your first name. -> Cody Got it. On to the next question... Select the button with your last name. -> Joel Got it, thank you. Please enter your date of in MM/DD/YYYY format:(e.g., 05/21/1969 for May 21, 1969) -> 1960 Thank you for verifying your information. I'd like to ask you a few questions about how your recovery is going. Since leaving the hospital, do you have any new or worsening symptoms? -> Yes And how have these symptoms changed since you first noticed them? -> Worse [facility] 08-27-2023 Miscellaneous Notes Record ID: [id number] Patient name: Cody Maldonado Date: August 27, 2023 - :05 Administered by: DOMINIC Protocol: -> Great! Now we are in a secure chat environment. Protecting your health information is important to us. Ok, let's get started. Please verify your name and date of . Please click on the button with your first name. -> Cody Got it. On to the next question... Select the button with your last name. -> Joel Got it, thank you. Please enter your date of in MM/DD/YYYY format:(e.g., 05/21/1969 for May 21, 1969) -> 1960 Thank you for verifying your information. I'd like to ask you a few questions about how your recovery is going. Since leaving the hospital, do you have any new or worsening symptoms? -> Yes And how have these symptoms changed since you first noticed them? -> Worse documented in this encounter [facility] 08-27-2023 History of Present illness Narrative (Elements copied from my note dated May 28, 2023, have been reviewed and updated where appropriate, and all reflect current assessment and medical decision making from today's encounter, August 27, 2023) HISTORY OF PRESENT ILLNESS: Choco Maldonado is a 62 year old male history erythrocytosis, appeared secondary. JAK2 negative Recent divertiuclitis, colectomy PVD In [place] December 2022, had arterial clot, needed a bypass graft. Came back to [place], found to have clot in graft. Now on Xarelto after recanalized Now quite anemic, apparent GI bleed as blood found in stool, but negative scopes CLINICAL IMPRESSION: Secondary erythrocytosis, anemic right now. RECOMMENDATION/PLAN: 1. plan iron weekly x 4 Written and verbal health teaching given to patient, patient verbalizes understanding and agrees with treatment plan. PAST MEDICAL HISTORY Diagnosis Date Acute diverticulitis Aortic insufficiency Bursitis of elbow left Coronary artery disease mild nonobstructive Diverticulitis Migraines PAD (peripheral artery disease) ([facility]) Palpitations Pinched nerve 11/04/2020 low back Psoriasis Raynaud disease SVT (supraventricular tachycardia) ([facility]) Tobacco abuse PAST SURGICAL HISTORY Procedure Laterality Date COLON SURGERY HX COLONOSCOPY FLX DX W/COLLJ SPEC WHEN PFRMD 05/23/2014 Colonoscopy COLONOSCOPY FLX DX W/COLLJ SPEC WHEN PFRMD 09/24/2017 Colonoscopy COLONOSCOPY FLX DX W/COLLJ SPEC WHEN PFRMD 04/16/2021 ESOPHAGOGASTRODUODENOSCOPY TRANSORAL DIAGNOSTIC 05/23/2014 EGD ESOPHAGOGASTRODUODENOSCOPY TRANSORAL DIAGNOSTIC 08/15/2014 EGD HEMORRHOIDECTOMY INT & XTRNL 2/> COLUMN/FAHEEM 10/01/2017 left posterior PAST SURGICAL HISTORY OF 2007 Pain injections lumbar PAST SURGICAL HISTORY OF 08/03/2022 colostomy PAST SURGICAL HISTORY OF Right 12/2022 right popliteal to tibioperoneal trunk bypass RT/LT [facility] 08/09/2020 [facility] FAMILY HISTORY Problem Relation Age of Onset Breast Cancer Mother Diabetes Father Heart Father other (Raynauds) Daughter other (Raynauds) Son Diabetes Maternal Grandfather Social History Tobacco Use Smoking status: Former Packs/day: 1.00 Years: 39.00 Additional pack years: 0.00 Total pack years: 39.00 Types: Cigarettes Start date: 02/11/1981 Quit date: 04/24/2023 Years since quittin.3 Smokeless tobacco: Never Vaping Use Vaping Use: Never used Substance Use Topics Alcohol use: Yes Comment: 3-4 drinks per day 5 days per week Drug use: No ALLERGIES: ALLERGIES Allergen Reactions Verapamil Rash CURRENT OUTPATIENT MEDICATIONS: pantoprazole DR (PROTONIX) 40 mg tablet Take 1 tablet by mouth daily before breakfast. Take on empty stomach, 1/2 hr before meal. atorvastatin (LIPITOR) 40 mg tablet Take 1 tablet by mouth daily at bedtime. folic acid 1 mg tablet Take 1 tablet by mouth once daily. senna (SENOKOT) 8.6 mg tab Take 1 tablet by mouth two times a day as needed for constipation. therapeutic multivitamin-minerals (THERA-M PLUS) 9 mg iron-400 mcg tablet Take 1 tablet by mouth once daily. thiamine (VITAMIN B1) 100 mg tablet Take 1 tablet by mouth once daily. clopidogrel (PLAVIX) 75 mg tablet Take 1 tablet by mouth once daily. aspirin 81 mg chewable tablet Take 1 tablet by mouth once daily. amitriptyline (ELAVIL) 25 mg tablet Take 2 tablets by mouth daily at bedtime. (Patient taking differently: Take 25 mg by mouth daily at bedtime.) polyethylene glycol 3350 17 gram packet Take 1 Packet by mouth once daily as needed for constipation. Dissolve dose in 4 - 8 ounces of liquid and take as directed. gabapentin (NEURONTIN) 300 mg capsule Take 1 capsule by mouth every 12 hours. FLUoxetine (PROZAC) 20 mg capsule Take 1 capsule by mouth once daily. TREMFYA 100 mg/mL AutoInjector every 3 months. fremanezumab-vfrm (AJOVY AUTOINJECTOR) 225 mg/1.5 mL auto-injector Ajovy 225 mg/1.5 mL subcutaneous auto-injector Inject 1.5 mL subcutaneously once a month rimegepant (NURTEC ODT) 75 mg disintegrating tablet Nurtec ODT 75 mg disintegrating tablet Take 1 tab under tongue at onset of migraine. Max 1 in 24 hours. acetaminophen (TYLENOL) 325 mg tablet Take 650 mg by mouth every 6 hours as needed. REVIEW OF SYSTEMS: GENERAL: No fever, night sweats, weight loss or malaise. All other reviewed and negative other than HPI. PHYSICAL EXAMINATION: VITAL SIGNS: BP 139/71 Pulse 68 Temp (Src) 97.6 (Temporal) Wt 201 lb (91.2kg) SpO2 98% GENERAL APPEARANCE: Well appearing, in no acute distress, alert and oriented x3, well-hydrated, well nourished. I spent a total of 30 minutes on the date of the service which included preparing to see the patient, [id number] patient care, completing clinical documentation, obtaining and/or reviewing separately obtained history, counseling and educating the patient/family/caregiver, ordering medications, tests, or procedures, independently interpreting results (not separately reported), and communicating results to the patient/family/caregiver. Electronically Signed: Meir Montalvo MD August 27, 2023 documented in this encounter [facility] 08-27-2023 Telephone encounter Note If significant, to ER [facility] 08-27-2023 Telephone encounter Note Patient calling was told [place] call PCP to let him know he is having tingling in right foot, great toe feeling numb. He said do not think this is new may have had it before. He said has edema in his legs since last fall, leg surgery. He can move his toes, normal color. He said he tries to elevate his legs when he can. He has appt today with Plate Glass Grinder. [facility] 08-27-2023 Telephone encounter Note Call Back from message in the In-Basket: Patient states his right foot and big toe might be feeling a bit more numb this morning. Patient states he can bare weight on his right foot, stating, It's not that bad. But he got a text this morning and answered a question regarding this symptom, and therefore went into In-Basket pool. Patient advised to call his Doctor right away, and if any symptoms worsen, to go to ED. Patient understands his directions and states he will do. No further problems or symptoms at this time. PD Bassem RN [facility] 08-27-2023 Miscellaneous Notes Call Back from message in the In-Basket: Patient states his right foot and big toe might be feeling a bit more numb this morning. Patient states he can bare weight on his right foot, stating, It's not that bad. But he got a text this morning and answered a question regarding this symptom, and therefore went into In-Basket pool. Patient advised to call his Doctor right away, and if any symptoms worsen, to go to ED. Patient understands his directions and states he will do. No further problems or symptoms at this time. PD Bassem RN documented in this encounter [facility] 08-26-2023 Telephone encounter Note Has hospital follow units[ 08/31/23 Talia Stoner MA [facility] 08-26-2023 Miscellaneous Notes Has hospital follow units[ 08/31/23 Talia Stoner MA documented in this encounter [facility] 08-26-2023 History of Present illness Narrative Detailed message left for pt. Rebecca Salgado MA Continue current meds. Aware of below interaction. Has tolerated. TRANSITION CARE MANAGEMENT (TCM) PHARMACY CONTACT Provider Action/FYI: TCM Medication Reconciliation partially completed for patient. See medication list table below for details. Medications discussed per patient preference outlined in bold in table below. Dr Parish, Potential for drug-drug interaction with Fluoxetine and Plavix. Flouxetine - [id number] Inhibitors (Moderate) may decrease serum concentrations of the active metabolite of Clopidogrel. Denise comp: Patient Management: Monitor patients closely for evidence of a diminished response to clopidogrel. Clinicians should carefully consider the need for concurrent use of a moderate [id number] inhibitor in patients receiving clopidogrel. Initial contact with patient post discharge, spoke to patient, and verified that any applicable caregiver is active in patient's medical care. Patient identified by name and . Summary: -Pt discharged from [facility] on 08/25/23. -Medication review done: Partial medication review completed - per patient preference Patient Concerns: TCM Medication Reconciliation partially completed for patient. See medication list table below for details. Medications discussed per patient preference outlined in bold in table below. History of Present Illness: The following content has been copied and pasted from patient's discharge summary. If discharge summary unavailable, After Visit Summary or last pertinent inpatient notes are copied and pasted. TRANSITIONS OF CARE CRITICAL ISSUES: JHA MEDICATION CHANGES:- -Rivaroxaban discontinued. -Clopidogrel started. Aspirin continued. -Plan to get 6 doses of IV iron outpatient -Oral iron supplement started LAB MONITORING NEEDED: Not applicable IMAGING FOLLOW-UP: Not applicable LABS AND PROCEDURES PENDING AT DISCHARGE: No No pending results. FOLLOW UP: -PCP -Plate Glass Grinder-for IV infusions and further follow-up -Engineering Design Supervisor-for capsule endoscopy -Vascular surgeon HOSPITAL COURSE: This is a 62-year-old male, with PMHx of polycythemia, peripheral artery disease complicated by acute ischemia requiring bypass graft in December 2022 with subsequent graft requiring revision and recanalization, recurrent anemia attributed to GI bleeding with unclear source, hypertension, hyperlipidemia, perforated diverticulitis status post colectomy and diverting colostomy, alcohol use disorder, chronic neuropathy, depression, anxiety, psoriasis, chronic migraine, who presented after being transferred from an outside hospital for evaluation of acute on chronic anemia concerning for GI bleed. The patient was found to have a hemoglobin of 4.7. Patient received supportive management and blood transfusions. He underwent push enteroscopy with GI, which did not show any source of bleeding. Patient was evaluated by hematology as well, and was started on IV iron in the setting of severe iron deficiency anemia and suspected malabsorption of iron related to colectomy. The patient did not have active bleeding while Eliquis was resumed in the hospital.A duplex vascular ultrasound of the patient's right lower extremity vascular graft was done, and vascular surgery recommended that the patient will require blood thinner therapy, however, Eliquis could be discontinued and clopidogrel could be started, while continuing aspirin. The patient is planned to follow-up with gastroenterology who are planning capsule endoscopy, while on blood thinners to further look for source of GI bleeding. He will also follow-up with his car carder to to continue IV infusion therapy, and with vascular surgery. Medication Reconciliation: Legend: Stopped, New, Changed, Added to list Medication List Medication Directions Comments Action/Plan acetaminophen (TYLENOL) 325 mg tablet Take 650 mg by mouth every 6 hours as needed. amitriptyline (ELAVIL) 25 mg tablet Take 2 tablets by mouth daily at bedtime. Patient taking differently: Take 25 mg by mouth daily at bedtime. aspirin 81 mg chewable tablet Take 1 tablet by mouth once daily. atorvastatin (LIPITOR) 40 mg tablet Take 1 tablet by mouth daily at bedtime. clopidogrel (PLAVIX) 75 mg tablet Take 1 tablet by mouth once daily. [facility] Taking as prescribed without any issues FLUoxetine (PROZAC) 20 mg capsule Take 1 capsule by mouth once daily. Taking as prescribed without any issues Fwding to PCP to review potential drug-drug interaction with plavix folic acid 1 mg tablet Take 1 tablet by mouth once daily. [facility] Taking as prescribed without any issues fremanezumab-vfrm (AJOVY AUTOINJECTOR) 225 mg/1.5 mL auto-injector Ajovy 225 mg/1.5 mL subcutaneous auto-injector Inject 1.5 mL subcutaneously once a month gabapentin (NEURONTIN) 300 mg capsule Take 1 capsule by mouth every 12 hours. Taking as prescribed without any issues pantoprazole DR (PROTONIX) 40 mg tablet Take 1 tablet by mouth daily before breakfast. Take on empty stomach, 1/2 hr before meal. Taking as prescribed without any issues Pended medication for provider review - refer to refill encounter. polyethylene glycol 3350 17 gram packet Take 1 Packet by mouth once daily as needed for constipation. Dissolve dose in 4 - 8 ounces of liquid and take as directed. rimegepant (NURTEC ODT) 75 mg disintegrating tablet Nurtec ODT 75 mg disintegrating tablet Take 1 tab under tongue at onset of migraine. Max 1 in 24 hours. Discontinued: 08/25/2023 4:17 PM Not taking senna (SENOKOT) 8.6 mg tab Take 1 tablet by mouth two times a day as needed for constipation. [facility] Taking as prescribed without any issues therapeutic multivitamin-minerals (THERA-M PLUS) 9 mg iron-400 mcg tablet Take 1 tablet by mouth once daily. [facility] Would like to get this from [facility] Provided pt number to pharmacy for transfer of medication Pt will have [facility] transfer this and all other meds that have remaining refills thiamine (VITAMIN B1) 100 mg tablet Take 1 tablet by mouth once daily. C[facility] Taking as prescribed without any issues TREMFYA 100 mg/mL AutoInjector every 3 months. Preferred pharmacy: [facility] [id number] [facility] [id number] [address] [facility] [employer] [address] [place] [address] [address] [phone] [facility] [address] Estimated Creatinine Clearance: 85.1 mL/min (based on SCr of 1.03 mg/dL). Estimated Glomerular Filtration Rate (mL/min/1.73m ) Date Value 08/25/2023 83 eGFR- (no units) Date Value 03/21/2021 >60 Additional follow up: Next 5 Appointments Date and Time Provider Department Dept Phone 08/31/2023 12:[address] [facility] [phone] 08/31/2023 1:30 PM [facility] [phone] 09/01/2023 12:15 PM Christiana Arrington [facility] [phone] 09/09/2023 11:30 AM [facility] [phone] 10/05/2023 2:20 PM Linda Parish [facility] [phone] Interventions Made: Patient education/Medication counseling and Medication access issue resolved Pharmacist Recommendations Made Potential drug interaction/side effects/adverse effects detected Care Coordination: Prescription order pended for review and approval by provider Time spent on patient: 15-30 minutes Hafsa Mace RPh August 26, 2023 9:20 AM documented in this encounter [facility] 08-26-2023 Telephone encounter Note Capsule has been authorized. Patient has been scheduled for capsule at [facility] on 09/09/23. [facility] 08-26-2023 Miscellaneous Notes Capsule has been authorized. Patient has been scheduled for capsule at [facility] on 09/09/23. Referral entered in [facility]wan for ORM team to review/process for capsule auth. Will advise when auth is received. Please arrange VCE as OP. Per notes recent Colon end of Jun OSH, then even capsule 07/01. Push negative 08/22. Thank you, Jaymie documented in this encounter [facility] 08-26-2023 Telephone encounter Note Spoke with patient and scheduled for tomorrow. Neelam Rodriguez [facility] 08-26-2023 Miscellaneous Notes Spoke with patient and scheduled for tomorrow. Neelam Rodriguez PSS: please schedule CBC/Iron Studies and 1st available F/U with Dr. Montalvo. Denisa Connolly, SHIRLEY Please advise. Monserrat Huang LPN Spouse called stating patient was discharged from [place] and is needing to schedule follow up. Referral under Active Requests. Please advise. documented in this encounter [facility] 08-26-2023 Telephone encounter Note PSS: please schedule CBC/Iron Studies and 1st available F/U with Dr. Montalvo. Denisa Connolly RN [facility] Work Phone: 08-26-2023 Telephone encounter Note Please advise. Monserrat Huang LPN [facility] 08-26-2023 Telephone encounter Note Spouse called stating patient was discharged from [place] and is needing to schedule follow up. Referral under Active Requests. Please advise. [facility] 08-26-[address] Parish -- Your patient was contacted for a TCM Medication Reconciliation Visit, and requested refills on the following medications. (Protonix) Please refer to the separate pharmacy patient outreach encounter for details. BOYD: 08/17/2023 NOV: 10/05/2023 Thank you, Hafsa Mace [facility] Transitional Care Management Team August 26, 2023 10:01 AM [facility] 08-26-[address] Parish -- Your patient was contacted for a TCM Medication Reconciliation Visit, and requested refills on the following medications. (Protonix) Please refer to the separate pharmacy patient outreach encounter for details. BOYD: 08/17/2023 NOV: 10/05/2023 Thank you, Hafsa Mace [facility] Transitional Care Management Team August 26, 2023 10:01 AM documented in this encounter [facility] 08-25-2023 Note [facility] 08-24-2023 Note [facility] 08-24-2023 Note [facility] 08-24-2023 Note [facility] 08-23-2023 Note [facility] 08-23-2023 Telephone encounter Note Referral entered in [facility]wan for ORM team to review/process for capsule auth. Will advise when auth is received. [facility] 08-23-2023 Telephone encounter Note Please arrange VCE as OP. Per notes recent Colon end of Jun OSH, then even capsule 07/01. Push negative 08/22. Thank you, Jaymie [facility] 08-23-2023 Note HNO ID: [id number] Author: DANIEL HARDWICK, RN Service: ? Author Type: Registered Nurse Type: Nursing Progress Note Filed: 08/23/2023 09:58 Note Text: Pt sitting up in bed sipping gingerale, no needs at this time [facility] 08-22-2023 Note [facility] 08-21-2023 Progress note Note Date/Time August 21, 2023 6:04pm [facility] Medical Records Department [address] [place] [address] Progress Note - Hospitalist 08/21/23 1800 MR#: [id number] Acct: [id number] Name: CHOCO MALDONADO Rep #:[id number] : 1960 62 From: Milton Bergeron DO PCP: Dr. Linda Parish MD Status:ADM I N Location: [place] [address] Reason for Visit Reason for Visit: Diagnoses Peripheral vascular disease, unspecified (08/18/23) Gastrointestinal hemorrhage, unspecified (08/18/23) Presence of other vascular implants and grafts (08/18/23) Subjective Subjective Patient was seen and examined today, I took him off telemetry-I do not feel there is a need for this at the present time. Patient's hemoglobin this morningwas 7.8, we are still awaiting transfer to [facility]. Objective Data Objective Data Vital Signs: Vital Signs Temp Pulse Resp BP Pulse Ox O2 Del Method 97.6 F L 61 18 136/67 H 96 Room Air 08/21/23 15:49 08/21/23 15:49 08/21/23 15:49 08/21/23 15:49 08/21/23 15:49 08/21/23 15:49 Oxygen Delivery Method Room Air Weight: 92.5 kg Body Mass Index (BMI) 26.9 Intake & Output: Intake and Output for Last 24 Hours 08/19/23 08/20/23 08/21/23 23:59 23:59 23:59 Intake Total 1834.75 / 1834.75 2986 / 3486 1430 / 1430 Output Total 1885 / 2660 2575 / 2575 500 / 500 Balance -50.25 / -825.25 411 / 911 930 / 930 Lab / Micro Data 08/21/23 08:01 08/21/23 08:01 Labs: Laboratory Results - last 24 hr 08/21/23 08:01: WBC 7.8, RBC 2.99 L, Hgb 7.8 L, Hct 25.1 L, MCV 83.9, MCH 26.1 L, MCHC 31.1 L, RDW Std Deviation 52.8 H, RDW Coeff of Eze 17.2 H, Plt Count 428,MPV 9.0, Immature Gran % (Auto) 0.300, Neut % (Auto) 69.2, Lymph % (Auto) 22.6, [place] % (Auto) 4.8, Eos % (Auto) 2.6, Baso % (Auto) 0.5, Absolute Neuts (auto) 5.4, Absolute Lymphs (auto) 1.76, Nucleated RBC % 0, Sodium 138, Potassium 3.7, Chloride 108 H, Carbon Dioxide 23.0, Anion Gap 7, BUN 9, Creatinine 1.09, Estim Creat Clear Calc 80.43, Est GFR (MDRD) Af Amer 88, Est GFR (MDRD) Non-Af 73, BUN/Creatinine Ratio 8.3 L, Glucose 122 H, Calcium 8.6, Total Bilirubin 0.50, AST 16, ALT 22, Alkaline Phosphatase 83, Total Protein 6.9, Albumin 3.4, Globulin 3.5, Albumin/Globulin Ratio 1.0 Micro: Microbiology 08/17/23 16:05 Stool Stool Occult Blood (VENKATA) - Final Occult Blood Positive Physical Exam Const alert, oriented x3, no apparent distress, average body habitus and healthy appearing General Appearance: cooperative, well kempt and well developed Orientation / Consciousness: awake, oriented to person, oriented to place and oriented to time HEENT normocephalic, head/scalp atraumatic and moist oral mucous membranes Eyes PERRL, EOMs intact bilaterally and conjunctivae normal Neck supple, no JVD, thyroid normal and no carotid bruits General: trachea midline Resp normal respiratory effort and clear to auscultation bilaterally Auscultation: Negative for rales, rhonchi or wheezes Cardio regular rate, regular rhythm, S1 normal heart sound, S2 normal heart sound, no murmurs, no rub and no gallops GI normal to inspection, nondistended, normoactive bowel sounds, soft to palpation,non-tender and non-distended GI Narrative: Patient has a colostomy Extremity no clubbing, cyanosis or edema Skin no rashes or lesions noted General Skin Exam: no breakdown Neuro oriented x3, CN's II-XII intact bilaterally, moves all extremities, no focal motor deficits and no sensory deficits noted Sensorium / Orientation: awake and alert Speech: speech normal Psych affect normal Assessment & Plan Assessment/Plan (1) GI bleed: PLAN: Plan 1. Acute GI bleed-etiology unclear, hemoglobin remained stable at this time, again gastroenterology is recommending transfer to a tertiary facility, we are awaiting word from [facility], patient remains on a Protonix drip #2 acute blood loss anemia from GI tract requiring transfusion-hemoglobin remained stable at this time, H&H will be repeated tomorrow #3 hyperlipidemia-patient is on a statin #4 peripheral arterial disease-complicates care, management, recovery, and prognosis Total clinical time spent by myself addressing the patient's medical issues, reviewing his data, and collaborating with patient's care team: 25 minutes Charges/Coding Visit Charges Inpatient E&M: 99825 Subs Hosp L1 08/21/231803 <Electronically signed by Milton Bergeron DO> Cosigner Signature (if applicable): CC: ~ Signed [facility] Work Phone: 1(860) 759-371404-19-2024 Progress note Author Emile Dumont [facility] August 20, 2023 2:23pm Note Date/Time August 20, 2023 8:0 6am [facility] Medical Records Department [address] [place] [address] Progress Note - Hospitalist 08/20/23 08 MR#: [id number] Acct: [id number] Name: CHOCO MALDONADO Rep #:[id number] : 1960 62 From: Emile Dumont DO PCP: Dr. Linda Parish MD Status:ADM I N Location: [place] [address] Reason for Visit Reason for Visit: Diagnoses Peripheral vascular disease, unspecified (08/18/23) Gastrointestinal hemorrhage, unspecified (08/18/23) Presence of other vascular implants and grafts (08/18/23) Subjective Subjective Having cramps and increased swelling in the right lower extremity. No further bleeding Objective Data Objective Data Vital Signs: Vital Signs Temp Pulse Resp BP Pulse Ox O2 Del Method 36.6 C 59 L 16 151/76 H 97 Room Air 08/20/23 02:44 08/20/23 02:44 08/20/23 02:44 08/20/23 02:44 08/20/23 02:44 08/20/23 02:44 Oxygen Delivery Method Room Air Weight: 90.4 kg Body Mass Index (BMI) 26.2 Intake & Output: Intake and Output for Last 24 Hours 04/08/19/23 08/20/23 23:59 23:59 23:59 Intake Total 85 / 85 1834.75 / 1834.75 1300 / 1300 Output Total 1885 / 2660 1575 / 1575 Balance 85 / -315 -50.25 / -825.25 -275 / -275 Lab / Micro Data 08/20/23 06:17 08/20/23 06:17 Labs: Laboratory Results - last 24 hr 08/19/23 06:55: WBC 7.5, RBC 2.67 L, Hgb 7.0 L, Hct 22.3 L, MCV 83.5, MCH 26.2 L, MCHC 31.4 L, RDW Std Deviation 50.9 H, RDW Coeff of Eze 16.6 H, Plt Count 392,MPV 9.2, Immature Gran % (Auto) 0.400, Neut % (Auto) 63.2, Lymph % (Auto) 27.7, Len[place] % (Auto) 5.0, Eos % (Auto) 2.9, Baso % (Auto) 0.8, Absolute Neuts (auto) 4.8, Absolute Lymphs (auto) 2.09, Nucleated RBC % 0, Sodium 139, Potassium 3.6, Chloride 110 H, Carbon Dioxide 23.0, Anion Gap 6, BUN 15, Creatinine 0.95, EstimCreat Clear Calc 92.28, Est GFR (MDRD) Af Amer 104, Est GFR (MDRD) Non-Af 86, BUN/Creatinine Ratio 15.8, Glucose 92, Calcium 8.5, Total Bilirubin 0.70, AST 20, ALT 21, Alkaline Phosphatase 71, Total Protein 6.3 L, Albumin 3.1 L, Globulin 3.2, Albumin/Globulin Ratio 1.0 08/19/23 10:20: Hgb 7.6 L, Hct 23.7 L 08/19/23 14:16: Hgb 7.7 L, Hct 25.0 L 08/20/23 06:17: WBC 6.9, RBC 2.90 L, Hgb 7.6 L, Hct 24.4 L, MCV 84.1, MCH 26.2 L, MCHC 31.1 L, RDW Std Deviation 52.1 H, RDW Coeff of Eze 16.9 H, Plt Count 425,MPV 9.0, Immature Gran % (Auto) 0.100, Neut % (Auto) 61.0, Lymph % (Auto) 29.5, Lenoir % (Auto) 5.0, Eos % (Auto) 3.4, Baso % (Auto) 1.0, Absolute Neuts (auto) 4.2, Absolute Lymphs (auto) 2.02, Nucleated RBC % 0, Sodium 141, Potassium 3.7, Chloride 108 H, Carbon Dioxide 25.0, Anion Gap 8, BUN 11, Creatinine 0.99, EstimCreat Clear Calc 88.55, Est GFR (MDRD) Af Amer 99, Est GFR (MDRD) Non-Af 81, BUN/Creatinine Ratio 11.1, Glucose 101, Calcium 8.5 Micro: Microbiology 08/17/23 16:05 Stool Stool Occult Blood (VENKATA) - Final Occult Blood Positive Radiography Diagnostic Testing: Radiology Impression Ankle Brachial Index 08/18/23 16:10 Interpretation Summary Right SAVANNA 1.0, normal. Doppler/PVR waveforms of the right ankle mildly diminished at rest. Left SAVANNA 1.14, normal. Doppler/PVR waveforms of the left ankle mildly diminishedat rest. Ordering Physician: Staci Harris Referring Physician: Linda Parish Performed By: Velasquez Chamberlain RVT Duplex Scan Lower Extremity Artery 08/18/23 16:10 Interpretation Summary Patent right SFA-PT bypass with stenosis of proximal anastomosis, preserved velocities throughout graft. Ordering Physician: Staci Harris Referring Physician: linda Parish Performed By: Willinger, Isabel, RVT Physical Exam Const alert and no apparent distress HEENT head/scalp atraumatic and moist oral mucous membranes Resp normal respiratory effort, no retractions, no use of accessory muscles and clearto auscultation bilaterally Cardio regular rate, regular rhythm, S1 normal heart sound and S2 normal heart sound GI normal to inspection, nondistended, normoactive bowel sounds Extremity Extremity Narrative: Increased edema right lower extremity. Neuro Sensorium / Orientation: awake and alert Assessment & Plan Assessment/Plan (1) GI bleed: PLAN: Plan Acute GI Bleed * Noted melena in colostomy. None since admission. * concern for area in small bowel by GI * GI recommending TF to tertiary facility given his previous negative GI workup but also the fact that he needs to continue to be on anticoagulation due to his history of PAD. * Pt accepted by [facility]. * on pantoprazole gtt ABLA * 2/2 GIB * admission hg 4.7, improved after 3 units. * Monitor Right lower extremity edema * ABIs performed on were negative * Venous duplex ordered. Chronic conditions: * PAD: PAD s/p femoral-popliteal bypass with limb ischemia w/ right above-knee popliteal to posterior tibial bypass with reversed right saphenous vein and ligation of prior femoropopliteal trunk bypass on 05/14/2023 at [facility] ith still intact previous bypass in the leg with chronic swelling associated as well as chronic numbness/paresthesias which is unchanged, had as noted recently restarted Xarelto over the last month, given recent intervention and revision we will continue to hold Xarelto but will continue ASA 81 mg daily which was discussed with Dr. Hernandez. Additionally, will request RLE arterial duplex and RLE SAVANNA studies. * Hypertension: Given presentation with normal range BPs with significant acute blood loss anemia we will hold patient hypertensive regimen and resume once clinically appropriate. * Hyperlipidemia: Will continue statin therapy. * Anxiety and depression: We will continue patient home amitriptyline and fluoxetine home regimen. * Psoriasis: Patient with monthly ixekizuman injections, encourage continued outpatient follow-up as previously arranged. * Chronic migraines: Outpatient patient uses rizatriptan regimen as needed, will hold unless necessary. * Former tobacco use: Encourage continued tobacco cessation. * Chronic neuropathy: Will continue patient home gabapentin regimen. * GERD: As noted will maintain on IV PPI. * EtOH Abuse: Patient notes routine consumption of at least 3, 12 ounce beers and occasionally Paul and Coke per day. Discussed alcoholism and strongly encouraged decreased alcohol intake/sobriety especially given GI bleed history. Will maintain on CIWA protocol, MVI, thiamine and folic acid. Case management consulted. DVT prophylaxis: Holding patient home Xarelto per discussion with Dr. Hernandez. Will maintain on asa only cautiously. CODE status: Full Charges/Coding Visit Charges Inpatient E&M: 63697 Subs Hosp L2 08/20/23 1423 <Electronically signed by Emile Dumont DO> Cosigner Signature (if applicable): CC: ~ Signed [facility] Work Phone: 1(802) 389-139304-18-2024 Consult note Author Emile Hernandez [facility] August 19, 2023 6:57pm Note Date/Time August 19, 2023 4:5 5pm [facility] Medical Records Department [address] [place] [address] Consultation - Surgical 08/19/23 1647 MR#: [id number] Acct: [id number] Name: CHOCO MALDONADO Rep #:[id number] : 1960 62 From: Azalia FRIEND PCP: Dr. Linda Parish MD Status:ADM I N Location: [place] [address] Assessment & Plan Assessment/Plan (1) GI bleed: (2) S/P femoral-popliteal bypass surgery: (3) Peripheral vascular disease: PLAN: Plan The arterial duplex did show proximal stenosis in the bypass; however, velocities are adequate through the rest of the bypass and he has normal flow through the rest of the leg with normal SAVANNA. This stenosis may need addressed atsome point in the future, but continued anemia is of greater risk to the bypass than holding anticoagulation at this time. Okay to continue to hold Xarelto. Would recommend continuing ASA 81mg if possible. Plan is for transfer to [facility] once a bed is available. Will continueto follow while he is here. HPI Consult Data Date of Consult: 08/19/23 HPI Narrative HPI Narrative: CHOCO MALDONADO, is a 62 M who presented to the [facility] ER on 08/18/23 with dark stools in his colostomy bag and was found to have a Hgb of 4. This has improved to 7.7 today after [address] Reyes had seen the patient in prior admissions and as an outpatient and recommend transfer to a tertiary care center. He has been accepted by [facility] but is still waiting on a bed. In October 2022, he had a R fem-pop bypass with PTFE in [place] which subsequently failed prompting R above-knee popliteal to PT bypass with tanana vein at [facility] by Dr. Christiana Arrington in May. He did have a similar episode of GI bleeding in June during which his anticoagulants were held but he did end uprestarting this recently. He reports that 3 weeks ago he had an angiogram with bypass angioplasty. He has been on Xarelto 20mg daily and ASA 81mg daily as an outpatient. We are consulted regarding the anticoagulant regimen in the setting of his GI bleed. He had arterial studies today which showed a patent right SFA-PT bypass with stenosis of the proximal anastomosis but preserved velocities throughout. R SAVANNA 1.0 and L SAVANNA 1.14. [facility] Medical History (Updated 08/18/23 @ 14:[address] Staci Harris MD) Alcohol abuse Anticoagulant long-term use Arthritis Chronic anemia Diverticulitis of colon with perforation Former tobacco use GERD (gastroesophageal reflux disease) Heart murmur History of GI bleed HLD (hyperlipidemia) Hypertension PAD (peripheral artery disease) Polycythemia Psoriasis Vertigo Home Medications atorvastatin 20 mg tablet 40 mg PO QHS cholesterol 09/17/15 [History Last Taken 06/18/23] nifedipine 30 mg tablet,extended release 30 mg PO DAILY PRN raynauds syndrome 09/17/15 [History Last Taken Unknown] fluoxetine 20 mg capsule 20 mg PO DAILY mental health 09/20/20 [History Last Taken 06/18/23] ixekizumab 80 mg/mL subcutaneous auto-injector (Taltz Autoinjector) 80 [facility] skin health 09/20/20 [History Last Taken 05/24/23] rizatriptan 10 mg disintegrating tablet 10 mg PO PRN PRN Migraine Headache 09/20/20 [History Last Taken Unknown] amitriptyline 50 mg tablet 25 mg PO QHS headache 01/17/22 [History Last Taken 06/18/23] ondansetron 4 mg disintegrating tablet 4 mg PO Q8H PRN nausea and vomiting #10 tabs 01/17/22 [Rx Last Taken Unknown] gabapentin 300 mg capsule 300 mg PO Q8H neuropathy/nerve pain 06/07/23 [History Last Taken 06/18/23] pantoprazole 40 mg tablet,delayed release 40 mg PO DAILY heart burn 06/07/23 [History Last Taken 06/18/23] rivaroxaban 20 mg tablet (Xarelto) 20 mg PO QPM blood thinner 06/07/23 [History Last Taken 06/18/23 22:00] iron 150 mg-vit C 60 mg-folate 1 [id number] tablet (Niferex (Sumalate-Quatrefolic)) 1 tab PO DAILY supplement #60 tabs 06/10/23 [Rx Last Taken 06/18/23] oxycodone-acetaminophen 5 mg-325 mg tablet 1 tab PO BID PRN pain 06/19/23 [History Last Taken 06/19/23] aspirin 81 mg chewable tablet 1 tab PO QPM 08/18/23 [History Last Taken Unknown] fremanezumab-vfrm 225 mg/1.5 mL subcutaneous auto-injector (Ajovy) mg subcut headaches 08/18/23 [History Last Taken Unknown] hydrocodone-acetaminophen 5-325mg 5mg-325mg 1 tab PO BID 08/18/23 [History Last Taken Unknown] polysaccharide iron complex 150 mg iron capsule 150 mg PO DAILY anemia 08/18/23 [History Last Taken Unknown] tizanidine 4 mg tablet 4 mg PO QHS PRN muscle spasm 08/18/23 [History Last Taken Unknown] Allergy/AdvReac Type Severity Reaction Status Date / Time verapamil Allergy Rash Verified 08/17/23 15:32 Family History (Updated 08/18/23 @ 14:[address] Staci Harris MD) Mother Heart disease Hypertension Father Diabetes Surgical History (Updated 08/18/23 @ 14:[address] Staci Harris MD) History of creation of ostomy History of vascular surgery Hx of cardiac catheterization S/P partial colectomy Social History (Updated 08/18/23 @ 14:[address] Staci Harris MD) household members: spouse Smoking Status: Former smoker how long ago did patient quit smoking: Quit 04/2023. alcohol intake: current alcohol intake frequency: 3 or more drinks per day Alcohol type: beer and hard liquor details: At least 3 beers (12 oz)/night, occasionally also Paul/Coke. substance use type: does not use Lab / Micro Data 08/19/23 14:16 08/19/23 06:55 Labs: Laboratory Results - last 24 hr 08/17/23 15:55: Crossmatch See Detail 08/19/23 02:50: Hgb 7.8 L, Hct 25.1 L 08/19/23 06:55: WBC 7.5, RBC 2.67 L, Hgb 7.0 L, Hct 22.3 L, MCV 83.5, MCH 26.2 L, MCHC 31.4 L, RDW Std Deviation 50.9 H, RDW Coeff of Eze 16.6 H, Plt Count 392,MPV 9.2, Immature Gran % (Auto) 0.400, Neut % (Auto) 63.2, Lymph % (Auto) 27.7, Lenoir % (Auto) 5.0, Eos % (Auto) 2.9, Baso % (Auto) 0.8, Absolute Neuts (auto) 4.8, Absolute Lymphs (auto) 2.09, Nucleated RBC % 0, Sodium 139, Potassium 3.6, Chloride 110 H, Carbon Dioxide 23.0, Anion Gap 6, BUN 15, Creatinine 0.95, EstimCreat Clear Calc 92.28, Est GFR (MDRD) Af Amer 104, Est GFR (MDRD) Non-Af 86, BUN/Creatinine Ratio 15.8, Glucose 92, Calcium 8.5, Total Bilirubin 0.70, AST 20, ALT 21, Alkaline Phosphatase 71, Total Protein 6.3 L, Albumin 3.1 L, Globulin 3.2, Albumin/Globulin Ratio 1.0 08/19/23 10:20: Hgb 7.6 L, Hct 23.7 L 08/19/23 14:16: Hgb 7.7 L, Hct 25.0 L 08/19/23 1831 <Electronically signed by Azalia FRIEND> Cosigner Signature (if applicable): 08/19/23 1857 <Electronically signed by Emile Hernandez MD> CC: Dr. Linda Parish MD~ Signed [facility] Work Phone: 1(787) 179-224404-18-2024 Progress note Author Emile Dumont [facility] August 19, 2023 4:32pm Note Date/Time August 19, 2023 8:0 2am [facility] Medical Records Department [address] [place] [address] Progress Note - Hospitalist 08/19/23 0758 MR#: [id number] Acct: [id number] Name: CHOCO MALDONADO Rep #:[id number] : 1960 62 From: Emile Dumont DO PCP: Dr. Linda Parish MD Status:ADM I N Location: [place] [address] Reason for Visit Reason for Visit: Diagnoses Gastrointestinal hemorrhage, unspecified (08/18/23) Subjective Subjective Feeling well. No blood in stools or dark tarry stools at this time. Objective Data Objective Data Vital Signs: Vital Signs Temp Pulse Resp BP Pulse Ox O2 Del Method 36.3 C L 62 20 H 158/68 H 97 Room Air 08/19/23 06:42 08/19/23 06:42 08/19/23 06:42 08/19/23 06:42 08/19/23 06:42 08/19/23 06:42 Oxygen Delivery Method Room Air Weight: 90.7 kg Body Mass Index (BMI) 26.4 Intake & Output: Intake and Output for Last 24 Hours 08/17/23 08/18/23 08/19/23 23:59 23:59 23:59 Intake Total 1001 / 1001 85 / 85 101 / 101 Output Total 1075 / 1075 Balance 1001 / 1001 85 / -315 -974 / -974 Lab / Micro Data 08/19/23 14:16 08/19/23 06:55 Labs: Laboratory Results - last 24 hr 08/17/23 15:55: Diff Path Review Reviewed, Crossmatch See Detail 08/18/23 10:55: Hgb 6.1 L, Hct 19.6 L 08/19/23 02:50: Hgb 7.8 L, Hct 25.1 L Micro: Microbiology 08/17/23 16:05 Stool Stool Occult Blood (VENKATA) - Final Occult Blood Positive Physical Exam Const alert and no apparent distress HEENT head/scalp atraumatic and moist oral mucous membranes Resp normal respiratory effort, no retractions, no use of accessory muscles and clearto auscultation bilaterally Cardio regular rate, regular rhythm, S1 normal heart sound and S2 normal heart sound GI normal to inspection, nondistended, normoactive bowel sounds GI Narrative: Colostomy left lower quadrant without any stool. Neuro Sensorium / Orientation: awake and alert Assessment & Plan Assessment/Plan (1) GI bleed: PLAN: Plan Acute GI Bleed * blood in colostomy * concern for area in small bowel by GI * GI recommending TF to tertiary facility. * Pt accepted by [facility]. * on pantoprazole gtt ABLA * 2/2 GIB * admission hg 4.7, improved after 3 units. * Monitor Chronic conditions: * PAD: PAD s/p femoral-popliteal bypass with limb ischemia w/ right above-knee popliteal to posterior tibial bypass with reversed right saphenous vein and ligation of prior femoropopliteal trunk bypass on 05/14/2023 at [facility] ith still intact previous bypass in the leg with chronic swelling associated as well as chronic numbness/paresthesias which is unchanged, had as noted recently restarted Xarelto over the last month, given recent inte rvention and revision we will continue to hold Xarelto but will continue ASA 81 mg daily which was discussed with Dr. Hernandez. Additionally, will request RLE arterial duplex and RLE SAVANNA studies. * Hypertension: Given presentation with normal range BPs with significant acute blood loss anemia we will hold patient hypertensive regimen and resume once clinically appropriate. * Hyperlipidemia: Will continue statin therapy. * Anxiety and depression: We will continue patient home amitriptyline and fluoxetine home regimen. * Psoriasis: Patient with monthly ixekizuman injections, encourage continued outpatient follow-up as previously arranged. * Chronic migraines: Outpatient patient uses rizatriptan regimen as needed, will hold unless necessary. * Former tobacco use: Encourage continued tobacco cessation. * Chronic neuropathy: Will continue patient home gabapentin regimen. * GERD: As noted will maintain on IV PPI. * EtOH Abuse: Patient notes routine consumption of at least 3, 12 ounce beers and occasionally Paul and Coke per day. Discussed alcoholism and strongly encouraged decreased alcohol intake/sobriety especially given GI bleed history. Will maintain on CIWA protocol, MVI, thiamine and folic acid. Case management consulted. DVT prophylaxis: Holding patient home Xarelto per discussion with Dr. Hernandez. Will maintain on asa only cautiously. CODE status: Full Charges/Coding Visit Charges Inpatient E&M: 32362 Subs Hosp L2 08/19/23 1632 <Electronically signed by Emile Dumont DO> Cosigner Signature (if applicable): CC: ~ Signed [facility] Work Phone: 1([phone]) 609-890404-17-2024 History and physical note Author Staci Harris [facility] August 18, 2023 2:49pm Note Date/Time August 18, 2023 1:5 3pm [facility] Medical Records Department [address] [place] [address] H&P Exam - Hospitalist 08/18/23 1352 MR#: [id number] Acct: [id number] Name: CHOCO MALDONADO Rep #:[id number] : 1960 62 From: Staci Harris MD PCP: Dr. Linda Parish MD Status:REG E R Location: ED HPI - General General Date of Admission: 08/18/23 Date of Service: 08/18/23 Chief Complaint: Dyspnea, fatigue, dark output from ostomy. HPI Narrative The patient is a 62 y/o M w/ PMHx: EtOH abuse, Former tobacco use, Chronic neuropathy, Anxiety and Depression, HTN, HLD, Chronic migraines, GERD, PAD s/p femoral-popliteal bypass with limb ischemia w/ right above-knee popliteal to posterior tibial bypass with reversed right saphenous vein and ligation of priorfemoropopliteal trunk bypass on 05/14/2023 at [facility] ith still intact previous bypass in the leg with chronic swelling associated as well as chronic numbness/paresthesias which is unchanged, Psoriasis, Hx perforated diverticulitis requiring colostomy, Hx GI bleed w/ upper and lower as well as capsule endoscopies unremarkable per DrKush Friend with reportedly being back on his NOAC for approximately 1 month with onset of dark black stools in his colostomy bag with no specific abdominal pain, no coffee-ground emesis or hematemesis nor any fevers or chills with weakness, mild dyspnea and lightheadedness with activity attempts prompting ED evaluation. Workup in the EDinuded initial presentation 08/17/2023 with T96.9, heart rate 85, BP 130/58, respiratory rate 18, 100% on room air with most recent repeat vital signs heart rate 73, BP 139/99, respiratory rate 16, 99% on room air, initial presentation ED CBC with WBC 8.1, hemoglobin 4.7, MCV 81.8, platelet 430 without marked shift, BMP with glucose 127, hepatic profile unremarkable administered 2 unit PRBC administration with follow-up 08/18/2019 4 repeat labs notable for WBC 8.7, hemoglobin 6.2 with confirmation 6.1, MCV 82.2, platelet 420 without marked shift, BMP with chloride 109 otherwise unremarkable, CTA chest, abdomen and pelvis with minor basilar interstitial thickening or subsegmental atelectasis, no acute cardiopulmonary findings, atherosclerotic changes of the thoracic and abdominal aorta without evidence of aneurysmal periaortic leak or dissection, postop changes status postresection rectosigmoid with diverting colostomy in theleft lower quadrant, no evidence of bowel obstruction, no contrast extravasationwithin the bowel in the ED patient administered tizanidine 4 mg p.o. x 1, morphine 4 mg IV x 1, [place] 2 tab p.o., fentanyl 25 mcg IV x 3 doses, 1 L normalsaline as well as continued patient home 300 mg p.o. 3 times daily gabapentin. ED discussed case with gastroenterology who recommended transfer given his recent evaluation and inability to see anything with potential need for more aggressive evaluation of the small bowel. Patient was accepted at [facility] but is still awaiting a bed. [facility] Medical History (Updated 08/18/23 @ 14:[address] Staci Harrsi MD) Alcohol abuse Anticoagulant long-term use Arthritis Chronic anemia Diverticulitis of colon with perforation Former tobacco use GERD (gastroesophageal reflux disease) Heart murmur History of GI bleed HLD (hyperlipidemia) Hypertension PAD (peripheral artery disease) Polycythemia Psoriasis Vertigo Home Medications atorvastatin 20 mg tablet 40 mg PO QHS cholesterol 09/17/15 [History Last Taken 06/18/23] nifedipine 30 mg tablet,extended release 30 mg PO DAILY PRN raynauds syndrome 09/17/15 [History Last Taken Unknown] fluoxetine 20 mg capsule 20 mg PO DAILY mental health 09/20/20 [History Last Taken 06/18/23] ixekizumab 80 mg/mL subcutaneous auto-injector (Taltz Autoinjector) 80 mg subcutQMONTH skin health 09/20/20 [History Last Taken 05/24/23] rizatriptan 10 mg disintegrating tablet 10 mg PO PRN PRN Migraine Headache 09/20/20 [History Last Taken Unknown] amitriptyline 50 mg tablet 25 mg PO BID mental health 01/17/22 [History Last Taken 06/18/23] losartan 25 mg tablet 25 mg PO DAILY blood pressure 01/17/22 [History Last Taken 06/18/23] ondansetron 4 mg disintegrating tablet 4 mg PO Q8H PRN nausea and vomiting #10 tabs 01/17/22 [Rx Last Taken Unknown] cyclobenzaprine 10 mg tablet 10 mg PO TID PRN muscle spasms 06/07/23 [History Last Taken Unknown] gabapentin 300 mg capsule 300 mg PO Q8H neuropathy/nerve pain 06/07/23 [History Last Taken 06/18/23] pantoprazole 40 mg tablet,delayed release 40 mg PO DAILY heart burn 06/07/23 [History Last Taken 06/18/23] rivaroxaban 20 mg tablet (Xarelto) 20 mg PO QPM blood thinner 06/07/23 [History Last Taken 06/18/23 22:00] iron 150 mg-vit C 60 mg-folate 1 [id number] tablet (Niferex (Sumalate-Quatrefolic)) 1 tab PO DAILY supplement #60 tabs 06/10/23 [Rx Last Taken 06/18/23] oxycodone-acetaminophen 5 mg-325 mg tablet 1 tab PO BID PRN pain 06/19/23 [History Last Taken 06/19/23] aspirin 81 mg chewable tablet 1 tab PO QPM 08/18/23 [History Last Taken Unknown] hydrocodone-acetaminophen 5-325mg 5mg-325mg 1 tab PO BID 08/18/23 [History Last Taken Unknown] Allergy/AdvReac Type Severity Reaction Status Date / Time verapamil Allergy Rash Verified 08/17/23 15:32 Family History (Updated 08/18/23 @ 14:[address] Staci Harris MD) Mother Heart disease Hypertension Father Diabetes Surgical History (Updated 08/18/23 @ 14:[address] Staci Harris MD) History of creation of ostomy History of vascular surgery Hx of cardiac catheterization S/P partial colectomy Social History (Updated 08/18/23 @ 14:[address] Staci Harris MD) household members: spouse Smoking Status: Former smoker how long ago did patient quit smoking: Quit 04/2023. alcohol intake: current alcohol intake frequency: 3 or more drinks per day Alcohol type: beer and hard liquor details: At least 3 beers (12 oz)/night, occasionally also Paul/Coke. substance use type: does not use ROS ROS Narrative Admission Review of Systems: CONSTITUTIONAL: No weight loss, fever, chills, + weakness or fatigue. HEENT: + Lightheadedness, dizziness. Eyes: No visual loss, blurred vision, double vision or yellow sclerae. Ears, Nose, Throat: No hearing loss, sneezing, congestion, runny nose or sore throat. SKIN: No rash or itching, lesions, wounds except + staged ecchymoses, occasionalabrasion, venous stasis skin changes. CARDIOVASCULAR: + Chronic edema. No chest pain, chest pressure or chest discomfort, palpitations, orthopnea, syncopal events. RESPIRATORY: + Dyspnea, worse with exertion. No cough or sputum, wheezing, hemoptysis. GASTROINTESTINAL: + Black stool from ostomy. No anorexia, nausea, vomiting, BRBPR. GENITOURINARY: No dysuria, frequency, urgency or retention. NEUROLOGICAL: + Chronic migraine headaches, Recent lightheadedness/dizziness.Nosyncope, paralysis, ataxia, numbness or tingling in the extremities, focal weakness, change in bowel or bladder control, seizure. MUSCULOSKELETAL: + muscle, back pain, joint pain or stiffness. HEMATOLOGIC: + Acute on chronic anemia, active bleeding is noted. Easy bruising. LYMPHATICS: No enlarged nodes. No history of splenectomy. PSYCHIATRIC: + History of anxiety and depression. ENDOCRINOLOGIC: No reports of sweating, cold or heat intolerance. No polyuria orpolydipsia. ALLERGIES: No history of asthma, hives, eczema or rhinitis. Vital Signs Vital Signs Vital Signs: 08/17/23 15:32 08/17/23 15:38 08/17/23 15:38 Temperature 96.9 F L Temperature Source Temporal Pulse Rate 85 77 Respiratory Rate 18 19 H Respiratory Effort Normal Non-Labored Respiratory Depth Respiratory Pattern Normal Blood Pressure 130/58 H 124/64 H Blood Pressure Mean 82 84 Blood Pressure Source Blood Pressure Position Blood Pressure Location Pulse Ox 100 100 Oxygen Delivery Method Room Air Room Air 08/17/23 15:38 08/17/23 16:05 08/17/23 16:30 Temperature Temperature Source Pulse Rate 87 84 Respiratory Rate 25 H 17 Respiratory Effort Normal Non-Labored Respiratory Depth Normal Respiratory Pattern Normal Blood Pressure 140/58 H Blood Pressure Mean 82 Blood Pressure Source Blood Pressure Position Blood Pressure Location Pulse Ox 100 Oxygen Delivery Method Room Air 08/17/23 17:00 08/17/23 17:17 08/17/23 17:32 Temperature 97.7 F L 98.9 F Temperature Source Oral Oral Pulse Rate 82 73 81 Respiratory Rate 15 19 H 17 Respiratory Effort Respiratory Depth Respiratory Pattern Blood Pressure 139/65 H 109/84 H 132/68 H Blood Pressure Mean 85 92 89 Blood Pressure Source Monitor Monitor Blood Pressure Position Supine Sitting Blood Pressure Location Left Forearm Pulse Ox 100 98 100 Oxygen Delivery Method Room Air Room Air 08/17/23 17:30 08/17/23 18:00 08/17/23 18:15 Temperature Temperature Source Pulse Rate 81 86 Respiratory Rate 19 H 18 Respiratory Effort Respiratory Depth Respiratory Pattern Blood Pressure 132/68 H 128/63 H 152/98 H Blood Pressure Mean 84 85 109 Blood Pressure Source Blood Pressure Position Blood Pressure Location Pulse Ox 100 Oxygen Delivery Method 08/17/23 18:17 08/17/23 18:30 08/17/23 19:00 Temperature Temperature Source Pulse Rate 76 82 79 Respiratory Rate 26 H 24 H 24 H Respiratory Effort Respiratory Depth Respiratory Pattern Blood Pressure 129/57 H 123/63 H Blood Pressure Mean 79 78 Blood Pressure Source Blood Pressure Position Blood Pressure Location Pulse Ox 100 99 100 Oxygen Delivery Method 08/17/23 18:32 08/17/23 19:30 08/17/23 19:20 Temperature 98.7 F 97.9 F Temperature Source Temporal Oral Pulse Rate 78 68 71 Respiratory Rate 15 20 H 18 Respiratory Effort Respiratory Depth Respiratory Pattern Blood Pressure 117/68 117/66 138/70 H Blood Pressure Mean 84 83 92 Blood Pressure Source Monitor Monitor Blood Pressure Position Semi-Fowlers Sitting Blood Pressure Location Right Arm Right Arm Pulse Ox 100 100 100 Oxygen Delivery Method Room Air Room Air Room Air 08/17/23 19:55 08/17/23 20:10 08/17/23 21:00 Temperature 98.1 F 97.8 F 97.8 F Temperature Source Oral Oral Oral Pulse Rate 71 64 64 Respiratory Rate 18 16 18 Respiratory Effort Respiratory Depth Respiratory Pattern Blood Pressure 131/72 H 130/65 H 130/65 H Blood Pressure Mean 91 86 86 Blood Pressure Source Monitor Monitor Blood Pressure Position Sitting Semi-Fowlers Blood Pressure Location Right Arm Right Arm Pulse Ox 98 100 100 Oxygen Delivery Method Room Air Room Air Room Air 08/17/23 22:07 08/17/23 22:08 08/18/23 00:00 Temperature 98.1 F 97.7 F L Temperature Source Oral Temporal Pulse Rate 74 72 66 Respiratory Rate 14 16 19 H Respiratory Effort Respiratory Depth Respiratory Pattern Blood Pressure 140/62 H 130/65 H 137/72 H Blood Pressure Mean 88 86 93 Blood Pressure Source Monitor Blood Pressure Position Semi-Fowlers Blood Pressure Location Right Arm Pulse Ox 100 100 100 Oxygen Delivery Method Room Air Room Air Room Air 08/18/23 01:00 08/18/23 02:00 08/18/23 03:00 Temperature Temperature Source Pulse Rate 68 78 74 Respiratory Rate 15 16 13 Respiratory Effort Respiratory Depth Respiratory Pattern Blood Pressure 133/60 H 128/69 H 166/71 H Blood Pressure Mean 84 88 102 Blood Pressure Source Blood Pressure Position Blood Pressure Location Pulse Ox 100 100 98 Oxygen Delivery Method Room Air Room Air Room Air 08/18/23 04:00 08/18/23 05:00 08/18/23 05:52 Temperature Temperature Source Pulse Rate 73 66 73 Respiratory Rate 17 16 20 H Respiratory Effort Respiratory Depth Respiratory Pattern Blood Pressure 134/70 H 146/70 H 146/70 H Blood Pressure Mean 91 95 95 Blood Pressure Source Blood Pressure Position Blood Pressure Location Pulse Ox 96 95 97 Oxygen Delivery Method Room Air Room Air Room Air 08/18/23 06:59 08/18/23 08:18 08/18/23 10:00 Temperature Temperature Source Pulse Rate 69 72 78 Respiratory Rate 19 H 16 17 Respiratory Effort Respiratory Depth Respiratory Pattern Blood Pressure 140/69 H 132/65 H 140/79 H Blood Pressure Mean 92 87 99 Blood Pressure Source Blood Pressure Position Blood Pressure Location Pulse Ox 97 96 95 Oxygen Delivery Method Room Air Room Air Room Air 08/18/23 11:00 08/18/23 12:00 08/18/23 13:25 Temperature Temperature Source Pulse Rate 78 73 71 Respiratory Rate 17 16 16 Respiratory Effort Respiratory Depth Respiratory Pattern Blood Pressure 146/68 H 139/99 H 98/58 L Blood Pressure Mean 94 112 71 Blood Pressure Source Blood Pressure Position Blood Pressure Location Pulse Ox 97 99 98 Oxygen Delivery Method Room Air Room Air Weight Weight: 201 lb Body Mass Index (BMI) 26.5 Physical Exam Narrative Physical Examination: General: Awake, alert, oriented x 3 and cooperative, seated upright in the ED bed, fatigued. Skin: Mildly pale color, normal turgor, no icterus, no cyanosis with noted bilateral lower extremity venous stasis skin changes, occasional staged ecchymoses, abrasion HEENT: AT/NC, EOMI, PERRLA, moderately dry MM, no carotid bruits or JVD noted. Lungs: Mildly diminished, greater bases, proper effort, no rales, ronchi or wheezing. Heart: Regular rate and rhythm; no gallop, rub audible. Abdomen: Soft, NTTP, ostomy intact with no output in the bag but he notes he just changed it and described it as black in appearance and toothpaste texture stool, no marked distention discerned, mildly hyperactive BS, no appreciated HSM. Extremities: No cyanosis, no clubbing, chronic lower extremity pedal to knee edema, stasis skin changes noted, status post right lower extremity revision femoropopliteal history as noted. Neurological: Patient awake, alert, oriented as noted, cognitive function intact; pupils equally reactive to light and accommodation, cranial nerves grossly normal, moving all 4 extremities, strength moderately to severely globaldecrease secondary to acute presentation. Psychiatric: Affect appears mildly flat, fatigued, no acute evidence of depressive or anxiety feelings but does have underlying history. Results Lab / Micro Data 08/18/23 10:55 08/18/23 05:00 Labs: Laboratory Results - last 24 hr 08/17/23 15:55: WBC 8.1, RBC 2.03 L, Hgb 4.7 L*, Hct 16.6 L, MCV 81.8, MCH 23.2 L, MCHC 28.3 L, RDW Std Deviation 50.7 H, RDW Coeff of Eze 17.0 H, Plt Count 430, MPV 8.7, Immature Gran % (Auto) 0.500, Neut % (Auto) 72.1 H, Lymph % (Auto)21.5, Len[place] % (Auto) 3.9, Eos % (Auto) 1.4, Baso % (Auto) 0.6, Absolute Neuts (auto) 5.9, Absolute Lymphs (auto) 1.74, Nucleated RBC % 0.4, Differential Comment SCANNED, Diff Path Review Reviewed, Polychromasia 1+, Hypochromasia 2+, Anisocytosis 1+, Target Cells RARE, Sodium 139, Potassium 3.8, Chloride 106, Carbon Dioxide 26.0, Anion Gap 7, BUN 19 H, Creatinine 1.10, Estim Creat Clear Calc 79.70, Est GFR (MDRD) Af Amer 87, Est GFR (MDRD) Non-Af 72, BUN/Creatinine Ratio 17.3, Glucose 127 H, Calcium 8.5, Total Bilirubin 0.40, Direct Bilirubin 0.11, AST 14 L, ALT 19, Alkaline Phosphatase 79, Total Protein 7.1, Albumin 3.6,Globulin 3.5, Albumin/Globulin Ratio 1.0, Blood Type O POSITIVE, Antibody ScreenNEGATIVE, Crossmatch See Detail 08/18/23 05:00: WBC 8.7, RBC 2.41 L, Hgb 6.2 L, Hct 19.8 L, MCV 82.2, MCH 25.7 L, MCHC 31.3 L D, RDW Std Deviation 48.7 H, RDW Coeff of Eze 16.4 H, Plt Count 420, MPV 8.9, Immature Gran % (Auto) 0.300, Neut % (Auto) 67.4, Lymph % (Auto) 25.1, Len[place] % (Auto) 5.1, Eos % (Auto) 1.4, Baso % (Auto) 0.7, Absolute Neuts (auto) 5.9, Absolute Lymphs (auto) 2.19, Nucleated RBC % 0.2, Sodium 140, Potassium 3.8, Chloride 109 H, Carbon Dioxide 26.0, Anion Gap 5, BUN 18, Creatinine 0.94, Estim Creat Clear Calc 93.26, Est GFR (MDRD) Af Amer 105, Est GFR (MDRD) Non-Af 87, BUN/Creatinine Ratio 19.2, Glucose 102, Calcium 8.5 08/18/23 10:55: Hgb 6.1 L, Hct 19.6 L Micro: Microbiology 08/17/23 16:05 Stool Stool Occult Blood (VENKATA) - Final Occult Blood Positive Imaging Radiology Impression Chest/Abdomen/Pelvis CTA 08/17/23 17:07 IMPRESSION: Minor bibasilar interstitial thickening or subsegmental atelectasis. No acute cardiopulmonary pathology Atherosclerotic changes of the thoracic and abdominal aorta without evidence for aneurysm periaortic leak or dissection Postop change status post resection of the rectosigmoid with diverting colostomy in the left lower quadrant . No evidence for small bowel obstruction or other acute abnormality. There is no contrast extravasation within the bowel to suggest site of acute GI hemorrhage at this time However radionuclide tagged red blood cells study would be helpful for further evaluation in this regard if indicated Electronically Signed: Choco Gordon MD at 18:44 EDT , Assessment & Plan Assessment/Plan (1) GI bleed: PLAN: Plan The patient is a 62 y/o M w/ PMHx: EtOH abuse, Former tobacco use, Chronic neuropathy, Anxiety and Depression, HTN, HLD, Chronic migraines, GERD, PAD s/p femoral-popliteal bypass with limb ischemia w/ right above-knee popliteal to posterior tibial bypass with reversed right saphenous vein and ligation of priorfemoropopliteal trunk bypass on 05/14/2023 at [facility] ith still intact previous bypass in the leg with chronic swelling associated as well as chronic numbness/paresthesias which is unchanged, Psoriasis, Hx perforated diverticulitis requiring colostomy, Hx GI bleed w/ upper and lower as well as capsule endoscopies unremarkable per DrKush Friend with reportedly being back on his NOAC for approximately 1 month with onset of dark black stools in his colostomy bag with no specific abdominal pain, no coffee-ground emesis or hematemesis nor any fevers or chills with weakness, mild dyspnea and lightheadedness with activity attempts prompting ED evaluation. #1. Acute GI Bleed w/ resultant Acute Blood Loss Anemia: Initial ED hemoglobin 4.7 with PRBC administration with repeat 6.2 and confirmation 6.1, and additional 2 unit PRBC ordered per ED physician, given still awaiting tertiary bed for more aggressive evaluation of the small bowel per gastroenterology recommendation will in the interim temporarily admit to medical surgical floor given stable vital signs, will maintain on judicious fluids pending additional PRBC administration, will continue to obtain serial H&H's, will allow clears with n.p.o. status at midnight per patient and family strong preference, will maintain on IV PPI, given EtOH abuse to be cautious will maintain on IV rocephinalthough no marked cirrhotic appearance on imaging prior but continue pending GIevaluation. Will request GI consultation while at [facility] until transfer has been completed. #2. PAD: PAD s/p femoral-popliteal bypass with limb ischemia w/ right above-knee popliteal to posterior tibial bypass with reversed right saphenous vein andligation of prior [facility]opl[facility] leg with chronic swelling associated as well as chronic numbness/paresthesias which is unchanged, had as noted recently restarted Xarelto over the last month, given recent intervention and revision wewill continue to hold Xarelto but will continue ASA 81 mg daily which was discussed with Dr. Hernandez. Additionally, will request RLE arterial duplex and RLE SAVANNA studies. #3. Hypertension: Given presentation with normal range BPs with significant acute blood loss anemia we will hold patient hypertensive regimen and resume once clinically appropriate. #4. Hyperlipidemia: Will continue statin therapy. #5. Anxiety and depression: We will continue patient home amitriptyline and fluoxetine home regimen. #6. Psoriasis: Patient with monthly ixekizuman injections, encourage continued outpatient follow-up as previously arranged. #7. Chronic migraines: Outpatient patient uses rizatriptan regimen as needed, will hold unless necessary. #8. Former tobacco use: Encourage continued tobacco cessation. #9. Chronic neuropathy: Will continue patient home gabapentin regimen. #10. GERD: As noted will maintain on IV PPI. #11. EtOH Abuse: Patient notes routine consumption of at least 3, 12 ounce beers and occasionally Paul and Coke per day. Discussed alcoholism and stronglyencouraged decreased alcohol intake/sobriety especially given GI bleed history. Will maintain on CIWA protocol, MVI, thiamine and folic acid. Case management consulted. #12. DVT prophylaxis: Holding patient home Xarelto per discussion with Dr. Hernandez. Will maintain on asa only cautiously. #13. CODE status: Patient HCPOA and LW are no in place but patient notes his would be his decision maker if necessary. Discussed CODE status at length including difference between FULL code, DNR-CCA and DNR-CC status. Following discussions about the differences in these status, requested Full Code status. Advanced Care Planning Face to Face Time: 16 minutes. Charges/Coding Visit Charges Inpatient E&M: 16005 Init Hosp L3 Procedures Hospitalists Procedures: 01996 Advncd Care Plan 30 Min 08/18/23 1449 <Electronically signed by Staci Harris MD> Cosigner Signature (if applicable): CC: Dr. Staci Harris MD; Dr. Linda Parish MD~ Signed [facility] Work Phone: [phone] 761-770404-17-2024 History and physical note Author [facility] August 18, 2023 2:49pm Note Date/Time August 18, 2023 1:5 3pm [facility] Medical Records Department [address] [place] [address] H&P Exam - Hospitalist 08/18/23 1352 MR#: [id number] Acct: [id number] Name: CHOCO MALDONADO Rep #:[id number] : 1960 62 From: Staci Harris MD PCP: Dr. Linda Parish MD Status:REG E R Location: ED HPI - General General Date of Admission: 08/18/23 Date of Service: 08/18/23 Chief Complaint: Dyspnea, fatigue, dark output from ostomy. HPI Narrative The patient is a 62 y/o M w/ PMHx: EtOH abuse, Former tobacco use, Chronic neuropathy, Anxiety and Depression, HTN, HLD, Chronic migraines, GERD, PAD s/p femoral-popliteal bypass with limb ischemia w/ right above-knee popliteal to posterior tibial bypass with reversed right saphenous vein and ligation of priorfemoropopliteal trunk bypass on 05/14/2023 at [facility] ith still intact previous bypass in the leg with chronic swelling associated as well as chronic numbness/paresthesias which is unchanged, Psoriasis, Hx perforated diverticulitis requiring colostomy, Hx GI bleed w/ upper and lower as well as capsule endoscopies unremarkable per DrKush Friend with reportedly being back on his NOAC for approximately 1 month with onset of dark black stools in his colostomy bag with no specific abdominal pain, no coffee-ground emesis or hematemesis nor any fevers or chills with weakness, mild dyspnea and lightheadedness with activity attempts prompting ED evaluation[facility] T96.9, heart rate 85, BP 130/58, respiratory rate 18, 100% on room air with most recent repeat vital signs heart rate 73, BP 139/99, respiratory rate 16, 99% on room air, initial presentation ED CBC with WBC 8.1, hemoglobin 4.7, MCV 81.8, platelet 430 without marked shift, BMP with glucose 127, hepatic profile unremarkable administered 2 unit PRBC administration with follow-up 08/18/2019 4 repeat labs notable for WBC 8.7, hemoglobin 6.2 with confirmation 6.1, MCV 82.2, platelet 420 without marked shift, BMP with chloride 109 otherwise unremarkable, CTA chest, abdomen and pelvis with minor basilar interstitial thickening or subsegmental atelectasis, no acute cardiopulmonary findings, atherosclerotic changes of the thoracic and abdominal aorta without evidence of aneurysmal periaortic leak or dissection, postop changes status postresection rectosigmoid with diverting colostomy in theleft lower quadrant, no evidence of bowel obstruction, no contrast extravasationwithin the bowel in the ED patient administered tizanidine 4 mg p.o. x 1, morphine 4 mg IV x 1, [place] 2 tab p.o., fentanyl 25 mcg IV x 3 doses, 1 L normalsaline as well as continued patient home 300 mg p.o. 3 times daily gabapentin. ED discussed case with gastroenterology who recommended transfer given his recent evaluation and inability to see anything with potential need for more aggressive evaluation of the small bowel. Patient was accepted at [facility] but is still awaiting a bed. [facility] Medical History (Updated 08/18/23 @ 14:[address] Staci Harris MD) Alcohol abuse Anticoagulant long-term use Arthritis Chronic anemia Diverticulitis of colon with perforation Former tobacco use GERD (gastroesophageal reflux disease) Heart murmur History of GI bleed HLD (hyperlipidemia) Hypertension PAD (peripheral artery disease) Polycythemia Psoriasis Vertigo Home Medications atorvastatin 20 mg tablet 40 mg PO QHS cholesterol 09/17/15 [History Last Taken 06/18/23] nifedipine 30 mg tablet,extended release 30 mg PO DAILY PRN raynauds syndrome 09/17/15 [History Last Taken Unknown] fluoxetine 20 mg capsule 20 mg PO DAILY mental health 09/20/20 [History Last Taken 06/18/23] ixekizumab 80 mg/mL subcutaneous auto-injector (Taltz Autoinjector) 80 mg subcutQMONTH skin health 09/20/20 [History Last Taken 05/24/23] rizatriptan 10 mg disintegrating tablet 10 mg PO PRN PRN Migraine Headache 09/20/20 [History Last Taken Unknown] amitriptyline 50 mg tablet 25 mg PO BID mental health 01/17/22 [History Last Taken 06/18/23] losartan 25 mg tablet 25 mg PO DAILY blood pressure 01/17/22 [History Last Taken 06/18/23] ondansetron 4 mg disintegrating tablet 4 mg PO Q8H PRN nausea and vomiting #10 tabs 01/17/22 [Rx Last Taken Unknown] cyclobenzaprine 10 mg tablet 10 mg PO TID PRN muscle spasms 06/07/23 [History Last Taken Unknown] gabapentin 300 mg capsule 300 mg PO Q8H neuropathy/nerve pain 06/07/23 [History Last Taken 06/18/23] pantoprazole 40 mg tablet,delayed release 40 mg PO DAILY heart burn 06/07/23 [History Last Taken 06/18/23] rivaroxaban 20 mg tablet (Xarelto) 20 mg PO QPM blood thinner 06/07/23 [History Last Taken 06/18/23 22:00] iron 150 mg-vit C 60 mg-folate 1 [id number] tablet (Niferex (Sumalate-Quatrefolic)) 1 tab PO DAILY supplement #60 tabs 06/10/23 [Rx Last Taken 06/18/23] oxycodone-acetaminophen 5 mg-325 mg tablet 1 tab PO BID PRN pain 06/19/23 [History Last Taken 06/19/23] aspirin 81 mg chewable tablet 1 tab PO QPM 08/18/23 [History Last Taken Unknown] hydrocodone-acetaminophen 5-325mg 5mg-325mg 1 tab PO BID 08/18/23 [History Last Taken Unknown] Allergy/AdvReac Type Severity Reaction Status Date / Time verapamil Allergy Rash Verified 08/17/23 15:32 Family History (Updated 08/18/23 @ 14:[address] Staci Harris MD) Mother Heart disease Hypertension Father Diabetes Surgical History (Updated 08/18/23 @ 14:[address] Staci Harris MD) History of creation of ostomy History of vascular surgery Hx of cardiac catheterization S/P partial colectomy Social History (Updated 08/18/23 @ 14:[address] Staci Harris MD) household members: spouse Smoking Status: Former smoker how long ago did patient quit smoking: Quit 04/2023. alcohol intake: current alcohol intake frequency: 3 or more drinks per day Alcohol type: beer and hard liquor details: At least 3 beers (12 oz)/night, occasionally also Paul/Coke. substance use type: does not use ROS ROS Narrative Admission Review of Systems: CONSTITUTIONAL: No weight loss, fever, chills, + weakness or fatigue. HEENT: + Lightheadedness, dizziness. Eyes: No visual loss, blurred vision, double vision or yellow sclerae. Ears, Nose, Throat: No hearing loss, sneezing, congestion, runny nose or sore throat. SKIN: No rash or itching, lesions, wounds except + staged ecchymoses, occasionalabrasion, venous stasis skin changes. CARDIOVASCULAR: + Chronic edema. No chest pain, chest pressure or chest discomfort, palpitations, orthopnea, syncopal events. RESPIRATORY: + Dyspnea, worse with exertion. No cough or sputum, wheezing, hemoptysis. GASTROINTESTINAL: + Black stool from ostomy. No anorexia, nausea, vomiting, BRBPR. GENITOURINARY: No dysuria, frequency, urgency or retention. NEUROLOGICAL: + Chronic migraine headaches, Recent lightheadedness/dizziness.Nosyncope, paralysis, ataxia, numbness or tingling in the extremities, focal weakness, change in bowel or bladder control, seizure. MUSCULOSKELETAL: + muscle, back pain, joint pain or stiffness. HEMATOLOGIC: + Acute on chronic anemia, active bleeding is noted. Easy bruising. LYMPHATICS: No enlarged nodes. No history of splenectomy. PSYCHIATRIC: + History of anxiety and depression. ENDOCRINOLOGIC: No reports of sweating, cold or heat intolerance. No polyuria orpolydipsia. ALLERGIES: No history of asthma, hives, eczema or rhinitis. Vital Signs Vital Signs Vital Signs: 08/17/23 15:32 08/17/23 15:38 08/17/23 15:38 Temperature 96.9 F L Temperature Source Temporal Pulse Rate 85 77 Respiratory Rate 18 19 H Respiratory Effort Normal Non-Labored Respiratory Depth Respiratory Pattern Normal Blood Pressure 130/58 H 124/64 H Blood Pressure Mean 82 84 Blood Pressure Source Blood Pressure Position Blood Pressure Location Pulse Ox 100 100 Oxygen Delivery Method Room Air Room Air 08/17/23 15:38 08/17/23 16:05 08/17/23 16:30 Temperature Temperature Source Pulse Rate 87 84 Respiratory Rate 25 H 17 Respiratory Effort Normal Non-Labored Respiratory Depth Normal Respiratory Pattern Normal Blood Pressure 140/58 H Blood Pressure Mean 82 Blood Pressure Source Blood Pressure Position Blood Pressure Location Pulse Ox 100 Oxygen Delivery Method Room Air 08/17/23 17:00 08/17/23 17:17 08/17/23 17:32 Temperature 97.7 F L 98.9 F Temperature Source Oral Oral Pulse Rate 82 73 81 Respiratory Rate 15 19 H 17 Respiratory Effort Respiratory Depth Respiratory Pattern Blood Pressure 139/65 H 109/84 H 132/68 H Blood Pressure Mean 85 92 89 Blood Pressure Source Monitor Monitor Blood Pressure Position Supine Sitting Blood Pressure Location Left Forearm Pulse Ox 100 98 100 Oxygen Delivery Method Room Air Room Air 08/17/23 17:30 08/17/23 18:00 08/17/23 18:15 Temperature Temperature Source Pulse Rate 81 86 Respiratory Rate 19 H 18 Respiratory Effort Respiratory Depth Respiratory Pattern Blood Pressure 132/68 H 128/63 H 152/98 H Blood Pressure Mean 84 85 109 Blood Pressure Source Blood Pressure Position Blood Pressure Location Pulse Ox 100 Oxygen Delivery Method 08/17/23 18:17 08/17/23 18:30 08/17/23 19:00 Temperature Temperature Source Pulse Rate 76 82 79 Respiratory Rate 26 H 24 H 24 H Respiratory Effort Respiratory Depth Respiratory Pattern Blood Pressure 129/57 H 123/63 H Blood Pressure Mean 79 78 Blood Pressure Source Blood Pressure Position Blood Pressure Location Pulse Ox 100 99 100 Oxygen Delivery Method 08/17/23 18:32 08/17/23 19:30 08/17/23 19:20 Temperature 98.7 F 97.9 F Temperature Source Temporal Oral Pulse Rate 78 68 71 Respiratory Rate 15 20 H 18 Respiratory Effort Respiratory Depth Respiratory Pattern Blood Pressure 117/68 117/66 138/70 H Blood Pressure Mean 84 83 92 Blood Pressure Source Monitor Monitor Blood Pressure Position Semi-Fowlers Sitting Blood Pressure Location Right Arm Right Arm Pulse Ox 100 100 100 Oxygen Delivery Method Room Air Room Air Room Air 08/17/23 19:55 08/17/23 20:10 08/17/23 21:00 Temperature 98.1 F 97.8 F 97.8 F Temperature Source Oral Oral Oral Pulse Rate 71 64 64 Respiratory Rate 18 16 18 Respiratory Effort Respiratory Depth Respiratory Pattern Blood Pressure 131/72 H 130/65 H 130/65 H Blood Pressure Mean 91 86 86 Blood Pressure Source Monitor Monitor Blood Pressure Position Sitting Semi-Fowlers Blood Pressure Location Right Arm Right Arm Pulse Ox 98 100 100 Oxygen Delivery Method Room Air Room Air Room Air 08/17/23 22:07 08/17/23 22:08 08/18/23 00:00 Temperature 98.1 F 97.7 F L Temperature Source Oral Temporal Pulse Rate 74 72 66 Respiratory Rate 14 16 19 H Respiratory Effort Respiratory Depth Respiratory Pattern Blood Pressure 140/62 H 130/65 H 137/72 H Blood Pressure Mean 88 86 93 Blood Pressure Source Monitor Blood Pressure Position Semi-Fowlers Blood Pressure Location Right Arm Pulse Ox 100 100 100 Oxygen Delivery Method Room Air Room Air Room Air 08/18/23 01:00 08/18/23 02:00 08/18/23 03:00 Temperature Temperature Source Pulse Rate 68 78 74 Respiratory Rate 15 16 13 Respiratory Effort Respiratory Depth Respiratory Pattern Blood Pressure 133/60 H 128/69 H 166/71 H Blood Pressure Mean 84 88 102 Blood Pressure Source Blood Pressure Position Blood Pressure Location Pulse Ox 100 100 98 Oxygen Delivery Method Room Air Room Air Room Air 08/18/23 04:00 08/18/23 05:00 08/18/23 05:52 Temperature Temperature Source Pulse Rate 73 66 73 Respiratory Rate 17 16 20 H Respiratory Effort Respiratory Depth Respiratory Pattern Blood Pressure 134/70 H 146/70 H 146/70 H Blood Pressure Mean 91 95 95 Blood Pressure Source Blood Pressure Position Blood Pressure Location Pulse Ox 96 95 97 Oxygen Delivery Method Room Air Room Air Room Air 08/18/23 06:59 08/18/23 08:18 08/18/23 10:00 Temperature Temperature Source Pulse Rate 69 72 78 Respiratory Rate 19 H 16 17 Respiratory Effort Respiratory Depth Respiratory Pattern Blood Pressure 140/69 H 132/65 H 140/79 H Blood Pressure Mean 92 87 99 Blood Pressure Source Blood Pressure Position Blood Pressure Location Pulse Ox 97 96 95 Oxygen Delivery Method Room Air Room Air Room Air 08/18/23 11:00 08/18/23 12:00 08/18/23 13:25 Temperature Temperature Source Pulse Rate 78 73 71 Respiratory Rate 17 16 16 Respiratory Effort Respiratory Depth Respiratory Pattern Blood Pressure 146/68 H 139/99 H 98/58 L Blood Pressure Mean 94 112 71 Blood Pressure Source Blood Pressure Position Blood Pressure Location Pulse Ox 97 99 98 Oxygen Delivery Method Room Air Room Air Weight Weight: 201 lb Body Mass Index (BMI) 26.5 Physical Exam Narrative Physical Examination: General: Awake, alert, oriented x 3 and cooperative, seated upright in the ED bed, fatigued. Skin: Mildly pale color, normal turgor, no icterus, no cyanosis with noted bilateral lower extremity venous stasis skin changes, occasional staged ecchymoses, abrasion HEENT: AT/NC, EOMI, PERRLA, moderately dry MM, no carotid bruits or JVD noted. Lungs: Mildly diminished, greater bases, proper effort, no rales, ronchi or wheezing. Heart: Regular rate and rhythm; no gallop, rub audible. Abdomen: Soft, NTTP, ostomy intact with no output in the bag but he notes he just changed it and described it as black in appearance and toothpaste texture stool, no marked distention discerned, mildly hyperactive BS, no appreciated HSM. Extremities: No cyanosis, no clubbing, chronic lower extremity pedal to knee edema, stasis skin changes noted, status post right lower extremity revision femoropopliteal history as noted. Neurological: Patient awake, alert, oriented as noted, cognitive function intact; pupils equally reactive to light and accommodation, cranial nerves grossly normal, moving all 4 extremities, strength moderately to severely globaldecrease secondary to acute presentation. Psychiatric: Affect appears mildly flat, fatigued, no acute evidence of depressive or anxiety feelings but does have underlying history. Results Lab / Micro Data 08/18/23 10:55 08/18/23 05:00 Labs: Laboratory Results - last 24 hr 08/17/23 15:55: WBC 8.1, RBC 2.03 L, Hgb 4.7 L*, Hct 16.6 L, MCV 81.8, MCH 23.2 L, MCHC 28.3 L, RDW Std Deviation 50.7 H, RDW Coeff of Eze 17.0 H, Plt Count 430, MPV 8.7, Immature Gran % (Auto) 0.500, Neut % (Auto) 72.1 H, Lymph % (Auto)21.5, Lenoir % (Auto) 3.9, Eos % (Auto) 1.4, Baso % (Auto) 0.6, Absolute Neuts (auto) 5.9, Absolute Lymphs (auto) 1.74, Nucleated RBC % 0.4, Differential Comment SCANNED, Diff Path Review Reviewed, Polychromasia 1+, Hypochromasia 2+, Anisocytosis 1+, Target Cells RARE, Sodium 139, Potassium 3.8, Chloride 106, Carbon Dioxide 26.0, Anion Gap 7, BUN 19 H, Creatinine 1.10, Estim Creat Clear Calc 79.70, Est GFR (MDRD) Af Amer 87, Est GFR (MDRD) Non-Af 72, BUN/Creatinine Ratio 17.3, Glucose 127 H, Calcium 8.5, Total Bilirubin 0.40, Direct Bilirubin 0.11, AST 14 L, ALT 19, Alkaline Phosphatase 79, Total Protein 7.1, Albumin 3.6,Globulin 3.5, Albumin/Globulin Ratio 1.0, Blood Type O POSITIVE, Antibody ScreenNEGATIVE, Crossmatch See Detail 08/18/23 05:00: WBC 8.7, RBC 2.41 L, Hgb 6.2 L, Hct 19.8 L, MCV 82.2, MCH 25.7 L, MCHC 31.3 L D, RDW Std Deviation 48.7 H, RDW Coeff of Eze 16.4 H, Plt Count 420, MPV 8.9, Immature Gran % (Auto) 0.300, Neut % (Auto) 67.4, Lymph % (Auto) 25.1, Lenoir % (Auto) 5.1, Eos % (Auto) 1.4, Baso % (Auto) 0.7, Absolute Neuts (auto) 5.9, Absolute Lymphs (auto) 2.19, Nucleated RBC % 0.2, Sodium 140, Potassium 3.8, Chloride 109 H, Carbon Dioxide 26.0, Anion Gap 5, BUN 18, Creatinine 0.94, Estim Creat Clear Calc 93.26, Est GFR (MDRD) Af Amer 105, Est GFR (MDRD) Non-Af 87, BUN/Creatinine Ratio 19.2, Glucose 102, Calcium 8.5 08/18/23 10:55: Hgb 6.1 L, Hct 19.6 L Micro: Microbiology 08/17/23 16:05 Stool Stool Occult Blood (VENKATA) - Final Occult Blood Positive Imaging Radiology Impression Chest/Abdomen/Pelvis CTA 08/17/23 17:07 IMPRESSION: Minor bibasilar interstitial thickening or subsegmental atelectasis. No acute cardiopulmonary pathology Atherosclerotic changes of the thoracic and abdominal aorta without evidence for aneurysm periaortic leak or dissection Postop change status post resection of the rectosigmoid with diverting colostomy in the left lower quadrant . No evidence for small bowel obstruction or other acute abnormality. There is no contrast extravasation within the bowel to suggest site of acute GI hemorrhage at this time However radionuclide tagged red blood cells study would be helpful for further evaluation in this regard if indicated Electronically Signed: Choco Gordon MD at 18:44 EDT Reading Location ID and State: [address] [place] [address] Tel , Service support , Assessment & Plan Assessment/Plan (1) GI bleed: PLAN: Plan The patient is a 62 y/o M w/ PMHx: EtOH abuse, Former tobacco use, Chronic neuropathy, Anxiety and Depression, HTN, HLD, Chronic migraines, GERD, PAD s/p femoral-popliteal bypass with limb ischemia w/ right above-knee popliteal to posterior tibial bypass with reversed right saphenous vein and ligation of priorfemoropopliteal trunk bypass on 05/14/2023 at [facility] ith still intact previous bypass in the leg with chronic swelling associated as well as chronic numbness/paresthesias which is unchanged, Psoriasis, Hx perforated diverticulitis requiring colostomy, Hx GI bleed w/ upper and lower as well as capsule endoscopies unremarkable per DrKush Friend with reportedly being back on his NOAC for approximately 1 month with onset of dark black stools in his colostomy bag with no specific abdominal pain, no coffee-ground emesis or hematemesis nor any fevers or chills with weakness, mild dyspnea and lightheadedness with activity attempts prompting ED evaluation. #1. Acute GI Bleed w/ resultant Acute Blood Loss Anemia: Initial ED hemoglobin 4.7 with PRBC administration with repeat 6.2 and confirmation 6.1, and additional 2 unit PRBC ordered per ED physician, given still awaiting tertiary bed for more aggressive evaluation of the small bowel per gastroenterology recommendation will in the interim temporarily admit to medical surgical floor given stable vital signs, will maintain on judicious fluids pending additional PRBC administration, will continue to obtain serial H&H's, will allow clears with n.p.o. status at midnight per patient and family strong preference, will maintain on IV PPI, given EtOH abuse to be cautious will maintain on IV rocephinalthough no marked cirrhotic appearance on imaging prior but continue pending GIevaluation. Will request GI consultation while at [facility] until transfer has been completed. #2. PAD: PAD s/p femoral-popliteal bypass with limb ischemia w/ right above-knee popliteal to posterior tibial bypass with reversed right saphenous vein andligation of prior [facility]oplite[facility] leg with chronic swelling associated as well as chronic numbness/paresthesias which is unchanged, had as noted recently restarted Xarelto over the last month, given recent intervention and revision wewill continue to hold Xarelto but will continue ASA 81 mg daily which was discussed with Dr. Hernandez. Additionally, will request RLE arterial duplex and RLE SAVANNA studies. #3. Hypertension: Given presentation with normal range BPs with significant acute blood loss anemia we will hold patient hypertensive regimen and resume once clinically appropriate. #4. Hyperlipidemia: Will continue statin therapy. #5. Anxiety and depression: We will continue patient home amitriptyline and fluoxetine home regimen. #6. Psoriasis: Patient with monthly ixekizuman injections, encourage continued outpatient follow-up as previously arranged. #7. Chronic migraines: Outpatient patient uses rizatriptan regimen as needed, will hold unless necessary. #8. Former tobacco use: Encourage continued tobacco cessation. #9. Chronic neuropathy: Will continue patient home gabapentin regimen. #10. GERD: As noted will maintain on IV PPI. #11. EtOH Abuse: Patient notes routine consumption of at least 3, 12 ounce beers and occasionally Paul and Coke per day. Discussed alcoholism and stronglyencouraged decreased alcohol intake/sobriety especially given GI bleed history. Will maintain on CIWA protocol, MVI, thiamine and folic acid. Case management consulted. #12. DVT prophylaxis: Holding patient home Xarelto per discussion with Dr. Hernandez. Will maintain on asa only cautiously. #13. CODE status: Patient HCPOA and LW are no in place but patient notes his would be his decision maker if necessary. Discussed CODE status at length including difference between FULL code, DNR-CCA and DNR-CC status. Following discussions about the differences in these status, requested Full Code status. Advanced Care Planning Face to Face Time: 16 minutes. Charges/Coding Visit Charges Inpatient E&M: 65119 Init Hosp L3 Procedures Hospitalists Procedures: 44476 Advncd Care Plan 30 Min 08/18/23 1449 <Electronically signed by Staci Harris MD> Cosigner Signature (if applicable): CC: Dr. Staci Harris MD; Dr. Linda Parish MD~ Signed [facility] Work Phone: [phone] 412-621604-17-2024 Discharge summary Author Herbie Coleman [facility] August 18, 2023 1:50pm Note Date/Time August 17, 2023 4:2 5pm [facility] Medical Records Department [address] [place] [address] Emergency Department Summary 08/17/23 MR#: [id number] Acct: [id number] Name: CHOCO MALDONADO Rep #:[id number] : 1960 62 From: Reid Ponce DO PCP: Dr. Linda Parish MD Status:REG E R Location: ED ADDENDUM by Dr. Herbie Coleman MD on 08/18/23 at 1350 Patient endorsed to me by Dr. Emile Reed as this patient is awaiting [facility] for GI bleeding. In review of the chart, patient has been discussed with Dr. Reyes who advised transfer. Patient is having dark stool inhis colostomy that was Hemoccult positive. He was found to have his hemoglobin low at 4, and after transfusion of 2 units of packed red blood cells, his hemoglobin was 6.2. Patient is still awaiting transfer to [facility]. There was a possibility that he would be transferred later in the afternoon withanticipated discharge. His hemoglobin was rechecked and I reviewed it and it isstable at 6.1. Charge nurse discussed the patient with the transfer line and they are unsure when a bed will be available at [facility]. As he has been waiting longer than 6 hours, patient was discussed with Dr. Staci Harris for admission until bed available at outside facility. He is in stable condition. 08/18/23 1350<Electronically signed by Herbie Coleman MD> Cosigner Signature (if applicable): cc: Dr. Linda Parish MD ~* Signed HPI History of Present Illness Chief Complaint: Abn Labs Narrative Narrative: 62-year-old male presenting with anemia. He has a history of this. The patientis on Xarelto currently. Has been back on it for about a month. The patient states that he was seen by Dr. Reyes previously. Had upper and lower endoscopyand a pill study which were all negative for bleeding. He had a CTA which showed a possible hematoma developing around his previous femoropopliteal bypassand there was concern that this could be the source of his anemia. He was sent to [facility] for evaluation of this. He states that they did not determine that this was a source of bleeding. 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 He states that he still has the previous bypass in his leg but also they used a tanana vessel to bypass the leg and he still has some edema and pain in the right leg which has not worsened or improved. Patient states he has some numbness after the surgery which has not changed either. He is on gabapentin for this. Patient's hemoglobin came back at 5 today. He has dark stools in hiscolostomy bag. He does not admit to any abdominal pain. He is not had any fevers. He is not vomiting blood or had any coffee-ground emesis. He feels generally a little bit weak and short of breath and lightheaded with ambulation secondary to his anemia. [facility] Medical History Acute gastrointestinal bleeding Anticoagulant long-term use Arthritis Diverticulitis GERD (gastroesophageal reflux disease) Heart murmur Hypertension Polycythemia Psoriasis Signs and symptoms of anemia Symptomatic anemia Transfusion of blood during current hospitalization Vertigo Home Medications atorvastatin 20 mg tablet 20 mg PO QHS cholesterol 09/17/15 [History Last Taken 06/18/23] nifedipine 30 mg tablet,extended release 30 mg PO DAILY PRN raynauds syndrome 09/17/15 [History Last Taken Unknown] fluoxetine 20 mg capsule 20 mg PO DAILY mental health 09/20/20 [History Last Taken 06/18/23] ixekizumab 80 mg/mL subcutaneous auto-injector (Taltz Autoinjector) 80 mg subcutQMON skin health 09/20/20 [History Last Taken 05/24/23] rizatriptan 10 mg disintegrating tablet 10 mg PO PRN PRN Migraine Headache 09/20/20 [History Last Taken Unknown] amitriptyline 50 mg tablet 50 mg PO QHS mental health 01/17/22 [History Last Taken 06/18/23] losartan 25 mg tablet 25 mg PO DAILY blood pressure 01/17/22 [History Last Taken 06/18/23] ondansetron 4 mg disintegrating tablet 4 mg PO Q8H PRN nausea and vomiting #10 tabs 01/17/22 [Rx Last Taken Unknown] cyclobenzaprine 10 mg tablet 10 mg PO TID PRN muscle spasms 06/07/23 [History Last Taken Unknown] gabapentin 300 mg capsule 300 mg PO Q12H neuropathy/nerve pain 06/07/23 [History Last Taken 06/18/23] oxycodone 5 mg tablet 5 mg PO Q6H PRN pain (scale score 4-6) 06/07/23 [History Last Taken 06/19/23 07:30] pantoprazole 40 mg tablet,delayed release 40 mg PO DAILY heart burn 06/07/23 [History Last Taken 06/18/23] rivaroxaban 20 mg tablet (Xarelto) 20 mg PO QPM blood thinner 06/07/23 [History Last Taken 06/18/23 22:00] iron 150 mg-vit C 60 mg-folate 1 [id number] tablet (Niferex (Sumalate-Quatrefolic)) 1 tab PO DAILY supplement #60 tabs 06/10/23 [Rx Last Taken 06/18/23] oxycodone-acetaminophen 5 mg-325 mg tablet 1 tab PO BID PRN pain 06/19/23 [History Last Taken 06/19/23] Allergy/AdvReac Type Severity Reaction Status Date / Time verapamil Allergy Rash Verified 08/17/23 15:32 Surgical History Hx of cardiac catheterization Social History Smoking Status: Former smoker substance use type: does not use ROS ROS ED Constitutional Constitutional ED: Denies chills, fever(s) or sweats Eyes Eyes: Denies blurry vision or change in vision ENT ENT ED: Denies ear pain or sore throat Cardiovascular Cardiovascular: Denies chest pain, palpitations or racing heartbeat Respiratory/Chest Respiratory/Chest: Denies cough, dyspnea or sputum Gastrointestinal Gastrointestinal: Denies abdominal pain, constipation, diarrhea, nausea or vomiting Genitourinary Genitourinary ED: Denies dysuria, hematuria or urinary frequency Musculoskeletal Musculoskeletal: Denies arthralgias, myalgias or neck pain Integumentary Denies abscess, Abrasions or rash Neurologic Neurologic: Denies headache(s), paresthesias or weakness Psychiatric Psychiatric: Denies anxiety, depression, suicidal ideation or suicidal thoughts Endocrine Endocrinology: Denies polydipsia or polyuria EXAM Physical Exam Const Vital Signs: 08/17/23 15:32 08/17/23 15:38 08/17/23 15:38 Temperature 96.9 F L Temperature Source Temporal Pulse Rate 85 77 Respiratory Rate 18 19 H Respiratory Effort Normal Non-Labored Respiratory Depth Respiratory Pattern Normal Blood Pressure 130/58 H 124/64 H Blood Pressure Mean 82 84 Blood Pressure Source Blood Pressure Position Blood Pressure Location Pulse Ox 100 100 Oxygen Delivery Method Room Air Room Air 08/17/23 15:38 08/17/23 16:05 08/17/23 16:30 Temperature Temperature Source Pulse Rate 87 84 Respiratory Rate 25 H 17 Respiratory Effort Normal Non-Labored Respiratory Depth Normal Respiratory Pattern Normal Blood Pressure 140/58 H Blood Pressure Mean 82 Blood Pressure Source Blood Pressure Position Blood Pressure Location Pulse Ox 100 Oxygen Delivery Method Room Air 08/17/23 17:00 08/17/23 17:17 08/17/23 17:32 Temperature 97.7 F L 98.9 F Temperature Source Oral Oral Pulse Rate 82 73 81 Respiratory Rate 15 19 H 17 Respiratory Effort Respiratory Depth Respiratory Pattern Blood Pressure 139/65 H 109/84 H 132/68 H Blood Pressure Mean 85 92 89 Blood Pressure Source Monitor Monitor Blood Pressure Position Supine Sitting Blood Pressure Location Left Forearm Pulse Ox 100 98 100 Oxygen Delivery Method Room Air Room Air 08/17/23 17:30 08/17/23 18:00 08/17/23 18:15 Temperature Temperature Source Pulse Rate 81 86 Respiratory Rate 19 H 18 Respiratory Effort Respiratory Depth Respiratory Pattern Blood Pressure 132/68 H 128/63 H 152/98 H Blood Pressure Mean 84 85 109 Blood Pressure Source Blood Pressure Position Blood Pressure Location Pulse Ox 100 Oxygen Delivery Method 08/17/23 18:17 08/17/23 18:30 08/17/23 19:00 Temperature Temperature Source Pulse Rate 76 82 79 Respiratory Rate 26 H 24 H 24 H Respiratory Effort Respiratory Depth Respiratory Pattern Blood Pressure 129/57 H 123/63 H Blood Pressure Mean 79 78 Blood Pressure Source Blood Pressure Position Blood Pressure Location Pulse Ox 100 99 100 Oxygen Delivery Method 08/17/23 18:32 08/17/23 19:30 08/17/23 19:20 Temperature 98.7 F 97.9 F Temperature Source Temporal Oral Pulse Rate 78 68 71 Respiratory Rate 15 20 H 18 Respiratory Effort Respiratory Depth Respiratory Pattern Blood Pressure 117/68 117/66 138/70 H Blood Pressure Mean 84 83 92 Blood Pressure Source Monitor Monitor Blood Pressure Position Semi-Fowlers Sitting Blood Pressure Location Right Arm Right Arm Pulse Ox 100 100 100 Oxygen Delivery Method Room Air Room Air Room Air 08/17/23 19:55 08/17/23 20:10 08/17/23 21:00 Temperature 98.1 F 97.8 F 97.8 F Temperature Source Oral Oral Oral Pulse Rate 71 64 64 Respiratory Rate 18 16 18 Respiratory Effort Respiratory Depth Respiratory Pattern Blood Pressure 131/72 H 130/65 H 130/65 H Blood Pressure Mean 91 86 86 Blood Pressure Source Monitor Monitor Blood Pressure Position Sitting Semi-Fowlers Blood Pressure Location Right Arm Right Arm Pulse Ox 98 100 100 Oxygen Delivery Method Room Air Room Air Room Air 08/17/23 22:07 08/17/23 22:08 Temperature 98.1 F Temperature Source Oral Pulse Rate 74 72 Respiratory Rate 14 16 Respiratory Effort Respiratory Depth Respiratory Pattern Blood Pressure 140/62 H 130/65 H Blood Pressure Mean 88 86 Blood Pressure Source Monitor Blood Pressure Position Semi-Fowlers Blood Pressure Location Right Arm Pulse Ox 100 100 Oxygen Delivery Method Room Air Room Air Positive well nourished General Appearance ED: NAD HEENT Reports moist mucous membranes Eyes PERRL and EOMs intact bilaterally General Eye ED: Yes pale conjunctiva Chest Wall inspection of chest normal Resp normal respiratory effort Cardio regular rate and regular rhythm GI normal to inspection, nondistended, normoactive bowel sounds GI Narrative: Colostomy bag with black stool. Extremity Extremity Narrative: Surgical site on right lower extremity appears clean, dry, intact. Well-healingsurgical scar on the medial aspect of the left leg. Neuro oriented x3 Sensorium / Orientation: alert Motor Exam: strength 5/5 throughout Psych mental status grossly normal MDM MDM MDM Narrative Medical decision making narrative: 62-year-old male presenting with anemia. His vital signs are stable he is afebrile. CBC today showed a white blood cell count 8.1. Hemoglobin 417. Patientwas typed, screened, crossmatch for 2 units. Renal function and electrolytes appear to be normal. LFTs are unremarkable. Patient was given IV fluids and treated with fentanyl for his pain. He states he does not have his gabapentin nor does he have his oxycodone which he normally takes. At this point him and keeping him a oh. I spoke with Dr. Aceves regarding the patient as his Hemoccultcame back positive from his colostomy bag. He recommended a CTA which was negative. After I spoke with Dr. Reyes again about this he stated that he was concerned that is there is something in the small bowel which she could not get to the recommended transfer. It looks like [facility] [place] [facility]. I spoke with the hospitalist at [facility] regarding the patient and she was unsure whether they would have anything to further evaluate his GI bleed. The transfer line was going to get the GI doctoron the phone to talk to me however it has been a few hours now and have not heard back. I will reinitiate the transfer and talk to them again. Patient is received a couple doses of fentanyl here for pain. He been hemodynamically stable and his blood's been started. Patient has been accepted to [facility] although it is unclear when the bed assignment will be made. Patient will be monitored until transfer can be obtained. Impression: 1. GI bleed 2. Acute blood loss anemia Lab Data Attestation: I reviewed the patient's lab results. Labs: Laboratory Results - last 24 hr 08/17/23 15:55 WBC 8.1 RBC 2.03 L Hgb 4.7 L* Hct 16.6 L MCV 81.8 MCH 23.2 L MCHC 28.3 L RDW Std Deviation 50.7 H RDW Coeff of Eze 17.0 H Plt Count 430 MPV 8.7 Immature Gran % (Auto) 0.500 Neut % (Auto) 72.1 H Lymph % (Auto) 21.5 [place] % (Auto) 3.9 Eos % (Auto) 1.4 Baso % (Auto) 0.6 Absolute Neuts (auto) 5.9 Absolute Lymphs (auto) 1.74 Nucleated RBC % 0.4 Differential Comment SCANNED Diff Path Review May foll Polychromasia 1+ Hypochromasia 2+ Anisocytosis 1+ Target Cells RARE Sodium 139 Potassium 3.8 Chloride 106 Carbon Dioxide 26.0 Anion Gap 7 BUN 19 H Creatinine 1.10 Estim Creat Clear Calc 79.70 Est GFR (MDRD) Af Amer 87 Est GFR (MDRD) Non-Af 72 BUN/Creatinine Ratio 17.3 Glucose 127 H Calcium 8.5 Total Bilirubin 0.40 Direct Bilirubin 0.11 AST 14 L ALT 19 Alkaline Phosphatase 79 Total Protein 7.1 Albumin 3.6 Globulin 3.5 Albumin/Globulin Ratio 1.0 Blood Type O POSITIVE Antibody Screen NEGATIVE Crossmatch See Detail Radiography Diagnostic Testing: Clinical Impression(s) from Imaging Studies Chest/Abdomen/Pelvis CTA 08/17/23 17:07 IMPRESSION: Minor bibasilar interstitial thickening or subsegmental atelectasis. No acute cardiopulmonary pathology Atherosclerotic changes of the thoracic and abdominal aorta without evidence for aneurysm periaortic leak or dissection Postop change status post resection of the rectosigmoid with diverting colostomy in the left lower quadrant . No evidence for small bowel obstruction or other acute abnormality. There is no contrast extravasation within the bowel to suggest site of acute GI hemorrhage at this time However radionuclide tagged red blood cells study would be helpful for further evaluation in this regard if indicated Electronically Signed: Choco Gordon MD at 18:44 EDT , Discharge Plan Triage Chief Complaint: Abn Labs Other Complaint: Shortness of Breath ED Provider: Reid Ponce Dx/Rx/DC Orders Prescriptions: No Action atorvastatin 20 MG tablet 20 mg PO QHS nifedipine 30 MG tablet extended release 30 mg PO DAILY PRN (Reason: raynauds syndrome) Taltz Autoinjector 80 mg/mL auto-injector 80 mg SUBCUT QMONTH rizatriptan 10 mg tablet,disintegrating 10 mg PO PRN PRN (Reason: Migraine Headache) Patient Comments: TAKE 1 TABLET BY MOUTH NEEDED for migraine, may repeat in 2 (TWO) hours ifneeded fluoxetine 20 mg capsule 20 mg PO DAILY amitriptyline 50 mg tablet 50 mg PO QHS losartan 25 mg tablet 25 mg PO DAILY ondansetron 4 mg tablet,disintegrating 4 mg PO Q8H PRN (Reason: nausea and vomiting) Qty: 10 0RF cyclobenzaprine 10 mg tablet 10 mg PO TID PRN Patient Comments: Take 1 tablet by mouth three times a day as needed for muscle spasm for up to7 days. oxycodone 5 mg tablet 5 mg PO Q6H PRN (Reason: pain (scale score 4-6)) Patient Comments: Take 1 tablet by mouth every 6 hours as needed for pain for up to 7 days. Xarelto 20 mg tablet 20 mg PO QPM Hold Instructions: Resume on 07/09/23. gabapentin 300 mg capsule 300 mg PO Q12H pantoprazole 40 mg tablet,delayed release (DR/EC) 40 mg PO DAILY Patient Comments: TAKE 1 TABLET BY MOUTH DAILY before BREAKFAST. take on empty stomach 30 MINUTES before meal Niferex (Sumalate-Quatrefolic) 150 mg iron- 60 mg-1 mg tablet 1 tab PO DAILY Qty: 60 0RF oxycodone-acetaminophen 5-325 mg tablet 1 tab PO BID PRN (Reason: pain) Primary Care Provider: Linda Parish Referrals: Linda Parish MD [Primary Care Provider] - What to do if you have Problems For any increased pain, shortness of breath, bleeding, nausea or vomiting, chestpain, or any unexpected problems, contact your Primary Care Provider. Call [facility] ([phone]) or report to the closest Emergency Room. Call 911 if necessary. 08/17/23 8391 <Electronically signed by Reid Ponce DO> Cosigner Signature (if applicable): CC: Dr. Linda Parish MD ~ Signed [facility] Work Phone: 1(709) 745-576004-17-2024 Discharge summary Author Herbie Coleman [facility] August 18, 2023 1:50pm Note Date/Time August 17, 2023 4:2 5pm [facility] Medical Records Department [address] [place] [address] Emergency Department Summary 08/17/23 MR#: [id number] Acct: [id number] Name: CHOCO MALDONADO Rep #:[id number] : 1960 62 From: Reid Ponce DO PCP: Dr. Linda Parish MD Status:REG E R Location: ED ADDENDUM by Dr. Herbie Coleman MD on 08/18/23 at 1350 Patient endorsed to me by Dr. Emile Reed as this patient is awaiting transf[facility] for GI bleeding. In review of the chart, patient has been discussed with Dr. Reyes who advised transfer. Patient is having dark stool inhis colostomy that was Hemoccult positive. He was found to have his hemoglobin low at 4, and after transfusion of 2 units of packed red blood cells, his hemoglobin was 6.2. Patient is still awaiting transfer to [facility]. There was a possibility that he would be transferred later in the afternoon withanticipated discharge. His hemoglobin was rechecked and I reviewed it and it isstable at 6.1. Charge nurse discussed the patient with the transfer line and they are unsure when a bed will be available at [facility]. As he has been waiting longer than 6 hours, patient was discussed with Dr. Satci Harris for admission until bed available at outside facility. He is in stable condition. 08/18/23 1350<Electronically signed by Herbie Coleman MD> Cosigner Signature (if applicable): cc: Dr. Linda Parish MD ~* Signed HPI History of Present Illness Chief Complaint: Abn Labs Narrative Narrative: 62-year-old male presenting with anemia. He has a history of this. The patientis on Xarelto currently. Has been back on it for about a month. The patient states that he was seen by Dr. Reyes previously. Had upper and lower endoscopyand a pill study which were all negative for bleeding. He had a CTA which showed a possible hematoma developing around his previous femoropopliteal bypassand there was concern that this could be the source of his anemia. He was sent to [facility] for evaluation of this. He states that they did not determine that this was a source of bleeding. 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 He states that he still has the previous bypass in his leg but also they used a tanana vessel to bypass the leg and he still has some edema and pain in the right leg which has not worsened or improved. Patient states he has some numbness after the surgery which has not changed either. He is on gabapentin for this. Patient's hemoglobin came back at 5 today. He has dark stools in hiscolostomy bag. He does not admit to any abdominal pain. He is not had any fevers. He is not vomiting blood or had any coffee-ground emesis. He feels generally a little bit weak and short of breath and lightheaded with ambulation secondary to his anemia. [facility] Medical History Acute gastrointestinal bleeding Anticoagulant long-term use Arthritis Diverticulitis GERD (gastroesophageal reflux disease) Heart murmur Hypertension Polycythemia Psoriasis Signs and symptoms of anemia Symptomatic anemia Transfusion of blood during current hospitalization Vertigo Home Medications atorvastatin 20 mg tablet 20 mg PO QHS cholesterol 09/17/15 [History Last Taken 06/18/23] nifedipine 30 mg tablet,extended release 30 mg PO DAILY PRN raynauds syndrome 09/17/15 [History Last Taken Unknown] fluoxetine 20 mg capsule 20 mg PO DAILY mental health 09/20/20 [History Last Taken 06/18/23] ixekizumab 80 mg/mL subcutaneous auto-injector (Taltz Autoinjector) [facility] skin health 09/20/20 [History Last Taken 05/24/23] rizatriptan 10 mg disintegrating tablet 10 mg PO PRN PRN Migraine Headache 09/20/20 [History Last Taken Unknown] amitriptyline 50 mg tablet 50 mg PO QHS mental health 01/17/22 [History Last Taken 06/18/23] losartan 25 mg tablet 25 mg PO DAILY blood pressure 01/17/22 [History Last Taken 06/18/23] ondansetron 4 mg disintegrating tablet 4 mg PO Q8H PRN nausea and vomiting #10 tabs 01/17/22 [Rx Last Taken Unknown] cyclobenzaprine 10 mg tablet 10 mg PO TID PRN muscle spasms 06/07/23 [History Last Taken Unknown] gabapentin 300 mg capsule 300 mg PO Q12H neuropathy/nerve pain 06/07/23 [History Last Taken 06/18/23] oxycodone 5 mg tablet 5 mg PO Q6H PRN pain (scale score 4-6) 06/07/23 [History Last Taken 06/19/23 07:30] pantoprazole 40 mg tablet,delayed release 40 mg PO DAILY heart burn 06/07/23 [History Last Taken 06/18/23] rivaroxaban 20 mg tablet (Xarelto) 20 mg PO QPM blood thinner 06/07/23 [History Last Taken 06/18/23 22:00] iron 150 mg-vit C 60 mg-folate 1 [id number] tablet (Niferex (Sumalate-Quatrefolic)) 1 tab PO DAILY supplement #60 tabs 06/10/23 [Rx Last Taken 06/18/23] oxycodone-acetaminophen 5 mg-325 mg tablet 1 tab PO BID PRN pain 06/19/23 [History Last Taken 06/19/23] Allergy/AdvReac Type Severity Reaction Status Date / Time verapamil Allergy Rash Verified 08/17/23 15:32 Surgical History Hx of cardiac catheterization Social History Smoking Status: Former smoker substance use type: does not use ROS ROS ED Constitutional Constitutional ED: Denies chills, fever(s) or sweats Eyes Eyes: Denies blurry vision or change in vision ENT ENT ED: Denies ear pain or sore throat Cardiovascular Cardiovascular: Denies chest pain, palpitations or racing heartbeat Respiratory/Chest Respiratory/Chest: Denies cough, dyspnea or sputum Gastrointestinal Gastrointestinal: Denies abdominal pain, constipation, diarrhea, nausea or vomiting Genitourinary Genitourinary ED: Denies dysuria, hematuria or urinary frequency Musculoskeletal Musculoskeletal: Denies arthralgias, myalgias or neck pain Integumentary Denies abscess, Abrasions or rash Neurologic Neurologic: Denies headache(s), paresthesias or weakness Psychiatric Psychiatric: Denies anxiety, depression, suicidal ideation or suicidal thoughts Endocrine Endocrinology: Denies polydipsia or polyuria EXAM Physical Exam Const Vital Signs: 08/17/23 15:32 08/17/23 15:38 08/17/23 15:38 Temperature 96.9 F L Temperature Source Temporal Pulse Rate 85 77 Respiratory Rate 18 19 H Respiratory Effort Normal Non-Labored Respiratory Depth Respiratory Pattern Normal Blood Pressure 130/58 H 124/64 H Blood Pressure Mean 82 84 Blood Pressure Source Blood Pressure Position Blood Pressure Location Pulse Ox 100 100 Oxygen Delivery Method Room Air Room Air 08/17/23 15:38 08/17/23 16:05 08/17/23 16:30 Temperature Temperature Source Pulse Rate 87 84 Respiratory Rate 25 H 17 Respiratory Effort Normal Non-Labored Respiratory Depth Normal Respiratory Pattern Normal Blood Pressure 140/58 H Blood Pressure Mean 82 Blood Pressure Source Blood Pressure Position Blood Pressure Location Pulse Ox 100 Oxygen Delivery Method Room Air 08/17/23 17:00 08/17/23 17:17 08/17/23 17:32 Temperature 97.7 F L 98.9 F Temperature Source Oral Oral Pulse Rate 82 73 81 Respiratory Rate 15 19 H 17 Respiratory Effort Respiratory Depth Respiratory Pattern Blood Pressure 139/65 H 109/84 H 132/68 H Blood Pressure Mean 85 92 89 Blood Pressure Source Monitor Monitor Blood Pressure Position Supine Sitting Blood Pressure Location Left Forearm Pulse Ox 100 98 100 Oxygen Delivery Method Room Air Room Air 08/17/23 17:30 08/17/23 18:00 08/17/23 18:15 Temperature Temperature Source Pulse Rate 81 86 Respiratory Rate 19 H 18 Respiratory Effort Respiratory Depth Respiratory Pattern Blood Pressure 132/68 H 128/63 H 152/98 H Blood Pressure Mean 84 85 109 Blood Pressure Source Blood Pressure Position Blood Pressure Location Pulse Ox 100 Oxygen Delivery Method 08/17/23 18:17 08/17/23 18:30 08/17/23 19:00 Temperature Temperature Source Pulse Rate 76 82 79 Respiratory Rate 26 H 24 H 24 H Respiratory Effort Respiratory Depth Respiratory Pattern Blood Pressure 129/57 H 123/63 H Blood Pressure Mean 79 78 Blood Pressure Source Blood Pressure Position Blood Pressure Location Pulse Ox 100 99 100 Oxygen Delivery Method 08/17/23 18:32 08/17/23 19:30 08/17/23 19:20 Temperature 98.7 F 97.9 F Temperature Source Temporal Oral Pulse Rate 78 68 71 Respiratory Rate 15 20 H 18 Respiratory Effort Respiratory Depth Respiratory Pattern Blood Pressure 117/68 117/66 138/70 H Blood Pressure Mean 84 83 92 Blood Pressure Source Monitor Monitor Blood Pressure Position Semi-Fowlers Sitting Blood Pressure Location Right Arm Right Arm Pulse Ox 100 100 100 Oxygen Delivery Method Room Air Room Air Room Air 08/17/23 19:55 08/17/23 20:10 08/17/23 21:00 Temperature 98.1 F 97.8 F 97.8 F Temperature Source Oral Oral Oral Pulse Rate 71 64 64 Respiratory Rate 18 16 18 Respiratory Effort Respiratory Depth Respiratory Pattern Blood Pressure 131/72 H 130/65 H 130/65 H Blood Pressure Mean 91 86 86 Blood Pressure Source Monitor Monitor Blood Pressure Position Sitting Semi-Fowlers Blood Pressure Location Right Arm Right Arm Pulse Ox 98 100 100 Oxygen Delivery Method Room Air Room Air Room Air 08/17/23 22:07 08/17/23 22:08 Temperature 98.1 F Temperature Source Oral Pulse Rate 74 72 Respiratory Rate 14 16 Respiratory Effort Respiratory Depth Respiratory Pattern Blood Pressure 140/62 H 130/65 H Blood Pressure Mean 88 86 Blood Pressure Source Monitor Blood Pressure Position Semi-Fowlers Blood Pressure Location Right Arm Pulse Ox 100 100 Oxygen Delivery Method Room Air Room Air Positive well nourished General Appearance ED: NAD HEENT Reports moist mucous membranes Eyes PERRL and EOMs intact bilaterally General Eye ED: Yes pale conjunctiva Chest Wall inspection of chest normal Resp normal respiratory effort Cardio regular rate and regular rhythm GI normal to inspection, nondistended, normoactive bowel sounds GI Narrative: Colostomy bag with black stool. Extremity Extremity Narrative: Surgical site on right lower extremity appears clean, dry, intact. Well-healingsurgical scar on the medial aspect of the left leg. Neuro oriented x3 Sensorium / Orientation: alert Motor Exam: strength 5/5 throughout Psych mental status grossly normal MDM MDM MDM Narrative Medical decision making narrative: 62-year-old male presenting with anemia. His vital signs are stable he is afebrile. CBC today showed a white blood cell count 8.1. Hemoglobin 417. Patientwas typed, screened, crossmatch for 2 units. Renal function and electrolytes appear to be normal. LFTs are unremarkable. Patient was given IV fluids and treated with fentanyl for his pain. He states he does not have his gabapentin nor does he have his oxycodone which he normally takes. At this point him and keeping him a oh. I spoke with Dr. Aceves regarding the patient as his Hemoccultcame back positive from his colostomy bag. He recommended a CTA which was negative. After I spoke with Dr. Reyes again about this he stated that he was concerned that is there is something in the small bowel which she could not get to the recommended transfer. It looks like [facility] [place] [facility]. I spoke with the hospitalist at [facility] regarding the patient and she was unsure whether they would have anything to further evaluate his GI bleed. The transfer line was going to get the GI doctoron the phone to talk to me however it has been a few hours now and have not heard back. I will reinitiate the transfer and talk to them again. Patient is received a couple doses of fentanyl here for pain. He been hemodynamically stable and his blood's been started. Patient has been accepted to [facility] although it is unclear when the bed assignment will be made. Patient will be monitored until transfer can be obtained. Impression: 1. GI bleed 2. Acute blood loss anemia Lab Data Attestation: I reviewed the patient's lab results. Labs: Laboratory Results - last 24 hr 08/17/23 15:55 WBC 8.1 RBC 2.03 L Hgb 4.7 L* Hct 16.6 L MCV 81.8 MCH 23.2 L MCHC 28.3 L RDW Std Deviation 50.7 H RDW Coeff of Eze 17.0 H Plt Count 430 MPV 8.7 Immature Gran % (Auto) 0.500 Neut % (Auto) 72.1 H Lymph % (Auto) 21.5 [place] % (Auto) 3.9 Eos % (Auto) 1.4 Baso % (Auto) 0.6 Absolute Neuts (auto) 5.9 Absolute Lymphs (auto) 1.74 Nucleated RBC % 0.4 Differential Comment SCANNED Diff Path Review May foll Polychromasia 1+ Hypochromasia 2+ Anisocytosis 1+ Target Cells RARE Sodium 139 Potassium 3.8 Chloride 106 Carbon Dioxide 26.0 Anion Gap 7 BUN 19 H Creatinine 1.10 Estim Creat Clear Calc 79.70 Est GFR (MDRD) Af Amer 87 Est GFR (MDRD) Non-Af 72 BUN/Creatinine Ratio 17.3 Glucose 127 H Calcium 8.5 Total Bilirubin 0.40 Direct Bilirubin 0.11 AST 14 L ALT 19 Alkaline Phosphatase 79 Total Protein 7.1 Albumin 3.6 Globulin 3.5 Albumin/Globulin Ratio 1.0 Blood Type O POSITIVE Antibody Screen NEGATIVE Crossmatch See Detail Radiography Diagnostic Testing: Clinical Impression(s) from Imaging Studies Chest/Abdomen/Pelvis CTA 08/17/23 17:07 IMPRESSION: Minor bibasilar interstitial thickening or subsegmental atelectasis. No acute cardiopulmonary pathology Atherosclerotic changes of the thoracic and abdominal aorta without evidence for aneurysm periaortic leak or dissection Postop change status post resection of the rectosigmoid with diverting colostomy in the left lower quadrant . No evidence for small bowel obstruction or other acute abnormality. There is no contrast extravasation within the bowel to suggest site of acute GI hemorrhage at this time However radionuclide tagged red blood cells study would be helpful for further evaluation in this regard if indicated Electronically Signed: Choco Gordon MD at 18:44 EDT Reading Location ID and State: Formerly named [facility] / [place] Tel , Service support , Discharge Plan Triage Chief Complaint: Abn Labs Other Complaint: Shortness of Breath ED Provider: Reid Ponce Dx/Rx/DC Orders Prescriptions: No Action atorvastatin 20 MG tablet 20 mg PO QHS nifedipine 30 MG tablet extended release 30 mg PO DAILY PRN (Reason: raynauds syndrome) Taltz Autoinjector 80 mg/mL auto-injector 80 mg SUBCUT QMONTH rizatriptan 10 mg tablet,disintegrating 10 mg PO PRN PRN (Reason: Migraine Headache) Patient Comments: TAKE 1 TABLET BY MOUTH NEEDED for migraine, may repeat in 2 (TWO) hours ifneeded fluoxetine 20 mg capsule 20 mg PO DAILY amitriptyline 50 mg tablet 50 mg PO QHS losartan 25 mg tablet 25 mg PO DAILY ondansetron 4 mg tablet,disintegrating 4 mg PO Q8H PRN (Reason: nausea and vomiting) Qty: 10 0RF cyclobenzaprine 10 mg tablet 10 mg PO TID PRN Patient Comments: Take 1 tablet by mouth three times a day as needed for muscle spasm for up to7 days. oxycodone 5 mg tablet 5 mg PO Q6H PRN (Reason: pain (scale score 4-6)) Patient Comments: Take 1 tablet by mouth every 6 hours as needed for pain for up to 7 days. Xarelto 20 mg tablet 20 mg PO QPM Hold Instructions: Resume on 07/09/23. gabapentin 300 mg capsule 300 mg PO Q12H pantoprazole 40 mg tablet,delayed release (DR/EC) 40 mg PO DAILY Patient Comments: TAKE 1 TABLET BY MOUTH DAILY before BREAKFAST. take on empty stomach 30 MINUTES before meal Niferex (Sumalate-Quatrefolic) 150 mg iron- 60 mg-1 mg tablet 1 tab PO DAILY Qty: 60 0RF oxycodone-acetaminophen 5-325 mg tablet 1 tab PO BID PRN (Reason: pain) Primary Care Provider: Linda Parish Referrals: Linda Parish MD [Primary Care Provider] - What to do if you have Problems For any increased pain, shortness of breath, bleeding, nausea or vomiting, chestpain, or any unexpected problems, contact your Primary Care Provider. Call [facility] ([phone]) or report to the closest Emergency Room. Call 911 if necessary. 08/17/23 2341 <Electronically signed by Reid Ponce DO> Cosigner Signature (if applicable): CC: Dr. Linda Parish MD ~ Signed [facility] Work Phone: [phone] Miscellaneous Notes* Telephone Encounter - Lilly Antonio MD - 08/17/2023 9:56 PM EDT [facility] Requests Transfer to [facility] 62 yo male with PMH of erythrocytosis/polycythemia following with CRISTOBAL Albert, arterial clot with acute limb ischemia requiring emergent LE bypass graft 12/2022, later clot in graft requiring revision, recanalized and on xarelto, most recently admitted 07/29/[address] Arrington of vascular surgery for balloon angioplasty lf the left common femoral artery, recurrent anemia thought due to GI bleed, neg EGD 06/09/23, neg colonoscopy 06/10/23 (poor prep), and notes refer to eventual capsule endoscopyhaving been performed which did not show overt bleeding, seen in office today by PCP for generalized weakness and dyspnea on exertion, found to have Hb 5.0, and sent to the [facility] ER where Hb is 4.7. Notes black stool in the colostomy, not changed from recent baseline (?iron supplements). GUIAC positive. CTA abd/pelvis negative. ER discussed with [facility] GI Dr. Reyes who recommended transfer to higher level of care. Asked transfer center to connect ER to armed security professional GI for [place] for opinion on utilityof transfer. Dr. Harmon armed security professional and states willing to re-evaluate in consult if patient is transferred. Accepted for additional evaluation for recurrent anemia, possible persistent GI bleed with Dr. Harmon from GI to consult. Discussed with ER that no beds are currently available and patient will need initial transfusion and stabilization, and GI assessment at [facility] awaiting bed availability. They are aware. Lilly Antonio MD 08/17/2023 10PM documented [facility]24 Miscellaneous Notes* Telephone Encounter - Eli Tyson MA - 08/17/2023 3:05 PM EDT Patient informed and verbalized understanding. Going to [facility]. Faxing over labs. Eli Tyson MA * Telephone Encounter - Linda Parish MD - 08/17/2023 2:39 PM EDT His hb came back at 5.0. he is bleeding again, needs to go to ER today. Fax labs and my note from today to Er of his choice documented in this encounterChillic[facility]04-16-2024 History of Present illness Narrative* Atiya Hardwick, RT(R) - 08/17/2023 2:30 PM EDT Radiology Service Progress Note PATIENT NAME: Choco Maldonado DATE OF SERVICE: August 17, 2023 TIME: 2:03 PM PATIENT IDENTITY VERIFICATION COMPLETED USING TWO (2) IDENTIFIERS: Name and Date of confirmedby patient verbally. FALL SCREENING: Has the patient had 2 falls in the last year or 1 fall with injury or currently using an Ambulatory Assistive Device (Walker, Cane, Wheelchair, Crutches, etc.)? No PATIENT GENDER DATA: Male PATIENT RELEVANT IMPLANT DATA REVIEWED: Yes PATIENT PRESENTS WITH AN IMPLANTABLE OR ATTACHED SPOT WASHER: No RADIOLOGY DEPARTMENT: General X-ray: Exam(s) Completed: Chest X-Ray PERIPHERAL IV DATA: Not applicable SIGNED BY: RT Alexandro(R) August 17, 2023 2:03 PM documented in this encounterChillic[facility]04-16-2024 History of Present illness Narrative* Linda Parish MD - 08/17/2023 1:00 PM EDT Patient presents with: Shortness of Breath Weakness HPI: Patient presents today for office visit for mild shortness of breath with exertion and generalized weakness. Mentions arms and legs feeling weak. Overall just doesn't feel right. Ongoing for thelast couple days. Feels like his heart is racing sometimes. Some dizziness. Has had a headache for the last two days. Headache is felt in temples on side of head and behind eyes. Headache is not the worst headache he has had. Denies chest pain. Denies syncopal episodes. Denies facial dropping Denies slurred speech. No confusion. Is back on xarelto after his last angiogram. It had been on hold since his gi bleed. Feeling worse the last few days. Is having some fatigue and malaise. Has a hx of vertigo and has some vertigo. His stools are dark but on iron. No kilo bloody or melana. No chest pain No fever Slightly chilled. No sore throat or ear pain or congestion. No rashes. No cough. No vomiting or diarrhea. No urinary issues No abd pain. Some nausea this afternoon. Has some chronic edema since surgery. No redness or warmth. He does not go back to see gi. He apparently had a capsule endoscopy. Is overdue to see cardiology. Had mild heart disease on previous cath in 2020. Follows with pulmonary/lung cancer screening clinic next month. Again had been hospitalized this year for gi bleeding. Also following closely with vascular surgery. MEDICATIONS: Current Outpatient Medications Medication Sig rivaroxaban (XARELTO) 20 mg tablet Take 1 tablet by mouth daily with dinner. aspirin 81 mg chewable tablet Take 1 tablet by mouth once daily. amitriptyline (ELAVIL) 25 mg tablet Take 2 tablets by mouth daily at bedtime. polyethylene glycol 3350 17 gram packet Take 1 Packet by mouth once daily as needed for constipation. Dissolve dose in 4 - 8 ounces of liquid and take as directed. gabapentin (NEURONTIN) 300 mg capsule Take 1 capsule by mouth every 12 hours. FLUoxetine (PROZAC) 20 mg capsule Take 1 capsule by mouth once daily. pantoprazole DR (PROTONIX) 40 mg tablet Take 1 tablet by mouth daily before breakfast. Take on empty stomach, 1/2 hr before meal. atorvastatin (LIPITOR) 40 mg tablet Take 1 tablet by mouth daily at bedtime. TREMFYA 100 mg/mL AutoInjector every 3 months. fremanezumab-vfrm (AJOVY AUTOINJECTOR) 225 mg/1.5 mL auto-injector Ajovy 225 mg/1.5 mL subcutaneousauto-injector Inject 1.5 mL subcutaneously once a month rimegepant (NURTEC ODT) 75 mg disintegrating tablet Nurtec ODT 75 mg disintegrating tablet Take 1 tab under tongue at onset of migraine. Max 1 in 24 hours. acetaminophen (TYLENOL) 325 mg tablet Take 650 mg by mouth every 6 hours as needed. No current facility-administered medications for this visit. ALLERGIES: ALLERGIES Allergen Reactions Verapamil Rash PAST MEDICAL HISTORY Diagnosis Date Acute diverticulitis Aortic insufficiency Bursitis of elbow left Coronary artery disease mild nonobstructive Diverticulitis Migraines PAD (peripheral artery disease) ([facility]) Palpitations Pinched nerve 11/04/2020 low back Psoriasis Raynaud disease SVT (supraventricular tachycardia) ([facility]) Tobacco abuse PAST SURGICAL HISTORY Procedure Laterality Date COLON SURGERY HX COLONOSCOPY FLX DX W/COLLJ SPEC WHEN PFRMD 05/23/2014 Colonoscopy COLONOSCOPY FLX DX W/COLLJ SPEC WHEN PFRMD 09/24/2017 Colonoscopy COLONOSCOPY FLX DX W/COLLJ SPEC WHEN PFRMD 04/16/2021 ESOPHAGOGASTRODUODENOSCOPY TRANSORAL DIAGNOSTIC 05/23/2014 EGD ESOPHAGOGASTRODUODENOSCOPY TRANSORAL DIAGNOSTIC 08/15/2014 EGD HEMORRHOIDECTOMY INT & XTRNL 2/> COLUMN/FAHEEM 10/01/2017 left posterior PAST SURGICAL HISTORY OF 2008 Pain injections lumbar PAST SURGICAL HISTORY OF 08/03/2022 colostomy PAST SURGICAL HISTORY OF Right 12/2022 right popliteal to tibioperoneal trunk bypass RT/LT HEART CATHETERS 08/09/2020 [facility] FAMILY HISTORY Problem Relation Age of Onset Breast Cancer Mother Diabetes Father Heart Father other (Raynauds) Daughter other (Raynauds) Son Diabetes Maternal Grandfather Social History Tobacco Use Smoking status: Former Packs/day: 1.00 Years: 39.00 Additional pack years: 0.00 Total pack years: 39.00 Types: Cigarettes Start date: 02/11/1981 Quit date: 04/24/2023 Years since quittin.3 Smokeless tobacco: Never Vaping Use Vaping Use: Never used Substance Use Topics Alcohol use: Yes Comment: 3-4 drinks per day 5 days per week Drug use: No Reviewed current medications, allergies, past medical history, surgical history, family history andsocial history today. REVIEW OF SYSTEMS All other reviewed and negative other than HPI. VITALS: BP 118/50 Pulse 72 Ht 188 cm (6' 2) Wt 91.2 kg (201 lb) SpO2 99% BMI 25.81 kg/m BP w/Orthostatic Vitals Date and Time Orthostatic BP Orthostatic Pulse BP Pulse BP Position BP Site BP Cuff Size 08/17/23 1338 118/54 76 -- -- Standing -- -- 08/17/23 1337 132/60 67 -- -- Supine -- -- 08/17/23 1250 -- -- 118/50 72 -- -- -- Last 4 Encounter Wt Readings: Date: Wt: 07/16/2023 88.5 kg (195 lb) 07/14/2023 88.4 kg (194 lb 12.8 oz) 07/14/2023 88 kg (194 lb) 07/01/2023 88 kg (194 lb) PHYSICAL EXAMINATION: General appearance: Well appearing, alert, in no acute distress, well-hydrated, well nourished. Skin: is pale. Unsure if worse. No redness or warmth of leg. Head: Normocephalic, no masses, lesions, tenderness or abnormalities Lungs: Lungs clear to auscultation. No wheezing, rhonchi, rales Heart: RRR without murmur, gallop, or rubs. No ectopy Abdomen: Normal abdominal exam, Abdomen soft, non-tender. Bowel sounds normal. No masses, organomegaly Extremities: chronic trace edema of right leg where he has had surgery. No redness or warmth. Musculoskeletal: No joint swelling, deformity, or tenderness Peripheral pulses: Normal Neuro: negative. ASSESSMENT/PLAN: 1. Malaise - ICD9: 780.79, ICD10: R53.81 (primary diagnosis) - nonspecific symptoms in complicated patient. Can be anything ranging from uti, uri, viral infeciton. Recurrent gi bleed or anemia. Doubt cardiac. Is on anticoagulation. Doubt PE. Leg is benign on appearance and is at his baseling. Will do EKG, xray, urine and blood studies to begin. He is overdue to see his consumer affairs manager. Has appt in pulmonary coming up. Red flags for re-assessment reviewed with patient in detail. - close follow up. - CONSULT TO CARDIOLOGY 2. Aortic valve insufficiency, etiology of cardiac valve disease unspecified - ICD9: 424.1, ICD10: I35.1 - as above 3. PVD (peripheral vascular disease) (HCC) - ICD9: 443.9, ICD10: I73.9 - stable. 4. Primary hypertension - ICD9: 401.9, ICD10: I10 - Controlled - Continue current medications 5. Gastroesophageal reflux disease, unspecified whether esophagitis present - ICD9: 530.81, ICD10: K21.9 - continue meds. 6. Dizziness - ICD9: 780.4, ICD10: R42 - check above including orthostatics. -does show some bp drop. Will do cbc and cmp stat. Red flags for re-assessment reviewed with patient in detail. Has chronic vertigo which complicates the situation. - THYROID STIMULATING HORMONE 7. Migraine with aura, not intractable, without status migrainosus - ICD9: 346.00, ICD10: G43.109 - ? Related to above. 8. SVT (supraventricular tachycardia) (HCC) - ICD9: 427.89, ICD10: I47.10 - has been relatively stable, but again over due for recheck. 9. Polycythemia, secondary - ICD9: 289.0, ICD10: D75.1 - followed by hematology. 10. History of GI bleed - ICD9: V12.79, ICD10: Z87.19 - check cbc stat. Red flags for re-assessment reviewed with patient in detail. - COMPLETE BLOOD COUNT AND DIFFERENTIAL 11. Fatigue, unspecified type - ICD9: 780.79, ICD10: R53.83 - COMPLETE BLOOD COUNT AND DIFFERENTIAL - URINALYSIS, WITH MICROSCOPIC - URINE CULTURE 12. SOB (shortness of breath) - ICD9: 786.05, ICD10: R06.02 -as above. - ECG COMPLETE-nsr. No acute changes. - XR CHEST 2V FRONTAL/LAT - COMPLETE BLOOD COUNT AND DIFFERENTIAL - COMPREHENSIVE METABOLIC PANEL - NT PRO BNP - COMPLETE BLOOD COUNT AND DIFFERENTIAL Linda Parish MD RTO in one week or prn. documented in this encounterCh[facility]04-16-2024 Miscellaneous Notes* Telephone Encounter - Neelam Florentino RN - 08/17/2023 10:46 AM EDT Patient call in for shortness of breath with exertion x 2 days. Nurse Triage assessment completed with protocol recommending for disposition of See PCP in [address] with Dr. Parish today at 1 pm. Care advice reviewed with patient, patient stated understanding. Patient advised to contact office or seek evaluation in urgent care or ER if symptoms persist or gets worse. Reason for Disposition [1] MILD difficulty breathing (e.g., minimal/no SOB at rest, SOB with walking, pulse <100) AND [2] NEW-onset or WORSE than normal [1] MODERATE weakness (i.e., interferes with work, school, normal activities) AND [2] cause unknown(Exceptions: Weakness from acute minor illness or poor fluid intake; weakness is chronic and not worse.) Answer Assessment - Initial Assessment Questions 1. RESPIRATORY STATUS: Short of breath 2. ONSET: A couple of days 3. PATTERN Comes and Goes. 4. SEVERITY: Patient has shortness of breath with exertion. Patient has been better since he is sitting. Patientfeels like heart is racing. 5. RECURRENT SYMPTOM: Yes he has; It has been a couple of years 6. CARDIAC HISTORY: Valve that leaks; Blood clots in right leg 7. LUNG HISTORY: Denies 8. CAUSE: Unsure 9. OTHER SYMPTOMS: Weakness, Dizziness 10. O2 SATURATION MONITOR: O2 Level is currently 99; Heart rate 77 Answer Assessment - Initial Assessment Questions 1. DESCRIPTION: Patient feels fatigue with no energy 2. SEVERITY: Mild 3. ONSET: X 2 days 4. CAUSE: Not drinking enough fluids. 5. NEW MEDICINES: Denies 6. OTHER SYMPTOMS: Shortness of breath with exertion Protocols used: Breathing [id number], Weakness (Generalized) and [id number] documented in this encounterChillicothe [facility]03-15-2024 History of Present illness Narrative* Max Bateman - 07/16/2023 9:48 AM EDT Choco Maldonado 1960 07/16/2023 HISTORY OF PRESENT ILLNESS: Choco Maldonado is a 62 year old male history erythrocytosis, appearedsecondary. JAK2 negative Recent divertiuclitis, colectomy PVD In [place] December 2022, had arterial clot, needed a bypass graft. Came back to [place], found to have clot in graft. Now on Xarelto after recanalized Now quite anemic Quit smoking 04/27/2023 Pt was being seen by hematology initially for polycythemia however he has been anemic at most recent visits. Since last OV Jan 2023 he was admitted to [facility] for possible GI bleed. He notes that he has had several issues since vascular surgery beginning of jun. Hx of PAD, Recent arterial clot dx afterlong drive to [place], presented to ED with limb ischemia, now failed graft all in the last year. Sharp knee pains since surgery, poor wound healing, swelling. Follows closely with vascular surgery. Hgb dropped to 6.7. He received 3 units PRBCs per spouse while admitted. Has ostomy for diverticulitis. C-scope and EGD performed during 06/2023 admission without clear evidence of bleed. C-scope notes poor prep. Recommended capsule. He denies overt sys of bleeding. Stools in ostomy have been darker Interval History: Mr. Maldonado presents today with spouse for lab check and follow up of anemia. Continues to have issues 2/2 to arterial graft. Follows closely with vasc surg. Planned procedure next week. Incision healing. Bilateral extremities warm to touch. Edema improved. He was recently told that there is a hx offactor V mutation in his family. 1st cousin with confirmed factor V. Father had hx of blood clots, PAD, toe amputations. He is questioning if Factor V contributed to clot, expressed concern for his children. Reviewed risk factors. Started on PO iron during admission Ferrex 150 at night. Seemed to tolerate. Follows with GI. Capsule scope without overt bleeding. Denies BRB. He denies stool per rectum. Stool in ostomy is darker since he started PO iron. Would question how much he is absorbing with hx of abd surg and ostomy. Denies fevers, chills, NS. No SOB, CP. Denies PASTOR, dizziness. Restarted blood thinner on Wednesday. Appetite is good. No unintentional weight loss. No ice cravings or PICA. Notes RLS and fatigue. PAST MEDICAL HISTORY Diagnosis Date Acute diverticulitis Aortic insufficiency Bursitis of elbow left Coronary artery disease mild nonobstructive Diverticulitis Migraines PAD (peripheral artery disease) ([facility]) Palpitations Pinched nerve 11/04/2020 low back Psoriasis Raynaud disease SVT (supraventricular tachycardia) ([facility]) Tobacco abuse PAST SURGICAL HISTORY Procedure Laterality Date COLONOSCOPY FLX DX W/COLLJ SPEC WHEN PFRMD 05/23/2014 Colonoscopy COLONOSCOPY FLX DX W/COLLJ SPEC WHEN PFRMD 09/24/2017 Colonoscopy COLONOSCOPY FLX DX W/COLLJ SPEC WHEN PFRMD 04/16/2021 ESOPHAGOGASTRODUODENOSCOPY TRANSORAL DIAGNOSTIC 05/23/2014 EGD ESOPHAGOGASTRODUODENOSCOPY TRANSORAL DIAGNOSTIC 08/15/2014 EGD HEMORRHOIDECTOMY INT & XTRNL 2/> COLUMN/FAHEEM 10/01/2017 left posterior PAST SURGICAL HISTORY OF 2008 Pain injections lumbar PAST SURGICAL HISTORY OF 08/03/2022 colostomy PAST SURGICAL HISTORY OF Right 12/2022 right popliteal to tibioperoneal trunk bypass RT/LT HEART CATHETERS 08/09/2020 [facility] FAMILY HISTORY Problem Relation Age of Onset Breast Cancer Mother Diabetes Father Heart Father other (Raynauds) Daughter other (Raynauds) Son Diabetes Maternal Grandfather Social History Tobacco Use Smoking status: Former Packs/day: 1.00 Years: 39.00 Additional pack years: 0.00 Total pack years: 39.00 Types: Cigarettes Start date: 02/11/1981 Quit date: 04/24/2023 Years since quittin.2 Smokeless tobacco: Never Vaping Use Vaping Use: Never used Substance Use Topics Alcohol use: Yes Comment: 3-4 drinks per day 5 days per week Drug use: No ALLERGIES: ALLERGIES Allergen Reactions Verapamil Rash CURRENT OUTPATIENT MEDICATIONS: aspirin 81 mg chewable tablet Take 1 tablet by mouth once daily. amitriptyline (ELAVIL) 25 mg tablet Take 2 tablets by mouth daily at bedtime. polyethylene glycol 3350 17 gram packet Take 1 Packet by mouth once daily as needed for constipation. Dissolve dose in 4 - 8 ounces of liquid and take as directed. gabapentin (NEURONTIN) 300 mg capsule Take 1 capsule by mouth every 12 hours. FLUoxetine (PROZAC) 20 mg capsule Take 1 capsule by mouth once daily. pantoprazole DR (PROTONIX) 40 mg tablet Take 1 tablet by mouth daily before breakfast. Take on empty stomach, 1/2 hr before meal. atorvastatin (LIPITOR) 40 mg tablet Take 1 tablet by mouth daily at bedtime. TREMFYA 100 mg/mL AutoInjector every 3 months. fremanezumab-vfrm (AJOVY AUTOINJECTOR) 225 mg/1.5 mL auto-injector Ajovy 225 mg/1.5 mL subcutaneousauto-injector Inject 1.5 mL subcutaneously once a month rimegepant (NURTEC ODT) 75 mg disintegrating tablet Nurtec ODT 75 mg disintegrating tablet Take 1 tab under tongue at onset of migraine. Max 1 in 24 hours. acetaminophen (TYLENOL) 325 mg tablet Take 650 mg by mouth every 6 hours as needed. gabapentin (NEURONTIN) 100 mg capsule TAKE 1 CAPSULE BY MOUTH THREE TIMES DAILY FOR 28 DAYS (Patient not taking: Reported on 07/01/2023) REVIEW OF SYSTEMS: GENERAL: No fever, night sweats, weight loss or malaise. All other reviewed and negative other than HPI. All systems reviewed on 07/16/2023 with pertinent positives and negatives as outlined in the interval history. PHYSICAL EXAMINATION: VITAL SIGNS: BP 151/78 Pulse 73 Temp 97.2 Wt 195 lb (88.5kg) SpO2 98% GENERAL APPEARANCE: Well appearing, in no acute distress, alert and oriented x3, well-hydrated, well nourished. HEENT: Normocephalic, no sclera icterus, external ears normal Neck: Supple, no JVD. Chest: Clear bilaterally, no wheezes, not labored. Heart: Normal S1 and S2, no abnormal sounds Abdomen: Soft, nontender, nondistended Extremities: L LE edema, at surgical incision. Improving Poorly healing surgical scar, improved today Neurological: Grossly intact Skin: Warm and dry with no rashes or ulcerations. Hematologic: no bruising or petechiae. Psychiatric: Alert and oriented x3. Emotional well-being assessment was performed. Pt denies depression, distress, and or problems with coping or adjustment. I have performed the physical exam today (07/16/2023) and have edited the note to correlate with current findings. CLINICAL IMPRESSION/PLAN: Secondary erythrocytosis (initial dx), anemic now likely secondary to GI bleed. - reviewed labs in detail today. Thrombocytosis likely reactionary to JOSE, infection - iron deficient - started on PO ferrex 150mg during jun 2023 admission - endorses RLS - ? Absorption with hx of GI surg, ostomy. Discussed may need to consider low dose replacement of IV iron. - consider cautiously replacing iron due to hx of secondary polycythemia, however since initial dx he has quit smoking. No significant resp issues. No TRT and workup for polycythemia vera negative. - labs have improved since last visit, hgb 9.5 06/2023 - Continue to follow with GI - CBC, iron studies, ferritin, factor V today, will call with results PAD - reviewed risk factors, differences between arterial and venous clots today - continue to follow with vascular surgery - 1st degree relatives with known clots. - pt requesting factor V testing, reviewed that positivity would not change current course of tx atthis time. If positive, consider ref to vascular med. - no indication for complete hypercoag work up at this time, restarted on anticoagulation, testing would not be reliable. Reviewed s/s to present to ED including but not limited to changes in color and temperature of extremities, edema, bleeding. Advised to call with any questions or concerns in the meantime. RTC for OV with cbc, iron studies in 3 months Max Bateman APRN.SIGNAL SUPERVISOR I spent >35 minutes in the visit, with more than 50% of the total avjp-kw-zoke time of the visitin counseling / coordination of care. Portions of this note including HPI, ROS, impression/plan may have been copied forward as to provide important historical information essential in contributing to medical decision making. Documentation has been reviewed and edited as necessary to support clinical decision making for today's visit and to reflect my own independent evaluation of this patient. documented in this encounterChillic[facility]03-15-2024 Nurse Note* Salma Castorena LPN - 07/16/2023 9:36 AM EDT Est. Pt, 4 week f/u Salma Castorena LPN documented in this encounterChillic[facility]03-13-2024 Miscellaneous Notes* Telephone Encounter - Juana Henry RN - 07/14/2023 1:20 PM EDT Patient seen by today documented in this encounterChillic[facility]03-13-2024 History of Present illness Narrative* Christiana Arrington MD - 07/14/2023 9:57 AM EDT Images from the original note were not included. [facility] [place] DEPARTMENT OF VASCULAR SURGERY OUTPATIENT VISIT DATE July 14, 2023 OUTPATIENT VISIT TYPE ESTABLISHED SERVICE DATE: 07/14/2023 SERVICE TIME: 9:59 AM PRIMARY CARE PHYSICIAN: Linda Parish MD HISTORY OF PRESENT ILLNESS: Mr. Maldonado is a 62 year old male who presents today for a vascular surgery follow-up visit Surgery/Procedure Date: 05/14/2023 Surgeon(s)/Proceduralist(s) and Mash Filter Cloth Changer(s): * Christiana Arrington MD - Primary Procedure(s): Redo right above knee popliteal to posterior tibial bypass with reversed right saphenous vein Ligation of prior fem-tp trunk bypass right saphenous vein harvest Completion angiogram Surgery/Procedure Date: 04/29/2023 Surgeon(s)/Proceduralist(s) and Mash Filter Cloth Changer(s): * Cecille Sarabia MD - Primary Procedure Performed: 1) Diagnostic angiogram of the RIGHT lower extremity 2) Penumbra suction thrombectomy with CAT 7 3) 4mm DCB of the distal PTFE-TP trunk anastomosis 4) 3mm POBA of the distal TPT into the PT 4) Completion angiogram 5) Placement of a Proglide percutaneous closure device in the LEFT groin. Prior bypass w tapered 4-7mm ptfe fem-bk pop, occluded within months of insertion prompting lysis, now s/p fem-pt bypass w vein Stopped ac due to gi bleed, hosptilaized 06/19/23-06/25/23 Noted at that time to have purulent drainage and started on doxycycline Seen by Dr Alonso Recurrence of pain in his calf similar to prior episodes of occlusion PAST MEDICAL HISTORY Diagnosis Date Acute diverticulitis Aortic insufficiency Bursitis of elbow left Coronary artery disease mild nonobstructive Diverticulitis Migraines PAD (peripheral artery disease) ([facility]) Palpitations Pinched nerve 11/04/2020 low back Psoriasis Raynaud disease SVT (supraventricular tachycardia) ([facility]) Tobacco abuse PAST SURGICAL HISTORY Procedure Laterality Date COLONOSCOPY FLX DX W/COLLJ SPEC WHEN PFRMD 05/23/2014 Colonoscopy COLONOSCOPY FLX DX W/COLLJ SPEC WHEN PFRMD 09/24/2017 Colonoscopy COLONOSCOPY FLX DX W/COLLJ SPEC WHEN PFRMD 04/16/2021 ESOPHAGOGASTRODUODENOSCOPY TRANSORAL DIAGNOSTIC 05/23/2014 EGD ESOPHAGOGASTRODUODENOSCOPY TRANSORAL DIAGNOSTIC 08/15/2014 EGD HEMORRHOIDECTOMY INT & XTRNL 2/> COLUMN/FAHEEM 10/01/2017 left posterior PAST SURGICAL HISTORY OF 2008 Pain injections lumbar PAST SURGICAL HISTORY OF 08/03/2022 colostomy PAST SURGICAL HISTORY OF Right 12/2022 right popliteal to tibioperoneal trunk bypass RT/LT HEART CATHETERS 08/09/2020 [facility] SOCIAL HISTORY Social History Tobacco Use Smoking status: Former Packs/day: 1.00 Years: 39.00 Additional pack years: 0.00 Total pack years: 39.00 Types: Cigarettes Start date: 02/11/1981 Quit date: 04/24/2023 Years since quittin.2 Smokeless tobacco: Never Vaping Use Vaping Use: Never used Substance Use Topics Alcohol use: Yes Comment: 3-4 drinks per day 5 days per week Drug use: No MEDICATIONS: aspirin 81 mg chewable tablet Take 1 tablet by mouth once daily. amitriptyline (ELAVIL) 25 mg tablet Take 2 tablets by mouth daily at bedtime. polyethylene glycol 3350 17 gram packet Take 1 Packet by mouth once daily as needed for constipation. Dissolve dose in 4 - 8 ounces of liquid and take as directed. gabapentin (NEURONTIN) 300 mg capsule Take 1 capsule by mouth every 12 hours. FLUoxetine (PROZAC) 20 mg capsule Take 1 capsule by mouth once daily. pantoprazole DR (PROTONIX) 40 mg tablet Take 1 tablet by mouth daily before breakfast. Take on empty stomach, 1/2 hr before meal. atorvastatin (LIPITOR) 40 mg tablet Take 1 tablet by mouth daily at bedtime. TREMFYA 100 mg/mL AutoInjector every 3 months. fremanezumab-vfrm (AJOVY AUTOINJECTOR) 225 mg/1.5 mL auto-injector Ajovy 225 mg/1.5 mL subcutaneousauto-injector Inject 1.5 mL subcutaneously once a month rimegepant (NURTEC ODT) 75 mg disintegrating tablet Nurtec ODT 75 mg disintegrating tablet Take 1 tab under tongue at onset of migraine. Max 1 in 24 hours. acetaminophen (TYLENOL) 325 mg tablet Take 650 mg by mouth every 6 hours as needed. gabapentin (NEURONTIN) 100 mg capsule TAKE 1 CAPSULE BY MOUTH THREE TIMES DAILY FOR 28 DAYS (Patient not taking: Reported on 07/01/2023) ALLERGIES: ALLERGIES Allergen Reactions Verapamil Rash PHYSICAL EXAM: Ht 180.3 cm (5' 11) Wt 88 kg (194 lb) BMI 27.06 kg/m General: Alert and oriented Extremities: No deformity, no edema or tenderness, no joint swelling or clubbing. Vascular: palpable bypass in R medial knee Diagnostic tests reviewed for today's visit: Most recent labs Most recent imaging 07/07/23 RABI 0.46, LABI 1.12 07/07/23 duplex: proximal anastamosis 5-99% stenosis, but remains patent 06/09/23 osh study report: RABI 1.10, LABI 1.23, read by Emile Hernandez 06/09/23 osh study report: no stenosis in bypass, elevated velocities IMPRESSION: Mr. Maldonado is a 62 year old male s/p RLE fem-pt bypass w stensosi . PLAN and RECOMMENDATIONS: Surgeryr ecommened: RLE angiogram, possible intervention Risks, benefits, alternatives and personnel discussed with patient who consents to proceed. At riskfor limb loss. Discuss w patient SIGNATURE: Christiana Arrington MD PATIENT NAME: Choco Maldonado DATE: July 14, 2023 TIME: 9:59 AM documented in this encounterChillic[facility]03-04-2024 Miscellaneous Notes* Telephone Encounter - Rebecca Salgado Ma - 07/05/2023 8:27 AM EST Pt reviewed message * Telephone Encounter - Camille Conrad APRN.CNS - 07/01/2023 5:14 PM EST [employer] message sent to patient regarding his hemoglobin, iron, iron stores, B12, magnesium, CMP. Hemoglobin when he left the hospital was 7.7 is now up to 9.5. Significant improvement. Iron level is 28. documented in this encounterChillicothe Hospital02-29-2024 Instructions* Patient Instructions* Camille Conrad APRN.CNS - 07/01/2023 10:04 AM EST 1) Increase amitriptyline to 50mg (2 of the 25mg tablets) at bedtime to help with sleep 2) Check labs today 3) Follow up 3m documented in this encounterChillicothe Hospital02-29-2024 History of Present illness Narrative* Camille Conrad APRN.CNS - 07/01/2023 9:40 AM EST This is a 62 year old male who presents today with: No chief complaint on file. HISTORY OF PRESENT ILLNESS: Choco Maldonado is a 62 year old male. No chief complaint on file. This is a hospital follow-up. Patient was admitted to [facility] on June 19 anddischarged on June 25, 2023: Admission diagnosis was gastrointestinal hemorrhage. Acute on chronic anemia due to GI bleed. Patient was having melena stools. He was treated with IV pantoprazole. Had an EGD which was negative for any acute pathology. Gastroenterology is on board. He is on iron replacement which could be contribut ing to the black stools. He had a colonoscopy showing widely patent and colostomy with healthy appearing mucosa in the sigmoid colon one 8 mm polyp in the ascending colon which was removed with a hotsnare. He will have capsule endoscopy as outpatient by gastroenterology. Patient has a past medical history of severe diverticulitis complicated with perforation status post sigmoidectomy and colonoscopy with colostomy in place. He was admitted through the emergency room with complaints of acute on chronic anemia. Dark stools in his colostomy bag. On admission hemoglobin was 5.8. Transfused with 2 units packed red blood cells. *Patient does have follow-up with Dr. Reyes* Right foot have 1+ pedal edema. Duplex of the lower extremities negative for DVT. He recently had vredo of right kegow-vmi-erin popliteal to posterior tibial bypass with reverse saphenous vein graftand ligation of prior femoral-popliteal trunk bypass in May 2023 at [facility] and had been on Xarelto and aspirin. The incision site had mild purulent discharge on admission so he was placed on p.o. doxycycline. Per gastroenterology aspirin was stopped and Xarelto was continued. June 25, 2023: WBC 7.3, hemoglobin 7.5, hematocrit 25.2, platelet count 570 Sodium 140, potassium 3.7, BUN 7, creatinine 1.02, glucose 122 Stool was positive for occult blood. History of Raynaud's syndrome without gangrene, peripheral vascular disease, psoriasis, arthritis, diverticulitis, GERD, hypertension, polycythemia. Feeling tired . Taking antibiotic for lower leg incision. Saw vascular surgeon yesterday and she told him to continue aspirin but stop Xarelto. PAST MEDICAL HISTORY: PAST MEDICAL HISTORY Diagnosis Date Acute diverticulitis Aortic insufficiency Bursitis of elbow left Coronary artery disease mild nonobstructive Diverticulitis Migraines PAD (peripheral artery disease) (HCC) Palpitations Pinched nerve 11/04/2020 low back Psoriasis Raynaud disease SVT (supraventricular tachycardia) (HCC) Tobacco abuse PAST SURGICAL HISTORY Procedure Laterality Date COLONOSCOPY FLX DX W/COLLJ SPEC WHEN PFRMD 05/23/2014 Colonoscopy COLONOSCOPY FLX DX W/COLLJ SPEC WHEN PFRMD 09/24/2017 Colonoscopy COLONOSCOPY FLX DX W/COLLJ SPEC WHEN PFRMD 04/16/2021 ESOPHAGOGASTRODUODENOSCOPY TRANSORAL DIAGNOSTIC 05/23/2014 EGD ESOPHAGOGASTRODUODENOSCOPY TRANSORAL DIAGNOSTIC 08/15/2014 EGD HEMORRHOIDECTOMY INT & XTRNL 2/> COLUMN/FAHEEM 10/01/2017 left posterior PAST SURGICAL HISTORY OF 2008 Pain injections lumbar PAST SURGICAL HISTORY OF 08/03/2022 colostomy PAST SURGICAL HISTORY OF Right 12/2022 right popliteal to tibioperoneal trunk bypass RT/LT HEART CATHETERS 08/09/2020 [facility] ALLERGIES Verapamil MEDICATIONS Current Outpatient Medications Medication Sig doxycycline hyclate (VIBRAMYCIN) 100 mg capsule Take 1 capsule by mouth two times a day for 10 days. oxyCODONE IR (ROXICODONE) 5 mg immediate release tablet Take 1 tablet by mouth every 6 hours as needed for pain for up to 7 days. cyclobenzaprine (FLEXERIL) 10 mg tablet Take 1 tablet by mouth three times a day as needed for muscle spasm for up to 7 days. rivaroxaban (XARELTO) 2.5 mg tablet Take 1 tablet by mouth once daily. polyethylene glycol 3350 17 gram packet Take 1 Packet by mouth once daily as needed for constipation. Dissolve dose in 4 - 8 ounces of liquid and take as directed. rivaroxaban (XARELTO) 20 mg tablet Take 1 tablet by mouth daily with dinner. (Patient not taking: Reported on 06/17/2023) gabapentin (NEURONTIN) 300 mg capsule Take 1 capsule by mouth every 12 hours. FLUoxetine (PROZAC) 20 mg capsule Take 1 capsule by mouth once daily. gabapentin (NEURONTIN) 100 mg capsule TAKE 1 CAPSULE BY MOUTH THREE TIMES DAILY FOR [address] (PROTONIX) 40 mg tablet Take 1 tablet by mouth daily before breakfast. Take on empty stomach, 1/2 hr before meal. atorvastatin (LIPITOR) 40 mg tablet Take 1 tablet by mouth daily at bedtime. aspirin 81 mg chewable tablet Take 81 mg by mouth once daily. TREMFYA 100 mg/mL AutoInjector every 3 months. amitriptyline (ELAVIL) 25 mg tablet Take 1 tablet by mouth daily at bedtime. fremanezumab-vfrm (AJOVY AUTOINJECTOR) 225 mg/1.5 mL auto-injector Ajovy 225 mg/1.5 mL subcutaneousauto-injector Inject 1.5 mL subcutaneously once a month rimegepant (NURTEC ODT) 75 mg disintegrating tablet Nurtec ODT 75 mg disintegrating tablet Take 1 tab under tongue at onset of migraine. Max 1 in 24 hours. acetaminophen (TYLENOL) 325 mg tablet Take 650 mg by mouth every 6 hours as needed. No current facility-administered medications for this visit. FAMILY HISTORY Problem Relation Age of Onset Breast Cancer Mother Diabetes Father Heart Father other (Raynauds) Daughter other (Raynauds) Son Diabetes Maternal Grandfather Social History Tobacco Use Smoking status: Former Packs/day: 1.00 Years: 39.00 Additional pack years: 0.00 Total pack years: 39.00 Types: Cigarettes Start date: 02/11/1981 Quit date: 04/24/2023 Years since quittin.1 Smokeless tobacco: Never Vaping Use Vaping Use: Never used Substance Use Topics Alcohol use: Yes Comment: 3-4 drinks per day 5 days per week Drug use: No REVIEW OF SYSTEMS GENERAL: + weight gain, + malaise, no fevers/chills HEENT: Negative for frequent or significant headaches, No changes in hearing or vision. NECK: Negative for lumps, goiter, pain and significant neck swelling RESPIRATORY: Negative for cough, hemoptysis, wheezing, + dyspnea or shortness of breath CARDIOVASCULAR: Negative for chest pain, + right leg swelling- post-op, no orthopnea, no palpitations GI: No nausea, vomiting, or diarrhea/constipation. No hematochezia/melena. No heartburn or reflux symptoms. : No history of dysuria, frequency or incontinence MUSCULOSKELETAL: Negative for joint pain or swelling except right knee. Low back aches SKIN: Negative for lesions, rash, and itching- psoriasis under control NEURO: No history of headaches, syncope, paralysis, seizures or tremors MOOD: Negative for depression, anxiety, or suicidal ideation. EXAM: There were no vitals taken for this visit. PHYSICAL EXAM: General Appearance: Thin and Thin, fatigued appearing. Skin: right lower leg incision well approximated, scabbed over, no drainage. Head: Normocephalic, no masses, lesions, tenderness or abnormalities. Lungs: Lungs clear to auscultation. No wheezing, rhonchi, rales.. Heart: S1S2, + S4, soft ARACELI @ sternal border. Abdomen: Normal abdominal exam, Abdomen soft, non-tender. Bowel sounds normal. No masses, organomegaly, colostomy draining dark stool. Musculoskeletal: right leg slightly swollen, 1+ and walks w/ cane LABS: today ASSESSMENT/PLAN: 1. Peripheral artery disease (HCC) - ICD9: 443.9, ICD10: I73.9 (primary diagnosis) Stable- saw vascular yesterday - ASPIRIN 81 MG CHEWABLE TABLET continued - She stopped DOAC d/t anemia - To finish doxycycline as at home 2. Iron deficiency anemia due to chronic blood loss - ICD9: 280.0, ICD10: D50.0 - Check CBC, iron, and B12 - On iron replacement - Seeing Dr. Reyes tomorrow for capsule camera Discussed treatment plan and patient voices understanding. Patient's questions answered appropriately. Medications and potential side effects were discussed and patient voices understanding. Return to the office as scheduled or as needed for worsening/no improvement. Camille Conrad APRN.CNS The patient indicates understanding of these issues and agrees with the plan. documented in this [facility] History of Present illness Narrative* Rosi Alonso DO - 06/29/2023 1:26 PM EST Images from the original note were not included. [facility] [place] DEPARTMENT OF VASCULAR SURGERY OUTPATIENT VISIT DATE June 29, 2023 OUTPATIENT VISIT TYPE ESTABLISHED SERVICE DATE: 06/29/2023 SERVICE TIME: 5:04 PM PRIMARY CARE PHYSICIAN: Linda Parish MD HISTORY OF PRESENT ILLNESS: Mr. Maldonado is a 62 year old male who presents today for a vascular surgery follow-up visit after right lower extremity bypass. He was recently admitted to [facility] for GI bleed. His anticoagulation is on hold until he undergoes capsule endoscopy. He continues to significant neuropathic pain in right leg PAST MEDICAL HISTORY Diagnosis Date Acute diverticulitis Aortic insufficiency Bursitis of elbow left Coronary artery disease mild nonobstructive Diverticulitis Migraines PAD (peripheral artery disease) ([facility]) Palpitations Pinched nerve 11/04/2020 low back Psoriasis Raynaud disease SVT (supraventricular tachycardia) ([facility]) Tobacco abuse PAST SURGICAL HISTORY Procedure Laterality Date COLONOSCOPY FLX DX W/COLLJ SPEC WHEN PFRMD 05/23/2014 Colonoscopy COLONOSCOPY FLX DX W/COLLJ SPEC WHEN PFRMD 09/24/2017 Colonoscopy COLONOSCOPY FLX DX W/COLLJ SPEC WHEN PFRMD 04/16/2021 ESOPHAGOGASTRODUODENOSCOPY TRANSORAL DIAGNOSTIC 05/23/2014 EGD ESOPHAGOGASTRODUODENOSCOPY TRANSORAL DIAGNOSTIC 08/15/2014 EGD HEMORRHOIDECTOMY INT & XTRNL 2/> COLUMN/FAHEEM 10/01/2017 left posterior PAST SURGICAL HISTORY OF 2008 Pain injections lumbar PAST SURGICAL HISTORY OF 08/03/2022 colostomy PAST SURGICAL HISTORY OF Right 12/2022 right popliteal to tibioperoneal trunk bypass RT/LT HEART CATHETERS 08/09/2020 [facility] SOCIAL HISTORY Social History Tobacco Use Smoking status: Former Packs/day: 1.00 Years: 39.00 Additional pack years: 0.00 Total pack years: 39.00 Types: Cigarettes Start date: 02/11/1981 Quit date: 04/24/2023 Years since quittin.1 Smokeless tobacco: Never Vaping Use Vaping Use: Never used Substance Use Topics Alcohol use: Yes Comment: 3-4 drinks per day 5 days per week Drug use: No MEDICATIONS: rivaroxaban (XARELTO) 2.5 mg tablet Take 1 tablet by mouth once daily. polyethylene glycol 3350 17 gram packet Take 1 Packet by mouth once daily as needed for constipation. Dissolve dose in 4 - 8 ounces of liquid and take as directed. gabapentin (NEURONTIN) 300 mg capsule Take 1 capsule by mouth every 12 hours. FLUoxetine (PROZAC) 20 mg capsule Take 1 capsule by mouth once daily. gabapentin (NEURONTIN) 100 mg capsule TAKE 1 CAPSULE BY MOUTH THREE TIMES DAILY FOR [address] (PROTONIX) 40 mg tablet Take 1 tablet by mouth daily before breakfast. Take on empty stomach, 1/2 hr before meal. atorvastatin (LIPITOR) 40 mg tablet Take 1 tablet by mouth daily at bedtime. aspirin 81 mg chewable tablet Take 81 mg by mouth once daily. TREMFYA 100 mg/mL AutoInjector every 3 months. amitriptyline (ELAVIL) 25 mg tablet Take 1 tablet by mouth daily at bedtime. fremanezumab-vfrm (AJOVY AUTOINJECTOR) 225 mg/1.5 mL auto-injector Ajovy 225 mg/1.5 mL subcutaneousauto-injector Inject 1.5 mL subcutaneously once a month rimegepant (NURTEC ODT) 75 mg disintegrating tablet Nurtec ODT 75 mg disintegrating tablet Take 1 tab under tongue at onset of migraine. Max 1 in 24 hours. acetaminophen (TYLENOL) 325 mg tablet Take 650 mg by mouth every 6 hours as needed. doxycycline hyclate (VIBRAMYCIN) 100 mg capsule Take 1 capsule by mouth two times a day for 10 days. oxyCODONE IR (ROXICODONE) 5 mg immediate release tablet Take 1 tablet by mouth every 6 hours as needed for pain for up to 7 days. cyclobenzaprine (FLEXERIL) 10 mg tablet Take 1 tablet by mouth three times a day as needed for muscle spasm for up to 7 days. rivaroxaban (XARELTO) 20 mg tablet Take 1 tablet by mouth daily with dinner. (Patient not taking: Reported on 06/17/2023) ALLERGIES: ALLERGIES Allergen Reactions Verapamil Rash PHYSICAL EXAM: BP 123/72 (BP Site: Right Arm, BP Position: Sitting, BP Cuff Size: Regular Adult) Pulse 95 [id number]% Gen- no distress Ext- triphasic pt signal, excellent pulse in bypass, mild redness along incision on proximal calf with areas of skin dehiscence, proximal incision is well healed and previous erythema resolved. Diagnostic tests reviewed for today's visit: Most recent labs Most recent imaging IMPRESSION: Mr. Maldonado is a 62 year old male with peripheral arterial disease . PLAN and RECOMMENDATIONS: Recommend follow up as scheduled with Dr. Arrington next week Will send additional prescription for antibiotics as he has some remaining redness and history of PTFE bypass. He grew staph on previous culture Renewed pain medications as he continues to have significant pain and has follow up appointment with pain management. He missed previous appointment due to hospitalization for GI bleed SIGNATURE: Rosi Alonso DO PATIENT NAME: Choco Maldonado DATE: June 29, 2023 TIME: 5:04 PM documented in this encounterCh[facility]02-23-[facility]24 Consult note Author Main Sewell [facility] June 25, 2023 1:08pm Note Date/Time June 25, 2023 1:08pm [facility] Medical Records Department [address] [place] [id number] Counseling Note - Pharmacy 06/25/23 1308 MR#: [id number] Acct: [id number] Name: CHOCO MALDONADO Rep #:[id number] : 1960 62 From: Main Sewell PCP: Dr. Linda Parish MD Status:ADM I N Y Location: [place] [address] Pharmacy [place] Med Reconciliation Pharmacy Service has performed discharge medication reconciliation for this patient. The patient's discharge medication list was reviewed for discrepancies and discrepancies were resolved. Medications at Discharge Home Medications atorvastatin 20 mg tablet 20 mg PO QHS cholesterol 09/17/15 nifedipine 30 mg tablet,extended release 30 mg PO DAILY PRN raynauds syndrome 09/17/15 fluoxetine 20 mg capsule 20 mg PO DAILY mental health 09/20/20 ixekizumab 80 mg/mL subcutaneous auto-injector (Taltz Autoinjector) [facility] 09/20/20 rizatriptan 10 mg disintegrating tablet 10 mg PO PRN PRN Migraine Headache 09/20/20 amitriptyline 50 mg tablet 50 mg PO QHS mental health 01/17/22 losartan 25 mg tablet 25 mg PO DAILY blood pressure 01/17/22 ondansetron 4 mg disintegrating tablet 4 mg PO Q8H PRN nausea and vomiting #10 tabs 01/17/22 cyclobenzaprine 10 mg tablet 10 mg PO TID PRN muscle spasms 06/07/23 gabapentin 300 mg capsule 300 mg PO Q12H neuropathy/nerve pain 06/07/23 oxycodone 5 mg tablet 5 mg PO Q6H PRN pain (scale score 4-6) 06/07/23 pantoprazole 40 mg tablet,delayed release 40 mg PO DAILY heart burn 06/07/23 rivaroxaban 20 mg tablet (Xarelto) 20 mg PO QPM blood thinner 06/07/23 iron 150 mg-vit C 60 mg-folate 1 [id number] tablet (Niferex (Sumalate-Quatrefolic)) 1 tab PO DAILY supplement #60 tabs 06/10/23 oxycodone-acetaminophen 5 mg-325 mg tablet 1 tab PO BID PRN pain 06/19/23 06/25/23 1308 <Electronically signed by Main anderson> Date _ Main Reynoldsigner Signature (if applicable): Date CC: ~ Signed [facility] Work Phone: [phone] 620-885302-23-2024 Discharge summary Author [facility] June 25, 2023 2:31pm Note Date/Time June 25, 2023 12:55pm [facility] Medical Records Department [address] [place] [address] Discharge Summary 06/25/23 1253 MR#: [id number] Acct: [id number] Name: CHOCO MALDONADO Rep #:[id number] : 1960 62 From: Pascale Soto MD PCP: Dr. Linda Parish MD Status:ADM I N Location: [place] [address] Providers Date of Admission: 06/19/23 Date of Discharge: 06/25/23 Primary Care Physician: Dr. Linda Parish MD Consultations 06/19/23 19:30 Consult: Gastroenterology Routine Consulting Provider: Reno Parham Reason for Consult: GI bleeding EMERGENT Consult: No MD Notified: Yes Date Notified: 06/19/23 Time Notified: 19:30 Method of Notification: ED Physician Initiated Reason For Visit: GI BLEEDING Diagnosis Discharge Diagnosis (1) GI bleed: Status: Resolved Code(s): K92.2 - Gastrointestinal hemorrhage, unspecified Plan #Acute on hronic anemia due to acute GI bleed * Still having melena stools. Hemoglobin today was initially 7, on repeat was 7.7 * On IV pantoprazole. Had EGD which was negative for any acute pathology. * Gastroenterology on board. * Of note he is also on iron which could be giving him the blackened stools. * for colonoscopy today * #Peripheral artery disease s/p femoropopliteal bypass in the right lower extremity x 2 * P. Right foot has 1+ pedal edema. * Apply Bactroban cream. Duplex of the lower extremity was negative for any evidence of DVT. * on aspirin * on PO doxycycline 100mg bid x 5 days * #orthostatic hypotension * resolved with hydration. * * #Depression: On Prozac #Hyperlipidemia: On statin #Benign essential hypertension: On losartan. #Raynaud's disease: stable DVT prophylaxis: SCDs. Disposition: for likely dc over the next 24-48 hours depending on the results ofthe colonoscopy Medications at Discharge Home Medications atorvastatin 20 mg tablet 20 mg PO QHS cholesterol 09/17/15 nifedipine 30 mg tablet,extended release 30 mg PO DAILY PRN raynauds syndrome 09/17/15 fluoxetine 20 mg capsule 20 mg PO DAILY mental health 09/20/20 ixekizumab 80 mg/mL subcutaneous auto-injector (Taltz Autoinjector) 80 [facility] health 09/20/20 rizatriptan 10 mg disintegrating tablet 10 mg PO PRN PRN Migraine Headache 09/20/20 amitriptyline 50 mg tablet 50 mg PO QHS mental health 01/17/22 losartan 25 mg tablet 25 mg PO DAILY blood pressure 01/17/22 ondansetron 4 mg disintegrating tablet 4 mg PO Q8H PRN nausea and vomiting #10 tabs 01/17/22 cyclobenzaprine 10 mg tablet 10 mg PO TID PRN muscle spasms 06/07/23 gabapentin 300 mg capsule 300 mg PO Q12H neuropathy/nerve pain 06/07/23 oxycodone 5 mg tablet 5 mg PO Q6H PRN pain (scale score 4-6) 06/07/23 pantoprazole 40 mg tablet,delayed release 40 mg PO DAILY heart burn 06/07/23 rivaroxaban 20 mg tablet (Xarelto) 20 mg PO QPM blood thinner 06/07/23 iron 150 mg-vit C 60 mg-folate 1 [id number]-rrelpup tablet (Niferex (Sumalate-Quatrefolic)) 1 tab PO DAILY supplement #60 tabs 06/10/23 oxycodone-acetaminophen 5 mg-325 mg tablet 1 tab PO BID PRN pain 06/19/23 Hospital Course Operations None Procedures Colonoscopy and EGD Summary of Care Provided Minutes Spent on Discharge: 55 Hospital Course: Patient is a 62 y/o male with a PMH of severe diverticulitis complicated by perforation s/p sigmoidectomy and 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 He was admitted through the ED on 06/19/2023 with a complaint of acute on chronic anemia. Patient had noted that he was having dark stools in his colostomy bag. He had recently been admitted for similar complaints and there was concern for GI bleed. He had an upper endoscopy on 06/08/2023 which showed normal esophagus with small hiatal hernia. He also had a colonoscopy which showed poor prep so poor visualization. Plan was for him to have repeat colonoscopy. He was then discharged home. However his symptoms worsened with a persistent dark stool so he came into the ED. He had associated dizziness and lightheadedness. On admission hemoglobin was 5.8. He was transfused with 2 units of packed red blood cells and admitted to be managed for acute on chronic anemia due to acute blood loss. Gastroenterology was consulted. He had EGD which showed no evidence of bleeding. He subsequently had colonoscopy which showed widely patent and colostomy with healthy appearing mucosa in the sigmoid colon and one 8 mm polyp in the ascending colon which was removed with a hot snare. Patient remained stable and plan was for him to have capsule endoscopy on outpatient basis by gastroenterology. Of note, patient had had recent vascular surgery in May 2023 at [facility] and had been on Xarelto and aspirin. The incision site had mild purulent discharge on admission so he was placed on p.o. doxycycline. Discharge subsequently stopped. Patient remained stable and was discharged home on 06/25/2023. Per gastroenterology, aspirin was stopped and wascontinued on the Xarelto. He is to follow-up with his primary care doctor within 1 to 2 weeks. He is also to follow-up with gastroenterology Within 1 to2 weeks. Patient seen and examined prior to discharge. He had no complaints and had an uneventful night. Review of systems otherwise negative. Labs and vitals reviewed. Home medication reviewed and reconciled. Patient's was by his bedside and agreed to discharge also. Physical Exam Const alert, oriented x3, no apparent distress and average body habitus General Appearance: cooperative, comfortable, well kempt and well developed Orientation / Consciousness: awake, oriented to person, oriented to place and oriented to time HEENT normocephalic, head/scalp atraumatic, hearing grossly normal bilaterally and moist oral mucous membranes Mouth: oral and palatal mucosa normal Eyes PERRL, EOMs intact bilaterally and conjunctivae normal Neck no lymphadenopathy, supple, no JVD, thyroid normal and no carotid bruits General: trachea midline Lymph Lymphatic: no lymphadenopathy noted and no lymphedema noted Resp normal respiratory effort, normal air movement, no retractions, no use of accessory muscles and clear to auscultation bilaterally Auscultation: Negative for rales, rhonchi or wheezes Cardio regular rate, regular rhythm, S1 normal heart sound, S2 normal heart sound, no rub, no gallops and no clicks Cardio Narrative: Systolic ejection murmur GI normal to inspection, nondistended, normoactive bowel sounds, soft to palpation,non-tender and non-distended GI Narrative: Has colostomy bag which contains dark stools. Extremity Extremity Narrative: Has 2+ edema of the right foot. Has a well-healed incision on the inner aspect of the right thigh which is from peripheral bypass. mild discharge has resolved. Skin no rashes or lesions noted Skin Narrative: As under extremities. General Skin Exam: no breakdown Neuro oriented x3, CN's II-XII intact bilaterally, moves all extremities, no focal motor deficits, no sensory deficits noted and deep tendon reflexes 2+ bilaterally Sensorium / Orientation: awake and alert Speech: speech normal Motor Exam: strength 5/5 throughout and general weakness Psych thought process normal, cooperative and affect normal Appearance: appropriate Weight / BMI Weight Weight: 198 lb 10.184 oz Body Mass Index (BMI) 26.2 ABG / Lab / Microbiology Data 06/25/23 05:10 06/25/23 05:10 Laboratory: Laboratory Results - last 24 hr 06/25/23 05:10: WBC 7.3, RBC 2.76 L, Hgb 7.5 L, Hct 25.2 L, MCV 91.3, MCH 27.2, MCHC 29.8 L, RDW Std Deviation 54.7 H, RDW Coeff of Eze 16.2 H, Plt Count 570 H,MPV 9.1, Immature Gran % (Auto) 0.300, Neut % (Auto) 57.7, Lymph % (Auto) 30.8, [place] % (Auto) 5.8, Eos % (Auto) 4.2, Baso % (Auto) 1.2 H, Absolute Neuts (auto) 4.2, Absolute Lymphs (auto) 2.25, Nucleated RBC % 0, Retic Count 2.99 H, Immature Retic Fraction 21.90 H, Retic Hgb Equivalent 20.8 L, Sodium 141, Potassium 3.7, Chloride 109 H, Carbon Dioxide 27.0, Anion Gap 5, BUN 7, Creatinine 1.02, Estim Creat Clear Calc 85.95, Est GFR (MDRD) Af Amer 95, Est GFR (MDRD) Non-Af 79, BUN/Creatinine Ratio 6.9 L, Glucose 122 H, Calcium 8.5 Microbiology: Microbiology 06/19/23 12:42 Stool Stool Occult Blood (VENKATA) - Final Occult Blood Positive D/C Instructions Discharge Diet: Low fat / Low cholesterol Discharge Activity: Return to Normal Activity Weight Bearing Status: Weight bearing as tolerated Call your doctor if you observe: Fever of 101 or Higher, Shortness of breath, Dizziness, Swelling in the ankles, Chest pain and - (persistent dark stools) Meaningful Use Info Meaningful Use Diagnoses (Choose all that apply): None applicable Discharge Plan Admission Admit Date/Time: 06/19/23 14:21 Primary Reason for Your Visit: acute on chronic anemia Attending Provider: Pascale Soto Primary Care Provider: Linda Parish Consulting Providers: Devon Cutler; Milton Bergeron Instructions Patient Instructions: Anemia Discharge Orders/Prescriptions Prescriptions: Continued atorvastatin 20 MG tablet 20 mg PO QHS nifedipine 30 MG tablet extended release 30 mg PO DAILY PRN (Reason: raynauds syndrome) Rasheed Autoinjector 80 mg/mL auto-injector 80 mg SUBCUT QMONTH rizatriptan 10 mg tablet,disintegrating 10 mg PO PRN PRN (Reason: Migraine Headache) Patient Comments: TAKE 1 TABLET BY MOUTH NEEDED for migraine, may repeat in 2 (TWO) hours ifneeded fluoxetine 20 mg capsule 20 mg PO DAILY amitriptyline 50 mg tablet 50 mg PO QHS losartan 25 mg tablet 25 mg PO DAILY ondansetron 4 mg tablet,disintegrating 4 mg PO Q8H PRN (Reason: nausea and vomiting) Qty: 10 0RF cyclobenzaprine 10 mg tablet 10 mg PO TID PRN Patient Comments: Take 1 tablet by mouth three times a day as needed for muscle spasm for up to7 days. oxycodone 5 mg tablet 5 mg PO Q6H PRN (Reason: pain (scale score 4-6)) Patient Comments: Take 1 tablet by mouth every 6 hours as needed for pain for up to 7 days. Xarelto 20 mg tablet 20 mg PO QPM Hold Instructions: Resume on 07/09/23. gabapentin 300 mg capsule 300 mg PO Q12H pantoprazole 40 mg tablet,delayed release (DR/EC) 40 mg PO DAILY Patient Comments: TAKE 1 TABLET BY MOUTH DAILY before BREAKFAST. take on empty stomach 30 MINUTES before meal Niferex (Sumalate-Quatrefolic) 150 mg iron- 60 mg-1 mg tablet 1 tab PO DAILY Qty: 60 0RF oxycodone-acetaminophen 5-325 mg tablet 1 tab PO BID PRN (Reason: pain) Discontinued aspirin 81 mg tablet,delayed release (DR/EC) 81 mg PO DAILY Referrals / Follow Up: John Reyes DO [Med Staff - Active Staff] - Within 2 Weeks Linda Parish MD [Primary Care Provider] - 06/30/23 10:10 am (Appointment is with Susana Walton N.P.) Disposition Disposition (needs filled in before D/C Order can be placed): Home, Self Care Charges/Coding Visit Charges Inpatient E&M: 83439 Disch Hosp >30min 06/25/23 1431 <Electronically signed by Pascale Soto MD> Cosigner Signature (if applicable): CC: Dr. Pascale Soto MD; Dr. Linda Parish MD~ Signed [facility] Work Phone: 1(453) 255-379002-23-2024 Discharge summary Author Pascale Soto [facility] June 25, 2023 12:53pm Note Date/Time June 25, 2023 12:53pm [facility] Medical Records Department [address] [place] [address] Instructions for Home/Discharge Instructions 06/25/23 1250 MR#: [id number] Acct: [id number] Name: CHOCO MALDONADO Rep #:[id number] : 1960 62 From: Pascale Soto MD PCP: Dr. Linda Parish MD Status:ADM I N Discharge Instructions Diet Discharge Diet: Low fat / Low cholesterol Activity Discharge Activity: Return to Normal Activity Weight Bearing Status: Weight bearing as tolerated Dressing / Incision Call your doctor if you observe: Fever of 101 or Higher, Shortness of breath, Dizziness, Swelling in the ankles, Chest pain and - (persistent dark stools) Follow Up Care Test Results: Test results from this visit will be discussed in further detail at your follow- up appointment, if applicable. Discharge Plan Admission Admit Date/Time: 06/19/23 14:21 Primary Reason for Your Visit: acute on chronic anemia Attending Provider: Pascale Soto Primary Care Provider: Linda Parish Consulting Providers: Devon Cutler; Milton Bergeron Instructions Patient Instructions: Anemia Discharge Orders/Prescriptions Prescriptions: Continued atorvastatin 20 MG tablet 20 mg PO QHS nifedipine 30 MG tablet extended release 30 mg PO DAILY PRN (Reason: raynauds syndrome) Taltz Autoinjector 80 mg/mL auto-injector 80 mg SUBCUT QMONTH rizatriptan 10 mg tablet,disintegrating 10 mg PO PRN PRN (Reason: Migraine Headache) Patient Comments: TAKE 1 TABLET BY MOUTH NEEDED for migraine, may repeat in 2 (TWO) hours ifneeded fluoxetine 20 mg capsule 20 mg PO DAILY amitriptyline 50 mg tablet 50 mg PO QHS losartan 25 mg tablet 25 mg PO DAILY ondansetron 4 mg tablet,disintegrating 4 mg PO Q8H PRN (Reason: nausea and vomiting) Qty: 10 0RF cyclobenzaprine 10 mg tablet 10 mg PO TID PRN Patient Comments: Take 1 tablet by mouth three times a day as needed for muscle spasm for up to7 days. oxycodone 5 mg tablet 5 mg PO Q6H PRN (Reason: pain (scale score 4-6)) Patient Comments: Take 1 tablet by mouth every 6 hours as needed for pain for up to 7 days. Xarelto 20 mg tablet 20 mg PO QPM Hold Instructions: Resume on 07/09/23. gabapentin 300 mg capsule 300 mg PO Q12H pantoprazole 40 mg tablet,delayed release (DR/EC) 40 mg PO DAILY Patient Comments: TAKE 1 TABLET BY MOUTH DAILY before BREAKFAST. take on empty stomach 30 MINUTES before meal Niferex (Sumalate-Quatrefolic) 150 mg iron- 60 mg-1 mg tablet 1 tab PO DAILY Qty: 60 0RF oxycodone-acetaminophen 5-325 mg tablet 1 tab PO BID PRN (Reason: pain) Discontinued aspirin 81 mg tablet,delayed release (DR/EC) 81 mg PO DAILY Referrals / Follow Up: John Reyes DO [Med Staff - Active Staff] - Within 2 Weeks Linda Parish MD [Primary Care Provider] - 06/30/23 10:10 am (Appointment is with Susana Walton N.P.) Disposition Disposition (needs filled in before D/C Order can be placed): Home, Self Care 06/25/23 1253<Electronically signed by Pascale Soto MD>Pascale Soto MD CC: Dr. Devon Cutler MD; Dr. Milton Bergeron DO; Dr. Linda Parish MD ~ Signed [facility] Work Phone: 1(232) 308-144102-23-2024 Progress note Author John Reyes [facility] June 25, 2023 12:24pm Note Date/Time June 25, 2023 12:17pm [facility] Medical Records Department [address] [place] [address] Progress Note - GI 06/25/23 1215 MR#: [id number] Acct: [id number] Name: CHOCO MALDONADO Rep #:[id number] : 1960 62 From: John Reyes DO PCP: Dr. Linda Parish MD Status:ADM I N Location: [place] [address] Subjective Subjective Patient underwent a colonoscopy through his ostomy yesterday. He has not seen any signs of bleeding since the procedure. He is tolerating a normal diet. He denies any abdominal pain, cramping, nausea or dyspeptic symptoms. His hemoglobin is 7.5 today. Objective Data Objective Data Vital Signs: Vital Signs Temp Pulse Resp BP Pulse Ox O2 Del Method 97.9 F 77 18 129/72 H 95 Room Air 06/25/23 09:45 06/25/23 09:45 06/25/23 09:45 06/25/23 09:45 06/25/23 09:45 06/25/23 09:45 Oxygen Delivery Method Room Air Weight: 198 lb 10.184 oz Body Mass Index (BMI) 26.2 Intake & Output: Intake and Output for Last 24 Hours 06/23/23 06/24/23 06/25/23 23:59 23:59 23:59 Intake Total 1460 / 1460 1558.75 / 1558.75 470 / 470 Output Total 250 / 250 Balance 1460 / 1460 1308.75 / 1308.75 470 / 470 Lab / Micro Data 06/25/23 05:10 06/25/23 05:10 Labs: Laboratory Results - last 24 hr 06/25/23 05:10: WBC 7.3, RBC 2.76 L, Hgb 7.5 L, Hct 25.2 L, MCV 91.3, MCH 27.2, MCHC 29.8 L, RDW Std Deviation 54.7 H, RDW Coeff of Eze 16.2 H, Plt Count 570 H,MPV 9.1, Immature Gran % (Auto) 0.300, Neut % (Auto) 57.7, Lymph % (Auto) 30.8, Lenoir % (Auto) 5.8, Eos % (Auto) 4.2, Baso % (Auto) 1.2 H, Absolute Neuts (auto) 4.2, Absolute Lymphs (auto) 2.25, Nucleated RBC % 0, Sodium 141, Potassium 3.7, Chloride 109 H, Carbon Dioxide 27.0, Anion Gap 5, BUN 7, Creatinine 1.02, Estim Creat Clear Calc 85.95, Est GFR (MDRD) Af Amer 95, Est GFR (MDRD) Non-Af 79, BUN/Creatinine Ratio 6.9 L, Glucose 122 H, Calcium 8.5 Micro: Microbiology 06/19/23 12:42 Stool Stool Occult Blood (VENKATA) - Final Occult Blood Positive Physical Exam Const alert, oriented x3, no apparent distress and average body habitus General Appearance: cooperative, well kempt and well developed Orientation / Consciousness: awake, oriented to person, oriented to place and oriented to time HEENT normocephalic, head/scalp atraumatic and moist oral mucous membranes Eyes PERRL, EOMs intact bilaterally and conjunctivae normal Neck no lymphadenopathy, supple, no JVD, thyroid normal and no carotid bruits General: trachea midline Lymph Lymphatic: no lymphadenopathy noted and no lymphedema noted Resp normal respiratory effort, normal air movement, no retractions, no use of accessory muscles and clear to auscultation bilaterally Auscultation: Negative for rales, rhonchi or wheezes Cardio regular rate, regular rhythm, S1 normal heart sound, S2 normal heart sound, no murmurs, no rub, no gallops and no clicks GI normal to inspection, nondistended, normoactive bowel sounds, soft to palpation,non-tender and non-distended GI Narrative: Has colostomy bag which contains dark stools. Extremity Extremity Narrative: Has 2+ edema of the right foot. Has a well-healed incision on the inner aspect of the right thigh which is from peripheral bypass. mild discharge has resolved. Skin no rashes or lesions noted Skin Narrative: As under extremities. General Skin Exam: no breakdown Neuro oriented x3, CN's II-XII intact bilaterally, no focal motor deficits, no sensorydeficits noted and deep tendon reflexes 2+ bilaterally Sensorium / Orientation: awake and alert Speech: speech normal Motor Exam: strength 5/5 throughout and general weakness Psych thought process normal, cooperative and affect normal Appearance: appropriate Assessment & Plan Assessment/Plan (1) GI bleed: PLAN: Plan Patient is a 62-year-old gentleman with recent vascular surgery on systemic anticoagulation with Xarelto who presented with near syncope while taking a shower and dark stools in his colostomy bag. Presented to the emergency department hemoglobin was found to be 5.4. Admitted to monitored bed for subsequent evaluation Acute GI bleed ? Suspected to secondary to upper GI bleed, hemoglobin on admission was 5.8 and currently it is 7.7. Patient was typed and crossmatched transfused with 2 unit PRBC started on Protonix drip admitted to monitored bed with consultation placedto GI. Patient is on antiplatelet therapy with aspirin as well as systemic anticoagulation with Xarelto but held - Patient underwent EGD on 06/08/2023 findings as below - Normal esophagus. - Small hiatal hernia. - No gross lesions in the third portion of the duodenum. - No specimens collected. Plan is for patient to repeat endoscopic evaluation with colonoscopy. His colonoscopy previously done had a very poor prep. Hemoglobin seems to be stable. ?06/10/2023 Underwent colonoscopy 06/10/2023 findings and recommendations as below Preparation of the colon was poor. - Patent end colostomy with healthy appearing mucosa in the sigmoid colon. - Stool in the descending colon, at the splenic flexure, in the transverse colon, in the ascending colon and in the cecum. - No specimens collected. Recommendations : - Discharge patient to home. - Resume previous diet. - Continue present medications. - Repeat colonoscopy because the bowel preparation was suboptimal. -06/25/23-patient is not having any melanotic stools at this time. He underwent colonoscopy yesterday through the ostomy. Findings: There was evidence of a widely patent end colostomy in the sigmoid colon. This was characterized by healthy appearing mucosa. An 8 mm polyp was found in the ascending colon. The polyp was sessile. The polyp was removed with a hot snare. Resection and retrieval were complete. Verification of patient identification for the specimen was done. Estimated blood loss was minimal. The terminal ileum appeared normal. Impression: - Widely patent end colostomy with healthy appearing mucosa in the sigmoid colon. - One 8 mm polyp in the ascending colon, removed with a hot snare. Resected and retrieved. - The examined portion of the ileum was normal. Recommendation: - [facility]. - Resume regular diet. - Continue present medications. - Await pathology results. - Repeat colonoscopy in 5 years for surveillance based on pathology results I will check iron studies and give him an iron transfusion. Charges/Coding Visit Charges Inpatient E&M: 72622 Subs Hosp L3 06/25/234 <Electronically signed by John Friend DO> Cosigner Signature (if applicable): CC: ~ Signed [facility] Work Phone: 1(886) 395-353202-22-2024 Progress note Author Pascale Soto [facility] June 24, 2023 3:48pm Note Date/Time June 24, 2023 12:30pm [facility] Medical Records Department [address] [place] [address] Progress Note 06/24/23 1222 MR#: [id number] Acct: [id number] Name: CHOCO MALDONADO Rep #:[id number] : 1960 62 From: Pascale Soto MD PCP: Dr. Linda Parish MD Status:ADM I N Location: [place] [address] Subjective Subjective Paient seen and examiend. was by his bedside. He complained of the swellingin his right leg. He is sill having dark stools. His hb this morning was 7; repeat H&H was however 7.7. Per GI, to be given colonoscopy prep for colonoscopylater today. Objective Data Objective Data Vital Signs: Vital Signs Temp Pulse Resp BP Pulse Ox O2 Del Method 96.9 F L 79 16 144/61 H 97 Room Air 06/24/23 08:30 06/24/23 08:30 06/24/23 08:30 06/24/23 08:30 06/24/23 08:30 06/24/23 08:30 Oxygen Delivery Method Room Air Weight: 198 lb 10.184 oz Body Mass Index (BMI) 26.2 Intake & Output: Intake and Output for Last 24 Hours 06/22/23 06/23/23 06/24/23 23:59 23:59 23:59 Intake Total 374.5 / 374.5 1460 / 1460 110 / 110 Balance 374.5 / 374.5 1460 / 1460 110 / 110 Lab / Micro Data 06/24/23 08:56 06/24/23 07:00 Labs: Laboratory Results - last 24 hr 06/24/23 07:00: WBC 10.2, RBC 2.66 L, Hgb 7.0 L, Hct 23.8 L, MCV 89.5, MCH 26.3 L, MCHC 29.4 L, RDW Std Deviation 52.9 H, RDW Coeff of Eze 15.9 H, Plt Count 564H, MPV 9.2, Immature Gran % (Auto) 0.400, Neut % (Auto) 67.0, Lymph % (Auto) 21.9, Lenoir % (Auto) 6.1, Eos % (Auto) 3.7, Baso % (Auto) 0.9, Absolute Neuts (auto) 6.8, Absolute Lymphs (auto) 2.22, Nucleated RBC % 0, Sodium 140, Potassium 3.7, Chloride 111 H, Carbon Dioxide 27.0, Anion Gap 2 L, BUN 10, Creatinine 0.97, Estim Creat Clear Calc 90.38, Est GFR (MDRD) Af Amer 101, Est GFR (MDRD) Non-Af 84, BUN/Creatinine Ratio 10.3, Glucose 100, Calcium 8.7 06/24/23 08:56: Hgb 7.7 L, Hct 26.1 L Micro: Microbiology 06/19/23 12:42 Stool Stool Occult Blood (VENKATA) - Final Occult Blood Positive Physical Exam Const alert, oriented x3, no apparent distress and average body habitus General Appearance: cooperative, well kempt and well developed Orientation / Consciousness: awake, oriented to person, oriented to place and oriented to time HEENT normocephalic, head/scalp atraumatic and moist oral mucous membranes Eyes PERRL, EOMs intact bilaterally and conjunctivae normal Neck no lymphadenopathy, supple, no JVD, thyroid normal and no carotid bruits General: trachea midline Lymph Lymphatic: no lymphadenopathy noted and no lymphedema noted Resp normal respiratory effort, normal air movement, no retractions, no use of accessory muscles and clear to auscultation bilaterally Auscultation: Negative for rales, rhonchi or wheezes Cardio regular rate, regular rhythm, S1 normal heart sound, S2 normal heart sound, no murmurs, no rub, no gallops and no clicks GI normal to inspection, nondistended, normoactive bowel sounds, soft to palpation,non-tender and non-distended GI Narrative: Has colostomy bag which contains dark stools. Extremity Extremity Narrative: Has 2+ edema of the right foot. Has a well-healed incision on the inner aspect of the right thigh which is from peripheral bypass. mild discharge has resolved. Skin no rashes or lesions noted Skin Narrative: As under extremities. General Skin Exam: no breakdown Neuro oriented x3, CN's II-XII intact bilaterally, no focal motor deficits, no sensorydeficits noted and deep tendon reflexes 2+ bilaterally Sensorium / Orientation: awake and alert Speech: speech normal Motor Exam: strength 5/5 throughout and general weakness Psych thought process normal, cooperative and affect normal Appearance: appropriate Assessment & Plan Assessment/Plan (1) Symptomatic anemia: PLAN: Plan #Acute on hronic anemia due to acute GI bleed * Still having melena stools. Hemoglobin today was initially 7, on repeat was 7.7 * On IV pantoprazole. Had EGD which was negative for any acute pathology. * Gastroenterology on board. * Of note he is also on iron which could be giving him the blackened stools. * for colonoscopy today * #Peripheral artery disease s/p femoropopliteal bypass in the right lower extremity x 2 * P. Right foot has 1+ pedal edema. * Apply Bactroban cream. Duplex of the lower extremity was negative for any evidence of DVT. * on aspirin * on PO doxycycline 100mg bid x 5 days * #orthostatic hypotension * resolved with hydration. * * #Depression: On Prozac #Hyperlipidemia: On statin #Benign essential hypertension: On losartan. #Raynaud's disease: stable DVT prophylaxis: SCDs. Disposition: for likely dc over the next 24-48 hours depending on the results ofthe colonoscopy Charges/Coding Visit Charges Inpatient E&M: 94749 Subs Hosp L2 06/24/23 1548 <Electronically signed by Pascale Soto MD> Pascale Soto MD Cosigner Signature (if applicable): CC: ~ Signed [facility] Work Phone: 1(472) 118-510302-22-2024 Procedure [facility] 06-24-2023 Procedure [facility]02-21-2024 Progress note Author John Reyes [facility] June 23, 2023 5:01pm Note Date/Time June 23, 2023 5:01pm [facility] Medical Records Department [address] [place] [address] Progress Note - GI 06/23/23 1659 MR#: [id number] Acct: [id number] Name: CHOCO MALDONADO Rep #:[id number] : 1960 62 From: John Reyes DO PCP: Dr. Linda Parish MD Status:ADM I N Location: [place] [address] Subjective Subjective Patient is doing well. He underwent an upper endoscopy yesterday. There were no signs or symptoms of acute or chronic GI bleeding seen in his esophagus stomach or proximal small bowel. Objective Data Objective Data Vital Signs: Vital Signs Temp Pulse Resp BP Pulse Ox O2 Del Method 97.2 F L 81 16 127/66 H 97 Room Air 06/23/23 11:45 06/23/23 11:53 06/23/23 11:45 06/23/23 11:53 06/23/23 11:45 06/23/23 15:02 Oxygen Delivery Method Room Air Weight: 198 lb 10.184 oz Body Mass Index (BMI) 26.2 Intake & Output: Intake and Output for Last 24 Hours 06/21/23 06/22/23 06/23/23 23:59 23:59 23:59 Intake Total 1660 / 1660 374.5 / 374.5 230 / 230 Balance 1660 / 1660 374.5 / 374.5 230 / 230 Lab / Micro Data 06/23/23 06:20 06/23/23 06:20 Labs: Laboratory Results - last 24 hr 06/23/23 06:20: WBC 9.6, RBC 2.87 L, Hgb 7.7 L, Hct 25.6 L, MCV 89.2, MCH 26.8 L, MCHC 30.1 L, RDW Std Deviation 52.9 H, RDW Coeff of Eze 16.2 H, Plt Count 596 H, MPV 9.0, Immature Gran % (Auto) 0.400, Neut % (Auto) 68.8, Lymph % (Auto) 20.3, Lenoir % (Auto) 5.8, Eos % (Auto) 3.8, Baso % (Auto) 0.9, Absolute Neuts (auto) 6.6, Absolute Lymphs (auto) 1.94, Nucleated RBC % 0, Sodium 138, Potassium 3.9, Chloride 106, Carbon Dioxide 27.0, Anion Gap 5, BUN 10, Creatinine 1.06, Estim Creat Clear Calc 82.71, Est GFR (MDRD) Af Amer 91, Est GFR (MDRD) Non-Af 75, BUN/Creatinine Ratio 9.4 L, Glucose 122 H, Calcium 9.0 06/23/23 11:15: POC Glucose 97 Micro: Microbiology 06/19/23 12:42 Stool Stool Occult Blood (VENKATA) - Final Occult Blood Positive Physical Exam Const alert, oriented x3, no apparent distress and average body habitus General Appearance: cooperative, well kempt and well developed Orientation / Consciousness: awake, oriented to person, oriented to place and oriented to time HEENT normocephalic, head/scalp atraumatic and moist oral mucous membranes Eyes PERRL, EOMs intact bilaterally and conjunctivae normal Neck no lymphadenopathy, supple, no JVD, thyroid normal and no carotid bruits General: trachea midline Lymph Lymphatic: no lymphadenopathy noted and no lymphedema noted Resp normal respiratory effort, normal air movement, no retractions, no use of accessory muscles and clear to auscultation bilaterally Auscultation: Negative for rales, rhonchi or wheezes Cardio regular rate, regular rhythm, S1 normal heart sound, S2 normal heart sound, no murmurs, no rub, no gallops and no clicks Cardio Narrative: Systolic ejection murmur GI normal to inspection, nondistended, normoactive bowel sounds, soft to palpation,non-tender and non-distended GI Narrative: Has colostomy bag which contains dark stools. Extremity Extremity Narrative: Has 2+ edema of the right foot. Has a well-healed incision on the inner aspect of the right thigh which is from peripheral bypass. Has mild purulent dischargefrom incision site Skin no rashes or lesions noted Skin Narrative: As under extremities. General Skin Exam: no breakdown Neuro oriented x3, CN's II-XII intact bilaterally, no focal motor deficits, no sensorydeficits noted and deep tendon reflexes 2+ bilaterally Sensorium / Orientation: awake and alert Speech: speech normal Motor Exam: strength 5/5 throughout and general weakness Psych thought process normal, cooperative and affect normal Appearance: appropriate Assessment & Plan Assessment/Plan (1) GI bleed: PLAN: Plan Patient is a 62-year-old gentleman with recent vascular surgery on systemic anticoagulation with Xarelto who presented with near syncope while taking a shower and dark stools in his colostomy bag. Presented to the emergency department hemoglobin was found to be 5.4. Admitted to monitored bed for subsequent evaluation Acute GI bleed ? Suspected to secondary to upper GI bleed, hemoglobin on admission was 5.8 and currently it is 7.7. Patient was typed and crossmatched transfused with 2 unit PRBC started on Protonix drip admitted to monitored bed with consultation placedto GI. Patient is on antiplatelet therapy with aspirin as well as systemic anticoagulation with Xarelto but held - Patient underwent EGD on 06/08/2023 findings as below - Normal esophagus. - Small hiatal hernia. - No gross lesions in the third portion of the duodenum. - No specimens collected. Plan is for patient to repeat endoscopic evaluation with colonoscopy. His colonoscopy previously done had a very poor prep. Hemoglobin seems to be stable. ?06/10/2023 Underwent colonoscopy 06/10/2023 findings and recommendations as below Preparation of the colon was poor. - Patent end colostomy with healthy appearing mucosa in the sigmoid colon. - Stool in the descending colon, at the splenic flexure, in the transverse colon, in the ascending colon and in the cecum. - No specimens collected. Recommendations : - Discharge patient to home. - Resume previous diet. - Continue present medications. - Repeat colonoscopy because the bowel preparation was suboptimal. Recommend outpatient capsule endoscopy to complete his workup Charges/Coding Visit Charges Inpatient E&M: 72381 [facility] Hosp L3 06/23/23 1701 <Electronically signed by John Friend DO> Cosigner Signature (if applicable): CC: ~ Signed [facility] Work Phone: 1(792) 170-222502-21-2024 Progress note Author Pascale Soto [facility] June 23, 2023 1:31pm Note Date/Time June 23, 2023 1:05pm [facility] Medical Records Department [address] [place] [address] Progress Note 06/23/23 1257 MR#: [id number] Acct: [id number] Name: CHOCO MALDONADO Rep #:[id number] : 1960 62 From: Pascale Soto MD PCP: Dr. Linda Parish MD Status:ADM I N Location: [place] [address] Subjective Subjective Patient jono and examined. HE complained of swelling in his right foot which ischronic. He denied any dizziness, lightheadedness, nausea, vomiting or any othersymptoms. Review of systems is otherwise negative. Objective Data Objective Data Vital Signs: Vital Signs Temp Pulse Resp BP Pulse Ox O2 Del Method 97.2 F L 81 18 127/66 H 97 Room Air 06/23/23 09:00 06/23/23 11:53 06/23/23 09:00 06/23/23 11:53 06/23/23 09:00 06/23/23 09:00 Oxygen Delivery Method Room Air Weight: 198 lb 10.184 oz Body Mass Index (BMI) 26.2 Intake & Output: Intake and Output for Last 24 Hours 06/21/23 06/22/23 06/23/23 23:59 23:59 23:59 Intake Total 1660 / 1660 374.5 / 374.5 110 / 110 Balance 1660 / 1660 374.5 / 374.5 110 / 110 Lab / Micro Data 06/23/23 06:20 06/23/23 06:20 Labs: Laboratory Results - last 24 hr 06/23/23 06:20: WBC 9.6, RBC 2.87 L, Hgb 7.7 L, Hct 25.6 L, MCV 89.2, MCH 26.8 L, MCHC 30.1 L, RDW Std Deviation 52.9 H, RDW Coeff of Eze 16.2 H, Plt Count 596 H, MPV 9.0, Immature Gran % (Auto) 0.400, Neut % (Auto) 68.8, Lymph % (Auto) 20.3, Lenoir % (Auto) 5.8, Eos % (Auto) 3.8, Baso % (Auto) 0.9, Absolute Neuts (auto) 6.6, Absolute Lymphs (auto) 1.94, Nucleated RBC % 0, Sodium 138, Potassium 3.9, Chloride 106, Carbon Dioxide 27.0, Anion Gap 5, BUN 10, Creatinine 1.06, Estim Creat Clear Calc 82.71, Est GFR (MDRD) Af Amer 91, Est GFR (MDRD) Non-Af 75, BUN/Creatinine Ratio 9.4 L, Glucose 122 H, Calcium 9.0 06/23/23 11:15: POC Glucose 97 Micro: Microbiology 06/19/23 12:42 Stool Stool Occult Blood (VENKATA) - Final Occult Blood Positive Physical Exam Const alert, oriented x3, no apparent distress and average body habitus General Appearance: cooperative, well kempt and well developed Orientation / Consciousness: awake, oriented to person, oriented to place and oriented to time HEENT normocephalic, head/scalp atraumatic and moist oral mucous membranes Eyes PERRL, EOMs intact bilaterally and conjunctivae normal Neck no lymphadenopathy, supple, no JVD, thyroid normal and no carotid bruits General: trachea midline Lymph Lymphatic: no lymphadenopathy noted and no lymphedema noted Resp normal respiratory effort, normal air movement, no retractions, no use of accessory muscles and clear to auscultation bilaterally Auscultation: Negative for rales, rhonchi or wheezes Cardio regular rate, regular rhythm, S1 normal heart sound, S2 normal heart sound, no murmurs, no rub, no gallops and no clicks Cardio Narrative: Systolic ejection murmur GI normal to inspection, nondistended, normoactive bowel sounds, soft to palpation,non-tender and non-distended GI Narrative: Has colostomy bag which contains dark stools. Extremity Extremity Narrative: Has 2+ edema of the right foot. Has a well-healed incision on the inner aspect of the right thigh which is from peripheral bypass. Has mild purulent dischargefrom incision site Skin no rashes or lesions noted Skin Narrative: As under extremities. General Skin Exam: no breakdown Neuro oriented x3, CN's II-XII intact bilaterally, no focal motor deficits, no sensorydeficits noted and deep tendon reflexes 2+ bilaterally Sensorium / Orientation: awake and alert Speech: speech normal Motor Exam: strength 5/5 throughout and general weakness Psych thought process normal, cooperative and affect normal Appearance: appropriate Assessment & Plan Assessment/Plan (1) Symptomatic anemia: PLAN: Plan #Acute on hronic anemia due to acute GI bleed * Still having melena stools. Hemoglobin today is 7.7. * On IV pantoprazole. Had EGD yesterday which was negative for any acute pathology. * Gastroenterology on board. * Of note he is also on iron which could be giving him the blackened stools. * #Peripheral artery disease s/p femoropopliteal bypass in the right lower extremity x 2 * Patient complaining of erythema and mild purulent discharge over the incision sites. Right foot has 1+ pedal edema. * Apply Bactroban cream. Duplex of the lower extremity was negative for any evidence of DVT. * on aspirin * start on PO doxycycline 100mg bid x 5 days. * #orthostatic hypotension * plan was for discharge today, but he felt dizzy and lightheaded, so orthostatics were checked which were positive * plan is to hydrate with IVF and recheck * #Depression: On Prozac #Hyperlipidemia: On statin #Benign essential hypertension: On losartan. #Raynaud's disease: stable DVT prophylaxis: SCDs. Disposition: for likely dc tomorrow. Charges/Coding Visit Charges Inpatient E&M: 68194 Subs Hosp L2 06/23/23 1331 <Electronically signed by Pascale Soto MD> Pascale Soto MD Cosigner Signature (if applicable): CC: ~ Signed [facility] Work Phone: 1(477) 983-718902-20-2024 Progress note Author Pascale [facility] June 22, 2023 3:54pm Note Date/Time June 22, 2023 10:04[facility] Medical Records Department [address] [place] [address] Progress Note 06/22/23 1003 MR#: [id number] Acct: [id number] Name: CHOCO MALDONADO Rep #:[id number] : 1960 62 From: Pascale Soto MD PCP: Dr. Linda Parish MD Status:ADM I N Location: [place] [address] Subjective Subjective Patient seen and examined. He had no active complaints today. He is due for EGD today. Review of systems is otherwise negative. Objective Data Objective Data Vital Signs: Vital Signs Temp Pulse Resp BP Pulse Ox O2 Del Method 97.9 F 77 14 142/72 H 97 Room Air 06/22/23 09:36 06/22/23 09:36 06/22/23 09:36 06/22/23 09:36 06/22/23 09:36 06/22/23 09:36 Oxygen Delivery Method Room Air Weight: 198 lb 10.184 oz Body Mass Index (BMI) 26.2 Intake & Output: Intake and Output for Last 24 Hours 06/20/23 06/21/23 06/22/23 23:59 23:59 23:59 Intake Total 221 / 221 1660 / 1660 0 / 0 Balance 221 / 221 1660 / 1660 0 / 0 Lab / Micro Data 06/22/23 06:25 06/22/23 06:25 Labs: Laboratory Results - last 24 hr 06/22/23 06:25: WBC 11.0, RBC 2.82 L, Hgb 7.8 L, Hct 25.0 L, MCV 88.7, MCH 27.7,MCHC 31.2 L, RDW Std Deviation 53.1 H, RDW Coeff of Eze 16.4 H, Plt Count 583 H,MPV 9.1, Immature Gran % (Auto) 0.400, Neut % (Auto) 72.4 H, Lymph % (Auto) 17.5L, [place] % (Auto) 5.8, Eos % (Auto) 3.2, Baso % (Auto) 0.7, Absolute Neuts (auto)7.9 H, Absolute Lymphs (auto) 1.92, Nucleated RBC % 0, PT 14.8, INR 1.2, APTT 44.1 H, Sodium 140, Potassium 3.7, Chloride 109 H, Carbon Dioxide 25.0, Anion Gap 6, BUN 10, Creatinine 0.98, Estim Creat Clear Calc 89.46, Est GFR (MDRD) Af Amer 100, Est GFR (MDRD) Non-Af 83, BUN/Creatinine Ratio 10.2, Glucose 111 H, Calcium 8.9 Micro: Microbiology 06/19/23 12:42 Stool Stool Occult Blood (VENKATA) - Final Occult Blood Positive Radiography Diagnostic Testing: Radiology Impression Venous Doppler Study 06/20/23 10:06 Interpretation Summary Deep veins of the right lower extremity are patent and compressible segmentally.There is no evidence of right lower extremity deep vein thrombosis. The right great saphenous vein appears patent and compressible segmentally. Ordering Physician: Milton Bergeron Performed By: Seb Mejias, RVT Physical Exam Const alert, oriented x3, no apparent distress and average body habitus General Appearance: cooperative, well kempt and well developed Orientation / Consciousness: awake, oriented to person, oriented to place and oriented to time HEENT normocephalic, head/scalp atraumatic and moist oral mucous membranes Eyes PERRL, EOMs intact bilaterally and conjunctivae normal Neck no lymphadenopathy, supple, no JVD, thyroid normal and no carotid bruits General: trachea midline Lymph Lymphatic: no lymphadenopathy noted and no lymphedema noted Resp normal respiratory effort, normal air movement, no retractions, no use of accessory muscles and clear to auscultation bilaterally Auscultation: Negative for rales, rhonchi or wheezes Cardio regular rate, regular rhythm, S1 normal heart sound, S2 normal heart sound, no murmurs, no rub, no gallops and no clicks Cardio Narrative: Systolic ejection murmur GI normal to inspection, nondistended, normoactive bowel sounds, soft to palpation,non-tender and non-distended GI Narrative: Has colostomy bag which contains dark stools. Extremity Extremity Narrative: Has 2+ edema of the right foot. Has a well-healed incision on the inner aspect of the right thigh which is from peripheral bypass. Has mild purulent dischargefrom incision site Skin no rashes or lesions noted Skin Narrative: As under extremities. General Skin Exam: no breakdown Neuro oriented x3, CN's II-XII intact bilaterally, no focal motor deficits, no sensorydeficits noted and deep tendon reflexes 2+ bilaterally Sensorium / Orientation: awake and alert Speech: speech normal Motor Exam: strength 5/5 throughout and general weakness Psych thought process normal, cooperative and affect normal Appearance: appropriate Assessment & Plan Assessment/Plan (1) Symptomatic anemia: PLAN: Plan #Acute on hronic anemia due to acute GI bleed * Still having melena stools. Hemoglobin today is 7.8. * On IV pantoprazole. For EGD today. * Gastroenterology on board. * Of note he is also on iron which could be giving him the blackened stools. * #Peripheral artery disease s/p femoropopliteal bypass in the right lower extremity x 2 * Patient complaining of erythema and mild purulent discharge over the incision sites. Right foot has 1+ pedal edema. * Apply Bactroban cream. Duplex of the lower extremity was negative for any evidence of DVT. * on aspirin * #Depression: On Prozac #Hyperlipidemia: On statin #Benign essential hypertension: On losartan. #Raynaud's disease: Monitored DVT prophylaxis: SCDs. Charges/Coding Visit Charges Inpatient E&M: 79212 Subs Hosp L2 06/22/23 2714 <Electronically signed by Pascale Soto MD> Pascale Soto MD Cosigner Signature (if applicable): CC: ~ Signed [facility] Work Phone: 1(207) 419-251802-20-2024 Consult note Author John Reyes [facility] June 22, 2023 12:52pm Note Date/Time June 22, 2023 12:52pm [facility] Medical Records Department [address] [place] [address] Consultation - GI 06/21/23 1250 MR#: [id number] Acct: [id number] Name: CHOCO MALDONADO Rep #:[id number] : 1960 62 From: John Reyes DO PCP: Dr. Linda Parish MD Status:ADM I N Location: [place] [address] HPI Consult Data Date of Consult: 06/21/23 HPI Narrative Reason for Consultation: GI bleed HPI Narrative: CHOCO MALDONADO, is a 62 M with history of severe diverticulitis complicated by perforation s/p sigmoidectomy and colostomy in place, Raynaud's syndrome withoutgangrene, peripheral vascular disease, psoriasis, redo of right above- knee popliteal to posterior tibial bypass with reversed right saphenous vein and ligation [facility]. He was recently admitted for concerns regarding acute on chronic anemia and GI bleed. He underwent Upper endoscopy on 06/08/2023 showed normal esophagus, small hiatal hernia no gross lesions in the third portion of duodenum. There was a end colostomy, there was stool in the descending colon at the splenic flexure inthe transverse and descending and ascending. No blood was noted. He presented with dark black stools in her colostomy bag with progressive worsening of his leg pain and fatigue. There is some associated dizziness and lightheadedness. No falls. On evaluation in the ED he was found to have hemoglobin of 5.8 gm/dL. [facility] Medical History Arthritis Diverticulitis GERD (gastroesophageal reflux disease) Heart murmur Hypertension Polycythemia Psoriasis Vertigo Home Medications atorvastatin 20 mg tablet 20 mg PO QHS 09/17/15 [History Last Taken 06/18/23] nifedipine 30 mg tablet,extended release 30 mg PO DAILY PRN raynauds syndrome 09/17/15 [History Last Taken Unknown] aspirin 81 mg tablet,delayed release 81 mg PO DAILY 09/20/20 [History Last Taken 06/18/23] fluoxetine 20 mg capsule 20 mg PO DAILY 09/20/20 [History Last Taken 06/18/23] ixekizumab 80 mg/mL subcutaneous auto-injector (Taltz Autoinjector) 80 mg subcutQMONTH 09/20/20 [History Last Taken 05/24/23] rizatriptan 10 mg disintegrating tablet 10 mg PO PRN PRN Migraine Headache 09/20/20 [History Last Taken Unknown] amitriptyline 50 mg tablet 50 mg PO QHS 01/17/22 [History Last Taken 06/18/23] losartan 25 mg tablet 25 mg PO DAILY 01/17/22 [History Last Taken 06/18/23] ondansetron 4 mg disintegrating tablet 4 mg PO Q8H PRN nausea and vomiting #10 tabs 01/17/22 [Rx Last Taken Unknown] cyclobenzaprine 10 mg tablet 10 mg PO TID PRN muscle spasms 06/07/23 [History Last Taken Unknown] gabapentin 300 mg capsule 300 mg PO Q12H neuropathy/nerve pain 06/07/23 [History Last Taken 06/18/23] oxycodone 5 mg tablet 5 mg PO Q6H PRN pain (scale score 4-6) 06/07/23 [History Last Taken 06/19/23 07:30] pantoprazole 40 mg tablet,delayed release 40 mg PO DAILY heart burn 06/07/23 [History Last Taken 06/18/23] rivaroxaban 20 mg tablet (Xarelto) 20 mg PO QPM blood thinner 06/07/23 [History Last Taken 06/18/23 22:00] iron 150 mg-vit C 60 mg-folate 1 [id number] tablet (Niferex (Sumalate-Quatrefolic)) 1 tab PO DAILY #60 tabs 06/10/23 [Rx Last Taken 06/18/23] oxycodone-acetaminophen 5 mg-325 mg tablet 1 tab PO BID PRN pain 06/19/23 [History Last Taken 06/19/23] Allergy/AdvReac Type Severity Reaction Status Date / Time verapamil Allergy Rash Verified 06/19/23 11:58 Surgical History Hx of cardiac catheterization Social History Smoking Status: Former smoker substance use type: does not use ROS Review of Systems ROS Unobtainable: Denies due to encephalopathy, due to endotracheal tube, due tomental condition, due to mental status or other Constitutional Constitutional: Reports fatigue, malaise and weakness Eyes Eyes: Denies blurry vision, change in eye color, change in vision, discharge from eye(s), double vision, erythema, eye pain, loss of vision or other ENT HEENT: Denies abnormal hearing, dysphagia, ear pain, epistaxis, headache(s), hearing loss, nasal congestion, nasal discharge, post nasal drip, sinus pressure, sore throat or other Cardiovascular Cardiovascular: Reports claudication and edema Respiratory/Chest Respiratory/Chest: Denies cough, dyspnea, excessive phlegm production, hemoptysis, productive cough, shortness of breath at rest, shortness of breath with exertion, wheezing or other Gastrointestinal Gastrointestinal: Reports melena Musculoskeletal Musculoskeletal: Reports arthralgias and back pain Physical Exam Const alert, oriented x3, no apparent distress and average body habitus General Appearance: cooperative, well kempt and well developed Orientation / Consciousness: awake, oriented to person, oriented to place and oriented to time HEENT normocephalic, head/scalp atraumatic and moist oral mucous membranes Eyes PERRL, EOMs intact bilaterally and conjunctivae normal Neck no lymphadenopathy, supple, no JVD, thyroid normal and no carotid bruits General: trachea midline Lymph Lymphatic: no lymphadenopathy noted and no lymphedema noted Resp normal respiratory effort, normal air movement, no retractions, no use of accessory muscles and clear to auscultation bilaterally Auscultation: Negative for rales, rhonchi or wheezes Cardio regular rate, regular rhythm, S1 normal heart sound, S2 normal heart sound, no murmurs, no rub, no gallops and no clicks Cardio Narrative: Systolic ejection murmur GI normal to inspection, nondistended, normoactive bowel sounds, soft to palpation,non-tender and non-distended GI Narrative: Has colostomy bag which contains dark stools. Extremity Extremity Narrative: Has 2+ edema of the right foot. Has a well-healed incision on the inner aspect of the right thigh which is from peripheral bypass. Has mild purulent dischargefrom incision site Skin no rashes or lesions noted Skin Narrative: As under extremities. General Skin Exam: no breakdown Neuro oriented x3, CN's II-XII intact bilaterally, no focal motor deficits, no sensorydeficits noted and deep tendon reflexes 2+ bilaterally Sensorium / Orientation: awake and alert Speech: speech normal Motor Exam: strength 5/5 throughout and general weakness Psych thought process normal, cooperative and affect normal Appearance: appropriate Lab / Micro Data 06/22/23 06:25 06/22/23 06:25 Labs: Laboratory Results - last 24 hr 06/19/23 12:35: Diff Path Review Reviewed 06/22/23 06:25: WBC 11.0, RBC 2.82 L, Hgb 7.8 L, Hct 25.0 L, MCV 88.7, MCH 27.7,MCHC 31.2 L, RDW Std Deviation 53.1 H, RDW Coeff of Eze 16.4 H, Plt Count 583 H,MPV 9.1, Immature Gran % (Auto) 0.400, Neut % (Auto) 72.4 H, Lymph % (Auto) 17.5L, Lenoir % (Auto) 5.8, Eos % (Auto) 3.2, Baso % (Auto) 0.7, Absolute Neuts (auto)7.9 H, Absolute Lymphs (auto) 1.92, Nucleated RBC % 0, PT 14.8, INR 1.2, APTT 44.1 H, Sodium 140, Potassium 3.7, Chloride 109 H, Carbon Dioxide 25.0, Anion Gap 6, BUN 10, Creatinine 0.98, Estim Creat Clear Calc 89.46, Est GFR (MDRD) Af Vezo621, Est GFR (MDRD) Non-Af 83, BUN/Creatinine Ratio 10.2, Glucose 111 H, Calcium8.9 Assessment & Plan Assessment/Plan (1) Acute gastrointestinal bleeding: PLAN: Plan 1. Acute gastrointestinal bleeding-etiology unclear at this point, patient willremain on Protonix, he will undergo endoscopy. #2 acute blood loss anemia requiring blood transfusion-patient's hemoglobin willbe monitored #3 status post femoral-popliteal bypass x 2 #4 chronic right leg edema-no evidence of VTE at this time #5 chronic depression-patient remains on Prozac #6 hyperlipidemia-patient is on atorvastatin #7 essential hypertension-patient will remain on his losartan, patient takes. Nifedipine for Raynaud's syndrome Total clinical time spent by myself addressing the patient's medical issues, reviewing all of his data, and collaborating with the patient's care team: 35 minutes 06/22/23 1252 <Electronically signed by John Friend > Cosigner Signature (if applicable): CC: Dr. Devon Cutler MD; Dr. Milton Bergeron DO; Dr. Linda Parish MD~ Signed [facility] Work Phone: 1(147) 694-367802-20-2024 Procedure [facility] 06-22-2023 Procedure [facility]02-19-2024 Progress note Author Pascale Soto [facility] June 21, 2023 3:54pm Note Date/Time June 21, 2023 1:54pm [facility] Medical Records Department [address] [place] [address] Progress Note 06/21/23 1346 MR#: [id number] Acct: [id number] Name: CHOCO MALDONADO Rep #:[id number] : 1960 62 From: Pascale Soto MD PCP: Dr. Linda Parish MD Status:ADM I N Location: [place] [address]- Subjective Subjective Patient seen and examined. He complained of pain and swelling in his right lower extremity. He did have a duplex of the right lower extremity yesterday which was negative for any evidence of DVT. He is still having melena stools and is awaiting EGD. Hemoglobin today 7.5. Objective Data Objective Data Vital Signs: Vital Signs Temp Pulse Resp BP Pulse Ox O2 Del Method 97.9 F 79 16 114/53 L 97 Room Air 06/21/23 09:02 06/21/23 09:02 06/21/23 09:02 06/21/23 09:02 06/21/23 09:02 06/21/23 09:49 Oxygen Delivery Method Room Air Weight: 198 lb 10.184 oz Body Mass Index (BMI) 26.2 Intake & Output: Intake and Output for Last 24 Hours 06/19/23 06/20/23 06/21/23 23:59 23:59 23:59 Intake Total 100.75 / 101.75 221 / 221 110 / 110 Balance 100.75 / 101.75 221 / 221 110 / 110 Lab / Micro Data 06/21/23 05:00 06/21/23 05:00 Labs: Laboratory Results - last 24 hr 06/20/23 17:18: Hgb 7.8 L, Hct 26.0 L 06/21/23 05:00: WBC 10.6, RBC 2.83 L, Hgb 7.5 L, Hct 25.0 L, MCV 88.3, MCH 26.5 L, MCHC 30.0 L, RDW Std Deviation 52.1 H, RDW Coeff of Eze 16.3 H, Plt Count 557H, MPV 9.3, Immature Gran % (Auto) 0.400, Neut % (Auto) 65.0, Lymph % (Auto) 24.3, Lenoir % (Auto) 5.8, Eos % (Auto) 3.6, Baso % (Auto) 0.9, Absolute Neuts (auto) 6.9, Absolute Lymphs (auto) 2.58, Nucleated RBC % 0, APTT 40.1 H, Sodium 139, Potassium 3.6, Chloride 109 H, Carbon Dioxide 25.0, Anion Gap 5, BUN 13, Creatinine 1.01, Estim Creat Clear Calc 86.80, Est GFR (MDRD) Af Amer 96, Est GFR (MDRD) Non-Af 80, BUN/Creatinine Ratio 12.9, Glucose 91, Calcium 8.7 Micro: Microbiology 06/19/23 12:42 Stool Stool Occult Blood (VENKATA) - Final Occult Blood Positive Radiography Diagnostic Testing: Radiology Impression Venous Doppler Study 06/20/23 10:06 Interpretation Summary Deep veins of the right lower extremity are patent and compressible segmentally.There is no evidence of right lower extremity deep vein thrombosis. The right great saphenous vein appears patent and compressible segmentally. Ordering Physician: Milton Bergeron Performed By: Seb Mejias RVT Physical Exam Const alert, oriented x3 and no apparent distress General Appearance: cooperative and well developed HEENT normocephalic, head/scalp atraumatic and moist oral mucous membranes Eyes PERRL and EOMs intact bilaterally Neck no lymphadenopathy and supple Lymph Lymphatic: no lymphadenopathy noted and no lymphedema noted Resp normal respiratory effort, normal air movement and clear to auscultation bilaterally Cardio regular rate, regular rhythm, S1 normal heart sound, S2 normal heart sound and no murmurs GI normal to inspection, nondistended, normoactive bowel sounds, soft to palpation and non-tender GI Narrative: Has colostomy bag which contains dark stools. Extremity Extremity Narrative: Has 2+ edema of the right foot. Has a well-healed incision on the inner aspect of the right thigh which is from peripheral bypass. Has mild purulent dischargefrom incision site Skin Skin Narrative: As under extremities. Neuro CN's II-XII intact bilaterally, no focal motor deficits, no sensory deficits noted and deep tendon reflexes 2+ bilaterally Motor Exam: strength 5/5 throughout and general weakness Psych thought process normal and cooperative Appearance: appropriate Assessment & Plan Assessment/Plan (1) Symptomatic anemia: PLAN: Plan #Acute on hronic anemia due to acute GI bleed * Still having melena stools. Hemoglobin today is 7.5. * On IV pantoprazole. For EGD tomorrow. * Gastroenterology on board. * Of note he is also on iron which could be giving him the black in stools. * #Peripheral artery disease s/p femoropopliteal bypass in the right lower extremity x 2 * Patient complaining of erythema and mild purulent discharge over the incision sites. Right foot has 1+ pedal edema. * Apply Bactroban cream. Duplex of the lower extremity was negative for any evidence of DVT. * on aspirin * #Depression: On Prozac #Hyperlipidemia: On statin #Benign essential hypertension: On losartan. #Raynaud's disease: Monitored DVT prophylaxis: SCDs. Charges/Coding Visit Charges Inpatient E&M: 30203 Subs Hosp L2 06/21/23 2387 <Electronically signed by Pascale Soto MD> Pascale Soto MD Cosigner Signature (if applicable): CC: ~ Signed [facility] Work Phone: 1(502) 270-491602-19-2024 Miscellaneous Notes* Telephone Encounter - Barbara Carrasco RN - 06/21/2023 10:38 AM EST Spoke to pt Currently admitted at [facility] He says he may be having an endoscopy today He has an office visit with Dr. Alonso and N[place] Wednesday and Wednesday of this week He is reluctant to cancel either of those But will message to reschedule When he is discharged if needed Barbara [facility] Miscellaneous Notes* Telephone Encounter - Nikhil Zamudio LPN - 06/21/2023 10:21 AM EST Yes, pt went to [facility] ER and was admitted. ER report scanned into [facility]. Nikhil Zamudio LPN * Telephone Encounter - Linda Parish MD - 06/21/2023 8:08 AM EST He was definitely having worsening anemia again. Did he get admitted to [facility] on Wednesday? I sent himto the ER documented [facility] Progress note Author Milton Bergeron [facility] June 20, 2023 4:16pm Note Date/Time June 20, 2023 4:16pm [facility] Medical Records Department [address] [place] [address] Progress Note - Hospitalist 06/20/23 1610 MR#: [id number] Acct: [id number] Name: JOELCHOCO MONAENE Rep #:[id number] : 1960 62 From: Milton Bergeron DO PCP: Dr. Linda Parish MD Status:ADM I N Location: [place] [address] Reason for Visit Reason for Visit: Diagnoses Anemia, unspecified (06/19/23) Subjective Subjective Patient was seen and examined today, he was admitted yesterday due to a low hemoglobin and possible upper GI bleed. Patient has significant edema in his right leg, he has had arterial vascular surgery in the recent past twice, I ordered a duplex of his right leg today which was negative for VTE. Patient's hemoglobin today was 7.6. He has been given 2 units of packed red blood cells, hemoglobin on admission was 5.7. Objective Data Objective Data Vital Signs: Vital Signs Temp Pulse Resp BP Pulse Ox O2 Del Method 97.6 F L 69 16 134/78 H 99 Room Air 06/20/23 15:00 06/20/23 15:00 06/20/23 15:00 06/20/23 15:00 06/20/23 15:00 06/20/23 15:00 Oxygen Delivery Method Room Air Weight: 90.1 kg Body Mass Index (BMI) 26.2 Intake & Output: Intake and Output for Last 24 Hours 06/18/23 06/19/23 06/20/23 23:59 23:59 23:59 Intake Total 100.75 / 101.75 111 / 111 Balance 100.75 / 101.75 111 / 111 Lab / Micro Data 06/20/23 10:06 06/20/23 05:19 Labs: Laboratory Results - last 24 hr 06/19/23 12:35: Blood Type O POSITIVE, Antibody Screen NEGATIVE, Crossmatch See Detail 06/20/23 01:10: WBC 13.2 H, RBC 2.82 L, Hgb 7.5 L, Hct 24.6 L, MCV 87.2, MCH 26.6 L, MCHC 30.5 L D, RDW Std Deviation 50.5 H, RDW Coeff of Eze 15.9 H, Plt Count 514 H, MPV 9.0, Immature Gran % (Auto) 0.500, Neut % (Auto) 67.5, Lymph % (Auto) 22.6, Lenoir % (Auto) 5.4, Eos % (Auto) 2.9, Baso % (Auto) 1.1 H, Absolute Neuts (auto) 8.9 H, Absolute Lymphs (auto) 2.97, Nucleated RBC % 0 06/20/23 05:19: PT 13.8, INR 1.1, Sodium 138, Potassium 3.7, Chloride 109 H, Carbon Dioxide 24.0, Anion Gap 5, BUN 17, Creatinine 0.94, Estim Creat Clear Calc 93.26, Est GFR (MDRD) Af Amer 104, Est GFR (MDRD) Non-Af 86, BUN/CreatinineRatio 18.0, Glucose 103, Calcium 8.7, Phosphorus 4.5, Magnesium 2.2, Total Bilirubin 0.60, Direct Bilirubin 0.17, AST 21, ALT 19, Alkaline Phosphatase 93, Total Protein 7.1, Albumin 3.5, Globulin 3.6, Albumin/Globulin Ratio 1.0 06/20/23 10:06: WBC 10.4, RBC 2.83 L, Hgb 7.6 L, Hct 24.9 L, MCV 88.0, MCH 26.9 L, MCHC 30.5 L, RDW Std Deviation 51.5 H, RDW Coeff of Eze 16.1 H, Plt Count 535H, MPV 8.9, Immature Gran % (Auto) 0.500, Neut % (Auto) 67.8, Lymph % (Auto) 22.4, Lenoir % (Auto) 4.8, Eos % (Auto) 3.4, Baso % (Auto) 1.1 H, Absolute Neuts (auto) 7.1, Absolute Lymphs (auto) 2.34, Nucleated RBC % 0 Micro: Microbiology 06/19/23 12:42 Stool Stool Occult Blood (VENKATA) - Final Occult Blood Positive Physical Exam Const alert, oriented x3, no apparent distress and average body habitus General Appearance: cooperative, well kempt and well developed Orientation / Consciousness: awake, oriented to person, oriented to place and oriented to time HEENT normocephalic, head/scalp atraumatic and moist oral mucous membranes Eyes PERRL, EOMs intact bilaterally and conjunctivae normal Neck supple, no JVD, thyroid normal and no carotid bruits General: trachea midline Resp normal respiratory effort, no retractions, no use of accessory muscles and clearto auscultation bilaterally Auscultation: Negative for rales, rhonchi or wheezes Cardio regular rate, regular rhythm, S1 normal heart sound, S2 normal heart sound, no murmurs, no rub and no gallops GI normal to inspection, nondistended, normoactive bowel sounds, soft to palpation,non-tender and non-distended GI Narrative: Patient has a colostomy over the left mid/lateral quadrant Extremity Extremity Narrative: Patient has marked edema in the right leg including edema of the right dorsum ofthe foot, there is a long surgical scar extending down the inner aspect of the leg from the upper thigh area down below the knee. There is an open area over the left lateral calf area that is covered with a bandage at this time. Skin no rashes or lesions noted General Skin Exam: no breakdown Neuro oriented x3, CN's II-XII intact bilaterally, no focal motor deficits and no sensory deficits noted Sensorium / Orientation: awake and alert Speech: speech normal Psych affect normal Assessment & Plan Assessment/Plan (1) Acute gastrointestinal bleeding: PLAN: Plan 1. Acute gastrointestinal bleeding-etiology unclear at this point, patient willremain on Protonix, he will undergo endoscopy tomorrow. #2 acute blood loss anemia requiring blood transfusion-patient's hemoglobin willbe monitored #3 status post femoral-popliteal bypass x 2 #4 chronic right leg edema-no evidence of VTE at this time #5 chronic depression-patient remains on Prozac #6 hyperlipidemia-patient is on atorvastatin #7 essential hypertension-patient will remain on his losartan, patient takes. Nifedipine for Raynaud's syndrome Total clinical time spent by myself addressing the patient's medical issues, reviewing all of his data, and collaborating with the patient's care team: 35 minutes Charges/Coding Visit Charges Inpatient E&M: 35241 Subs Hosp L2 06/20/23 1616 <Electronically signed by Milton Bergeron DO> Cosigner Signature (if applicable): CC: ~ Signed [facility] Work Phone: 1(677) 547-338702-17-2024 History and physical note Author Devon Cutler [facility] June 19, 2023 2:52pm Note Date/Time June 19, 2023 1:43pm [facility] Medical Records Department [address] [place] [id number] H&P Exam - Hospitalist 06/19/23 1342 MR#: [id number] Acct: [id number] Name: CHOCO MALDONADO Rep #:[id number] : 1960 62 From: Devon Cutler MD PCP: Dr. Linda Parish MD Status:ADM I N Location: [place] [address] HPI - General General Date of Admission: 06/19/23 Date of Service: 06/19/23 Chief Complaint: Acute on chronic anemia secondary to blood loss HPI Narrative CHOCO MALDONADO, is a 62 M with history of severe diverticulitis complicated by perforation s/p sigmoidectomy and colostomy in place, Raynaud's syndrome withoutgangrene, peripheral vascular disease, psoriasis, redo of right above- knee popliteal to posterior tibial bypass with reversed right saphenous vein and ligation of prior femoropopliteal trunk bypass on 05/14/2023 at [facility] and aspirin. He was recently admitted for concerns regarding acute on chronic anemia and GI bleed. He underwent Upper endoscopy on 06/08/2023 showed normal esophagus, small hiatal hernia no gross lesions in the third portion of duodenum. There was a end colostomy, there was stool in the descending colon at the splenic flexure inthe transverse and descending and ascending. No blood was noted. Plan was to repeat bowel prep and colonoscopy. Today, Presents with dark black stools in her colostomy bag with progressive worsening of his leg pain and fatigue. There is some associated dizziness and lightheadedness. No falls. On evaluation in the ED he was found to have hemoglobin of 5.8 gm/dL. [facility] Medical History Arthritis Diverticulitis GERD (gastroesophageal reflux disease) Heart murmur Hypertension Polycythemia Psoriasis Vertigo Home Medications atorvastatin 20 mg tablet 20 mg PO QHS 09/17/15 [History Last Taken 06/18/23] nifedipine 30 mg tablet,extended release 30 mg PO DAILY PRN raynauds syndrome 09/17/15 [History Last Taken Unknown] aspirin 81 mg tablet,delayed release 81 mg PO DAILY 09/20/20 [History Last Taken 06/18/23] fluoxetine 20 mg capsule 20 mg PO DAILY 09/20/20 [History Last Taken 06/18/23] ixekizumab 80 mg/mL subcutaneous auto-injector (Taltz Autoinjector) 80 mg subcutQMONTH 09/20/20 [History Last Taken 05/24/23] rizatriptan 10 mg disintegrating tablet 10 mg PO PRN PRN Migraine Headache 09/20/20 [History Last Taken Unknown] amitriptyline 50 mg tablet 50 mg PO QHS 01/17/22 [History Last Taken 06/18/23] losartan 25 mg tablet 25 mg PO DAILY 01/17/22 [History Last Taken 06/18/23] ondansetron 4 mg disintegrating tablet 4 mg PO Q8H PRN nausea and vomiting #10 tabs 01/17/22 [Rx Last Taken Unknown] cyclobenzaprine 10 mg tablet 10 mg PO TID PRN muscle spasms 06/07/23 [History Last Taken Unknown] gabapentin 300 mg capsule 300 mg PO Q12H neuropathy/nerve pain 06/07/23 [History Last Taken 06/18/23] oxycodone 5 mg tablet 5 mg PO Q6H PRN pain (scale score 4-6) 06/07/23 [History Last Taken Unknown] pantoprazole 40 mg tablet,delayed release 40 mg PO DAILY heart burn 06/07/23 [History Last Taken 06/18/23] rivaroxaban 20 mg tablet (Xarelto) 20 mg PO QPM blood thinner 06/07/23 [History Last Taken Unknown] iron 150 mg-vit C 60 mg-folate 1 [id number]-kkhnihl tablet (Niferex (Sumalate-Quatrefolic)) 1 tab PO DAILY #60 tabs 06/10/23 [Rx Last Taken 06/18/23] oxycodone-acetaminophen 5 mg-325 mg tablet 1 tab PO BID PRN pain 06/19/23 [History Last Taken 06/19/23] Allergy/AdvReac Type Severity Reaction Status Date / Time verapamil Allergy Rash Verified 06/19/23 11:58 Surgical History Hx of cardiac catheterization Social History Smoking Status: Former smoker substance use type: does not use ROS Review of Systems ROS Unobtainable: Denies due to encephalopathy, due to endotracheal tube, due tomental condition, due to mental status or other Constitutional Constitutional: Reports fatigue, malaise and weakness Eyes Eyes: Denies blurry vision, change in eye color, change in vision, discharge from eye(s), double vision, erythema, eye pain, loss of vision or other ENT HEENT: Denies abnormal hearing, dysphagia, ear pain, epistaxis, headache(s), hearing loss, nasal congestion, nasal discharge, post nasal drip, sinus pressure, sore throat or other Cardiovascular Cardiovascular: Reports claudication and edema Respiratory/Chest Respiratory/Chest: Denies cough, dyspnea, excessive phlegm production, hemoptysis, productive cough, shortness of breath at rest, shortness of breath with exertion, wheezing or other Gastrointestinal Gastrointestinal: Reports melena Musculoskeletal Musculoskeletal: Reports arthralgias and back pain Vital Signs Vital Signs Vital Signs: 06/19/23 11:59 Temperature 96.3 F L Temperature Source Temporal Pulse Rate 87 Respiratory Rate 16 Blood Pressure 132/61 H Blood Pressure Mean 84 Pulse Ox 98 Oxygen Delivery Method Room Air Weight Weight: 201 lb Body Mass Index (BMI) 26.5 Physical Exam Const alert and oriented x3 HEENT normocephalic Eyes PERRL Neck supple Cardio no gallops and no clicks Cardio Narrative: Systolic ejection murmur GI soft to palpation GI Narrative: Melena present in the colostomy bag Extremity Extremity Narrative: Tenderness, edema over the right lower extremity, surgical scars are healing well Neuro Sensorium / Orientation: awake and alert Results Medical Records Data Attestation: I reviewed the patient's medical records Lab / Micro Data Attestation: I reviewed the patient's lab results. Lab results narrative: Hemoglobin of 5.7, MCV 88.4 lactic acid 1.1 creatinine 0.9 platelet count 566. 06/19/23 12:35 06/19/23 12:35 Labs: Laboratory Results - last 24 hr 06/19/23 12:35: WBC 9.6, RBC 2.24 L, Hgb 5.7 L*, Hct 19.8 L, MCV 88.4, MCH 25.4 L, MCHC 28.8 L, RDW Std Deviation 52.2 H, RDW Coeff of Eze 16.3 H, Plt Count 566H, MPV 9.1, Immature Gran % (Auto) 0.700, Neut % (Auto) 61.4, Lymph % (Auto) 28.7, Lenoir % (Auto) 4.6, Eos % (Auto) 3.8, Baso % (Auto) 0.8, Absolute Neuts (auto) 5.9, Absolute Lymphs (auto) 2.74, Nucleated RBC % 0, Diff Path Review Mayfoll, Sodium 137, Potassium 3.7, Chloride 107, Carbon Dioxide 25.0, Anion Gap 5,BUN 21 H, Creatinine 0.92, Estim Creat Clear Calc 95.29, Est GFR (MDRD) Af Amer 107, Est GFR (MDRD) Non-Af 88, BUN/Creatinine Ratio 22.7 H, Glucose 111 H, Lactic Acid 1.1, Calcium 8.3 L, Blood Type O POSITIVE, Antibody Screen NEGATIVE,Crossmatch See Detail Micro: Microbiology 06/19/23 12:42 Stool Stool Occult Blood (VENKATA) - Final Occult Blood Positive Assessment & Plan Assessment/Plan (1) Symptomatic anemia: PLAN: Plan Mr Maldonado, 62-year-old male presents to the ED with concerns regarding worseningfatigue and black tarry bowel movements. He is on chronic anticoagulation for peripheral vascular disease with recent bypass done at [facility] and was also recently discharged from [facility] for similar episodes of concern bleeding. 1. Suspected GI bleeding: The likely source of bleeding remains to be upper given the melena, could be a small bowel bleeding also. His last upper endoscopy was normal. The differentials for his bleeding includes arteriovenousmalformation related bleeding as there is a slow but steady ooze with anticoagulation, ulcer related bleeding, neoplasm. Gastroenterology consult wasplaced and Dr. Reyes was updated through the ED regarding the admission. Appreciate his input -2 large-bore IV cannulas -IV Protonix 40 mg twice daily -CBC twice daily monitoring -Gastroenterology consult placed -Hold Eliquis for now given the recent bleeding -Blood transfusion to maintain hemoglobin greater than 7 -Believe the plan for video capsule endoscopy for further evaluation if the repeat evaluation is negative per gastroenterology -Continue iron supplementation 2. Severe peripheral vascular disease: -He underwent redo of right above-knee popliteal to posterior tibial bypass withreversed right saphenous vein and ligation of prior femoropopliteal trunk bypasson 05/14/2023 - Will repeat arterial Doppler given the worsening pain at this time, likely reason for the pain is the anemia and anticipate improvement with blood transfusion 3. Chronic pain: Chronic back pain and PVD related plain. Follows up with painclinic here at [facility]. Will continue outpatient opioid regimen 4. Hypertension: Continue losartan, nifedipine 5. GERD: Continue Protonix IV twice daily 6. Psoriasis: Uses ixekizumab on outpt basis 7. Depression with anxiety: Continue Prozac 8. DVT prophylaxis: Systemic anticoagulation contraindicated due to suspected acute GI bleeding. Charges/Coding Visit Charges Inpatient E&M: 33964 Init Hosp L2 06/19/23 1452 <Electronically signed by Devon Cutlre MD> Cosigner Signature (if applicable): CC: Dr. Devon Cutler MD; Dr. Linda Parish MD~ Signed [facility] Work Phone: [phone]) 707-488802-17-2024 History and physical note Author Devon Cutler [facility] June 19, 2023 2:52pm Note Date/Time June 19, 2023 1:43pm [facility] Medical Records Department [address] [place] [id number] H&P Exam - Hospitalist 06/19/23 1342 MR#: [id number] Acct: [id number] Name: CHOCO MALDONADO Rep #:[id number] : 1960 62 From: Devon Cutler MD PCP: Dr. Linda Parish MD Status:ADM I N Location: [place] [address] HPI - General General Date of Admission: 06/19/23 Date of Service: 06/19/23 Chief Complaint: Acute on chronic anemia secondary to blood loss HPI Narrative CHOCO MALDONADO, is a 62 M with history of severe diverticulitis complicated by perforation s/p sigmoidectomy and colostomy in place, Raynaud's syndrome withoutgangrene, peripheral vascular disease, psoriasis, redo of right above- knee popliteal to posterior tibial bypass with reversed right saphenous vein and [facility]. He was recently admitted for concerns regarding acute on chronic anemia and GI bleed. He underwent Upper endoscopy on 06/08/2023 showed normal esophagus, small hiatal hernia no gross lesions in the third portion of duodenum. There was a end colostomy, there was stool in the descending colon at the splenic flexure inthe transverse and descending and ascending. No blood was noted. Plan was to repeat bowel prep and colonoscopy. Today, Presents with dark black stools in her colostomy bag with progressive worsening of his leg pain and fatigue. There is some associated dizziness and lightheadedness. No falls. On evaluation in the ED he was found to have hemoglobin of 5.8 gm/dL. [facility] Medical History Arthritis Diverticulitis GERD (gastroesophageal reflux disease) Heart murmur Hypertension Polycythemia Psoriasis Vertigo Home Medications atorvastatin 20 mg tablet 20 mg PO QHS 09/17/15 [History Last Taken 06/18/23] nifedipine 30 mg tablet,extended release 30 mg PO DAILY PRN raynauds syndrome 09/17/15 [History Last Taken Unknown] aspirin 81 mg tablet,delayed release 81 mg PO DAILY 09/20/20 [History Last Taken 06/18/23] fluoxetine 20 mg capsule 20 mg PO DAILY 09/20/20 [History Last Taken 06/18/23] ixekizumab 80 mg/mL subcutaneous auto-injector (Taltz Autoinjector) 80 mg subcutQMONTH 09/20/20 [History Last Taken 05/24/23] rizatriptan 10 mg disintegrating tablet 10 mg PO PRN PRN Migraine Headache 09/20/20 [History Last Taken Unknown] amitriptyline 50 mg tablet 50 mg PO QHS 01/17/22 [History Last Taken 06/18/23] losartan 25 mg tablet 25 mg PO DAILY 01/17/22 [History Last Taken 06/18/23] ondansetron 4 mg disintegrating tablet 4 mg PO Q8H PRN nausea and vomiting #10 tabs 01/17/22 [Rx Last Taken Unknown] cyclobenzaprine 10 mg tablet 10 mg PO TID PRN muscle spasms 06/07/23 [History Last Taken Unknown] gabapentin 300 mg capsule 300 mg PO Q12H neuropathy/nerve pain 06/07/23 [History Last Taken 06/18/23] oxycodone 5 mg tablet 5 mg PO Q6H PRN pain (scale score 4-6) 06/07/23 [History Last Taken Unknown] pantoprazole 40 mg tablet,delayed release 40 mg PO DAILY heart burn 06/07/23 [History Last Taken 06/18/23] rivaroxaban 20 mg tablet (Xarelto) 20 mg PO QPM blood thinner 06/07/23 [History Last Taken Unknown] iron 150 mg-vit C 60 mg-folate 1 [id number] tablet (Niferex (Sumalate-Quatrefolic)) 1 tab PO DAILY #60 tabs 06/10/23 [Rx Last Taken 06/18/23] oxycodone-acetaminophen 5 mg-325 mg tablet 1 tab PO BID PRN pain 06/19/23 [History Last Taken 06/19/23] Allergy/AdvReac Type Severity Reaction Status Date / Time verapamil Allergy Rash Verified 06/19/23 11:58 Surgical History Hx of cardiac catheterization Social History Smoking Status: Former smoker substance use type: does not use ROS Review of Systems ROS Unobtainable: Denies due to encephalopathy, due to endotracheal tube, due tomental condition, due to mental status or other Constitutional Constitutional: Reports fatigue, malaise and weakness Eyes Eyes: Denies blurry vision, change in eye color, change in vision, discharge from eye(s), double vision, erythema, eye pain, loss of vision or other ENT HEENT: Denies abnormal hearing, dysphagia, ear pain, epistaxis, headache(s), hearing loss, nasal congestion, nasal discharge, post nasal drip, sinus pressure, sore throat or other Cardiovascular Cardiovascular: Reports claudication and edema Respiratory/Chest Respiratory/Chest: Denies cough, dyspnea, excessive phlegm production, hemoptysis, productive cough, shortness of breath at rest, shortness of breath with exertion, wheezing or other Gastrointestinal Gastrointestinal: Reports melena Musculoskeletal Musculoskeletal: Reports arthralgias and back pain Vital Signs Vital Signs Vital Signs: 06/19/23 11:59 Temperature 96.3 F L Temperature Source Temporal Pulse Rate 87 Respiratory Rate 16 Blood Pressure 132/61 H Blood Pressure Mean 84 Pulse Ox 98 Oxygen Delivery Method Room Air Weight Weight: 201 lb Body Mass Index (BMI) 26.5 Physical Exam Const alert and oriented x3 HEENT normocephalic Eyes PERRL Neck supple Cardio no gallops and no clicks Cardio Narrative: Systolic ejection murmur GI soft to palpation GI Narrative: Melena present in the colostomy bag Extremity Extremity Narrative: Tenderness, edema over the right lower extremity, surgical scars are healing well Neuro Sensorium / Orientation: awake and alert Results Medical Records Data Attestation: I reviewed the patient's medical records Lab / Micro Data Attestation: I reviewed the patient's lab results. Lab results narrative: Hemoglobin of 5.7, MCV 88.4 lactic acid 1.1 creatinine 0.9 platelet count 566. 06/19/23 12:35 06/19/23 12:35 Labs: Laboratory Results - last 24 hr 06/19/23 12:35: WBC 9.6, RBC 2.24 L, Hgb 5.7 L*, Hct 19.8 L, MCV 88.4, MCH 25.4 L, MCHC 28.8 L, RDW Std Deviation 52.2 H, RDW Coeff of Eze 16.3 H, Plt Count 566H, MPV 9.1, Immature Gran % (Auto) 0.700, Neut % (Auto) 61.4, Lymph % (Auto) 28.7, Lenoir % (Auto) 4.6, Eos % (Auto) 3.8, Baso % (Auto) 0.8, Absolute Neuts (auto) 5.9, Absolute Lymphs (auto) 2.74, Nucleated RBC % 0, Diff Path Review May[place]oll, Sodium 137, Potassium 3.7, Chloride 107, Carbon Dioxide 25.0, Anion Gap 5,BUN 21 H, Creatinine 0.92, Estim Creat Clear Calc 95.29, Est GFR (MDRD) Af Amer 107, Est GFR (MDRD) Non-Af 88, BUN/Creatinine Ratio 22.7 H, Glucose 111 H, Lactic Acid 1.1, Calcium 8.3 L, Blood Type O POSITIVE, Antibody Screen NEGATIVE,Crossmatch See Detail Micro: Microbiology 06/19/23 12:42 Stool Stool Occult Blood (VENKATA) - Final Occult Blood Positive Assessment & Plan Assessment/Plan (1) Symptomatic anemia: PLAN: Plan Mr Maldonado, 62-year-old male presents to the ED with concerns regarding worseningfatigue and black tarry bowel movements. He is on chronic anticoagulation for peripheral vascular disease with recent bypass done at [facility] and was also recently discharged from [facility] for similar episodes of concern bleeding. 1. Suspected GI bleeding: The likely source of bleeding remains to be upper given the melena, could be a small bowel bleeding also. His last upper endoscopy was normal. The differentials for his bleeding includes arteriovenousmalformation related bleeding as there is a slow but steady ooze with anticoagulation, ulcer related bleeding, neoplasm. Gastroenterology consult wasplaced and Dr. Reyes was updated through the ED regarding the admission. Appreciate his input -2 large-bore IV cannulas -IV Protonix 40 mg twice daily -CBC twice daily monitoring -Gastroenterology consult placed -Hold Eliquis for now given the recent bleeding -Blood transfusion to maintain hemoglobin greater than 7 -Believe the plan for video capsule endoscopy for further evaluation if the repeat evaluation is negative per gastroenterology -Continue iron supplementation 2. Severe peripheral vascular disease: -He underwent redo of right above-knee popliteal to posterior tibial bypass withreversed right saphenous vein and ligation of prior femoropopliteal trunk bypasson 05/14/2023 - Will repeat arterial Doppler given the worsening pain at this time, likely reason for the pain is the anemia and anticipate improvement with blood transfusion 3. Chronic pain: Chronic back pain and PVD related plain. Follows up with painclinic here at [facility]. Will continue outpatient opioid regimen 4. Hypertension: Continue losartan, nifedipine 5. GERD: Continue Protonix IV twice daily 6. Psoriasis: Uses ixekizumab on outpt basis 7. Depression with anxiety: Continue Prozac 8. DVT prophylaxis: Systemic anticoagulation contraindicated due to suspected acute GI bleeding. Charges/Coding Visit Charges Inpatient E&M: 19602 Init Hosp L2 06/19/23 1458 <Electronically signed by Devon Cutler MD> Cosigner Signature (if applicable): CC: Dr. Devon Cutler MD; Dr. Linda Parish MD~ Signed [facility] Work Phone: 1(482) 193-439102-17-2024 Discharge summary Author Murray Sanchez [facility] June 19, 2023 1:39pm Note Date/Time June 19, 2023 12:35pm [facility] Medical Records Department [facility] [place] [address] Emergency Department Summary 06/19/23 MR#: [id number] Acct: [id number] Name: CHOCO MALDONADO Rep #:[id number] : 1960 62 From: Murray Sanchez MD PCP: Dr. Linda Parish MD Status:REG E R Location: ED HPI HPI - GI History of Present Illness Chief Complaint: GI Bleed Detail of Chief Complaint: Low hemoglobin and black stool from ostomy Informant: patient and spouse/S.O. Abdominal Pain/Flank Pain Onset: Yesterday Context: Gradual Onset Timing: Intermittent Quality: Burning Location: Epigastric Current Severity: Moderate Maximum Severity: Moderate Worsened by: Nothing Relieved by: Nothing Nausea/Vomiting/Emesis GI Symptom: Positive for Nausea; Negative for Vomiting Diarrhea/Melena/Hematochezia GI Symptom: Positive for Melena Associated Symptoms Associated Symptoms: Negative for Dysuria, Frequency, Hematuria or Urgency Narrative Narrative: Patient is a 62-year-old male with history of GI bleed. He was admitted earlierthis month. He had an upper and lower GI which were unremarkable. He was seen by Dr. Reyes. states hemoglobin yesterday was 7.3. He now has black stool. He has symptomatic anemia with dyspnea and dyspnea on exertion. He denies chest discomfort with exertion or activity. He is on Eliquis because he had a recent vascularization of his right lower extremity at [facility]. Patient denies headache, visual, ocular auditory symptoms. Patient denies fever, chills or night sweats. He denies weight gain or weight loss. Patient denies dysuria, frequency, urgency or hematuria. Patient does endorse bruising easily. Prior similar symptoms: Yes Recent Ill[facility] Medical History Arthritis Diverticulitis GERD (gastroesophageal reflux disease) Heart murmur Hypertension Polycythemia Psoriasis Vertigo Home Medications atorvastatin 20 mg tablet 20 mg PO QHS 09/17/15 [History Last Taken 06/18/23] nifedipine 30 mg tablet,extended release 30 mg PO DAILY PRN raynauds syndrome 09/17/15 [History Last Taken Unknown] aspirin 81 mg tablet,delayed release 81 mg PO DAILY 09/20/20 [History Last Taken 06/18/23] fluoxetine 20 mg capsule 20 mg PO DAILY 09/20/20 [History Last Taken 06/18/23] ixekizumab 80 mg/mL subcutaneous auto-injector (Taltz Autoinjector) 80 mg subcutQMONTH 09/20/20 [History Last Taken 05/24/23] rizatriptan 10 mg disintegrating tablet 10 mg PO PRN PRN Migraine Headache 09/20/20 [History Last Taken Unknown] amitriptyline 50 mg tablet 50 mg PO QHS 01/17/22 [History Last Taken 06/18/23] losartan 25 mg tablet 25 mg PO DAILY 01/17/22 [History Last Taken 06/18/23] ondansetron 4 mg disintegrating tablet 4 mg PO Q8H PRN nausea and vomiting #10 tabs 01/17/22 [Rx Last Taken Unknown] cyclobenzaprine 10 mg tablet 10 mg PO TID PRN muscle spasms 06/07/23 [History Last Taken Unknown] gabapentin 300 mg capsule 300 mg PO Q12H neuropathy/nerve pain 06/07/23 [History Last Taken 06/18/23] oxycodone 5 mg tablet 5 mg PO Q6H PRN pain (scale score 4-6) 06/07/23 [History Last Taken Unknown] pantoprazole 40 mg tablet,delayed release 40 mg PO DAILY heart burn 06/07/23 [History Last Taken 06/18/23] rivaroxaban 20 mg tablet (Xarelto) 20 mg PO QPM blood thinner 06/07/23 [History Last Taken Unknown] iron 150 mg-vit C 60 mg-folate 1 [id number] tablet (Niferex (Sumalate-Quatrefolic)) 1 tab PO DAILY #60 tabs 06/10/23 [Rx Last Taken 06/18/23] oxycodone-acetaminophen 5 mg-325 mg tablet 1 tab PO BID PRN pain 06/19/23 [History Last Taken 06/19/23] Allergy/AdvReac Type Severity Reaction Status Date / Time verapamil Allergy Rash Verified 06/19/23 11:58 Surgical History Hx of cardiac catheterization Social History Smoking Status: Former smoker substance use type: does not use ROS ROS ED Constitutional Constitutional ED: Denies chills, fever(s), subjective, sweats or weight loss ENT ENT ED: Denies ear pain, rhinorrhea or sore throat Cardiovascular Cardiovascular: Denies chest pain, orthopnea, palpitations, paroxysmal nocturnaldyspnea or racing heartbeat Respiratory/Chest Respiratory/Chest: Reports dyspnea and dyspnea on exertion; Denies cough, orthopnea or paroxysmal nocturnal dyspnea Gastrointestinal Gastrointestinal: Reports abdominal pain, melena and nausea; Denies constipation, diarrhea or vomiting Genitourinary Genitourinary ED: Denies dysuria, hematuria or urinary frequency Musculoskeletal Musculoskeletal: Denies arthralgias, back pain, myalgias or neck pain Integumentary Denies abscess, Abrasions or rash Neurologic Neurologic: Reports weakness; Denies headache(s) or paresthesias Endocrine Endocrinology: Denies polydipsia, polyphagia or polyuria Hematologic/Lymphatic Hematologic/Lymphatic: Denies easy bleeding, easy bruising or lymphadenopathy Allergic/Immunologic Allergic/Immunologic ED: Denies mouth swelling, tongue swelling or urticaria EXAM Physical Exam Const Vital Signs: 06/19/23 11:59 Temperature 96.3 F L Temperature Source Temporal Pulse Rate 87 Respiratory Rate 16 Blood Pressure 132/61 H Blood Pressure Mean 84 Pulse Ox 98 Oxygen Delivery Method Room Air Positive well nourished and well developed Constitutional Narrative: Patient appears ill and pale. General Appearance ED: well developed and pallor HEENT Reports TM's clear and moist mucous membranes normocephalic and atraumatic Tympanic Membrane ED: Yes TM's clear Eyes PERRL and EOMs intact bilaterally General Eye ED: Yes pale conjunctiva; Negative for scleral icterus Neck no lymphadenopathy, supple and no JVD Resp normal respiratory effort and clear to auscultation bilaterally Cardio regular rate, regular rhythm, S1 normal heart sound, S2 normal heart sound and no murmurs GI non-distended and no masses; Negative for non-tender GI Narrative: Patient has black tarry stool from ostomy. Auscultation: hyperactive bowel sounds Palpation: soft and tender epigastric Back/Spine no CVA tenderness Thoracic Spine / Upper Back: Negative for thoracic spinal tenderness Lumbar Spine / Lower Back: Negative for lumbar spinal tenderness Extremity full ROM Extremity Narrative: Recent revascularization of right lower extremity General Extremety ED: Yes edema General Extremity: edema Neuro CN's II-XII intact bilaterally, moves all extremities and no sensory deficits noted Sensorium / Orientation: alert Psych Mood & Affect: depressed Skin Skin Narrative: There is erythema in the creases of the palm. General Skin Exam: pallor; Negative for jaundice MDM MDM MDM Narrative Medical decision making narrative: Patient GI bleed with signs and symptoms of anemia. Patient was typed and crossed 2 units of blood and 1 unit will be administered in the emergency department. Appropriate blood work was obtained. Coags were not obtained sincehe is on Eliquis and value is of no meaning. Dr. Reyes was contacted. He is aware of patient he will see him in consultation. History & Record Review Additional record(s) reviewed:: Prior outpatient record (Recent admission for GIbleed. Discharge summary and Dr. Reyes's note were reviewed.), Prior ED visit and Prior labs Lab Data Attestation: I reviewed the patient's lab results. Lab results narrative: BUN is 21 with a creatinine of 0.92 with a BUN to creatinine ratio 23:1. Lactate is normal. Hemoglobin is 5.7 which is approximately 1.5 to 2 g drop from prior. Patient was typed and crossed for 2 units of blood. Received 1 unit in the emergency department. Labs: Laboratory Results - last 24 hr 06/19/23 12:35 WBC 9.6 RBC 2.24 L Hgb 5.7 L* Hct 19.8 L MCV 88.4 MCH 25.4 L MCHC 28.8 L RDW Std Deviation 52.2 H RDW Coeff of Eze 16.3 H Plt Count 566 H MPV 9.1 Immature Gran % (Auto) 0.700 Neut % (Auto) 61.4 Lymph % (Auto) 28.7 [place] % (Auto) 4.6 Eos % (Auto) 3.8 Baso % (Auto) 0.8 Absolute Neuts (auto) 5.9 Absolute Lymphs (auto) 2.74 Nucleated RBC % [address] Review May foll Sodium 137 Potassium 3.7 Chloride 107 Carbon Dioxide 25.0 Anion Gap 5 BUN 21 H Creatinine 0.92 Estim Creat Clear Calc 95.29 Est GFR (MDRD) Af Amer 107 Est GFR (MDRD) Non-Af 88 BUN/Creatinine Ratio 22.7 H Glucose 111 H Lactic Acid 1.1 Calcium 8.3 L Blood Type O POSITIVE Antibody Screen NEGATIVE Crossmatch See Detail Management Discussion w/another healthcare provider: Hospitalist (Hospitalist was paged foradmission.) and Ground Hand (Dr. Reyes regarding GI bleed) Discharge Plan Dx/Rx/DC Orders Clinical Impression: Acute gastrointestinal bleeding, Raynaud disease, S/P femoral-popliteal bypass surgery, Symptomatic anemia, Signs and symptoms of anemia, Transfusion of blood during current hospitalization, Anticoagulant long-term use Disposition Disposition: Acute Care Hospital [facility] What to do if you have Problems For any increased pain, shortness of breath, bleeding, nausea or vomiting, chestpain, or any unexpected problems, contact your Primary Care Provider. Call [facility] ([phone]) or report to the closest Emergency Room. Call 911 if necessary. 06/19/23 0190 <Electronically signed by Murray Sanchez MD> Cosigner Signature (if applicable): CC: Dr. Linda Parish MD ~ Signed [facility] Work Phone: [phone] 144-147302-17-2024 Discharge summary Author Murray Sanchez [facility] June 19, 2023 1:39pm Note Date/Time June 19, 2023 12:35pm [facility] Medical Records Department [address] [place] [address] Emergency Department Summary 06/19/23 MR#: [id number] Acct: [id number] Name: CHOCO MALDONADO Rep #:[id number] : 1960 62 From: Murray Sanchez MD PCP: Dr. Linda Parish MD Status:REG E R Location: ED HPI HPI - GI History of Present Illness Chief Complaint: GI Bleed Detail of Chief Complaint: Low hemoglobin and black stool from ostomy Informant: patient and spouse/S.O. Abdominal Pain/Flank Pain Onset: Yesterday Context: Gradual Onset Timing: Intermittent Quality: Burning Location: Epigastric Current Severity: Moderate Maximum Severity: Moderate Worsened by: Nothing Relieved by: Nothing Nausea/Vomiting/Emesis GI Symptom: Positive for Nausea; Negative for Vomiting Diarrhea/Melena/Hematochezia GI Symptom: Positive for Melena Associated Symptoms Associated Symptoms: Negative for Dysuria, Frequency, Hematuria or Urgency Narrative Narrative: Patient is a 62-year-old male with history of GI bleed. He was admitted earlierthis month. He had an upper and lower GI which were unremarkable. He was seen by Dr. Reyes. states hemoglobin yesterday was 7.3. He now has black stool. He has symptomatic anemia with dyspnea and dyspnea on exertion. He denies chest discomfort with exertion or activity. He is on Eliquis because he had a recent vascularization of his right lower extremity at [facility]. Patient denies headache, visual, ocular auditory symptoms. Patient denies fever, chills or night sweats. He denies weight gain or weight loss. Patient denies dysuria, frequency, urgency or hematuria. Patient does endorse bruising easily. Prior similar symptoms: Yes Recent Illness/Hospitalization: Yes [facility] Medical History Arthritis Diverticulitis GERD (gastroesophageal reflux disease) Heart murmur Hypertension Polycythemia Psoriasis Vertigo Home Medications atorvastatin 20 mg tablet 20 mg PO QHS 09/17/15 [History Last Taken 06/18/23] nifedipine 30 mg tablet,extended release 30 mg PO DAILY PRN raynauds syndrome 09/17/15 [History Last Taken Unknown] aspirin 81 mg tablet,delayed release 81 mg PO DAILY 09/20/20 [History Last Taken 06/18/23] fluoxetine 20 mg capsule 20 mg PO DAILY 09/20/20 [History Last Taken 06/18/23] ixekizumab 80 mg/mL subcutaneous auto-injector (Taltz Autoinjector) 80 mg subcutQMONTH 09/20/20 [History Last Taken 05/24/23] rizatriptan 10 mg disintegrating tablet 10 mg PO PRN PRN Migraine Headache 09/20/20 [History Last Taken Unknown] amitriptyline 50 mg tablet 50 mg PO QHS 01/17/22 [History Last Taken 06/18/23] losartan 25 mg tablet 25 mg PO DAILY 01/17/22 [History Last Taken 06/18/23] ondansetron 4 mg disintegrating tablet 4 mg PO Q8H PRN nausea and vomiting #10 tabs 01/17/22 [Rx Last Taken Unknown] cyclobenzaprine 10 mg tablet 10 mg PO TID PRN muscle spasms 06/07/23 [History Last Taken Unknown] gabapentin 300 mg capsule 300 mg PO Q12H neuropathy/nerve pain 06/07/23 [History Last Taken 06/18/23] oxycodone 5 mg tablet 5 mg PO Q6H PRN pain (scale score 4-6) 06/07/23 [History Last Taken Unknown] pantoprazole 40 mg tablet,delayed release 40 mg PO DAILY heart burn 06/07/23 [History Last Taken 06/18/23] rivaroxaban 20 mg tablet (Xarelto) 20 mg PO QPM blood thinner 06/07/23 [History Last Taken Unknown] iron 150 mg-vit C 60 mg-folate 1 [id number] tablet (Niferex (Sumalate-Quatrefolic)) 1 tab PO DAILY #60 tabs 06/10/23 [Rx Last Taken 06/18/23] oxycodone-acetaminophen 5 mg-325 mg tablet 1 tab PO BID PRN pain 06/19/23 [History Last Taken 06/19/23] Allergy/AdvReac Type Severity Reaction Status Date / Time verapamil Allergy Rash Verified 06/19/23 11:58 Surgical History Hx of cardiac catheterization Social History Smoking Status: Former smoker substance use type: does not use ROS ROS ED Constitutional Constitutional ED: Denies chills, fever(s), subjective, sweats or weight loss ENT ENT ED: Denies ear pain, rhinorrhea or sore throat Cardiovascular Cardiovascular: Denies chest pain, orthopnea, palpitations, paroxysmal nocturnaldyspnea or racing heartbeat Respiratory/Chest Respiratory/Chest: Reports dyspnea and dyspnea on exertion; Denies cough, orthopnea or paroxysmal nocturnal dyspnea Gastrointestinal Gastrointestinal: Reports abdominal pain, melena and nausea; Denies constipation, diarrhea or vomiting Genitourinary Genitourinary ED: Denies dysuria, hematuria or urinary frequency Musculoskeletal Musculoskeletal: Denies arthralgias, back pain, myalgias or neck pain Integumentary Denies abscess, Abrasions or rash Neurologic Neurologic: Reports weakness; Denies headache(s) or paresthesias Endocrine Endocrinology: Denies polydipsia, polyphagia or polyuria Hematologic/Lymphatic Hematologic/Lymphatic: Denies easy bleeding, easy bruising or lymphadenopathy Allergic/Immunologic Allergic/Immunologic ED: Denies mouth swelling, tongue swelling or urticaria EXAM Physical Exam Const Vital Signs: 06/19/23 11:59 Temperature 96.3 F L Temperature Source Temporal Pulse Rate 87 Respiratory Rate 16 Blood Pressure 132/61 H Blood Pressure Mean 84 Pulse Ox 98 Oxygen Delivery Method Room Air Positive well nourished and well developed Constitutional Narrative: Patient appears ill and pale. General Appearance ED: well developed and pallor HEENT Reports TM's clear and moist mucous membranes normocephalic and atraumatic Tympanic Membrane ED: Yes TM's clear Eyes PERRL and EOMs intact bilaterally General Eye ED: Yes pale conjunctiva; Negative for scleral icterus Neck no lymphadenopathy, supple and no JVD Resp normal respiratory effort and clear to auscultation bilaterally Cardio regular rate, regular rhythm, S1 normal heart sound, S2 normal heart sound and no murmurs GI non-distended and no masses; Negative for non-tender GI Narrative: Patient has black tarry stool from ostomy. Auscultation: hyperactive bowel sounds Palpation: soft and tender epigastric Back/Spine no CVA tenderness Thoracic Spine / Upper Back: Negative for thoracic spinal tenderness Lumbar Spine / Lower Back: Negative for lumbar spinal tenderness Extremity full ROM Extremity Narrative: Recent revascularization of right lower extremity General Extremety ED: Yes edema General Extremity: edema Neuro CN's II-XII intact bilaterally, moves all extremities and no sensory deficits noted Sensorium / Orientation: alert Psych Mood & Affect: depressed Skin Skin Narrative: There is erythema in the creases of the palm. General Skin Exam: pallor; Negative for jaundice MDM MDM MDM Narrative Medical decision making narrative: Patient GI bleed with signs and symptoms of anemia. Patient was typed and crossed 2 units of blood and 1 unit will be administered in the emergency department. Appropriate blood work was obtained. Coags were not obtained sincehe is on Eliquis and value is of no meaning. Dr. Reyes was contacted. He is aware of patient he will see him in consultation. History & Record Review Additional record(s) reviewed:: Prior outpatient record (Recent admission for GIbleed. Discharge summary and Dr. Reyes's note were reviewed.), Prior ED visit and Prior labs Lab Data Attestation: I reviewed the patient's lab results. Lab results narrative: BUN is 21 with a creatinine of 0.92 with a BUN to creatinine ratio 23:1. Lactate is normal. Hemoglobin is 5.7 which is approximately 1.5 to 2 g drop from prior. Patient was typed and crossed for 2 units of blood. Received 1 unit in the emergency department. Labs: Laboratory Results - last 24 hr 06/19/23 12:35 WBC 9.6 RBC 2.24 L Hgb 5.7 L* Hct 19.8 L MCV 88.4 MCH 25.4 L MCHC 28.8 L RDW Std Deviation 52.2 H RDW Coeff of Eze 16.3 H Plt Count 566 H MPV 9.1 Immature Gran % (Auto) 0.700 Neut % (Auto) 61.4 Lymph % (Auto) 28.7 [place] % (Auto) 4.6 Eos % (Auto) 3.8 Baso % (Auto) 0.8 Absolute Neuts (auto) 5.9 Absolute Lymphs (auto) 2.74 Nucleated RBC % 0 Diff Path Review May foll Sodium 137 Potassium 3.7 Chloride 107 Carbon Dioxide 25.0 Anion Gap 5 BUN 21 H Creatinine 0.92 Estim Creat Clear Calc 95.29 Est GFR (MDRD) Af Amer 107 Est GFR (MDRD) Non-Af 88 BUN/Creatinine Ratio 22.7 H Glucose 111 H Lactic Acid 1.1 Calcium 8.3 L Blood Type O POSITIVE Antibody Screen NEGATIVE Crossmatch See Detail Management Discussion w/another healthcare provider: Hospitalist (Hospitalist was paged foradmission.) and Ground Hand (Dr. Reyes regarding GI bleed) Discharge Plan Dx/Rx/DC Orders Clinical Impression: Acute gastrointestinal bleeding, Raynaud disease, S/P femoral-popliteal bypass surgery, Symptomatic anemia, Signs and symptoms of anemia, Transfusion of blood during current hospitalization, Anticoagulant long-term use Disposition Disposition: Acute Care Hospital [facility] What to do if you have Problems For any increased pain, shortness of breath, bleeding, nausea or vomiting, chestpain, or any unexpected problems, contact your Primary Care Provider. Call [facility] ([phone]) or report to the closest Emergency Room. Call 911 if necessary. 06/19/23 1383 <Electronically signed by Murray Sanchez MD> Cosigner Signature (if applicable): CC: Dr. Linda Parish MD ~ Signed [facility] Work Phone: [phone] 214-923102-17-2024 History of Present illness Narrative* Linda Parish MD - 06/19/2023 10:57 AM EST Patient presents with: Hospital Follow Up: [facility] GI Bleed 06/07/23-06/10/23 HPI: Patient presents today for office visit for hospital follow up. [facility] Near syncope and had dark stools in ostomy bag. Had hb of 5.4. transfused 2 units prbcs on protonix drip. Had been on asa and xarelto due to recent vascular surgery. Egd 06/09 that showed normal finding. 06/10 had colonoscopy with poor prep. No lesions seen but limited view. Was to follow with Dr Reyes for capsule endoscopy. They cannot get him in until October. Anticoagulation with xarelto and asa held on discharge. To follow with vascular surgery before resumption. Hb was 7.3 on 06/09. Stool was positive for blood. Sent home on protonix. Has seen hematology since admission. Recently began on iron. He has an appt with Dr Alonso on 06/22. She had asked him to check if they would allow him to stay onxarelto but stop asa on discharge. He resumed xarelto at 2.5 mg a day. He has repeat labs including cbc pending that were drawn today. Results likely not back until at least tonight. His stools had gotten better after being in the hospital. Stools turned black again prior to being on iron. His hb dropped again 2 days ago. Started feeling lightheaded again yesterday. No chest pain or shortness of breath. No abd pain. Has been having increased pain in his left leg. Swelling has been getting progressively worse over the last two days. No hx of dvt or pe. No warmth. MEDICATIONS: Current Outpatient Medications Medication Sig polyethylene glycol 3350 17 gram packet Take 1 Packet by mouth once daily as needed for constipation. Dissolve dose in 4 - 8 ounces of liquid and take as directed. (Patient not taking: Reported on 06/17/2023) rivaroxaban (XARELTO) 20 mg tablet Take 1 tablet by mouth daily with dinner. (Patient not taking: Reported on 06/17/2023) gabapentin (NEURONTIN) 300 mg capsule Take 1 capsule by mouth every 12 hours. FLUoxetine (PROZAC) 20 mg capsule Take 1 capsule by mouth once daily. gabapentin (NEURONTIN) 100 mg capsule TAKE 1 CAPSULE BY MOUTH THREE TIMES DAILY FOR [address] (PROTONIX) 40 mg tablet Take 1 tablet by mouth daily before breakfast. Take on empty stomach, 1/2 hr before meal. atorvastatin (LIPITOR) 40 mg tablet Take 1 tablet by mouth daily at bedtime. aspirin 81 mg chewable tablet Take 81 mg by mouth once daily. TREMFYA 100 mg/mL AutoInjector every 3 months. amitriptyline (ELAVIL) 25 mg tablet Take 1 tablet by mouth daily at bedtime. fremanezumab-vfrm (AJOVY AUTOINJECTOR) 225 mg/1.5 mL auto-injector Ajovy 225 mg/1.5 mL subcutaneousauto-injector Inject 1.5 mL subcutaneously once a month rimegepant (NURTEC ODT) 75 mg disintegrating tablet Nurtec ODT 75 mg disintegrating tablet Take 1 tab under tongue at onset of migraine. Max 1 in 24 hours. acetaminophen (TYLENOL) 325 mg tablet Take 650 mg by mouth every 6 hours as needed. No current facility-administered medications for this visit. ALLERGIES: ALLERGIES Allergen Reactions Verapamil Rash PAST MEDICAL HISTORY Diagnosis Date Acute diverticulitis Aortic insufficiency Bursitis of elbow left Coronary artery disease mild nonobstructive Diverticulitis Migraines PAD (peripheral artery disease) (HCC) Palpitations Pinched nerve 11/04/2020 low back Psoriasis Raynaud disease SVT (supraventricular tachycardia) Tobacco abuse PAST SURGICAL HISTORY Procedure Laterality Date COLONOSCOPY FLX DX W/COLLJ SPEC WHEN PFRMD 05/23/2014 Colonoscopy COLONOSCOPY FLX DX W/COLLJ SPEC WHEN PFRMD 09/24/2017 Colonoscopy COLONOSCOPY FLX DX W/COLLJ SPEC WHEN PFRMD 04/16/2021 ESOPHAGOGASTRODUODENOSCOPY TRANSORAL DIAGNOSTIC 05/23/2014 EGD ESOPHAGOGASTRODUODENOSCOPY TRANSORAL DIAGNOSTIC 08/15/2014 EGD HEMORRHOIDECTOMY INT & XTRNL 2/> COLUMN/FAHEEM 10/01/2017 left posterior PAST SURGICAL HISTORY OF 2008 Pain injections lumbar PAST SURGICAL HISTORY OF 08/03/2022 colostomy PAST SURGICAL HISTORY OF Right 12/2022 right popliteal to tibioperoneal trunk bypass RT/LT [facility] 08/09/2020 [facility] FAMILY HISTORY Problem Relation Age of Onset Breast Cancer Mother Diabetes Father Heart Father other (Raynauds) Daughter other (Raynauds) Son Diabetes Maternal Grandfather Social History Tobacco Use Smoking status: Former Packs/day: 1.00 Years: 39.00 Additional pack years: 0.00 Total pack years: 39.00 Types: Cigarettes Start date: 02/11/1981 Quit date: 04/24/2023 Years since quittin.1 Smokeless tobacco: Never Vaping Use Vaping Use: Never used Substance Use Topics Alcohol use: Yes Comment: 3-4 drinks per day 5 days per week Drug use: No Reviewed current medications, allergies, past medical history, surgical history, family history andsocial history today. REVIEW OF SYSTEMS All other reviewed and negative other than HPI. VITALS: BP 142/61 Pulse 101 Resp 18 Wt 90.7 kg (200 lb) SpO2 97% BMI 27.31 kg/m Last 4 Encounter Wt Readings: Date: Wt: 06/19/2023 90.7 kg (200 lb) 06/17/2023 89.4 kg (197 lb) 05/28/2023 89.6 kg (197 lb 8 oz) 05/22/2023 86.6 kg (191 lb) PHYSICAL EXAMINATION: General appearance: very pal Head: Normocephalic, no masses, lesions, tenderness or abnormalities Lungs: Lungs clear to auscultation. No wheezing, rhonchi, rales Heart: RRR without murmur, gallop, or rubs. No ectopy Abdomen: soft, ostomy shows black tarry stools. Extremities: right leg shows two plus edema which he states is new. No redness or warmth. Open areaat mid knee. ASSESSMENT/PLAN: 1. Melena - ICD9: 578.1, ICD10: K92.1 (primary diagnosis) - given his melena has returned prior to iron, he is slightly tachy, had some drop in hb two days again and is feeling worse, he will return to ER for eval rather than wait on hb that likely won't come back until at some point this weekend. 2. Migraine with aura, not intractable, without status migrainosus - ICD9: 346.00, ICD10: G43.109 - stable. 3. Raynaud's phenomenon without gangrene - ICD9: 443.0, ICD10: I73.00 - stable. 4. PVD (peripheral vascular disease) (HCC) - ICD9: 443.9, ICD10: I73.9 - per vascular. 5. Primary hypertension - ICD9: 401.9, ICD10: I10 - Uncontrolled 6. Bilateral carotid artery stenosis - ICD9: 433.10, 433.30, ICD10: I65.23 -as above. 7. Edema, unspecified type - ICD9: 782.3, ICD10: R60.9 - may require vascular studies that I cannot do over the weekend. Back to er. 8. Gastrointestinal hemorrhage, unspecified gastrointestinal hemorrhage type - ICD9: 578.9, ICD10: K92.2 -as above. Linda Parish [facility] Instructions* Patient Instructions* Max Bateman - 06/17/2023 10:08 AM EST Iron pill every MWF [facility] History of Present illness Narrative* Max Bateman - 06/17/2023 9:00 AM EST Choco Maldonado 1960 06/17/2023 HISTORY OF PRESENT ILLNESS: Choco Maldonado is a 62 year old male history erythrocytosis, appearedsecondary. JAK2 negative Recent divertiuclitis, colectomy PVD In [place] December 2022, had arterial clot, needed a bypass graft. Came back to [place], found to have clot in graft. Now on Xarelto after recanalized Now quite anemic Quit smoking 04/27/2023 Interval History: Mr. Maldonado presents today with his spouse for follow up. He was being seen by hematology initially for polycythemia however he has been anemic at most recent visits. Since last OV he was admitted to [facility] for possible GI bleed last week. He notes that he has had several issues since vascular surgery 30 days ago. Sharp knee pains since surgery, poor wound healing, swelling. Hgb dropped to 6.7. He received 3 units PRBCs per spouse while admitted. Has ostomy for diverticulitis. C-scope and EGD performed during admission without clear evidence of bleed. C-scope notes poor prep. Recommended capsule. He denies overt sys of bleeding. Stools in ostomy have been darker. Started on PO iron during admission. Denies BRB. He denies stool per rectum. Notes PASTOR, lightheaded, not worsening. Remains on low dose anticoag, his spouse reports that his vascular surgeon told him to stay on it. He has appt on Wednesday Appetite ok, feels like not drinking enough water. Denies fevers, chills, NS. PAST MEDICAL HISTORY Diagnosis Date Acute diverticulitis Aortic insufficiency Bursitis of elbow left Coronary artery disease mild nonobstructive Diverticulitis Migraines PAD (peripheral artery disease) (HCC) Palpitations Pinched nerve 11/04/2020 low back Psoriasis Raynaud disease SVT (supraventricular tachycardia) Tobacco abuse PAST SURGICAL HISTORY Procedure Laterality Date COLONOSCOPY FLX DX W/COLLJ SPEC WHEN PFRMD 05/23/2014 Colonoscopy COLONOSCOPY FLX DX W/COLLJ SPEC WHEN PFRMD 09/24/2017 Colonoscopy COLONOSCOPY FLX DX W/COLLJ SPEC WHEN PFRMD 04/16/2021 ESOPHAGOGASTRODUODENOSCOPY TRANSORAL DIAGNOSTIC 05/23/2014 EGD ESOPHAGOGASTRODUODENOSCOPY TRANSORAL DIAGNOSTIC 08/15/2014 EGD HEMORRHOIDECTOMY INT & XTRNL 2/> COLUMN/FAHEEM 10/01/2017 left posterior PAST SURGICAL HISTORY OF 2008 Pain injections lumbar PAST SURGICAL HISTORY OF 08/03/2022 colostomy PAST SURGICAL HISTORY OF Right 12/2022 right popliteal to tibioperoneal trunk bypass RT/LT HEART CATHETERS 08/09/2020 [facility] FAMILY HISTORY Problem Relation Age of Onset Breast Cancer Mother Diabetes Father Heart Father other (Raynauds) Daughter other (Raynauds) Son Diabetes Maternal Grandfather Social History Tobacco Use Smoking status: Former Packs/day: 1.00 Years: 39.00 Additional pack years: 0.00 Total pack years: 39.00 Types: Cigarettes Start date: 02/11/1981 Quit date: 04/24/2023 Years since quittin.1 Smokeless tobacco: Never Vaping Use Vaping Use: Never used Substance Use Topics Alcohol use: Yes Comment: 3-4 drinks per day 5 days per week Drug use: No ALLERGIES: ALLERGIES Allergen Reactions Verapamil Rash CURRENT OUTPATIENT MEDICATIONS: gabapentin (NEURONTIN) 300 mg capsule Take 1 capsule by mouth every 12 hours. FLUoxetine (PROZAC) 20 mg capsule Take 1 capsule by mouth once daily. gabapentin (NEURONTIN) 100 mg capsule TAKE 1 CAPSULE BY MOUTH THREE TIMES DAILY FOR [address] (PROTONIX) 40 mg tablet Take 1 tablet by mouth daily before breakfast. Take on empty stomach, 1/2 hr before meal. atorvastatin (LIPITOR) 40 mg tablet Take 1 tablet by mouth daily at bedtime. aspirin 81 mg chewable tablet Take 81 mg by mouth once daily. TREMFYA 100 mg/mL AutoInjector every 3 months. amitriptyline (ELAVIL) 25 mg tablet Take 1 tablet by mouth daily at bedtime. fremanezumab-vfrm (AJOVY AUTOINJECTOR) 225 mg/1.5 mL auto-injector Ajovy 225 mg/1.5 mL subcutaneousauto-injector Inject 1.5 mL subcutaneously once a month rimegepant (NURTEC ODT) 75 mg disintegrating tablet Nurtec ODT 75 mg disintegrating tablet Take 1 tab under tongue at onset of migraine. Max 1 in 24 hours. acetaminophen (TYLENOL) 325 mg tablet Take 650 mg by mouth every 6 hours as needed. polyethylene glycol 3350 17 gram packet Take 1 Packet by mouth once daily as needed for constipation. Dissolve dose in 4 - 8 ounces of liquid and take as directed. (Patient not taking: Reported on 06/17/2023) rivaroxaban (XARELTO) 20 mg tablet Take 1 tablet by mouth daily with dinner. (Patient not taking: Reported on 06/17/2023) REVIEW OF SYSTEMS: GENERAL: No fever, night sweats, weight loss or malaise. All other reviewed and negative other than HPI. All systems reviewed on 06/17/2023 with pertinent positives and negatives as outlined in the interval history. PHYSICAL EXAMINATION: VITAL SIGNS: BP 139/66 Pulse 86 Temp 97.5 Wt 197 lb (89.4kg) SpO2 99% GENERAL APPEARANCE: Well appearing, in no acute distress, alert and oriented x3, well-hydrated, well nourished. HEENT: Normocephalic, no sclera icterus, external ears normal Neck: Supple, no JVD. Chest: Clear bilaterally, no wheezes, not labored. Heart: Normal S1 and S2, no abnormal sounds Abdomen: Soft, nontender, nondistended Extremities: L LE edema, at surgical incision. Poorly healing surgical scar. Seeing vasc on Wednesday Neurological: Grossly intact Skin: Warm and dry with no rashes or ulcerations. Hematologic: no bruising or petechiae. Psychiatric: Alert and oriented x3. Emotional well-being assessment was performed. Pt denies depression, distress, and or problems with coping or adjustment. CLINICAL IMPRESSION: Secondary erythrocytosis, anemic now likely secondary to GI bleed, RECOMMENDATION/PLAN: - labs stable, reviewed ED precautions with him today. - follow up with GI, vascular surgery - Recheck cbc on Wednesday iron studies, discussed if less than 7 may require blood. - copper zinc, folate labs added today Follow up in 4 weeks with labs Max Bateman APRN.SIGNAL SUPERVISOR I spent >35 minutes in the visit, with more than 50% of the total csbb-vt-jnej time of the visitin counseling / coordination of care. Portions of this note including HPI, ROS, impression/plan may have been copied forward as to provide important historical information essential in contributing to medical decision making. Documentation has been reviewed and edited as necessary to support clinical decision making for today's visit and to reflect my own independent evaluation of this patient. [facility] Nurse Note* Salma Castorena LPN - 06/17/2023 8:57 AM EST Est. Pt, discuss recent labs, 3 week F/U Salma Castorena LPN documented in [facility] Miscellaneous Notes* Telephone Encounter - Juana Henry RN - 06/15/2023 1:35 PM EST Spoke with patient he is home from the hospital Imported imaging requested from [facility] for review. Patient was to have US on 06/18/23 but can not make it d/t transportation He plans to keep appt 06/04/23 in [place] Will have imaging reviewed by provider and will call to reschedule testing if needed * Telephone Encounter - Rosi Alonso DO - 06/10/2023 11:38 AM EST Patient called me that he is admitted at [facility] for gi bleed and anemia. He had colonscopy and egd- no source was identified. They recommended capsule endoscopy and to stop xarelto and justcontinue aspirin. He is still admitted at the hospital now. He states they did ultrasound of bypassand pvr and they told him that his blood flow was good. He is going to ask about if they are ok with resuming the low dose xarelto while waiting for further gi workup. He is continuing to have significant pain and he missed his pain management appointment due to hospital admission. He is going to call and schedule follow up with vascular surgery documented in this [facility]02[facility]24 Progress note Author Ermias Ramirez [facility] June 10, 2023 11:28am Note Date/Time June 10, 2023 7 :57am [facility] Medical Records Department [address] [place] [id number] Progress Note - Hospitalist 06/10/23 0757 MR#: [id number] Acct: [id number] Name: CHOCO MALDONADO Rep #:[id number] : 1960 62 From: Emrias Ramirez MD PCP: Dr. Linda Parish MD Status:ADM I N Location: [place] [address] Reason for Visit Reason for Visit: Diagnoses Raynaud's syndrome without gangrene (06/07/23) Peripheral vascular disease, unspecified (06/07/23) Gastrointestinal hemorrhage, unspecified (06/07/23) Psoriasis, unspecified (06/07/23) Unspecified injury of popliteal artery, unspecified leg, initial encounter (06/07/23) Presence of other vascular implants and grafts (06/07/23) Subjective Subjective Patient seen currently reports no more bleeding. Underwent colonoscopy 06/10/2023findings and recommendations as below Preparation of the colon was poor. - Patent end colostomy with healthy appearing mucosa in the sigmoid colon. - Stool in the descending colon, at the splenic flexure, in the transverse colon, in the ascending colon and in the cecum. - No specimens collected. Recommendations : - Discharge patient to home. - Resume previous diet. - Continue present medications. - Repeat colonoscopy because the bowel preparation was suboptimal. Objective Data Objective Data Vital Signs: Vital Signs Temp Pulse Resp BP Pulse Ox O2 Del Method O2 Flow Rate 97.6 F L 82 16 146/67 H 98 Room Air 2 06/10/23 02:48 06/10/23 04:14 06/10/23 02:48 06/10/23 02:48 06/10/23 02:48 06/10/23 02:48 06/07/23 22:19 Oxygen Flow Rate (L/min) 2 Oxygen Delivery Method Room Air Weight: 86.771 kg Body Mass Index (BMI) 25.9 Intake & Output: Intake and Output for Last 24 Hours 06/08/23 06/09/23 06/10/23 23:59 23:59 23:59 Intake Total 1312.08 / 1312.08 1099.17 / 1099.17 684.75 / 684.75 Output Total 550 / 550 300 / 300 Balance 762.08 / 762.08 799.17 / 799.17 684.75 / 684.75 Lab / Micro Data 06/09/23 07:05 06/09/23 07:05 Labs: Laboratory Results - last 24 hr 06/09/23 07:05: PT 14.4, INR 1.1, APTT 39.2 H, Sodium 136, Potassium 3.5, Chloride 108 H, Carbon Dioxide 25.0, Anion Gap 3 L, BUN 12, Creatinine 1.03, Estim Creat Clear Calc 82.66, Est GFR (MDRD) Af Amer 94, Est GFR (MDRD) Non-Af 78, BUN/Creatinine Ratio 11.7, Glucose 95, Calcium 8.6 Micro: Microbiology 06/07/23 14:30 Stool Stool Occult Blood (VENKATA) - Final Occult Blood Positive Radiography Diagnostic Testing: Radiology Impression Ankle Brachial Index 06/08/23 07:40 Interpretation Summary Right SAVANNA 1.01, normal. Doppler/PVR waveforms of the right ankle mildly diminished at rest. Left SAVANNA 1.23, normal. Doppler/PVR waveforms of the left leg normal at rest. Ordering Physician: Azalia Freedman Referring Physician: Linda Parish Performed By: Isabel Levine RVT Duplex Scan Lower Extremity Artery 06/08/23 07:40 Interpretation Summary Right SFA-PT bypass patent with elevated velocities throughout. No velocity shift to suggest focal stenosis Ordering Physician: Azalia Freedman Performed By: Seb Mejias RVT Physical Exam Narrative GENERAL: cooperative HEENT: Atraumatic; normocephalic EYES; Anicteric, Normal Conjunctiva NECK; supple, normal thyroid, RESPIRATORY: Diminished to auscultation CARDIOVASCULAR: Regular S1 S2, GI: Soft, nontender, nondistended, black stool present in ostomy : No Renal angle tenderness; EXTREMITIES: Right lower extremity has healing incision present on inside of right calf/knee MUSCULOSKELETAL: no muscle wasting NEURO: Awake; no lateralizing signs. SKIN: No Rash PSYCH; Flat affect Assessment & Plan Assessment/Plan (1) GI bleed: PLAN: Plan Patient is a 62-year-old gentleman with recent vascular surgery on systemic anticoagulation with Xarelto who presented with near syncope while taking a shower and dark stools in his colostomy bag. Presented to the emergency department hemoglobin was found to be 5.4. Admitted to monitored bed for subsequent evaluation 1. Acute GI bleed ? Suspected to secondary to upper GI bleed, hemoglobin on admission was 5.4. Patient was typed and crossmatched transfused with 2 unit PRBC started on Protonix drip admitted to monitored bed with consultation placed to GI. Patientis on antiplatelet therapy with aspirin as well as systemic anticoagulation withXarelto but held -06/09/2023: Patient underwent EGD on 06/08/2023 findings as below - Normal esophagus. - Small hiatal hernia. - No gross lesions in the third portion of the duodenum. - No specimens collected. Plan is for patient to repeat endoscopic evaluation with colonoscopy ?06/10/2023;Patient seen currently reports no more bleeding. Underwent colonoscopy 06/10/2023 findings and recommendations as below Preparation of the colon was poor. - Patent end colostomy with healthy appearing mucosa in the sigmoid colon. - Stool in the descending colon, at the splenic flexure, in the transverse colon, in the ascending colon and in the cecum. - No specimens collected. Recommendations : - Discharge patient to home. - Resume previous diet. - Continue present medications. - Repeat colonoscopy because the bowel preparation was suboptimal. Case subsequently discussed with Dr. Reyes with GI plans for patient to be discharged home to follow-up with Dr. Reyes for outpatient capsule endoscopy tocomplete his workup 2. Anemia -secondary to acute blood loss anemia from GI bleed management as discussed above 3. Peripheral arterial disease ? Patient underwent redo of right above-knee popliteal to posterior tibial bypass with reversed right saphenous vein and ligation of prior femoropopliteal trunk bypass on 05/14/2023 at [facility]. Patient discharged on antiplatelet therapy as well as systemic anticoagulation with Xarelto both of which are currently being held given patient presentation 4. Thrombocytosis ? Reactive following patient severe anemia 5. GERD ? On PPI 6. Psoriasis -Uses ixekizumab on outpt basis 7. Raynaud's's -Supportive care, hold nifedipine d/t presyncopal episode 8. Depression with anxiety ? Patient is on Prozac 9. DVT prophylaxis ? Systemic anticoagulation contraindicated given patient presentation Time spent in the patient's overall evaluation,decision-making process, review of diagnostic data, adjustment of management, discussion with other providers, nursing nursing and ancillary staff involved in patient's care documentation, 35 minutes 06/10/23 1128 <Electronically signed by Ermias Ramirez MD> Cosigner Signature (if applicable): CC: ~ Signed [facility] Work Phone: 1(841) 589-793002-07-2024 Progress note Author Emile Hernandez [facility] June 09, 2023 6:02pm Note Date/Time June 09, 2023 5 :38pm [facility] Medical Records Department [address] [place] [address] Progress Note - Surgery 06/09/23 1729 MR#: [id number] Acct: [id number] Name: CHOCO MALDONADO Rep #:[id number] : 1960 62 From: Azalia FRIEND PCP: Dr. Linda Parish MD Status:ADM I N Location: [place] [address] Subjective Subjective Patient is seen resting comfortably in bed today. He had his colonoscopy earliertoday, there was noted to be poor prep and there are plans to repeat. He does report that during his prep for the colonoscopy he noted a lot of blood in his ostomy bag. His Hgb is 7.3 today which is stable from yesterday afternoon. He reports continued swelling in his RLE but no pain. Objective Data Objective Data Vital Signs: Vital Signs Temp Pulse Resp BP Pulse Ox O2 Del Method O2 Flow Rate 97.8 F 69 16 116/62 97 Room Air 2 06/09/23 12:50 06/09/23 12:50 06/09/23 12:50 06/09/23 12:50 06/09/23 12:50 06/09/23 12:50 06/07/23 22:19 Oxygen Flow Rate (L/min) 2 Oxygen Delivery Method Room Air Weight: 191 lb 4.757 oz Body Mass Index (BMI) 25.9 Intake & Output: Intake and Output for Last 24 Hours 06/07/23 06/08/23 06/09/23 23:59 23:59 23:59 Intake Total 1066.58 / 1366.58 1312.08 / 1312.08 98.17 / 98.17 Output Total 550 / 550 300 / 300 Balance 1066.58 / 1116.58 762.08 / 762.08 -201.83 / -201.83 Lab / Micro Data 06/09/23 07:05 06/09/23 07:05 Labs: Laboratory Results - last 24 hr 06/09/23 07:05: WBC 9.1, RBC 2.66 L, Hgb 7.3 L, Hct 23.3 L, MCV 87.6, MCH 27.4, MCHC 31.3 L, RDW Std Deviation 49.0 H, RDW Coeff of Eze 15.3 H, Plt Count 490 H,MPV 8.6, Immature Gran % (Auto) 0.300, Neut % (Auto) 65.8, Lymph % (Auto) 22.2, Len[place] % (Auto) 5.3, Eos % (Auto) 5.4 H, Baso % (Auto) 1.0, Absolute Neuts (auto) 6.0, Absolute Lymphs (auto) 2.01, Nucleated RBC % 0, PT 14.4, INR 1.1, APTT 39.2H, Sodium 136, Potassium 3.5, Chloride 108 H, Carbon Dioxide 25.0, Anion Gap 3 L, BUN 12, Creatinine 1.03, Estim Creat Clear Calc 82.66, Est GFR (MDRD) Af Amer 94, Est GFR (MDRD) Non-Af 78, BUN/Creatinine Ratio 11.7, Glucose 95, Calcium 8.6 Micro: Microbiology 06/07/23 14:30 Stool Stool Occult Blood (VENKATA) - Final Occult Blood Positive Radiography Diagnostic Testing: Radiology Impression Ankle Brachial Index 06/08/23 07:40 Interpretation Summary Right SAVANNA 1.01, normal. Doppler/PVR waveforms of the right ankle mildly diminished at rest. Left SAVANNA 1.23, normal. Doppler/PVR waveforms of the left leg normal at rest. Ordering Physician: Azalia Freedman Referring Physician: Linda Parish Performed By: Isabel Levine RVT Duplex Scan Lower Extremity Artery 06/08/23 07:40 Interpretation Summary Right SFA-PT bypass patent with elevated velocities throughout. No velocity shift to suggest focal stenosis Ordering Physician: Azalia Freedman Performed By: Seb Mejias RVT Physical Exam Const alert, oriented x3 and no apparent distress General Appearance: cooperative and comfortable HEENT normocephalic, hearing grossly normal bilaterally, external ears normal and external nose normal Eyes EOMs intact bilaterally General Eye: normal appearance of both eyes Neck General: normal visual inspection and trachea midline Resp normal respiratory effort and no use of accessory muscles Effort and Inspection: able to speak in complete sentences; Negative for labored, grunting, stridor or audible wheezes Cardio regular rate and regular rhythm Extremity Extremity Narrative: Mild RLE edema Neuro oriented x3, CN's II-XII intact bilaterally, moves all extremities and no focal motor deficits Speech: speech normal Psych mental status grossly normal Appearance: grossly normal Attitude: calm and engaged Activity / Motor Behavior: appropriate eye contact Speech: normal speech Mood & Affect: euthymic mood Judgement: judgement good Assessment & Plan Assessment/Plan (1) Peripheral vascular disease: (2) S/P femoral-popliteal bypass surgery: PLAN: Plan Okay to continue to hold anticoagulation with Xarelto/heparin with continued anemia. Continue ASA 81mg daily. He has established outpatient care with [facility] where his bypass surgery was performed. Will ensure vascular imaging from this admission is sent to their office for continuity of care. He is encouraged to reschedule and keep any follow-up with them. Charges/Coding Visit Charges Inpatient E&M: 08907 Subs Hosp L2 06/09/231742 <Electronically signed by Azalia FRIEND> Cosigner Signature (if applicable): 06/09/23 180 <Electronically signed by Emile Hernandez MD> CC: ~ Signed [facility] Work Phone: 1(190) 752-815602-07-2024 Consult note Author Emile Hernandez [facility] June 09, 2023 4:21pm Note Date/Time June 08, 2023 1 :11pm [facility] Medical Records Department [address] [place] [address] Consultation - Surgical 06/08/23 1258 MR#: [id number] Acct: [id number] Name: CHOCO MALDONADO Rep #:[id number] : 1960 62 From: Azalia FRIEND PCP: Dr. Linda Parish MD Status:ADM I N Location: [place] [address] Assessment & Plan Assessment/Plan (1) Peripheral vascular disease: (2) S/P femoral-popliteal bypass surgery: PLAN: Plan Imaging confirms patent bypass with no evidence of occlusion/stenosis. Okay to discontinue anticoagulation with heparin/Xarelto as needed to manage GI bleed/anemia. Would continue antiplatelet with Aspirin 81mg daily. Will continue to follow. HPI Consult Data Date of Consult: 06/08/23 HPI Narrative HPI Narrative: CHOCO MALDONADO, is a 62 M who presented to the [facility] ER on 06/07/22 with presyncope,weakness, and black stools noted in his colostomy bag. In October 2022, he had a femoral bypass with PTFE graft which subsequently failed and in May he had fem-pop bypass with tanana vein at [facility]. He reports he has been following with Dr. Alonso as an outpatient for this. He has intermittent cramps in his leg which are unrelated to activity. Otherwise, no rest pain/claudication. He does not some increased edema in the right leg, but this has been slowly improving. The incisions are overall well-healing, with a small area of superficial dehiscence on the calf. He has been on Xarelto and ASA as anoutpatient. Since admission, Xarelto has been held and he has been on low-dose heparin drip. CTA revealed patent bypass. Arterial duplex confirmed patency with high velocities throughout but no evidence of stenosis/occlusion. He is to have EGD today to assess for source of GI bleeding. [facility] Medical History Arthritis Diverticulitis GERD (gastroesophageal reflux disease) Heart murmur Hypertension Polycythemia Psoriasis Vertigo Home Medications atorvastatin 20 mg tablet 20 mg PO QHS 09/17/15 [History Last Taken Unknown] nifedipine 30 mg tablet,extended release 30 mg PO DAILY raynauds syndrome 09/17/15 [History Last Taken Unknown] omeprazole 10 mg capsule,delayed release 10 mg PO PRN PRN gerd 10/01/17 [History Last Taken Unknown] aspirin 81 mg tablet,delayed release 81 mg PO DAILY 09/20/20 [History Last Taken Unknown] fluoxetine 20 mg capsule 20 mg PO DAILY 09/20/20 [History Last Taken Unknown] ixekizumab 80 mg/mL subcutaneous auto-injector (Taltz Autoinjector) 80 mg subcutQMONTH 09/20/20 [History Last Taken Unknown] rizatriptan 10 mg disintegrating tablet 10 mg PO PRN PRN Migraine Headache 09/20/20 [History Last Taken Unknown] amitriptyline 50 mg tablet 50 mg PO QHS 01/17/22 [History Last Taken Unknown] losartan 25 mg tablet 25 mg PO DAILY 01/17/22 [History Last Taken Unknown] ondansetron 4 mg disintegrating tablet 4 mg PO Q8H PRN nausea and vomiting #10 tabs 01/17/22 [Rx Last Taken Unknown] cephalexin 500 mg capsule 500 mg PO DAILY antibiotic needs 06/07/23 [History Last Taken Unknown] cyclobenzaprine 10 mg tablet 10 mg PO TID PRN muscle spasms 06/07/23 [History Last Taken Unknown] gabapentin 100 mg capsule 100 mg PO DAILY PRN nerve pain 06/07/23 [History Last Taken Unknown] gabapentin 300 mg capsule 300 mg PO Q12H neuropathy/nerve pain 06/07/23 [History Last Taken Unknown] hydrocodone-acetaminophen 5-325mg 5mg-325mg 1 tab PO Q6H PRN pain 06/07/23 [History Last Taken Unknown] oxycodone 5 mg tablet 5 mg PO Q6H PRN pain (scale score 4-6) 06/07/23 [History Last Taken Unknown] pantoprazole 40 mg tablet,delayed release 40 mg PO DAILY heart burn 06/07/23 [History Last Taken Unknown] rivaroxaban 20 mg tablet (Xarelto) 20 mg PO QPM blood thinner 06/07/23 [History Last Taken Unknown] Allergy/AdvReac Type Severity Reaction Status Date / Time verapamil Allergy Rash Verified 01/17/22 19:59 Surgical History Hx of cardiac catheterization Social History Smoking Status: Former smoker substance use type: does not use Lab / Micro Data 06/08/23 12:35 06/08/23 05:23 Labs: Laboratory Results - last 24 hr 06/07/23 13:53: WBC 12.6 H, RBC 2.08 L, Hgb 5.4 L*, Hct 18.0 L, MCV 86.5, MCH 26.0 L, MCHC 30.0 L, RDW Std Deviation 48.1 H, RDW Coeff of Eze 15.3 H, Plt Count 588 H, MPV 8.7, Immature Gran % (Auto) 0.600, Neut % (Auto) 74.8 H, Lymph % (Auto) 18.2 L, Lenoir % (Auto) 4.2, Eos % (Auto) 1.6, Baso % (Auto) 0.6, Absolute Neuts (auto) 9.5 H, Absolute Lymphs (auto) 2.30, Nucleated RBC % 0.2, Diff Path Review Reviewed, Blood Type O POSITIVE, Antibody Screen NEGATIVE, Crossmatch See Detail 06/07/23 13:55: Sodium 139, Potassium 3.9, Chloride 107, Carbon Dioxide 22.0, Anion Gap 10, BUN 15, Creatinine 1.08, Est GFR (MDRD) Af Amer 89, Est GFR (MDRD)Non-Af 74, BUN/Creatinine Ratio 13.9, Glucose 114 H, Calcium 9.1, Total Bilirubin 0.40, Direct Bilirubin 0.10, AST 10 L, ALT 23, Alkaline Phosphatase 91, Troponin I High Sens 7, Total Protein 7.8, Albumin 3.4, Globulin 4.4 H, Lipase 30 06/07/23 13:59: PT 16.2 H, INR 1.3, APTT 42.6 H 06/07/23 23:16: APTT 43.1 H 06/08/23 02:19: WBC 11.0, RBC 2.43 L, Hgb 6.7 L, Hct 20.7 L, MCV 85.2, MCH 27.6,MCHC 32.4 D, RDW Std Deviation 45.3 H, RDW Coeff of Eze 14.6, Plt Count 477 H, MPV 8.6 06/08/23 05:23: WBC 10.4, RBC 2.42 L, Hgb 6.5 L, Hct 20.9 L, MCV 86.4, MCH 26.9 L, MCHC 31.1 L, RDW Std Deviation 46.9 H, RDW Coeff of Eze 14.8 H, Plt Count 538H, MPV 9.2, Immature Gran % (Auto) 0.400, Neut % (Auto) 60.2, Lymph % (Auto) 29.7, Lenoir % (Auto) 6.1, Eos % (Auto) 2.7, Baso % (Auto) 0.9, Absolute Neuts (auto) 6.3, Absolute Lymphs (auto) 3.08, Nucleated RBC % 0, PT 15.2 H, INR 1.2, APTT 36.8 H, Sodium 140, Potassium 3.6, Chloride 112 H, Carbon Dioxide 20.0 L, Anion Gap 8, BUN 18, Creatinine 1.12, Estim Creat Clear Calc 76.02, Est GFR (MDRD) Af Amer 86, Est GFR (MDRD) Non-Af 71, BUN/Creatinine Ratio 16.1, Glucose 106, Calcium 8.5, TSH 6.58 H 06/08/23 05:55: Crossmatch See Detail 06/08/23 12:35: WBC 9.5, RBC 2.65 L, Hgb 7.3 L, Hct 23.4 L, MCV 88.3, MCH 27.5, MCHC 31.2 L, RDW Std Deviation 48.2 H, RDW Coeff of Eze 15.2 H, Plt Count 504 H,MPV 8.9 Micro: Microbiology 06/07/23 14:30 Stool Stool Occult Blood (VENKATA) - Final Occult Blood Positive Imaging Radiology Impression Abdomen/Pelvis CT 06/07/23 14:33 IMPRESSION: 1. No focal acute inflammatory process. 2. Left sided colostomy. 3. Hepatic steatosis. Electronically Signed: Triston العلي MD at 15:45 EST , Chest X-Ray 06/07/23 15:25 IMPRESSION: No radiographic evidence of acute cardiopulmonary disease. Electronically Signed: Triston العلي MD at 15:38 EST , Abdomen/Pelvis CTA 06/07/23 16:49 IMPRESSION: Patent bypass. Adjacent to the patent femoral to popliteal bypass is a focal superficial soft tissue adjacent fluid collection measuring 11 x 2 x 2 cm with mildly complex Hounsfield units which may represent evolving hematoma or potentially a small seroma potentially infection. There is no visualized associated gas formation. In the soft tissues there is an occluded graft and a occluded appearance of the distal superficial femoral artery which is bypassed. The popliteal is narrowed by patent. Findings are as detailed above. There is no visualized large soft tissue hematoma or active appearing extravasation. Consider follow-up right lower extremity ultrasound at the level of the fluid collection and the femoral popliteal bypass. Focal 50% narrowing of the left common femoral artery. Mild narrowing of the left-sided superficial femoral artery without occlusion. Electronically Signed: Afshan Mercado MD at 2:29 EST , 06/08/23 1316 <Electronically signed by Azalia FRIEND> Cosigner Signature (if applicable): 06/09/23 1621 <Electronically signed by Emile Hernandez MD> CC: Dr. Emile Hernandez MD; Dr. Amber Gonzalez MD; Dr. Linda Parish MD~ Signed [facility] Work Phone: 1(634) 508-905502-07-2024 Procedure [facility] 06-09-2023 Procedure [facility]02-07-2024 Progress note Author Ermias Ramirez [facility] June 09, 2023 10:28am Note Date/Time June 09, 2023 1 0:27am [facility] Medical Records Department [facility] [address] Progress Note - Hospitalist 06/09/23 1023 MR#: [id number] Acct: [id number] Name: CHOCO MALDONADO Rep #:[id number] : 1960 62 From: Ermias Ramirez MD PCP: Dr. Linda Parish MD Status:ADM I N Location: [place] [address] Reason for Visit Reason for Visit: Diagnoses Raynaud's syndrome without gangrene (06/07/23) Gastrointestinal hemorrhage, unspecified (06/07/23) Psoriasis, unspecified (06/07/23) Unspecified injury of popliteal artery, unspecified leg, initial encounter (06/07/23) Subjective Subjective Patient underwent EGD on 06/08/2023 findings as below - Normal esophagus. - Small hiatal hernia. - No gross lesions in the third portion of the duodenum. - No specimens collected. Plan is for patient to repeat endoscopic evaluation with colonoscopy Objective Data Objective Data Vital Signs: Vital Signs Temp Pulse Resp BP Pulse Ox O2 Del Method O2 Flow Rate 97.7 F L 71 18 139/78 H 98 Room Air 2 06/09/23 07:35 06/09/23 07:35 06/09/23 07:35 06/09/23 07:35 06/09/23 07:35 06/09/23 09:06 06/07/23 22:19 Oxygen Flow Rate (L/min) 2 Oxygen Delivery Method Room Air Weight: 86.771 kg Body Mass Index (BMI) 25.9 Intake & Output: Intake and Output for Last 24 Hours 06/07/23 06/08/23 06/09/23 23:59 23:59 23:59 Intake Total 1066.58 / 1366.58 1312.08 / 1312.08 98.17 / 98.17 Output Total 550 / 550 300 / 300 Balance 1066.58 / 1116.58 762.08 / 762.08 -201.83 / -201.83 Lab / Micro Data 06/09/23 07:05 06/09/23 07:05 Labs: Laboratory Results - last 24 hr 06/07/23 13:53: Diff Path Review Reviewed 06/08/23 05:55: Crossmatch See Detail 06/08/23 12:35: WBC 9.5, RBC 2.65 L, Hgb 7.3 L, Hct 23.4 L, MCV 88.3, MCH 27.5, MCHC 31.2 L, RDW Std Deviation 48.2 H, RDW Coeff of Eze 15.2 H, Plt Count 504 H,MPV 8.9 06/09/23 07:05: WBC 9.1, RBC 2.66 L, Hgb 7.3 L, Hct 23.3 L, MCV 87.6, MCH 27.4, MCHC 31.3 L, RDW Std Deviation 49.0 H, RDW Coeff of Eze 15.3 H, Plt Count 490 H,MPV 8.6, Immature Gran % (Auto) 0.300, Neut % (Auto) 65.8, Lymph % (Auto) 22.2, Lenoir % (Auto) 5.3, Eos % (Auto) 5.4 H, Baso % (Auto) 1.0, Absolute Neuts (auto) 6.0, Absolute Lymphs (auto) 2.01, Nucleated RBC % 0, PT 14.4, INR 1.1, APTT 39.2H, Sodium 136, Potassium 3.5, Chloride 108 H, Carbon Dioxide 25.0, Anion Gap 3 L, BUN 12, Creatinine 1.03, Estim Creat Clear Calc 82.66, Est GFR (MDRD) Af Amer 94, Est GFR (MDRD) Non-Af 78, BUN/Creatinine Ratio 11.7, Glucose 95, Calcium 8.6 Micro: Microbiology 06/07/23 14:30 Stool Stool Occult Blood (VENKATA) - Final Occult Blood Positive Physical Exam Narrative GENERAL: cooperative HEENT: Atraumatic; normocephalic EYES; Anicteric, Normal Conjunctiva NECK; supple, normal thyroid, RESPIRATORY: Diminished to auscultation CARDIOVASCULAR: Regular S1 S2, GI: Soft, nontender, nondistended, black stool present in ostomy : No Renal angle tenderness; EXTREMITIES: Right lower extremity has healing incision present on inside of right calf/knee MUSCULOSKELETAL: no muscle wasting NEURO: Awake; no lateralizing signs. SKIN: No Rash PSYCH; Flat affect Assessment & Plan Assessment/Plan (1) GI bleed: PLAN: Plan Patient is a 62-year-old gentleman with recent vascular surgery on systemic anticoagulation with Xarelto who presented with near syncope while taking a shower and dark stools in his colostomy bag. Presented to the emergency department hemoglobin was found to be 5.4. Admitted to monitored bed for subsequent evaluation 1. Acute GI bleed ? Suspected to secondary to upper GI bleed, hemoglobin on admission was 5.4. Patient was typed and crossmatched transfused with 2 unit PRBC started on Protonix drip admitted to monitored bed with consultation placed to GI. Patientis on antiplatelet therapy with aspirin as well as systemic anticoagulation withXarelto but held -06/09/2023: Patient underwent EGD on 06/08/2023 findings as below - Normal esophagus. - Small hiatal hernia. - No gross lesions in the third portion of the duodenum. - No specimens collected. Plan is for patient to repeat endoscopic evaluation with colonoscopy 2. Anemia -secondary to acute blood loss anemia from GI bleed management as discussed above 3. Peripheral arterial disease ? Patient underwent redo of right above-knee popliteal to posterior tibial bypass with reversed right saphenous vein and ligation of prior femoropopliteal trunk bypass on 05/14/2023 at [facility]. Patient discharged on antiplatelet therapy as well as systemic anticoagulation with Xarelto both of which are currently being held given patient presentation 4. Thrombocytosis ? Reactive following patient severe anemia 5. GERD ? On PPI 6. Psoriasis -Uses ixekizumab on outpt basis 7. Raynaud's's -Supportive care, hold nifedipine d/t presyncopal episode 8. Depression with anxiety ? Patient is on Prozac 9. DVT prophylaxis ? Systemic anticoagulation contraindicated given patient presentation Time spent in the patient's overall evaluation,decision-making process, review of diagnostic data, adjustment of management, discussion with other providers, nursing nursing and ancillary staff involved in patient's care documentation, 50minutes Charges/Coding Visit Charges Inpatient E&M: 82436 Subs Hosp 06/09/23 1028 <Electronically signed by Ermias Ramirez MD> Cosigner Signature (if applicable): CC: ~ Signed [facility] Work Phone: 1(195) 386-107602-06-2024 Progress note Author John Friend [facility] June 08, 2023 2:50pm Note Date/Time June 08, 2023 2 :50pm [facility] Medical Records Department [address] [place] [address] Progress Note - GI 06/08/23 1449 MR#: [id number] Acct: [id number] Name: CHOCO MALDONADO Rep #:[id number] : 1960 62 From: John Reyes DO PCP: Dr. Linda Parish MD Status:ADM I N Location: [place] [address] Subjective Subjective Patient underwent upper endoscopy today. Indication was acute GI blood loss. There was no signs of GI bleeding in his upper GI tract to the third portion of the duodenum. Objective Data Objective Data Vital Signs: Vital Signs Temp Pulse Resp BP Pulse Ox O2 Del Method O2 Flow Rate 97.7 F L 72 12 142/76 H 97 Room Air 2 06/08/23 11:15 06/08/23 11:15 06/08/23 11:15 06/08/23 11:15 06/08/23 11:15 06/08/23 11:15 06/07/23 22:19 Oxygen Flow Rate (L/min) 2 Oxygen Delivery Method Room Air Weight: 191 lb 4.757 oz Body Mass Index (BMI) 25.9 Intake & Output: Intake and Output for Last 24 Hours 06/06/23 06/07/23 06/08/23 23:59 23:59 23:59 Intake Total 1066.58 / 1366.58 1168.83 / 1168.83 Output Total 550 / 550 Balance 1066.58 / 1116.58 618.83 / 618.83 Lab / Micro Data 06/08/23 12:35 06/08/23 05:23 Labs: Laboratory Results - last 24 hr 06/07/23 13:53: Diff Path Review Reviewed, Blood Type O POSITIVE, Antibody Screen NEGATIVE, Crossmatch See Detail 06/07/23 13:55: Total Bilirubin 0.40, Direct Bilirubin 0.10, AST 10 L, ALT 23, Alkaline Phosphatase 91, Total Protein 7.8, Albumin 3.4, Globulin 4.4 H, Lipase 30 06/07/23 13:59: PT 16.2 H, INR 1.3, APTT 42.6 H 06/07/23 23:16: APTT 43.1 H 06/08/23 02:19: WBC 11.0, RBC 2.43 L, Hgb 6.7 L, Hct 20.7 L, MCV 85.2, MCH 27.6,MCHC 32.4 D, RDW Std Deviation 45.3 H, RDW Coeff of Eze 14.6, Plt Count 477 H, MPV 8.6 06/08/23 05:23: WBC 10.4, RBC 2.42 L, Hgb 6.5 L, Hct 20.9 L, MCV 86.4, MCH 26.9 L, MCHC 31.1 L, RDW Std Deviation 46.9 H, RDW Coeff of Eze 14.8 H, Plt Count 538H, MPV 9.2, Immature Gran % (Auto) 0.400, Neut % (Auto) 60.2, Lymph % (Auto) 29.7, Lenoir % (Auto) 6.1, Eos % (Auto) 2.7, Baso % (Auto) 0.9, Absolute Neuts (auto) 6.3, Absolute Lymphs (auto) 3.08, Nucleated RBC % 0, PT 15.2 H, INR 1.2, APTT 36.8 H, Sodium 140, Potassium 3.6, Chloride 112 H, Carbon Dioxide 20.0 L, Anion Gap 8, BUN 18, Creatinine 1.12, Estim Creat Clear Calc 76.02, Est GFR (MDRD) Af Amer 86, Est GFR (MDRD) Non-Af 71, BUN/Creatinine Ratio 16.1, Glucose 106, Calcium 8.5, TSH 6.58 H 06/08/23 05:55: Crossmatch See Detail 06/08/23 12:35: WBC 9.5, RBC 2.65 L, Hgb 7.3 L, Hct 23.4 L, MCV 88.3, MCH 27.5, MCHC 31.2 L, RDW Std Deviation 48.2 H, RDW Coeff of Eze 15.2 H, Plt Count 504 H,MPV 8.9 Micro: Microbiology 06/07/23 14:30 Stool Stool Occult Blood (VENKATA) - Final Occult Blood Positive Radiography Diagnostic Testing: Radiology Impression Abdomen/Pelvis CT 06/07/23 14:33 IMPRESSION: 1. No focal acute inflammatory process. 2. Left sided colostomy. 3. Hepatic steatosis. Electronically Signed: Triston العلي MD at 15:45 EST , Chest X-Ray 06/07/23 15:25 IMPRESSION: No radiographic evidence of acute cardiopulmonary disease. Electronically Signed: Triston العلي MD at 15:38 EST , Abdomen/Pelvis CTA 06/07/23 16:49 IMPRESSION: Patent bypass. Adjacent to the patent femoral to popliteal bypass is a focal superficial soft tissue adjacent fluid collection measuring 11 x 2 x 2 cm with mildly complex Hounsfield units which may represent evolving hematoma or potentially a small seroma potentially infection. There is no visualized associated gas formation. In the soft tissues there is an occluded graft and a occluded appearance of the distal superficial femoral artery which is bypassed. The popliteal is narrowed by patent. Findings are as detailed above. There is no visualized large soft tissue hematoma or active appearing extravasation. Consider follow-up right lower extremity ultrasound at the level of the fluid collection and the femoral popliteal bypass. Focal 50% narrowing of the left common femoral artery. Mild narrowing of the left-sided superficial femoral artery without occlusion. Electronically Signed: Afshan Mercado MD at 2:29 EST , Physical Exam Narrative GENERAL: cooperative HEENT: Atraumatic; normocephalic EYES; Anicteric, Normal Conjunctiva NECK; supple, normal thyroid, RESPIRATORY: Diminished to auscultation CARDIOVASCULAR: Regular S1 S2, GI: Soft, nontender, nondistended, black stool present in ostomy : No Renal angle tenderness; EXTREMITIES: Right lower extremity has healing incision present on inside of right calf/knee MUSCULOSKELETAL: no muscle wasting NEURO: Awake; no lateralizing signs. SKIN: No Rash PSYCH; Flat affect Assessment & Plan Assessment/Plan (1) GI bleed: PLAN: Plan is for colonoscopy tomorrow. He can be restarted on his heparin dripat previous dose and to stop heparin at 6 AM. Charges/Coding Visit Charges Inpatient E&M: 18888 Subs Hosp L2 06/08/23 1450 <Electronically signed by John Friend DO> Cosigner Signature (if applicable): CC: ~ Signed [facility] Work Phone: 1(922) 127-716702-06-2024 Progress note Author Ermias Ramirez [facility] June 08, 2023 1:14pm Note Date/Time June 08, 2023 1 0:41am [facility] Medical Records Department [address] [place] [address] Progress Note - Hospitalist 06/08/23 1041 MR#: [id number] Acct: [id number] Name: CHOCO MALDONADO Rep #:[id number] : 1960 62 From: Ermias Ramirez MD PCP: Dr. Linda Parish MD Status:ADM I N Location: [place] [address] Reason for Visit Reason for Visit: Diagnoses Raynaud's syndrome without gangrene (06/07/23) Gastrointestinal hemorrhage, unspecified (06/07/23) Psoriasis, unspecified (06/07/23) Unspecified injury of popliteal artery, unspecified leg, initial encounter (06/07/23) Subjective Subjective Patient is a 62-year-old gentleman with recent vascular surgery on systemic anticoagulation with Xarelto who presented with near syncope while taking a shower and dark stools in his colostomy bag. Presented to the emergency department hemoglobin was found to be 5.4. Admitted to monitored bed for subsequent evaluation Objective Data Objective Data Vital Signs: Vital Signs Temp Pulse Resp BP Pulse Ox O2 Del Method O2 Flow Rate 97.5 F L 75 16 133/67 H 95 Room Air 2 06/08/23 10:21 06/08/23 10:06/08/23 10:21 06/08/23 10:21 06/08/23 10:06/08/23 10:06/07/23 22:19 Oxygen Flow Rate (L/min) 2 Oxygen Delivery Method Room Air Weight: 86.771 kg Body Mass Index (BMI) 25.9 Intake & Output: Intake and Output for Last 24 Hours 06/06/23 06/07/23 06/08/23 23:59 23:59 23:59 Intake Total 1066.58 / 1366.58 1068.83 / 1068.83 Output Total 550 / 550 Balance 1066.58 / 1116.58 518.83 / 518.83 Lab / Micro Data 06/08/23 12:35 06/08/23 05:23 Labs: Laboratory Results - last 24 hr 06/07/23 13:53: WBC 12.6 H, RBC 2.08 L, Hgb 5.4 L*, Hct 18.0 L, MCV 86.5, MCH 26.0 L, MCHC 30.0 L, RDW Std Deviation 48.1 H, RDW Coeff of Eze 15.3 H, Plt Count 588 H, MPV 8.7, Immature Gran % (Auto) 0.600, Neut % (Auto) 74.8 H, Lymph % (Auto) 18.2 L, Lenoir % (Auto) 4.2, Eos % (Auto) 1.6, Baso % (Auto) 0.6, Absolute Neuts (auto) 9.5 H, Absolute Lymphs (auto) 2.30, Nucleated RBC % 0.2, Diff Path Review August, Blood Type O POSITIVE, Antibody Screen NEGATIVE, Crossmatch See Detail 06/07/23 13:55: Sodium 139, Potassium 3.9, Chloride 107, Carbon Dioxide 22.0, Anion Gap 10, BUN 15, Creatinine 1.08, Est GFR (MDRD) Af Amer 89, Est GFR (MDRD)Non-Af 74, BUN/Creatinine Ratio 13.9, Glucose 114 H, Calcium 9.1, Total Bilirubin 0.40, Direct Bilirubin 0.10, AST 10 L, ALT 23, Alkaline Phosphatase 91, Troponin I High Sens 7, Total Protein 7.8, Albumin 3.4, Globulin 4.4 H, Lipase 30 06/07/23 13:59: PT 16.2 H, INR 1.3, APTT 42.6 H 06/07/23 23:16: APTT 43.1 H 06/08/23 02:19: WBC 11.0, RBC 2.43 L, Hgb 6.7 L, Hct 20.7 L, MCV 85.2, MCH 27.6,MCHC 32.4 D, RDW Std Deviation 45.3 H, RDW Coeff of Eze 14.6, Plt Count 477 H, MPV 8.6 06/08/23 05:23: WBC 10.4, RBC 2.42 L, Hgb 6.5 L, Hct 20.9 L, MCV 86.4, MCH 26.9 L, MCHC 31.1 L, RDW Std Deviation 46.9 H, RDW Coeff of Eze 14.8 H, Plt Count 538H, MPV 9.2, Immature Gran % (Auto) 0.400, Neut % (Auto) 60.2, Lymph % (Auto) 29.7, Lenoir % (Auto) 6.1, Eos % (Auto) 2.7, Baso % (Auto) 0.9, Absolute Neuts (auto) 6.3, Absolute Lymphs (auto) 3.08, Nucleated RBC % 0, PT 15.2 H, INR 1.2, APTT 36.8 H, Sodium 140, Potassium 3.6, Chloride 112 H, Carbon Dioxide 20.0 L, Anion Gap 8, BUN 18, Creatinine 1.12, Estim Creat Clear Calc 76.02, Est GFR (MDRD) Af Amer 86, Est GFR (MDRD) Non-Af 71, BUN/Creatinine Ratio 16.1, Glucose 106, Calcium 8.5, TSH 6.58 H 06/08/23 05:55: Crossmatch See Detail Micro: Microbiology 06/07/23 14:30 Stool Stool Occult Blood (VENKATA) - Final Occult Blood Positive Radiography Diagnostic Testing: Radiology Impression Abdomen/Pelvis CT 06/07/23 14:33 IMPRESSION: 1. No focal acute inflammatory process. 2. Left sided colostomy. 3. Hepatic steatosis. Electronically Signed: Triston العلي MD at 15:45 EST , Chest X-Ray 06/07/23 15:25 IMPRESSION: No radiographic evidence of acute cardiopulmonary disease. Electronically Signed: Triston العلي MD at 15:38 EST , Abdomen/Pelvis CTA 06/07/23 16:49 IMPRESSION: Patent bypass. Adjacent to the patent femoral to popliteal bypass is a focal superficial soft tissue adjacent fluid collection measuring 11 x 2 x 2 cm with mildly complex Hounsfield units which may represent evolving hematoma or potentially a small seroma potentially infection. There is no visualized associated gas formation. In the soft tissues there is an occluded graft and a occluded appearance of the distal superficial femoral artery which is bypassed. The popliteal is narrowed by patent. Findings are as detailed above. There is no visualized large soft tissue hematoma or active appearing extravasation. Consider follow-up right lower extremity ultrasound at the level of the fluid collection and the femoral popliteal bypass. Focal 50% narrowing of the left common femoral artery. Mild narrowing of the left-sided superficial femoral artery without occlusion. Electronically Signed: Afshan Mercado MD at 2:29 EST , Physical Exam Narrative GENERAL: cooperative HEENT: Atraumatic; normocephalic EYES; Anicteric, Normal Conjunctiva NECK; supple, normal thyroid, RESPIRATORY: Diminished to auscultation CARDIOVASCULAR: Regular S1 S2, GI: Soft, nontender, nondistended, black stool present in ostomy : No Renal angle tenderness; EXTREMITIES: Right lower extremity has healing incision present on inside of right calf/knee MUSCULOSKELETAL: no muscle wasting NEURO: Awake; no lateralizing signs. SKIN: No Rash PSYCH; Flat affect Assessment & Plan Assessment/Plan (1) GI bleed: PLAN: Plan Patient is a 62-year-old gentleman with recent vascular surgery on systemic anticoagulation with Xarelto who presented with near syncope while taking a shower and dark stools in his colostomy bag. Presented to the emergency department hemoglobin was found to be 5.4. Admitted to monitored bed for subsequent evaluation 1. Acute GI bleed ? Suspected to secondary to upper GI bleed, hemoglobin on admission was 5.4. Patient was typed and crossmatched transfused with 2 unit PRBC started on Protonix drip admitted to monitored bed with consultation placed to GI. Patientis on antiplatelet therapy with aspirin as well as systemic anticoagulation withXarelto but held 2. Anemia -secondary to acute blood loss anemia from GI bleed management as discussed above 3. Peripheral arterial disease ? Patient underwent redo of right above-knee popliteal to posterior tibial bypass with reversed right saphenous vein and ligation of prior femoropopliteal trunk bypass on 05/14/2023 at [facility]. Patient discharged on antiplatelet therapy as well as systemic anticoagulation with Xarelto both of which are currently being held given patient presentation 4. Thrombocytosis ? Reactive following patient severe anemia 5. GERD ? On PPI 6. Psoriasis -Uses ixekizumab on outpt basis 7. Raynaud's's -Supportive care, hold nifedipine d/t presyncopal episode 8. Depression with anxiety ? Patient is on Prozac 9. DVT prophylaxis ? Systemic anticoagulation contraindicated given patient presentation Time spent in the patient's overall evaluation,decision-making process, review of diagnostic data, adjustment of management, discussion with other providers, nursing nursing and ancillary staff involved in patient's care documentation, 50minutes Charges/Coding Visit Charges Inpatient E&M: 37902 [facility] Hosp 06/08/23 1314 <Electronically signed by Ermias Ramirez MD> Cosigner Signature (if applicable): CC: ~ Signed [facility] Work Phone: 1(688) 715-682602-06-2024 Procedure [facility] 06-08-2023 Procedure [facility]-05-2024 Consult note Author John Reyes [facility] June 07, 2023 5:04pm Note Date/Time June 07, 2023 4 :54pm [facility] Medical Records Department [address] [place] [address] Consultation - GI 06/07/23 1652 MR#: [id number] Acct: [id number] Name: CHOCO MALDONADO Rep #:[id number] : 1960 62 From: John Reyes DO PCP: Dr. Linda Parish MD Status:REG E R Location: ED HPI Consult Data Date of Consult: 06/07/23 HPI Narrative Reason for Consultation: Gi Bleed HPI Narrative: CHOCO MALDONADO, is a 62 M who presents with abdominal pain, weakness and multiple episodes of black stools in his colostomy bag. He has a past medical history of arthritis, hypertension, GERD, psoriasis, Raynaud's, anxiety, migraines presented to [facility] ED 06/07/2023 due to presyncope in the shower, weakness, and black stool in colostomy bag. Last August patient went to [place] and had perfect diverticulitis and had to have colostomy, has not been able to have it reversed with Dr. Parra yet as patient was still smoking though now he has been tobacco free. Also went to [place] about a month and a half ago and had a blue leg and required a femoral bypass emergently and is on Xarelto. He has been having jet black stool in his colostomy for about a month and has begun to develop some generalized weakness and lightheadedness. In the ED he was found to have a hemoglobin of 5.4 and FOBT positive. His previous hemoglobin was 15. He was given 2 units packed red blood cells in ED and started on Protonix drip, hospitalist contacted for admission. Patient evaluated at bedside with present, they report history as above and that hehad his emergent bypass in October in [place] and then had some sort of revision/repair May 14 that is not in our system. He is continue to have some problems with swelling and pain in that leg and reports that sometimes he will get spasms there and spasms in his abdomen but they occur at random and does nothave any other abdominal pain, has been having intermittent black stools for about a month and they will be black and then somewhat clear up and then will beblack again, over the past 2 to 3 days he has been short of breath, lightheaded,weak and had an episode of presyncope earlier today prompting him to come to theED. Denies any cough or chest pain. He had a CT scan abdomen pelvis in the ED did not show any acute abnormality. [facility] Medical History Arthritis Diverticulitis GERD (gastroesophageal reflux disease) Heart murmur Hypertension Polycythemia Psoriasis Vertigo Home Medications atorvastatin 20 mg tablet 20 mg PO QHS 09/17/15 [History Last Taken Unknown] nifedipine 30 mg tablet,extended release 30 mg PO DAILY raynauds syndrome 09/17/15 [History Last Taken Unknown] omeprazole 10 mg capsule,delayed release 10 mg PO PRN PRN gerd 10/01/17 [History Last Taken Unknown] aspirin 81 mg tablet,delayed release 81 mg PO DAILY 09/20/20 [History Last Taken Unknown] fluoxetine 20 mg capsule 20 mg PO DAILY 09/20/20 [History Last Taken Unknown] ixekizumab 80 mg/mL subcutaneous auto-injector (Taltz Autoinjector) 80 mg subcutQMONTH 09/20/20 [History Last Taken Unknown] rizatriptan 10 mg disintegrating tablet 10 mg PO PRN PRN Migraine Headache 09/20/20 [History Last Taken Unknown] amitriptyline 50 mg tablet 50 mg PO QHS 01/17/22 [History Last Taken Unknown] losartan 25 mg tablet 25 mg PO DAILY 01/17/22 [History Last Taken Unknown] ondansetron 4 mg disintegrating tablet 4 mg PO Q8H PRN nausea and vomiting #10 tabs 01/17/22 [Rx Last Taken Unknown] hydrocodone-acetaminophen 5-325mg 5mg-325mg 1 tab PO Q6H PRN pain 06/07/23 [History Last Taken Unknown] Allergy/AdvReac Type Severity Reaction Status Date / Time verapamil Allergy Rash Verified 01/17/22 19:59 Surgical History Hx of cardiac catheterization Social History Smoking Status: Former smoker substance use type: does not use ROS ROS Narrative General: very cold today HENT: Denies headache, denies stuffy nose, denies sore throat EYES: Denies changes in vision Resp: Denies cough, has been short of breath over the past couple of days Cardiac: Denies chest pain GI: Every now and then gets abdominal spasms that do not seem to be associated with anything else, intermittent black stools in ostomy over the past 1 month, denies nausea/vomiting : Denies changes in urination Extremity: Still gets some swelling and pain in his right lower extremity MSK: Generalized weakness Neuro: Denies any numbness/tingling, presyncopal episode earlier Heme: Denies any bleeding or bruising Skin: Denies rashes Psychiatric: No complaints voiced Physical Exam Narrative General: Alert, oriented HEENT: Atraumatic, normocephalic Eyes: Anicteric, normal conjunctiva, extraocular movements grossly intact Neck: Supple Respiratory: Clear to auscultation bilaterally, normal respiratory effort Cardiovascular: Regular rate and rhythm GI: Soft, nontender, nondistended, black stool present in ostomy Extremities: Right lower extremity warm, slightly swollen compared to left, has healing incision present on inside of right calf/knee Musculoskeletal: Moving all extremities Neuro: No overt focal neurological deficits Skin: No rashes appreciated Psych: Cooperative Lab / Micro Data 06/07/23 13:53 06/07/23 13:55 Labs: Laboratory Results - last 24 hr 06/07/23 13:53: WBC 12.6 H, RBC 2.08 L, Hgb 5.4 L*, Hct 18.0 L, MCV 86.5, MCH 26.0 L, MCHC 30.0 L, RDW Std Deviation 48.1 H, RDW Coeff of Eze 15.3 H, Plt Count 588 H, MPV 8.7, Immature Gran % (Auto) 0.600, Neut % (Auto) 74.8 H, Lymph % (Auto) 18.2 L, Len[place] % (Auto) 4.2, Eos % (Auto) 1.6, Baso % (Auto) 0.6, Absolute Neuts (auto) 9.5 H, Absolute Lymphs (auto) 2.30, Nucleated RBC % 0.2, Diff Path Review August, Blood Type O POSITIVE, Antibody Screen NEGATIVE, Crossmatch See Detail 06/07/23 13:55: Sodium 139, Potassium 3.9, Chloride 107, Carbon Dioxide 22.0, Anion Gap 10, BUN 15, Creatinine 1.08, Est GFR (MDRD) Af Amer 89, Est GFR (MDRD)Non-Af 74, BUN/Creatinine Ratio 13.9, Glucose 114 H, Calcium 9.1, Total Bilirubin 0.40, Direct Bilirubin 0.10, AST 10 L, ALT 23, Alkaline Phosphatase 91, Troponin I High Sens 7, Total Protein 7.8, Albumin 3.4, Globulin 4.4 H, Lipase 30 Micro: Microbiology 06/07/23 14:30 Stool Stool Occult Blood (VENKATA) - Final Occult Blood Positive Imaging Radiology Impression Abdomen/Pelvis CT 06/07/23 14:33 IMPRESSION: 1. No focal acute inflammatory process. 2. Left sided colostomy. 3. Hepatic steatosis. Electronically Signed: Triston العلي MD at 15:45 EST , Chest X-Ray 06/07/23 15:25 IMPRESSION: No radiographic evidence of acute cardiopulmonary disease. Electronically Signed: Triston العلي MD at 15:38 EST , Assessment & Plan Assessment/Plan (1) GI bleed: (2) Popliteal artery injury: (3) Psoriasis: (4) Raynaud disease: PLAN: Plan 62 old gentleman with past medical history negative addiction, possible COPD, acute perforated diverticulitis status post colostomy placement with Malone's procedure GI bleed and near syncope on aspirin and Xarelto and Taltz -Hemoglobin 5.4 in ED, last value here was in 2021 and was 15.7 and appears hemoglobin prior to that actually runs high at 15 -Fecal occult positive -Type and cross with plan to transfuse 2 units -Trend H&H -PPI IV -EGD in a.m. Charges/Coding Visit Charges Inpatient E&M: 16490 Init Hosp L3 06/07/23 1704 <Electronically signed by John Friend DO> Cosigner Signature (if applicable): CC: Dr. Linda Parish MD~ Signed [facility] Work Phone: [phone]) 921-709902-05-2024 History and physical note Author Amber Gonzalez [facility] June 07, 2023 4:51pm Note Date/Time June 07, 2023 4 :30pm [facility] Medical Records Department [address] [place] [address] H&P Exam - Hospitalist 06/07/23 1627 MR#: [id number] Acct: [id number] Name: JOELCHOCOANAND ZAMUDIO Rep #:[id number] : 1960 62 From: Amber Gonzalez MD PCP: Dr. Linda Parish MD Status:REG E R Location: ED HPI - General General Date of Admission: 06/07/23 Date of Service: 06/07/23 Chief Complaint: Dizziness and weakness HPI Narrative CHOCO MALDONADO, is a 62-year-old male history of arthritis, hypertension, GERD, psoriasis, Raynaud's, anxiety, migraines presented to [facility] 06/07/2023 due to presyncope in the shower, weakness, and black stool in colostomy bag. Last August patient went to [place] and had perfect diverticulitis and had to have colostomy, has not been able to have it reversed with Dr. Parra yet as patient was still smoking though now he has been tobaccofree. Also went to [place] about a month and a half ago and had a blue leg and required a femoral bypass emergently and is on Xarelto. Has been having jet black stool in his colostomy for about a month and has begun to develop some generalized weakness and lightheadedness. In the ED he was found to have a hemoglobin of 5.4 and FOBT positive. GI contacted who recommended admission andthat he would be seen in consult. Patient given 2 units packed red blood cells in ED and started on Protonix drip, hospitalist contacted for admission. Patient evaluated at bedside with present, they report history as above andthat he had his emergent bypass in October in [place] and then had some sort of revision/repair May 14 that is not in our system. He is continue to have some problems with swelling and pain in that leg and reports that sometimes he will get spasms there and spasms in his abdomen but they occur at random and does not have any other abdominal pain, has been having intermittent black stools for about a month and they will be black and then somewhat clear up and then will be black again, over the past 2 to 3 days he has been short of breath,lightheaded, weak and had an episode of presyncope earlier today prompting him to come to the ED. Denies any cough or chest pain. [facility] Medical History (Updated 06/07/23 @ 16:[address] Amber Gonzalez MD) Arthritis Diverticulitis GERD (gastroesophageal reflux disease) Heart murmur Hypertension Polycythemia Psoriasis Vertigo Home Medications atorvastatin 20 mg tablet 20 mg PO QHS 09/17/15 [History Last Taken Unknown] nifedipine 30 mg tablet,extended release 30 mg PO DAILY raynauds syndrome 09/17/15 [History Last Taken Unknown] omeprazole 10 mg capsule,delayed release 10 mg PO PRN PRN gerd 10/01/17 [History Last Taken Unknown] aspirin 81 mg tablet,delayed release 81 mg PO DAILY 09/20/20 [History Last Taken Unknown] fluoxetine 20 mg capsule 20 mg PO DAILY 09/20/20 [History Last Taken Unknown] ixekizumab 80 mg/mL subcutaneous auto-injector (Taltz Autoinjector) 80 mg subcutQMONTH 09/20/20 [History Last Taken Unknown] rizatriptan 10 mg disintegrating tablet 10 mg PO PRN PRN Migraine Headache 09/20/20 [History Last Taken Unknown] amitriptyline 50 mg tablet 50 mg PO QHS 01/17/22 [History Last Taken Unknown] losartan 25 mg tablet 25 mg PO DAILY 01/17/22 [History Last Taken Unknown] ondansetron 4 mg disintegrating tablet 4 mg PO Q8H PRN nausea and vomiting #10 tabs 01/17/22 [Rx Last Taken Unknown] oxycodone-acetaminophen 5 mg-325 mg tablet (Percocet) 1 tab PO Q6H PRN pain 3 days #10 tabs 01/17/22 [Rx Last Taken Unknown] Allergy/AdvReac Type Severity Reaction Status Date / Time verapamil Allergy Rash Verified 01/17/22 19:59 Surgical History Hx of cardiac catheterization Social History Smoking Status: Former smoker substance use type: does not use ROS ROS Narrative General: very cold today HENT: Denies headache, denies stuffy nose, denies sore throat EYES: Denies changes in vision Resp: Denies cough, has been short of breath over the past couple of days Cardiac: Denies chest pain GI: Every now and then gets abdominal spasms that do not seem to be associated with anything else, intermittent black stools in ostomy over the past 1 month, denies nausea/vomiting : Denies changes in urination Extremity: Still gets some swelling and pain in his right lower extremity MSK: Generalized weakness Neuro: Denies any numbness/tingling, presyncopal episode earlier Heme: Denies any bleeding or bruising Skin: Denies rashes Psychiatric: No complaints voiced Vital Signs Vital Signs Vital Signs: 06/07/23 13:27 06/07/23 14:32 06/07/23 14:35 Temperature 97.1 F L Temperature Source Temporal Pulse Rate 98 Respiratory Rate 22 H Respiratory Effort Short of Breath Respiratory Pattern Tachypnea Blood Pressure 125/63 H Blood Pressure Mean 83 Pulse Ox 87 Oxygen Delivery Method Room Air Room Air 06/07/23 15:26 06/07/23 15:59 06/07/23 16:14 Temperature 98.0 F 96.7 F L Temperature Source Oral Temporal Pulse Rate 86 77 85 Respiratory Rate 24 H 24 H 24 H Respiratory Effort Respiratory Pattern Blood Pressure 131/62 H 123/59 H 132/56 H Blood Pressure Mean 85 80 81 Pulse Ox 96 100 98 Oxygen Delivery Method Room Air Room Air Room Air Weight Weight: 90.7 kg Body Mass Index (BMI) 26.4 Physical Exam Narrative General: Alert, oriented HEENT: Atraumatic, normocephalic Eyes: Anicteric, normal conjunctiva, extraocular movements grossly intact Neck: Supple Respiratory: Clear to auscultation bilaterally, normal respiratory effort Cardiovascular: Regular rate and rhythm GI: Soft, nontender, nondistended, black stool present in ostomy Extremities: Right lower extremity warm, slightly swollen compared to left, has healing incision present on inside of right calf/knee Musculoskeletal: Moving all extremities Neuro: No overt focal neurological deficits Skin: No rashes appreciated Psych: Cooperative Results Lab / Micro Data 06/07/23 13:53 06/07/23 13:55 Labs: Laboratory Results - last 24 hr 06/07/23 13:53: WBC 12.6 H, RBC 2.08 L, Hgb 5.4 L*, Hct 18.0 L, MCV 86.5, MCH 26.0 L, MCHC 30.0 L, RDW Std Deviation 48.1 H, RDW Coeff of Eze 15.3 H, Plt Count 588 H, MPV 8.7, Immature Gran % (Auto) 0.600, Neut % (Auto) 74.8 H, Lymph % (Auto) 18.2 L, Lenoir % (Auto) 4.2, Eos % (Auto) 1.6, Baso % (Auto) 0.6, Absolute Neuts (auto) 9.5 H, Absolute Lymphs (auto) 2.30, Nucleated RBC % 0.2, Diff Path Review August, Blood Type O POSITIVE, Antibody Screen NEGATIVE, Crossmatch See Detail 06/07/23 13:55: Sodium 139, Potassium 3.9, Chloride 107, Carbon Dioxide 22.0, Anion Gap 10, BUN 15, Creatinine 1.08, Est GFR (MDRD) Af Amer 89, Est GFR (MDRD)Non-Af 74, BUN/Creatinine Ratio 13.9, Glucose 114 H, Calcium 9.1, Total Bilirubin 0.40, Direct Bilirubin 0.10, AST 10 L, ALT 23, Alkaline Phosphatase 91, Troponin I High Sens 7, Total Protein 7.8, Albumin 3.4, Globulin 4.4 H, Lipase 30 Micro: Microbiology 06/07/23 14:30 Stool Stool Occult Blood (VENKATA) - Final Occult Blood Positive Imaging Radiology Impression Abdomen/Pelvis CT 06/07/23 14:33 IMPRESSION: 1. No focal acute inflammatory process. 2. Left sided colostomy. 3. Hepatic steatosis. Electronically Signed: Triston العلي MD at 15:45 EST , Chest X-Ray 06/07/23 15:25 IMPRESSION: No radiographic evidence of acute cardiopulmonary disease. Electronically Signed: Triston العلي MD at 15:38 EST , Assessment & Plan Assessment/Plan (1) GI bleed: (2) Popliteal artery injury: (3) Psoriasis: (4) Raynaud disease: PLAN: Plan #GI bleed and near syncope -Hemoglobin 5.4 in ED, last value here was in 2021 and was 15.7 and appears hemoglobin prior to that actually runs high -Fecal occult positive -Type and cross with plan to transfuse 2 units -Trend H&H -PPI IV -GI consult -NPO at midnight -AC as below #Recent vascular surgery on R leg -Vascular surgery in October in [place] with a revision[facility] -Unclear exactly what patient had done -Discussed with vascular surgeon, will hold Xarelto in favor of a low-dose fixedrate heparin drip that can be turned off if further drops in hemoglobin after transfusions -It was advised to continue aspirin at this time -Will request records -Also advised to get a CT abdomen with aorta runoff bilaterally -Will place vascular surgery consult, appreciate recommendations #Thrombocytosis -Possibly secondary to inflammation versus iron deficiency -Trend #GERD -PPI #Hx psoriasis -Uses ixekizumab on outpt basis # Raynaud's's -Supportive care, hold nifedipine d/t presyncopal episode #Anxiety -Continue prozac Time spent in the patient's overall evaluation,decision-making process, review of diagnostic data, adjustment of management, discussion with other providers, nursing nursing and ancillary staff involved in patient's care documentation, 61minutes Charges/Coding Visit Charges Inpatient E&M: 49268 Init Hosp L2 06/07/23 1651 <Electronically signed by Amber Gonzalez MD> Cosigner Signature (if applicable): CC: Dr. Amber Gonzalez MD; Dr. Linda aPrish MD~ Signed [facility] Work Phone: 1(726) 872-713102-05-2024 Discharge summary Author Reid Ponce [facility] June 07, 2023 4:46pm Note Date/Time June 07, 2023 4 :47pm [facility] Medical Records Department [address] [place] [address] Emergency Department Summary 06/07/23 MR#: [id number] Acct: [id number] Name: CHOCO MALDONADO Rep #:[id number] : 1960 62 From: Reid Ponce DO PCP: Dr. Linda Parish MD Status:REG E R Location: ED HPI HPI - GI History of Present Illness Chief Complaint: Weakness Narrative Narrative: 62-year-old male presenting with lightheadedness, weakness, black stools colostomy bag. Patient states that in August last year he was on a trip to [place] when he had emergency surgery for diverticulitis and is up to have the colostomy bag. He states he follows with Dr. Parra here in the area and was going to be scheduled for colostomy reversal however Dr. Parra was waiting forthe patient to quit smoking which she has done for now greater than 40 days. Patient states recently in the last month and a half went to [place] where he ended up having a cold right lower extremity and had to get emergency femoropopliteal surgery and is on Xarelto at this point. He notes that prior tothe surgery he did have some black stool in his colostomy which had resolved. He also notes that after his femoropopliteal surgery he had to get a unit of blood transfusion which was presumably due to blood loss to the femoropopliteal surgery. [facility] Medical History Arthritis Diverticulitis GERD (gastroesophageal reflux disease) Heart murmur Hypertension Polycythemia Psoriasis Vertigo Home Medications atorvastatin 20 mg tablet 20 mg PO QHS 09/17/15 [History Last Taken Unknown] nifedipine 30 mg tablet,extended release 30 mg PO DAILY raynauds syndrome 09/17/15 [History Last Taken Unknown] omeprazole 10 mg capsule,delayed release 10 mg PO PRN PRN gerd 10/01/17 [History Last Taken Unknown] aspirin 81 mg tablet,delayed release 81 mg PO DAILY 09/20/20 [History Last Taken Unknown] fluoxetine 20 mg capsule 20 mg PO DAILY 09/20/20 [History Last Taken Unknown] ixekizumab 80 mg/mL subcutaneous auto-injector (Taltz Autoinjector) 80 mg subcutQMONTH 09/20/20 [History Last Taken Unknown] rizatriptan 10 mg disintegrating tablet 10 mg PO PRN PRN Migraine Headache 09/20/20 [History Last Taken Unknown] amitriptyline 50 mg tablet 50 mg PO QHS 01/17/22 [History Last Taken Unknown] losartan 25 mg tablet 25 mg PO DAILY 01/17/22 [History Last Taken Unknown] ondansetron 4 mg disintegrating tablet 4 mg PO Q8H PRN nausea and vomiting #10 tabs 01/17/22 [Rx Last Taken Unknown] oxycodone-acetaminophen 5 mg-325 mg tablet (Percocet) 1 tab PO Q6H PRN pain 3 days #10 tabs 01/17/22 [Rx Last Taken Unknown] Allergy/AdvReac Type Severity Reaction Status Date / Time verapamil Allergy Rash Verified 01/17/22 19:59 Surgical History Hx of cardiac catheterization Social History Smoking Status: Former smoker substance use type: does not use ROS ROS ED Constitutional Constitutional ED: Denies chills, fever(s) or sweats Eyes Eyes: Denies blurry vision or change in vision ENT ENT ED: Denies ear pain or sore throat Cardiovascular Cardiovascular: Denies chest pain, palpitations or racing heartbeat Respiratory/Chest Respiratory/Chest: Denies cough, dyspnea or sputum Gastrointestinal Gastrointestinal: Reports abdominal pain and melena; Denies constipation, diarrhea, nausea or vomiting Genitourinary Genitourinary ED: Denies dysuria, hematuria or urinary frequency Musculoskeletal Musculoskeletal: Denies arthralgias, myalgias or neck pain Integumentary Denies abscess, Abrasions or rash Neurologic Neurologic: Denies headache(s), paresthesias or weakness Psychiatric Psychiatric: Denies anxiety, depression, suicidal ideation or suicidal thoughts Endocrine Endocrinology: Denies polydipsia or polyuria EXAM Physical Exam Const Vital Signs: 06/07/23 13:27 06/07/23 14:32 06/07/23 14:35 Temperature 97.1 F L Temperature Source Temporal Pulse Rate 98 Respiratory Rate 22 H Respiratory Effort Short of Breath Respiratory Pattern Tachypnea Blood Pressure 125/63 H Blood Pressure Mean 83 Pulse Ox 87 Oxygen Delivery Method Room Air Room Air 06/07/23 15:26 06/07/23 15:59 06/07/23 16:14 Temperature 98.0 F 96.7 F L Temperature Source Oral Temporal Pulse Rate 86 77 85 Respiratory Rate 24 H 24 H 24 H Respiratory Effort Respiratory Pattern Blood Pressure 131/62 H 123/59 H 132/56 H Blood Pressure Mean 85 80 81 Pulse Ox 96 100 98 Oxygen Delivery Method Room Air Room Air Room Air 06/07/23 16:29 Temperature 96.7 F L Temperature Source Pulse Rate 78 Respiratory Rate 22 H Respiratory Effort Respiratory Pattern Blood Pressure 132/56 H Blood Pressure Mean 81 Pulse Ox 99 Oxygen Delivery Method Positive well nourished General Appearance ED: NAD; Negative for pallor HEENT Reports moist mucous membranes normocephalic Eyes PERRL General Eye ED: Negative for pale conjunctiva or scleral icterus Resp normal respiratory effort and clear to auscultation bilaterally Auscultation: Negative for rales or rhonchi Cardio regular rate and regular rhythm GI GI Narrative: Generalized abdominal tenderness. Colostomy bag with black stool. Neuro CN's II-XII intact bilaterally Sensorium / Orientation: alert Motor Exam: strength 5/5 throughout Psych mental status grossly normal Skin General Skin Exam: Negative for jaundice or pallor MDM MDM MDM Narrative Medical decision making narrative: Patient presenting with weakness, lightheadedness, concern for black stool in his colostomy bag. It does sound like he has had chronically a GI bleed that slow with some black stools prior to his surgery and requiring blood transfusionat that time in [place]. His conjunctiva are not pale and his skin is pink and warm. I suspect this is chronic and not acute although he has become symptomatic with a hemoglobin of 5.4. Patient given IV fluids. Is given a Protonix drip. Patient medicated with fentanyl as his initial blood pressure was a little soft. CBC was obtained and shows leukocytosis 12.6. Hemoglobin 5.4. Platelets 588 therefore elevated. Renal function and electrolytes within normal limits. Liver enzymes are normal. High-sensitivity troponin 7. Patientwas typed and screened for 2 units and states he had blood transfusions in the past and understood the risk and benefits. CT of the abdomen pelvis with IV contrast was obtained and is negative for acute findings. The case was discussed with Dr. Reyes as the patient is a GIB on Xarelto. We will hold thisfor now. Patient will likely need endoscopy. Dr. Herrera did come see the patient in the emergency room. Discussed with the hospitalist for admission. Impression: 1. Upper GI bleed 2. Blood loss anemia Lab Data Labs: Laboratory Results - last 24 hr 06/07/23 06/07/23 13:53 13:55 WBC 12.6 H RBC 2.08 L Hgb 5.4 L* Hct 18.0 L MCV 86.5 MCH 26.0 L MCHC 30.0 L RDW Std Deviation 48.1 H RDW Coeff of Eze 15.3 H Plt Count 588 H MPV 8.7 Immature Gran % (Auto) 0.600 Neut % (Auto) 74.8 H Lymph % (Auto) 18.2 L Lenoir % (Auto) 4.2 Eos % (Auto) 1.6 Baso % (Auto) 0.6 Absolute Neuts (auto) 9.5 H Absolute Lymphs (auto) 2.30 Nucleated RBC % 0.2 Diff Path Review August Sodium 139 Potassium 3.9 Chloride 107 Carbon Dioxide 22.0 Anion Gap 10 BUN 15 Creatinine 1.08 Est GFR (MDRD) Af Amer 89 Est GFR (MDRD) Non-Af 74 BUN/Creatinine Ratio 13.9 Glucose 114 H Calcium 9.1 Total Bilirubin 0.40 Direct Bilirubin 0.10 AST 10 L ALT 23 Alkaline Phosphatase 91 Troponin I High Sens 7 Total Protein 7.8 Albumin 3.4 Globulin 4.4 H Lipase 30 Blood Type O POSITIVE Antibody Screen NEGATIVE Crossmatch See Detail Radiography Diagnostic Testing: Clinical Impression(s) from Imaging Studies Abdomen/Pelvis CT 06/07/23 14:33 IMPRESSION: 1. No focal acute inflammatory process. 2. Left sided colostomy. 3. Hepatic steatosis. Electronically Signed: Triston العلي MD at 15:45 EST Reading Location ID and State: [facility] / [place] Tel , Service support , Chest X-Ray 06/07/23 15:25 IMPRESSION: No radiographic evidence of acute cardiopulmonary disease. Electronically Signed: Triston العلي MD at 15:38 EST , Discharge Plan Triage Chief Complaint: Weakness ED Provider: Reid Ponce Dx/Rx/DC Orders Prescriptions: No Action atorvastatin 20 MG tablet 20 mg PO QHS nifedipine 30 MG tablet extended release 30 mg PO DAILY omeprazole 10 MG capsule,delayed release(DR/EC) 10 mg PO PRN PRN (Reason: gerd) aspirin 81 mg tablet,delayed release (DR/EC) 81 mg PO DAILY Patient Comments: TAKE 1 TABLET BY MOUTH EVERY DAY Rasheed Autoinjector 80 mg/mL auto-injector 80 mg SUBCUT QMONTH rizatriptan 10 mg tablet,disintegrating 10 mg PO PRN PRN (Reason: Migraine Headache) Patient Comments: TAKE 1 TABLET BY MOUTH NEEDED for migraine, may repeat in 2 (TWO) hours ifneeded fluoxetine 20 mg capsule 20 mg PO DAILY Patient Comments: TAKE 1 CAPSULE BY MOUTH EVERY DAY amitriptyline 50 mg tablet 50 mg PO QHS Patient Comments: TAKE 1 TABLET BY MOUTH DAILY AT BEDTIME losartan 25 mg tablet 25 mg PO DAILY Patient Comments: TAKE 1 TABLET BY MOUTH ONCE DAILY oxycodone-acetaminophen [Percocet] 5-325 mg tablet 1 tab PO Q6H PRN (Reason: pain) 3 Days Qty: 10 0RF ondansetron 4 mg tablet,disintegrating 4 mg PO Q8H PRN (Reason: nausea and vomiting) Qty: 10 0RF Primary Care Provider: Linda Parish Referrals: Linda Parish MD [Primary Care Provider] - What to do if you have Problems For any increased pain, shortness of breath, bleeding, nausea or vomiting, chestpain, or any unexpected problems, contact your Primary Care Provider. Call [facility] ([phone]) or report to the closest Emergency Room. Call 911 if necessary. 06/07/23 1646 <Electronically signed by Reid Ponce DO> Cosigner Signature (if applicable): CC: Dr. Linda Parish MD ~ Signed [facility] Work Phone: [phone]) 338-360002-05-2024 History and physical note Author Amber Gonzalez [facility] June 07, 2023 4:51pm Note Date/Time June 07, 2023 4 :30pm [facility] Medical Records Department [address] [place] [id number] H&P Exam - Hospitalist 06/07/23 1627 MR#: [id number] Acct: [id number] Name: CHOCO MALDONADO Rep #:[id number] : 1960 62 From: Amber Gonzalez MD PCP: Dr. Linda Parish MD Status:REG E R Location: ED HPI - General General Date of Admission: 06/07/23 Date of Service: 06/07/23 Chief Complaint: Dizziness and weakness HPI Narrative CHOCO MALDONADO, is a 62-year-old male history of arthritis, hypertension, GERD, psoriasis, Raynaud's, anxiety, migraines [facility] due to presyncope in the shower, weakness, and black stool in colostomy bag. Last August patient went to [place] and had perfect diverticulitis and had to have colostomy, has not been able to have it reversed with Dr. Parra yet as patient was still smoking though now he has been tobaccofree. Also went to [place] about a month and a half ago and had a blue leg and required a femoral bypass emergently and is on Xarelto. Has been having jet black stool in his colostomy for about a month and has begun to develop some generalized weakness and lightheadedness. In the ED he was found to have a hemoglobin of 5.4 and FOBT positive. GI contacted who recommended admission andthat he would be seen in consult. Patient given 2 units packed red blood cells in ED and started on Protonix drip, hospitalist contacted for admission. Patient evaluated at bedside with present, they report history as above andthat he had his emergent bypass in October in [place] and then had some sort of revision/repair May 14 that is not in our system. He is continue to have some problems with swelling and pain in that leg and reports that sometimes he will get spasms there and spasms in his abdomen but they occur at random and does not have any other abdominal pain, has been having intermittent black stools for about a month and they will be black and then somewhat clear up and then will be black again, over the past 2 to 3 days he has been short of breath,lightheaded, weak and had an episode of presyncope earlier today prompting him to come to the ED. Denies any cough or chest pain. [facility] Medical History (Updated 06/07/23 @ 16:[address] Amber Gonzalez MD) Arthritis Diverticulitis GERD (gastroesophageal reflux disease) Heart murmur Hypertension Polycythemia Psoriasis Vertigo Home Medications atorvastatin 20 mg tablet 20 mg PO QHS 09/17/15 [History Last Taken Unknown] nifedipine 30 mg tablet,extended release 30 mg PO DAILY raynauds syndrome 09/17/15 [History Last Taken Unknown] omeprazole 10 mg capsule,delayed release 10 mg PO PRN PRN gerd 10/01/17 [History Last Taken Unknown] aspirin 81 mg tablet,delayed release 81 mg PO DAILY 09/20/20 [History Last Taken Unknown] fluoxetine 20 mg capsule 20 mg PO DAILY 09/20/20 [History Last Taken Unknown] ixekizumab 80 mg/mL subcutaneous auto-injector (Taltz Autoinjector) 80 mg subcutQMONTH 09/20/20 [History Last Taken Unknown] rizatriptan 10 mg disintegrating tablet 10 mg PO PRN PRN Migraine Headache 09/20/20 [History Last Taken Unknown] amitriptyline 50 mg tablet 50 mg PO QHS 01/17/22 [History Last Taken Unknown] losartan 25 mg tablet 25 mg PO DAILY 01/17/22 [History Last Taken Unknown] ondansetron 4 mg disintegrating tablet 4 mg PO Q8H PRN nausea and vomiting #10 tabs 01/17/22 [Rx Last Taken Unknown] oxycodone-acetaminophen 5 mg-325 mg tablet (Percocet) 1 tab PO Q6H PRN pain 3 days #10 tabs 01/17/22 [Rx Last Taken Unknown] Allergy/AdvReac Type Severity Reaction Status Date / Time verapamil Allergy Rash Verified 01/17/22 19:59 Surgical History Hx of cardiac catheterization Social History Smoking Status: Former smoker substance use type: does not use ROS ROS Narrative General: very cold today HENT: Denies headache, denies stuffy nose, denies sore throat EYES: Denies changes in vision Resp: Denies cough, has been short of breath over the past couple of days Cardiac: Denies chest pain GI: Every now and then gets abdominal spasms that do not seem to be associated with anything else, intermittent black stools in ostomy over the past 1 month, denies nausea/vomiting : Denies changes in urination Extremity: Still gets some swelling and pain in his right lower extremity MSK: Generalized weakness Neuro: Denies any numbness/tingling, presyncopal episode earlier Heme: Denies any bleeding or bruising Skin: Denies rashes Psychiatric: No complaints voiced Vital Signs Vital Signs Vital Signs: 06/07/23 13:27 06/07/23 14:32 06/07/23 14:35 Temperature 97.1 F L Temperature Source Temporal Pulse Rate 98 Respiratory Rate 22 H Respiratory Effort Short of Breath Respiratory Pattern Tachypnea Blood Pressure 125/63 H Blood Pressure Mean 83 Pulse Ox 87 Oxygen Delivery Method Room Air Room Air 06/07/23 15:26 06/07/23 15:59 06/07/23 16:14 Temperature 98.0 F 96.7 F L Temperature Source Oral Temporal Pulse Rate 86 77 85 Respiratory Rate 24 H 24 H 24 H Respiratory Effort Respiratory Pattern Blood Pressure 131/62 H 123/59 H 132/56 H Blood Pressure Mean 85 80 81 Pulse Ox 96 100 98 Oxygen Delivery Method Room Air Room Air Room Air Weight Weight: 90.7 kg Body Mass Index (BMI) 26.4 Physical Exam Narrative General: Alert, oriented HEENT: Atraumatic, normocephalic Eyes: Anicteric, normal conjunctiva, extraocular movements grossly intact Neck: Supple Respiratory: Clear to auscultation bilaterally, normal respiratory effort Cardiovascular: Regular rate and rhythm GI: Soft, nontender, nondistended, black stool present in ostomy Extremities: Right lower extremity warm, slightly swollen compared to left, has healing incision present on inside of right calf/knee Musculoskeletal: Moving all extremities Neuro: No overt focal neurological deficits Skin: No rashes appreciated Psych: Cooperative Results Lab / Micro Data 06/07/23 13:53 06/07/23 13:55 Labs: Laboratory Results - last 24 hr 06/07/23 13:53: WBC 12.6 H, RBC 2.08 L, Hgb 5.4 L*, Hct 18.0 L, MCV 86.5, MCH 26.0 L, MCHC 30.0 L, RDW Std Deviation 48.1 H, RDW Coeff of Eze 15.3 H, Plt Count 588 H, MPV 8.7, Immature Gran % (Auto) 0.600, Neut % (Auto) 74.8 H, Lymph % (Auto) 18.2 L, [place] % (Auto) 4.2, Eos % (Auto) 1.6, Baso % (Auto) 0.6, Absolute Neuts (auto) 9.5 H, Absolute Lymphs (auto) 2.30, Nucleated RBC % 0.2, Diff Path Review August, Blood Type O POSITIVE, Antibody Screen NEGATIVE, Crossmatch See Detail 06/07/23 13:55: Sodium 139, Potassium 3.9, Chloride 107, Carbon Dioxide 22.0, Anion Gap 10, BUN 15, Creatinine 1.08, Est GFR (MDRD) Af Amer 89, Est GFR (MDRD)Non-Af 74, BUN/Creatinine Ratio 13.9, Glucose 114 H, Calcium 9.1, Total Bilirubin 0.40, Direct Bilirubin 0.10, AST 10 L, ALT 23, Alkaline Phosphatase 91, Troponin I High Sens 7, Total Protein 7.8, Albumin 3.4, Globulin 4.4 H, Lipase 30 Micro: Microbiology 06/07/23 14:30 Stool Stool Occult Blood (VENKATA) - Final Occult Blood Positive Imaging Radiology Impression Abdomen/Pelvis CT 06/07/23 14:33 IMPRESSION: 1. No focal acute inflammatory process. 2. Left sided colostomy. 3. Hepatic steatosis. Electronically Signed: Triston العلي MD at 15:45 EST Reading Location ID and State: [facility] / [place] Tel , Service support , Chest X-Ray 06/07/23 15:25 IMPRESSION: No radiographic evidence of acute cardiopulmonary disease. Electronically Signed: Triston العلي MD at 15:38 EST , Assessment & Plan Assessment/Plan (1) GI bleed: (2) Popliteal artery injury: (3) Psoriasis: (4) Raynaud disease: PLAN: Plan #GI bleed and near syncope -Hemoglobin 5.4 in ED, last value here was in 2021 and was 15.7 and appears hemoglobin prior to that actually runs high -Fecal occult positive -Type and cross with plan to transfuse 2 units -Trend H&H -PPI IV -GI consult -NPO at midnight -AC as below #Recent vascular surgery on R leg -Vascular surgery in October in [place] with a revision/repair May 14 at outlying facility -Unclear exactly what patient had done -Discussed with vascular surgeon, will hold Xarelto in favor of a low-dose fixedrate heparin drip that can be turned off if further drops in hemoglobin after transfusions -It was advised to continue aspirin at this time -Will request records -Also advised to get a CT abdomen with aorta runoff bilaterally -Will place vascular surgery consult, appreciate recommendations #Thrombocytosis -Possibly secondary to inflammation versus iron deficiency -Trend #GERD -PPI #Hx psoriasis -Uses ixekizumab on outpt basis # Raynaud's's -Supportive care, hold nifedipine d/t presyncopal episode #Anxiety -Continue prozac Time spent in the patient's overall evaluation,decision-making process, review of diagnostic data, adjustment of management, discussion with other providers, nursing nursing and ancillary staff involved in patient's care documentation, 61minutes Charges/Coding Visit Charges Inpatient E&M: 48177 Init Hosp L2 06/07/23 1651 <Electronically signed by Amber Gonzalez MD> Cosigner Signature (if applicable): CC: Dr. Amber Gonzalez MD; Dr. Linda Parish MD~ Signed [facility] Work Phone: 1(351) 651-731602-05-2024 Discharge summary Author Reid Ponce [facility] June 07, 2023 4:46pm Note Date/Time June 07, 2023 4 :47pm [facility] Medical Records Department [address] [place] [address] Emergency Department Summary 06/07/23 MR#: [id number] Acct: [id number] Name: CHOCO MALDONADO Rep #:[id number] : 1960 62 From: Reid Ponce DO PCP: Dr. Linda Parish MD Status:REG E R Location: ED HPI HPI - GI History of Present Illness Chief Complaint: Weakness Narrative Narrative: 62-year-old male presenting with lightheadedness, weakness, black stools colostomy bag. Patient states that in August last year he was on a trip to [place] when he had emergency surgery for diverticulitis and is up to have the colostomy bag. He states he follows with Dr. Parra here in the area and was going to be scheduled for colostomy reversal however Dr. Parra was waiting forthe patient to quit smoking which she has done for now greater than 40 days. Patient states recently in the last month and a half went to [place] where he ended up having a cold right lower extremity and had to get emergency femoropopliteal surgery and is on Xarelto at this point. He notes that prior tothe surgery he did have some black stool in his colostomy which had resolved. He also notes that after his femoropopliteal surgery he had to get a unit of blood transfusion which was presumably due to blood loss to the femoropopliteal surgery. [facility] Medical History Arthritis Diverticulitis GERD (gastroesophageal reflux disease) Heart murmur Hypertension Polycythemia Psoriasis Vertigo Home Medications atorvastatin 20 mg tablet 20 mg PO QHS 09/17/15 [History Last Taken Unknown] nifedipine 30 mg tablet,extended release 30 mg PO DAILY raynauds syndrome 09/17/15 [History Last Taken Unknown] omeprazole 10 mg capsule,delayed release 10 mg PO PRN PRN gerd 10/01/17 [History Last Taken Unknown] aspirin 81 mg tablet,delayed release 81 mg PO DAILY 09/20/20 [History Last Taken Unknown] fluoxetine 20 mg capsule 20 mg PO DAILY 09/20/20 [History Last Taken Unknown] ixekizumab 80 mg/mL subcutaneous auto-injector (Taltz Autoinjector) 80 mg subcutQMONTH 09/20/20 [History Last Taken Unknown] rizatriptan 10 mg disintegrating tablet 10 mg PO PRN PRN Migraine Headache 09/20/20 [History Last Taken Unknown] amitriptyline 50 mg tablet 50 mg PO QHS 01/17/22 [History Last Taken Unknown] losartan 25 mg tablet 25 mg PO DAILY 01/17/22 [History Last Taken Unknown] ondansetron 4 mg disintegrating tablet 4 mg PO Q8H PRN nausea and vomiting #10 tabs 01/17/22 [Rx Last Taken Unknown] oxycodone-acetaminophen 5 mg-325 mg tablet (Percocet) 1 tab PO Q6H PRN pain 3 days #10 tabs 01/17/22 [Rx Last Taken Unknown] Allergy/AdvReac Type Severity Reaction Status Date / Time verapamil Allergy Rash Verified 01/17/22 19:59 Surgical History Hx of cardiac catheterization Social History Smoking Status: Former smoker substance use type: does not use ROS ROS ED Constitutional Constitutional ED: Denies chills, fever(s) or sweats Eyes Eyes: Denies blurry vision or change in vision ENT ENT ED: Denies ear pain or sore throat Cardiovascular Cardiovascular: Denies chest pain, palpitations or racing heartbeat Respiratory/Chest Respiratory/Chest: Denies cough, dyspnea or sputum Gastrointestinal Gastrointestinal: Reports abdominal pain and melena; Denies constipation, diarrhea, nausea or vomiting Genitourinary Genitourinary ED: Denies dysuria, hematuria or urinary frequency Musculoskeletal Musculoskeletal: Denies arthralgias, myalgias or neck pain Integumentary Denies abscess, Abrasions or rash Neurologic Neurologic: Denies headache(s), paresthesias or weakness Psychiatric Psychiatric: Denies anxiety, depression, suicidal ideation or suicidal thoughts Endocrine Endocrinology: Denies polydipsia or polyuria EXAM Physical Exam Const Vital Signs: 06/07/23 13:27 06/07/23 14:32 06/07/23 14:35 Temperature 97.1 F L Temperature Source Temporal Pulse Rate 98 Respiratory Rate 22 H Respiratory Effort Short of Breath Respiratory Pattern Tachypnea Blood Pressure 125/63 H Blood Pressure Mean 83 Pulse Ox 87 Oxygen Delivery Method Room Air Room Air 06/07/23 15:26 06/07/23 15:59 06/07/23 16:14 Temperature 98.0 F 96.7 F L Temperature Source Oral Temporal Pulse Rate 86 77 85 Respiratory Rate 24 H 24 H 24 H Respiratory Effort Respiratory Pattern Blood Pressure 131/62 H 123/59 H 132/56 H Blood Pressure Mean 85 80 81 Pulse Ox 96 100 98 Oxygen Delivery Method Room Air Room Air Room Air 06/07/23 16:29 Temperature 96.7 F L Temperature Source Pulse Rate 78 Respiratory Rate 22 H Respiratory Effort Respiratory Pattern Blood Pressure 132/56 H Blood Pressure Mean 81 Pulse Ox 99 Oxygen Delivery Method Positive well nourished General Appearance ED: NAD; Negative for pallor HEENT Reports moist mucous membranes normocephalic Eyes PERRL General Eye ED: Negative for pale conjunctiva or scleral icterus Resp normal respiratory effort and clear to auscultation bilaterally Auscultation: Negative for rales or rhonchi Cardio regular rate and regular rhythm GI GI Narrative: Generalized abdominal tenderness. Colostomy bag with black stool. Neuro CN's II-XII intact bilaterally Sensorium / Orientation: alert Motor Exam: strength 5/5 throughout Psych mental status grossly normal Skin General Skin Exam: Negative for jaundice or pallor MDM MDM MDM Narrative Medical decision making narrative: Patient presenting with weakness, lightheadedness, concern for black stool in his colostomy bag. It does sound like he has had chronically a GI bleed that slow with some black stools prior to his surgery and requiring blood transfusionat that time in [place]. His conjunctiva are not pale and his skin is pink and warm. I suspect this is chronic and not acute although he has become symptomatic with a hemoglobin of 5.4. Patient given IV fluids. Is given a Protonix drip. Patient medicated with fentanyl as his initial blood pressure was a little soft. CBC was obtained and shows leukocytosis 12.6. Hemoglobin 5.4. Platelets 588 therefore elevated. Renal function and electrolytes within normal limits. Liver enzymes are normal. High-sensitivity troponin 7. Patientwas typed and screened for 2 units and states he had blood transfusions in the past and understood the risk and benefits. CT of the abdomen pelvis with IV contrast was obtained and is negative for acute findings. The case was discussed with Dr. Reyes as the patient is a GIB on Xarelto. We will hold thisfor now. Patient will likely need endoscopy. Dr. Herrera did come see the patient in the emergency room. Discussed with the hospitalist for admission. Impression: 1. Upper GI bleed 2. Blood loss anemia Lab Data Labs: Laboratory Results - last 24 hr 06/07/23 06/07/23 13:53 13:55 WBC 12.6 H RBC 2.08 L Hgb 5.4 L* Hct 18.0 L MCV 86.5 MCH 26.0 L MCHC 30.0 L RDW Std Deviation 48.1 H RDW Coeff of Eze 15.3 H Plt Count 588 H MPV 8.7 Immature Gran % (Auto) 0.600 Neut % (Auto) 74.8 H Lymph % (Auto) 18.2 L [place] % (Auto) 4.2 Eos % (Auto) 1.6 Baso % (Auto) 0.6 Absolute Neuts (auto) 9.5 H Absolute Lymphs (auto) 2.30 Nucleated RBC % 0.2 Diff Path Review May foll Sodium 139 Potassium 3.9 Chloride 107 Carbon Dioxide 22.0 Anion Gap 10 BUN 15 Creatinine 1.08 Est GFR (MDRD) Af Amer 89 Est GFR (MDRD) Non-Af 74 BUN/Creatinine Ratio 13.9 Glucose 114 H Calcium 9.1 Total Bilirubin 0.40 Direct Bilirubin 0.10 AST 10 L ALT 23 Alkaline Phosphatase 91 Troponin I High Sens 7 Total Protein 7.8 Albumin 3.4 Globulin 4.4 H Lipase 30 Blood Type O POSITIVE Antibody Screen NEGATIVE Crossmatch See Detail Radiography Diagnostic Testing: Clinical Impression(s) from Imaging Studies Abdomen/Pelvis CT 06/07/23 14:33 IMPRESSION: 1. No focal acute inflammatory process. 2. Left sided colostomy. 3. Hepatic steatosis. Electronically Signed: Triston العلي MD at 15:45 EST , Chest X-Ray 06/07/23 15:25 IMPRESSION: No radiographic evidence of acute cardiopulmonary disease. Electronically Signed: Triston العلي MD at 15:38 EST , Discharge Plan Triage Chief Complaint: Weakness ED Provider: Reid Ponce Dx/Rx/DC Orders Prescriptions: No Action atorvastatin 20 MG tablet 20 mg PO QHS nifedipine 30 MG tablet extended release 30 mg PO DAILY omeprazole 10 MG capsule,delayed release(DR/EC) 10 mg PO PRN PRN (Reason: gerd) aspirin 81 mg tablet,delayed release (DR/EC) 81 mg PO DAILY Patient Comments: TAKE 1 TABLET BY MOUTH EVERY DAY Taltz Autoinjector 80 mg/mL auto-injector 80 mg SUBCUT QMONTH rizatriptan 10 mg tablet,disintegrating 10 mg PO PRN PRN (Reason: Migraine Headache) Patient Comments: TAKE 1 TABLET BY MOUTH NEEDED for migraine, may repeat in 2 (TWO) hours ifneeded fluoxetine 20 mg capsule 20 mg PO DAILY Patient Comments: TAKE 1 CAPSULE BY MOUTH EVERY DAY amitriptyline 50 mg tablet 50 mg PO QHS Patient Comments: TAKE 1 TABLET BY MOUTH DAILY AT BEDTIME losartan 25 mg tablet 25 mg PO DAILY Patient Comments: TAKE 1 TABLET BY MOUTH ONCE DAILY oxycodone-acetaminophen [Percocet] 5-325 mg tablet 1 tab PO Q6H PRN (Reason: pain) 3 Days Qty: 10 0RF ondansetron 4 mg tablet,disintegrating 4 mg PO Q8H PRN (Reason: nausea and vomiting) Qty: 10 0RF Primary Care Provider: Linda Parish Referrals: Linda Parish MD [Primary Care Provider] - What to do if you have Problems For any increased pain, shortness of breath, bleeding, nausea or vomiting, chestpain, or any unexpected problems, contact your Primary Care Provider. Call [facility] ([phone]) or report to the closest Emergency Room. Call 911 if necessary. 06/07/23 1646 <Electronically signed by Reid Ponce DO> Cosigner Signature (if applicable): CC: Dr. Linda Parish MD ~ Signed [facility] Work Phone: 1(183) 613-773601-26-2024 Miscellaneous Notes* Telephone Encounter - Neelam Rodriguez - 05/28/2023 4:54 PM EST Check out comments: Cbc and visit with Max in 3 weeks [facility] Instructions* Patient Instructions* Rosi Alonso DO - 05/27/2023 3:05 PM EST WOUND CARE INSTRUCTIONS- Choco Maldonado Wound location: Right leg 1. Wash your hands with soap and water before and after wound care. 2. Gather all supplies needed. 3. Wash wound with wound wash or normal saline solution. Pat dry. 4. Apply to the wound base:betadine 5. Cover with : abd pad 6. Secure dressing with: Size F tubi surgical dressing maker 7. Change your dressing: Daily and as needed MANUEL WRAP/TUBI-[employer] HE[employer] PROFESSOR: Remove compression wraps if they become uncomfortable or cause a change in color or sensation to the extremity. Your wrap should always be worn from the base of the toes to 1 below the knee. Avoid sitting with your legs in a dependent position or standing for long periods of time.Attempt to lay flat and elevate your legs above the level of your heart 2-3 times daily for 30 minutes at a time. If it becomes necessary to remove the wrap, do so by unwinding it and apply clean dressing as instructed then notify the wound care center. COMPRESSION must be removed if: it becomes wet or soiled If you have numbness or tingling in your foot or toes If you have increased pain If toes become cold or discolored To give your wound the best chance to heal: - Eat three balanced meals daily focusing on the protein - Control swelling by elevating the extremity above your heart - Control your blood sugar. Keep blood sugar less than 200 - Complete your wound care instructions - Vitamin C 500 mg twice daily - Multiple Vitamin Daily - Drink a protein shake daily - premiere shakes for non-diabetic patients Premiere Clear or Glucerna for Diabetic patients and Nepro for Chronic Kidney Disease patients. - Smoking decreases the amount of oxygen delivered to tissue and can impair wound healing and/or increased risk of infection Report any of the following changes [phone] or or go to the Emergency Department: Fever or chills Increased drainage Green or yellow drainage Foul odor Increased pain Hardness around the wound Redness, warmth or swelling of the surrounding tissue Color change to the wound Evenings / Weekends / Holidays If you call the wound center at the phone number provided above, please leave a detailed message that includes your full name, birthday, and phone number. We are seeing patients during the day, so wewill return your call within a 24-48 hr period in the order your call was received. There is not anon-call provider assigned to the wound center. If you have an emergency that needs to be addressed,please go the Urgent Care or the Emergency Room. Thank you for your cooperation and understanding. Plan: Follow-up with Dr. Alonso as scheduled [facility] History of Present illness Narrative* Rosi Alonso DO - 05/27/2023 2:34 PM EST Images from the original note were not included. Heart [facility] V[facility] Thoracic [place] DEPARTMENT OF VASCULAR SURGERY OUTPATIENT VISIT DATE May 27, 2023 OUTPATIENT VISIT TYPE ESTABLISHED SERVICE DATE: 05/27/2023 SERVICE TIME: 2:36 PM PRIMARY CARE PHYSICIAN: Linda Parish MD HISTORY OF PRESENT ILLNESS: Mr. Maldonado is a 62 year old male who presents today for a vascular surgery follow-up visit for follow up on Redo right above knee popliteal to posterior tibial bypass withreversed saphenous vein with ligation of previous bypass. He has noticed swelling, redness and serous drainage PAST MEDICAL HISTORY Diagnosis Date Acute diverticulitis Aortic insufficiency Bursitis of elbow left Coronary artery disease mild nonobstructive Diverticulitis Migraines PAD (peripheral artery disease) (HCC) Palpitations Pinched nerve 11/04/2020 low back Psoriasis Raynaud disease SVT (supraventricular tachycardia) Tobacco abuse PAST SURGICAL HISTORY Procedure Laterality Date COLONOSCOPY FLX DX W/COLLJ SPEC WHEN PFRMD 05/23/2014 Colonoscopy COLONOSCOPY FLX DX W/COLLJ SPEC WHEN PFRMD 09/24/2017 Colonoscopy COLONOSCOPY FLX DX W/COLLJ SPEC WHEN PFRMD 04/16/2021 ESOPHAGOGASTRODUODENOSCOPY TRANSORAL DIAGNOSTIC 05/23/2014 EGD ESOPHAGOGASTRODUODENOSCOPY TRANSORAL DIAGNOSTIC 08/15/2014 EGD HEMORRHOIDECTOMY INT & XTRNL 2/> COLUMN/FAHEEM 10/01/2017 left posterior PAST SURGICAL HISTORY OF 2008 Pain injections lumbar PAST SURGICAL HISTORY OF 08/03/2022 colostomy PAST SURGICAL HISTORY OF Right 12/2022 right popliteal to tibioperoneal trunk bypass RT/LT [facility] 08/09/2020 [facility] SOCIAL HISTORY Social History Tobacco Use Smoking status: Former Packs/day: 1.00 Years: 39.00 Additional pack years: 0.00 Total pack years: 39.00 Types: Cigarettes Start date: 02/11/1981 Quit date: 04/24/2023 Years since quittin.0 Smokeless tobacco: Never Vaping Use Vaping Use: Never used Substance Use Topics Alcohol use: Yes Comment: 3-4 drinks per day 5 days per week Drug use: No MEDICATIONS: polyethylene glycol 3350 17 gram packet Take 1 Packet by mouth once daily as needed for constipation. Dissolve dose in 4 - 8 ounces of liquid and take as directed. rivaroxaban (XARELTO) 20 mg tablet Take 1 tablet by mouth daily with dinner. gabapentin (NEURONTIN) 300 mg capsule Take 1 capsule by mouth every 12 hours. FLUoxetine (PROZAC) 20 mg capsule Take 1 capsule by mouth once daily. gabapentin (NEURONTIN) 100 mg capsule TAKE 1 CAPSULE BY MOUTH THREE TIMES DAILY FOR [address] (PROTONIX) 40 mg tablet Take 1 tablet by mouth daily before breakfast. Take on empty stomach, 1/2 hr before meal. atorvastatin (LIPITOR) 40 mg tablet Take 1 tablet by mouth daily at bedtime. aspirin 81 mg chewable tablet Take 81 mg by mouth once daily. TREMFYA 100 mg/mL AutoInjector every 3 months. amitriptyline (ELAVIL) 25 mg tablet Take 1 tablet by mouth daily at bedtime. fremanezumab-vfrm (AJOVY AUTOINJECTOR) 225 mg/1.5 mL auto-injector Ajovy 225 mg/1.5 mL subcutaneousauto-injector Inject 1.5 mL subcutaneously once a month rimegepant (NURTEC ODT) 75 mg disintegrating tablet Nurtec ODT 75 mg disintegrating tablet Take 1 tab under tongue at onset of migraine. Max 1 in 24 hours. acetaminophen (TYLENOL) 325 mg tablet Take 650 mg by mouth every 6 hours as needed. ALLERGIES: ALLERGIES Allergen Reactions Verapamil Rash PHYSICAL EXAM: BP 119/64 (BP Site: Left Arm, BP Position: Sitting, BP Cuff Size: Regular Adult) Pulse 85 SpO2 98% Gen- no distress Ext- right lower incisional drainage- serous, culture obtained, mild erythema, edema present, warm Diagnostic tests reviewed for today's visit: Most recent labs Most recent imaging IMPRESSION: Mr. Maldonado is a 62 year old male with peripheral arterial disease s/p revascularization . PLAN and RECOMMENDATIONS: Wound cultures obtained. Recommend local wound care. Empiric antibiotics and will ortiz to cultures Follow up in one week SIGNATURE: Rosi Alonso DO PATIENT NAME: Choco Maldonado DATE: May 27, 2023 TIME: 2:36 PM [facility]19[facility]2023 NoteBaystate Medical [id number] NoteBaystate Medical [id number] Note [facility] [id number] NoteHNO ID: [id number] Author: BARBARA DODD RN Service: ? Author Type: Registered Nurse Type: Nursing Progress Note Filed: 05/17/2023 01:45 Note Text: Other: Notified SICU LIP of new drainage from incision site at 2100. No new orders dressing intact.[facility] [id number] [facility] 05-16-2023 NoteBaystate Medical [id number] NoteBaystate Medical [id number] Note [facility] [id number] NoteHNO ID: [id number] Author: NOTE, INTERFACE, ? Service: ? Author Type: ? Type: Progress Notes Filed: 05/15/2023 02:20 Note Text: Epic Scheduled Downtime: 05/15/2023 1:00:00 AM to 05/15/2023 2:04:22 [facility]01-12-2024 NoteBaystate Medical [id number] History of Past illness Narrative* Problem Noted Date Diagnosed Date Resolved Date Postoperative pain 05/14/2023 Overview: History: s/p vascular surgery Assessment: pain controlled Plan: Schedule Tylenol with Oxycodone prn Refractory postoperative hypotension 05/14/2023 05/17/2023 Acute blood loss anemia 05/14/202305/04 Overview: History: s/p vascular surgery, EBL 400 cc Transfused 2 unit PRBC, 1 unit platelets, 1 unit FFP and 1 unit Cryo post-op Assessment: H/H = 7.7/23.6 Plan: Trend CBC Critical limb ischemia of ri ght lower extremity 04/28/2023 04/30/2023 Overview: History: 62 year old male who presents with occluded right leg bypass x3 days, motor/sensory intact with chornic neuropathy 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 500 units of heparin / hr (do not titrate) infused through the sheath. Lay flat. Reverse trendelenburg is OK at 30 degrees. Clear liquids today. NPO after midnight tonight. Ancef 2g every 8 hours while catheter/sheath is still in place. 100 cc / hr NS or LR via peripheral IV. Strict urine output measurements (Smith catheter). Q1 hour neurologic checks. If concern for stroke, call staff immediately, stop tPA and remove the catheter, and obtain stat CT head non-contrast. Do not remove the sheath. Q1 hour vascular checks to the lower extremities. Check labs immediately post-op, and every 6 hours: PT/INR, PTT, Fibrinogen, CBC. If Fibrinogen is <200: -call staff immediately. -Halve the tPA rate to 0.50 mg / hr. -Re-check fibrinogen in 1 hour. 11. If Fibrinogen is < 150: -call staff immediately. -Halve the tPA rate to 0.25 mg / hr. -Transfuse 1 unit of cryoprecipitate. -Recheck Fibrinogen 1 hour after transfusion of cryo. -If still <150, call staff immediately. 12. Do not remove any of the dressings, even if saturated with blood. Just reinforce with more dressings. Plan for lysis-check in the cardiovascular lab director tomorrow morning at 9AM (or sooner if need be). Peripheral arterial disease 02/24/2023 05/22/2023 Pain of right hand 06/30/2022 Esophageal reflux 08/15/2014 08/15/2014 Psoriasis 08/07/2014 02/24/2023 Thrombosed hemorrhoids 08/01/201401/28 Hemorrhage of gastrointestin al tract, unspecified 05/23/2014 05/23/2014 Abdominal pain, unspecified site 05/23/2014 05/23/2014 Sprain of neck 04/21/2008 02/24/2023 Contusion of unspecified site 04/17/2008 02/24/2023 PAIN LEG 04/17/2008 02/24/2023 documented as of this encounter (statuses as of 06/15/2023) [facility] History of Past illness Narrative* Problem Noted Date Diagnosed Date Resolved Date Postoperative pain 05/14/2023 Overview: History: s/p vascular surgery Assessment: pain controlled Plan: Schedule Tylenol with Oxycodone prn Refractory postoperative hypotension 05/14/2023 05/17/2023 Acute blood loss anemia 05/14/202305/04 Overview: History: s/p vascular surgery, EBL 400 cc Transfused 2 unit PRBC, 1 unit platelets, 1 unit FFP and 1 unit Cryo post-op Assessment: H/H = 7.7/23.6 Plan: Trend CBC Critical limb ischemia of ri ght lower extremity 04/28/2023 04/30/2023 Overview: History: 62 year old male who presents with occluded right leg bypass x3 days, motor/sensory intact with chornic neuropathy 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 500 units of heparin / hr (do not titrate) infused through the sheath. Lay flat. Reverse trendelenburg is OK at 30 degrees. Clear liquids today. NPO after midnight tonight. Ancef 2g every 8 hours while catheter/sheath is still in place. 100 cc / hr NS or LR via peripheral IV. Strict urine output measurements (Smith catheter). Q1 hour neurologic checks. If concern for stroke, call staff immediately, stop tPA and remove the catheter, and obtain stat CT head non-contrast. Do not remove the sheath. Q1 hour vascular checks to the lower extremities. Check labs immediately post-op, and every 6 hours: PT/INR, PTT, Fibrinogen, CBC. If Fibrinogen is <200: -call staff immediately. -Halve the tPA rate to 0.50 mg / hr. -Re-check fibrinogen in 1 hour. 11. If Fibrinogen is < 150: -call staff immediately. -Halve the tPA rate to 0.25 mg / hr. -Transfuse 1 unit of cryoprecipitate. -Recheck Fibrinogen 1 hour after transfusion of cryo. -If still <150, call staff immediately. 12. Do not remove any of the dressings, even if saturated with blood. Just reinforce with more dressings. Plan for lysis-check in the cardiovascular lab director tomorrow morning at 9AM (or sooner if need be). Peripheral arterial disease 02/24/2023 05/22/2023 Pain of right hand 06/30/2022 Esophageal reflux 08/15/2014 08/15/2014 Psoriasis 08/07/2014 02/24/2023 Thrombosed hemorrhoids 08/01/201401/28 Hemorrhage of gastrointestin al tract, unspecified 05/23/2014 05/23/2014 Abdominal pain, unspecified site 05/23/2014 05/23/2014 Sprain of neck 04/21/2008 02/24/2023 Contusion of unspecified site 04/17/2008 02/24/2023 PAIN LEG 04/17/2008 02/24/2023 documented as of this encounter (statuses as of 06/17/2023) [facility] of Past illness Narrative* Problem Noted Date Diagnosed Date Resolved Date Postoperative pain 05/14/2023 Overview: History: s/p vascular surgery Assessment: pain controlled Plan: Schedule Tylenol with Oxycodone prn Refractory postoperative hypotension 05/14/2023 05/17/2023 Acute blood loss anemia 05/14/202305/04 Overview: History: s/p vascular surgery, EBL 400 cc Transfused 2 unit PRBC, 1 unit platelets, 1 unit FFP and 1 unit Cryo post-op Assessment: H/H = 7.7/23.6 Plan: Trend CBC Critical limb ischemia of ri ght lower extremity 04/28/2023 04/30/2023 Overview: History: 62 year old male who presents with occluded right leg bypass x3 days, motor/sensory intact with chornic neuropathy 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 500 units of heparin / hr (do not titrate) infused through the sheath. Lay flat. Reverse trendelenburg is OK at 30 degrees. Clear liquids today. NPO after midnight tonight. Ancef 2g every 8 hours while catheter/sheath is still in place. 100 cc / hr NS or LR via peripheral IV. Strict urine output measurements (Smith catheter). Q1 hour neurologic checks. If concern for stroke, call staff immediately, stop tPA and remove the catheter, and obtain stat CT head non-contrast. Do not remove the sheath. Q1 hour vascular checks to the lower extremities. Check labs immediately post-op, and every 6 hours: PT/INR, PTT, Fibrinogen, CBC. If Fibrinogen is <200: -call staff immediately. -Halve the tPA rate to 0.50 mg / hr. -Re-check fibrinogen in 1 hour. 11. If Fibrinogen is < 150: -call staff immediately. -Halve the tPA rate to 0.25 mg / hr. -Transfuse 1 unit of cryoprecipitate. -Recheck Fibrinogen 1 hour after transfusion of cryo. -If still <150, call staff immediately. 12. Do not remove any of the dressings, even if saturated with blood. Just reinforce with more dressings. Plan for lysis-check in the cardiovascular lab director tomorrow morning at 9AM (or sooner if need be). Peripheral arterial disease 02/24/2023 05/22/2023 Pain of right hand 06/30/2022 Esophageal reflux 08/15/2014 08/15/2014 Psoriasis 08/07/2014 02/24/2023 Thrombosed hemorrhoids 08/01/201401/28 Hemorrhage of gastrointestin al tract, unspecified 05/23/2014 05/23/2014 Abdominal pain, unspecified site 05/23/2014 05/23/2014 Sprain of neck 04/21/2008 02/24/2023 Contusion of unspecified site 04/17/2008 02/24/2023 PAIN LEG 04/17/2008 02/24/2023 documented as of this encounter (statuses as of 06/18/2023) [facility] of Past illness Narrative* Problem Noted Date Diagnosed Date Resolved Date PAD (peripheral artery disease) 05/14/2023 06/19/2023 Overview: History: 62 year old male with 4-7mm tapered non-reinforced above knee popliteal to tp trunk bypass with occlusion after 6 months requiring lysis presents for bypass revision. Assessment: Right leg incision clean, dry and intact, surgical glue intact 2+ PT pulses bilaterally Plan: 05/14/2023 Redo right above knee popliteal to posterior tibial bypass with reversed right saphenous vein. Ligation of prior fem-tp trunk bypass, right saphenous vein harvest. Completion angiogram. ASA, statin Heparin gtt -> plan to transition to therapeutic Xarelto (20 mg daily with dinner) at discharge instead of 2.5 mg BID Follow up in one month with right leg arterial duplex and SAVANNA. Postoperative pain 05/14/2023 Overview: History: s/p vascular surgery Assessment: pain controlled Plan: Schedule Tylenol with Oxycodone prn Refractory postoperative hypotension 05/14/2023 05/17/2023 Acute blood loss anemia 05/14/202305/04 Overview: History: s/p vascular surgery, EBL 400 cc Transfused 2 unit PRBC, 1 unit platelets, 1 unit FFP and 1 unit Cryo post-op Assessment: H/H = 7.7/23.6 Plan: Trend CBC Critical limb ischemia of ri ght lower extremity 04/28/2023 04/30/2023 Overview: History: 62 year old male who presents with occluded right leg bypass x3 days, motor/sensory intact with chornic neuropathy 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 500 units of heparin / hr (do not titrate) infused through the sheath. Lay flat. Reverse trendelenburg is OK at 30 degrees. Clear liquids today. NPO after midnight tonight. Ancef 2g every 8 hours while catheter/sheath is still in place. 100 cc / hr NS or LR via peripheral IV. Strict urine output measurements (Smith catheter). Q1 hour neurologic checks. If concern for stroke, call staff immediately, stop tPA and remove the catheter, and obtain stat CT head non-contrast. Do not remove the sheath. Q1 hour vascular checks to the lower extremities. Check labs immediately post-op, and every 6 hours: PT/INR, PTT, Fibrinogen, CBC. If Fibrinogen is <200: -call staff immediately. -Halve the tPA rate to 0.50 mg / hr. -Re-check fibrinogen in 1 hour. 11. If Fibrinogen is < 150: -call staff immediately. -Halve the tPA rate to 0.25 mg / hr. -Transfuse 1 unit of cryoprecipitate. -Recheck Fibrinogen 1 hour after transfusion of cryo. -If still <150, call staff immediately. 12. Do not remove any of the dressings, even if saturated with blood. Just reinforce with more dressings. Plan for lysis-check in the cardiovascular lab director tomorrow morning at 9AM (or sooner if need be). Peripheral arterial disease 02/24/2023 05/22/2023 Pain of right hand 06/30/2022 Esophageal reflux 08/15/2014 08/15/2014 Psoriasis 08/07/2014 02/24/2023 Thrombosed hemorrhoids 08/01/201401/28 Hemorrhage of gastrointestin al tract, unspecified 05/23/2014 05/23/2014 Abdominal pain, unspecified site 05/23/2014 05/23/2014 Sprain of neck 04/21/2008 02/24/2023 Contusion of unspecified site 04/17/2008 02/24/2023 PAIN LEG 04/17/2008 02/24/2023 documented as of this encounter (statuses as of 06/19/2023) [facility] of Past illness Narrative* Problem Noted Date Diagnosed Date Resolved Date PAD (peripheral artery disease) 05/14/2023 06/19/2023 Overview: History: 62 year old male with 4-7mm tapered non-reinforced above knee popliteal to tp trunk bypass with occlusion after 6 months requiring lysis presents for bypass revision. Assessment: Right leg incision clean, dry and intact, surgical glue intact 2+ PT pulses bilaterally Plan: 05/14/2023 Redo right above knee popliteal to posterior tibial bypass with reversed right saphenous vein. Ligation of prior fem-tp trunk bypass, right saphenous vein harvest. Completion angiogram. ASA, statin Heparin gtt -> plan to transition to therapeutic Xarelto (20 mg daily with dinner) at discharge instead of 2.5 mg BID Follow up in one month with right leg arterial duplex and SAVANNA. Postoperative pain 05/14/2023 Overview: History: s/p vascular surgery Assessment: pain controlled Plan: Schedule Tylenol with Oxycodone prn Refractory postoperative hypotension 05/14/2023 05/17/2023 Acute blood loss anemia 05/14/20232 Overview: History: s/p vascular surgery, EBL 400 cc Transfused 2 unit PRBC, 1 unit platelets, 1 unit FFP and 1 unit Cryo post-op Assessment: H/H = 7.7/23.6 Plan: Trend CBC Critical limb ischemia of ri ght lower extremity 04/28/2023 04/30/2023 Overview: History: 62 year old male who presents with occluded right leg bypass x3 days, motor/sensory intact with chornic neuropathy 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 500 units of heparin / hr (do not titrate) infused through the sheath. Lay flat. Reverse trendelenburg is OK at 30 degrees. Clear liquids today. NPO after midnight tonight. Ancef 2g every 8 hours while catheter/sheath is still in place. 100 cc / hr NS or LR via peripheral IV. Strict urine output measurements (Smith catheter). Q1 hour neurologic checks. If concern for stroke, call staff immediately, stop tPA and remove the catheter, and obtain stat CT head non-contrast. Do not remove the sheath. Q1 hour vascular checks to the lower extremities. Check labs immediately post-op, and every 6 hours: PT/INR, PTT, Fibrinogen, CBC. If Fibrinogen is <200: -call staff immediately. -Halve the tPA rate to 0.50 mg / hr. -Re-check fibrinogen in 1 hour. 11. If Fibrinogen is < 150: -call staff immediately. -Halve the tPA rate to 0.25 mg / hr. -Transfuse 1 unit of cryoprecipitate. -Recheck Fibrinogen 1 hour after transfusion of cryo. -If still <150, call staff immediately. 12. Do not remove any of the dressings, even if saturated with blood. Just reinforce with more dressings. Plan for lysis-check in the cardiovascular lab director tomorrow morning at 9AM (or sooner if need be). Peripheral arterial disease 02/24/2023 05/22/2023 Pain of right hand 06/30/2022 Esophageal reflux 08/15/2014 08/15/2014 Psoriasis 08/07/2014 02/24/2023 Thrombosed hemorrhoids 08/01/201401/28 Hemorrhage of gastrointestin al tract, unspecified 05/23/2014 05/23/2014 Abdominal pain, unspecified site 05/23/2014 05/23/2014 Sprain of neck 04/21/2008 02/24/2023 Contusion of unspecified site 04/17/2008 02/24/2023 PAIN LEG 04/17/2008 02/24/2023 documented as of this encounter (statuses as of 06/21/2023) [facility] of Past illness Narrative* Problem Noted Date Diagnosed Date Resolved Date PAD (peripheral artery disease) 05/14/2023 06/19/2023 Overview: History: 62 year old male with 4-7mm tapered non-reinforced above knee popliteal to tp trunk bypass with occlusion after 6 months requiring lysis presents for bypass revision. Assessment: Right leg incision clean, dry and intact, surgical glue intact 2+ PT pulses bilaterally Plan: 05/14/2023 Redo right above knee popliteal to posterior tibial bypass with reversed right saphenous vein. Ligation of prior fem-tp trunk bypass, right saphenous vein harvest. Completion angiogram. ASA, statin Heparin gtt -> plan to transition to therapeutic Xarelto (20 mg daily with dinner) at discharge instead of 2.5 mg BID Follow up in one month with right leg arterial duplex and SAVANNA. Postoperative pain 05/14/2023 Overview: History: s/p vascular surgery Assessment: pain controlled Plan: Schedule Tylenol with Oxycodone prn Refractory postoperative hypotension 05/14/2023 05/17/2023 Acute blood loss anemia 05/14/202305/04 Overview: History: s/p vascular surgery, EBL 400 cc Transfused 2 unit PRBC, 1 unit platelets, 1 unit FFP and 1 unit Cryo post-op Assessment: H/H = 7.7/23.6 Plan: Trend CBC Critical limb ischemia of ri ght lower extremity 04/28/2023 04/30/2023 Overview: History: 62 year old male who presents with occluded right leg bypass x3 days, motor/sensory intact with chornic neuropathy 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 500 units of heparin / hr (do not titrate) infused through the sheath. Lay flat. Reverse trendelenburg is OK at 30 degrees. Clear liquids today. NPO after midnight tonight. Ancef 2g every 8 hours while catheter/sheath is still in place. 100 cc / hr NS or LR via peripheral IV. Strict urine output measurements (Smith catheter). Q1 hour neurologic checks. If concern for stroke, call staff immediately, stop tPA and remove the catheter, and obtain stat CT head non-contrast. Do not remove the sheath. Q1 hour vascular checks to the lower extremities. Check labs immediately post-op, and every 6 hours: PT/INR, PTT, Fibrinogen, CBC. If Fibrinogen is <200: -call staff immediately. -Halve the tPA rate to 0.50 mg / hr. -Re-check fibrinogen in 1 hour. 11. If Fibrinogen is < 150: -call staff immediately. -Halve the tPA rate to 0.25 mg / hr. -Transfuse 1 unit of cryoprecipitate. -Recheck Fibrinogen 1 hour after transfusion of cryo. -If still <150, call staff immediately. 12. Do not remove any of the dressings, even if saturated with blood. Just reinforce with more dressings. Plan for lysis-check in the cardiovascular lab director tomorrow morning at 9AM (or sooner if need be). Peripheral arterial disease 02/24/2023 05/22/2023 Pain of right hand 06/30/2022 Esophageal reflux 08/15/2014 08/15/2014 Psoriasis 08/07/2014 02/24/2023 Thrombosed hemorrhoids 08/01/201401/28 Hemorrhage of gastrointestin al tract, unspecified 05/23/2014 05/23/2014 Abdominal pain, unspecified site 05/23/2014 05/23/2014 Sprain of neck 04/21/2008 02/24/2023 Contusion of unspecified site 04/17/2008 02/24/2023 PAIN LEG 04/17/2008 02/24/2023 documented as of this encounter (statuses as of 06/21/2023) [facility] of Past illness Narrative* Problem Noted Date Diagnosed Date Resolved Date PAD (peripheral artery disease) 05/14/2023 06/19/2023 Overview: History: 62 year old male with 4-7mm tapered non-reinforced above knee popliteal to tp trunk bypass with occlusion after 6 months requiring lysis presents for bypass revision. Assessment: Right leg incision clean, dry and intact, surgical glue intact 2+ PT pulses bilaterally Plan: 05/14/2023 Redo right above knee popliteal to posterior tibial bypass with reversed right saphenous vein. Ligation of prior fem-tp trunk bypass, right saphenous vein harvest. Completion angiogram. ASA, statin Heparin gtt -> plan to transition to therapeutic Xarelto (20 mg daily with dinner) at discharge instead of 2.5 mg BID Follow up in one month with right leg arterial duplex and SAVANNA. Postoperative pain 05/14/2023 Overview: History: s/p vascular surgery Assessment: pain controlled Plan: Schedule Tylenol with Oxycodone prn Refractory postoperative hypotension 05/14/2023 05/17/2023 Acute blood loss anemia 05/14/202305/04 Overview: History: s/p vascular surgery, EBL 400 cc Transfused 2 unit PRBC, 1 unit platelets, 1 unit FFP and 1 unit Cryo post-op Assessment: H/H = 7.7/23.6 Plan: Trend CBC Critical limb ischemia of ri ght lower extremity 04/28/2023 04/30/2023 Overview: History: 62 year old male who presents with occluded right leg bypass x3 days, motor/sensory intact with chornic neuropathy 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 500 units of heparin / hr (do not titrate) infused through the sheath. Lay flat. Reverse trendelenburg is OK at 30 degrees. Clear liquids today. NPO after midnight tonight. Ancef 2g every 8 hours while catheter/sheath is still in place. 100 cc / hr NS or LR via peripheral IV. Strict urine output measurements (Smith catheter). Q1 hour neurologic checks. If concern for stroke, call staff immediately, stop tPA and remove the catheter, and obtain stat CT head non-contrast. Do not remove the sheath. Q1 hour vascular checks to the lower extremities. Check labs immediately post-op, and every 6 hours: PT/INR, PTT, Fibrinogen, CBC. If Fibrinogen is <200: -call staff immediately. -Halve the tPA rate to 0.50 mg / hr. -Re-check fibrinogen in 1 hour. 11. If Fibrinogen is < 150: -call staff immediately. -Halve the tPA rate to 0.25 mg / hr. -Transfuse 1 unit of cryoprecipitate. -Recheck Fibrinogen 1 hour after transfusion of cryo. -If still <150, call staff immediately. 12. Do not remove any of the dressings, even if saturated with blood. Just reinforce with more dressings. Plan for lysis-check in the cardiovascular lab director tomorrow morning at 9AM (or sooner if need be). Peripheral arterial disease 02/24/2023 05/22/2023 Pain of right hand 06/30/2022 Esophageal reflux 08/15/2014 08/15/2014 Psoriasis 08/07/2014 02/24/2023 Thrombosed hemorrhoids 08/01/201401/28 Hemorrhage of gastrointestin al tract, unspecified 05/23/2014 05/23/2014 Abdominal pain, unspecified site 05/23/2014 05/23/2014 Sprain of neck 04/21/2008 02/24/2023 Contusion of unspecified site 04/17/2008 02/24/2023 PAIN LEG 04/17/2008 02/24/2023 documented as of this encounter (statuses as of 06/21/2023) [facility] of Past illness Narrative* Problem Noted Date Diagnosed Date Resolved Date PAD (peripheral artery disease) 05/14/2023 06/19/2023 Overview: History: 62 year old male with 4-7mm tapered non-reinforced above knee popliteal to tp trunk bypass with occlusion after 6 months requiring lysis presents for bypass revision. Assessment: Right leg incision clean, dry and intact, surgical glue intact 2+ PT pulses bilaterally Plan: 05/14/2023 Redo right above knee popliteal to posterior tibial bypass with reversed right saphenous vein. Ligation of prior fem-tp trunk bypass, right saphenous vein harvest. Completion angiogram. ASA, statin Heparin gtt -> plan to transition to therapeutic Xarelto (20 mg daily with dinner) at discharge instead of 2.5 mg BID Follow up in one month with right leg arterial duplex and SAVANNA. Postoperative pain 05/14/2023 Overview: History: s/p vascular surgery Assessment: pain controlled Plan: Schedule Tylenol with Oxycodone prn Refractory postoperative hypotension 05/14/2023 05/17/2023 Acute blood loss anemia 05/14/202305/04 Overview: History: s/p vascular surgery, EBL 400 cc Transfused 2 unit PRBC, 1 unit platelets, 1 unit FFP and 1 unit Cryo post-op Assessment: H/H = 7.7/23.6 Plan: Trend CBC Critical limb ischemia of ri t lower extremity 04/28/2023 04/30/2023 Overview: History: 62 year old male who presents with occluded right leg bypass x3 days, motor/sensory intact with chornic neuropathy 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 500 units of heparin / hr (do not titrate) infused through the sheath. Lay flat. Reverse trendelenburg is OK at 30 degrees. Clear liquids today. NPO after midnight tonight. Ancef 2g every 8 hours while catheter/sheath is still in place. 100 cc / hr NS or LR via peripheral IV. Strict urine output measurements (Smith catheter). Q1 hour neurologic checks. If concern for stroke, call staff immediately, stop tPA and remove the catheter, and obtain stat CT head non-contrast. Do not remove the sheath. Q1 hour vascular checks to the lower extremities. Check labs immediately post-op, and every 6 hours: PT/INR, PTT, Fibrinogen, CBC. If Fibrinogen is <200: -call staff immediately. -Halve the tPA rate to 0.50 mg / hr. -Re-check fibrinogen in 1 hour. 11. If Fibrinogen is < 150: -call staff immediately. -Halve the tPA rate to 0.25 mg / hr. -Transfuse 1 unit of cryoprecipitate. -Recheck Fibrinogen 1 hour after transfusion of cryo. -If still <150, call staff immediately. 12. Do not remove any of the dressings, even if saturated with blood. Just reinforce with more dressings. Plan for lysis-check in the cardiovascular lab director tomorrow morning at 9AM (or sooner if need be). Peripheral arterial disease 02/24/2023 05/22/2023 Pain of right hand 06/30/2022 Esophageal reflux 08/15/2014 08/15/2014 Psoriasis 08/07/2014 02/24/2023 Thrombosed hemorrhoids 08/01/201401/28 Hemorrhage of gastrointestin al tract, unspecified 05/23/2014 05/23/2014 Abdominal pain, unspecified site 05/23/2014 05/23/2014 Sprain of neck 04/21/2008 02/24/2023 Contusion of unspecified site 04/17/2008 02/24/2023 PAIN LEG 04/17/2008 02/24/2023 documented as of this encounter (statuses as of 06/22/2023) [facility]01-12-2024 History of Past illness Narrative* Problem Noted Date Diagnosed Date Resolved Date PAD (peripheral artery disease) 05/14/2023 06/19/2023 Overview: History: 62 year old male with 4-7mm tapered non-reinforced above knee popliteal to tp trunk bypass with occlusion after 6 months requiring lysis presents for bypass revision. Assessment: Right leg incision clean, dry and intact, surgical glue intact 2+ PT pulses bilaterally Plan: 05/14/2023 Redo right above knee popliteal to posterior tibial bypass with reversed right saphenous vein. Ligation of prior fem-tp trunk bypass, right saphenous vein harvest. Completion angiogram. ASA, statin Heparin gtt -> plan to transition to therapeutic Xarelto (20 mg daily with dinner) at discharge instead of 2.5 mg BID Follow up in one month with right leg arterial duplex and SAVANNA. Postoperative pain 05/14/2023 Overview: History: s/p vascular surgery Assessment: pain controlled Plan: Schedule Tylenol with Oxycodone prn Refractory postoperative hypotension 05/14/2023 05/17/2023 Acute blood loss anemia 05/14/202305/04 Overview: History: s/p vascular surgery, EBL 400 cc Transfused 2 unit PRBC, 1 unit platelets, 1 unit FFP and 1 unit Cryo post-op Assessment: H/H = 7.7/23.6 Plan: Trend CBC Critical limb ischemia of ri ght lower extremity 04/28/2023 04/30/2023 Overview: History: 62 year old male who presents with occluded right leg bypass x3 days, motor/sensory intact with chornic neuropathy 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 500 units of heparin / hr (do not titrate) infused through the sheath. Lay flat. Reverse trendelenburg is OK at 30 degrees. Clear liquids today. NPO after midnight tonight. Ancef 2g every 8 hours while catheter/sheath is still in place. 100 cc / hr NS or LR via peripheral IV. Strict urine output measurements (Smith catheter). Q1 hour neurologic checks. If concern for stroke, call staff immediately, stop tPA and remove the catheter, and obtain stat CT head non-contrast. Do not remove the sheath. Q1 hour vascular checks to the lower extremities. Check labs immediately post-op, and every 6 hours: PT/INR, PTT, Fibrinogen, CBC. If Fibrinogen is <200: -call staff immediately. -Halve the tPA rate to 0.50 mg / hr. -Re-check fibrinogen in 1 hour. 11. If Fibrinogen is < 150: -call staff immediately. -Halve the tPA rate to 0.25 mg / hr. -Transfuse 1 unit of cryoprecipitate. -Recheck Fibrinogen 1 hour after transfusion of cryo. -If still <150, call staff immediately. 12. Do not remove any of the dressings, even if saturated with blood. Just reinforce with more dressings. Plan for lysis-check in the cardiovascular lab director tomorrow morning at 9AM (or sooner if need be). Peripheral arterial disease 02/24/2023 05/22/2023 Pain of right hand 06/30/2022 Esophageal reflux 08/15/2014 08/15/2014 Psoriasis 08/07/2014 02/24/2023 Thrombosed hemorrhoids 08/01/201401/28 Hemorrhage of gastrointestin al tract, unspecified 05/23/2014 05/23/2014 Abdominal pain, unspecified site 05/23/2014 05/23/2014 Sprain of neck 04/21/2008 02/24/2023 Contusion of unspecified site 04/17/2008 02/24/2023 PAIN LEG 04/17/2008 02/24/2023 documented as of this encounter (statuses as of 06/30/2023) [facility]01-12-[facility]24 History of Past illness Narrative* Problem Noted Date Diagnosed Date Resolved Date PAD (peripheral artery disease) 05/14/2023 06/19/2023 Overview: History: 62 year old male with 4-7mm tapered non-reinforced above knee popliteal to tp trunk bypass with occlusion after 6 months requiring lysis presents for bypass revision. Assessment: Right leg incision clean, dry and intact, surgical glue intact 2+ PT pulses bilaterally Plan: 05/14/2023 Redo right above knee popliteal to posterior tibial bypass with reversed right saphenous vein. Ligation of prior fem-tp trunk bypass, right saphenous vein harvest. Completion angiogram. ASA, statin Heparin gtt -> plan to transition to therapeutic Xarelto (20 mg daily with dinner) at discharge instead of 2.5 mg BID Follow up in one month with right leg arterial duplex and SAVANNA. Postoperative pain 05/14/2023 Overview: History: s/p vascular surgery Assessment: pain controlled Plan: Schedule Tylenol with Oxycodone prn Refractory postoperative hypotension 05/14/2023 05/17/2023 Acute blood loss anemia 05/14/20232 Overview: History: s/p vascular surgery, EBL 400 cc Transfused 2 unit PRBC, 1 unit platelets, 1 unit FFP and 1 unit Cryo post-op Assessment: H/H = 7.7/23.6 Plan: Trend CBC Critical limb ischemia of ri ght lower extremity 04/28/2023 04/30/2023 Overview: History: 62 year old male who presents with occluded right leg bypass x3 days, motor/sensory intact with chornic neuropathy 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 500 units of heparin / hr (do not titrate) infused through the sheath. Lay flat. Reverse trendelenburg is OK at 30 degrees. Clear liquids today. NPO after midnight tonight. Ancef 2g every 8 hours while catheter/sheath is still in place. 100 cc / hr NS or LR via peripheral IV. Strict urine output measurements (Smith catheter). Q1 hour neurologic checks. If concern for stroke, call staff immediately, stop tPA and remove the catheter, and obtain stat CT head non-contrast. Do not remove the sheath. Q1 hour vascular checks to the lower extremities. Check labs immediately post-op, and every 6 hours: PT/INR, PTT, Fibrinogen, CBC. If Fibrinogen is <200: -call staff immediately. -Halve the tPA rate to 0.50 mg / hr. -Re-check fibrinogen in 1 hour. 11. If Fibrinogen is < 150: -call staff immediately. -Halve the tPA rate to 0.25 mg / hr. -Transfuse 1 unit of cryoprecipitate. -Recheck Fibrinogen 1 hour after transfusion of cryo. -If still <150, call staff immediately. 12. Do not remove any of the dressings, even if saturated with blood. Just reinforce with more dressings. Plan for lysis-check in the cardiovascular lab director tomorrow morning at 9AM (or sooner if need be). Peripheral arterial disease 02/24/2023 05/22/2023 Pain of right hand 06/30/2022 Esophageal reflux 08/15/2014 08/15/2014 Psoriasis 08/07/2014 02/24/2023 Thrombosed hemorrhoids 08/01/201401/28 Hemorrhage of gastrointestin al tract, unspecified 05/23/2014 05/23/2014 Abdominal pain, unspecified site 05/23/2014 05/23/2014 Sprain of neck 04/21/2008 02/24/2023 Contusion of unspecified site 04/17/2008 02/24/2023 PAIN LEG 04/17/2008 02/24/2023 documented as of this encounter (statuses as of 07/01/2023) [facility]01-12-[facility] History of Past illness Narrative* Problem Noted Date Diagnosed Date Resolved Date PAD (peripheral artery disease) 05/14/2023 06/19/2023 Overview: History: 62 year old male with 4-7mm tapered non-reinforced above knee popliteal to tp trunk bypass with occlusion after 6 months requiring lysis presents for bypass revision. Assessment: Right leg incision clean, dry and intact, surgical glue intact 2+ PT pulses bilaterally Plan: 05/14/2023 Redo right above knee popliteal to posterior tibial bypass with reversed right saphenous vein. Ligation of prior fem-tp trunk bypass, right saphenous vein harvest. Completion angiogram. ASA, statin Heparin gtt -> plan to transition to therapeutic Xarelto (20 mg daily with dinner) at discharge instead of 2.5 mg BID Follow up in one month with right leg arterial duplex and SAVANNA. Postoperative pain 05/14/2023 Overview: History: s/p vascular surgery Assessment: pain controlled Plan: Schedule Tylenol with Oxycodone prn Refractory postoperative hypotension 05/14/2023 05/17/2023 Acute blood loss anemia 05/14/202305/04 Overview: History: s/p vascular surgery, EBL 400 cc Transfused 2 unit PRBC, 1 unit platelets, 1 unit FFP and 1 unit Cryo post-op Assessment: H/H = 7.7/23.6 Plan: Trend CBC Critical limb ischemia of ri ght lower extremity 04/28/2023 04/30/2023 Overview: History: 62 year old male who presents with occluded right leg bypass x3 days, motor/sensory intact with chornic neuropathy 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 500 units of heparin / hr (do not titrate) infused through the sheath. Lay flat. Reverse trendelenburg is OK at 30 degrees. Clear liquids today. NPO after midnight tonight. Ancef 2g every 8 hours while catheter/sheath is still in place. 100 cc / hr NS or LR via peripheral IV. Strict urine output measurements (Smith catheter). Q1 hour neurologic checks. If concern for stroke, call staff immediately, stop tPA and remove the catheter, and obtain stat CT head non-contrast. Do not remove the sheath. Q1 hour vascular checks to the lower extremities. Check labs immediately post-op, and every 6 hours: PT/INR, PTT, Fibrinogen, CBC. If Fibrinogen is <200: -call staff immediately. -Halve the tPA rate to 0.50 mg / hr. -Re-check fibrinogen in 1 hour. 11. If Fibrinogen is < 150: -call staff immediately. -Halve the tPA rate to 0.25 mg / hr. -Transfuse 1 unit of cryoprecipitate. -Recheck Fibrinogen 1 hour after transfusion of cryo. -If still <150, call staff immediately. 12. Do not remove any of the dressings, even if saturated with blood. Just reinforce with more dressings. Plan for lysis-check in the cardiovascular lab director tomorrow morning at 9AM (or sooner if need be). Peripheral arterial disease 02/24/2023 05/22/2023 Pain of right hand 06/30/2022 Esophageal reflux 08/15/2014 08/15/2014 Psoriasis 08/07/2014 02/24/2023 Thrombosed hemorrhoids 08/01/201401/28 Hemorrhage of gastrointestin al tract, unspecified 05/23/2014 05/23/2014 Abdominal pain, unspecified site 05/23/2014 05/23/2014 Sprain of neck 04/21/2008 02/24/2023 Contusion of unspecified site 04/17/2008 02/24/2023 PAIN LEG 04/17/2008 02/24/2023 documented as of this encounter (statuses as of 07/05/2023) [facility]01-[facility] History of Past illness Narrative* Problem Noted Date Diagnosed Date Resolved Date PAD (peripheral artery disease) 05/14/2023 06/19/2023 Overview: History: 62 year old male with 4-7mm tapered non-reinforced above knee popliteal to tp trunk bypass with occlusion after 6 months requiring lysis presents for bypass revision. Assessment: Right leg incision clean, dry and intact, surgical glue intact 2+ PT pulses bilaterally Plan: 05/14/2023 Redo right above knee popliteal to posterior tibial bypass with reversed right saphenous vein. Ligation of prior fem-tp trunk bypass, right saphenous vein harvest. Completion angiogram. ASA, statin Heparin gtt -> plan to transition to therapeutic Xarelto (20 mg daily with dinner) at discharge instead of 2.5 mg BID Follow up in one month with right leg arterial duplex and SAVANNA. Postoperative pain 05/14/2023 Overview: History: s/p vascular surgery Assessment: pain controlled Plan: Schedule Tylenol with Oxycodone prn Refractory postoperative hypotension 05/14/2023 05/17/2023 Acute blood loss anemia 05/14/202305/04 Overview: History: s/p vascular surgery, EBL 400 cc Transfused 2 unit PRBC, 1 unit platelets, 1 unit FFP and 1 unit Cryo post-op Assessment: H/H = 7.7/23.6 Plan: Trend CBC Critical limb ischemia of ri ght lower extremity 04/28/2023 04/30/2023 Overview: History: 62 year old male who presents with occluded right leg bypass x3 days, motor/sensory intact with chornic neuropathy 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 500 units of heparin / hr (do not titrate) infused through the sheath. Lay flat. Reverse trendelenburg is OK at 30 degrees. Clear liquids today. NPO after midnight tonight. Ancef 2g every 8 hours while catheter/sheath is still in place. 100 cc / hr NS or LR via peripheral IV. Strict urine output measurements (Smith catheter). Q1 hour neurologic checks. If concern for stroke, call staff immediately, stop tPA and remove the catheter, and obtain stat CT head non-contrast. Do not remove the sheath. Q1 hour vascular checks to the lower extremities. Check labs immediately post-op, and every 6 hours: PT/INR, PTT, Fibrinogen, CBC. If Fibrinogen is <200: -call staff immediately. -Halve the tPA rate to 0.50 mg / hr. -Re-check fibrinogen in 1 hour. 11. If Fibrinogen is < 150: -call staff immediately. -Halve the tPA rate to 0.25 mg / hr. -Transfuse 1 unit of cryoprecipitate. -Recheck Fibrinogen 1 hour after transfusion of cryo. -If still <150, call staff immediately. 12. Do not remove any of the dressings, even if saturated with blood. Just reinforce with more dressings. Plan for lysis-check in the cardiovascular lab director tomorrow morning at 9AM (or sooner if need be). Peripheral arterial disease 02/24/2023 05/22/2023 Pain of right hand 06/30/2022 Esophageal reflux 08/15/2014 08/15/2014 Psoriasis 08/07/2014 02/24/2023 Thrombosed hemorrhoids 08/01/201401/28 Hemorrhage of gastrointestin al tract, unspecified 05/23/2014 05/23/2014 Abdominal pain, unspecified site 05/23/2014 05/23/2014 Sprain of neck 04/21/2008 02/24/2023 Contusion of unspecified site 04/17/2008 02/24/2023 PAIN LEG 04/17/2008 02/24/2023 documented as of this encounter (statuses as of 07/14/2023) [facility] History of Past illness Narrative* Problem Noted Date Diagnosed Date Resolved Date PAD (peripheral artery disease) 05/14/2023 06/19/2023 Overview: History: 62 year old male with 4-7mm tapered non-reinforced above knee popliteal to tp trunk bypass with occlusion after 6 months requiring lysis presents for bypass revision. Assessment: Right leg incision clean, dry and intact, surgical glue intact 2+ PT pulses bilaterally Plan: 05/14/2023 Redo right above knee popliteal to posterior tibial bypass with reversed right saphenous vein. Ligation of prior fem-tp trunk bypass, right saphenous vein harvest. Completion angiogram. ASA, statin Heparin gtt -> plan to transition to therapeutic Xarelto (20 mg daily with dinner) at discharge instead of 2.5 mg BID Follow up in one month with right leg arterial duplex and SAVANNA. Postoperative pain 05/14/2023 Overview: History: s/p vascular surgery Assessment: pain controlled Plan: Schedule Tylenol with Oxycodone prn Refractory postoperative hypotension 05/14/2023 05/17/2023 Acute blood loss anemia 05/14/202305/04 Overview: History: s/p vascular surgery, EBL 400 cc Transfused 2 unit PRBC, 1 unit platelets, 1 unit FFP and 1 unit Cryo post-op Assessment: H/H = 7.7/23.6 Plan: Trend CBC Critical limb ischemia of ri t lower extremity 04/28/2023 04/30/2023 Overview: History: 62 year old male who presents with occluded right leg bypass x3 days, motor/sensory intact with chornic neuropathy 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 500 units of heparin / hr (do not titrate) infused through the sheath. Lay flat. Reverse trendelenburg is OK at 30 degrees. Clear liquids today. NPO after midnight tonight. Ancef 2g every 8 hours while catheter/sheath is still in place. 100 cc / hr NS or LR via peripheral IV. Strict urine output measurements (Smith catheter). Q1 hour neurologic checks. If concern for stroke, call staff immediately, stop tPA and remove the catheter, and obtain stat CT head non-contrast. Do not remove the sheath. Q1 hour vascular checks to the lower extremities. Check labs immediately post-op, and every 6 hours: PT/INR, PTT, Fibrinogen, CBC. If Fibrinogen is <200: -call staff immediately. -Halve the tPA rate to 0.50 mg / hr. -Re-check fibrinogen in 1 hour. 11. If Fibrinogen is < 150: -call staff immediately. -Halve the tPA rate to 0.25 mg / hr. -Transfuse 1 unit of cryoprecipitate. -Recheck Fibrinogen 1 hour after transfusion of cryo. -If still <150, call staff immediately. 12. Do not remove any of the dressings, even if saturated with blood. Just reinforce with more dressings. Plan for lysis-check in the cardiovascular lab director tomorrow morning at 9AM (or sooner if need be). Peripheral arterial disease 02/24/2023 05/22/2023 Pain of right hand 06/30/2022 Esophageal reflux 08/15/2014 08/15/2014 Psoriasis 08/07/2014 02/24/2023 Thrombosed hemorrhoids 08/01/201401/28 Hemorrhage of gastrointestin al tract, unspecified 05/23/2014 05/23/2014 Abdominal pain, unspecified site 05/23/2014 05/23/2014 Sprain of neck 04/21/2008 02/24/2023 Contusion of unspecified site 04/17/2008 02/24/2023 PAIN LEG 04/17/2008 02/24/2023 documented as of this encounter (statuses as of 07/14/2023) [facility] History of Past illness Narrative* Problem Noted Date Diagnosed Date Resolved Date PAD (peripheral artery disease) 05/14/2023 06/19/2023 Overview: History: 62 year old male with 4-7mm tapered non-reinforced above knee popliteal to tp trunk bypass with occlusion after 6 months requiring lysis presents for bypass revision. Assessment: Right leg incision clean, dry and intact, surgical glue intact 2+ PT pulses bilaterally Plan: 05/14/2023 Redo right above knee popliteal to posterior tibial bypass with reversed right saphenous vein. Ligation of prior fem-tp trunk bypass, right saphenous vein harvest. Completion angiogram. ASA, statin Heparin gtt -> plan to transition to therapeutic Xarelto (20 mg daily with dinner) at discharge instead of 2.5 mg BID Follow up in one month with right leg arterial duplex and SAVANNA. Postoperative pain 05/14/2023 Overview: History: s/p vascular surgery Assessment: pain controlled Plan: Schedule Tylenol with Oxycodone prn Refractory postoperative hypotension 05/14/2023 05/17/2023 Acute blood loss anemia 05/14/202305/04 Overview: History: s/p vascular surgery, EBL 400 cc Transfused 2 unit PRBC, 1 unit platelets, 1 unit FFP and 1 unit Cryo post-op Assessment: H/H = 7.7/23.6 Plan: Trend CBC Critical limb ischemia of ri ght lower extremity 04/28/2023 04/30/2023 Overview: History: 62 year old male who presents with occluded right leg bypass x3 days, motor/sensory intact with chornic neuropathy 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 500 units of heparin / hr (do not titrate) infused through the sheath. Lay flat. Reverse trendelenburg is OK at 30 degrees. Clear liquids today. NPO after midnight tonight. Ancef 2g every 8 hours while catheter/sheath is still in place. 100 cc / hr NS or LR via peripheral IV. Strict urine output measurements (Smith catheter). Q1 hour neurologic checks. If concern for stroke, call staff immediately, stop tPA and remove the catheter, and obtain stat CT head non-contrast. Do not remove the sheath. Q1 hour vascular checks to the lower extremities. Check labs immediately post-op, and every 6 hours: PT/INR, PTT, Fibrinogen, CBC. If Fibrinogen is <200: -call staff immediately. -Halve the tPA rate to 0.50 mg / hr. -Re-check fibrinogen in 1 hour. 11. If Fibrinogen is < 150: -call staff immediately. -Halve the tPA rate to 0.25 mg / hr. -Transfuse 1 unit of cryoprecipitate. -Recheck Fibrinogen 1 hour after transfusion of cryo. -If still <150, call staff immediately. 12. Do not remove any of the dressings, even if saturated with blood. Just reinforce with more dressings. Plan for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 Episode Visit Count: 1 Therapist That Will Accept/Oversee The Plan Of Care: Giovani Triplett Start of Care Date: 02/23/23 Onset Date: 12/28/22 Plan of Care Certification Date: 02/23/23 Next Certification Due Date: 04/25/23 Patient Identified by Name and Date of : Yes REHABILITATION AND SPORTS THERAPY PHYSICAL THERAPY EVALUATION PLAN OF CARE: Assessment: Choco Maldonado presents with chief complaint of RLE pain and weakness that interfereswith rising from a chair, standing, walking, bending, heavy exertion, stair negotiation, lifting, physical activities, working . He presents with impairments in ADL's, overall function, range of motion, soft tissue healing, strength, symptom management, and tissue tenderness. PROMIS (Patient-Reported Outcomes Measurement Information System) scores were reviewed and all domains identified as a rehabilitation concern. Prognosis for therapy is Fair due to: clinical presentation, multiple co- morbidities, limited tolerance to activity, occupational demands . He will benefit from skilled therapy se rvices to meet the goals established for this plan of care as noted below. Goals for Episode of Care: created on 02/23/23 through 04/26/23 [place] in home exercise program. Patient will decrease pain rating by 2 points to meet minimal clinical important difference for numeric pain rating scale. Patient will demonstrate increase in RLE strength to 5/5 during manual muscle testing in order to improve function for prior functional tasks. Patient will increase flexibility of R knee and ankle to WNL to improve mechanics and decrease pain. Perform walking, standing, and ADLs with decreased report of symptoms/pain in 6- 8 weeks. Planned Interventions, Frequency, and Duration: Current Frequency: 2x/week Duration: 12 weeks Total Number of Visits Planned: 24 Planned Treatment Interventions: Therapeutic exercise (99550), Neuromuscular re- education (09548), Manual therapy (20212), Therapeutic activities (27685), Self- alf management (85403), Patient/Family/Caregiver Education, Body Mechanics Training PLAN FOR NEXT VISIT: may try desensitization technique for leg pain Patient demonstrates good understanding of plan of care and treatment. The above goals and plan of care were discussed and agreed upon by patient/family. SUBJECTIVE: RLE pain remains after a popliteal/femoral artery bypass when it was found he had a complete occlusion in the pop artery when spending time in [place] this past summer. Sharp, burning pain in the redman and ankle, and then numbness around the knee still. Weakness from the knee down. Getting bad cramps in the right calf multiple times a day. Climbing stairs, balance (especially while showering), heavy exertion, lifting, pulling, etc all are very difficult too. Is using a cane on ocassion due to the leg weakness. Functional Limitations: rising from a chair, standing, walking, bending, heavy exertion, stair negotiation, lifting, physical activities, working Prior Level of Function: Independent without limitations Intake Information: Prescription present Previous Treatment: Surgery Pain: Pain Pain Level: 6 Pain Location: Leg - Right Description: Sore, Shooting, Sharp Frequency: Intermittent Post Treatment Pain Post Treatment Pain Level: No Change PROMIS Scales Higher is Better 02/22/2023 06/29/2022 10/06/2021 Phys Func - Score 39 (moderate dysfunction) 46 (within normal limits) 44 (mild dysfunction) Phys Func - Percentile 14 % 34 % 27 % Self-Eff Symptom - Score 38 (Low) 48 (Average) 40 (Average) Self-Eff Symptom - Percentile 12 % 42 % 16 % T-scores: mean of general population = 50. 5 points is clinically meaningfully difference Percentiles provide an indication of how the patient's score ranks in relation to the general population. Higher percentile rankings indicate better function/quality of life. 50th percentile is the average of the general population and indicates half of respondents had a worse score. OBJECTIVE MEASURES WITH LEVEL OF FUNCTION: LE AROM R LE AROM: moderate limitations in ankle and knee ROM LE Strength R LE Strength: 5/5 hip, 4/5 knee, 3+/5 ankle grossly Education: Education Learning/educational needs: Home exercise program, Plan of Care, Changes in Plan of Care, Gait Training, Body Mechanics TREATMENT: PT Treatment Interventions: Therapeutic Exercise, Self-Penitentiary Management Evaluation Therapeutic Exercise: 1: *Quad sets with knee extension 3x10, 5 sec holds 2: *Wall and sitting gastroc stretch 3x30 sec each 3: *Wall and soleus stretch 3x30 sec each 4: *Heel raises 3x10 5: Discussed not increasing pain, only going to tolerance Skilled Intervention: Patient was educated in proper exercise technique and purpose for exercises. Skilled judgment was used in selection of appropriate interventions. Provided written instruction for home exercise program to facilitate proper performance and compliance. Correct performance of therapeutic exercises was facilitated with verbal, visual, and tactile cuing. Self-Penitentiary Management: 1: Discussed plan of care, multiple factors causing pain, treatment options, and answered all pt's questions Skilled Intervention: Skilled judgment in the selection of proper modification for activity of daily living/home management based on clinical presentation, deficits, and needs. Reviewed patient specific diagnosis in relation to activities of daily living/home management. Activity progression based on professional judgement. Billing * Evaluation Low Complexity: 1 Unit Therapeutic Exercise Treatment Minutes: 18 Self-Care/Home Management Treatment Minutes: 8 Skilled Treatment Time Minutes (timed and untimed codes): 41 Total Session Time (minutes): 41 Session Start Time : 1502 Session Stop Time : 1543 Giovani Triplett PT documented in this encounter[facility]10-25-[facility]23 Instructions* Patient Instructions* Linda Parish MD - 02/24/2023 2:42 PM EDT Guidelines for low cholesterol, low triglyceride diets FOODS TO USE MEATS/FISH - Choose lean meats (chicken, turkey, veal, and nonfatty cuts of beef with excess fat trimmed; one serving = 3 oz. of cooked meat). Also, fresh or frozen fish, canned fish packed in water,and shellfish (lobster, crab, shrimp, oysters). Limit use to no more than one serving of one of these per week. Shellfish are high in cholesterol but low in saturated fat and should be used sparingly. Meats and fish should be broiled (maldonado or oven) or baked on a rack. EGGS - Egg substitutes and egg whites (use freely). Egg yolks (limit two per week). FRUITS - Eat three servings of fresh fruit per day (1 serving = 1/2 cup). Be sure to have at least one citrus fruit daily. Frozen or canned fruit with no sugar or syrup added may be used. VEGETABLES - Most vegetables are not limited (see Foods to Avoid). One dark green (string beans, escarole) or one deep yellow (squash) vegetable is recommended daily. Cauliflower, broccoli, and celery, as well as potato skins, are recommended for their fiber content (fiber is associated with cholesterol reduction). It is preferable to steam vegetables, but they may be boiled, strained, or braisedwith polyunsaturated vegetable oil (see below). BEANS - Dried peas or beans (1 serving = 1/2 cup) may be used as a bread substitute. NUTS - Almonds, walnuts, and peanuts may be used sparingly (1 serving = 1 tablespoon). Use pumpkin,sesame, or sunflower seeds. BREADS/GRAINS - One roll or one slice of whole grain or enriched bread may be used, or three soda crackers or four pieces of suzy toast as a substitute. Spaghetti, rice or noodles (1/2 cup) or 1/2 large ear of corn may be used as a bread substitute. In preparing these foods, do not use butter or shortening; use soft margarine. Also use egg and sugar substitutes. Choose high fiber grains, such asoats and whole wheat. CEREALS - Use 1/2 cup of hot cereal or 1/4 cup of cold cereal per day. Add a sugar substitute if desired, with 99% fat-free or skim milk. MILK PRODUCTS - Always use 99% fat-free or skim milk, dairy products such as low-fat cheeses (yan's, uncreamed diet cottage), low-fat yogurt, and powdered skim milk. FATS/OILS - Use soft (not stick) margarine, vegetable oils that are high in polyunsaturated fats (such as safflower, sunflower, soybean, corn, and cottonseed). Always refrigerate meat drippings to harden the fat and remove it before preparing gravies. DESSERTS/SNACKS - Limit to two servings per day; substitute each serving for a bread/cereal serving; ice milk or water sherbet (1/4 cup); unflavored gelatin or gelatin flavored with sugar substitute (1/2 cup); pudding prepared with skim milk (1/2 cup); egg white souffles; unbuttered popcorn (1 1/2 cups). Substitute carob for chocolate. BEVERAGES - Fresh fruit juices (limit to 4 oz. per day); black coffee; plain or herbal teas; soft drinks with sugar substitutes; club soda, preferably salt- free; cocoa made with skim milk or nonfat dried milk and water (sugar substitute added, if desired); clear broth. Alcohol - limit to two servings per day (see Foods to Avoid). MISCELLANEOUS - You may use the following freely: vinegar; spices; herbs; nonfat bouillon; mustard;Worcestershire sauce; soy sauce; flavoring essence. FOODS TO AVOID MEATS/FISH - Marbled beef, pork, richards, sausage and other pork products; fatty fowl (duck, goose); skin and fat of turkey and chicken; processed meats; luncheon meats (salami, bologna); frankfurters and fast food hambergers (they are loaded with fat); organ meats (kidneys, liver); canned fish packed in oil. EGGS - Limit egg yolks to two per week. FRUITS - Coconuts (rich in saturated fat) VEGETABLES - Avoid avocados. Starchy vegetables (potatoes, corn calix beans, dried peas, beans) may be used only if they are substitutes for a serving of bread or cereal. (Baked potato skin, however, is desirable for its fiber content). BEANS - Commercial baked beans with sugar and/or pork added. NUTS - Avoid nuts. Limit peanuts and walnuts to one tablespoonful per day. BREADS/GRAINS - Any baked goods with shortening and/or sugar. Commercial mixes with dried eggs and whole milk. Avoid sweet rolls, doughnuts, breakfast pastries (Armenian), and sweetened packaged cereals (the added sugar converts readily to triglycerides). MILK PRODUCTS - Whole milk and whole-milk packaged goods; cream; ice cream; whole-milk puddings, yogurt, or cheeses; nondairy cream substitutes. FATS/OILS - Butter, lard, animal fats, richards drippings, gravies, cream sauces, as well as palm and coconut oils. All these are high in saturated fats. Examine labels on cholesterol free products for hydrogenated fats. (These are oils that have been hardened into solids and in the process have become saturated.) DESSERTS/SNACKS - Fried snack foods like potato chips; chocolate; candies in general; jams, jellies, syrups; whole-milk puddings; ice cream and milk sherberts; hydrogenatd peanut butter. BEVERAGES - Sugared fruit juices and soft drinks; cocoa made with whole milk and/or sugar. When using alcohol (1 oz. liquor, 5 oz. beer, or 2 1/2 oz. dry table wine per serving), one serving must be substituted for one bread or cereal serving (limit two servings of alcohol per day). SPECIAL NOTES 1. Remember that even nonlimited foods should be used in moderation. 2. While on a cholesterol-lowering diet, be sure to avoid animal fats and marbled meats. 3. While on a triglyceride-lowering diet, be sure to avoid sweets and to control the amount of carbohydrates you eat (starchy foods such as flower, bread, or potatoes). 4. Buy a good low-fat cookbook, such as the one published by the [place] [employer]. 5. Consult your physician if you have any questions. documented in this encounterCh[facility]10-25-2023 History of Present illness Narrative* Linda Parish MD - 02/24/2023 2:00 PM EDT Patient presents with: Follow Up HPI: Patient presents today for office visit for follow up. Swelling in leg is better. Still with numbness in areas. Taking Xarelto with no issues. Had injection with Dr Calvert. Helped back pain but not leg. Increased gabapentin to 300mg twice a day. Does make him tired but has the 100mg still if the 300mg is too much. Headaches have been better. No bleeding or bruising issues. Is off the prozac which we used primarily for his raynaud's. Did not tolerated diltiazem. Having issues again with his hands in cold weather. Feeling worse again. Discussed smoking. Needs to stop smoking to have his colostomy reversed. Discussed low cholesterol diet. Component Latest Ref Rng & Units 02/22/2023 WBC 3.70 - 11.00 k/uL 12.10 (H) RBC 4.20 - 6.00 m/uL 4.81 Hemoglobin 13.0 - 17.0 g/dL 13.6 Hematocrit 39.0 - 51.0 % 42.0 MCV 80.0 - 100.0 fL 87.3 MCH 26.0 - 34.0 pg 28.3 MCHC 30.5 - 36.0 g/dL 32.4 RDW-CV 11.5 - 15.0 % 18.1 (H) Platelet Count 150 - 400 k/uL 373 MPV 9.0 - 12.7 fL 9.4 Neut% % 59.0 Abs Neut (ANC) 1.45 - 7.50 k/uL 7.13 Lymph% % 33.3 Abs Lymph 1.00 - 4.00 k/uL 4.03 (H) Lenoir% % 4.2 Abs Lenoir <0.87 k/uL 0.51 Eosin% % 2.3 Abs Eosin <0.46 k/uL 0.28 Baso% % 0.7 Abs Baso <0.11 k/uL 0.09 Immature Gran % % 0.5 IMMATURE GRANS (ABS) <0.10 k/uL 0.06 NRBC /100 WBC 0.0 Absolute nRBC <0.01 k/uL <0.01 DTYPE Auto Cholesterol, Total <200 mg/dL 210 (H) Triglyceride <150 mg/dL 193 (H) HDL Cholesterol >39 mg/dL 43 Non HDL Cholesterol <130 mg/dL 167 (H) Fasting Time hrs 10 VLDL Cholesterol <30 mg/dL 39 (H) TC:HDL Ratio <5.10 4.88 LDL Cholesterol <100 mg/dL 128 (H) LDL:HDL Ratio <2.54 2.98 (H) Albumin 3.9 - 4.9 g/dL 4.5 Bilirubin, Total 0.2 - 1.3 mg/dL 0.6 Bilirubin, Conjug <0.2 mg/dL <0.2 Alkaline Phosphatase 38 - 113 U/L 111 AST 14 - 40 U/L 23 ALT 10 - 54 U/L 17 Protein, Total 6.3 - 8.0 g/dL 7.5 MEDICATIONS: Current Outpatient Medications Medication Sig gabapentin (NEURONTIN) 300 mg capsule Take 1 capsule by mouth every 12 hours. losartan (COZAAR) 25 mg tablet Take 1 tablet by mouth once daily. pantoprazole DR (PROTONIX) 40 mg tablet Take 1 tablet by mouth daily before breakfast. Take on empty stomach, 1/2 hr before meal. atorvastatin (LIPITOR) 40 mg tablet Take 1 tablet by mouth daily at bedtime. aspirin 81 mg chewable tablet Take 81 mg by mouth once daily. rivaroxaban (XARELTO) 2.5 mg tablet Take 1 tablet by mouth twice daily. hydrOXYzine pamoate (VISTARIL) 25 mg capsule Take 1 capsule by mouth three times daily as needed for itching/rash. amitriptyline (ELAVIL) 25 mg tablet Take 1 tablet by mouth daily at bedtime. fremanezumab-vfrm (AJOVY AUTOINJECTOR) 225 mg/1.5 mL auto-injector Ajovy 225 mg/1.5 mL subcutaneousauto-injector Inject 1.5 mL subcutaneously once a month gabapentin (NEURONTIN) 100 mg capsule TAKE 1 CAPSULE BY MOUTH THREE TIMES DAILY FOR 28 DAYS TREMFYA 100 mg/mL AutoInjector rimegepant (NURTEC ODT) 75 mg disintegrating tablet Nurtec ODT 75 mg disintegrating tablet Take 1 tab under tongue at onset of migraine. Max 1 in 24 hours. acetaminophen (TYLENOL) 325 mg tablet Take 650 mg by mouth every 6 hours as needed. No current facility-administered medications for this visit. ALLERGIES: ALLERGIES Allergen Reactions Verapamil Rash PAST MEDICAL HISTORY Diagnosis Date Acute diverticulitis Aortic insufficiency Bursitis of elbow left Coronary artery disease mild nonobstructive Diverticulitis Migraines PAD (peripheral artery disease) (HCC) Palpitations Pinched nerve 11/04/2020 low back Psoriasis Raynaud disease SVT (supraventricular tachycardia) Tobacco abuse PAST SURGICAL HISTORY Procedure Laterality Date COLONOSCOPY FLX DX W/COLLJ SPEC WHEN PFRMD 05/23/2014 Colonoscopy COLONOSCOPY FLX DX W/COLLJ SPEC WHEN PFRMD 09/24/2017 Colonoscopy COLONOSCOPY FLX DX W/COLLJ SPEC WHEN PFRMD 04/16/2021 ESOPHAGOGASTRODUODENOSCOPY TRANSORAL DIAGNOSTIC 05/23/2014 EGD ESOPHAGOGASTRODUODENOSCOPY TRANSORAL DIAGNOSTIC 08/15/2014 EGD HEMORRHOIDECTOMY INT & XTRNL 2/> COLUMN/FAHEEM 10/01/2017 left posterior PAST SURGICAL HISTORY OF 2008 Pain injections lumbar PAST SURGICAL HISTORY OF 08/03/2022 colostomy PAST SURGICAL HISTORY OF Right 12/2022 right popliteal to tibioperoneal trunk bypass RT/LT HEART CATHETERS 08/09/2020 [facility] FAMILY HISTORY Problem Relation Age of Onset Breast Cancer Mother Diabetes Father Heart Father other (Raynauds) Daughter other (Raynauds) Son Diabetes Maternal Grandfather Social History Tobacco Use Smoking status: Every Day Packs/day: 1.00 Years: 39.00 Additional pack years: 0.00 Total pack years: 39.00 Types: Cigarettes Start date: 02/11/1981 Smokeless tobacco: Never Vaping Use Vaping Use: Never used Substance Use Topics Alcohol use: Yes Comment: 3-4 drinks per day 5 days per week Drug use: No Reviewed current medications, allergies, past medical history, surgical history, family history andsocial history today. REVIEW OF SYSTEMS All other reviewed and negative other than HPI. HEALTH MAINTENANCE: Reviewed health maintenance issues today and recommended the following in detail. BP Controlled (<130/80) Never done Shingrix Vaccine(1 of 2) Never done RSV Vaccine(1 - 1-dose 60+ series) Never done Depression Assessment due on 05/03/2022 Influenza Vaccine(1) due on 01/01/2023 Covid-19 Vaccine( season) due on 01/01/2023 VITALS: BP 128/68 Pulse 73 Wt 81.6 kg (180 lb) SpO2 98% BMI 23.11 kg/m Last 4 Encounter Wt Readings: Date: Wt: 02/11/2023 82.7 kg (182 lb 6.4 oz) 01/11/2023 79.4 kg (175 lb) 10/27/2022 82.2 kg (181 lb 3.2 oz) 09/10/2022 77.1 kg (170 lb) PHYSICAL EXAMINATION: General appearance: Well appearing, alert, in no acute distress, well-hydrated, well nourished. Skin: Skin color, texture, turgor normal, no suspicious rashes or lesions Head: Normocephalic, no masses, lesions, tenderness or abnormalities Lungs: Lungs clear to auscultation. No wheezing, rhonchi, rales Heart: RRR without murmur, gallop, or rubs. No ectopy Abdomen: Normal abdominal exam, Abdomen soft, non-tender. Bowel sounds normal. No masses, organomegaly Extremities: No deformities, edema, skin discoloration, clubbing or cyanosis. Good capillary refill. Musculoskeletal: No joint swelling, deformity, or tenderness Peripheral pulses: Normal Affect flat ASSESSMENT/PLAN: 1. PVD (peripheral vascular disease) (HCC) - ICD9: 443.9, ICD10: I73.9 (primary diagnosis) - stay on meds. On anticoug as vascular has suggested. Continue follow up with them. 2. Encounter for immunization - ICD9: V03.89, ICD10: Z23 - INFLUENZA VACCINE, AGE 6 MO - 64 YR, QUADRIVALENT (AFLURIA, FLULAVAL, FLUZONE) 3. Migraine with aura, not intractable, without status migrainosus - ICD9: 346.00, ICD10: G43.109 - stable. 4. Hypnic jerks - ICD9: 307.49, ICD10: F51.8 - stable. 5. Primary hypertension - ICD9: 401.9, ICD10: I10 - Controlled - Continue current medications 6. Mixed hyperlipidemia - ICD9: 272.2, ICD10: E78.2 - follow progress. 7. Raynaud's phenomenon without gangrene - ICD9: 443.0, ICD10: I73.00 - reinstitute med which may also help with his moods. - FLUOXETINE 20 MG CAPSULE 8. Palpitations - ICD9: 785.1, ICD10: R00.2 - stable. 9. SVT (supraventricular tachycardia) - ICD9: 427.89, ICD10: I47.10 - stable. 10. Angina pectoris (HCC) - ICD9: 413.9, ICD10: I20.9 - no current issues. 11. Polycythemia, secondary - ICD9: 289.0, ICD10: D75.1 - per heme onc 12. Alcohol dependence, daily use (HCC) - ICD9: 303.91, ICD10: F10.20 - work on decreasing. 13. Colostomy in place (HCC) - ICD9: V44.3, ICD10: Z93.3 - functioning well. 14. Anxiety with depression - ICD9: 300.4, ICD10: F41.8 - FLUOXETINE 20 MG CAPSULE 15. Tobacco use - ICD9: 305.1, ICD10: Z72.0 - Cessation encouraged. - Physiologic and physical aspects of tobacco addiction as well as strategies for quitting were discussed. - Counseling was given focusing on the harmful effects of this addiction especially given the patient's medical condition(s) which will be worsened because of the chemicals in tobacco. - VARENICLINE 1 MG TABLET Linda Parish RTO in four weeks and prn. documented in this encounterCh[facility]10-15-[facility] History of Present illness Narrative* Bruno Parra MD - 02/14/2023 8:18 PM EDT FOLLOW UP VISIT NAME: Choco Georges [facility] NO.: [id number] DATE OF SERVICE: February 11, 2023 : 1960 REFERRING PHYSICIAN: Linda Parish MD Choco is a patient I am following for complicated diverticulitis. The patient is a 61 year old male with a recent history of complicated diverticulitis requiring emergency surgical intervention with resection and colostomy in [facility]. The patient has a known history of diverticulosis and has had what appears to have been more mild episodes of diverticulitis/left lower quadrant pain in the past. She underwent colonoscopy by Dr. Zamudio on April 16, 2021 which demonstrated a small sigmoid polyp that had been removed. I performed c olonoscopy in 2018 which also demonstrated some smaller polyps. This was for hematochezia. He had colonoscopy in [address] Davis which had multiple small rectal polyps removed also for hematochezia as an indication. Images from those endoscopies demonstrated few small diverticula around specifically mentioned. The patient was seen on July 24, 2022 and primary care he noted lower midline abdominal discomfort. He was given a tentative diagnosis of diverticulitis and prescribed Augmentin. 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 CT scan was obtained. He was sent home from the emergency department but apparently the CT scan was reviewed he was told to come back to the hospital. He was admitted and underwent emergent surgery with sigmoid resection and end colostomy. He was discharged to home on August 06. He presented to our office for evaluation. Records and CT scan images have been requested from his operating hospital The patient is being seen by me at the request of Dr. Linda Parish MD for my opinion and advice regarding follow-up for emergent diverticulitis surgery. He notes that overall his stool is forming up. He notes some discomfort in his lower to mid abdominal area. He especially notes difficulty falling asleep at night due to an annoying or gnawing discomfort. He also notes irritation in the peristomal area. He has not received his stoma bags from his supply company but he and his ordered some from [employer]. Appetite has been fine. Returns for follow-up. He notes looser stools in the stoma bag recently. He notes a rash and irritation around his skin at his stoma site. He notes that this itches terribly and he cannot help but scratch it. He notes that his psoriasis has been active all over his body particularly his arms and back. He was prescribed a medicine that he has not yet started taking. He notes significant improvement in the irritation since the last office visit he did bring a new stoma bag. He states he is currently having no difficulties with the stoma bag. Showed me a picture of the stoma that currently appears to have matured and healed appropriately. When the patient was vacationing in [place] he noted pain in his leg which persisted for a few days. He presented to the hospital in [place] where he underwent a right femoral-popliteal bypass for acute limb ischemia. The patient has continued neuropathic pain in the limb. He also continues to smoke. He was seen by vascular surgery. He will continue to undergo local wound care and is recommended to start physical therapy to assist with mobility and walking. He is currently on Xarelto. VITALS: Blood pressure 130/68, pulse 76, temperature 36.3 C (97.4 F), height 188 cm (6' 2), xhistf70.7 kg (182 lb 6.4 oz), SpO2 99 %. On examination, the stoma bag was removed. There was minimal peristomal irritation. The abdominal incisions are clean dry and intact. Right lower extremity. He has healing wounds from his femoropopliteal bypass. His capillary refill is on the order of 2- 3 seconds. Assessment IMPRESSION: Peristomal irritation, likely both moisture irritation and psoriasis. PLAN: If the patient notes any problems or signs of worsening infection, the patient should contact me immediately. I recommend the patient take his psoriasis medication. I recommended stoma powder to try to dry the area up under the stoma bag and allow it to air dry as much as possible and minimize scratching of the site. I discussed with the patient that he would need to stop smoking prior to planned colostomy takedown. Timing would also be dependent upon his need for continued anticoagulation. Diagnoses: No diagnosis found. Return to Clinic: The patient is instructed to follow-up with me in 1 month. Bruno Parra MD documented in this encounterChillic[facility]10-11-2023 History of Present illness Narrative* Rosi Alonso, DO - 02/10/2023 12:28 PM EDT Images from the original note were not included. [facility] [place] DEPARTMENT OF VASCULAR SURGERY OUTPATIENT VISIT DATE February 10, 2023 OUTPATIENT VISIT TYPE ESTABLISHED SERVICE DATE: 02/10/2023 SERVICE TIME: 12:33 PM PRIMARY CARE PHYSICIAN: Linda Parish MD HISTORY OF PRESENT ILLNESS: Mr. Maldonado is a 62 year old male who presents today for a vascular surgery follow-up visit after right femoral popliteal bypass in [place] for acute limb ischemia. He continues to have neuropathic pain. He is following up with pain management in [place] with plans for back injections. PAST MEDICAL HISTORY Diagnosis Date Acute diverticulitis Aortic insufficiency Bursitis of elbow left Coronary artery disease mild nonobstructive Diverticulitis Migraines PAD (peripheral artery disease) (HCC) Palpitations Pinched nerve 11/04/2020 low back Psoriasis Raynaud disease SVT (supraventricular tachycardia) Tobacco abuse PAST SURGICAL HISTORY Procedure Laterality Date COLONOSCOPY FLX DX W/COLLJ SPEC WHEN PFRMD 05/23/2014 Colonoscopy COLONOSCOPY FLX DX W/COLLJ SPEC WHEN PFRMD 09/24/2017 Colonoscopy COLONOSCOPY FLX DX W/COLLJ SPEC WHEN PFRMD 04/16/2021 ESOPHAGOGASTRODUODENOSCOPY TRANSORAL DIAGNOSTIC 05/23/2014 EGD ESOPHAGOGASTRODUODENOSCOPY TRANSORAL DIAGNOSTIC 08/15/2014 EGD HEMORRHOIDECTOMY INT & XTRNL 2/> COLUMN/FAHEEM 10/01/2017 left posterior PAST SURGICAL HISTORY OF 2008 Pain injections lumbar PAST SURGICAL HISTORY OF 08/03/2022 colostomy PAST SURGICAL HISTORY OF Right 12/2022 right popliteal to tibioperoneal trunk bypass RT/LT HEART CATHETERS 08/09/2020 [facility] SOCIAL HISTORY Social History Tobacco Use Smoking status: Every Day Packs/day: 1.00 Years: 39.00 Additional pack years: 0.00 Total pack years: 39.00 Types: Cigarettes Start date: 02/11/1981 Smokeless tobacco: Never Vaping Use Vaping Use: Never used Substance Use Topics Alcohol use: Yes Comment: 3-4 drinks per day 5 days per week Drug use: No MEDICATIONS: acetaminophen (TYLENOL) 325 mg tablet Take 650 mg by mouth every 6 hours as needed. amitriptyline (ELAVIL) 25 mg tablet Take 1 tablet by mouth daily at bedtime. aspirin 81 mg chewable tablet Take 81 mg by mouth once daily. atorvastatin (LIPITOR) 40 mg tablet Take 1 tablet by mouth daily at bedtime. fremanezumab-vfrm (AJOVY AUTOINJECTOR) 225 mg/1.5 mL auto-injector Ajovy 225 mg/1.5 mL subcutaneousauto-injector Inject 1.5 mL subcutaneously once a month gabapentin (NEURONTIN) 100 mg capsule TAKE 1 CAPSULE BY MOUTH THREE TIMES DAILY FOR 28 DAYS hydrOXYzine pamoate (VISTARIL) 25 mg capsule Take 1 capsule by mouth three times daily as needed for itching/rash. losartan (COZAAR) 25 mg tablet Take 1 tablet by mouth once daily. pantoprazole DR (PROTONIX) 40 mg tablet Take 1 tablet by mouth daily before breakfast. Take on empty stomach, 1/2 hr before meal. rimegepant (NURTEC ODT) 75 mg disintegrating tablet Nurtec ODT 75 mg disintegrating tablet Take 1 tab under tongue at onset of migraine. Max 1 in 24 hours. rivaroxaban (XARELTO) 2.5 mg tablet Take 1 tablet by mouth twice daily. TREMFYA 100 mg/mL AutoInjector ALLERGIES: ALLERGIES Allergen Reactions Verapamil Rash PHYSICAL EXAM: BP 129/71 (BP Site: Right Arm, BP Position: Sitting, BP Cuff Size: Regular Adult) Pulse 66 [id number]% Gen- no distress Ext- healing incisions, two small scabs noted along incisions. No drainage, improvement in edema, cap refill 4 seconds, palpable pt on right Diagnostic tests reviewed for today's visit: Most recent labs Most recent imaging IMPRESSION: Mr. Maldonado is a 62 year old male with peripheral arterial disease . PLAN and RECOMMENDATIONS: Agree with pain management Continue local incisional care Continue walking as tolerated Recommend PT to assist with walking/mobility SIGNATURE: Rosi Alonso DO PATIENT NAME: Choco Maldonado DATE: February 10, 2023 TIME: 12:33 PM documented in this encounterCh[facility]10-10-2023 Miscellaneous Notes* Telephone Encounter - Ambreen Cruz - 02/09/2023 10:21 AM EDT Patient has been identified by name and date of : Yes Last office visit in this department: 01/11/2023 RX INSTRUCTIONS: Patient aware RX will be sent to pharmacy. No need to notify patient. Patient phones requesting refills as follows: Requested Prescriptions Pending Prescriptions Disp Refills losartan (COZAAR) 25 mg tablet 30 tablet 5 Sig: Take 1 tablet by mouth once daily. Please review and advise. Ambreen Cruz documented in this encounterChillicothe [facility]10-02-2023 Miscellaneous Notes* Telephone Encounter - Neelam Rodriguez - 02/01/2023 12:18 PM EDT Spoke with patient and scheduled. Neelam Rodriguez * Telephone Encounter - Keya Hayden RN - 02/01/2023 11:55 AM EDT Spoke to patient today about his phlebotomy appointment. He recently just had surgery to his right leg d/t blood clot. Patient is now on Xarelto BID. Appointment for phlebotomy is cancelled today because he still needs an OV with Dr. Montalvo and labs. Patient updated about the plan. Please schedule patient for labs and OV with Dr. Montalvo. documented in this encounterChillic[facility]09-13-2023 Miscellaneous Notes* Telephone Encounter - Marcia Alves LPN - 01/13/2023 12:19 PM EDT Please file atorvastatin refill. Understands instructions. Has a follow up with gen surg scheduled will keep that visit. * Telephone Encounter - Linda Parish MD - 01/13/2023 11:39 AM EDT Ok. If black stools resume, call immediately or worsening symptoms. Add new stomach med. Recheck cbc on Wednesday. Follow up with Dr. Parra for black stools. Make sure has used peptobismol since that can make dark stools. * Telephone Encounter - Marcia Alves LPN - 01/13/2023 11:28 AM EDT Bowels were loose and darker. Today seems not as black. No stomach pain. Admits to maybe a little bloating type of feeling. He was thinking was a medication issue? No issues with eating. * Telephone Encounter - Linda Parish MD - 01/13/2023 9:32 AM EDT His blood counts are ok for him. However, he is showing some blood in the stool. How are bowels and stomach? documented in this encounterChillicothe [facility]09-13-2023 History of Present illness Narrative* Rosi Alonso, DO - 01/13/2023 9:30 AM EDT Images from the original note were not included. [facility] [place] DEPARTMENT OF VASCULAR SURGERY OUTPATIENT VISIT DATE January 13, 2023 OUTPATIENT VISIT TYPE CONSULTATION SERVICE DATE: 01/13/2023 SERVICE TIME: 9:30 AM PRIMARY CARE PHYSICIAN: Linda Parish MD REFERRING PROVIDER: Linda Parish [address] [facility] [id number] Consult requested for an opinion regarding the evaluation and treatment of the above. My final impression and recommendations will be communicated back to the requesting physician by way of the shared medical record or letter via US mail. CHIEF COMPLAINT: Patient presents with: New Patient History of Present Illness: Patient is a 62 year old White male presenting for consultation, evaluation and possible treatment of peripheral arterial disease. He was traveling in [place] and develop limb ischemia with leg pain.He went to ER and CT demonstrated right distal SFA and popliteal occlusion. He underwent right popliteal to tibioperoneal trunk bypass 4x7mm ringed Goretex on 12/28/22. He was started on xarelto 2.5mgrecently upon returning to [place]. He is having intermittent shooting burning pain along pretibial region and medial upper thigh. PAIN ASSESSMENT: PAIN EVALUATION No data found in the last 1 encounters. Duration of Symptoms: Less Than 6 Weeks PREVIOUS TESTS: None CARDIOVASCULAR RISK FACTORS: Prior Smoking PAST MEDICAL HISTORY Diagnosis Date Acute diverticulitis Aortic insufficiency Bursitis of elbow left Coronary artery disease mild nonobstructive Diverticulitis Migraines Palpitations Pinched nerve 11/04/2020 low back Psoriasis Raynaud disease SVT (supraventricular tachycardia) (HCC) Tobacco abuse PAST SURGICAL HISTORY Procedure Laterality Date COLONOSCOPY FLX DX W/COLLJ SPEC WHEN PFRMD 05/23/2014 Colonoscopy COLONOSCOPY FLX DX W/COLLJ SPEC WHEN PFRMD 09/24/2017 Colonoscopy COLONOSCOPY FLX DX W/COLLJ SPEC WHEN PFRMD 04/16/2021 ESOPHAGOGASTRODUODENOSCOPY TRANSORAL DIAGNOSTIC 05/23/2014 EGD ESOPHAGOGASTRODUODENOSCOPY TRANSORAL DIAGNOSTIC 08/15/2014 EGD HEMORRHOIDECTOMY INT & XTRNL 2/> COLUMN/FAHEEM 10/01/2017 left posterior PAST SURGICAL HISTORY OF 2008 Pain injections lumbar PAST SURGICAL HISTORY OF 08/03/2022 colostomy RT/LT HEART CATHETERS 08/09/2020 [facility] SOCIAL HISTORY: Social History Tobacco Use Smoking status: Every Day Packs/day: 1.00 Years: 39.00 Additional pack years: 0.00 Total pack years: 39.00 Types: Cigarettes Start date: 02/11/1981 Smokeless tobacco: Never Vaping Use Vaping Use: Never used Substance Use Topics Alcohol use: Yes Comment: 3-4 drinks per day 5 days per week Drug use: No FAMILY HISTORY Problem Relation Age of Onset Breast Cancer Mother Diabetes Father Heart Father other (Raynauds) Daughter other (Raynauds) Son Diabetes Maternal Grandfather MEDICATIONS: aspirin 81 mg chewable tablet^Take 81 mg by mouth once daily.^Disp: ^Rfl: atorvastatin (LIPITOR) 40 mg tablet^Take 40 mg by mouth daily at bedtime.^Disp: ^Rfl: rivaroxaban (XARELTO) 2.5 mg tablet^Take 1 tablet by mouth twice daily.^Disp: 60 tablet^Rfl: 5 clopidogrel (PLAVIX) 75 mg tablet^Take 1 tablet by mouth once daily. Until xarelto is started.^Disp: 30 tablet^Rfl: 0 TREMFYA 100 mg/mL AutoInjector^^Disp: ^Rfl: hydrOXYzine pamoate (VISTARIL) 25 mg capsule^Take 1 capsule by mouth three times daily as needed for itching/rash.^Disp: 30 capsule^Rfl: 0 amitriptyline (ELAVIL) 25 mg tablet^Take 1 tablet by mouth daily at bedtime.^Disp: ^Rfl: losartan (COZAAR) 25 mg tablet^Take 1 tablet by mouth once daily.^Disp: 30 tablet^Rfl: 5 fremanezumab-vfrm (AJOVY AUTOINJECTOR) 225 mg/1.5 mL auto-injector^Ajovy 225 mg/1.5 mL subcutaneousauto-injector Inject 1.5 mL subcutaneously once a month^Disp: ^Rfl: rimegepant (NURTEC ODT) 75 mg disintegrating tablet^Nurtec ODT 75 mg disintegrating tablet Take 1 tab under tongue at onset of migraine. Max 1 in 24 hours.^Disp: ^Rfl: acetaminophen (TYLENOL) 325 mg tablet^Take 650 mg by mouth every 6 hours as needed.^Disp: ^Rfl: ALLERGIES: ALLERGIES Allergen Reactions Verapamil Rash REVIEW of SYSTEMS: Constitutional: No weight loss, malaise or fevers. HEENT: Negative for frequent or significant headaches, No changes in hearing or vision, no nose bleeds or other nasal problems Respiratory: Negative for cough, wheezing, or shortness of breath Cardiovascular: Negative for chest pain and palpitations and Positive for leg swelling Gatrointestinal: Negative for abdominal discomfort and ostomy stool has been dark, just was tested by pcp Genitourinary: No history of dysuria, frequency, or incontinence Musculoskeletal: Positive for back pain, joint swelling, and joint pain Endocrine: Positive for cold intolerance Hematology/Lymphatic: Positive for bruises easily Neurologic: No history or headaches, syncope, paralysis, seizures or tremors Integumentary: Positive for itching and around incisions PHYSICAL EXAM: VITALS: There were no vitals taken for this visit. General: Alert, oriented, cooperative, healthy appearance Integumentary: Normal color, no rash, no lesions. HEENT: EOM, pupils equal, round and reactive. Cardiovascular: Pulse regular. Lungs: No chest deformities or chest wall tenderness. Abdomen: Not examined Extremities: Right lower extremity pitting edema, incisions healed, skin glue in place, no significant erythema or ecchymosis, cap refill 3-4 seconds Neurological: AAOx3. Normal cognition and motor skills. Vascular: Right dp/pt dopplerable Diagnostic tests reviewed for today's visit: Most recent labs Most recent imaging IMPRESSION: Mr. Maldonado is a 62 year old male with history of acute limb ischemia s/p femoral tibial bypass withPTFE . PLAN and RECOMMENDATIONS: Agree with low dose xarelto, aspirin Applied light compression with tubigrip size F Walking as tolerated Follow up in 2 weeks with arterial duplex SIGNATURE: Rosi Alonso DO PATIENT NAME: Choco Maldonado DATE: January 13, 2023 TIME: 9:30 AM documented in this encounterChillicothe Hospital09-11-2023 History of Present illness Narrative* Linda Parish MD - 01/11/2023 1:55 PM EDT Patient presents with: Hospital F/U HPI: Patient presents today for office visit for follow up. Was in [place] visiting daughter and developed leg pain. Eventually went to ER and told clot plaquebuild up. Ended up with bypass to right leg. Surgery done 12/28/22. Has a follow up scheduled with vascular on 01/13/23. Leg is still painful and swollen. Done in [facility]. Had an acute SFA occulusion on the right. Sees Dr. Alonso soon. Cholesterol was slightly up. Begun on lipitor. Discussed stopping smoking. Leg is swollen. Is much better per his . No new warmth. No drainage. Elevation does help. White count is up but has polycythemia. Needs to reschedule hematology. No chest pain. Had some shortness of breath occasionally before is ok currently. No cough. Red flags for re-assessment reviewed with patient in detail. Seeing cardiology. Still has his ostomy. No stomach pain. Has noted darker stool recently. Not sure if it melanotic. No blood in toilet. MEDICATIONS: Current Outpatient Medications Medication Sig clopidogrel (PLAVIX) 75 mg tablet Take 75 mg by mouth once daily. aspirin 81 mg chewable tablet Take 81 mg by mouth once daily. atorvastatin (LIPITOR) 40 mg tablet Take 40 mg by mouth daily at bedtime. TREMFYA 100 mg/mL AutoInjector hydrOXYzine pamoate (VISTARIL) 25 mg capsule Take 1 capsule by mouth three times daily as needed for itching/rash. meloxicam (MOBIC) 15 mg tablet Take 1 tablet by mouth once daily. amitriptyline (ELAVIL) 25 mg tablet Take 1 tablet by mouth daily at bedtime. losartan (COZAAR) 25 mg tablet Take 1 tablet by mouth once daily. fremanezumab-vfrm (AJOVY AUTOINJECTOR) 225 mg/1.5 mL auto-injector Ajovy 225 mg/1.5 mL subcutaneousauto-injector Inject 1.5 mL subcutaneously once a month rimegepant (NURTEC ODT) 75 mg disintegrating tablet Nurtec ODT 75 mg disintegrating tablet Take 1 tab under tongue at onset of migraine. Max 1 in 24 hours. acetaminophen (TYLENOL) 325 mg tablet Take 650 mg by mouth every 6 hours as needed. ibuprofen (MOTRIN) 600 mg tablet Take 600 mg by mouth every 6 hours as needed. Current Facility-Administered Medications Medication Dose Route Frequency perflutren lipid microspheres 1.3 mL in NaCl (PF) 0.9% 10 mL injection (DEFINITY) INTRAVENOUS DIRECTED PRN sodium chloride 0.9 % (flush) 10 mL (BD POSIFLUSH) 10 mL INTRAVENOUS DIRECTED PRN ALLERGIES: ALLERGIES Allergen Reactions Verapamil Rash PAST MEDICAL HISTORY Diagnosis Date Acute diverticulitis Aortic insufficiency Bursitis of elbow left Coronary artery disease mild nonobstructive Diverticulitis Migraines Palpitations Pinched nerve 11/04/2020 low back Psoriasis Raynaud disease SVT (supraventricular tachycardia) ([facility]) Tobacco abuse PAST SURGICAL HISTORY Procedure Laterality Date COLONOSCOPY FLX DX W/COLLJ SPEC WHEN PFRMD 05/23/2014 Colonoscopy COLONOSCOPY FLX DX W/COLLJ SPEC WHEN PFRMD 09/24/2017 Colonoscopy COLONOSCOPY FLX DX W/COLLJ SPEC WHEN PFRMD 04/16/2021 ESOPHAGOGASTRODUODENOSCOPY TRANSORAL DIAGNOSTIC 05/23/2014 EGD ESOPHAGOGASTRODUODENOSCOPY TRANSORAL DIAGNOSTIC 08/15/2014 EGD HEMORRHOIDECTOMY INT & XTRNL 2/> COLUMN/FAHEEM 10/01/2017 left posterior PAST SURGICAL HISTORY OF 2008 Pain injections lumbar PAST SURGICAL HISTORY OF 08/03/2022 colostomy RT/LT HEART CATHETERS 08/09/2020 [facility] FAMILY HISTORY Problem Relation Age of Onset Breast Cancer Mother Diabetes Father Heart Father other (Raynauds) Daughter other (Raynauds) Son Diabetes Maternal Grandfather Social History Tobacco Use Smoking status: Every Day Packs/day: 1.00 Years: 39.00 Additional pack years: 0.00 Total pack years: 39.00 Types: Cigarettes Start date: 02/11/1981 Smokeless tobacco: Never Vaping Use Vaping Use: Never used Substance Use Topics Alcohol use: Yes Comment: 3-4 drinks per day 5 days per week Drug use: No Reviewed current medications, allergies, past medical history, surgical history, family history andsocial history today. REVIEW OF SYSTEMS All other reviewed and negative other than HPI. VITALS: BP 116/62 Pulse 80 Temp 37.2 C (99 F) (Tympanic) Wt 79.4 kg (175 lb) SpO2 100% BMI 22.47 kg/m Last 4 Encounter Wt Readings: Date: Wt: 01/11/2023 79.4 kg (175 lb) 10/27/2022 82.2 kg (181 lb 3.2 oz) 09/10/2022 77.1 kg (170 lb) 09/07/2022 78 kg (172 lb) PHYSICAL EXAMINATION: General appearance: Well appearing, alert, in no acute distress, well-hydrated, well nourished. Skin: some scabbing over the three incision. No redness or warmth. Head: Normocephalic, no masses, lesions, tenderness or abnormalities Lungs: Lungs clear to auscultation. No wheezing, rhonchi, rales Heart: RRR, murmur unchanged. Abdomen: Normal abdominal exam, Abdomen soft, non-tender. Bowel sounds normal. No masses, organomegaly Extremities: one plus edema which is better than it was. No warmth or tender. Musculoskeletal: No joint swelling, deformity, or tenderness Peripheral pulses: difficult to assess with swelling but toes are warm and pink. Normal cap refill Ostomy bag is currently clean. ASSESSMENT/PLAN: 1. Acute occlusion of superficial femoral artery due to thrombosis (HCC) - ICD9: 444.22, ICD10: I74.3 (primary diagnosis) - switch to xarelto.his insurance would not cover while in [place] They asked us to write on arrival. They wanted him on plavix until it started. See vascular. Rest and elevation. Red flags for re-assessment reviewed with patient in detail. Stop smoking. - XARELTO 2.5 MG TABLET 2. PVD (peripheral vascular disease) (HCC) - ICD9: 443.9, ICD10: I73.9 - XARELTO 2.5 MG TABLET 3. Aortic valve insufficiency, etiology of cardiac valve disease unspecified - ICD9: 424.1, ICD10: I35.1 - per cardiology 4. Mixed hyperlipidemia - ICD9: 272.2, ICD10: E78.2 - stay on lipitor. Check labs in six weeks. - HEPATIC FUNCTION PNL - LIPID PANEL BASIC 5. Primary hypertension - ICD9: 401.9, ICD10: I10 - well controlled. 6. Polycythemia, secondary - ICD9: 289.0, ICD10: D75.1 - check labs. - CBC + DIFF 7. Dark stools - ICD9: 792.1, ICD10: R19.5 - check lab today. - CBC + DIFF - FECAL OCCULT BLOOD TEST Linda Parish MD documented in this encounterChillicothe Hospital09-05-2023 Miscellaneous Notes* Telephone Encounter - Juana Henry - 01/05/2023 8:55 AM EDT Called patient at [phone], left vm to call our office Phizzlet message sent to the patient * Telephone Encounter - Martine Arora RN - 01/01/2023 4:13 PM EDT calling in requesting sooner appointment. Currently in [place], returning next week. Pt had surgeryon right leg d/t plaque buildup causing decreased blood flow. Recommended 1-2 week follow up, however pt scheduled with Dr. Alonso 02/09/23. documented in this encounterChillicothe Hospital07-06-2023 Miscellaneous Notes* Telephone Encounter - Veda Dominique RN - 11/05/2022 1:27 PM EDT Verbal order with read back from Dr. Parra for a stat creatinine. Order placed. Veda Dominique RN * Telephone Encounter - GENIE Long - 11/05/2022 1:[address] order for stat creatinine order for pt , pt appt 11/05/[address] @ 1:20 please file order documented in this encounterChillicothe Hospital06-30-2023 History of Present illness Narrative* Bruno Parra MD - 10/30/2022 9:40 PM EDT FOLLOW UP VISIT NAME: Choco Maldonado [facility] NO.: [id number] DATE OF SERVICE: October 27, 2022 : 1960 REFERRING PHYSICIAN: Linda Parish MD Choco is a patient I am following for complicated diverticulitis. The patient is a 61 year old male with a recent history of complicated diverticulitis requiring emergency surgical intervention with resection and colostomy in [facility]. The patient has a known history of diverticulosis and has had what appears to have been more mild episodes of diverticulitis/left lower quadrant pain in the past. She underwent colonoscopy by Dr. Zamudio on April 16, 2021 which demonstrated a small sigmoid polyp that had been removed. I performed c olonoscopy in 2018 which also demonstrated some smaller polyps. This was for hematochezia. He had colonoscopy in [address] Davis which had multiple small rectal polyps removed also for hematochezia as an indication. Images from those endoscopies demonstrated few small diverticula around specifically mentioned. The patient was seen on July 24, 2022 and primary care he noted lower midline abdominal discomfort. He was given a tentative diagnosis of diverticulitis and prescribed Augmentin. 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 CT scan was obtained. He was sent home from the emergency department but apparently the CT scan was reviewed he was told to come back to the hospital. He was admitted and underwent emergent surgery with sigmoid resection and end colostomy. He was discharged to home on August 06. He presented to our office for evaluation. Records and CT scan images have been requested from his operating hospital The patient is being seen by me at the request of Dr. Linda Parish MD for my opinion and advice regarding follow-up for emergent diverticulitis surgery. He notes that overall his stool is forming up. He notes some discomfort in his lower to mid abdominal area. He especially notes difficulty falling asleep at night due to an annoying or gnawing discomfort. He also notes irritation in the peristomal area. He has not received his stoma bags from his supply company but he and his ordered some from [employer]. Appetite has been fine. Returns for follow-up. He notes looser stools in the stoma bag recently. He notes a rash and irritation around his skin at his stoma site. He notes that this itches terribly and he cannot help but scratch it. He notes that his psoriasis has been active all over his body particularly his arms and back. He was prescribed a medicine that he has not yet started taking. He notes significant improvement in the irritation since the last office visit he did bring a new stoma bag VITALS: Blood pressure 136/82, pulse 87, temperature 36.4 C (97.6 F), weight 82.2 kg (181 lb 3.2 oz), SpO2 99 %. On examination, the stoma bag was removed. There was minimal peristomal irritation. A new stoma bagwas placed. Assessment IMPRESSION: Peristomal irritation, likely both moisture irritation and psoriasis. PLAN: If the patient notes any problems or signs of worsening infection, the patient should contact me immediately. I recommend the patient take his psoriasis medication. I recommended stoma powder to try to dry the area up under the stoma bag and allow it to air dry as much as possible and minimize scratching of the site. I ordered a CT scan of the abdomen pelvis to evaluate the abdomen with plans to approach his colostomy takedown based on these findings. Diagnoses: (R10.32) Left lower quadrant abdominal pain (primary encounter diagnosis) (K63.1) Perforation of colon (HCC) (Z93.3) Colostomy in place (HCC) Return to Clinic: The patient is instructed to follow-up with me in 1 month. Bruno Parra MD documented in this encounterChillicothe Hospital05-11-2023 History of Present illness Narrative* Bruno Parra MD - 09/10/2022 6:18 PM EDT FOLLOW UP VISIT NAME: Choco Georges [facility] NO.: [id number] DATE OF SERVICE: 09/10/2022 : 1960 REFERRING PHYSICIAN: Linda Parish MD Choco is a patient I am following for complicated diverticulitis. The patient is a 61 year old male with a recent history of complicated diverticulitis requiring emergency surgical intervention with resection and colostomy in [facility]. The patient has a known history of diverticulosis and has had what appears to have been more mild episodes of diverticulitis/left lower quadrant pain in the past. She underwent colonoscopy by Dr. Zamudio on April 16, 2021 which demonstrated a small sigmoid polyp that had been removed. I performed c olonoscopy in 2018 which also demonstrated some smaller polyps. This was for hematochezia. He had colonoscopy in [address] Davis which had multiple small rectal polyps removed also for hematochezia as an indication. Images from those endoscopies demonstrated few small diverticula around specifically mentioned. The patient was seen on July 24, 2022 and primary care he noted lower midline abdominal discomfort. He was given a tentative diagnosis of diverticulitis and prescribed Augmentin. 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 CT scan was obtained. He was sent home from the emergency department but apparently the CT scan was reviewed he was told to come back to the hospital. He was admitted and underwent emergent surgery with sigmoid resection and end colostomy. He was discharged to home on August 06. He presented to our office for evaluation. Records and CT scan images have been requested from his operating hospital The patient is being seen by me at the request of Dr. Linda Parish MD for my opinion and advice regarding follow-up for emergent diverticulitis surgery. He notes that overall his stool is forming up. He notes some discomfort in his lower to mid abdominal area. He especially notes difficulty falling asleep at night due to an annoying or gnawing discomfort. He also notes irritation in the peristomal area. He has not received his stoma bags from his [employer] but he and his ordered some from [employer]. Appetite has been fine. Returns for follow-up. He notes looser stools in the stoma bag recently. He notes a rash and irritation around his skin at his stoma site. He notes that this itches terribly and he cannot help but scratch it. He notes that his psoriasis has been active all over his body particularly his arms and back. He was prescribed a medicine that he has not yet started taking. VITALS: Blood pressure 118/60, pulse 101, temperature 36.4 C (97.6 F), weight 77.1 kg (170 lb), SpO2 96 %. On examination, he has irritation in the peristomal area with the stoma bag in place along with a photo that he showed me. The stoma bag was taken off the wafer was left in place he did not bring second wafer. The patient also has extensive psoriasis with excoriation of his arms and lower back. Assessment IMPRESSION: Peristomal irritation, likely both moisture irritation and psoriasis. PLAN: If the patient notes any problems or signs of worsening infection, the patient should contact me immediately. I recommend the patient take his psoriasis medication. I recommended stoma powder to try to dry the area up under the stoma bag and allow it to air dry as much as possible and minimize scratching of the site. Diagnoses: (K63.1) Perforation of colon ([facility]) (primary encounter diagnosis) (Z93.3) Colostomy in place ([facility]) (K57.92) Diverticulitis Return to Clinic: The patient is instructed to follow-up with me in 1 month. Bruno Parra MD documented in this encounterChillic[facility]05-10-2023 Miscellaneous Notes* Telephone Encounter - Nanci Ingram APRN.SIGNAL SUPERVISOR - 09/09/2022 10:22 AM EDT Spoke with patient regarding LDCT results category 3 with follow-up recommended in [address] appointment. I let him know that our schedulers will be reaching out to him to schedule this appointment. He understands and agrees with the plan. * Telephone Encounter - Alicia Haddad - 09/09/2022 9:39 AM EDT Mr. Maldonado returning call for results. Callback # [phone] documented in this encounterChillicothe Hospital05-10-2023 Miscellaneous Notes* Telephone Encounter - Nanci Ingram APRN.CNP - 09/09/2022 8:30 AM EDT Attempted to reach patient regarding LDCT results - no answer, left message. documented in this encounterChillicothe Hospital05-08-2023 History of Present illness Narrative* Darby Rey CT - 09/07/2022 2:30 PM EDT Radiology Service Progress Note PATIENT NAME: Choco Maldonado DATE OF SERVICE: September 07, 2022 TIME: 3:14 PM PATIENT IDENTITY VERIFICATION COMPLETED USING TWO (2) IDENTIFIERS: Name and Date of confirmedby patient verbally. FALL SCREENING: Has the patient had 2 falls in the last year or 1 fall with injury or currently using an Ambulatory Assistive Device (Walker, Cane, Wheelchair, Crutches, etc.)? No PATIENT GENDER DATA: Male PATIENT RELEVANT IMPLANT DATA REVIEWED: Yes RADIOLOGY DEPARTMENT: CT; Exam(s) Completed: Chest PERIPHERAL IV DATA: Not applicable SIGNED BY: CATERINA Ag September 07, 2022 3:14 PM documented in this encounterChillicothe Hospital05-08-2023 Instructions* Patient Instructions* Nanci Ingram APRN.CNP - 09/07/2022 2:[address] Lung Screen Results The CT scan that you will have done today will show if you have any nodules (small spots) in your lungs that are suspicious for cancer. Around 90% of the patients who have this scan done are found tohave at least one nodule. Most nodules are benign (not cancer) and of no harm to you at all. A specialist will make a scientific evaluation about whether or not a nodule is worrisome based on its size and shape. The radiologist who will read your scan will put it into one of four categories: LUNG-RADS Category Description Overall Probability of Malignancy Recommended Follow-Up 1 Negative No nodules and definitely benign (non-cancerous nodules) Essentially 0. 1 Year - Follow-up Low dose CT 2 Benign Appearance or Behavior Nodules with a very low likelihood of becoming cancer due to size or lack of growth Less than 1% 1 Year - Follow-up Low dose CT 3 Probably Benign Probably benign finding, short term follow-up recommended 1 to 2% 6 Months - Follow-up Low dose CT 4 Suspicious Findings for which additional diagnostic testing and/or biopsy is recommended Will be calculated based on nodule characteristics. Dependent on what is seen on the exam. At times, we may see something outside of the lungs on the scan that could be a health concern. Below are some of the most common findings: S Clinically Significant or Potentially Clinically Significant Findings (non lung cancer) Referral or additional imaging/labs depending on result. Approximately 10% of people receive this result. Coronary Artery Calcifications (Moderate or Severe) - Referral to cardiology for further work-up and recommendations. Thyroid Nodule - TSH level and Thyroid Ultrasound dependent on size, referral to endocrinology. Adrenal Nodule - Blood work and referral to endocrinology. Others Lung Cancer Screening hotline: [phone] Lung Cancer Screening [phone] Lung Cancer Screening Team: [phone] documented in this encounterChillicothe Hospital05-08-2023 History of Present illness Narrative* Nanci Ingram APRN.SIGNAL SUPERVISOR - 09/07/2022 1:59 PM EDT Images from the original note were not included. LUNG SCREENING VISIT PRIMARY CARE PHYSICIAN: Linda Parish MD PULMONARY PROVIDER: None Results will be communicated via letter or electronic record if applicable. Visit Delivery: In Person Patient Visit Type: Established Current or Ex-smoker? [Current] Exam Type: annual LDCT Number of Pack Years: 39 Current smoker (=0) Results will be communicated via letter or electronic record. REQUESTER: The referring provider advised the patient to have screening. HISTORY OF PRESENT ILLNESS: Choco Maldonado is a 61 year old active smoker who presents for lung screening. He was in the hospital recently for diverticulitis while he was in [place]. He had surgery and a colostomy was placed. Initially had some SOB after surgery but that has resolved. No recent respiratory infections. He was able to quit smoking for three weeks during that time but started back again, currently smoking half ppd. Respiratory symptoms include: SOB: No Chest tightness: No Coughing: No Hemoptysis: No Wheezing: No Fever/Chills: No Recent Respiratory Infection: No Unintentional weight loss: No Last 6 Encounter Wt Readings: Date: Wt: 09/01/2022 78 kg (172 lb) 08/10/2022 77.2 kg (170 lb 3.2 oz) 07/24/2022 79.8 kg (176 lb) 06/08/2022 80.3 kg (177 lb) 05/27/2022 79.4 kg (175 lb) 05/01/2022 79.8 kg (176 lb) ECOG PERFORMANCE STATUS: 0- Fully active, able to carry on all pre-disease performance w/o restriction. Modified Medical Research [place] Dyspnea Scale (MMRC) I only get breathless with strenous exercise 0 Lung Cancer Risk Factors: 1.Tobacco Use: Start Age 22, Quit Age N/A , Average packs per day 1, Pack Years 39. 2. Passive Smoke Exposure: Yes as an adult. 3. Personal hx of malignancy: No. 4. Significant exposures (1 year or more of exposure): Dusts. 5. Race: White. 6. Education:College graduate 7. BMI:Body mass index is 22.08 kg/m . 8. COPD: No 9. Pneumonia in the past 5 years: No 10. Is there a history of lung cancer in a first degree relative? Yes. 11. Is there a history of lung cancer in a non first degree relative? No 12. Is there a history of any other cancer in a first degree relative? Yes. PAST MEDICAL HISTORY Diagnosis Date Acute diverticulitis Aortic insufficiency Bursitis of elbow left Coronary artery disease mild nonobstructive Diverticulitis Migraines Palpitations Pinched nerve 11/04/2020 low back Psoriasis Raynaud disease SVT (supraventricular tachycardia) (HCC) Tobacco abuse PAST SURGICAL HISTORY Procedure Laterality Date COLONOSCOPY FLX DX W/COLLJ SPEC WHEN PFRMD 05/23/2014 Colonoscopy COLONOSCOPY FLX DX W/COLLJ SPEC WHEN PFRMD 09/24/2017 Colonoscopy COLONOSCOPY FLX DX W/COLLJ SPEC WHEN PFRMD 04/16/2021 ESOPHAGOGASTRODUODENOSCOPY TRANSORAL DIAGNOSTIC 05/23/2014 EGD ESOPHAGOGASTRODUODENOSCOPY TRANSORAL DIAGNOSTIC 08/15/2014 EGD HEMORRHOIDECTOMY INT & XTRNL 2/> COLUMN/FAHEEM 10/01/2017 left posterior PAST SURGICAL HISTORY OF 2008 Pain injections lumbar PAST SURGICAL HISTORY OF 08/03/2022 colostomy RT/LT HEART CATHETERS 08/09/2020 [facility] FAMILY HISTORY Problem Relation Age of Onset Breast Cancer Mother Diabetes Father Heart Father other (Raynauds) Daughter other (Raynauds) Son Diabetes Maternal Grandfather TREMFYA 100 mg/mL AutoInjector^^Disp: ^Rfl: hydrOXYzine pamoate (VISTARIL) 25 mg capsule^Take 1 capsule by mouth three times daily as needed for itching/rash.^Disp: 30 capsule^Rfl: 0 ibuprofen (MOTRIN) 600 mg tablet^Take 600 mg by mouth every 6 hours as needed.^Disp: ^Rfl: meloxicam (MOBIC) 15 mg tablet^Take 1 tablet by mouth once daily.^Disp: 30 tablet^Rfl: 1 amitriptyline (ELAVIL) 25 mg tablet^Take 1 tablet by mouth daily at bedtime.^Disp: ^Rfl: losartan (COZAAR) 25 mg tablet^Take 1 tablet by mouth once daily.^Disp: 30 tablet^Rfl: 5 fremanezumab-vfrm (AJOVY AUTOINJECTOR) 225 mg/1.5 mL auto-injector^Ajovy 225 mg/1.5 mL subcutaneousauto-injector Inject 1.5 mL subcutaneously once a month^Disp: ^Rfl: rimegepant (NURTEC ODT) 75 mg disintegrating tablet^Nurtec ODT 75 mg disintegrating tablet Take 1 tab under tongue at onset of migraine. Max 1 in 24 hours.^Disp: ^Rfl: acetaminophen (TYLENOL) 325 mg tablet^Take 650 mg by mouth every 6 hours as needed.^Disp: ^Rfl: ALLERGIES Allergen Reactions Verapamil Rash The medications and allergies were reviewed and reconciled for this patient and deemed current. Health Maintenance Immunization History Administered Date(s) Administered COVID-19 original vaccine, age 12+ yr, monovalent ([employer]-BIONTEnglishUp - PURPLE TOP) 07/09/2020 07/30/2020 COVID-19 vaccine, age 12+ yr, bivalent (PFIZER-BIONTECH) 02/05/2022 influenza (IIV4) vaccine, age 6 mo - 64 yr, quadrivalent (AFLURIA, FLULAVAL, FLUZONE) 02/15/2018 02/13/2019 03/31/2021 02/05/2022 influenza (IIV4) vaccine, age 6 mo - 64 yr, quadrivalent, PF (AFLURIA, FLUARIX, FLULAVAL, FLUZONE) 02/23/2020 pneumococcal (PCV13) vaccine, 13 valent (PREVNAR 13) 02/28/2020 pneumococcal (PPV23) vaccine, 23 valent (PNEUMOVAX 23) 07/18/2014 tetanus diphtheria pertussis (Tdap) vaccine, age 7+ yr (ADACEL, BOOSTRIX) 04/13/2008 04/04/2021 Colonoscopy: 04/16/2021 Mammogram: DATA REVIEW I have directly visualized the testing documented: Prior Imaging: Last CT/CTA Chest/Lungs CT LUNG SCREEN WO IVCON Exam End: 06/24/2021 11:33 AM (Final result) Narrative: * * *Final Report* * * DATE OF EXAM: Jun 24 2021 11:33AM [facility] 0562 - CT LUNG SCREEN WO IVCON / PROCEDURE REASON: Tobacco use * * * * Physician Interpretation * * * * EXAMINATION: CHEST CT WITHOUT CONTRAST (LOW-DOSE CT LUNG CANCER SCREENING PROTOCOL) CLINICAL HISTORY: Lung cancer LDCT screening ? absence of signs or symptoms of lung cancer. Nicotine dependence (cigarettes). Subsequent (annual) Technique: Spiral CT acquisition of the chest from the thoracic inlet to the upper abdomen without contrast. MQ: CTLCS_6 Patient characteristics: * Boys-xd-Avcgs: 1960; Age at exam: 60 years * Gender: Male * Lung Disease: Asymptomatic (no signs or symptoms of lung disease) * Number of Pack Years: 39 * Current smoker (=0) or Number of Years since Quit: 0 * Ordering provider and NPI: NANCI RED [id number] * Interpreting radiologist and NPI: Rene [id number] Exam acquisition parameters: * Exam Date: 06/24/2021 11:33 AM * Site: [facility] * * CT System Physicist Astrophysics: LeanKit * CT System Model: [employer] Boo * Tube Current-Time (mA-sec): 32.5 * Peak Voltage (kV): 120V * Scan Time (sec): 4.62 * Scan Volume (z-length, cm): 31.70 * Pitch: 0.984 * Slice Thickness (mm): 1.25 * CT Dose-Length Product: 101.44 mGy*cm * CT Dose Index: 2.88mGy * CT Dose Reduction Method: Iterative recon and mAs-kVp adjusted using patient size-age COMPARISON: CT lung screen dated 04/24/2020 RESULT: Are nodules present? Yes, 1-5 nodules If No, go to IMPRESSION. If yes, proceed with characterization of the FIVE largest nodules. Nodule 1: This Solid nodule is located in the Right Upper Lobe on slice number 87 with an average diameter of 2.6 mm. Stable compared to the exam dated 04/24/2020 Nodule 2: This Solid nodule is located in the Right Upper Lobe on slice number 135 with an average diameter of 2.4 mm. Stable compared to the exam dated 04/24/2020 Nodule 3: This Solid nodule is located in the Right Upper Lobe on slice number 85 with an average diameter of 2.1 mm. Stable compared to the exam dated 04/24/2020 If this is an ANNUAL LDCT for LCS, please ensure nodule number is the same as in the prior evaluation. Other lung nodule comments: None Other findings: The trachea and central airways appear patent and devoid of endobronchial lesion. There are mild, upper lobe predominant paraseptal emphysematous changes. No dominant bulla is identified. There is associated mild bilateral bronchial wall thickening, consistent with chronic airways inflammation. The lungs are clear of focal consolidation. No pleural effusion or pneumothorax is identified. Mild heterogeneous attenuation of both thyroid lobes is again noted. No supraclavicular lymphadenopathy is identified. No region of kilo intrathoracic lymphadenopathy has developed. Borderline enlarged and subcentimeter lymph nodes remain scattered in the mediastinum including the bilateral paratracheal and subcarinal regions and the AP window, stable since prior exam. The esophagus appears non-dilated. There is ectasia of the ascending thoracic aorta which measures 41 x 40 mm in maximum transverse diameter. There are atherosclerotic calcifications of the thoracic aorta. There is a common origin of the brachiocephalic and left common carotid arteries, a normal anatomic variant. The main and central pulmonary arteries are at the upper limits of normal in diameter. The main pulmonary measures 29 mm in maximum transverse diameter. The overall heart size is within normal limits. There is no pericardial effusion. Visualized portions of the upper abdomen disclose no acute process. The vertebral body heights appear symmetric and well-maintained. No lytic or destructive osseous lesion is identified. The soft tissues of the chest wall appear unremarkable. Emphysema: Mild (5-25%), Paraseptal, Upper lobe Coronary Artery Calcifications: Circumflex None; Left Anterior Descending Minimum; Right Coronary None Firefighter (topogram) images: No additional findings. Impression: IMPRESSION: LungRADS category: 2 LungRADS modifier: None LungRADS 0 reason: n/a Recommendations: Continue annual screening with LDCT in 12 months. Other actionable findings: None Reference: [employer]. Lung CT Screening Reporting and Data System (Lung-RADS). Available at: http://www.acr.org/Quality-Safety/Resources/LungRADS Bartacker: ANNALISE Transcribe Date/Time: Jun 24 2021 1:17P Dictated by : ANA REYES MD This examination was interpreted and the report reviewed and electronically signed by: ANA REYES MD on Jun 24 2021 1:41PM EST Last CT Chest - Impression Only No resulted procedures found. Last XR Chest - Impression Only XR RIBS/CHEST 3V AP RIB/OBLS/CXR LEFT Exam End: 07/22/2021 2:10 PM (Final result) Impression: IMPRESSION: No radiographic evidence of left displaced rib fracture. Bartacker: ANNALISE Transcribe Date/Time: Jul 22 2021 2:30P ... Pulmonary Function Testing: No textual results found for the specified procedure(s). PHYSICAL EXAM: Deferred ASSESSMENT and RECOMMENDATIONS: 1. Screening for lung cancer: Six year risk for lung cancer: 3.6% Source: [employer] I have determined that the patient is eligible for a low dose CT based on age, absence of signs or symptoms of lung cancer, and total pack years: Yes. The patient and I engaged in shared decision making, including the use of one or more decision aids, to include benefits, harms, follow-up diagnostic testing, over-diagnosis, false positive rate, andtotal radiation exposure. The patient understands and feels comfortable with it: Yes. The patient was counseled on the importance of adherence to annual LDCT lung cancer screening, impact of comorbidities and ability or willingness to undergo diagnosis and treatment. The patient understands and feels comfortable with it:Yes. 2. Nicotine dependence: The patient was counseled on the importance of smoking cessation if currentsmoker and, if appropriate, offered additional tobacco cessation counseling services - Smoking Cessation Counseling. SMOKING CESSATION COUNSELING Smoking cessation methods including Behavior Modification were discussed with the patient and assistance offered. The medical conditions adversely affected by cigarette use include:COPD and Emphysema. The patient is currently ready to quit. I personally spent 2 minutes in counseling. The time spent in smoking cessation counseling is exclusive of any other counseling during this visit. 3. Lung Nodules: Discussed category [address] Lung 2021 imaging. MDM: Medical Decision Making: Problems: Moderate: 2+ stable chronic illnesses Data: Unique test result(s) reviewed: 1 Unique test(s) ordered: 1 Assessment requiring an independent historian(s) Risk: Low: Low risk from testing/treatment Medical Decision Making Level: 4 - Moderate Nanci Ingram APRN.CNP NPI #: September 07, 2022 1:59 PM documented in this encounterChillicothe [facility]05-03-2023 History of Present illness Narrative* Rebecca Santana PA-C - 09/02/2022 1:01 PM EDT Choco Maldonado is now 10 weeks s/p right CTR, partial villalobos fasciectomy of the right small, ringand long fingers, (06/25/22). Doing well overall. Denies any numbness/tingling. Pain continues to improve. He had emergency open abdominal surgery while he was on vacation in [place] a few weeks ago. Incisions well healed, No open wounds, No erythema, no drainage. Mild stiffness of fingers with flexion, thickened scar over volar long finger, nearly full extension of fingers with slight flexion contracture of PIP joint of ring finger, Intact sensation to all digits. Brisk capillary refill. Scar massage He will continue working on ROM and strengthening exercises He prefers to work on exercises himself instead of seeing OT Follow up as needed Rebecca Santana PA-C documented in this encounterChillicothe Hospital05-02-2023 History of Present illness Narrative* Linda Parish MD - 09/01/2022 3:08 PM EDT Patient presents with: Follow Up HPI: Patient presents today for office visit for follow up for post op. Was admitted into [facility] on 08/03/22 for Diverticulitis with perforation. Was feeling well. Went to [facility] and started with severe pain. Sent to the ER and did a ct can and gave him some iv antibioticsand ibuprofen and the next day and developed severe pain suddenly and went to ER. On arrival they were already contacting him to evaluate for possible perforation on an over read. Did surgery. Removed a portion of the colon. Emergency temporary Colostomy placed. Followed up with Dr. Parra. Cotter removed. Surgery not scheduled yet. Thinking reconnection will be in October or December. Follow up scheduled 09/10/22. Oral abx completed. Some intermittent abdominal pain on left side. Denies nausea and vomiting Appetite is better. Eating pretty good. Urinating ok. No fever. Denies chest pain or shortness of breath Complaints of severe skin itching around the stoma. Was red but is doing better Hasn't been sleeping very well. Has been trying robel at night for the itching and sleep EZ sleep aid with no relief.no pain or drainage. Advised to let surgery know if any other issues with the stoma. Also itching all over. Is on back, abdomen and extremities. No new meds. He has not yet started thetremfya or ajovy. Has issues with his psoriasis as well. No abd pain. May have started when on antibiotics. MEDICATIONS: Current Outpatient Medications Medication Sig TREMFYA 100 mg/mL AutoInjector ibuprofen (MOTRIN) 600 mg tablet Take 600 mg by mouth every 6 hours as needed. meloxicam (MOBIC) 15 mg tablet Take 1 tablet by mouth once daily. amitriptyline (ELAVIL) 25 mg tablet Take 1 tablet by mouth daily at bedtime. losartan (COZAAR) 25 mg tablet Take 1 tablet by mouth once daily. fremanezumab-vfrm (AJOVY AUTOINJECTOR) 225 mg/1.5 mL auto-injector Ajovy 225 mg/1.5 mL subcutaneousauto-injector Inject 1.5 mL subcutaneously once a month rimegepant (NURTEC ODT) 75 mg disintegrating tablet Nurtec ODT 75 mg disintegrating tablet Take 1 tab under tongue at onset of migraine. Max 1 in 24 hours. acetaminophen (TYLENOL) 325 mg tablet Take 650 mg by mouth every 6 hours as needed. Current Facility-Administered Medications Medication Dose Route Frequency perflutren lipid microspheres 1.3 mL in NaCl (PF) 0.9% 10 mL injection (DEFINITY) INTRAVENOUS DIRECTED PRN sodium chloride 0.9 % (flush) 10 mL (BD POSIFLUSH) 10 mL INTRAVENOUS DIRECTED PRN ALLERGIES: ALLERGIES Allergen Reactions Verapamil Rash PAST MEDICAL HISTORY Diagnosis Date Acute diverticulitis Aortic insufficiency Bursitis of elbow left Coronary artery disease mild nonobstructive Diverticulitis Migraines Palpitations Pinched nerve 11/04/2020 low back Psoriasis Raynaud disease SVT (supraventricular tachycardia) (HCC) Tobacco abuse PAST SURGICAL HISTORY Procedure Laterality Date COLONOSCOPY FLX DX W/COLLJ SPEC WHEN PFRMD 05/23/2014 Colonoscopy COLONOSCOPY FLX DX W/COLLJ SPEC WHEN PFRMD 09/24/2017 Colonoscopy COLONOSCOPY FLX DX W/COLLJ SPEC WHEN PFRMD 04/16/2021 ESOPHAGOGASTRODUODENOSCOPY TRANSORAL DIAGNOSTIC 05/23/2014 EGD ESOPHAGOGASTRODUODENOSCOPY TRANSORAL DIAGNOSTIC 08/15/2014 EGD HEMORRHOIDECTOMY INT & XTRNL 2/> COLUMN/FAHEEM 10/01/2017 left posterior PAST SURGICAL HISTORY OF 2008 Pain injections lumbar PAST SURGICAL HISTORY OF 08/03/2022 colostomy RT/LT HEART CATHETERS 08/09/2020 [facility] FAMILY HISTORY Problem Relation Age of Onset Breast Cancer Mother Diabetes Father Heart Father other (Raynauds) Daughter other (Raynauds) Son Diabetes Maternal Grandfather Social History Tobacco Use Smoking status: Every Day Packs/day: 1.00 Years: 35.00 Pack years: 35.00 Types: Cigarettes Start date: 02/11/1981 Smokeless tobacco: Never Vaping Use Vaping Use: Never used Substance Use Topics Alcohol use: Yes Comment: 3-4 drinks per day 5 days per week Drug use: No Reviewed current medications, allergies, past medical history, surgical history, family history andsocial history today. REVIEW OF SYSTEMS All other reviewed and negative other than HPI. VITALS: BP 116/60 Pulse 79 Ht 188 cm (6' 2) Wt 78 kg (172 lb) SpO2 95% BMI 22.08 kg/m Last 4 Encounter Wt Readings: Date: Wt: 08/10/2022 77.2 kg (170 lb 3.2 oz) 07/24/2022 79.8 kg (176 lb) 06/08/2022 80.3 kg (177 lb) 05/27/2022 79.4 kg (175 lb) PHYSICAL EXAMINATION: General appearance: Well appearing, alert, in no acute distress, well-hydrated, well nourished. Skin: Skin color, texture, turgor normal, no suspicious rashes or lesions, no definite new rash. Area around stoma appears benign today. Lungs: Lungs clear to auscultation. No wheezing, rhonchi, rales Heart: RRR, murmur unchanged, gallop, or rubs. No ectopy Abdomen: Normal abdominal exam, Abdomen soft, non-tender. Bowel sounds normal. No masses, organomegaly Extremities: No deformities, edema, skin discoloration, clubbing or cyanosis. Good capillary refill. ASSESSMENT/PLAN: 1. Pruritus - ICD9: 698.9, ICD10: L29.9 (primary diagnosis) - ? Delayed med reaction. Will check labs. Atarax prn. Call if symptoms worsen at all or if not better in one to two weeks - CBC + DIFF - COMP METABOLIC PANEL - SED RATE WESTERGREN 2. Psoriasis - ICD9: 696.1, ICD10: L40.9 - per derm. 3. Colostomy in place (HCC) - ICD9: V44.3, ICD10: Z93.3 - call surgery if any issues with stoma 4. Diverticulitis - ICD9: 562.11, ICD10: K57.92 - clinically looks good. Linda Parish MD documented in this encounterChillicothe Hospital04-20-2023 Miscellaneous Notes* Telephone Encounter - Marcia Alves LPN - 08/20/2022 9:24 AM EDT Faxed as requested. * Telephone Encounter - Linda Parish MD - 08/19/2022 3:00 PM EDT Printed * Telephone Encounter - Benita Waddell RN - 08/19/2022 12:58 PM EDT Patient's calling with request for increase in # boxes of ostomy bags from 1 to 3 on script written 08/10/22. She says there are only ten bags per box and he is changing his ostomy bag daily. Please fax new order to [facility] ([place]) . Benita Waddell RN documented in this encounterChillicothe Hospital04-19-2023 Miscellaneous Notes* Telephone Encounter - Nikhil Zamudio LPN - 08/19/2022 4:28 PM EDT See phone note. Nikhil Zamudio LPN * Telephone Encounter - Rebecca Salgado Ma - 08/14/2022 4:49 PM EDT Type of form: Ostomy Supplies Form received via fax When form is completed, Fax form to [place] Form has been forwarded to Physician Desk: Dr. Марина Salgado Ma documented in this encounterChillicothe Hospital04-17-2023 History of Present illness Narrative* Tank Vivas RN - 08/17/2022 2:25 PM EDT Phlebo not needed today. documented in this encounterChillicothe Hospital04-13-2023 History of Present illness Narrative* Bruno Parra MD - 08/13/2022 7:11 AM EDT HISTORY AND PHYSICAL Choco Maldonado 1960 REFERRING PHYSICIAN: Linda Parish MD CHIEF COMPLAINT: Follow Up (Surgery, perforation of colon, colostomy) HPI: The patient is a 61 year old male with a recent history of complicated diverticulitis requiring emergency surgical intervention with resection and colostomy in [facility]. The patient has a known history of diverticulosis and has had what appears to have been more mild episodes of diverticulitis/left lower quadrant pain in the past. She underwent colonoscopy by Dr. Zamudio on April 16, 2021 which demonstrated a small sigmoid polyp that had been removed. I performed c olonoscopy in 2018 which also demonstrated some smaller polyps. This was for hematochezia. He had colonoscopy in [address] Davis which had multiple small rectal polyps removed also for hematochezia as an indication. Images from those endoscopies demonstrated few small diverticula around specifically mentioned. The patient was seen on July 24, 2022 and primary care he noted lower midline abdominal discomfort. He was given a tentative diagnosis of diverticulitis and prescribed Augmentin. 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 CT scan was obtained. He was sent home from the emergency department but apparently the CT scan was reviewed he was told to come back to the hospital. He was admitted and underwent emergent surgery with sigmoid resection and end colostomy. He was discharged to home on August 06. He presented to our office for evaluation. Records and CT scan images have been requested from his operating hospital The patient is being seen by me today at the request of Dr. Linda Parish MD for my opinion and advice regarding follow-up for emergent diverticulitis surgery. PAST MEDICAL HISTORY Diagnosis Date Acute diverticulitis Aortic insufficiency Bursitis of elbow left Coronary artery disease mild nonobstructive Diverticulitis Migraines Palpitations Pinched nerve 11/04/2020 low back Psoriasis Raynaud disease SVT (supraventricular tachycardia) (HCC) Tobacco abuse PAST SURGICAL HISTORY Procedure Laterality Date COLONOSCOPY FLX DX W/COLLJ SPEC WHEN PFRMD 05/23/2014 Colonoscopy COLONOSCOPY FLX DX W/COLLJ SPEC WHEN PFRMD 09/24/2017 Colonoscopy COLONOSCOPY FLX DX W/COLLJ SPEC WHEN PFRMD 04/16/2021 ESOPHAGOGASTRODUODENOSCOPY TRANSORAL DIAGNOSTIC 05/23/2014 EGD ESOPHAGOGASTRODUODENOSCOPY TRANSORAL DIAGNOSTIC 08/15/2014 EGD HEMORRHOIDECTOMY INT & XTRNL 2/> COLUMN/FAHEEM 10/01/2017 left posterior PAST SURGICAL HISTORY OF 2008 Pain injections lumbar PAST SURGICAL HISTORY OF 08/03/2022 colostomy RT/LT [facility] 08/09/2020 [facility] Current Outpatient Medications Medication Sig ciprofloxacin HCl (CIPRO) 500 mg tablet Take 500 mg by mouth twice daily. ibuprofen (MOTRIN) 600 mg tablet Take 600 mg by mouth every 6 hours as needed. metroNIDAZOLE (FLAGYL) 500 mg tablet Take 500 mg by mouth three times daily. oxyCODONE IR (ROXICODONE) 5 mg immediate release tablet Take 1 tablet by mouth every 6 hours as needed for pain. for pain. meloxicam (MOBIC) 15 mg tablet Take 1 tablet by mouth once daily. amitriptyline (ELAVIL) 25 mg tablet Take 1 tablet by mouth daily at bedtime. losartan (COZAAR) 25 mg tablet Take 1 tablet by mouth once daily. fremanezumab-vfrm (AJOVY AUTOINJECTOR) 225 mg/1.5 mL auto-injector Ajovy 225 mg/1.5 mL subcutaneousauto-injector Inject 1.5 mL subcutaneously once a month rimegepant (NURTEC ODT) 75 mg disintegrating tablet Nurtec ODT 75 mg disintegrating tablet Take 1 tab under tongue at onset of migraine. Max 1 in 24 hours. ixekizumab (TALTZ) 80 mg/mL syringe Inject 80 mg subcutaneously once every month. acetaminophen (TYLENOL) 325 mg tablet Take 650 mg by mouth every 6 hours as needed. Current Facility-Administered Medications Medication Dose Route Frequency perflutren lipid microspheres 1.3 mL in NaCl (PF) 0.9% 10 mL injection (DEFINITY) INTRAVENOUS DIRECTED PRN sodium chloride 0.9 % (flush) 10 mL (BD POSIFLUSH) 10 mL INTRAVENOUS DIRECTED PRN ALLERGIES: Verapamil PERSONAL HISTORY: Social History Tobacco Use Smoking status: Every Day Packs/day: 1.00 Years: 35.00 Pack years: 35.00 Types: Cigarettes Start date: 02/11/1981 Smokeless tobacco: Never Vaping Use Vaping Use: Never used Substance Use Topics Alcohol use: Yes Comment: 3-4 drinks per day 5 days per week Drug use: No FAMILY HISTORY: FAMILY HISTORY Problem Relation Age of Onset Breast Cancer Mother Diabetes Father Heart Father other (Raynauds) Daughter other (Raynauds) Son Diabetes Maternal Grandfather REVIEW OF SYMPTOMS: The review of systems data was entered by the nurse and reviewed by ak Nursing Notes: Lizzette Thompson LPN 08/11/2022 3:00 PM Signed REVIEW OF SYSTEMS: General: The patient denies fatigue, denies weight loss, denies weight gain, denies feeling hot, and denies feelings of cold. Eyes: The patient denies glaucoma, denies eye injury/surgery, wears glasses or contacts. Ear/Nose/Throat: The patient notes allergies, denies hayfever, denies ear infections, and denies bloody noses. Cardiovascular: The patient denies chest pain, denies heart disease, denies high blood pressure,denies cardiac stent, denies prior heart attack, notes irregular heart beat, denies high cholesterol, denies poor circulation, denies heart failure, other cardiac issues, denies claudication, denies coldfeet, denies peripheral arterial stent. Respiratory: The patient denies tuberculosis, denies pneumonia, denies frequent cough, denies pulmonary embolism, denies shortness of breath, and denies coughing up blood. Gastrointestinal: The patient denies difficulty swallowing, notes acid reflux, denies ulcers, denies vomiting, denies jaundice/hepatitis, denies gallbladder problems, denies black or tarry stools, denies hemorrhoids, denies bleeding from rectum, notes diverticulitis, denies constipation, denies diarrhea, denies loss of stool control, and denies hernias. Kidney/Bladder: The patient denies kidney stones, denies urine infections, and denies bloody urine. Skin: The patient denies a history of skin cancer, denies bleeding/changing moles, and denies a history of skin rash. Neurologic: The patient denies a history of epilepsy/convulsions, notes headaches, denies head/spinal injuries, and denies stroke/TIA. Psychiatric: The patient denies psychiatric medications, denies depression, and denies voices, denies substance abuse. Endocrine: The patient denies thyroid disorders, denies diabetes, and denies hormonal problems. Hematologic: The patient denies a history of bruising, denies bleeding, and denies anemia, denies blood clots. Infections: The patient denies a history of measles and mumps, denies rheumatic fever, and denies sexually transmitted diseases. Musculoskeletal: The patient denies back pain/injury, notes back problems, denies sciatica, denies knee/foot trouble, denies arthritis, or denies gout. When was patient's last Mammogram screening? N/A Last Colonoscopy: 2020 Lizzette Thompson LPN PHYSICAL EXAMINATION: General: The patient is 61 year old male, well nourished, well hydrated in no acute distress. The patient is oriented to time, place, and person. VITALS: There were no vitals taken for this visit. HEENT: Normal cephalic, ataumatic, pupils are equally round, sclera are anicteric, mucous membranesare moist, oropharynx is clear. Neck has no masses, asymmetry or lymphadenopathy. Thyroid is unremarkable. Respiratory: Clear to auscultation and percussion. Normal respiratory excursion and pattern. Cardiac: Examination is regular rate and rhythm. Abdominal exam: Soft, tender along the incision with no palpable masses. No hepatosplenomegaly. No palpable hernias. Stoma is in place with stool in colostomy bag. Incision was closed intermittently with arden with some areas of gaping and scant drainage without significant cellulitis or signs ofinfection Rectal exam: exam deferred Extremities: no clubbing, cyanosis or edema. No adenopathy. Other: LABORATORY VALUES: As Noted RADIOLOGIC STUDIES: As Noted Assessment IMPRESSION: Emergent surgery for diverticulitis. PLAN: I plan to obtain records from the patient's operating institution along with a copy of the CTscan. The wound was redressed. I will have him follow-up in 1 week for staple removal. Discussed with the patient the typical course would be colostomy takedown in 3 to 6 months. I plan to review his recent records and images when they are available. This may change timing for colostomy takedown. We will also plan to obtain follow-up CT scan in 1 month. Would plan for endoscopy priorto takedown. Diagnoses: (K63.1) Perforation of colon (HCC) (Z93.3) Colostomy in place (HCC) (K57.92) Diverticulitis My findings have been communicated to Dr. Linda Parish MD via shared medical record. This note will be forwarded to Dr. Linda Parish MD. Return to Clinic: The patient is instructed to follow-up with me in one week. Bruno Parra MD documented in this encounterChillic[facility]04-11-[facility]23 Nurse Note* Lizzette Thompson, EDWARD - 08/11/2022 2:58 PM EDT REVIEW OF SYSTEMS: General: The patient denies fatigue, denies weight loss, denies weight gain, denies feeling hot, and denies feelings of cold. Eyes: The patient denies glaucoma, denies eye injury/surgery, wears glasses or contacts. Ear/Nose/Throat: The patient notes allergies, denies hayfever, denies ear infections, and denies bloody noses. Cardiovascular: The patient denies chest pain, denies heart disease, denies high blood pressure,denies cardiac stent, denies prior heart attack, notes irregular heart beat, denies high cholesterol, denies poor circulation, denies heart failure, other cardiac issues, denies claudication, denies coldfeet, denies peripheral arterial stent. Respiratory: The patient denies tuberculosis, denies pneumonia, denies frequent cough, denies pulmonary embolism, denies shortness of breath, and denies coughing up blood. Gastrointestinal: The patient denies difficulty swallowing, notes acid reflux, denies ulcers, denies vomiting, denies jaundice/hepatitis, denies gallbladder problems, denies black or tarry stools, denies hemorrhoids, denies bleeding from rectum, notes diverticulitis, denies constipation, denies diarrhea, denies loss of stool control, and denies hernias. Kidney/Bladder: The patient denies kidney stones, denies urine infections, and denies bloody urine. Skin: The patient denies a history of skin cancer, denies bleeding/changing moles, and denies a history of skin rash. Neurologic: The patient denies a history of epilepsy/convulsions, notes headaches, denies head/spinal injuries, and denies stroke/TIA. Psychiatric: The patient denies psychiatric medications, denies depression, and denies voices, denies substance abuse. Endocrine: The patient denies thyroid disorders, denies diabetes, and denies hormonal problems. Hematologic: The patient denies a history of bruising, denies bleeding, and denies anemia, denies blood clots. Infections: The patient denies a history of measles and mumps, denies rheumatic fever, and denies sexually transmitted diseases. Musculoskeletal: The patient denies back pain/injury, notes back problems, denies sciatica, denies knee/foot trouble, denies arthritis, or denies gout. When was patient's last Mammogram screening? N/A Last Colonoscopy: 2020 Lizzette Thompson LPN documented in this encounterChillic[facility]03-29-2023 Miscellaneous Notes* Telephone Encounter - Marcia Alves LPN - 07/29/2022 12:49 PM EDT Called patient and scheduled follow up. * Telephone Encounter - Joy Conner PA-C - 07/29/2022 10:48 AM EDT Feeling 75% better. Appetite good, stools normal. No fever or chills. Recommend brief recheck in office next week with labs prior, non-fasting. Telephone on 07/28/22 CBC + DIFF Thanks, Cristhian Conner PA-C * Telephone Encounter - Joy Conner PA-C - 07/28/2022 5:26 PM EDT Called and spoke to who states his sleeping. Doing better but not fully recovered. Will call tomorrow. Cristhian Conner PA-C documented in this encounterChillicothe Hospital03-23-2023 Miscellaneous Notes* Telephone Encounter - Linda Parish MD - 07/23/2022 3:20 PM EDT See te * Telephone Encounter - Marcia Alves LPN - 07/23/2022 2:30 PM EDT Added to triage schedule. documented in this encounterChillicothe Hospital03-08-2023 History of Present illness Narrative* Rebecca Santana PA-C - 07/08/2022 4:29 PM EST Choco Maldonado is now 2 weeks s/p right CTR, partial villalobos fasciectomy of the right small, ring and long fingers, (06/25/22). Doing well overall. Denies any numbness/tingling other than paresthesias in the long finger. Pain continues to improve. Incisions healing well. Some of the Sutures removed. Open wound in the palm with healthy granulation tissue, No erythema, no drainage. Stiffness of fingers with flexion and extension, Intact sensation to all digits. Brisk capillary refill. Scar massage once incisions healed He will work on ROM exercises with OT Extension splint especially at night Twice daily dressing changes with adaptic or xeroform and gauze until palm wound healed Wash with soap and water The patient was instructed to call if he has any concerns at all. Follow up in 4 weeks. Rebecca Santana PA-C documented in this encounterChillicothe [facility]03-08-2023 History of Present illness Narrative* Geraldine Weston, OT/L - 07/08/2022 3:48 PM EST Episode Visit Count: 2 Therapist That Will Accept/Oversee The Plan Of Care: Trista Start of Care Date: 06/30/22 Onset Date: 06/25/22 Plan of Care Certification Date: 06/30/22 Next Certification Due Date: 08/29/22 Patient Identified by Name and Date of : Yes REHABILITATION AND SPORTS THERAPY OCCUPATIONAL THERAPY TREATMENT NOTE ASSESSMENT: Choco Maldonado tolerated the session with expected muscle soreness. He demonstrated improvements in wound healing and improved tolerance for looking at wound without becoming faint; measured today due to not being able to do this at Evaluation. The patient will continue to benefit from ongoing skilled occupational therapy to progress toward set goals. PLAN FOR NEXT VISIT: to transfer care to OT closer to home; remove remaining sutures, check fit of splint and increase extension as tolerated, check PROM as well as AROM; adjust wound care as needed Transfer of Care Due To: Closer to Home SUBJECTIVE: s/p ~2 wks R Middle, Ring and Little Dupuytren's Release; and R CTR; Here with , states he is working on finger motion, wearing splint on/off during the day and tried not wearing splint last night; doing dressing changes with wifes help using xeroform 1 x day; Pain: Pain Pain Level: 3 (at the worst last night 9/10;) Pain Location: Hand - Right Description: Aching, Sharp Frequency: Continuous OBJECTIVE MEASURES WITH LEVEL OF FUNCTION: Hand Edema Description: Moderate Edema Measurements: Digits Edema - Digits: Middle Finger, Ring Finger R Middle Finger P1 (cm): 7.4 cm R Middle Finger PIP Joint (cm): 7.2 cm L Middle Finger P1 (cm): 6.4 cm L Middle Finger PIP Joint (cm): 6.8 cm R Ring Finger P1 (cm): 7.3 cm R Ring Finger PIP Joint (cm): 7 cm L Ring Finger P1 (cm): 6 cm L Ring Finger PIP Joint (cm): 6 cm Right Hand AROM: Index Finger, Middle Finger, Ring Finger, Little Finger Right Hand PROM: Middle Finger, Ring Finger UE AROM Right Hand AROM: Index Finger, Middle Finger, Ring Finger, Little Finger Hand AROM R Middle Finger MP Extension : -45 Degrees R Middle Finger MP Flexion : 80 Degrees R Middle Finger PIP Extension: -20 Degrees R Middle Finger PIP Flexion : 55 Degrees R Middle Finger DIP Extension : 0 Degrees R Middle Finger DIP Flexion : 15 Degrees Right Middle Finger Total Active Movement: 85 R Ring Finger MP Extension : -30 Degrees R Ring Finger MP Flexion : 75 Degrees R Ring Finger PIP Extension: -25 Degrees R Ring Finger PIP Flexion : 65 Degrees R Ring Finger DIP Extension: 0 Degrees R Ring Finger DIP Flexion : 10 Degrees Right Ring Finger Total Active Movement: 95 UE PROM Right Hand PROM: Middle Finger, Ring Finger Hand PROM R Middle Finger PIP Flexion: 75 Degrees R Ring Finger PIP Flexion: 75 Degrees TREATMENT: Therapeutic Exercise: 1: Objective data taken and recorded 2: Active exercises: see pictures; do at least 6 x day low reps; completed today 3: Explained the need to work on PROM for optimal results with AROM 4: Passive exercises: use opposite hand to push fingers into palm; hold stretches at least 5 countsand repeat several times Skilled Intervention: Patient was educated in proper exercise technique and purpose for exercises. Skilled judgment was provided in selection of appropriate interventions. Provided written instruction for home exercise program to facilitate proper performance and compliance. Correct performance of therapeutic exercises was facilitated with verbal and visual cuing. Self-Penitentiary Management: 1: Seen in OT by PA; continue with dressing changes; some sutures removed; set up weekly OT; wear brace at night; 2: Swelling; continue with shoulder circles/pumps; continue with compression sleeves for fingers asneeded 3: Keep palm clean with either cotton sleeve or compression sleeve (E) 4: Continue splint at night and most of the day Skilled Intervention: Activity progression based on professional judgement. Correct performance of home program was facilitated with verbal and visual cueing. Billing Therapeutic Exercise Treatment Minutes: 30 Self-Care/Home Management Treatment Minutes: 15 Total Treatment Time Minutes (timed/untimed): 45 eGraldine RIZZO, CHT documented in this encounterChillicothe Hospital02-28-2023 History of Present illness Narrative* MATTHIAS Kelley - 06/30/2022 11:57 AM EST Episode Visit Count: 1 Therapist That Will Accept/Oversee The Plan Of Care: Trista Start of Care Date: 06/30/22 Onset Date: 06/25/22 Plan of Care Certification Date: 06/30/22 Next Certification Due Date: 08/29/22 Patient Identified by Name and Date of : Yes [facility] REHABILITATION AND SPORTS THERAPY OCCUPATIONAL THERAPY EVALUATION PLAN OF CARE: Assessment: Choco Maldonado presents with diagnosis of R Hand dupuytren release with R CTR that interferes with lifting, physical activities, cleaning, cooking, dressing, grooming, driving, feeding self, weight bearing, gripping, pinching, twisting, pulling, pushing, carrying . He presents with impairments in ADL's, independence in exercise, overall function, range of motion, sensation, soft tissue healing, symptom management, tissue tenderness, and wound healing. Patient became ill post dressing removal. Nurse called, layed supine and given ice/juice crackers; fully recovered prior to leaving; stated he doesn't do well with medical things and has faintedin the past. PROMIS (Patient-Reported Outcomes Measurement Information System) scores were reviewed and physicalfunction domain and self efficacy domain identified as within normal limits. Prognosis for therapy is Good due to: current objective clinical presentation . He will benefit from skilled therapy services to meet the goals established for this plan of care as noted below. Goals for Episode of Care created on 06/30/22 through 08/29/22 Patient will report a good understanding of diagnosis and OT recommendations for progression of program. Patient will demonstrate independence with ongoing home recommendations/exercise program throughouttherapy plan of care. Patient will improve function in Right hand in order to be able to perform basic self-care tasks. Patient will increase AROM of Right hand to WFL in order to be able to improve function for light functional tasks and prior functional tasks. Patient will independently demonstrate correct application of CUSTOM and PREFABRICATED orthosis andverbalize understanding of proper wear/care. Patient will report a good understanding of edema control, scar / wound management throughout therapy plan of care to promote non-adherent / non-tender soft tissue. Patient Goals: get hand back to functional use with as much extension as possible Planned Interventions, Frequency, and Duration: Current Frequency: 1x/week Duration: 8 weeks Total Number of Visits Planned: 8 Planned Treatment Interventions: Custom orthosis fabrication, Therapeutic exercise (25524), Self-alf management (14577) PLAN FOR NEXT VISIT: formal measurements of wrist and fingers; measure edema; check wound Patient demonstrates good understanding of plan of care and treatment. The above goals and plan of care were discussed and agreed upon by patient/family. SUBJECTIVE: Choco Maldonado is a 61 year old male seen today for s/p 5 days R Middle, Ring and Little Dupuytren's Release; to OT with bulky dressing on; here with ; Functional Limitations: lifting, physical activities, cleaning, cooking, dressing, grooming, driving, feeding self, weight bearing, gripping, pinching, twisting, pulling, pushing, carrying Prior Level of Function: Independent without limitations Patient Goals: get hand back to functional use with as much extension as possible Intake Information: Prescription present Previous Treatment: Injections , Occupational Therapy, Immobilizer/brace (xiaflex injection x 1 to all three fingers at the same time with minimal improvements) Relevant History Past Relevant Medical Conditions: Cardiac, Smoking History (valve issue being followed;) Right or Left Handed: Right 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 5 points is clinically meaningfully difference Percentiles provide an indication of how the patient's score ranks in relation to the general population. Higher percentile rankings indicate better function/quality of life. 50th percentile is the average of the general population and indicates half of respondents had a worse score. OBJECTIVE MEASURES WITH LEVEL OF FUNCTION: Hand Skin / Wound: Wound Description, Skin Description, Sutures Wound Description: Macerated (open palmar wound with macerated edges) Skin Description comments: finger wounds with sutures all healing well Edema Description: Severe (to be assessed next visit) Shoulder AROM: WFL Elbow AROM: WFL Right Hand AROM: (unable to test due to became ill post dressing removal) Sensation: Reports tingling or numbness (same as before surgery) UE AROM Right Hand AROM: (unable to test due to became ill post dressing removal) Education: Education Learning Preferences: Demonstration, Explanation, Performance, Printed Materials Barriers: None Learning/educational needs: Plan of Care, Home exercise program, Brace Fit Education Provided: Yes, see treatment interventions for education provided Education Provided To: Patient () Education Mode/Type: Demonstration, Explanation/Discussion, Literature/Printed Materials, Performance Response to Education/Teach Back: States/Identifies, Return Demonstration TREATMENT: OT Treatment Interventions : Self-Penitentiary Management, Custom Orthosis/Splint Fabrication Evaluation Self-Penitentiary Management: 1: OT removed post operative dressing using saline wound wash due to it sticking; 2: Educated on safe washing and avoiding creams 3: Dressing Changes: 2 x day; specifi instructions and supplies issued 9see home program) 4: Motion: encouraged finger motion IKE and to remove splint at least 3 x day to do these 5: Swelling: elevate arm, do shoulder circles/pumps on/off during the day Skilled Intervention: Activity progression based on professional judgement. Correct performance of home program was facilitated with verbal and visual cueing. Custom orthosis: L 3913 HFO w/out joints (short opponens, all CMC designs, C-bar, hand maldonado, hand gutter, hand trigger, anti-claw) Custom orthosis to provide immobilization, protection and support of surgical fingers into tolerable extension to promote healing. Patient was instructed in care of orthosis and wearing schedule Fulltime except when exercising / bathing. . Skilled Intervention: Clinical knowledge and skills required for custom orthotic fabrication and wearing schedule Home Program Assigned: 1: Wash gently with soap and water; no creams over incision sites 2: Gently pack yellow gauze over raw areas of wound only; then place cotton padding over open area,tape into place between fingers to help hold dressing in place; cover with cotton sleeves; Dressingchanges 2 x day with washing 3: Motion: try to move fingers into fist position and full straightening at least 3 x day 10 reps 4: Swelling: elevate arm, do shoulder circles/pumps on/off during the day Billing * Evaluation Moderate Complexity: 1 Unit Self-Care/Home Management Treatment Minutes: 30 * L 3913 HFO w/out joints (short opponens, all C[facility] designs, C-bar, hand maldonado, hand gutter, hand trigger, anti-claw) Quantity: 1 Fabrication time for custom splint (minutes): 15 Total Treatment Time Minutes (timed/untimed): 60 Geraldine Weston OT/L, CHT documented in this encounter[facility]23 NoteHNO ID: [id number] Author: Coby Hamilton MD Service: Anesthesiology Author Type: Anesthesiologist Type: Anesthesia Procedure Notes Filed: 07/06/2022 7:32 AM Note Text: ANESTHESIOLOGY PROCEDURE NOTE Peripheral Nerve Block General Information Procedure Start Time/Medication Administration: 06/25/2022 9:37 AM Procedure End time: 06/25/2022 9:44 AM Patient location during procedure: pre-op Timeout Performed Pre-procedure: timeout performed Consent Obtained: Yes Patient identity confirmed: arm band Reason for block: post-op pain management/at surgeon's request Staffing Anesthesiologist: Coby Hamilton MD Resident: Giovani Joshi MD Preparation Sterility Preparation: hand hygiene performed prior to procedure, sterile gloves, drapes, and procedure tray, surgical cap used, mask used, sterile drape used during line insertion, skin prep agent completely dried prior to procedure Procedure Details Patient Position: supine Monitoring: Pulse OX, EKG and NIBP Block Type Upper Extremity: axillary Approach: axillary Laterality: right Injection Technique: single-shot Ultrasound Guided: Yes Image in Chart: yes Local Infiltration: Yes Needle Needle Type: echogenic Needle Gauge: 21 G Needle Length: 100 mm Assessment Injection assessment: negative aspiration, no paresthesia on injection and incremental injection Medications Administered ropivacaine (PF) 5 mg/mL (0.5 %) injection (NAROPIN) - peripheral nerve block 20 mL - 06/25/2022 9:37:00 AM dexamethasone sodium phosphate injection (DECADRON) - peripheral nerve block 4 mg - 06/25/2022 9:37:00 AM SIGNATURE: Coby Hamilton MD PATIENT NAME: Choco Maldonado DATE: June 25, 2022 TIME: 9:46 AM CSN: [id number] Instructions* Patient Instructions* Mis Johnson APRN.SIGNAL SUPERVISOR - 06/08/2022 1:29 PM EST PATIENT PREOPERATIVE INSTRUCTIONS Randall Shah MD, PhD has scheduled you for your procedure at this surgery center: [facility]: [phone] --[address] [place] [address]. On your scheduled day of surgery, please report to Patient Registration, ground floor Please read below carefully for your personalized instructions. Dietary Restrictions: - No solid food after midnight. - You may have 12 ounces of clear liquids (water, clear juices such as apple juice or gatorade, carbonated beverages, clear tea, black coffee, jello) until 2 hours before scheduled arrival at facility. Medications: Unless instructed differently below, stay on all of your medications until your surgery. Approved medications to take the morning of surgery with a sip of water: none MANUEL/ARBs are to be held for 24 hours pre op Do not take Losartan morning of or evening before surgery. If you take any medications for erectile dysfunction-Cialis (Tadalafil), Levitra, Staxyn (Vardenafil) Viagra (Sildenenafil please do not take these for 48 hours before surgery. If you start any new medications after today's visit, please contact the surgeon's office. Blood Thinning Medications: - Stop NSAIDS (Ibuprofen, Advil, Aleve, Motrin, Celebrex, Mobic, etc.) 7 days before surgery, as directed by your surgeon. - Stop Aspirin 7 days before surgery, as directed by your surgeon. - Do NOT stop aspirin or other anticoagulants without consulting with your consumer affairs manager or prescribing physician. - Stop Vitamin E, ALL multi-vitamins, herbals and dietary supplements 14 days before surgery. - You may take Tylenol (Acetaminophen) or any of your pain medications that do not contain aspirin or NSAIDS as needed. Important Reminders: - If you use CPAP/BIPAP, bring the machine with you to the surgery center. - If you are prescribed inhalers for breathing, continue using them. - Candy, mints, and tobacco products are NOT permitted the morning of surgery. - Hearing aids, dentures and glasses may be worn the morning of surgery. - NO jewelry, body piercings, makeup, hairpins or contacts are to be worn the day of surgery. If you develop symptoms such as a fever, cold, or flu, or have other changes to your health within TWO DAYS of scheduled surgery or the morning of surgery, please contact the surgery center above. Personal Belongings: -Please have photo ID and insurance cards. -If you do not have a copy of advance directives on file with us, please bring a copy with you on the day of surgery. - Leave ALL valuables and money at home or with family members. For Outpatient Procedures: - YOU MUST HAVE A RESPONSIBLE ACCREDITED LEGAL SECRETARY TAKE YOU HOME. A SPOT WASHER OR FARM INSTRUCTOR CANNOT BE MADE A RESPONSIBLE ACCREDITED LEGAL SECRETARY. - We recommend that a responsible person stays with you overnight to take care of you. - You cannot stay in a hotel alone after outpatient surgery. You will not be permitted to have yoursurgery, if you do not have someone to take care of you. Arrival Time for Surgery: - The Surgery Center or hospital where you are having surgery will call the afternoon before surgery (or Wednesday for Wednesday surgery) with a scheduled arrival time. - If you have not heard by 4 pm, please contact the surgery center above. Please be aware that emergency situations arise, which may delay or change your surgical time. If this happens, we will notify you as soon as possible and regret any inconvenience. If you already have an Advance Directive, please fax a copy to [phone] or email to for it to be added to your chart. If you do not have an Advance Directive, you can find the appropriate form and more information at [email or web address]. We recommend that youcomplete the Advance Directive form found on the website and bring it with you the day of your surgery. It can be witnessed and scanned into your chart that day. Mis Johnson APRN.CNP documented in this encounterCh[facility]02-06-2023 History and physical note * Mis Johnson APRN.CNP - 06/08/2022 1:15 PM EST Surgeon: Randall Shah MD, PhD Type of surgery FASCIECTOMY, PALM ONLY, W/ OR W/O Z-PLASTY, OTHER LOCAL TISSUE REARRANGEMENT, OR SKIN GRAFTING Patient scheduled for surgery on 06/25/22 . Surgery Location: [facility] Diagnosis: Pre-op evaluation (primary encounter diagnosis) Primary hypertension Svt (supraventricular tachycardia) (hcc) Mixed hyperlipidemia Gastroesophageal reflux disease, unspecified whether esophagitis present Polycythemia, secondary Aortic valve insufficiency, etiology of cardiac valve disease unspecified Tobacco use Pulse [pt unable to palpate radial pulse[ Ht 6' 2 (1.88m) Wt 177 lb (80.3kg) BMI 22.72 kg/(m^2). H&P completed: Smiley Oliveira MD Cardiology 05/27/22 Prior Cardiac Testing EKG Assessment and Plan: 61 years old with prior history of hypertensive heart disease and supraventricular tachycardia Hypertension Well-controlled on current medical therapy we will continue the losartan 2. Supraventricular tachycardia Rare few episodes If needed calcium channel blockers will be indicated In addition calcium channel blockers could help the SVT maybe will help reduce episodes of migrainepatient is complaining about 3. Migraine headaches Managed by primary physician 4. Preoperative evaluation Patient with Dupuytren contracture he is getting need surgery on his hand He is cleared for his surgery with mild risk of cardiac event Follow up planning: ONE YEAR Electronically signed by Smiley Oliveira MD on May 27, 2022, 1:56 PM The above note was partially created using a dictation recognition software. A reasonable attempt has been made to correct any errors. Social History Tobacco Use Smoking status: Every Day Packs/day: 1.00 Years: 35.00 Pack years: 35.00 Types: Cigarettes Start date: 02/11/1981 Smokeless tobacco: Never Vaping Use Vaping Use: Never used Substance Use Topics Alcohol use: Not Currently Comment: 2-3 drinks per day 5 days per week Drug use: No meloxicam (MOBIC) 15 mg tablet^Take 1 tablet by mouth once daily.^Disp: 30 tablet^Rfl: 1 amitriptyline (ELAVIL) 25 mg tablet^Take 1 tablet by mouth daily at bedtime.^Disp: ^Rfl: tiZANidine (ZANAFLEX) 4 mg tablet^Take 4 mg by mouth at bedtime as needed.^Disp: ^Rfl: losartan (COZAAR) 25 mg tablet^Take 1 tablet by mouth once daily.^Disp: 30 tablet^Rfl: 5 fremanezumab-vfrm (AJOVY AUTOINJECTOR) 225 mg/1.5 mL auto-injector^Ajovy 225 mg/1.5 mL subcutaneousauto-injector Inject 1.5 mL subcutaneously once a month^Disp: ^Rfl: topiramate (TOPAMAX) 50 mg tablet^Take 50 mg by mouth as needed.^Disp: ^Rfl: rimegepant (NURTEC ODT) 75 mg disintegrating tablet^Nurtec ODT 75 mg disintegrating tablet Take 1 tab under tongue at onset of migraine. Max 1 in 24 hours.^Disp: ^Rfl: SUMAtriptan (IMITREX) 50 mg tablet^^Disp: ^Rfl: FLUoxetine (PROZAC) 40 mg capsule^Take 1 capsule by mouth once daily.^Disp: 30 capsule^Rfl: 5 omeprazole (PRILOSEC) 20 mg capsule^Take 1 capsule by mouth twice daily before meals. 1/2 hr beforemeal.^Disp: 180 capsule^Rfl: 4 (Patient taking differently: Take 20 mg by mouth as needed. 1/2 hr before meal.) aspirin, enteric coated (ASPIRIN, ENTERIC COATED) 81 mg EC tablet^Take 1 tablet by mouth once daily.^Disp: 100 tablet^Rfl: 0 ixekizumab (TALTZ) 80 mg/mL syringe^Inject 80 mg subcutaneously once every month. ^Disp: ^Rfl: acetaminophen (TYLENOL) 325 mg tablet^Take 650 mg by mouth every 6 hours as needed.^Disp: ^Rfl: ALLERGIES Allergen Reactions Verapamil Rash COVID VACCINATION STATUS: Fully vaccinated VIDEO EXAM: (if completed, performed via video enabled technology) GENERAL: alert and appropriate, in no distress, well-hydrated,and interactive SKIN: no rash noted HEAD: normocephalic, no abnormality or lesion noted EYES: no injection EARS: external ears normal NOSE: external nose normal without rhinorrhea OROPHARYNX: moist mucus membranes, lips, teeth and gums are without obvious lesion NECK: full ROM, no cervical LNs noted RESPIRATORY: breathing non-labored and no grunting/flaring/retractions CHEST: equal chest rise with normal respiratory effort HEART: Pt not able to palpate radial or carotid pulses. Capillary refill < 3 seconds in BL upper extremities. ABDOMEN: soft and non-tender EXTREMITIES: no reported LE edema per pt NEUROLOGIC: no obvious deficit Laboratory and Testing: Lab Value Units Date High Low HB 16.5 g/dL 05/01/2022 17.0 13.0 HCT 53.3 % 05/01/2022 51.0 39.0 WBC 11.42 k/uL 05/01/2022 11.00 3.70 PLT 349 k/uL 05/01/2022 400 150 NA 137 mmol/L 05/13/2022 144 136 K 5.1 mmol/L 05/13/2022 5.1 3.7 GLUC 68 mg/dL 05/13/2022 99 74 BUN 14 mg/dL 05/13/2022 24 9 CREAT 0.88 mg/dL 05/13/2022 1.22 0.73 PTSEC No results within date range. INR No results within date range. APTT No results within date range. ALT 18 U/L 05/11/2022 54 10 AST 27 U/L 05/11/2022 40 14 TBILI 0.4 mg/dL 05/11/2022 1.3 0.2 TSH No results within date range. Lab Value Units Date High Low HCGQT No results within date range. UHCG No results within date range. HCG, BODY* No results within date range. Lab Value Units Date High Low ABORHD No results within date range. ABSCREEN No results within date range. No results found for: HBA1C EKG READING: Confirmed - done in consumer affairs manager office reading noted Narrative Sinus rhythm HR 74 bpm Qrs 88 ms Qtc 412 ms 05/27/22 OTHER TESTS: Echo: Date: 11/21, Results: Impression CONCLUSIONS: - Exam indication: Routine surveillance of moderate or severe valvular regurgitation (<1yr) - The left ventricle is normal in size. Left ventricular systolic function is normal. EF = 65 5% (visual est.) Grade I left ventricular diastolic dysfunction. - The right ventricle is normal in size. Right ventricular systolic function is normal. - There are no significant valvular abnormalities. - Exam was compared with the prior echocardiographic exam performed on 07/22/2020 (Stress). THESIOLOGY REVIEW: MOUTH OPENING/TMJ : Full jaw ROM MICROGNATHIA/OVERBITE: no MP SCORE: MP 3 UPPER LIP BITE TEST: Class II - Lower incisors can bite the upper lip below the brandie line DENTITION: Intact and broken molars THYROMENTAL DIST: WNL SHORT NECK: No NECK FLEX: Full ROM NECK EXTENSION: Full ROM INTUBATION HISTORY: history of general anesthesia without difficulty ADVERSE ANESTHESIA EVENT: no history of adverse event ANESTHETIC OPTIONS: Final anesthesia management options will be discussed on day of surgery. PAIN MANAGEMENT OPTIONS: Final pain management plan will be discussed on the day of surgery. OPTIMIZATION STATUS: Patient optimized for OR, pending DOS review. ASA Class: 2 No recent coughs, colds, fevers or chills Exercise: walks dogs daily for 10 minutes per session USMAN screen HTN age > 50 male Stop Bang score 3 Mis Johnson APRN.CNP June 08, 2022 1:23 PM documented in this encounterCh[facility]01-25-2023 History of Present illness Narrative* Smiley Oliveira MD - 05/27/2022 1:56 PM EST Images from the original note were not included. Smiley Oliveira MD Interventional Cardiology [address] [place], [place] [id number] Chief Complaint Patient presents with: CARD Follow Up Annual: SVT HISTORY OF PRESENT ILLNESS: Mr. Maldonado is a 61 year old male seen in my office for today for follow-up patient with prior history of hypertensive heart disease and recurrent supraventricular tachycardia Cardiac authorization in 2020 shows nonobstructive mild coronary artery disease medical therapy is recommended This episodes of supraventricular tachycardia short-lived His major complaint is a migraine headache Cardiac Risk Factors age (male over 45, female over 55), hyperlipidemia, hypertension PAST MEDICAL HISTORY Diagnosis Date Aortic insufficiency Bursitis of elbow left Coronary artery disease mild nonobstructive Diverticulitis Migraines Palpitations Pinched nerve 11/04/2020 low back Psoriasis Raynaud disease SVT (supraventricular tachycardia) (HCC) Tobacco abuse PAST SURGICAL HISTORY Procedure Laterality Date COLONOSCOPY FLX DX W/COLLJ SPEC WHEN PFRMD 05/23/2014 Colonoscopy COLONOSCOPY FLX DX W/COLLJ SPEC WHEN PFRMD 09/24/2017 Colonoscopy COLONOSCOPY FLX DX W/COLLJ SPEC WHEN PFRMD 04/16/2021 ESOPHAGOGASTRODUODENOSCOPY TRANSORAL DIAGNOSTIC 05/23/2014 EGD ESOPHAGOGASTRODUODENOSCOPY TRANSORAL DIAGNOSTIC 08/15/2014 EGD HEMORRHOIDECTOMY INT & XTRNL 2/> COLUMN/FAHEEM 10/01/2017 left posterior PAST SURGICAL HISTORY OF 2008 Pain injections lumbar RT/LT HEART CATHETERS 08/09/2020 [facility] FAMILY HISTORY Problem Relation Age of Onset Breast Cancer Mother Diabetes Father Heart Father other (Raynauds) Daughter other (Raynauds) Son Diabetes Maternal Grandfather Social History Tobacco Use Smoking status: Every Day Packs/day: 0.50 Years: 39.00 Pack years: 19.50 Types: Cigarettes Start date: 02/11/1981 Smokeless tobacco: Never Tobacco comments: Pt has cut back to 1/2 pack daily. Vaping Use Vaping Use: Never used Substance Use Topics Alcohol use: Yes Alcohol/week: 14.0 standard drinks Types: 14 Cans of Beer (12oz) per week Comment: couple drinks per day Drug use: No ALLERGIES Allergen Reactions Verapamil Rash Medications: Current Outpatient Medications Medication Sig Dispense Refill amitriptyline (ELAVIL) 25 mg tablet Take 1 tablet by mouth daily at bedtime. meloxicam (MOBIC) 7.5 mg tablet Take 7.5 mg by mouth as needed. tiZANidine (ZANAFLEX) 4 mg tablet Take 4 mg by mouth at bedtime as needed. fremanezumab-vfrm (AJOVY AUTOINJECTOR) 225 mg/1.5 mL auto-injector Ajovy 225 mg/1.5 mL subcutaneousauto-injector Inject 1.5 mL subcutaneously once a month rimegepant (NURTEC ODT) 75 mg disintegrating tablet Nurtec ODT 75 mg disintegrating tablet Take 1 tab under tongue at onset of migraine. Max 1 in 24 hours. FLUoxetine (PROZAC) 40 mg capsule Take 1 capsule by mouth once daily. 30 capsule 5 omeprazole (PRILOSEC) 20 mg capsule Take 1 capsule by mouth twice daily before meals. 1/2 hr beforemeal. (Patient taking differently: Take 20 mg by mouth as needed. 1/2 hr before meal.) 180 capsule 4 aspirin, enteric coated (ASPIRIN, ENTERIC COATED) 81 mg EC tablet Take 1 tablet by mouth once daily. 100 tablet 0 ixekizumab (TALTZ) 80 mg/mL syringe Inject 80 mg subcutaneously once every month. acetaminophen (TYLENOL) 325 mg tablet Take 650 mg by mouth every 6 hours as needed. losartan (COZAAR) 25 mg tablet Take 1 tablet by mouth once daily. 30 tablet 5 topiramate (TOPAMAX) 50 mg tablet Take 50 mg by mouth q 24 HR. (Patient not taking: Reported on 05/27/2022) amitriptyline (ELAVIL) 50 mg tablet q 24 HR. (Patient not taking: Reported on 05/27/2022) ondansetron (ZOFRAN) 8 mg tablet ondansetron HCl 8 mg tablet Take 1 tablet twice a day by oral route as needed. (Patient not taking: Reported on 05/27/2022) SUMAtriptan (IMITREX) 50 mg tablet take 1 tablet by oral route as needed at onset of migraine; may repeat dose in 2 hours if needed; limit 200 mg in 24 hours (Patient not taking: Reported on 05/27/2022) amitriptyline (ELAVIL) 10 mg tablet Take 10 mg by mouth daily at bedtime. For 2 weeks then to 25mg per neuro (Patient not taking: Reported on 05/27/2022) Current Facility-Administered Medications Medication Dose Route Frequency Provider Last Rate Last Admin perflutren lipid microspheres 1.3 mL in NaCl (PF) 0.9% 10 mL injection (DEFINITY) INTRAVENOUS DIRECTED PRN Linda Parish MD sodium chloride 0.9 % (flush) 10 mL (BD POSIFLUSH) 10 mL INTRAVENOUS DIRECTED PRN Linda Parish MD Review of Systems Constitutional: Negative for chills, diaphoresis, fever, malaise/fatigue and weight loss. HENT: Negative for congestion, ear discharge, ear pain, hearing loss, nosebleeds, sinus pain, sore throat and tinnitus. Eyes: Negative for blurred vision, double vision, photophobia, pain, discharge and redness. Respiratory: Negative for cough, hemoptysis, sputum production, shortness of breath, wheezing and stridor. Cardiovascular: Positive for palpitations. Negative for chest pain, orthopnea, claudication, leg swelling and PND. Gastrointestinal: Negative for abdominal pain, blood in stool, constipation, diarrhea, heartburn, melena, nausea and vomiting. Genitourinary: Negative for dysuria, flank pain, frequency, hematuria and urgency. Musculoskeletal: Negative for back pain, falls, joint pain, myalgias and neck pain. Skin: Negative for itching and rash. Neurological: Negative for dizziness, tingling, tremors, sensory change, speech change, focal weakness, seizures, loss of consciousness, weakness and headaches. Endo/Heme/Allergies: Negative for environmental allergies and polydipsia. Does not bruise/bleed easily. Psychiatric/Behavioral: Negative for depression, hallucinations, memory loss, substance abuse and suicidal ideas. The patient is not nervous/anxious and does not have insomnia. Physical Examination: Vitals:BP 149/72 Pulse 80 Ht 6' 2 (1.88m) Wt 175 lb (79.4kg) SpO2 96% BMI 22.46 kg/(m^2). BP w/Orthostatic Vitals Date and Time Orthostatic BP Orthostatic Pulse BP Pulse BP Position BP Site BP Cuff Size 05/27/22 1311 -- -- 149/72 80 Sitting Left Arm Regular Adult Last 2 Encounter Wt Readings: Date: Wt: 05/27/2022 175 lb (79.4 kg) 05/01/2022 176 lb (79.8 kg) Physical Exam Constitutional: General: He is not in acute distress. Appearance: He is not diaphoretic. HENT: Head: Normocephalic and atraumatic. Right Ear: External ear normal. Left Ear: External ear normal. Nose: Nose normal. Mouth/Throat: Pharynx: Oropharynx is clear. Eyes: General: Right eye: No discharge. Left eye: No discharge. Conjunctiva/sclera: Conjunctivae normal. Pupils: Pupils are equal, round, and reactive to light. Cardiovascular: Rate and Rhythm: Normal rate and regular rhythm. Heart sounds: Normal heart sounds, S1 normal and S2 normal. No murmur heard. No friction rub. No gallop. No S3 or S4 sounds. Pulmonary: Effort: Pulmonary effort is normal. No respiratory distress. Breath sounds: Normal breath sounds. No wheezing or rales. Chest: Chest wall: No tenderness. Abdominal: General: Bowel sounds are normal. Musculoskeletal: General: Normal range of motion. Cervical back: Normal range of motion and neck supple. Skin: General: Skin is warm and dry. Neurological: General: No focal deficit present. Mental Status: He is alert and oriented to person, place, and time. Psychiatric: Mood and Affect: Mood normal. Pertinent Labs: CBC: Hemoglobin (g/dL) Date Value 05/01/2022 16.5 05/26/2021 15.6 Hematocrit (%) Date Value 05/01/2022 53.3 05/26/2021 51.0 WBC (k/uL) Date Value 05/01/2022 11.42 03/21/2021 12.31 Platelet Count (k/uL) Date Value 05/01/2022 349 03/21/2021 423 BMP: Glucose (mg/dL) Date Value 05/13/2022 68 03/21/2021 86 Potassium (mmol/L) Date Value 05/13/2022 5.1 03/21/2021 4.0 Sodium (mmol/L) Date Value 05/13/2022 137 03/21/2021 134 Chloride (mmol/L) Date Value 05/13/2022 100 03/21/2021 102 CO2 (mmol/L) Date Value 05/13/2022 23 03/21/2021 21 Creatinine (mg/dL) Date Value 05/13/2022 0.88 03/21/2021 0.72 BUN (mg/dL) Date Value 05/13/2022 14 03/21/2021 14 Anion Gap (mmol/L) Date Value 05/13/2022 14 03/21/2021 11 Calcium (mg/dL) Date Value 03/21/2021 9.3 Calcium, Total (mg/dL) Date Value 05/13/2022 9.7 INR: Lipid Profile: Cholesterol, Total Date Value Ref Range Status 04/09/2021 226 (H) <200 mg/dL Final Comment: <200 mg/dL, Desirable 200-239 mg/dL, Borderline high >239 mg/dL, High HDL Cholesterol Date Value Ref Range Status 04/09/2021 29 (L) >39 mg/dL Final Comment: 40-59 mg/dL, Acceptable >59 mg/dL, High: Negative risk factor for coronary heart disease <40 mg/dL, Low: Positive risk factor for coronary heart disease LDL Cholesterol Date Value Ref Range Status 04/09/2021 123 (H) <100 mg/dL Final Comment: <100 mg/dL, Optimal 100-129 mg/dL, Near optimal/above optimal 130-159 mg/dL, Borderline high 160-189 mg/dL, High >189 mg/dL, Very high Secondary prevention optimal LDL Cholesterol levels are recommended to be < 70 mg/dL Triglyceride Date Value Ref Range Status 04/09/2021 372 (H) <150 mg/dL Final Comment: <150 mg/dL, Normal 150-199 mg/dL, Borderline high 200-499 mg/dL, High >499 mg/dL, Very high Hemoglobin A1C: No results found for: HGBA1C TSH: No results found for: TSHREFL Prior Cardiac Testing EKG Assessment and Plan: 61 years old with prior history of hypertensive heart disease and supraventricular tachycardia Hypertension Well-controlled on current medical therapy we will continue the losartan 2. Supraventricular tachycardia Rare few episodes If needed calcium channel blockers will be indicated In addition calcium channel blockers could help the SVT maybe will help reduce episodes of migrainepatient is complaining about 3. Migraine headaches Managed by primary physician 4. Preoperative evaluation Patient with Dupuytren contracture he is getting need surgery on his hand He is cleared for his surgery with mild risk of cardiac event Follow up planning: ONE YEAR Electronically signed by Smiley Oliveira MD on May 27, 2022, 1:56 PM The above note was partially created using a dictation recognition software. A reasonable attempt has been made to correct any errors. documented in this encounterChillic[facility]01-25-2023 Nurse Note* Jennifer Haney MA - 05/27/2022 1:17 PM EST No cardiac complaints today. Jennifer Haney MA documented in this encounterChillicothe [facility]12-30-2022 History of Present illness Narrative* Linda Parish MD - 05/01/2022 1:38 PM EST Patient presents with: Recheck: Diverticulitis follow up- stomach is still bothering him; no diarrhea/blood in stool HPI: Patient presents today for office visit for follow up. Seein in and 02/21 for sigmoid diverticulitis. Has just had colonscopy in 04/22. At last visit, had responed well to cefdinir and flagyl. Has been fine. Was moving the bowels this am and felt like he had mild discomfort but now is seems better. No nausea or vomiting. No bloody or black stools. No fever. No urinary issues. Appetite has been ok. BM was ok. MEDICATIONS: Current Outpatient Medications Medication Sig amitriptyline (ELAVIL) 50 mg tablet q 24 HR. rimegepant (NURTEC ODT) 75 mg disintegrating tablet Nurtec ODT 75 mg disintegrating tablet Take 1 tab under tongue at onset of migraine. Max 1 in 24 hours. ondansetron (ZOFRAN) 8 mg tablet ondansetron HCl 8 mg tablet Take 1 tablet twice a day by oral route as needed. losartan (COZAAR) 25 mg tablet Take 1 tablet by mouth once daily. SUMAtriptan (IMITREX) 50 mg tablet take 1 tablet by oral route as needed at onset of migraine; may repeat dose in 2 hours if needed; limit 200 mg in 24 hours FLUoxetine (PROZAC) 40 mg capsule Take 1 capsule by mouth once daily. omeprazole (PRILOSEC) 20 mg capsule Take 1 capsule by mouth twice daily before meals. 1/2 hr beforemeal. (Patient taking differently: Take 20 mg by mouth as needed. 1/2 hr before meal.) aspirin, enteric coated (ASPIRIN, ENTERIC COATED) 81 mg EC tablet Take 1 tablet by mouth once daily. ixekizumab (TALTZ) 80 mg/mL syringe Inject 80 mg subcutaneously once every month. acetaminophen (TYLENOL) 325 mg tablet Take 650 mg by mouth every 6 hours as needed. fremanezumab-vfrm ([employer] AUTOINJECTOR) 225 mg/1.5 mL auto-injector Ajovy 225 mg/1.5 mL subcutaneousauto-injector Inject 1.5 mL subcutaneously once a month topiramate (TOPAMAX) 50 mg tablet Take 50 mg by mouth q 24 HR. amitriptyline (ELAVIL) 10 mg tablet Take 10 mg by mouth daily at bedtime. For 2 weeks then to 25mg per neuro Current Facility-Administered Medications Medication Dose Route Frequency perflutren lipid microspheres 1.3 mL in NaCl (PF) 0.9% 10 mL injection (DEFINITY) INTRAVENOUS DIRECTED PRN sodium chloride 0.9 % (flush) 10 mL (BD POSIFLUSH) 10 mL INTRAVENOUS DIRECTED PRN ALLERGIES: ALLERGIES Allergen Reactions Verapamil Rash PAST MEDICAL HISTORY Diagnosis Date Aortic insufficiency Bursitis of elbow left Diverticulitis Migraines Pinched nerve 11/04/2020 low back Psoriasis Raynaud disease Tobacco abuse PAST SURGICAL HISTORY Procedure Laterality Date COLONOSCOPY FLX DX W/COLLJ SPEC WHEN PFRMD 05/23/2014 Colonoscopy COLONOSCOPY FLX DX W/COLLJ SPEC WHEN PFRMD 09/24/2017 Colonoscopy COLONOSCOPY FLX DX W/COLLJ SPEC WHEN PFRMD 04/16/2021 ESOPHAGOGASTRODUODENOSCOPY TRANSORAL DIAGNOSTIC 05/23/2014 EGD ESOPHAGOGASTRODUODENOSCOPY TRANSORAL DIAGNOSTIC 08/15/2014 EGD HEMORRHOIDECTOMY INT & XTRNL 2/> COLUMN/FAHEEM 10/01/2017 left posterior PAST SURGICAL HISTORY OF 2008 Pain injections lumbar RT/LT HEART CATHETERS 08/09/2020 [facility] FAMILY HISTORY Problem Relation Age of Onset Breast Cancer Mother Diabetes Father Heart Father other (Raynauds) Daughter other (Raynauds) Son Diabetes Maternal Grandfather Social History Tobacco Use Smoking status: Every Day Packs/day: 1.00 Years: 39.00 Pack years: 39.00 Types: Cigarettes Start date: 02/11/1981 Smokeless tobacco: Never Tobacco comments: Pt has cut back to 1/2 pack daily. Vaping Use Vaping Use: Never used Substance Use Topics Alcohol use: Yes Alcohol/week: 14.0 standard drinks Types: 14 Cans of Beer (12oz) per week Comment: couple drinks per day Drug use: No Reviewed current medications, allergies, past medical history, surgical history, family history andsocial history today. REVIEW OF SYSTEMS All other reviewed and negative other than HPI. VITALS: BP 126/72 Pulse 77 Resp 18 Wt 79.8 kg (176 lb) SpO2 99% BMI 23.22 kg/m Last 4 Encounter Wt Readings: Date: Wt: 05/01/2022 79.8 kg (176 lb) 02/05/2022 76.7 kg (169 lb) 01/30/2022 77.1 kg (170 lb) 01/28/2022 77.6 kg (171 lb) PHYSICAL EXAMINATION: General appearance: Well appearing, alert, in no acute distress, well-hydrated, well nourished. Skin: Skin color, texture, turgor normal, no suspicious rashes or lesions Head: Normocephalic, no masses, lesions, tenderness or abnormalities Lungs: Lungs clear to auscultation. No wheezing, rhonchi, rales Heart: RRR without murmur, gallop, or rubs. No ectopy Abdomen: bs positive. No rebound or guarding. Non tender. Extremities: No deformities, edema, skin discoloration, clubbing or cyanosis. Good capillary refill. Musculoskeletal: No joint swelling, deformity, or tenderness ASSESSMENT/PLAN: 1. Abdominal pain, unspecified abdominal location - ICD9: 789.00, ICD10: R10.9 - seems to better now. Red flags for re-assessment reviewed with patient in detail. Call with update on Wednesday - CBC + DIFF - URINALYSIS, WITH MICROSCOPIC - URINE CULTURE Linda Parish MD documented [facility] History of Present illness Narrative* Randall Shah MD, PhD - 03/16/2022 3:03 PM EST March 16, 2022 CHIEF COMPLAINT: Dupuytren's contracture HPI: Choco Maldonado is a 61 year old RHD male who presents to clinic with contractures of his right middle, ring, and some of the small finger. He has seen Dr. Gonzalez and had a Xiaflex injeciton with manipulation on 10/29/2020 but unfortunately, his contracture recurred a few months later. Now he would like to discuss surgical intervention. Referred by: Dr. Anam Gonzalez ASSESSMENT: 61 year old male with Dupuytren's contractures of his right long MCP and PIP joints, ring finger MCP and PIP joints, and mild of the small finger MCP joint. M72.0 Dupuytren's disease of palm (primary encounter diagnosis) PLAN: We reviewed the etiology and natural history of Dupuytren's contracture. We discussed varioustreatment strategies including observation, needle aponeurotomy, collagenase injections, or surgical fasciectomy. We discussed how this is a benign condition and the reason to intervene is when it islimiting functionality. At this point, he has opted for surgical partial palmar fasciectomy where we will remove some palmar cords for the small, ring and long fingers then have incisions out on the ring and long fingers to excise spiral cords maribel the PIP joints of those two fingers. OBJECTIVE: There were no vitals filed for this visit. There is no height or weight on file to calculate BMI. General: NAD, Eyes: Pupils not pinpointed, not overly dilated, anicteric Neck: Full range of motion Cardiovascular: Palpable pulse and brisk capillary refill (<2 sec) to all fingers Lymphatic: Inspection of the arm/hand reveals no lymphedema and palpation of epitrochlear nodes is unremarkable. Respiratory: Respirations even and unlabored, no audible wheezing Integumentary: Inspection of skin reveals no breaks or obvious lesions except for those noted below. Neuro: Intact sensation to light touch over the median, ulnar, and radial nerve distributions. Psychiatric: No obvious anxiety, well kempt, normal affect. Appropriate response to pain. Musculoskeletal: Able to flex and extend all fingers at the DIP and PIP. Able to retropulse the thumb, abduct all fingers against resistance. 20 deg MCP SF contracture, 60deg MCP contractures of the ring and long and 45 deg contractures of the PIP of the ring and long fingers IMAGING: Radiographs of the right hand were obtained on 06/18/2021 which were personally reviewed byme and demonstrate some diffuse arthritic changes. Supporting Subjective Information Below: Past Medical History: PAST MEDICAL HISTORY Diagnosis Date Aortic insufficiency Bursitis of elbow left Diverticulitis Migraines Pinched nerve 11/04/2020 low back Psoriasis Raynaud disease Tobacco abuse Past Surgical History: PAST SURGICAL HISTORY Procedure Laterality Date COLONOSCOPY FLX DX W/COLLJ SPEC WHEN PFRMD 05/23/2014 Colonoscopy COLONOSCOPY FLX DX W/COLLJ SPEC WHEN PFRMD 09/24/2017 Colonoscopy COLONOSCOPY FLX DX W/COLLJ SPEC WHEN PFRMD 04/16/2021 ESOPHAGOGASTRODUODENOSCOPY TRANSORAL DIAGNOSTIC 05/23/2014 EGD ESOPHAGOGASTRODUODENOSCOPY TRANSORAL DIAGNOSTIC 08/15/2014 EGD HEMORRHOIDECTOMY INT & XTRNL 2/> COLUMN/FAHEEM 10/01/2017 left posterior PAST SURGICAL HISTORY OF 2008 Pain injections lumbar RT/LT HEART CATHETERS 08/09/2020 [facility] Family History: FAMILY HISTORY Problem Relation Age of Onset Breast Cancer Mother Diabetes Father Heart Father other (Raynauds) Daughter other (Raynauds) Son Diabetes Maternal Grandfather Medications: Current Outpatient Medications Medication Sig Dispense Refill topiramate (TOPAMAX) 50 mg tablet Take 50 mg by mouth q 24 HR. amitriptyline (ELAVIL) 50 mg tablet q 24 HR. rimegepant (NURTEC ODT) 75 mg disintegrating tablet Nurtec ODT 75 mg disintegrating tablet Take 1 tab under tongue at onset of migraine. Max 1 in 24 hours. ondansetron (ZOFRAN) 8 mg tablet ondansetron HCl 8 mg tablet Take 1 tablet twice a day by oral route as needed. losartan (COZAAR) 25 mg tablet Take 1 tablet by mouth once daily. 30 tablet 5 SUMAtriptan (IMITREX) 50 mg tablet take 1 tablet by oral route as needed at onset of migraine; may repeat dose in 2 hours if needed; limit 200 mg in 24 hours amitriptyline (ELAVIL) 10 mg tablet Take 10 mg by mouth daily at bedtime. For 2 weeks then to 25mg per neuro FLUoxetine (PROZAC) 40 mg capsule Take 1 capsule by mouth once daily. 30 capsule 5 omeprazole (PRILOSEC) 20 mg capsule Take 1 capsule by mouth twice daily before meals. 1/2 hr beforemeal. (Patient taking differently: Take 20 mg by mouth as needed. 1/2 hr before meal.) 180 capsule 4 aspirin, enteric coated (ASPIRIN, ENTERIC COATED) 81 mg EC tablet Take 1 tablet by mouth once daily. 100 tablet 0 ixekizumab (TALTZ) 80 mg/mL syringe Inject 80 mg subcutaneously once every month. acetaminophen (TYLENOL) 325 mg tablet Take 650 mg by mouth every 6 hours as needed. Current Facility-Administered Medications Medication Dose Route Frequency Provider Last Rate Last Admin perflutren lipid microspheres 1.3 mL in NaCl (PF) 0.9% 10 mL injection (DEFINITY) INTRAVENOUS DIRECTED PRN Linda Parish MD sodium chloride 0.9 % (flush) 10 mL (BD POSIFLUSH) 10 mL INTRAVENOUS DIRECTED PRN Linda Parish MD Allergies: ALLERGIES Allergen Reactions Verapamil Rash ROS: General (negative for fatigue) HEENT (negative for headache, earache, recent vision changes, sinus pain, sore throat) Respiratory (no recent shortness of breath, hemoptysis) CV (negative for chest tightness, palpitations) GI (negative for change in bowel habits) Hematologic (no spontaneous bleeding, bruising) Endocrine (no heat or cold intolerance) Robert Shah MD, PhD Hand & Upper Extremity Orthopaedic Staff Surgeon documented in this encounter[facility]10-27-2022 History of Present illness Narrative* Inocencio Gonzalez MD - 02/26/2022 3:39 PM EDT Inocencio Gonzalez MD Department of Orthopaedics Orthopaedics [address] [facility] [id number] Dept: [phone] Dept February 26, 2022 CHIEF COMPLAINT: Established Patient and Musculoskeletal Problem of the Right Hand HPI Patient here today for right middle and ring finger contractures. He did have Xiaflex injectionand manipulation 10/29/2020. Patient reports the contracture stated back a couple months ago. He denies any pain. He is right hand dominant, not currently working. ASSESSMENT: M72.0 Dupuytren's disease of palm (primary encounter diagnosis) PLAN: Recurrence only 18 months after Xiaflex. He has quite a bit of diffuse Dupuytren's changes. I wouldlike him to see Dr. Shah for possible surgical considerations. Mr. Choco Maldonado was advised as to contrast therapies and/or to take analgesics/anti-inflammatories as needed and all contraindications were reviewed. OBJECTIVE: Mr. Choco Maldonado is a pleasant 61 year old in no apparent distress. Gen:There were no vitals taken for this visit. nl development, non obese, no deformities ENT: Normocephalic, normal hearing, moist mucosa CV: Pulses:Radial= 2+ and symmetric, capillary refill < 2 secs, no peripheral edema/varicosities Skin: no rash, bruising or lesions. Good turgor. Psych: cooperative and appropriate, alert and oriented x 3, good mood and affect. Musculoskeletal: Middle finger, MCP joint with 30 degrees, PIP with 30 degrees.; Ring finger MCP with 10 degrees andPIP with 50 to 60 degrees of contracture. Diffuse nodularity in multiple locations throughout the hand. Imaging: deferred Supporting Subjective Information Below: Past Surgical History: PAST SURGICAL HISTORY Procedure Laterality Date COLONOSCOPY FLX DX W/COLLJ SPEC WHEN PFRMD 05/23/2014 Colonoscopy COLONOSCOPY FLX DX W/COLLJ SPEC WHEN PFRMD 09/24/2017 Colonoscopy COLONOSCOPY FLX DX W/COLLJ SPEC WHEN PFRMD 04/16/2021 ESOPHAGOGASTRODUODENOSCOPY TRANSORAL DIAGNOSTIC 05/23/2014 EGD ESOPHAGOGASTRODUODENOSCOPY TRANSORAL DIAGNOSTIC 08/15/2014 EGD HEMORRHOIDECTOMY INT & XTRNL 2/> COLUMN/FAHEEM 10/01/2017 left posterior PAST SURGICAL HISTORY OF 2008 Pain injections lumbar RT/LT HEART CATHETERS 08/09/2020 [facility] Medications: Current Outpatient Medications Medication Sig topiramate (TOPAMAX) 50 mg tablet Take 50 mg by mouth q 24 HR. amitriptyline (ELAVIL) 50 mg tablet q 24 HR. rimegepant (NURTEC ODT) 75 mg disintegrating tablet Nurtec ODT 75 mg disintegrating tablet Take 1 tab under tongue at onset of migraine. Max 1 in 24 hours. losartan (COZAAR) 25 mg tablet Take 1 tablet by mouth once daily. amitriptyline (ELAVIL) 10 mg tablet Take 10 mg by mouth daily at bedtime. For 2 weeks then to 25mg per neuro FLUoxetine (PROZAC) 40 mg capsule Take 1 capsule by mouth once daily. omeprazole (PRILOSEC) 20 mg capsule Take 1 capsule by mouth twice daily before meals. 1/2 hr beforemeal. (Patient taking differently: Take 20 mg by mouth as needed. 1/2 hr before meal.) aspirin, enteric coated (ASPIRIN, ENTERIC COATED) 81 mg EC tablet Take 1 tablet by mouth once daily. ixekizumab (TALTZ) 80 mg/mL syringe Inject 80 mg subcutaneously once every month. acetaminophen (TYLENOL) 325 mg tablet Take 650 mg by mouth every 6 hours as needed. ondansetron (ZOFRAN) 8 mg tablet ondansetron HCl 8 mg tablet Take 1 tablet twice a day by oral route as needed. SUMAtriptan (IMITREX) 50 mg tablet take 1 tablet by oral route as needed at onset of migraine; may repeat dose in 2 hours if needed; limit 200 mg in 24 hours Current Facility-Administered Medications Medication Dose Route Frequency perflutren lipid microspheres 1.3 mL in NaCl (PF) 0.9% 10 mL injection (DEFINITY) INTRAVENOUS DIRECTED PRN sodium chloride 0.9 % (flush) 10 mL (BD POSIFLUSH) 10 mL INTRAVENOUS DIRECTED PRN Allergies: Verapamil ROS: General (negative for fatigue, malaise, weight loss/gain) HEENT (negative for headache, earache, recent vision changes, sinus pain, sore throat) Respiratory (no recent shortness of breath, hemoptysis) CV (negative for chest tightness, palpitations) Musculoskeletal (see HPI) Psych (no depression, anxiety) Inocencio Gonzalez MD documented [facility]10-[facility]22 History of Present illness Narrative* Linda Parish MD - 02/05/2022 1:58 PM EDT Patient presents with: Follow Up Immunizations: Flu vaccination HPI: Patient presents today for office visit for follow up. Feels much better. No fever or chills. No nausea or vomiting. No abd pain right now. Some loose stools but is just now finishing the antibiotics. Discussed to call me on Wednesday if not back to normal and consider stool studies. Call if diverticulitis recurs Sees Dr. Ruiz this month. The platelets remain up but could be simply related to the infection. MEDICATIONS: Current Outpatient Medications Medication Sig topiramate (TOPAMAX) 50 mg tablet Take 50 mg by mouth q 24 HR. rimegepant (NURTEC ODT) 75 mg disintegrating tablet Nurtec ODT 75 mg disintegrating tablet Take 1 tab under tongue at onset of migraine. Max 1 in 24 hours. ondansetron (ZOFRAN) 8 mg tablet ondansetron HCl 8 mg tablet Take 1 tablet twice a day by oral route as needed. losartan (COZAAR) 25 mg tablet Take 1 tablet by mouth once daily. amitriptyline (ELAVIL) 10 mg tablet Take 10 mg by mouth daily at bedtime. For 2 weeks then to 25mg per neuro FLUoxetine (PROZAC) 40 mg capsule Take 1 capsule by mouth once daily. omeprazole (PRILOSEC) 20 mg capsule Take 1 capsule by mouth twice daily before meals. 1/2 hr beforemeal. (Patient taking differently: Take 20 mg by mouth as needed. 1/2 hr before meal.) aspirin, enteric coated (ASPIRIN, ENTERIC COATED) 81 mg EC tablet Take 1 tablet by mouth once daily. ixekizumab (TALTZ) 80 mg/mL syringe Inject 80 mg subcutaneously once every month. acetaminophen (TYLENOL) 325 mg tablet Take 650 mg by mouth every 6 hours as needed. amitriptyline (ELAVIL) 50 mg tablet q 24 HR. (Patient not taking: Reported on 01/28/2022) SUMAtriptan (IMITREX) 50 mg tablet take 1 tablet by oral route as needed at onset of migraine; may repeat dose in 2 hours if needed; limit 200 mg in 24 hours Current Facility-Administered Medications Medication Dose Route Frequency perflutren lipid microspheres 1.3 mL in NaCl (PF) 0.9% 10 mL injection (DEFINITY) INTRAVENOUS DIRECTED PRN sodium chloride 0.9 % (flush) 10 mL (BD POSIFLUSH) 10 mL INTRAVENOUS DIRECTED PRN ALLERGIES: ALLERGIES Allergen Reactions Verapamil Rash PAST MEDICAL HISTORY Diagnosis Date Aortic insufficiency Bursitis of elbow left Diverticulitis Migraines Pinched nerve 11/04/2020 low back Psoriasis Raynaud disease Tobacco abuse PAST SURGICAL HISTORY Procedure Laterality Date COLONOSCOPY FLX DX W/COLLJ SPEC WHEN PFRMD 05/23/2014 Colonoscopy COLONOSCOPY FLX DX W/COLLJ SPEC WHEN PFRMD 09/24/2017 Colonoscopy COLONOSCOPY FLX DX W/COLLJ SPEC WHEN PFRMD 04/16/2021 ESOPHAGOGASTRODUODENOSCOPY TRANSORAL DIAGNOSTIC 05/23/2014 EGD ESOPHAGOGASTRODUODENOSCOPY TRANSORAL DIAGNOSTIC 08/15/2014 EGD HEMORRHOIDECTOMY INT & XTRNL 2/> COLUMN/FAHEEM 10/01/2017 left posterior PAST SURGICAL HISTORY OF 2007 Pain injections lumbar RT/LT HEART CATHETERS 08/09/2020 [facility] FAMILY HISTORY Problem Relation Age of Onset Breast Cancer Mother Diabetes Father Heart Father other (Raynauds) Daughter other (Raynauds) Son Diabetes Maternal Grandfather Social History Tobacco Use Smoking status: Every Day Packs/day: 1.00 Years: 39.00 Pack years: 39.00 Types: Cigarettes Start date: 02/11/1981 Smokeless tobacco: Never Tobacco comments: Pt has cut back to 1/2 pack daily. Vaping Use Vaping Use: Never used Substance Use Topics Alcohol use: Yes Alcohol/week: 14.0 standard drinks Types: 14 Cans of Beer (12oz) per week Comment: couple drinks per day Drug use: No Reviewed current medications, allergies, past medical history, surgical history, family history andsocial history today. REVIEW OF SYSTEMS All other reviewed and negative other than HPI. VITALS: BP 110/58 Pulse 71 Resp 16 Wt 76.7 kg (169 lb) SpO2 98% BMI 22.30 kg/m Last 4 Encounter Wt Readings: Date: Wt: 02/05/2022 76.7 kg (169 lb) 01/30/2022 77.1 kg (170 lb) 01/28/2022 77.6 kg (171 lb) 12/03/2021 78.5 kg (173 lb) PHYSICAL EXAMINATION: General appearance: Well appearing, alert, in no acute distress, well-hydrated, well nourished. Skin: Skin color, texture, turgor normal, no suspicious rashes or lesions Lungs: Lungs clear to auscultation. No wheezing, rhonchi, rales Heart: RRR without murmur, gallop, or rubs. No ectopy Abdomen: Normal abdominal exam, Abdomen soft, non-tender. Bowel sounds normal. No masses, organomegaly ASSESSMENT/PLAN: 1. Diverticulitis - ICD9: 562.11, ICD10: K57.92 (primary diagnosis) - much improved. As above. Will have labs followed by Dr. Ruiz Red flags for re-assessment reviewed with patient in detail. 2. Need for influenza vaccination - ICD9: V04.81, ICD10: Z23 - INFLUENZA VACCINE QUADRIVALENT 6 MO - 64 YRS IM 3. Encounter for immunization - ICD9: V03.89, ICD10: Z23 - PFIZER-BIONTECH COVID-19 BIVALENT BOOSTER VACCINE, AGE 12+ YR Linda Parish documented in this encounterCh[facility]09-30-[facility]22 History of Present illness Narrative* Linda Parish MD - 01/30/2022 4:35 PM EDT Patient presents with: Abdominal Pain HPI: Patient presents today for office visit for Follow up diverticulitis. Still on ATB. Every time he tries to eat is running to the bathroom. See note from Wed. No fever stools. Was worse last night. Today is a little better. No vomiting. No bloody or black stools. Component Latest Ref Rng & Units 01/28/2022 WBC 3.70 - 11.00 k/uL 14.24 (H) RBC 4.20 - 6.00 m/uL 6.51 (H) Hemoglobin 13.0 - 17.0 g/dL 16.7 Hematocrit 39.0 - 51.0 % 54.4 (H) MCV 80.0 - 100.0 fL 83.6 MCH 26.0 - 34.0 pg 25.7 (L) MCHC 30.5 - 36.0 g/dL 30.7 RDW-CV 11.5 - 15.0 % 21.8 (H) Platelet Count 150 - 400 k/uL 516 (H) MPV 9.0 - 12.7 fL 9.8 Neut% % 72.2 Abs Neut (ANC) 1.45 - 7.50 k/uL 10.29 (H) Lymph% % 20.5 Abs Lymph 1.00 - 4.00 k/uL 2.92 Lenoir% % 4.2 Abs Lenoir <0.87 k/uL 0.60 Eosin% % 1.9 Abs Eosin <0.46 k/uL 0.27 Baso% % 0.8 Abs Baso <0.11 k/uL 0.11 (H) Immature Gran % % 0.4 IMMATURE GRANS (ABS) <0.10 k/uL 0.05 NRBC /100 WBC 0.0 Absolute nRBC <0.01 k/uL <0.01 DTYPE Auto Glucose 74 - 99 mg/dL 65 (L) BUN 9 - 24 mg/dL 12 Creatinine 0.73 - 1.22 mg/dL 0.92 Sodium 136 - 144 mmol/L 136 Potassium 3.7 - 5.1 mmol/L 4.9 Chloride 97 - 105 mmol/L 96 (L) CO2 22 - 30 mmol/L 24 Anion Gap 9 - 18 mmol/L 16 Calcium 8.5 - 10.2 mg/dL 10.2 eGFR >=60 mL/min/1.73m 95 WSR 0 - 15 mm/hr 2 MEDICATIONS: Current Outpatient Medications Medication Sig topiramate (TOPAMAX) 50 mg tablet Take 50 mg by mouth q 24 HR. cefdinir (OMNICEF) 300 mg capsule Take 1 capsule by mouth twice daily for 7 days. metroNIDAZOLE (FLAGYL) 500 mg tablet Take 1 tablet by mouth every 8 hours for 7 days. amitriptyline (ELAVIL) 50 mg tablet q 24 HR. (Patient not taking: Reported on 01/28/2022) rimegepant (NURTEC ODT) 75 mg disintegrating tablet Nurtec ODT 75 mg disintegrating tablet Take 1 tab under tongue at onset of migraine. Max 1 in 24 hours. ondansetron (ZOFRAN) 8 mg tablet ondansetron HCl 8 mg tablet Take 1 tablet twice a day by oral route as needed. losartan (COZAAR) 25 mg tablet Take 1 tablet by mouth once daily. SUMAtriptan (IMITREX) 50 mg tablet take 1 tablet by oral route as needed at onset of migraine; may repeat dose in 2 hours if needed; limit 200 mg in 24 hours amitriptyline (ELAVIL) 10 mg tablet Take 10 mg by mouth daily at bedtime. For 2 weeks then to 25mg per neuro FLUoxetine (PROZAC) 40 mg capsule Take 1 capsule by mouth once daily. omeprazole (PRILOSEC) 20 mg capsule Take 1 capsule by mouth twice daily before meals. 1/2 hr beforemeal. (Patient taking differently: Take 20 mg by mouth as needed. 1/2 hr before meal.) aspirin, enteric coated (ASPIRIN, ENTERIC COATED) 81 mg EC tablet Take 1 tablet by mouth once daily. ixekizumab (TALTZ) 80 mg/mL syringe Inject 80 mg subcutaneously once every month. acetaminophen (TYLENOL) 325 mg tablet Take 650 mg by mouth every 6 hours as needed. Current Facility-Administered Medications Medication Dose Route Frequency perflutren lipid microspheres 1.3 mL in NaCl (PF) 0.9% 10 mL injection (DEFINITY) INTRAVENOUS DIRECTED PRN sodium chloride 0.9 % (flush) 10 mL (BD POSIFLUSH) 10 mL INTRAVENOUS DIRECTED PRN ALLERGIES: ALLERGIES Allergen Reactions Verapamil Rash PAST MEDICAL HISTORY Diagnosis Date Aortic insufficiency Bursitis of elbow left Diverticulitis Migraines Pinched nerve 11/04/2020 low back Psoriasis Raynaud disease Tobacco abuse PAST SURGICAL HISTORY Procedure Laterality Date COLONOSCOPY FLX DX W/COLLJ SPEC WHEN PFRMD 05/23/2014 Colonoscopy COLONOSCOPY FLX DX W/COLLJ SPEC WHEN PFRMD 09/24/2017 Colonoscopy COLONOSCOPY FLX DX W/COLLJ SPEC WHEN PFRMD 04/16/2021 ESOPHAGOGASTRODUODENOSCOPY TRANSORAL DIAGNOSTIC 05/23/2014 EGD ESOPHAGOGASTRODUODENOSCOPY TRANSORAL DIAGNOSTIC 08/15/2014 EGD HEMORRHOIDECTOMY INT & XTRNL 2/> COLUMN/FAHEEM 10/01/2017 left posterior PAST SURGICAL HISTORY OF 2008 Pain injections lumbar RT/LT HEART CATHETERS 08/09/2020 [facility] FAMILY HISTORY Problem Relation Age of Onset Breast Cancer Mother Diabetes Father Heart Father other (Raynauds) Daughter other (Raynauds) Son Diabetes Maternal Grandfather Social History Tobacco Use Smoking status: Every Day Packs/day: 1.00 Years: 39.00 Pack years: 39.00 Types: Cigarettes Start date: 02/11/1980 Smokeless tobacco: Never Tobacco comments: Pt has cut back to 1/2 pack daily. Vaping Use Vaping Use: Never used Substance Use Topics Alcohol use: Yes Alcohol/week: 14.0 standard drinks Types: 14 Cans of Beer (12oz) per week Comment: couple drinks per day Drug use: No Reviewed current medications, allergies, past medical history, surgical history, family history andsocial history today. REVIEW OF SYSTEMS All other reviewed and negative other than HPI. Discussed tobacco cessation, including risks of continued use. Offered assistance to help quit if patient desires. VITALS: BP 112/68 Pulse 76 Wt 77.1 kg (170 lb) BMI 22.43 kg/m Last 4 Encounter Wt Readings: Date: Wt: 01/28/2022 77.6 kg (171 lb) 12/03/2021 78.5 kg (173 lb) 11/05/2021 78.9 kg (174 lb) 09/24/2021 78.9 kg (174 lb) PHYSICAL EXAMINATION: General appearance: Well appearing, alert, in no acute distress, well-hydrated, well nourished. Skin: Skin color, texture, turgor normal, no suspicious rashes or lesions Head: Normocephalic, no masses, lesions, tenderness or abnormalities Lungs: Lungs clear to auscultation. No wheezing, rhonchi, rales Heart: RRR without murmur, gallop, or rubs. No ectopy Abdomen: bowel sounds positive. No distended. No rebound or guarding. Much improved in regards to tenderness from the other day. No masses. ASSESSMENT/PLAN: 1. Diverticulitis - ICD9: 562.11, ICD10: K57.92 (primary diagnosis) - clinically improving on exam. Red flags for re-assessment reviewed with patient in detail. Continue meds. Cbc on Wednesday and recheck on Wed - CBC + DIFF 2. Leukocytosis, unspecified type - ICD9: 288.60, ICD10: D72.829 - CBC + DIFF Linda Parish MD [facility] History of Present illness Narrative* Linda Parish MD - 01/28/2022 3:00 PM EDT Patient presents with: Abdominal Pain ER F/U Diverticulitis HPI: Patient presents today for office visit for ER F/U Dx w/ Diverticulitis. Still C/O abd pain. BM's directly after eating. Loose stool. Getting up 3 X a night to have BM and it's painful. Seen 01/17 at [facility] ER Had ct scan that showed sigmoid diverticulitis. Labs significant for leukocytosis. Presented initially with three day hx of LLQ maldonado. Apparently he told the Er he had antibiotics leftover from a previous bout of diverticulitis that he has taken on three different bouts including this one. They started him on augmentin. Just had colonscopy done in 04/22 that included a polypectomy. Pain can get severe at times. No fever or chills. When he eats he has loose stools but no kilo diarrhea. No nausea or vomiting Normal appetite. MEDICATIONS: Current Outpatient Medications Medication Sig topiramate (TOPAMAX) 50 mg tablet Take 50 mg by mouth q 24 HR. rimegepant (NURTEC ODT) 75 mg disintegrating tablet Nurtec ODT 75 mg disintegrating tablet Take 1 tab under tongue at onset of migraine. Max 1 in 24 hours. ondansetron (ZOFRAN) 8 mg tablet ondansetron HCl 8 mg tablet Take 1 tablet twice a day by oral route as needed. losartan (COZAAR) 25 mg tablet Take 1 tablet by mouth once daily. SUMAtriptan (IMITREX) 50 mg tablet take 1 tablet by oral route as needed at onset of migraine; may repeat dose in 2 hours if needed; limit 200 mg in 24 hours amitriptyline (ELAVIL) 10 mg tablet Take 10 mg by mouth daily at bedtime. For 2 weeks then to 25mg per neuro FLUoxetine (PROZAC) 40 mg capsule Take 1 capsule by mouth once daily. omeprazole (PRILOSEC) 20 mg capsule Take 1 capsule by mouth twice daily before meals. 1/2 hr beforemeal. (Patient taking differently: Take 20 mg by mouth as needed. 1/2 hr before meal.) aspirin, enteric coated (ASPIRIN, ENTERIC COATED) 81 mg EC tablet Take 1 tablet by mouth once daily. ixekizumab (TALTZ) 80 mg/mL syringe Inject 80 mg subcutaneously once every month. acetaminophen (TYLENOL) 325 mg tablet Take 650 mg by mouth every 6 hours as needed. amitriptyline (ELAVIL) 50 mg tablet q 24 HR. (Patient not taking: Reported on 01/28/2022) Current Facility-Administered Medications Medication Dose Route Frequency perflutren lipid microspheres 1.3 mL in NaCl (PF) 0.9% 10 mL injection (DEFINITY) INTRAVENOUS DIRECTED PRN sodium chloride 0.9 % (flush) 10 mL (BD POSIFLUSH) 10 mL INTRAVENOUS DIRECTED PRN ALLERGIES: ALLERGIES Allergen Reactions Verapamil Rash PAST MEDICAL HISTORY Diagnosis Date Aortic insufficiency Bursitis of elbow left Diverticulitis Migraines Pinched nerve 11/04/2020 low back Psoriasis Raynaud disease Tobacco abuse PAST SURGICAL HISTORY Procedure Laterality Date COLONOSCOPY FLX DX W/COLLJ SPEC WHEN PFRMD 05/23/2014 Colonoscopy COLONOSCOPY FLX DX W/COLLJ SPEC WHEN PFRMD 09/24/2017 Colonoscopy COLONOSCOPY FLX DX W/COLLJ SPEC WHEN PFRMD 04/16/2021 ESOPHAGOGASTRODUODENOSCOPY TRANSORAL DIAGNOSTIC 05/23/2014 EGD ESOPHAGOGASTRODUODENOSCOPY TRANSORAL DIAGNOSTIC 08/15/2014 EGD HEMORRHOIDECTOMY INT & XTRNL 2/> COLUMN/FAHEEM 10/01/2017 left posterior PAST SURGICAL HISTORY OF 2008 Pain injections lumbar RT/LT HEART CATHETERS 08/09/2020 [facility] FAMILY HISTORY Problem Relation Age of Onset Breast Cancer Mother Diabetes Father Heart Father other (Raynauds) Daughter other (Raynauds) Son Diabetes Maternal Grandfather Social History Tobacco Use Smoking status: Every Day Packs/day: 1.00 Years: 39.00 Pack years: 39.00 Types: Cigarettes Start date: 02/11/1981 Smokeless tobacco: Never Tobacco comments: Pt has cut back to 1/2 pack daily. Vaping Use Vaping Use: Never used Substance Use Topics Alcohol use: Yes Alcohol/week: 14.0 standard drinks Types: 14 Cans of Beer (12oz) per week Comment: couple drinks per day Drug use: No Reviewed current medications, allergies, past medical history, surgical history, family history andsocial history today. REVIEW OF SYSTEMS All other reviewed and negative other than HPI. VITALS: BP 130/72 Pulse 85 Temp 36.9 C (98.5 F) Ht 185.4 cm (6' 1) Wt 77.6 kg (171 lb) SpO2 99% BMI 22.56 kg/m Last 4 Encounter Wt Readings: Date: Wt: 12/03/2021 78.5 kg (173 lb) 11/05/2021 78.9 kg (174 lb) 09/24/2021 78.9 kg (174 lb) 09/05/2021 78.9 kg (174 lb) PHYSICAL EXAMINATION: General appearance: Well appearing, alert, in no acute distress, well-hydrated, well nourished. Skin: Skin color, texture, turgor normal, no suspicious rashes or lesions Head: Normocephalic, no masses, lesions, tenderness or abnormalities Lungs: Lungs clear to auscultation. No wheezing, rhonchi, rales Heart: RRR without murmur, gallop, or rubs. No ectopy Abdomen: bowel sounds positive. Minimal discomfort,no rebound or guarding. Extremities: No deformities, edema, skin discoloration, clubbing or cyanosis. Good capillary refill. Musculoskeletal: No joint swelling, deformity, or tenderness ASSESSMENT/PLAN: 1. Diverticulitis - ICD9: 562.11, ICD10: K57.92 - Discussed risks and benefits of new medication with the patient. Advised them to call if any sideeffects or questions. Red flags for re-assessment reviewed with patient in detail. - light diet. Close follow up. In 48 hours Back to surgery if worsens. - CBC + DIFF - SED RATE WESTERGREN - BASIC METABOLIC PNL - CEFDINIR 300 MG CAPSULE - METRONIDAZOLE 500 MG TABLET Linda Parish MD documented [facility] History of Present illness Narrative* Linda Parish MD - 12/03/2021 3:34 PM EDT Patient presents with: Follow Up: 4 week HPI: Patient presents today for office visit for follow up. We increased his prozac dose. Has seen neurology. They believe his symptoms are migraine related. They did do an MRI of his brain. Had a back injection last night and actually got a good night's sleep. Not as anxious. No side effects from the increased prozac. No depression. No suicidal ideation. Neurology had increased the elavil and today does feel better with his vertigo. No headaches. Did labs and echo. His bp has been up more than it has been down lately. Had issues with verapamil. Want to avoid things that worsen his raynaud's. CONCLUSIONS: - Exam indication: Routine surveillance of moderate or severe valvular regurgitation (<1yr) - The left ventricle is normal in size. Left ventricular systolic function is normal. EF = 65 5% (visual est.) Grade I left ventricular diastolic dysfunction. - The right ventricle is normal in size. Right ventricular systolic function is normal. - There are no significant valvular abnormalities. Component Latest Ref Rng & Units 11/05/2021 WBC 3.70 - 11.00 k/uL 8.89 RBC 4.20 - 6.00 m/uL 6.93 (H) Hemoglobin 13.0 - 17.0 g/dL 16.3 Hematocrit 39.0 - 51.0 % 55.4 (H) MCV 80.0 - 100.0 fL 79.9 (L) MCH 26.0 - 34.0 pg 23.5 (L) MCHC 30.5 - 36.0 g/dL 29.4 (L) RDW-CV 11.5 - 15.0 % 23.1 (H) Platelet Count 150 - 400 k/uL 322 MPV 9.0 - 12.7 fL 9.4 Neut% % 62.2 Abs Neut (ANC) 1.45 - 7.50 k/uL 5.52 Lymph% % 28.1 Abs Lymph 1.00 - 4.00 k/uL 2.50 Lenoir% % 6.3 Abs Lenoir <0.87 k/uL 0.56 Eosin% % 2.0 Abs Eosin <0.46 k/uL 0.18 Baso% % 1.1 Abs Baso <0.11 k/uL 0.10 Immature Gran % % 0.3 IMMATURE GRANS (ABS) <0.10 k/uL 0.03 NRBC /100 WBC 0.0 Absolute nRBC <0.01 k/uL <0.01 DTYPE Auto Glucose 74 - 99 mg/dL 85 BUN 9 - 24 mg/dL 9 Creatinine 0.73 - 1.22 mg/dL 0.90 Sodium 136 - 144 mmol/L 137 Potassium 3.7 - 5.1 mmol/L 4.7 Chloride 97 - 105 mmol/L 97 CO2 22 - 30 mmol/L 23 Anion Gap 9 - 18 mmol/L 17 Calcium 8.5 - 10.2 mg/dL 9.5 eGFR >=60 mL/min/1.73m 98 See previous ov: Was begun on prozac. Went to vestibular therapy. No improvement so sent to neurology. They reordered mri Ordered eeg. They suspect may be migraine related. Added elevil and imitrex instead of maxalt. Feeling tired but is taking zofran round the clock. Suggested he change to prn nausea. Feels symptoms are maybe a little worse. Has repeat mri done tomorrow. eeg later this month. Sees them after. Back on prozac. Overall is doing ok. His anxiety is still an issues. He wonders if we need to increase it. Sees Dr. Calvert today for back issues. No chest pain or shortness of breath that is new. Has know aortic regurge. MEDICATIONS: Current Outpatient Medications Medication Sig amitriptyline (ELAVIL) 50 mg tablet q 24 HR. rimegepant (NURTEC ODT) 75 mg disintegrating tablet Nurtec ODT 75 mg disintegrating tablet Take 1 tab under tongue at onset of migraine. Max 1 in 24 hours. ondansetron (ZOFRAN) 8 mg tablet ondansetron HCl 8 mg tablet Take 1 tablet twice a day by oral route as needed. SUMAtriptan (IMITREX) 50 mg tablet take 1 tablet by oral route as needed at onset of migraine; may repeat dose in 2 hours if needed; limit 200 mg in 24 hours amitriptyline (ELAVIL) 10 mg tablet Take 10 mg by mouth daily at bedtime. For 2 weeks then to 25mg per neuro FLUoxetine (PROZAC) 40 mg capsule Take 1 capsule by mouth once daily. omeprazole (PRILOSEC) 20 mg capsule Take 1 capsule by mouth twice daily before meals. 1/2 hr beforemeal. (Patient taking differently: Take 20 mg by mouth as needed. 1/2 hr before meal. ) aspirin, enteric coated (ASPIRIN, ENTERIC COATED) 81 mg EC tablet Take 1 tablet by mouth once daily. ixekizumab (TALTZ SYRINGE) 80 mg/mL syrg Inject 80 mg subcutaneously once every month. acetaminophen (TYLENOL) 325 mg tablet Take 650 mg by mouth every 6 hours as needed. meclizine (ANTIVERT) 25 mg tab Take 1 tablet by mouth every 6 hours as needed (dizziness). (Patientnot taking: Reported on 12/03/2021 ) Current Facility-Administered Medications Medication Dose Route Frequency perflutren lipid microspheres 1.3 mL in NaCl (PF) 0.9% 10 mL injection (DEFINITY) INTRAVENOUS DIRECTED PRN sodium chloride 0.9 % (flush) 10 mL (BD POSIFLUSH) 10 mL INTRAVENOUS DIRECTED PRN ALLERGIES: ALLERGIES Allergen Reactions Verapamil Rash PAST MEDICAL HISTORY Diagnosis Date Aortic insufficiency Bursitis of elbow left Diverticulitis Migraines Pinched nerve 11/04/2020 low back Psoriasis Raynaud disease Tobacco abuse PAST SURGICAL HISTORY Procedure Laterality Date COLONOSCOPY FLX DX W/COLLJ SPEC WHEN PFRMD 05/23/2014 Colonoscopy COLONOSCOPY FLX DX W/COLLJ SPEC WHEN PFRMD 09/24/2017 Colonoscopy COLONOSCOPY FLX DX W/COLLJ SPEC WHEN PFRMD 04/16/2021 ESOPHAGOGASTRODUODENOSCOPY TRANSORAL DIAGNOSTIC 05/23/2014 EGD ESOPHAGOGASTRODUODENOSCOPY TRANSORAL DIAGNOSTIC 08/15/2014 EGD HEMORRHOIDECTOMY INT & XTRNL 2/> COLUMN/FAHEEM 10/01/2017 left posterior PAST SURGICAL HISTORY OF 2008 Pain injections lumbar RT/LT HEART CATHETERS 08/09/2020 [facility] FAMILY HISTORY Problem Relation Age of Onset Breast Cancer Mother Diabetes Father Heart Father other (Raynauds) Daughter other (Raynauds) Son Diabetes Maternal Grandfather Social History Tobacco Use Smoking status: Current Every Day Smoker Packs/day: 1.00 Years: 39.00 Pack years: 39.00 Types: Cigarettes Start date: 02/11/1981 Smokeless tobacco: Never Used Tobacco comment: Pt has cut back to 1/2 pack daily. Vaping Use Vaping Use: Never used Substance Use Topics Alcohol use: Yes Alcohol/week: 14.0 standard drinks Types: 14 Cans of Beer (12oz) per week Comment: couple drinks per day Drug use: No Reviewed current medications, allergies, past medical history, surgical history, family history andsocial history today. REVIEW OF SYSTEMS All other reviewed and negative other than HPI. VITALS: BP 140/78 Pulse 66 Resp 16 Wt 78.5 kg (173 lb) BMI 22.82 kg/m Last 4 Encounter Wt Readings: Date: Wt: 12/03/2021 78.5 kg (173 lb) 11/05/2021 78.9 kg (174 lb) 09/24/2021 78.9 kg (174 lb) 09/05/2021 78.9 kg (174 lb) PHYSICAL EXAMINATION: General appearance: Well appearing, alert, in no acute distress, well-hydrated, well nourished. Skin: Skin color, texture, turgor normal, no suspicious rashes or lesions Heart: RRR without murmur, gallop, or rubs. No ectopy Abdomen: Normal abdominal exam, Abdomen soft, non-tender. Bowel sounds normal. No masses, organomegaly Extremities: No deformities, edema, skin discoloration, clubbing or cyanosis. Good capillary refill. Musculoskeletal: No joint swelling, deformity, or tenderness Peripheral pulses: Normal Neuro: Gait normal. Reflexes normal and symmetric. Sensation grossly intact. ASSESSMENT/PLAN: 1. Primary hypertension - ICD9: 401.9, ICD10: I10 (primary diagnosis) - suboptimal control - Add losartan - Discussed risks and benefits of new medication with the patient. Advised them to call if any sideeffects or questions. - bp check in one month - Goal of BP <130/80 - LOSARTAN 25 MG TABLET 2. Polycythemia, secondary - ICD9: 289.0, ICD10: D75.1 - with Dr. Ruiz 3. Raynaud's phenomenon without gangrene - ICD9: 443.0, ICD10: I73.00 - stable. 4. Gastroesophageal reflux disease, unspecified whether esophagitis present - ICD9: 530.81, ICD10: K21.9 - call if any issuse. 5. Benign paroxysmal positional vertigo of right ear - ICD9: 386.11, ICD10: H81.11 - per neuro 6. Migraine with aura, not intractable, without status migrainosus - ICD9: 346.00, ICD10: G43.109 - per neuro Linda Parish RTO in four months and prn. documented [facility] History of Present illness Narrative* Linda Parish MD - 11/05/2021 11:12 AM EDT Patient presents with: Follow Up: dizziness/migraines-saw neuro see note HPI: Patient presents today for office visit for follow up. Was begun on prozac. Went to vestibular therapy. No improvement so sent to neurology. They reordered mri Ordered eeg. They suspect may be migraine related. Added elevil and imitrex instead of maxalt. Feeling tired but is taking zofran round the clock. Suggested he change to prn nausea. Feels symptoms are maybe a little worse. Has repeat mri done tomorrow. eeg later this month. Sees them after. Back on prozac. Overall is doing ok. His anxiety is still an issues. He wonders if we need to increase it. Sees Dr. Calvert today for back issues. No chest pain or shortness of breath that is new. Has know aortic regurge. See previous ov: Nursing Notes: Marcia Alves EDWARD 09/24/2021 2:15 PM Signed HOSPITAL/ER FOLLOW UP: Reason for visit: vertigo Which facility: [facility] Date of visit: 09/18/21 Diagnosis: vertigo Testing done: CTscan and labs Treatment given: diazepam Current symptoms: headache after spell of vertigo Vertigo has been flared up for about 1 month Work up negative. Reviewed ER reports and ct scan. Did have carotid doppler just done in last five months. Had echo done in the last year. Has had MRI done in the past for vertigo Moving his head from side to side triggers dizziness. No new numbness or weakness. No chest pain or shortness of breath. Will get headaches at times. Feels like he is very anxious when it happens. Has a hx of palpitations and has had them worked up with monitor etc in the past. Also notes he has not been taking his fluoxetine. Suggested he resume it. MEDICATIONS: Current Outpatient Medications Medication Sig SUMAtriptan (IMITREX) 50 mg tablet take 1 tablet by oral route as needed at onset of migraine; may repeat dose in 2 hours if needed; limit 200 mg in 24 hours amitriptyline (ELAVIL) 10 mg tablet Take 10 mg by mouth daily at bedtime. For 2 weeks then to 25mg per neuro meclizine (ANTIVERT) 25 mg tab Take 1 tablet by mouth every 6 hours as needed (dizziness). FLUoxetine (PROZAC) 20 mg capsule Take 1 capsule by mouth once daily. omeprazole (PRILOSEC) 20 mg capsule Take 1 capsule by mouth twice daily before meals. 1/2 hr beforemeal. (Patient taking differently: Take 20 mg by mouth as needed. 1/2 hr before meal. ) aspirin, enteric coated (ASPIRIN, ENTERIC COATED) 81 mg EC tablet Take 1 tablet by mouth once daily. rizatriptan (MAXALT FLUORESCENT SOLUTION MIXER) 10 mg disintegrating tablet Take 1 tablet by mouth as needed for migraine headache (see administration instructions) (monthly). May repeat in 2 hours if needed ixekizumab (TALTZ SYRINGE) 80 mg/mL syrg Inject 80 mg subcutaneously once every month. acetaminophen (TYLENOL) 325 mg tablet Take 650 mg by mouth every 6 hours as needed. No current facility-administered medications for this visit. ALLERGIES: ALLERGIES Allergen Reactions Verapamil Rash PAST MEDICAL HISTORY Diagnosis Date Aortic insufficiency Bursitis of elbow left Diverticulitis Migraines Pinched nerve 11/04/2020 low back Psoriasis Raynaud disease Tobacco abuse PAST SURGICAL HISTORY Procedure Laterality Date COLONOSCOPY FLX DX W/COLLJ SPEC WHEN PFRMD 05/23/2014 Colonoscopy COLONOSCOPY FLX DX W/COLLJ SPEC WHEN PFRMD 09/24/2017 Colonoscopy COLONOSCOPY FLX DX W/COLLJ SPEC WHEN PFRMD 04/16/2021 ESOPHAGOGASTRODUODENOSCOPY TRANSORAL DIAGNOSTIC 05/23/2014 EGD ESOPHAGOGASTRODUODENOSCOPY TRANSORAL DIAGNOSTIC 08/15/2014 EGD HEMORRHOIDECTOMY INT & XTRNL 2/> COLUMN/FAHEEM 10/01/2017 left posterior PAST SURGICAL HISTORY OF 2008 Pain injections lumbar RT/LT HEART CATHETERS 08/09/2020 [facility] FAMILY HISTORY Problem Relation Age of Onset Breast Cancer Mother Diabetes Father Heart Father other (Raynauds) Daughter other (Raynauds) Son Diabetes Maternal Grandfather Social History Tobacco Use Smoking status: Current Every Day Smoker Packs/day: 1.00 Years: 39.00 Pack years: 39.00 Types: Cigarettes Start date: 02/11/1981 Smokeless tobacco: Never Used Tobacco comment: Pt has cut back to 1/2 pack daily. Vaping Use Vaping Use: Never used Substance Use Topics Alcohol use: Yes Alcohol/week: 14.0 standard drinks Types: 14 Cans of Beer (12oz) per week Comment: couple drinks per day Drug use: No Reviewed current medications, allergies, past medical history, surgical history, family history andsocial history today. REVIEW OF SYSTEMS All other reviewed and negative other than HPI. VITALS: BP 140/68 Pulse 72 Wt 78.9 kg (174 lb) BMI 22.96 kg/m Last 4 Encounter Wt Readings: Date: Wt: 11/05/2021 78.9 kg (174 lb) 09/24/2021 78.9 kg (174 lb) 09/05/2021 78.9 kg (174 lb) 07/22/2021 79.6 kg (175 lb 6.4 oz) PHYSICAL EXAMINATION: General appearance: Well appearing, alert, in no acute distress, well-hydrated, well nourished. Skin: Skin color, texture, turgor normal, no suspicious rashes or lesions Head: Normocephalic, no masses, lesions, tenderness or abnormalities Back: Normal exam Lungs: Lungs clear to auscultation. No wheezing, rhonchi, rales Heart: RRR, murmur ? Louder. Normal s1 and s2 Abdomen: Normal abdominal exam, Abdomen soft, non-tender. Bowel sounds normal. No masses, organomegaly Extremities: No deformities, edema, skin discoloration, clubbing or cyanosis. Good capillary refill. Musculoskeletal: No joint swelling, deformity, or tenderness ASSESSMENT/PLAN: 1. Nonrheumatic aortic valve insufficiency - ICD9: 424.1, ICD10: I35.1 (primary diagnosis) - given murmur and symptoms, recheck echo. Continue to see cardiology. - ECHO - PERFLUTREN LIPID MICROSPHERES 1.1 MG/ML INJECTION IN NS 10 ML - SODIUM CHLORIDE 0.9 % (FLUSH) INJECTION SYRINGE 2. Raynaud's phenomenon without gangrene - ICD9: 443.0, ICD10: I73.00 - increase meds that will also help with anxiety. - FLUOXETINE 40 MG CAPSULE 3. Mixed hyperlipidemia - ICD9: 272.2, ICD10: E78.2 - good control - Continue current medication. 4. SVT (supraventricular tachycardia) (HCC) - ICD9: 427.89, ICD10: I47.1 - call if any issues. 5. Polycythemia, secondary - ICD9: 289.0, ICD10: D75.1 - recheck labs. Sees Dr. Ruiz - CBC + DIFF - BASIC METABOLIC PNL 6. Hyperviscosity - ICD9: 273.3, ICD10: D75.9 - as above. Getting MRI today. 7. Bilateral carotid artery stenosis - ICD9: 433.10, 433.30, ICD10: I65.23 - just checked before end of the year. Linda Parish RTO in one month and prn. documented in this encounter[facility]06-[facility] History of Present illness Narrative* Alfredo Palma, PT - 10/07/2021 3:01 PM EDT Episode Visit Count: 1 Therapist That Will Oversee The Plan Of Care: Alfredo Palma PT Start of Care Date: 10/07/21 Onset Date: 08/26/21 Plan of Care Certification Date: 10/07/21 Next Certification Due Date: 10/07/21 Patient Identified by Name and Date of : Yes RE[facility]ABILITATION AND [facility]ORTS THERAPY PHYSICAL THERAPY EVALUATION PLAN OF CARE: Assessment: Choco Maldonado presents with diagnosis of BPPV that interferes with rising from a chair (looking down to use phone, walking dog). He presents with impairments in balance and overall function. PROMIS (Patient-Reported Outcomes Measurement Information System) scores were reviewed and physical function domain, social roles domain and fatigue domain identified as a rehabilitation concern. Prognosis for therapy is Fair due to: clinical presentation. He will benefit from skilled therapyservices to meet the goals established for this plan of care as noted below. Goals for Episode of Care: created on 10/07/21 through 10/07/21 No goals established. Pt seen for evaluation only. Patient Goals: eliminate vertigo Planned Interventions, Frequency, and Duration: Current Frequency: 1 visit Duration: 1 visit Total Number of Visits Planned: 1 (Pt seen for evaluation only today) Planned Treatment Interventions: (Pt seen for evaluation only) PLAN FOR NEXT VISIT: Pt seen for evaluation only today. He was referred back to referring provider and this plan was explained to referring provider. Pt understood plan and that evaluation by a vestibular specialist may be an option after being cleared by PCP. Patient demonstrates good understanding of plan of care and treatment. The above goals and plan of care were discussed and agreed upon by patient/family. SUBJECTIVE: Choco Maldonado is a 60 year old male seen today for intermittent dizziness with cloudy vision and blurred sensation. He reports that it feels like his equilibrium is off. He reports that the most consistent trigger is rising from seated position. He also reports that it was once triggered by dogs pulling him in one direction. He reports that he was seenin ER 09/18/21. At that time a CT scan, labs and EKG were all negative. He also reports that looking down to use his phone and thenlooking has triggered his symptoms. He reports that once triggered, his symptoms resolve on their own as long as he is still. He reports that it lasts for less than one minute. He reports feeling very tired after an episode and headaches also occur. Patient Goals: eliminate vertigo Functional Limitations: rising from a chair (looking down to use phone, walking dog) Prior Level of Function: Independent without limitations Relevant History Past Relevant Medical Conditions: Cardiac;Blood Disorders;Circulation / Vascular Issues;Smoking History;Vertigo;Anxiety;Headaches Right or Left Handed: Right Employment: Unemployed Home Environment Patient Lives With: Spouse Assistance Available: PRN Intake Information: Prescription present Previous Treatment: (medication that is not helping) Falls Interview: No positive findings with falls interview Concussion History of Concussion: No Vestibular Symptoms present for: months Symptom onset: sudden Dizziness: Yes Description: off sensation;foggy;woozy;decreased clarity;light headed;dizziness Rating of current symptoms: 8/10 Frequency: Intermittent Duration: seconds (less than one minute) Symptoms worsened by: turning head quickly;pivot turns;looking up (rising) Symptoms improved by: being still Imbalance: Yes Imbalance triggered by: Position changes;Looking up;Turning Fall Assessment: No falls Nausea: at times for short term Motion Sickness: None Headache: Yes Description: aching Rating of current symptoms: 4/10 Location: right side;temporal region Frequency: Intermittent Duration: minutes Symptoms worsened by: bright lights/ sunlight;stressful situations Symptoms improved by: when still;rest Neck Symptoms: Yes Description: aching Rating of current symptoms: 10 Location: posterior neck Frequency: Intermittent Duration: minutes Jaw Symptoms: No Ear Symptoms: No Hearing Changes: No recent changes Tinnitus: No recent changes Sleeping Position: Prone - head either right or left;Side lying right Sleep Affected by Symptoms: Not affected by dizziness History of Syncope: No History of Migraine: Yes Reports: headaches;dizziness;visual changes Pain: Post Treatment Pain Post Treatment Pain Level: No Change PROMIS Scales Higher is Better 06/23/2021 09/24/2021 10/06/2021 Phys Func - Score - - 44 (mild dysfunction) Phys Func - Percentile - - 27 % Social Roles - Score - - 42 (mild dysfunction) Social Role - Percentile - - 21 % GH Physical - Score 44.9 (Good) 47.7 (Good) - GH Physical - Percentile 31 % 41 % - GH Mental - Score Incomplete 41.1 (Good) - GH Mental - Percentile - 19 % - Self-Eff Symptom - Score - - 40 (Average) Self-Eff Symptom - Percentile - - 16 % T-scores: mean of general population = 50. 5 points is clinically meaningfully difference Percentiles provide an indication of how the patient's score ranks in relation to the general population. Higher percentile rankings indicate better function/quality of life. 50th percentile is the average of the general population and indicates half of respondents had a worse score. Lower is Better 10/06/2021 Fatigue - Score 62 (moderate) Fatigue - Percentile 12 % T-scores: mean of general population = 50. 5 points is clinically meaningfully difference Percentiles provide an indication of how the patient's score ranks in relation to the general population. Higher percentile rankings indicate better function/quality of life. 50th percentile is the average of the general population and indicates half of respondents had a worse score. OBJECTIVE MEASURES WITH LEVEL OF FUNCTION: Posture / Alignment Posture: Increased thoracic kyphosis;Rounded shoulders Positional Testing Right Jose-Hallpike: Asymptomatic;No nystagmus Left [place]-Hallpike: Asymptomatic;No nystagmus Positional Test Comments: In addition to negative Jose-Hallpike tests bilaterally, roll test for horizontal canal was also negative and did not reproduce his chief complaint. Cervical Spine ROM Cervical ROM : (Cervical spine AROM is grossly WFL) Education: Education Learning Preferences: Demonstration;Explanation;Performance;Printed Materials Barriers: Emotions (Pt reports chronic problems with anxiety) Learning/educational needs: Plan of Care Education Provided: Other: See Comment (Examination findings were explained to pt in great detail as well as plan of care but no treatment delivered) TREATMENT: Evaluation Billing * Evaluation High Complexity: 1 Unit Total Treatment Time Minutes (timed/untimed): 45 Alfredo Palma PT [facility] History of Present illness Narrative* Dayo Gonzales RT(R) - 07/22/2021 2:00 PM EDT Radiology Service Progress Note PATIENT NAME: Choco Maldonado DATE OF SERVICE: July 22, 2021 TIME: 2:00 PM PATIENT IDENTITY VERIFICATION COMPLETED USING TWO (2) IDENTIFIERS: Name and Date of confirmedby patient verbally. FALL SCREENING: Has the patient had 2 falls in the last year or 1 fall with injury or currently using an Ambulatory Assistive Device (Walker, Cane, Wheelchair, Crutches, etc.)? No PATIENT GENDER DATA: Male PATIENT RELEVANT IMPLANT DATA REVIEWED: Not Applicable RADIOLOGY DEPARTMENT: General X-ray: Exam(s) Completed: Rib X-Ray: Left PERIPHERAL IV DATA: Not applicable SIGNED BY: RT Anayeli(R) July 22, 2021 2:00 PM [facility] History of Present illness Narrative* Radha Ortiz RT(R) - 06/24/2021 11:00 AM EST Radiology Service Progress Note PATIENT NAME: Choco Maldonado DATE OF SERVICE: June 24, 2021 TIME: 11:28 AM PATIENT IDENTITY VERIFICATION COMPLETED USING TWO (2) IDENTIFIERS: Name and Date of confirmedby patient verbally. FALL SCREENING: Has the patient had 2 falls in the last year or 1 fall with injury or currently using an Ambulatory Assistive Device (Walker, Cane, Wheelchair, Crutches, etc.)? No PATIENT GENDER DATA: Male PATIENT RELEVANT IMPLANT DATA REVIEWED: Yes RADIOLOGY DEPARTMENT: CT; Exam(s) Completed: Chest lung screening PERIPHERAL IV DATA: Not applicable SIGNED BY: RT Nicolle(R) June 24, 2021 11:28 AM [facility] History of Past illness Narrative* Problem Noted Date Resolved Date Esophageal reflux 08/15/2014 08/15/2014 Hemorrhage of gastrointestinal tract, unspecifie d 05/23/2014 05/23/2014 Abdominal pain, unspecified site 05/23/2014 05/23/2014 documented as of this encounter (statuses as of 09/05/2021) [facility] of Past illness Narrative* Problem Noted Date Resolved Date Esophageal reflux 08/15/2014 08/15/2014 Hemorrhage of gastrointestinal tract, unspecifie d 05/23/2014 05/23/2014 Abdominal pain, unspecified site 05/23/2014 05/23/2014 documented as of this encounter (statuses as of 10/07/2021) [address]2015 History of Past illness Narrative* Problem Noted Date Resolved Date Esophageal reflux 08/15/2014 08/15/2014 Hemorrhage of gastrointestinal tract, unspecifie d 05/23/2014 05/23/2014 Abdominal pain, unspecified site 05/23/2014 05/23/2014 documented as of this encounter (statuses as of 11/05/2021) [address]2015 History of Past illness Narrative* Problem Noted Date Resolved Date Esophageal reflux 08/15/2014 08/15/2014 Hemorrhage of gastrointestinal tract, unspecifie d 05/23/2014 05/23/2014 Abdominal pain, unspecified site 05/23/2014 05/23/2014 documented as of this encounter (statuses as of 12/03/2021) [address]2015 History of Past illness Narrative* Problem Noted Date Resolved Date Esophageal reflux 08/15/2014 08/15/2014 Thrombosed hemorrhoids 08/01/2014 2 Hemorrhage of gastrointestinal tract, unspecifie d 05/23/2014 05/23/2014 Abdominal pain, unspecified site 05/23/2014 05/23/2014 documented as of this encounter (statuses as of 01/28/2022) [address]2015 History of Past illness Narrative* Problem Noted Date Resolved Date Esophageal reflux 08/15/2014 08/15/2014 Thrombosed hemorrhoids 08/01/2014 2 Hemorrhage of gastrointestinal tract, unspecifie d 05/23/2014 05/23/2014 Abdominal pain, unspecified site 05/23/2014 05/23/2014 documented as of this encounter (statuses as of 01/30/2022) [address]2015 History of Past illness Narrative* Problem Noted Date Resolved Date Esophageal reflux 08/15/2014 08/15/2014 Thrombosed hemorrhoids 08/01/2014 2 Hemorrhage of gastrointestinal tract, unspecifie d 05/23/2014 05/23/2014 Abdominal pain, unspecified site 05/23/2014 05/23/2014 documented as of this encounter (statuses as of 02/05/2022) [address]2015 History of Past illness Narrative* Problem Noted Date Resolved Date Esophageal reflux 08/15/2014 08/15/2014 Thrombosed hemorrhoids 08/01/2014 2 Hemorrhage of gastrointestinal tract, unspecifie d 05/23/2014 05/23/2014 Abdominal pain, unspecified site 05/23/2014 05/23/2014 documented as of this encounter (statuses as of 02/26/2022) [address]2015 History of Past illness Narrative* Problem Noted Date Resolved Date Esophageal reflux 08/15/2014 08/15/2014 Thrombosed hemorrhoids 08/01/2014 2 Hemorrhage of gastrointestinal tract, unspecifie d 05/23/2014 05/23/2014 Abdominal pain, unspecified site 05/23/2014 05/23/2014 documented as of this encounter (statuses as of 03/18/2022) [address]2015 History of Past illness Narrative* Problem Noted Date Resolved Date Esophageal reflux 08/15/2014 08/15/2014 Thrombosed hemorrhoids 08/01/2014 2 Hemorrhage of gastrointestinal tract, unspecifie d 05/23/2014 05/23/2014 Abdominal pain, unspecified site 05/23/2014 05/23/2014 documented as of this encounter (statuses as of 05/06/2022) [address]2015 History of Past illness Narrative* Problem Noted Date Resolved Date Esophageal reflux 08/15/2014 08/15/2014 Thrombosed hemorrhoids 08/01/2014 2 Hemorrhage of gastrointestinal tract, unspecifie d 05/23/2014 05/23/2014 Abdominal pain, unspecified site 05/23/2014 05/23/2014 documented as of this encounter (statuses as of 05/08/2022) [address]2015 History of Past illness Narrative* Problem Noted Date Resolved Date Esophageal reflux 08/15/2014 08/15/2014 Thrombosed hemorrhoids 08/01/2014 2 Hemorrhage of gastrointestinal tract, unspecifie d 05/23/2014 05/23/2014 Abdominal pain, unspecified site 05/23/2014 05/23/2014 documented as of this encounter (statuses as of 05/11/2022) [address]2015 History of Past illness Narrative* Problem Noted Date Resolved Date Esophageal reflux 08/15/2014 08/15/2014 Thrombosed hemorrhoids 08/01/2014 2 Hemorrhage of gastrointestinal tract, unspecifie d 05/23/2014 05/23/2014 Abdominal pain, unspecified site 05/23/2014 05/23/2014 documented as of this encounter (statuses as of 05/22/2022) [address]2015 History of Past illness Narrative* Problem Noted Date Resolved Date Esophageal reflux 08/15/2014 08/15/2014 Thrombosed hemorrhoids 08/01/2014 2 Hemorrhage of gastrointestinal tract, unspecifie d 05/23/2014 05/23/2014 Abdominal pain, unspecified site 05/23/2014 05/23/2014 documented as of this encounter (statuses as of 05/27/2022) [address]2015 History of Past illness Narrative* Problem Noted Date Resolved Date Esophageal reflux 08/15/2014 08/15/2014 Thrombosed hemorrhoids 08/01/2014 2 Hemorrhage of gastrointestinal tract, unspecifie d 05/23/2014 05/23/2014 Abdominal pain, unspecified site 05/23/2014 05/23/2014 documented as of this encounter (statuses as of 06/08/2022) [address]2015 History of Past illness Narrative* Problem Noted Date Resolved Date Esophageal reflux 08/15/2014 08/15/2014 Thrombosed hemorrhoids 08/01/2014 2 Hemorrhage of gastrointestinal tract, unspecifie d 05/23/2014 05/23/2014 Abdominal pain, unspecified site 05/23/2014 05/23/2014 documented as of this encounter (statuses as of 06/08/2022) [address]2015 History of Past illness Narrative* Problem Noted Date Resolved Date Esophageal reflux 08/15/2014 08/15/2014 Thrombosed hemorrhoids 08/01/2014 2 Hemorrhage of gastrointestinal tract, unspecifie d 05/23/2014 05/23/2014 Abdominal pain, unspecified site 05/23/2014 05/23/2014 documented as of this encounter (statuses as of 06/29/2022) [address]2015 History of Past illness Narrative* Problem Noted Date Resolved Date Esophageal reflux 08/15/2014 08/15/2014 Thrombosed hemorrhoids 08/01/2014 2 Hemorrhage of gastrointestinal tract, unspecifie d 05/23/2014 05/23/2014 Abdominal pain, unspecified site 05/23/2014 05/23/2014 documented as of this encounter (statuses as of 06/30/2022) [address]2015 History of Past illness Narrative* Problem Noted Date Resolved Date Esophageal reflux 08/15/2014 08/15/2014 Thrombosed hemorrhoids 08/01/2014 2 Hemorrhage of gastrointestinal tract, unspecifie d 05/23/2014 05/23/2014 Abdominal pain, unspecified site 05/23/2014 05/23/2014 documented as of this encounter (statuses as of 07/03/2022) [address]2015 History of Past illness Narrative* Problem Noted Date Resolved Date Esophageal reflux 08/15/2014 08/15/2014 Thrombosed hemorrhoids 08/01/2014 2 Hemorrhage of gastrointestinal tract, unspecifie d 05/23/2014 05/23/2014 Abdominal pain, unspecified site 05/23/2014 05/23/2014 documented as of this encounter (statuses as of 07/09/2022) [address]2015 History of Past illness Narrative* Problem Noted Date Resolved Date Esophageal reflux 08/15/2014 08/15/2014 Thrombosed hemorrhoids 08/01/2014 2 Hemorrhage of gastrointestinal tract, unspecifie d 05/23/2014 05/23/2014 Abdominal pain, unspecified site 05/23/2014 05/23/2014 documented as of this encounter (statuses as of 07/09/2022) [address]2015 History of Past illness Narrative* Problem Noted Date Resolved Date Esophageal reflux 08/15/2014 08/15/2014 Thrombosed hemorrhoids 08/01/2014 2 Hemorrhage of gastrointestinal tract, unspecifie d 05/23/2014 05/23/2014 Abdominal pain, unspecified site 05/23/2014 05/23/2014 documented as of this encounter (statuses as of 07/10/2022) [address]2015 History of Past illness Narrative* Problem Noted Date Resolved Date Esophageal reflux 08/15/2014 08/15/2014 Thrombosed hemorrhoids 08/01/2014 2 Hemorrhage of gastrointestinal tract, unspecifie d 05/23/2014 05/23/2014 Abdominal pain, unspecified site 05/23/2014 05/23/2014 documented as of this encounter (statuses as of 07/20/2022) [address]2015 History of Past illness Narrative* Problem Noted Date Resolved Date Esophageal reflux 08/15/2014 08/15/2014 Thrombosed hemorrhoids 08/01/2014 2 Hemorrhage of gastrointestinal tract, unspecifie d 05/23/2014 05/23/2014 Abdominal pain, unspecified site 05/23/2014 05/23/2014 documented as of this encounter (statuses as of 07/23/2022) [address]2015 History of Past illness Narrative* Problem Noted Date Resolved Date Esophageal reflux 08/15/2014 08/15/2014 Thrombosed hemorrhoids 08/01/2014 2 Hemorrhage of gastrointestinal tract, unspecifie d 05/23/2014 05/23/2014 Abdominal pain, unspecified site 05/23/2014 05/23/2014 documented as of this encounter (statuses as of 07/27/2022) [address] History of Past illness Narrative* Problem Noted Date Resolved Date Esophageal reflux 08/15/2014 08/15/2014 Thrombosed hemorrhoids 08/01/2014 2 Hemorrhage of gastrointestinal tract, unspecifie d 05/23/2014 05/23/2014 Abdominal pain, unspecified site 05/23/2014 05/23/2014 documented as of this encounter (statuses as of 07/29/2022) [address]2015 History of Past illness Narrative* Problem Noted Date Resolved Date Esophageal reflux 08/15/2014 08/15/2014 Thrombosed hemorrhoids 08/01/2014 2 Hemorrhage of gastrointestinal tract, unspecifie d 05/23/2014 05/23/2014 Abdominal pain, unspecified site 05/23/2014 05/23/2014 documented as of this encounter (statuses as of 08/13/2022) [address]2015 History of Past illness Narrative* Problem Noted Date Resolved Date Esophageal reflux 08/15/2014 08/15/2014 Thrombosed hemorrhoids 08/01/2014 2 Hemorrhage of gastrointestinal tract, unspecifie d 05/23/2014 05/23/2014 Abdominal pain, unspecified site 05/23/2014 05/23/2014 documented as of this encounter (statuses as of 08/17/2022) [address]2015 History of Past illness Narrative* Problem Noted Date Resolved Date Esophageal reflux 08/15/2014 08/15/2014 Thrombosed hemorrhoids 08/01/2014 2 Hemorrhage of gastrointestinal tract, unspecifie d 05/23/2014 05/23/2014 Abdominal pain, unspecified site 05/23/2014 05/23/2014 documented as of this encounter (statuses as of 08/20/2022) [address]2015 History of Past illness Narrative* Problem Noted Date Resolved Date Esophageal reflux 08/15/2014 08/15/2014 Thrombosed hemorrhoids 08/01/2014 2 Hemorrhage of gastrointestinal tract, unspecifie d 05/23/2014 05/23/2014 Abdominal pain, unspecified site 05/23/2014 05/23/2014 documented as of this encounter (statuses as of 08/20/2022) [address]2015 History of Past illness Narrative* Problem Noted Date Resolved Date Esophageal reflux 08/15/2014 08/15/2014 Thrombosed hemorrhoids 08/01/2014 2 Hemorrhage of gastrointestinal tract, unspecifie d 05/23/2014 05/23/2014 Abdominal pain, unspecified site 05/23/2014 05/23/2014 documented as of this encounter (statuses as of 09/02/2022) [address]2015 History of Past illness Narrative* Problem Noted Date Resolved Date Esophageal reflux 08/15/2014 08/15/2014 Thrombosed hemorrhoids 08/01/2014 2 Hemorrhage of gastrointestinal tract, unspecifie d 05/23/2014 05/23/2014 Abdominal pain, unspecified site 05/23/2014 05/23/2014 documented as of this encounter (statuses as of 09/02/2022) [address]2015 History of Past illness Narrative* Problem Noted Date Resolved Date Esophageal reflux 08/15/2014 08/15/2014 Thrombosed hemorrhoids 08/01/2014 2 Hemorrhage of gastrointestinal tract, unspecifie d 05/23/2014 05/23/2014 Abdominal pain, unspecified site 05/23/2014 05/23/2014 documented as of this encounter (statuses as of 09/08/2022) [address]2015 History of Past illness Narrative* Problem Noted Date Resolved Date Esophageal reflux 08/15/2014 08/15/2014 Thrombosed hemorrhoids 08/01/2014 2 Hemorrhage of gastrointestinal tract, unspecifie d 05/23/2014 05/23/2014 Abdominal pain, unspecified site 05/23/2014 05/23/2014 documented as of this encounter (statuses as of 09/09/2022) [address]2015 History of Past illness Narrative* Problem Noted Date Resolved Date Esophageal reflux 08/15/2014 08/15/2014 Thrombosed hemorrhoids 08/01/2014 2 Hemorrhage of gastrointestinal tract, unspecifie d 05/23/2014 05/23/2014 Abdominal pain, unspecified site 05/23/2014 05/23/2014 documented as of this encounter (statuses as of 09/09/2022) [address]2015 History of Past illness Narrative* Problem Noted Date Resolved Date Esophageal reflux 08/15/2014 08/15/2014 Thrombosed hemorrhoids 08/01/2014 2 Hemorrhage of gastrointestinal tract, unspecifie d 05/23/2014 05/23/2014 Abdominal pain, unspecified site 05/23/2014 05/23/2014 documented as of this encounter (statuses as of 09/11/2022) [address]2015 History of Past illness Narrative* Problem Noted Date Resolved Date Esophageal reflux 08/15/2014 08/15/2014 Thrombosed hemorrhoids 08/01/2014 2 Hemorrhage of gastrointestinal tract, unspecifie d 05/23/2014 05/23/2014 Abdominal pain, unspecified site 05/23/2014 05/23/2014 documented as of this encounter (statuses as of 10/08/2022) [address]2015 History of Past illness Narrative* Problem Noted Date Resolved Date Esophageal reflux 08/15/2014 08/15/2014 Thrombosed hemorrhoids 08/01/2014 2 Hemorrhage of gastrointestinal tract, unspecifie d 05/23/2014 05/23/2014 Abdominal pain, unspecified site 05/23/2014 05/23/2014 documented as of this encounter (statuses as of 10/31/2022) [address]2015 History of Past illness Narrative* Problem Noted Date Resolved Date Esophageal reflux 08/15/2014 08/15/2014 Thrombosed hemorrhoids 08/01/2014 Hemorrhage of gastrointestinal tract, unspecifie d 05/23/2014 05/23/2014 Abdominal pain, unspecified site 05/23/2014 05/23/2014 documented as of this encounter (statuses as of 11/05/2022) [address]2015 History of Past illness Narrative* Problem Noted Date Diagnosed Date Resolved Date Esophageal reflux 08/15/2014 08/15/2014 Thrombosed hemorrhoids 08/01/201401/28 Hemorrhage of gastrointestin al tract, unspecified 05/23/2014 05/23/2014 Abdominal pain, unspecified site 05/23/2014 05/23/2014 documented as of this encounter (statuses as of 12/30/2022) [address]2015 History of Past illness Narrative* Problem Noted Date Diagnosed Date Resolved Date Esophageal reflux 08/15/2014 08/15/2014 Thrombosed hemorrhoids 08/01/201401/28 Hemorrhage of gastrointestin al tract, unspecified 05/23/2014 05/23/2014 Abdominal pain, unspecified site 05/23/2014 05/23/2014 documented as of this encounter (statuses as of 01/06/2023) [address]2015 History of Past illness Narrative* Problem Noted Date Diagnosed Date Resolved Date Esophageal reflux 08/15/2014 08/15/2014 Thrombosed hemorrhoids 08/01/201401/28 Hemorrhage of gastrointestin al tract, unspecified 05/23/2014 05/23/2014 Abdominal pain, unspecified site 05/23/2014 05/23/2014 documented as of this encounter (statuses as of 01/12/2023) [address]2015 History of Past illness Narrative* Problem Noted Date Diagnosed Date Resolved Date Esophageal reflux 08/15/2014 08/15/2014 Thrombosed hemorrhoids 08/01/201401/28 Hemorrhage of gastrointestin al tract, unspecified 05/23/2014 05/23/2014 Abdominal pain, unspecified site 05/23/2014 05/23/2014 documented as of this encounter (statuses as of 01/13/2023) [address] History of Past illness Narrative* Problem Noted Date Diagnosed Date Resolved Date Esophageal reflux 08/15/2014 08/15/2014 Thrombosed hemorrhoids 08/01/201401/28 Hemorrhage of gastrointestin al tract, unspecified 05/23/2014 05/23/2014 Abdominal pain, unspecified site 05/23/2014 05/23/2014 documented as of this encounter (statuses as of 01/13/2023) [address] History of Past illness Narrative* Problem Noted Date Diagnosed Date Resolved Date Esophageal reflux 08/15/2014 08/15/2014 Thrombosed hemorrhoids 08/01/201401/28 Hemorrhage of gastrointestin al tract, unspecified 05/23/2014 05/23/2014 Abdominal pain, unspecified site 05/23/2014 05/23/2014 documented as of this encounter (statuses as of 01/31/2023) [address] History of Past illness Narrative* Problem Noted Date Diagnosed Date Resolved Date Esophageal reflux 08/15/2014 08/15/2014 Thrombosed hemorrhoids 08/01/201401/28 Hemorrhage of gastrointestin al tract, unspecified 05/23/2014 05/23/2014 Abdominal pain, unspecified site 05/23/2014 05/23/2014 documented as of this encounter (statuses as of 02/02/2023) [address] History of Past illness Narrative* Problem Noted Date Diagnosed Date Resolved Date Esophageal reflux 08/15/2014 08/15/2014 Thrombosed hemorrhoids 08/01/201401/28 Hemorrhage of gastrointestin al tract, unspecified 05/23/2014 05/23/2014 Abdominal pain, unspecified site 05/23/2014 05/23/2014 documented as of this encounter (statuses as of 02/09/2023) [address] History of Past illness Narrative* Problem Noted Date Diagnosed Date Resolved Date Esophageal reflux 08/15/2014 08/15/2014 Thrombosed hemorrhoids 08/01/201401/28 Hemorrhage of gastrointestin al tract, unspecified 05/23/2014 05/23/2014 Abdominal pain, unspecified site 05/23/2014 05/23/2014 documented as of this encounter (statuses as of 02/10/2023) [facility] Narrative* Problem Noted Date Diagnosed Date Resolved Date Esophageal reflux 08/15/2014 08/15/2014 Thrombosed hemorrhoids 08/01/201401/28 Hemorrhage of gastrointestin al tract, unspecified 05/23/2014 05/23/2014 Abdominal pain, unspecified site 05/23/2014 05/23/2014 documented as of this encounter (statuses as of 02/15/2023) [facility] Narrative* Problem Noted Date Diagnosed Date Resolved Date Esophageal reflux 08/15/2014 08/15/2014 Psoriasis 08/07/2014 02/24/2023 Thrombosed hemorrhoids 08/01/201401/28 Hemorrhage of gastrointestin al tract, unspecified 05/23/2014 05/23/2014 Abdominal pain, unspecified site 05/23/2014 05/23/2014 Sprain of neck 04/21/2008 02/24/2023 Contusion of unspecified site 04/17/2008 02/24/2023 PAIN LEG 04/17/2008 02/24/2023 documented as of this encounter (statuses as of 02/25/2023) [facility]arrative* Problem Noted Date Diagnosed Date Resolved Date Esophageal reflux 08/15/2014 08/15/2014 Psoriasis 08/07/2014 02/24/2023 Thrombosed hemorrhoids 08/01/201401/28 Hemorrhage of gastrointestin al tract, unspecified 05/23/2014 05/23/2014 Abdominal pain, unspecified site 05/23/2014 05/23/2014 Sprain of neck 04/21/2008 02/24/2023 Contusion of unspecified site 04/17/2008 02/24/2023 PAIN LEG 04/17/2008 02/24/2023 documented as of this encounter (statuses as of 02/25/2023) [facility] History of Past illness Narrative* Problem Noted Date Diagnosed Date Resolved Date Esophageal reflux 08/15/2014 08/15/2014 Psoriasis 08/07/2014 02/24/2023 Thrombosed hemorrhoids 08/01/201401/28 Hemorrhage of gastrointestin al tract, unspecified 05/23/2014 05/23/2014 Abdominal pain, unspecified site 05/23/2014 05/23/2014 Sprain of neck 04/21/2008 02/24/2023 Contusion of unspecified site 04/17/2008 02/24/2023 PAIN LEG 04/17/2008 02/24/2023 documented as of this encounter (statuses as of 03/07/2023) [facility] History of Past illness Narrative* Problem Noted Date Diagnosed Date Resolved Date Esophageal reflux 08/15/2014 08/15/2014 Psoriasis 08/07/2014 02/24/2023 Thrombosed hemorrhoids 08/01/201401/28 Hemorrhage of gastrointestin al tract, unspecified 05/23/2014 05/23/2014 Abdominal pain, unspecified site 05/23/2014 05/23/2014 Sprain of neck 04/21/2008 02/24/2023 Contusion of unspecified site 04/17/2008 02/24/2023 PAIN LEG 04/17/2008 02/24/2023 documented as of this encounter (statuses as of 03/16/2023) [facility] History of Past illness Narrative* Problem Noted Date Diagnosed Date Resolved Date Esophageal reflux 08/15/2014 08/15/2014 Psoriasis 08/07/2014 02/24/2023 Thrombosed hemorrhoids 08/01/201401/28 Hemorrhage of gastrointestin al tract, unspecified 05/23/2014 05/23/2014 Abdominal pain, unspecified site 05/23/2014 05/23/2014 Sprain of neck 04/21/2008 02/24/2023 Contusion of unspecified site 04/17/2008 02/24/2023 PAIN LEG 04/17/2008 02/24/2023 documented as of this encounter (statuses as of 03/19/2023) [facility] John Friend [facility] June 07, 2023 5:04pm Note Date/Time June 07, 2023 4 :54pm [facility] Medical Records Department [address] [place] [address] Consultation - GI 06/07/23 1652 MR#: [id number] Acct: [id number] Name: CHOCO MALDONADO Rep #:[id number] : 1960 62 From: John Friend DO PCP: Dr. Linda Parish MD Status:REG E R Location: ED HPI Consult Data Date of Consult: 06/07/23 HPI Narrative Reason for Consultation: Gi Bleed HPI Narrative: CHOCO MALDONADO, is a 62 M who presents with abdominal pain, weakness and multiple episodes of black stools in his colostomy bag. He has a past medical history of arthritis, hypertension, GERD, psoriasis, Raynaud's, anxiety, migraines presented to [facility] ED 06/07/2023 due to presyncope in the shower, weakness, and black stool in colostomy bag. Last August patient went to [place] and had perfect diverticulitis and had to have colostomy, has not been able to have it reversed with Dr. Parra yet as patient was still smoking though now he has been tobacco free. Also went to [place] about a month and a half ago and had a blue leg and required a femoral bypass emergently and is on Xarelto. He has been having jet black stool in his colostomy for about a month and has begun to develop some generalized weakness and lightheadedness. In the ED he was found to have a hemoglobin of 5.4 and FOBT positive. His previous hemoglobin was 15. He was given 2 units packed red blood cells in ED and started on Protonix drip, hospitalist contacted for admission. Patient evaluated at bedside with present, they report history as above and that hehad his emergent bypass in October in [place] and then had some sort of revision/repair May 14 that is not in our system. He is continue to have some problems with swelling and pain in that leg and reports that sometimes he will get spasms there and spasms in his abdomen but they occur at random and does nothave any other abdominal pain, has been having intermittent black stools for about a month and they will be black and then somewhat clear up and then will beblack again, over the past 2 to 3 days he has been short of breath, lightheaded,weak and had an episode of presyncope earlier today prompting him to come to theED. Denies any cough or chest pain. He had a CT scan abdomen pelvis in the ED did not show any acute abnormality. [facility] Medical History Arthritis Diverticulitis GERD (gastroesophageal reflux disease) Heart murmur Hypertension Polycythemia Psoriasis Vertigo Home Medications atorvastatin 20 mg tablet 20 mg PO QHS 09/17/15 [History Last Taken Unknown] nifedipine 30 mg tablet,extended release 30 mg PO DAILY raynauds syndrome 09/17/15 [History Last Taken Unknown] omeprazole 10 mg capsule,delayed release 10 mg PO PRN PRN gerd 10/01/17 [History Last Taken Unknown] aspirin 81 mg tablet,delayed release 81 mg PO DAILY 09/20/20 [History Last Taken Unknown] fluoxetine 20 mg capsule 20 mg PO DAILY 09/20/20 [History Last Taken Unknown] ixekizumab 80 mg/mL subcutaneous auto-injector (Taltz Autoinjector) 80 mg subcutQMONTH 09/20/20 [History Last Taken Unknown] rizatriptan 10 mg disintegrating tablet 10 mg PO PRN PRN Migraine Headache 09/20/20 [History Last Taken Unknown] amitriptyline 50 mg tablet 50 mg PO QHS 01/17/22 [History Last Taken Unknown] losartan 25 mg tablet 25 mg PO DAILY 01/17/22 [History Last Taken Unknown] ondansetron 4 mg disintegrating tablet 4 mg PO Q8H PRN nausea and vomiting #10 tabs 01/17/22 [Rx Last Taken Unknown] hydrocodone-acetaminophen 5-325mg 5mg-325mg 1 tab PO Q6H PRN pain 06/07/23 [History Last Taken Unknown] Allergy/AdvReac Type Severity Reaction Status Date / Time verapamil Allergy Rash Verified 01/17/22 19:59 Surgical History Hx of cardiac catheterization Social History Smoking Status: Former smoker substance use type: does not use ROS ROS Narrative General: very cold today HENT: Denies headache, denies stuffy nose, denies sore throat EYES: Denies changes in vision Resp: Denies cough, has been short of breath over the past couple of days Cardiac: Denies chest pain GI: Every now and then gets abdominal spasms that do not seem to be associated with anything else, intermittent black stools in ostomy over the past 1 month, denies nausea/vomiting : Denies changes in urination Extremity: Still gets some swelling and pain in his right lower extremity MSK: Generalized weakness Neuro: Denies any numbness/tingling, presyncopal episode earlier Heme: Denies any bleeding or bruising Skin: Denies rashes Psychiatric: No complaints voiced Physical Exam Narrative General: Alert, oriented HEENT: Atraumatic, normocephalic Eyes: Anicteric, normal conjunctiva, extraocular movements grossly intact Neck: Supple Respiratory: Clear to auscultation bilaterally, normal respiratory effort Cardiovascular: Regular rate and rhythm GI: Soft, nontender, nondistended, black stool present in ostomy Extremities: Right lower extremity warm, slightly swollen compared to left, has healing incision present on inside of right calf/knee Musculoskeletal: Moving all extremities Neuro: No overt focal neurological deficits Skin: No rashes appreciated Psych: Cooperative Lab / Micro Data 06/07/23 13:53 06/07/23 13:55 Labs: Laboratory Results - last 24 hr 06/07/23 13:53: WBC 12.6 H, RBC 2.08 L, Hgb 5.4 L*, Hct 18.0 L, MCV 86.5, MCH 26.0 L, MCHC 30.0 L, RDW Std Deviation 48.1 H, RDW Coeff of Eze 15.3 H, Plt Count 588 H, MPV 8.7, Immature Gran % (Auto) 0.600, Neut % (Auto) 74.8 H, Lymph % (Auto) 18.2 L, [place] % (Auto) 4.2, Eos % (Auto) 1.6, Baso % (Auto) 0.6, Absolute Neuts (auto) 9.5 H, Absolute Lymphs (auto) 2.30, Nucleated RBC % 0.2, Diff Path Review August, Blood Type O POSITIVE, Antibody Screen NEGATIVE, Crossmatch See Detail 06/07/23 13:55: Sodium 139, Potassium 3.9, Chloride 107, Carbon Dioxide 22.0, Anion Gap 10, BUN 15, Creatinine 1.08, Est GFR (MDRD) Af Amer 89, Est GFR (MDRD)Non-Af 74, BUN/Creatinine Ratio 13.9, Glucose 114 H, Calcium 9.1, Total Bilirubin 0.40, Direct Bilirubin 0.10, AST 10 L, ALT 23, Alkaline Phosphatase 91, Troponin I High Sens 7, Total Protein 7.8, Albumin 3.4, Globulin 4.4 H, Lipase 30 Micro: Microbiology 06/07/23 14:30 Stool Stool Occult Blood (VENKATA) - Final Occult Blood Positive Imaging Radiology Impression Abdomen/Pelvis CT 06/07/23 14:33 IMPRESSION: 1. No focal acute inflammatory process. 2. Left sided colostomy. 3. Hepatic steatosis. Electronically Signed: Triston العلي MD at 15:45 EST Reading Location ID and State: [facility] / [place] Tel , Service support , Chest X-Ray 06/07/23 15:25 IMPRESSION: No radiographic evidence of acute cardiopulmonary disease. Electronically Signed: Triston العلي MD at 15:38 EST , Assessment & Plan Assessment/Plan (1) GI bleed: (2) Popliteal artery injury: (3) Psoriasis: (4) Raynaud disease: PLAN: Plan 62 old gentleman with past medical history negative addiction, possible COPD, acute perforated diverticulitis status post colostomy placement with Malone's procedure GI bleed and near syncope on aspirin and Xarelto and Taltz -Hemoglobin 5.4 in ED, last value here was in 2021 and was 15.7 and appears hemoglobin prior to that actually runs high at 15 -Fecal occult positive -Type and cross with plan to transfuse 2 units -Trend H&H -PPI IV -EGD in a.m. Charges/Coding Visit Charges Inpatient E&M: 03687 Init Hosp L3 06/07/23 1704 <Electronically signed by Johngideon Reyes DO> Cosigner Signature (if applicable): CC: Dr. Linda Parish MD~ Signed [facility] Work Phone: Discharge summary Author Ermias Ramirez [facility] June 10, 2023 11:33am Note Date/Time June 10, 2023 1 1:33am [facility] Medical Records Department [address] [place] [address] Discharge Summary 06/10/23 1132 MR#: [id number] Acct: [id number] Name: CHOCO MALDONADO Rep #:[id number] : 1960 62 From: Ermias Ramirez MD PCP: Dr. Linda Parish MD Status:ADM I N Location: [place] [address] Providers Date of Admission: 06/07/23 Date of Discharge: 06/10/23 Primary Care Physician: Dr. Linda Parish MD Consultations 06/07/23 18:49 Consult: Gastroenterology Routine Consulting Provider: [facility] Reason for Consult: GIB EMERGENT Consult: No Notified: Yes Date Notified: 06/07/23 Time Notified: 16:44 Method of Notification: ED Physician Initiated Consult: Vascular Surgery Routine Consulting Provider: Emile Hernandez Reason for Consult: Recent R leg vascular intervention on xeralto and asa EMERGENT Consult: No Notified: Yes Date Notified: 06/07/23 Time Notified: 16:45 Method of Notification: Verbal Reason For Visit: GI BLEED Diagnosis Discharge Diagnosis (1) GI bleed: Status: Acute Code(s): K92.2 - Gastrointestinal hemorrhage, unspecified Plan Patient is a 62-year-old gentleman with recent vascular surgery on systemic anticoagulation with Xarelto who presented with near syncope while taking a shower and dark stools in his colostomy bag. Presented to the emergency department hemoglobin was found to be 5.4. Admitted to monitored bed for subsequent evaluation 1. Acute GI bleed ? Suspected to secondary to upper GI bleed, hemoglobin on admission was 5.4. Patient was typed and crossmatched transfused with 2 unit PRBC started on Protonix drip admitted to monitored bed with consultation placed to GI. Patientis on antiplatelet therapy with aspirin as well as systemic anticoagulation withXarelto but held -06/09/2023: Patient underwent EGD on 06/08/2023 findings as below - Normal esophagus. - Small hiatal hernia. - No gross lesions in the third portion of the duodenum. - No specimens collected. Plan is for patient to repeat endoscopic evaluation with colonoscopy ?06/10/2023;Patient seen currently reports no more bleeding. Underwent colonoscopy 06/10/2023 findings and recommendations as below Preparation of the colon was poor. - Patent end colostomy with healthy appearing mucosa in the sigmoid colon. - Stool in the descending colon, at the splenic flexure, in the transverse colon, in the ascending colon and in the cecum. - No specimens collected. Recommendations : - Discharge patient to home. - Resume previous diet. - Continue present medications. - Repeat colonoscopy because the bowel preparation was suboptimal. Case subsequently discussed with Dr. Reyes with GI plans for patient to be discharged home to follow-up with Dr. Reyes for outpatient capsule endoscopy tocomplete his workup 2. Anemia -secondary to acute blood loss anemia from GI bleed management as discussed above 3. Peripheral arterial disease ? Patient underwent redo of right above-knee popliteal to posterior tibial bypass with reversed right saphenous vein and ligation of prior femoropopliteal trunkbypass on 05/14/2023 at [facility]. Patient discharged on antiplatelet therapy as well as systemic anticoagulation with Xarelto both of which are currently being held given patient presentation ? Patient Xarelto was held on discharge instructed to follow-up with GI as well as his vascular surgeon during prior to resumption 4. Thrombocytosis ? Reactive following patient severe anemia 5. GERD ? On PPI 6. Psoriasis -Uses ixekizumab on outpt basis 7. Raynaud's's -Supportive care, hold nifedipine d/t presyncopal episode 8. Depression with anxiety ? Patient is on Prozac 9. DVT prophylaxis ? Systemic anticoagulation contraindicated given patient presentation Time spent in the patient's overall evaluation,decision-making process, review of diagnostic data, adjustment of management, discussion with other providers, nursing nursing and ancillary staff involved in patient's care documentation, 35 minutes Medications at Discharge Home Medications atorvastatin 20 mg tablet 20 mg PO QHS 09/17/15 nifedipine 30 mg tablet,extended release 30 mg PO DAILY raynauds syndrome 09/17/15 aspirin 81 mg tablet,delayed release 81 mg PO DAILY 09/20/20 fluoxetine 20 mg capsule 20 mg PO DAILY 09/20/20 ixekizumab 80 mg/mL subcutaneous auto-injector (Taltz Autoinjector) 80 mg subcutQMONTH 09/20/20 rizatriptan 10 mg disintegrating tablet 10 mg PO PRN PRN Migraine Headache 09/20/20 amitriptyline 50 mg tablet 50 mg PO QHS 01/17/22 losartan 25 mg tablet 25 mg PO DAILY 01/17/22 ondansetron 4 mg disintegrating tablet 4 mg PO Q8H PRN nausea and vomiting #10 tabs 01/17/22 cyclobenzaprine 10 mg tablet 10 mg PO TID PRN muscle spasms 06/07/23 gabapentin 100 mg capsule 100 mg PO DAILY PRN nerve pain 06/07/23 gabapentin 300 mg capsule 300 mg PO Q12H neuropathy/nerve pain 06/07/23 oxycodone 5 mg tablet 5 mg PO Q6H PRN pain (scale score 4-6) 06/07/23 pantoprazole 40 mg tablet,delayed release 40 mg PO DAILY heart burn 06/07/23 rivaroxaban 20 mg tablet (Xarelto) 20 mg PO QPM blood thinner 06/07/23 iron 150 mg-vit C 60 mg-folate 1 [id number] tablet (Niferex (Sumalate-Quatrefolic)) 1 tab PO DAILY #60 tabs 06/10/23 Hospital Course Summary of Care Provided Minutes Spent on Discharge: 35 Physical Exam Narrative GENERAL: cooperative HEENT: Atraumatic; normocephalic EYES; Anicteric, Normal Conjunctiva NECK; supple, normal thyroid, RESPIRATORY: Diminished to auscultation CARDIOVASCULAR: Regular S1 S2, GI: Soft, nontender, nondistended, black stool present in ostomy : No Renal angle tenderness; EXTREMITIES: Right lower extremity has healing incision present on inside of right calf/knee MUSCULOSKELETAL: no muscle wasting NEURO: Awake; no lateralizing signs. SKIN: No Rash PSYCH; Flat affect Weight / BMI Weight Weight: 86.771 kg Body Mass Index (BMI) 25.9 ABG / Lab / Microbiology Data 06/09/23 07:05 06/09/23 07:05 Microbiology: Microbiology 06/07/23 14:30 Stool Stool Occult Blood (VENKATA) - Final Occult Blood Positive Radiography Diagnostic Testing: Radiology Impression Ankle Brachial Index 06/08/23 07:40 Interpretation Summary Right SAVANNA 1.01, normal. Doppler/PVR waveforms of the right ankle mildly diminished at rest. Left SAVANNA 1.23, normal. Doppler/PVR waveforms of the left leg normal at rest. Ordering Physician: Azalia Freedman Referring Physician: Linda Parish Performed By: Isabel Levine RVT Duplex Scan Lower Extremity Artery 06/08/23 07:40 Interpretation Summary Right SFA-PT bypass patent with elevated velocities throughout. No velocity shift to suggest focal stenosis Ordering Physician: Azalia Freedman Performed By: Seb Mejias RVT D/C Instructions Discharge Diet: No restrictions Discharge Activity: Return to Normal Activity Call your doctor if you observe: Fever of 101 or Higher, Shortness of breath, Fainting spells and Chest pain Meaningful Use Info Meaningful Use Diagnoses (Choose all that apply): None applicable Discharge Plan Admission Admit Date/Time: 06/07/23 16:34 Attending Provider: Ermias Ramirez Primary Care Provider: Linda Parish Consulting Providers: Emile Hernandez; Amber Gonzalez Discharge Orders/Prescriptions Prescriptions: New Niferex (Sumalate-Quatrefolic) 150 mg iron- 60 mg-1 mg tablet 1 tab PO DAILY Qty: 60 0RF Continued atorvastatin 20 MG tablet 20 mg PO QHS nifedipine 30 MG tablet extended release 30 mg PO DAILY aspirin 81 mg tablet,delayed release (DR/EC) 81 mg PO DAILY Patient Comments: TAKE 1 TABLET BY MOUTH EVERY DAY Taltz Autoinjector 80 mg/mL auto-injector 80 mg SUBCUT QMONTH rizatriptan 10 mg tablet,disintegrating 10 mg PO PRN PRN (Reason: Migraine Headache) Patient Comments: TAKE 1 TABLET BY MOUTH NEEDED for migraine, may repeat in 2 (TWO) hours ifneeded fluoxetine 20 mg capsule 20 mg PO DAILY Patient Comments: TAKE 1 CAPSULE BY MOUTH EVERY DAY amitriptyline 50 mg tablet 50 mg PO QHS Patient Comments: TAKE 1 TABLET BY MOUTH DAILY AT BEDTIME losartan 25 mg tablet 25 mg PO DAILY Patient Comments: TAKE 1 TABLET BY MOUTH ONCE DAILY ondansetron 4 mg tablet,disintegrating 4 mg PO Q8H PRN (Reason: nausea and vomiting) Qty: 10 0RF cyclobenzaprine 10 mg tablet 10 mg PO TID PRN Patient Comments: Take 1 tablet by mouth three times a day as needed for muscle spasm for up to7 days. oxycodone 5 mg tablet 5 mg PO Q6H PRN (Reason: pain (scale score 4-6)) Patient Comments: Take 1 tablet by mouth every 6 hours as needed for pain for up to 7 days. gabapentin 300 mg capsule 300 mg PO Q12H Patient Comments: Take 1 capsule oral Twice a day for 28 Days gabapentin 100 mg capsule 100 mg PO DAILY PRN pantoprazole 40 mg tablet,delayed release (DR/EC) 40 mg PO DAILY Patient Comments: TAKE 1 TABLET BY MOUTH DAILY before BREAKFAST. take on empty stomach 30 MINUTES before meal Held Xarelto 20 mg tablet 20 mg PO QPM Hold Instructions: Resume on 07/09/23. Discontinued omeprazole 10 MG capsule,delayed release(DR/EC) 10 mg PO PRN PRN (Reason: gerd) hydrocodone-acetaminophen 5-325 mg tablet 1 tab PO Q6H PRN (Reason: pain) Patient Comments: TAKE 1 TABLET BY MOUTH TWICE DAILY for 28 days. cephalexin 500 mg capsule 500 mg PO DAILY Patient Comments: Take 1 capsule by mouth four times daily for 7 days. Referrals / Follow Up: John Reyes DO [Med Staff - Active Staff] - Within 2 Weeks (For capsule endoscopy) Linda Parish MD [Primary Care Provider] - Within 2 Weeks Disposition Disposition (needs filled in before D/C Order can be placed): Home, Self Care Charges/Coding Visit Charges Inpatient E&M: 59613 Disch Hosp >30min 06/10/23 1133 <Electronically signed by Ermias Ramirez MD> Cosigner Signature (if applicable): CC: Dr. Ermias Ramirez MD; Dr. Linda Parish MD~ Signed [facility] Work Phone: Evaluation + Plan note No data available for this section [facility] Evaluation note* Diagnosis Polycythemia, secondary- Primary [facility] Diagnosis Benign paroxysmal positional vertigo, unspecified laterality [facility] Diagnosis Nonrheumatic aortic valve insufficiency- Primary Aortic valve disorders Raynaud's phenomenon without gangrene Mixed hyperlipidemia SVT (supraventricular tachycardia) (HCC) Other specified cardiac dysrhythmias Polycythemia, secondary Hyperviscosity Macroglobulinemia Bilateral carotid artery stenosis Occlusion and stenosis of carotid artery without mention of cerebral infarction documented in this encounter [facility] noteNo assessment information [facility]WKn[facility] Work Phone: Evaluation note* Diagnosis Primary hypertension- Primary Unspecified essential hypertension Polycythemia, secondary Raynaud's phenomenon without gangrene Gastroesophageal reflux disease, unspecified whether esophagitis present Benign paroxysmal positional vertigo of right ear Migraine with aura, not intractable, without status migrainosus [facility]* Diagnosis Diverticulitis- Primary Diverticulitis of colon (without mention of hemorrhage) [facility]* Diagnosis Diverticulitis- Primary Diverticulitis of colon (without mention of hemorrhage) Leukocytosis, unspecified type [facility]* Diagnosis Diverticulitis- Primary Diverticulitis of colon (without mention of hemorrhage) Need for influenza vaccination Need for prophylactic vaccination and inoculation against influenza Encounter for immunization Need for other specified prophylactic vaccination against single bacterial disease [facility]* Diagnosis Dupuytren's disease of palm- Primary Contracture of palmar fascia [facility]* Diagnosis Dupuytren's disease of palm- Primary Contracture of palmar fascia [facility]* Diagnosis Abdominal pain, unspecified abdominal location- Primary [facility] Diagnosis Dupuytren's disease of palm- Primary Contracture of palmar fascia [facility]* Diagnosis SVT (supraventricular tachycardia) (HCC)- Primary Other specified cardiac dysrhythmias Primary hypertension Unspecified essential hypertension Angina pectoris (HCC) Other and unspecified angina pectoris Raynaud's phenomenon without gangrene Dupuytren's disease of palm Contracture of palmar fascia [facility] Pre-op evaluation- Primary Preoperative examination, unspecified Primary hypertension Unspecified essential hypertension SVT (supraventricular tachycardia) (HCC) Other specified cardiac dysrhythmias Mixed hyperlipidemia Gastroesophageal reflux disease, unspecified whether esophagitis present Polycythemia, secondary Aortic valve insufficiency, etiology of cardiac valve disease unspecified Tobacco use Tobacco use disorder Dupuytren's disease of palm Contracture of palmar fascia [facility]* Diagnosis Post-op pain Other acute postoperative pain [facility] Diagnosis Dupuytren's disease of palm Contracture of palmar fascia Dupuytren's disease of palm of right hand Pain of right hand Pain in limb [facility] Diagnosis Post-op pain Other acute postoperative pain [facility] Diagnosis Pain of right hand- Primary Pain in limb Dupuytren's disease of palm of right hand [facility] Diagnosis Dupuytren's disease of palm- Primary Contracture of palmar fascia [facility] Diagnosis Post-op pain Other acute postoperative pain [facility] Diagnosis Post-op pain Other acute postoperative pain [facility] Diagnosis LLQ abdominal pain- Primary Abdominal pain, left lower quadrant Hx of diverticulitis of colon Personal history of other diseases of digestive system [facility] Diagnosis Perforation of colon (HCC) Perforation of intestine Colostomy in place (HCC) Colostomy status Diverticulitis Diverticulitis of colon (without mention of hemorrhage) [facility] Polycythemia, secondary- Primary Hyperviscosity Macroglobulinemia [facility] Diagnosis Colostomy in place (HCC)- Primary Colostomy status Perforation of colon (HCC) [facility]foration of intestine [facility] Pruritus- Primary Unspecified pruritic disorder Psoriasis Other psoriasis Colostomy in place (HCC) Colostomy status Diverticulitis Diverticulitis of colon (without mention of hemorrhage) [facility]* Diagnosis Dupuytren's disease of palm- Primary Contracture of palmar fascia [facility]* Diagnosis Encounter for screening for lung cancer- Primary Cigarette smoker Tobacco use disorder Lung nodules Other nonspecific abnormal finding of lung field [facility] Diagnosis Lung nodules- Primary Other nonspecific abnormal finding of lung field [facility] Diagnosis Lung nodules- Primary Other nonspecific abnormal finding of lung field [facility]* Diagnosis Perforation of colon (HCC)- Primary Perforation of intestine Colostomy in place (HCC) Colostomy status Diverticulitis Diverticulitis of colon (without mention of hemorrhage) [facility] Diagnosis Left lower quadrant abdominal pain- Primary Perforation of colon (HCC) Perforation of intestine Colostomy in place (HCC) Colostomy [facility] Diagnosis Perforation of intestine (HCC)- Primary Perforation of intestine [facility] Diagnosis Acute occlusion of superficial femoral artery due to thrombosis (HCC)- Primary PVD (peripheral vascular disease) (HCC) Peripheral vascular disease, unspecified Aortic valve insufficiency, etiology of cardiac valve disease unspecified Mixed hyperlipidemia Primary hypertension Unspecified essential hypertension Polycythemia, secondary Dark stools Nonspecific abnormal finding in stool contents [facility]* Diagnosis Peripheral arterial disease (HCC)- Primary Peripheral vascular disease, unspecified Acute post-operative pain [facility]* Diagnosis Black stool- Primary Nonspecific abnormal finding in stool contents Blood in stool [facility]* Diagnosis Polycythemia, secondary- Primary [facility]* Diagnosis Primary hypertension Unspecified essential hypertension [facility]* Diagnosis Peripheral arterial disease (HCC)- Primary Peripheral vascular disease, unspecified [facility] Diagnosis Perforation of intestine (HCC)- Primary Perforation of intestine Diverticulitis Diverticulitis of colon (without mention of hemorrhage) PVD (peripheral vascular disease) (HCC) Peripheral vascular disease, unspecified [facility]* Diagnosis Peripheral arterial disease (HCC)- Primary Peripheral vascular disease, unspecified [facility]* Diagnosis PVD (peripheral vascular disease) (HCC)- Primary Peripheral vascular disease, unspecified Encounter for immunization Need for other specified prophylactic vaccination against single bacterial disease Migraine with aura, not intractable, without status migrainosus Hypnic jerks Other specific disorder of sleep of nonorganic origin Primary hypertension Unspecified essential hypertension Mixed hyperlipidemia Raynaud's phenomenon without gangrene Palpitations SVT (supraventricular tachycardia) Other specified cardiac dysrhythmias Angina pectoris (HCC) Other and unspecified angina pectoris Polycythemia, secondary Alcohol dependence, daily use (HCC) Other and unspecified alcohol dependence, continuous drinking behavior Colostomy in place (HCC) Colostomy status Anxiety with depression Tobacco use Tobacco use disorder [facility]* Diagnosis Peripheral arterial disease (HCC)- Primary Peripheral vascular disease, unspecified [facility] Diagnosis Peripheral arterial disease (HCC)- Primary Peripheral vascular disease, unspecified [facility]* Diagnosis Onset Date Resolution Status GI bleed acute Popliteal artery injury acut e Psoriasis acute Raynaud disease [facility] Work Phone: Evaluation note* Diagnosis Onset Date Resolution Status GI bleed acute Peripheral vascular disease acute Popliteal artery injury acut e Psoriasis acute Raynaud disease acute S/P femoral-popliteal bypass surgery [facility] Work Phone: Evaluation note* Diagnosis Disruption or dehiscence of closure of skin, initial encounter- Primary S/P vascular surgery Other postprocedural status [facility]* Diagnosis Anemia, unspecified type- Primary [facility]* Diagnosis Melena- Primary Blood in stool Migraine with aura, not intractable, without status migrainosus Raynaud's phenomenon without gangrene PVD (peripheral vascular disease) (HCC) Peripheral vascular disease, unspecified Primary hypertension Unspecified essential hypertension Bilateral carotid artery stenosis Occlusion and stenosis of carotid artery without mention of cerebral infarction Edema, unspecified type Gastrointestinal hemorrhage, unspecified gastrointestinal hemorrhage type [facility]* Diagnosis Onset Date Resolution Status Peripheral vascular disease acute Popliteal artery injury acut e Psoriasis acute Raynaud disease acute S/P femoral-popliteal bypass surgery acute GI bleed resolved Acute gastrointestinal bleeding acute Anticoagulant long-term use acute Raynaud disease acute S/P femoral-popliteal bypass surgery acute Signs and symptoms of anemia acute Symptomatic anemia acute Transfusion of blood during current hospitalization acute [facility] Work Phone: Evaluation note* Diagnosis Anemia, unspecified type- Primary [facility]* Diagnosis Onset Date Resolution Status Peripheral vascular disease acute Popliteal artery injury acut e Psoriasis acute Raynaud disease acute S/P femoral-popliteal bypass surgery acute GI bleed resolved Acute gastrointestinal bleeding acute Anticoagulant long-term use acute Raynaud disease acute S/P femoral-popliteal bypass surgery acute Signs and symptoms of anemia acute Symptomatic anemia acute Transfusion of blood during current hospitalization acute GI bleed resolved [facility] Work Phone: Evaluation note* Diagnosis Peripheral arterial disease (HCC)- Primary Peripheral vascular disease, unspecified S/P vascular surgery Other postprocedural status Disruption or dehiscence of closure of skin, initial encounter Neuropathic pain Neuralgia, neuritis, and radiculitis, unspecified [facility]* Diagnosis Peripheral artery disease (HCC)- Primary Peripheral vascular disease, unspecified Iron deficiency anemia due to chronic blood loss Iron deficiency anemia secondary to blood loss (chronic) Migraine without aura, intractable, without status migrainosus [facility]* Diagnosis PAD (peripheral artery disease) (HCC)- Primary Peripheral vascular disease, unspecified PAD (peripheral artery disease) (HCC) Peripheral vascular disease, unspecified [facility]* Diagnosis PAD (peripheral artery disease) (HCC)- Primary Peripheral vascular disease, unspecified PAD (peripheral artery disease) (HCC) Peripheral vascular disease, unspecified [facility] Diagnosis Anemia, unspecified type- Primary Iron deficiency anemia, unspecified iron deficiency anemia type PAD (peripheral artery disease) ([facility]) Peripheral vascular disease, unspecified PAD (peripheral artery disease) ([facility]) Peripheral vascular disease, unspecified [facility]* Diagnosis Malaise- Primary Other malaise and fatigue Aortic valve insufficiency, etiology of cardiac valve disease unspecified PVD (peripheral vascular disease) ([facility]) Peripheral vascular disease, unspecified Primary hypertension Unspecified essential hypertension Gastroesophageal reflux disease, unspecified whether esophagitis present Dizziness Dizziness and giddiness Migraine with aura, not intractable, without status migrainosus SVT (supraventricular tachycardia) ([facility]) Other specified cardiac dysrhythmias Polycythemia, secondary History of GI bleed Personal history of other diseases of digestive system Fatigue, unspecified type SOB (shortness of breath) Shortness of breath [facility]* Diagnosis Onset Date Resolution Status Peripheral vascular disease acute Popliteal artery injury acut e Psoriasis acute Raynaud disease acute S/P femoral-popliteal bypass surgery acute GI bleed resolved Raynaud disease acute S/P femoral-popliteal bypass surgery acute GI bleed resolved Anemia chronic Colostomy in place chronic GI bleed acute [facility] Work Phone: Evaluation note* Diagnosis Onset Date Resolution Status Peripheral vascular disease acute Popliteal artery injury acut e Psoriasis acute Raynaud disease acute S/P femoral-popliteal bypass surgery acute GI bleed resolved Raynaud disease acute S/P femoral-popliteal bypass surgery acute GI bleed resolved Anemia chronic Colostomy in place chronic GI bleed acute Peripheral vascular disease acute S/P femoral-popliteal bypass surgery [facility] Work Phone: Evaluation note* Diagnosis Black stool Nonspecific abnormal finding in stool contents Blood in stool [facility]* Diagnosis Iron deficiency anemia, unspecified iron deficiency anemia type- Primary Gastrointestinal hemorrhage, unspecified gastrointestinal hemorrhage type [facility]* Diagnosis Anemia, unspecified type- Primary [facility]* Diagnosis Gastrointestinal hemorrhage, unspecified gastrointestinal hemorrhage type- Primary PAD (peripheral artery disease) ([facility]) Peripheral vascular disease, unspecified Bypass graft stenosis, subsequent encounter Primary hypertension Unspecified essential hypertension Anemia, unspecified type Anxiety Anxiety state, unspecified Raynaud's phenomenon without gangrene Anxiety with depression [facility]* Diagnosis Gastrointestinal hemorrhage, unspecified gastrointestinal hemorrhage type- Primary Iron deficiency anemia, unspecified iron deficiency anemia type- Primary [facility]* Diagnosis Iron deficiency anemia, unspecified iron deficiency anemia type- Primary documented [facility]* Diagnosis Iron deficiency anemia, unspecified iron deficiency anemia type- Primary [facility]* Diagnosis Polycythemia, secondary- Primary Hyperviscosity Macroglobulinemia Other iron deficiency anemia [facility]* Diagnosis Gastrointestinal hemorrhage, unspecified gastrointestinal hemorrhage type- Primary PAD (peripheral artery disease) (HCC) Peripheral vascular disease, unspecified Bypass graft stenosis, subsequent encounter Anemia, unspecified type Polycythemia, secondary Hyperglycemia Other abnormal glucose [facility]* Diagnosis PAD (peripheral artery disease) (HCC) Peripheral vascular disease, unspecified Bypass graft stenosis, subsequent encounter [facility]* Diagnosis PAD (peripheral artery disease) (HCC)- Primary Peripheral vascular disease, unspecified [facility]* Diagnosis Lung nodules- Primary Other nonspecific abnormal finding of lung field Encounter for screening for lung cancer Former smoker Personal history of tobacco use, presenting hazards to health [facility]* Diagnosis Lung nodules- Primary Other nonspecific abnormal finding of lung field [facility]* Diagnosis Other iron deficiency anemia- Primary [facility]* Diagnosis Coronary artery disease involving tanana coronary artery of tanana heart without angina pectoris- Primary SVT (supraventricular tachycardia) ([facility]) Other specified cardiac dysrhythmias Palpitations Primary hypertension Unspecified essential hypertension Mixed hyperlipidemia Nonrheumatic aortic valve insufficiency Aortic valve disorders Ascending aorta dilatation (HCC) Thoracic aortic ectasia PAD (peripheral artery disease) (HCC) Peripheral vascular disease, unspecified [facility]* Diagnosis Gastrointestinal hemorrhage, unspecified gastrointestinal hemorrhage type- Primary History of creation of ostomy ([facility]) [facility]* Diagnosis Migraine with aura, not intractable, without status migrainosus- Primary Raynaud's phenomenon without gangrene Mixed hyperlipidemia SVT (supraventricular tachycardia) (HCC) Other specified cardiac dysrhythmias PVD (peripheral vascular disease) (HCC) Peripheral vascular disease, unspecified Ascending aorta dilatation (HCC) Thoracic aortic ectasia Gastroesophageal reflux disease, unspecified whether esophagitis present History of GI bleed Personal history of other diseases of digestive system Iron deficiency anemia, unspecified iron deficiency anemia type Polycythemia, secondary Dizziness Dizziness and giddiness Screening for prostate cancer Special screening for malignant neoplasm of prostate [facility]* Diagnosis Encounter for screening for malignant neoplasm of lung in current smoker with 30 pack year history or greater Lung nodules Other nonspecific abnormal finding of lung field Smoker Tobacco use disorder [facility]* Diagnosis LLQ abdominal pain- Primary Abdominal pain, left lower quadrant Gastrointestinal hemorrhage, unspecified gastrointestinal hemorrhage type History of creation of ostomy ([facility]) [facility]* Diagnosis SOB (shortness of breath) Shortness of breath [facility]* Diagnosis Limb ischemia- Primary Unspecified circulatory system disorder PAD (peripheral artery disease) (HCC) Peripheral vascular disease, unspecified [facility]* Diagnosis PVD (peripheral vascular disease) (HCC)- Primary Peripheral vascular disease, unspecified PVD (peripheral vascular disease) (HCC) Peripheral vascular disease, unspecified [facility]* Diagnosis Tobacco use Tobacco use disorder PVD (peripheral vascular disease) (HCC) Peripheral vascular disease, unspecified [facility]* Diagnosis PAD (peripheral artery disease) (HCC)- Primary Peripheral vascular disease, unspecified PVD (peripheral vascular disease) (HCC) Peripheral vascular disease, unspecified [facility]* Diagnosis Perforation of colon (HCC)- Primary Perforation of intestine PVD (peripheral vascular disease) (HCC) Peripheral vascular disease, unspecified [facility] Diagnosis Nonrheumatic aortic valve insufficiency- Primary Aortic valve disorders Mixed hyperlipidemia SVT (supraventricular tachycardia) (HCC) Other specified cardiac dysrhythmias Primary hypertension Unspecified essential hypertension Ascending aorta dilatation (HCC) Thoracic aortic ectasia PVD (peripheral vascular disease) (HCC) Peripheral vascular disease, unspecified [facility]* Diagnosis Rib pain on left side Chest pain, unspecified PVD (peripheral vascular disease) (HCC) Peripheral vascular disease, unspecified [facility]* Diagnosis Tobacco use Tobacco use disorder PVD (peripheral vascular disease) (HCC) Peripheral vascular disease, unspecified documented [facility]* Diagnosis Preprocedural general physical examination- Primary Other specified pre-operative examination PVD (peripheral vascular disease) (HCC) Peripheral vascular disease, unspecified documented in this encounter [facility] note* Diagnosis Gastrointestinal hemorrhage, unspecified gastrointestinal hemorrhage type- Primary Iron deficiency anemia, unspecified iron deficiency anemia type documented [facility] this [facility]* Diagnosis Mixed hyperlipidemia- Primary [facility]* Diagnosis Gastrointestinal hemorrhage, unspecified gastrointestinal hemorrhage type- Primary Iron deficiency anemia, unspecified iron deficiency anemia type documented [facility] this [facility]* Diagnosis History of creation of ostomy (HCC)- Primary Iron deficiency anemia due to chronic blood loss Iron deficiency anemia secondary to blood loss (chronic) documented in this encounter [facility] note* Diagnosis Iron deficiency anemia due to chronic blood loss- Primary Iron deficiency anemia secondary to blood loss (chronic) [facility]* Diagnosis Mixed hyperlipidemia- Primary [facility]* Diagnosis Lung nodules- Primary Other nonspecific abnormal finding of lung field documented [facility]* Diagnosis Lung nodules Other nonspecific abnormal finding of lung field [facility]* Diagnosis Mixed hyperlipidemia- Primary SVT (supraventricular tachycardia) (HCC) Other specified cardiac dysrhythmias PVD (peripheral vascular disease) (HCC) Peripheral vascular disease, unspecified PAD (peripheral artery disease) (HCC) Peripheral vascular disease, unspecified Bypass graft stenosis, subsequent encounter Ascending aorta dilatation (HCC) Thoracic aortic ectasia Gastroesophageal reflux disease, unspecified whether esophagitis present History of GI bleed Personal history of other diseases of digestive system Iron deficiency anemia, unspecified iron deficiency anemia type Psoriasis Other psoriasis Depression with anxiety Dysthymic disorder Hyperviscosity Macroglobulinemia documented [facility]* Diagnosis PAD (peripheral artery disease) (HCC)- Primary Peripheral vascular disease, unspecified [facility]* Diagnosis PAD (peripheral artery disease) (HCC) Peripheral vascular disease, unspecified documented in this encounter [facility] note* Diagnosis PAD (peripheral artery disease) (HCC)- Primary Peripheral vascular disease, unspecified documented in this encounter [facility] note* Diagnosis Rib pain- Primary Chest pain, unspecified documented in this encounter [facility] note* Diagnosis Rib pain Chest pain, unspecified documented in this encounter [facility] note* Diagnosis PAD (peripheral artery disease)- Primary Peripheral vascular disease, unspecified documented in this encounter [facility] note* Diagnosis Peripheral vascular disease- Primary Peripheral vascular disease, unspecified documented in this encounter [facility] note* Diagnosis Peripheral vascular disease Peripheral vascular disease, unspecified documented in this encounter [facility] note* Diagnosis PAD (peripheral artery disease)- Primary Peripheral vascular disease, unspecified documented in this encounter [facility] note* Diagnosis PVD (peripheral vascular disease)- Primary Peripheral vascular disease, unspecified [facility] No data available for this section [facility] Progress note No data available for this section [facility] Reason for referral (narrative)* Outpatient Procedure (Routine) - Additional Clinical Info Needed Specialty Diagnoses / Procedures Referred By Contac t Referred [facility] Diagnoses Nonrheumatic aortic valve insufficiency Procedures ECHO ECHO TTC R-T 2D W/WOM-MODE COMPL SPEC&COLR D Linda Parish MD [address] [place] [address] [facility] [address] [place] [id number] Referral ID Status Reason Start Date Expiration Date Visits Requested Visits Authorized [id number] Additional Clinical Info Needed Auto-Generat ed Referral 11/05/2021 11/05/2022 [facility] Outpatient Procedure (Routine) - Authorized Specialty Diagnoses / Procedures Referred By Contac t Referred To Contact [facility] Diagnoses Peripheral arterial disease (HCC) Procedures PVR ANK PRESS KATIE VAS LAB NON-INVAS PHYSIOLOGIC STD EXTREMITY ART 2 LEVEL Rosi Alonso, DO [address] [place] [address] [address] Referral ID Status Reason Start Date Expiration Date Visits Requested Visits Authorized [id number] Authorized Auto-Generat ed Referral 01/13/2023 01/13/2024 1 1 * Outpatient Procedure (Routine) - Authorized Specialty Diagnoses / Procedures Referred By Contac t Referred To Contact [facility] Diagnoses Peripheral arterial disease (HCC) Procedures US LEG ARTERIAL PERIPH UNL VAS LAB DUP-SCAN LXTR ART/ARTL BPGS UNI/LMTD STUDY Rosi Alonso DO [address] [place] [address] [place] [address] Referral ID Status Reason Start Date Expiration Date Visits Requested Visits Authorized [id number] Authorized Auto-Generat ed Referral 01/13/2023 01/13/2024 1 1 [facility] [facility] for referral (narrative)* Outpatient Procedure (Routine) - Authorized Specialty Diagnoses / Procedures Referred By Contac t Referred To Contact [facility] Diagnoses Peripheral arterial disease (HCC) Procedures PVR ANK PRESS KATIE VAS LAB NON-INVAS PHYSIOLOGIC STD EXTREMITY ART 2 LEVEL Rosi Alonso, DO [address] [place] [address] [address] Referral ID Status Reason Start Date Expiration Date Visits Requested Visits Authorized [id number] Authorized Auto-Generat ed Referral 03/15/2024 1 1 * Outpatient Procedure (Routine) - Authorized Specialty Diagnoses / Procedures Referred By Contac t Referred To Contact [facility] Diagnoses Peripheral arterial disease (HCC) Procedures US LEG ARTERIAL PERIPH UNL VAS LAB DUP-SCAN LXTR ART/ARTL BPGS UNI/LMTD STUDY Rosi Alonso DO [address] [place] [address] [facility] [place] [address] Referral ID Status Reason Start Date Expiration Date Visits Requested Visits Authorized [id number] Authorized Auto-Generat ed Referral 3 03/15/2024 1 1 [facility] for referral (narrative)* Outpatient Procedure (Routine) - Pending Review Specialty Diagnoses / Procedures Referred By Contac t Referred To Contact [facility] Diagnoses SOB (shortness of breath) Procedures ECG COMPLETE ECG ROUTINE ECG W/LEAST 12 LDS W/I&R Linda Parish MD [address] [place] [address] [address] Referral ID Status Reason Start Date Expiration Date Visits Requested Visits Authorized [id number] Pending Review Auto-Generat ed Referral 08/17/2023 08/16/2024 1 1 * Consult, Test, Treat (Routine) - Authorized Specialty Diagnoses / Procedures Referred By Contac t Referred To Contact Cardiology Diagnoses Malaise Procedures CONSULT TO CARDIOLOGY OFFICE/OUTPATIENT NEW HIGH MDM 60 MINUTES Linda Parish MD [address] [place] [address] Referral ID Status Reason Start Date Expiration Date Visits Requested Visits Authorized [id number] Authorized PCP Requested Referral 08/17/2023 08/16/2024 1 1 [facility] for referral (narrative)* Outpatient Procedure (Routine) - Authorized Specialty Diagnoses / Procedures Referred By Contac t Referred To Contact [facility] Diagnoses Iron deficiency anemia, unspecified iron deficiency anemia type Gastrointestinal hemorrhage, unspecified gastrointestinal hemorrhage type Procedures CAPSULE ENDOSCOPY SMALL BOWEL GI TRC IMG INTRALUMINAL ESOPHAGUS-ILEUM W/I&R Jaymie West APRN.SIGNAL SUPERVISOR [address] [place] [address] [facility] [place] [address] [place], [place] [id number] Referral ID Status Reason Start Date Expiration Date Visits Requested Visits Authorized [id number] Authorized Auto-Generat ed Referral 09/06/2023 08/22/2024 1 1 [facility] for referral (narrative)* Outpatient Procedure (Routine) - Authorized Specialty Diagnoses / Procedures Referred By Contac t Referred To Contact [facility] Diagnoses PAD (peripheral artery disease) (HCC) Procedures PVR ANK PRESS KATIE VAS LAB NON-INVAS PHYSIOLOGIC STD EXTREMITY ART [place] [address] [place] [address] [facility] [place] [address] [place] [address] Referral ID Status Reason Start Date Expiration Date Visits Requested Visits Authorized [id number] Authorized Auto-Generat ed Referral 10/06/2023 10/05/2024 1 1 * Outpatient Procedure (Routine) - Authorized Specialty Diagnoses / Procedures Referred By Contac t Referred To Contact [facility] Diagnoses PAD (peripheral artery disease) (HCC) Procedures US LEG ARTERIAL PERIPH UNL VAS LAB DUP-SCAN LXTR ART/ARTL BPGS UNI/[place] [address] [place] [address] [facility] [place] [address] [place] [address] Referral ID Status Reason Start Date Expiration Date Visits Requested Visits Authorized [id number] Authorized Auto-Generat ed Referral 10/06/2023 10/05/2024 1 1 [facility] for referral (narrative)* Diagnostic Procedure Only (Urgent) - Closed Specialty Diagnoses / Procedures Referred By Contac t Referred To Contact XR IMAGING Diagnoses Rib pain on left side Procedures XR RIBS/CHEST 3V AP RIB/OBLS/CXR LEFT RADEX RIBS UNI W/POSTEROANT CH MINIMUM 3 VIEWS Shantelle Campbell, APARTMENT MAINTENANCE WORKER.SIGNAL SUPERVISOR [address] [place] [address] [facility] [place] [address] Referral ID Status Reason Start Date Expiration Date V isits Requested Visits Authorized [id number] Closed Auto-Generate d Referral 07/22/2021 08/21/2022 1 1 [facility] for referral (narrative)* Outpatient Procedure (Routine) - Authorized Specialty Diagnoses / Procedures Referred By Contac t Referred To Contact [facility] Diagnoses PAD (peripheral artery disease) (HCC) Procedures PVR ANK PRESS KATIE VAS LAB NON-INVAS PHYSIOLOGIC STD EXTREMITY ART [place] [address] [place] [address] [facility] [place] [address] [place] [id number] Referral ID Status Reason Start Date Expiration Date Visits Requested Visits Authorized [id number] Authorized Auto-Generat ed Referral 05/10/2024 05/10/2025 1 1 * Outpatient Procedure (Routine) - Authorized Specialty Diagnoses / Procedures Referred By Contac t Referred To Contact [facility] Diagnoses PAD (peripheral artery disease) (HCC) Procedures US LEG ARTERIAL PERIPH UNL VAS LAB DUP-SCAN LXTR ART/ARTL BPGS UNI/[place] [address] [place] [address] [facility] [place] [id number] Referral ID Status Reason Start Date Expiration Date Visits Requested Visits Authorized [id number] Authorized Auto-Generat ed Referral 05/10/2024 05/10/2025 1 1 [facility] for referral (narrative)* Outpatient Procedure (Routine) - Closed Specialty Diagnoses / Procedures Referred By Contac t Referred To Contact [facility] Diagnoses PAD (peripheral artery disease) (HCC) Procedures PVR ANK PRESS KATIE VAS LAB NON-INVAS PHYSIOLOGIC STD EXTREMITY ART 2 [place] [address] [place] [address] [facility] [address] [address] Referral ID Status Reason Start Date Expiration Date V isits Requested Visits Authorized [id number] Closed Auto-Generate d Referral 05/10/2024 05/10/2025 1 1 [facility] for referral (narrative)* Outpatient Procedure (Routine) - Closed Specialty Diagnoses / Procedures Referred By Contac t Referred To Contact [facility] Diagnoses PAD (peripheral artery disease) (HCC) Procedures US LEG ARTERIAL PERIPH UNL VAS LAB DUP-SCAN LXTR ART/ARTL BPGS UNI/[place] [address] [place] [address] [facility] [address] [address] Referral ID Status Reason Start Date Expiration Date V isits Requested Visits Authorized [id number] Closed Auto-Generate d Referral 05/10/2024 05/10/2025 1 1 [facility] for referral (narrative)* Outpatient Procedure (Routine) - Authorized Specialty Diagnoses / Procedures Referred By Contac t Referred To Contact [facility] Diagnoses PAD (peripheral artery disease) (HCC) Procedures PVR ANK PRESS KATIE VAS LAB NON-INVAS PHYSIOLOGIC STD EXTREMITY ART 2 [place] [address] [place] [address] [facility] [place] [address] [place] [address] Referral ID Status Reason Start Date Expiration Date Visits Requested Visits Authorized [id number] Authorized Auto-Generat ed Referral 05/30/2024 05/30/2025 1 1 * Outpatient Procedure (Routine) - Authorized Specialty Diagnoses / Procedures Referred By Contac t Referred To Contact [facility] Diagnoses PAD (peripheral artery disease) (HCC) Procedures US LEG ARTERIAL PERIPH UNL VAS LAB DUP-SCAN LXTR ART/ARTL BPGS UNI/[place] [address] [place] [address] [address] Referral ID Status Reason Start Date Expiration Date Visits Requested Visits Authorized [id number] Authorized Auto-Generat ed Referral 05/30/2024 05/30/2025 1 1 [facility] for [facility] Reason for visit Narrative* Diagnostic Procedure Only (Urgent) - Closed Specialty Diagnoses / Procedures Referred By Contac t Referred To Contact XR IMAGING Diagnoses Rib pain on left side Procedures XR RIBS/CHEST 3V AP RIB/OBLS/CXR LEFT RADEX RIBS UNI W/POSTEROANT CH MINIMUM 3 VIEWS Shantelle Campbell, APARTMENT MAINTENANCE WORKER.SIGNAL SUPERVISOR [address] [place] [phone] [facility] Referral ID Status Reason Start Date Expiration Date V isits Requested Visits Authorized [id number] Closed Auto-Generate d Referral 07/22/2021 08/21/2022 1 1 [facility]* Outpatient Procedure (Routine) - Closed Specialty Diagnoses / Procedures Referred By Contac t Referred To Contact [facility] Diagnoses PAD (peripheral artery disease) (HCC) Procedures PVR ANK PRESS KATIE VAS LAB NON-INVAS PHYSIOLOGIC STD EXTREMITY ART [place] [address] [place] [address] [address] Referral ID Status Reason Start Date Expiration Date V isits Requested Visits Authorized [id number] Closed Auto-Generate d Referral 05/10/2024 05/10/2025 1 1 [facility] for visit Narrative* Outpatient Procedure (Routine) - Closed Specialty Diagnoses / Procedures Referred By Contac t Referred To Contact [facility] Diagnoses PAD (peripheral artery disease) (HCC) Procedures US LEG ARTERIAL PERIPH UNL VAS LAB DUP-SCAN LXTR ART/ARTL BPGS UNI/[place] [address] [place] [address] [address] Referral ID Status Reason Start Date Expiration Date V isits Requested Visits Authorized [id number] Closed Auto-Generate d Referral 05/10/2024 05/10/2025 1 1 [facility] for visit Narrative* Diagnostic Procedure Only (Routine) - Closed Specialty Diagnoses / Procedures Referred By Contac t Referred To Contact XR IMAGING Diagnoses Rib pain Procedures XR RIBS/CHEST 3V AP RIB/OBLS/CXR RIGHT RADEX RIBS UNI W/POSTEROANT CH MINIMUM 3 VIEWS Linda Parish MD [address] [place] [address] Phone: tel: fax: XR IMAGING [facility] Referral ID Status Reason Start Date Expiration Date V isits Requested Visits Authorized [id number] Closed Auto-Generate d Referral 08/09/2024 09/08/2025 1 1 [facility] for visit Narrative* MRI/CT (Routine) - Closed Specialty Diagnoses / Procedures Referred By Contac t Referred To Contact CT IMAGING Diagnoses Peripheral vascular disease Procedures CTA ABD/PEL LOWER EXTREM WO/W IVCON CTA ABDL AORTA&BI ILIOFEM W/CONTRAST&[place] [address] [place] [address] Phone: tel: fax: [place] [address] Referral ID Status Reason Start Date Expiration Date V isits Requested Visits Authorized [id number] Closed Auto-Generate d Referral 09/05/2024 10/05/2025 1 1 [facility] Summary Purpose Family History No Family History Records Found Relationship Condition Age at Onset Recorded Date/T cheryl mother Cardiac disease Unknown Hypertension Unknown father Diabetes mellitus Unknown Advance Directives No Advanced Directives Records Found Date Activated Date Inactivated Comments 09/05/2023 9:48 AM 09/07/2023 9:14 PM Question Answer Comments Full Code Order Discussed With: Patient Date Activated Date Inactivated Comments 08/22/2023 6:01 AM 08/25/2023 10:46 PM Question Answer Comments Full Code Order Discussed With: Patient Date Activated Date Inactivated Comments 05/15/2023 5:04 PM 05/19/2023 9:07 PM Question Answer Comments Full Code Order Discussed With: Patient Date Activated Date Inactivated Comments 04/28/2023 3:52 PM 04/30/2023 6:33 PM Question Answer Comments Full Code Order Discussed With: Patient Date Activated Date Inactivated Comments 08/22/2023 6:01 AM 08/25/2023 10:46 PM Date Activated Date Inactivated Comments 05/15/2023 5:04 PM 05/19/2023 9:07 PM Date Activated Date Inactivated Comments 04/28/2023 3:52 PM 04/30/2023 6:33 PM Documents on File Type Date Recorded 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 Advance Directive(s) 04/16/2021 8:42 AM Advance Directive(s) 04/03/2021 4:06 PM Advance Directive(s) 08/09/2020 7:25 AM Advance Directive(s) 09/24/2017 10:26 AM Documents on File Type Date 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 Advance Directive(s) 04/16/2021 8:42 AM Advance Directive(s) 04/03/2021 4:06 PM Advance Directive(s) 08/09/2020 7:25 AM Advance Directive(s) 09/24/2017 10:26 AM Advance Directive Response Recorded Date/ Time Living Will No October 14, 2021 1:12pm Power of Html Developer No October 14 1:12pm Advance Directive Response Recorded Date/ Time Living Will No January 17, 2022 8:13pm Power of Html Developer No January 8:13pm Advance Directive Response Recorded Date/ Time Living Will No January 17, 2022 7:13pm Power of Html Developer No January 7:13pm Advance Directive Response Recorded Date/ Time Living Will No June 07 2:35pm Power of Html Developer No June 07, 2023 2:35pm Advance Directive Response Recorded Date/ Time Living Will No June 07 6:56pm Power of Html Developer No June 07, 2023 6:56pm Latest Code Status on File Code Status Date Activated Date Inactivated Comments Full Code 05/15/2023 5:04 PM 05/19/2023 9:07 PM Question Answer Comments Full Code Order Discussed With: Patient Code Status History Code Status Date Activated Date Inactivated Comments Full Code 04/28/2023 3:52 PM 04/30/2023 6:33 PM Question Answer Comments Full Code Order Discussed With: Patient Advance Directive Response Recorded Date/ Time Living Will No June 19, 2 024 12:48pm Power of Html Developer No June 19, 2023 12:48pm Advance Directive Response Recorded Date/ Time Living Will No June 19, 2 024 4:39pm Power of Html Developer No June 19, 2023 4:39pm Date Activated Date Inactivated Comments 05/15/2023 5:04 PM 05/19/2023 9:07 PM Date Activated Date Inactivated Comments 04/28/2023 3:52 PM 04/30/2023 6:33 PM Date Activated Date Inactivated Comments 05/15/2023 5:04 PM 05/19/2023 9:07 PM Question Answer Comments Full Code Order Discussed With: Patient Date Activated Date Inactivated Comments 04/28/2023 3:52 PM 04/30/2023 6:33 PM Question Answer Comments Full Code Order Discussed With: Patient Advance Directive Response Recorded Date/ Time Living Will No August 17, 2023 3:38pm Power of Html Developer No August 16 3:38pm Advance Directive Response Recorded Date/ Time Living Will No August 18, 2023 4:10pm Power of Html Developer No August 17 4:10pm Date Activated Date Inactivated Comments 08/22/2023 6:01 AM 08/25/2023 10:46 PM Date Activated Date Inactivated Comments 05/15/2023 5:04 PM 05/19/2023 9:07 PM Date Activated Date Inactivated Comments 04/28/2023 3:52 PM 04/30/2023 6:33 PM Question Answer Comments Full Code Order Discussed With: Patient Date Activated Date Inactivated Comments 09/05/2023 9:48 AM 09/07/2023 9:14 PM Date Activated Date Inactivated Comments 08/22/2023 6:01 AM 08/25/2023 10:46 PM Date Activated Date Inactivated Comments 05/15/2023 5:04 PM 05/19/2023 9:07 PM Date Activated Date Inactivated Comments 04/28/2023 3:52 PM 04/30/2023 6:33 PM Question Answer Comments Full Code Order Discussed With: Patient Chief Complaint and Reason for Visit Chief Complaint DIZZINESS Chief Complaint DIZZINESS SKIN Chief Complaint SKIN ABD PAIN Chief Complaint SKIN ABD PAIN LEFT KNEE PAIN Chief Complaint DUPUYTREN'S DISEASE PALM/RX HERE Chief Complaint weakness GI BLEED weakness Reason for Visit GI bleed Popliteal artery injury Psoriasis Raynaud disease Chief Complaint weakness GI BLEED weakness GI BLEED GI BLEED GI BLEED GI BLEED GI BLEED GI BLEED Reason for Visit GI bleed Peripheral vascular disease Popliteal artery injury Psoriasis Raynaud disease S/P femoral-popliteal bypass surgery Chief Complaint weakness GI BLEED weakness GI BLEED GI BLEED GI BLEED PREOP GI BLEED GI BLEED GI BLEED GI BLEED ACUTE GI BLEED Reason for Visit Peripheral vascular disease Popliteal artery injury Psoriasis Raynaud disease S/P femoral-popliteal bypass surgery GI bleed Acute gastrointestinal bleeding Anticoagulant long-term use Raynaud disease S/P femoral-popliteal bypass surgery Signs and symptoms of anemia Symptomatic anemia Transfusion of blood during current hospitalization Chief Complaint weakness GI BLEED weakness GI BLEED GI BLEED GI BLEED PREOP GI BLEED GI BLEED GI BLEED GI BLEED ACUTE GI BLEED GI BLEEDING GI BLEEDING GI BLEEDING GI BLEEDING AM EKG GI BLEEDING GI BLEEDING GI BLEEDING GI BLEEDING GI BLEEDING GI BLEEDING Reason for Visit Peripheral vascular disease Popliteal artery injury Psoriasis Raynaud disease S/P femoral-popliteal bypass surgery GI bleed Acute gastrointestinal bleeding Anticoagulant long-term use Raynaud disease S/P femoral-popliteal bypass surgery Signs and symptoms of anemia Symptomatic anemia Transfusion of blood during current hospitalization GI bleed Chief Complaint weakness GI BLEED weakness GI BLEED GI BLEED GI BLEED PREOP GI BLEED GI BLEED GI BLEED GI BLEED ACUTE GI BLEED GI BLEEDING GI BLEEDING GI BLEEDING GI BLEEDING AM EKG GI BLEEDING GI BLEEDING GI BLEEDING GI BLEEDING GI BLEEDING GI BLEEDING Cap endo E/R FU abnormal labs, hgb, SOB GI BLEED, ABLA Reason for Visit Peripheral vascular disease Popliteal artery injury Psoriasis Raynaud disease S/P femoral-popliteal bypass surgery GI bleed Raynaud disease S/P femoral-popliteal bypass surgery GI bleed Anemia Colostomy in place GI bleed Chief Complaint weakness GI BLEED weakness GI BLEED GI BLEED GI BLEED PREOP GI BLEED GI BLEED GI BLEED GI BLEED ACUTE GI BLEED GI BLEEDING GI BLEEDING GI BLEEDING GI BLEEDING AM EKG GI BLEEDING GI BLEEDING GI BLEEDING GI BLEEDING GI BLEEDING GI BLEEDING Cap endo E/R FU abnormal labs, hgb, SOB GI BLEED, ABLA GI BLEED, ABLA GI BLEED, ABLA GI BLEED, ABLA Reason for Visit Peripheral vascular disease Popliteal artery injury Psoriasis Raynaud disease S/P femoral-popliteal bypass surgery GI bleed Raynaud disease S/P femoral-popliteal bypass surgery GI bleed Anemia Colostomy in place GI bleed Peripheral vascular disease S/P femoral-popliteal bypass surgery Reason for Referral Specialty Diagnoses / Procedures Referred By Maribel connell Referred To Contact CT IMAGING Diagnoses Tobacco use Procedures CT LUNG SCREEN WO IVCON COMPUTED TOMOGRAPHY THORAX LW DOSE LNG CA SCR Mehnaz- Nanci Ingram D, APARTMENT MAINTENANCE WORKER.SIGNAL SUPERVISOR [address] [place] [address] [place] [address] Referral ID Status Reason Start Date Expiration Date V isits Requested Visits Authorized [id number] Closed Auto-Generate d Referral 05/16/2022 07/15/2022 1 1 Specialty Diagnoses / Procedures Referred By Maribel connell Referred To Contact Colon and Rectal Surgery Diagnoses History of creation of ostomy (HCC) Procedures CONSULT TO COLO-RECTAL SURGERY OFFICE/OUTPATIENT [facility] 60 MINUTES Paulette Ott PA-C 1 [facility] [address] [place] [address] Referral ID Status Reason Start Date Expiration Date Visits Requested Visits Authorized [id number] Authorized PCP Requested Referral 11/12/2023 11/11/2024 1 1 Specialty Diagnoses / Procedures Referred By Contac t Referred To Contact CT IMAGING Diagnoses Lung nodules Encounter for screening for lung cancer Former smoker Procedures CT LUNG SCREEN WO IVCON COMPUTED TOMOGRAPHY THORAX LW DOSE LNG CA SCR Mehnaz- Leslie Ibrahim, APARTMENT MAINTENANCE WORKER.SIGNAL SUPERVISOR [address] [place] [phone] [facility] [place] [address] Referral ID Status Reason Start Date Expiration Date Visits Requested Visits Authorized [id number] Authorized Auto-Generat ed Referral 10/11/2023 11/09/2024 1 1 Specialty Diagnoses / Procedures Referred By Contac t Referred To Contact Vascular Surgery Diagnoses PAD (peripheral artery disease) (HCC) Bypass graft stenosis, subsequent encounter Procedures CONSULT TO VASCULAR SURGERY OFFICE/OUTPATIENT [facility] 60 MINUTES Linda Parish MD [address] [place] [id number] Referral ID Status Reason Start Date Expiration Date Visits Requested Visits Authorized [id number] Authorized PCP Requested Referral 10/05/2023 10/04/2024 1 1 Specialty Diagnoses / Procedures Referred By Contac t Referred To Contact Gastroenterology Diagnoses Gastrointestinal hemorrhage, unspecified gastrointestinal hemorrhage type Procedures CONSULT TO GASTROENTEROLOGY OFFICE/OUTPATIENT [facility] 60 MINUTES Linda Parish MD [address] [place] [id number] Referral ID Status Reason Start Date Expiration Date Visits Requested Visits Authorized [id number] Authorized PCP Requested Referral 10/05/2023 10/04/2024 1 1 Specialty Diagnoses / Procedures Referred By Contac t Referred To Contact [facility] Diagnoses Peripheral arterial disease (HCC) Procedures PT REHAB FOLLOW UP ORDER THERAPEUTIC EXERCISES RE, EA 15 MIN. Giovani Triplett, GWENDOLYN [facility] [place] [address] [place] [address] Referral ID Status Reason Start Date Expiration Date Visits Requested Visits Authorized [id number] Pending Review PCP Requested Referral Auto-Generate d Referral 3 05/25/2023 1 1 Specialty Diagnoses / Procedures Referred By Contac t Referred To Contact General Surgery Diagnoses Black stool Blood in stool Procedures CONSULT TO GENERAL SURGERY OFFICE/OUTPATIENT [facility] MDM 60-74 MINUTES Linda Parish MD [address] [place] [address] Referral ID Status Reason Start Date Expiration Date Visits Requested Visits Authorized [id number] Authorized PCP Requested Referral 01/13/2023 01/13/2024 1 1 Specialty Diagnoses / Procedures Referred By Contac t Referred To Contact CT IMAGING Diagnoses Left lower quadrant abdominal pain Procedures CT ABD/PEL W IVCON CT ABD & PELVIS W/CONTRAST Bruno Parra MD [address] [place] [address] Ct Imaging Referral ID Status Reason Start Date Expiration Date Visits Requested Visits Authorized [id number] Pending Review Auto-Generat ed Referral 10/27/2022 11/26/2023 2 2 Specialty Diagnoses / Procedures Referred By Contac t Referred To Contact CT IMAGING Diagnoses Lung nodules Procedures CT LUNG FOLLOWUP WO IVCON DIAGNOSTIC COMPUTED TOMOGRAPHY THORAX W/O CNTRST Nanci Ingram, APARTMENT MAINTENANCE WORKER.SIGNAL SUPERVISOR [address] [place] [address] Ct Imaging Referral ID Status Reason Start Date Expiration Date Visits Requested Visits Authorized [id number] Pending Review Auto-Generat ed Referral 09/09/2022 10/09/2023 1 1 Specialty Diagnoses / Procedures Referred By Contac t Referred To Contact CT IMAGING Diagnoses Encounter for screening for lung cancer Cigarette smoker Lung nodules Procedures CT LUNG SCREEN WO IVCON COMPUTED TOMOGRAPHY THORAX LW DOSE LNG CA SCR C- Nanci Ingram, APARTMENT MAINTENANCE WORKER.SIGNAL SUPERVISOR [address] [place] [address] Ct Imaging Referral ID Status Reason Start Date Expiration Date Visits Requested Visits Authorized [id number] Pending Review Auto-Generat ed Referral 09/07/2022 10/07/2023 1 1 Specialty Diagnoses / Procedures Referred By Contac t Referred To Contact [facility] Diagnoses Dupuytren's disease of palm Procedures CONSULT TO PSYCHIATRIC ORDERLY OCCUPATIONAL THERAPY EVAL HIGH COMPLEX 60 MINS Rebecca Santana, PA-C [address] [place] [address] [facility] [place] [address] [place] [address] Referral ID Status Reason Start Date Expiration Date Visits Requested Visits Authorized [id number] Pending Review Auto-Generat ed Referral 05/07/2022 05/07/2023 1 1 Additional Source Comments (unrecognized sect ion and content) No Status Records FoundNo Status Records FoundNo Status Records FoundNo Status Records FoundNo Status Records FoundNo Status Records FoundNo Status Records FoundNo Status Records FoundNo Status Records FoundNo Status Records Found INFORMATION SOURCE (unrecogn ized section and content) DATE CREATED AUTHOR 02/08/2019 [facility] DATE CREATED AUTHOR AUTHOR'S ORGANIZ ATION 11/11/2021 [facility] ([place]) DATE CREATED AUTHOR AUTHOR'S ORGANIZ ATION 07/13/2022 [facility] DATE CREATED AUTHOR AUTHOR'S ORGANIZ ATION 10/30/2023 [facility] DATE CREATED AUTHOR AUTHOR'S ORGANIZ ATION 03/30/2024 [facility] DATE CREATED AUTHOR AUTHOR'S ORGANIZ ATION 05/31/2024 [facility] DATE CREATED AUTHOR AUTHOR'S ORGANIZ ATION 08/18/2024 [facility] DATE CREATED AUTHOR AUTHOR'S ORGANIZ ATION 09/12/[address] [facility] DATE CREATED AUTHOR AUTHOR'S ORGANIZ ATION 10/10/2024 [facility] DATE CREATED AUTHOR AUTHOR'S ORGANIZ ATION 10/11/2024 [facility] Source Comments (unrecognize d section and content) In the event this informatio n is protected by the Federal Confidentiality of Alcohol and Drug Abuse Patient Records regulations: The Federal rules restrict any use of the information to criminally investigate or prosecute any alcohol or drug abuse patient.[facility] the event this information is protected by the Federal Confidentiality of Alcohol and Drug Abuse Patient Records regulations: The Federal rules restrict any use of the information to criminally investigate or prosecute any alcohol or drug abuse patient.[facility] HospitalIn the event this information is protected by the Federal Confidentiality of Alcohol and Drug Abuse Patient Records regulations: The Federal rules restrict any use of the information to criminally investigate or prosecute any alcohol or drug abuse patient.[facility] HospitalIn the event this information is protected by the Federal Confidentiality of Alcohol and Drug Abuse Patient Records regulations: The Federal rules restrict any use of the information to criminally investigate or prosecute any alcohol or drug abuse patient.[facility] HospitalIn the event this information is protected by the Federal Confidentiality of Alcohol and Drug Abuse Patient Records regulations: The Federal rules restrict any use of the information to criminally investigate or prosecute any alcohol or drug abuse patient.[facility] HospitalIn the event this information is protected by the Federal Confidentiality of Alcohol and Drug Abuse Patient Records regulations: The Federal rules restrict any use of the information to criminally investigate or prosecute any alcohol or drug abuse patient.[facility] HospitalIn the event this information is protected by the Federal Confidentiality of Alcohol and Drug Abuse Patient Records regulations: The Federal rules restrict any use of the information to criminally investigate or prosecute any alcohol or drug abuse patient.[facility] HospitalIn the event this information is protected by the Federal Confidentiality of Alcohol and Drug Abuse Patient Records regulations: The Federal rules restrict any use of the information to criminally investigate or prosecute any alcohol or drug abuse patient.[facility] HospitalIn the event this information is protected by the Federal Confidentiality of Alcohol and Drug Abuse Patient Records regulations: The Federal rules restrict any use of the information to criminally investigate or prosecute any alcohol or drug abuse patient.[facility] HospitalIn the event this information is protected by the Federal Confidentiality of Alcohol and Drug Abuse Patient Records regulations: The Federal rules restrict any use of the information to criminally investigate or prosecute any alcohol or drug abuse patient.[facility] HospitalIn the event this information is protected by the Federal Confidentiality of Alcohol and Drug Abuse Patient Records regulations: The Federal rules restrict any use of the information to criminally investigate or prosecute any alcohol or drug abuse patient.[facility] HospitalIn the event this information is protected by the Federal Confidentiality of Alcohol and Drug Abuse Patient Records regulations: The Federal rules restrict any use of the information to criminally investigate or prosecute any alcohol or drug abuse patient.[facility] HospitalIn the event this information is protected by the Federal Confidentiality of Alcohol and Drug Abuse Patient Records regulations: The Federal rules restrict any use of the information to criminally investigate or prosecute any alcohol or drug abuse patient.[facility] HospitalIn the event this information is protected by the Federal Confidentiality of Alcohol and Drug Abuse Patient Records regulations: The Federal rules restrict any use of the information to criminally investigate or prosecute any alcohol or drug abuse patient.[facility] HospitalIn the event this information is protected by the Federal Confidentiality of Alcohol and Drug Abuse Patient Records regulations: The Federal rules restrict any use of the information to criminally investigate or prosecute any alcohol or drug abuse patient.[facility] HospitalIn the event this information is protected by the Federal Confidentiality of Alcohol and Drug Abuse Patient Records regulations: The Federal rules restrict any use of the information to criminally investigate or prosecute any alcohol or drug abuse patient.[facility] HospitalIn the event this information is protected by the Federal Confidentiality of Alcohol and Drug Abuse Patient Records regulations: The Federal rules restrict any use of the information to criminally investigate or prosecute any alcohol or drug abuse patient.[facility] HospitalIn the event this information is protected by the Federal Confidentiality of Alcohol and Drug Abuse Patient Records regulations: The Federal rules restrict any use of the information to criminally investigate or prosecute any alcohol or drug abuse patient.[facility] HospitalIn the event this information is protected by the Federal Confidentiality of Alcohol and Drug Abuse Patient Records regulations: The Federal rules restrict any use of the information to criminally investigate or prosecute any alcohol or drug abuse patient.[facility] HospitalIn the event this information is protected by the Federal Confidentiality of Alcohol and Drug Abuse Patient Records regulations: The Federal rules restrict any use of the information to criminally investigate or prosecute any alcohol or drug abuse patient.[facility] HospitalIn the event this information is protected by the Federal Confidentiality of Alcohol and Drug Abuse Patient Records regulations: The Federal rules restrict any use of the information to criminally investigate or prosecute any alcohol or drug abuse patient.[facility] HospitalIn the event this information is protected by the Federal Confidentiality of Alcohol and Drug Abuse Patient Records regulations: The Federal rules restrict any use of the information to criminally investigate or prosecute any alcohol or drug abuse patient.[facility] HospitalIn the event this information is protected by the Federal Confidentiality of Alcohol and Drug Abuse Patient Records regulations: The Federal rules restrict any use of the information to criminally investigate or prosecute any alcohol or drug abuse patient.[facility] HospitalIn the event this information is protected by the Federal Confidentiality of Alcohol and Drug Abuse Patient Records regulations: The Federal rules restrict any use of the information to criminally investigate or prosecute any alcohol or drug abuse patient.[facility] HospitalIn the event this information is protected by the Federal Confidentiality of Alcohol and Drug Abuse Patient Records regulations: The Federal rules restrict any use of the information to criminally investigate or prosecute any alcohol or drug abuse patient.[facility] HospitalIn the event this information is protected by the Federal Confidentiality of Alcohol and Drug Abuse Patient Records regulations: The Federal rules restrict any use of the information to criminally investigate or prosecute any alcohol or drug abuse patient.[facility] HospitalIn the event this information is protected by the Federal Confidentiality of Alcohol and Drug Abuse Patient Records regulations: The Federal rules restrict any use of the information to criminally investigate or prosecute any alcohol or drug abuse patient.[facility] HospitalIn the event this information is protected by the Federal Confidentiality of Alcohol and Drug Abuse Patient Records regulations: The Federal rules restrict any use of the information to criminally investigate or prosecute any alcohol or drug abuse patient.[facility] HospitalIn the event this information is protected by the Federal Confidentiality of Alcohol and Drug Abuse Patient Records regulations: The Federal rules restrict any use of the information to criminally investigate or prosecute any alcohol or drug abuse patient.[facility] HospitalIn the event this information is protected by the Federal Confidentiality of Alcohol and Drug Abuse Patient Records regulations: The Federal rules restrict any use of the information to criminally investigate or prosecute any alcohol or drug abuse patient.[facility] HospitalIn the event this information is protected by the Federal Confidentiality of Alcohol and Drug Abuse Patient Records regulations: The Federal rules restrict any use of the information to criminally investigate or prosecute any alcohol or drug abuse patient.[facility] HospitalIn the event this information is protected by the Federal Confidentiality of Alcohol and Drug Abuse Patient Records regulations: The Federal rules restrict any use of the information to criminally investigate or prosecute any alcohol or drug abuse patient.[facility] HospitalIn the event this information is protected by the Federal Confidentiality of Alcohol and Drug Abuse Patient Records regulations: The Federal rules restrict any use of the information to criminally investigate or prosecute any alcohol or drug abuse patient.[facility] HospitalIn the event this information is protected by the Federal Confidentiality of Alcohol and Drug Abuse Patient Records regulations: The Federal rules restrict any use of the information to criminally investigate or prosecute any alcohol or drug abuse patient.[facility] HospitalIn the event this information is protected by the Federal Confidentiality of Alcohol and Drug Abuse Patient Records regulations: The Federal rules restrict any use of the information to criminally investigate or prosecute any alcohol or drug abuse patient.[facility] HospitalIn the event this information is protected by the Federal Confidentiality of Alcohol and Drug Abuse Patient Records regulations: The Federal rules restrict any use of the information to criminally investigate or prosecute any alcohol or drug abuse patient.[facility] HospitalIn the event this information is protected by the Federal Confidentiality of Alcohol and Drug Abuse Patient Records regulations: The Federal rules restrict any use of the information to criminally investigate or prosecute any alcohol or drug abuse patient.[facility] HospitalIn the event this information is protected by the Federal Confidentiality of Alcohol and Drug Abuse Patient Records regulations: The Federal rules restrict any use of the information to criminally investigate or prosecute any alcohol or drug abuse patient.[facility] HospitalIn the event this information is protected by the Federal Confidentiality of Alcohol and Drug Abuse Patient Records regulations: The Federal rules restrict any use of the information to criminally investigate or prosecute any alcohol or drug abuse patient.[facility] HospitalIn the event this information is protected by the Federal Confidentiality of Alcohol and Drug Abuse Patient Records regulations: The Federal rules restrict any use of the information to criminally investigate or prosecute any alcohol or drug abuse patient.[facility] HospitalIn the event this information is protected by the Federal Confidentiality of Alcohol and Drug Abuse Patient Records regulations: The Federal rules restrict any use of the information to criminally investigate or prosecute any alcohol or drug abuse patient.[facility] HospitalIn the event this information is protected by the Federal Confidentiality of Alcohol and Drug Abuse Patient Records regulations: The Federal rules restrict any use of the information to criminally investigate or prosecute any alcohol or drug abuse patient.[facility] HospitalIn the event this information is protected by the Federal Confidentiality of Alcohol and Drug Abuse Patient Records regulations: The Federal rules restrict any use of the information to criminally investigate or prosecute any alcohol or drug abuse patient.[facility] HospitalIn the event this information is protected by the Federal Confidentiality of Alcohol and Drug Abuse Patient Records regulations: The Federal rules restrict any use of the information to criminally investigate or prosecute any alcohol or drug abuse patient.[facility] HospitalIn the event this information is protected by the Federal Confidentiality of Alcohol and Drug Abuse Patient Records regulations: The Federal rules restrict any use of the information to criminally investigate or prosecute any alcohol or drug abuse patient.[facility] HospitalIn the event this information is protected by the Federal Confidentiality of Alcohol and Drug Abuse Patient Records regulations: The Federal rules restrict any use of the information to criminally investigate or prosecute any alcohol or drug abuse patient.[facility] HospitalIn the event this information is protected by the Federal Confidentiality of Alcohol and Drug Abuse Patient Records regulations: The Federal rules restrict any use of the information to criminally investigate or prosecute any alcohol or drug abuse patient.[facility] HospitalIn the event this information is protected by the Federal Confidentiality of Alcohol and Drug Abuse Patient Records regulations: The Federal rules restrict any use of the information to criminally investigate or prosecute any alcohol or drug abuse patient.[facility] HospitalIn the event this information is protected by the Federal Confidentiality of Alcohol and Drug Abuse Patient Records regulations: The Federal rules restrict any use of the information to criminally investigate or prosecute any alcohol or drug abuse patient.[facility] HospitalIn the event this information is protected by the Federal Confidentiality of Alcohol and Drug Abuse Patient Records regulations: The Federal rules restrict any use of the information to criminally investigate or prosecute any alcohol or drug abuse patient.[facility] HospitalIn the event this information is protected by the Federal Confidentiality of Alcohol and Drug Abuse Patient Records regulations: The Federal rules restrict any use of the information to criminally investigate or prosecute any alcohol or drug abuse patient.[facility] HospitalIn the event this information is protected by the Federal Confidentiality of Alcohol and Drug Abuse Patient Records regulations: The Federal rules restrict any use of the information to criminally investigate or prosecute any alcohol or drug abuse patient.[facility] HospitalIn the event this information is protected by the Federal Confidentiality of Alcohol and Drug Abuse Patient Records regulations: The Federal rules restrict any use of the information to criminally investigate or prosecute any alcohol or drug abuse patient.[facility] HospitalIn the event this information is protected by the Federal Confidentiality of Alcohol and Drug Abuse Patient Records regulations: The Federal rules restrict any use of the information to criminally investigate or prosecute any alcohol or drug abuse patient.[facility] HospitalIn the event this information is protected by the Federal Confidentiality of Alcohol and Drug Abuse Patient Records regulations: The Federal rules restrict any use of the information to criminally investigate or prosecute any alcohol or drug abuse patient.[facility] HospitalIn the event this information is protected by the Federal Confidentiality of Alcohol and Drug Abuse Patient Records regulations: The Federal rules restrict any use of the information to criminally investigate or prosecute any alcohol or drug abuse patient.[facility] HospitalIn the event this information is protected by the Federal Confidentiality of Alcohol and Drug Abuse Patient Records regulations: The Federal rules restrict any use of the information to criminally investigate or prosecute any alcohol or drug abuse patient.[facility] HospitalIn the event this information is protected by the Federal Confidentiality of Alcohol and Drug Abuse Patient Records regulations: The Federal rules restrict any use of the information to criminally investigate or prosecute any alcohol or drug abuse patient.[facility] HospitalIn the event this information is protected by the Federal Confidentiality of Alcohol and Drug Abuse Patient Records regulations: The Federal rules restrict any use of the information to criminally investigate or prosecute any alcohol or drug abuse patient.[facility] HospitalIn the event this information is protected by the Federal Confidentiality of Alcohol and Drug Abuse Patient Records regulations: The Federal rules restrict any use of the information to criminally investigate or prosecute any alcohol or drug abuse patient.[facility] HospitalIn the event this information is protected by the Federal Confidentiality of Alcohol and Drug Abuse Patient Records regulations: The Federal rules restrict any use of the information to criminally investigate or prosecute any alcohol or drug abuse patient.[facility] HospitalIn the event this information is protected by the Federal Confidentiality of Alcohol and Drug Abuse Patient Records regulations: The Federal rules restrict any use of the information to criminally investigate or prosecute any alcohol or drug abuse patient.[facility] HospitalIn the event this information is protected by the Federal Confidentiality of Alcohol and Drug Abuse Patient Records regulations: The Federal rules restrict any use of the information to criminally investigate or prosecute any alcohol or drug abuse patient.[facility] HospitalIn the event this information is protected by the Federal Confidentiality of Alcohol and Drug Abuse Patient Records regulations: The Federal rules restrict any use of the information to criminally investigate or prosecute any alcohol or drug abuse patient.[facility] HospitalIn the event this information is protected by the Federal Confidentiality of Alcohol and Drug Abuse Patient Records regulations: The Federal rules restrict any use of the information to criminally investigate or prosecute any alcohol or drug abuse patient.[facility] HospitalIn the event this information is protected by the Federal Confidentiality of Alcohol and Drug Abuse Patient Records regulations: The Federal rules restrict any use of the information to criminally investigate or prosecute any alcohol or drug abuse patient.[facility] HospitalIn the event this information is protected by the Federal Confidentiality of Alcohol and Drug Abuse Patient Records regulations: The Federal rules restrict any use of the information to criminally investigate or prosecute any alcohol or drug abuse patient.[facility] HospitalIn the event this information is protected by the Federal Confidentiality of Alcohol and Drug Abuse Patient Records regulations: The Federal rules restrict any use of the information to criminally investigate or prosecute any alcohol or drug abuse patient.[facility] HospitalIn the event this information is protected by the Federal Confidentiality of Alcohol and Drug Abuse Patient Records regulations: The Federal rules restrict any use of the information to criminally investigate or prosecute any alcohol or drug abuse patient.[facility] HospitalIn the event this information is protected by the Federal Confidentiality of Alcohol and Drug Abuse Patient Records regulations: The Federal rules restrict any use of the information to criminally investigate or prosecute any alcohol or drug abuse patient.[facility] HospitalIn the event this information is protected by the Federal Confidentiality of Alcohol and Drug Abuse Patient Records regulations: The Federal rules restrict any use of the information to criminally investigate or prosecute any alcohol or drug abuse patient.[facility] HospitalIn the event this information is protected by the Federal Confidentiality of Alcohol and Drug Abuse Patient Records regulations: The Federal rules restrict any use of the information to criminally investigate or prosecute any alcohol or drug abuse patient.[facility] HospitalIn the event this information is protected by the Federal Confidentiality of Alcohol and Drug Abuse Patient Records regulations: The Federal rules restrict any use of the information to criminally investigate or prosecute any alcohol or drug abuse patient.[facility] HospitalIn the event this information is protected by the Federal Confidentiality of Alcohol and Drug Abuse Patient Records regulations: The Federal rules restrict any use of the information to criminally investigate or prosecute any alcohol or drug abuse patient.[facility] HospitalIn the event this information is protected by the Federal Confidentiality of Alcohol and Drug Abuse Patient Records regulations: The Federal rules restrict any use of the information to criminally investigate or prosecute any alcohol or drug abuse patient.[facility] HospitalIn the event this information is protected by the Federal Confidentiality of Alcohol and Drug Abuse Patient Records regulations: The Federal rules restrict any use of the information to criminally investigate or prosecute any alcohol or drug abuse patient.[facility] HospitalIn the event this information is protected by the Federal Confidentiality of Alcohol and Drug Abuse Patient Records regulations: The Federal rules restrict any use of the information to criminally investigate or prosecute any alcohol or drug abuse patient.[facility] HospitalIn the event this information is protected by the Federal Confidentiality of Alcohol and Drug Abuse Patient Records regulations: The Federal rules restrict any use of the information to criminally investigate or prosecute any alcohol or drug abuse patient.[facility] HospitalIn the event this information is protected by the Federal Confidentiality of Alcohol and Drug Abuse Patient Records regulations: The Federal rules restrict any use of the information to criminally investigate or prosecute any alcohol or drug abuse patient.[facility] HospitalIn the event this information is protected by the Federal Confidentiality of Alcohol and Drug Abuse Patient Records regulations: The Federal rules restrict any use of the information to criminally investigate or prosecute any alcohol or drug abuse patient.[facility] HospitalIn the event this information is protected by the Federal Confidentiality of Alcohol and Drug Abuse Patient Records regulations: The Federal rules restrict any use of the information to criminally investigate or prosecute any alcohol or drug abuse patient.[facility] HospitalIn the event this information is protected by the Federal Confidentiality of Alcohol and Drug Abuse Patient Records regulations: The Federal rules restrict any use of the information to criminally investigate or prosecute any alcohol or drug abuse patient.[facility] HospitalIn the event this information is protected by the Federal Confidentiality of Alcohol and Drug Abuse Patient Records regulations: The Federal rules restrict any use of the information to criminally investigate or prosecute any alcohol or drug abuse patient.[facility] HospitalIn the event this information is protected by the Federal Confidentiality of Alcohol and Drug Abuse Patient Records regulations: The Federal rules restrict any use of the information to criminally investigate or prosecute any alcohol or drug abuse patient.[facility] HospitalIn the event this information is protected by the Federal Confidentiality of Alcohol and Drug Abuse Patient Records regulations: The Federal rules restrict any use of the information to criminally investigate or prosecute any alcohol or drug abuse patient.[facility] HospitalIn the event this information is protected by the Federal Confidentiality of Alcohol and Drug Abuse Patient Records regulations: The Federal rules restrict any use of the information to criminally investigate or prosecute any alcohol or drug abuse patient.[facility] HospitalIn the event this information is protected by the Federal Confidentiality of Alcohol and Drug Abuse Patient Records regulations: The Federal rules restrict any use of the information to criminally investigate or prosecute any alcohol or drug abuse patient.[facility] HospitalIn the event this information is protected by the Federal Confidentiality of Alcohol and Drug Abuse Patient Records regulations: The Federal rules restrict any use of the information to criminally investigate or prosecute any alcohol or drug abuse patient.[facility] HospitalIn the event this information is protected by the Federal Confidentiality of Alcohol and Drug Abuse Patient Records regulations: The Federal rules restrict any use of the information to criminally investigate or prosecute any alcohol or drug abuse patient.[facility] HospitalIn the event this information is protected by the Federal Confidentiality of Alcohol and Drug Abuse Patient Records regulations: The Federal rules restrict any use of the information to criminally investigate or prosecute any alcohol or drug abuse patient.[facility] HospitalIn the event this information is protected by the Federal Confidentiality of Alcohol and Drug Abuse Patient Records regulations: The Federal rules restrict any use of the information to criminally investigate or prosecute any alcohol or drug abuse patient.[facility] HospitalIn the event this information is protected by the Federal Confidentiality of Alcohol and Drug Abuse Patient Records regulations: The Federal rules restrict any use of the information to criminally investigate or prosecute any alcohol or drug abuse patient.[facility] HospitalIn the event this information is protected by the Federal Confidentiality of Alcohol and Drug Abuse Patient Records regulations: The Federal rules restrict any use of the information to criminally investigate or prosecute any alcohol or drug abuse patient.[facility] HospitalIn the event this information is protected by the Federal Confidentiality of Alcohol and Drug Abuse Patient Records regulations: The Federal rules restrict any use of the information to criminally investigate or prosecute any alcohol or drug abuse patient.[facility] HospitalIn the event this information is protected by the Federal Confidentiality of Alcohol and Drug Abuse Patient Records regulations: The Federal rules restrict any use of the information to criminally investigate or prosecute any alcohol or drug abuse patient.[facility] HospitalIn the event this information is protected by the Federal Confidentiality of Alcohol and Drug Abuse Patient Records regulations: The Federal rules restrict any use of the information to criminally investigate or prosecute any alcohol or drug abuse patient.[facility] HospitalIn the event this information is protected by the Federal Confidentiality of Alcohol and Drug Abuse Patient Records regulations: The Federal rules restrict any use of the information to criminally investigate or prosecute any alcohol or drug abuse patient.[facility] HospitalIn the event this information is protected by the Federal Confidentiality of Alcohol and Drug Abuse Patient Records regulations: The Federal rules restrict any use of the information to criminally investigate or prosecute any alcohol or drug abuse patient.[facility] HospitalIn the event this information is protected by the Federal Confidentiality of Alcohol and Drug Abuse Patient Records regulations: The Federal rules restrict any use of the information to criminally investigate or prosecute any alcohol or drug abuse patient.[facility] HospitalIn the event this information is protected by the Federal Confidentiality of Alcohol and Drug Abuse Patient Records regulations: The Federal rules restrict any use of the information to criminally investigate or prosecute any alcohol or drug abuse patient.[facility] HospitalIn the event this information is protected by the Federal Confidentiality of Alcohol and Drug Abuse Patient Records regulations: The Federal rules restrict any use of the information to criminally investigate or prosecute any alcohol or drug abuse patient.[facility] HospitalIn the event this information is protected by the Federal Confidentiality of Alcohol and Drug Abuse Patient Records regulations: The Federal rules restrict any use of the information to criminally investigate or prosecute any alcohol or drug abuse patient.[facility] HospitalIn the event this information is protected by the Federal Confidentiality of Alcohol and Drug Abuse Patient Records regulations: The Federal rules restrict any use of the information to criminally investigate or prosecute any alcohol or drug abuse patient.[facility] HospitalIn the event this information is protected by the Federal Confidentiality of Alcohol and Drug Abuse Patient Records regulations: The Federal rules restrict any use of the information to criminally investigate or prosecute any alcohol or drug abuse patient.[facility] HospitalIn the event this information is protected by the Federal Confidentiality of Alcohol and Drug Abuse Patient Records regulations: The Federal rules restrict any use of the information to criminally investigate or prosecute any alcohol or drug abuse patient.[facility] HospitalIn the event this information is protected by the Federal Confidentiality of Alcohol and Drug Abuse Patient Records regulations: The Federal rules restrict any use of the information to criminally investigate or prosecute any alcohol or drug abuse patient.[facility] HospitalIn the event this information is protected by the Federal Confidentiality of Alcohol and Drug Abuse Patient Records regulations: The Federal rules restrict any use of the information to criminally investigate or prosecute any alcohol or drug abuse patient.[facility] HospitalIn the event this information is protected by the Federal Confidentiality of Alcohol and Drug Abuse Patient Records regulations: The Federal rules restrict any use of the information to criminally investigate or prosecute any alcohol or drug abuse patient.[facility] HospitalIn the event this information is protected by the Federal Confidentiality of Alcohol and Drug Abuse Patient Records regulations: The Federal rules restrict any use of the information to criminally investigate or prosecute any alcohol or drug abuse patient.[facility] HospitalIn the event this information is protected by the Federal Confidentiality of Alcohol and Drug Abuse Patient Records regulations: The Federal rules restrict any use of the information to criminally investigate or prosecute any alcohol or drug abuse patient.[facility] HospitalIn the event this information is protected by the Federal Confidentiality of Alcohol and Drug Abuse Patient Records regulations: The Federal rules restrict any use of the information to criminally investigate or prosecute any alcohol or drug abuse patient.[facility] HospitalIn the event this information is protected by the Federal Confidentiality of Alcohol and Drug Abuse Patient Records regulations: The Federal rules restrict any use of the information to criminally investigate or prosecute any alcohol or drug abuse patient.[facility] HospitalIn the event this information is protected by the Federal Confidentiality of Alcohol and Drug Abuse Patient Records regulations: The Federal rules restrict any use of the information to criminally investigate or prosecute any alcohol or drug abuse patient.[facility] HospitalIn the event this information is protected by the Federal Confidentiality of Alcohol and Drug Abuse Patient Records regulations: The Federal rules restrict any use of the information to criminally investigate or prosecute any alcohol or drug abuse patient.[facility] HospitalIn the event this information is protected by the Federal Confidentiality of Alcohol and Drug Abuse Patient Records regulations: The Federal rules restrict any use of the information to criminally investigate or prosecute any alcohol or drug abuse patient.[facility] HospitalIn the event this information is protected by the Federal Confidentiality of Alcohol and Drug Abuse Patient Records regulations: The Federal rules restrict any use of the information to criminally investigate or prosecute any alcohol or drug abuse patient.[facility] HospitalIn the event this information is protected by the Federal Confidentiality of Alcohol and Drug Abuse Patient Records regulations: The Federal rules restrict any use of the information to criminally investigate or prosecute any alcohol or drug abuse patient.[facility] HospitalIn the event this information is protected by the Federal Confidentiality of Alcohol and Drug Abuse Patient Records regulations: The Federal rules restrict any use of the information to criminally investigate or prosecute any alcohol or drug abuse patient.[facility] HospitalIn the event this information is protected by the Federal Confidentiality of Alcohol and Drug Abuse Patient Records regulations: The Federal rules restrict any use of the information to criminally investigate or prosecute any alcohol or drug abuse patient.[facility] HospitalIn the event this information is protected by the Federal Confidentiality of Alcohol and Drug Abuse Patient Records regulations: The Federal rules restrict any use of the information to criminally investigate or prosecute any alcohol or drug abuse patient.[facility] HospitalIn the event this information is protected by the Federal Confidentiality of Alcohol and Drug Abuse Patient Records regulations: The Federal rules restrict any use of the information to criminally investigate or prosecute any alcohol or drug abuse patient.[facility] HospitalIn the event this information is protected by the Federal Confidentiality of Alcohol and Drug Abuse Patient Records regulations: The Federal rules restrict any use of the information to criminally investigate or prosecute any alcohol or drug abuse patient.[facility] HospitalIn the event this information is protected by the Federal Confidentiality of Alcohol and Drug Abuse Patient Records regulations: The Federal rules restrict any use of the information to criminally investigate or prosecute any alcohol or drug abuse patient.[facility] HospitalIn the event this information is protected by the Federal Confidentiality of Alcohol and Drug Abuse Patient Records regulations: The Federal rules restrict any use of the information to criminally investigate or prosecute any alcohol or drug abuse patient.[facility] HospitalIn the event this information is protected by the Federal Confidentiality of Alcohol and Drug Abuse Patient Records regulations: The Federal rules restrict any use of the information to criminally investigate or prosecute any alcohol or drug abuse patient.[facility] HospitalIn the event this information is protected by the Federal Confidentiality of Alcohol and Drug Abuse Patient Records regulations: The Federal rules restrict any use of the information to criminally investigate or prosecute any alcohol or drug abuse patient.[facility] HospitalIn the event this information is protected by the Federal Confidentiality of Alcohol and Drug Abuse Patient Records regulations: The Federal rules restrict any use of the information to criminally investigate or prosecute any alcohol or drug abuse patient.[facility] HospitalIn the event this information is protected by the Federal Confidentiality of Alcohol and Drug Abuse Patient Records regulations: The Federal rules restrict any use of the information to criminally investigate or prosecute any alcohol or drug abuse patient.[facility] HospitalIn the event this information is protected by the Federal Confidentiality of Alcohol and Drug Abuse Patient Records regulations: The Federal rules restrict any use of the information to criminally investigate or prosecute any alcohol or drug abuse patient.[facility] HospitalIn the event this information is protected by the Federal Confidentiality of Alcohol and Drug Abuse Patient Records regulations: The Federal rules restrict any use of the information to criminally investigate or prosecute any alcohol or drug abuse patient.[facility] HospitalIn the event this information is protected by the Federal Confidentiality of Alcohol and Drug Abuse Patient Records regulations: The Federal rules restrict any use of the information to criminally investigate or prosecute any alcohol or drug abuse patient.[facility] HospitalIn the event this information is protected by the Federal Confidentiality of Alcohol and Drug Abuse Patient Records regulations: The Federal rules restrict any use of the information to criminally investigate or prosecute any alcohol or drug abuse patient.[facility] HospitalIn the event this information is protected by the Federal Confidentiality of Alcohol and Drug Abuse Patient Records regulations: The Federal rules restrict any use of the information to criminally investigate or prosecute any alcohol or drug abuse patient.[facility] HospitalIn the event this information is protected by the Federal Confidentiality of Alcohol and Drug Abuse Patient Records regulations: The Federal rules restrict any use of the information to criminally investigate or prosecute any alcohol or drug abuse patient.[facility] HospitalIn the event this information is protected by the Federal Confidentiality of Alcohol and Drug Abuse Patient Records regulations: The Federal rules restrict any use of the information to criminally investigate or prosecute any alcohol or drug abuse patient.[facility] HospitalIn the event this information is protected by the Federal Confidentiality of Alcohol and Drug Abuse Patient Records regulations: The Federal rules restrict any use of the information to criminally investigate or prosecute any alcohol or drug abuse patient.[facility] HospitalIn the event this information is protected by the Federal Confidentiality of Alcohol and Drug Abuse Patient Records regulations: The Federal rules restrict any use of the information to criminally investigate or prosecute any alcohol or drug abuse patient.[facility] HospitalIn the event this information is protected by the Federal Confidentiality of Alcohol and Drug Abuse Patient Records regulations: The Federal rules restrict any use of the information to criminally investigate or prosecute any alcohol or drug abuse patient.[facility] HospitalIn the event this information is protected by the Federal Confidentiality of Alcohol and Drug Abuse Patient Records regulations: The Federal rules restrict any use of the information to criminally investigate or prosecute any alcohol or drug abuse patient.[facility] HospitalIn the event this information is protected by the Federal Confidentiality of Alcohol and Drug Abuse Patient Records regulations: The Federal rules restrict any use of the information to criminally investigate or prosecute any alcohol or drug abuse patient.[facility] HospitalIn the event this information is protected by the Federal Confidentiality of Alcohol and Drug Abuse Patient Records regulations: The Federal rules restrict any use of the information to criminally investigate or prosecute any alcohol or drug abuse patient.[facility] HospitalIn the event this information is protected by the Federal Confidentiality of Alcohol and Drug Abuse Patient Records regulations: The Federal rules restrict any use of the information to criminally investigate or prosecute any alcohol or drug abuse patient.[facility] HospitalIn the event this information is protected by the Federal Confidentiality of Alcohol and Drug Abuse Patient Records regulations: The Federal rules restrict any use of the information to criminally investigate or prosecute any alcohol or drug abuse patient.[facility] HospitalIn the event this information is protected by the Federal Confidentiality of Alcohol and Drug Abuse Patient Records regulations: The Federal rules restrict any use of the information to criminally investigate or prosecute any alcohol or drug abuse patient.[facility] HospitalIn the event this information is protected by the Federal Confidentiality of Alcohol and Drug Abuse Patient Records regulations: The Federal rules restrict any use of the information to criminally investigate or prosecute any alcohol or drug abuse patient.[facility] HospitalIn the event this information is protected by the Federal Confidentiality of Alcohol and Drug Abuse Patient Records regulations: The Federal rules restrict any use of the information to criminally investigate or prosecute any alcohol or drug abuse patient.[facility] HospitalIn the event this information is protected by the Federal Confidentiality of Alcohol and Drug Abuse Patient Records regulations: The Federal rules restrict any use of the information to criminally investigate or prosecute any alcohol or drug abuse patient.[facility] HospitalIn the event this information is protected by the Federal Confidentiality of Alcohol and Drug Abuse Patient Records regulations: The Federal rules restrict any use of the information to criminally investigate or prosecute any alcohol or drug abuse patient.[facility] HospitalIn the event this information is protected by the Federal Confidentiality of Alcohol and Drug Abuse Patient Records regulations: The Federal rules restrict any use of the information to criminally investigate or prosecute any alcohol or drug abuse patient.[facility] HospitalIn the event this information is protected by the Federal Confidentiality of Alcohol and Drug Abuse Patient Records regulations: The Federal rules restrict any use of the information to criminally investigate or prosecute any alcohol or drug abuse patient.[facility] HospitalIn the event this information is protected by the Federal Confidentiality of Alcohol and Drug Abuse Patient Records regulations: The Federal rules restrict any use of the information to criminally investigate or prosecute any alcohol or drug abuse patient.[facility] HospitalIn the event this information is protected by the Federal Confidentiality of Alcohol and Drug Abuse Patient Records regulations: The Federal rules restrict any use of the information to criminally investigate or prosecute any alcohol or drug abuse patient.[facility] HospitalIn the event this information is protected by the Federal Confidentiality of Alcohol and Drug Abuse Patient Records regulations: The Federal rules restrict any use of the information to criminally investigate or prosecute any alcohol or drug abuse patient.[facility] HospitalIn the event this information is protected by the Federal Confidentiality of Alcohol and Drug Abuse Patient Records regulations: The Federal rules restrict any use of the information to criminally investigate or prosecute any alcohol or drug abuse patient.[facility] HospitalIn the event this information is protected by the Federal Confidentiality of Alcohol and Drug Abuse Patient Records regulations: The Federal rules restrict any use of the information to criminally investigate or prosecute any alcohol or drug abuse patient.[facility] Reason for Visit (unrecogniz ed section and content) Reason Comments Radiology CT Specialty Diagnoses / Procedures Referred By Contac t Referred To Contact CT IMAGING Diagnoses Tobacco use Procedures CT LUNG SCREEN WO IVCON COMPUTED TOMOGRAPHY THORAX LW DOSE LNG CA SCR C- Nanci Ingram, 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 MAINTENANCE WORKER.SIGNAL SUPERVISOR [address] [place] [address] [place] [address] Referral ID Status Reason Start Date Expiration Date V isits Requested Visits Authorized [id number] Closed Auto-Generate d Referral 04/10/2021 08/09/2021 1 1 Specialty Diagnoses / Procedures Referred By Contac t Referred To Contact Radiology / RADIO CT SC[facility] Diagnoses Tobacco use lcs Procedures COMPUTED TOMOGRAPHY THORAX LW DOSE LNG CA SCR C- [place] [address] [place] [id number] Scan [facility] [address] [place] [id number] Referral ID Status Reason Start Date Expiration Date V isits Requested Visits Authorized [id number] Closed Patient Cleared - Admin/Chairm an/Director advise to proceed or did not respond 09/04/2022 11/03/2022 1 1 Reason Comments Post Op Specialty Diagnoses / Procedures Referred By Contac t Referred To Contact Vascular Surgery Diagnoses PAD (peripheral artery disease) (HCC) Bypass graft stenosis, subsequent encounter Procedures CONSULT TO VASCULAR SURGERY OFFICE/OUTPATIENT [facility] 60 MINUTES Linda Parish MD [address] [place] [address] Referral ID Status Reason Start Date Expiration Date V isits Requested Visits Authorized [id number] Closed PCP Requested Referral 10/05/2023 10/04/2024 1 1 Reason Comments Results Specialty Diagnoses / Procedures Referred By Contact Referred To Contact Gastroenterology / GASTROENTEROLOGY Diagnoses CAPSULE READ REPORT Procedures CAPSULE READ REPORT Jaymie West, APARTMENT MAINTENANCE WORKER.SIGNAL SUPERVISOR [address] [place] [address] Heather Mtz MD [address] [place] [address] Referral ID Status Reason Start Date Expiration Date V isits Requested Visits Authorized [id number] Closed OON/Self Pay Override Financial Clearance Required - Self Pay Financial Clearance Not Required 09/02/2023 12/10/2024 1 1 Reason Comments Phlebotomy Reason Comments PT Eval PT Discharge Specialty Diagnoses / Procedures Referred By Contac t Referred To Contact [facility] Diagnoses Benign paroxysmal positional vertigo, unspecified laterality Procedures CONSULT TO PHYSICAL THERAPY PHYSICAL THERAPY EVALUATION HIGH COMPLEX 45 MINS Linda Parish MD [address] [place] [address] [facility] [address] [address] Referral ID Status Reason Start Date Expiration Date V isits Requested Visits Authorized [id number] Closed Auto-Generate d Referral 09/24/2021 01/30/2022 1 1 Reason Comments Follow Up dizziness/migraines- saw neuro see note Reason Comments Follow Up 4 week Reason Comments Abdominal Pain ER F/U Diverticulitis Reason Comments Abdominal Pain Reason Onset Date Comments Follow Up Immunizations 02/05/2022 Flu vaccination Reason Comments Established Patient Musculoskeletal Problem Reason Comments Recheck Diverticulitis follo w up- stomach is still bothering him; no diarrhea/blood in stool Reason Comments CARD Follow Up Annual SVT Reason Comments Pre-Op Visit Reason Onset Date Comments Refill Request 06/29/2022 Reason Comments OT EVAL Specialty Diagnoses / Procedures Referred By Contac t Referred To Contact [facility] Diagnoses Dupuytren's disease of palm Procedures CONSULT TO PSYCHIATRIC ORDERLY OCCUPATIONAL THERAPY EVAL HIGH COMPLEX 60 MINS Rebecca Santana PA-C [address] [place] [address] [facility] [address] [address] Referral ID Status Reason Start Date Expiration Date Visits Requested Visits Authorized [id number] Pending Review Auto-Generat ed Referral 05/07/2022 05/07/2023 1 1 Reason Onset Date Comments Refill Request 07/03/2022 Reason Comments Occupational Therapy Specialty Diagnoses / Procedures Referred By Contac t Referred To Contact [facility] Diagnoses Dupuytren's disease of palm Dupuytren's disease of palm of right hand Pain of right hand Procedures OT REH[facility] FO[facility] UP ORDER THERAPEUT ACTVITY DIRECT PT CONTACT EACH 15 MIN Rebecca Santana PA-C [address] [place] [address] [facility] [place] [address] [place] [address] Referral ID Status Reason Start Date Expiration Date Visits Requested Visits Authorized [id number] Authorized PCP Requested Referral Auto-Generate d Referral 07/01/2022 10/01/2022 10 10 Reason Onset Date Comments Refill Request 07/10/2022 Reason Onset Date Comments Refill Request 07/18/2022 Reason Onset Date Comments Refill Request 07/27/2022 Reason Comments Patient Update Reason Comments Follow Up Surgery, perforation of colon, colostomy Specialty Diagnoses / Procedures Referred By Maribel connell Referred To Contact General Surgery Diagnoses Perforation of colon (HCC) Colostomy in place (HCC) Diverticulitis Procedures CONSULT TO GENERAL SURGERY OFFICE/OUTPATIENT NEW [facility] MDM 60-74 MINUTES Linda Parish MD [address] [place] [address] Referral ID Status Reason Start Date Expiration Date V isits Requested Visits Authorized [id number] Closed PCP Requested Referral 08/10/2022 08/10/2023 1 1 Reason Comments Forms Reason Comments Ostomy supply order Reason Comments Follow Up Reason Comments Post Op Established Patient Reason Comments Recheck Reason Comments Results LDCT Reason Comments Follow Up 3 week follow-up div erticulitis. Reason Comments Follow Up 1 month follow up pe ristomal irritation Reason Comments Lab Orders Reason Comments Erroneous encounter-disregard Reason Comments Appointment New pt Reason Comments Hospital F/U Reason Comments New Patient Reason Comments Appointment Reason Comments Refill Request Reason Comments Established Patient Reason Comments Follow Up CT scan of abdomen p clinton Reason Comments PT Eval Specialty Diagnoses / Procedures Referred By Maribel t Referred To Contact [facility] Diagnoses Peripheral arterial disease (HCC) Procedures CONSULT TO PHYSICAL THERAPY PHYSICAL THERAPY EVALUATION HIGH COMPLEX 45 MINS Rosi Alonso DO [address] [place] [address] [facility] [place] [address] [place] [address] Referral ID Status Reason Start Date Expiration Date V isits Requested Visits Authorized [id number] Closed Auto-Generate d Referral 02/16/2023 05/02/2023 1 1 Specialty Diagnoses / Procedures Referred By Contac t Referred To Contact CT IMAGING Diagnoses Left lower quadrant abdominal pain Procedures CT ABD/PEL W IVCON CT ABD & PELVIS W/CONTRAST Bruno Parra MD [address] [place] [address] [place] [address] Referral ID Status Reason Start Date Expiration Date V isits Requested Visits Authorized [id number] Closed Auto-Generate d Referral 10/28/2022 12/27/2022 2 2 Reason Comments Established Patient Reason Comments Physical Therapy Specialty Diagnoses / Procedures Referred By Contac t Referred To Contact PHYSICAL THERAPY Diagnoses follow up vistis I73.9 (ICD-10-CM) - Peripheral arterial disease (HCC) Procedures follow up vistis I73.9 (ICD-10-CM) - Peripheral arterial disease (HCC) Rosi Alonso, DO [address] [place] [address] Pt [facility] [address] [facility] [address] Referral ID Status Reason Start Date Expiration Date V isits Requested Visits Authorized [id number] Authorized 02/26/2023 05/02/2023 24 24 Reason Comments Hospital Follow Up [facility] GI Bleed 06/07/23- 06/10/23 Reason Comments AVS 05/28/23 Reason Comments Breathing Problem Fatigue Reason Comments Shortness of Breath Weakness Reason Comments Results Needs to go to ER Reason Onset Date Comments 08/17/2023 Reason Onset Date Comments Refill Request 08/26/2023 Reason Onset Date Comments Transition Of Care 08/26/2023 TCM Pharmacy- Hospital discharge 08/25/23 Reason Comments Follow Up Phone Call In-Basket Call Back - All Clear, patient calling his Doctor now Reason Comments Future Appointment Reason Comments Results Need to go to ER For low hgb Reason Comments Benefits Investigation Reason Comments Preparations For Procedures Reason Comments Land Use Planner - Other Hospital Discha rge Reason Comments Social Work Services Reason Comments Non-Chemotherapy Treatment Specialty Diagnoses / Procedures Referred By Contac t Referred To Contact Diagnoses Polycythemia, secondary Hyperviscosity Other iron deficiency anemia Procedures IRON SUCROSE INJECTION [place] [address] [place] [address] [place] [address] [facility] [address] [place] [address] Referral ID Status Reason Start Date Expiration Date V isits Requested Visits Authorized [id number] Authorized 09/09/2023 09/07/2024 4 4 Reason Comments Follow Up Reason Comments Follow Up Nodule Reason Comments Results LDCT Reason Comments CARD New Patient Consult Consult to [facility] - 08/17/23 - Malaise, DOEC/O racing heart, dizziness, chronic right foot and ankle edema12/2022 - BYPASS ARTERY POPLITEAL TIBIAL Revision - 05/14/23Mild heart disease on previous cath in 2020 Reason Comments Hospital Follow Up Specialty Diagnoses / Procedures Referred By Contac t Referred To Contact Gastroenterology Diagnoses Gastrointestinal hemorrhage, unspecified gastrointestinal hemorrhage type Procedures CONSULT TO GASTROENTEROLOGY OFFICE/OUTPATIENT [facility] 60 MINUTES Linda Parish MD [address] [place] [address] Referral ID Status Reason Start Date Expiration Date V isits Requested Visits Authorized [id number] Closed PCP Requested Referral 10/05/2023 10/04/2024 1 1 Reason Comments Appointment Needs Rescheduled Specialty Diagnoses / Procedures Referred By Contac t Referred To Contact CT IMAGING Diagnoses Encounter for screening for malignant neoplasm of lung in current smoker with 30 pack year history or greater Lung nodules Smoker Procedures CT LUNG SCREEN WO IVCON COMPUTED TOMOGRAPHY THORAX LW DOSE LNG CA SCR Mehnaz- Briana Bob, APARTMENT MAINTENANCE WORKER.SIGNAL SUPERVISOR [address] [place] [address] [address] [facility] [place] [address] Referral ID Status Reason Start Date Expiration Date V isits Requested Visits Authorized [id number] Closed Auto-Generate d Referral 03/09/2023 04/07/2024 1 1 Reason Comments Schedule Surgery Reason Comments New Patient Discuss surgery for reversal Reason Comments Follow Up Room 9F/uSOB w/ acti vity Reason Comments Procedure RLE angio Reason Comments Medication Request Reason Comments Orders Reason Comments Consult Reason Comments Established Patient Nodule Specialty Diagnoses / Procedures Referred By Maribel t Referred To Contact CT IMAGING Diagnoses Lung nodules Procedures CT LUNG FOLLOWUP WO IVCON DIAGNOSTIC COMPUTED TOMOGRAPHY THORAX W/O CNTRST Leslie Ibrahim, APARTMENT MAINTENANCE WORKER.SIGNAL SUPERVISOR [address] [place] [id number] [facility] [place] [address] Referral ID Status Reason Start Date Expiration Date V isits Requested Visits Authorized [id number] Closed Auto-Generate d Referral 01/13/2024 11/11/2024 1 1 Reason Comments requesting note does not want to do jury duty Reason Comments Fall Back Pain Reason Onset Date Comments Allied Health Visit 09/27/2024 Medication A dherence Outreach Reason Comments Procedure RLE bypass revision Care Teams (unrecognized sec tion and content) Podiatry Doctor Relationship Specialty Start Date End Date Linda Parish MD [facility] [place] [address] PCP - General Family Practice 02/21/14 Podiatry Doctor Relationship Specialty Start Date End Date Linda Parish MD [address] [place] [address] PCP - General Family Practice 02/21/14 Podiatry Doctor Relationship Specialty Start Date End Date Linda Parish MD [address] [place] [address] PCP - General Family Practice 02/21/14 Podiatry Doctor Relationship Specialty Start Date End Date Linda Parish MD [address] [place] [address] PCP - General Family Practice 02/21/14 Podiatry Doctor Relationship Specialty Start Date End Date Linda Parish MD [address] [place] [address] [id number] PCP - General Family Medicine 02/21/14 Podiatry Doctor Relationship Specialty Start Date End Date Linda Parish MD [address] [facility] [address] PCP - General Family Medicine 02/21/14 Podiatry Doctor Relationship Specialty Start Date End Date Linda Parish MD [address] [facility] [address] PCP - General Family Medicine 02/21/14 Podiatry Doctor Relationship Specialty Start Date End Date Linda Parish MD [address] [facility] [address] PCP - General Family Medicine 02/21/14 Podiatry Doctor Relationship Specialty Start Date End Date Linda Parish MD [address] [facility] [address] PCP - General Family Medicine 02/21/14 Podiatry Doctor Relationship Specialty Start Date End Date Linda Parish MD [address] [facility] [address] PCP - General Family Medicine 02/21/14 Podiatry Doctor Relationship Specialty Start Date End Date Linda Parish MD [address] [facility] [address] PCP - General Family Medicine 02/21/14 Podiatry Doctor Relationship Specialty Start Date End Date Linda Parish MD [address] [facility] [address] PCP - General Family Medicine 02/21/14 Podiatry Doctor Relationship Specialty Start Date End Date Linda Parish MD [address] [facility] [address] PCP - General Family Medicine 02/21/14 Podiatry Doctor Relationship Specialty Start Date End Date Linda Parish MD [address] [facility] [address] PCP - General Family Medicine 02/21/14 Podiatry Doctor Relationship Specialty Start Date End Date Linda Parish MD [address] [facility] [place] [address] PCP - General Family Medicine 02/21/14 Podiatry Doctor Relationship Specialty Start Date End Date Linda Parish MD [address] [facility] [place] [address] PCP - General Family Medicine 02/21/14 Podiatry Doctor Relationship Specialty Start Date End Date Linda Parish MD [address] [facility] [place] [address] PCP - General Family Medicine 02/21/14 Radha Ruiz MD [address] [facility] [place] [address] Hematology/Oncology 07/22/22 Podiatry Doctor Relationship Specialty Start Date End Date Linda Parish MD [address] [facility] [place] [address] PCP - General Family Medicine 02/21/14 Radha Ruiz MD [address] [place] [address] Hematology/Oncology 07/22/22 Podiatry Doctor Relationship Specialty Start Date End Date Linda Parish MD [address] [facility] [place] [address] PCP - General Family Medicine 02/21/14 Radha Ruiz MD [address] [place] [address] Hematology/Oncology 07/22/22 Podiatry Doctor Relationship Specialty Start Date End Date Linda Parish MD [address] [facility] [place] [address] PCP - General Family Medicine 02/21/14 Radha Ruiz MD [address] [place] [address] Hematology/Oncology 07/22/22 Podiatry Doctor Relationship Specialty Start Date End Date Linda Parish MD [address] [place] [address] PCP - General Family Medicine 02/21/14 Radha Ruiz MD [address] [place] [address] Hematology/Oncology 07/22/22 Podiatry Doctor Relationship Specialty Start Date End Date Linda Parish MD [address] [facility] [place] [address] PCP - General Family Medicine 02/21/14 Radha Ruiz MD [address] [place] [address] Hematology/Oncology 07/22/22 Podiatry Doctor Relationship Specialty Start Date End Date Linda Parish MD [address] [facility] [place] [address] PCP - General Family Medicine 02/21/14 Radha Ruiz MD [address] [place] [address] Hematology/Oncology 07/22/22 Podiatry Doctor Relationship Specialty Start Date End Date Linda Parish MD [address] [facility] [place] [address] PCP - General Family Medicine 02/21/14 Radha Ruiz MD [address] [address] Hematology/Oncology 07/22/22 Podiatry Doctor Relationship Specialty Start Date End Date Linda Parish MD [address] [facility] [place] [address] PCP - General Family Medicine 02/21/14 Radha Ruiz MD [address] [place] [address] Hematology/Oncology 07/22/22 Podiatry Doctor Relationship Specialty Start Date End Date Linda Parish MD [address] [facility] [place] [address] PCP - General Family Medicine 02/21/14 Radha Ruiz MD [address] [facility] [place] [address] Hematology/Oncology 07/22/22 Podiatry Doctor Relationship Specialty Start Date End Date Linda Parish MD [address] [facility] [place] [address] PCP - General Family Medicine 02/21/14 Radha Ruiz MD [address] [place] [address] Hematology/Oncology 07/22/22 Podiatry Doctor Relationship Specialty Start Date End Date Linda Parish MD [address] [facility] [place] [address] PCP - General Family Medicine 02/21/14 Radha Ruiz MD [address] [facility] [place] [address] Hematology/Oncology 07/22/22 Podiatry Doctor Relationship Specialty Start Date End Date Linda Parish MD [address] [facility] [place] [address] PCP - General Family Medicine 02/21/14 Radha Ruiz MD [address] [facility] [place] [address] Hematology/Oncology 07/22/22 Podiatry Doctor Relationship Specialty Start Date End Date Linda Parish MD [address] [facility] [place] [address] PCP - General Family Medicine 02/21/14 Radha Ruiz MD [address] [facility] [place], [place] [address] Hematology/Oncology 07/22/22 Team Status: Active Member Role Status Dates Dr. Linda Parish MD Family Provider Active Dr. Linda Parish MD Primary Care Provider Active Team Status: Inactive Member Role Status Dates Dr. Linda Parish MD Primary Care Provider Active JEANNIE SERVIN Attending Provider, Referring Provider Active Podiatry Doctor Relationship Specialty Start Date End Date Linda Parish MD [address] [facility] [place] [place] [address] PCP - General Family Medicine 02/21/14 Radha Ruiz MD [address] [facility] [place] [place] [address] Hematology/Oncology 07/22/22 Podiatry Doctor Relationship Specialty Start Date End Date Linda Parish MD [address] [facility] [place] [address] PCP - General Family Medicine 02/21/14 Radha Ruiz MD [address] [facility] [place] [address] Hematology/Oncology 07/22/22 Podiatry Doctor Relationship Specialty Start Date End Date Linda Parish MD [address] [facility] [place], [place] [address] PCP - General Family Medicine 02/21/14 Radha Ruiz MD [address] [facility] [place] [place] [address] Hematology/Oncology 07/22/22 Podiatry Doctor Relationship Specialty Start Date End Date Linda Parish MD [address] [place] [address] PCP - General Family Medicine 02/21/14 Radha Ruiz MD [address] [place] [address] Hematology/Oncology 07/22/22 Podiatry Doctor Relationship Specialty Start Date End Date Linda Parish MD [address] [place] [address] PCP - General Family Medicine 02/21/14 Radha Ruiz MD [address] [place] [address] Hematology/Oncology 07/22/22 Podiatry Doctor Relationship Specialty Start Date End Date Linda Parish MD [address] [place] [address] PCP - General Family Medicine 02/21/14 Radha Ruiz MD [address] [place] [address] Hematology/Oncology 07/22/22 Podiatry Doctor Relationship Specialty Start Date End Date Linda Parish MD [address] [place] [address] PCP - General Family Medicine 02/21/14 Radha Ruiz MD [address] [place] [address] Hematology/Oncology 07/22/22 Podiatry Doctor Relationship Specialty Start Date End Date Linda Parish MD [address] [facility] [place] [address] PCP - General Family Medicine 02/21/14 Radha Ruiz MD [address] [place] [address] Hematology/Oncology 07/22/22 Podiatry Doctor Relationship Specialty Start Date End Date Linda Parish MD [address] [facility] [place] [address] PCP - General Family Medicine 02/21/14 Radha Ruiz MD [address] [facility] [place] [address] Hematology/Oncology 07/22/22 Podiatry Doctor Relationship Specialty Start Date End Date Linda Parish MD [address] [facility] [place] [place] [address] PCP - General Family Medicine 02/21/14 Radha Ruiz MD [address] [facility] [place] [address] Hematology/Oncology 07/22/22 Podiatry Doctor Relationship Specialty Start Date End Date Linda Parish MD [address] [facility] [place] [address] PCP - General Family Medicine 02/21/14 Radha Ruiz MD [address] [facility] [place] [address] Hematology/Oncology 07/22/22 Podiatry Doctor Relationship Specialty Start Date End Date Linda Parish MD [address] [facility] [place] [address] PCP - General Family Medicine 02/21/14 Radha Ruiz MD [address] [place] [address] Hematology/Oncology 07/22/22 03/03/23 Team Status: Inactive Member Role Status Dates Dr. Linda Parish MD Primary Care Provider Active Berry FRIEND, PA Attending Provider, Referring Provi no Active Podiatry Doctor Relationship Specialty Start Date End Date Linda Parish MD [address] [place] [address] PCP - General Family Medicine 02/21/14 Meir Montalvo MD [address] [place] [address] Hematology/Oncology 03/04/23 Podiatry Doctor Relationship Specialty Start Date End Date Linda Parish MD [address] [place], [place] [address] PCP - General Family Medicine 02/21/14 Meir Montalvo MD [address] [place], [place] [address] Hematology/Oncology 03/04/23 Team Status: Inactive Member Role Status Dates Dr. Linda Parish MD Primary Care Provider Active Dr. Malinda Calvert MD Attending Provider Active Team Status: Active Member Role Status Dates Dr. Linda Parish MD Primary Care Provider Active Dr. Reid Ponce DO Emergency Provider Active Dr. Amber Gonzalez MD Attending Provider Active Team Status: Active Member Role Status Dates Dr. Linda Parish MD Primary Care Provider Active Dr. Reid Ponce DO Emergency Provider Active Dr. John Reyes DO Attending Provider Active Team Status: Active Member Role Status Dates Dr. Linda Parish MD Primary Care Provider Active Dr. Reid Ponce DO Emergency Provider Active Dr. Amber Gonzalez MD Admit Provider, Attending Provid er Active Team Status: Active Member Role Status Dates Dr. Linda Parish MD Primary Care Provider Active Dr. Reid Ponce DO Emergency Provider Active Dr. Amber Gonzalez MD Admit Provider, Other Provider A ctive Dr. Emile Hernandez MD Other Provider Active Dr. Ermias Ramirez MD Attending Provider, Other Provid er Active Team Status: Active Member Role Status Dates Dr. Linda Parish MD Primary Care Provider Active Dr. Reid Ponce DO Emergency Provider Active Dr. Amber Gonzalez MD Admit Provider, Other Provider A ctive Dr. Emile Hernandez MD Other Provider Active Dr. Ermias Ramirez MD Other Provider Active Dr. John Reyes DO Attending Provider Active Team Status: Active Member Role Status Dates Dr. Linda Parish MD Primary Care Provider Active Dr. John Reyes DO Attending Provider Active Team Status: Active Member Role Status Dates Dr. Linda Parish MD Primary Care Provider Active Dr. Reid Ponce DO Emergency Provider Active Dr. Amber Gonzalez MD Admit Provider, Other Provider A ctive Dr. Emile Hernandez MD Other Provider Active Dr. Ermias Ramirez MD Other Provider Active [facility] Fang Attending Provider Active Team Status: Active Member Role Status Dates Dr. Linda Parish MD Primary Care Provider Active Dr. Emile Hernandez MD Attending Provider Active Team Status: Inactive Member Role Status Dates Dr. Linda Parish MD Primary Care Provider Active Dr. Reid Ponce DO Emergency Provider Active Dr. Amber Gonzalez MD Admit Provider, Other Provider A ctive Dr. Emile Hernandez MD Other Provider Active Dr. Ermias Ramirez MD Attending Provider Active Podiatry Doctor Relationship Specialty Start Date End Date Linda Praish MD [address] [place] [address] PCP - General Family Medicine 02/21/14 Meir Montalvo MD [address] [place] [address] Hematology/Oncology 03/04/23 Podiatry Doctor Relationship Specialty Start Date End Date Linda Parish MD [address] [place] [address] PCP - General Family Medicine 02/21/14 Meir Montalvo MD [address] [place] [address] Hematology/Oncology 03/04/23 Podiatry Doctor Relationship Specialty Start Date End Date Linda Parish MD [address] [place] [address] PCP - General Family Medicine 02/21/14 Meir Montalvo MD [address] [place] [address] Hematology/Oncology 03/04/23 Podiatry Doctor Relationship Specialty Start Date End Date Linda Parish MD [address] [place] [address] PCP - General Family Medicine 02/21/14 Meir Montalvo MD [address] [place] [address] Hematology/Oncology 03/04/23 Team Status: Active Member Role Status Dates Dr. Linda Parish MD Primary Care Provider Active Dr. Reid Ponce , Emergency Provider Active Dr. John Reyes , DO Attending Provider Active Dr. Ermias Ramirez MD Referring Provider Active Team Status: Active Member Role Status Dates Dr. Linda Parish MD Primary Care Provider Active Dr. Reid Ponce DO Emergency Provider Active Dr. Amber Gonzalez MD Admit Provider, Other Provider A ctive Dr. Emile Hernandez MD Other Provider Active Dr. Ermias Ramirez MD Referring Provider, Other Provid er Active Dr. John Reyes , DO Attending Provider Active Team Status: Active Member Role Status Dates Dr. Linda Parish MD Primary Care Provider Active Dr. John Reyes , DO Attending Provider Active Dr. Ermias Ramirez MD Referring Provider Active Team Status: Active Member Role Status Dates Dr. Linda Praish MD Primary Care Provider Active Dr. Reid Ponce DO Emergency Provider Active Dr. Amber Gonzalez MD Admit Provider, Other Provider A ctive Dr. Emile Hernandez MD Other Provider Active Dr. Ermias Ramirez MD Referring Provider, Other Provid er Active [facility] Fang Attending Provider Active Team Status: Active Member Role Status Dates Dr. Linda Parish MD Primary Care Provider Active Dr. Emile Hernandez MD Attending Provider Active [facility] Fang Referring Provider Active Team Status: Active Member Role Status Dates Dr. Linda Parish MD Primary Care Provider Active Dr. Fish Mantilla MD Attending Provider, Referring Provider Active Team Status: Active Member Role Status Dates Dr. Linda Parish MD Primary Care Provider Active Dr. Murray Sanchez MD Emergency Provider Active Dr. Devon Cutler MD Admit Provider, Attending Prov ider Active Podiatry Doctor Relationship Specialty Start Date End Date Linda Parish MD [address] [place] [address] PCP - General Family Medicine 02/21/14 Meir Montalvo MD [address] [place] [address] Hematology/Oncology 03/04/23 Podiatry Doctor Relationship Specialty Start Date End Date Linda Parish MD [address] [place] [address] PCP - General Family Medicine 02/21/14 Meir Montalvo MD [address] [place] [address] Hematology/Oncology 03/04/23 Podiatry Doctor Relationship Specialty Start Date End Date Linda Parish MD [address] [place] [address] PCP - General Family Medicine 02/21/14 Meir Montalvo MD [address] [place] [address] Hematology/Oncology 03/04/23 Team Status: Active Member Role Status Dates Dr. Linda Parish MD Primary Care Provider Active Dr. Murray Sanchez MD Emergency Provider Active Dr. Devon Cutler MD Admit Provider, Attending Provider, Other Provider Active Team Status: Active Member Role Status Dates Dr. Linda Parish MD Primary Care Provider Active Dr. Murray Sanchez MD Emergency Provider Active Dr. Devon Cutler MD Admit Provider, Other Provider Active Dr. Milton Bergeron DO Attending Provider, Other Pro vider Active Team Status: Active Member Role Status Dates Dr. Linda Parish MD Primary Care Provider Active Dr. Murray Sanchez MD Emergency Provider Active Dr. Devon Cutler MD Admit Provider, Other Provider Active Dr. Pascale Soto MD Attending Provider, Other Prov ider Active Dr. Milton Bergeron DO Other Provider Active Team Status: Active Member Role Status Dates Dr. Linda Parish MD Primary Care Provider Active Dr. Murray Sanchez MD Emergency Provider Active Dr. Devon Cutler MD Admit Provider, Other Provider Active Dr. Pascale Soto MD Other Provider Active Dr. Milton Bergeron DO Other Provider Active Dr. John Reyes , Attending Provider Active Team Status: Active Member Role Status Dates Dr. Linda Parish MD Primary Care Provider Active Dr. Adalberto Mari MD Attending Provider Active Dr. Devon Cutler MD Referring Provider Active Team Status: Inactive Member Role Status Dates Dr. Linda Parish MD Primary Care Provider Active Dr. Murray Sanchez MD Emergency Provider Active Dr. Devon Cutler MD Admit Provider, Other Provider Active Dr. Pascale Soto MD Attending Provider Active Dr. Milton Bergeron DO Other Provider Active Podiatry Doctor Relationship Specialty Start Date End Date Linda Parish MD [address] [facility] [place] [address] PCP - General Family Medicine 02/21/14 Meir Montalvo MD [address] [place] [address] Hematology/Oncology 03/04/23 Podiatry Doctor Relationship Specialty Start Date End Date Linda Parish MD [address] [place] [address] PCP - General Family Medicine 02/21/14 Meir Montalvo MD [address] [place] [address] Hematology/Oncology 03/04/23 Podiatry Doctor Relationship Specialty Start Date End Date Linda Parish MD [address] [place] [address] PCP - General Family Medicine 02/21/14 Meir Montalvo MD [address] [place] [address] Hematology/Oncology 03/04/23 Podiatry Doctor Relationship Specialty Start Date End Date Linda Parish MD [address] [place] [address] PCP - General Family Medicine 02/21/14 Meir Montalvo MD [address] [place] [address] Hematology/Oncology 03/04/23 Podiatry Doctor Relationship Specialty Start Date End Date Linda Parish MD [address] [place] [address] PCP - General Family Medicine 02/21/14 Meir Montalvo MD [address] [place] [address] Hematology/Oncology 03/04/23 Team Status: Active Member Role Status Dates Dr. Linda Parish MD Primary Care Provider Active Dr. Emile Hernandez MD Attending Provider Active Dr. Milton Bergeron DO Referring Provider Active Team Status: Active Member Role Status Dates Dr. Linda Parish MD Primary Care Provider Active Dr. John Reyes DO Attending Provider Active Dr. Pascale Soto MD Referring Provider Active Team Status: Inactive Member Role Status Dates Dr. Linda Parish MD Primary Care Provider, Referring Provider Active Dr. John Reyes DO Attending Provider Active Team Status: Active Member Role Status Dates Dr. Linda Parish MD Primary Care Provider Active Dr. Murray Sanchez MD Emergency Provider Active Dr. Devon Cutler MD Admit Provider, Other Provider Active Dr. Pascale Soto MD Referring Provider, Other Prov ider Active Dr. Milton Bergeron DO Other Provider Active Dr. John Reyes DO Attending Provider Active Team Status: Active Member Role Status Dates Dr. Linda Parish MD Primary Care Provider Active Dr. Reid Ponce DO Emergency Provider Active Dr. Staci Harris MD Attending Provider Active Team Status: Active Member Role Status Dates Dr. Linda Parish MD Primary Care Provider Active Dr. Reid Ponce DO Emergency Provider Active Dr. Staci Harris MD Admit Provider, Attending Prov ider Active Dr. Emile Hernandez MD Other Provider Active Team Status: Active Member Role Status Dates Dr. Linda Parish MD Primary Care Provider Active Dr. Reid Ponce DO Emergency Provider Active Dr. Staci Harris MD Admit Provider, Other Provider Active Dr. Emile Hernandez MD Other Provider Active Dr. Emile Dumont DO Attending Provider, Other Provid er Active Team Status: Active Member Role Status Dates Dr. Linda Parish MD Primary Care Provider Active Dr. Reid Ponce DO Emergency Provider Active Dr. Staci Harris MD Admit Provider Active Dr. Emile Hernandez MD Other Provider Active Dr. Milton Bergeron DO Attending Provider, Other Pro vider Active Dr. Emile Jopperi , DO Other Provider Active Team Status: Inactive Member Role Status Dates Dr. Linda Parish MD Primary Care Provider Active Dr. Reid Ponce , DO Emergency Provider Active Dr. Staci Harris MD Admit Provider Active Dr. Emile Hernandez MD Other Provider Active Dr. Milton Bergeron , DO Attending Provider, Other Pro vider Active Dr. Emile Dumont , DO Other Provider Active Podiatry Doctor Relationship Specialty Start Date End Date Linda Parish MD [address] [place], [place] [address]25251 PCP - General Family Medicine 02/21/14 Meir Montalvo MD [address] [place], [place] 874051 Hematology/Oncology 03/04/23 Hafsa Mace RP [address] [place], [place] [id number] Transitional Care Pharmacist Pharmacy 08/26/23 09/25/23 Podiatry Doctor Relationship Specialty Start Date End Date Linda Parish MD [address] [place] [address] PCP - [facility] 02/21/14 Meir Montalvo MD [address] [place] [address] Hematology/Oncology 03/04/23 Hafsa Mace ty [address] [place] [address] Transitional Care Pharmacist Pharmacy 08/26/23 09/25/23 Podiatry Doctor Relationship Specialty Start Date End Date Linda Parish MD [address] [place], [place] 256111 PCP - General Family Medicine 02/21/14 Meir Montalvo MD [address] [place] [address] [phone] Hematology/Oncology 03/04/23 Hafsa Mace RPh [address] [place], [place] [id number] Transitional Care Pharmacist Pharmacy 08/26/23 09/25/23 Podiatry Doctor Relationship Specialty Start Date End Date Linda Parish MD [address] [place] [address] PCP - [facility] 02/21/14 Meir Montalvo MD [address] [place] [address] Hematology/Oncology 03/04/23 Hafsa Mace RPh [address] [place] [address] Transitional Care Pharmacist Pharmacy 08/26/23 09/25/23 Podiatry Doctor Relationship Specialty Start Date End Date Linda Parish MD [address] [place] [address] PCP - General Family Medicine 02/21/14 Meir Montalvo MD [address] [place], [place] [address] Hematology/Oncology 03/04/23 Hafsa Mace RPh [address] [place] [place], [place] [phone] Transitional Care Pharmacist Pharmacy 08/26/23 09/25/23 Podiatry Doctor Relationship Specialty Start Date End Date Linda Parish MD [address] [place] [address] PCP - General Family Medicine 02/21/14 Meir Montalvo MD [address] [place] [address] Hematology/Oncology 03/04/23 Hafsa Mace [facility] [address] [place] [address] Transitional Care Pharmacist Pharmacy 08/26/23 09/25/23 Podiatry Doctor Relationship Specialty Start Date End Date Linda Parish MD [address] [place] [address] PCP - General Family Medicine 02/21/14 Meir Montalvo MD [address] [place] [address] Hematology/Oncology 03/04/23 Hafsa Mace [facility] [address] [place] [address] Transitional Care Pharmacist Pharmacy 08/26/23 09/25/23 Podiatry Doctor Relationship Specialty Start Date End Date Linda Parish MD [address] [place] [address] PCP - General Family Medicine 02/21/14 Meir Montalvo MD [address] [place], [place] [address] Hematology/Oncology 03/04/23 Hafsa Mace RPh [address] [place] [address] Transitional Care Pharmacist Pharmacy 08/26/23 09/25/23 Podiatry Doctor Relationship Specialty Start Date End Date Linda Parish MD [address] [place] [address] PCP - General Family Medicine 02/21/14 Meir Montalvo MD [address] [place] [address] Hematology/Oncology 03/04/23 Hafsa Mace RPh [address] [place] [address] Transitional Care Pharmacist Pharmacy 08/26/23 09/25/23 Podiatry Doctor Relationship Specialty Start Date End Date Linda Parish MD [address] [place] [address] PCP - General Family Medicine 02/21/14 Meir Montalvo MD [address] [place] [address] Hematology/Oncology 03/04/23 Hafsa Mace RPh [address] [place] [address] Transitional Care Pharmacist Pharmacy 08/26/23 09/25/23 Podiatry Doctor Relationship Specialty Start Date End Date Linda Parish MD [address] [place] [address] PCP - General Family Medicine 02/21/14 Meir Montalvo MD [address] [address] Hematology/Oncology 03/04/23 Hafsa Mace RPh [address] [place] [address] Transitional Care Pharmacist Pharmacy 08/26/23 09/25/23 Podiatry Doctor Relationship Specialty Start Date End Date Linda Parish MD [address] [place] [address] PCP - General Family Medicine 02/21/14 Meir Montalvo MD [address] [place] [address] Hematology/Oncology 03/04/23 Hafsa Mace RPh [address] [place] [address] Transitional Care Pharmacist Pharmacy 08/26/23 09/25/23 Podiatry Doctor Relationship Specialty Start Date End Date Linda Parish MD [address] [place] [address] PCP - General Family Medicine 02/21/14 Meir Montalvo MD [address] [facility] [address] Hematology/Oncology 03/04/23 Hafsa Mace RPh [address] [place] [address] Transitional Care Pharmacist Pharmacy 08/26/23 09/25/23 Podiatry Doctor Relationship Specialty Start Date End Date Linda Parish MD [address] [place] [address] PCP - General Family Medicine 02/21/14 Meir Montalvo MD [address] [place], [place] 15[address]84 [phone] Hematology/Oncology 03/04/23 Hafsa Mace [facility] [address] [place] [address] Transitional Care Pharmacist Pharmacy 08/26/23 09/25/23 Podiatry Doctor Relationship Specialty Start Date End Date Linda Parish MD [address] [place] [address] PCP - General Family Medicine 02/21/14 Meir Montalvo MD [address] [place] [address] Hematology/Oncology 03/04/23 Podiatry Doctor Relationship Specialty Start Date End Date Linda Parish MD [address] [place] [address] PCP - General Family Medicine 02/21/14 Meir Montalvo MD [address] [place] [address] Hematology/Oncology 03/04/23 Podiatry Doctor Relationship Specialty Start Date End Date Linda Parish MD [address] [place] [address] PCP - General Family Medicine 02/21/14 Meir Montalvo MD [address] [place] [address] Hematology/Oncology 03/04/23 Podiatry Doctor Relationship Specialty Start Date End Date Linda Parish MD [address] [place] [address] PCP - General Family Medicine 02/21/14 Meir Montalvo MD [address] [place] [address] Hematology/Oncology 03/04/23 Podiatry Doctor Relationship Specialty Start Date End Date Linda Parish MD [address] [place] [address] PCP - General Family Medicine 02/21/14 Meir Montalvo MD [address] [place] [address] Hematology/Oncology 03/04/23 Podiatry Doctor Relationship Specialty Start Date End Date Linda Parish MD [address] [place] [address] PCP - General Family Medicine 02/21/14 Meir Montalvo MD [address] [place] [address] Hematology/Oncology 03/04/23 Podiatry Doctor Relationship Specialty Start Date End Date Linda Parish MD [address] [place] [address] PCP - General Family Medicine 02/21/14 Meir Montalvo MD [address] [place] [address] Hematology/Oncology 03/04/23 Ju Edwards DO [address] [place] [address] Cardiology 10/28/23 [place] [address] [place], [place] [phone] Vascular Surgery 10/28/23 Podiatry Doctor Relationship Specialty Start Date End Date Linda Parish MD [address] [place] [address] PCP - General Family Medicine 02/21/14 Meir Montalvo MD [address] [place] [address] Hematology/Oncology 03/04/23 Ju Edwards DO [address] [place] [address] Cardiology 10/28/23 [place] [address] [address] [place], [place] 7183226 Vascular Surgery 10/28/23 Podiatry Doctor Relationship Specialty Start Date End Date Linda Parish MD [address] [place] [address] PCP - General Family Medicine 02/21/14 Meir Montalvo MD [address] [place] [address] Hematology/Oncology 03/04/23 Ju Edwards DO [address] [place] [address] Cardiology 10/28/23 [place] [address] [place], [place] [id number] Vascular Surgery 10/28/23 Podiatry Doctor Relationship Specialty Start Date End Date Linda Parish MD [address] [place] [address] PCP - General Family Medicine 02/21/14 Meir Montalvo MD [address] [facility] [address] Hematology/Oncology 03/04/23 Ju Edwards DO [address] [place] [address] Cardiology 10/28/23 [place] [address] [place], [place] 8233426 Vascular Surgery 10/28/23 Podiatry Doctor Relationship Specialty Start Date End Date Linda Parish MD [address] [place] [address] PCP - General Family Medicine 02/21/14 Meir Montalvo MD [address] [facility] [place] [address] Hematology/Oncology 03/04/23 Ju Edwards DO [address] [place] [address] Cardiology 10/28/23 [place] [address] [place], [place] 5622226 Vascular Surgery 10/28/23 Podiatry Doctor Relationship Specialty Start Date End Date Linda Parish MD [address] [place], [place] 586041 PCP - General Family Medicine 02/21/14 Meir Montalvo MD [address] [place] [address] Hematology/Oncology 03/04/23 Ju Edwards DO [address] [place] [address] Cardiology 10/28/23 [place] [address] [place], [place] 9025326 Vascular Surgery 10/28/23 Podiatry Doctor Relationship Specialty Start Date End Date Linda Parish MD [address] [place] [address] PCP - General Family Medicine 02/21/14 Meir Montalvo MD [address] [facility] [address] Hematology/Oncology 03/04/23 Ju Edwards DO [address] [place] [address] Cardiology 10/28/23 [place] [address] [place] [address] Vascular Surgery 10/28/23 Podiatry Doctor Relationship Specialty Start Date End Date Linda Parish MD [address] [place] [address] PCP - General Family Medicine 02/21/14 Meir Montalvo MD [address] [place] [address] Hematology/Oncology 03/04/23 Ju Edwards DO [address] [place] [address] Cardiology 10/28/23 [place] [address] [place] [address] Vascular Surgery 10/28/23 Podiatry Doctor Relationship Specialty Start Date End Date Linda Parish MD [address] [place] [address] PCP - General Family Medicine 02/21/14 Radha Ruiz MD [address] [place] [address] Hematology/Oncology 07/22/22 03/03/23 Podiatry Doctor Relationship Specialty Start Date End Date Linda Parish MD [address] [place], [place] 595771 PCP - General Family Medicine 02/21/14 Meir Montalvo MD [address] [place] [address] Hematology/Oncology 03/04/23 Ju Edwards DO [address] [place] [address] Cardiology 10/28/23 [place] [address] [place], [place] 4879126 Vascular Surgery 10/28/23 Larwence Maria MD [address] [place], [place] [id number] General Surgery 01/26/24 Podiatry Doctor Relationship Specialty Start Date End Date Linda Parish MD [address] [place] [address] PCP - General Family Medicine 02/21/14 Meir Montalvo MD [address] [place] [address] Hematology/Oncology 03/04/23 Ju Edwards DO [address] [place] [address] Cardiology 10/28/23 [place] [address] [place] [address] Vascular Surgery 10/28/23 Lawrence Maria MD [address] [place], [place] [id number] General Surgery 01/26/24 Podiatry Doctor Relationship Specialty Start Date End Date Linda Parish MD [address] [place] [address] PCP - General Family Medicine 02/21/14 Podiatry Doctor Relationship Specialty Start Date End Date Linda Parish MD [address] [place], [place] 110341 PCP - General Family Medicine 02/21/14 Podiatry Doctor Relationship Specialty Start Date End Date Linda Parish MD [address] [place], [place] 606151 PCP - General Family Medicine 02/21/14 Meir Montalvo MD [address] [place], [place] [address] Hematology/Oncology 03/04/23 Ju Edwards DO [facility] [place] [address] Cardiology 10/28/23 [place] [address] [place], [place] 6674026 Vascular Surgery 10/28/23 Lawrence Maria MD [address] [address] General Surgery 01/26/24 Podiatry Doctor Relationship Specialty Start Date End Date Linda Parish MD [address] [place], [place] 717311 PCP - General Family Medicine 02/21/14 Meir Montalvo MD [address] [place] [address] Hematology/Oncology 03/04/23 Ju Edwards DO [address] [place] [address] Cardiology 10/28/23 [place] [address] [place], [place] 8472326 Vascular Surgery 10/28/23 Lawrence Maria MD [address] [place], [place] [id number] General Surgery 01/26/24 Podiatry Doctor Relationship Specialty Start Date End Date Linda Parish MD [address] [place] [address] PCP - General Family Medicine 02/21/14 Meir Montalvo MD [address] [place] [address] Hematology/Oncology 03/04/23 Ju Edwards DO [address] [place] [address] Cardiology 10/28/23 [place] [address] [place] [address] Vascular Surgery 10/28/23 Lawrence Maria MD [address] [facility] [address] [place], [place] 14724[address] General Surgery 01/26/24 Podiatry Doctor Relationship Specialty Start Date End Date Linda Parish MD [address] [place] [address] PCP - General Family Medicine 02/21/14 Meir Montalvo MD [address] [address] Hematology/Oncology 03/04/23 Ju Edwards DO [address] [place] [address] Cardiology 10/28/23 [place] [address] [place], [place] 8050826 Vascular Surgery 10/28/23 Lawrence Maria MD [address] [place], [place] [id number] General Surgery 01/26/24 Podiatry Doctor Relationship Specialty Start Date End Date Linda Parish MD [address] [place] [address] PCP - General Family Medicine 02/21/14 Meir Montalvo MD [address] [facility] [place] [address] Hematology/Oncology 03/04/23 Ju Edwards DO [address] [place] [address] Cardiology 10/28/23 [place] [address] [place], [place] 9610126 Vascular Surgery 10/28/23 Lawrence Maria MD [address] [place], [place] [id number] General Surgery 01/26/24 Podiatry Doctor Relationship Specialty Start Date End Date Linda Parish MD [address] [place], [place] 395771 PCP - General Family Medicine 02/21/14 Meir Montalvo MD [address] [place] [address] Hematology/Oncology 03/04/23 Ju Edwards DO [address] [place] [address] Cardiology 10/28/23 [place] [address] [place], [place] 3526326 Vascular Surgery 10/28/23 Lwarence Maria MD [address] [address] General Surgery 01/26/24 Podiatry Doctor Relationship Specialty Start Date End Date Linda Parish MD [address] [place] [address] PCP - General Family Medicine 02/21/14 Meir Montalvo MD [address] [place] [address] Hematology/Oncology 03/04/23 Ju Edwards DO [address] [place] [address] Cardiology 10/28/23 [place] [address] [place], [place] 4327626 Vascular Surgery 10/28/23 Lawrence Maria MD [address] [place], [place] [id number] General Surgery 01/26/24 Susana Walton, ROCAEL.SIGNAL SUPERVISOR [address] [place], [place] 868921 Financial Aids Officer Family Medicine 04/10/24 Camille Conrad APARTMENT MAINTENANCE WORKER.SIGNAL SUPERVISOR [address] [place] [address] Financial Aids Officer [facility] 04/10/24 Podiatry Doctor Relationship Specialty Start Date End Date Linda Parish MD [address] [place], [place] 082101 PCP - General Family Medicine 02/21/14 Meir Montalvo MD [address] [place] [address] Hematology/Oncology 03/04/23 uJ Edwards DO [address] [place] [address] Cardiology 10/28/23 [place] [address] [place] [address] Vascular Surgery 10/28/23 Lawrence Maria MD [address] [place], [place] [id number] General Surgery 01/26/24 Susana Walton, ROCAEL.SIGNAL SUPERVISOR [address] [place], [place] 394081 Financial Aids Officer [facility] 04/10/24 Camille Conrad APRN.SIGNAL SUPERVISOR [address] [place], [place] 286191 Financial Aids Officer [facility] 04/10/24 Podiatry Doctor Relationship Specialty Start Date End Date Linda Parish MD [address] [place], [place] 624441 PCP - General Family Medicine 02/21/14 Meir Montalvo MD [address] [place], [place] 485471 Hematology/Oncology 03/04/23 Ju Edwards DO [address] [place] [address] Cardiology 10/28/23 [place] [address] [place], [place] 3571226 Vascular Surgery 10/28/23 Lawrence Maria MD [address] [address] General Surgery 01/26/24 Susana Walton APRN.SIGNAL SUPERVISOR [address] [place] [address] Financial Aids Officer [facility] 04/10/24 Camille Conrad APRN.SIGNAL SUPERVISOR [address] [place] [address] Financial Aids Officer [facility] 04/10/24 Podiatry Doctor Relationship Specialty Start Date End Date Linda Parish MD [address] [place] [address] PCP - General Family Medicine 02/21/14 Meir Montalvo MD [address] [place] [address] Hematology/Oncology 03/04/23 Ju Edwards DO [address] [place] [address] Cardiology 10/28/23 [place] [address] [place], [place] 5081526 Vascular Surgery 10/28/23 Lawrence Maria MD [address] [id number] General Surgery 01/26/24 Susana Walton APRN.SIGNAL SUPERVISOR [address] [place], [place] 179801 Financial Aids Officer Family Medicine 04/10/24 Camille Conrad APARTMENT MAINTENANCE WORKER.SIGNAL SUPERVISOR [address] [place] [address] Financial Aids Officer Family [facility] 04/10/24 Podiatry Doctor Relationship Specialty Start Date End Date Linda Parish MD [address] [place] [address] PCP - General Family Medicine 02/21/14 Meir Montalvo MD [address] [place] [address] Hematology/Oncology 03/04/23 Ju Edwards DO [address] [place] [address] Cardiology 10/28/23 [place] [address] [place], [place] 9707726 Vascular Surgery 10/28/23 Lawrence Maria MD 1 [facility] [address] [place] [address] General Surgery 01/26/24 Susana Walton APRN.SIGNAL SUPERVISOR [address] [place] [address] Financial Aids Officer Family Medicine 04/10/24 Camille Conrad APRN.SIGNAL SUPERVISOR [address] [place] [address] Financial Aids Officer Family [facility] 04/10/24 Podiatry Doctor Relationship Specialty Start Date End Date Linda Parish MD [address] [place] [address] PCP - General Family Medicine 02/21/14 Meri Montalvo MD [address] [place] [address] Hematology/Oncology 03/04/23 Ju Edwards DO [address] [place] [address] Cardiology 10/28/23 [place] [address] [place], [place] 0165926 Vascular Surgery 10/28/23 Lawrence Maria MD [address] [place], [place] [id number] General Surgery 01/26/24 Susana Walton, ROCAEL.SIGNAL SUPERVISOR [address] [place], [place] 307131 Financial Aids Officer Family Medicine 04/10/24 Camille Conrad APARTMENT MAINTENANCE WORKER.SIGNAL SUPERVISOR [address] [place] [address] Financial Aids Officer [facility] 04/10/24 Podiatry Doctor Relationship Specialty Start Date End Date Linda Parish MD [address] [place], [place] 314441 PCP - General Family Medicine 02/21/14 Meir Montalvo MD [address] [place] [address] Hematology/Oncology 03/04/23 Ju Edwards DO [address] [place] [address] Cardiology 10/28/23 [place] [address] [place] [address] Vascular Surgery 10/28/23 Lawrence Maria MD [address] [place], [place] [id number] General Surgery 01/26/24 Susana Walton, ROCAEL.SIGNAL SUPERVISOR [address] [place], [place] 340371 Financial Aids Officer [facility] 04/10/24 Camille Conrad APRN.SIGNAL SUPERVISOR [address] [place], [place] 817051 Financial Aids Officer [facility] 04/10/24 Podiatry Doctor Relationship Specialty Start Date End Date Linda Parish MD [address] [place], [place] 688451 PCP - General Family Medicine 02/21/14 Meir Montalvo MD [address] [place], [place] 507621 Hematology/Oncology 03/04/23 Ju Edwards DO [address] [place] [address] Cardiology 10/28/23 [place] [address] [place], [place] 9644226 Vascular Surgery 10/28/23 Lawrence Maria MD [address] [address] General Surgery 01/26/24 Susana Walton APRN.SIGNAL SUPERVISOR [address] [place] [address] Financial Aids Officer [facility] 04/10/24 Camille Conrad APRN.SIGNAL SUPERVISOR [address] [place] [address] Financial Aids Officer [facility] 04/10/24 Podiatry Doctor Relationship Specialty Start Date End Date Linda Parish MD [address] [place] [address] PCP - General Family Medicine 02/21/14 Meir Montalvo MD [address] [place] [address] Hematology/Oncology 03/04/23 Ju Edwards DO [address] [place] [address] Cardiology 10/28/23 [place] [address] [place], [place] 2806726 Vascular Surgery 10/28/23 Lawrence Maria MD [address] [id number] General Surgery 01/26/24 Susana Walton APRN.SIGNAL SUPERVISOR [address] [place], [place] 909501 Financial Aids Officer Family Medicine 04/10/24 Camille Conrad APARTMENT MAINTENANCE WORKER.SIGNAL SUPERVISOR [address] [place] [address] Financial Aids Officer [facility] 04/10/24 Podiatry Doctor Relationship Specialty Start Date End Date Linda Parish MD [address] [place] [address] PCP - General Family Medicine 02/21/14 Meir Montalvo MD [address] [place] [address] Hematology/Oncology 03/04/23 Ju Edwards DO [address] [place] [address] Cardiology 10/28/23 [place] [address] [place] [address] Vascular Surgery 10/28/23 Lawrence Maria MD [address] [facility] [address] [place] [address] General Surgery 01/26/24 Susana Walton APRN.SIGNAL SUPERVISOR [address] [place] [address] Financial Aids Officer Family Medicine 04/10/24 Camille Conrad APRN.SIGNAL SUPERVISOR [address] [place], [place] 476321 Financial Aids Officer Family Medicine 04/10/24 Team Status: Inactive Member Role Status Dates Dr. Linda Parish MD Primary Care Provider Active Start: September 06, 2024 End: September 06, 2024 Dr. Malinda Calvert MD Attending Provider Active Start: September 06, 2024 End: September 06, 2024 Dr. Malinda Calvert MD Referring Provider Active Start: September 06, 2024 End: September 06, 2024 Podiatry Doctor Relationship Specialty Start Date End Date Linda Parish MD [address] [place] [address] PCP - General Family Medicine 02/21/14 Meir Montalvo MD [address], [place] [id number] Hematology/Oncology 03/04/23 Ju Edwards DO [address] [place] [address] Cardiology 10/28/23 [place] [address] [facility] [place] [place] [id number] Vascular Surgery 10/28/23 Lawrence Maria MD [address] [facility] [address] [address] [place] [address] General Surgery 01/26/24 Susana Walton APRN.SIGNAL SUPERVISOR [address] [place], [place] [id number] Financial Aids Officer Family Medicine 04/10/24 Camille Conrad APRN.SIGNAL SUPERVISOR [address] [place], [place] [address] Financial Aids Officer Family Medicine 04/10/24 Podiatry Doctor Relationship Specialty Start Date End Date Linda Parish MD [address] [place], [place] [id number] PCP - General Family Medicine 02/21/14 Meir Montalvo MD [address] [place] [address] Hematology/Oncology 03/04/23 Ju Edwards DO [address] [place] [address] Cardiology 10/28/23 [place] [address] [place], [place] [phone] Vascular Surgery 10/28/23 Lawrence Maria MD [address] [place] [address] General Surgery 01/26/24 Susana Walton APRN.SIGNAL SUPERVISOR [address] [place] [address] Financial Aids Officer Family Medicine 04/10/24 Camille Conrad APRN.SIGNAL SUPERVISOR [address] [place] [address] Financial Aids Officer Family Medicine 04/10/24 Podiatry Doctor Relationship Specialty Start Date End Date Linda Parish MD [address] [place], [place] [id number] PCP - General Family Medicine 02/21/14 Meir Montalvo MD [address] [place] [address] Hematology/Oncology 03/04/23 Ju Edwards DO [address] [place] [address] Cardiology 10/28/23 [place] [address] [place], [place] [id number] Vascular Surgery 10/28/23 Lawrence Maria MD [address] [facility] [address] [place], [place] [id number] General Surgery 01/26/24 Susana Walton APRN.SIGNAL SUPERVISOR [address] [place], [place] [id number] Financial Aids Officer Family Medicine 04/10/24 Camille Conrad APRN.SIGNAL SUPERVISOR [address] [place], [place] [address] Financial Aids Officer [facility] 04/10/24 Podiatry Doctor Relationship Specialty Start Date End Date Linda Parish MD [address] [place], [place] [address] PCP - General Family Medicine 02/21/14 Meir Montalvo MD [address], [place] [id number] Hematology/Oncology 03/04/23 Ju Edwards DO [address] [place], [place] [id number] Cardiology 10/28/23 [place] [address] [place] [address] Vascular Surgery 10/28/23 Lawrence Maria MD [address] [address] General Surgery 01/26/24 Susana Walton APRN.SIGNAL SUPERVISOR [address] [place], [place] [id number] [facility] 04/[facility]24 Camille Conrad APRN.SIGNAL SUPERVISOR [address] [place], [place] [id number] [facility] 04/10/24 Care Team (unrecognized sect ion and content) Care Team Personnel Name: LINDA PARISH MD Member Role: Primary Care Physician Address: Address: [facility] [address] [place] [address]- Goals (unrecognized section and content) Goals may be documented in a n alternate section FOR RECORDS PERTAINING TO PATIENTS WHO ARE OR HAVE BEEN ENROLLED IN A CHEMICAL DEPENDENCY/SUBSTANCEABUSE PROGRAM, SOME INFORMATION MAY BE OMITTED. This clinical summary was aggregated from multiple sources. Caution should be exercised in using it in the provision of clinical care. This summary normalizes information from multiple sources, and as a consequence, information in this document may materially change the coding, format and clinical context of patient data. In addition, data may be omitted in some cases. CLINICAL DECISIONS SHOULD BE BASED ON THE PRIMARY CLINICAL RECORDS. [facility] [employer] [facility]. provides no warranty or guarantee of the accuracy or completeness of information in this document.
[2024-10-13 07:40] VITALS: BP 201/77; PULSE 48; RESP 16; TEMP 36.6; O2SAT 98
== END 2024-10-13 07:41 | disposition home or self-care (01) ==
PROVIDERS: Emergency Provider Emergency Medicine; PCP Family Medicine; Visit Provider Emergency Medicine
DX: H92.21 Otorrhagia, right ear (principal); Z87.891 Personal history of nicotine dependence; Z95.828 Presence of other vascular implants and grafts; I10 Essential (primary) hypertension; E78.5 Hyperlipidemia, unspecified; Z79.02 Long term (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 of antithrombotics/antiplatelets; K21.9 Gastro-esophageal reflux disease without esophagitis; Z79.899 Other long term (current) drug therapy; Z90.49 Acquired absence of other specified parts of digestive tract; I73.00 Raynaud's syndrome without gangrene
CPT/HCPCS: 99282; A4216

== ENCOUNTER 2024-12-11 18:42 | Emergency (ER) | payer MEDICARE, SELFPAY ==
[2024-12-11 18:43] VITALS: BP 158/71; PULSE 64; RESP 16; TEMP 36.7; O2SAT 100; BMI 25.4
--- NOTE | 2024-12-11 19:08 | ED.RN ---
states he had vascular surgery 11/23 at [facility]. today he had sudden onset of hot and cold sweats, feeling shaky and dizzy with chills. Also states contents of his ostomy bag are more liquid than his norm and he has had a stomachache. States he believes this could be because he hasn't taken Percocet, that is prescribed by pain management, for three days and his DrKush is out of town and unable to fill his prescription.
--- NOTE | 2024-12-11 19:08 | ED.RN ---
states he had vascular surgery 11/23 at [facility]. today he had sudden onset of hot and cold sweats, feeling shaky and dizzy with chills. Also states contents of his ostomy bag are more liquid than his norm and he has had a stomachache. States he believes this could be because he hasn't taken Percocet, that is prescribed by pain management, for three days and his DrKush is out of town and unable to fill his prescription.
[2024-12-11] MEDS: 0.9% Normal Saline (1000mL) 1,000 ML 999 ML IV (19:34)
--- NOTE | 2024-12-11 19:45 | CT_ITS ---
EXAM: CT Abdomen and Pelvis With Intravenous Contrast CLINICAL INDICATION: WEAKNESS, INCREASED OUTPUT FROM COLOSTOMY TECHNIQUE: Axial computed tomography images of the abdomen and pelvis with intravenous contrast. This CT exam was performed using one or more of the following dose reduction techniques: automated exposure control, adjustment of the mA and/or kV according to patient size, and/or use of iterative reconstruction technique. COMPARISON: No relevant prior studies available. FINDINGS: LUNG BASES: Unremarkable. No mass. No consolidation. ABDOMEN: LIVER: Hepatomegaly with fatty infiltration. GALLBLADDER AND BILE DUCTS: Unremarkable. No calcified stones. No ductal dilation. PANCREAS: Unremarkable. No mass. No ductal dilation. SPLEEN: Unremarkable. No splenomegaly. ADRENALS: Unremarkable. No mass. KIDNEYS AND URETERS: Unremarkable. No stones within either kidney. No hydronephrosis. STOMACH AND BOWEL: Fecal retention in the colon consistent with constipation. Left lower abdominal quadrant ileostomy. No obstruction. No mucosal thickening. PELVIS: APPENDIX: No findings to suggest acute appendicitis. BLADDER: Unremarkable. No mass. REPRODUCTIVE: Unremarkable as visualized. ABDOMEN and PELVIS: INTRAPERITONEAL SPACE: Unremarkable. No free air. No significant fluid collection. BONES/JOINTS: No acute fracture. No dislocation. SOFT TISSUES: Umbilical hernia containing fat. VASCULATURE: Scattered calcified atherosclerotic disease of aorta. No abdominal aortic aneurysm. LYMPH NODES: Unremarkable. No enlarged lymph nodes. CT/Abdomen/Pelvis W IV Cont ONLY IMPRESSION: 1. Hepatomegaly with fatty infiltration. 2. Fecal retention in the colon consistent with constipation. 3. Umbilical hernia containing fat. 4. No obstructive uropathy. Reading Location: [facility]
[2024-12-11 20:42] VITALS: BP 170/63; PULSE 45; RESP 18; O2SAT 100
[2024-12-11 22:00] VITALS: BP 156/66; PULSE 50; RESP 12; O2SAT 100
--- NOTE | 2024-12-11 22:24 | EKG12_ITS ---
Test Reason : BRADYCARDIA Blood Pressure : */* mmHG Vent. Rate : 45 BPM Atrial Rate : 45 BPM P-R Int : 188 ms QRS Dur : 82 ms QT Int : 488 ms P-R-T Axes : 42 1 53 degrees QTcB Int : 422 ms Sinus bradycardia Otherwise normal ECG 38 bpm Confirmed by Fish Mantilla ([id number]), script editor TIAN CURRY ([id number]) on 12/12/2024 11:43:45 AM Referred By: TB Confirmed By: Fish Mantilla
--- NOTE | 2024-12-11 22:24 | EKG12_ITS ---
Test Reason : BRADYCARDIA Blood Pressure : */* mmHG Vent. Rate : 45 BPM Atrial Rate : 45 BPM P-R Int : 188 ms QRS Dur : 82 ms QT Int : 488 ms P-R-T Axes : 42 1 53 degrees QTcB Int : 422 ms Sinus bradycardia Otherwise normal ECG 38 bpm Confirmed by Fish Mantilla ([id number]), photograph editor TIAN CURRY ([id number]) on 12/12/2024 11:43:45 AM Referred By: TB Confirmed By: Fish Mantilla
--- NOTE | 2024-12-11 22:24 | EX.ED.DYSGE1 ---
HPI History of Present Illness Chief Complaint: General Illness Narrative Narrative: Patient is a 63-year-old male with past medical history of peripheral arterial disease, hyperlipidemia, alcohol abuse, vertigo, polycythemia, hypertension, partial colectomy who presented to the emergency department with a chief complaint of chills, whole body aches, feeling upset stomach and overall not well. He states that he has had increased output such as diarrhea from his colostomy site as well which is also concerning for him. He states that he also ran out of his Percocet and states that he could be withdrawing from this as well as he has been on them for several months. He states that he missed his appointment secondary to being in the hospital recently for a revision of his graft in his leg for his peripheral arterial disease and notes that he tried to call his pain management doctor and they did not answer. [facility] Medical History Alcohol abuse Former tobacco use Diverticulitis of colon with perforation HLD (hyperlipidemia) PAD (peripheral artery disease) Chronic anemia History of GI bleed Anticoagulant long-term use Vertigo Polycythemia Arthritis GERD (gastroesophageal reflux disease) Hypertension Heart murmur Psoriasis Home Medications ?Medication ?Instructions ?Recorded ?Last Taken ?Type atorvastatin 20 mg tablet 40 mg PO QHS cholesterol 09/17/15 06/18/23 History nifedipine 30 mg tablet,extended 30 mg PO DAILY PRN raynauds 09/17/15 Unknown History release syndrome fluoxetine 20 mg capsule 20 mg PO DAILY mental health 09/20/20 06/18/23 History rizatriptan 10 mg disintegrating 10 mg PO PRN PRN Migraine Headache 09/20/20 Unknown History tablet amitriptyline 50 mg tablet 25 mg PO QHS headache 01/17/22 06/18/23 History ondansetron 4 mg disintegrating 4 mg PO Q8H PRN nausea and 01/17/22 Unknown Rx tablet vomiting #10 tabs gabapentin 300 mg capsule 300 mg PO Q8H neuropathy/nerve pain 06/07/23 06/18/23 History pantoprazole 40 mg tablet,delayed 40 mg PO DAILY heart burn 06/07/23 06/18/23 History release rivaroxaban 20 mg tablet (Xarelto) 20 mg PO QPM blood thinner 06/07/23 06/18/23 22:00 History iron 150 mg-vit C 60 mg-folate 1 1 tab PO DAILY supplement #60 tabs 06/10/23 06/18/23 Rx [id number] tablet (Niferex (Sumalate-Quatrefolic)) oxycodone-acetaminophen 5 mg-325 1 tab PO BID PRN pain 06/19/23 06/19/23 History mg tablet aspirin 81 mg chewable tablet 1 tab PO QPM 08/18/23 Unknown History hydrocodone-acetaminophen 5-325mg 1 tab PO BID 08/18/23 Unknown History 5mg-325mg polysaccharide iron complex 150 mg 150 mg PO DAILY anemia 08/18/23 Unknown History iron capsule tizanidine 4 mg tablet 4 mg PO QHS PRN muscle spasm 08/18/23 Unknown History Allergy/AdvReac Type Severity Reaction Status Date / Time verapamil Allergy Rash Verified 12/11/24 18:43 Family History Mother Heart disease Hypertension Father Diabetes Surgical History History of creation of ostomy S/P partial colectomy History of vascular surgery Hx of cardiac catheterization Social History household members: spouse Smoking Status: Former smoker how long ago did patient quit smoking: Quit 04/2023. alcohol intake: current alcohol intake frequency: 3 or more drinks per day Alcohol type: beer and hard liquor details: At least 3 beers (12 oz)/night, occasionally also Paul/Coke. substance use type: does not use ROS ROS ED ROS Narrative Constitutional: Complains of whole body aches, chills, shakiness and overall not feeling well Eyes: Denies any double vision blurry Cardiovascular: Denies chest pain or palpitations Respiratory: Denies coughing wheezing shortness of breath Abdomen: Denies abdominal pain complains of diarrhea in his colostomy, denies any dark tarry stools denies blood in stool : Denies any urinary symptoms Neurological: Complains of generalized weakness and not feeling well denies any numbness or tingling that is new Musculoskeletal: Denies back pain Skin: Denies any rashes or lesions EXAM Physical Exam Narrative Exam Narrative: General: Patient was lying in bed rest comfortably did not appear to be acute distress Head: Atraumatic, normocephalic Eyes: PERRL bilaterally, EOMI bilateral, no conjunctival injection noted Neck: Soft, supple, trachea midline Cardiovascular: Regular rate and rhythm no murmurs gallops rubs noted Respiratory: Clear to auscultation bilaterally no rales rhonchi or wheeze noted Abdomen: Soft, nondistended, no tenderness palpation, colostomy site intact no concern for infection at this point time Extremities: +4/5 strength noted in the bilateral lower extremities, radial pulses +2/4 in the bilateral extremities, no pedal edema on exam Neurological: Patient following commands and that he was at [facility] years 2024 sensation grossly intact Skin: Warm, dry, intact no rashes lesions noted, surgical site from graft revision is well-healing and no concern for infection at this point time Const Vital Signs: 12/11/24 18:43 12/11/24 19:05 12/11/24 20:42 Temperature 98.1 F Temperature Source Oral Pulse Rate 64 45 L Respiratory Rate 16 18 Respiratory Effort Normal Respiratory Pattern Normal Blood Pressure 158/71 H 170/63 H Blood Pressure Mean 100 98 Pulse Ox 100 100 Oxygen Delivery Method Room Air Room Air MDM MDM MDM Narrative Medical decision making narrative: Patient is a 63-year-old male who presented to the emergency department the chief complaint of generalized not feeling well as well as diarrhea in his colostomy site. On the differential diagnose includes but not limited to bowel obstruction, viral gastroenteritis, constipation, electrolyte abnormality. Once the workup is obtained reviewed he will be reevaluated Patient blood work was reviewed on his phone as he had this drawn earlier today through the [facility] and MyChart was reviewed and CBC showed a mild leukocytosis, hemoglobin stable. Patient's INR was noted be 2.6. Patient's kidney function was normal. Electrolytes were normal as well. I added on his CT abdomen pelvis with his concern for diarrhea in his colostomy. Patient says CT and pelvis with IV contrast showed hepatomegaly with fatty infiltration fecal retention in the colon consistent with constipation umbilical hernia containing fat no obstructive uropathy. Nursing notified us that he became bradycardic EKG was obtained which showed sinus bradycardia with a WA interval of 188. Patient remains asymptomatic blood pressure is normal with this. Discussed results with the patient and he was advised that he needs to use MiraLAX for his constipation or other stool softening agent. He is advised to follow-up his doctor in outpatient setting. As he is in pain management cannot give him any narcotics. He states that he is feeling better after the morphine that was given to him as well as Zofran. He is advised to return with worsening symptoms or concerns. He is agreeable this plan all question concerns answered he is discharged home in stable condition. Radiography Diagnostic Testing: Clinical Impression(s) from Imaging Studies Abdomen/Pelvis CT 12/11/24 19:45 IMPRESSION: 1. Hepatomegaly with fatty infiltration. 2. Fecal retention in the colon consistent with constipation. 3. Umbilical hernia containing fat. 4. No obstructive uropathy. Reading Location: [id number] Discharge Plan Triage Chief Complaint: General Illness ED Provider: Brock Montiel Dx/Rx/DC Orders Clinical Impression: Peripheral vascular disease, Constipation, Diarrhea, History of colostomy Prescriptions: No Action atorvastatin 20 MG tablet 40 mg PO QHS nifedipine 30 MG tablet extended release 30 mg PO DAILY PRN (Reason: raynauds syndrome) rizatriptan 10 mg tablet,disintegrating 10 mg PO PRN PRN (Reason: Migraine Headache) Patient Comments: TAKE 1 TABLET BY MOUTH NEEDED for migraine, may repeat in 2 (TWO) hours if needed fluoxetine 20 mg capsule 20 mg PO DAILY amitriptyline 50 mg tablet 25 mg PO QHS Patient Comments: 25mg ondansetron 4 mg tablet,disintegrating 4 mg PO Q8H PRN (Reason: nausea and vomiting) Qty: 10 0RF Xarelto 20 mg tablet 20 mg PO QPM gabapentin 300 mg capsule 300 mg PO Q8H pantoprazole 40 mg tablet,delayed release (DR/EC) 40 mg PO DAILY Patient Comments: TAKE 1 TABLET BY MOUTH DAILY before BREAKFAST. take on empty stomach 30 MINUTES before meal Niferex (Sumalate-Quatrefolic) 150 mg iron- 60 mg-1 mg tablet 1 tab PO DAILY Qty: 60 0RF oxycodone-acetaminophen 5-325 mg tablet 1 tab PO BID PRN (Reason: pain) aspirin 81 mg tablet,chewable 1 tab PO QPM hydrocodone-acetaminophen 5-325 mg tablet 1 tab PO BID polysaccharide iron complex 150 mg iron capsule 150 mg PO DAILY tizanidine 4 mg tablet 4 mg PO QHS PRN (Reason: muscle spasm) Primary Care Provider: Kenroy Larry Referrals: Kenroy Larry MD [Primary Care Provider] - Activity Restrictions/Additional Instructions: Use MiraLAX or other stool softening agent as your CT did show constipation. Continue supportive care with ensuring adequate hydration with water, Powerade/Gatorade, Pedialyte etc. Return with worsening symptoms or other concerns. Print Language: [place]gu[place] Disposition Disposition: Home, Self Care
[2024-12-11 22:29] VITALS: BP 156/66; PULSE 50; RESP 12; TEMP 36.9; O2SAT 100
== END 2024-12-11 22:42 | disposition home or self-care (01) ==
PROVIDERS: Emergency Provider Emergency Medicine; PCP Family Medicine; Visit Provider Emergency Medicine
DX: I73.9 Peripheral vascular disease, unspecified (principal); R19.7 Diarrhea, unspecified; K59.00 Constipation, unspecified; Z87.891 Personal history of nicotine dependence
CPT/HCPCS: 74177; 93005; 96361; 96374; 96375; 99284; Q9967; A4216; J2405

== ENCOUNTER → 2025-03-01 | Outpatient (CLI) | payer MEDICARE, SELFPAY ==
[2025-03-03 05:07] LABS: QNTFERON TB Mitogen Value > 10.00 IU/mL (.); QNTFERON TB Nil Value 0.05 IU/mL (.); QNTFERON TB1+ Ag Value 0.05 IU/mL (.); QNTFERON TB2+ Ag Value 0.05 IU/mL (.); QNTIFERON TB Positive Criteria Negative (Negative)
== END | disposition home or self-care (01) ==
LOC: MTLAB 16:25
PROVIDERS: PCP Family Medicine; Referring Provider Physician Assistant; Visit Provider Physician Assistant
DX: L40.0 Psoriasis vulgaris (principal); M25.50 Pain in unspecified joint; L29.89 Other pruritus; Z79.899 Other long term (current) drug therapy
CPT/HCPCS: 36415; 86480

== ENCOUNTER 2025-03-10 11:35 | Emergency (ER) | payer MEDICARE, SELFPAY ==
[2025-03-10 11:37] VITALS: BP 196/88; RESP 18; TEMP 36.6; BMI 24.1
[2025-03-10] MEDS: 0.9% Normal Saline (1000mL) 1,000 ML 999 ML IV (12:07)
[2025-03-10 12:15] LABS: Hematocrit 39.9 % (40-54); Hemoglobin 12.2 g/dL (13.0-16.5); Immature Granulocytes Count 0.050 X10^3/uL (0.0-0.0); Mean Corp Hgb Conc 30.6 g/dL (32-36); Mean Corpuscular Volume 81.8 fL (80-94); Mean Platelet Vol. 9.4 fl (6.2-12.0); NRBC Flagged by Analyzer 0 % (0-5); POSITIVE MORPHOLOGY YES; Platelet Count 344 K/mm3 (150-450); RBC Distribution Width CV 20.1 % (11.6-14.6); RBC Distribution Width SD 58.4 fl (35.1-43.9); Red Blood Count 4.88 M/mm3 (4.6-6.2); White Blood Count 8.7 K/mm3 (4.4-11.0)
--- NOTE | 2025-03-10 12:25 | CT_ITS ---
PROCEDURE: CT/Abdomen/Pelvis W IV Cont ONLY
[2025-03-10 12:51] LABS: Differential Indicated SCAN CRITERIA MET
[2025-03-10 12:52] LABS: Differential Comment SCANNED
[2025-03-10 12:53] LABS: Anion Gap 16 (5-15); BUN 15 mg/dL (4-19); BUN/Creat Ratio 13.8 RATIO (10-20); Calcium,Total 9.7 mg/dL (7.6-11.0); Carbon Dioxide 23.0 mmol/L (21.0-32.0); Chloride 100 mmol/L (98-108); Estimated Creatinine Clearance 83.72 ml/min (50-250); Glucose 115 mg/dL (70-99); Potassium 4.1 mmol/L (3.3-5.1)
[2025-03-10 13:51] VITALS: BP 149/71; PULSE 58; RESP 16; TEMP 36.7; O2SAT 97
[2025-03-10 13:54] LABS: Mucous, Urine 0 SEEN /hpf (<or=2+); Red Blood Cells-Urine 0 SEEN /hpf (0-5); Squamous Epithelial Cells - UA 0 SEEN /hpf (0-5)
[2025-03-10 14:05] LABS: Color, Urine Yellow (Yellow); Glucose, Dipstick Normal (Normal); Ketone-Dipstick Negative (Negative); Leukocyte Esterase-Dipstick Negative /ul (Negative); Nitrite-Dipstick Negative (Negative); Occult Blood-Urine Negative /ul (Negative); Protein-Dipstick 30 mg/dl (Negative); Specific Gravity, Urine 1.010 (1.002-1.030); Urine Bilirubin Dipstick Negative (Negative)
[2025-03-10 14:31] VITALS: BP 153/60; PULSE 64; RESP 18; O2SAT 100
--- NOTE | 2025-03-10 14:34 | ED.VIS.GI ---
HPI HPI - GI History of Present Illness Chief Complaint: Abd Pain Informant: patient and spouse/S.O. Narrative Narrative: 64-year-old male presenting to the emergency room with a chief complaint of abdominal pain. Patient states that he has a history of diverticulitis with perforation several years ago that resulted in the placement of an ostomy. He has not yet found a surgeon that he is comfortable with that we will reverse the ostomy. He states that today he had a rather sudden onset of pain in the abdomen that reminded of the same pain that he had with the perforation. The patient states that he suddenly filled up his ostomy. He denies any fevers. He states that he was recently on some antibiotics several weeks ago but does not recall the name of it. [facility] Medical History Alcohol abuse Former tobacco use Diverticulitis of colon with perforation HLD (hyperlipidemia) PAD (peripheral artery disease) Chronic anemia History of GI bleed Anticoagulant long-term use Vertigo Polycythemia Arthritis GERD (gastroesophageal reflux disease) Hypertension Heart murmur Psoriasis Home Medications ?Medication ?Instructions ?Recorded ?Last Taken ?Type atorvastatin 20 mg tablet 40 mg PO QHS cholesterol 09/17/15 06/18/23 History nifedipine 30 mg tablet,extended 30 mg PO DAILY PRN raynauds 09/17/15 Unknown History release syndrome fluoxetine 20 mg capsule 20 mg PO DAILY mental health 09/20/20 06/18/23 History rizatriptan 10 mg disintegrating 10 mg PO PRN PRN Migraine Headache 09/20/20 Unknown History tablet amitriptyline 50 mg tablet 25 mg PO QHS headache 01/17/22 06/18/23 History ondansetron 4 mg disintegrating 4 mg PO Q8H PRN nausea and 01/17/22 Unknown Rx tablet vomiting #10 tabs gabapentin 300 mg capsule 300 mg PO Q8H neuropathy/nerve pain 06/07/23 06/18/23 History pantoprazole 40 mg tablet,delayed 40 mg PO DAILY heart burn 06/07/23 06/18/23 History release rivaroxaban 20 mg tablet (Xarelto) 20 mg PO QPM blood thinner 06/07/23 06/18/23 22:00 History iron 150 mg-vit C 60 mg-folate 1 1 tab PO DAILY supplement #60 tabs 06/10/23 06/18/23 Rx [id number] tablet (Niferex (Sumalate-Quatrefolic)) oxycodone-acetaminophen 5 mg-325 1 tab PO BID PRN pain 06/19/23 06/19/23 History mg tablet aspirin 81 mg chewable tablet 1 tab PO QPM 08/18/23 Unknown History hydrocodone-acetaminophen 5-325mg 1 tab PO BID 08/18/23 Unknown History 5mg-325mg polysaccharide iron complex 150 mg 150 mg PO DAILY anemia 08/18/23 Unknown History iron capsule tizanidine 4 mg tablet 4 mg PO QHS PRN muscle spasm 08/18/23 Unknown History ciprofloxacin HCl 500 mg tablet 500 mg PO BID #14 TABLETS 03/10/25 Unknown Rx hydrocodone-acetaminophen 5-325mg 1 tab PO Q6H PRN pain 3 days #12 03/10/25 Unknown Rx 5mg-325mg tabs metronidazole 500 mg tablet 500 mg PO Q8H #21 tabs 03/10/25 Unknown Rx ondansetron 4 mg disintegrating 4 mg PO Q6H PRN PRN Nausea #15 tabs 03/10/25 Unknown Rx tablet Allergy/AdvReac Type Severity Reaction Status Date / Time verapamil Allergy Rash Verified 03/10/25 11:39 Family History Mother Heart disease Hypertension Father Diabetes Surgical History History of creation of ostomy S/P partial colectomy History of vascular surgery Hx of cardiac catheterization Social History household members: spouse Smoking Status: Former smoker how long ago did patient quit smoking: Quit 04/2023. alcohol intake: current alcohol intake frequency: 3 or more drinks per day Alcohol type: beer and hard liquor details: At least 3 beers (12 oz)/night, occasionally also Paul/Coke. substance use type: does not use ROS ROS ED Constitutional Constitutional ED: Denies chills, fever(s) or weight loss Eyes Eyes: Denies change in vision or diplopia ENT ENT ED: Denies ear pain, rhinorrhea or sore throat Cardiovascular Cardiovascular: Denies chest pain, orthopnea, palpitations or racing heartbeat Respiratory/Chest Respiratory/Chest: Denies cough, dyspnea or orthopnea Gastrointestinal Gastrointestinal: Reports abdominal pain, diarrhea and nausea; Denies vomiting Genitourinary Genitourinary ED: Denies dysuria, hematuria or urinary frequency Musculoskeletal Musculoskeletal: Reports back pain; Denies arthralgias, myalgias or neck pain Integumentary Denies abscess or rash Neurologic Neurologic: Denies headache(s) or weakness Psychiatric Psychiatric: Denies anxiety, depression, suicidal ideation or suicidal thoughts Endocrine Endocrinology: Denies polydipsia, polyphagia or polyuria Allergic/Immunologic Allergic/Immunologic ED: Denies mouth swelling, tongue swelling or urticaria EXAM Physical Exam Narrative Exam Narrative: Patient appears significantly uncomfortable in the bed sitting up on the side holding his abdomen. Const Vital Signs: 03/10/25 11:37 03/10/25 13:51 03/10/25 14:31 Temperature 98 F 98.1 F Temperature Source Temporal Oral Pulse Rate 58 L 64 Respiratory Rate 18 16 18 Blood Pressure 196/88 H 149/71 H 153/60 H Blood Pressure Mean 124 97 91 Pulse Ox 97 100 Oxygen Delivery Method Room Air Room Air Positive well nourished and well developed General Appearance ED: well developed HEENT Reports normocephalic, head/scalp atraumatic and moist mucous membranes Eyes PERRL and EOMs intact bilaterally Neck no lymphadenopathy, supple and no JVD Resp normal respiratory effort and clear to auscultation bilaterally Cardio regular rate, regular rhythm and no murmurs GI GI Narrative: Ostomy bag in place. Mildly tender diffusely throughout the abdomen. There is guarding without rebound Inspection: Negative for abdominal distention Auscultation: hyperactive bowel sounds Palpation: soft, tender and guarding; Negative for rebound tenderness present Back/Spine no CVA tenderness and normal ROM Extremity normal to inspection General Extremety ED: Negative for edema General Extremity: Negative for edema Neuro oriented x3 and CN's II-XII intact bilaterally Sensorium / Orientation: alert Motor Exam: strength 5/5 throughout Psych mental status grossly normal Mood & Affect: Negative for depressed or tearful Skin no rashes or lesions noted and no wounds MDM MDM MDM Narrative Medical decision making narrative: Differential diagnosis includes diverticulitis colitis perforated viscus intra-abdominal abscess bowel obstruction UTI kidney stones constipation Patient's white count is 8.7 hemoglobin 12.2 with a platelet count of 344. BMP shows a glucose of 115 creatinine 1.05. Urinalysis is negative. CT of the abdomen pelvis was obtained with IV contrast read by radiology reviewed by myself. Patient has findings consistent with a colitis of most of the colon to the level of the ostomy. A stool specimen was obtained. This is negative for C. difficile. Patient received pain medication and it is helping. He also received IV fluids. Patient was started on Cipro and Flagyl. I will write for pain and nausea medication at home. Family has been updated. I did discuss with them that some patients with colitis do need to be admitted to the hospital that he is not currently on antibiotics he does not have a significant leukocytosis he is not febrile I think it is very reasonable that we trial antibiotics for treatment at home. History & Record Review Discussion w/independent historian: Patient and Family Additional record(s) reviewed:: Prior inpatient record, Prior ED visit and Prior labs Lab Data Attestation: I reviewed the patient's lab results. Labs: Laboratory Results - last 24 hr 03/10/25 03/10/25 12:09 13:00 WBC 8.7 RBC 4.88 Hgb 12.2 L Hct 39.9 L MCV 81.8 MCH 25.0 L MCHC 30.6 L RDW Std Deviation 58.4 H RDW Coeff of Eze 20.1 H Plt Count 344 MPV 9.4 Immature Gran % (Auto) 0.600 Neut % (Auto) 60.8 Lymph % (Auto) 31.4 Jones % (Auto) 4.7 Eos % (Auto) 1.7 Baso % (Auto) 0.8 Absolute Neuts (auto) 5.3 Absolute Lymphs (auto) 2.74 Nucleated RBC % 0 Differential Comment SCANNED Sodium 139 Potassium 4.1 Chloride 100 Carbon Dioxide 23.0 Anion Gap 16 H BUN 15 Creatinine 1.05 Estim Creat Clear Calc 83.72 Est GFR (MDRD) Non-Af 80 BUN/Creatinine Ratio 13.8 Glucose 115 H Calcium 9.7 Urine Color Yellow Urine Clarity Clear Urine pH 7.0 Ur Specific [place] 1.010 Urine Protein 30 H Urine Glucose (UA) Normal Urine Ketones Negative Urine Occult Blood Negative Urine Nitrite Negative Urine Bilirubin Negative Urine Urobilinogen Normal Ur Leukocyte Esterase Negative Urine RBC 0 SEEN Urine WBC 0 SEEN Ur Squamous Epith Cells 0 SEEN Urine Bacteria 0 SEEN Urine Mucus 0 SEEN Radiography Diagnostic Testing: Clinical Impression(s) from Imaging Studies Abdomen/Pelvis CT 03/10/25 12:25 IMPRESSION: Status post left colostomy placement. Parastomal fat containing hernia measures 3.8 x 3.5x 3.4 cm. Diffuse edematous wall thickening of the upper half of the right colon, transverse colon, left and sigmoid colon to the level of the stoma consistent with acute colitis which can be infectious, inflammatory or ischemic.. Reading Location: [facility] Discharge Plan Triage Chief Complaint: Abd Pain Other Complaint: Lower Extremity Injury ED Provider: Nba Norris Dx/Rx/DC Orders Clinical Impression: Acute colitis, Abdominal pain, acute Instructions: Colitis Prescriptions: New hydrocodone-acetaminophen 5-325 mg tablet 1 tab PO Q6H PRN (Reason: pain) 3 Days Qty: 12 0RF metronidazole 500 mg tablet 500 mg PO Q8H Qty: 21 0RF ciprofloxacin HCl 500 mg tablet 500 mg PO BID Qty: 14 0RF ondansetron 4 mg tablet,disintegrating 4 mg PO Q6H PRN PRN (Reason: Nausea) Qty: 15 0RF No Action atorvastatin 20 MG tablet 40 mg PO QHS nifedipine 30 MG tablet extended release 30 mg PO DAILY PRN (Reason: raynauds syndrome) rizatriptan 10 mg tablet,disintegrating 10 mg PO PRN PRN (Reason: Migraine Headache) Patient Comments: TAKE 1 TABLET BY MOUTH NEEDED for migraine, may repeat in 2 (TWO) hours if needed fluoxetine 20 mg capsule 20 mg PO DAILY amitriptyline 50 mg tablet 25 mg PO QHS Patient Comments: 25mg ondansetron 4 mg tablet,disintegrating 4 mg PO Q8H PRN (Reason: nausea and vomiting) Qty: 10 0RF Xarelto 20 mg tablet 20 mg PO QPM gabapentin 300 mg capsule 300 mg PO Q8H pantoprazole 40 mg tablet,delayed release (DR/EC) 40 mg PO DAILY Patient Comments: TAKE 1 TABLET BY MOUTH DAILY before BREAKFAST. take on empty stomach 30 MINUTES before meal Niferex (Sumalate-Quatrefolic) 150 mg iron- 60 mg-1 mg tablet 1 tab PO DAILY Qty: 60 0RF oxycodone-acetaminophen 5-325 mg tablet 1 tab PO BID PRN (Reason: pain) aspirin 81 mg tablet,chewable 1 tab PO QPM hydrocodone-acetaminophen 5-325 mg tablet 1 tab PO BID polysaccharide iron complex 150 mg iron capsule 150 mg PO DAILY tizanidine 4 mg tablet 4 mg PO QHS PRN (Reason: muscle spasm) Primary Care Provider: Kenroy Larry Referrals: Kenroy Larry MD [Primary Care Provider, Medical] - 3-5 Days Print Language: Slovenian
[2025-03-10] MEDS: Ketorolac 30 MG/ML Syringe IV (16:04)
[2025-03-10 16:08] VITALS: BP 135/70; PULSE 60; RESP 18; TEMP 36.7; O2SAT 100
== END 2025-03-10 16:12 | disposition home or self-care (01) ==
LOC: ED 12:17
PROVIDERS: Emergency Provider Emergency Medicine; PCP Family Medicine; Visit Provider Emergency Medicine
DX: R10.9 Unspecified abdominal pain (principal); K52.9 Noninfective gastroenteritis and colitis, unspecified; Z87.891 Personal history of nicotine dependence; E78.5 Hyperlipidemia, unspecified; I10 Essential (primary) hypertension; Z79.899 Other long term (current) drug therapy; Z79.82 Long term (current) use of aspirin; K21.9 Gastro-esophageal reflux disease without esophagitis; Z90.49 Acquired absence of other specified parts of digestive tract
CPT/HCPCS: 74177; 80048; 81001; 85025; 87493; 87506; 96361; 96374; 96375; 99284; Q9967; A4216; J2405